=== PATIENT | male | born 1950 | race Caucasian/White ===

== ENCOUNTER 2016-04-17 11:41 | Inpatient (IN) | payer MEDICARE, OTHER ==
[~2016-04-17] VITALS: Ht 172.7 cm; Wt 80.4 kg
[~2016-04-17 11:41] MED LIST: ADVA250A INH; ALBU.5I NEB; ATOR40TA16 PO; BETA0.054 TOPICAL; COLA100C3 PO; FURO20TA PO; GABA800T PO; KAOP240C PO; METF1000 PO; METO50TA PO; PRED20 PO; SPIR25TA PO; THERM PO; VENTAER INH; VITA100T54 PO; WARF-58 PO; [UNRECOGNIZED DRUG - SUPPLY]
[2016-04-17 11:43] VITALS: BP 166/72; PULSE 87; RESP 12; TEMP 98.7; O2SAT 99
--- NOTE | 2016-04-17 16:03 | PD ---
HPI Chief Complaint: Skin Problem Time Seen by Provider: 15:01 Travel History International Travel<30 days: No Contact w/Intl Traveler<30days: No Traveled to known affect area: No History of Present Illness HPI This patient complains of a black and painful left great toe. Duration is one week. Started to get dark and black a week ago but has progressively worsened throughout. No injury. Denies fever. He has history of severe vascular disease. He's had bypass grafting and aortic bypass by Dr. Trevino he reports in 2013. He is on Coumadin for history of atrial fibrillation. He's had no chest pain or presyncopal symptoms. Accu-Chek 109. Symptoms severity is moderate to severe. No alleviating factors PFSH Past Medical History Hx Anticoagulant Therapy: Yes (WARFARIN) Arthritis: Yes Asthma: No Autoimmune Disease: No Anxiety: Yes Depression: Yes Heart Rhythm Problems: Yes Cancer: Yes (skin cancer LEFT WRIST) Cardiac Catheterization: Yes (CAD) Cardiovascular Problems: Yes (BYPASS) High Cholesterol: Yes Chemotherapy: No Chest Pain: Yes Congestive Heart Failure: Yes COPD: Yes Cerebrovascular Accident: Yes (TIA) Diabetes: Yes Diminished Hearing: No Endocrine: Yes Gastrointestinal Disorders: Yes GERD: No Genitourinary: Yes Headaches: No Hiatal Hernia: No Hypertension: Yes Immune Disorder: No Implanted Vascular Access Dvce: No Kidney Stones: Yes (25+ years ago) Musculoskeletal: Yes Neurologic: Yes Psychiatric: Yes Reproductive: No Respiratory: Yes Immunizations Current: Yes Migraines: No Radiation Therapy: No Renal Failure: No Seizures: Yes (as a child) Sickle Cell Disease: No Sleep Apnea: Yes Thyroid Disease: No Ulcer: No PNEUMOCCOCAL Vaccine (Year): 1 Past Surgical History Abdominal Surgery: Yes (aortic aneurysm repair) AICD: No Arteriovenous Shunt: No Cardiac Surgery: Yes (CABG x4 Mar 2014) Coronary Artery Bypass Graft: Yes Ear Surgery: No Endocrine Surgery: No Eye Surgery: No Genitourinary Surgery: No Gynecologic Surgery: No Insulin Pump: No Joint Replacement: No Neurologic Surgery: No Oral Surgery: No Pacemaker: No Thoracic Surgery: Yes Other Surgery: Yes (SKIN CANCER REMOVED) Social History Alcohol Use: Yes (2-6 BEERS DAILY) Tobacco Use: Yes (ONE PPD) Substance Use: No Allergies-Medications (Allergen,Severity, Reaction): Coded Allergies: Ceclor (Verified Allergy, Intermediate, rash, 04/17/16) Reported Meds & Prescriptions Reported Meds & Active Scripts Active Gabapentin 800 Mg Tab 800 Mg PO TID Ventolin Hfa 18 GM Inh (Albuterol Sulfate) 90 Mcg/Act Aer 2 Puff INH Q4-6H PRN Betamethasone Dipropionate Topical 0.05% Oint 1 Applic TOPICAL BID Warfarin 3 Mg Tab 3 Mg PO DAILY Szymanski 3 MG, M 3 MG, Tu 0 MG, W 3 MG, Th 3 MG, F 3 MG, Sa 3 MG Advair Diskus Inh (Fluticasone-Salmeterol Inh) 250-50 Mcg/Blist Aer 1 Puff INH BID Rinse mouth after use. Metformin (Metformin HCl) 1,000 Mg Tab 1,000 Mg PO BIDPC With meals Reported Vitamin B-1 (Thiamine HCl) 100 Mg Tab 100 Mg PO DAILY Colace (Docusate Sodium) 100 Mg Cap 100 Mg PO BID PRN Surfak (Docusate Calcium) 240 Mg Cap 240 Mg PO DAILY Albuterol Neb (Albuterol Sulfate) 2.5 Mg/0.5 Ml Neb 2.5 Mg NEB TID NEB PRN Note: The Albuterol Sulfate Inhalation Solution is concentrated and must be diluted. Read complete instructions carefully before using. Metoprolol Tartrate 50 Mg Tab 50 Mg PO BID Thera M Plus (Multivitamins/Minerals Therapeutic) 1 Tab 1 Tab PO DAILY Atorvastatin (Atorvastatin Calcium) 40 Mg Tab 40 Mg PO HS Spironolactone 25 Mg Tab 25 Mg PO DAILY Furosemide 20 Mg Tab 20 Mg PO DAILY Review of Systems General / Constitutional: No: Fever Eyes: No: Visual changes HENT: No: Headaches Cardiovascular: Positive: Edema, No: Chest Pain or Discomfort Respiratory: No: Shortness of Breath Gastrointestinal: No: Abdominal Pain Genitourinary: No: Dysuria Musculoskeletal: Positive: Edema, Pain Skin: No Rash Neurologic: Positive: Sensory Disturbance, No: Weakness Psychiatric: No: Depression Endocrine: No: Polydipsia Hematologic/Lymphatic: No: Easy Bruising Physical Exam Narrative GENERAL: Well-nourished, well-developed patient in no apparent distress. SKIN: Warm and dry. HEAD: Atraumatic. Normocephalic. EYES: Pupils equal and round. No scleral icterus. No injection or drainage. ENT: No nasal bleeding or discharge. Mucous membranes pink and moist. NECK: Trachea midline. No JVD. CARDIOVASCULAR: Regular rate and rhythm. No murmur appreciated. RESPIRATORY: No accessory muscle use. Clear to auscultation. Breath sounds equal bilaterally. GASTROINTESTINAL: Abdomen soft, non-tender, nondistended. Hepatic and splenic margins not palpable. Well-healed surgical scars. He is readily palpable femoral pulses bilaterally. MUSCULOSKELETAL: No obvious deformities. No clubbing. No cyanosis. No edema. Cannot palpate pulses in either foot probably due to significant edema. He does have readily dopplerable pulses in both feet, in both dorsalis pedis and posterior tibial locations. Patient's left great toe is entirely blackened. Medial aspect of the second toe is also black as is the webspace between toes # 1 and 2. There is a scant honey crusting in the region but no fluctuance or active drainage. Has symmetric hyperpigmentation stasis to the level of midshin NEUROLOGICAL: Awake and alert. No obvious cranial nerve deficits. Motor grossly within normal limits. Normal speech. PSYCHIATRIC: Appropriate mood and affect; insight and judgment normal. Data Data Last Documented VS Vital Signs Date Time Temp Pulse Resp B/P Pulse Ox O2 Delivery O2 Flow Rate FiO2 04/17/16 16:05 83 18 147/71 100 Room Air 04/17/16 11:43 98.7 Orders Complete Blood Count With Diff (04/17/16 15:08) Basic Metabolic Panel (Bmp) (04/17/16 15:08) Prothrombin Time / Inr (Pt) (04/17/16 15:08) Act Partial Throm Time (Ptt) (04/17/16 15:08) Blood Glucose (04/17/16 15:08) Iv Access Insert/Monitor (04/17/16 15:08) Enoxaparin Inj (Lovenox Inj) (04/17/16 17:15) Ondansetron Inj (Zofran Inj) (04/17/16 17:15) Morphine Inj (Morphine Inj) (04/17/16 17:15) Cta Runoff W Iv Contrast W 3d (04/17/16 ) Admit Order (Ed Use Only) (04/17/16 17:04) Labs Laboratory Tests Test 04/17/16 15:45 White Blood Count 10.5 TH/MM3 Red Blood Count 3.65 MIL/MM3 Hemoglobin 12.5 GM/DL Hematocrit 35.6 % Mean Corpuscular Volume 97.4 FL Mean Corpuscular Hemoglobin 34.3 PG Mean Corpuscular Hemoglobin 35.2 % Concent Red Cell Distribution Width 14.1 % Platelet Count 216 TH/MM3 Mean Platelet Volume 8.1 FL Neutrophils (%) (Auto) 79.6 % Lymphocytes (%) (Auto) 10.1 % Monocytes (%) (Auto) 7.7 % Eosinophils (%) (Auto) 2.1 % Basophils (%) (Auto) 0.5 % Neutrophils # (Auto) 8.3 TH/MM3 Lymphocytes # (Auto) 1.1 TH/MM3 Monocytes # (Auto) 0.8 TH/MM3 Eosinophils # (Auto) 0.2 TH/MM3 Basophils # (Auto) 0.1 TH/MM3 CBC Comment DIFF FINAL Differential Comment Prothrombin Time 20.4 SEC Prothromb Time International 1.8 RATIO Ratio Activated Partial 37.4 SEC Thromboplast Time Sodium Level 120 MEQ/L Potassium Level 5.8 MEQ/L Chloride Level 87 MEQ/L Carbon Dioxide Level 27.5 MEQ/L Anion Gap 6 MEQ/L Blood Urea Nitrogen 8 MG/DL Creatinine 0.70 MG/DL Estimat Glomerular Filtration 114 ML/MIN Rate Random Glucose 72 MG/DL Calcium Level 9.1 MG/DL [facility] Medical Decision Making Medical Screen Exam Complete: Yes Emergency Medical Condition: Yes Medical Record Reviewed: Yes Differential Diagnosis Ischemic foot, stent thrombosis, embolus Narrative Course I have reviewed the patient's electronic medical record. Comp located medical history. He has A. fib and CAD with stents and also bypass grafting history IV placed CBC looks normal Metabolic profile shows significant hyponatremia of 120 with normal creatinine. He has history of hyponatremia which is chronic and his last was 124 INR on Coumadin is 1.8 I reviewed the case in detail with Dr. Trevino his vascular surgeon. He recommends hospital admission to the medical service and he will be consulted. He recommends CTA of the extremities with runoff which I have ordered. He recommends Lovenox therapy which I have also ordered. I've given him something for pain. I placed a call to the medical residents to discuss for admission Diagnosis Primary Impression: Lower limb ischemia Additional Impression: Atrial fibrillation Qualified Code: I48.0 - Paroxysmal atrial fibrillation Admitting Information Admitting Physician Requests: Admit Umair Patten MD Apr 17, 2016 16:03
[2016-04-17 16:05] VITALS: BP 147/71; PULSE 83; RESP 18; O2SAT 100
[2016-04-17 16:20] LABS: AUTOMATED NEUTROPHIL # 8.3 TH/MM3 (1.8-7.7); BASOPHIL # 0.1 TH/MM3 (0-0.2); BASOPHIL % 0.5 % (0.0-2.0); EOSINOPHIL # 0.2 TH/MM3 (0-0.4); EOSINOPHIL % 2.1 % (0.0-4.0); HEMATOCRIT 35.6 % (39.0-51.0); HEMO FLAGS DIFF FINAL; LYMPH % 10.1 % (9.0-44.0); LYMPHOCYTE # 1.1 TH/MM3 (1.0-4.8); MEAN CELL VOLUME 97.4 FL (80.0-100.0); MEAN CORPUSCULAR HEMOGLOBIN 34.3 PG (27.0-34.0); MEAN CORPUSCULAR HGB CONC 35.2 % (32.0-36.0); MONO % 7.7 % (0.0-8.0); NEUT % 79.6 % (16.0-70.0); PLATELET COUNT 216 TH/MM3 (150-450); RED BLOOD COUNT 3.65 MIL/MM3 (4.50-5.90); RED CELL DISTRIBUTION WIDTH 14.1 % (11.6-17.2); WHITE BLOOD COUNT 10.5 TH/MM3 (4.0-11.0)
[2016-04-17 16:30] LABS: APTT (PATIENT) 37.4 SEC (24.3-30.1); INTERNATIONAL NORMALIZED RATIO 1.8 RATIO; PROTHROMBIN TIME - PATIENT 20.4 SEC (9.8-11.6)
[2016-04-17 16:48] LABS: BICARBONATE 27.5 MEQ/L (21.0-32.0); POTASSIUM 5.8 MEQ/L (3.5-5.1)
[2016-04-17] MEDS ORDERED: ONDANSETRON HCL 4 MG/2 ML VIAL IV ONE (17:15)
[2016-04-17] MEDS ORDERED: MORPHINE SULFATE 4 MG/ML INJ IV PUSH ONE (17:15)
[2016-04-17] MEDS ORDERED: ENOXAPARIN SODIUM 100 MG/ML SYRINGE SQ ONE (17:15)
--- NOTE | 2016-04-17 17:37 | HHI.HP ---
[facility] Service Family Medicine Primary Care Physician Bere Wood MD Admission Diagnosis necrotic L great toe, PAD Diagnoses: Chief Complaint: Black toe International Travel<30 Days: No Contact w/Intl Traveler<30days: No Known Affected Area: No History of Present Illness Patient is a 65-year-old male with a past medical history significant for PAD s/ p femoropopliteal bilateral, atrial fibrillation, CAD s/p CABG, and DM type II who presents today with a black toe. Patient states that his left great toe started looking darker about 2 weeks ago. For the past week it turned black. The toe is very painful, and he rates pain 10/10. The pain consists of a sharpness that comes and goes and a pain "that is always there" as well. He notes that the toe has started to leak a bloody fluid. He received morphine in the ED which is starting to help his pain. He follows with Dr. Trevino for extensive history of PAD. He denies any fever, chills, nausea, vomiting. He has had diarrhea for the past month that he describes as watery and nonbloody. Review of Systems Constitutional: DENIES: Fever, Chills Eyes: DENIES: Blurred vision Respiratory: COMPLAINS OF: Wheezing, DENIES: Cough, Shortness of breath Cardiovascular: DENIES: Chest pain Gastrointestinal: COMPLAINS OF: Diarrhea, DENIES: Abdominal pain, Black stools , Bloody stools, Constipation, Nausea, Vomiting Musculoskeletal: COMPLAINS OF: Muscle aches Integumentary: COMPLAINS OF: Abnormal pigmentation Hematologic/lymphatic: DENIES: Bruising Neurologic: DENIES: Headache Past Family Social History Past Medical History Cardiomyopathy- catheter July 2014 EF 25% patent bypass grafts. 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 GI bleed Atrial fibrillation, paroxysmal, on coumadin. History of intubation X 3 Childhood epilepsy Diabetes mellitus Tobacco abuse Questionable alcohol abuse Cardiology: Dr. Gary GI: Dr. Burgos Physiatry: Dr. Taveras Past Surgical History CABG x 3 Complex vascular surgery with Dr. 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 dieulafoy lesions fulguration - october 2014 Tonsillectomy Cholecystectomy Reported Medications Reported Meds & Active Scripts Active Gabapentin 800 Mg Tab 800 Mg PO TID Ventolin Hfa 18 GM Inh (Albuterol Sulfate) 90 Mcg/Act Aer 2 Puff INH Q4-6H PRN Betamethasone Dipropionate Topical 0.05% Oint 1 Applic TOPICAL BID Warfarin 3 Mg Tab 3 Mg PO DAILY Szymanski 3 MG, M 3 MG, Tu 0 MG, W 3 MG, Th 3 MG, F 3 MG, Sa 3 MG Advair Diskus Inh (Fluticasone-Salmeterol Inh) 250-50 Mcg/Blist Aer 1 Puff INH BID Rinse mouth after use. Metformin (Metformin HCl) 1,000 Mg Tab 1,000 Mg PO BIDPC With meals Reported Vitamin B-1 (Thiamine HCl) 100 Mg Tab 100 Mg PO DAILY Colace (Docusate Sodium) 100 Mg Cap 100 Mg PO BID PRN Surfak (Docusate Calcium) 240 Mg Cap 240 Mg PO DAILY Albuterol Neb (Albuterol Sulfate) 2.5 Mg/0.5 Ml Neb 2.5 Mg NEB TID NEB PRN Note: The Albuterol Sulfate Inhalation Solution is concentrated and must be diluted. Read complete instructions carefully before using. Metoprolol Tartrate 50 Mg Tab 50 Mg PO BID Thera M Plus (Multivitamins/Minerals Therapeutic) 1 Tab 1 Tab PO DAILY Atorvastatin (Atorvastatin Calcium) 40 Mg Tab 40 Mg PO HS Spironolactone 25 Mg Tab 25 Mg PO DAILY Furosemide 20 Mg Tab 20 Mg PO DAILY Allergies: Coded Allergies: Ceclor (Verified Allergy, Intermediate, rash, 04/17/16) Active Ordered Medications Current Medications Medications (Trade) Dose Ordered Sig/Lindsey Route Start Time Stop Time Status Last Admin (Lipitor) 40 mg HS PO 04/17/16 21:00 (Surfak) 240 mg DAILY PO 04/18/16 09:00 (Colace) 100 mg BID PRN PO 04/17/16 18:00 (Lasix) 20 mg DAILY PO 04/18/16 09:00 (Neurontin) 800 mg TID PO 04/17/16 18:00 (Lopressor) 50 mg BID PO 04/17/16 21:00 (Theragran M Tab) 1 tab DAILY PO 04/18/16 09:00 (Aldactone) 25 mg DAILY PO 04/18/16 09:00 (Vitamin B1) 100 mg DAILY PO 04/18/16 09:00 (Symbicort 160-4.5 Inh) 2 puff BID INH 04/17/16 21:00 (Narcan Inj) 0.4 mg UNSCH PRN IV 04/17/16 18:00 Family History Mother: of unknown cancer Father: of unknown cancer Social History Tobacco: 1ppd x 50 years Alcohol: 2-6 beers/day Drug Use: None Lives alone. Physical Exam Vital Signs Vital Signs Date Time Temp Pulse Resp B/P Pulse Ox O2 Delivery O2 Flow Rate FiO2 04/17/16 16:05 83 18 147/71 100 Room Air 04/17/16 11:43 98.7 87 12 166/72 99 Room Air Physical Exam GENERAL: This is an overweight male patient who appears to be in pain. SKIN: Cool and dry. Sloughing skin and hair loss on lower extremities bilaterally. Necrotic left great toe and half of left second toe. Some serous drainage present on second toe. HEAD: Atraumatic. Normocephalic. No temporal or scalp tenderness. EYES: Pupils equal round and reactive. Extraocular motions intact. No scleral icterus. No injection or drainage. ENT: Nose without bleeding, purulent drainage or septal hematoma. Throat without erythema, tonsillar hypertrophy or exudate. Uvula midline. Airway patent. NECK: Trachea midline. No JVD or lymphadenopathy. Supple, nontender, no meningeal signs. CARDIOVASCULAR: Regular rate and rhythm without murmurs, gallops, or rubs. RESPIRATORY: Coarse breath sounds bilaterally. Inspiratory and expiratory wheezes. Breath sounds equal bilaterally. GASTROINTESTINAL: Abdomen soft, non-tender, nondistended. No hepato-splenomegaly , or palpable masses. No guarding. MUSCULOSKELETAL: 2+ pitting edema in lower extremities bilaterally. No joint tenderness, effusion, or edema noted. No calf tenderness. NEUROLOGICAL: Awake and alert. Cranial nerves II through XII intact. Normal speech. Laboratory Laboratory Tests Test 04/17/16 15:45 White Blood Count 10.5 Red Blood Count 3.65 Hemoglobin 12.5 Hematocrit 35.6 Mean Corpuscular Volume 97.4 Mean Corpuscular Hemoglobin 34.3 Mean Corpuscular Hemoglobin 35.2 Concent Red Cell Distribution Width 14.1 Platelet Count 216 Mean Platelet Volume 8.1 Neutrophils (%) (Auto) 79.6 Lymphocytes (%) (Auto) 10.1 Monocytes (%) (Auto) 7.7 Eosinophils (%) (Auto) 2.1 Basophils (%) (Auto) 0.5 Neutrophils # (Auto) 8.3 Lymphocytes # (Auto) 1.1 Monocytes # (Auto) 0.8 Eosinophils # (Auto) 0.2 Basophils # (Auto) 0.1 CBC Comment DIFF FINAL Differential Comment Prothrombin Time 20.4 Prothromb Time International 1.8 Ratio Activated Partial 37.4 Thromboplast Time Sodium Level 120 Potassium Level 5.8 Chloride Level 87 Carbon Dioxide Level 27.5 Anion Gap 6 Blood Urea Nitrogen 8 Creatinine 0.70 Estimat Glomerular Filtration 114 Rate Random Glucose 72 Calcium Level 9.1 Result Diagram: 04/17/16 1545 04/17/16 154 Assessment and Plan Assessment and Plan Patient is a 65-year-old male with a past medical history significant for PAD s/ p femoropopliteal bilateral, atrial fibrillation, CAD s/p CABG, and DM type II who presents today with a black toe and is admitted for a gangrenous great left toe. Code Status Full Code Discussed Condition With dw Dr. Kendall and Dr. Egan Problem List: (1) Gangrenous toe Status: Acute Plan: Physical exam significant for necrotic great left toe and portion of second toe. Plan: - Consult Vascular surgery, Dr. Trevino * Admit to Inpatient * Recommends CTA runoff with IV contrast. * Hold Coumadin, therapeutic Lovenox (2) PAD (peripheral artery disease) Status: Chronic Plan: Severe history of multiple extensive and complex surgeries (3) COPD (chronic obstructive pulmonary disease) Status: Chronic Plan: Wheezing on exam. O2 sat 100% on RA. Obtain CXR. Continue home Advair Albuterol neb Q2H PRN (4) CHF (congestive heart failure) Status: Acute Plan: EF 2014 25% Continue home dose of lasix 20mg PO daily and spironolactone 25mg PO daily (5) CAD (coronary artery disease) Status: Acute Plan: Cardiac catheterization July 2014 showing EF of 25%. Severe three- vessel coronary disease Patent 3 out of 3 bypass grafts Aspirin 81 mg dc'ed 05/24 after colonoscopy due to continued melena Continue home Atorvastatin (6) DM type 2 (diabetes mellitus, type 2) Status: Chronic Plan: Hold home metformin. - Accu-Cheks with sliding scale insulin - Consult perioperative educator and dietitian - Diabetic diet (7) Atrial fibrillation Status: Chronic Plan: Hold home Coumadin INR subtherapeutic at 1.8 on admission Per Vascular Surgery recommendations, hold Coumadin and start Lovenox 90mg (1mg/ kg) SQ Q12H (8) Nutrition, metabolism, and development symptoms Status: Acute Plan: Fluids: Maintenance with NS @ 128ml/hr Electrolytes: Hyponatremia of 120, hyperkalemia 5.8 on admission. Obtain EKG. Fluids as above. Nutrition: Heart Healthy 1800 ADA cons carb DVT PPx: On therapeutic Lovenox Physician Certification 2 Midnight Certification Type: Admission for Inpatient Services Order for Inpatient Services The services are ordered in accordance with Medicare regulations or non- Medicare payer requirements, as applicable. In the case of services not specified as inpatient-only, they are appropriately provided as inpatient services in accordance with the 2-midnight benchmark. Estimated LOS (days): 2 days is the estimated time the patient will need to remain in the hospital, assuming treatment plan goals are met and no additional complications. Post-Hospital Plan: Home Problem Qualifiers (1) COPD (chronic obstructive pulmonary disease): Qualified Code: J43.1 - Panlobular emphysema (2) CHF (congestive heart failure): Qualified Code: I50.9 - Congestive heart failure, unspecified congestive heart failure chronicity, unspecified congestive heart failure type (3) CAD (coronary artery disease): Qualified Code: I25.810 - Coronary artery disease involving coronary bypass graft of absent[place] heart without angina pectoris (4) DM type 2 (diabetes mellitus, type 2): Qualified Code: E11.9 - Type 2 diabetes mellitus without complication, without long-term current use of insulin (5) Atrial fibrillation: Qualified Code: I48.2 - Chronic atrial fibrillation Freda Rodriguez MD R2 Apr 17, 2016 17:37
[2016-04-17] MEDS ORDERED: IOHEXOL 350 MG/ML 10 ML VIAL (for RAD DIAG) IV ONE (17:57)
[2016-04-17] MEDS ORDERED: RESP: ALBUTEROL CONC 2.5 MG/0.5 ML NEB NEB PRN (18:00)
[2016-04-17] MEDS ORDERED: NALOXONE HCL 0.4 MG/ML AMP IV PRN ×2 (18:00→18:15)
[2016-04-17] MEDS ORDERED: DOCUSATE SODIUM 100 MG CAP PO PRN (18:00)
[2016-04-17] MEDS: GABAPENTIN 400 MG CAP PO SCH (18:10)
[2016-04-17] MEDS ORDERED: ACETAMINOPHEN 325 MG TAB PO PRN (18:15)
[2016-04-17] MEDS ORDERED: GLUCAGON 1 MG/ML VIAL OTHER PRN (18:15)
[2016-04-17] MEDS ORDERED: DEXTROSE 50% IN WATER 50 ML VIAL(D50) IV PUSH PRN (18:15)
[2016-04-17] MEDS ORDERED: ONDANSETRON HCL 4 MG/2 ML VIAL IVP PRN (18:15)
--- NOTE | 2016-04-17 18:30 | RADRPT ---
EXAM DATE/TIME: 04/17/2016 18:20 [facility] COMPARISON: CHEST PA & LAT, March 23, 2014, 17:01. INDICATIONS : COPD MEDICAL HISTORY : Chronic obstructive pulmonary disease. Emphysema. SURGICAL HISTORY : Triple bypass 2013, Aorta bypass 2014 ENCOUNTER: Initial ACUITY: 1 day PAIN SCORE: 5/10 LOCATION: Bilateral chest FINDINGS: Lungs are clear, median sternotomy wires are noted. Borderline cardiomegaly. Osseous structures are intact. CONCLUSION: No acute disease. Joao Stoddard MD on April 17, 2016 at 18:28 Board Certified Radiologist. This report was verified electronically.
[2016-04-17 19:06] LABS: INDIRECT BILIRUBIN 0.2 MG/DL (0.0-0.8); TOTAL BILIRUBIN ADULT 0.4 MG/DL (0.2-1.0)
[2016-04-17] MEDS: INSULIN ASPART SUPPLEMENTAL SCALE SQ SCH (21:00)
[2016-04-17] MEDS: SODIUM CHLOR 0.9% 1000 ML INJ 1,000 ML IV SCH (21:17)
[2016-04-17 21:25] VITALS: BP 123/85; PULSE 86; RESP 18; TEMP 98.9; O2SAT 97
[2016-04-17] MEDS: RESP: ALBUTEROL 2.5 MG/3 ML NEB (PRN) INH (21:42)
[2016-04-17 21:45] VITALS: O2SAT 97
[2016-04-17] MEDS: BUDESONIDE-FORMOTEROL 160/4.5 MCG INHALER INH SCH (22:33)
[2016-04-17] MEDS: ATORVASTATIN 40 MG TAB PO SCH (22:33)
[2016-04-17] MEDS: ACETAMINOPHEN/HYDROcodone 325 MG/10 MG TAB PO PRN (22:34)
[2016-04-17] MEDS: METOPROLOL TARTRATE 50 MG TAB PO SCH (22:34)
[2016-04-17 23:20] LABS: POTASSIUM 5.2 MEQ/L (3.5-5.1)
[2016-04-18] VITALS (10 sets, daily range): BP systolic 94–140; BP diastolic 51–77; PULSE 69–91; RESP 16–20; TEMP 98.1; O2SAT 93–98
[2016-04-18] MEDS: MORPHINE SULFATE 4 MG/ML INJ IV PRN ×2 (01:28→04:52)
[2016-04-18] MEDS: SODIUM CHLOR 0.9% 1000 ML INJ 1,000 ML IV SCH (03:15)
[2016-04-18] MEDS: RESP: ALBUTEROL 2.5 MG/3 ML NEB (PRN) INH (03:46)
[2016-04-18 05:22] LABS: AUTOMATED NEUTROPHIL # 4.5 TH/MM3 (1.8-7.7); BASOPHIL % 0.6 % (0.0-2.0); EOSINOPHIL # 0.1 TH/MM3 (0-0.4); EOSINOPHIL % 2.1 % (0.0-4.0); HEMATOCRIT 30.7 % (39.0-51.0); HEMO FLAGS DIFF FINAL; LYMPH % 17.9 % (9.0-44.0); LYMPHOCYTE # 1.2 TH/MM3 (1.0-4.8); MEAN CELL VOLUME 98.1 FL (80.0-100.0); MEAN CORPUSCULAR HEMOGLOBIN 33.6 PG (27.0-34.0); MEAN CORPUSCULAR HGB CONC 34.2 % (32.0-36.0); MONO % 10.5 % (0.0-8.0); NEUT % 68.9 % (16.0-70.0); PLATELET COUNT 173 TH/MM3 (150-450); RED BLOOD COUNT 3.13 MIL/MM3 (4.50-5.90); WHITE BLOOD COUNT 6.6 TH/MM3 (4.0-11.0)
[2016-04-18 05:47] LABS: BICARBONATE 24.8 MEQ/L (21.0-32.0)
[2016-04-18] MEDS: ENOXAPARIN SODIUM 100 MG/ML SYRINGE SQ SCH ×2 (06:17→18:28)
[2016-04-18] MEDS: INSULIN ASPART SUPPLEMENTAL SCALE SQ SCH ×4 (07:00→21:00)
[2016-04-18] MEDS ORDERED: NITROGLYCERIN 2% OINT 1 GM PACKET TOPICAL ONE (09:15)
--- NOTE | 2016-04-18 09:36 | RADRPT ---
EXAM DATE/TIME: 04/17/2016 17:47 [facility] COMPARISON: No previous studies available for comparison. INDICATIONS : Necrotic left great toe; evaluate for occlusion. IV CONTRAST: 100 cc Omnipaque 350 (iohexol) IV RADIATION DOSE: 28.8 CTDIvol (mGy) MEDICAL HISTORY : Cardiovascular disease. Hypertension. Diabetes mellitus type 2. SURGICAL HISTORY : None. ENCOUNTER: Initial ACUITY: 2 weeks PAIN SCALE: 7/10 LOCATION: Left Foot TECHNIQUE: Volumetric scanning was performed using a multi-row detector CT scanner. The data was post processed with a variety of visualization algorithms including full volume maximum intensity projection, multi -planar sliding thin slab reformation, curved planar reformation, and surface rendering techniques. Using automated exposure control and adjustment of the mA and/or kV according to patient size, radiat ion dose was kept as low as reasonably achievable to obtain optimal diagnostic quality images. FINDINGS: The patient is status post aortobifemoral bypass for aortoiliac occlusion. The bypass is widely paten t throughout. Looking at the aortic visceral vessels, the celiac is mildly stenotic. The SMA is paten t. Renal arteries are patent with accessory renal vessel on the left. In the left leg, the profunda is significantly diseased, however patent. The superficial femoral shereen ry is totally occluded. A severely diseased popliteal artery reconstitutes. Tibial vessels are intact with anterior tibial dominant. Multifocal moderate disease present in all 3 vessels. In the contralateral right leg, the profunda is patent and satisfactory in appearance. The superficia l femoral artery is severely diseased throughout. A small caliber popliteal artery is relatively more healthy in appearance and 3 patent calf vessels are present, all with patchy mild-moderate disease.. CONCLUSION: In the left leg of concern, inflow is satisfactory. Superficial femoral artery is totally occluded. T he popliteal reconstitutes however it is severely diseased throughout. Tibial vessels are patent, ant erior tibial dominant. David Lazcano MD on April 18, 2016 at 9:16 Board Certified Radiologist. This report was verified electronically.
[2016-04-18] MEDS: METOPROLOL TARTRATE 50 MG TAB PO SCH ×2 (10:04→20:56)
[2016-04-18] MEDS: FUROSEMIDE 20 MG TAB PO SCH (10:04)
[2016-04-18] MEDS: SPIRONOLACTONE 25 MG TAB PO SCH (10:04)
[2016-04-18] MEDS: BUDESONIDE-FORMOTEROL 160/4.5 MCG INHALER INH SCH ×2 (10:04→20:57)
[2016-04-18] MEDS: MULTIVITAMINS/MINERALS THERAPEUTIC TAB PO SCH (10:05)
[2016-04-18] MEDS: DOCUSATE CALCIUM 240 MG CAP PO SCH (10:05)
[2016-04-18] MEDS: GABAPENTIN 400 MG CAP PO SCH ×3 (10:05→18:29)
[2016-04-18] MEDS: THIAMINE HCL 100 MG TAB PO SCH (10:06)
--- NOTE | 2016-04-18 10:49 | HHI.FPPN ---
Subjective Remarks No acute events overnight. AFVSS. Voiding w/o difficulty. No BM- continue to monitor. C/o severe pain L foot. Continued wet cough, SOB, not changed from baseline. Denies f/c, CP/palpitations, abd pain. Discussed smoking cessation and decreasing alcohol consumption. Pt denies hx seizures, withdrawals: (Ninoska Egan MD R1) Objective Vitals Vital Signs Date Time Temp Pulse Resp B/P Pulse Ox O2 Delivery O2 Flow Rate FiO2 04/18/16 07:00 78 16 139/68 98 Room Air 04/18/16 05:36 95 21 04/18/16 04:45 84 18 140/66 96 Room Air 04/18/16 03:45 87 18 95/67 95 04/18/16 01:12 87 18 116/71 95 Room Air 04/18/16 00:10 87 18 94/57 95 Room Air 04/17/16 23:34 18 04/17/16 21:45 97 21 04/17/16 21:25 98.9 86 18 123/85 97 Room Air 04/17/16 16:05 83 18 147/71 100 Room Air 04/17/16 11:43 98.7 87 12 166/72 99 Room Air I/O 04/17/16 04/17/16 04/17/16 04/18/16 04/18/16 04/18/16 07:00 15:00 23:00 07:00 15:00 23:00 Intake Total 360 ml Output Total 650 ml 850 ml Balance -650 ml -850 ml 360 ml Intake Oral 360 ml Output Urine Total 650 ml 850 ml (Ninoska Egan MD R1) Result Diagram: 04/18/16 0437 04/18/16 0437 Imaging Last Impressions Chest X-Ray 04/17/16 1804 Signed Impressions: Service Date/Time: Sunday, April 17, 2016 18:20 - CONCLUSION: No acute disease. Joao Stoddard MD Aorta w/Runoff CTA 04/17/16 0000 Signed Impressions: Service Date/Time: Sunday, April 17, 2016 17:47 - CONCLUSION: In the left leg of concern, inflow is satisfactory. Superficial femoral artery is totally occluded. The popliteal reconstitutes however it is severely diseased throughout. Tibial vessels are patent, anterior tibial dominant. David Lazcano MD Objective Remarks CONST male, lying R side, in moderate pain DERM: Sloughing skin, diffuse erythema to [place], and hair loss on lower extremities bilaterally. Necrotic left great toe and half of left second toe. HEENT: PERRL. MMM. CV: RRR. No murmrus. RESP: Inspiratory and expiratory wheezing bilateral. Occasional wet cough. GI: Abdomen NDNT. MSK: 2+ pitting edema LE NEUROL: Grossly motor and sensory intact. PSYCH: Gruff, dismissive demeanor. Appears frustrated. Moderate insight. ( Ninoska Egan MD R1) A/P Assessment and Plan 65y male w PAD, Afib, CAD s/p CABG, DM2, tobacco abuse, alcoholism, presents with gangrenous L great toe Discharge Planning Days, pending possible surgery and recovery. Likely d/c HW vs other (will need PT to eval) (Ninoska Egan MD R1) Attending Attestation A detailed discussion with Dr Salcedo, Dr Rodriguez, Dr Egan and Dr Presley about patients admission was held this morning, patient was then seen and examined by the team, agree with the contents of this note,Assessment and Plan appropiate, See Orders. (Morales Kendall MD) Problem List: (1) Gangrenous toe Status: Acute Plan: PE significant necrotic great left toe and portion of second toe. Plan: - 04/18/15 Discussed care w Vascular surgery, Dr. Trevino * CTA runoff shows severe occlusions (Inflow satisfactory, but supf femoral artery totally concluded, severely diseased popliteal, tibial vessels patent) * Will need LLE bypass to salvage extremity Cardiology consulted regarding surgical clearance/risk assessment LLE bypass US venous mapping bilateral pending to assess salvageable veins for autologous bypass graft * Pain control: continue Gabapentin 800mg TID, change morphine 4mg IV q3h from PRN to ALYSSA * Hold Coumadin, continue therapeutic Lovenox * PT recommendation: HW * Apply Nitropaste daily (2) PAD (peripheral artery disease) Status: Chronic Plan: Severe. history of multiple extensive and complex surgeries -see plan for left gangrenous toe (3) COPD (chronic obstructive pulmonary disease) Status: Chronic Plan: Wheezing on exam. O2 sat 100% on RA. CXR: No acute process. Continue home Advair Albuterol neb Q2H PRN Breathing well on RA, oxygen supplementation when necessary for saturations 88%+ (4) CHF (congestive heart failure) Status: Acute Plan: EF 2014 25%. Continue home lasix 20mg PO daily Continue home spironolactone 25mg PO daily (5) CAD (coronary artery disease) Status: Acute Plan: Cardiac cath July 2014 showing EF of 25%. Severe three-vessel coronary disease. Patent 3/3 bypass grafts. Aspirin 81 mg dc'ed 05/24 after colonoscopy due to continued melena -Continue home Atorvastatin (6) DM type 2 (diabetes mellitus, type 2) Status: Chronic Plan: Hold home metformin. - Accu-Cheks with sliding scale insulin - Consult personal development educator and dietitian - Diabetic diet (7) Atrial fibrillation Status: Chronic Plan: Hold home Coumadin. INR subtherapeutic at 1.8 on admission. Per Vascular Surgery recommendations, hold Coumadin and start Lovenox 90mg (1mg/ kg) SQ Q12H (8) Tobacco abuse Status: Acute Plan: -Smoking cessation counseling provided Nicotine patch contraindicated due to PAD (9) Alcohol intake above recommended sensible limits Status: Chronic Plan: Denies history of seizures or withdrawals. -CIWA protocol -Decreased alcohol consumption recommended - daily multivitamin, vitamin B1 (10) Nutrition, metabolism, and development symptoms Status: Acute Plan: Fluids: PO Electrolytes: Hyponatremia of 120, hyperkalemia 5.8 on admission. Obtain EKG. Fluids as above. Nutrition: Heart Healthy 1800 ADA cons carb DVT PPx: On therapeutic Lovenox SDW: Dr Kendall, Dr. Salcedo (Ninoska Egan MD R1) Problem Qualifiers (1) COPD (chronic obstructive pulmonary disease): Qualified Code: J43.1 - Panlobular emphysema (2) CHF (congestive heart failure): Qualified Code: I50.9 - Congestive heart failure, unspecified congestive heart failure chronicity, unspecified congestive heart failure type (3) CAD (coronary artery disease): Qualified Code: I25.810 - Coronary artery disease involving coronary bypass graft of [place] heart without angina pectoris (4) DM type 2 (diabetes mellitus, type 2): Qualified Code: E11.9 - Type 2 diabetes mellitus without complication, without long-term current use of insulin (5) Atrial fibrillation: Qualified Code: I48.2 - Chronic atrial fibrillation Ninoska Egan MD R1 Apr 18, 2016 10:49 Morales Kendall MD Apr 18, 2016 16:34
[2016-04-18] MEDS: ACETAMINOPHEN/HYDROcodone 325 MG/5 MG TAB PO PRN (11:14)
[2016-04-18] MEDS: MORPHINE SULFATE 4 MG/ML INJ IV SCH ×4 (11:57→20:57)
--- NOTE | 2016-04-18 12:07 | RADRPT ---
EXAM DATE/TIME: 04/18/2016 11:11 [facility] COMPARISON: US LEG BILATERAL VENOUS DOPPLER, May 27, 2014, 8:57. INDICATIONS : Graft placement. MEDICAL HISTORY : Chronic obstructive pulmonary disease. Myocardial infarction. TIA. Coronary artery disease. Anticoag ulant therapy, Warfarin. Congestive heart failure. Atrial fibrillation. Diabetes. Skin cancer, SURGICAL HISTORY : Cholecystectomy.CABG Aortic aneurysm repair. Cardiac catheterization. Skin cancer removed. ENCOUNTER: Subsequent ACUITY: 1 day PAIN SCORE: 4/10 LOCATION: Bilateral legs. TECHNIQUE: Venous ultrasound of the left and right leg was performed from the inguinal ligament to the proximal calf. Real-time, color Doppler and spectral tracing, compression and augmentation techniques were us ed. FINDINGS: RIGHT LEG: There is normal compressibility of the deep venous system from the inguinal region to the proximal ca lf. No echogenic clot is seen in the lumen of the common femoral, femoral, popliteal, and posterior tibial veins. There is a normal response of the venous system to proximal and distal augmentation an d respiration. LEFT LEG: There is normal compressibility of the deep venous system from the inguinal region to the proximal ca lf. No echogenic clot is seen in the lumen of the common femoral, femoral, popliteal, and posterior tibial veins. There is a normal response of the venous system to proximal and distal augmentation an d respiration. CONCLUSION: No evidence of deep venous thrombosis. Saúl Hackett MD on April 18, 2016 at 12:04 Board Certified Radiologist. This report was verified electronically.
--- NOTE | 2016-04-18 12:11 | RADRPT ---
EXAM DATE/TIME: 04/18/2016 11:20 [facility] COMPARISON: No previous studies available for comparison. INDICATIONS : Graft placement. MEDICAL HISTORY : Myocardial infarction. Chronic obstructive pulmonary disease. TIA. Coronary artery disease. Anticoag ulant therapy, Warfarin. Congestive heart failure. Atrial fibrillation. Diabetes. Skin cancer, SURGICAL HISTORY : CABG Cholecystectomy. Aortic aneurysm repair. Cardiac catheterization. Skin cancer removed. ENCOUNTER: Initial ACUITY: 1 day PAIN SCORE: 0/10 LOCATION: Bilateral legs. GREATER SAPHENOUS VEIN THIGH: PROXIMAL: Right 4 mm Left 4 mm MID: Right 4 mm Left 3 mm DISTAL: Right 4 mm Left Non-visualized CALF: PROXIMAL: Right 3 mm Left Non-visualized MID: Right 2 mm Left Non-visualized DISTAL: Right 2 mm Left Non-visualized FINDINGS: The venous system of the lower extremities are patent by color Doppler imaging. Measurements of the leg veins (in mm) are listed above. CONCLUSION: The saphenous vein measurements are described above. Portions of the left saphenous v ein were not visualized as this was used for prior CABG procedure. Saúl Hackett MD on April 18, 2016 at 12:09 Board Certified Radiologist. This report was verified electronically.
--- NOTE | 2016-04-18 16:53 | MB ---
cc: NICOLE SCHAEFFER DATE OF CONSULTATION: 04/18/2016 DATE OF 1950 REASON FOR THE CONSULTATION Cardiac clearance. HISTORY OF PRESENT ILLNESS The patient is a 65-year-old white male with a history of coronary artery disease, COPD, diabetes, peripheral vascular disease, paroxysmal atrial fibrillation, resolved cardiomyopathy who presented to the hospital with an approximately two-week history of increasing gangrenous changes of his left big toe and to a lesser degree his left second toe. The patient states he is now being considered for amputation. He denies any recent chest pains, change in chronic shortness of breath, palpitations, dizziness, syncope, near-syncope, paroxysmal nocturnal dyspnea, orthopnea. For the most part he has been sedentary. PAST MEDICAL HISTORY 1. Dilated cardiomyopathy, possibly mostly nonischemic in origin. He had a heart catheterization 08/04/14 showing ejection fraction of 25% but with widely patent bypass grafts. A subsequent echo 01/20/15 showed ejection fraction of 60%. 2. History of acalculous cholecystitis necessitating biliary drain placement and subsequent cholecystectomy. 3. Coronary artery disease status post bypass surgery 03/30/2014 with a left internal mammary artery to the LAD, vein graft to the obtuse marginal, vein graft to the posterior descending artery. He had a suspected ST elevation myocardial infarction 08/04/14 at which time all of his bypass grafts were patent and coronary angiography showed normal left main, 60-70% proximal LAD, 80% mid LAD, 90% diffuse mid left circumflex disease, 90% ostial second obtuse marginal, totally occluded mid right coronary. He was treated medically. 4. Diabetes. 5. Hyperlipidemia. 6. Hypertension. 7. Paroxysmal atrial fibrillation. 8. History of respiratory failure July, mostly due to COPD and pneumonia. 9. Peripheral vascular disease status post left external iliac stent, bilateral femoral endarterectomies, bilateral profundoplasties, femoral-femoral and aortobifemoral bypasses 05/07/14. MEDICATIONS His cardiac medications at home - 1. Warfarin 3 mg six days of the week. 2. Metoprolol 50 mg b.i.d. 3. Atorvastatin 40 mg q.h.s. 4. Spironolactone 25 mg q.d. 5. Furosemide 20 mg q.d. ALLERGIES CECLOR. FAMILY HISTORY Noncontributory. SOCIAL HISTORY The patient smokes about a pack of cigarettes per day. He also drinks anywhere from two to six beers a day. REVIEW OF SYSTEMS As in the history of present illness otherwise negative or noncontributory. He also denies headache, visual changes, unilateral weakness or numbness, abdominal pain, melena, dyspepsia. PHYSICAL EXAMINATION VITAL SIGNS: Blood pressure 112/52 with a pulse of 68, respirations 18. GENERAL: He is a well-developed, well-nourished white male in no acute distress HEENT: Jugular venous pressure is very hard to assess. Carotid pulses are 2+ bilaterally and without bruits. CHEST: Reveals diffuse mild to moderate expiratory wheezes. CARDIAC: He has a regular rhythm and rate without definite S3, S4 or murmur. ABDOMEN: He has a soft, nontender abdomen. Bowel sounds are present. There is no definite hepatosplenomegaly. EXTREMITIES: Reveals 1+ pretibial edema. His left great toe and medial aspect of the left second toe are blackened with no definite drainage. LABORATORY DATA WBC 6.6, hemoglobin 10.5, platelets 173, potassium 5.0, sodium 127, BUN 9, creatinine 0.66, INR 1.8, WBC 6.6. IMAGING Chest x-ray shows no acute disease. EKG shows sinus rhythm, right bundle-branch block. IMPRESSION Overall stable cardiac status in this 65-year-old white male with a history of multiple medical problems including coronary artery disease, COPD, diabetes, paroxysmal atrial fibrillation, peripheral vascular disease, resolved cardiomyopathy now admitted with worsening peripheral vascular disease, currently being considered for amputation of his left great toe. I have been asked to provide cardiac clearance. Most recent cardiac catheterization findings from 08/04/14 are as described above. He has had no definite angina symptoms or congestive heart failure recently. He remains in sinus rhythm. Overall he is at acceptably low risk from a cardiac standpoint for surgery. RECOMMENDATIONS 1. Proceed with vascular surgery. 2. Minimize the patient's time off anticoagulation therapy as his thromboembolic risk with his paroxysmal atrial fibrillation is quite high. MD CLEVELAND Walters/PILAR /2:45 PM /4:35 PM VENKAT
[2016-04-18] MEDS: ACETAMINOPHEN/HYDROcodone 325 MG/10 MG TAB PO PRN ×2 (18:54→23:11)
[2016-04-18] MEDS: ATORVASTATIN 40 MG TAB PO SCH (20:56)
--- NOTE | 2016-04-18 22:35 | EKG ---
Date Performed: 04/17/2016 Time Performed: 21:07:08 PTAGE: 65 years EKG: Sinus rhythm INDETERMINATE AXIS RIGHT BUNDLE BRANCH BLOCK ABNORMAL ECG PREVIOUS TRACING : 01/24/2016 13.18 Compared to prior tracing no significant change DOCTOR: Antonio Du Interpretating Date/Time 04/18/2016 22:32:05
--- NOTE | 2016-04-18 23:59 | PD.VS.CON ---
History of Present Illness Chief Complaint: L toe necrosis Consult Requested by: ED History of Present Illness 65yo male with h/o PAD and ABF several years ago with >1m history of worsening L foot pain and toe necrosis. Painful at all times, especially at night. Toe necrotic but no drainage. No F/C. Past/Family/Social History Past Medical History HTN XOL CAD CHF (25%) DM A fib childhood sz Past Surgical History ABF CABG T&A [place] Social History + tob + EtOH Home Medications Active Scripts Gabapentin 800 Mg [id number] Mg PO TID #90 TAB Ref 6 Prov:Bere Wood MD 04/16/16 Albuterol 18 GM Inh (Ventolin Hfa 18 GM Inh)90 Mcg/Act Aer2 Puff INH Q4-6H PRN ( SHORTNESS OF BREATH) #1 INHALER Ref 0 Prov:Bere Wood MD 03/14/16 Betamethasone Dipropionate Topical 0.05% Oint1 Applic TOPICAL BID #15 GM Ref 3 Prov:Bere Wood MD 03/07/16 Warfarin 3 Mg Tab3 Mg PO DAILY #30 TAB Ref 3 Szymanski 3 MG, M 3 MG, Tu 0 MG, W 3 MG, Th 3 MG, F 3 MG, Sa 3 MG Prov:Bere Wood MD 02/28/16 Fluticasone-Salmeterol Inh (Advair Diskus Inh)250-50 Mcg/Blist Aer1 Puff INH BID #1 INHALER Ref 3 Rinse mouth after use. Prov:Bere Wood MD 02/22/16 Metformin 1,000 Mg Tab1,000 Mg PO BIDPC #60 TAB Ref 6 With meals Prov:Bere Wood MD 02/08/16 Reported Medications Thiamine (Vitamin B-1)100 Mg [id number] Mg PO DAILY Ref 0 03/07/16 Docusate Sodium (Colace)100 Mg Iii053 Mg PO BID PRN (Constipation) #60 CAP Ref 0 02/27/16 Docusate Calcium (Surfak)240 Mg Oah525 Mg PO DAILY #30 CAP Ref 0 02/08/16 Albuterol Neb 2.5 Mg/0.5 Ml Neb2.5 Mg NEB TID NEB PRN (SHORTNESS OF BREATH) #90 NEBULE Ref 0 Note: The Albuterol Sulfate Inhalation Solution is concentrated and must be diluted. Read complete instructions carefully before using. 02/08/16 Metoprolol Tartrate 50 Mg Tab50 Mg PO BID #60 TAB Ref 0 02/08/16 Multiple Vitamins W/ Minerals (Thera M Plus)1 Tab1 Tab PO DAILY Ref 0 02/08/16 Atorvastatin 40 Mg Tab40 Mg PO HS #30 TAB Ref 0 02/08/16 Spironolactone 25 Mg Tab25 Mg PO DAILY #30 TAB Ref 0 02/08/16 Furosemide 20 Mg Tab20 Mg PO DAILY #30 TAB Ref 0 02/08/16 Discontinued Reported Medications Prednisone 20 Mg Tab40 Mg PO DAILY Ref 0 02/08/16 Discontinued Scripts Gabapentin 800 Mg Hvw647 Mg PO TID #90 TAB Ref 0 Prov:Bere Wood MD 03/12/16 Coded Allergies: Ceclor (Verified Allergy, Intermediate, rash, 04/18/16) Review of Systems Constitutional: COMPLAINS OF: Fatigue, Change in appetite, DENIES: Fever, Chills Cardiovascular: DENIES: Chest pain Physical Exam Vitals/I&O Date Time Temp Pulse Resp B/P Pulse Ox O2 Delivery O2 Flow Rate FiO2 04/18/16 21:48 21 04/18/16 20:00 Room Air 04/18/16 20:00 98.1 82 20 138/64 94 04/18/16 15:03 16 04/18/16 14:59 91 16 116/77 94 Room Air 04/18/16 12:50 18 04/18/16 12:37 69 18 112/52 93 Room Air 04/18/16 11:08 72 16 107/51 95 Room Air 04/18/16 07:00 78 16 139/68 98 Room Air 04/18/16 05:36 95 21 04/18/16 04:45 84 18 140/66 96 Room Air 04/18/16 03:45 87 18 95/67 95 04/18/16 01:12 87 18 116/71 95 Room Air 04/18/16 00:10 87 18 94/57 95 Room Air 04/18/16 04/18/16 04/18/16 07:00 15:00 23:00 Intake Total 710 ml Output Total 850 ml 1000 ml Balance -850 ml -290 ml Neuro: alert oriented HEENT: NC/AT Neck: trachea midline Heart: reg rate, Lungs: nonlabored breathing Abdomen: healed midline incision, NT to palpation Vascular: palpable femoral pulses B nonpalpable pedal pulses Extremities: L LE with healed saphenectomy incision dependent rubor L foot and extreme ischemia of L foot with necrosis L great toe Laboratory Tests Test 04/18/16 04:37 White Blood Count 6.6 Red Blood Count 3.13 Hemoglobin 10.5 Hematocrit 30.7 Mean Corpuscular Volume 98.1 Mean Corpuscular Hemoglobin 33.6 Mean Corpuscular Hemoglobin 34.2 Concent Red Cell Distribution Width 14.0 Platelet Count 173 Mean Platelet Volume 8.1 Neutrophils (%) (Auto) 68.9 Lymphocytes (%) (Auto) 17.9 Monocytes (%) (Auto) 10.5 Eosinophils (%) (Auto) 2.1 Basophils (%) (Auto) 0.6 Neutrophils # (Auto) 4.5 Lymphocytes # (Auto) 1.2 Monocytes # (Auto) 0.7 Eosinophils # (Auto) 0.1 Basophils # (Auto) 0.0 CBC Comment DIFF FINAL Differential Comment Sodium Level 127 Potassium Level 5.0 Chloride Level 95 Carbon Dioxide Level 24.8 Anion Gap 7 Blood Urea Nitrogen 9 Creatinine 0.66 Estimat Glomerular Filtration 122 Rate Random Glucose 99 Calcium Level 8.5 Last 48 hours Impressions Lower Extremity Ultrasound 04/18/16 0000 Signed Impressions: Service Date/Time: Monday, April 18, 2016 11:11 - CONCLUSION: No evidence of deep venous thrombosis. Saúl Hackett MD Lower Extremity Ultrasound 04/18/16 0000 Signed Impressions: Service Date/Time: Monday, April 18, 2016 11:20 - CONCLUSION: The saphenous vein measurements are described above. Portions of the left saphenous vein were not visualized as this was used for prior CABG procedure. Saúl Hackett MD Chest X-Ray 04/17/16 1804 Signed Impressions: Service Date/Time: Sunday, April 17, 2016 18:20 - CONCLUSION: No acute disease. Joao Stoddard MD Aorta w/Runoff CTA 04/17/16 0000 Signed Impressions: Service Date/Time: Sunday, April 17, 2016 17:47 - CONCLUSION: In the left leg of concern, inflow is satisfactory. Superficial femoral artery is totally occluded. The popliteal reconstitutes however it is severely diseased throughout. Tibial vessels are patent, anterior tibial dominant. David Lazcano MD Assessment and Plan Assessment: (1) Cellulitis of both lower extremities Status: Acute (2) PAD (peripheral artery disease) Status: Chronic Plan 1. Needs revascularization of L LE for attempt at limb salvage. Based on CT, ABF is patent but outflow (PFA) stenosis. Needs L groin reconstruction and distal bypass 2. Angiogram L LE scheduled for 04/19 in afternoon for planning. 3. Tentative bypass on Saturday: groin reconstruction, distal bypass, toe amputation 4. ASA/statin/beta allyn Saúl Latif MD Apr 18, 2016 23:59
[2016-04-19] VITALS (12 sets, daily range): BP systolic 103–144; BP diastolic 53–74; PULSE 70–97; RESP 16–24; TEMP 97.2–99; O2SAT 90–97
[2016-04-19] MEDS: MORPHINE SULFATE 4 MG/ML INJ IV SCH ×8 (00:06→20:42)
[2016-04-19] MEDS: RESP: ALBUTEROL 2.5 MG/3 ML NEB (PRN) INH ×2 (05:46→19:55)
[2016-04-19 05:57] LABS: HEMATOCRIT 28.5 % (39.0-51.0); MEAN CELL VOLUME 98.5 FL (80.0-100.0); MEAN CORPUSCULAR HGB CONC 34.6 % (32.0-36.0); PLATELET COUNT 160 TH/MM3 (150-450); RED CELL DISTRIBUTION WIDTH 14.2 % (11.6-17.2); REVIEW FLAG FINAL; WHITE BLOOD COUNT 7.7 TH/MM3 (4.0-11.0)
[2016-04-19] MEDS: ENOXAPARIN SODIUM 100 MG/ML SYRINGE SQ SCH ×2 (06:11→17:29)
[2016-04-19] MEDS: INSULIN ASPART SUPPLEMENTAL SCALE SQ SCH ×4 (06:12→20:42)
[2016-04-19 06:17] LABS: BICARBONATE 26.4 MEQ/L (21.0-32.0); POTASSIUM 5.3 MEQ/L (3.5-5.1)
--- NOTE | 2016-04-19 08:27 | PD.CARD.PN ---
Subjective Subjective Remarks Denies dyspnea, angina, PND. Mildly lightheaded. No palpitations. Objective Medications Item Value Date Time Furosemide 20 mg 04/18/16 0900 (Lasix) DAILY/PO 04/18/16 1004 Spironolactone 25 mg 04/18/16 0900 (Aldactone) DAILY/PO 04/18/16 1004 Enoxaparin Sodium 90 mg 04/18/16 0600 (Lovenox Inj) Q12H/SQ 04/19/16 0611 Atorvastatin 40 mg 04/17/16 2100 Calcium HS/PO 04/18/162055 (Lipitor) Metoprolol 50 mg 04/17/16 2100 Tartrate BID/PO 04/18/162055 (Lopressor) Vital Signs / I&O Vital Signs Date Time Temp Pulse Resp B/P Pulse Ox O2 Delivery O2 Flow Rate FiO2 04/19/16 05:50 90 21 04/19/16 04:13 97.2 85 20 110/59 92 04/19/16 00:00 Room Air 04/19/16 00:00 99.0 78 20 133/69 94 04/18/16 21:48 21 04/18/16 20:00 81 04/18/16 20:00 Room Air 04/18/16 20:00 98.1 82 20 138/64 94 04/18/16 15:03 16 04/18/16 14:59 91 16 116/77 94 Room Air 04/18/16 12:50 18 04/18/16 12:37 69 18 112/52 93 Room Air 04/18/16 11:08 72 16 107/51 95 Room Air I/O 04/18/16 04/18/16 04/18/16 04/19/16 04/19/16 04/19/16 07:00 15:00 23:00 07:00 15:00 23:00 Intake Total 710 ml 360 ml 360 ml Output Total 850 ml 1000 ml 300 ml 375 ml Balance -850 ml -290 ml 60 ml -15 ml Intake Oral 710 ml 360 ml 360 ml Output Urine Total 850 ml 1000 ml 300 ml 375 ml # Voids 2 # Bowel Movements 0 Physical Exam GENERAL: Well developed, well nourished. No acute distress. HEENT: Jugular venous pressure is normal. CHEST: Diminished breath sounds diffusely. Few scattered rhonchi. CARDIAC: Regular rate and rhythm without S3, S4. I/ systolic murmur lower left sternal border. ABDOMEN: Soft, nontender, no hepatosplenomegaly. Bowel sounds present. EXTREMITIES: Trace pretibial edema. Unchanged blackened left great toe and medial aspect of left 2nd toe. Laboratory Laboratory Tests Test 04/19/16 05:09 White Blood Count 7.7 TH/MM3 Red Blood Count 2.90 MIL/MM3 Hemoglobin 9.9 GM/DL Hematocrit 28.5 % Mean Corpuscular Volume 98.5 FL Mean Corpuscular Hemoglobin 34.0 PG Mean Corpuscular Hemoglobin 34.6 % Concent Red Cell Distribution Width 14.2 % Platelet Count 160 TH/MM3 Mean Platelet Volume 8.1 FL Sodium Level 127 MEQ/L Potassium Level 5.3 MEQ/L Chloride Level 96 MEQ/L Carbon Dioxide Level 26.4 MEQ/L Anion Gap 5 MEQ/L Blood Urea Nitrogen 9 MG/DL Creatinine 0.67 MG/DL Estimat Glomerular Filtration 119 ML/MIN Rate Random Glucose 80 MG/DL Calcium Level 8.7 MG/DL Assessment and Plan Problem List: (1) CAD (coronary artery disease) Assessment and Plan: Stable CAD status. No recent angina. Patient cleared for vascular surgery from a cardiac standpoint. Will f/u as needed rest of hospital stay. (2) Cardiomyopathy Assessment and Plan: Patient with history of EF 25% 07/2014 with resolution of cardiomyopathy by 01/2015 when EF 60% by echo. Patient stable, compensated. No evidence for CHF. Cont beta allyn, diuretic. As I recall patient did not tolerate JOSEFINA-I therapy in the past. (3) Paroxysmal atrial fibrillation Assessment and Plan: Stable. No definite significant recurrent atrial fibrillation. Rec minimizing time off anticoagulation therapy. (4) Hypertension Assessment and Plan: Stable. Mostly normotensive. (5) PAD (peripheral artery disease) Assessment and Plan: Stable overnight. Treatment plans as per Dr. Latif. Code Status full code Discussed Condition With patient Problem Qualifiers (1) CAD (coronary artery disease): Qualified Code: I25.10 - Coronary artery disease involving [place] coronary artery of [place] heart without angina pectoris (2) Cardiomyopathy: Qualified Code: I42.8 - Other cardiomyopathy (3) Hypertension: Qualified Code: I10 - Essential hypertension Rich Gary MD Apr 19, 2016 08:27
--- NOTE | 2016-04-19 08:45 | HHI.FPPN ---
Subjective Remarks No acute events overnight. AFVSS. Pt reports better pain control and SOB that improved with breathing treatment. Denies chest pain, palpitations. Voiding without difficulty. Had diarrhea for several days prior, reports resolved, no diarrhea/BM yesterday or today. Eating, ambulating without difficulty Objective Vitals Vital Signs Date Time Temp Pulse Resp B/P Pulse Ox O2 Delivery O2 Flow Rate FiO2 04/19/16 05:50 90 21 04/19/16 04:13 97.2 85 20 110/59 92 04/19/16 00:00 Room Air 04/19/16 00:00 99.0 78 20 133/69 94 04/18/16 21:48 21 04/18/16 20:00 81 04/18/16 20:00 Room Air 04/18/16 20:00 98.1 82 20 138/64 94 04/18/16 15:03 16 04/18/16 14:59 91 16 116/77 94 Room Air 04/18/16 12:50 18 04/18/16 12:37 69 18 112/52 93 Room Air 04/18/16 11:08 72 16 107/51 95 Room Air I/O 04/18/16 04/18/16 04/18/16 04/19/16 04/19/16 04/19/16 07:00 15:00 23:00 07:00 15:00 23:00 Intake Total 710 ml 360 ml 360 ml Output Total 850 ml 1000 ml 300 ml 375 ml Balance -850 ml -290 ml 60 ml -15 ml Intake Oral 710 ml 360 ml 360 ml Output Urine Total 850 ml 1000 ml 300 ml 375 ml # Voids 2 # Bowel Movements 0 Result Diagram: 04/19/16 0509 04/19/16 0509 Imaging Last Impressions Lower Extremity Ultrasound 04/18/16 0000 Signed Impressions: Service Date/Time: Monday, April 18, 2016 11:11 - CONCLUSION: No evidence of deep venous thrombosis. Saúl Hackett MD Chest X-Ray 04/17/16 1804 Signed Impressions: Service Date/Time: Sunday, April 17, 2016 18:20 - CONCLUSION: No acute disease. Joao Stoddard MD Aorta w/Runoff CTA 04/17/16 0000 Signed Impressions: Service Date/Time: Sunday, April 17, 2016 17:47 - CONCLUSION: In the left leg of concern, inflow is satisfactory. Superficial femoral artery is totally occluded. The popliteal reconstitutes however it is severely diseased throughout. Tibial vessels are patent, anterior tibial dominant. David Lazcano MD Objective Remarks CONST male in NAD, sitting at side of bed DERM: Sloughing/extremely dry skin to knees. Diffuse bright erythema to [place] b/ l. Hair loss LE b/l. Necrotic left great toe and half of left second toe. Small black area on R great toe, as well. HEENT: PERRL. MMM. CV: RRR. No murmrus. RESP: End expiratory wheezing bilateral. Occasional wet cough. GI: Abdomen NDNT. MSK: 2+ pitting edema LE NEUROL: Grossly motor and sensory intact. PSYCH: Appropriate affect. Mood pleasant. Moderate insight. A/P Assessment and Plan 65y male w PAD, Afib, CAD s/p CABG, DM2, tobacco abuse, and alcoholism , presents with gangrenous L great toe Discharge Planning 5-7 days, pending planned LLE bypass 04/24/16 and recovery. Likely d/c [facility] vs other (will need PT to re-eval post sx) Problem List: (1) Gangrenous toe Status: Acute Plan: PE significant necrotic great left toe and portion of second toe secondary to severe PAD and tobacco abuse. Will need LLE bypass to salvage extremity. CTA runoff with severe occlusions (Inflow satisfactory, but supf femoral artery totally concluded, severely diseased popliteal, tibial vessels patent) Plan: - Cardiovascular surgery (Dr. Trevino), Cardiology (Dr Herr) consulted * Angiogram LLE pending * LLE bypass planned 04/24/16. Cardiology consulted, gave clearance for surgery. US venous mapping showed saphenous veins appropriate for surgery * Pain control: continue Gabapentin 800mg TID, change morphine 4mg IV q3h from PRN to ALYSSA * Continue therapeutic Lovenox (Hold Coumadin) * PT recommendation: [facility], likely need to re-eval s/p surgery * Nitropaste daily to extremity * Smoking cessation counseling provided, Nicotine patch contraindicated due to PAD (2) COPD (chronic obstructive pulmonary disease) Status: Chronic Plan: Wheezing on exam. O2 sat 100% on RA. CXR: No acute process. Plan Continue home Advair, Albuterol neb Q2H PRN Breathing well on RA, oxygen supplementation when necessary for saturations 88%+ (3) CHF (congestive heart failure) Status: Chronic Plan: EF 2014 25%. Continue home lasix 20mg PO daily Continue home spironolactone 25mg PO daily (4) CAD (coronary artery disease) Status: Acute Plan: Cardiac cath July 2014 showing EF of 25%. Severe three-vessel coronary disease. Patent 3/3 bypass grafts. Aspirin 81 mg dc'ed 05/24 after colonoscopy due to continued melena -Continue home Atorvastatin (5) DM type 2 (diabetes mellitus, type 2) Status: Chronic Plan: Hold home metformin. Plan - Accu-Cheks w LSSI - Consult clinical unit educator and dietitian - Diabetic diet (6) Atrial fibrillation Status: Chronic Plan: Hold home Coumadin. INR subtherapeutic at 1.8 on admission. Per Vascular Surgery recommendations, hold Coumadin and start Lovenox 90mg (1mg/ kg) SQ Q12H (7) Alcohol intake above recommended sensible limits Status: Chronic Plan: Denies history of seizures or withdrawals. -CINJ protocol -Decreased alcohol consumption recommended - daily multivitamin, vitamin B1 (8) Nutrition, metabolism, and development symptoms Status: Acute Plan: Fluids: PO Electrolytes: Chronic Hyponatremia (120 on admission, improving). Resolved hyperkalemia (5.8 on admission) Nutrition: Heart Healthy 1800 ADA cons carb DVT PPx: Therapeutic Lovenox SDW: Dr Angulo Problem Qualifiers (1) COPD (chronic obstructive pulmonary disease): Qualified Code: J43.1 - Panlobular emphysema (2) CHF (congestive heart failure): Qualified Code: I50.9 - Congestive heart failure, unspecified congestive heart failure chronicity, unspecified congestive heart failure type (3) CAD (coronary artery disease): Qualified Code: I25.810 - Coronary artery disease involving coronary bypass graft of [place] heart without angina pectoris (4) DM type 2 (diabetes mellitus, type 2): Qualified Code: E11.9 - Type 2 diabetes mellitus without complication, without long-term current use of insulin (5) Atrial fibrillation: Qualified Code: I48.2 - Chronic atrial fibrillation Ninoska Egan MD R1 Apr 19, 2016 08:45
[2016-04-19] MEDS: SPIRONOLACTONE 25 MG TAB PO SCH (09:10)
[2016-04-19] MEDS: METOPROLOL TARTRATE 50 MG TAB PO SCH ×2 (09:10→20:41)
[2016-04-19] MEDS: FUROSEMIDE 20 MG TAB PO SCH (09:10)
[2016-04-19] MEDS: MULTIVITAMINS/MINERALS THERAPEUTIC TAB PO SCH (09:11)
[2016-04-19] MEDS: DOCUSATE CALCIUM 240 MG CAP PO SCH (09:11)
[2016-04-19] MEDS: THIAMINE HCL 100 MG TAB PO SCH (09:11)
[2016-04-19] MEDS: GABAPENTIN 400 MG CAP PO SCH ×3 (09:11→17:28)
[2016-04-19] MEDS: BUDESONIDE-FORMOTEROL 160/4.5 MCG INHALER INH SCH ×2 (09:17→20:41)
[2016-04-19] MEDS: ACETAMINOPHEN/HYDROcodone 325 MG/10 MG TAB PO PRN ×4 (10:12→22:53)
--- NOTE | 2016-04-19 13:50 | HHI.PR ---
Immediate Post Op Note Procedure Date: Apr 19, 2016 Pre Op Diagnosis: PAD Post Op Diagnosis: PAD Surgeon: Saúl Latif Telephone Answerer(s): none Procedure: L LE angiogram Findings: patent ABF limb and profunda runoff occluded L SFA, popliteal artery occluded L peroneal and PT Patent but diseased AT Will need groin reconstruction and fem-AT Complications: none apparent Specimen(s) removed: none Estimated blood loss: 5 mL Drains: None Patient to: Other (DOCU) Patient Condition: Good Implant/Devices: SEE IMPLANT LOG (if applicable) Date/Time of Procedure: SEE SURGICAL CARE RECORD Saúl Latif MD Apr 19, 2016 13:50
[2016-04-19] MEDS ORDERED: IOHEXOL 350 MG/ML 50 ML BTL (for Cath Lab) OTHER ONE (14:12)
[2016-04-19] MEDS: ATORVASTATIN 40 MG TAB PO SCH (20:41)
[2016-04-19] MEDS ORDERED: IOHEXOL 350 MG/ML 10 ML VIAL (for RAD DIAG) IV ONE (22:12)
--- NOTE | 2016-04-19 22:59 | RADRPT ---
EXAM DATE/TIME: 04/19/2016 22:04 [place] COMPARISON: No previous studies available for comparison. INDICATIONS : Evaluate for occlusion, neck pain. IV CONTRAST: 98 cc Omnipaque 350 (iohexol) IV RADIATION DOSE: 28.64 CTDIvol (mGy) MEDICAL HISTORY : Seizures. Hypertension. Cardiovascular diseaseCVA, PAD, diabetes SURGICAL HISTORY : CABG Abdominal aortic aneurysm repair. ENCOUNTER: Initial ACUITY: 1 day PAIN SCALE: 5/10 LOCATION: Bilateral neck TECHNIQUE: Volumetric scanning was performed using a multirow detector CT scanner. The data was post processed with a variety of visualization algorithms including full-volume maximum intensity pro jection, multiplanar sliding thin-slab reformation, curved-planar reformation, and surface-rendering techniques. Using automated exposure control and adjustment of the mA and/or kV according to patient size, radiation dose was kept as low as reasonably achievable to obtain optimal diagnostic quality i mages. FINDINGS: Branching pattern of the great vessels is normal. The brachiocephalic vein does obscur e the origin of the right subclavian artery. RIGHT CAROTID: There is a large amount of calcific plaque at the origin of the right internal caroti d compromising lumen by approximately 80%. This plaque appears to be hard plaque. LEFT CAROTID: A moderate amount of calcific plaque is seen at the origin of the left carotid which is compromising lumen over a long segment by approximately 70% as well. The left internal carotid i s smaller than the right and is partially collapsed. There is calcification at the skull base in both the right and left internal carotids worse on the le ft. Both vertebral arteries are patent to the basilar artery. Basilar artery is patent into the skull ba se. CONCLUSION: Carotid stenosis bilaterally both felt to be hemodynamically significant, right appea rs worse than the left however the left carotid appears partially collapsed. Semaj Holden MD FACR on April 19, 2016 at 22:49 Board Certified Radiologist. This report was verified electronically.
[2016-04-20] VITALS (7 sets, daily range): BP systolic 111–168; BP diastolic 59–75; PULSE 81–91; RESP 20–24; TEMP 98.4–98.9; O2SAT 92–99
[2016-04-20] MEDS: MORPHINE SULFATE 4 MG/ML INJ IV SCH ×3 (00:03→06:08)
[2016-04-20] MEDS: RESP: ALBUTEROL 2.5 MG/3 ML NEB (PRN) INH (03:48)
[2016-04-20] MEDS: INSULIN ASPART SUPPLEMENTAL SCALE SQ SCH ×4 (06:08→21:00)
[2016-04-20] MEDS: ENOXAPARIN SODIUM 100 MG/ML SYRINGE SQ SCH ×2 (06:08→18:20)
[2016-04-20 07:32] LABS: HEMATOCRIT 29.7 % (39.0-51.0); MEAN CELL VOLUME 98.5 FL (80.0-100.0); MEAN CORPUSCULAR HEMOGLOBIN 33.1 PG (27.0-34.0); MEAN CORPUSCULAR HGB CONC 33.6 % (32.0-36.0); PLATELET COUNT 177 TH/MM3 (150-450); RED BLOOD COUNT 3.02 MIL/MM3 (4.50-5.90); RED CELL DISTRIBUTION WIDTH 14.2 % (11.6-17.2); REVIEW FLAG FINAL; WHITE BLOOD COUNT 8.2 TH/MM3 (4.0-11.0)
[2016-04-20] MEDS: ACETAMINOPHEN/HYDROcodone 325 MG/10 MG TAB PO PRN (07:36)
[2016-04-20 07:48] LABS: BICARBONATE 25.1 MEQ/L (21.0-32.0); POTASSIUM 4.8 MEQ/L (3.5-5.1)
[2016-04-20] MEDS: METOPROLOL TARTRATE 50 MG TAB PO SCH ×2 (09:00→20:29)
--- NOTE | 2016-04-20 09:10 | HHI.FPPN ---
Subjective Remarks No acute events overnight. AF. Hypertensive to 150/70. Voiding without difficulty, no BM x3 days, but diarrhea for two weeks prior to admission. Complains of worsening L foot foot pain above baseline. Discussed with patient that angiogram confirmed vessels LLE blocked, needs surgery to save leg, planned for Saturday. Discussed that US carotid artery showed blockage 80% L ICA, 70% R ICA. Objective Vitals Vital Signs Date Time Temp Pulse Resp B/P Pulse Ox O2 Delivery O2 Flow Rate FiO2 04/20/16 08:31 95 Nasal Cannula 2.00 04/20/16 07:00 Nasal Cannula 2.00 04/20/16 03:15 98.7 88 20 150/70 96 04/19/16 23:44 98.9 70 24 105/59 95 04/19/16 21:00 96 Nasal Cannula 2.00 04/19/16 19:55 90 21 04/19/16 19:40 98.9 97 24 118/71 91 04/19/16 18:10 18 04/19/16 18:00 97.3 97 16 107/53 91 04/19/16 17:00 98.6 88 16 115/62 92 04/19/16 16:18 20 04/19/16 16:16 90 04/19/16 16:00 97.9 84 16 103/57 94 04/19/16 16:00 97.9 84 16 103/57 94 04/19/16 12:00 98.7 72 16 136/62 97 04/19/16 11:00 97 Room Air I/O 04/19/16 04/19/16 04/19/16 04/20/16 04/20/16 04/20/16 07:00 15:00 23:00 07:00 15:00 23:00 Intake Total 360 ml 0 ml 600 ml 360 ml Output Total 375 ml 600 ml 200 ml 400 ml Balance -15 ml -600 ml 400 ml -40 ml Intake Oral 360 ml 0 ml 600 ml 360 ml IV Total 0 ml Output Urine Total 375 ml 600 ml 200 ml 400 ml # Bowel Movements 0 0 0 Result Diagram: 04/20/16 0710 04/20/16 0710 Imaging Last Impressions Lower Extremity Ultrasound 04/18/16 0000 Signed Impressions: Service Date/Time: Monday, April 18, 2016 11:11 - CONCLUSION: No evidence of deep venous thrombosis. Saúl Hackett MD Chest X-Ray 04/17/16 1804 Signed Impressions: Service Date/Time: Sunday, April 17, 2016 18:20 - CONCLUSION: No acute disease. Joao Stoddard MD Aorta w/Runoff CTA 04/17/16 0000 Signed Impressions: Service Date/Time: Sunday, April 17, 2016 17:47 - CONCLUSION: In the left leg of concern, inflow is satisfactory. Superficial femoral artery is totally occluded. The popliteal reconstitutes however it is severely diseased throughout. Tibial vessels are patent, anterior tibial dominant. David Lazcano MD Objective Remarks CONST male in significant distress, lying on back, spasming occasionally from pain. DERM: Dark black dry necrosis L great toe. 2nd toe uniformly dark blue/dusky- looks worse from previous. Pinpoint black necrosis R great toe, as well. Sloughing/extremely dry skin to knees. Diffuse bright erythema to johnston b/l. Hair loss LE b/l. HEENT: PERRL. MMM. CV: RRR. No murmurs. RESP: End expiratory wheezing bilateral GI: Abdomen NDNT. MSK: 2+ pitting edema LE NEUROL: Grossly motor and sensory intact. PSYCH: Appropriate affect. Mood pleasant. Moderate insight. Urinary Catheter: No Vascular Central Line Catheter: No A/P Assessment and Plan 65y male w PAD, Afib, CAD s/p CABG, DM2, tobacco abuse, and alcoholism , hospitalized 04/17/15 for gangrenous L great toe Discharge Planning 5-7 days, pending planned LLE bypass 04/24/16 and recovery. Likely d/c [facility] vs other (will need PT to re-eval post sx) SDW: Dr Angulo, MS4 Shreya DW: Dr Kendall Problem List: (1) Gangrenous toe Status: Acute Plan: PE significant necrotic great left toe and portion of second toe secondary to severe PAD and tobacco abuse. Will need LLE bypass to salvage extremity. CTA runoff with severe occlusions (Inflow satisfactory, but supf femoral artery totally concluded, severely diseased popliteal, tibial vessels patent). Angiogram LLE (04/19): patent ABF limb and profunda, occluded L SFA & popliteal artery, occluded L peroneal and PT, patent but diseased AT, need groin reconstruction and fem-AT US venous mapping showed saphenous veins appropriate for surgery Cardiology consulted, gave clearance for surgery Plan: - Cardiovascular surgery (Dr. Trevino), Cardiology (Dr Herr) consulted * LLE bypass planned 04/24/16 * Pain control: continue Gabapentin 800mg TID, change morphine 4mg IV q3h from PRN to ALYSSA * Continue therapeutic Lovenox (Hold Coumadin) * Nitropaste daily to extremity * Nicotine patch contraindicated due to PAD, Smoking cessation counseling provided * PT recommendations: [facility], likely need to re-eval s/p surgery * [place] 10/325 q4h ALYSSA * [place] 5/325 q4h PRN pain (3-5) * Morphine q3h PRN breakthrough pain (use [place] 5 prior to giving morphine) (2) COPD (chronic obstructive pulmonary disease) Status: Chronic Plan: Wheezing on exam. O2 sat 100% on RA. CXR: No acute process. Plan Continue home Advair, Albuterol neb Q2H PRN Breathing well on RA, oxygen supplementation when necessary for saturations 88%+ (3) CHF (congestive heart failure) Status: Acute Plan: EF 2014 25%. Continue home lasix 20mg PO daily Continue home spironolactone 25mg PO daily (4) CAD (coronary artery disease) Status: Acute Plan: Cardiac cath July 2014 showing EF of 25%. Severe three-vessel coronary disease. Patent 3/3 bypass grafts. Aspirin 81 mg dc'ed 05/24 after colonoscopy due to continued melena -Continue home Atorvastatin (5) DM type 2 (diabetes mellitus, type 2) Status: Chronic Plan: Hold home metformin. Plan - Accu-Cheks w LSSI - Consult early childhood educator aide and dietitian - Diabetic diet (6) Atrial fibrillation Status: Chronic Plan: Hold home Coumadin. INR subtherapeutic at 1.8 on admission. Plan Per Vascular Surgery recommendations, hold Coumadin and start Lovenox 90mg (1mg/ kg) SQ Q12H (7) Alcohol intake above recommended sensible limits Status: Chronic Plan: Denies history of seizures or withdrawals. Plan -Decreased alcohol consumption recommended - daily multivitamin, vitamin B1 (8) Nutrition, metabolism, and development symptoms Status: Acute Plan: Fluids: PO Electrolytes: Chronic Hyponatremia (120 on admission, improving). Resolved hyperkalemia (5.8 on admission) Nutrition: Heart Healthy 1800 ADA cons carb DVT PPx: Therapeutic Lovenox GI ppx: not indicated Problem Qualifiers (1) COPD (chronic obstructive pulmonary disease): Qualified Code: J43.1 - Panlobular emphysema (2) CHF (congestive heart failure): Qualified Code: I50.9 - Congestive heart failure, unspecified congestive heart failure chronicity, unspecified congestive heart failure type (3) CAD (coronary artery disease): Qualified Code: I25.810 - Coronary artery disease involving coronary bypass graft of [place] heart without angina pectoris (4) DM type 2 (diabetes mellitus, type 2): Qualified Code: E11.9 - Type 2 diabetes mellitus without complication, without long-term current use of insulin (5) Atrial fibrillation: Qualified Code: I48.2 - Chronic atrial fibrillation Ninoska Egan MD R1 Apr 20, 2016 09:10
[2016-04-20] MEDS: SPIRONOLACTONE 25 MG TAB PO SCH (09:20)
[2016-04-20] MEDS: FUROSEMIDE 20 MG TAB PO SCH (09:20)
[2016-04-20] MEDS: MULTIVITAMINS/MINERALS THERAPEUTIC TAB PO SCH (09:20)
[2016-04-20] MEDS: THIAMINE HCL 100 MG TAB PO SCH (09:20)
[2016-04-20] MEDS: GABAPENTIN 400 MG CAP PO SCH ×3 (09:20→18:19)
[2016-04-20] MEDS: MORPHINE SULFATE 4 MG/ML INJ IV PRN ×4 (09:21→20:26)
--- NOTE | 2016-04-20 09:38 | PD.VS.PN ---
Subjective Subjective/Hospital Course Pt with severe PAD and L LE tissue loss Angio yesterday showed potential revascularization option Objective Vitals/I&O Date Time Temp Pulse Resp B/P Pulse Ox O2 Delivery O2 Flow Rate FiO2 04/20/16 08:31 95 Nasal Cannula 2.00 04/20/16 08:00 98.5 85 22 111/59 95 04/20/16 07:00 Nasal Cannula 2.00 04/20/16 03:15 98.7 88 20 150/70 96 04/19/16 23:44 98.9 70 24 105/59 95 04/19/16 21:00 96 Nasal Cannula 2.00 04/19/16 19:55 90 21 04/19/16 19:40 98.9 97 24 118/71 91 04/19/16 18:10 18 04/19/16 18:00 97.3 97 16 107/53 91 04/19/16 17:00 98.6 88 16 115/62 92 04/19/16 16:18 20 04/19/16 16:16 90 04/19/16 16:00 97.9 84 16 103/57 94 04/19/16 16:00 97.9 84 16 103/57 94 04/19/16 12:00 98.7 72 16 136/62 97 04/19/16 11:00 97 Room Air 04/20/16 04/20/16 04/20/16 07:00 15:00 23:00 Intake Total 360 ml Output Total 400 ml Balance -40 ml Physical Exam L foot stable gangrene, motor intact Laboratory Laboratory Tests Test 04/20/16 07:10 White Blood Count 8.2 Red Blood Count 3.02 Hemoglobin 10.0 Hematocrit 29.7 Mean Corpuscular Volume 98.5 Mean Corpuscular Hemoglobin 33.1 Mean Corpuscular Hemoglobin 33.6 Concent Red Cell Distribution Width 14.2 Platelet Count 177 Mean Platelet Volume 8.1 Sodium Level 127 Potassium Level 4.8 Chloride Level 95 Carbon Dioxide Level 25.1 Anion Gap 7 Blood Urea Nitrogen 8 Creatinine 0.67 Estimat Glomerular Filtration 119 Rate Random Glucose 88 Calcium Level 8.8 Assessment and Plan Assessment: (1) Cellulitis of both lower extremities Status: Acute (2) PAD (peripheral artery disease) Status: Chronic Plan 1. L LEdistal bypass and toe amputations scheduled for Sylvia morning 2. ASA/statin/beta allyn Saúl Latif MD Apr 20, 2016 09:38
[2016-04-20] MEDS: BUDESONIDE-FORMOTEROL 160/4.5 MCG INHALER INH SCH ×2 (11:32→21:12)
[2016-04-20] MEDS: DOCUSATE CALCIUM 240 MG CAP PO SCH (11:32)
[2016-04-20] MEDS: ACETAMINOPHEN/HYDROcodone 325 MG/10 MG TAB PO SCH ×4 (11:35→21:10)
--- NOTE | 2016-04-20 12:12 | MP ---
cc: SAÚL LATIF MD DATE OF SURGERY: 04/19/2016 PREOPERATIVE DIAGNOSIS Left lower extremity critical limb ischemia, peripheral arterial occlusive disease. POSTOPERATIVE DIAGNOSIS Left lower extremity critical limb ischemia, peripheral arterial occlusive disease. PROCEDURE Left lower extremity angiogram. ATTENDING SURGEON Saúl Latif ANESTHESIA Local with sedation. INDICATION Mr. Salcedo is a 65-year-old gentleman with a history of an aortobifemoral bypass graft and severe left lower extremity occlusive disease manifesting as severe tissue loss. He is taken to the operating room for angiographic evaluation and treatment. There is no prior catheter-based imaging available for my review. DESCRIPTION OF PROCEDURE Informed consent was obtained from the patient. He was taken to the operating room and placed supine on the operating table. An appropriate timeout was taken to ensure the patient's identity, the operative site and planned procedure. The administration of antibiotics was not necessary as this was a clean procedure without the planned implantation of any foreign object. Everyone in the room agreed with the timeout and we proceeded. His left groin was prepped and draped and locally anesthetized with 1% lidocaine. A 21-gauge micropuncture needle was used to access the left limb of the ABF. This was exchanged using Seldinger technique for a micropuncture sheath through which a left lower extremity arteriogram was obtained. The micropuncture sheath was then removed and pressure was held for hemostasis. There were no complications. I was present and scrubbed for the entire procedure. INTERPRETATION OF IMAGES The patient has a patent ABF limb that extends into his profunda. There is a small profunda stenosis. The SFA and popliteal area occluded. The anterior tibial artery reconstitutes via profunda based collaterals, although it is severely diseased. The peroneal artery is diseased but reconstitutes distally. The posterior tibial artery is occluded. Saúl Latif MD RJF/BT /1:54 PM /11:49 AM MTDD
[2016-04-20] MEDS: ATORVASTATIN 40 MG TAB PO SCH (20:30)
[2016-04-21] MEDS: MORPHINE SULFATE 4 MG/ML INJ IV PRN ×6 (02:12→21:15)
[2016-04-21 04:00] VITALS: BP 158/92; PULSE 83; RESP 16; TEMP 98; O2SAT 96
[2016-04-21] MEDS: ACETAMINOPHEN/HYDROcodone 325 MG/10 MG TAB PO SCH ×6 (05:27→22:31)
[2016-04-21] MEDS: ENOXAPARIN SODIUM 100 MG/ML SYRINGE SQ SCH ×2 (05:31→17:37)
[2016-04-21] MEDS: INSULIN ASPART SUPPLEMENTAL SCALE SQ SCH ×4 (06:18→21:00)
[2016-04-21 08:10] VITALS: BP 136/62; PULSE 100; RESP 18; TEMP 98; O2SAT 97
[2016-04-21] MEDS: THIAMINE HCL 100 MG TAB PO SCH (08:26)
[2016-04-21] MEDS: SPIRONOLACTONE 25 MG TAB PO SCH (08:26)
[2016-04-21] MEDS: DOCUSATE CALCIUM 240 MG CAP PO SCH (08:26)
[2016-04-21] MEDS: MULTIVITAMINS/MINERALS THERAPEUTIC TAB PO SCH (08:26)
[2016-04-21] MEDS: FUROSEMIDE 20 MG TAB PO SCH (08:26)
[2016-04-21] MEDS: GABAPENTIN 400 MG CAP PO SCH ×3 (08:26→17:37)
[2016-04-21] MEDS: METOPROLOL TARTRATE 50 MG TAB PO SCH ×2 (08:26→21:14)
[2016-04-21] MEDS: BUDESONIDE-FORMOTEROL 160/4.5 MCG INHALER INH SCH ×2 (08:27→21:14)
--- NOTE | 2016-04-21 09:04 | HHI.FPPN ---
Subjective Remarks No acute issues overnight. Vitals are stable, patient remains afebrile. He did have pain overnight but overall notes that his pain is well-controlled. He denies any chest pain, new shortness of breath, fever, chills, nausea or vomiting. Objective Vitals Vital Signs Date Time Temp Pulse Resp B/P Pulse Ox O2 Delivery O2 Flow Rate FiO2 04/21/16 08:10 98.0 100 18 136/62 97 04/21/16 04:00 98.0 83 16 158/92 96 04/20/16 22:58 92 Nasal Cannula 3.00 04/20/16 20:00 96 Nasal Cannula 2.00 04/20/16 20:00 98.9 90 24 133/62 96 04/20/16 20:00 87 04/20/16 16:28 20 04/20/16 16:00 98.4 91 22 168/75 99 04/20/16 12:35 20 04/20/16 12:00 98.5 81 22 128/74 94 I/O 04/20/16 04/20/16 04/20/16 04/21/16 04/21/16 04/21/16 07:00 15:00 23:00 07:00 15:00 23:00 Intake Total 360 ml 620 ml 320 ml 240 ml Output Total 400 ml 1900 ml 350 ml 1050 ml Balance -40 ml -1280 ml -30 ml -810 ml Intake Oral 360 ml 600 ml 320 ml 240 ml IV Total 20 ml Output Urine Total 400 ml 1900 ml 350 ml 1050 ml # Bowel Movements 0 Result Diagram: 04/20/16 0710 04/20/16 0710 Imaging Last Impressions Neck CTA 04/19/16 0000 Signed Impressions: Service Date/Time: April 22:04 - CONCLUSION: Carotid stenosis bilaterally both felt to be hemodynamically significant, right appears worse than the left however the left carotid appears partially collapsed. Semaj Holden MD FACR Lower Extremity Ultrasound 04/18/16 0000 Signed Impressions: Service Date/Time: Monday, April 18, 2016 11:11 - CONCLUSION: No evidence of deep venous thrombosis. Saúl Hackett MD Chest X-Ray 04/17/16 1804 Signed Impressions: Service Date/Time: Sunday, April 17, 2016 18:20 - CONCLUSION: No acute disease. Joao Stoddard MD Aorta w/Runoff CTA 04/17/16 0000 Signed Impressions: Service Date/Time: Sunday, April 17, 2016 17:47 - CONCLUSION: In the left leg of concern, inflow is satisfactory. Superficial femoral artery is totally occluded. The popliteal reconstitutes however it is severely diseased throughout. Tibial vessels are patent, anterior tibial dominant. David Lazcano MD Objective Remarks CONST male laying in bed comfortably, in NAD. DERM: Dark black dry necrosis L great toe. 2nd toe uniformly dark blue/dusky. Pinpoint black necrosis R great toe, as well. Sloughing dry skin up to knees bilaterally. Diffuse bright erythema to [place] b /l. Hair loss LE b/l. HEENT: PERRL. MMM. CV: RRR. No murmurs. RESP: End expiratory wheezing bilateral GI: Abdomen NDNT. MSK: 2+ pitting edema LE NEUROL: Grossly motor and sensory intact. PSYCH: Appropriate affect. Mood pleasant. Moderate insight. A/P Assessment and Plan 65y male w PAD, Afib, CAD s/p CABG, DM2, tobacco abuse, and alcoholism , hospitalized 04/17/15 for gangrenous L great toe Discharge Planning 5-7 days, pending planned LLE bypass 04/24/16 and recovery. Likely d/c [facility] vs other (will need PT to re-eval post sx) dw Dr. Kendall Problem List: (1) Gangrenous toe Status: Acute Plan: PE significant necrotic great left toe and portion of second toe secondary to severe PAD and tobacco abuse. Will need LLE bypass to salvage extremity. CTA runoff with severe occlusions (Inflow satisfactory, but supf femoral artery totally concluded, severely diseased popliteal, tibial vessels patent). Angiogram LLE (04/19): patent ABF limb and profunda, occluded L SFA & popliteal artery, occluded L peroneal and PT, patent but diseased AT, need groin reconstruction and fem-AT US venous mapping showed saphenous veins appropriate for surgery Cardiology consulted, gave clearance for surgery 04/19 CTA significant for hemodynamically significant carotid stenosis bilaterally, right appears worse than left, however the left carotid appears partially collapsed. Plan: - Vascular surgery (Dr. Trevino), Cardiology (Dr Gary) consulted * LLE bypass planned Tu04/24/16 * Pain control: continue Gabapentin 800mg TID, [place] 5-325mg PO Q4H PRN pain 5-3 , [place] 10-325mg PO Q4H PO sched, morphine 4mg IV q3h PRN breakthrough pain * Continue therapeutic Lovenox (Hold Coumadin) * Nitropaste daily to extremity * Nicotine patch contraindicated due to PAD, Smoking cessation counseling provided * PT recommendations: [facility], likely need to re-eval s/p surgery (2) COPD (chronic obstructive pulmonary disease) Status: Chronic Plan: Stable. Plan Continue home Advair, Symbicort, Albuterol neb Q2H PRN Breathing well on RA, oxygen supplementation when necessary for saturations 88%+ (3) CHF (congestive heart failure) Status: Chronic Plan: EF 2014 25%. Continue home lasix 20mg PO daily Continue home spironolactone 25mg PO daily (4) CAD (coronary artery disease) Status: Acute Plan: Cardiac cath July 2014 showing EF of 25%. Severe three-vessel coronary disease. Patent 3/3 bypass grafts. Aspirin 81 mg dc'ed 05/24 after colonoscopy due to continued melena -Continue home Atorvastatin (5) DM type 2 (diabetes mellitus, type 2) Status: Chronic Plan: Hold home metformin. Bedside glucose ranging 14-124 Plan - DC Accu-Cheks w LSSI (6) Atrial fibrillation Status: Chronic Plan: Hold home Coumadin. INR subtherapeutic at 1.8 on admission. Plan Per Vascular Surgery recommendations, hold Coumadin and continue Lovenox 90mg ( 1mg/kg) SQ Q12H (7) Alcohol intake above recommended sensible limits Status: Chronic Plan: Denies history of seizures or withdrawals. Plan -Decreased alcohol consumption recommended - daily multivitamin, Thiamine (8) Nutrition, metabolism, and development symptoms Status: Acute Plan: Fluids: PO Electrolytes: Chronic Hyponatremia, stable. Continue to monitor and replete as needed. Nutrition: Heart Healthy 1800 ADA cons carb DVT PPx: Therapeutic Lovenox GI ppx: not indicated Problem Qualifiers (1) COPD (chronic obstructive pulmonary disease): Qualified Code: J43.1 - Panlobular emphysema (2) CHF (congestive heart failure): Qualified Code: I50.9 - Congestive heart failure, unspecified congestive heart failure chronicity, unspecified congestive heart failure type (3) CAD (coronary artery disease): Qualified Code: I25.810 - Coronary artery disease involving coronary bypass graft of [place] heart without angina pectoris (4) DM type 2 (diabetes mellitus, type 2): Qualified Code: E11.9 - Type 2 diabetes mellitus without complication, without long-term current use of insulin (5) Atrial fibrillation: Qualified Code: I48.2 - Chronic atrial fibrillation Freda Rodriguez MD R2 Apr 21, 2016 09:04
[2016-04-21 09:40] VITALS: O2SAT 96
[2016-04-21] MEDS: LACTIC ACID (AMMONIUM LACTATE) 12% LOTION 225 GM BTL TOPICAL SCH ×2 (11:43→21:00)
[2016-04-21 12:17] VITALS: BP 151/68; PULSE 76; RESP 18; TEMP 97.4; O2SAT 97
[2016-04-21 16:12] VITALS: BP 118/64; PULSE 72; RESP 18; TEMP 98; O2SAT 97
[2016-04-21 20:00] VITALS: BP 103/70; PULSE 86; RESP 18; TEMP 98.3; O2SAT 95
[2016-04-21] MEDS: ATORVASTATIN 40 MG TAB PO SCH (21:14)
[2016-04-22] VITALS (7 sets, daily range): BP systolic 119–157; BP diastolic 61–81; PULSE 73–84; RESP 18–20; TEMP 97.8–98.7; O2SAT 95–99
[2016-04-22] MEDS: MORPHINE SULFATE 4 MG/ML INJ IV PRN ×7 (00:10→21:27)
[2016-04-22] MEDS: ACETAMINOPHEN/HYDROcodone 325 MG/10 MG TAB PO SCH ×6 (02:38→23:13)
[2016-04-22] MEDS: ENOXAPARIN SODIUM 100 MG/ML SYRINGE SQ SCH ×2 (04:58→17:49)
[2016-04-22] MEDS: INSULIN ASPART SUPPLEMENTAL SCALE SQ SCH ×4 (06:08→19:53)
[2016-04-22] MEDS: FUROSEMIDE 20 MG TAB PO SCH (08:33)
[2016-04-22] MEDS: GABAPENTIN 400 MG CAP PO SCH ×3 (08:33→17:48)
[2016-04-22] MEDS: SPIRONOLACTONE 25 MG TAB PO SCH (08:33)
[2016-04-22] MEDS: THIAMINE HCL 100 MG TAB PO SCH (08:33)
[2016-04-22] MEDS: DOCUSATE CALCIUM 240 MG CAP PO SCH (08:34)
[2016-04-22] MEDS: METOPROLOL TARTRATE 50 MG TAB PO SCH ×2 (08:34→19:52)
[2016-04-22] MEDS: MULTIVITAMINS/MINERALS THERAPEUTIC TAB PO SCH (08:34)
[2016-04-22] MEDS: BUDESONIDE-FORMOTEROL 160/4.5 MCG INHALER INH SCH ×2 (08:34→19:53)
[2016-04-22] MEDS: LACTIC ACID (AMMONIUM LACTATE) 12% LOTION 225 GM BTL TOPICAL SCH ×2 (08:35→19:53)
--- NOTE | 2016-04-22 10:37 | HHI.FPPN ---
Subjective Remarks No acute issues overnight. Vitals are stable, patient remains afebrile. He is doing well today. Having regular bowel movements. Tolerating oral intake. Has no new concerns today. Objective Vitals Vital Signs Date Time Temp Pulse Resp B/P Pulse Ox O2 Delivery O2 Flow Rate FiO2 04/22/16 08:39 Nasal Cannula 2.00 04/22/16 08:05 98.4 80 19 135/69 95 04/22/16 04:00 97.8 84 18 119/71 95 04/22/16 00:00 98.1 74 20 157/81 99 04/21/16 20:10 Nasal Cannula 2.00 04/21/16 20:00 98.3 86 18 103/70 95 04/21/16 16:12 98.0 72 18 118/64 97 04/21/16 12:17 97.4 76 18 151/68 97 I/O 04/21/16 04/21/16 04/21/16 04/22/16 04/22/16 04/22/16 07:00 15:00 23:00 07:00 15:00 23:00 Intake Total 240 ml 720 ml 362 ml 484 ml Output Total 1050 ml 1650 ml 600 ml 600 ml Balance -810 ml -930 ml -238 ml -116 ml Intake Oral 240 ml 720 ml 360 ml 480 ml IV Total 2 ml 4 ml Output Urine Total 1050 ml 1650 ml 600 ml 600 ml # Bowel Movements 0 0 0 Result Diagram: 04/20/16 0710 04/20/16 0710 Imaging Last Impressions Neck CTA 04/19/16 0000 Signed Impressions: Service Date/Time: April 22:04 - CONCLUSION: Carotid stenosis bilaterally both felt to be hemodynamically significant, right appears worse than the left however the left carotid appears partially collapsed. Semaj Holden MD FACR Lower Extremity Ultrasound 04/18/16 0000 Signed Impressions: Service Date/Time: Monday, April 18, 2016 11:11 - CONCLUSION: No evidence of deep venous thrombosis. Saúl Hackett MD Chest X-Ray 04/17/16 1804 Signed Impressions: Service Date/Time: Sunday, April 17, 2016 18:20 - CONCLUSION: No acute disease. Joao Stoddard MD Aorta w/Runoff CTA 04/17/16 0000 Signed Impressions: Service Date/Time: Sunday, April 17, 2016 17:47 - CONCLUSION: In the left leg of concern, inflow is satisfactory. Superficial femoral artery is totally occluded. The popliteal reconstitutes however it is severely diseased throughout. Tibial vessels are patent, anterior tibial dominant. David Lazcano MD Objective Remarks CONST: male sitting on commode, in NAD. DERM: Dark black dry necrosis L great toe. 2nd toe uniformly dark blue/dusky. Pinpoint black necrosis R great toe, as well. Sloughing dry skin up to knees bilaterally. Diffuse bright erythema to [place] b /l. Hair loss LE b/l. HEENT: PERRL. MMM. CV: RRR. No murmurs. RESP: End expiratory wheezing bilateral GI: Abdomen NDNT. MSK: 2+ pitting edema LE NEUROL: Grossly motor and sensory intact. PSYCH: Appropriate affect. Mood pleasant. Moderate insight. A/P Assessment and Plan 65y male w PAD, Afib, CAD s/p CABG, DM2, tobacco abuse, and alcoholism , hospitalized 04/17/15 for gangrenous L great toe. Discharge Planning Unclear timetable, pending planned LLE bypass 04/24/16 and recovery. Likely d/c [facility] vs other (will need PT to re-eval post sx) dw Dr. Kendall and Dr. Egan Problem List: (1) Gangrenous toe Status: Acute Plan: PE significant necrotic great left toe and portion of second toe secondary to severe PAD and tobacco abuse. Will need LLE bypass to salvage extremity. CTA runoff with severe occlusions (Inflow satisfactory, but supf femoral artery totally concluded, severely diseased popliteal, tibial vessels patent). Angiogram LLE (04/19): patent ABF limb and profunda, occluded L SFA & popliteal artery, occluded L peroneal and PT, patent but diseased AT, need groin reconstruction and fem-AT US venous mapping showed saphenous veins appropriate for surgery Cardiology consulted, gave clearance for surgery 04/19 CTA significant for hemodynamically significant carotid stenosis bilaterally, right appears worse than left, however the left carotid appears partially collapsed. Plan: - Vascular surgery (Dr. Trevino), Cardiology (Dr Gary) consulted * LLE bypass planned 04/24/16 * Pain control: continue Gabapentin 800mg TID, [place] 5-325mg PO Q4H PRN pain 5-3 , [place] 10-325mg PO Q4H PO sched, morphine 4mg IV q3h PRN breakthrough pain * Continue therapeutic Lovenox (Hold Coumadin) * Nicotine patch contraindicated due to PAD, Smoking cessation counseling provided * PT recommendations: [facility], likely need to re-eval s/p surgery (2) COPD (chronic obstructive pulmonary disease) Status: Chronic Plan: Stable Continue home Advair, Albuterol neb Q2H PRN Breathing well on RA, oxygen supplementation when necessary for saturations 88%+ (3) CHF (congestive heart failure) Status: Chronic Plan: EF 2014 25%. Continue home Lasix 20mg PO daily Continue home spironolactone 25mg PO daily (4) CAD (coronary artery disease) Status: Acute Plan: Cardiac cath July 2014 showing EF of 25%. Severe three-vessel coronary disease. Patent 3/3 bypass grafts. Aspirin 81 mg dc'ed 05/24 after colonoscopy due to continued melena -Continue home Atorvastatin (5) DM type 2 (diabetes mellitus, type 2) Status: Chronic Plan: Hold home metformin. SSI dc'd as blood glucose was running consistently normal/low Continue diabetic diet (6) Atrial fibrillation Status: Chronic Plan: Hold home Coumadin. INR subtherapeutic at 1.8 on admission. Per Vascular Surgery recommendations, hold Coumadin and continue Lovenox 90mg ( 1mg/kg) SQ Q12H (7) Alcohol intake above recommended sensible limits Status: Chronic Plan: Denies history of seizures or withdrawals. -[facility] protocol -Decreased alcohol consumption recommended - daily multivitamin, vitamin B1 (8) Nutrition, metabolism, and development symptoms Status: Acute Plan: Fluids: PO Electrolytes: Chronic Hyponatremia, stable. Continue to monitor and replete as needed. Nutrition: Heart Healthy, 1800 ADA cons carb DVT PPx: Therapeutic Lovenox Problem Qualifiers (1) COPD (chronic obstructive pulmonary disease): Qualified Code: J43.1 - Panlobular emphysema (2) CHF (congestive heart failure): Qualified Code: I50.9 - Congestive heart failure, unspecified congestive heart failure chronicity, unspecified congestive heart failure type (3) CAD (coronary artery disease): Qualified Code: I25.810 - Coronary artery disease involving coronary bypass graft of [place] heart without angina pectoris (4) DM type 2 (diabetes mellitus, type 2): Qualified Code: E11.9 - Type 2 diabetes mellitus without complication, without long-term current use of insulin (5) Atrial fibrillation: Qualified Code: I48.2 - Chronic atrial fibrillation Freda Rodriguez MD R2 Apr 22, 2016 10:37
[2016-04-22] MEDS: ATORVASTATIN 40 MG TAB PO SCH (19:52)
[2016-04-23] VITALS: BP 147/69; PULSE 76; RESP 20; TEMP 98.9; O2SAT 98
[2016-04-23] MEDS: MORPHINE SULFATE 4 MG/ML INJ IV PRN ×7 (00:38→21:46)
[2016-04-23] MEDS: ACETAMINOPHEN/HYDROcodone 325 MG/10 MG TAB PO SCH ×6 (02:52→23:47)
[2016-04-23 04:00] VITALS: BP 145/67; PULSE 79; RESP 18; TEMP 98.1; O2SAT 97
[2016-04-23] MEDS: ENOXAPARIN SODIUM 100 MG/ML SYRINGE SQ SCH ×2 (05:17→17:29)
[2016-04-23] MEDS: INSULIN ASPART SUPPLEMENTAL SCALE SQ SCH ×4 (06:05→20:39)
[2016-04-23 07:04] LABS: HEMATOCRIT 30.8 % (39.0-51.0); MEAN CELL VOLUME 98.2 FL (80.0-100.0); MEAN CORPUSCULAR HEMOGLOBIN 33.4 PG (27.0-34.0); PLATELET COUNT 197 TH/MM3 (150-450); RED BLOOD COUNT 3.14 MIL/MM3 (4.50-5.90); RED CELL DISTRIBUTION WIDTH 13.5 % (11.6-17.2); REVIEW FLAG FINAL; WHITE BLOOD COUNT 9.6 TH/MM3 (4.0-11.0)
[2016-04-23 07:30] LABS: BICARBONATE 28.4 MEQ/L (21.0-32.0); POTASSIUM 4.4 MEQ/L (3.5-5.1)
[2016-04-23 08:00] VITALS: BP 155/67; PULSE 88; PULSE 92; RESP 22; TEMP 99; O2SAT 95
--- NOTE | 2016-04-23 08:52 | HHI.FPPN ---
Subjective Remarks No acute issues overnight. Vitals are stable, patient remained afebrile. He is having widespread itching today and states that this has been present for the past several days. He denies any chest pain, shortness of breath, fever, chills, nausea or vomiting. He is pleased that the lotion is helped improve his dry skin on his bilateral lower extremities. Pain is well controlled at this time. Objective Vitals Vital Signs Date Time Temp Pulse Resp B/P Pulse Ox O2 Delivery O2 Flow Rate FiO2 04/23/16 08:00 99.0 88 22 155/67 95 04/23/16 04:00 98.1 79 18 145/67 97 04/23/16 00:00 98.9 76 20 147/69 98 04/22/16 20:00 Nasal Cannula 2.00 04/22/16 20:00 98.0 79 18 124/61 96 04/22/16 16:34 97.9 83 18 139/77 95 04/22/16 15:41 73 04/22/16 12:18 98.7 74 19 130/63 97 04/22/16 09:48 Nasal Cannula 3.00 I/O 04/22/16 04/22/16 04/22/16 04/23/16 04/23/16 04/23/16 07:00 15:00 23:00 07:00 15:00 23:00 Intake Total 484 ml 720 ml 482 ml 726 ml Output Total 600 ml 500 ml 900 ml 1450 ml Balance -116 ml 220 ml -418 ml -724 ml Intake Oral 480 ml 720 ml 480 ml 720 ml IV Total 4 ml 2 ml 6 ml Output Urine Total 600 ml 500 ml 900 ml 1450 ml # Bowel Movements 0 1 1 1 Result Diagram: 04/23/16 0625 04/23/16 0625 Imaging Last Impressions Neck CTA 04/19/16 0000 Signed Impressions: Service Date/Time: April 22:04 - CONCLUSION: Carotid stenosis bilaterally both felt to be hemodynamically significant, right appears worse than the left however the left carotid appears partially collapsed. Semaj Holden MD FACR Lower Extremity Ultrasound 04/18/16 0000 Signed Impressions: Service Date/Time: Monday, April 18, 2016 11:11 - CONCLUSION: No evidence of deep venous thrombosis. Saúl Hackett MD Chest X-Ray 04/17/16 1804 Signed Impressions: Service Date/Time: Sunday, April 17, 2016 18:20 - CONCLUSION: No acute disease. Joao Stoddard MD Aorta w/Runoff CTA 04/17/16 0000 Signed Impressions: Service Date/Time: Sunday, April 17, 2016 17:47 - CONCLUSION: In the left leg of concern, inflow is satisfactory. Superficial femoral artery is totally occluded. The popliteal reconstitutes however it is severely diseased throughout. Tibial vessels are patent, anterior tibial dominant. David Lazcano MD Objective Remarks CONST: male sitting up in bed, in NAD. DERM: Dark black dry necrosis L great toe. 2nd toe uniformly dark blue/dusky. Pinpoint black necrosis R great toe, as well. Diffuse bright erythema to [place] b/l. Hair loss LE b/l. HEENT: PERRL. MMM. CV: RRR. No murmurs. RESP: End expiratory wheezing bilateral GI: Abdomen NDNT. MSK: 2+ pitting edema LE NEUROL: Grossly motor and sensory intact. PSYCH: Appropriate affect. Mood pleasant. Moderate insight. A/P Assessment and Plan 65y male w PAD, Afib, CAD s/p CABG, DM2, tobacco abuse, and alcoholism , hospitalized 04/17/15 for gangrenous L great toe. Discharge Planning Unclear timetable, pending planned LLE bypass 04/24/16 and recovery. Likely d/c [facility] vs other (will need PT to re-eval post sx) joyce Kendall Problem List: (1) Gangrenous toe Status: Acute Plan: PE significant necrotic great left toe and portion of second toe secondary to severe PAD and tobacco abuse. Will need LLE bypass to salvage extremity. CTA runoff with severe occlusions (Inflow satisfactory, but supf femoral artery totally concluded, severely diseased popliteal, tibial vessels patent). Angiogram LLE (04/19): patent ABF limb and profunda, occluded L SFA & popliteal artery, occluded L peroneal and PT, patent but diseased AT, need groin reconstruction and fem-AT US venous mapping showed saphenous veins appropriate for surgery Cardiology consulted, gave clearance for surgery 04/19 CTA significant for hemodynamically significant carotid stenosis bilaterally, right appears worse than left, however the left carotid appears partially collapsed. Plan: - Vascular surgery (Dr. Trevino), Cardiology (Dr Gary) consulted * LLE bypass planned 04/24/16 * Pain control: continue Gabapentin 800mg TID, [place] 5-325mg PO Q4H PRN pain 5-3 , [place] 10-325mg PO Q4H PO sched, morphine 4mg IV q3h PRN breakthrough pain * Continue therapeutic Lovenox (Hold Coumadin) * Nicotine patch contraindicated due to PAD, Smoking cessation counseling provided * PT recommendations: [facility], likely need to re-eval s/p surgery (2) COPD (chronic obstructive pulmonary disease) Status: Chronic Plan: Stable Continue home Advair, Albuterol neb Q2H PRN Breathing well on RA, oxygen supplementation when necessary for saturations 88%+ (3) CHF (congestive heart failure) Status: Chronic Plan: EF 2014 25%. Continue home Lasix 20mg PO daily Continue home spironolactone 25mg PO daily (4) CAD (coronary artery disease) Status: Acute Plan: Cardiac cath July 2014 showing EF of 25%. Severe three-vessel coronary disease. Patent 3/3 bypass grafts. Aspirin 81 mg dc'ed 05/24 after colonoscopy due to continued melena -Continue home Atorvastatin (5) DM type 2 (diabetes mellitus, type 2) Status: Chronic Plan: Hold home metformin. SSI dc'd as blood glucose was running consistently normal/low Continue diabetic diet (6) Atrial fibrillation Status: Chronic Plan: Hold home Coumadin. INR subtherapeutic at 1.8 on admission. Per Vascular Surgery recommendations, hold Coumadin and continue Lovenox 90mg ( 1mg/kg) SQ Q12H (7) Alcohol intake above recommended sensible limits Status: Chronic Plan: Denies history of seizures or withdrawals. -[facility] protocol -Decreased alcohol consumption recommended - daily multivitamin, vitamin B1 (8) Nutrition, metabolism, and development symptoms Status: Acute Plan: Fluids: PO Electrolytes: Chronic Hyponatremia, stable. Continue to monitor and replete as needed. Nutrition: Heart Healthy, 1800 ADA cons carb, nothing by mouth after midnight in anticipation of surgery in the a.m. DVT PPx: Therapeutic Lovenox Other: Benadryl PRN itching Problem Qualifiers (1) COPD (chronic obstructive pulmonary disease): Qualified Code: J43.1 - Panlobular emphysema (2) CHF (congestive heart failure): Qualified Code: I50.9 - Congestive heart failure, unspecified congestive heart failure chronicity, unspecified congestive heart failure type (3) CAD (coronary artery disease): Qualified Code: I25.810 - Coronary artery disease involving coronary bypass graft of [place] heart without angina pectoris (4) DM type 2 (diabetes mellitus, type 2): Qualified Code: E11.9 - Type 2 diabetes mellitus without complication, without long-term current use of insulin (5) Atrial fibrillation: Qualified Code: I48.2 - Chronic atrial fibrillation Freda Rodriguez MD R2 Apr 23, 2016 08:52
[2016-04-23] MEDS: METOPROLOL TARTRATE 50 MG TAB PO SCH ×2 (09:31→20:38)
[2016-04-23] MEDS: diphenhydrAMINE HCL 25 MG CAP PO PRN ×3 (09:31→20:37)
[2016-04-23] MEDS: DOCUSATE CALCIUM 240 MG CAP PO SCH (09:31)
[2016-04-23] MEDS: FUROSEMIDE 20 MG TAB PO SCH (09:31)
[2016-04-23] MEDS: THIAMINE HCL 100 MG TAB PO SCH (09:31)
[2016-04-23] MEDS: MULTIVITAMINS/MINERALS THERAPEUTIC TAB PO SCH (09:31)
[2016-04-23] MEDS: SPIRONOLACTONE 25 MG TAB PO SCH (09:31)
[2016-04-23] MEDS: GABAPENTIN 400 MG CAP PO SCH ×3 (09:31→17:25)
[2016-04-23] MEDS: LACTIC ACID (AMMONIUM LACTATE) 12% LOTION 225 GM BTL TOPICAL SCH ×2 (09:32→21:50)
[2016-04-23] MEDS: BUDESONIDE-FORMOTEROL 160/4.5 MCG INHALER INH SCH ×2 (09:32→21:49)
--- NOTE | 2016-04-23 11:52 | PD.VS.PN ---
Pre-operative Note Pre-operative diagnosis: PAD, L LE ischemic tissue loss Planned procedure: L groin reconstruction, L LE bypass (cryo fem-AT), amputation of toes on LEFT foot (likely 1, 2) Labs: Laboratory Tests Test 04/23/16 06:25 White Blood Count 9.6 Red Blood Count 3.14 Hemoglobin 10.5 Hematocrit 30.8 Mean Corpuscular Volume 98.2 Mean Corpuscular Hemoglobin 33.4 Mean Corpuscular Hemoglobin 34.0 Concent Red Cell Distribution Width 13.5 Platelet Count 197 Mean Platelet Volume 8.4 Sodium Level 127 Potassium Level 4.4 Chloride Level 91 Carbon Dioxide Level 28.4 Anion Gap 8 Blood Urea Nitrogen 7 Creatinine 0.57 Estimat Glomerular Filtration 144 Rate Random Glucose 95 Calcium Level 8.8 Blood Type B POSITIVE Antibody Screen NEGATIVE Blood: T&C 2U OCTOR Imaging: Angiogram reviewed - AT likely best target, though severely diseased Orders: 1. NPO after MN 2. MIVF with NS (Na 127) but only 63/h because of CHF 3. Re-check INR now (last 1.8 on 04/17) Post-operative destination: CICU Operative site marked: Yes Consent: Informed consent has been obtained from Guanaco Salcedo. I have explained the procedure in detail and discussed the risks, benefits, and potential complications. All questions have been answered. Saúl Latif MD Apr 23, 2016 11:51
[2016-04-23 12:00] VITALS: BP 151/73; PULSE 77; RESP 20; TEMP 98.6; O2SAT 96
[2016-04-23 14:08] LABS: PROTHROMBIN TIME - PATIENT 10.8 SEC (9.8-11.6)
[2016-04-23 16:00] VITALS: BP 129/76; PULSE 75; RESP 20; TEMP 98.3; O2SAT 95
[2016-04-23 20:00] VITALS: BP 119/56; PULSE 89; RESP 18; TEMP 98.4; O2SAT 95
[2016-04-23] MEDS: ACETAMINOPHEN/HYDROcodone 325 MG/5 MG TAB PO PRN (20:37)
[2016-04-23] MEDS: ATORVASTATIN 40 MG TAB PO SCH (20:37)
[2016-04-23] MEDS: NS + KCL 20 MEQ INJ 1,000 ML IV SCH (23:46)
[2016-04-24] VITALS (16 sets, daily range): BP systolic 112–153; BP diastolic 55–73; PULSE 73–110; RESP 16–24; TEMP 98.1–98.7; O2SAT 93–97
[2016-04-24] MEDS: MORPHINE SULFATE 4 MG/ML INJ IV PRN ×2 (01:24→05:54)
[2016-04-24] MEDS: ACETAMINOPHEN/HYDROcodone 325 MG/10 MG TAB PO SCH ×3 (03:57→15:00)
[2016-04-24] MEDS: ENOXAPARIN SODIUM 100 MG/ML SYRINGE SQ SCH (05:58)
[2016-04-24] MEDS: INSULIN ASPART SUPPLEMENTAL SCALE SQ SCH ×4 (06:12→21:00)
[2016-04-24] MEDS ORDERED: HEPARIN SODIUM - IV 10,000 UNITS/10 ML VIAL ONE (06:30)
[2016-04-24] MEDS ORDERED: GELFOAM SIZE 100 ONE (06:30)
[2016-04-24] MEDS ORDERED: THROMBIN (TOPICAL) 5,000 UNIT VIAL ONE (06:30)
[2016-04-24] MEDS ORDERED: HEPARIN SODIUM - SQ 10,000 UNITS/ML VIAL ONE ×2 (06:30→06:46)
[2016-04-24] MEDS ORDERED: PROTAMINE SULFATE 50 MG/5 ML VIAL ONE (06:30)
[2016-04-24 06:50] LABS: HEMATOCRIT 31.1 % (39.0-51.0); MEAN CELL VOLUME 98.4 FL (80.0-100.0); MEAN CORPUSCULAR HGB CONC 33.5 % (32.0-36.0); PLATELET COUNT 217 TH/MM3 (150-450); RED BLOOD COUNT 3.16 MIL/MM3 (4.50-5.90); RED CELL DISTRIBUTION WIDTH 14.2 % (11.6-17.2); REVIEW FLAG FINAL; WHITE BLOOD COUNT 9.1 TH/MM3 (4.0-11.0)
[2016-04-24 07:18] LABS: BICARBONATE 28.1 MEQ/L (21.0-32.0); POTASSIUM 4.3 MEQ/L (3.5-5.1)
[2016-04-24] MEDS ORDERED: VANCOMYCIN HCL 1000 MG VIAL ONE (07:20)
[2016-04-24] MEDS ORDERED: SODIUM CHLOR 0.9% 250 ML INJ 250 ML ONE (07:21)
[2016-04-24] MEDS ORDERED: ACETAMINOPHEN 1000 MG/100 ML VIAL IV ONE (07:32)
[2016-04-24] MEDS ORDERED: HYDROmorphone HCL PF 2 MG/ML VIAL ONE (07:32)
[2016-04-24] MEDS: GABAPENTIN 400 MG CAP PO SCH ×3 (09:00→18:24)
[2016-04-24] MEDS: LACTIC ACID (AMMONIUM LACTATE) 12% LOTION 225 GM BTL TOPICAL SCH ×2 (09:00→21:00)
[2016-04-24] MEDS ORDERED: SODIUM CHLOR 0.9% 1000 ML INJ 1,000 ML IV SCH (10:36)
--- NOTE | 2016-04-24 10:36 | HHI.PR ---
cc: Nikos Trevino MD Immediate Post Op Note Procedure Date: Apr 24, 2016 Pre Op Diagnosis: PAD, tissue loss L LE Post Op Diagnosis: PAD, tissue loss L LE Surgeon: Saúl Latif Dinking Machine Operator(s): Ayden De Dios Procedure: L fem-AT with cryo Amputation of toes 1 and 2 LEFT foot Findings: severely calcified AT Bypass origin was patent ABF limb Additional Information: Palpable graft pulse at end of case Minimal toe bleeding during amputation 300 mL UOP Complications: none apparent Specimen(s) removed: Toes 1 and 2 LEFT foot Estimated blood loss: 200 mL Anesthesia: General Drains: None Fluids: 1200 mL x'oid IVF Patient to: PACU Patient Condition: Good Implant/Devices: SEE IMPLANT LOG (if applicable) Date/Time of Procedure: SEE SURGICAL CARE RECORD Saúl Latif MD Apr 24, 2016 10:36
[2016-04-24] MEDS ORDERED: fentaNYL CITRATE 250 MCG/5 ML AMP ONE (10:39)
[2016-04-24] MEDS ORDERED: ACETAMINOPHEN 325 MG TAB PO PRN (10:45)
[2016-04-24] MEDS ORDERED: GLUCAGON 1 MG/ML VIAL OTHER PRN (10:45)
[2016-04-24] MEDS ORDERED: NALOXONE HCL 0.4 MG/ML AMP IV PRN (10:45)
[2016-04-24] MEDS ORDERED: Post-op Orders (for Pharmacy) MISC OTHER ONE (10:45)
[2016-04-24] MEDS ORDERED: DEXTROSE 50% IN WATER 50 ML VIAL(D50) IV PUSH PRN (10:45)
[2016-04-24] MEDS ORDERED: *MEPERIDINE 25 MG INJ VIAL PERIprocedural Use ONLY ONE (10:48)
[2016-04-24] MEDS ORDERED: ALBUTEROL SULFATE 90 MCG/ACT HFA 8 GM INHALER INH PRN (11:00)
[2016-04-24] MEDS ORDERED: MORPHINE SULFATE 30 MG/30 ML PCA ONE (11:17)
[2016-04-24] MEDS ORDERED: *morphine SULFATE 8 MG/ML PERIprocedure ONLY ONE ×3 (11:18→13:13)
[2016-04-24] MEDS ORDERED: PHENYLEPH/NS 1000 MCG/10 ML SYR IV ONE (12:00)
[2016-04-24] MEDS ORDERED: NEOSTIGMINE 3 MG/3 ML SYR IV ONE (12:00)
[2016-04-24] MEDS ORDERED: ePHEDrine/NS 50 MG/5 ML SYR IV ONE (12:00)
[2016-04-24] MEDS ORDERED: ONDANSETRON HCL 4 MG/2 ML VIAL IV PUSH ONE (12:00)
[2016-04-24] MEDS ORDERED: INSULIN NovoLIN REGULAR SUPPLEMENTAL SCALE SQ SCH (12:00)
[2016-04-24] MEDS ORDERED: PROPOFOL 200 MG/20 ML AMP IV ONE (12:00)
[2016-04-24] MEDS ORDERED: LACTATED RINGER'S 1000 ML INJ 1,000 ML IV ONE (12:00)
--- NOTE | 2016-04-24 12:07 | HHI.FPPN ---
Subjective Remarks Overnight, DEBI. AF. HTN to 150/70. Good I/O, but negative balance last 5 days. Continue to monitor. Bypass surgery planned for today- patient was in OR during rounding. Will attempt to see patient later today. 4pm- pt still groggy and sedated from surgery. Resting comfortably. Pulse 88. Breathing well on RA. Aside from pain at incision site, no complaints, per nursing. Objective Vitals Vital Signs Date Time Temp Pulse Resp B/P Pulse Ox O2 Delivery O2 Flow Rate FiO2 04/24/16 04:00 98.1 76 18 153/67 97 04/24/16 00:45 97 Nasal Cannula 3.00 04/24/16 00:00 98.2 73 18 140/67 96 04/23/16 20:00 Nasal Cannula 2.00 04/23/16 20:00 98.4 89 18 119/56 95 04/23/16 16:00 98.3 75 20 129/76 95 I/O 04/23/16 04/23/16 04/23/16 04/24/16 04/24/16 04/24/16 07:00 15:00 23:00 07:00 15:00 23:00 Intake Total 726 ml 720 ml 240 ml 293 ml Output Total 1450 ml 650 ml 1075 ml 450 ml Balance -724 ml 70 ml -835 ml -157 ml Intake Oral 720 ml 720 ml 240 ml 0 ml IV Total 6 ml 293 ml Output Urine Total 1450 ml 650 ml 1075 ml 450 ml # Bowel Movements 1 1 0 0 Result Diagram: 04/24/16 0557 04/24/16 0557 Imaging Last Impressions Neck CTA 04/19/16 0000 Signed Impressions: Service Date/Time: April 22:04 - CONCLUSION: Carotid stenosis bilaterally both felt to be hemodynamically significant, right appears worse than the left however the left carotid appears partially collapsed. eSmaj Holden MD FACR Lower Extremity Ultrasound 04/18/16 0000 Signed Impressions: Service Date/Time: Monday, April 18, 2016 11:11 - CONCLUSION: No evidence of deep venous thrombosis. Saúl Hackett MD Chest X-Ray 04/17/16 1804 Signed Impressions: Service Date/Time: Sunday, April 17, 2016 18:20 - CONCLUSION: No acute disease. Joao Stoddard MD Aorta w/Runoff CTA 04/17/16 0000 Signed Impressions: Service Date/Time: Sunday, April 17, 2016 17:47 - CONCLUSION: In the left leg of concern, inflow is satisfactory. Superficial femoral artery is totally occluded. The popliteal reconstitutes however it is severely diseased throughout. Tibial vessels are patent, anterior tibial dominant. David Lazcano MD Objective Remarks CONST: male lying supine, sleeping comfortably. DERM: LLE bandaged, covered by sheet. HEENT: PERRL. MMM. CV: RRR. No murmurs. RESP: End expiratory wheezing bilateral GI: Abdomen NDNT. MSK: 2+ pitting edema LE NEUROL: Grossly motor and sensory intact. PSYCH: Appropriate affect. Moderate insight. Procedures 04/24/16- LLE bypass, groin reconstruction, likely amputation toes 1 and 2 of L foot A/P Assessment and Plan 65y male w PAD, Afib, CAD s/p CABG, DM2, tobacco abuse, and alcoholism , hospitalized 04/17/15 for gangrenous L great toe. Discharge Planning Unclear timetable, pending planned LLE bypass 04/24/16 and recovery. Likely d/c [facility] vs other (will need PT to re-eval post sx) SDW: Dr. Kendall Problem List: (1) Gangrenous toe Status: Chronic Plan: PE significant necrotic great left toe and portion of second toe secondary to severe PAD and tobacco abuse. Will need LLE bypass to salvage extremity. CTA runoff with severe occlusions (Inflow satisfactory, but supf femoral artery totally concluded, severely diseased popliteal, tibial vessels patent). Angiogram LLE (04/19): patent ABF limb and profunda, occluded L SFA & popliteal artery, occluded L peroneal and PT, patent but diseased AT, need groin reconstruction and fem-AT US venous mapping showed saphenous veins appropriate for surgery Cardiology consulted, gave clearance for surgery 04/19 CTA significant for hemodynamically significant carotid stenosis bilaterally, right appears worse than left, however the left carotid appears partially collapsed. Plan: - Vascular surgery (Dr. Trevino), Cardiology (Dr Gary) consulted * LLE bypass planned 04/24/16 * Pain control: continue Gabapentin 800mg TID, [place] 5-325mg PO Q4H PRN pain 5-3 , [place] 10-325mg PO Q4H PO sched, morphine 4mg IV q3h PRN breakthrough pain * Continue gabapentin 800mg TID * Continue therapeutic Lovenox (Hold Coumadin) * PT recommendations: [facility], likely need to re-eval s/p surgery (2) Tobacco abuse Status: Chronic Plan: Nicotine patch contraindicated due to PAD --Smoking cessation counseling provided (3) PAD (peripheral artery disease) Status: Chronic Plan: Severe. history of multiple extensive and complex surgeries -see plan for gangrenous toe (4) Lower limb ischemia Status: Chronic Plan: See gangrenous toe (5) Neuropathy Status: Chronic Plan: see gangrenous toe (6) CAD (coronary artery disease) Status: Acute Plan: Cardiac cath July 2014 showing EF of 25%. Severe three-vessel coronary disease. Patent 3/3 bypass grafts. -Aspirin contraindicated due to hx melena (05/2015) -Continue metoprolol 50mg BID -Continue home Atorvastatin (7) CHF (congestive heart failure) Status: Chronic Plan: EF 2014 25%. Continue home Lasix 20mg PO daily Continue home spironolactone 25mg PO daily (8) Bilateral carotid artery stenosis Status: Chronic Plan: Cardiology consulted, gave clearance for surgery 04/19 CTA significant for hemodynamically significant carotid stenosis bilaterally, right appears worse than left, however the left carotid appears partially collapsed. (9) Atrial fibrillation Status: Chronic Plan: Hold home Coumadin. INR subtherapeutic at 1.8 on admission. -Continue BB (under CAD) Per Vascular Surgery recommendations, hold Coumadin and continue Lovenox 90mg ( 1mg/kg) SQ Q12H (10) COPD (chronic obstructive pulmonary disease) Status: Chronic Plan: Stable. Breathing well on RA. Continue home Advair, Albuterol neb Q2H PRN, oxygen supplementation PRN for to maintain saturations 88%+ (11) DM type 2 (diabetes mellitus, type 2) Status: Chronic Plan: Hold home metformin.. SSI d/c as blood glucose wnl consistently. -Continue diabetic diet (12) Alcohol intake above recommended sensible limits Status: Chronic Plan: Daily beer drinker. Denies history of seizures or withdrawals, quit offended to be asked this. -Decreased alcohol consumption recommended -Daily multivitamin, vitamin B1 (13) Chronic hyponatremia Status: Chronic Plan: likely secondary to alcohol use above recommended limits -Daily BMPs, do not correct overly quickly, slowly improving (14) Nutrition, metabolism, and development symptoms Status: Chronic Plan: FEN/PPX Fluids: PO Electrolytes: Chronic Hyponatremia, stable. Continue to monitor and replete as needed. Nutrition: Heart Healthy, 1800 ADA cons carb, nothing by mouth after midnight in anticipation of surgery in the a.m. DVT PPx: Therapeutic Lovenox GI ppx: Protonix (started 04/24- ) Problem Qualifiers (1) CHF (congestive heart failure): Qualified Code: I50.9 - Congestive heart failure, unspecified congestive heart failure chronicity, unspecified congestive heart failure type (2) COPD (chronic obstructive pulmonary disease): Qualified Code: J43.1 - Panlobular emphysema (3) DM type 2 (diabetes mellitus, type 2): Qualified Code: E11.9 - Type 2 diabetes mellitus without complication, without long-term current use of insulin Ninoska Egan MD R1 Apr 24, 2016 12:07
[2016-04-24] MEDS: MORPHINE SULFATE 30 MG/30 ML PCA IV SCH (12:28)
[2016-04-24 12:53] LABS: HEMATOCRIT 27.9 % (39.0-51.0); MEAN CELL VOLUME 98.9 FL (80.0-100.0); MEAN CORPUSCULAR HEMOGLOBIN 33.5 PG (27.0-34.0); MEAN CORPUSCULAR HGB CONC 33.9 % (32.0-36.0); PLATELET COUNT 214 TH/MM3 (150-450); RED BLOOD COUNT 2.82 MIL/MM3 (4.50-5.90); RED CELL DISTRIBUTION WIDTH 13.9 % (11.6-17.2); REVIEW FLAG FINAL; WHITE BLOOD COUNT 9.8 TH/MM3 (4.0-11.0)
[2016-04-24 13:06] LABS: APTT (PATIENT) 39.5 SEC (24.3-30.1)
[2016-04-24] MEDS ORDERED: *diphenhydrAMINE HCL 50 MG/ML VIAL PERIprocedural Use ONLY ONE (13:18)
[2016-04-24] MEDS: PCA - TOTAL MG MORPHINE DELIVERED PER SHIFT SCH ×2 (14:00→21:10)
[2016-04-24] MEDS: HEPARIN-D5W INJ 250 ML IV SCH (15:33)
[2016-04-24] MEDS: MULTIVITAMINS/MINERALS THERAPEUTIC TAB PO SCH (15:39)
[2016-04-24] MEDS: SPIRONOLACTONE 25 MG TAB PO SCH (15:39)
[2016-04-24] MEDS: THIAMINE HCL 100 MG TAB PO SCH (15:39)
[2016-04-24] MEDS: FUROSEMIDE 20 MG TAB PO SCH (15:40)
[2016-04-24] MEDS: METOPROLOL TARTRATE 50 MG TAB PO SCH ×2 (15:41→21:10)
[2016-04-24] MEDS: NS + KCL 20 MEQ INJ 1,000 ML IV SCH (15:53)
[2016-04-24 17:35] LABS: APTT (PATIENT) 39.1 SEC (24.3-30.1)
[2016-04-24] MEDS: diphenhydrAMINE HCL 25 MG CAP PO PRN (18:19)
[2016-04-24] MEDS: BUDESONIDE-FORMOTEROL 160/4.5 MCG INHALER INH SCH (21:00)
[2016-04-24] MEDS: DOCUSATE CALCIUM 240 MG CAP PO SCH (21:09)
[2016-04-24] MEDS: ATORVASTATIN 40 MG TAB PO SCH (21:10)
[2016-04-24] MEDS: PANTOPRAZOLE SOD 40 MG DELAYED RELEASE TAB PO SCH (21:10)
[2016-04-25] VITALS (23 sets, daily range): BP systolic 101–129; BP diastolic 56–72; PULSE 82–119; RESP 13–25; TEMP 98.5–100.2; O2SAT 94–98
[2016-04-25] MEDS: MORPHINE SULFATE 30 MG/30 ML PCA IV SCH (00:27)
[2016-04-25] MEDS: LACTATED RINGER'S 1000 ML IV SCH (04:15)
[2016-04-25] MEDS: PCA - TOTAL MG MORPHINE DELIVERED PER SHIFT SCH ×2 (06:00→22:00)
[2016-04-25 06:10] LABS: AUTOMATED NEUTROPHIL # 9.2 TH/MM3 (1.8-7.7); BASOPHIL % 0.3 % (0.0-2.0); EOSINOPHIL # 0.1 TH/MM3 (0-0.4); EOSINOPHIL % 0.8 % (0.0-4.0); HEMATOCRIT 25.2 % (39.0-51.0); HEMO FLAGS DIFF FINAL; LYMPH % 6.3 % (9.0-44.0); LYMPHOCYTE # 0.7 TH/MM3 (1.0-4.8); MEAN CELL VOLUME 99.3 FL (80.0-100.0); MEAN CORPUSCULAR HGB CONC 34.3 % (32.0-36.0); MONO % 9.8 % (0.0-8.0); NEUT % 82.8 % (16.0-70.0); PLATELET COUNT 217 TH/MM3 (150-450); RED BLOOD COUNT 2.54 MIL/MM3 (4.50-5.90); RED CELL DISTRIBUTION WIDTH 13.8 % (11.6-17.2); WHITE BLOOD COUNT 11.1 TH/MM3 (4.0-11.0)
[2016-04-25 06:26] LABS: ALKALINE PHOSPHATASE 76 U/L (45-117); ALT (GPT) 17 U/L (12-78); ANION GAP 8 MEQ/L (5-15); AST (GOT) 25 U/L (15-37); BICARBONATE 25.8 MEQ/L (21.0-32.0); BLOOD UREA NITROGEN 7 MG/DL (7-18); CHLORIDE 95 MEQ/L (98-107); GLOMERULAR FILTRATION RATE 147 ML/MIN (>89); POTASSIUM 4.2 MEQ/L (3.5-5.1); SODIUM (NA) 129 MEQ/L (136-145); TOTAL BILIRUBIN ADULT 0.4 MG/DL (0.2-1.0)
[2016-04-25] MEDS: INSULIN ASPART SUPPLEMENTAL SCALE SQ SCH ×2 (06:49→21:00)
--- NOTE | 2016-04-25 07:22 | PD.VS.PN ---
Subjective POD #: 1 Procedure(s): L fem-AT bypass with cryo; amputation of toes 1-2 Subjective/Hospital Course C/o incisional pain overnight. No nausea. [place]ys[place] diet. Started on low intensity heparin gtt for graft protection Objective Vitals/I&O Date Time Temp Pulse Resp B/P Pulse Ox O2 Delivery O2 Flow Rate FiO2 04/25/16 07:16 98 Nasal Cannula 2.00 04/25/16 06:00 21 04/25/16 02:00 84 21 116/63 95 04/25/16 02:00 84 04/25/16 01:00 82 04/25/16 00:27 21 04/25/16 00:00 86 04/25/16 00:00 100.2 86 25 119/72 95 04/24/16 23:00 97 Nasal Cannula 2.00 04/24/16 23:00 90 04/24/16 22:00 97 04/24/16 22:00 97 16 126/73 97 04/24/16 21:14 95 Nasal Cannula 2.00 04/24/16 21:00 106 04/24/16 20:00 101 04/24/16 20:00 101 20 121/63 97 04/24/16 19:00 96 Nasal Cannula 2.00 04/24/16 19:00 98 04/24/16 18:18 90 18 124/55 97 04/24/16 18:17 89 04/24/16 17:08 110 04/24/16 16:37 98.7 100 22 114/56 97 04/24/16 16:37 97 Nasal Cannula 2.00 04/24/16 16:09 90 04/24/16 15:07 95 04/24/16 14:00 105 24 112/72 93 04/24/16 13:00 108 16 124/77 96 Nasal Cannula 2 04/24/16 12:30 106 16 127/81 96 Nasal Cannula 2 04/24/16 12:28 16 04/24/16 12:15 90 16 148/84 97 Nasal Cannula 2 04/24/16 12:00 96 16 146/88 96 Nasal Cannula 2 04/24/16 11:45 92 16 149/90 95 Nasal Cannula 2 04/24/16 11:30 102 16 158/95 96 Nasal Cannula 2 04/24/16 11:15 94 16 174/92 95 Nasal Cannula 2 04/24/16 11:00 98 16 171/95 96 Nasal Cannula 2 04/24/16 10:45 104 16 170/98 95 Nasal Cannula 2 04/24/16 10:33 97.7 108 16 163/95 96 Nasal Cannula 2 Exam: Groin vac in place Lateral thigh incision with minimal swelling - dressing intact lateral calf incision with minimal swelling palpable graft pulse lateral to knee toe amputation site with some bleeding, no odor, wound margins viable Laboratory Laboratory Tests Test 04/24/16 04/24/16 04/24/16 04/25/16 12:15 17:14 21:26 05:00 White Blood Count 9.8 11.1 Red Blood Count 2.82 2.54 Hemoglobin 9.4 8.6 Hematocrit 27.9 25.2 Mean Corpuscular Volume 98.9 99.3 Mean Corpuscular Hemoglobin 33.5 34.0 Mean Corpuscular Hemoglobin 33.9 34.3 Concent Red Cell Distribution Width 13.9 13.8 Platelet Count 214 217 Mean Platelet Volume 8.7 8.5 Prothrombin Time 11.0 Prothromb Time International 1.0 Ratio Activated Partial 39.5 39.1 44.0 Thromboplast Time Neutrophils (%) (Auto) 82.8 Lymphocytes (%) (Auto) 6.3 Monocytes (%) (Auto) 9.8 Eosinophils (%) (Auto) 0.8 Basophils (%) (Auto) 0.3 Neutrophils # (Auto) 9.2 Lymphocytes # (Auto) 0.7 Monocytes # (Auto) 1.1 Eosinophils # (Auto) 0.1 Basophils # (Auto) 0.0 CBC Comment DIFF FINAL Differential Comment Sodium Level 129 Potassium Level 4.2 Chloride Level 95 Carbon Dioxide Level 25.8 Anion Gap 8 Blood Urea Nitrogen 7 Creatinine 0.56 Estimat Glomerular Filtration 147 Rate Random Glucose 128 Calcium Level 8.3 Total Bilirubin 0.4 Aspartate Amino Transf 25 (AST/SGOT) Alanine Aminotransferase 17 (ALT/SGPT) Alkaline Phosphatase 76 Total Protein 6.7 Albumin 2.6 Assessment and Plan Assessment: (1) Cellulitis of both lower extremities Status: Chronic (2) PAD (peripheral artery disease) Status: Chronic Plan 1. Continue hep gtt (low intensity) for graft protection 2. PT/OOB/ambulate - PT consult ordered 3. Continue URGENT CARE NURSE PRACTITIONER for pain control; KVO IVF 4. recheck CBC tomorrow (Hct) and BMP tomorrow (Na) 5. Cardiac diet 6. ASA/statin/betablocker for cardio-protection 7. W to D L toe amputation sites BID Discharge Planning likely inpatient rehab, probably in 5-7 days Saúl Latif MD Apr 25, 2016 07:22
[2016-04-25] MEDS: MORPHINE SULFATE 4 MG/ML INJ IV PRN ×4 (07:43→21:05)
[2016-04-25] MEDS: NS + KCL 20 MEQ INJ 1,000 ML IV SCH ×2 (07:46→23:39)
[2016-04-25] MEDS: BUDESONIDE-FORMOTEROL 160/4.5 MCG INHALER INH SCH ×2 (09:00→21:05)
[2016-04-25] MEDS: LACTIC ACID (AMMONIUM LACTATE) 12% LOTION 225 GM BTL TOPICAL SCH (09:00)
[2016-04-25] MEDS: METOPROLOL TARTRATE 50 MG TAB PO SCH ×2 (09:00→21:03)
[2016-04-25] MEDS: ASPIRIN EC 325 MG TABEC PO SCH (09:15)
[2016-04-25] MEDS: SPIRONOLACTONE 25 MG TAB PO SCH (09:15)
[2016-04-25] MEDS: THIAMINE HCL 100 MG TAB PO SCH (09:15)
[2016-04-25] MEDS: MULTIVITAMINS/MINERALS THERAPEUTIC TAB PO SCH (09:16)
[2016-04-25] MEDS: ACETAMINOPHEN/HYDROcodone 325 MG/10 MG TAB PO PRN ×2 (09:16→12:56)
[2016-04-25] MEDS: FUROSEMIDE 20 MG TAB PO SCH (09:17)
[2016-04-25] MEDS: GABAPENTIN 400 MG CAP PO SCH ×3 (09:17→21:10)
--- NOTE | 2016-04-25 09:39 | HHI.FPPN ---
Subjective Remarks Overnight, nurse reports many calls for pain management, despite GASOLINE PUMP MECHANIC pump and PRN Percocet and PRN morphine on board. Yesterday PM, 25mg morphine. Overnight, 10mg morphine. This AM, 15mg Febrile yesterday to 100.2F, to be expected after surgery, resolved this AM Breathing well on 2L NC. Denies f/c, n/v. [place] like "run over with two trucks". Objective Vitals Vital Signs Date Time Temp Pulse Resp B/P Pulse Ox O2 Delivery O2 Flow Rate FiO2 04/25/16 07:16 98 Nasal Cannula 2.00 04/25/16 06:00 92 13 129/63 97 04/25/16 06:00 92 04/25/16 06:00 21 04/25/16 05:00 86 04/25/16 04:00 99.0 86 25 122/60 98 04/25/16 04:00 86 04/25/16 03:00 97 Nasal Cannula 2.00 04/25/16 03:00 89 04/25/16 02:00 84 21 116/63 95 04/25/16 02:00 84 04/25/16 01:00 82 04/25/16 00:27 21 04/25/16 00:00 86 04/25/16 00:00 100.2 86 25 119/72 95 04/24/16 23:00 97 Nasal Cannula 2.00 04/24/16 23:00 90 04/24/16 22:00 97 04/24/16 22:00 97 16 126/73 97 04/24/16 21:14 95 Nasal Cannula 2.00 04/24/16 21:00 106 04/24/16 20:00 101 04/24/16 20:00 101 20 121/63 97 04/24/16 19:00 96 Nasal Cannula 2.00 04/24/16 19:00 98 04/24/16 18:18 90 18 124/55 97 04/24/16 18:17 89 04/24/16 17:08 110 04/24/16 16:37 98.7 100 22 114/56 97 04/24/16 16:37 97 Nasal Cannula 2.00 04/24/16 16:09 90 04/24/16 15:07 95 04/24/16 14:00 105 24 112/72 93 04/24/16 13:00 108 16 124/77 96 Nasal Cannula 2 04/24/16 12:30 106 16 127/81 96 Nasal Cannula 2 04/24/16 12:28 16 04/24/16 12:15 90 16 148/84 97 Nasal Cannula 2 04/24/16 12:00 96 16 146/88 96 Nasal Cannula 2 04/24/16 11:45 92 16 149/90 95 Nasal Cannula 2 04/24/16 11:30 102 16 158/95 96 Nasal Cannula 2 04/24/16 11:15 94 16 174/92 95 Nasal Cannula 2 04/24/16 11:00 98 16 171/95 96 Nasal Cannula 2 04/24/16 10:45 104 16 170/98 95 Nasal Cannula 2 04/24/16 10:33 97.7 108 16 163/95 96 Nasal Cannula 2 I/O 04/24/16 04/24/16 04/24/16 04/25/16 04/25/16 04/25/16 07:00 15:00 23:00 07:00 15:00 23:00 Intake Total 293 ml 50 ml 806 ml 1477 ml Output Total 450 ml 150 ml 200 ml 600 ml Balance -157 ml -100 ml 606 ml 877 ml Intake Oral 0 ml 480 ml 820 ml IV Total 293 ml 50 ml 326 ml 657 ml Output Urine Total 450 ml 150 ml 200 ml 600 ml # Bowel Movements 0 Result Diagram: 04/25/16 0500 04/25/16 0500 Imaging Last Impressions Neck CTA 04/19/16 0000 Signed Impressions: Service Date/Time: April 22:04 - CONCLUSION: Carotid stenosis bilaterally both felt to be hemodynamically significant, right appears worse than the left however the left carotid appears partially collapsed. Semaj Holden MD FACR Lower Extremity Ultrasound 04/18/16 0000 Signed Impressions: Service Date/Time: Monday, April 18, 2016 11:11 - CONCLUSION: No evidence of deep venous thrombosis. Saúl Hackett MD Chest X-Ray 04/17/16 1804 Signed Impressions: Service Date/Time: Sunday, April 17, 2016 18:20 - CONCLUSION: No acute disease. Joao Stoddard MD Aorta w/Runoff CTA 04/17/16 0000 Signed Impressions: Service Date/Time: Sunday, April 17, 2016 17:47 - CONCLUSION: In the left leg of concern, inflow is satisfactory. Superficial femoral artery is totally occluded. The popliteal reconstitutes however it is severely diseased throughout. Tibial vessels are patent, anterior tibial dominant. David Lazcano MD Objective Remarks CONST: male lying supine, sleeping comfortably. DERM: LLE wrapped in JOSEFINA bandage. No erythema. HEENT: PERRL. MMM. CV: RRR. No murmurs. RESP: End expiratory wheezing bilateral. Moderate air movement. Intermittent wet cough with clear sputum production. GI: Abdomen NDNT. MSK: Muscle tone symmetrical NEUROL: Grossly motor and sensory intact. PSYCH: Appropriate affect. Moderate insight. Procedures 04/24/16- LLE bypass, groin reconstruction, likely amputation toes 1 and 2 of L foot A/P Assessment and Plan 65y male w PAD, DM2, and tobacco abuse, hospitalized 04/17/15 for gangrenous L great toe. S/p L groin reconstruction and amputation 1st and 2nd toes 04/24/16. Discharge Planning Days, pending recovery and recommendations from [facility]. Likely d/c [facility] vs other ( will need PT to re-eval post sx) DW: Dr Kendall, Dr Angulo Problem List: (1) Gangrenous toe Status: Chronic Plan: Admitted with dry gangrene of 1st and 2nd L toes secondary to severe PAD and ongoing tobacco abuse. 04/24/16: s/p amputation 1st and 2nd toes, L groin reconstruction, LLE bypass Plan: - Vascular surgery (Dr. Trevino), Cardiology (Dr Gary) consulted * Pain management: GASOLINE PUMP MECHANIC pump, [place] q4h PRN pain 6-10, morphine PRN breakthrough * Continue gabapentin 800mg TID * Therapeutic Lovenox (Hold Coumadin) * Continue daily PT, recommendations: [facility], likely need to re-eval s/p surgery * Wound Care Imaging Carotid artery U/S (04/19): hemodynamically significant carotid stenosis bilaterally, right appears worse than left, however the left carotid appears partially collapsed. CTA runoff :with severe occlusions (Inflow satisfactory, but supf femoral artery totally concluded, severely diseased popliteal, tibial vessels patent). Angiogram LLE (04/19): patent ABF limb and profunda, occluded L SFA & popliteal artery, occluded L peroneal and PT, patent but diseased AT, need groin reconstruction and fem-AT US venous mapping :saphenous veins appropriate for surgery (2) Tobacco abuse Status: Chronic Plan: Nicotine patch contraindicated due to PAD --Smoking cessation counseling provided (3) PAD (peripheral artery disease) Status: Chronic Plan: Severe. history of multiple extensive and complex surgeries -see plan for gangrenous toe (4) CAD (coronary artery disease) Status: Acute Plan: Cardiac cath July 2014 showing EF of 25%. Severe three-vessel coronary disease. Patent 3/3 bypass grafts. -Aspirin contraindicated due to hx melena (05/2015) -Continue metoprolol 50mg BID -Continue home Atorvastatin (5) CHF (congestive heart failure) Status: Chronic Plan: EF 2014 25%. Continue home Lasix 20mg PO daily Continue home spironolactone 25mg PO daily (6) Bilateral carotid artery stenosis Status: Chronic Plan: Cardiology consulted, gave clearance for surgery. Carotid artery u/s significant for b/l stenosis, R > L. -discuss with cardiology plan for outpt vs inpt treatment (7) Atrial fibrillation Status: Chronic Plan: Hold home Coumadin. INR subtherapeutic at 1.8 on admission. -Continue BB (under CAD) Per Vascular Surgery recommendations, hold Coumadin and continue Lovenox 90mg ( 1mg/kg) SQ Q12H (8) COPD (chronic obstructive pulmonary disease) Status: Chronic Plan: Stable. Breathing well on RA. Continue home Advair, Albuterol neb PRN, O2 supplementation PRN for to maintain saturations 88%+ (9) DM type 2 (diabetes mellitus, type 2) Status: Chronic Plan: Hold home metformin.. SSI d/c as blood glucose wnl consistently. -Continue diabetic diet (10) Chronic hyponatremia Status: Chronic Plan: likely secondary to alcohol use above recommended limits -Daily BMPs, do not correct overly quickly, slowly improving (11) Status post amputation of toe of left foot Status: Acute Plan: 04/24/16, see gangrenous toe (12) Neuropathy Status: Chronic Plan: see gangrenous toe (13) Lower limb ischemia Status: Chronic Plan: See gangrenous toe (14) Alcohol intake above recommended sensible limits Status: Chronic Plan: Daily beer drinker. Denies history of seizures or withdrawals, offended to be asked this. -Decreased alcohol consumption recommended, daily multivitamin, vitamin B1 (15) Nutrition, metabolism, and development symptoms Status: Chronic Plan: FEN/PPX Fluids: PO Electrolytes: Chronic Hyponatremia, stable. Continue to monitor and replete as needed. Nutrition: Heart Healthy, 1800 ADA cons carb, nothing by mouth after midnight in anticipation of surgery in the a.m. DVT PPx: Therapeutic Lovenox GI ppx: Protonix (started 04/24- ) Problem Qualifiers (1) CHF (congestive heart failure): Qualified Code: I50.9 - Congestive heart failure, unspecified congestive heart failure chronicity, unspecified congestive heart failure type (2) COPD (chronic obstructive pulmonary disease): Qualified Code: J43.1 - Panlobular emphysema (3) DM type 2 (diabetes mellitus, type 2): Qualified Code: E11.9 - Type 2 diabetes mellitus without complication, without long-term current use of insulin Ninoska Egan MD R1 Apr 25, 2016 09:39
[2016-04-25] MEDS ORDERED: walking boot (14:37)
[2016-04-25] MEDS: ATORVASTATIN 40 MG TAB PO SCH (21:02)
[2016-04-25] MEDS: PANTOPRAZOLE SOD 40 MG DELAYED RELEASE TAB PO SCH (21:03)
[2016-04-26] VITALS (27 sets, daily range): BP systolic 93–124; BP diastolic 47–88; PULSE 66–101; RESP 16–20; TEMP 97.9–99.4; O2SAT 92–100
[2016-04-26] MEDS: LACTIC ACID (AMMONIUM LACTATE) 12% LOTION 225 GM BTL TOPICAL SCH ×3 (00:07→20:56)
[2016-04-26] MEDS: DOCUSATE CALCIUM 240 MG CAP PO SCH ×2 (00:07→20:54)
[2016-04-26] MEDS: MORPHINE SULFATE 30 MG/30 ML PCA IV SCH ×3 (00:23→20:55)
[2016-04-26] MEDS: HEPARIN-D5W INJ 250 ML IV SCH (00:23)
[2016-04-26] MEDS: LACTATED RINGER'S 1000 ML IV SCH (04:15)
[2016-04-26] MEDS: ACETAMINOPHEN/HYDROcodone 325 MG/10 MG TAB PO PRN ×3 (05:32→11:01)
[2016-04-26] MEDS: PCA - TOTAL MG MORPHINE DELIVERED PER SHIFT SCH ×3 (06:00→21:19)
[2016-04-26] MEDS: INSULIN ASPART SUPPLEMENTAL SCALE SQ SCH (06:25)
[2016-04-26 06:26] LABS: HEMATOCRIT 21.4 % (39.0-51.0); MEAN CELL VOLUME 99.8 FL (80.0-100.0); MEAN CORPUSCULAR HEMOGLOBIN 34.4 PG (27.0-34.0); MEAN CORPUSCULAR HGB CONC 34.5 % (32.0-36.0); PLATELET COUNT 222 TH/MM3 (150-450); RED BLOOD COUNT 2.14 MIL/MM3 (4.50-5.90); RED CELL DISTRIBUTION WIDTH 13.8 % (11.6-17.2); REVIEW FLAG FINAL
[2016-04-26 06:39] LABS: APTT (PATIENT) 65.1 SEC (24.3-30.1)
[2016-04-26 06:43] LABS: BICARBONATE 25.5 MEQ/L (21.0-32.0); MAGNESIUM 1.8 MG/DL (1.5-2.5); POTASSIUM 4.1 MEQ/L (3.5-5.1)
[2016-04-26] MEDS: SPIRONOLACTONE 25 MG TAB PO SCH (08:41)
[2016-04-26] MEDS: METOPROLOL TARTRATE 50 MG TAB PO SCH ×2 (08:41→20:56)
[2016-04-26] MEDS: ASPIRIN EC 325 MG TABEC PO SCH (08:41)
[2016-04-26] MEDS: GABAPENTIN 400 MG CAP PO SCH ×3 (08:41→17:12)
[2016-04-26] MEDS: FUROSEMIDE 20 MG TAB PO SCH (08:41)
[2016-04-26] MEDS: BUDESONIDE-FORMOTEROL 160/4.5 MCG INHALER INH SCH ×2 (08:43→20:56)
--- NOTE | 2016-04-26 10:33 | PD.VS.PN ---
Subjective POD #: 2 Procedure(s): L fem-AT bypass with cryo; amputation of toes 1-2 Subjective/Hospital Course Pt is a 65/M who is alert and oriented times 3 in NAD, GCS 15 Pt is resting in bed comfortably c/o slight discomfort to incision sites ( Diana Olivera) Objective Vitals/I&O Date Time Temp Pulse Resp B/P Pulse Ox O2 Delivery O2 Flow Rate FiO2 04/26/16 08:39 18 04/26/16 07:38 99 Nasal Cannula 3.00 04/26/16 06:00 88 20 120/88 93 04/26/16 06:00 88 04/26/16 06:00 22 04/26/16 04:00 101 04/26/16 03:00 86 04/26/16 03:00 97.9 101 18 102/66 94 04/26/16 03:00 96 Nasal Cannula 2.00 04/26/16 01:00 88 04/26/16 00:30 18 04/26/16 00:23 18 04/26/16 00:00 90 18 93/47 95 04/25/16 23:00 95 Nasal Cannula 2.00 04/25/16 23:00 90 04/25/16 22:00 22 04/25/16 21:10 18 04/25/16 20:39 Nasal Cannula 3.00 04/25/16 20:00 98.6 119 22 107/67 94 04/25/16 20:00 110 04/25/16 19:00 95 Nasal Cannula 2.00 04/25/16 19:00 119 04/25/16 18:00 84 04/25/16 18:00 98.9 86 25 118/62 98 04/25/16 17:00 84 04/25/16 16:00 98.5 86 25 101/60 98 04/25/16 16:00 96 Nasal Cannula 2.00 04/25/16 16:00 82 04/25/16 15:00 82 04/25/16 14:00 88 04/25/16 14:00 104/62 04/25/16 13:00 82 04/25/16 12:00 88 04/25/16 12:00 98.6 86 25 101/58 98 04/25/16 11:48 96 Nasal Cannula 2.00 04/25/16 11:00 84 04/26/16 04/26/16 04/26/16 07:00 15:00 23:00 Intake Total 1115 ml Output Total 400 ml Balance 715 ml Exam: Groin vac in place Lateral thigh incision with minimal swelling - dressing dry and intact lateral calf incision with zan intact no swelling drainage or redness noted palpable graft pulse lateral to knee toe amputation site with no bleeding, no odor, wound margins viable Pulses: pedal pulses via doppler bilat Laboratory Laboratory Tests Test 04/26/16 05:35 White Blood Count 11.0 Red Blood Count 2.14 Hemoglobin 7.4 Hematocrit 21.4 Mean Corpuscular Volume 99.8 Mean Corpuscular Hemoglobin 34.4 Mean Corpuscular Hemoglobin 34.5 Concent Red Cell Distribution Width 13.8 Platelet Count 222 Mean Platelet Volume 8.5 Activated Partial 65.1 Thromboplast Time Sodium Level 129 Potassium Level 4.1 Chloride Level 93 Carbon Dioxide Level 25.5 Anion Gap 11 Blood Urea Nitrogen 11 Creatinine 0.68 Estimat Glomerular Filtration 117 Rate Random Glucose 107 Calcium Level 8.4 Magnesium Level 1.8 (Diana Olivera) Assessment and Plan Assessment: (1) Cellulitis of both lower extremities Status: Chronic (2) PAD (peripheral artery disease) Status: Chronic Plan 1. Continue hep gtt (low intensity) for graft protection 2. Continue PT/OOB/ambulate 3. Continue PROBATION MANAGER for pain control; KVO IVF 4. Transfuse 2 Units RBC's today, check H & H one hour post last unit 5. Cardiac diet 6. ASA/statin/betablocker for cardio-protection 7. [place] W to D L toe amputation sites BID Discharge Planning likely inpatient rehab, probably in 5-7 days (Diana Olivera) Plan Agree with above note. Seen this morning on rounds with EG. Saúl Latif MD FACS (Saúl Latif MD) Diana Olivera Apr 26, 2016 10:33 Saúl Latif MD Apr 26, 2016 12:31
[2016-04-26 11:23] LABS: HEMATOCRIT 22.4 % (39.0-51.0); REVIEW FLAG FINAL
[2016-04-26] MEDS ORDERED: FUROSEMIDE 20 MG/2 ML VIAL IV ONE (12:45)
--- NOTE | 2016-04-26 13:45 | HHI.FPPN ---
Subjective Remarks Overnight DEBI. Tachycardia to 100. Normotensive. Breathing well on 2L NC. Adequate UOP. Positive fluid balance x2 days. C/o pain in L groin/leg/foot, adequate controlled by X [employer]. Unit had dispensed 20mg morphine at time of visit. Unable to find documentation of hx morphine use in EMR for comparison. Otherwise, no complaints. Denies f/c, n/v, SOB/CP, abd pain. Smoking cessation again encouraged. Objective Vitals Vital Signs Date Time Temp Pulse Resp B/P Pulse Ox O2 Delivery O2 Flow Rate FiO2 04/26/16 12:17 98.0 71 18 108/53 100 04/26/16 12:10 72 04/26/16 12:10 98.0 71 18 108/53 100 04/26/16 11:51 66 04/26/16 10:00 74 04/26/16 10:00 97.9 74 17 115/74 94 04/26/16 09:00 76 04/26/16 08:39 18 04/26/16 08:00 84 04/26/16 08:00 74 04/26/16 08:00 98.7 84 16 110/56 96 04/26/16 07:38 99 Nasal Cannula 3.00 04/26/16 06:00 88 20 120/88 93 04/26/16 06:00 88 04/26/16 06:00 22 04/26/16 04:00 101 04/26/16 03:00 86 04/26/16 03:00 97.9 101 18 102/66 94 04/26/16 03:00 96 Nasal Cannula 2.00 04/26/16 01:00 88 04/26/16 00:30 18 04/26/16 00:23 18 04/26/16 00:00 90 18 93/47 95 04/25/16 23:00 95 Nasal Cannula 2.00 04/25/16 23:00 90 04/25/16 22:00 22 04/25/16 21:10 18 04/25/16 20:39 Nasal Cannula 3.00 04/25/16 20:00 98.6 119 22 107/67 94 04/25/16 20:00 110 04/25/16 19:00 95 Nasal Cannula 2.00 04/25/16 19:00 119 04/25/16 18:00 84 04/25/16 18:00 98.9 86 25 118/62 98 04/25/16 17:00 84 04/25/16 16:00 98.5 86 25 101/60 98 04/25/16 16:00 96 Nasal Cannula 2.00 04/25/16 16:00 82 04/25/16 15:00 82 04/25/16 14:00 88 04/25/16 14:00 104/62 I/O 04/25/16 04/25/16 04/25/16 04/26/16 04/26/16 04/26/16 07:00 15:00 23:00 07:00 15:00 23:00 Intake Total 1477 ml 1449 ml 1115 ml Output Total 600 ml 575 ml 400 ml Balance 877 ml 874 ml 715 ml Intake Oral 820 ml 975 ml 440 ml IV Total 657 ml 474 ml 675 ml Output Urine Total 600 ml 575 ml 400 ml # Bowel Movements 0 0 Result Diagram: 04/26/16 1035 04/26/16 0535 Imaging Last Impressions Neck CTA 04/19/16 0000 Signed Impressions: Service Date/Time: April 22:04 - CONCLUSION: Carotid stenosis bilaterally both felt to be hemodynamically significant, right appears worse than the left however the left carotid appears partially collapsed. Semaj Holden MD FACR Lower Extremity Ultrasound 04/18/16 0000 Signed Impressions: Service Date/Time: Monday, April 18, 2016 11:11 - CONCLUSION: No evidence of deep venous thrombosis. Saúl Hackett MD Chest X-Ray 04/17/16 1804 Signed Impressions: Service Date/Time: Sunday, April 17, 2016 18:20 - CONCLUSION: No acute disease. Joao Stoddard MD Aorta w/Runoff CTA 04/17/16 0000 Signed Impressions: Service Date/Time: Sunday, April 17, 2016 17:47 - CONCLUSION: In the left leg of concern, inflow is satisfactory. Superficial femoral artery is totally occluded. The popliteal reconstitutes however it is severely diseased throughout. Tibial vessels are patent, anterior tibial dominant. David Lazcano MD Objective Remarks CONST: male sitting upright. DERM: Warm and dry. HEENT: PERRL. MMM. CV: RRR. No murmurs. RESP: End expiratory wheezing bilateral. Moderate air movement. Intermittent wet cough. GI: Abdomen NDNT. MSK: LLE wrapped in JOSEFINA bandage. No erythema. Amputated 1st and 2nd digits L foot. NEUROL: Grossly motor and sensory intact. PSYCH: Appropriate affect. Moderate insight. Procedures 04/24/16- LLE bypass, groin reconstruction, amputation 1st/2nd digits L foot. ( Dr Latif, [facility]) A/P Assessment and Plan 65y male w PAD, DM2, and tobacco abuse, hospitalized 04/17/15 for gangrenous L great toe. S/p L groin reconstruction and amputation 1st and 2nd toes L foot 04/24/16. Discharge Planning 4-6 days, pending recovery and recommendations from [facility]. Likely d/c [facility] vs other (will need PT to re-eval post sx) PT/OT: at rehab Case management: called 04/26/16- put on radar would be d/c-d to SNF in next few days, pt requesting Todd SDW: Dr Salcedo DW: Dr Kendall Problem List: (1) Normocytic anemia due to blood loss Status: Acute Plan: -Transfused 2 units pRBC 04/[address] [facility], post H/H unchanged -Recheck H/H at 4pm, give additional RBC if <7.5 and consider re-check hemoccult (2) Gangrenous toe Status: Chronic Plan: Admitted with dry gangrene of 1st and 2nd L toes secondary to severe PAD and ongoing tobacco abuse. S/p L fem-AT bypass with cryo; amputation of toes 1-2 04/24/16 Vascular surgery (Dr. Trevino), Cardiology (Dr Gary) consulted Plan: -Pain management: X [employer] pump, [place] q4h PRN pain 6-10, morphine PRN breakthrough -Will wean from pain pump as tolerated -Continue Gabapentin 800mg TID -Continue Heparin ggt -Continue daily PT, PT recs: prev H2HH, need to re-eval post sx * Wound Care Imaging Carotid artery U/S (04/19): hemodynamically significant carotid stenosis bilaterally, right appears worse than left, however the left carotid appears partially collapsed. CTA runoff :with severe occlusions (Inflow satisfactory, but supf femoral artery totally concluded, severely diseased popliteal, tibial vessels patent). Angiogram LLE (04/19): patent ABF limb and profunda, occluded L SFA & popliteal artery, occluded L peroneal and PT, patent but diseased AT, need groin reconstruction and fem-AT US venous mapping :saphenous veins appropriate for surgery (3) Tobacco abuse Status: Chronic Plan: Nicotine patch contraindicated due to PAD --Smoking cessation counseling provided (4) CAD (coronary artery disease) Status: Acute Plan: Cardiac cath July 2014 showing EF of 25%. Severe three-vessel coronary disease. Patent 3/3 bypass grafts. Aspirin contraindicated due to hx melena (2015) -Continue metoprolol 50mg BID -Continue home Atorvastatin (5) COPD (chronic obstructive pulmonary disease) Status: Chronic Plan: Stable. RA on admission, requiring O2 supplementation after surgery. Wean from O2 as tolerated, O2 supplementation PRN for to maintain saturations 88 %+ Continue home Advair Continue Albuterol neb PRN Incentive spirometry (6) CHF (congestive heart failure) Status: Chronic Plan: EF 2014 25%. Continue home Lasix 20mg PO daily Continue home spironolactone 25mg PO daily Daily BMPs (7) Bilateral carotid artery stenosis Status: Chronic Plan: Cardiology consulted, gave clearance for leg bypass surgery. Carotid artery u/s significant for b/l stenosis, R > L. -Will touch base with cardiology re: plan for outpt vs inpt treatment (8) Atrial fibrillation Status: Chronic Plan: Hold home Coumadin. INR subtherapeutic at 1.8 on admission. -Continue BB (under CAD) Per Vascular Surgery recommendations, hold Coumadin and continue Lovenox 90mg ( 1mg/kg) SQ Q12H (9) DM type 2 (diabetes mellitus, type 2) Status: Chronic Plan: Hold home metformin.. SSI d/c as blood glucose wnl consistently. -Continue heart healthy diet (10) Chronic hyponatremia Status: Chronic Plan: likely secondary to alcohol use above recommended limits, slowly improving. -Daily BMPs, do not correct overly quickly, monitor (11) Status post amputation of toe of left foot Status: Acute Plan: 04/24/16, see gangrenous toe (12) Alcohol intake above recommended sensible limits Status: Chronic Plan: Daily beer drinker. Denies history of seizures or withdrawals, offended to be asked this. -Decreased alcohol consumption recommended, daily multivitamin, vitamin B1 (13) PAD (peripheral artery disease) Status: Chronic Plan: Severe. history of multiple extensive and complex surgeries -see plan for gangrenous toe (14) Nutrition, metabolism, and development symptoms Status: Chronic Plan: FEN/PPX Fluids: PO Electrolytes: Chronic Hyponatremia, stable. Continue to monitor and replete as needed. Nutrition: Heart Healthy, 1800 ADA cons carb DVT PPx: Therapeutic Lovenox GI ppx: Protonix (started 04/24- ) Problem Qualifiers (1) CAD (coronary artery disease): Qualified Code: I25.810 - Coronary artery disease involving coronary bypass graft of [place] heart without angina pectoris (2) COPD (chronic obstructive pulmonary disease): Qualified Code: J43.1 - Panlobular emphysema (3) CHF (congestive heart failure): Qualified Code: I50.9 - Congestive heart failure, unspecified congestive heart failure chronicity, unspecified congestive heart failure type (4) Atrial fibrillation: Qualified Code: I48.0 - Paroxysmal atrial fibrillation (5) DM type 2 (diabetes mellitus, type 2): Qualified Code: E11.9 - Type 2 diabetes mellitus without complication, without long-term current use of insulin Ninoska Egan MD R1 Apr 26, 2016 13:45
[2016-04-26] MEDS: NS + KCL 20 MEQ INJ 1,000 ML IV SCH (15:32)
[2016-04-26 16:41] LABS: REVIEW FLAG FINAL
[2016-04-26] MEDS: diphenhydrAMINE HCL 25 MG CAP PO PRN (17:12)
[2016-04-26] MEDS: PANTOPRAZOLE SOD 40 MG DELAYED RELEASE TAB PO SCH (20:53)
[2016-04-26] MEDS: ATORVASTATIN 40 MG TAB PO SCH (20:54)
[2016-04-27] VITALS (23 sets, daily range): BP systolic 116–159; BP diastolic 60–76; PULSE 73–91; RESP 18–22; TEMP 97.9–98.6; O2SAT 94–99
[2016-04-27 04:10] LABS: HEMATOCRIT 28.2 % (39.0-51.0); MEAN CELL VOLUME 91.4 FL (80.0-100.0); MEAN CORPUSCULAR HEMOGLOBIN 31.6 PG (27.0-34.0); MEAN CORPUSCULAR HGB CONC 34.6 % (32.0-36.0); PLATELET COUNT 228 TH/MM3 (150-450); RED BLOOD COUNT 3.09 MIL/MM3 (4.50-5.90); RED CELL DISTRIBUTION WIDTH 20.8 % (11.6-17.2); WHITE BLOOD COUNT 10.1 TH/MM3 (4.0-11.0)
[2016-04-27 04:13] LABS: REVIEW FLAG FINAL
[2016-04-27] MEDS: LACTATED RINGER'S 1000 ML IV SCH (04:15)
[2016-04-27 04:21] LABS: APTT (PATIENT) 52.5 SEC (24.3-30.1)
[2016-04-27 04:40] LABS: BICARBONATE 26.9 MEQ/L (21.0-32.0); POTASSIUM 4.2 MEQ/L (3.5-5.1)
[2016-04-27] MEDS: NS + KCL 20 MEQ INJ 1,000 ML IV SCH ×2 (05:23→23:18)
[2016-04-27] MEDS: PCA - TOTAL MG MORPHINE DELIVERED PER SHIFT SCH ×3 (06:00→22:00)
--- NOTE | 2016-04-27 07:30 | MP ---
cc: SACHI LATIF MD DATE OF SURGERY 04/24/2016 PREOPERATIVE DIAGNOSIS Left lower extremity ischemic tissue loss. POSTOPERATIVE DIAGNOSIS Left lower extremity ischemic tissue loss. PROCEDURE 1. Left femoral to anterior tibial bypass with cryopreserved vein. 2. Amputation of left first and second toes. ATTENDING SURGEON Sachi Latif MD SENIOR APPLICATIONS ENGINEER SURGEON Ayden De Dios DO ANESTHESIA General INDICATION Mr. Salcedo is a 65-year-old gentleman with ischemic tissue loss with loss of first and second toes and severe PAD. He has had a history of an aortobifemoral bypass graft and was taken to the operating room for a distal bypass. There was no suitable autogenous conduit and so a cryopreservative tissue was used. DESCRIPTION OF PROCEDURE Informed consent was obtained from the patient. He was taken to the operating room, placed supine on the operating room table and appropriate time out was taken to ensure the patient's identity, the operative site and the planned procedure. A gram of Vancomycin was initiated prior to the skin incision and will be discontinued after a single preoperative dose. Vancomycin was chosen because of the patient's preoperative length stating greater than 48 hours. Everyone in the room agreed with the time out and we proceeded. He was prepped from his nipples to his toes. A vertical incision made in the patient's left groin, carried down through the subcutaneous tissue with electrocautery. The ABF limb was identified and dissected free sufficient to clamp proximally and distally. Then an incision was made on the lateral calf, carried down through the subcutaneous tissue with electrocautery. The anterior and lateral muscle bellies were bluntly and the anterior tibial artery was identified. It was noted to be extremely calcified and diseased. It was dissected free. A separate incision made in the distal left thigh and a tunnel was then created in the subcutaneous plane from the lower leg to the thigh and then subsartorially from the thigh to the groin. The patient was systemically heparinized. The cryopreservative vein was brought up on the field and prepared in the standard fashion. It was flushed. After the patient was systemically heparinized, proximal and distal control of the ABF limb were obtained with Profunda clamps and a long graftotomy was made with an 11 blade and extended with [place] scissors. The graft was spatulated and sewn end-to-side with running 5-0 Prolene sutures. At the completion, it was flushed and noted to be hemostatic. The graft was marked for orientation, passed under the sartorius and then subcutaneously down to the anterior tibial artery. The anterior tibial artery was incised with an 11 blade and Vani embolectomy balloons were used to obtain distal control due to the extreme calcific nature of the artery. The artery was cut to an appropriate length, spatulate and sewn end-to-side with running 6-0 Prolene sutures. At completion, it was flushed and noted to be hemostatic. There was a nice palpable graft pulse and a distal anterior tibial artery signal. The wounds were irrigated, made hemostatic and closed with 2-0 Polysorb, 3-0 Polysorb and 4-0 Monocryl on the groin and counter incision in the lower thigh and the calf was closed with 2-0 Polysorb, 3-0 Polysorb and zan. A skin Vac was placed on the groin. We then turned our attention towards toe amputation. An incision was made at the base of the first and second toes and the toes were amputated with a knife in the metatarsal glandular joint space. A Rongeur was then used to debride back the metatarsal head of the first and second toes. The wound was irrigated and packed with Kerlix. The patient was then awoken from anesthesia and transferred to the Recovery Room in stable condition. There were no complications and I was present and scrubbed for the entire procedure. MD SHELLY Paul/BROWN /1:40 PM /6:48 AM VENKAT
--- NOTE | 2016-04-27 08:35 | PD.VS.PN ---
Subjective POD #: 3 Procedure(s): L fem-AT bypass with cryo; amputation of toes 1-2 Subjective/Hospital Course Pt is a 65/M who is alert and oriented times 3 in NAD, GCS 15 Pt is resting in bed comfortably + void after Lopez out Deysi diet Stood on foot yesterday. Hct 28 after PRBC (from 21) Objective Vitals/I&O Date Time Temp Pulse Resp B/P Pulse Ox O2 Delivery O2 Flow Rate FiO2 04/27/16 07:26 99 Nasal Cannula 3.00 04/27/16 07:00 98.6 80 159/72 94 04/27/16 06:00 74 04/27/16 06:00 16 04/27/16 05:00 79 04/27/16 04:23 98.5 78 128/72 97 04/27/16 04:00 78 04/27/16 03:00 76 04/27/16 03:00 Nasal Cannula 2.00 21 04/27/16 02:00 79 04/27/16 01:00 74 04/27/16 00:56 98.4 76 116/71 98 04/27/16 00:00 74 04/26/16 23:00 77 04/26/16 23:00 Nasal Cannula 2.00 21 04/26/16 22:00 86 04/26/16 21:30 99.4 93 124/64 94 04/26/16 21:18 18 04/26/16 21:00 93 04/26/16 20:55 18 04/26/16 20:00 99 04/26/16 20:00 99.4 93 124/64 94 04/26/16 19:00 Nasal Cannula 2.00 04/26/16 19:00 93 04/26/16 18:30 92 04/26/16 17:13 90 04/26/16 17:07 98.4 90 20 108/57 92 04/26/16 16:43 98.9 84 18 112/62 93 04/26/16 16:41 93 Room Air 04/26/16 16:41 98.9 84 20 112/65 93 04/26/16 16:35 86 04/26/16 15:18 91 04/26/16 14:04 79 04/26/16 14:00 18 04/26/16 13:32 79 04/26/16 12:17 98.0 71 18 108/53 100 04/26/16 12:10 72 04/26/16 12:10 98.0 71 18 108/53 100 04/26/16 11:51 66 04/26/16 10:00 74 04/26/16 10:00 97.9 74 17 115/74 94 04/26/16 09:00 76 04/26/16 08:39 18 04/27/16 04/27/16 04/27/16 07:00 15:00 23:00 Intake Total 300 ml Output Total 1200 ml Balance -900 ml Exam: L groin incision vac removed - c/d/i L toe amputation site ok forefoot with progressive ischemia L lateral knee graft pulse palpable Pulses: palpable graft pulse lateral knee Laboratory Laboratory Tests Test 04/26/16 04/26/16 04/27/16 10:35 16:11 03:47 Hemoglobin 7.5 8.0 9.8 Hematocrit 22.4 24.0 28.2 Blood Type B POSITIVE Antibody Screen NEGATIVE Crossmatch Leukocyte-Reduced Red Blood Cells Blood Bank Comment White Blood Count 10.1 Red Blood Count 3.09 Mean Corpuscular Volume 91.4 Mean Corpuscular Hemoglobin 31.6 Mean Corpuscular Hemoglobin 34.6 Concent Red Cell Distribution Width 20.8 Platelet Count 228 Mean Platelet Volume 8.1 Activated Partial 52.5 Thromboplast Time Sodium Level 128 Potassium Level 4.2 Chloride Level 93 Carbon Dioxide Level 26.9 Anion Gap 8 Blood Urea Nitrogen 11 Creatinine 0.58 Estimat Glomerular Filtration 141 Rate Random Glucose 110 Calcium Level 8.3 Assessment and Plan Assessment: (1) Cellulitis of both lower extremities Status: Chronic (2) PAD (peripheral artery disease) Status: Chronic Plan Despite having a palpable and therefore patent graft he has progressive ischemia of his foot. I think ultimately he will need a BKA and we discussed that this morning. Continue hep gtt for graft protection and wound care. Needs aggressive PT/IS/OOB. Discharge Planning d/c planning on hold until disposition of leg is made. Saúl Latif MD Apr 27, 2016 08:35
[2016-04-27] MEDS: FUROSEMIDE 20 MG TAB PO SCH (09:09)
[2016-04-27] MEDS: SPIRONOLACTONE 25 MG TAB PO SCH (09:09)
[2016-04-27] MEDS: GABAPENTIN 400 MG CAP PO SCH ×3 (09:09→17:16)
[2016-04-27] MEDS: METOPROLOL TARTRATE 50 MG TAB PO SCH ×2 (09:09→21:20)
[2016-04-27] MEDS: BUDESONIDE-FORMOTEROL 160/4.5 MCG INHALER INH SCH ×2 (09:10→21:21)
[2016-04-27] MEDS: LACTIC ACID (AMMONIUM LACTATE) 12% LOTION 225 GM BTL TOPICAL SCH ×2 (09:10→21:21)
[2016-04-27] MEDS: ASPIRIN EC 325 MG TABEC PO SCH (09:22)
[2016-04-27] MEDS: HEPARIN-D5W INJ 250 ML IV SCH (09:26)
--- NOTE | 2016-04-27 10:35 | HHI.FPPN ---
Subjective Remarks Neck issues overnight. Vitals are stable, patient remains afebrile. He is concerned that he is going to lose his entire foot, as it does not appear to be healing well and has become progressively more black. He denies any chest pain , shortness of breath, fever, chills, nausea or vomiting. He is tolerating by mouth. Objective Vitals Vital Signs Date Time Temp Pulse Resp B/P Pulse Ox O2 Delivery O2 Flow Rate FiO2 04/27/16 07:26 99 Nasal Cannula 3.00 04/27/16 07:00 98.6 80 159/72 94 04/27/16 06:00 74 04/27/16 06:00 16 04/27/16 05:00 79 04/27/16 04:23 98.5 78 128/72 97 04/27/16 04:00 78 04/27/16 03:00 76 04/27/16 03:00 Nasal Cannula 2.00 21 04/27/16 02:00 79 04/27/16 01:00 74 04/27/16 00:56 98.4 76 116/71 98 04/27/16 00:00 74 04/26/16 23:00 77 04/26/16 23:00 Nasal Cannula 2.00 21 04/26/16 22:00 86 04/26/16 21:30 99.4 93 124/64 94 04/26/16 21:18 18 04/26/16 21:00 93 04/26/16 20:55 18 04/26/16 20:00 99 04/26/16 20:00 99.4 93 124/64 94 04/26/16 19:00 Nasal Cannula 2.00 04/26/16 19:00 93 04/26/16 18:30 92 04/26/16 17:13 90 04/26/16 17:07 98.4 90 20 108/57 92 04/26/16 16:43 98.9 84 18 112/62 93 04/26/16 16:41 93 Room Air 04/26/16 16:41 98.9 84 20 112/65 93 04/26/16 16:35 86 04/26/16 15:18 91 04/26/16 14:04 79 04/26/16 14:00 18 04/26/16 13:32 79 04/26/16 12:17 98.0 71 18 108/53 100 04/26/16 12:10 72 04/26/16 12:10 98.0 71 18 108/53 100 04/26/16 11:51 66 I/O 04/26/16 04/26/16 04/26/16 04/27/16 04/27/16 04/27/16 07:00 15:00 23:00 07:00 15:00 23:00 Intake Total 1115 ml 1240 ml 300 ml Output Total 400 ml 350 ml 1200 ml Balance 715 ml 890 ml -900 ml Intake Oral 440 ml 840 ml 300 ml IV Total 675 ml 400 ml Output Urine Total 400 ml 350 ml 1200 ml # Bowel Movements 0 Result Diagram: 04/27/16 0347 04/27/16 0347 Imaging Last Impressions Neck CTA 04/19/16 0000 Signed Impressions: Service Date/Time: April 22:04 - CONCLUSION: Carotid stenosis bilaterally both felt to be hemodynamically significant, right appears worse than the left however the left carotid appears partially collapsed. Semaj Holden MD FACR Lower Extremity Ultrasound 04/18/16 0000 Signed Impressions: Service Date/Time: Monday, April 18, 2016 11:11 - CONCLUSION: No evidence of deep venous thrombosis. Saúl Hackett MD Chest X-Ray 04/17/16 1804 Signed Impressions: Service Date/Time: Sunday, April 17, 2016 18:20 - CONCLUSION: No acute disease. Joao Stoddard MD Aorta w/Runoff CTA 04/17/16 0000 Signed Impressions: Service Date/Time: Sunday, April 17, 2016 17:47 - CONCLUSION: In the left leg of concern, inflow is satisfactory. Superficial femoral artery is totally occluded. The popliteal reconstitutes however it is severely diseased throughout. Tibial vessels are patent, anterior tibial dominant. David Lazcano MD Objective Remarks CONST: male, sitting up in bed, in NAD. DERM: Warm and dry. HEENT: PERRL. MMM. CV: RRR. No murmurs. RESP: End expiratory wheezing bilateral. Moderate air movement. Breath sounds equal bilaterally. GI: Abdomen non-tender, non-distended. MSK: Amputated 1st and 2nd digits L foot. Left foot with blackening on the dorsal aspect almost to ankle. Foul odor. LLE tender to palpation below knee. NEUROL: Grossly motor and sensory intact. PSYCH: Appropriate affect. Moderate insight. Procedures 04/24/16- LLE bypass, groin reconstruction, amputation 1st/2nd digits L foot. ( Dr Latif, [facility]) A/P Assessment and Plan 65y male with PMH of PAD, DM2, and tobacco abuse, hospitalized for gangrenous L great toe. S/p L groin reconstruction and amputation 1st and 2nd toes L foot on 04/24/16. Discharge Planning Timetable unclear at this time. Patient may require a BKA. Discharge pending disposition of leg by Vascular Surgery. PT/OT: at rehab Anticipate discharge to rehab when clinically ready. Case management assisting. dw Dr. Kendall and Dr. Egan Problem List: (1) Gangrenous toe Status: Chronic Plan: Admitted with dry gangrene of 1st and 2nd L toes secondary to severe PAD and ongoing tobacco abuse. S/p L fem-AT bypass with cryo; amputation of toes 1-2 04/24/16 Plan: - Vascular Surgery consulted- Dr. Latif notes progressive ischemia of foot, patient will ultimately need BKA -Pain management: LEATHER DRESSER pump, [place] q4h PRN pain 6-10, morphine PRN breakthrough -Continue Gabapentin 800mg TID -Continue Heparin ggt -Continue daily PT Imaging Carotid artery U/S (04/19): hemodynamically significant carotid stenosis bilaterally, right appears worse than left, however the left carotid appears partially collapsed. CTA runoff :with severe occlusions (Inflow satisfactory, but supf femoral artery totally concluded, severely diseased popliteal, tibial vessels patent). Angiogram LLE (04/19): patent ABF limb and profunda, occluded L SFA & popliteal artery, occluded L peroneal and PT, patent but diseased AT, need groin reconstruction and fem-AT (2) Normocytic anemia due to blood loss Status: Resolved Plan: -Transfused 2 units PRBC 04/26 per [facility] - Hgb stable this morning at 9.8 - Transfuse if Hgb <7.5 (3) CAD (coronary artery disease) Status: Acute Plan: Cardiac cath July 2014 showing EF of 25%. Severe three-vessel coronary disease. Patent 3/3 bypass grafts. Aspirin contraindicated due to hx melena (2015) -Continue metoprolol 50mg BID -Continue home Atorvastatin (4) COPD (chronic obstructive pulmonary disease) Status: Chronic Plan: Stable. RA on admission, requiring O2 supplementation after surgery. Wean from O2 as tolerated, O2 supplementation PRN for to maintain saturations 88 %-92% Continue home Advair Continue Albuterol neb PRN Incentive spirometry (5) CHF (congestive heart failure) Status: Chronic Plan: EF 2015 25%. Continue home Lasix 20mg PO daily Continue home spironolactone 25mg PO daily (6) Bilateral carotid artery stenosis Status: Chronic Plan: 04/19 CTA Neck significant for carotid stenosis bilaterally, both felt to be hemodynamically significant. Right appears worse than left, left appears partially collapsed. Asymptomatic at this time. Defer to Vascular Surgery. (7) Atrial fibrillation Status: Chronic Plan: Hold home Coumadin. Currently on heparin ggt (8) DM type 2 (diabetes mellitus, type 2) Status: Chronic Plan: Hold home metformin. SSI d/c as blood glucose wnl consistently. -Continue heart healthy diet (9) PAD (peripheral artery disease) Status: Chronic Plan: Severe. History of multiple extensive and complex surgeries -see plan for gangrenous toe (10) Nutrition, metabolism, and development symptoms Status: Chronic Plan: Fluids: None Electrolytes: Chronic Hyponatremia, stable. Continue to monitor and replete as needed. Nutrition: Heart Healthy, 1800 ADA cons carb DVT PPx: Heparin ggt GI ppx: Protonix 40mg PO HS Problem Qualifiers (1) CAD (coronary artery disease): Qualified Code: I25.810 - Coronary artery disease involving coronary bypass graft of [place] heart without angina pectoris (2) COPD (chronic obstructive pulmonary disease): Qualified Code: J43.1 - Panlobular emphysema (3) CHF (congestive heart failure): Qualified Code: I50.9 - Congestive heart failure, unspecified congestive heart failure chronicity, unspecified congestive heart failure type (4) Atrial fibrillation: Qualified Code: I48.0 - Paroxysmal atrial fibrillation (5) DM type 2 (diabetes mellitus, type 2): Qualified Code: E11.9 - Type 2 diabetes mellitus without complication, without long-term current use of insulin Freda Rodriguez MD R2 Apr 27, 2016 10:35
[2016-04-27] MEDS: diphenhydrAMINE HCL 25 MG CAP PO PRN (12:08)
[2016-04-27] MEDS: ACETAMINOPHEN/HYDROcodone 325 MG/10 MG TAB PO PRN ×2 (17:16→21:20)
[2016-04-27] MEDS: DOCUSATE CALCIUM 240 MG CAP PO SCH (21:00)
[2016-04-27] MEDS: PANTOPRAZOLE SOD 40 MG DELAYED RELEASE TAB PO SCH (21:20)
[2016-04-27] MEDS: ATORVASTATIN 40 MG TAB PO SCH (21:20)
[2016-04-28] VITALS (19 sets, daily range): BP systolic 118–157; BP diastolic 64–82; PULSE 70–93; RESP 18–23; TEMP 98.2–99.4; O2SAT 93–97
[2016-04-28] MEDS: MORPHINE SULFATE 30 MG/30 ML PCA IV SCH ×2 (03:15→13:01)
[2016-04-28] MEDS: HEPARIN-D5W INJ 250 ML IV SCH ×2 (03:18→17:14)
[2016-04-28] MEDS: LACTATED RINGER'S 1000 ML IV SCH (04:15)
[2016-04-28 05:58] LABS: HEMATOCRIT 26.2 % (39.0-51.0); MEAN CELL VOLUME 91.5 FL (80.0-100.0); MEAN CORPUSCULAR HEMOGLOBIN 32.4 PG (27.0-34.0); MEAN CORPUSCULAR HGB CONC 35.4 % (32.0-36.0); PLATELET COUNT 258 TH/MM3 (150-450); RED BLOOD COUNT 2.86 MIL/MM3 (4.50-5.90); RED CELL DISTRIBUTION WIDTH 19.9 % (11.6-17.2); WHITE BLOOD COUNT 10.4 TH/MM3 (4.0-11.0)
[2016-04-28] MEDS: PCA - TOTAL MG MORPHINE DELIVERED PER SHIFT SCH ×3 (06:00→21:07)
[2016-04-28 06:07] LABS: REVIEW FLAG FINAL
[2016-04-28 06:27] LABS: BICARBONATE 27.5 MEQ/L (21.0-32.0); POTASSIUM 4.2 MEQ/L (3.5-5.1)
[2016-04-28] MEDS: ACETAMINOPHEN/HYDROcodone 325 MG/10 MG TAB PO PRN ×2 (06:59→21:07)
--- NOTE | 2016-04-28 08:29 | HHI.FPPN ---
Subjective Remarks No acute issues overnight. Vitals are stable, the patient remains afebrile. He understands that the ischemia is progressing on his left foot, but is hoping that he will not need a BKA. He is currently trying to process the possibility that he will need a BKA. He denies any chest pain, fever, chills, nausea or vomiting. He is having occasional shortness of breath that is improved with supplemental O2. He is tolerating by mouth. Objective Vitals Vital Signs Date Time Temp Pulse Resp B/P Pulse Ox O2 Delivery O2 Flow Rate FiO2 04/28/16 06:00 18 04/28/16 03:30 18 04/28/16 03:15 20 04/28/16 03:00 98.2 77 23 155/68 97 04/28/16 03:00 97 Nasal Cannula 2.00 04/27/16 23:00 97.9 73 22 151/70 99 04/27/16 23:00 Nasal Cannula 2.00 04/27/16 22:20 18 04/27/16 22:00 18 04/27/16 20:00 98.6 91 18 149/65 96 04/27/16 19:00 Nasal Cannula 2.00 04/27/16 18:16 79 04/27/16 17:00 79 04/27/16 16:13 82 04/27/16 16:13 98.3 82 125/60 96 04/27/16 15:10 80 04/27/16 15:10 Nasal Cannula 2.00 04/27/16 14:00 82 04/27/16 14:00 20 04/27/16 13:00 80 04/27/16 12:00 98.3 82 148/76 96 04/27/16 12:00 80 04/27/16 11:00 98.3 82 148/76 96 04/27/16 11:00 80 04/27/16 11:00 Nasal Cannula 2.00 04/27/16 10:00 83 04/27/16 09:00 82 I/O 04/27/16 04/27/16 04/27/16 04/28/16 04/28/16 04/28/16 07:00 15:00 23:00 07:00 15:00 23:00 Intake Total 300 ml 1000 ml 1174 ml Output Total 1200 ml 800 ml 1200 ml Balance -900 ml 200 ml -26 ml Intake Oral 300 ml 850 ml 630 ml IV Total 150 ml 544 ml Output Urine Total 1200 ml 800 ml 1200 ml # Bowel Movements 1 0 Result Diagram: 04/28/16 0523 04/28/16 0523 Imaging Last Impressions Neck CTA 04/19/16 0000 Signed Impressions: Service Date/Time: April 22:04 - CONCLUSION: Carotid stenosis bilaterally both felt to be hemodynamically significant, right appears worse than the left however the left carotid appears partially collapsed. Semaj Holden MD FACR Lower Extremity Ultrasound 04/18/16 0000 Signed Impressions: Service Date/Time: Monday, April 18, 2016 11:11 - CONCLUSION: No evidence of deep venous thrombosis. Saúl Hackett MD Chest X-Ray 04/17/16 180 Signed Impressions: Service Date/Time: Sunday, April 17, 2016 18:20 - CONCLUSION: No acute disease. Joao Stoddard MD Aorta w/Runoff CTA 04/17/16 0000 Signed Impressions: Service Date/Time: Sunday, April 17, 2016 17:47 - CONCLUSION: In the left leg of concern, inflow is satisfactory. Superficial femoral artery is totally occluded. The popliteal reconstitutes however it is severely diseased throughout. Tibial vessels are patent, anterior tibial dominant. David Lazcano MD Objective Remarks CONST: male, sitting up in bed, in NAD, eating breakfast. DERM: Warm and dry. HEENT: PERRL. MMM. CV: RRR. No murmurs. RESP: End expiratory wheezing bilateral. Moderate air movement. Breath sounds equal bilaterally. GI: Abdomen non-tender, non-distended. MSK: Amputated 1st and 2nd digits L foot. Left foot with ischemia on the dorsal aspect almost to ankle. Foul odor. LLE tender to palpation below knee. Wrapped in layo bandage today. NEUROL: Grossly motor and sensory intact. PSYCH: Appropriate affect. Moderate insight. Procedures 04/24/16- LLE bypass, groin reconstruction, amputation 1st/2nd digits L foot. ( Dr Latif, [facility]) A/P Assessment and Plan 65yo male with PMH of PAD, DM2, and tobacco abuse, hospitalized for gangrenous L great toe. S/p L groin reconstruction and amputation 1st and 2nd toes L foot on 04/24/16. Discharge Planning Timetable unclear at this time. Patient may require a BKA. Discharge pending disposition of leg by Vascular Surgery. PT/OT: at rehab Anticipate discharge to rehab when clinically ready. Case management assisting. joyce Kendall Problem List: (1) Ischemic foot Status: Acute Plan: Admitted with dry gangrene of 1st and 2nd L toes secondary to severe PAD and ongoing tobacco abuse. S/p L fem-AT bypass with cryo; amputation of toes 1-2 04/24/16 Plan: - Vascular Surgery consulted- Dr. Latif notes progressive ischemia of foot, patient will ultimately need BKA -Pain management: PATTERN MOLDER pump, [place] q4h PRN pain 6-10, morphine PRN breakthrough -Continue Gabapentin 800mg TID -Continue Heparin ggt -Continue daily PT Imaging Carotid artery U/S (04/19): hemodynamically significant carotid stenosis bilaterally, right appears worse than left, however the left carotid appears partially collapsed. CTA runoff: with severe occlusions (Inflow satisfactory, but supf femoral artery totally concluded, severely diseased popliteal, tibial vessels patent). Angiogram LLE (04/19): patent ABF limb and profunda, occluded L SFA & popliteal artery, occluded L peroneal and PT, patent but diseased AT, need groin reconstruction and fem-AT (2) Normocytic anemia due to blood loss Status: Resolved Plan: -Transfused 2 units PRBC 04/26 per [facility] - Hgb trending down from 9.8 to 9.3 - Transfuse if Hgb <7.5 (3) CAD (coronary artery disease) Status: Acute Plan: Cardiac cath July 2014 showing EF of 25%. Severe three-vessel coronary disease. Patent 3/3 bypass grafts. Aspirin contraindicated due to hx melena (2015) -Continue metoprolol 50mg BID -Continue home Atorvastatin (4) COPD (chronic obstructive pulmonary disease) Status: Chronic Plan: Stable. RA on admission, requiring O2 supplementation after surgery. O2 supplementation PRN for to maintain saturations 88%-92% Continue home Advair Duoneb Q4H PRN Incentive spirometry (5) CHF (congestive heart failure) Status: Chronic Plan: EF 2014 25%. Continue home Lasix 20mg PO daily Continue home spironolactone 25mg PO daily (6) Bilateral carotid artery stenosis Status: Chronic Plan: 04/19 CTA Neck significant for carotid stenosis bilaterally, both felt to be hemodynamically significant. Right appears worse than left, left appears partially collapsed. Asymptomatic at this time. Defer to Vascular Surgery. (7) Atrial fibrillation Status: Chronic Plan: Hold home Coumadin. Currently on heparin ggt (8) DM type 2 (diabetes mellitus, type 2) Status: Chronic Plan: Hold home metformin. SSI d/c as blood glucose wnl consistently. -Continue heart healthy diet (9) PAD (peripheral artery disease) Status: Chronic Plan: Severe. History of multiple extensive and complex surgeries (10) Nutrition, metabolism, and development symptoms Status: Chronic Plan: Fluids: None Electrolytes: Chronic Hyponatremia, stable. Continue to monitor and replete as needed. Nutrition: Heart Healthy, 1800 ADA cons carb DVT PPx: Heparin ggt GI ppx: Protonix 40mg PO HS Problem Qualifiers (1) CAD (coronary artery disease): Qualified Code: I25.810 - Coronary artery disease involving coronary bypass graft of [place] heart without angina pectoris (2) COPD (chronic obstructive pulmonary disease): Qualified Code: J43.1 - Panlobular emphysema (3) CHF (congestive heart failure): Qualified Code: I50.9 - Congestive heart failure, unspecified congestive heart failure chronicity, unspecified congestive heart failure type (4) Atrial fibrillation: Qualified Code: I48.0 - Paroxysmal atrial fibrillation (5) DM type 2 (diabetes mellitus, type 2): Qualified Code: E11.9 - Type 2 diabetes mellitus without complication, without long-term current use of insulin Freda Rodriguez MD R2 Apr 28, 2016 08:28
--- NOTE | 2016-04-28 08:59 | PD.VS.PN ---
Subjective POD #: 4 Procedure(s): L fem-AT bypass with cryo; amputation of toes 1-2 Subjective/Hospital Course Pt is a 65/M who is alert and oriented times 3 in NAD Was able to put weight on foot yesterday. No f/c Deysi diet Objective Vitals/I&O Date Time Temp Pulse Resp B/P Pulse Ox O2 Delivery O2 Flow Rate FiO2 04/28/16 08:38 97 2.00 04/28/16 06:00 18 04/28/16 03:30 18 04/28/16 03:15 20 04/28/16 03:00 98.2 77 23 155/68 97 04/28/16 03:00 97 Nasal Cannula 2.00 04/27/16 23:00 97.9 73 22 151/70 99 04/27/16 23:00 Nasal Cannula 2.00 04/27/16 22:20 18 04/27/16 22:00 18 04/27/16 20:00 98.6 91 18 149/65 96 04/27/16 19:00 Nasal Cannula 2.00 04/27/16 18:16 79 04/27/16 17:00 79 04/27/16 16:13 82 04/27/16 16:13 98.3 82 125/60 96 04/27/16 15:10 80 04/27/16 15:10 Nasal Cannula 2.00 04/27/16 14:00 82 04/27/16 14:00 20 04/27/16 13:00 80 04/27/16 12:00 98.3 82 148/76 96 04/27/16 12:00 80 04/27/16 11:00 98.3 82 148/76 96 04/27/16 11:00 80 04/27/16 11:00 Nasal Cannula 2.00 04/27/16 10:00 83 04/27/16 09:00 82 04/28/16 04/28/16 04/28/16 07:00 15:00 23:00 Intake Total 1174 ml Output Total 1200 ml Balance -26 ml Exam: L groin c/d/i L lateral thigh intact, slight fullness palpable graft pulse lateral leg toe amputation site and forefoot with worsening ischemia Laboratory Laboratory Tests Test 04/28/16 05:23 White Blood Count 10.4 Red Blood Count 2.86 Hemoglobin 9.3 Hematocrit 26.2 Mean Corpuscular Volume 91.5 Mean Corpuscular Hemoglobin 32.4 Mean Corpuscular Hemoglobin 35.4 Concent Red Cell Distribution Width 19.9 Platelet Count 258 Mean Platelet Volume 8.4 Sodium Level 130 Potassium Level 4.2 Chloride Level 94 Carbon Dioxide Level 27.5 Anion Gap 9 Blood Urea Nitrogen 7 Creatinine 0.50 Estimat Glomerular Filtration 167 Rate Random Glucose 118 Calcium Level 8.4 Assessment and Plan Assessment: (1) Cellulitis of both lower extremities Status: Chronic (2) PAD (peripheral artery disease) Status: Chronic Plan Despite having a palpable and therefore patent graft he has progressive ischemia of his foot. I He needs a BKA and we again talked about that this morning. The BKA may in fact not heal but I think it is certainly worth an attempt as he has in-line profunda flow from ABF I will tentatively schedule for OR Saturday Pt aware of impending limb loss Continue PT and IS Discharge Planning rehab 4-5d after BKA if wound ok. Saúl Latif MD Apr 28, 2016 08:59
[2016-04-28] MEDS: METOPROLOL TARTRATE 50 MG TAB PO SCH ×2 (09:21→21:06)
[2016-04-28] MEDS: SPIRONOLACTONE 25 MG TAB PO SCH (09:21)
[2016-04-28] MEDS: GABAPENTIN 400 MG CAP PO SCH ×3 (09:21→17:11)
[2016-04-28] MEDS: LACTIC ACID (AMMONIUM LACTATE) 12% LOTION 225 GM BTL TOPICAL SCH ×2 (09:21→21:08)
[2016-04-28] MEDS: FUROSEMIDE 20 MG TAB PO SCH (09:21)
[2016-04-28] MEDS: ASPIRIN EC 325 MG TABEC PO SCH (09:21)
[2016-04-28] MEDS: BUDESONIDE-FORMOTEROL 160/4.5 MCG INHALER INH SCH ×2 (09:23→21:07)
[2016-04-28] MEDS: RESP: ALBUTEROL 2.5 MG/IPRATROPIUM 0.5 MG NEB (SCH) INH ×3 (10:36→20:18)
[2016-04-28] MEDS: NS + KCL 20 MEQ INJ 1,000 ML IV SCH (15:11)
[2016-04-28] MEDS: DOCUSATE CALCIUM 240 MG CAP PO SCH (21:06)
[2016-04-28] MEDS: PANTOPRAZOLE SOD 40 MG DELAYED RELEASE TAB PO SCH (21:06)
[2016-04-28] MEDS: ATORVASTATIN 40 MG TAB PO SCH (21:06)
[2016-04-29] VITALS (27 sets, daily range): BP systolic 129–148; BP diastolic 60–88; PULSE 67–98; RESP 16–18; TEMP 98–99.2; O2SAT 95–98
[2016-04-29] MEDS: RESP: ALBUTEROL 2.5 MG/IPRATROPIUM 0.5 MG NEB (SCH) INH ×6 (01:00→19:58)
[2016-04-29] MEDS: MORPHINE SULFATE 30 MG/30 ML PCA IV SCH ×3 (02:05→17:41)
[2016-04-29] MEDS: LACTATED RINGER'S 1000 ML IV SCH (03:44)
[2016-04-29] MEDS: PCA - TOTAL MG MORPHINE DELIVERED PER SHIFT SCH ×3 (05:30→22:00)
--- NOTE | 2016-04-29 08:15 | HHI.FPPN ---
Subjective Remarks Overnight, DEBI. AFVSS. Breathing well on NC 5L. Good UOP. Last BM 04/28. C/o SOB- he was just about to receive his breathing treatment. Continued pain in foot, moderately well-controlled by morphine SQUIRT MACHINE OPERATOR. Per pt, surgery planned tentatively Saturday or definitely Saturday for BKA, but is happening. Eating, voiding, stooling w/o difficulty. OOB w assistance. Objective Vitals Vital Signs Date Time Temp Pulse Resp B/P Pulse Ox O2 Delivery O2 Flow Rate FiO2 04/29/16 07:40 95 Nasal Cannula 2.00 04/29/16 05:30 18 04/29/16 05:00 76 04/29/16 04:00 98.0 68 16 141/66 95 04/29/16 04:00 67 04/29/16 04:00 Nasal Cannula 2.00 04/29/16 03:00 72 04/29/16 02:05 18 04/29/16 02:00 73 04/29/16 01:00 76 04/29/16 00:00 Nasal Cannula 2.00 04/29/16 00:00 75 04/29/16 00:00 98.1 78 16 145/70 97 04/28/16 23:00 76 04/28/16 22:00 85 04/28/16 21:07 18 04/28/16 21:00 86 04/28/16 20:18 93 Nasal Cannula 2.00 04/28/16 20:00 99.4 79 18 156/72 95 04/28/16 20:00 82 04/28/16 20:00 Nasal Cannula 2.00 04/28/16 20:00 18 04/28/16 19:00 93 04/28/16 18:35 79 04/28/16 17:27 70 04/28/16 16:00 72 04/28/16 15:00 98.6 75 20 138/64 97 04/28/16 15:00 74 04/28/16 15:00 Nasal Cannula 2.00 04/28/16 14:00 74 04/28/16 14:00 20 04/28/16 13:01 20 04/28/16 13:00 70 04/28/16 12:30 73 04/28/16 11:57 99.0 75 20 118/82 97 04/28/16 11:27 Nasal Cannula 2.00 04/28/16 11:00 75 04/28/16 08:38 97 2.00 04/28/16 08:00 75 I/O 04/28/16 04/28/16 04/28/16 04/29/16 04/29/16 04/29/16 07:00 15:00 23:00 07:00 15:00 23:00 Intake Total 1174 ml 900 ml 1231 ml Output Total 1200 ml 850 ml 1300 ml Balance -26 ml 50 ml -69 ml Intake Oral 630 ml 850 ml 920 ml IV Total 544 ml 50 ml 311 ml Output Urine Total 1200 ml 850 ml 1300 ml # Bowel Movements 0 0 Result Diagram: 04/28/16 0523 04/28/16 0523 Imaging Last Impressions Neck CTA 04/19/16 0000 Signed Impressions: Service Date/Time: April 22:04 - CONCLUSION: Carotid stenosis bilaterally both felt to be hemodynamically significant, right appears worse than the left however the left carotid appears partially collapsed. Semaj Holden MD FACR Lower Extremity Ultrasound 04/18/16 0000 Signed Impressions: Service Date/Time: Monday, April 18, 2016 11:11 - CONCLUSION: No evidence of deep venous thrombosis. Saúl Hackett MD Chest X-Ray 04/17/16 1804 Signed Impressions: Service Date/Time: Sunday, April 17, 2016 18:20 - CONCLUSION: No acute disease. Joao Stoddard MD Aorta w/Runoff CTA 04/17/16 0000 Signed Impressions: Service Date/Time: Sunday, April 17, 2016 17:47 - CONCLUSION: In the left leg of concern, inflow is satisfactory. Superficial femoral artery is totally occluded. The popliteal reconstitutes however it is severely diseased throughout. Tibial vessels are patent, anterior tibial dominant. David Lazcano MD Objective Remarks CONST: male, sitting up in bed, in NAD DERM: Warm and dry, except injured LLE HEENT: PERRL. MMM. CV: RRR. No murmurs. RESP: Poor air movement. Anterior lung exam with diminished breath sounds bilaterally. Intermittent wet cough. GI: Abd NTND MSK: Amputated 1st and 2nd digits L foot. Left foot with erythema and black decay at carpal bones. LLE tender to palpation below knee. Open to air at present. NEUROL: Grossly motor and sensory intact. PSYCH: Appropriate affect. Good insight. Procedures 04/24/16- LLE bypass, groin reconstruction, amputation 1st/2nd digits L foot. ( Dr Latif, [facility]) Urinary Catheter: No Vascular Central Line Catheter: No A/P Assessment and Plan 65y male with PAD, DM2, and tobacco abuse, hospitalized 04/17/15 for gangrene of L great toe. S/p L groin reconstruction and amputation L foot 1st and 2nd toes 04/24/16. Discharge Planning 5-7 days, pending BKA on 04/30 or 05/01 and recovery. Pending recommendations by Vascular Surgery, discharge per PT PT/OT: at rehab Anticipate discharge to rehab when clinically ready. Case management assisting. DW: Dr. Kendall, Dr. Angulo Problem List: (1) Ischemic foot Status: Acute Plan: Admitted with dry gangrene of 1st and 2nd L toes secondary to severe PAD and ongoing tobacco abuse. S/p L fem-AT bypass with cryo; amputation of toes 1-2 04/24/16 Plan: -Vascular Surgery consulted Dr. Latif notes progressive ischemia of foot Left BKA planned tentatively 04/30, more likely 05/01. -Pain management: SQUIRT MACHINE OPERATOR pump [place] q4h PRN pain 6-10 Morphine PRN breakthrough Continue Gabapentin 800mg TID -Continue Heparin ggt per Vacular surgeon -Continue daily PT Imaging Carotid artery U/S (04/19): hemodynamically significant carotid stenosis bilaterally, right appears worse than left, however the left carotid appears partially collapsed. CTA runoff: with severe occlusions (Inflow satisfactory, but supf femoral artery totally concluded, severely diseased popliteal, tibial vessels patent). Angiogram LLE (04/19): patent ABF limb and profunda, occluded L SFA & popliteal artery, occluded L peroneal and PT, patent but diseased AT, need groin reconstruction and fem-AT (2) Normocytic anemia due to blood loss Status: Resolved Plan: Transfused 2 units PRBC 04/26 per [facility]. Hgb stable ~9 -Transfuse for Hgb <7 (3) CAD (coronary artery disease) Status: Acute Plan: Cardiac cath July 2014 showing EF of 25%. Severe three-vessel coronary disease. Patent 3/3 bypass grafts. Aspirin contraindicated due to hx melena (2015). -Continue metoprolol 50mg BID -Continue home Atorvastatin (4) COPD (chronic obstructive pulmonary disease) Status: Chronic Plan: Stable. RA on admission, requiring O2 supplementation after surgery. -O2 supplementation PRN for to maintain saturations 88%-92% -Duoneb Q4H ALYSSA while awake -Albuterol 2puff q6h PRN SOB -Symbicort 2pugg BID ALYSSA -Incentive spirometry (5) CHF (congestive heart failure) Status: Chronic Plan: EF 2015 25%. Continue home Lasix 20mg PO daily Continue home spironolactone 25mg PO daily (6) Bilateral carotid artery stenosis Status: Chronic Plan: 04/19 CTA Neck significant for carotid stenosis bilaterally, both felt to be hemodynamically significant. Right appears worse than left, left appears partially collapsed. Asymptomatic at this time. Defer to Vascular Surgery. (7) Atrial fibrillation Status: Chronic Plan: Hold home Coumadin. Currently on heparin ggt (8) DM type 2 (diabetes mellitus, type 2) Status: Chronic Plan: Hold home metformin. Discontinued SSI as blood glucose wnl consistently. POC glucose 100-120 in AM. Recommend d/c metformin at discharge. -Continue heart healthy diet (9) PAD (peripheral artery disease) Status: Chronic Plan: Severe. History of multiple extensive and complex surgeries -see plan for gangrene (10) Nutrition, metabolism, and development symptoms Status: Chronic Plan: Fluids: Per PO Electrolytes: Chronic Hyponatremia, stable. Slowly improving. Continue to monitor and replete as needed. Nutrition: Heart Healthy diet DVT PPx: Heparin ggt GI ppx: Protonix 40mg PO HS Problem Qualifiers (1) CAD (coronary artery disease): Qualified Code: I25.810 - Coronary artery disease involving coronary bypass graft of [place] heart without angina pectoris (2) COPD (chronic obstructive pulmonary disease): Qualified Code: J43.1 - Panlobular emphysema (3) CHF (congestive heart failure): Qualified Code: I50.9 - Congestive heart failure, unspecified congestive heart failure chronicity, unspecified congestive heart failure type (4) Atrial fibrillation: Qualified Code: I48.0 - Paroxysmal atrial fibrillation (5) DM type 2 (diabetes mellitus, type 2): Qualified Code: E11.9 - Type 2 diabetes mellitus without complication, without long-term current use of insulin Ninoska Egan MD R1 Apr 29, 2016 08:15
--- NOTE | 2016-04-29 08:19 | PD.VS.PN ---
Subjective POD #: 5 Procedure(s): L fem-AT bypass with cryo; amputation of toes 1-2 Subjective/Hospital Course Doing well, L foot hurts more Deysi diet Objective Vitals/I&O Date Time Temp Pulse Resp B/P Pulse Ox O2 Delivery O2 Flow Rate FiO2 04/29/16 07:40 95 Nasal Cannula 2.00 04/29/16 05:30 18 04/29/16 05:00 76 04/29/16 04:00 98.0 68 16 141/66 95 04/29/16 04:00 67 04/29/16 04:00 Nasal Cannula 2.00 04/29/16 03:00 72 04/29/16 02:05 18 04/29/16 02:00 73 04/29/16 01:00 76 04/29/16 00:00 Nasal Cannula 2.00 04/29/16 00:00 75 04/29/16 00:00 98.1 78 16 145/70 97 04/28/16 23:00 76 04/28/16 22:00 85 04/28/16 21:07 18 04/28/16 21:00 86 04/28/16 20:18 93 Nasal Cannula 2.00 04/28/16 20:00 99.4 79 18 156/72 95 04/28/16 20:00 82 04/28/16 20:00 Nasal Cannula 2.00 04/28/16 20:00 18 04/28/16 19:00 93 04/28/16 18:35 79 04/28/16 17:27 70 04/28/16 16:00 72 04/28/16 15:00 98.6 75 20 138/64 97 04/28/16 15:00 74 04/28/16 15:00 Nasal Cannula 2.00 04/28/16 14:00 74 04/28/16 14:00 20 04/28/16 13:01 20 04/28/16 13:00 70 04/28/16 12:30 73 04/28/16 11:57 99.0 75 20 118/82 97 04/28/16 11:27 Nasal Cannula 2.00 04/28/16 11:00 75 04/28/16 08:38 97 2.00 04/29/16 04/29/16 04/29/16 07:00 15:00 23:00 Intake Total 1231 ml Output Total 1300 ml Balance -69 ml Exam: L groin incision c/d/i L lateral thigh incision c/d/i palpable graft lateral thigh lateral calf incision c/d/i L foot ischemic, liquefactive necrosis at toe amputation sites Assessment and Plan Assessment: (1) Cellulitis of both lower extremities Status: Chronic (2) PAD (peripheral artery disease) Status: Chronic Plan Despite having a palpable and therefore patent graft he has progressive ischemia of his foot. Will schedule for LEFT BKA Saturday. Needs aggressive pulmonary toilet, physical therapy. Discharge Planning rehab 4-5d after BKA if wound ok. Saúl Latif MD Apr 29, 2016 08:19
[2016-04-29] MEDS ORDERED: ONDANSETRON ODT 4 MG TAB PO PRN (08:30)
[2016-04-29] MEDS: METOPROLOL TARTRATE 50 MG TAB PO SCH ×2 (09:12→21:33)
[2016-04-29] MEDS: ASPIRIN EC 325 MG TABEC PO SCH (09:12)
[2016-04-29] MEDS: GABAPENTIN 400 MG CAP PO SCH ×3 (09:12→17:39)
[2016-04-29] MEDS: FUROSEMIDE 20 MG TAB PO SCH (09:12)
[2016-04-29] MEDS: SPIRONOLACTONE 25 MG TAB PO SCH (09:12)
[2016-04-29] MEDS: LACTIC ACID (AMMONIUM LACTATE) 12% LOTION 225 GM BTL TOPICAL SCH ×2 (09:13→21:00)
[2016-04-29] MEDS: BUDESONIDE-FORMOTEROL 160/4.5 MCG INHALER INH SCH ×2 (09:13→21:33)
[2016-04-29] MEDS: NS + KCL 20 MEQ INJ 1,000 ML IV SCH ×2 (09:22→22:57)
[2016-04-29 10:32] LABS: HEMATOCRIT 28.1 % (39.0-51.0); MEAN CELL VOLUME 92.5 FL (80.0-100.0); MEAN CORPUSCULAR HEMOGLOBIN 31.2 PG (27.0-34.0); MEAN CORPUSCULAR HGB CONC 33.7 % (32.0-36.0); PLATELET COUNT 291 TH/MM3 (150-450); RED BLOOD COUNT 3.04 MIL/MM3 (4.50-5.90); RED CELL DISTRIBUTION WIDTH 19.4 % (11.6-17.2); WHITE BLOOD COUNT 11.8 TH/MM3 (4.0-11.0)
[2016-04-29 10:33] LABS: REVIEW FLAG FINAL
[2016-04-29] MEDS: HEPARIN-D5W INJ 250 ML IV SCH (17:46)
[2016-04-29] MEDS: DOCUSATE CALCIUM 240 MG CAP PO SCH (21:00)
[2016-04-29] MEDS: ATORVASTATIN 40 MG TAB PO SCH (21:33)
[2016-04-29] MEDS: PANTOPRAZOLE SOD 40 MG DELAYED RELEASE TAB PO SCH (21:33)
[2016-04-30] VITALS (27 sets, daily range): BP systolic 116–169; BP diastolic 65–82; PULSE 72–97; RESP 16–20; TEMP 98.8–99.7; O2SAT 95–98
[2016-04-30] MEDS: LACTATED RINGER'S 1000 ML IV SCH (01:50)
[2016-04-30] MEDS: MORPHINE SULFATE 30 MG/30 ML PCA IV SCH ×3 (03:25→22:34)
[2016-04-30] MEDS: HEPARIN-D5W INJ 250 ML IV SCH (03:49)
[2016-04-30] MEDS: PCA - TOTAL MG MORPHINE DELIVERED PER SHIFT SCH ×3 (06:00→22:00)
[2016-04-30 07:17] LABS: HEMATOCRIT 25.5 % (39.0-51.0); MEAN CELL VOLUME 91.5 FL (80.0-100.0); MEAN CORPUSCULAR HEMOGLOBIN 31.7 PG (27.0-34.0); MEAN CORPUSCULAR HGB CONC 34.7 % (32.0-36.0); PLATELET COUNT 274 TH/MM3 (150-450); RED BLOOD COUNT 2.79 MIL/MM3 (4.50-5.90); RED CELL DISTRIBUTION WIDTH 19.8 % (11.6-17.2); WHITE BLOOD COUNT 10.9 TH/MM3 (4.0-11.0)
[2016-04-30 07:19] LABS: APTT (PATIENT) 44.8 SEC (24.3-30.1)
[2016-04-30 07:24] LABS: REVIEW FLAG FINAL
[2016-04-30] MEDS: RESP: ALBUTEROL 2.5 MG/IPRATROPIUM 0.5 MG NEB (SCH) INH ×4 (07:53→20:43)
[2016-04-30 07:56] LABS: ALKALINE PHOSPHATASE 68 U/L (45-117); ALT (GPT) 29 U/L (12-78); ANION GAP 10 MEQ/L (5-15); AST (GOT) 29 U/L (15-37); BICARBONATE 27.5 MEQ/L (21.0-32.0); BLOOD UREA NITROGEN 6 MG/DL (7-18); CHLORIDE 94 MEQ/L (98-107); GLOMERULAR FILTRATION RATE 157 ML/MIN (>89); SODIUM (NA) 131 MEQ/L (136-145); TOTAL BILIRUBIN ADULT 0.6 MG/DL (0.2-1.0)
[2016-04-30] MEDS: METOPROLOL TARTRATE 50 MG TAB PO SCH ×2 (08:19→21:06)
[2016-04-30] MEDS: ASPIRIN EC 325 MG TABEC PO SCH (08:19)
[2016-04-30] MEDS: FUROSEMIDE 20 MG TAB PO SCH (08:20)
[2016-04-30] MEDS: GABAPENTIN 400 MG CAP PO SCH ×3 (08:20→17:19)
[2016-04-30] MEDS: LACTIC ACID (AMMONIUM LACTATE) 12% LOTION 225 GM BTL TOPICAL SCH ×2 (08:20→21:00)
[2016-04-30] MEDS: BUDESONIDE-FORMOTEROL 160/4.5 MCG INHALER INH SCH ×2 (08:20→21:00)
[2016-04-30] MEDS: SPIRONOLACTONE 25 MG TAB PO SCH (08:20)
--- NOTE | 2016-04-30 10:27 | HHI.FPPN ---
Subjective Remarks Overnight, DEBI. Afebrile. Hypertensive to 160/80. Eating, voiding without difficulty Last BM three days ago, but +flatus. OOB with assistance. Bandage on L foot c/d/i C/o of pain L foot, adequately controlled with morphine [employer] REPAIR[employer] HELPER. Used 13mg this AM. Denies SIMONS/SOB, CP/palpitations, abdominal pain. Objective Vitals Vital Signs Date Time Temp Pulse Resp B/P Pulse Ox O2 Delivery O2 Flow Rate FiO2 04/30/16 09:00 97 04/30/16 08:50 99.1 78 16 160/76 96 04/30/16 08:50 18 04/30/16 08:50 Nasal Cannula 2.00 04/30/16 08:00 84 04/30/16 07:54 98 Nasal Cannula 2.00 04/30/16 07:00 80 04/30/16 06:00 75 04/30/16 06:00 18 04/30/16 05:00 78 04/30/16 04:00 83 04/30/16 04:00 98.9 90 16 168/72 98 04/30/16 03:30 18 04/30/16 03:25 18 04/30/16 03:00 78 04/30/16 02:00 78 04/30/16 01:00 75 04/30/16 00:00 98.8 92 16 169/82 95 04/30/16 00:00 73 04/29/16 23:00 87 04/29/16 22:00 18 04/29/16 22:00 87 04/29/16 22:00 18 04/29/16 21:00 86 04/29/16 20:35 Nasal Cannula 2.00 04/29/16 20:00 84 04/29/16 20:00 98.9 87 16 140/75 98 04/29/16 19:58 Nasal Cannula 2.00 04/29/16 19:00 86 04/29/16 18:00 86 04/29/16 17:41 18 04/29/16 17:00 90 04/29/16 16:33 99.0 89 16 129/88 95 04/29/16 16:00 96 04/29/16 15:00 81 04/29/16 15:00 Nasal Cannula 2.00 04/29/16 14:00 18 04/29/16 14:00 18 04/29/16 14:00 89 04/29/16 13:00 82 04/29/16 12:00 74 04/29/16 12:00 98.8 77 16 140/60 97 04/29/16 11:00 81 04/29/16 11:00 Nasal Cannula 2.00 I/O 04/29/16 04/29/16 04/29/16 04/30/16 04/30/16 04/30/16 07:00 15:00 23:00 07:00 15:00 23:00 Intake Total 1231 ml 1254 ml 360 ml Output Total 1300 ml 700 ml 1800 ml Balance -69 ml 554 ml -1440 ml Intake Oral 920 ml 400 ml 360 ml IV Total 311 ml 667 ml Other 187 ml Output Urine Total 1300 ml 700 ml 1800 ml # Bowel Movements 0 0 0 Result Diagram: 04/30/16 0625 04/30/16 0625 Imaging Last Impressions Neck CTA 04/19/16 0000 Signed Impressions: Service Date/Time: April 22:04 - CONCLUSION: Carotid stenosis bilaterally both felt to be hemodynamically significant, right appears worse than the left however the left carotid appears partially collapsed. Semaj Holden MD FACR Lower Extremity Ultrasound 04/18/16 0000 Signed Impressions: Service Date/Time: Monday, April 18, 2016 11:11 - CONCLUSION: No evidence of deep venous thrombosis. Saúl Hackett MD Chest X-Ray 04/17/16 1804 Signed Impressions: Service Date/Time: Sunday, April 17, 2016 18:20 - CONCLUSION: No acute disease. Joao Stoddard MD Aorta w/Runoff CTA 04/17/16 0000 Signed Impressions: Service Date/Time: Sunday, April 17, 2016 17:47 - CONCLUSION: In the left leg of concern, inflow is satisfactory. Superficial femoral artery is totally occluded. The popliteal reconstitutes however it is severely diseased throughout. Tibial vessels are patent, anterior tibial dominant. David Lazcano MD Objective Remarks CONST: male in NAD DERM: Warm and dry, except injured LLE as below HEENT: PERRL. MMM. CV: RRR. No murmurs. RESP: Anterior lung exam: equal breath sounds bilaterally. Heavy breathing, no wheezing. No wet cough appreciated today. GI: Abd NTND MSK: Amputated 1st and 2nd digits L foot. Left foot with erythema and black decay at carpal bones. LLE tender to palpation below knee. Bandaged c/d/i NEUROL: Grossly motor and sensory intact, excepting LLE as above PSYCH: Appropriate affect. Good insight. Procedures 04/24/16- LLE bypass, groin reconstruction, amputation 1st/2nd digits L foot. ( Dr Latif, [facility]) Urinary Catheter: No Vascular Central Line Catheter: No A/P Assessment and Plan 65y male with PAD, DM2, and tobacco abuse, hospitalized 04/17/15 for gangrene of L great toe. S/p L groin reconstruction and amputation L foot 1st and 2nd toes 04/24/16. L BKA planned 05/01/16. Discharge Planning 3-5 days, pending BKA on 05/01 and recovery. Pending recommendations by Vascular Surgery, discharge per PT PT/OT: at rehab Anticipate discharge to rehab when clinically ready. Case management assisting. SDW: Dr Salcedo, [address] ([facility]) DW: Dr Kendall Problem List: (1) Constipation Status: Acute Plan: -Continue Surfak HS (Pt refused 04/27, 04/29) -Milk of Magnesium x1 -Added Milk of Magnesium daily PRN starting 05/01/16 -Colase BID PRN constipation (2) Ischemic foot Status: Acute Plan: Admitted with dry gangrene of 1st and 2nd L toes secondary to severe PAD and ongoing tobacco abuse. S/p L fem-AT bypass with cryo; amputation of toes 1- 2 04/24/16. However, pathology of toe showed gangrenous necrosis beyond the margins of the sample. Due to subsequent progressive ischemia of foot, L BKA planned 05/01/16, with possible further amputation needed if surgery does not heal. Plan: -Vascular Surgery consulted Left BKA for 05/01 (Dr. Latif) -Pain management: LA[employer]PA[employer] HELPER pump- Morphine 30mg q4h [place] q4h PRN pain 6-10 Morphine PRN breakthrough Continue Gabapentin 800mg TID -Continue Heparin ggt per Vacular surgeon for graft protection -Continue daily PT Imaging Neck CTA (04/19): hemodynamically significant carotid stenosis bilaterally, right appears worse than left, however the left carotid appears partially collapsed. CTA runoff: with severe occlusions (Inflow satisfactory, but supf femoral artery totally concluded, severely diseased popliteal, tibial vessels patent). Angiogram LLE (04/19): patent ABF limb and profunda, occluded L SFA & popliteal artery, occluded L peroneal and PT, patent but diseased AT, need groin reconstruction and fem-AT (3) Normocytic anemia due to blood loss Status: Resolved Plan: Transfused 2 units PRBC 04/26 per [facility]. Hgb stable ~9 -Transfuse for Hgb <7 (4) CAD (coronary artery disease) Status: Acute Plan: Cardiac cath July 2014 showing EF of 25%. Severe ocronary disease s/p 3 bypass grafts. Aspirin contraindicated due to hx melena (05/2015) -Continue home metoprolol 50mg BID -Continue home Atorvastatin (5) COPD (chronic obstructive pulmonary disease) Status: Chronic Plan: Stable. RA on admission, requiring O2 supplementation after surgery. Breathing well on room air. -O2 supplementation PRN for to maintain saturations 88%-92% -Duoneb Q4H ALYSSA while awake -Albuterol 2puff q6h PRN SOB -Symbicort 2pugg BID ALYSSA -Incentive spirometry (6) CHF (congestive heart failure) Status: Chronic Plan: EF 2014 25%. Continue home Lasix 20mg PO daily Continue home spironolactone 25mg PO daily (7) Bilateral carotid artery stenosis Status: Chronic Plan: 04/19 CTA Neck significant for carotid stenosis bilaterally, both felt to be hemodynamically significant. Right worse than L, left partially collapsed. Asymptomatic at this time. -Defer to Vascular Surgery. (8) Atrial fibrillation Status: Chronic Plan: Hold home Coumadin. -Currently on heparin ggt, per vasc surgery (9) DM type 2 (diabetes mellitus, type 2) Status: Chronic Plan: Hold home metformin. Discontinued SSI as blood glucose wnl consistently. POC glucose 100-120 in AM. Recommend d/c metformin at discharge. -Continue heart healthy diet (10) PAD (peripheral artery disease) Status: Chronic Plan: Severe. History of multiple extensive and complex surgeries -see plan for gangrene (11) Nutrition, metabolism, and development symptoms Status: Chronic Plan: Fluids: Per PO Electrolytes: Chronic Hyponatremia, stable. Slowly improving. Continue to monitor and replete as needed. Nutrition: Heart Healthy diet DVT PPx: Heparin ggt GI ppx: Protonix 40mg PO HS Problem Qualifiers (1) Constipation: Qualified Code: K59.03 - Drug-induced constipation (2) CAD (coronary artery disease): Qualified Code: I25.810 - Coronary artery disease involving coronary bypass graft of [place] heart without angina pectoris (3) COPD (chronic obstructive pulmonary disease): Qualified Code: J43.1 - Panlobular emphysema (4) CHF (congestive heart failure): Qualified Code: I50.9 - Congestive heart failure, unspecified congestive heart failure chronicity, unspecified congestive heart failure type (5) Atrial fibrillation: Qualified Code: I48.0 - Paroxysmal atrial fibrillation (6) DM type 2 (diabetes mellitus, type 2): Qualified Code: E11.9 - Type 2 diabetes mellitus without complication, without long-term current use of insulin Ninoska Egan MD R1 Apr 30, 2016 10:26
[2016-04-30] MEDS ORDERED: DOCUSATE SODIUM 100 MG CAP PO SCH (10:51)
[2016-04-30] MEDS ORDERED: DOCUSATE SODIUM 100 MG CAP PO PRN (11:00)
[2016-04-30] MEDS ORDERED: MAGNESIUM HYDROXIDE SUSP 30 ML CUP PO ONE (11:00)
--- NOTE | 2016-04-30 11:37 | PD.VS.PN ---
Subjective Subjective/Hospital Course Pt resting on st comfortably in good spirits, states he feels like he has more strength today. Pt did c/o left upper thigh with slight discomfort and swelling but noted that the pain medications has controlled his pain. Objective Vitals/I&O Date Time Temp Pulse Resp B/P Pulse Ox O2 Delivery O2 Flow Rate FiO2 04/30/16 09:00 97 04/30/16 08:50 99.1 78 16 160/76 96 04/30/16 08:50 18 04/30/16 08:50 Nasal Cannula 2.00 04/30/16 08:00 84 04/30/16 07:54 98 Nasal Cannula 2.00 04/30/16 07:00 80 04/30/16 06:00 75 04/30/16 06:00 18 04/30/16 05:00 78 04/30/16 04:00 83 04/30/16 04:00 98.9 90 16 168/72 98 04/30/16 03:30 18 04/30/16 03:25 18 04/30/16 03:00 78 04/30/16 02:00 78 04/30/16 01:00 75 04/30/16 00:00 98.8 92 16 169/82 95 04/30/16 00:00 73 04/29/16 23:00 87 04/29/16 22:00 18 04/29/16 22:00 87 04/29/16 22:00 18 04/29/16 21:00 86 04/29/16 20:35 Nasal Cannula 2.00 04/29/16 20:00 84 04/29/16 20:00 98.9 87 16 140/75 98 04/29/16 19:58 Nasal Cannula 2.00 04/29/16 19:00 86 04/29/16 18:00 86 04/29/16 17:41 18 04/29/16 17:00 90 04/29/16 16:33 99.0 89 16 129/88 95 04/29/16 16:00 96 04/29/16 15:00 81 04/29/16 15:00 Nasal Cannula 2.00 04/29/16 14:00 18 04/29/16 14:00 18 04/29/16 14:00 89 04/29/16 13:00 82 1/22/17 12:00 74 04/29/16 12:00 98.8 77 16 140/60 97 Physical Exam GENERAL: Pt resting comfortably in NAD, GCS 15 SKIN: Warm and dry. Slight swelling noted to left thigh region, Dressing to left foot C/D/I, zan to left lower leg intact with no redness, drainage or swelling. Left groin incision intact no redness, drainage or swelling. NECK: Supple, trachea midline. No JVD or lymphadenopathy. CARDIOVASCULAR: Regular rate and rhythm without murmurs, gallops, or rubs. RESPIRATORY: Breath sounds equal bilaterally. No accessory muscle use. GASTROINTESTINAL: Abdomen soft, non-tender, nondistended. Laboratory Laboratory Tests Test 04/30/16 06:25 White Blood Count 10.9 Red Blood Count 2.79 Hemoglobin 8.8 Hematocrit 25.5 Mean Corpuscular Volume 91.5 Mean Corpuscular Hemoglobin 31.7 Mean Corpuscular Hemoglobin 34.7 Concent Red Cell Distribution Width 19.8 Platelet Count 274 Mean Platelet Volume 8.3 Activated Partial 44.8 Thromboplast Time Sodium Level 131 Potassium Level 4.0 Chloride Level 94 Carbon Dioxide Level 27.5 Anion Gap 10 Blood Urea Nitrogen 6 Creatinine 0.53 Estimat Glomerular Filtration 157 Rate Random Glucose 130 Calcium Level 8.3 Total Bilirubin 0.6 Aspartate Amino Transf 29 (AST/SGOT) Alanine Aminotransferase 29 (ALT/SGPT) Alkaline Phosphatase 68 Total Protein 6.5 Albumin 2.3 Assessment and Plan Assessment: (1) Cellulitis of both lower extremities Status: Chronic (2) PAD (peripheral artery disease) Status: Chronic Plan Progressive ischemia of his left foot. Pt schedule for LEFT BKA 05/01/16 Discharge Planning Rehab 4-5d after BKA if wound ok. Diana Olivera Apr 30, 2016 11:37
--- NOTE | 2016-04-30 17:58 | PD.VS.PN ---
Pre-operative Note Pre-operative diagnosis: unreconstructable PAD Planned procedure: L BKA Labs: Laboratory Tests Test 04/30/16 06:25 White Blood Count 10.9 Red Blood Count 2.79 Hemoglobin 8.8 Hematocrit 25.5 Mean Corpuscular Volume 91.5 Mean Corpuscular Hemoglobin 31.7 Mean Corpuscular Hemoglobin 34.7 Concent Red Cell Distribution Width 19.8 Platelet Count 274 Mean Platelet Volume 8.3 Activated Partial 44.8 Thromboplast Time Sodium Level 131 Potassium Level 4.0 Chloride Level 94 Carbon Dioxide Level 27.5 Anion Gap 10 Blood Urea Nitrogen 6 Creatinine 0.53 Estimat Glomerular Filtration 157 Rate Random Glucose 130 Calcium Level 8.3 Total Bilirubin 0.6 Aspartate Amino Transf 29 (AST/SGOT) Alanine Aminotransferase 29 (ALT/SGPT) Alkaline Phosphatase 68 Total Protein 6.5 Albumin 2.3 Blood: T&C 2U Imaging: none needed Orders: NPO after MN MIVF Vanc OCTOR Post-operative destination: PACU Operative site marked: Yes Consent: Informed consent has been obtained from Guanaco Salcedo. I have explained the procedure in detail and discussed the risks, benefits, and potential complications. All questions have been answered. Saúl Latif MD Apr 30, 2016 17:58
[2016-04-30] MEDS: DOCUSATE CALCIUM 240 MG CAP PO SCH (21:00)
[2016-04-30] MEDS: ATORVASTATIN 40 MG TAB PO SCH (21:06)
[2016-04-30] MEDS: PANTOPRAZOLE SOD 40 MG DELAYED RELEASE TAB PO SCH (21:06)
[2016-05-01] VITALS (23 sets, daily range): BP systolic 131–152; BP diastolic 68–75; PULSE 73–97; RESP 12–20; TEMP 97.4–99.3; O2SAT 95–98
[2016-05-01] MEDS ORDERED: INSULIN HUMAN REGULAR 1,000 UNITS/10 ML VIAL SQ PRN (01:15)
[2016-05-01] MEDS ORDERED: SODIUM CHLORID 0.9% 500 ML IV SCH (01:15)
[2016-05-01] MEDS ORDERED: LACTATED RINGER'S 1000 ML IV SCH (01:15)
[2016-05-01] MEDS: LACTATED RINGER'S 1000 ML IV SCH (04:15)
[2016-05-01] MEDS: PCA - TOTAL MG MORPHINE DELIVERED PER SHIFT SCH ×3 (05:39→22:00)
[2016-05-01 06:59] LABS: BASOPHIL % 0.4 % (0.0-2.0); EOSINOPHIL # 0.1 TH/MM3 (0-0.4); EOSINOPHIL % 0.8 % (0.0-4.0); LYMPH % 6.6 % (9.0-44.0); LYMPHOCYTE # 0.8 TH/MM3 (1.0-4.8); MEAN CELL VOLUME 92.8 FL (80.0-100.0); MEAN CORPUSCULAR HEMOGLOBIN 31.1 PG (27.0-34.0); MEAN CORPUSCULAR HGB CONC 33.6 % (32.0-36.0); MONO % 9.5 % (0.0-8.0); NEUT % 82.7 % (16.0-70.0); PLATELET COUNT 307 TH/MM3 (150-450); RED BLOOD COUNT 3.02 MIL/MM3 (4.50-5.90); RED CELL DISTRIBUTION WIDTH 19.4 % (11.6-17.2); WHITE BLOOD COUNT 12.1 TH/MM3 (4.0-11.0)
[2016-05-01 07:06] LABS: HEMO FLAGS AUTO DIFF
[2016-05-01 07:08] LABS: APTT (PATIENT) 29.1 SEC (24.3-30.1)
[2016-05-01 07:19] LABS: ANION GAP 8 MEQ/L (5-15); AST (GOT) 24 U/L (15-37); BICARBONATE 30.4 MEQ/L (21.0-32.0); BLOOD UREA NITROGEN 6 MG/DL (7-18); CHLORIDE 95 MEQ/L (98-107); GLOMERULAR FILTRATION RATE 189 ML/MIN (>89); POTASSIUM 4.4 MEQ/L (3.5-5.1); SODIUM (NA) 133 MEQ/L (136-145)
[2016-05-01 07:22] LABS: ALKALINE PHOSPHATASE 68 U/L (45-117); ALT (GPT) 26 U/L (12-78); TOTAL BILIRUBIN ADULT 0.7 MG/DL (0.2-1.0)
[2016-05-01] MEDS: RESP: ALBUTEROL 2.5 MG/IPRATROPIUM 0.5 MG NEB (SCH) INH ×4 (07:31→22:05)
[2016-05-01 07:59] LABS: SCAN/DIFF AUTO DIFF CONFIRMED
[2016-05-01] MEDS: BUDESONIDE-FORMOTEROL 160/4.5 MCG INHALER INH SCH ×2 (08:17→20:32)
[2016-05-01] MEDS: METOPROLOL TARTRATE 50 MG TAB PO SCH ×2 (08:18→20:30)
[2016-05-01] MEDS: FUROSEMIDE 20 MG TAB PO SCH (08:18)
[2016-05-01] MEDS: GABAPENTIN 400 MG CAP PO SCH ×3 (08:18→17:12)
[2016-05-01] MEDS: SPIRONOLACTONE 25 MG TAB PO SCH (08:18)
[2016-05-01] MEDS: ASPIRIN EC 325 MG TABEC PO SCH (08:18)
[2016-05-01] MEDS: LACTIC ACID (AMMONIUM LACTATE) 12% LOTION 225 GM BTL TOPICAL SCH ×2 (08:19→20:32)
--- NOTE | 2016-05-01 08:30 | HHI.FPPN ---
Subjective Remarks No acute issues overnight. Vitals are stable, patient remains afebrile. He feels ready for his BKA procedure today. He denies any chest pain, shortness of breath, fever, chills, nausea or vomiting. Last bowel movement was yesterday. Objective Vitals Vital Signs Date Time Temp Pulse Resp B/P Pulse Ox O2 Delivery O2 Flow Rate FiO2 05/01/16 07:31 97 Nasal Cannula 2.00 05/01/16 07:00 99.3 84 18 152/75 96 05/01/16 07:00 96 Nasal Cannula 2.00 05/01/16 06:20 96 Nasal Cannula 2.00 05/01/16 06:00 80 05/01/16 06:00 18 05/01/16 05:39 16 05/01/16 05:00 82 05/01/16 04:00 77 05/01/16 04:00 98.9 80 16 147/75 95 05/01/16 03:00 82 05/01/16 02:00 80 05/01/16 01:00 79 05/01/16 00:05 96 Nasal Cannula 2.00 05/01/16 00:00 85 05/01/16 00:00 98.7 97 16 131/68 97 04/30/16 23:00 79 04/30/16 22:34 18 04/30/16 22:00 82 04/30/16 22:00 18 04/30/16 22:00 18 04/30/16 21:00 88 04/30/16 20:00 87 04/30/16 20:00 98.9 88 16 127/70 95 04/30/16 19:55 96 Nasal Cannula 2.00 04/30/16 19:00 90 04/30/16 18:01 86 04/30/16 17:00 84 04/30/16 16:00 84 04/30/16 15:30 98.9 97 20 116/74 97 04/30/16 15:30 97 Nasal Cannula 2.00 04/30/16 15:00 90 04/30/16 14:29 20 04/30/16 14:00 87 04/30/16 13:00 76 04/30/16 12:00 72 04/30/16 12:00 99.7 81 16 134/65 95 04/30/16 11:00 75 04/30/16 11:00 Nasal Cannula 2.00 04/30/16 10:00 79 04/30/16 09:00 97 04/30/16 08:50 99.1 78 16 160/76 96 04/30/16 08:50 18 04/30/16 08:50 Nasal Cannula 2.00 I/O 04/30/16 04/30/16 04/30/16 05/01/16 05/01/16 05/01/16 07:00 15:00 23:00 07:00 15:00 23:00 Intake Total 360 ml 1380 ml 360 ml Output Total 1800 ml 650 ml 1500 ml Balance -1440 ml 730 ml -1140 ml Intake Oral 360 ml 600 ml 360 ml IV Total 780 ml Output Urine Total 1800 ml 650 ml 1500 ml # Bowel Movements 0 1 Result Diagram: 05/01/16 0610 05/01/16 0610 Imaging Last Impressions Neck CTA 04/19/16 0000 Signed Impressions: Service Date/Time: April 22:04 - CONCLUSION: Carotid stenosis bilaterally both felt to be hemodynamically significant, right appears worse than the left however the left carotid appears partially collapsed. Semaj Holden MD FACR Lower Extremity Ultrasound 04/18/16 0000 Signed Impressions: Service Date/Time: Monday, April 18, 2016 11:11 - CONCLUSION: No evidence of deep venous thrombosis. Saúl Hackett MD Chest X-Ray 04/17/16 1804 Signed Impressions: Service Date/Time: Sunday, April 17, 2016 18:20 - CONCLUSION: No acute disease. Joao Stoddard MD Aorta w/Runoff CTA 04/17/16 0000 Signed Impressions: Service Date/Time: Sunday, April 17, 2016 17:47 - CONCLUSION: In the left leg of concern, inflow is satisfactory. Superficial femoral artery is totally occluded. The popliteal reconstitutes however it is severely diseased throughout. Tibial vessels are patent, anterior tibial dominant. David Lazcano MD Objective Remarks CONST: male lying in bed, in NAD DERM: Warm and dry HEENT: PERRL. MMM. CV: RRR. No murmurs. RESP: Clear to auscultation bilaterally. GI: Abd NTND MSK: Amputated 1st and 2nd digits L foot. Left foot with erythema and black decay at carpal bones. LLE tender to palpation below knee. Bandaged c/d/i NEUROL: Grossly motor and sensory intact, excepting LLE as above PSYCH: Appropriate affect. Good insight. Procedures 04/24/16- LLE bypass, groin reconstruction, amputation 1st/2nd digits L foot. ( Dr Latif, [facility]) A/P Assessment and Plan 65yo male with PAD, DM2, and tobacco abuse, hospitalized 04/17/15 for gangrene of L great toe. S/p L groin reconstruction and amputation L foot 1st and 2nd toes 04/24/16. L BKA planned 05/01/16. Discharge Planning 4-5 days, pending BKA on 05/01 and recovery. PT/OT: at rehab Anticipate discharge to rehab when clinically ready. Case management assisting. dw Dr. Kendall and Dr. Egan Problem List: (1) Ischemic foot Status: Acute Plan: Admitted with dry gangrene of 1st and 2nd L toes secondary to severe PAD and ongoing tobacco abuse. S/p L fem-AT bypass with cryo; amputation of toes 1-2 04/24/16. Pathology of toe showed gangrenous necrosis beyond the margins of the sample. Due to subsequent progressive ischemia of foot, L BKA planned 05/01/16. Plan: -Vascular Surgery consulted Left BKA planned for today (Dr. Latif) -Pain management: [employer] pump- Morphine 30mg q4h [place] q4h PRN pain 6-10 Morphine PRN breakthrough Continue Gabapentin 800mg TID -Heparin ggt DC'd preoperatively -Continue daily PT Imaging Neck CTA (04/19): hemodynamically significant carotid stenosis bilaterally, right appears worse than left, however the left carotid appears partially collapsed. CTA runoff: with severe occlusions (Inflow satisfactory, but supf femoral artery totally concluded, severely diseased popliteal, tibial vessels patent). Angiogram LLE (04/19): patent ABF limb and profunda, occluded L SFA & popliteal artery, occluded L peroneal and PT, patent but diseased AT, need groin reconstruction and fem-AT (2) Constipation Status: Resolved Plan: -Continue Surfak HS -Milk of Magnesium daily PRN -Colace BID PRN constipation (3) Normocytic anemia due to blood loss Status: Chronic Plan: Transfused 2 units PRBC 04/26 per [facility]. Hgb stable ~9 -Transfuse for Hgb <7 (4) CAD (coronary artery disease) Status: Chronic Plan: Cardiac cath July 2014 showing EF of 25%. Severe coronary disease s/p 3 bypass grafts. Aspirin contraindicated due to hx melena (05/2015) -Continue home metoprolol 50mg BID -Continue home Atorvastatin (5) COPD (chronic obstructive pulmonary disease) Status: Chronic Plan: Stable. RA on admission, requiring O2 supplementation after surgery. Breathing well on room air. -O2 supplementation PRN for to maintain saturations 88%-92% -Duoneb Q4H ALYSSA while awake -Albuterol 2puff q6h PRN SOB -Symbicort 2pugg BID ALYSSA -Incentive spirometry (6) CHF (congestive heart failure) Status: Chronic Plan: EF 2014 25%. Continue home Lasix 20mg PO daily Continue home spironolactone 25mg PO daily (7) Bilateral carotid artery stenosis Status: Chronic Plan: 04/19 CTA Neck significant for carotid stenosis bilaterally, both felt to be hemodynamically significant. Right worse than L, left partially collapsed. Asymptomatic at this time. -Defer to Vascular Surgery. (8) Atrial fibrillation Status: Chronic Plan: Hold home Coumadin. -anticoagulation currently being held for surgery (9) DM type 2 (diabetes mellitus, type 2) Status: Chronic Plan: Hold home metformin. Discontinued SSI as blood glucose wnl consistently. -Continue heart healthy diet (10) PAD (peripheral artery disease) Status: Chronic Plan: Severe. History of multiple extensive and complex surgeries -see plan for gangrene (11) Nutrition, metabolism, and development symptoms Status: Chronic Plan: Fluids: kvo Electrolytes: Chronic Hyponatremia, stable. Continue to monitor and replete as needed. Nutrition: NPO pending surgery DVT PPx: chemical anticoagulation held for surgery GI ppx: Protonix 40mg PO HS Problem Qualifiers (1) Constipation: Qualified Code: K59.03 - Drug-induced constipation (2) CAD (coronary artery disease): Qualified Code: I25.810 - Coronary artery disease involving coronary bypass graft of [place] heart without angina pectoris (3) COPD (chronic obstructive pulmonary disease): Qualified Code: J43.1 - Panlobular emphysema (4) CHF (congestive heart failure): Qualified Code: I50.9 - Congestive heart failure, unspecified congestive heart failure chronicity, unspecified congestive heart failure type (5) Atrial fibrillation: Qualified Code: I48.0 - Paroxysmal atrial fibrillation (6) DM type 2 (diabetes mellitus, type 2): Qualified Code: E11.9 - Type 2 diabetes mellitus without complication, without long-term current use of insulin Freda Rodriguez MD R2 May 01, 2016 08:30
[2016-05-01] MEDS ORDERED: BUPIVACAINE HCL PF 0.5% 30 ML VIAL NB ONE (08:35)
[2016-05-01] MEDS: MORPHINE SULFATE 30 MG/30 ML PCA IV SCH (08:38)
[2016-05-01] MEDS ORDERED: MAGNESIUM HYDROXIDE SUSP 30 ML CUP PO PRN (09:00)
[2016-05-01] MEDS ORDERED: MIDAZOLAM HCL 2 MG/2 ML VIAL ONE (09:38)
[2016-05-01] MEDS ORDERED: VANCOMYCIN HCL 1000 MG VIAL ONE (10:30)
[2016-05-01] MEDS ORDERED: SODIUM CHLOR 0.9% 250 ML INJ 250 ML ONE (10:31)
[2016-05-01] MEDS ORDERED: Post-op Orders (for Pharmacy) MISC OTHER ONE (12:00)
[2016-05-01] MEDS ORDERED: fentaNYL CITRATE 250 MCG/5 ML AMP ONE (12:10)
[2016-05-01] MEDS ORDERED: DO NOT ADM ANY ANTICOAGULANT DRUGS XX PRN (12:30)
[2016-05-01] MEDS ORDERED: FUROSEMIDE 20 MG/2 ML VIAL IV ONE (12:30)
[2016-05-01] MEDS ORDERED: POTASSIUM PHOSPHATE INJ 21 MMOL in SODIUM CHLOR 0.9% 250 ML INJ 250 ML IV PRN (12:45)
[2016-05-01] MEDS ORDERED: LACTATED RINGER'S 1000 ML INJ 500 ML IV SCH (12:45)
[2016-05-01] MEDS ORDERED: SODIUM CHLORIDE 0.9% FLUSH 5 ML FLUSH IV FLUSH PRN (12:45)
[2016-05-01] MEDS ORDERED: POTASSIUM CHLOR 20 MEQ PREMIX 100 ML IV PRN (12:45)
[2016-05-01] MEDS ORDERED: MAGNESIUM SULFATE 1 GM PREMIX 200 ML IV PRN (12:45)
--- NOTE | 2016-05-01 12:45 | HHI.PR ---
Immediate Post Op Note Procedure Date: May 01, 2016 Pre Op Diagnosis: non-reconstructible PAD Post Op Diagnosis: non-reconstructible PAD Surgeon: Saúl Latif Oil Producer(s): none Procedure: L BKA Findings: palpable graft, decent perfusion at level of amputation no undrained infection Complications: none apparent Specimen(s) removed: L lower leg Estimated blood loss: 200mL Anesthesia: General Drains: None Fluids: 600mL IVF (60) Patient to: PACU Patient Condition: Good Date/Time of Procedure: SEE SURGICAL CARE RECORD Saúl Latif MD May 01, 2016 12:45
[2016-05-01] MEDS ORDERED: *morphine SULFATE 8 MG/ML PERIprocedure ONLY ONE ×2 (12:48→12:58)
--- NOTE | 2016-05-01 12:59 | EKG ---
Date Performed: 05/01/2016 Time Performed: 07:16:16 PTAGE: 65 years EKG: BASELINE ARTIFACT PRESENT. Sinus rhythm Incomplete RIGHT bundle branch block Low QRS voltages in limb leads Abnormal ECG COMPARED TO PRIOR E LECTROCARDIOGRAM, Both EKGs have artifact but I see no definite change. NO PREVIOUS TRACING DOCTOR: Nasim Nelson Interpretating Date/Time 05/01/2016 12:59:27
[2016-05-01] MEDS ORDERED: NEOSTIGMINE 3 MG/3 ML SYR IV ONE (14:08)
[2016-05-01] MEDS ORDERED: PROPOFOL 200 MG/20 ML AMP IV ONE (14:08)
[2016-05-01] MEDS ORDERED: NORMOSOL R INJ 1,000 ML IV ONE (14:08)
[2016-05-01] MEDS ORDERED: PHENYLEPH/NS 1000 MCG/10 ML SYR IV ONE (14:08)
[2016-05-01] MEDS ORDERED: ONDANSETRON HCL 4 MG/2 ML VIAL IV PUSH ONE (14:08)
[2016-05-01] MEDS: PANTOPRAZOLE SOD 40 MG DELAYED RELEASE TAB PO SCH (20:30)
[2016-05-01] MEDS: ATORVASTATIN 40 MG TAB PO SCH (20:30)
[2016-05-01] MEDS: SODIUM CHLORIDE 0.9% FLUSH 5 ML FLUSH IV FLUSH SCH (20:32)
[2016-05-01] MEDS: DOCUSATE CALCIUM 240 MG CAP PO SCH (21:00)
[2016-05-02] VITALS (28 sets, daily range): BP systolic 124–184; BP diastolic 69–84; PULSE 68–99; RESP 18–20; TEMP 98–99.1; O2SAT 95–99
[2016-05-02] MEDS: MORPHINE SULFATE 30 MG/30 ML PCA IV SCH ×3 (01:11→16:45)
[2016-05-02] MEDS: MORPHINE SULFATE 4 MG/ML INJ IV PRN (05:24)
[2016-05-02] MEDS: PCA - TOTAL MG MORPHINE DELIVERED PER SHIFT SCH ×3 (06:00→22:00)
[2016-05-02 06:32] LABS: HEMATOCRIT 32.3 % (39.0-51.0); MEAN CELL VOLUME 90.3 FL (80.0-100.0); MEAN CORPUSCULAR HEMOGLOBIN 30.8 PG (27.0-34.0); MEAN CORPUSCULAR HGB CONC 34.1 % (32.0-36.0); PLATELET COUNT 296 TH/MM3 (150-450); RED BLOOD COUNT 3.58 MIL/MM3 (4.50-5.90); REVIEW FLAG FINAL; WHITE BLOOD COUNT 14.8 TH/MM3 (4.0-11.0)
[2016-05-02 06:43] LABS: APTT (PATIENT) 27.3 SEC (24.3-30.1)
[2016-05-02 06:52] LABS: BICARBONATE 29.8 MEQ/L (21.0-32.0); POTASSIUM 4.3 MEQ/L (3.5-5.1)
--- NOTE | 2016-05-02 07:34 | PD.VS.PN ---
Subjective POD #: 1 Procedure(s): L BKA Subjective/Hospital Course No intra-operative problems. Tx 2U PRBC last night and Hct 32 this morning. Pain controlled - occasional phantom pain but feels well Objective Vitals/I&O Date Time Temp Pulse Resp B/P Pulse Ox O2 Delivery O2 Flow Rate FiO2 05/02/16 06:00 89 05/02/16 06:00 20 05/02/16 05:00 76 05/02/16 04:30 98.2 72 20 154/72 99 05/02/16 04:30 Nasal Cannula 2.00 05/02/16 04:30 68 05/02/16 04:00 68 05/02/16 03:00 70 05/02/16 02:00 71 05/02/16 01:11 20 05/02/16 01:00 80 05/02/16 00:00 75 05/02/16 00:00 Nasal Cannula 2.00 05/02/16 00:00 98.0 84 20 184/84 95 05/01/16 23:00 76 05/01/16 22:05 Nasal Cannula 3.00 05/01/16 22:00 20 05/01/16 22:00 73 05/01/16 22:00 20 05/01/16 21:00 74 05/01/16 20:00 97.6 79 20 141/75 95 05/01/16 20:00 81 05/01/16 20:00 Nasal Cannula 2.00 05/01/16 19:00 83 05/01/16 18:00 84 05/01/16 17:00 75 05/01/16 16:00 98.6 87 19 135/69 98 05/01/16 16:00 85 05/01/16 15:00 94 Nasal Cannula 3.00 05/01/16 15:00 90 05/01/16 14:00 80 05/01/16 14:00 17 05/01/16 13:30 98.4 76 19 140/69 98 05/01/16 13:30 96 Nasal Cannula 4.00 05/01/16 13:15 75 16 137/82 95 Nasal Cannula 3 05/01/16 13:00 76 14 140/77 97 Nasal Cannula 3 05/01/16 12:45 97.4 75 13 148/75 95 Nasal Cannula 3 05/01/16 12:40 97.4 75 12 148/75 95 05/01/16 12:30 76 12 135/85 95 Nasal Cannula 3 05/01/16 12:15 76 12 141/71 97 Nasal Cannula 3 05/01/16 12:00 99.2 80 14 150/89 98 Nasal Cannula 3 05/01/16 09:00 87 05/01/16 08:38 19 05/01/16 08:00 85 Exam: L leg incisions except BKA c/d/i Dressing in place for BKA Laboratory Laboratory Tests Test 05/01/16 05/02/16 11:02 06:06 Blood Type B POSITIVE Crossmatch Leukocyte-Reduced Red Blood Cells Blood Bank Comment White Blood Count 14.8 Red Blood Count 3.58 Hemoglobin 11.0 Hematocrit 32.3 Mean Corpuscular Volume 90.3 Mean Corpuscular Hemoglobin 30.8 Mean Corpuscular Hemoglobin 34.1 Concent Red Cell Distribution Width 18.0 Platelet Count 296 Mean Platelet Volume 8.1 Activated Partial 27.3 Thromboplast Time Sodium Level 130 Potassium Level 4.3 Chloride Level 92 Carbon Dioxide Level 29.8 Anion Gap 8 Blood Urea Nitrogen 8 Creatinine 0.60 Estimat Glomerular Filtration 136 Rate Random Glucose 158 Calcium Level 9.2 Assessment and Plan Assessment: (1) Cellulitis of both lower extremities Status: Chronic (2) PAD (peripheral artery disease) Status: Chronic Plan Doing well, pain controlled after BKA Plan on taking dressing down on Saturday (POD#3). Needs PT - can be OOB and WBAT on R LE Discharge Planning Likely ready for d/c to rehab by Sat. Pt expressed interest in local rehab (e.g., [facility]). Súal Latif MD May 02, 2016 07:34
[2016-05-02] MEDS: RESP: ALBUTEROL 2.5 MG/IPRATROPIUM 0.5 MG NEB (SCH) INH ×4 (07:48→20:27)
--- NOTE | 2016-05-02 08:11 | HHI.FPPN ---
Subjective Remarks POD1 L TRINIDAD Overnight, DEBI. AFVSS. B/P 150/70. Eating, voiding, stooling without difficulty. Activity changed from bed rest to OOB w assistance. Pt is good mood, smiling. Pain well-controlled with [employer] pump. L TRINIDAD in JOSEFINA bandage- c/d/i Denies pitt/bv, sob/cp, n/v Requests discharge to [facility]- been there before really likes the people there (Ninoska Egan MD R1) Objective Vitals Vital Signs Date Time Temp Pulse Resp B/P Pulse Ox O2 Delivery O2 Flow Rate FiO2 05/02/16 07:51 95 Nasal Cannula 3.00 05/02/16 07:37 20 05/02/16 06:00 89 05/02/16 06:00 20 05/02/16 05:00 76 05/02/16 04:30 98.2 72 20 154/72 99 05/02/16 04:30 Nasal Cannula 2.00 05/02/16 04:30 68 05/02/16 04:00 68 05/02/16 03:00 70 05/02/16 02:00 71 05/02/16 01:11 20 05/02/16 01:00 80 05/02/16 00:00 75 05/02/16 00:00 Nasal Cannula 2.00 05/02/16 00:00 98.0 84 20 184/84 95 05/01/16 23:00 76 05/01/16 22:05 Nasal Cannula 3.00 05/01/16 22:00 20 05/01/16 22:00 73 05/01/16 22:00 20 05/01/16 21:00 74 05/01/16 20:00 97.6 79 20 141/75 95 05/01/16 20:00 81 05/01/16 20:00 Nasal Cannula 2.00 05/01/16 19:00 83 05/01/16 18:00 84 05/01/16 17:00 75 05/01/16 16:00 98.6 87 19 135/69 98 05/01/16 16:00 85 05/01/16 15:00 94 Nasal Cannula 3.00 05/01/16 15:00 90 05/01/16 14:00 80 05/01/16 14:00 17 05/01/16 13:30 98.4 76 19 140/69 98 05/01/16 13:30 96 Nasal Cannula 4.00 05/01/16 13:15 75 16 137/82 95 Nasal Cannula 3 05/01/16 13:00 76 14 140/77 97 Nasal Cannula 3 05/01/16 12:45 97.4 75 13 148/75 95 Nasal Cannula 3 05/01/16 12:40 97.4 75 12 148/75 95 05/01/16 12:30 76 12 135/85 95 Nasal Cannula 3 05/01/16 12:15 76 12 141/71 97 Nasal Cannula 3 05/01/16 12:00 99.2 80 14 150/89 98 Nasal Cannula 3 05/01/16 09:00 87 05/01/16 08:38 19 I/O 05/01/16 05/01/16 05/01/16 05/02/16 05/02/16 05/02/16 07:00 15:00 23:00 07:00 15:00 23:00 Intake Total 360 ml 600 ml 780 ml 800 ml Output Total 1500 ml 450 ml 1425 ml 1900 ml Balance -1140 ml 150 ml -645 ml -1100 ml Intake Oral 360 ml 480 ml 800 ml IV Total 300 ml Other 600 ml Output Urine Total 1500 ml 250 ml 1425 ml 1900 ml Estimated Blood Loss 200 ml (Ninoska Egan MD R1) Result Diagram: 05/02/16 0606 05/02/16 0606 Imaging Last Impressions Neck CTA 04/19/16 0000 Signed Impressions: Service Date/Time: April 22:04 - CONCLUSION: Carotid stenosis bilaterally both felt to be hemodynamically significant, right appears worse than the left however the left carotid appears partially collapsed. Semaj Holden MD FACR Lower Extremity Ultrasound 04/18/16 0000 Signed Impressions: Service Date/Time: Monday, April 18, 2016 11:11 - CONCLUSION: No evidence of deep venous thrombosis. Saúl Hackett MD Chest X-Ray 04/17/16 1804 Signed Impressions: Service Date/Time: Sunday, April 17, 2016 18:20 - CONCLUSION: No acute disease. Joao Stoddard MD Aorta w/Runoff CTA 04/17/16 0000 Signed Impressions: Service Date/Time: Sunday, April 17, 2016 17:47 - CONCLUSION: In the left leg of concern, inflow is satisfactory. Superficial femoral artery is totally occluded. The popliteal reconstitutes however it is severely diseased throughout. Tibial vessels are patent, anterior tibial dominant. David Lazcano MD Objective Remarks CONST: Adult male in NAD DERM: Warm and dry HEENT: PERRL. MMM. CV: RRR. No murmurs. RESP: End expiratory transmitted upper airway sounds. Faint end expiratory wheezing. Occasional wet cough. GI: Abd NTND. +BS MSK: Amputation of LLE below the knee. Bandage c/d/i NEUROL: Grossly motor and sensory intact, excep LLE as above PSYCH: Appropriate affect. Good insight. Procedures 04/24/16- LLE bypass, groin reconstruction, amputation 1st/2nd digits L foot. ( Dr Latif, [facility]) 05/01/16- L BKA (Dr. Latif, [facility]) (Ninoska Egan MD R1) Urinary Catheter: No (Ninoska Egan MD R1) Vascular Central Line Catheter: No (Ninoska Egan MD R1) A/P Assessment and Plan 65y male with PAD, DM2, and tobacco abuse hospitalized 04/17/15 for gangrene of L great toe. S/p L groin reconstruction and amputation 1st and 2nd toes (04/24/16) and L BKA ( 05/01/16). Discharge Planning 2-4 days, pending recovery from BKA (05/01) and vascular surgery's recommendations Anticipate discharge to rehab with PT/OT when clinically ready. Case management assisting. SDW: Dr. Kendall [facility] Course: Consulted Strategic Communications Manager, Dietitian, Cardiology, Vascular Surgery (Ninoska Egan MD R1) Attending Attestation Patient seen and examined. Case reviewed and discussed with the resident team. Agree with plan of care as discussed with me and documented in the resident note. (Morales Kendall MD) Problem List: (1) Ischemic foot Status: Resolved Plan: -see plan for BKA (2) PAD (peripheral artery disease) Status: Chronic Plan: Severe -see plan for gangrene (3) Tobacco abuse Status: Chronic Plan: Nicotine patch contraindicated due to PAD --Smoking cessation counseling provided (4) CAD (coronary artery disease) Status: Chronic Plan: Cardiac cath July 2014 showing EF of 25%. Severe coronary disease s/p three bypass grafts. Pt not on home aspirin due to hx melena (05/2015), tolerating well, will d/c w aspirin. -Aspirin 81mg daily, tolerating well, continue at discharge -Continue home metoprolol 50mg BID -Continue home Atorvastatin (5) CHF (congestive heart failure) Status: Chronic Plan: EF 2014 25%. Continue home Lasix 20mg PO daily Continue home spironolactone 25mg PO daily Heart healthy diet (6) Bilateral carotid artery stenosis Status: Chronic Plan: 04/19 CTA Neck significant for carotid stenosis bilaterally, both felt to be hemodynamically significant. Right worse than L, left partially collapsed. Asymptomatic at this time. -Follow up outpatient, as recommended, per vascular surgery. Likely NTD unless becomes symptomatic. (7) COPD (chronic obstructive pulmonary disease) Status: Chronic Plan: Stable. RA on admission, requiring O2 supplementation after surgery -O2 supplementation PRN for to maintain saturations 88%-92%, wean as tolerated -Duoneb Q4H ALYSSA while awake -Albuterol 2puff q6h PRN SOB -Symbicort 2pugg BID ALYSSA -Incentive spirometry (8) Atrial fibrillation Status: Chronic Plan: Hold home Coumadin. -Continue Lovenox 30mg daily SQ (9) DM type 2 (diabetes mellitus, type 2) Status: Chronic Plan: Discontinued LSSI, as blood glucose wnl consistently. -Hold home metformin, discontinue at discharge (10) Alcohol intake above recommended sensible limits Status: Chronic Plan: 3-4 beers/daily, did not go through withdrawal -Counseled drink <2 units alcohol daily (11) Status post amputation of toe of left foot Status: Acute Plan: 04/24/16 (12) Normocytic anemia due to blood loss Status: Acute Plan: Transfused 2 units PRBC 04/26 with Hgb ~7. Responded well, H/H stable after surgery. -Transfuse for Hgb <7 (13) Constipation Status: Resolved Plan: -Continue Surfak HS -Milk of Magnesium daily PRN -Colace BID PRN constipation (14) Nutrition, metabolism, and development symptoms Status: Chronic Plan: Fluids: KVO Electrolytes: Chronic Hyponatremia, stable, slowly improving. Continue to monitor and replete as needed. Nutrition: Heart Healthy Diet DVT PPx: Lovenox 30mg SQ daily GI ppx: Protonix 40mg PO HS (Ninoska Egan MD R1) Problem Qualifiers (1) CAD (coronary artery disease): Qualified Code: I25.810 - Coronary artery disease involving coronary bypass graft of [place] heart without angina pectoris (2) CHF (congestive heart failure): Qualified Code: I50.9 - Congestive heart failure, unspecified congestive heart failure chronicity, unspecified congestive heart failure type (3) COPD (chronic obstructive pulmonary disease): Qualified Code: J43.1 - Panlobular emphysema (4) Atrial fibrillation: Qualified Code: I48.0 - Paroxysmal atrial fibrillation (5) DM type 2 (diabetes mellitus, type 2): Qualified Code: E11.9 - Type 2 diabetes mellitus without complication, without long-term current use of insulin (6) Constipation: Qualified Code: K59.03 - Drug-induced constipation Ninoska Egan MD R1 May 02, 2016 08:11 Morales Kendall MD May 03, 2016 09:07 (5) DM type 2 (diabetes mellitus, type 2): Qualified Code: E11.9 - Type 2 diabetes mellitus without complication, without long-term current use of insulin (6) Constipation: Qualified Code: K59.03 - Drug-induced constipation Ninoska Egan MD R1 May 02, 2016 08:11
[2016-05-02] MEDS: SODIUM CHLORIDE 0.9% FLUSH 5 ML FLUSH IV FLUSH SCH ×2 (09:00→21:00)
[2016-05-02] MEDS ORDERED: ALBUTEROL SULFATE 90 MCG/ACT HFA 8 GM INHALER INH PRN (09:00)
[2016-05-02] MEDS: GABAPENTIN 400 MG CAP PO SCH ×3 (09:13→18:17)
[2016-05-02] MEDS: ASPIRIN EC 81 MG TABEC PO SCH (09:13)
[2016-05-02] MEDS: METOPROLOL TARTRATE 50 MG TAB PO SCH ×2 (09:13→21:08)
[2016-05-02] MEDS: ENOXAPARIN SODIUM 30 MG/0.3 ML SYRINGE SQ SCH (09:13)
[2016-05-02] MEDS: SPIRONOLACTONE 25 MG TAB PO SCH (09:13)
[2016-05-02] MEDS: FUROSEMIDE 20 MG TAB PO SCH (09:13)
[2016-05-02] MEDS: BUDESONIDE-FORMOTEROL 160/4.5 MCG INHALER INH SCH ×2 (09:13→21:08)
[2016-05-02] MEDS: LACTIC ACID (AMMONIUM LACTATE) 12% LOTION 225 GM BTL TOPICAL SCH ×2 (09:14→21:09)
[2016-05-02] MEDS: ATORVASTATIN 40 MG TAB PO SCH (21:08)
[2016-05-02] MEDS: PANTOPRAZOLE SOD 40 MG DELAYED RELEASE TAB PO SCH (21:08)
[2016-05-02] MEDS: DOCUSATE CALCIUM 240 MG CAP PO SCH (22:58)
[2016-05-03] VITALS (28 sets, daily range): BP systolic 115–158; BP diastolic 69–79; PULSE 72–103; RESP 18–20; TEMP 98–99.4; O2SAT 93–98
[2016-05-03] MEDS: MORPHINE SULFATE 30 MG/30 ML PCA IV SCH (03:03)
[2016-05-03] MEDS: PCA - TOTAL MG MORPHINE DELIVERED PER SHIFT SCH (06:00)
[2016-05-03 07:21] LABS: HEMATOCRIT 33.2 % (39.0-51.0); MEAN CELL VOLUME 91.3 FL (80.0-100.0); MEAN CORPUSCULAR HEMOGLOBIN 30.5 PG (27.0-34.0); MEAN CORPUSCULAR HGB CONC 33.4 % (32.0-36.0); PLATELET COUNT 336 TH/MM3 (150-450); RED BLOOD COUNT 3.63 MIL/MM3 (4.50-5.90); RED CELL DISTRIBUTION WIDTH 17.7 % (11.6-17.2); REVIEW FLAG FINAL; WHITE BLOOD COUNT 12.5 TH/MM3 (4.0-11.0)
[2016-05-03 07:24] LABS: APTT (PATIENT) 26.4 SEC (24.3-30.1)
[2016-05-03 07:37] LABS: BICARBONATE 30.4 MEQ/L (21.0-32.0); POTASSIUM 4.2 MEQ/L (3.5-5.1)
[2016-05-03] MEDS: RESP: ALBUTEROL 2.5 MG/IPRATROPIUM 0.5 MG NEB (SCH) INH (07:56)
[2016-05-03] MEDS: FUROSEMIDE 20 MG TAB PO SCH (08:35)
[2016-05-03] MEDS: ENOXAPARIN SODIUM 30 MG/0.3 ML SYRINGE SQ SCH (08:35)
[2016-05-03] MEDS: GABAPENTIN 400 MG CAP PO SCH ×3 (08:35→17:15)
[2016-05-03] MEDS: SPIRONOLACTONE 25 MG TAB PO SCH (08:35)
[2016-05-03] MEDS: METOPROLOL TARTRATE 50 MG TAB PO SCH ×2 (08:35→21:30)
[2016-05-03] MEDS: LACTIC ACID (AMMONIUM LACTATE) 12% LOTION 225 GM BTL TOPICAL SCH ×2 (08:36→21:30)
[2016-05-03] MEDS: BUDESONIDE-FORMOTEROL 160/4.5 MCG INHALER INH SCH ×2 (08:36→21:30)
[2016-05-03] MEDS: SODIUM CHLORIDE 0.9% FLUSH 5 ML FLUSH IV FLUSH SCH ×2 (08:36→21:31)
--- NOTE | 2016-05-03 08:53 | HHI.FPPN ---
Subjective Remarks Overnight, DEBI. AFVSS. Breathing well on room air. Eating, voiding, stooling, w/o difficulty. 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 Bandage L BKA c/d/i. Denies SIMONS/blurry vision, CP/palpitations, SOB, abdominal pain. (Ninoska Egan MD R1) Objective Vitals Vital Signs Date Time Temp Pulse Resp B/P Pulse Ox O2 Delivery O2 Flow Rate FiO2 05/03/16 06:00 72 05/03/16 06:00 20 05/03/16 06:00 18 05/03/16 05:00 78 05/03/16 04:00 84 05/03/16 03:08 18 05/03/16 03:03 18 05/03/16 03:00 98.0 83 18 139/78 93 05/03/16 03:00 93 Room Air 05/03/16 03:00 84 05/03/16 02:00 73 05/03/16 01:00 78 05/03/16 00:00 80 05/02/16 23:00 96 Room Air 05/02/16 23:00 98.3 79 18 124/69 96 05/02/16 23:00 81 05/02/16 22:00 87 05/02/16 22:00 20 05/02/16 22:00 18 05/02/16 21:00 92 05/02/16 20:28 21 05/02/16 20:00 87 05/02/16 19:00 88 05/02/16 19:00 95 Nasal Cannula 2.00 05/02/16 19:00 99.1 99 18 125/70 95 05/02/16 18:00 92 05/02/16 17:00 88 05/02/16 16:45 20 05/02/16 16:00 87 05/02/16 15:00 95 Room Air 05/02/16 15:00 98.0 78 19 149/69 96 05/02/16 15:00 79 05/02/16 14:00 82 05/02/16 14:00 20 05/02/16 13:07 147/76 05/02/16 13:00 91 05/02/16 12:00 75 05/02/16 11:00 74 05/02/16 11:00 96 Nasal Cannula 2.00 05/02/16 11:00 98.8 80 160/77 97 05/02/16 10:00 81 05/02/16 09:00 87 I/O 05/02/16 05/02/16 05/02/16 05/03/16 05/03/16 05/03/16 07:00 15:00 23:00 07:00 15:00 23:00 Intake Total 800 ml 1648 ml 859 ml Output Total 1900 ml 2200 ml 2900 ml Balance -1100 ml -552 ml -2041 ml Intake Oral 800 ml 800 ml 480 ml IV Total 848 ml 379 ml Output Urine Total 1900 ml 2200 ml 2900 ml (Ninoska Egan MD R1) Result Diagram: 05/03/16 0648 05/03/16 0648 Imaging Last Impressions Neck CTA 04/19/16 0000 Signed Impressions: Service Date/Time: April 22:04 - CONCLUSION: Carotid stenosis bilaterally both felt to be hemodynamically significant, right appears worse than the left however the left carotid appears partially collapsed. Semaj Holden MD FACR Lower Extremity Ultrasound 04/18/16 0000 Signed Impressions: Service Date/Time: Monday, April 18, 2016 11:11 - CONCLUSION: No evidence of deep venous thrombosis. Saúl Hackett MD Chest X-Ray 04/17/16 1804 Signed Impressions: Service Date/Time: Sunday, April 17, 2016 18:20 - CONCLUSION: No acute disease. Joao Stoddard MD Aorta w/Runoff CTA 04/17/16 0000 Signed Impressions: Service Date/Time: Sunday, April 17, 2016 17:47 - CONCLUSION: In the left leg of concern, inflow is satisfactory. Superficial femoral artery is totally occluded. The popliteal reconstitutes however it is severely diseased throughout. Tibial vessels are patent, anterior tibial dominant. David Lazcano MD Objective Remarks CONST: Adult male in NAD. Smiles, pleasant demeanor. DERM: Warm and dry HEENT: PERRL. MMM. CV: RRR. No murmurs. RESP: Course expiratory sounds/transmissited upper respiratory sounds. No wheezing. Harsh wet cough prompted by deep inspiration GI: Abd NTND. +BS MSK: Left BKA. Bandage c/d/i. Flexes at L hip with some pain/uses arms to lever thigh up towards chest.Knee w dereased ROM, but can extend/flex. NEUROL: Grossly motor and sensory intact, excep LLE as above PSYCH: Appropriate affect. Good insight. Procedures 04/24/16- LLE bypass, groin reconstruction, amputation 1st/2nd digits L foot. ( Dr Latif, vascular surgery) 05/01/16- L BKA (Dr. Latif, vascular surgery) (Ninoska Egan MD R1) A/P Assessment and Plan 65y male with PAD, DM2, and tobacco abuse hospitalized 04/17/15 for gangrene of L great toe. S/p L groin reconstruction and amputation 1st and 2nd toes (04/24/16) and L BKA ( 05/01/16). Discharge Planning Tomorrow 05/05/16, pending recovery from BKA (05/01) and vascular surgery's recommendations Anticipate discharge to rehab with PT/OT when clinically ready. Case management assisting. SDW: Dr. Blackburn, Dr. Angulo (Ninoska Egan MD R1) Attending Attestation Patient seen and examined. Case reviewed and discussed with the resident team. Agree with plan of care as discussed with me and documented in the resident note. (Arvind Blackburn MD) Problem List: (1) Ischemic foot Status: Resolved Plan: Admitted with dry gangrene of 1st and 2nd L toes secondary to severe PAD and ongoing tobacco abuse. 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 CTA runoff: with severe occlusions (Inflow satisfactory, but supf femoral artery totally concluded, severely diseased popliteal, tibial vessels patent). Angiogram LLE (04/19): patent ABF limb and profunda, occluded L SFA & popliteal artery, occluded L peroneal and PT, patent but diseased AT, need groin reconstruction and fem-AT (2) Status post below knee amputation of left lower extremity Status: Chronic Plan: 05/01/[address] Latif -see plan for ischemic foot (3) PAD (peripheral artery disease) Status: Chronic Plan: Severe -encouraged smoking cessation, regular exercise as tolerated, and healthy diet and weight (4) Tobacco abuse Status: Chronic Plan: Nicotine patch contraindicated due to PAD --Smoking cessation counseling provided, pt has not had cigarette for 2 weeks while inpatient (5) CAD (coronary artery disease) Status: Chronic Plan: Cardiac cath July 2014 showing EF of 25%. Severe coronary disease s/p three bypass grafts. Pt not on home aspirin due to hx melena (05/2015), however tolerating well while inpatient -Aspirin 81mg daily, tolerating well, continue at discharge -Continue home metoprolol 50mg BID -Continue home Atorvastatin (6) CHF (congestive heart failure) Status: Chronic Plan: EF 2014 25%. -Continue home Lasix 20mg PO daily -Continue home spironolactone 25mg PO daily -Heart healthy diet (7) Bilateral carotid artery stenosis Status: Chronic Plan: 04/19 Carotid neck u/s: hemodynamically significant carotid stenosis b/l, right more than L, with left partially collapsed. Asymptomatic at this time. -Follow up per vascular surgery recommendations as outpatient (8) COPD (chronic obstructive pulmonary disease) Status: Chronic Plan: Stable. RA on admission, requiring O2 supplementation after surgery, now back to room air. -Symbicort 2 puff BID ALYSSA -Duoneb q4h PRN -Incentive spirometry (9) Atrial fibrillation Status: Chronic Plan: Hold home Coumadin. -Continue Lovenox 30mg daily SQ (10) DM type 2 (diabetes mellitus, type 2) Status: Chronic Plan: Discontinued LSSI, as blood glucose wnl consistently. -Hold home metformin, discontinue at discharge (11) Alcohol intake above recommended sensible limits Status: Chronic Plan: 3-4 beers/daily, did not go through withdrawal -Counseled drink <2 units alcohol daily (12) Constipation Status: Resolved Plan: -Continue Surfak HS -Milk of Magnesium daily PRN -Colace BID PRN constipation (13) Normocytic anemia due to blood loss Status: Resolved Plan: Transfused 2 units PRBC 04/26 with Hgb ~7. Responded well, H/H stable after surgery. -Transfuse for Hgb <7 (14) Nutrition, metabolism, and development symptoms Status: Chronic Plan: Fluids: KVO Electrolytes: Chronic Hyponatremia, stable, slowly improving. Continue to monitor and replete as needed. Nutrition: Heart Healthy Diet DVT PPx: Lovenox 30mg SQ daily GI ppx: Protonix 40mg PO HS, started after surgery, discontinue at discharge (Ninoska Egan MD R1) Problem Qualifiers (1) CAD (coronary artery disease): Qualified Code: I25.810 - Coronary artery disease involving coronary bypass graft of [place] heart without angina pectoris (2) CHF (congestive heart failure): Qualified Code: I50.9 - Congestive heart failure, unspecified congestive heart failure chronicity, unspecified congestive heart failure type (3) COPD (chronic obstructive pulmonary disease): Qualified Code: J43.1 - Panlobular emphysema (4) Atrial fibrillation: Qualified Code: I48.0 - Paroxysmal atrial fibrillation (5) DM type 2 (diabetes mellitus, type 2): Qualified Code: E11.9 - Type 2 diabetes mellitus without complication, without long-term current use of insulin (6) Constipation: Qualified Code: K59.03 - Drug-induced constipation Ninoska Egan MD R1 May 03, 2016 08:53 Arvind Blackburn MD May 04, 2016 11:20
[2016-05-03] MEDS: ASPIRIN EC 81 MG TABEC PO SCH (09:33)
--- NOTE | 2016-05-03 09:33 | PD.VS.PN ---
Subjective POD #: 2 Procedure(s): L BKA Subjective/Hospital Course Looks good, panda diet, pain controlled Objective Vitals/I&O Date Time Temp Pulse Resp B/P Pulse Ox O2 Delivery O2 Flow Rate FiO2 05/03/16 06:00 72 05/03/16 06:00 20 05/03/16 06:00 18 05/03/16 05:00 78 05/03/16 04:00 84 05/03/16 03:08 18 05/03/16 03:03 18 05/03/16 03:00 98.0 83 18 139/78 93 05/03/16 03:00 93 Room Air 05/03/16 03:00 84 05/03/16 02:00 73 05/03/16 01:00 78 05/03/16 00:00 80 05/02/16 23:00 96 Room Air 05/02/16 23:00 98.3 79 18 124/69 96 05/02/16 23:00 81 05/02/16 22:00 87 05/02/16 22:00 20 05/02/16 22:00 18 05/02/16 21:00 92 05/02/16 20:28 21 05/02/16 20:00 87 05/02/16 19:00 88 05/02/16 19:00 95 Nasal Cannula 2.00 05/02/16 19:00 99.1 99 18 125/70 95 05/02/16 18:00 92 05/02/16 17:00 88 05/02/16 16:45 20 05/02/16 16:00 87 05/02/16 15:00 95 Room Air 05/02/16 15:00 98.0 78 19 149/69 96 05/02/16 15:00 79 05/02/16 14:00 82 05/02/16 14:00 20 05/02/16 13:07 147/76 05/02/16 13:00 91 05/02/16 12:00 75 05/02/16 11:00 74 05/02/16 11:00 96 Nasal Cannula 2.00 05/02/16 11:00 98.8 80 160/77 97 05/02/16 10:00 81 05/03/16 05/03/16 05/03/16 07:00 15:00 23:00 Intake Total 859 ml Output Total 2900 ml Balance -2041 ml Exam: good ability to extend L knee fully JOSEFINA wrap in place Incisions: c/d/i L groin and lateral thigh Laboratory Laboratory Tests Test 05/03/16 06:48 White Blood Count 12.5 Red Blood Count 3.63 Hemoglobin 11.1 Hematocrit 33.2 Mean Corpuscular Volume 91.3 Mean Corpuscular Hemoglobin 30.5 Mean Corpuscular Hemoglobin 33.4 Concent Red Cell Distribution Width 17.7 Platelet Count 336 Mean Platelet Volume 8.4 Activated Partial 26.4 Thromboplast Time Sodium Level 129 Potassium Level 4.2 Chloride Level 92 Carbon Dioxide Level 30.4 Anion Gap 7 Blood Urea Nitrogen 10 Creatinine 0.56 Estimat Glomerular Filtration 147 Rate Random Glucose 159 Calcium Level 8.9 Assessment and Plan Assessment: (1) Cellulitis of both lower extremities Status: Chronic (2) PAD (peripheral artery disease) Status: Chronic Plan Doing well, pain controlled after BKA Plan on taking dressing down on Saturday (POD#3). Needs PT - can be OOB and WBAT on R LE Discharge Planning Likely ready for d/c to rehab by Sat. Pt expressed interest in local rehab (e.g., [facility]). Saúl Latif MD May 03, 2016 09:33
[2016-05-03] MEDS ORDERED: RESP: ALBUTEROL 2.5 MG/IPRATROPIUM 0.5 MG NEB (PRN) NEB (10:45)
[2016-05-03] MEDS: ACETAMINOPHEN/HYDROcodone 325 MG/10 MG TAB PO SCH ×2 (13:53→21:31)
[2016-05-03] MEDS ORDERED: MORPHINE SULFATE 4 MG/ML INJ IV PUSH PRN (14:30)
[2016-05-03] MEDS ORDERED: MORPHINE SULFATE ORAL SOLN 10 MG/0.5 ML SYRINGE PO PRN (15:15)
[2016-05-03] MEDS ORDERED: fentaNYL 25 MCG/HR PATCH TD SCH (16:00)
[2016-05-03] MEDS: ATORVASTATIN 40 MG TAB PO SCH (21:30)
[2016-05-03] MEDS: DOCUSATE CALCIUM 240 MG CAP PO SCH (21:31)
[2016-05-03] MEDS: PANTOPRAZOLE SOD 40 MG DELAYED RELEASE TAB PO SCH (21:31)
[2016-05-04] VITALS (27 sets, daily range): BP systolic 130–175; BP diastolic 70–91; PULSE 71–109; RESP 18–20; TEMP 98.3–99.2; O2SAT 94–98
[2016-05-04] MEDS: ACETAMINOPHEN/HYDROcodone 325 MG/10 MG TAB PO SCH ×4 (05:30→23:57)
[2016-05-04 05:53] LABS: HEMATOCRIT 33.5 % (39.0-51.0); MEAN CELL VOLUME 89.8 FL (80.0-100.0); MEAN CORPUSCULAR HEMOGLOBIN 30.6 PG (27.0-34.0); MEAN CORPUSCULAR HGB CONC 34.1 % (32.0-36.0); PLATELET COUNT 328 TH/MM3 (150-450); RED BLOOD COUNT 3.74 MIL/MM3 (4.50-5.90); RED CELL DISTRIBUTION WIDTH 17.7 % (11.6-17.2); REVIEW FLAG FINAL; WHITE BLOOD COUNT 13.6 TH/MM3 (4.0-11.0)
[2016-05-04 06:05] LABS: APTT (PATIENT) 26.9 SEC (24.3-30.1)
[2016-05-04] MEDS: SPIRONOLACTONE 25 MG TAB PO SCH (09:11)
[2016-05-04] MEDS: METOPROLOL TARTRATE 50 MG TAB PO SCH ×2 (09:11→20:16)
[2016-05-04] MEDS: GABAPENTIN 400 MG CAP PO SCH ×3 (09:11→16:52)
[2016-05-04] MEDS: FUROSEMIDE 20 MG TAB PO SCH (09:11)
[2016-05-04] MEDS: ACETAMINOPHEN/HYDROcodone 325 MG/5 MG TAB PO PRN ×2 (09:13→20:17)
[2016-05-04] MEDS: ENOXAPARIN SODIUM 30 MG/0.3 ML SYRINGE SQ SCH (09:13)
[2016-05-04] MEDS: BUDESONIDE-FORMOTEROL 160/4.5 MCG INHALER INH SCH ×2 (09:13→20:16)
[2016-05-04] MEDS: LACTIC ACID (AMMONIUM LACTATE) 12% LOTION 225 GM BTL TOPICAL SCH ×2 (09:13→20:16)
[2016-05-04] MEDS: SODIUM CHLORIDE 0.9% FLUSH 5 ML FLUSH IV FLUSH SCH ×2 (09:14→20:17)
[2016-05-04] MEDS: ASPIRIN EC 81 MG TABEC PO SCH (09:14)
[2016-05-04] MEDS ORDERED: POLYETHYLENE GLYCOL 17 GM PKG PO SCH (12:00)
--- NOTE | 2016-05-04 12:15 | HHI.FPPN ---
Subjective Remarks Overnight, no acute events. AFVSS. Hypertensive 160/80. Breathing well on room air. Pain is worse today after transition from IV to PO meds. Has sentinel patch on LLE above bandage on BKA, c/d/i. Denies fevers/chills, SOB/CP, or RLE pain. Eating, voiding, stooling without difficulty. Per patient, was told vascular surgery will be by later to look at BKA and recommend d/c to [place] today vs tomorrow (Ninoska Egan MD R1) Objective Vitals Vital Signs Date Time Temp Pulse Resp B/P Pulse Ox O2 Delivery O2 Flow Rate FiO2 05/04/16 10:13 18 05/04/16 06:00 75 05/04/16 05:00 80 05/04/16 04:00 71 05/04/16 03:30 99.2 72 18 157/79 96 05/04/16 03:30 96 Room Air 05/04/16 03:00 73 05/04/16 02:00 75 05/04/16 01:00 80 05/04/16 00:00 83 05/03/16 23:30 98 Room Air 05/03/16 23:30 99.4 90 18 158/69 98 05/03/16 23:00 80 05/03/16 22:00 85 05/03/16 21:00 103 05/03/16 20:49 98 21 05/03/16 20:00 98.4 90 20 135/78 97 05/03/16 20:00 97 Room Air 05/03/16 20:00 88 05/03/16 19:00 79 05/03/16 17:00 79 05/03/16 16:10 76 05/03/16 16:00 98.0 87 18 156/76 94 05/03/16 15:00 93 Room Air 05/03/16 15:00 83 05/03/16 14:00 82 05/03/16 13:00 75 I/O 05/03/16 05/03/16 05/03/16 05/04/16 05/04/16 05/04/16 07:00 15:00 23:00 07:00 15:00 23:00 Intake Total 859 ml 750 ml 480 ml Output Total 2900 ml 700 ml 1300 ml Balance -2041 ml 50 ml -820 ml Intake Oral 480 ml 600 ml 480 ml IV Total 379 ml 150 ml Output Urine Total 2900 ml 700 ml 1300 ml # Bowel Movements 1 1 (Ninoska Egan MD R1) Result Diagram: 05/04/16 0503 05/03/16 0648 Imaging Last Impressions Neck CTA 04/19/16 0000 Signed Impressions: Service Date/Time: April 22:04 - CONCLUSION: Carotid stenosis bilaterally both felt to be hemodynamically significant, right appears worse than the left however the left carotid appears partially collapsed. Semaj Holden MD FACR Lower Extremity Ultrasound 04/18/16 0000 Signed Impressions: Service Date/Time: Monday, April 18, 2016 11:11 - CONCLUSION: No evidence of deep venous thrombosis. Saúl Hackett MD Chest X-Ray 04/17/16 1804 Signed Impressions: Service Date/Time: Sunday, April 17, 2016 18:20 - CONCLUSION: No acute disease. Joao Stoddard MD Aorta w/Runoff CTA 04/17/16 0000 Signed Impressions: Service Date/Time: Sunday, April 17, 2016 17:47 - CONCLUSION: In the left leg of concern, inflow is satisfactory. Superficial femoral artery is totally occluded. The popliteal reconstitutes however it is severely diseased throughout. Tibial vessels are patent, anterior tibial dominant. David Lazcano MD Objective Remarks CONST: Adult male in [facility]. DERM: Warm and dry HEENT: PERRL. MMM. CV: RRR. No murmurs. RESP: Course expiratory sounds/transmitted upper respiratory sounds. No wheezing. Harsh wet cough, improved, prompted by deep inspiration GI: Abd NTND. +BS MSK: Left BKA. Bandage c/d/i. Flexes at L hip with moderate discomfort. Knee w decreased ROM, but can extend/flex. NEUROL: Grossly motor and sensory intact, excep LLE as above PSYCH: Appropriate affect. Good insight. Procedures 04/24/16- LLE bypass, groin reconstruction, amputation 1st/2nd digits L foot. ( Dr Latif, vascular surgery) 05/01/16- L BKA (Dr. Latif, vascular surgery) (Ninoska Egan MD R1) Urinary Catheter: No (Ninoska Egan MD R1) Vascular Central Line Catheter: No (Ninoska Egan MD R1) A/P Assessment and Plan 65y male with PAD, DM2, and tobacco abuse hospitalized 04/17/15 for gangrene of L great toe. S/p L groin reconstruction and amputation 1st and 2nd toes (04/24/16) and L BKA ( 05/01/16). Discharge Planning Today 05/04/16, pending recovery from BKA (05/01) and vascular surgery's recommendations Anticipate discharge to [facility] inpatient rehab with PT/OT when clinically ready. Case management assisting. SDW: Dr Salcedo DW: Dr. Blackburn (Ninoska Egan MD R1) Attending Attestation Patient seen and examined. Case reviewed and discussed with the resident team. Agree with plan of care as discussed with me and documented in the resident note. (Arvind Blackburn MD) Problem List: (1) Ischemic foot Status: Resolved Plan: Admitted with dry gangrene of 1st and 2nd L toes secondary to severe PAD and ongoing tobacco abuse. Required LLE bypass/amputation toes 1-2 04/24/16 and L BKA 05/01/16 Will attempt to transition to PO meds in anticipation of d/c Plan: -AFVSS, but WBC elevated, continue to monitor -Vascular Surgery consulted -Likely discharge to rehab (patient requests [facility]) Thursday 05/04 or Sat 05/05 -Pain management -Fentanyl patch 25 mcg, change every third day -[place] 10/325 1 tab q6h ALYSSA -[place] 5/325 q4h PRN pain 6-10 -Roxicodone q4h PRN breakthrough- has not required- discontinue at discharge -Continue Gabapentin 800mg TID -Continue daily PT, discharge with boot Imaging Neck CTA (04/19): hemodynamically significant carotid stenosis bilaterally, right appears worse than left, however the left carotid appears partially collapsed. CTA runoff: with severe occlusions (Inflow satisfactory, but supf femoral artery totally concluded, severely diseased popliteal, tibial vessels patent). Angiogram LLE (04/19): patent ABF limb and profunda, occluded L SFA & popliteal artery, occluded L peroneal and PT, patent but diseased AT, need groin reconstruction and fem-AT (2) Status post below knee amputation of left lower extremity Status: Chronic Plan: 05/01/[address] Latif -see plan for ischemic foot (3) PAD (peripheral artery disease) Status: Chronic Plan: Severe -encouraged smoking cessation, regular exercise as tolerated, and healthy diet and weight (4) Tobacco abuse Status: Chronic Plan: Nicotine patch contraindicated due to PAD --Smoking cessation counseling provided, pt has not had cigarette for 2 weeks while inpatient (5) CAD (coronary artery disease) Status: Chronic Plan: Cardiac cath July 2014 showing EF of 25%. Severe coronary disease s/p three bypass grafts. Pt not on home aspirin due to hx melena (05/2015), however tolerating well while inpatient -Aspirin 81mg daily, tolerating well, continue at discharge -Continue home metoprolol 50mg BID -Continue home Atorvastatin (6) CHF (congestive heart failure) Status: Chronic Plan: EF 2014 25%. -Continue home Lasix 20mg PO daily -Continue home spironolactone 25mg PO daily -Heart healthy diet (7) Bilateral carotid artery stenosis Status: Chronic Plan: 04/19 Carotid neck u/s: hemodynamically significant carotid stenosis b/l, right more than L, with left partially collapsed. Asymptomatic at this time. -Follow up per vascular surgery recommendations as outpatient (8) COPD (chronic obstructive pulmonary disease) Status: Chronic Plan: Stable. RA on admission, requiring O2 supplementation after surgery, now back to room air. -Symbicort 2 puff BID ALYSSA -Duoneb q4h PRN -Incentive spirometry (9) Atrial fibrillation Status: Chronic Plan: Hold home Coumadin. -Continue Lovenox 30mg daily SQ (10) DM type 2 (diabetes mellitus, type 2) Status: Chronic Plan: Discontinued LSSI, as blood glucose wnl consistently. -Hold home metformin, discontinue at discharge (11) Alcohol intake above recommended sensible limits Status: Chronic Plan: 3-4 beers/daily, did not go through withdrawal -Counseled drink <2 units alcohol daily (12) Constipation Status: Resolved Plan: -Continue Surfak HS -Milk of Magnesium daily PRN -Colace BID PRN constipation (13) Normocytic anemia due to blood loss Status: Resolved Plan: Transfused 2 units PRBC 04/26 with Hgb ~7. Responded well, H/H stable after surgery. -Transfuse for Hgb <7 (14) Nutrition, metabolism, and development symptoms Status: Chronic Plan: Fluids: KVO Electrolytes: Chronic Hyponatremia, stable, slowly improving. Continue to monitor and replete as needed. Nutrition: Heart Healthy Diet DVT PPx: Lovenox 30mg SQ daily GI ppx: Protonix 40mg PO HS, started after surgery, discontinue at discharge (Ninoska Egan MD R1) Problem Qualifiers (1) CAD (coronary artery disease): Qualified Code: I25.810 - Coronary artery disease involving coronary bypass graft of [place] heart without angina pectoris (2) CHF (congestive heart failure): Qualified Code: I50.9 - Congestive heart failure, unspecified congestive heart failure chronicity, unspecified congestive heart failure type (3) COPD (chronic obstructive pulmonary disease): Qualified Code: J43.1 - Panlobular emphysema (4) Atrial fibrillation: Qualified Code: I48.0 - Paroxysmal atrial fibrillation (5) DM type 2 (diabetes mellitus, type 2): Qualified Code: E11.9 - Type 2 diabetes mellitus without complication, without long-term current use of insulin (6) Constipation: Qualified Code: K59.03 - Drug-induced constipation Ninoska Egan MD R1 May 04, 2016 12:15 Arvind Blackburn MD May 04, 2016 16:28
--- NOTE | 2016-05-04 14:20 | PD.VS.PN ---
Subjective Subjective/Hospital Course Pt appears in good spirits stated he is ready to go to rehab Pt did c/o pain to stump area Removed dressing and assessed Left BKA surgical site pt tolerated without difficulty (Diana Olivera) Objective Vitals/I&O Date Time Temp Pulse Resp B/P Pulse Ox O2 Delivery O2 Flow Rate FiO2 05/04/16 12:50 98.4 78 20 134/74 95 05/04/16 10:13 18 05/04/16 08:30 98 Room Air 05/04/16 08:00 98.6 109 18 157/74 98 05/04/16 06:00 75 05/04/16 05:00 80 05/04/16 04:00 71 05/04/16 03:30 99.2 72 18 157/79 96 05/04/16 03:30 96 Room Air 05/04/16 03:00 73 05/04/16 02:00 75 05/04/16 01:00 80 05/04/16 00:00 83 05/03/16 23:30 98 Room Air 05/03/16 23:30 99.4 90 18 158/69 98 05/03/16 23:00 80 05/03/16 22:00 85 05/03/16 21:00 103 05/03/16 20:49 98 21 05/03/16 20:00 98.4 90 20 135/78 97 05/03/16 20:00 97 Room Air 05/03/16 20:00 88 05/03/16 19:00 79 05/03/16 17:00 79 05/03/16 16:10 76 05/03/16 16:00 98.0 87 18 156/76 94 05/03/16 15:00 93 Room Air 05/03/16 15:00 83 05/04/16 05/04/16 05/04/16 07:00 15:00 23:00 Intake Total 480 ml Output Total 1300 ml Balance -820 ml Physical Exam GENERAL: A&OX3, GCS15, pt appears well with no discomfort sitting up in the chair with BLE elevated. Dressing Dry and Intact SKIN: Warm and dry. Left BKA surgical incision assessed, NO erythema, swelling, or drainage noted sutures remain intact. Left groin incision intact no swelling drainage or pain noted NECK: Supple, trachea midline. No JVD or lymphadenopathy. CARDIOVASCULAR: Regular rate and rhythm RESPIRATORY: Breath sounds equal bilaterally. GASTROINTESTINAL: Abdomen soft, non-tender, nondistended. MUSCULOSKELETAL: No cyanosis, or edema. Right LE DP/PT heard via doppler with triphasic signals Left LE warm motor intact (Diana Olivera) Laboratory Laboratory Tests Test 05/04/16 05:03 White Blood Count 13.6 Red Blood Count 3.74 Hemoglobin 11.4 Hematocrit 33.5 Mean Corpuscular Volume 89.8 Mean Corpuscular Hemoglobin 30.6 Mean Corpuscular Hemoglobin 34.1 Concent Red Cell Distribution Width 17.7 Platelet Count 328 Mean Platelet Volume 8.5 Activated Partial 26.9 Thromboplast Time (Diana Olivera) Assessment and Plan Assessment: (1) Cellulitis of both lower extremities Status: Chronic (2) PAD (peripheral artery disease) Status: Chronic Plan Doing well, pain controlled after BKA Dressing removed today post- op Left BKA Ordered BKA stocking with protector Ok to continue patient care at [facility] Discharge Planning Pt is ready for d/c to rehab (Diana Olivera) Plan I agree with above assessment and plan By Diana SWEENEY Left BKA stump looks clean and intact. Wound protector/stocking ordered. Right foot with multiphasic signals. Ok for DC to rehab. Please call if concerns/questions while at [facility]. Ayden De Dios DO, ADALB[facility] (Ayden De Dios DO) Diana Olivera May 04, 2016 14:20 Ayden De Dios DO May 04, 2016 16:35
[2016-05-04] MEDS ORDERED: ASPI81TA11 PO (15:03)
[2016-05-04] MEDS ORDERED: NEUR400C PO (15:03)
[2016-05-04] MEDS ORDERED: HYDR-3516 PO (15:03)
[2016-05-04] MEDS ORDERED: FENT25T TD (15:03)
[2016-05-04] MEDS ORDERED: SYMB160A INH (15:03)
[2016-05-04] MEDS ORDERED: HYDR-3583 PO (15:03)
--- NOTE | 2016-05-04 15:06 | HHI.DCPOC ---
Discharge Care Plan Diagnosis: (1) Lower limb ischemia (2) PAD (peripheral artery disease) (3) Status post amputation of toe of left foot (4) Status post below knee amputation of left lower extremity (5) Tobacco abuse (6) COPD (chronic obstructive pulmonary disease) (7) CAD (coronary artery disease) (8) DM type 2 (diabetes mellitus, type 2) (9) Chronic hyponatremia (10) Bilateral carotid artery stenosis (11) CHF (congestive heart failure) (12) Alcohol intake above recommended sensible limits Goals to Promote Your Health * To prevent worsening of your condition and complications * To maintain your health at the optimal level Directions to Meet Your Goals Take your medications as prescribed Follow your dietary instruction Follow activity as directed Keep your appointments as scheduled Take your immunizations and boosters as scheduled If your symptoms worsen call your PCP, if no PCP go to Urgent Care Center or Emergency Room Smoking is Dangerous to Your Health. Avoid second hand smoke Call the 24-hour hour crisis hotline for domestic abuse at Ninoska Egan MD R1 May 04, 2016 15:06
[2016-05-04 18:58] LABS: HEMATOCRIT 35.3 % (39.0-51.0); MEAN CELL VOLUME 90.4 FL (80.0-100.0); MEAN CORPUSCULAR HGB CONC 33.2 % (32.0-36.0); PLATELET COUNT 338 TH/MM3 (150-450); RED CELL DISTRIBUTION WIDTH 17.7 % (11.6-17.2); REVIEW FLAG FINAL; WHITE BLOOD COUNT 13.4 TH/MM3 (4.0-11.0)
[2016-05-04] MEDS: ATORVASTATIN 40 MG TAB PO SCH (20:15)
[2016-05-04] MEDS: PANTOPRAZOLE SOD 40 MG DELAYED RELEASE TAB PO SCH (20:16)
[2016-05-04] MEDS: DOCUSATE CALCIUM 240 MG CAP PO SCH (20:17)
[2016-05-05] VITALS (20 sets, daily range): BP systolic 121–155; BP diastolic 63–83; PULSE 71–90; RESP 18–22; TEMP 97.7–98.7; O2SAT 95–97
[2016-05-05] MEDS: ACETAMINOPHEN/HYDROcodone 325 MG/5 MG TAB PO PRN ×2 (04:37→21:35)
[2016-05-05] MEDS: ACETAMINOPHEN/HYDROcodone 325 MG/10 MG TAB PO SCH ×3 (06:18→18:09)
[2016-05-05 08:02] LABS: HEMATOCRIT 35.5 % (39.0-51.0); MEAN CELL VOLUME 90.5 FL (80.0-100.0); MEAN CORPUSCULAR HEMOGLOBIN 30.7 PG (27.0-34.0); PLATELET COUNT 346 TH/MM3 (150-450); RED BLOOD COUNT 3.92 MIL/MM3 (4.50-5.90); RED CELL DISTRIBUTION WIDTH 17.5 % (11.6-17.2); REVIEW FLAG FINAL; WHITE BLOOD COUNT 12.9 TH/MM3 (4.0-11.0)
[2016-05-05] MEDS ORDERED: LACT12LO4 TOPICAL (08:02)
[2016-05-05] MEDS ORDERED: PERI8.6T PO (08:02)
[2016-05-05] MEDS ORDERED: ENOX80P SQ (08:02)
[2016-05-05 08:13] LABS: APTT (PATIENT) 27.4 SEC (24.3-30.1)
[2016-05-05 08:29] LABS: PROTHROMBIN TIME - PATIENT 11.4 SEC (9.8-11.6)
[2016-05-05] MEDS: SODIUM CHLORIDE 0.9% FLUSH 5 ML FLUSH IV FLUSH SCH ×2 (09:00→21:35)
[2016-05-05] MEDS: ASPIRIN EC 81 MG TABEC PO SCH (10:34)
[2016-05-05] MEDS: ENOXAPARIN SODIUM 80 MG/0.8 ML SYRINGE SQ SCH ×2 (10:34→21:34)
[2016-05-05] MEDS: SPIRONOLACTONE 25 MG TAB PO SCH (10:35)
[2016-05-05] MEDS: GABAPENTIN 400 MG CAP PO SCH ×3 (10:35→18:08)
[2016-05-05] MEDS: METOPROLOL TARTRATE 50 MG TAB PO SCH ×2 (10:35→21:35)
[2016-05-05] MEDS: FUROSEMIDE 20 MG TAB PO SCH (10:35)
[2016-05-05] MEDS: LACTIC ACID (AMMONIUM LACTATE) 12% LOTION 225 GM BTL TOPICAL SCH ×2 (10:39→21:36)
[2016-05-05] MEDS: BUDESONIDE-FORMOTEROL 160/4.5 MCG INHALER INH SCH ×2 (10:40→21:36)
--- NOTE | 2016-05-05 12:26 | HHI.FPPN ---
Subjective Remarks No acute issues overnight. Vitals are stable, patient remains afebrile. He denies any chest pain, shortness of breath, fever, chills, nausea or vomiting. He is ready to go to rehabilitation today. (Freda Rodriguez MD R2) Objective Vitals Vital Signs Date Time Temp Pulse Resp B/P Pulse Ox O2 Delivery O2 Flow Rate FiO2 05/05/16 08:00 86 20 128/77 97 05/05/16 07:56 96 21 05/05/16 06:00 77 05/05/16 05:00 79 05/05/16 04:00 98.4 81 18 126/83 95 05/05/16 04:00 95 Room Air 05/05/16 04:00 81 05/05/16 03:00 79 05/05/16 02:00 77 05/05/16 01:00 79 05/05/16 00:00 95 Room Air 05/05/16 00:00 97.9 81 18 135/74 95 05/05/16 00:00 81 05/04/16 23:00 73 05/04/16 22:00 72 05/04/16 21:00 72 05/04/16 20:39 94 21 05/04/16 20:00 97 Room Air 05/04/16 20:00 98.5 88 18 157/80 97 05/04/16 20:00 85 05/04/16 19:00 76 05/04/16 17:00 83 05/04/16 16:38 86 05/04/16 16:00 98.3 81 18 130/70 96 05/04/16 15:00 80 05/04/16 15:00 9 05/04/16 14:00 78 05/04/16 13:00 81 05/04/16 12:50 98.4 78 20 134/74 95 I/O 05/04/16 05/04/16 05/04/16 05/05/16 05/05/16 05/05/16 07:00 15:00 23:00 07:00 15:00 23:00 Intake Total 480 ml 600 ml 480 ml Output Total 1300 ml 800 ml 1900 ml Balance -820 ml -200 ml -1420 ml Intake Oral 480 ml 600 ml 480 ml Output Urine Total 1300 ml 800 ml 1900 ml # Bowel Movements 1 2 0 (Freda Rodriguez MD R2) Result Diagram: 05/05/16 0740 05/03/16 0648 Imaging Last Impressions Neck CTA 04/19/16 0000 Signed Impressions: Service Date/Time: April 22:04 - CONCLUSION: Carotid stenosis bilaterally both felt to be hemodynamically significant, right appears worse than the left however the left carotid appears partially collapsed. Semaj Holden MD FACR Lower Extremity Ultrasound 04/18/16 0000 Signed Impressions: Service Date/Time: Monday, April 18, 2016 11:11 - CONCLUSION: No evidence of deep venous thrombosis. Saúl Hackett MD Chest X-Ray 04/17/16 1804 Signed Impressions: Service Date/Time: Sunday, April 17, 2016 18:20 - CONCLUSION: No acute disease. Joao Stoddard MD Aorta w/Runoff CTA 04/17/16 0000 Signed Impressions: Service Date/Time: Sunday, April 17, 2016 17:47 - CONCLUSION: In the left leg of concern, inflow is satisfactory. Superficial femoral artery is totally occluded. The popliteal reconstitutes however it is severely diseased throughout. Tibial vessels are patent, anterior tibial dominant. David Lazcano MD Objective Remarks GENERAL: Well-nourished, well-developed patient in no acute distress. SKIN: Warm and dry. No rashes or lesions present. EYES: No scleral icterus. No conjunctival injection or drainage. Pupils equal, round, reactive to light and accommodation. Extraocular movements intact. THROAT: Moist mucous membranes. No erythema or exudate in oropharynx. NECK: Supple, trachea midline. No lymphadenopathy. CARDIOVASCULAR: Regular rate and rhythm without murmurs, gallops, or rubs. Strong radial and pedal pulses. CHEST: Symmetric chest expansion with respiration. RESPIRATORY: Breath sounds clear to auscultation bilaterally. No accessory muscle use. No wheezes, rhonchi or rales. GASTROINTESTINAL: Abdomen soft, non-tender, nondistended. No masses or hernias. No hepatosplenomegaly. Bowel sounds present. MUSCULOSKELETAL: No cyanosis or edema. No nail changes. Left BKA wrapped in bandage, clean, dry and intact. NEURO: Cranial nerves II through XII grossly intact. Good muscle tone. PSYCH: Normal mood and affect. Good eye contact. Good insight and judgment. Normal speech. Procedures 04/24/16- LLE bypass, groin reconstruction, amputation 1st/2nd digits L foot. ( Dr Latif, vascular surgery) 05/01/16- L BKA (Dr. Latif, vascular surgery) (Freda Rodriguez MD R2) A/P Assessment and Plan 65yo male with a PMH significant for PAD, DM2, and tobacco abuse admitted for gangrene of L great toe. S/p L groin reconstruction and amputation 1st and 2nd toes (04/24/16) and L BKA ( 05/01/16). Discharge Planning Anticipate discharge to [facility] inpatient rehab today. Case management assisting. joyce Blackburn (Freda Rodriguez MD R2) Attending Attestation Case reviewed and discussed with the resident team. Agree with plan of care as discussed with me and documented in the resident note. (Arvind Blackburn MD) Problem List: (1) Ischemic foot Status: Resolved Plan: Admitted with dry gangrene of 1st and 2nd L toes secondary to severe PAD and ongoing tobacco abuse. s/p LLE bypass/amputation toes 1-2 on 04/24/16 and L BKA 05/01/16 Plan: -Vascular Surgery consulted- patient clear for discharge -Pain management -Fentanyl patch 25 mcg, change every third day -[place] 10/325 1 tab q6h ALYSSA -[place] 5/325 q4h PRN pain 6-10 -Roxicodone q4h PRN breakthrough -Continue Gabapentin 800mg TID -Continue daily PT, discharge with boot Imaging Neck CTA (04/19): hemodynamically significant carotid stenosis bilaterally, right appears worse than left, however the left carotid appears partially collapsed. CTA runoff: with severe occlusions (Inflow satisfactory, but supf femoral artery totally concluded, severely diseased popliteal, tibial vessels patent). Angiogram LLE (04/19): patent ABF limb and profunda, occluded L SFA & popliteal artery, occluded L peroneal and PT, patent but diseased AT, need groin reconstruction and fem-AT (2) Status post below knee amputation of left lower extremity Status: Chronic Plan: 05/01/[address] Latif (3) PAD (peripheral artery disease) Status: Chronic Plan: Severe -encouraged smoking cessation, regular exercise as tolerated, and healthy diet and weight (4) Tobacco abuse Status: Chronic Plan: Nicotine patch contraindicated due to PAD --Smoking cessation counseling provided, pt has not had cigarette for 2 weeks while inpatient (5) CAD (coronary artery disease) Status: Chronic Plan: Cardiac cath July 2014 showing EF of 25%. Severe coronary disease s/p three bypass grafts. Pt not on home aspirin due to hx melena (05/2015), however tolerating well while inpatient -Aspirin 81mg daily, tolerating well, continue at discharge -Continue home metoprolol 50mg BID -Continue home Atorvastatin (6) CHF (congestive heart failure) Status: Chronic Plan: EF 2014 25%. -Continue home Lasix 20mg PO daily -Continue home spironolactone 25mg PO daily -Heart healthy diet (7) Bilateral carotid artery stenosis Status: Chronic Plan: 04/19 Carotid neck u/s: hemodynamically significant carotid stenosis b/l, right more than L, with left partially collapsed. Asymptomatic at this time. -Follow up per vascular surgery recommendations as outpatient (8) COPD (chronic obstructive pulmonary disease) Status: Chronic Plan: Stable. -Symbicort 2 puff BID ALYSSA -Duoneb q4h PRN -Incentive spirometry (9) Atrial fibrillation Status: Chronic Plan: Restart Home dose of Coumadin 3mg PO daily Therapeutic Lovenox at 80mg SQ Q12H to bridge until Coumadin is therapeutic INR currently 1.0 Repeat INR in 2-3 days (10) Nutrition, metabolism, and development symptoms Status: Chronic Plan: Fluids: None Electrolytes: Chronic Hyponatremia, stable. Continue to monitor and replete as needed. Nutrition: Heart Healthy Diet DVT PPx: Lovenox 80mg SQ Q12H, SCD's (Freda Rodriguez MD R2) Problem Qualifiers (1) CAD (coronary artery disease): Qualified Code: I25.810 - Coronary artery disease involving coronary bypass graft of [place] heart without angina pectoris (2) CHF (congestive heart failure): Qualified Code: I50.9 - Congestive heart failure, unspecified congestive heart failure chronicity, unspecified congestive heart failure type (3) COPD (chronic obstructive pulmonary disease): Qualified Code: J43.1 - Panlobular emphysema (4) Atrial fibrillation: Qualified Code: I48.0 - Paroxysmal atrial fibrillation Freda Rodriguez MD R2 May 05, 2016 12:26 Arvind Blackburn MD May 06, 2016 13:13
[2016-05-05] MEDS ORDERED: WARFARIN SOD 3 MG TAB PO SCH (16:00)
[2016-05-05] MEDS: ATORVASTATIN 40 MG TAB PO SCH (21:35)
[2016-05-05] MEDS: PANTOPRAZOLE SOD 40 MG DELAYED RELEASE TAB PO SCH (21:35)
[2016-05-05] MEDS: DOCUSATE CALCIUM 240 MG CAP PO SCH (21:35)
--- NOTE | 2016-05-05 23:20 | MP ---
cc: SACHI LATIF MD DATE OF SURGERY 05/01/16 PREOPERATIVE DIAGNOSIS Non-reconstructable left peripheral arterial occlusive disease tissue loss. POSTOPERATIVE DIAGNOSIS Non-reconstructable left peripheral arterial occlusive disease tissue loss. OPERATION Left below-knee amputation SURGEON Phil Latif MD ANESTHESIA General INDICATIONS Mr. Salcedo is a 65 year old gentleman who has a left lower extremity bypass. The bypass is patent, but he has progressive forefoot ischemia and the foot is now non-salvageable. He was taken to the operating room for below-knee amputation. PROCEDURE IN DETAIL Informed consent was obtained. The patient was taken to the operating room and placed supine on the operating room table. An appropriate time out was taken to ensure the patient's identity and operative site. Everyone in the room agreed to time and procedure. One gram of vancomycin was initiated prior to the skin incision. Vancomycin was chosen because of the patient's ____ length of stay exceeding 48 hours. The left leg was prepped and draped. An incision was made a hands breath below the tibial tuberosity on the anterior portion of the tibia, carried down to the subcutaneous tissue with electrocautery. A long posterior flap was made with a 10 blade and the muscles were divided with electrocautery. The tibia was divided with an oscillating saw and a __ was divided at this level and the posterior muscles were divided and the specimen was passed off the table. Hemostasis was achieved. The fibula was then transected 1 cm to the tibia and the anterior border of the tibia was beveled with the oscillating saw. The wound was made hemostatic and the fascia was reapproximated with interrupted 2-0 Polysorb and the skin was closed with zan. Sponge and needle counts were correct at the end of the case. I was present and scrubbed for the entire procedure. MD SHELLY Paul/ /12:54 PM /11:01 PM
[2016-05-06] VITALS (9 sets, daily range): BP systolic 124–158; BP diastolic 69–80; PULSE 73–84; RESP 18–20; TEMP 97.6–98.1; O2SAT 96–97
[2016-05-06] MEDS: ACETAMINOPHEN/HYDROcodone 325 MG/10 MG TAB PO SCH ×2 (00:26→05:44)
[2016-05-06] MEDS: ACETAMINOPHEN/HYDROcodone 325 MG/5 MG TAB PO PRN (02:55)
[2016-05-06 04:59] LABS: APTT (PATIENT) 31.5 SEC (24.3-30.1)
--- NOTE | 2016-05-06 07:53 | HHI.FPPN ---
Subjective Remarks Overnight, no acute events. AFVSS. Breathing well on room air. Decreased input at 240mL. Otherwise, eating, voiding, stooling without difficulty. Ambulating OOB with assistance. Coumadin with Lovenox bridge started yesterday Pt having continued pain at [facility] site, but well-controlled with pain medicine. Was working with PT all morning, feels tired, but doing well. Home dose metformin was 1000mg BID- glucose has been very well controlled while inpatient- will discharge with metformin 500mg HS. Denies SIMONS/blurred vision, nausea/vomiting, sob, chest pain/palpitations, abdominal pain. (Ninoska Egan MD R1) Objective Vitals Vital Signs Date Time Temp Pulse Resp B/P Pulse Ox O2 Delivery O2 Flow Rate FiO2 05/06/16 06:44 20 05/06/16 06:00 75 05/06/16 05:00 84 05/06/16 04:00 79 05/06/16 03:55 20 05/06/16 03:00 97 Room Air 05/06/16 03:00 79 05/06/16 03:00 98.1 81 20 124/69 96 05/06/16 02:00 83 05/06/16 01:00 73 05/06/16 00:00 83 05/05/16 23:00 86 05/05/16 23:00 97 Room Air 05/05/16 23:00 98.7 87 22 130/63 96 05/05/16 22:00 85 05/05/16 21:00 84 05/05/16 20:00 81 05/05/16 19:00 85 05/05/16 19:00 97.7 85 22 121/73 96 05/05/16 19:00 95 Room Air 05/05/16 16:00 98.4 71 20 155/69 97 05/05/16 14:00 81 05/05/16 13:00 71 05/05/16 12:38 98.7 78 155/79 96 05/05/16 11:00 90 05/05/16 09:00 88 05/05/16 08:00 95 Room Air 05/05/16 08:00 86 20 128/77 97 05/05/16 07:56 96 21 I/O 05/05/16 05/05/16 05/05/16 05/06/16 05/06/16 1/29/17 07:00 15:00 23:00 07:00 15:00 23:00 Intake Total 480 ml 240 ml Output Total 1900 ml 1200 ml 575 ml Balance -1420 ml -1200 ml -335 ml Intake Oral 480 ml 240 ml Output Urine Total 1900 ml 1200 ml 575 ml # Bowel Movements 0 (Ninoska Egan R1) Result Diagram: 05/05/16 0740 05/03/16 0648 Imaging Last Impressions Neck CTA 04/19/16 0000 Signed Impressions: Service Date/Time: April 22:04 - CONCLUSION: Carotid stenosis bilaterally both felt to be hemodynamically significant, right appears worse than the left however the left carotid appears partially collapsed. Semaj Holden MD FACR Lower Extremity Ultrasound 04/18/16 0000 Signed Impressions: Service Date/Time: Monday, April 18, 2016 11:11 - CONCLUSION: No evidence of deep venous thrombosis. Saúl Hackett MD Chest X-Ray 04/17/16 1804 Signed Impressions: Service Date/Time: Sunday, April 17, 2016 18:20 - CONCLUSION: No acute disease. Joao Stoddard MD Aorta w/Runoff CTA 04/17/16 0000 Signed Impressions: Service Date/Time: Sunday, April 17, 2016 17:47 - CONCLUSION: In the left leg of concern, inflow is satisfactory. Superficial femoral artery is totally occluded. The popliteal reconstitutes however it is severely diseased throughout. Tibial vessels are patent, anterior tibial dominant. David Lazcano MD Objective Remarks CONST: Adult male in [facility]. DERM: Warm and dry HEENT: PERRL. MMM. CV: RRR. No murmurs. RESP: Course inspiratory and expiratory transmitted upper respiratory sounds. No wheezing. No cough today GI: Abd non-tender, non-distended. +BS MSK: Left BKA. Bandage c/d/i. Flexes at L hip with moderate discomfort. ROM at knee intact. Bulging 1cm circular protrusion of L lateral thigh, presumed hematoma. NEUROL: Grossly motor and sensory intact, except LLE as above PSYCH: Appropriate affect. Good insight. Procedures 04/24/16- LLE bypass, groin reconstruction, amputation 1st/2nd digits L foot. ( Dr Latif, vascular surgery) 05/01/16- L BKA (Dr. Latif, vascular surgery) (Ninoska Egan MD R1) Urinary Catheter: No (Ninoska Egan MD R1) Vascular Central Line Catheter: No (Ninoska Egan MD R1) A/P Assessment and Plan 65yo male with a PMH significant for PAD, DM2, and tobacco abuse admitted for gangrene of L great toe. S/p L groin reconstruction and amputation 1st and 2nd toes (04/24/16) and L BKA ( 05/01/16). Discharge Planning Anticipate discharge to [facility] inpatient rehab today. Case management assisting. SDW: Dr. Blackburn (Ninoska Egan MD R1) Attending Attestation Patient seen and examined. Case reviewed and discussed with the resident team. Agree with plan of care as discussed with me and documented in the resident note. (Arvind Blackburn MD) Problem List: (1) Ischemic foot Status: Resolved Plan: Admitted with dry gangrene of 1st and 2nd L toes secondary to severe PAD and ongoing tobacco abuse. s/p LLE bypass/amputation toes 1-2 on 04/24/16 and L BKA 05/01/16 Plan: -Vascular Surgery consulted- patient clear for discharge -Pain management -Fentanyl patch 25 mcg, change every third day (05/03, 05/06)- will change today prior to discharge to [place] -Change Corona 10/325 1 tab q6h from ALYSSA to PRN -Discontinue Corona 5/325 PRN -Continue Roxicodone q4h PRN breakthrough -Continue Gabapentin 800mg TID -Apply Lac-Hydrin lotion to wound LLE -Continue bowel regiment- Surfak 240mg HS ALYSSA + Colase PRN constipation -Continue daily PT, discharge with boot, wound protector/sleeve Imaging Neck CTA (04/19): hemodynamically significant carotid stenosis bilaterally, right appears worse than left, however the left carotid appears partially collapsed. CTA runoff: with severe occlusions (Inflow satisfactory, but supf femoral artery totally concluded, severely diseased popliteal, tibial vessels patent). Angiogram LLE (04/19): patent ABF limb and profunda, occluded L SFA & popliteal artery, occluded L peroneal and PT, patent but diseased AT, need groin reconstruction and fem-AT (2) Status post below knee amputation of left lower extremity Status: Chronic Plan: 05/01/[address] Latif -see plan for ischemic foot (3) PAD (peripheral artery disease) Status: Chronic Plan: Severe -encouraged smoking cessation, regular exercise as tolerated, and healthy diet and weight (4) Tobacco abuse Status: Chronic Plan: Nicotine patch contraindicated due to PAD --Smoking cessation counseling provided, pt has not had cigarette for 3 weeks while inpatient (5) CAD (coronary artery disease) Status: Chronic Plan: Severe coronary disease s/p three bypass grafts. Pt was not on home aspirin due to hx melena (05/2015), however tolerating well while inpatient -Aspirin 81mg daily, tolerating well, continue at discharge -Continue home metoprolol 50mg BID -Continue home Atorvastatin (6) CHF (congestive heart failure) Status: Chronic Plan: July 2014: EF 2015 25%. -Continue home Lasix 20mg PO daily -Continue home spironolactone 25mg PO daily -Heart healthy diet (7) Bilateral carotid artery stenosis Status: Chronic Plan: 04/19 Carotid neck u/s: hemodynamically significant carotid stenosis b/l, right more than L, with left partially collapsed. Asymptomatic at this time. -Follow up per vascular surgery recommendations as outpatient (8) COPD (chronic obstructive pulmonary disease) Status: Chronic Plan: -Continue Symbicort 2 puff BID ALYSSA -Continue Duoneb q4h PRN -Incentive spirometry (9) Atrial fibrillation Status: Chronic Plan: -Continue home Coumadin 3mg PO daily, re-started 05/05 -INR 1.0 on 05/05. Repeat INR and BMP tomorrow (05/07) -Therapeutic Lovenox at 80mg SQ Q12H to bridge until Coumadin is therapeutic: INR 2-3 (10) DM type 2 (diabetes mellitus, type 2) Status: Chronic Plan: Held home metformin (1000mg BID) on admission. Started, then discontinued, LSSI, as blood glucose wnl consistently. However, blood glucose slowly increasing -Will restart lower dose of metformin at discharge- metformin 500mg HS (11) Nutrition, metabolism, and development symptoms Status: Chronic Plan: Fluids: Per PO Electrolytes: Chronic Hyponatremia, stable. Continue to monitor and replete as needed. Nutrition: Heart Healthy Diet DVT PPx: Lovenox 80mg SQ Q12H, SCD's GI ppx: not indicated OOB with assistance (Ninoska Egan MD R1) Problem Qualifiers (1) CAD (coronary artery disease): Qualified Code: I25.810 - Coronary artery disease involving coronary bypass graft of [place] heart without angina pectoris (2) CHF (congestive heart failure): Qualified Code: I50.9 - Congestive heart failure, unspecified congestive heart failure chronicity, unspecified congestive heart failure type (3) COPD (chronic obstructive pulmonary disease): Qualified Code: J43.1 - Panlobular emphysema (4) Atrial fibrillation: Qualified Code: I48.0 - Paroxysmal atrial fibrillation (5) DM type 2 (diabetes mellitus, type 2): Qualified Code: E11.9 - Type 2 diabetes mellitus without complication, without long-term current use of insulin Ninoska Egan MD R1 May 06, 2016 07:53 Arvind Blackburn MD May 06, 2016 13:15
[2016-05-06] MEDS ORDERED: ACETAMINOPHEN/HYDROcodone 325 MG/10 MG TAB PO PRN (08:15)
[2016-05-06] MEDS: GABAPENTIN 400 MG CAP PO SCH ×2 (08:42→12:45)
[2016-05-06] MEDS: SPIRONOLACTONE 25 MG TAB PO SCH (08:43)
[2016-05-06] MEDS: ASPIRIN EC 81 MG TABEC PO SCH (08:43)
[2016-05-06] MEDS: SODIUM CHLORIDE 0.9% FLUSH 5 ML FLUSH IV FLUSH SCH (08:43)
[2016-05-06] MEDS: FUROSEMIDE 20 MG TAB PO SCH (08:43)
[2016-05-06] MEDS: METOPROLOL TARTRATE 50 MG TAB PO SCH (08:43)
[2016-05-06] MEDS: ENOXAPARIN SODIUM 80 MG/0.8 ML SYRINGE SQ SCH (08:44)
[2016-05-06] MEDS: BUDESONIDE-FORMOTEROL 160/4.5 MCG INHALER INH SCH (08:44)
[2016-05-06] MEDS: LACTIC ACID (AMMONIUM LACTATE) 12% LOTION 225 GM BTL TOPICAL SCH (08:45)
[2016-05-06] MEDS ORDERED: METF500T PO (09:38)
--- NOTE | 2016-05-06 14:48 | HHI.DS ---
Ninoska Egan MD R1 05/06/16 1448: Discharge Summary Admission Date Apr 17, 2016 at 17:06 Discharge Date: May 06, 2016 Admitting Diagnosis necrotic L great toe, PAD (1) Ischemic foot Diagnosis: Principal Plan: Admitted with dry gangrene of 1st and 2nd L toes secondary to severe PAD and ongoing tobacco abuse. s/p LLE bypass/amputation toes 1-2 on 04/24/16 and L BKA 05/01/16 Plan: -Vascular Surgery consulted- patient clear for discharge -Fentanyl patch 25 mcg, change every third day (05/03, 05/06)- will change today prior to discharge to -[place] [address] 1 tab q6h PRN -Continue Gabapentin 800mg TID -Apply Lac-Hydrin lotion to wound LLE -Continue bowel regiment- Surfak 240mg HS ALYSSA + Colase PRN constipation -Continue daily PT, discharge with boot, wound protector/sleeve Imaging Neck CTA (04/19): hemodynamically significant carotid stenosis bilaterally, right appears worse than left, however the left carotid appears partially collapsed. CTA runoff: with severe occlusions (Inflow satisfactory, but supf femoral artery totally concluded, severely diseased popliteal, tibial vessels patent). Angiogram LLE (04/19): patent ABF limb and profunda, occluded L SFA & popliteal artery, occluded L peroneal and PT, patent but diseased AT, need groin reconstruction and fem-AT (2) Status post below knee amputation of left lower extremity Diagnosis: Principal Plan: 05/01/[address] Latif -see plan for ischemic foot (3) PAD (peripheral artery disease) Diagnosis: Principal Plan: Severe -encouraged smoking cessation, regular exercise as tolerated, and healthy diet and weight (4) Tobacco abuse Diagnosis: Principal Plan: Nicotine patch contraindicated due to PAD --Smoking cessation counseling provided, pt has not had cigarette for 3 weeks while inpatient (5) CAD (coronary artery disease) Diagnosis: Secondary Plan: Severe coronary disease s/p three bypass grafts. Pt was not on home aspirin due to hx melena (05/2015), however tolerating well while inpatient -Aspirin 81mg daily, tolerating well, continue at discharge -Continue home metoprolol 50mg BID -Continue home Atorvastatin (6) CHF (congestive heart failure) Diagnosis: Secondary Plan: July 2014: EF 2015 25%. -Continue home Lasix 20mg PO daily -Continue home spironolactone 25mg PO daily -Heart healthy diet (7) Bilateral carotid artery stenosis Diagnosis: Secondary Plan: 04/19 Carotid neck u/s: hemodynamically significant carotid stenosis b/l, right more than L, with left partially collapsed. Asymptomatic at this time. -Follow up per vascular surgery recommendations as outpatient (8) COPD (chronic obstructive pulmonary disease) Diagnosis: Secondary Plan: -Continue Symbicort 2 puff BID ALYSSA -Continue Duoneb q4h PRN -Incentive spirometry (9) Atrial fibrillation Diagnosis: Secondary Plan: -Continue home Coumadin 3mg PO daily, re-started 05/05 -INR 1.0 on 05/05. Repeat INR and BMP tomorrow (05/07) -Therapeutic Lovenox at 80mg SQ Q12H to bridge until Coumadin is therapeutic: INR 2-3 (10) DM type 2 (diabetes mellitus, type 2) Diagnosis: Secondary Plan: Held home metformin (1000mg BID) on admission. Started, then discontinued, LSSI, as blood glucose wnl consistently. However, blood glucose slowly increasing -Will restart lower dose of metformin at discharge- metformin 500mg HS Consultants Vascular Surgery, Cardiology, Diabetic Counselor, Insurance Claims Specialist, Case Management, PT Procedures 04/24/16- LLE bypass, groin reconstruction, amputation 1st/2nd digits L foot. ( Dr Latif, vascular surgery) 05/01/16- L BKA (Dr. Latif, vascular surgery) Brief History 65-year-old male with PAD s/p femoropopliteal bilateral, atrial fibrillation, CAD s/p CABG, and DM type II who presents today with a black toe. Patient states that his left great toe started looking darker about 2 weeks ago. For the past week it turned black. The toe is very painful, and he rates pain 10/ 10. The pain consists of a sharpness that comes and goes and a pain "that is always there" as well. He notes that the toe has started to leak a bloody fluid. He received morphine in the ED which is starting to help his pain. He follows with Dr. Trevino for extensive history of PAD. He denies any fever, chills, nausea, vomiting. He has had diarrhea for the past month that he describes as watery and nonbloody. CBC/BMP: 05/05/16 0740 05/03/16 0648 Significant Findings Laboratory Tests Test 05/04/16 05/04/16 05/05/16 05/06/16 05:03 18:29 07:40 03:40 White Blood Count 13.6 TH/MM3 13.4 TH/MM3 12.9 TH/MM3 (4.0-11.0) (4.0-11.0) (4.0-11.0) Red Blood Count 3.74 MIL/MM3 3.90 MIL/MM3 3.92 MIL/MM3 (4.50-5.90) (4.50-5.90) (4.50-5.90) Hemoglobin 11.4 GM/DL 11.7 GM/DL 12.0 GM/DL (13.0-17.0) (13.0-17.0) (13.0-17.0) Hematocrit 33.5 % 35.3 % 35.5 % (39.0-51.0) (39.0-51.0) (39.0-51.0) Red Cell Distribution Width 17.7 % 17.7 % 17.5 % (11.6-17.2) (11.6-17.2) (11.6-17.2) Activated Partial 31.5 SEC Thromboplast Time (24.3-30.1) Imaging Last Impressions Neck CTA 04/19/16 0000 Signed Impressions: Service Date/Time: April 22:04 - CONCLUSION: Carotid stenosis bilaterally both felt to be hemodynamically significant, right appears worse than the left however the left carotid appears partially collapsed. Semaj Holden MD FACR Lower Extremity Ultrasound 04/18/16 0000 Signed Impressions: Service Date/Time: Monday, April 18, 2016 11:11 - CONCLUSION: No evidence of deep venous thrombosis. Saúl Hackett MD Chest X-Ray 04/17/16 1804 Signed Impressions: Service Date/Time: Sunday, April 17, 2016 18:20 - CONCLUSION: No acute disease. Joao Stoddard MD Aorta w/Runoff CTA 04/17/16 0000 Signed Impressions: Service Date/Time: Sunday, April 17, 2016 17:47 - CONCLUSION: In the left leg of concern, inflow is satisfactory. Superficial femoral artery is totally occluded. The popliteal reconstitutes however it is severely diseased throughout. Tibial vessels are patent, anterior tibial dominant. David Lazcano MD PE at Discharge CONST: Adult male in [facility]. [facility]. DERM: Warm and dry HEENT: PERRL. MMM. CV: RRR. No murmurs. RESP: Course inspiratory and expiratory transmitted upper respiratory sounds. No wheezing. No cough today GI: Abd non-tender, non-distended. +BS MSK: Left BKA. Bandage c/d/i. Flexes at L hip with moderate discomfort. ROM at knee intact. Bulging 1cm circular protrusion of L lateral thigh, presumed hematoma. NEUROL: Grossly motor and sensory intact, except LLE as above PSYCH: Appropriate affect. Good insight. Hospital Course 65 year-old male with a PMHx significant for PAD, DM2, and tobacco abuse admitted 04/17/15-05/06/16 for gangrene of L great toe. CTA runoff and Angiogram LLE showed severe occlusions of arteries, including totally occluded superficial femoral artery totally and severely diseased popliteal artery. To salvage the LLE, patient required L groin reconstruction and Fem-AT bypass with amputation 1st and 2nd toes (04/24/16). Unfortunately, the pathology specimen showed necrosis of tissue beyond borders of the sample, so further amputation was necessary. Pt underwent left BKA (05/01/16) without complication. After pain was controlled and wound site appeared to be healing well, patient was d/c to inpatient rehab at [place]. Smoking cessation counseling was provided. Medication changes and follow up as listed below. Fentanyl patch and [place] was added for pain, Docusate-senna for bowel regiment, Lactic acid creme and boot protection for wound site, and metformin decreased to 500mg 1 tab HS for diabetic control. Pt was discharged on Coumadin, but was not yet therapeutic. He will require Lovenox bridge and BMP, INR testing tomorrow. Recommended follow -up with Vascular Surgery in 2 weeks and PCP in 1 week. Pt Condition on Discharge: Stable Discharge Disposition: Rehab Inpatient Discharge Instructions DIET: Follow Instructions for: Heart Healthy Diet, Diabetic Diet Activities you can perform: See Additionl Instruction Other Activity Instructions: Per PT/Vascular surgery Follow up Referrals: PCP Follow-up - 1 Week Vascular Surgery - 2 Weeks with Saúl Latif MD New Orders: BASIC METABOLIC PROF - Next Day PT/INR - Next Day New Medications: Metformin (Metformin) 500 Mg Tab 500 MG PO HS With a meal Blood Sugar Management #30 Ref 0 TAB Sennosides-Docusate Sodium ([place]-Colace) 8.6-50 Mg Tab 2 TAB PO BID PRN Constipation #60 Ref 0 TAB ([walking boot]) UNITS #[address] (Aspirin EC) 81 Mg Tabdr 81 MG PO DAILY #30 TAB Budesonide-Formoterol Inh (Symbicort Inh) 160-4.5 Mcg/Act Aero 2 PUFF INH BID #1 INHALER Enoxaparin Inj (Lovenox Inj) 80 mg/0.8 ML Syr 80 MG SQ Q12H #60 INJECTION Fentanyl Patch 72 HR (Duragesic Patch 72 HR) 25 Mcg/Hr Patch 1 PATCH TD Q3D #5 Gabapentin (Neurontin) 400 Mg Cap 800 MG PO TID #90 CAP Hydrocodone-Acetaminophen (Hydrocodone-Acetaminophen) 5-325 mg Tab 1 TAB PO Q4H PRN PAIN SCALE 6 TO 10 #30 TAB Hydrocodone-Acetaminophen (Hydrocodone-Acetaminophen) 10-325 mg Tab 1 TAB PO Q6HR #120 TAB Lactic Acid (Ammonium Lactate) (Amlactin) 12 % Lot 1 APPLIC TOPICAL BID #1 BOTTLE Continued Medications: Albuterol 18 GM Inh (Ventolin Hfa 18 GM Inh) 90 Mcg/Act Aer 2 PUFF INH Q4-6H PRN SHORTNESS OF BREATH #1 Ref 0 INHALER Albuterol Neb (Albuterol Neb) 2.5 Mg/0.5 Ml Neb 2.5 MG NEB TID NEB Note: The Albuterol Sulfate Inhalation Solution is concentrated and must be diluted. Read complete instructions carefully before using. PRN SHORTNESS OF BREATH #90 Ref 0 NEBULE Atorvastatin (Atorvastatin) 40 Mg Tab 40 MG PO HS Cholesterol Management #30 Ref 0 TAB Docusate Calcium (Surfak) 240 Mg Cap 240 MG PO DAILY Prevent Constipation #30 Ref 0 CAP Docusate Sodium (Colace) 100 Mg Cap 100 MG PO BID PRN Constipation #60 Ref 0 CAP Furosemide (Furosemide) 20 Mg Tab 20 MG PO DAILY #30 Ref 0 TAB Metoprolol Tartrate (Metoprolol Tartrate) 50 Mg Tab 50 MG PO BID #60 Ref 0 TAB Multiple Vitamins W/ Minerals (Thera M Plus) 1 Tab 1 TAB PO DAILY Nutritional Supplement Ref 0 TAB Spironolactone (Spironolactone) 25 Mg Tab 25 MG PO DAILY #30 Ref 0 TAB Thiamine (Vitamin B-1) 100 Mg Tab 100 MG PO DAILY Nutritional Supplement Ref 0 TAB Warfarin (Warfarin) 3 Mg Tab 3 MG PO DAILY Szymanski 3 MG, M 3 MG, Tu 0 MG, W 3 MG, Th 3 MG, F 3 MG, Sa 3 MG Blood Clot Prevention #30 Ref 3 TAB Discontinued Medications: Betamethasone Dipropionate Topical (Betamethasone Dipropionate Topical) 0.05% Oint 1 APPLIC TOPICAL BID Dermatoses #15 Ref 3 GM Metformin (Metformin) 1,000 Mg Tab 1000 MG PO BIDPC With meals Blood Sugar Management #60 Ref 6 TAB Arvind Blackburn MD 05/07/16 0829: Discharge Summary CBC/BMP: 05/05/16 0740 05/03/16 0648 Discharge Instructions Follow up Referrals: PCP Follow-up - 1 Week Vascular Surgery - 2 Weeks with Saúl Latif MD New Orders: BASIC METABOLIC PROF - Next Day PT/INR - Next Day New Medications: Metformin (Metformin) 500 Mg Tab 500 MG PO HS With a meal Blood Sugar Management #30 Ref 0 TAB Sennosides-Docusate Sodium ([place]-Colace) 8.6-50 Mg Tab 2 TAB PO BID PRN Constipation #60 Ref 0 TAB ([walking boot]) UNITS #[address] (Aspirin EC) 81 Mg Tabdr 81 MG PO DAILY #30 TAB Budesonide-Formoterol Inh (Symbicort Inh) 160-4.5 Mcg/Act Aero 2 PUFF INH BID #1 INHALER Enoxaparin Inj (Lovenox Inj) 80 mg/0.8 ML Syr 80 MG SQ Q12H #60 INJECTION Fentanyl Patch 72 HR (Duragesic Patch 72 HR) 25 Mcg/Hr Patch 1 PATCH TD Q3D #5 Gabapentin (Neurontin) 400 Mg Cap 800 MG PO TID #90 CAP Hydrocodone-Acetaminophen (Hydrocodone-Acetaminophen) 5-325 mg Tab 1 TAB PO Q4H PRN PAIN SCALE 6 TO 10 #30 TAB Hydrocodone-Acetaminophen (Hydrocodone-Acetaminophen) 10-325 mg Tab 1 TAB PO Q6HR #120 TAB Lactic Acid (Ammonium Lactate) (Amlactin) 12 % Lot 1 APPLIC TOPICAL BID #1 BOTTLE Continued Medications: Albuterol 18 GM Inh (Ventolin Hfa 18 GM Inh) 90 Mcg/Act Aer 2 PUFF INH Q4-6H PRN SHORTNESS OF BREATH #1 Ref 0 INHALER Albuterol Neb (Albuterol Neb) 2.5 Mg/0.5 Ml Neb 2.5 MG NEB TID NEB Note: The Albuterol Sulfate Inhalation Solution is concentrated and must be diluted. Read complete instructions carefully before using. PRN SHORTNESS OF BREATH #90 Ref 0 NEBULE Atorvastatin (Atorvastatin) 40 Mg Tab 40 MG PO HS Cholesterol Management #30 Ref 0 TAB Docusate Calcium (Surfak) 240 Mg Cap 240 MG PO DAILY Prevent Constipation #30 Ref 0 CAP Docusate Sodium (Colace) 100 Mg Cap 100 MG PO BID PRN Constipation #60 Ref 0 CAP Furosemide (Furosemide) 20 Mg Tab 20 MG PO DAILY #30 Ref 0 TAB Metoprolol Tartrate (Metoprolol Tartrate) 50 Mg Tab 50 MG PO BID #60 Ref 0 TAB Multiple Vitamins W/ Minerals (Thera M Plus) 1 Tab 1 TAB PO DAILY Nutritional Supplement Ref 0 TAB Spironolactone (Spironolactone) 25 Mg Tab 25 MG PO DAILY #30 Ref 0 TAB Thiamine (Vitamin B-1) 100 Mg Tab 100 MG PO DAILY Nutritional Supplement Ref 0 TAB Warfarin (Warfarin) 3 Mg Tab 3 MG PO DAILY Szymanski 3 MG, M 3 MG, Tu 0 MG, W 3 MG, Th 3 MG, F 3 MG, Sa 3 MG Blood Clot Prevention #30 Ref 3 TAB Discontinued Medications: Betamethasone Dipropionate Topical (Betamethasone Dipropionate Topical) 0.05% Oint 1 APPLIC TOPICAL BID Dermatoses #15 Ref 3 GM Metformin (Metformin) 1,000 Mg Tab 1000 MG PO BIDPC With meals Blood Sugar Management #60 Ref 6 TAB Ninoska Egan MD R1 May 06, 2016 14:48 Arvind Blackburn MD May 07, 2016 08:29
[2016-05-06] MEDS ORDERED: REMOVE OLD PATCH T-DERMAL SCH (16:00)
[2016-05-21] MEDS ORDERED: BEDSIDE COMMODE1 MI1 (12:12)
[2016-05-21] MEDS ORDERED: GETGO ROLLING W1 MI1 (12:12)
[2016-05-23] MEDS ORDERED: COUM5TAB PO ×2 (08:37→10:00)
[2016-05-23] MEDS ORDERED: SYMB160A INH (08:37)
[2016-05-23] MEDS ORDERED: CLOT1CRE6 TOPICAL (08:37)
[2016-05-23] MEDS ORDERED: SPIR25TA PO (08:37)
[2016-05-23] MEDS ORDERED: FURO20TA PO (08:37)
[2016-05-23] MEDS ORDERED: CIPR250T52 PO (08:37)
[2016-05-23] MEDS ORDERED: METO50TA PO (08:37)
[2016-05-23] MEDS ORDERED: ASPI81TA11 PO (08:37)
[2016-05-23] MEDS ORDERED: ATOR40TA16 PO (08:37)
[2016-05-23] MEDS ORDERED: HYDR-3583 PO (08:37)
[2016-05-23] MEDS ORDERED: THERM PO (08:37)
[2016-05-23] MEDS ORDERED: DOCU1CAP39 PO (08:37)
[2016-05-23] MEDS ORDERED: PANT40TA3 PO (08:37)
[2016-05-23] MEDS ORDERED: NEUR400C PO ×2 (08:37→09:54)
[2016-05-23] MEDS ORDERED: IPRASOL INH (08:37)
[2016-05-23] MEDS ORDERED: METF500 PO ×2 (08:37→10:05)
[2016-05-23] MEDS ORDERED: IPRASOL NEB (09:54)
[2016-05-23] MEDS ORDERED: FURO1TAB62 PO (10:05)
[2016-05-23] MEDS ORDERED: COLA100C3 PO (10:05)
[2016-05-23] MEDS ORDERED: PROT40TA PO (10:05)
[2016-05-23] MEDS ORDERED: GABA800T PO (10:05)
[2016-05-23] MEDS ORDERED: HYDR-3366 PO (10:05)
[2016-05-23] MEDS ORDERED: CIPR-9 PO (10:05)
[2016-06-07] MEDS ORDERED: WARF-20 PO (14:35)
[2016-06-07] MEDS ORDERED: VENTAER INH (17:07)
[2016-06-29] MEDS ORDERED: SPIR25TA PO (14:30)
[2016-07-18] MEDS ORDERED: ATOR40TA16 PO (13:11)
[2016-07-18] MEDS ORDERED: WARF-23 PO (13:25)
[2016-07-18] MEDS ORDERED: PROT40TA PO (13:25)
[2016-08-29] MEDS ORDERED: VENTAER INH (16:42)
[2016-08-29] MEDS ORDERED: IPRASOL NEB (16:42)
== END 2016-05-06 13:06 | DRG 240 ==
LOC: NEPB 11:41 → NEDA 17:06 → NEDH 04-18 00:49 → N04B 04-18 18:15 → HCIS 04-24 08:59 → HCPC 04-24 13:49
PROVIDERS: ADMIT Family Medicine; ATTEND Family Medicine
PROC: B41G1ZZ Fluoroscopy of Left Lower Extremity Arteries using Low Osmolar Contrast (ICD-10-PCS; 2016-04-19)
PROC: 041L0KQ Bypass Left Femoral Artery to Lower Extremity Artery with Nonautologous Tissue Substitute, Open Approach (ICD-10-PCS; 2016-04-24)
PROC: 0Y6Q0Z0 Detachment at Left 1st Toe, Complete, Open Approach (ICD-10-PCS; 2016-04-24)
PROC: 0Y6S0Z0 Detachment at Left 2nd Toe, Complete, Open Approach (ICD-10-PCS; 2016-04-24)
PROC: 30233N1 Transfusion of Nonautologous Red Blood Cells into Peripheral Vein, Percutaneous Approach (ICD-10-PCS; 2016-04-26)
PROC: 3E0T3CZ (ICD-10-PCS; 2016-05-01)
PROC: 0Y6J0Z1 Detachment at Left Lower Leg, High, Open Approach (ICD-10-PCS; principal; 2016-05-01 10:18)
DX: I70.262 Atherosclerosis of native arteries of extremities with gangrene, left leg (principal); I70.92 Chronic total occlusion of artery of the extremities; I50.9 Heart failure, unspecified; L03.115 Cellulitis of right lower limb; E87.1 Hypo-osmolality and hyponatremia; L03.116 Cellulitis of left lower limb; I25.10 Atherosclerotic heart disease of native coronary artery without angina pectoris; I10 Essential (primary) hypertension; J44.9 Chronic obstructive pulmonary disease, unspecified; I48.0 Paroxysmal atrial fibrillation; R19.7 Diarrhea, unspecified; F17.210 Nicotine dependence, cigarettes, uncomplicated; E87.5 Hyperkalemia; G47.30 Sleep apnea, unspecified; I65.23 Occlusion and stenosis of bilateral carotid arteries; E78.5 Hyperlipidemia, unspecified; E11.9 Type 2 diabetes mellitus without complications; M19.90 Unspecified osteoarthritis, unspecified site; F10.20 Alcohol dependence, uncomplicated; G62.9 Polyneuropathy, unspecified; D50.0 Iron deficiency anemia secondary to blood loss (chronic); K59.03 Drug induced constipation; Z79.01 Long term (current) use of anticoagulants; Z79.84 Long term (current) use of oral hypoglycemic drugs; Z86.73 Personal history of transient ischemic attack (TIA), and cerebral infarction without residual deficits; Z95.1 Presence of aortocoronary bypass graft; Z95.5 Presence of coronary angioplasty implant and graft; Z85.828 Personal history of other malignant neoplasm of skin; Z87.442 Personal history of urinary calculi
CPT/HCPCS: 36430; 70498; 71020; 75635; 75710; 76937; 80048; 80053; 80076; 82948; 83735; 84132; 84295; 85014; 85018; 85025; 85027; 85610; 85730; 86850; 86900; 86901; 86920; 88305; 88307; 88311; 93005; 93970; 93998; 94150; 94640; 94664; C1757; J0131; J1170; J1200; J1644; J1650; J1815; J1940; J2175; J2250; J2270; J2370; J2405; J2710; J2720; J3010; J3370; J3480; J7030; J7040; J7050; J7120; J7613; P9016; Q9967

== ENCOUNTER 2016-12-21 19:21 | Inpatient (IN) | payer MEDICARE, MEDICAID ==
[~2016-12-21] VITALS: Ht 172.7 cm; Wt 77.4 kg
[2016-12-21] MEDS: SODIUM CHLOR 0.9% 1000 ML INJ 1,000 ML IV SCH (01:40)
[~2016-12-21 19:21] MED LIST changes: -ADVA250A INH; -ALBU.5I NEB; +ASPI81TA11 PO; +BEDSIDE COMMODE1 MI1; -BETA0.054 TOPICAL; +CLOT1CRE6 TOPICAL; +FURO1TAB62 PO; -FURO20TA PO; +GETGO ROLLING W1 MI1; +HYDR-3366 PO; +IPRASOL NEB; -KAOP240C PO; -METF1000 PO; +METF500 PO; -PRED20 PO; +PROT40TA PO; +SYMB160A INH; +WARF-23 PO; -WARF-58 PO; -[UNRECOGNIZED DRUG - SUPPLY]
[2016-12-21 19:43] VITALS: BP 110/57; PULSE 75; RESP 18; TEMP 98.3; O2SAT 98
[2016-12-21] MEDS: RESP: ALBUTEROL 2.5 MG/IPRATROPIUM 0.5 MG NEB (SCH) INH ×2 (20:53→20:54)
[2016-12-21] MEDS ORDERED: SODIUM CHLORIDE 0.9% FLUSH 10 ML FLUSH IVF PRN (21:00)
[2016-12-21 21:16] VITALS: BP 124/61; PULSE 82; RESP 28; O2SAT 97
[2016-12-21 21:22] LABS: BLOOD GAS BASE EXCESS -2.1 mmol/L (-2-2); BLOOD GAS CARBOXYHEMOGLOBIN 4.9 % (0-4); BLOOD GAS HCO3 22 mmol/L (22-26); BLOOD GAS METHEMOGLOBIN 1.3 % (0-2); BLOOD GAS O2 HGB SATURATION 91 % (90-100); BLOOD GAS OXYGEN CONTENT 13.9 Vol % (12.0-20.0); BLOOD GAS PCO2 39 mmHG (38-42); BLOOD GAS PO2 87 mmHG (61-120); BLOOD GAS TOTAL HGB 10.8 G/DL (12.0-16.0); CRITICAL VALUE NO; DRAW SITE RT RADIAL; FIO2 21 %; NUMBER OF ARTERIAL PUNCTURES 1; OXYGEN DEVICE ROOM AIR; STAT YES; TEMP CORR TO 98.6; ULNAR PULSE PRESENT
[2016-12-21 21:35] LABS: INTERNATIONAL NORMALIZED RATIO 3.4 RATIO
[2016-12-21 21:39] LABS: ALT (GPT) 18 U/L (12-78); ANION GAP 8 MEQ/L (5-15); AST (GOT) 24 U/L (15-37); BLOOD UREA NITROGEN 6 MG/DL (7-18); CHLORIDE 91 MEQ/L (98-107); GLOMERULAR FILTRATION RATE 135 ML/MIN (>89); MAGNESIUM 1.5 MG/DL (1.5-2.5); POTASSIUM 4.9 MEQ/L (3.5-5.1); TOTAL BILIRUBIN ADULT 0.2 MG/DL (0.2-1.0)
[2016-12-21 21:40] LABS: ALKALINE PHOSPHATASE 73 U/L (45-117)
[2016-12-21 21:42] LABS: SODIUM (NA) 124 MEQ/L (136-145)
--- NOTE | 2016-12-21 21:43 | RADRPT ---
EXAM DATE/TIME: 12/21/2016 21:04 [place] COMPARISON: No previous studies available for comparison. INDICATIONS : Shortness of breath. MEDICAL HISTORY : Chronic obstructive pulmonary disease. Congestive heart failure. Hypercholesterolemia. Cerebrovas cular accident. Seizures. Coronary artery disease, Anticoagulant therapy. A.FIB. Hypertension. Myocar dial infarction. Diabetes. Skin cancer SURGICAL HISTORY : Cholecystectomy. CABG. Abdominal aortic aneurysm repair. Left below knee amputation, Heart cath ENCOUNTER: Initial ACUITY: 1 day PAIN SCORE: 7/10 LOCATION: Bilateral chest FINDINGS: No infiltrate, effusion or pneumothorax. Hyperexpanded lungs again noted. Normal heart size. Previous median sternotomy and CABG. CONCLUSION: No evidence of acute cardiopulmonary disease. Hyperexpanded but clear lungs. Previous CABG. David Cabezas MD on December 21, 2016 at 21:41 Board Certified Radiologist. This report was verified electronically.
[2016-12-21 21:54] LABS: AUTOMATED NEUTROPHIL # 3.4 TH/MM3 (1.8-7.7); BASOPHIL % 0.6 % (0.0-2.0); EOSINOPHIL # 0.7 TH/MM3 (0-0.4); EOSINOPHIL % 13.5 % (0.0-4.0); HEMATOCRIT 32.3 % (39.0-51.0); HEMO FLAGS DIFF FINAL; LYMPH % 14.5 % (9.0-44.0); LYMPHOCYTE # 0.8 TH/MM3 (1.0-4.8); MEAN CELL VOLUME 97.2 FL (80.0-100.0); MEAN CORPUSCULAR HEMOGLOBIN 33.2 PG (27.0-34.0); MEAN CORPUSCULAR HGB CONC 34.1 % (32.0-36.0); MONO % 10.4 % (0.0-8.0); PLATELET COUNT 208 TH/MM3 (150-450); RED BLOOD COUNT 3.32 MIL/MM3 (4.50-5.90); RED CELL DISTRIBUTION WIDTH 13.8 % (11.6-17.2); WHITE BLOOD COUNT 5.5 TH/MM3 (4.0-11.0)
[2016-12-21] MEDS ORDERED: VANCOMYCIN INJ 1,500 MG in SODIUM CHLORID 0.9% 500 ML INJ 500 ML IV ONE (22:00)
--- NOTE | 2016-12-21 22:31 | PD ---
HPI Chief Complaint: Skin Problem Time Seen by Provider: 20:47 Travel History International Travel<30 days: No Contact w/Intl Traveler<30days: No Traveled to known affect area: No History of Present Illness HPI The patient is a 66-year-old male who complains of a possible infection of his left amputated limb for 3 days. The infection is located on the lateral pole of his incision for the amputation. The patient has a history of COPD and smokes "as much as I can". He denies any fever. He states he has never had osteomyelitis in the past. He states he takes Coumadin because of atrial fibrillation. PFSH Past Medical History Hx Anticoagulant Therapy: Yes Arthritis: Yes Asthma: No Autoimmune Disease: No Anxiety: Yes Depression: Yes Heart Rhythm Problems: Yes Cancer: Yes (skin cancer LEFT WRIST) Cardiac Catheterization: Yes (CAD) Cardiovascular Problems: Yes High Cholesterol: Yes Chemotherapy: No Chest Pain: Yes Congestive Heart Failure: Yes COPD: Yes Cerebrovascular Accident: Yes Diabetes: Yes Diminished Hearing: No Endocrine: Yes Gastrointestinal Disorders: Yes GERD: No Genitourinary: Yes Headaches: No Hiatal Hernia: No Hypertension: Yes Immune Disorder: No Implanted Vascular Access Dvce: No Kidney Stones: Yes (25+ years ago) Musculoskeletal: Yes Neurologic: Yes Psychiatric: Yes Reproductive: No Respiratory: Yes Immunizations Current: Yes Migraines: No Radiation Therapy: No Renal Failure: No Seizures: Yes (as a child) Sickle Cell Disease: No Sleep Apnea: Yes Thyroid Disease: No Ulcer: No PNEUMOCCOCAL Vaccine (Year): 1 Past Surgical History Abdominal Surgery: Yes (aortic aneurysm repair) AICD: No Arteriovenous Shunt: No Cardiac Surgery: Yes (CABG x4 Mar 2014) Coronary Artery Bypass Graft: Yes Ear Surgery: No Endocrine Surgery: No Eye Surgery: No Genitourinary Surgery: No Gynecologic Surgery: No Insulin Pump: No Joint Replacement: No Neurologic Surgery: No Oral Surgery: No Pacemaker: No Thoracic Surgery: Yes Other Surgery: Yes (SKIN CANCER REMOVED) Social History Alcohol Use: Yes (2-6 BEERS DAILY) Tobacco Use: Yes (A LITTLE MORE THAN ONE PPD) Substance Use: No Allergies-Medications (Allergen,Severity, Reaction): Coded Allergies: cefaclor (Unverified Allergy, Intermediate, rash, 12/21/16) Reported Meds & Prescriptions Reported Meds & Active Scripts Active Warfarin 5 Mg Tab 5 Mg PO DAILY Ventolin Hfa 18 GM Inh (Albuterol Sulfate) 90 Mcg/Act Aer 2 Puff INH Q4-6H PRN Duoneb (Ipratropium-Albuterol Neb) 0.5-2.5 Mg/3 Ml Neb 1 Ampule NEB Q8HR NEB PRN Protonix (Pantoprazole Sodium) 40 Mg Tab 40 Mg PO DAILY Atorvastatin (Atorvastatin Calcium) 40 Mg Tab 40 Mg PO HS Spironolactone 25 Mg Tab 25 Mg PO DAILY Buhl (Hydrocodone-Acetaminophen) 10-325 Mg Tab 1-2 Tab PO Q4H PRN Gabapentin 800 Mg Tab 800 Mg PO TID Lasix (Furosemide) 20 Mg Tab 20 Mg PO DAILY Glucophage (Metformin HCl) 500 Mg Tab 500 Mg PO BIDPC With meals Clotrimazole Anti-Fungal Topical (Clotrimazole) 1% Cream 1 Applic TOPICAL Q12HR 10 Days Symbicort Inh (Budesonide/Formoterol Fumarate) 160-4.5 Mcg/Act Aero 2 Puff INH Q12HR Aspirin EC (Aspirin) 81 Mg Tabdr 81 Mg PO DAILY Metoprolol Tartrate 50 Mg Tab 50 Mg PO BID Thera M Plus (Multivitamins/Minerals Therapeutic) 1 Tab 1 Tab PO DAILY Bedside Commode (Device) 1 Mis Mis 1 Ea .ROUTE DIRECTED Walker Rolling/GetGo (Device) 1 Mis Mis 1 Ea .ROUTE DIRECTED Reported Vitamin B-1 (Thiamine HCl) 100 Mg Tab 100 Mg PO DAILY Review of Systems Except as stated in HPI: all other systems reviewed are Neg Physical Exam Narrative GENERAL: The patient is alert, oriented 3 and minimal apparent distress with his amputated limb discomfort. His vital signs are normal. SKIN: Focused skin assessment warm/dry. On the left leg at the lateral pole of the incision is a draining ulcer in this was cultured. There is an area of cellulitis surrounding this ulcer of 3 cm. HEAD: Atraumatic. Normocephalic. EYES: Pupils equal and round. No scleral icterus. No injection or drainage. ENT: No nasal bleeding or discharge. Mucous membranes pink and moist. NECK: Trachea midline. No JVD. CARDIOVASCULAR: Regular rate and rhythm. No murmur appreciated. RESPIRATORY: No accessory muscle use. Clear to auscultation. Breath sounds equal bilaterally. GASTROINTESTINAL: Abdomen soft, non-tender, nondistended. Hepatic and splenic margins not palpable. MUSCULOSKELETAL: No obvious deformities. No clubbing. No cyanosis. No edema. NEUROLOGICAL: Awake and alert. No obvious cranial nerve deficits. Motor grossly within normal limits. Normal speech. PSYCHIATRIC: Appropriate mood and affect; insight and judgment normal. Data Data Last Documented VS Vital Signs Date Time Temp Pulse Resp B/P (MAP) Pulse Ox O2 Delivery O2 Flow Rate FiO2 12/21/16 22:40 80 18 99 Room Air 12/21/16 19:43 98.3 Orders Orders Complete Blood Count With Diff (12/21/16 20:47) Comprehensive Metabolic Panel (12/21/16 20:47) B-Type Natriuretic Peptide (12/21/16 20:47) Magnesium (Mg) (12/21/16 20:47) Troponin I (12/21/16 20:47) Urinalysis - C+S If Indicated (12/21/16 20:47) Iv Access Insert/Monitor (12/21/16 20:47) Electrocardiogram (12/21/16 20:47) Ecg Monitoring (12/21/16 20:47) Oximetry (12/21/16 20:47) Oxygen Administration (12/21/16 20:47) Chest, Pa & Lat (12/21/16 20:47) Sodium Chloride 0.9% Flush (Ns Flush) (12/21/16 21:00) Albuterol-Ipratropium Neb (Duoneb Neb) (12/21/16 21:00) Prothrombin Time / Inr (Pt) (12/21/16 20:51) Arterial Blood Gas (Abg) (12/21/16 21:11) Vancomycin Inj (Vancomycin Inj) (12/21/16 22:00) Wound Culture And Gram Stain (12/21/16 22:23) Femur (Ap & Lat/2vws) (12/21/16 22:36) Knee, Ltd (1 Or 2vws) (12/21/16 23:17) Albuterol-Ipratropium Neb (Duoneb Neb) (12/22/16 00:00) Vancomycin Consult Pharmacy (Vancomycin (12/22/16 00:00) Aztreonam Inj (Azactam Inj) (12/22/16 00:00) Place In Observation (12/21/16 ) Vital Signs (Adult) Q4H (12/21/16 23:48) Activity Oob Ad Wendi (12/21/16 23:48) Diet 1800 Ada Cons Carb (12/22/16 Breakfast) Sodium Chlor 0.9% 1000 Ml Inj (Ns 1000 M (12/21/16 23:48) Sodium Chloride 0.9% Flush (Ns Flush) (12/22/16 00:00) Sodium Chloride 0.9% Flush (Ns Flush) (12/22/16 09:00) Ondansetron Inj (Zofran Inj) (12/22/16 00:00) Comprehensive Metabolic Panel (12/22/16 06:00) Complete Blood Count With Diff (12/22/16 06:00) Prothrombin Time / Inr (Pt) (12/22/16 06:00) Pharmacologic Contraindication (12/21/16 23:48) Acetaminophen (Tylenol) (12/22/16 00:00) Acetamin-Hydrocod 325-5 Mg (Buhl 5-325 (12/22/16 00:00) Morphine Inj (Morphine Inj) (12/22/16 00:00) Docusate Sodium-Senna (Shasta-Colace) (12/22/16 09:00) Magnesium Hydroxide Liq (Milk Of Magnesi (12/22/16 00:00) Sennosides (Senokot) (12/22/16 00:00) Bisacodyl Supp (Dulcolax Supp) (12/22/16 00:00) Lactulose Liq (Lactulose Liq) (12/22/16 00:00) Aspirin Ec (Ecotrin Ec) (12/22/16 09:00) Atorvastatin (Lipitor) (12/22/16 21:00) Budeson-Formot 160-4.5 Mg Inh (Symbicort (12/22/16 09:00) Clotrimazole 1% Cream (Lotrimin 1% Cream (12/22/16 09:00) Furosemide (Lasix) (12/22/16 09:00) Gabapentin (Neurontin) (12/22/16 09:00) Metformin (Glucophage) (12/22/16 09:00) Metoprolol Tartrate (Lopressor) (12/22/16 09:00) Multivitamins-Minerals Therap (Theragran (12/22/16 09:00) Pantoprazole (Protonix) (12/22/16 09:00) Spironolactone (Aldactone) (12/22/16 09:00) Thiamine (Vit B1) (Vitamin B1) (12/22/16 09:00) Warfarin (Coumadin) (12/22/16 09:00) Labs Laboratory Tests Test 12/21/16 21:11 12/21/16 21:12 12/21/16 23:56 Blood Gas Puncture Site RT RADIAL Blood Gas Patient Temperature 98.6 Blood Gas HCO3 22 mmol/L Blood Gas Base Excess -2.1 mmol/L Blood Gas Oxygen Saturation 91 % Arterial Blood pH 7.38 Arterial Blood Partial Pressure CO2 39 mmHG Arterial Blood Partial Pressure O2 87 mmHG Arterial Blood Oxygen Content 13.9 Vol % Arterial Blood Carboxyhemoglobin 4.9 % Arterial Blood Methemoglobin 1.3 % Blood Gas Hemoglobin 10.8 G/DL Oxygen Delivery Device ROOM AIR Blood Gas Inspired Oxygen 21 % White Blood Count 5.5 TH/MM3 Red Blood Count 3.32 MIL/MM3 Hemoglobin 11.0 GM/DL Hematocrit 32.3 % Mean Corpuscular Volume 97.2 FL Mean Corpuscular Hemoglobin 33.2 PG Mean Corpuscular Hemoglobin Concent 34.1 % Red Cell Distribution Width 13.8 % Platelet Count 208 TH/MM3 Mean Platelet Volume 7.6 FL Neutrophils (%) (Auto) 61.0 % Lymphocytes (%) (Auto) 14.5 % Monocytes (%) (Auto) 10.4 % Eosinophils (%) (Auto) 13.5 % Basophils (%) (Auto) 0.6 % Neutrophils # (Auto) 3.4 TH/MM3 Lymphocytes # (Auto) 0.8 TH/MM3 Monocytes # (Auto) 0.6 TH/MM3 Eosinophils # (Auto) 0.7 TH/MM3 Basophils # (Auto) 0.0 TH/MM3 CBC Comment DIFF FINAL Differential Comment Prothrombin Time 40.0 SEC Prothromb Time International Ratio 3.4 RATIO Blood Urea Nitrogen 6 MG/DL Creatinine 0.60 MG/DL Random Glucose 90 MG/DL Total Protein 7.0 GM/DL Albumin 3.4 GM/DL Calcium Level 8.4 MG/DL Magnesium Level 1.5 MG/DL Alkaline Phosphatase 73 U/L Aspartate Amino Transf (AST/SGOT) 24 U/L Alanine Aminotransferase (ALT/SGPT) 18 U/L Total Bilirubin 0.2 MG/DL Sodium Level 124 MEQ/L Potassium Level 4.9 MEQ/L Chloride Level 91 MEQ/L Carbon Dioxide Level 25.0 MEQ/L Anion Gap 8 MEQ/L Estimat Glomerular Filtration Rate 135 ML/MIN Troponin I LESS THAN 0.02 NG/ML B-Type Natriuretic Peptide 90 PG/ML MDM Medical Decision Making Medical Screen Exam Complete: Yes Emergency Medical Condition: Yes Medical Record Reviewed: Yes Interpretation(s) The EKG shows sinus rhythm with a rate of 80. There is no acute ST elevation or depression. There is a right bundle branch block present. The arterial blood gases on room air show pH 7.38, CO2 39, PO2 87 with O2 sat 91. The ProTime is 40 and INR is 3.4. The CBC is normal except for hemoglobin of 11.0 and hematocrit of 32.3. The complete metabolic profile shows a sodium of 124 but is otherwise unremarkable. The troponin I is normal. The BNP is 90. Differential Diagnosis Cellulitis, abscess, osteomyelitis, electrolyte disorder, anemia Narrative Course The patient has cellulitis of the left lower leg. X-rays do not show any osteomyelitis at this time. He also has a hyponatremia. Physician Communication Physician Communication I discussed the patient with Dr. Arreguin, the patient will be 23 hour observation to her. Diagnosis Primary Impression: Cellulitis of left lower leg Additional Impression: Hyponatremia Admitting Information Admitting Physician Requests: Observation Vaughn Osborn MD Dec 21, 2016 22:31
[2016-12-21 22:40] VITALS: PULSE 80; RESP 18; O2SAT 99
--- NOTE | 2016-12-21 23:53 | RADRPT ---
EXAM DATE/TIME: 12/21/2016 22:51 [facility] COMPARISON: No previous studies available for comparison. INDICATIONS : Left femur inflammation. MEDICAL HISTORY : Chronic obstructive pulmonary disease. Congestive heart failure. Hypercholesterolemia. Cerebrovas cular accident. Seizures. Coronary artery disease, Anticoagulant therapy. A.FIB. Hypertension. Myocar dial infarction, Diabetes, Skin cancer SURGICAL HISTORY : Abdominal aortic aneurysm repair. Cholecystectomy. CABG. Left below knee amputation, Heart cath ENCOUNTER: Initial ACUITY: 1 day PAIN SCORE: 7/10 LOCATION: Left femur FINDINGS: Two view examination of the left femur demonstrates no evidence of fracture or dislocation. Bony min eralization is normal. There is calcification of the regional vasculature. Surgical clips in the medi al distal thigh may represent prior vein harvesting. CONCLUSION: 1. No acute fracture. 2. Dense atherosclerotic calcification of the regional vasculature. Joel Dhillon MD on December 21, 2016 at 23:48 Board Certified Radiologist. This report was verified electronically.
[2016-12-22] MEDS ORDERED: MAGNESIUM HYDROXIDE SUSP 30 ML CUP PO PRN
[2016-12-22] MEDS ORDERED: BISACODYL 10 MG SUPP RECTAL PRN
[2016-12-22] MEDS ORDERED: LACTULOSE SYRUP 20 GM/30 ML CUP PO PRN
[2016-12-22] MEDS ORDERED: Vancomycin Consult Pharmacy 1 EA OTHER SCH
[2016-12-22] MEDS ORDERED: ACETAMINOPHEN 325 MG TAB PO PRN
[2016-12-22] MEDS ORDERED: ONDANSETRON HCL 4 MG/2 ML VIAL IVP PRN
[2016-12-22] MEDS ORDERED: SENNOSIDES 8.6 MG TAB PO PRN
[2016-12-22] MEDS ORDERED: SODIUM CHLORIDE 0.9% FLUSH 10 ML FLUSH IV FLUSH PRN
[2016-12-22] MEDS ORDERED: MORPHINE SULFATE 4 MG/ML INJ IV PUSH PRN
[2016-12-22 00:03] LABS: BLOOD, URINE MOD (NEG); GLUCOSE,URINE NEG (NEG); KETONE, URINE NEG (NEG); NITRITE,URINE NEG (NEG)
[2016-12-22] MEDS ORDERED: GADODIAMIDE PF 287 MG/ML 20 ML VIAL (for RAD MRI) IVCONTRAST ONE (00:05)
--- NOTE | 2016-12-22 00:06 | RADRPT ---
EXAM DATE/TIME: 12/21/2016 23:32 [facility] COMPARISON: No previous studies available for comparison. INDICATIONS : Left knee inflammation. MEDICAL HISTORY : Chronic obstructive pulmonary disease. Congestive heart failure. Hypercholesterolemia. Cerebrovas cular accident. Seizures, CAD, Anticoagulant therapy. A.FIB. Hypertension. Myocardial infarction, Kayleigh betes, Skin cancer SURGICAL HISTORY : Cholecystectomy. CABG. Abdominal aortic aneurysm repair. Left below knee amputation, Heart cath ENCOUNTER: Initial ACUITY: 1 day PAIN SCORE: 8/10 LOCATION: Left knee FINDINGS: Two view examination of the left knee demonstrates a below knee amputation. Osseous structures are ot herwise intact. Minimal loss of space in the medial tibiofemoral joint compartment. Surgical clips in the medial aspect of the thigh, knee and lower leg suggests prior vein harvesting. Atherosclerotic c alcification of the regional vasculature.. CONCLUSION: 1. Below-knee amputation with no acute fracture. 2. Dense atherosclerotic calcification of the regional vasculature. Joel Dhillon MD on December 22, 2016 at 0:03 Board Certified Radiologist. This report was verified electronically.
[2016-12-22 00:09] LABS: COMMENT (UR) CULT NOT INDICATED; CULTURE IF INDICATED CULT NOT INDICATED; SQUAMOUS EPITHELIAL CELL URINE 0-5 /hpf (0-5); URINE COLOR YELLOW (YELLW/STRAW); WBC, URINE 0-2 /hpf (0-5)
[2016-12-22 00:33] VITALS: BP 111/65; PULSE 81; RESP 20; O2SAT 99
[2016-12-22] MEDS: RESP: ALBUTEROL 2.5 MG/IPRATROPIUM 0.5 MG NEB (PRN) NEB ×2 (00:39→09:31)
[2016-12-22] MEDS: AZTREONAM INJ 1,000 MG in SODIUM CHLORIDE 0.9% INJ 100 ML IV SCH ×2 (01:39→12:31)
[2016-12-22] MEDS: ACETAMINOPHEN/HYDROcodone 325 MG/5 MG TAB PO PRN ×4 (01:40→20:50)
[2016-12-22 02:14] VITALS: BP 152/90; PULSE 88; RESP 20; TEMP 98.9; O2SAT 96
--- NOTE | 2016-12-22 06:01 | EKG ---
Date Performed: 12/21/2016 Time Performed: 20:56:21 PTAGE: 66 years EKG: Baseline artifact present Sinus rhythm RIGHT BUNDLE BRANCH BLOCK ABNORMAL ECG No significant change from prior electrocardiogram. PREVIOUS TRACING : 05/01/2016 07.16 DOCTOR: Nasim Nelson Interpretating Date/Time 12/22/2016 06:00:20
[2016-12-22 07:07] LABS: AUTOMATED NEUTROPHIL # 3.2 TH/MM3 (1.8-7.7); BASOPHIL % 0.6 % (0.0-2.0); EOSINOPHIL # 0.6 TH/MM3 (0-0.4); EOSINOPHIL % 11.5 % (0.0-4.0); HEMATOCRIT 29.6 % (39.0-51.0); HEMO FLAGS DIFF FINAL; LYMPH % 14.1 % (9.0-44.0); LYMPHOCYTE # 0.7 TH/MM3 (1.0-4.8); MEAN CELL VOLUME 95.3 FL (80.0-100.0); MEAN CORPUSCULAR HEMOGLOBIN 32.3 PG (27.0-34.0); MEAN CORPUSCULAR HGB CONC 33.9 % (32.0-36.0); MONO % 8.5 % (0.0-8.0); NEUT % 65.3 % (16.0-70.0); PLATELET COUNT 194 TH/MM3 (150-450); RED BLOOD COUNT 3.11 MIL/MM3 (4.50-5.90); RED CELL DISTRIBUTION WIDTH 13.6 % (11.6-17.2); WHITE BLOOD COUNT 4.9 TH/MM3 (4.0-11.0)
[2016-12-22 07:18] LABS: CHLORIDE 95 MEQ/L (98-107); POTASSIUM 4.9 MEQ/L (3.5-5.1); SODIUM (NA) 127 MEQ/L (136-145)
[2016-12-22 07:19] LABS: INTERNATIONAL NORMALIZED RATIO 3.9 RATIO; PROTHROMBIN TIME - PATIENT 45.5 SEC (9.8-11.6)
[2016-12-22 07:21] LABS: ANION GAP 8 MEQ/L (5-15); BICARBONATE 24.2 MEQ/L (21.0-32.0); BLOOD UREA NITROGEN 7 MG/DL (7-18)
[2016-12-22 07:24] LABS: ALT (GPT) 17 U/L (12-78); AST (GOT) 22 U/L (15-37); GLOMERULAR FILTRATION RATE 156 ML/MIN (>89)
[2016-12-22 07:25] LABS: TOTAL BILIRUBIN ADULT 0.3 MG/DL (0.2-1.0)
[2016-12-22 07:26] LABS: ALKALINE PHOSPHATASE 70 U/L (45-117)
[2016-12-22 08:00] VITALS: BP 125/77; PULSE 91; RESP 20; TEMP 98.5; O2SAT 96
[2016-12-22] MEDS: ASPIRIN EC 81 MG TABEC PO SCH (08:42)
[2016-12-22] MEDS: SPIRONOLACTONE 25 MG TAB PO SCH (08:42)
[2016-12-22] MEDS: metFORMIN HCL 500 MG TAB PO SCH ×2 (08:43→18:00)
[2016-12-22] MEDS: FUROSEMIDE 20 MG TAB PO SCH (08:43)
[2016-12-22] MEDS: GABAPENTIN 400 MG CAP PO SCH ×3 (08:44→18:26)
[2016-12-22] MEDS: DOCUSATE SODIUM 50 MG/SENNA 8.6 MG TAB PO SCH ×2 (08:44→20:50)
[2016-12-22] MEDS: METOPROLOL TARTRATE 50 MG TAB PO SCH ×2 (08:44→20:50)
[2016-12-22] MEDS: MULTIVITAMINS/MINERALS THERAPEUTIC TAB PO SCH (08:45)
[2016-12-22] MEDS: THIAMINE HCL 100 MG TAB PO SCH (08:45)
[2016-12-22] MEDS: PANTOPRAZOLE SOD 40 MG DELAYED RELEASE TAB PO SCH (08:45)
[2016-12-22] MEDS: SODIUM CHLORIDE 0.9% FLUSH 10 ML FLUSH IV FLUSH SCH ×2 (08:46→20:51)
[2016-12-22] MEDS ORDERED: WARFARIN SOD 5 MG TAB PO SCH (09:00)
[2016-12-22] MEDS: VANCOMYCIN INJ 1,800 MG in SODIUM CHLORID 0.9% 500 ML INJ 500 ML IV SCH ×2 (09:08→20:51)
[2016-12-22] MEDS: CLOTRIMAZOLE 1% CREAM 15 GM TOPICAL SCH ×2 (09:09→20:52)
[2016-12-22] MEDS: BUDESONIDE-FORMOTEROL 160/4.5 MCG INHALER INH SCH ×2 (09:09→20:52)
[2016-12-22 12:00] VITALS: BP 118/76; PULSE 78; RESP 20; TEMP 96.9; O2SAT 95
[2016-12-22] MEDS: LEVOFLOXACIN 750 MG PREMIX INJ 150 ML IV SCH (15:02)
[2016-12-22] MEDS: SODIUM CHLOR 0.9% 1000 ML INJ 1,000 ML IV SCH ×2 (15:06→20:42)
[2016-12-22 15:55] VITALS: BP 123/70; PULSE 79; RESP 20; TEMP 98.1; O2SAT 96
[2016-12-22] MEDS: WARFARIN SOD 5 MG TAB PO SCH (16:00)
[2016-12-22] MEDS ORDERED: RESP: ALBUTEROL 2.5 MG/IPRATROPIUM 0.5 MG NEB (PRN) NEB (16:15)
--- NOTE | 2016-12-22 16:18 | HHI.HP ---
[facility] Service [facility] Primary Care Physician Bere Wood MD Admission Diagnosis cellulitis left lower leg, hyponatremia Diagnoses: (1) Stasis ulcer of left lower extremity Diagnosis: Principal (2) Hyponatremia Diagnosis: Principal (3) Chronic obstructive pulmonary disease Diagnosis: Principal Chief Complaint: Leg ulcer with smell Travel History International Travel<30 Days: No Contact w/Intl Traveler <30 Da: No Traveled to Known Affected Are: No History of Present Illness Written by Umair Osborn, acting as scribe for Dr. Willis on 12/22/16 at 16:10. 66 year-old male with rather complex medical history of chronic wound of his left lower extremity, peripheral vascular disease, hypertension, hyperlipidemia, coronary artery disease, chronic affective pulmonary disease, chronic smoker, chronic respiratory failure, atrial fibrillation, diabetes who presented to hospital because of foul smell coming from his left lower extremity stump wound. Patient had a rather extensive hospitalization in April 2016 in which she did undergo left [id number] amputation by Dr. Garcia, the patient was not very giving with information and would not let me know if he ever had follow-up with Dr. Garcia after his surgery and discharge from the hospital. He denies any extensive wound care. Patient states that he has had this chronic wound ever since he had the surgery. In over the last 34 days it is had increased smell and he thinks there has been some exudative material. Patient denies any fever, chills, significant erythema, significant pain. Patient came to emergency department for evaluation. Patient had workup done and did not indicate any signs of sepsis, leukocytosis, significant signs of infection. Imaging study was performed which did not indicate any acute abnormality. Upon evaluating patient patient appears to look very ill, he could not stop coughing, seems to have significant trouble breathing with respiratory insufficiency. He could actually hear his wheezing from standing next to him. Patient does have significant chronic obstructive pulmonary disease, he still continues to smoke. He states he does have a nebulizer at home, however he only uses inhalers. He states that he uses oxygen whenever he needs it, however he has not forthcoming if he has oxygen at home or not. At the present time patient is a significant respiratory issues which requires hospitalization for management. Review of Systems Respiratory: COMPLAINS OF: Cough, Sputum production, Shortness of breath Except as stated in HPI: all other systems reviewed are Neg Past Family Social History Past Medical History Hypertension Hyperlipidemia Cardiomyopathy Paroxysmal atrial fibrillation Peripheral vascular disease History of GI bleed Diabetes Tobacco abuse Past Surgical History Coronary bypass surgery 3 Left [id number] amputation Arterial bifemoral bypass with multiple angioplasties Femorofemoral bypass dieulafoy lesions fulguration Tonsillectomy Cholecystectomy Reported Medications Reported Meds & Active Scripts Active Warfarin 5 Mg Tab 5 Mg PO DAILY Ventolin Hfa 18 GM Inh (Albuterol Sulfate) 90 Mcg/Act Aer 2 Puff INH Q4-6H PRN Duoneb (Ipratropium-Albuterol Neb) 0.5-2.5 Mg/3 Ml Neb 1 Ampule NEB Q8HR NEB PRN Protonix (Pantoprazole Sodium) 40 Mg Tab 40 Mg PO DAILY Atorvastatin (Atorvastatin Calcium) 40 Mg Tab 40 Mg PO HS Spironolactone 25 Mg Tab 25 Mg PO DAILY [place] (Hydrocodone-Acetaminophen) 10-325 Mg Tab 1-2 Tab PO Q4H PRN Gabapentin 800 Mg Tab 800 Mg PO TID Lasix (Furosemide) 20 Mg Tab 20 Mg PO DAILY Glucophage (Metformin HCl) 500 Mg Tab 500 Mg PO BIDPC With meals Clotrimazole Anti-Fungal Topical (Clotrimazole) 1% Cream 1 Applic TOPICAL Q12HR 10 Days Symbicort Inh (Budesonide/Formoterol Fumarate) 160-4.5 Mcg/Act Aero 2 Puff INH Q12HR Aspirin EC (Aspirin) 81 Mg Tabdr 81 Mg PO DAILY Metoprolol Tartrate 50 Mg Tab 50 Mg PO BID Thera M Plus (Multivitamins/Minerals Therapeutic) 1 Tab 1 Tab PO DAILY Bedside Commode (Device) 1 Mis Mis 1 Ea .ROUTE DIRECTED Walker Rolling/GetGo (Device) 1 Mis Mis 1 Ea .ROUTE DIRECTED Reported Vitamin B-1 (Thiamine HCl) 100 Mg Tab 100 Mg PO DAILY Allergies: Coded Allergies: cefaclor (Unverified Allergy, Intermediate, rash, 12/21/16) Family History Reviewed is significant for both mother and father from cancer, patient wasn't very forthcoming which kind of cancer. Social History Patient still smokes over a pack a cigarettes a day for over 50 years, he does drink 3 beers daily. Denies any illicit drugs Physical Exam Vital Signs Vital Signs Date Time Temp Pulse Resp B/P (MAP) Pulse Ox O2 Delivery O2 Flow Rate FiO2 12/22/16 12:00 96.9 78 20 118/76 (90) 95 12/22/16 10:32 16 12/22/16 08:00 98.5 91 20 125/77 (93) 96 12/22/16 05:08 12/22/16 02:14 98.9 88 20 152/90 (110) 96 12/22/16 01:18 12/22/16 00:33 81 20 111/65 (80) 99 Room Air 12/21/16 22:40 80 18 99 Room Air 12/21/16 21:20 28 12/21/16 21:16 82 28 124/61 (82) 97 12/21/16 21:14 90 Room Air 12/21/16 21:14 Room Air 12/21/16 19:43 98.3 75 18 110/57 (74) 98 Physical Exam GENERAL: Well-developed, well-nourished, patient appears to be with significant coughing and respiratory distress. alert and orientated HEENT: Head is normocephalic without any lesions or masses noted. Facial features are symmetric. Eyes: Pupils equal round reactive to light. Extraocular muscles are intact. Conjunctivae were clear. Oropharyngeal: Pharynx without any erythema edema. Tongue is midline without deviation. Buccal mucosa is moist without any masses or lesions NECK: Supple without any masses. Trachea midline no deviation. No JVD, no bruits are appreciated CARDIAC: Regular rhythm, regular rate. S1/S2 are heard. No murmurs gallops or rubs. LUNGS: Patient with significant wheezing and rhonchi noted bilaterally. Or rales. No use of accessory muscles on inspiration or expiration. ABDOMEN: Soft, nontender. Nondistended. Bowel sounds heard in all 4 quadrants. No organomegaly or masses. Negative rebound, negative guarding EXTREMITIES: No edema, pulses are equal bilaterally. No cyanosis or clubbing NEUROLOGY: Mood and affect appear appropriate. Cranial nerves II through XII grossly intact. Muscle strength 5/5 in upper and lower extremities bilaterally. Deep tendon reflexes are 2+ in upper and lower extremities bilaterally. LEFT LOWER EXTREMITY: Patient does have a 1 cm area noted on the medial aspect of his stump. He has clear edges which appeared nice and pink. Mild tenderness noted inferior to the lesion. With hard palpation could express some exudate. Laboratory Laboratory Tests Test 12/21/16 21:11 12/21/16 21:12 12/21/16 23:56 12/22/16 06:42 Blood Gas Puncture Site RT RADIAL Blood Gas Patient Temperature 98.6 Blood Gas HCO3 22 Blood Gas Base Excess -2.1 Blood Gas Oxygen Saturation 91 Arterial Blood pH 7.38 Arterial Blood Partial Pressure CO2 39 Arterial Blood Partial Pressure O2 87 Arterial Blood Oxygen Content 13.9 Arterial Blood Carboxyhemoglobin 4.9 Arterial Blood Methemoglobin 1.3 Blood Gas Hemoglobin 10.8 Oxygen Delivery Device ROOM AIR Blood Gas Inspired Oxygen 21 White Blood Count 5.5 4.9 Red Blood Count 3.32 3.11 Hemoglobin 11.0 10.1 Hematocrit 32.3 29.6 Mean Corpuscular Volume 97.2 95.3 Mean Corpuscular Hemoglobin 33.2 32.3 Mean Corpuscular Hemoglobin Concent 34.1 33.9 Red Cell Distribution Width 13.8 13.6 Platelet Count 208 194 Mean Platelet Volume 7.6 7.5 Neutrophils (%) (Auto) 61.0 65.3 Lymphocytes (%) (Auto) 14.5 14.1 Monocytes (%) (Auto) 10.4 8.5 Eosinophils (%) (Auto) 13.5 11.5 Basophils (%) (Auto) 0.6 0.6 Neutrophils # (Auto) 3.4 3.2 Lymphocytes # (Auto) 0.8 0.7 Monocytes # (Auto) 0.6 0.4 Eosinophils # (Auto) 0.7 0.6 Basophils # (Auto) 0.0 0.0 CBC Comment DIFF FINAL DIFF FINAL Differential Comment Prothrombin Time 40.0 45.5 Prothromb Time International Ratio 3.4 3.9 Blood Urea Nitrogen 6 7 Creatinine 0.60 0.53 Random Glucose 90 132 Total Protein 7.0 6.5 Albumin 3.4 3.2 Calcium Level 8.4 8.5 Magnesium Level 1.5 Alkaline Phosphatase 73 70 Aspartate Amino Transf (AST/SGOT) 24 22 Alanine Aminotransferase (ALT/SGPT) 18 17 Total Bilirubin 0.2 0.3 Sodium Level 124 127 Potassium Level 4.9 4.9 Chloride Level 91 95 Carbon Dioxide Level 25.0 24.2 Anion Gap 8 8 Estimat Glomerular Filtration Rate 135 156 Troponin I LESS THAN 0.02 B-Type Natriuretic Peptide 90 Urine Color YELLOW Urine Turbidity CLEAR Urine pH 6.0 Urine Specific [place] 1.010 Urine Protein NEG Urine Glucose (UA) NEG Urine Ketones NEG Urine Occult Blood MOD Urine Nitrite NEG Urine Bilirubin NEG Urine Leukocyte Esterase NEG Urine RBC 20-24 Urine WBC 0-2 Urine Squamous Epithelial Cells 0-5 Urine Bacteria NONE Microscopic Urinalysis Comment CULT NOT INDICATED Date/Time Source Procedure Growth Status 12/21/16 22:30 Wound Leg Gram Stain Pending Received 12/21/16 22:30 Wound Leg Wound Culture Pending Received Result Diagram: 12/22/16 0642 12/22/16 0642 Imaging Last Impressions Knee X-Ray 12/21/167 Signed Impressions: Service Date/Time: Wednesday, December 21, 2016 23:32 - CONCLUSION: 1. Below-knee amputation with no acute fracture. 2. Dense atherosclerotic calcification of the regional vasculature. Joel Dhillon MD Femur X-Ray [id number] Signed Impressions: Service Date/Time: Wednesday, December 21, 2016 22:51 - CONCLUSION: 1. No acute fracture. 2. Dense atherosclerotic calcification of the regional vasculature. Joel Dhillon MD Chest X-Ray [id number] Signed Impressions: Service Date/Time: Wednesday, December 21, 2016 21:04 - CONCLUSION: No evidence of acute cardiopulmonary disease. Hyperexpanded but clear lungs. Previous CABG. David Cabezas MD Caprini VTE Risk Assessment Caprini VTE Risk Assessment: Mod/High Risk (score >= 2) Caprini Risk Assessment Model Point Value = 1 Point Value = 2 Point Value = 3 Point Value = 5 Age 41-60 Minor surgery BMI > 25 kg/m2 Swollen legs Varicose veins or History of unexplained or recurrent spontaneous Oral contraceptives or hormone replacement Sepsis (< 1 month) Serious lung disease, including pneumonia (< 1 month) Abnormal pulmonary function Acute myocardial infarction Congestive heart failure (< 1 month) History of inflammatory bowel disease Medical patient at bed rest Age 61-74 Arthroscopic surgery Major open surgery (> 45 min) Laparoscopic surgery (> 45 min) Malignancy Confined to bed (> 72 hours) Immobilizing plaster cast Central venous access Age >= 75 History of VTE Family history of VTE Factor V Leiden Prothrombin [id number] Lupus anticoagulant Anticardiolipin antibodies Elevated serum homocysteine Heparin-induced thrombocytopenia Other congenital or acquired thrombophilia Stroke (< 1 month) Elective arthroplasty Hip, pelvis, or leg fracture Acute spinal cord injury (< 1 month) Prophylaxis Regimen Total Risk Factor Score Risk Level Prophylaxis Regimen 0-1 Low Early ambulation 2 Moderate Order ONE of the following: *Sequential Compression Device (SCD) *Heparin 5000 units SQ BID 3-4 Higher Order ONE of the following medications: *Heparin 5000 units SQ TID *Enoxaparin/Lovenox 40 mg SQ daily (WT < 150 kg, CrCl > 30 mL/min) *Enoxaparin/Lovenox 30 mg SQ daily (WT < 150 kg, CrCl > 10-29 mL/min) *Enoxaparin/Lovenox 30 mg SQ BID (WT < 150 kg, CrCl > 30 mL/min) AND/OR *Sequential Compression Device (SCD) 5 or more Highest Order ONE of the following medications: *Heparin 5000 units SQ TID (Preferred with Epidurals) *Enoxaparin/Lovenox 40 mg SQ daily (WT < 150 kg, CrCl > 30 mL/min) *Enoxaparin/Lovenox 30 mg SQ daily (WT < 150 kg, CrCl > 10-29 mL/min) *Enoxaparin/Lovenox 30 mg SQ BID (WT < 150 kg, CrCl > 30 mL/min) AND *Sequential Compression Device (SCD) Assessment and Plan Assessment and Plan Chronic obstructive pulmonary disease with acute exacerbation Continue O2 supplementation maintain O2 sats greater 92% Start Solu-Medrol 40 mg IV every 6 hours Start nebulizer treatments every 4 hours and every 2 hours as needed Start incentive spirometry Continue antibiotics Obtain sputum culture Start Robitussin-AC for cough suppression Chronic left lower extremity stasis ulceration, possible localized infection, osteomyelitis Continue Levaquin at this time Follow wound culture X-rays do not indicate any acute abnormality Obtain MRI to evaluate for any deep infection or osteomyelitis Consult wound care physician for recommendations Hyponatremia, improving Review medical records appears to be chronic, could be secondary to alcohol use, Continue to monitor Diabetes Patient continued on metformin Start Accu-Cheks with sliding scale insulin, will anticipate worsening glucose with initiation of steroids Hypertension, hyperlipidemia, coronary disease, paroxysmal atrial fibrillation, Peripheral vascular disease Continue home medications Supratherapeutic INR Hold Coumadin Monitor PT/INR DVT prevention patient is on Coumadin INR 3.9 This note was transcribed by nghia Osborn. I, Dr. John Hammond personally performed the history, physical exam, and medical decision making; and confirmed the accuracy of the information in the transcribed note. Authenticated by Dr. John Hammond on 12/22/16 at 16:33. Umair Osborn Dec 22, 2016 16:18 John Weiss MD Dec 22, 2016 16:35
[2016-12-22] MEDS ORDERED: GLUCAGON 1 MG/ML VIAL OTHER PRN (16:30)
[2016-12-22] MEDS ORDERED: DEXTROSE 50% IN WATER 50 ML VIAL(D50) IV PRN (16:30)
[2016-12-22] MEDS: INSULIN ASPART SUPPLEMENTAL SCALE SQ SCH ×2 (17:00→20:59)
[2016-12-22] MEDS ORDERED: diphenhydrAMINE HCL 25 MG CAP PO ONE (17:00)
--- NOTE | 2016-12-22 18:17 | RADRPT ---
EXAM DATE/TIME: 12/22/2016 17:18 [place] COMPARISON: KNEE LEFT LTD (1 OR 2VWS), December 21, 2016, 23:32. INDICATIONS : Osteomyelitis. CONTRAST: 16 cc Omniscan (gadodiamide) IV MEDICAL HISTORY : Hypertension. Diabetes mellitus type 2. Cardiovascular disease. SURGICAL HISTORY : Abdominal aortic aneurysm repair. CABG Left BKA ENCOUNTER: Initial ACUITY: 1 day PAIN SCORE: 0/10 LOCATION: Left leg TECHNIQUE: Multiplanar multisequence MRI examination of the lower leg was performed with and without contrast. FINDINGS: Changes of previous left below knee amputation again noted. The tibial remnant is approximately 10 cm in length. Soft tissues distally of the stump are diffusely edematous, including those surrounding t he distal portion of the tibial remnant. There is no rim enhancing fluid collection to suggest absces s. Cortex distally of the tibial remnant is mildly irregular and there is very focal marrow edema and T1 signal abnormality. Less than 1 cm of the distal tibial remnant is involved. Fibular remnant is within normal limits. CONCLUSION: Previous left below knee amputation. Short segment osteomyelitis distally of the tibial remnant as ab ove. Less than 1 cm of the distal bone is involved. No abscess. David Cabezas MD on December 22, 2016 at 18:10 Board Certified Radiologist. This report was verified electronically.
[2016-12-22] MEDS: methylPREDNISolone SOD SUCC 40 MG/1 ML VIAL IV PUSH SCH ×2 (18:27→22:41)
[2016-12-22] MEDS: RESP: ALBUTEROL 2.5 MG/IPRATROPIUM 0.5 MG NEB (SCH) NEB ×2 (19:51→23:23)
[2016-12-22] MEDS: ATORVASTATIN 40 MG TAB PO SCH (20:50)
[2016-12-22] MEDS: guaiFENesin/CODEINE SYRUP 200 MG/20 MG/10 ML CUP PO PRN (20:50)
[2016-12-22 21:28] VITALS: BP 125/86; PULSE 66; RESP 22; TEMP 98.8; O2SAT 98
[2016-12-23 01:15] VITALS: BP 122/75; PULSE 69; RESP 20; TEMP 98.9; O2SAT 97
[2016-12-23] MEDS: guaiFENesin/CODEINE SYRUP 200 MG/20 MG/10 ML CUP PO PRN ×3 (02:40→22:51)
[2016-12-23] MEDS: RESP: ALBUTEROL 2.5 MG/IPRATROPIUM 0.5 MG NEB (SCH) NEB ×4 (03:51→15:44)
[2016-12-23] MEDS: SODIUM CHLOR 0.9% 1000 ML INJ 1,000 ML IV SCH ×2 (05:48→21:41)
[2016-12-23] MEDS: methylPREDNISolone SOD SUCC 40 MG/1 ML VIAL IV PUSH SCH ×3 (06:01→21:25)
[2016-12-23] MEDS: ACETAMINOPHEN/HYDROcodone 325 MG/5 MG TAB PO PRN ×3 (06:16→22:01)
[2016-12-23 07:32] LABS: INTERNATIONAL NORMALIZED RATIO 2.2 RATIO; PROTHROMBIN TIME - PATIENT 24.9 SEC (9.8-11.6)
[2016-12-23 08:00] VITALS: BP 168/83; PULSE 89; RESP 19; TEMP 98.1; O2SAT 92
[2016-12-23] MEDS: INSULIN ASPART SUPPLEMENTAL SCALE SQ SCH ×4 (08:00→21:00)
[2016-12-23 08:01] LABS: AUTOMATED NEUTROPHIL # 3.4 TH/MM3 (1.8-7.7); BASOPHIL % 0.3 % (0.0-2.0); CHLORIDE 94 MEQ/L (98-107); EOSINOPHIL % 0.1 % (0.0-4.0); HEMATOCRIT 30.4 % (39.0-51.0); HEMO FLAGS DIFF FINAL; LYMPHOCYTE # 0.3 TH/MM3 (1.0-4.8); MEAN CELL VOLUME 97.1 FL (80.0-100.0); MEAN CORPUSCULAR HEMOGLOBIN 32.9 PG (27.0-34.0); MEAN CORPUSCULAR HGB CONC 33.9 % (32.0-36.0); MONO % 1.8 % (0.0-8.0); NEUT % 89.8 % (16.0-70.0); PLATELET COUNT 192 TH/MM3 (150-450); POTASSIUM 4.6 MEQ/L (3.5-5.1); RED BLOOD COUNT 3.13 MIL/MM3 (4.50-5.90); RED CELL DISTRIBUTION WIDTH 13.8 % (11.6-17.2); SODIUM (NA) 129 MEQ/L (136-145); WHITE BLOOD COUNT 3.8 TH/MM3 (4.0-11.0)
[2016-12-23 08:05] LABS: ANION GAP 10 MEQ/L (5-15); BICARBONATE 25.2 MEQ/L (21.0-32.0); BLOOD UREA NITROGEN 9 MG/DL (7-18)
[2016-12-23 08:08] LABS: ALT (GPT) 14 U/L (12-78); AST (GOT) 21 U/L (15-37); GLOMERULAR FILTRATION RATE 115 ML/MIN (>89)
[2016-12-23 08:10] LABS: TOTAL BILIRUBIN ADULT 0.4 MG/DL (0.2-1.0)
[2016-12-23 08:11] LABS: ALKALINE PHOSPHATASE 65 U/L (45-117)
[2016-12-23] MEDS: BUDESONIDE-FORMOTEROL 160/4.5 MCG INHALER INH SCH ×2 (09:00→22:51)
[2016-12-23] MEDS: SODIUM CHLORIDE 0.9% FLUSH 10 ML FLUSH IV FLUSH SCH ×2 (09:00→21:00)
[2016-12-23] MEDS: DOCUSATE SODIUM 50 MG/SENNA 8.6 MG TAB PO SCH ×2 (09:00→21:00)
[2016-12-23] MEDS: CLOTRIMAZOLE 1% CREAM 15 GM TOPICAL SCH ×2 (09:00→22:51)
[2016-12-23] MEDS: GABAPENTIN 400 MG CAP PO SCH ×3 (09:06→17:01)
[2016-12-23] MEDS: PANTOPRAZOLE SOD 40 MG DELAYED RELEASE TAB PO SCH (09:07)
[2016-12-23] MEDS: MULTIVITAMINS/MINERALS THERAPEUTIC TAB PO SCH (09:07)
[2016-12-23] MEDS: THIAMINE HCL 100 MG TAB PO SCH (09:07)
[2016-12-23] MEDS: ASPIRIN EC 81 MG TABEC PO SCH (09:07)
[2016-12-23] MEDS: SPIRONOLACTONE 25 MG TAB PO SCH (09:07)
[2016-12-23] MEDS: METOPROLOL TARTRATE 50 MG TAB PO SCH ×2 (09:08→21:24)
[2016-12-23] MEDS: FUROSEMIDE 20 MG TAB PO SCH (09:08)
--- NOTE | 2016-12-23 10:08 | PD.POD.CON ---
Patient Intake Chief Complaint Nonhealing wound of the left below-knee amputation. Consult Requested by Dr. Willis Reason for Consult Evaluation and treatment of nonhealing wound of the left below-knee amputation stump Primary Care Physician Bere Wood MD History of Present Illness Patient is a 66-year-old male with severe peripheral vascular disease who underwent an amputation below the knee in April. The patient has failed to follow up and he has a wound on the left amputation stump site that has not healed. He continues to smoke multiple packs of cigarettes a day. Coded Allergies: cefaclor (Unverified Allergy, Intermediate, rash, 12/21/16) Preferred Language to Discuss: Lithuanian Barriers to Learning: None Teaching Method: Discussion Vital Signs Date Time Temp Pulse Resp B/P (MAP) Pulse Ox O2 Delivery O2 Flow Rate FiO2 12/23/16 08:00 98.1 89 19 168/83 (111) 92 12/23/16 05:06 12/23/16 01:15 98.9 69 20 122/75 (91) 97 12/22/16 21:28 98.8 66 22 125/86 (99) 98 12/22/16 16:16 18 12/22/16 15:55 98.1 79 20 123/70 (87) 96 12/22/16 12:00 96.9 78 20 118/76 (90) 95 Pain scale used: 0-10 numeric scale Pain score: 2 Medications Current Medications Sodium Chloride (NS Flush) 2 ml UNSCH PRN IVF FLUSH AFTER USING IV ACCESS; Start 12/21/16 at 21:00; Stop 12/22/16 at 16:17; Status DC Albuterol/ Ipratropium (Duoneb Neb) 1 ampule Q15M INH Last administered on 12/21 20:54; Start 12/21/16 at 21:00; Stop 12/21/16 at 21:31; Status DC Vancomycin HCl 1500 mg/Sodium Chloride 515 ml @ 257.5 mls/ hr ONCE ONCE IV Last administered on 12/21/16 22:36; Start 12/21/16 at 22:00; Stop 12/21/16 at 23:59; Status DC Albuterol/ Ipratropium (Duoneb Neb) 1 ampule Q4HR NEB PRN NEB SOB/WHEEZING Last administered on 12/22/16 09:31; Start 12/22/16 at 00:00; Stop 12/22/16 at 16:13; Status DC Pharmacy Profile Note 0 ml @ 0 mls/hr UNSCH OTHER ; Start 12/22/16 at 00:00 Aztreonam 1000 mg/ Sodium Chloride 100 ml @ 200 mls/hr Q12H IV Last administered on 12/22/16 12:31; Start 12/22/16 at 00:00; Stop 12/22/16 at 13:41 ; Status DC Sodium Chloride 1,000 ml @ 100 mls/hr Q10H IV Last administered on 12/23/16 05:48; Start 12/21/16 at 23:48 Sodium Chloride (NS Flush) 2 ml UNSCH PRN IV FLUSH FLUSH AFTER USING IV ACCESS ; Start 12/22/16 at 00:00 Sodium Chloride (NS Flush) 2 ml BID IV FLUSH Last administered on 12/22/16 20: 51; Start 12/22/16 at 09:00 Ondansetron HCl (Zofran Inj) 4 mg Q6H PRN IVP NAUSEA OR VOMITING; Start at 00:00 Acetaminophen (Tylenol) 650 mg Q6H PRN PO FEVER/PAIN SCALE 1 TO 2; Start at 00:00 Acetaminophen/ Hydrocodone Bitart ([place] 5-325 Mg) 1 tab Q4H PRN PO PAIN SCALE 3 TO 5 Last administered on 12/23/16 09:08; Start 12/22/16 at 00:00 Morphine Sulfate (Morphine Inj) 2 mg Q3H PRN IV PUSH Pain 6-10; Start 12/22/16 at 00:00 Senna/Docusate Sodium ([place]-Colace) 1 tab BID PO Last administered on 09:00; Start 12/22/16 at 09:00 Magnesium Hydroxide (Milk Of Magnesia Liq) 30 ml Q12H PRN PO MILD - MODERATE CONSTIPATION; Start 12/22/16 at 00:00 Sennosides (Senokot) 17.2 mg Q12H PRN PO MODERATE - SEVERE CONSTIPATION; Start 12/22/16 at 00:00 Bisacodyl (Dulcolax Supp) 10 mg DAILY PRN RECTAL SEVERE CONSITIPATION; Start at 00:00 Lactulose (Lactulose Liq) 30 ml DAILY PRN PO SEVERE CONSITIPATION; Start at 00:00 Aspirin (Ecotrin Ec) 81 mg DAILY PO Last administered on 12/23/16 09:07; Start 12/22/16 at 09:00 Atorvastatin Calcium (Lipitor) 40 mg HS PO Last administered on 12/22/16 20:50 ; Start 12/22/16 at 21:00 Budesonide/ Formoterol Fumarate (Symbicort 160-4.5 Inh) 2 puff Q12HR INH Last administered on 12/23/16 09:00; Start 12/22/16 at 09:00 Clotrimazole (Lotrimin 1% Cream) 1 applic Q12HR TOPICAL Last administered on 09:00; Start 12/22/16 at 09:00 Furosemide (Lasix) 20 mg DAILY PO Last administered on 12/23/16 09:08; Start 12/22/16 at 09:00 Gabapentin (Neurontin) 800 mg TID PO Last administered on 12/23/16 09:06; Start 12/22/16 at 09:00 Metformin HCl (Glucophage) 500 mg BIDPC PO Last administered on 12/22/16 08:43 ; Start 12/22/16 at 09:00; Status Future hold Metoprolol Tartrate (Lopressor) 50 mg BID PO Last administered on 12/23/16 09: 08; Start 12/22/16 at 09:00 Multivitamins/ Minerals Therapeutic (Theragran M Tab) 1 tab DAILY PO Last administered on 12/23/16 09:07; Start 12/22/16 at 09:00 Pantoprazole Sodium (Protonix) 40 mg DAILY PO Last administered on 12/23/16 09 :07; Start 12/22/16 at 09:00 Spironolactone (Aldactone) 25 mg DAILY PO Last administered on 12/23/16 09:07 ; Start 12/22/16 at 09:00 Thiamine HCl (Vitamin B1) 100 mg DAILY PO Last administered on 12/23/16 09:07 ; Start 12/22/16 at 09:00 Warfarin Sodium (Coumadin) 5 mg DAILY PO ; Start 12/22/16 at 09:00; Stop at 09:00; Status DC Vancomycin HCl 1800 mg/Sodium Chloride 518 ml @ 250 mls/hr Q12H IV Last administered on 12/22/16 20:51; Start 12/22/16 at 09:00 Miscellaneous Information SPECIFIC LAB TO BE ... ONCE ONCE .XX ; Start 12/23 at 20:45; Stop 12/23/16 at 20:46 Warfarin Sodium (Coumadin) 5 mg DAILY@1600 PO ; Start 12/22/16 at 16:00 Levofloxacin/ Dextrose 150 ml @ 100 mls/hr Q24H IV Last administered on 15:02; Start 12/22/16 at 14:00 Albuterol/ Ipratropium (Duoneb Neb) 1 ampule Q4HR NEB NEB Last administered on 12/23/16 07:33; Start 12/22/16 at 16:30 Methylprednisolone Sodium Succinate (SoluMEDROL INJ) 40 mg Q6HR IV PUSH Last administered on 12/23/16 06:01; Start 12/22/16 at 18:00 Albuterol/ Ipratropium (Duoneb Neb) 1 ampule Q2HR NEB PRN NEB SOB/WHEEZING; Start 12/22/16 at 16:15 Guaifenesin/ Codeine Phosphate (Robitussin Ac 200-20 Mg/10 ml Liq) 10 ml Q6H PRN PO COUGH Last administered on 12/23/16 09:08; Start 12/22/16 at 16:15 Dextrose (D50w (Vial) Inj) 50 ml UNSCH PRN IV HYPOGLYCEMIA-SEE COMMENTS; Start 12/22/16 at 16:30 Glucagon (Glucagon Inj) 1 mg UNSCH PRN OTHER HYPOGLYCEMIA-SEE COMMENTS; Start 12/22/16 at 16:30 Insulin Aspart (NovoLOG SUPPLEMENTAL SCALE) 1 ACHS SLIDING SCALE SQ ; Start at 17:00 Diphenhydramine HCl (Benadryl) 25 mg ONCE ONCE PO Last administered on 18:23; Start 12/22/16 at 17:00; Stop 12/22/16 at 17:01; Status DC Gadodiamide (Omniscan Pf Inj) 16 ml STK-MED ONCE IVCONTRAST Last administered on 12/22/16 00:05; Start 12/22/16 at 00:05; Stop 12/22/16 at 17:36; Status DC Past, Family & Social History Past Medical History Endocrine: REPORTS HX OF: Diabetes mellitus Respiratory: REPORTS HX OF: COPD Cardiovascular: REPORTS HX OF: Atrial fibrillation, Coronary artery disease, Hyperlipidemia, Hypertension, Peripheral vascular dz, Other CV history ( cardiomyopathy) Gastrointestinal: REPORTS HX OF: Other GI history (GI bleed) Psychiatric: REPORTS HX OF: Anxiety, Depression Past Surgical History Cardiovascular: REPORTS HX OF: CABG surgery, Other cardiac surgery (Left iliac artery stent) Gastrointestinal: REPORTS HX OF: Other GI surgery (Cholecystectomy) Musculoskeletal: REPORTS HX OF: Other musculoskeletal srg (below-knee amputation of the left leg) Family Medical History Carcinomas G8 FATHER (Stomache - ) G8 MOTHER (stomach ) 19 DAUGHTER (Uterine) Cerebrovascular accident G8 BROTHER Kidney disease G8 BROTHER Thyroid disease 19 DAUGHTER (Thyroidectomy) Substance Use Substance Use: Denies use Larisa/Islam Larisa Tradition/Islam: Yazidi Review of Systems Constitutional: COMPLAINS OF: Pain Cardiovascular: COMPLAINS OF: Swelling legs / ankles Exam-Podiatry Constitutional General appearance: comfortable Orientation: alert and oriented x3 Dermatological Exam Skin Temp - Right: Within Normal Limits Skin Texture - Right: Within Normal Limits Skin Elasticity - Right: Within Normal Limits Skin Tugor - Right: Within Normal Limits Hair Growth - Right: Within Normal Limits Pigmentation - Right: Within Normal Limits Skin Temp - Left: Within Normal Limits Skin Texture - Left: Within Normal Limits Skin Elasticity - Left: Within Normal Limits Skin Tugor - Left: Within Normal Limits Hair Growth - Left: Within Normal Limits Pigmentation - Left: Within Normal Limits Ulcers: Location/Measurements Ulceration of the left lateral below-knee amputation stump site. No cellulitis noted. Vascular/Lymphatic Exam R Dorsails Pedis: Doppler L Dorsails Pedis: Absent R Posterior Tibial: Doppler L Posterior Tibial: Absent Lab and Radiology Results Laboratory Laboratory Tests Test 12/21/16 21:12 12/22/16 06:42 12/23/16 06:41 White Blood Count 5.5 TH/MM3 4.9 TH/MM3 3.8 TH/MM3 Red Blood Count 3.32 MIL/MM3 3.11 MIL/MM3 3.13 MIL/MM3 Hemoglobin 11.0 GM/DL 10.1 GM/DL 10.3 GM/DL Hematocrit 32.3 % 29.6 % 30.4 % Mean Corpuscular Volume 97.2 FL 95.3 FL 97.1 FL Mean Corpuscular Hemoglobin 33.2 PG 32.3 PG 32.9 PG Mean Corpuscular Hemoglobin Concent 34.1 % 33.9 % 33.9 % Red Cell Distribution Width 13.8 % 13.6 % 13.8 % Platelet Count 208 TH/MM3 194 TH/MM3 192 TH/MM3 Mean Platelet Volume 7.6 FL 7.5 FL 8.0 FL Neutrophils (%) (Auto) 61.0 % 65.3 % 89.8 % Lymphocytes (%) (Auto) 14.5 % 14.1 % 8.0 % Monocytes (%) (Auto) 10.4 % 8.5 % 1.8 % Eosinophils (%) (Auto) 13.5 % 11.5 % 0.1 % Basophils (%) (Auto) 0.6 % 0.6 % 0.3 % Neutrophils # (Auto) 3.4 TH/MM3 3.2 TH/MM3 3.4 TH/MM3 Lymphocytes # (Auto) 0.8 TH/MM3 0.7 TH/MM3 0.3 TH/MM3 Monocytes # (Auto) 0.6 TH/MM3 0.4 TH/MM3 0.1 TH/MM3 Eosinophils # (Auto) 0.7 TH/MM3 0.6 TH/MM3 0.0 TH/MM3 Basophils # (Auto) 0.0 TH/MM3 0.0 TH/MM3 0.0 TH/MM3 CBC Comment DIFF FINAL DIFF FINAL DIFF FINAL Differential Comment Laboratory Tests Test 12/21/16 21:12 12/22/16 06:42 12/23/16 06:41 Blood Urea Nitrogen 6 MG/DL 7 MG/DL 9 MG/DL Creatinine 0.60 MG/DL 0.53 MG/DL 0.69 MG/DL Random Glucose 90 MG/DL 132 MG/DL 194 MG/DL Total Protein 7.0 GM/DL 6.5 GM/DL 6.6 GM/DL Albumin 3.4 GM/DL 3.2 GM/DL 3.0 GM/DL Calcium Level 8.4 MG/DL 8.5 MG/DL 8.3 MG/DL Magnesium Level 1.5 MG/DL Alkaline Phosphatase 73 U/L 70 U/L 65 U/L Aspartate Amino Transf (AST/SGOT) 24 U/L 22 U/L 21 U/L Alanine Aminotransferase (ALT/SGPT) 18 U/L 17 U/L 14 U/L Total Bilirubin 0.2 MG/DL 0.3 MG/DL 0.4 MG/DL Sodium Level 124 MEQ/L 127 MEQ/L 129 MEQ/L Potassium Level 4.9 MEQ/L 4.9 MEQ/L 4.6 MEQ/L Chloride Level 91 MEQ/L 95 MEQ/L 94 MEQ/L Carbon Dioxide Level 25.0 MEQ/L 24.2 MEQ/L 25.2 MEQ/L Anion Gap 8 MEQ/L 8 MEQ/L 10 MEQ/L Estimat Glomerular Filtration Rate 135 ML/MIN 156 ML/MIN 115 ML/MIN Troponin I LESS THAN 0.02 NG/ML B-Type Natriuretic Peptide 90 PG/ML Microbiology Date/Time Source Procedure Growth Status 12/21/16 22:30 Wound Leg Gram Stain - Final Resulted 12/21/16 22:30 Wound Leg Wound Culture Pending Resulted Radiology Last Impressions Lower Extremity MRI 12/22/16 0000 Signed Impressions: Service Date/Time: Thursday, December 22, 2016 17:18 - CONCLUSION: Previous left below knee amputation. Short segment osteomyelitis distally of the tibial remnant as above. Less than 1 cm of the distal bone is involved. No abscess. David Cabezas MD Knee X-Ray 12/21/167 Signed Impressions: Service Date/Time: Wednesday, December 21, 2016 23:32 - CONCLUSION: 1. Below-knee amputation with no acute fracture. 2. Dense atherosclerotic calcification of the regional vasculature. Joel Dhillon MD Femur X-Ray [id number]/21/[id number] Signed Impressions: Service Date/Time: Wednesday, December 21, 2016 22:51 - CONCLUSION: 1. No acute fracture. 2. Dense atherosclerotic calcification of the regional vasculature. Joel Dhillon MD Chest X-Ray 12/21/[id number] Signed Impressions: Service Date/Time: Wednesday, December 21, 2016 21:04 - CONCLUSION: No evidence of acute cardiopulmonary disease. Hyperexpanded but clear lungs. Previous CABG. David Cabezas MD Assessment/Plan Problem List: (1) Ulcer of amputation stump of lower extremity Status: Acute (2) Lower limb ischemia Status: Chronic (3) PAD (peripheral artery disease) Status: Chronic Additional Plans & Procedures Plan: Discussed with patient the importance of stopping smoking. Vascular surgery consult for revision to above-knee amputation. We'll continue to follow as needed. Azael Davidson DPM Dec 23, 2016 10:07
[2016-12-23] MEDS: VANCOMYCIN INJ 1,800 MG in SODIUM CHLORID 0.9% 500 ML INJ 500 ML IV SCH ×2 (10:15→21:25)
[2016-12-23 12:00] VITALS: BP 150/78; PULSE 82; RESP 18; TEMP 97.9; O2SAT 93
[2016-12-23] MEDS: LEVOFLOXACIN 750 MG PREMIX INJ 150 ML IV SCH (12:14)
--- NOTE | 2016-12-23 12:56 | HHI.PR ---
Subjective Remarks c/o itching denies cp/sob much improved denies fevers/chills Objective Vitals Vital Signs Date Time Temp Pulse Resp B/P (MAP) Pulse Ox O2 Delivery O2 Flow Rate FiO2 12/23/16 12:00 97.9 82 18 150/78 (102) 93 12/23/16 08:00 98.1 89 19 168/83 (111) 92 12/23/16 05:06 12/23/16 01:15 98.9 69 20 122/75 (91) 97 12/22/16 21:28 98.8 66 22 125/86 (99) 98 12/22/16 16:16 18 12/22/16 15:55 98.1 79 20 123/70 (87) 96 I/O 12/22/16 12/22/16 12/22/16 12/23/16 12/23/16 12/23/16 07:00 15:00 23:00 07:00 15:00 23:00 Intake Total 515 ml 2464 ml 150 ml 500 ml Output Total 250 ml 2000 ml 2250 ml Balance 265 ml 464 ml 150 ml -2250 ml 500 ml Intake Oral 1200 ml IV Total 515 ml 1264 ml 150 ml 500 ml Output Urine Total 250 ml 2000 ml 2250 ml # Voids 0 # Bowel Movements 0 Result Diagram: 12/23/16 0641 12/23/16 0641 Imaging Last Impressions Lower Extremity MRI 12/22/16 0000 Signed Impressions: Service Date/Time: Thursday, December 22, 2016 17:18 - CONCLUSION: Previous left below knee amputation. Short segment osteomyelitis distally of the tibial remnant as above. Less than 1 cm of the distal bone is involved. No abscess. David Cabezas MD Knee X-Ray 12/21/[id number] Signed Impressions: Service Date/Time: Wednesday, December 21, 2016 23:32 - CONCLUSION: 1. Below-knee amputation with no acute fracture. 2. Dense atherosclerotic calcification of the regional vasculature. Joel Dhillon MD Femur X-Ray 12/21/[id number] Signed Impressions: Service Date/Time: Wednesday, December 21, 2016 22:51 - CONCLUSION: 1. No acute fracture. 2. Dense atherosclerotic calcification of the regional vasculature. Joel Dhillon MD Chest X-Ray 12/21/162046 Signed Impressions: Service Date/Time: Wednesday, December 21, 2016 21:04 - CONCLUSION: No evidence of acute cardiopulmonary disease. Hyperexpanded but clear lungs. Previous CABG. David Cabezas MD Objective Remarks GENERAL: Well-developed, well-nourished, patient appears to be with significant coughing and respiratory distress. alert and orientated HEENT: Head is normocephalic without any lesions or masses noted. Facial features are symmetric. Eyes: Pupils equal round reactive to light. Extraocular muscles are intact. Conjunctivae were clear. Oropharyngeal: Pharynx without any erythema edema. Tongue is midline without deviation. Buccal mucosa is moist without any masses or lesions NECK: Supple without any masses. Trachea midline no deviation. No JVD, no bruits are appreciated CARDIAC: Regular rhythm, regular rate. S1/S2 are heard. No murmurs gallops or rubs. LUNGS: Decreased breath sounds with some rhoncho BL, however wheezing previously noted has resolved. ABDOMEN: Soft, nontender. Nondistended. Bowel sounds heard in all 4 quadrants. No organomegaly or masses. Negative rebound, negative guarding EXTREMITIES: No edema, pulses are equal bilaterally. No cyanosis or clubbing. Left BKA NEUROLOGY: Mood and affect appear appropriate. Cranial nerves II through XII grossly intact. Muscle strength 5/5 in upper and lower extremities bilaterally. Deep tendon reflexes are 2+ in upper and lower extremities bilaterally. LEFT LOWER EXTREMITY: Patient does have a 1 cm area noted on the medial aspect of his stump. He has clear edges which appeared nice and pink. Mild tenderness noted inferior to the lesion. With hard palpation could express some exudate. Medications and IVs Current Medications Medications (Trade) Dose Ordered Sig/Lindsey Route Start Time Stop Time Status Last Admin Pharmacy Profile Note 0 ml @ 0 mls/hr UNSCH OTHER 12/22/16 00:00 Sodium Chloride 1,000 ml @ 100 mls/hr Q10H IV 12/21/16 23:48 12/23/16 05:48 (NS Flush) 2 ml UNSCH PRN IV FLUSH 12/22/16 00:00 (NS Flush) 2 ml BID IV FLUSH 12/22/16 09:00 12/22/16 20:51 (Zofran Inj) 4 mg Q6H PRN IVP 12/22/16 00:00 (Tylenol) 650 mg Q6H PRN PO 12/22/16 00:00 ([place] 5-325 Mg) 1 tab Q4H PRN PO 12/22/16 00:00 12/23/16 09:08 (Morphine Inj) 2 mg Q3H PRN IV PUSH 12/22/16 00:00 ([place]asta-Colace) 1 tab BID PO 12/22/16 09:00 12/23/16 09:00 (Milk Of Magnesia Liq) 30 ml Q12H PRN PO 12/22/16 00:00 (Senokot) 17.2 mg Q12H PRN PO 12/22/16 00:00 (Dulcolax Supp) 10 mg DAILY PRN RECTAL 12/22/16 00:00 (Lactulose Liq) 30 ml DAILY PRN PO 12/22/16 00:00 (Ecotrin Ec) 81 mg DAILY PO 12/22/16 09:00 12/23/16 09:07 (Lipitor) 40 mg HS PO 12/22/16 21:00 12/22/16 20:50 (Symbicort 160-4.5 Inh) 2 puff Q12HR INH 12/22/16 09:00 12/23/16 09:00 (Lotrimin 1% Cream) 1 applic Q12HR TOPICAL 12/22/16 09:00 12/23/16 09:00 (Lasix) 20 mg DAILY PO 12/22/16 09:00 12/23/16 09:08 (Neurontin) 800 mg TID PO 12/22/16 09:00 12/23/16 12:09 (Glucophage) 500 mg BIDPC PO 12/22/16 09:00 Future hold 12/22/16 08:43 (Lopressor) 50 mg BID PO 12/22/16 09:00 12/23/16 09:08 (Theragran M Tab) 1 tab DAILY PO 12/22/16 09:00 12/23/16 09:07 (Protonix) 40 mg DAILY PO 12/22/16 09:00 12/23/16 09:07 (Aldactone) 25 mg DAILY PO 12/22/16 09:00 12/23/16 09:07 (Vitamin B1) 100 mg DAILY PO 12/22/16 09:00 12/23/16 09:07 Vancomycin HCl 1800 mg/Sodium Chloride 518 ml @ 250 mls/hr Q12H IV 12/22/16 09:00 12/23/16 10:15 Miscellaneous Information SPECIFIC LAB TO BE [facility]ESHIA... ONCE ONCE .XX 12/23/16 20:45 12/23/16 20:46 (Coumadin) 5 mg DAILY@1600 PO 12/22/16 16:00 Levofloxacin/ Dextrose 150 ml @ 100 mls/hr Q24H IV 12/22/16 14:00 12/23/16 12:14 (Duoneb Neb) 1 ampule Q4HR NEB NEB 12/22/16 16:30 12/23/16 11:19 (SoluMEDROL INJ) 40 mg Q6HR IV PUSH 12/22/16 18:00 12/23/16 12:11 (Duoneb Neb) 1 ampule Q2HR NEB PRN NEB 12/22/16 16:15 (Robitussin Ac 200-20 Mg/10 ml Liq) 10 ml Q6H PRN PO 12/22/16 16:15 12/23/16 09:08 (D50w (Vial) Inj) 50 ml UNSCH PRN IV 12/22/16 16:30 (Glucagon Inj) 1 mg UNSCH PRN OTHER 12/22/16 16:30 (NovoLOG SUPPLEMENTAL SCALE) 1 ACHS SLIDING SCALE SQ 12/22/16 17:00 12/23/16 12:09 A/P Problem List: (1) Stasis ulcer of left lower extremity ICD Code: I83.029 - Varicose veins of left lower extremity with ulcer of unspecified site (2) Hyponatremia ICD Code: E87.1 - Hypo-osmolality and hyponatremia Status: Acute (3) Chronic obstructive pulmonary disease ICD Code: J44.9 - Chronic obstructive pulmonary disease, unspecified (4) Osteomyelitis ICD Code: M86.9 - Osteomyelitis, unspecified Assessment and Plan Chronic obstructive pulmonary disease with acute exacerbation The patient was admitted to the medical floor Continue O2 supplementation maintain O2 sats greater 92% Continue Solu-Medrol - I will taper down dose to 40 mg IV every 8 hours Continue nebulizer treatments every 4 hours and every 2 hours as needed Continue incentive spirometry Continue IV Levaquin Continue Robitussin-AC for cough suppression Chronic left lower extremity stasis ulceration with osteomyelitis Osteomyelitis confirmed by MRI Continue Levaquin at this time Follow wound culture X-rays do not indicate any acute abnormality The case was discussed with Dr. Davidson. Will sent to the [facility] for vascular surgery consultation for revision to [id number] amputation. Acute on chronic Hyponatremia, improving After review medical records it appears to be chronic however this is an acute on chronic hyponatremia Sodium levels are trending up with IV normal saline. Continue Diabetes Hold metformin Continue Accu-Cheks with sliding scale insulin, will anticipate worsening glucose with initiation of steroids. Hypertension, hyperlipidemia, coronary disease, paroxysmal atrial fibrillation, Peripheral vascular disease Continue home medications Supratherapeutic INR Coumadin level III.9 on admission. I will resume Coumadin and have pharmacy dose it. DVT prevention Patient on Coumadin. Discharge Planning Past the patient to the [facility] in [place] for possible surgery consultation. John Weiss MD Dec 23, 2016 12:56
[2016-12-23 16:00] VITALS: BP 148/75; PULSE 80; RESP 17; TEMP 97.5; O2SAT 93
[2016-12-23] MEDS: WARFARIN SOD 5 MG TAB PO SCH (17:00)
[2016-12-23 20:00] VITALS: BP 135/70; PULSE 106; RESP 18; TEMP 98.1; O2SAT 92
[2016-12-23] MEDS ORDERED: PHARMACY ORDERED LAB ONE (20:45)
[2016-12-23] MEDS: NICOTINE 14 MG/24 HR PATCH T-DERMAL SCH (21:12)
[2016-12-23] MEDS: ATORVASTATIN 40 MG TAB PO SCH (21:24)
[2016-12-24] VITALS (7 sets, daily range): BP systolic 137–171; BP diastolic 65–85; PULSE 89–123; RESP 18–20; TEMP 96.6–98.2; O2SAT 92–96
[2016-12-24] MEDS: RESP: ALBUTEROL 2.5 MG/IPRATROPIUM 0.5 MG NEB (SCH) NEB ×6 (00:14→20:31)
[2016-12-24] MEDS: diphenhydrAMINE HCL 25 MG CAP PO PRN ×2 (00:55→09:35)
[2016-12-24] MEDS ORDERED: LORazepam 2 MG/ML VIAL IV PUSH ONE (02:45)
[2016-12-24 06:13] LABS: INTERNATIONAL NORMALIZED RATIO 1.8 RATIO; PROTHROMBIN TIME - PATIENT 20.9 SEC (9.8-11.6)
[2016-12-24] MEDS: INSULIN ASPART SUPPLEMENTAL SCALE SQ SCH ×4 (07:24→21:00)
[2016-12-24] MEDS: BUDESONIDE-FORMOTEROL 160/4.5 MCG INHALER INH SCH ×2 (09:00→21:20)
[2016-12-24] MEDS: CLOTRIMAZOLE 1% CREAM 15 GM TOPICAL SCH ×2 (09:00→21:00)
[2016-12-24] MEDS: DOCUSATE SODIUM 50 MG/SENNA 8.6 MG TAB PO SCH ×2 (09:00→21:00)
[2016-12-24] MEDS: REMOVE OLD PATCH T-DERMAL SCH (09:00)
[2016-12-24] MEDS: SODIUM CHLORIDE 0.9% FLUSH 10 ML FLUSH IV FLUSH SCH ×2 (09:00→21:20)
[2016-12-24] MEDS: methylPREDNISolone SOD SUCC 40 MG/1 ML VIAL IV PUSH SCH ×2 (09:00→21:18)
[2016-12-24] MEDS: FUROSEMIDE 20 MG TAB PO SCH (09:34)
[2016-12-24] MEDS: ASPIRIN EC 81 MG TABEC PO SCH (09:34)
[2016-12-24] MEDS: MULTIVITAMINS/MINERALS THERAPEUTIC TAB PO SCH (09:34)
[2016-12-24] MEDS: THIAMINE HCL 100 MG TAB PO SCH (09:34)
[2016-12-24] MEDS: GABAPENTIN 400 MG CAP PO SCH ×3 (09:34→16:55)
[2016-12-24] MEDS: PANTOPRAZOLE SOD 40 MG DELAYED RELEASE TAB PO SCH (09:34)
[2016-12-24] MEDS: METOPROLOL TARTRATE 50 MG TAB PO SCH ×2 (09:34→21:18)
[2016-12-24] MEDS: NICOTINE 14 MG/24 HR PATCH T-DERMAL SCH (09:34)
[2016-12-24] MEDS: ACETAMINOPHEN/HYDROcodone 325 MG/5 MG TAB PO PRN ×2 (09:35→16:55)
[2016-12-24] MEDS: SPIRONOLACTONE 25 MG TAB PO SCH (09:35)
--- NOTE | 2016-12-24 10:46 | HHI.PR ---
Subjective Remarks Patient doing well. No complaints. No further drainage at left stump ulcer. Objective Vital Signs Date Time Temp Pulse Resp B/P (MAP) Pulse Ox O2 Delivery O2 Flow Rate FiO2 12/24/16 08:00 98.2 123 20 148/85 (106) 93 12/24/16 00:19 94 12/24/16 00:00 96.6 90 18 140/68 (92) 92 12/23/16 20:00 98.1 106 18 135/70 (91) 92 12/23/16 16:00 97.5 80 17 148/75 (99) 93 12/23/16 12:00 97.9 82 18 150/78 (102) 93 I/O 12/23/16 12/23/16 12/23/16 12/24/16 12/24/16 12/24/16 07:00 15:00 23:00 07:00 15:00 23:00 Intake Total 500 ml 518 ml Output Total 2250 ml 600 ml 1200 ml 1000 ml Balance -2250 ml -100 ml -682 ml -1000 ml IV Total 500 ml 518 ml Output Urine Total 2250 ml 600 ml 1200 ml 1000 ml # Bowel Movements 0 Result Diagram: 12/23/16 0641 12/23/16 0641 Objective Remarks GENERAL: NAD, A&Ox3 HEAD: Normocephalic. NECK: Supple, trachea midline. No lymphadenopathy. EYES: No scleral icterus. No injection or drainage. CARDIOVASCULAR: Regular rate and rhythm without murmurs, gallops, or rubs. RESPIRATORY: Breath sounds equal bilaterally. No accessory muscle use. GASTROINTESTINAL: Abdomen soft, non-tender, nondistended. MUSCULOSKELETAL: No cyanosis, or edema. [id number] amputation of left SKIN: Warm and dry. Sternal surgical scar, abdominal surgical scar NEURO: No focal neurological deficitis. A/P Problem List: (1) Osteomyelitis ICD Code: M86.9 - Osteomyelitis, unspecified (2) Ulcer of amputation stump of lower extremity ICD Code: T87.89 - Other complications of amputation stump; L97.909 - Non- pressure chronic ulcer of unspecified part of unspecified lower leg with unspecified severity Status: Acute (3) Chronic obstructive pulmonary disease ICD Code: J44.9 - Chronic obstructive pulmonary disease, unspecified (4) COPD (chronic obstructive pulmonary disease) ICD Code: J44.9 - Chronic obstructive pulmonary disease Status: Chronic (5) Hx of BKA ICD Code: Z89.519 - Acquired absence of unspecified leg below knee Status: Acute Assessment and Plan Assessment and Plan 66-year-old male admitted secondary to COPD exacerbation and infection of left lower extremity stump COPD exacerbation Continue oxygen support Continue systemic steroids Wean systemic steroids Incentive spirometry Continue Robitussin as needed Continue Levaquin Continue nebulized treatments Follow for improvement History of left BKA (April 2016) Osteomyelitis Left lower extremity stump ulcer Peripheral vascular disease Continue Levaquin Vascular surgery following Follow wound culture Hyponatremia Follow and replace as needed Diabetes mellitus type 2 Follow blood sugars Insulin sliding scale Diabetic diet Hypertension Hyperlipidemia Coronary artery disease Paroxysmal A. fib No exacerbations Continue home treatments Follow clinically Supratherapeutic INR Follow INR DVT prevention Patient on Coumadin. Ronald Gallego MD Dec 24, 2016 10:46
[2016-12-24] MEDS: SODIUM CHLOR 0.9% 1000 ML INJ 1,000 ML IV SCH ×2 (11:36→21:19)
[2016-12-24] MEDS: VANCOMYCIN INJ 1,800 MG in SODIUM CHLORID 0.9% 500 ML INJ 500 ML IV SCH ×2 (11:36→21:20)
[2016-12-24] MEDS: guaiFENesin/CODEINE SYRUP 200 MG/20 MG/10 ML CUP PO PRN ×2 (11:46→21:18)
--- NOTE | 2016-12-24 12:08 | PD.VS.CON ---
History of Present Illness Chief Complaint: Chronic 1.5cm X 0.5 cm Ulceration near lateral aspect of Left BKA stump Non healing per patient w/o worsening Consult Requested by: Dr. Davidson History of Present Illness Mr. Salcedo is a 66/M patient with a PMH of peripheral arterial disease who several years ago underwent an aortobifemoral bypass graft that remained patent however significant tissue loss of his left foot progressed back in April of this year requiring a Left below the knee amputation (05/01/16). Pt has f/u since in our out patient clinic with his last visit noted in June where his incision was fully healed w/o wounds or ulcerations. 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 GI bleed History of intubation X 3 Past Surgical History ABF CABG T&A [place] Social History + tob + EtOH (Diana Olivera) Home Medications Active Scripts Warfarin (Warfarin) 5 Mg Tab, 5 MG PO DAILY for Blood Clot Prevention, #30 TAB 1 Refill Prov:Bety Ness 11/27/16 Albuterol 18 GM Inh (Ventolin Hfa 18 GM Inh) 90 Mcg/Act Aer, 2 PUFF INH Q4-6H Y for SHORTNESS OF BREATH, #1 INHALER 4 Refills Prov:Bety Ness 10/15/16 Ipratropium-Albuterol Neb (Duoneb) 0.5-2.5 Mg/3 Ml Neb, 1 AMPULE NEB Q8HR NEB Y for SHORTNESS OF BREATH, #90 ML 1 Refill Prov:Bere Wood MD 08/29/16 Pantoprazole (Protonix) 40 Mg Tab, 40 MG PO DAILY for Reflux, #30 TAB 6 Refills Prov:Bere Wood MD 07/18/16 Atorvastatin (Atorvastatin) 40 Mg Tab, 40 MG PO HS for Cholesterol Management, # 30 TAB 6 Refills Prov:Bere Wood MD 07/18/16 Spironolactone (Spironolactone) 25 Mg Tab, 25 MG PO DAILY, #30 TAB 6 Refills Prov:Bere Wood MD 06/29/16 Hydrocodone-Acetaminophen (Pass Christian) 10-325 Mg Tab, 1-2 TAB PO Q4H Y for PAIN SCALE 4 TO 10, #120 TAB 0 Refills Prov:Gabriella Taveras MD 05/23/16 Gabapentin (Gabapentin) 800 Mg Tab, 800 MG PO TID, #90 TAB 1 Refill Prov:Gabriella Taveras MD 05/23/16 Furosemide (Lasix) 20 Mg Tab, 20 MG PO DAILY, #30 TAB 1 Refill Prov:Gabriella Taveras MD 05/23/16 Metformin (Glucophage) 500 Mg Tab, 500 MG PO BIDPC for Blood Sugar Management, # 60 TAB 1 Refill With meals Prov:Gabriella Taveras MD 05/23/16 Clotrimazole Topical (Clotrimazole Anti-Fungal Topical) 1% Cream, 1 APPLIC TOPICAL Q12HR for 10 Days, TUBE 0 Refills Prov:Gabriella Taveras MD 05/23/16 Budesonide-Formoterol Inh (Symbicort Inh) 160-4.5 Mcg/Act Aero, 2 PUFF INH Q12HR , #1 INHALER 1 Refill Prov:Gabriella Taveras MD 05/23/[address] (Aspirin EC) 81 Mg Tabdr, 81 MG PO DAILY, #30 TAB 1 Refill Prov:Gabriella Taveras MD 05/23/16 Metoprolol Tartrate (Metoprolol Tartrate) 50 Mg Tab, 50 MG PO BID, #60 TAB 1 Refill Prov:Gabriella Taveras MD 05/23/16 Multiple Vitamins W/ Minerals (Thera M Plus) 1 Tab, 1 TAB PO DAILY for Nutritional Supplement, #30 TAB 1 Refill Prov:Gabriella Taveras MD 05/23/16 Bedside Commode (Bedside Commode) 1 Mis Mis, 1 EA .ROUTE DIRECTED, #1 EA Prov:Nan Holt 05/21/16 Walker Rolling/GetGo (Walker Rolling/GetGo) 1 Mis Mis, 1 EA .ROUTE DIRECTED, #1 EA Prov:Nan Holt 05/21/16 Reported Medications Thiamine (Vitamin B-1) 100 Mg Tab, 100 MG PO DAILY for Nutritional Supplement, TAB 0 Refills 03/07/16 Coded Allergies: cefaclor (Unverified Allergy, Intermediate, rash, 12/21/16) Physical Exam Vitals/I&O Date Time Temp Pulse Resp B/P (MAP) Pulse Ox O2 Delivery O2 Flow Rate FiO2 12/24/16 08:00 98.2 123 20 148/85 (106) 93 12/24/16 00:19 94 12/24/16 00:00 96.6 90 18 140/68 (92) 92 12/23/16 20:00 98.1 106 18 135/70 (91) 92 12/23/16 16:00 97.5 80 17 148/75 (99) 93 12/23/16 12:00 97.9 82 18 150/78 (102) 93 12/24/16 12/24/16 12/24/16 07:00 15:00 23:00 Output Total 1000 ml Balance -1000 ml Neuro: A&OX3 GCS 15 Heart: RRR +S1,S2 Lungs: CTA Slightly Diminished BS B Lower bases W/O wheezing Vascular: 1.5 cm X 0.5 cm Ulceration of the left lateral below-knee amputation stump Site w/o erythema, swelling, odor or pain No cellulitis noted L BKA incision healed LE warm with motor intact (Diana Olivera) Laboratory Tests Test 12/23/16 21:30 12/24/16 05:50 Vancomycin Level Trough 11.5 Prothrombin Time 20.9 Prothromb Time International Ratio 1.8 Date/Time Source Procedure Growth Status 12/21/16 22:30 Wound Leg Gram Stain - Final Resulted 12/21/16 22:30 Wound Culture - Preliminary Gram Negative Kenji Resulted Last 72 hours Impressions Lower Extremity MRI 12/22/16 0000 Signed Impressions: Service Date/Time: Saturday, December 22, 2016 17:18 - CONCLUSION: Previous left below knee amputation. Short segment osteomyelitis distally of the tibial remnant as above. Less than 1 cm of the distal bone is involved. No abscess. David Cabezas MD Knee X-Ray 12/21/167 Signed Impressions: Service Date/Time: Wednesday, December 21, 2016 23:32 - CONCLUSION: 1. Below-knee amputation with no acute fracture. 2. Dense atherosclerotic calcification of the regional vasculature. Joel Dhillon MD Femur X-Ray 12/21/162235 Signed Impressions: Service Date/Time: Wednesday, December 21, 2016 22:51 - CONCLUSION: 1. No acute fracture. 2. Dense atherosclerotic calcification of the regional vasculature. Joel Dhillon MD Chest X-Ray 12/21/162046 Signed Impressions: Service Date/Time: Wednesday, December 21, 2016 21:04 - CONCLUSION: No evidence of acute cardiopulmonary disease. Hyperexpanded but clear lungs. Previous CABG. David Cabezas MD (Diana Olivera) Assessment and Plan Assessment: (1) Ulcer of amputation stump of lower extremity Status: Acute (2) Osteomyelitis Status: Acute (3) Chronic obstructive pulmonary disease Status: Chronic (4) PAD (peripheral artery disease) Status: Chronic (5) Tobacco abuse Status: Chronic (6) Hypertension Status: Chronic (7) CAD (coronary artery disease) Status: Chronic (8) DM type 2 (diabetes mellitus, type 2) Status: Chronic (9) Status post below knee amputation of left lower extremity Status: Chronic Plan Mr. Salcedo is a 66/M s/p L BKA (05/01/16) who presents for an evaluation of a non healing ulceration of the left lateral below-knee amputation stump site. No cellulitis noted Pt w/o fever or chills Plan Continue antibiotic therapy for Osteomyelitis Wound appears stable Recommend wound care therapy Pt not a surgical candidate at this time Diana [place] [facility]/[place] [phone] (Diana Olivera) Plan Minor wound on BKA but does not appear infected. I reviewed the MRI and plain Xray. I think this is a minor wound and based on only the MRI, I would not treat surgically and would maybe give oral antibiotics and local wound care. Will arrange f/u in my clinic in 2 weeks. Will discuss with burial vault maker as well. Saúl Latif MD FACS [facility] day haul or farm charter bus driver Formerly [facility] - Heart and Vascular Surgery at [facility] [phone] (Saúl Latif MD) Diana Olivera Dec 24, 2016 11:25 Saúl Latif MD Dec 24, 2016 14:30
[2016-12-24] MEDS: LEVOFLOXACIN 750 MG PREMIX INJ 150 ML IV SCH (14:00)
[2016-12-24] MEDS: WARFARIN SOD 5 MG TAB PO SCH (16:55)
[2016-12-24] MEDS: ATORVASTATIN 40 MG TAB PO SCH (21:18)
[2016-12-25] VITALS (7 sets, daily range): BP systolic 160–173; BP diastolic 80–85; PULSE 81–89; RESP 18–20; TEMP 97.2–98.2; O2SAT 94–95
[2016-12-25 08:06] LABS: INTERNATIONAL NORMALIZED RATIO 1.8 RATIO; PROTHROMBIN TIME - PATIENT 20.7 SEC (9.8-11.6)
[2016-12-25] MEDS: VANCOMYCIN INJ 1,800 MG in SODIUM CHLORID 0.9% 500 ML INJ 500 ML IV SCH (08:23)
[2016-12-25] MEDS: MULTIVITAMINS/MINERALS THERAPEUTIC TAB PO SCH (08:26)
[2016-12-25] MEDS: methylPREDNISolone SOD SUCC 40 MG/1 ML VIAL IV PUSH SCH (08:26)
[2016-12-25] MEDS: ASPIRIN EC 81 MG TABEC PO SCH (08:26)
[2016-12-25] MEDS: THIAMINE HCL 100 MG TAB PO SCH (08:26)
[2016-12-25] MEDS: SPIRONOLACTONE 25 MG TAB PO SCH (08:26)
[2016-12-25] MEDS: GABAPENTIN 400 MG CAP PO SCH ×3 (08:27→17:42)
[2016-12-25] MEDS: FUROSEMIDE 20 MG TAB PO SCH (08:27)
[2016-12-25] MEDS: metFORMIN HCL 500 MG TAB PO SCH ×2 (08:27→17:41)
[2016-12-25] MEDS: PANTOPRAZOLE SOD 40 MG DELAYED RELEASE TAB PO SCH (08:27)
[2016-12-25] MEDS: METOPROLOL TARTRATE 50 MG TAB PO SCH ×2 (08:27→21:25)
[2016-12-25] MEDS: BUDESONIDE-FORMOTEROL 160/4.5 MCG INHALER INH SCH ×2 (08:28→21:25)
[2016-12-25] MEDS: SODIUM CHLORIDE 0.9% FLUSH 10 ML FLUSH IV FLUSH SCH ×2 (08:28→21:00)
[2016-12-25] MEDS: NICOTINE 14 MG/24 HR PATCH T-DERMAL SCH (08:28)
[2016-12-25] MEDS: DOCUSATE SODIUM 50 MG/SENNA 8.6 MG TAB PO SCH ×2 (08:28→21:00)
[2016-12-25] MEDS: RESP: ALBUTEROL 2.5 MG/IPRATROPIUM 0.5 MG NEB (SCH) NEB ×5 (08:49→20:03)
[2016-12-25] MEDS: REMOVE OLD PATCH T-DERMAL SCH (09:00)
--- NOTE | 2016-12-25 09:50 | HHI.PR ---
Subjective Remarks No plan for surgery. IV antibiotics for treatment. Essential Tremor is present in this patient. Objective Vital Signs Date Time Temp Pulse Resp B/P (MAP) Pulse Ox O2 Delivery O2 Flow Rate FiO2 12/25/16 08:50 95 21 12/25/16 08:00 97.5 89 18 160/80 (106) 95 12/25/16 00:00 97.9 86 20 167/81 (109) 95 12/24/16 20:33 95 12/24/16 20:00 97.7 94 20 171/82 (111) 96 12/24/16 16:00 97.1 89 18 142/71 (94) 93 12/24/16 12:00 98.2 92 18 137/65 (89) 96 I/O 12/24/16 12/24/16 12/24/16 12/25/16 12/25/16 12/25/16 07:00 15:00 23:00 07:00 15:00 23:00 Intake Total 640 ml Output Total 1000 ml 900 ml 2800 ml Balance -1000 ml -260 ml -2800 ml Intake Oral 640 ml Output Urine Total 1000 ml 900 ml 2800 ml # Bowel Movements 0 Result Diagram: 12/23/16 0641 12/25/16 0635 Objective Remarks GENERAL: NAD, A&Ox3, diffuse tremor HEAD: Normocephalic. NECK: Supple, trachea midline. No lymphadenopathy. EYES: No scleral icterus. No injection or drainage. CARDIOVASCULAR: Regular rate and rhythm without murmurs, gallops, or rubs. RESPIRATORY: Breath sounds equal bilaterally. No accessory muscle use. GASTROINTESTINAL: Abdomen soft, non-tender, nondistended. MUSCULOSKELETAL: No cyanosis, or edema. [id number] amputation of left SKIN: Warm and dry. Sternal surgical scar, abdominal surgical scar NEURO: No focal neurological deficitis. A/P Problem List: (1) Osteomyelitis ICD Code: M86.9 - Osteomyelitis, unspecified Status: Acute (2) Ulcer of amputation stump of lower extremity ICD Code: T87.89 - Other complications of amputation stump; L97.909 - Non- pressure chronic ulcer of unspecified part of unspecified lower leg with unspecified severity Status: Acute (3) Chronic obstructive pulmonary disease ICD Code: J44.9 - Chronic obstructive pulmonary disease, unspecified Status: Chronic (4) COPD (chronic obstructive pulmonary disease) ICD Code: J44.9 - Chronic obstructive pulmonary disease Status: Chronic (5) Hx of BKA ICD Code: Z89.519 - Acquired absence of unspecified leg below knee Status: Acute Assessment and Plan Assessment and Plan 66-year-old male admitted secondary to COPD exacerbation and infection of left lower extremity stump. Propranolol started for essential tremor. Continue IV antibiotics, may need home IV antibiotics at discharge. COPD exacerbation Continue oxygen support Wean systemic steroids Wean systemic steroids Incentive spirometry Continue Robitussin as needed Continue Levaquin Continue nebulized treatments Follow for improvement History of left BKA (April 2016) Osteomyelitis Left lower extremity stump ulcer Peripheral vascular disease Continue Levaquin Vascular surgery following Follow wound culture Essential Tremor Trial of propranolol Hyponatremia Follow and replace as needed Diabetes mellitus type 2 Follow blood sugars Insulin sliding scale Diabetic diet Hypertension Hyperlipidemia Coronary artery disease Paroxysmal A. fib No exacerbations Continue home treatments Follow clinically Supratherapeutic INR Follow INR DVT prevention Patient on Coumadin. Ronald Gallego MD Dec 25, 2016 09:50
[2016-12-25] MEDS: INSULIN ASPART SUPPLEMENTAL SCALE SQ SCH ×4 (09:58→21:00)
[2016-12-25] MEDS: ACETAMINOPHEN/HYDROcodone 325 MG/5 MG TAB PO PRN ×3 (09:59→21:32)
[2016-12-25] MEDS: guaiFENesin/CODEINE SYRUP 200 MG/20 MG/10 ML CUP PO PRN ×3 (09:59→22:46)
[2016-12-25] MEDS ORDERED: PROPRANOLOL HCL 10 MG TAB PO ONE (10:00)
[2016-12-25] MEDS: diphenhydrAMINE HCL 25 MG CAP PO PRN ×3 (10:01→22:47)
--- NOTE | 2016-12-25 11:07 | PD.VS.PN ---
Subjective Subjective/Hospital Course Pt w/o complaints alert in nad Wound stable w/o change No R/D/S present Objective Vitals/I&O Date Time Temp Pulse Resp B/P (MAP) Pulse Ox O2 Delivery O2 Flow Rate FiO2 12/25/16 08:50 95 21 12/25/16 08:00 97.5 89 18 160/80 (106) 95 12/25/16 00:00 97.9 86 20 167/81 (109) 95 12/24/16 20:33 95 12/24/16 20:00 97.7 94 20 171/82 (111) 96 12/24/16 16:00 97.1 89 18 142/71 (94) 93 12/24/16 12:00 98.2 92 18 137/65 (89) 96 12/25/16 12/25/16 12/25/16 07:00 15:00 23:00 Output Total 2800 ml Balance -2800 ml Physical Exam GENERAL: A&OX3, GCS 15 1.5 cm X 0.5 cm Ulceration of the left lateral below-knee amputation stump Site w/o erythema, swelling, odor or pain No cellulitis noted L BKA incision healed LE warm with motor intact Laboratory Laboratory Tests Test 12/25/16 06:35 Prothrombin Time 20.7 Prothromb Time International Ratio 1.8 Creatinine 0.74 Estimat Glomerular Filtration Rate 106 Date/Time Source Procedure Growth Status 12/21/16 22:30 Wound Leg Gram Stain - Final Resulted 12/21/16 22:30 Wound Culture - Preliminary Providencia Rettgeri Group D Enterococcus Resulted Assessment and Plan Assessment: (1) Ulcer of amputation stump of lower extremity Status: Acute (2) Osteomyelitis Status: Acute (3) Chronic obstructive pulmonary disease Status: Chronic (4) PAD (peripheral artery disease) Status: Chronic (5) Tobacco abuse Status: Chronic (6) Hypertension Status: Chronic (7) CAD (coronary artery disease) Status: Chronic (8) DM type 2 (diabetes mellitus, type 2) Status: Chronic (9) Status post below knee amputation of left lower extremity Status: Chronic Plan Minor wound on BKA but does not appear infected. I reviewed the MRI and plain Xray. I think this is a minor wound and based on only the MRI, I would not treat surgically and would maybe give oral antibiotics and local wound care. Will arrange f/u in my clinic in 2 weeks. Will discuss with blender conveyor operator as well. Plan Arranged out patient f/u in 2W Continue wound care heating technician notified and will f/u w/patient once d/c Diana [place] [facility]/[place] [phone] Diana Olivera Dec 25, 2016 11:07
[2016-12-25] MEDS: CLOTRIMAZOLE 1% CREAM 15 GM TOPICAL SCH ×2 (12:35→21:26)
--- NOTE | 2016-12-25 12:48 | HHI.FF ---
Face to Face Verification Diagnosis: (1) CHF (congestive heart failure) (2) DM type 2 (diabetes mellitus, type 2) (3) COPD (chronic obstructive pulmonary disease) (4) CAD (coronary artery disease) (5) Osteomyelitis Physical Therapy Order: Evaluate and Treat Occupational Therapy Order: Evaluate and Treat Home Health Nursing Order: Wound care and dressing changes I have seen patient Guanaco Salcedo on 12/25/16. My clinical findings support the need for the requested home health care services because: Ltd mobility - disease progression Deconditioned w/ increased weakness Limited ability to care for self High risk of falls Infection w/ risk of complications I certify that my clinical findings support that this patient is homebound because: Unsteady gait/balance Unsafe to leave home unassisted Unable to use public transportation Ronald Gallego MD Dec 25, 2016 12:48
--- NOTE | 2016-12-25 14:19 | PD.WCN.NOT ---
Wound Consult Description: Patient seen per request of Vascular Surgery for wound care recommendations for L stump Communicated with: RN [address] [place] [address] Diana Reddy Recommendation: Please paint eschar to L stump with povidone-iodine swabs BID and cover with dry cover dressing Additional Information: Patient seen on for evaluation of L stump wound care recommendations. Patient was seen by Doctor Stuart with podiatry no wound care orders written. Patient seen with Doctor Simi at the bedside for assessment. Patient is noted with stable eschar measuring 1.5cm x 0.5cm to L stump. Wound dry and non draining. Periwound is noted with scar tissue, but otherwise unremarkable. Painted dry intact eschar to L stump with Povidone-Iodine swab and covered with dry cover dressing. Kendy Ashby [facility] Dec 25, 2016 14:19
[2016-12-25] MEDS: LEVOFLOXACIN 750 MG PREMIX INJ 150 ML IV SCH (14:22)
[2016-12-25] MEDS: PROPRANOLOL HCL 10 MG TAB PO SCH ×2 (14:22→21:24)
[2016-12-25] MEDS: WARFARIN SOD 5 MG TAB PO SCH (14:22)
[2016-12-25] MEDS: SODIUM CHLOR 0.9% 1000 ML INJ 1,000 ML IV SCH ×2 (14:24→17:48)
--- NOTE | 2016-12-25 17:02 | PD.CONS ---
History of Present Illness Service Infectious disease Consult Requested By Dr Tere Gallego Reason for Consult Evaluate patient with? Osteomyelitis L BKA stump Primary Care Physician Bere Wood MD Diagnoses: History of Present Illness Patient seen and examined. Records reviewed. Patient is a 66-year-old male, with complex medical history, with significant peripheral vascular disease, had problems with his left foot back in April 2016, ended up initially getting amputation of 2 of his toes, as well as surgical revascularization procedure. He continued to have evidence of ischemia , and subsequently underwent left BKA around the end of April. Patient stated that there was always 1 area on the lateral aspect of his incision that had a scab on it and it was about 1 cm in size. Otherwise the whole surgical incision healed without any problem. Intermittently the scab will come off and then it will form again. Recently probably in the last several months he started using his prostheses and this is usually when he gets his physical therapy. The scab started to coming softer, and he noted some drainage. He smelled the bandage and it was somewhat smelly, and it alarmed him so he presented to the hospital for further evaluation and treatment. He has not really notice any redness on the stump. He has not had any significant worsening of the swelling, no fever or chills or sweats, no worsening of his pain. He presented to the hospital and he was admitted. MRI of the stump is showing some irregularity in his amputation site. There was no evidence of fluid collection. He has been afebrile, and his WBC has been normal. Infectious disease consultation has been requested to evaluate the patient for possible osteomyelitis. Review of Systems Constitutional: DENIES: Fever, Chills, Night Sweats Eyes: DENIES: Eye pain Ears, nose, mouth, throat: DENIES: Oral lesions, Throat pain, Ear Pain, Sinus Pain Respiratory: DENIES: Cough, Shortness of breath Cardiovascular: DENIES: Chest pain, Palpitations, Dyspnea on Exertion Gastrointestinal: DENIES: Abdominal pain, Diarrhea, Nausea, Vomiting, Difficulty Swallowing Genitourinary: DENIES: Urgency, Dysuria Musculoskeletal: DENIES: Joint pain, Joint Swelling Integumentary: DENIES: Rash Neurologic: DENIES: Headache Psychiatric: DENIES: Hallucinations Past Family Social History Allergies: Coded Allergies: cefaclor (Unverified Allergy, Intermediate, rash, 12/21/16) Past Medical History Hypertension Hyperlipidemia Cardiomyopathy Paroxysmal atrial fibrillation Peripheral vascular disease History of GI bleed Diabetes Tobacco abuse Past Surgical History Coronary bypass surgery 3 Left [id number] amputation Arterial bifemoral bypass with multiple angioplasties Femorofemoral bypass Tonsillectomy Cholecystectomy Active Ordered Medications Tylenol Corona Albuterol Aspirin Lipitor Dulcolax Symbicort Benadryl Lasix Neurontin Robitussin-AC Insulin Lactulose Levaquin Glucophage Lopressor Morphine Multivitamin with minerals Nicotine patch Zofran Protonix Prednisone Inderal Shasta-Colace Senokot Aldactone Thiamine Vancomycin Coumadin Family History Family history of cancer Social History Patient still smokes over a pack a cigarettes a day for over 50 years He does drink 3 beers daily. Denies any illicit drugs Physical Exam Vital Signs Vital Signs Date Time Temp Pulse Resp B/P (MAP) Pulse Ox O2 Delivery O2 Flow Rate FiO2 12/25/16 16:00 98.2 81 18 165/83 (110) 94 12/25/16 12:00 97.6 82 18 173/85 (114) 95 12/25/16 08:50 95 21 12/25/16 08:00 97.5 89 18 160/80 (106) 95 12/25/16 00:00 97.9 86 20 167/81 (109) 95 12/24/16 20:33 95 12/24/16 20:00 97.7 94 20 171/82 (111) 96 Physical Exam GENERAL: Patient is a well-nourished, well-developed CM, awake and alert, not in respiratory distress. SKIN: Warm and dry. Has a papular rash on his anterior trunk, ecchymoses in both UE. No rash in between fingers or toes HEAD: Atraumatic. Normocephalic. No temporal wasting, or tenderness. EYES: Cassandra conjunctiva. No petechia or hemorrhage. Pupils equal, round and reactive to light. Extraocular movements full and intact. No scleral icterus. No injection or drainage. EARS, NOSE AND THROAT: Nose without bleeding or purulent nasal discharge. No sinus tenderness. Mucous membranes pink and moist. No oral lesions noted. No exudate. No oral thrush. NECK: Trachea midline. Supple and not tender, no meningeal signs CARDIOVASCULAR: Regular rate and rhythm. No murmurs, rubs or gallops heard RESPIRATORY: Clear to auscultation. Breath sounds equal bilaterally. No rales , wheezing or rhonchi. Healed incisions on chest ABDOMEN: Soft, non-tender, nondistended. Bowel sounds present and normoactive. No guarding. No rebound. No organomegaly. Scars C/W surgical history EXTREMITIES: RLE: has dry skin, has chronic pinck color in foot and leg, no cyanosis, no mottling, warm. LBKA - has well healed incision except one area laterally, there is a dried blood eschar about 1.5 cm, with small amount of very light yellow drainage. There is no swelling of stump, no erythema, no induration no tendernss on palpation of distal stump. No joint effusion, has good ROM. No R calf tenderness. Well perfused and warm. NEUROLOGICAL: Awake and alert. Cranial nerves grossly intact. Motor grossly within normal limits. PSYCHIATRIC: Normal affect, calm and cooperative. LINE: No evidence of infection Laboratory Laboratory Tests Test 12/25/16 06:35 Prothrombin Time 20.7 Prothromb Time International Ratio 1.8 Creatinine 0.74 Estimat Glomerular Filtration Rate 106 Date/Time Source Procedure Growth Status 12/21/16 22:30 Wound Leg Gram Stain - Final Resulted 12/21/16 22:30 Wound Culture - Preliminary Providencia Rettgeri Group D Enterococcus Resulted Result Diagram: 12/23/16 0641 12/25/16 0635 Imaging RADIOLOGY STUDIES/FILMS REVIEWED Lower Extremity MRI 12/22/16 0000 Signed Impressions: Service Date/Time: Thursday, December 22, 2016 17:18 - CONCLUSION: Previous left below knee amputation. Short segment osteomyelitis distally of the tibial remnant as above. Less than 1 cm of the distal bone is involved. No abscess. David Cabezas MD Knee X-Ray 12/21/167 Signed Impressions: Service Date/Time: Wednesday, December 21, 2016 23:32 - CONCLUSION: 1. Below-knee amputation with no acute fracture. 2. Dense atherosclerotic calcification of the regional vasculature. Joel Dhillon MD Femur X-Ray 12/21/162235 Signed Impressions: Service Date/Time: Wednesday, December 21, 2016 22:51 - CONCLUSION: 1. No acute fracture. 2. Dense atherosclerotic calcification of the regional vasculature. Joel Dhillon MD Chest X-Ray 12/21/162046 Signed Impressions: Service Date/Time: Wednesday, December 21, 2016 21:04 - CONCLUSION: No evidence of acute cardiopulmonary disease. Hyperexpanded but clear lungs. Previous CABG. David Cabezas MD Assessment and Plan Assessment and Plan IMPRESSION Clinically no evidence of osteomyelitis LBKA - could have a very localized soft tissue infection where scab is whci is why its taking longer to heal - C/S with Providencia and Enterococcus PVD, S/P bypass, S/P LBKA Apr 2016 RECOMMENDATION Will give short course of oral Abx for local infection under the eschar, may facilitate quicker healing Wound care follow-up to ensure complete healing of his wound D/C IV Abx He is clinically stable to be D/C from ID standpoint Thank you for this consultation Discussed Condition With Discussed the case with Dr Latif Explained plan to the patient Jelly Moralez MD Dec 25, 2016 17:02
[2016-12-25] MEDS: AMOXICILLIN/CLAVULANATE K 500 MG TAB PO SCH ×2 (18:02→21:24)
[2016-12-25] MEDS: ATORVASTATIN 40 MG TAB PO SCH (21:25)
[2016-12-26] VITALS: BP 156/78; PULSE 74; RESP 20; TEMP 97; O2SAT 94
[2016-12-26] MEDS: RESP: ALBUTEROL 2.5 MG/IPRATROPIUM 0.5 MG NEB (SCH) NEB ×5 (00:47→15:45)
[2016-12-26] MEDS: ACETAMINOPHEN/HYDROcodone 325 MG/5 MG TAB PO PRN ×3 (01:30→16:07)
[2016-12-26] MEDS: SODIUM CHLOR 0.9% 1000 ML INJ 1,000 ML IV SCH ×2 (03:48→13:48)
[2016-12-26] MEDS: PROPRANOLOL HCL 10 MG TAB PO SCH ×2 (05:24→12:27)
[2016-12-26] MEDS: AMOXICILLIN/CLAVULANATE K 500 MG TAB PO SCH ×2 (05:24→12:27)
[2016-12-26] MEDS: guaiFENesin/CODEINE SYRUP 200 MG/20 MG/10 ML CUP PO PRN ×2 (05:25→12:29)
[2016-12-26] MEDS: diphenhydrAMINE HCL 25 MG CAP PO PRN ×2 (05:25→12:29)
[2016-12-26 07:39] LABS: BICARBONATE 27.2 MEQ/L (21.0-32.0); POTASSIUM 4.7 MEQ/L (3.5-5.1)
[2016-12-26 08:00] VITALS: BP 184/94; PULSE 73; RESP 17; TEMP 97.1; O2SAT 95
[2016-12-26 08:00] LABS: HEMATOCRIT 30.6 % (39.0-51.0); MEAN CELL VOLUME 98.8 FL (80.0-100.0); MEAN CORPUSCULAR HEMOGLOBIN 34.1 PG (27.0-34.0); MEAN CORPUSCULAR HGB CONC 34.5 % (32.0-36.0); PLATELET COUNT 168 TH/MM3 (150-450); RED BLOOD COUNT 3.09 MIL/MM3 (4.50-5.90); RED CELL DISTRIBUTION WIDTH 14.7 % (11.6-17.2); REVIEW FLAG FINAL; WHITE BLOOD COUNT 7.4 TH/MM3 (4.0-11.0)
[2016-12-26] MEDS: INSULIN ASPART SUPPLEMENTAL SCALE SQ SCH ×3 (08:00→16:09)
[2016-12-26 08:08] VITALS: O2SAT 93
[2016-12-26] MEDS: GABAPENTIN 400 MG CAP PO SCH ×3 (08:22→17:01)
[2016-12-26] MEDS: FUROSEMIDE 20 MG TAB PO SCH (08:22)
[2016-12-26] MEDS: METOPROLOL TARTRATE 50 MG TAB PO SCH (08:22)
[2016-12-26] MEDS: SPIRONOLACTONE 25 MG TAB PO SCH (08:22)
[2016-12-26] MEDS: ASPIRIN EC 81 MG TABEC PO SCH (08:22)
[2016-12-26] MEDS: THIAMINE HCL 100 MG TAB PO SCH (08:23)
[2016-12-26] MEDS: metFORMIN HCL 500 MG TAB PO SCH ×2 (08:23→17:01)
[2016-12-26] MEDS: PANTOPRAZOLE SOD 40 MG DELAYED RELEASE TAB PO SCH (08:23)
[2016-12-26] MEDS: MULTIVITAMINS/MINERALS THERAPEUTIC TAB PO SCH (08:23)
[2016-12-26] MEDS: SODIUM CHLORIDE 0.9% FLUSH 10 ML FLUSH IV FLUSH SCH (08:23)
[2016-12-26] MEDS: NICOTINE 14 MG/24 HR PATCH T-DERMAL SCH (08:24)
[2016-12-26] MEDS: REMOVE OLD PATCH T-DERMAL SCH (08:24)
[2016-12-26] MEDS: BUDESONIDE-FORMOTEROL 160/4.5 MCG INHALER INH SCH (08:27)
[2016-12-26] MEDS: DOCUSATE SODIUM 50 MG/SENNA 8.6 MG TAB PO SCH (08:27)
[2016-12-26] MEDS: CLOTRIMAZOLE 1% CREAM 15 GM TOPICAL SCH (08:27)
[2016-12-26] MEDS ORDERED: PHARMACY ORDERED LAB ONE (08:45)
[2016-12-26] MEDS ORDERED: predniSONE 5 MG TAB PO SCH (09:00)
[2016-12-26] MEDS ORDERED: BENA25CA4 PO (11:06)
[2016-12-26] MEDS ORDERED: HYDR-3366 PO (11:06)
[2016-12-26] MEDS ORDERED: LACTTAB8 PO (11:06)
[2016-12-26] MEDS ORDERED: PROP10TA6 PO (11:06)
[2016-12-26] MEDS ORDERED: guaiFEN-COD 200-20 MG/10ML LIQ PO (11:06)
[2016-12-26] MEDS ORDERED: LEVA750T9 PO (11:06)
[2016-12-26] MEDS ORDERED: PRED5TAB PO (11:06)
--- NOTE | 2016-12-26 11:11 | HHI.DS ---
Discharge Summary Admission Date Dec 24, 2016 at 09:00 Discharge Date: Dec 26, 2016 Admitting Diagnosis cellulitis left lower leg, hyponatremia (1) Stasis ulcer of left lower extremity ICD Code: I83.029 - Varicose veins of left lower extremity with ulcer of unspecified site Diagnosis: Principal (2) Hyponatremia ICD Code: E87.1 - Hypo-osmolality and hyponatremia Diagnosis: Secondary Status: Acute (3) Chronic obstructive pulmonary disease ICD Code: J44.9 - Chronic obstructive pulmonary disease, unspecified Diagnosis: Principal Status: Chronic (4) Osteomyelitis ICD Code: M86.9 - Osteomyelitis, unspecified Diagnosis: Secondary Status: Acute Procedures None Brief History - From Admission Written by Umair Osborn, acting as scribe for Dr. Willis on 12/22/16 at 15:56. 66 year-old male with rather complex medical history of chronic wound of his left lower extremity, peripheral vascular disease, hypertension, hyperlipidemia, coronary artery disease, chronic affective pulmonary disease, chronic smoker, chronic respiratory failure, atrial fibrillation, diabetes who presented to hospital because of foul smell coming from his left lower extremity stump wound. Patient had a rather extensive hospitalization in April 2016 in which she did undergo left [id number] amputation by Dr. Garcia, the patient was not very giving with information and would not let me know if he ever had follow-up with Dr. Garcia after his surgery and discharge from the hospital. He denies any extensive wound care. Patient states that he has had this chronic wound ever since he had the surgery. In over the last 34 days it is had increased smell and he thinks there has been some exudative material. Patient denies any fever, chills, significant erythema, significant pain. Patient came to emergency department for evaluation. Patient had workup done and did not indicate any signs of sepsis, leukocytosis, significant signs of infection. Imaging study was performed which did not indicate any acute abnormality. Upon evaluating patient patient appears to look very ill, he could not stop coughing, seems to have significant trouble breathing with respiratory insufficiency. He could actually hear his wheezing from standing next to him. Patient does have significant chronic obstructive pulmonary disease, he still continues to smoke. He states he does have a nebulizer at home, however he only uses inhalers. He states that he uses oxygen whenever he needs it, however he has not forthcoming if he has oxygen at home or not. At the present time patient is a significant respiratory issues which requires hospitalization for management. CBC/BMP: 12/26/16 0505 12/26/16 0505 Significant Findings Laboratory Tests Test 12/23/16 21:30 12/24/16 05:50 12/25/16 06:35 12/26/16 05:05 Vancomycin Level Trough 11.5 MCG/ML (5.0-10.0) Prothrombin Time 20.9 SEC (9.8-11.6) 20.7 SEC (9.8-11.6) Red Blood Count 3.09 MIL/MM3 (4.50-5.90) Hemoglobin 10.5 GM/DL (13.0-17.0) Hematocrit 30.6 % (39.0-51.0) Mean Corpuscular Hemoglobin 34.1 PG (27.0-34.0) Random Glucose 108 MG/DL (74-106) Calcium Level 8.2 MG/DL (8.5-10.1) Sodium Level 131 MEQ/L (136-145) Chloride Level 97 MEQ/L (98-107) PE at Discharge GENERAL: Well-developed, well-nourished, patient appears to be with significant coughing and respiratory distress. alert and orientated HEENT: Head is normocephalic without any lesions or masses noted. Facial features are symmetric. Eyes: Pupils equal round reactive to light. Extraocular muscles are intact. Conjunctivae were clear. Oropharyngeal: Pharynx without any erythema edema. Tongue is midline without deviation. Buccal mucosa is moist without any masses or lesions NECK: Supple without any masses. Trachea midline no deviation. No JVD, no bruits are appreciated CARDIAC: Regular rhythm, regular rate. S1/S2 are heard. No murmurs gallops or rubs. LUNGS: Decreased breath sounds with some rhoncho BL, however wheezing previously noted has resolved. ABDOMEN: Soft, nontender. Nondistended. Bowel sounds heard in all 4 quadrants. No organomegaly or masses. Negative rebound, negative guarding EXTREMITIES: No edema, pulses are equal bilaterally. No cyanosis or clubbing. Left BKA NEUROLOGY: Mood and affect appear appropriate. Cranial nerves II through XII grossly intact. Muscle strength 5/5 in upper and lower extremities bilaterally. Deep tendon reflexes are 2+ in upper and lower extremities bilaterally. LEFT LOWER EXTREMITY: Patient does have a 1 cm area noted on the medial aspect of his stump. He has clear edges which appeared nice and pink. Mild tenderness noted inferior to the lesion. With hard palpation could express some exudate. Hospital Course Mr. Salcedo is a 66-year-old male. He was admitted secondary to COPD exacerbation. He also complained of foul odor at a left stump ulcer. MRI showed evidence of also mellitus. He had no elevated white blood cell count at any point. Findings have been reviewed by vascular surgery infectious disease at this point in no infection is suspected. Continuation of Levaquin to cover his COPD exacerbation. Presently a COPD exacerbation is resolved and his eating is back to baseline. He will discharge home with home health to monitor stump ulcer and home PT to continue physical therapy. Medically stable for discharge home today. Other treatments he has been started on Benadryl for rash that she got at home by using a different laundry detergent. Robitussin and Levaquin probiotics in regards to his COPD. Propanolol was started for essential tremor, at a low-dose. One week's worth of pain treatments are provided. Pt Condition on Discharge: Stable Discharge Disposition: Disch w/ Home Health Serv Discharge Time: > 30 minutes Discharge Instructions DIET: Follow Instructions for: As Tolerated, No Restrictions Activities you can perform: Regular-No Restrictions Follow up Referrals: PCP Follow-up - 1 Week Vascular Surgery @ Vascular Surgery with Saúl Latif MD New Medications: Lactobacillus Acidophilus (Lactobacillus Acidophilus) 1 Billion Cell Tab 1 TAB PO TIDAC for Nutritional Supplement, #30 TAB 0 Refills Levofloxacin (Levaquin) 750 Mg Tablet 750 MG PO DAILY for Infection, #5 TAB 0 Refills Diphenhydramine HCl (Benadryl Allergy) 25 Mg Cap 25 MG PO Q6H PRN for itching, #30 CAP Prednisone (Prednisone) 5 Mg Tab 5 MG PO DAILY for Inflammation, #4 TAB Propranolol (Propranolol) 10 Mg Tab 10 MG PO Q8HR PRN for TREMULOUSNESS, #90 TAB [guaiFEN-COD 200-20 MG/10ML LIQ] () 10 ML SYRP 10 ML PO Q6H PRN for COUGH, #200 ML Changed Medications: Hydrocodone-Acetaminophen (Peck) 10-325 Mg Tab 1-2 TAB PO Q6HR PRN for Pain, #20 TAB 0 Refills (Changed from: Q4H; 120) Continued Medications: Albuterol 18 GM Inh (Ventolin Hfa 18 GM Inh) 90 Mcg/Act Aer 2 PUFF INH Q4-6H PRN for SHORTNESS OF BREATH, #1 INHALER [address] (Aspirin EC) 81 Mg Tabdr 81 MG PO DAILY, #30 TAB 1 Refill Atorvastatin (Atorvastatin) 40 Mg Tab 40 MG PO HS for Cholesterol Management, #30 TAB 6 Refills Budesonide-Formoterol Inh (Symbicort Inh) 160-4.5 Mcg/Act Aero 2 PUFF INH Q12HR, #1 INHALER 1 Refill Clotrimazole Topical (Clotrimazole Anti-Fungal Topical) 1% Cream 1 APPLIC TOPICAL Q12HR for 10 Days, TUBE 0 Refills Furosemide (Lasix) 20 Mg Tab 20 MG PO DAILY, #30 TAB 1 Refill Gabapentin (Gabapentin) 800 Mg Tab 800 MG PO TID, #90 TAB 1 Refill Ipratropium-Albuterol Neb (Duoneb) 0.5-2.5 Mg/3 Ml Neb 1 AMPULE NEB Q8HR NEB PRN for SHORTNESS OF BREATH, #90 ML 1 Refill Metformin (Glucophage) 500 Mg Tab 500 MG PO BIDPC for Blood Sugar Management, #60 TAB 1 Refill With meals Metoprolol Tartrate (Metoprolol Tartrate) 50 Mg Tab 50 MG PO BID, #60 TAB 1 Refill Multiple Vitamins W/ Minerals (Thera M Plus) 1 Tab 1 TAB PO DAILY for Nutritional Supplement, #30 TAB 1 Refill Pantoprazole (Protonix) 40 Mg Tab 40 MG PO DAILY for Reflux, #30 TAB 6 Refills Spironolactone (Spironolactone) 25 Mg Tab 25 MG PO DAILY, #30 TAB 6 Refills Thiamine (Vitamin B-1) 100 Mg Tab 100 MG PO DAILY for Nutritional Supplement, TAB 0 Refills Warfarin (Warfarin) 5 Mg Tab 5 MG PO DAILY for Blood Clot Prevention, #30 TAB 1 Refill Ronald Gallego MD Dec 26, 2016 11:11
[2016-12-26 12:00] VITALS: BP 181/84; PULSE 76; RESP 17; TEMP 98.3; O2SAT 95
[2016-12-26 16:00] VITALS: BP 154/82; PULSE 86; RESP 17; TEMP 97.6; O2SAT 94
[2016-12-26] MEDS: WARFARIN SOD 5 MG TAB PO SCH (16:07)
[2017-01-14] MEDS ORDERED: METO50TA PO (13:07)
[2017-01-14] MEDS ORDERED: WARF-23 PO (13:07)
[2017-01-14] MEDS ORDERED: VENTAER INH (13:07)
[2017-01-24] MEDS ORDERED: METF500 PO (17:10)
== END 2016-12-26 17:12 | disposition home health service (06) | DRG 191 ==
LOC: PHED 19:21 → PHEDA 12-22 00:04 → PH3A 12-22 01:11 → N07B 12-23 18:59 → OBSVTOIN 12-24 09:00
PROVIDERS: ADMIT Hospitalist; ATTEND Hospitalist
DX: J44.1 Chronic obstructive pulmonary disease with (acute) exacerbation (principal); I42.9 Cardiomyopathy, unspecified; J96.10 Chronic respiratory failure, unspecified whether with hypoxia or hypercapnia; E11.51 Type 2 diabetes mellitus with diabetic peripheral angiopathy without gangrene; E11.622 Type 2 diabetes mellitus with other skin ulcer; M86.9 Osteomyelitis, unspecified; I50.9 Heart failure, unspecified; I11.0 Hypertensive heart disease with heart failure; I48.0 Paroxysmal atrial fibrillation; E87.1 Hypo-osmolality and hyponatremia; G25.0 Essential tremor; L97.829 Non-pressure chronic ulcer of other part of left lower leg with unspecified severity; F17.210 Nicotine dependence, cigarettes, uncomplicated; I25.10 Atherosclerotic heart disease of native coronary artery without angina pectoris; M19.90 Unspecified osteoarthritis, unspecified site; E78.5 Hyperlipidemia, unspecified; F41.9 Anxiety disorder, unspecified; I87.2 Venous insufficiency (chronic) (peripheral); F32.9 Major depressive disorder, single episode, unspecified; E11.69 Type 2 diabetes mellitus with other specified complication; T87.89 Other complications of amputation stump; G47.30 Sleep apnea, unspecified; Z79.4 Long term (current) use of insulin; Z79.84 Long term (current) use of oral hypoglycemic drugs; Z79.82 Long term (current) use of aspirin; Z79.01 Long term (current) use of anticoagulants; Z79.52 Long term (current) use of systemic steroids; Z95.1 Presence of aortocoronary bypass graft; Z85.828 Personal history of other malignant neoplasm of skin; Z86.73 Personal history of transient ischemic attack (TIA), and cerebral infarction without residual deficits; Z95.820 Peripheral vascular angioplasty status with implants and grafts; Z89.512 Acquired absence of left leg below knee; R21 Rash and other nonspecific skin eruption
CPT/HCPCS: 36600; 71020; 73552; 73560; 73720; 80048; 80053; 80202; 81001; 82565; 82805; 82948; 83735; 83880; 84484; 85025; 85027; 85610; 86403; 87070; 87077; 87186; 87205; 93005; 94150; 94640; 94664; 96361; 96365; 96366; 96367; 96372; 96375; 96376; A9579; G0378; J1815; J1956; J2060; J2920; J3370; J7030; J7040; J7512

== ENCOUNTER → 2017-02-06 | Outpatient (CLI) | payer MEDICARE, OTHER ==
[~2017-02-06] MED LIST changes: +BENA25CA4 PO; -COLA100C3 PO; +LACTTAB8 PO; +LEVA750T9 PO; +PRED20 PO; +PRED5TAB PO; +PROP10TA6 PO; +WARF-20 PO; +WARF4TAB52 PO; +guaiFEN-COD 200-20 MG/10ML LIQ PO
[2017-02-06 15:55] LABS: AUTOMATED NEUTROPHIL # 3.1 TH/MM3 (1.8-7.7); BASOPHIL % 0.9 % (0.0-2.0); EOSINOPHIL # 0.2 TH/MM3 (0-0.4); HEMATOCRIT 35.5 % (39.0-51.0); LYMPH % 19.4 % (9.0-44.0); LYMPHOCYTE # 0.9 TH/MM3 (1.0-4.8); MEAN CELL VOLUME 99.9 FL (80.0-100.0); MEAN CORPUSCULAR HEMOGLOBIN 33.8 PG (27.0-34.0); MEAN CORPUSCULAR HGB CONC 33.8 % (32.0-36.0); MEAN PLATELET VOLUME 8.3 FL (7.0-11.0); MONO % 11.5 % (0.0-8.0); MONOCYTE # 0.6 TH/MM3 (0-0.9); NEUT % 64.2 % (16.0-70.0); PLATELET COUNT 159 TH/MM3 (150-450); RED BLOOD COUNT 3.56 MIL/MM3 (4.50-5.90); RED CELL DISTRIBUTION WIDTH 16.2 % (11.6-17.2); WHITE BLOOD COUNT 4.8 TH/MM3 (4.0-11.0)
[2017-02-06 16:05] LABS: ALBUMIN 3.5 GM/DL (3.4-5.0); AST (GOT) 16 U/L (15-37); BICARBONATE 26.8 MEQ/L (21.0-32.0); BLOOD UREA NITROGEN 6 MG/DL (7-18); CALCIUM 9.1 MG/DL (8.5-10.1); CHLORIDE 91 MEQ/L (98-107); CHOLESTEROL 114 MG/DL (120-200); CREATININE 0.59 MG/DL (0.60-1.30); GLOMERULAR FILTRATION RATE 138 ML/MIN (>89); GLUCOSE,FASTING 103 MG/DL (74-99); MAGNESIUM 1.6 MG/DL (1.5-2.5); SODIUM (NA) 126 MEQ/L (136-145); TRIGLYCERIDES 42 MG/DL (42-150)
[2017-02-06 16:30] LABS: ALKALINE PHOSPHATASE 68 U/L (45-117); ALT (GPT) 19 U/L (12-78); CHOLESTEROL/ HDL RATIO 1.38 RATIO; HDL CHOLESTEROL 82.1 MG/DL (40.0-60.0); LDL CHOLESTEROL 24 MG/DL (0-99); TOTAL BILIRUBIN ADULT 0.4 MG/DL (0.2-1.0)
[2017-02-06 19:25] LABS: HEMOGLOBIN A1C 5.4 % (4.3-6.0)
== END ==
LOC: PLAB 12:06
PROVIDERS: ATTEND Physician Assistant Medical
DX: I48.0 Paroxysmal atrial fibrillation (principal); I10 Essential (primary) hypertension; E11.8 Type 2 diabetes mellitus with unspecified complications; E78.5 Hyperlipidemia, unspecified; G62.9 Polyneuropathy, unspecified
CPT/HCPCS: 36415; 80053; 80061; 82607; 83036; 83735; 85025

== ENCOUNTER 2017-03-29 10:27 | Inpatient (IN) | payer MEDICARE, OTHER ==
[2017-03-29] VITALS (13 sets, daily range): BP systolic 130–175; BP diastolic 64–94; PULSE 76–96; RESP 18–28; TEMP 98.2–99; O2SAT 87–100
[~2017-03-29] VITALS: Ht 170.2 cm; Wt 86.0 kg
[~2017-03-29 10:27] MED LIST changes: -ASPI81TA11 PO; +ASPI81TA23 PO; +LEVO750T3 PO; +LINE1TAB PO; -PRED5TAB PO; -PROP10TA6 PO
[2017-03-29] MEDS ORDERED: WARF-20 PO (10:50)
[2017-03-29] MEDS ORDERED: methylPREDNISolone SOD SUCC 125 MG/2 ML VIAL IV PUSH ONE (11:00)
[2017-03-29] MEDS ORDERED: SODIUM CHLORIDE 0.9% FLUSH 10 ML FLUSH IVF PRN (11:00)
[2017-03-29 11:10] LABS: AUTOMATED NEUTROPHIL # 6.1 TH/MM3 (1.8-7.7); BASOPHIL # 0.1 TH/MM3 (0-0.2); BASOPHIL % 0.8 % (0.0-2.0); EOSINOPHIL # 0.2 TH/MM3 (0-0.4); HEMATOCRIT 39.5 % (39.0-51.0); HEMOGLOBIN 13.8 GM/DL (13.0-17.0); LYMPH % 8.4 % (9.0-44.0); LYMPHOCYTE # 0.6 TH/MM3 (1.0-4.8); MEAN CELL VOLUME 97.4 FL (80.0-100.0); MEAN CORPUSCULAR HGB CONC 34.9 % (32.0-36.0); MEAN PLATELET VOLUME 8.6 FL (7.0-11.0); MONO % 8.5 % (0.0-8.0); MONOCYTE # 0.6 TH/MM3 (0-0.9); NEUT % 79.3 % (16.0-70.0); PLATELET COUNT 203 TH/MM3 (150-450); RED BLOOD COUNT 4.05 MIL/MM3 (4.50-5.90); RED CELL DISTRIBUTION WIDTH 14.2 % (11.6-17.2); WHITE BLOOD COUNT 7.7 TH/MM3 (4.0-11.0)
[2017-03-29 11:16] LABS: INTERNATIONAL NORMALIZED RATIO 5.1 RATIO; PROTHROMBIN TIME - PATIENT 51.5 SEC (9.8-11.6)
[2017-03-29 11:32] LABS: ALBUMIN 3.8 GM/DL (3.4-5.0); ALKALINE PHOSPHATASE 76 U/L (45-117); ALT (GPT) 13 U/L (12-78); AST (GOT) 21 U/L (15-37); BICARBONATE 28.4 MEQ/L (21.0-32.0); BLOOD UREA NITROGEN 7 MG/DL (7-18); CALCIUM 8.7 MG/DL (8.5-10.1); CHLORIDE 85 MEQ/L (98-107); CREATININE 0.76 MG/DL (0.60-1.30); GLOMERULAR FILTRATION RATE 103 ML/MIN (>89); GLUCOSE,RANDOM 222 MG/DL (74-106); TOTAL BILIRUBIN ADULT 0.4 MG/DL (0.2-1.0); TOTAL PROTEIN 7.5 GM/DL (6.4-8.2); TROPONIN I LESS THAN 0.02 NG/ML (0.02-0.05)
[2017-03-29 11:35] LABS: SODIUM (NA) 120 MEQ/L (136-145)
[2017-03-29] MEDS: RESP: ALBUTEROL 2.5 MG/IPRATROPIUM 0.5 MG NEB (SCH) INH ×5 (11:48→20:33)
--- NOTE | 2017-03-29 12:21 | RADRPT ---
EXAM DATE/TIME: 03/29/2017 11:10 [facility] COMPARISON: No previous studies available for comparison. INDICATIONS : Right rib pain after a fall. Shortness of breath MEDICAL HISTORY : Chronic obstructive pulmonary disease. Congestive heart failure. SURGICAL HISTORY : Cholecystectomy. CABG. Abdominal aortic aneurysm repair. Left below knee ENCOUNTER: Initial ACUITY: 1 day PAIN SCORE: 10/10 LOCATION: Right Ribs FINDINGS: Multiple views of the right ribs were performed. There is no evidence of displaced fracture. No florina tructive lesions or areas of periosteal thickening are seen. Expiratory view of the chest is negativ e for pneumothorax. The mediastinal structures are midline. Median sternotomy wires and coronary mar kers. Heart is normal in size. CONCLUSION: No acute abnormality. Ricki Metzger Jr., MD on March 29, 2017 at 12:18 Board Certified Radiologist. This report was verified electronically.
[2017-03-29] MEDS ORDERED: IOHEXOL 350 MG/ML 10 ML VIAL (for RAD DIAG) IVCONTRAST ONE (12:32)
--- NOTE | 2017-03-29 12:40 | RADRPT ---
EXAM DATE/TIME: 03/29/2017 12:12 [facility] COMPARISON: CT BRAIN W/O CONTRAST, January 24, 2016, 13:55. INDICATIONS : Fall yesterday. RADIATION DOSE: 56.35 CTDIvol (mGy) MEDICAL HISTORY : Cerebrovascular disease. Seizures. Diabetes mellitus type 2.Cardiac disease. SURGICAL HISTORY : None. ENCOUNTER: Initial ACUITY: 1 day PAIN SCALE: 6/10 LOCATION: cranial TECHNIQUE: Multiple contiguous axial images were obtained of the head. Using automated exposure control and adj ustment of the mA and/or kV according to patient size, radiation dose was kept as low as reasonably a chievable to obtain optimal diagnostic quality images. DICOM format image data is available electro nically for review and comparison. FINDINGS: CEREBRUM: Prominent cerebral atrophy out of portion to age. The ventricles are normal for degree of atrophy. N o evidence of midline shift, mass lesion, hemorrhage or acute infarction. No extra-axial fluid colle ctions are seen. POSTERIOR FOSSA: The cerebellum and brainstem are intact. The 4th ventricle is midline. The cerebellopontine angle i s unremarkable. EXTRACRANIAL: The visualized portion of the orbits is intact. SKULL: The calvaria is intact. No evidence of skull fracture. CONCLUSION: 1. Stable prominence or atrophy out of proportion to age. 2. No acute intracranial abnormality. Steve Barajas MD on March 29, 2017 at 12:35 Board Certified Radiologist. This report was verified electronically.
--- NOTE | 2017-03-29 12:51 | RADRPT ---
EXAM DATE/TIME: 03/29/2017 12:16 [facility] COMPARISON: CT ABDOMEN & PELVIS W CONTRAST, March 23, 2014, 19:21. INDICATIONS : Fall yesterday, upper abdominal pain. IV CONTRAST: 97 cc Omnipaque 350 (iohexol) IV ORAL CONTRAST: No oral contrast ingested. RADIATION DOSE: 9.39 CTDIvol (mGy) MEDICAL HISTORY : Cardiovascular disease. Cerebrovascular disease. Hypertension.Cardiac. Diabetes. SURGICAL HISTORY : None. ENCOUNTER: Initial ACUITY: 1 day PAIN SCALE: 6/10 LOCATION: Left upper quadrant TECHNIQUE: Volumetric scanning of the abdomen and pelvis was performed. Using automated exposure control and ad justment of the mA and/or kV according to patient size, radiation dose was kept as low as reasonably achievable to obtain optimal diagnostic quality images. DICOM format image data is available electro nically for review and comparison. FINDINGS: LOWER LUNGS: Small granuloma at the right lung base. LIVER: Homogeneous density without lesion. There is no dilation of the biliary tree. No calcified gallston es. SPLEEN: Small calcified granulomas in the spleen. Spleen is otherwise unremarkable without evidence for acute traumatic injury. PANCREAS: Within normal limits. KIDNEYS: Kidneys are symmetrical in size and demonstrate symmetrical enhancement. There is redemonstration of multiple bilateral subcentimeter hypodense cystic lesions which are too small to fully characterize b ut are essentially unchanged from prior exam. No hydronephrosis. Small punctate calculus in the poste rior superior right upper pole calyx. ADRENAL GLANDS: Within normal limits. VASCULAR: There is a patent aortobifemoral bypass. Knik intra-abdominal aorta and iliac arteries are occluded . BOWEL/MESENTERY: The stomach, small bowel, and colon demonstrate no acute abnormality. Appendix is unremarkable. There is no free intraperitoneal air or fluid. ABDOMINAL WALL: Within normal limits. RETROPERITONEUM: There is no lymphadenopathy. BLADDER: Mildly distended but otherwise unremarkable. REPRODUCTIVE: Nonspecific prominence of the prostate gland which contains coarse calcifications. INGUINAL: Small left inguinal subcutaneous collection likely chronic postoperative hematoma. MUSCULOSKELETAL: Within normal limits for patient age. CONCLUSION: 1. No acute traumatic abnormality in the abdomen or pelvis. 2. Stable ancillary findings, as above. Steve Barajas MD on March 29, 2017 at 12:41 Board Certified Radiologist. This report was verified electronically.
--- NOTE | 2017-03-29 13:28 | PD ---
HPI Chief Complaint: Respiratory Symptoms Time Seen by Provider: 10:41 Travel History International Travel<30 days: No Contact w/Intl Traveler<30days: No Traveled to known affect area: No History of Present Illness HPI Patient is a 66 year old male who comes in complaining of shortness of breath and pain to the right ribs. He says he fell out of his wheelchair two day ago and since then has been having pain and increasing shortness of breath. He has history of COPD and is still smoking. He has been using his albuterol with some relief. He went to his wound care appointment today and was told to come to the ED for these symptoms. He denies fever or chills. He denies any increased cough. He has not taken anything for pain. PFSH Past Medical History Hx Anticoagulant Therapy: Yes Arthritis: Yes Asthma: No Autoimmune Disease: No Anxiety: Yes Depression: Yes Heart Rhythm Problems: Yes Cancer: Yes (skin cancer LEFT WRIST) Cardiac Catheterization: Yes (CAD) Cardiovascular Problems: Yes High Cholesterol: Yes Chemotherapy: No Chest Pain: Yes Congestive Heart Failure: Yes COPD: Yes Cerebrovascular Accident: Yes Diabetes: Yes Patient Takes Glucophage: Yes Diminished Hearing: No Endocrine: Yes Gastrointestinal Disorders: Yes GERD: No Genitourinary: Yes Headaches: No Hiatal Hernia: No Hypertension: Yes Immune Disorder: No Implanted Vascular Access Dvce: No Kidney Stones: Yes (25+ years ago) Musculoskeletal: Yes Neurologic: Yes Psychiatric: Yes Reproductive: No Respiratory: Yes Immunizations Current: Yes Migraines: No Myocardial Infarction: No (bypass) Radiation Therapy: No Renal Failure: No Seizures: Yes (as a child) Sickle Cell Disease: No Sleep Apnea: Yes (noncompliant) Thyroid Disease: No Ulcer: No Influenza Vaccination: No PNEUMOCCOCAL Vaccine (Year): 1 Past Surgical History Abdominal Surgery: Yes (aortic aneurysm repair) AICD: No Arteriovenous Shunt: No Cardiac Surgery: Yes (CABG x4 Mar 2014) Coronary Artery Bypass Graft: Yes Ear Surgery: No Endocrine Surgery: No Eye Surgery: No Genitourinary Surgery: No Gynecologic Surgery: No Insulin Pump: No Joint Replacement: No Neurologic Surgery: No Oral Surgery: No Pacemaker: No Thoracic Surgery: Yes Other Surgery: Yes (SKIN CANCER REMOVED) Social History Alcohol Use: Yes (2-6 BEERS DAILY) Tobacco Use: Yes (A LITTLE MORE THAN ONE PPD) Substance Use: No Allergies-Medications (Allergen,Severity, Reaction): Coded Allergies: cefaclor (Unverified Allergy, Intermediate, rash, 03/29/17) Reported Meds & Prescriptions Reported Meds & Active Scripts Active Linezolid 600 Mg Tab 600 Mg PO Q12H Levofloxacin 750 Mg Tablet 750 Mg PO DAILY Spironolactone 25 Mg Tab 25 Mg PO DAILY Atorvastatin (Atorvastatin Calcium) 40 Mg Tab 40 Mg PO HS Protonix (Pantoprazole Sodium) 40 Mg Tab 40 Mg PO DAILY Duoneb (Ipratropium-Albuterol Neb) 0.5-2.5 Mg/3 Ml Neb 1 Ampule NEB Q6HR PRN Glucophage (Metformin HCl) 500 Mg Tab 500 Mg PO BIDPC With meals Ventolin Hfa 18 GM Inh (Albuterol Sulfate) 90 Mcg/Act Aer 2 Puff INH Q4-6H PRN Metoprolol Tartrate 50 Mg Tab 50 Mg PO BID Levaquin (Levofloxacin) 750 Mg Tablet 750 Mg PO DAILY Benadryl Allergy (Diphenhydramine HCl) 25 Mg Cap 25 Mg PO Q6H PRN Gabapentin 800 Mg Tab 800 Mg PO TID Lasix (Furosemide) 20 Mg Tab 20 Mg PO DAILY Clotrimazole Anti-Fungal Topical (Clotrimazole) 1% Cream 1 Applic TOPICAL Q12HR 10 Days Symbicort Inh (Budesonide/Formoterol Fumarate) 160-4.5 Mcg/Act Aero 2 Puff INH Q12HR Aspirin EC (Aspirin) 81 Mg Tabdr 81 Mg PO DAILY Thera M Plus (Multivitamins/Minerals Therapeutic) 1 Tab 1 Tab PO DAILY Bedside Commode (Device) 1 Mis Mis 1 Ea .ROUTE DIRECTED Walker Rolling/GetGo (Device) 1 Mis Mis 1 Ea .ROUTE DIRECTED Reported Warfarin 4 Mg Tab 4.5 Mg PO DAILY Vitamin B-1 (Thiamine HCl) 100 Mg Tab 100 Mg PO DAILY Review of Systems Except as stated in HPI: all other systems reviewed are Neg General / Constitutional: No: Fever, Chills HENT: No: Headaches, Lightheadedness Respiratory: Positive: Shortness of Breath, Wheezing Gastrointestinal: No: Nausea, Vomiting Musculoskeletal: Positive: Pain Skin: No Rash Neurologic: No: Weakness, Dizziness Physical Exam Narrative GENERAL: awake and alert, in no acute distress. SKIN: Focused skin assessment warm/dry. HEAD: Atraumatic. Normocephalic. EYES: Pupils equal and round. No scleral icterus. ENT: Mucous membranes pink and moist. NECK: Trachea midline. No JVD. CARDIOVASCULAR: Regular rate and rhythm. No murmur appreciated. Bruising to the right lower ribs, tender to palpation. RESPIRATORY: No accessory muscle use. wheezing throughout both lungs. Breath sounds equal bilaterally. GASTROINTESTINAL: Abdomen soft, non-tender, nondistended. Bruising to the right side of the abdomen. MUSCULOSKELETAL: No obvious deformities. No clubbing. No cyanosis. No edema. NEUROLOGICAL: Awake and alert. No obvious cranial nerve deficits. Motor grossly within normal limits. Normal speech. PSYCHIATRIC: Appropriate mood and affect; insight and judgment normal. Data Data Last Documented VS Vital Signs Date Time Temp Pulse Resp B/P (MAP) Pulse Ox O2 Delivery O2 Flow Rate FiO2 03/29/17 13:28 78 22 130/64 (86) 100 Nasal Cannula 3.00 03/29/17 10:31 98.2 Orders Orders Complete Blood Count With Diff (03/29/17 10:50) Comprehensive Metabolic Panel (03/29/17 10:50) Act Partial Throm Time (Ptt) (03/29/17 10:50) Prothrombin Time / Inr (Pt) (03/29/17 10:50) Troponin I (03/29/17 10:50) Iv Access Insert/Monitor (03/29/17 10:50) Electrocardiogram (03/29/17 10:50) Ecg Monitoring (03/29/17 10:50) Oximetry (03/29/17 10:50) Oxygen Administration (03/29/17 10:50) Sodium Chloride 0.9% Flush (Ns Flush) (03/29/17 11:00) Methylprednisolone So Succ Inj (Solumedr (03/29/17 11:00) Albuterol-Ipratropium Neb (Duoneb Neb) (03/29/17 11:00) Ribs, Uni (W/Exp Cxr-Min 3vw) (03/29/17 ) Ct Abd/Pel W Iv Contrast(Rout) (03/29/17 ) Ct Brain W/O Iv Contrast(Rout) (03/29/17 ) Iohexol 350 Inj (Omnipaque 350 Inj) (03/29/17 12:32) Admit Order (Ed Use Only) (03/29/17 ) Labs Laboratory Tests Test 03/29/17 10:55 White Blood Count 7.7 TH/MM3 Red Blood Count 4.05 MIL/MM3 Hemoglobin 13.8 GM/DL Hematocrit 39.5 % Mean Corpuscular Volume 97.4 FL Mean Corpuscular Hemoglobin 34.0 PG Mean Corpuscular Hemoglobin Concent 34.9 % Red Cell Distribution Width 14.2 % Platelet Count 203 TH/MM3 Mean Platelet Volume 8.6 FL Neutrophils (%) (Auto) 79.3 % Lymphocytes (%) (Auto) 8.4 % Monocytes (%) (Auto) 8.5 % Eosinophils (%) (Auto) 3.0 % Basophils (%) (Auto) 0.8 % Neutrophils # (Auto) 6.1 TH/MM3 Lymphocytes # (Auto) 0.6 TH/MM3 Monocytes # (Auto) 0.6 TH/MM3 Eosinophils # (Auto) 0.2 TH/MM3 Basophils # (Auto) 0.1 TH/MM3 CBC Comment DIFF FINAL Differential Comment Prothrombin Time 51.5 SEC Prothromb Time International Ratio 5.1 RATIO Activated Partial Thromboplast Time 45.1 SEC Blood Urea Nitrogen 7 MG/DL Creatinine 0.76 MG/DL Random Glucose 222 MG/DL Total Protein 7.5 GM/DL Albumin 3.8 GM/DL Calcium Level 8.7 MG/DL Alkaline Phosphatase 76 U/L Aspartate Amino Transf (AST/SGOT) 21 U/L Alanine Aminotransferase (ALT/SGPT) 13 U/L Total Bilirubin 0.4 MG/DL Sodium Level 120 MEQ/L Potassium Level 4.5 MEQ/L Chloride Level 85 MEQ/L Carbon Dioxide Level 28.4 MEQ/L Anion Gap 7 MEQ/L Estimat Glomerular Filtration Rate 103 ML/MIN Troponin I LESS THAN 0.02 NG/ML MDM Medical Decision Making Medical Screen Exam Complete: Yes Emergency Medical Condition: Yes Medical Record Reviewed: Yes Interpretation(s) ECG shows RBBB Differential Diagnosis COPD exacerbation vs rib fracture vs intrabdominal injury Narrative Course Patient is a 66 year old male who comes in complaining of right rib pain and SOB. Exam shows bruising and wheezing. IV established, labs sent. Given 3 duonebs and solumedrol. XR shows no evidence of rib fracture of pneumonia. Labs show a sodium of 120. Patient to be admitted for management of hyponatremia and COPD. Diagnosis Primary Impression: Chronic obstructive pulmonary disease Qualified Codes: J44.1 - Chronic obstructive pulmonary disease with (acute) exacerbation Additional Impression: Hyponatremia Admitting Information Admitting Physician Requests: it Darline Perkins MD Mar 29, 2017 13:28
--- NOTE | 2017-03-29 14:29 | HHI.HP ---
[facility] Service Family Medicine Primary Care Physician Bere Wood MD Admission Diagnosis hyponatremia, COPD exacerbation Diagnoses: Chief Complaint: SOB International Travel<30 Days: No Contact w/Intl Traveler<30days: No Known Affected Area: No History of Present Illness Mr. Salcedo is a 66-year-old male with history of hypertension, hyperlipidemia, cardiac myopathy, atrophic fibrillation, diabetes, COPD who presents today with shortness of breath and abdominal pain. He had an appointment with wound care nurse today, and was sent over here to difficulty breathing. He states when he is not moving, he has no difficulty breathing, but when he moves he has significant pain in his stomach which causes a difficulty breathing. 2 days ago, he said he coughed so hard that he had a vasovagal episode and fell out of his chair. He had the controls on his motorized wheelchair and developed a large bruise on his right lower stomach. Denies any chest pain. His PCP was Dr. Wood, but is now seen a PA in that office. States his cough has worsened lately. No change in phlegm color. No fever/chills, no nausea/vomiting. Has any sick contacts. He's been in a wheelchair for the last 6 years. He does not use oxygen at home. Denies any palpitations. Has sleep apnea, but doesn't use CPAP at night. Usually sleeps in a recliner. 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 He is Dr. Watson, and has had a chronic wound since then. Endorses a history of hyponatremia. Unsure of the cause he says. Does not drink a lot of water. Review of Systems Constitutional: DENIES: Fever, Weight gain, Weight loss, Chills, Night Sweats Eyes: DENIES: Eye pain, Vision loss Ears, nose, mouth, throat: DENIES: Hearing loss, Sinus Pain Respiratory: COMPLAINS OF: Cough, Snoring, Wheezing, Sputum production, Shortness of breath Cardiovascular: DENIES: Chest pain, Palpitations, Lower Extremity Edema Gastrointestinal: COMPLAINS OF: Abdominal pain, DENIES: Constipation, Diarrhea , Nausea, Vomiting Genitourinary: DENIES: Dysuria Musculoskeletal: COMPLAINS OF: Joint pain, Muscle aches Integumentary: DENIES: Abnormal pigmentation, Rash Neurologic: DENIES: Headache, Paresthesias Psychiatric: DENIES: Anxiety, Confusion, Mood changes Past Family Social History Past Medical History COPD Afib DM HTN HLD PVD CAD/cardiomyopathy Skin cancer on arm Past Surgical History Left BKA CABG x3 Arterial bifemoral bypass Femorofemoral bypass Tonsillectomy Cholecystectomy Back cyst removed Reported Medications Reported Meds & Active Scripts Active Linezolid 600 Mg Tab 600 Mg PO Q12H Levofloxacin 750 Mg Tablet 750 Mg PO DAILY Spironolactone 25 Mg Tab 25 Mg PO DAILY Atorvastatin (Atorvastatin Calcium) 40 Mg Tab 40 Mg PO HS Protonix (Pantoprazole Sodium) 40 Mg Tab 40 Mg PO DAILY Duoneb (Ipratropium-Albuterol Neb) 0.5-2.5 Mg/3 Ml Neb 1 Ampule NEB Q6HR PRN Glucophage (Metformin HCl) 500 Mg Tab 500 Mg PO BIDPC With meals Ventolin Hfa 18 GM Inh (Albuterol Sulfate) 90 Mcg/Act Aer 2 Puff INH Q4-6H PRN Metoprolol Tartrate 50 Mg Tab 50 Mg PO BID Levaquin (Levofloxacin) 750 Mg Tablet 750 Mg PO DAILY Benadryl Allergy (Diphenhydramine HCl) 25 Mg Cap 25 Mg PO Q6H PRN Gabapentin 800 Mg Tab 800 Mg PO TID Lasix (Furosemide) 20 Mg Tab 20 Mg PO DAILY Clotrimazole Anti-Fungal Topical (Clotrimazole) 1% Cream 1 Applic TOPICAL Q12HR 10 Days Symbicort Inh (Budesonide/Formoterol Fumarate) 160-4.5 Mcg/Act Aero 2 Puff INH Q12HR Aspirin EC (Aspirin) 81 Mg Tabdr 81 Mg PO DAILY Thera M Plus (Multivitamins/Minerals Therapeutic) 1 Tab 1 Tab PO DAILY Bedside Commode (Device) 1 Mis Mis 1 Ea .ROUTE DIRECTED Walker Rolling/GetGo (Device) 1 Mis Mis 1 Ea .ROUTE DIRECTED Reported Warfarin 4 Mg Tab 4.5 Mg PO DAILY Vitamin B-1 (Thiamine HCl) 100 Mg Tab 100 Mg PO DAILY Allergies: Coded Allergies: cefaclor (Unverified Allergy, Intermediate, rash, 03/29/17) Active Ordered Medications Active Medications Albuterol/ Ipratropium (Duoneb Neb) 1 ampule Q15M INH Last administered on 03/29t 12:08; Admin Dose 1 AMPULE; Start 03/29/17 at 11:00; Stop 03/29/17 at 11 :31; Status DC Iohexol (Omnipaque 350 Inj) 97 ml STK-MED ONCE IVCONTRAST Last administered on 03/29/17t 12:32; Admin Dose 97 ML; Start 03/29/17 at 12:32; Stop 03/29/17 at 12:33; Status DC Methylprednisolone Sodium Succinate (SoluMEDROL INJ) 125 mg ONCE ONCE IV PUSH Last administered on 03/29/17 11:04; Admin Dose 125 MG; Start 03/29/17 at 11: 00; Stop 03/29/17 at 11:02; Status DC Sodium Chloride (NS Flush) 2 ml UNSCH PRN IVF; Start 03/29/17 at 11:00 Family History Father-stomach cancer Mother-stomach cancer Brother-unknown cancer Social History Daylin wilkerson for 25 years Live by self Been in wheelchair since 2010 Smokes 1 PPD (50years) Alcohol: Few beers/day Illicit drug use: denies Physical Exam Vital Signs Vital Signs Date Time Temp Pulse Resp B/P (MAP) Pulse Ox O2 Delivery O2 Flow Rate FiO2 03/29/17 13:28 78 22 130/64 (86) 100 Nasal Cannula 3.00 03/29/17 12:50 76 22 175/79 (111) 98 Nasal Cannula 3.00 03/29/17 11:27 81 24 100 Nasal Cannula 3.00 03/29/17 10:50 100 Nasal Cannula 2.00 03/29/17 10:47 94 26 134/94 (107) 98 Room Air 03/29/17 10:31 98.2 91 28 162/88 (112) 87 Physical Exam GENERAL: well developed, obese male who answers questions appropriately. No acute distress on 3Ls of O2. EYES: PERRLA. EOMI. Lids and conjunctivae reveal no gross abnormality. No scleral icterus. ENT: Tonsils and adenoids slightly injected but without exudates or pus. MMM. No runny nose. NECK: No JVD. No carotid bruits. Trachea midline. No thyromegaly. RESPIRATORY: Diffuse, bilateral coarse breath sounds. End-expiratory wheezes bilaterally. Prolonged expiratory phase. Increased A/P diameter of the chest. Hyperresonance to percussion over both posterior lung mays. CARDIOVASCULAR: Regular rate and rhythm, no murmurs or rubs. Distant heart sounds. Brisk capillary refill. Hands and feet are not cold. ABDOMEN: Obese and slightly distended. Non tender. Bowel sounds x 4. No masses or pulsations present. EXTREMITIES: Trace pitting edema bilaterally. No varicosities. No clubbing, cyanosis, or erythema. MUSCULOSKELETAL:Left BKA; Strength 5/5 in upper and lower extremities. No calf tenderness. SKIN: Warm and dry. left wound on left leg covered in bandage NEUROLOGICAL: NFND. Reflexes 2, symmetric bilaterally in upper and lower extremities. PSYCHIATRIC: Mental status normal for age. Laboratory Laboratory Tests Test 03/29/17 10:55 White Blood Count 7.7 Red Blood Count 4.05 Hemoglobin 13.8 Hematocrit 39.5 Mean Corpuscular Volume 97.4 Mean Corpuscular Hemoglobin 34.0 Mean Corpuscular Hemoglobin Concent 34.9 Red Cell Distribution Width 14.2 Platelet Count 203 Mean Platelet Volume 8.6 Neutrophils (%) (Auto) 79.3 Lymphocytes (%) (Auto) 8.4 Monocytes (%) (Auto) 8.5 Eosinophils (%) (Auto) 3.0 Basophils (%) (Auto) 0.8 Neutrophils # (Auto) 6.1 Lymphocytes # (Auto) 0.6 Monocytes # (Auto) 0.6 Eosinophils # (Auto) 0.2 Basophils # (Auto) 0.1 CBC Comment DIFF FINAL Differential Comment Prothrombin Time 51.5 Prothromb Time International Ratio 5.1 Activated Partial Thromboplast Time 45.1 Blood Urea Nitrogen 7 Creatinine 0.76 Random Glucose 222 Total Protein 7.5 Albumin 3.8 Calcium Level 8.7 Alkaline Phosphatase 76 Aspartate Amino Transf (AST/SGOT) 21 Alanine Aminotransferase (ALT/SGPT) 13 Total Bilirubin 0.4 Sodium Level 120 Potassium Level 4.5 Chloride Level 85 Carbon Dioxide Level 28.4 Anion Gap 7 Estimat Glomerular Filtration Rate 103 Troponin I LESS THAN 0.02 Result Diagram: 03/29/17 1055 03/29/17 1055 Imaging Last Impressions Ribs X-Ray 03/29/17 0000 Signed Impressions: Service Date/Time: Wednesday, March 29, 2017 11:10 - CONCLUSION: No acute abnormality. Ricki Metzger Jr., MD Head CT 03/29/17 0000 Signed Impressions: Service Date/Time: Wednesday, March 29, 2017 12:12 - CONCLUSION: 1. Stable prominence or atrophy out of proportion to age. 2. No acute intracranial abnormality. Steve Barajas MD Abdomen/Pelvis CT 03/29/17 0000 Signed Impressions: Service Date/Time: Wednesday, March 29, 2017 12:16 - CONCLUSION: 1. No acute traumatic abnormality in the abdomen or pelvis. 2. Stable ancillary findings, as above. MD Edwardo Last VTE Risk Assessment Caprini VTE Risk Assessment: Mod/High Risk (score >= 2) VTE Pharm Contraindication: Coagulopathy,INR elevated Caprini Risk Assessment Model Point Value = 1 Point Value = 2 Point Value = 3 Point Value = 5 Age 41-60 Minor surgery BMI > 25 kg/m2 Swollen legs Varicose veins or History of unexplained or recurrent spontaneous Oral contraceptives or hormone replacement Sepsis (< 1 month) Serious lung disease, including pneumonia (< 1 month) Abnormal pulmonary function Acute myocardial infarction Congestive heart failure (< 1 month) History of inflammatory bowel disease Medical patient at bed rest Age 61-74 Arthroscopic surgery Major open surgery (> 45 min) Laparoscopic surgery (> 45 min) Malignancy Confined to bed (> 72 hours) Immobilizing plaster cast Central venous access Age >= 75 History of VTE Family history of VTE Factor V Leiden Prothrombin [id number] Lupus anticoagulant Anticardiolipin antibodies Elevated serum homocysteine Heparin-induced thrombocytopenia Other congenital or acquired thrombophilia Stroke (< 1 month) Elective arthroplasty Hip, pelvis, or leg fracture Acute spinal cord injury (< 1 month) Prophylaxis Regimen Total Risk Factor Score Risk Level Prophylaxis Regimen 0-1 Low Early ambulation 2 Moderate Order ONE of the following: *Sequential Compression Device (SCD) *Heparin 5000 units SQ BID 3-4 Higher Order ONE of the following medications: *Heparin 5000 units SQ TID *Enoxaparin/Lovenox 40 mg SQ daily (WT < 150 kg, CrCl > 30 mL/min) *Enoxaparin/Lovenox 30 mg SQ daily (WT < 150 kg, CrCl > 10-29 mL/min) *Enoxaparin/Lovenox 30 mg SQ BID (WT < 150 kg, CrCl > 30 mL/min) AND/OR *Sequential Compression Device (SCD) 5 or more Highest Order ONE of the following medications: *Heparin 5000 units SQ TID (Preferred with Epidurals) *Enoxaparin/Lovenox 40 mg SQ daily (WT < 150 kg, CrCl > 30 mL/min) *Enoxaparin/Lovenox 30 mg SQ daily (WT < 150 kg, CrCl > 10-29 mL/min) *Enoxaparin/Lovenox 30 mg SQ BID (WT < 150 kg, CrCl > 30 mL/min) AND *Sequential Compression Device (SCD) Assessment and Plan Assessment and Plan 66-year-old male with history of hypertension, hyperlipidemia, atrial fibrillation, diabetes, COPD presents with Code Status Full Discussed Condition With Dr. Perkins Problem List: (1) COPD exacerbation ICD Codes: J44.1 - Chronic obstructive pulmonary disease with (acute) exacerbation Status: Acute Plan: DDx includes COPD exacerbation, CHF exacerbation, pneumonia, asthma attack, [place], PE (less likely). Pt. has a pulmonary hx sig. for smoking, COPD. Pt. not on home O2. WBC 7.7; vital signs stable EKG shows RBBB. CXR showed hyperinflation, no signs of infectious process -Treat with Supplemental O2 to maintain sats above 90%. Encourage pt. to get OOB and ambulate. -Duonebs q4 hrs. kasey, Albuterol Q2 hrs PRN. Pt. rec'd Solu-Medrol 125 mg IV 1 in the ED. -Solu-Medrol 40 mg IV twice a day and plan to transition to prednisone 50 mg by mouth daily in the near future. -Protonix 40 mg PO daily for GI protection and decr. chances of aspiration pneumonia. -Levaquin 750mg daily. Tylenol PRN. -Toradol PRN pain, morphine breakthrough pain -Administer flu vaccine and pneumovax. -Incentive spirometer (2) Hyponatremia ICD Codes: E87.1 - Hypo-osmolality and hyponatremia Status: Acute Plan: Sodium of 120 on admission. Serum osmolarity 255, this with hypotonic hyponatremia. Patient with slightly elevated fluid status, history of cardiomyopathy and edema in lower extremities. -repeat BMP -Trend Sodium overnight -Urine sodium/osm pending -Continue diuresis medications -Fluid and sodium restriction (3) Elevated INR ICD Codes: R79.1 - Abnormal coagulation profile Plan: INR of 5.1. Atrial fibrillation, and was taking 4 mg of warfarin at home. -Daily INRs -Hold warfarin -Monitor for signs of bleeding. (4) Stasis ulcer of left lower extremity ICD Codes: I83.029 - Varicose veins of left lower extremity with ulcer of unspecified site Status: Chronic Plan: Patient with chronic wound on left lower limb after left BKA. He currently sees wound care outpatient -Continue dressing changes -Consult wound care-appreciate recs (5) Paroxysmal atrial fibrillation ICD Codes: I48.0 - Paroxysmal atrial fibrillation Status: Chronic Plan: History of paroxysmal atrial fibrillation. Regular rate and rhythm today. -Continue home metoprolol -Hold warfarin for now due to therapeutic INR -Telemetry (6) Hypertension ICD Codes: I10 - Hypertension Status: Chronic Plan: BP 160/88 on admission. Trending down. -Continue home metoprolol -Vitals q4H (7) DM type 2 (diabetes mellitus, type 2) ICD Codes: E11.9 - Type 2 diabetes mellitus without complications Status: Chronic Plan: Patient on metformin at home. Unsure of his last A1c or blood sugars at home. -Hold metformin -Start low-dose sliding scale insulin -Regular accuchecks (8) Alcohol intake above recommended sensible limits ICD Codes: Z72.89 - Other problems related to lifestyle Status: Chronic Plan: He admits to drinking several beers every night. Denies any history of withdrawal -CIWA protocol -Discussed risks and benefits of quitting (9) Hyperlipidemia ICD Codes: E78.5 - Hyperlipidemia Status: Chronic Plan: -Continue home lipitor (10) FEN/PPX Status: Acute Plan: Fluids: PO, restrict Electrolytes: hyponatremia as above Nutrition: heart healthy diet DVT ppx: holding chemoppx due to therapeutic INR Physician Certification 2 Midnight Certification Type: Admission for Inpatient Services Order for Inpatient Services The services are ordered in accordance with Medicare regulations or non- Medicare payer requirements, as applicable. In the case of services not specified as inpatient-only, they are appropriately provided as inpatient services in accordance with the 2-midnight benchmark. Estimated LOS (days): 2 days is the estimated time the patient will need to remain in the hospital, assuming treatment plan goals are met and no additional complications. Post-Hospital Plan: Home Problem Qualifiers (1) Hypertension: Qualified Codes: I10 - Essential (primary) hypertension (2) DM type 2 (diabetes mellitus, type 2): Qualified Codes: E11.59 - Type 2 diabetes mellitus with other circulatory complications (3) Hyperlipidemia: Qualified Codes: E78.00 - Pure hypercholesterolemia, unspecified Daniel Holguin MD, R2 Mar 29, 2017 14:29
[2017-03-29] MEDS ORDERED: NALOXONE HCL 0.4 MG/ML AMP IV PUSH PRN (15:30)
[2017-03-29] MEDS ORDERED: SODIUM CHLORIDE 0.9% FLUSH 10 ML FLUSH IV FLUSH PRN (15:30)
[2017-03-29] MEDS ORDERED: HEPARIN SODIUM - SQ 10,000 UNITS/ML VIAL SQ SCH (15:30)
[2017-03-29] MEDS ORDERED: GLUCAGON 1 MG/ML VIAL OTHER PRN (15:30)
[2017-03-29] MEDS ORDERED: DEXTROSE 50% IN WATER 50 ML VIAL(D50) IV PUSH PRN (15:30)
[2017-03-29] MEDS ORDERED: FLUMAZENIL 0.5 MG/5 ML VIAL IV PUSH PRN (16:00)
[2017-03-29] MEDS ORDERED: LORazepam 2 MG TAB PO PRN (16:00)
[2017-03-29] MEDS ORDERED: LORazepam 2 MG/ML VIAL IV PUSH PRN ×4 (16:00)
[2017-03-29] MEDS ORDERED: ACETAMINOPHEN 325 MG TAB PO PRN (16:00)
[2017-03-29] MEDS ORDERED: KETOROLAC TROMETHAMINE 30 MG/ML (IVP) VIAL IV PUSH PRN (16:00)
[2017-03-29] MEDS ORDERED: LORazepam 1 MG TAB PO PRN (16:00)
[2017-03-29] MEDS: MORPHINE SULFATE 2 MG/ML INJ IV PUSH PRN ×2 (16:16→20:35)
--- NOTE | 2017-03-29 17:36 | EKG ---
Date Performed: 03/29/2017 Time Performed: 11:30:24 PTAGE: 66 years EKG: Sinus rhythm INDETERMINATE AXIS RIGHT BUNDLE BRANCH BLOCK ABNORMAL ECG Compared to the PREVIOUS TRACING from 12/21/16, no significant change DOCTOR: Dhruv Colin Interpretating Date/Time 03/29/2017 17:35:35
[2017-03-29] MEDS: LEVOFLOXACIN 750 MG TAB PO SCH (17:58)
[2017-03-29] MEDS: GABAPENTIN 400 MG CAP PO SCH (17:58)
[2017-03-29] MEDS: KETOROLAC TROMETHAMINE 30 MG/ML (IVP) VIAL IV PUSH PRN (18:07)
[2017-03-29] MEDS: INSULIN ASPART SUPPLEMENTAL SCALE SQ SCH ×2 (18:08→21:00)
[2017-03-29 18:44] LABS: BICARBONATE 26.7 MEQ/L (21.0-32.0); CALCIUM 8.9 MG/DL (8.5-10.1); CREATININE 0.55 MG/DL (0.60-1.30)
[2017-03-29] MEDS: SODIUM CHLORIDE 0.9% FLUSH 10 ML FLUSH IV FLUSH SCH (20:35)
[2017-03-29] MEDS: METOPROLOL TARTRATE 50 MG TAB PO SCH (20:35)
[2017-03-29] MEDS: ATORVASTATIN 40 MG TAB PO SCH (20:35)
[2017-03-29] MEDS: BUDESONIDE-FORMOTEROL 160/4.5 MCG INHALER INH SCH ×2 (21:00→23:21)
[2017-03-30] VITALS (13 sets, daily range): BP systolic 106–156; BP diastolic 65–74; PULSE 65–96; RESP 16–20; TEMP 97.2–98.4; O2SAT 91–98
[2017-03-30] MEDS: KETOROLAC TROMETHAMINE 30 MG/ML (IVP) VIAL IV PUSH PRN ×4 (00:33→21:42)
[2017-03-30] MEDS: RESP: ALBUTEROL 2.5 MG/IPRATROPIUM 0.5 MG NEB (SCH) INH ×3 (00:44→09:14)
[2017-03-30] MEDS: MORPHINE SULFATE 2 MG/ML INJ IV PUSH PRN ×6 (02:30→23:41)
[2017-03-30 03:49] LABS: SODIUM,RANDOM URINE 15 MEQ/L
[2017-03-30 03:54] LABS: BILIRUBIN, URINE NEG (NEG); BLOOD, URINE TRACE (NEG); GLUCOSE,URINE 1000 mg/dL (NEG); HYALINE CAST, URINE 1 /lpf (RARE); KETONE, URINE NEG (NEG); MUCUS URINE FEW /lpf (OCC); NITRITE,URINE NEG (NEG); URINE COLOR YELLOW (YELLW/STRAW); URINE LEUKOCYTE ESTERASE NEG (NEG)
[2017-03-30 04:10] LABS: BICARBONATE 25.8 MEQ/L (21.0-32.0); CALCIUM 8.5 MG/DL (8.5-10.1); CREATININE 0.86 MG/DL (0.60-1.30)
[2017-03-30 04:19] LABS: OSMOLALITY,URINE 378 MOSM/KG (300-1300)
[2017-03-30 05:13] LABS: AUTOMATED NEUTROPHIL # 7.1 TH/MM3 (1.8-7.7); BASOPHIL % 0.3 % (0.0-2.0); HEMOGLOBIN 11.9 GM/DL (13.0-17.0); LYMPH % 4.6 % (9.0-44.0); LYMPHOCYTE # 0.4 TH/MM3 (1.0-4.8); MEAN CORPUSCULAR HEMOGLOBIN 33.9 PG (27.0-34.0); MEAN PLATELET VOLUME 8.6 FL (7.0-11.0); MONO % 8.9 % (0.0-8.0); MONOCYTE # 0.7 TH/MM3 (0-0.9); NEUT % 86.2 % (16.0-70.0); PLATELET COUNT 174 TH/MM3 (150-450); RED CELL DISTRIBUTION WIDTH 14.2 % (11.6-17.2); WHITE BLOOD COUNT 8.2 TH/MM3 (4.0-11.0)
[2017-03-30 05:24] LABS: INTERNATIONAL NORMALIZED RATIO 3.5 RATIO; PROTHROMBIN TIME - PATIENT 35.5 SEC (9.8-11.6)
[2017-03-30] MEDS: INSULIN ASPART SUPPLEMENTAL SCALE SQ SCH ×4 (07:48→21:00)
[2017-03-30] MEDS: METOPROLOL TARTRATE 50 MG TAB PO SCH (08:39)
[2017-03-30] MEDS: BUDESONIDE-FORMOTEROL 160/4.5 MCG INHALER INH SCH ×2 (08:41→21:42)
[2017-03-30] MEDS: GABAPENTIN 400 MG CAP PO SCH ×3 (08:43→16:11)
[2017-03-30] MEDS: PANTOPRAZOLE SOD 40 MG DELAYED RELEASE TAB PO SCH (08:43)
[2017-03-30] MEDS: MULTIVITAMINS/MINERALS THERAPEUTIC TAB PO SCH (08:44)
[2017-03-30] MEDS: THIAMINE HCL 100 MG TAB PO SCH (08:44)
[2017-03-30] MEDS: FUROSEMIDE 20 MG TAB PO SCH (08:45)
[2017-03-30] MEDS: SPIRONOLACTONE 25 MG TAB PO SCH (08:46)
[2017-03-30] MEDS: SODIUM CHLORIDE 0.9% FLUSH 10 ML FLUSH IV FLUSH SCH ×2 (08:47→21:42)
[2017-03-30] MEDS: methylPREDNISolone SOD SUCC 40 MG/1 ML VIAL IV PUSH SCH ×2 (08:47→21:42)
[2017-03-30] MEDS: RESP: ALBUTEROL 2.5 MG/IPRATROPIUM 0.5 MG NEB (SCH) NEB ×2 (11:54→19:39)
[2017-03-30] MEDS ORDERED: cloNIDine HCL 0.1 MG TAB PO PRN (12:00)
--- NOTE | 2017-03-30 12:22 | HHI.FPPN ---
Subjective Remarks Mr. Salcedo was afebrile with mild, intermittent HTN overnight. Patient reports that he is doing well overall today but that he has had poor sleep. Patient describes his breathing as "fairly labored." Patient also has continued cough. Patient does not report abnormal urination or abnormal bowel movements. Patient reports persistent pain around R abdomen near area of bruising. Patient discussed his cocaine intake, stating that he infrequently uses periodically. (Arnol Gunter MD, R3) Objective Vitals Vital Signs Date Time Temp Pulse Resp B/P (MAP) Pulse Ox O2 Delivery O2 Flow Rate FiO2 03/30/17 11:52 97.2 84 16 156/71 (99) 94 03/30/17 10:47 70 03/30/17 09:16 93 Nasal Cannula 2.00 03/30/17 08:01 97.9 78 16 106/71 (83) 91 03/30/17 05:16 18 03/30/17 04:00 98.2 73 18 121/65 (83) 95 03/30/17 01:36 18 03/30/17 00:40 65 03/30/17 00:00 98.4 71 18 126/68 (87) 97 03/29/17 21:05 89 03/29/17 20:33 96 Nasal Cannula 3.00 03/29/17 20:00 98.9 94 18 143/85 (104) 98 03/29/17 16:57 99.0 89 20 151/73 (99) 95 03/29/17 15:56 03/29/17 15:34 81 20 139/71 (93) 97 Nasal Cannula 3.00 03/29/17 13:28 78 22 130/64 (86) 100 Nasal Cannula 3.00 03/29/17 12:50 76 22 175/79 (111) 98 Nasal Cannula 3.00 I/O 03/29/17 03/29/17 03/29/17 03/30/17 03/30/17 03/30/17 07:00 15:00 23:00 07:00 15:00 23:00 Output Total 220 ml 300 ml Balance -220 ml -300 ml Output Urine Total 220 ml 300 ml # Bowel Movements 1 (Arnol Gunter MD, R3) Result Diagram: 03/30/17 0455 03/30/17 0314 Imaging Last Impressions Ribs X-Ray 03/29/17 0000 Signed Impressions: Service Date/Time: Wednesday, March 29, 2017 11:10 - CONCLUSION: No acute abnormality. Ricki Metzger Jr., MD Head CT 03/29/17 0000 Signed Impressions: Service Date/Time: Wednesday, March 29, 2017 12:12 - CONCLUSION: 1. Stable prominence or atrophy out of proportion to age. 2. No acute intracranial abnormality. Steve Barajas MD Abdomen/Pelvis CT 03/29/17 0000 Signed Impressions: Service Date/Time: Wednesday, March 29, 2017 12:16 - CONCLUSION: 1. No acute traumatic abnormality in the abdomen or pelvis. 2. Stable ancillary findings, as above. Steve Barajas MD Objective Remarks GENERAL: well developed, No acute distress EYES: EOM grossly intact. RESPIRATORY: O2 via NC. Diffuse, bilateral coarse breath sounds. Prolonged expiratory phase. CARDIOVASCULAR: Regular rate and rhythm, no murmurs. Distant heart sounds. Brisk capillary refill. ABDOMEN: Obese and slightly distended. Nontender. Bowel sounds present. MUSCULOSKELETAL: Left BKA; not inspected. No R calf tenderness SKIN: Warm and dry. left wound on left leg covered in bandage. R abdominal bruising NEUROLOGICAL: Grossly normal cranial nerves. Grossly normal peripheral motor and sensory function PSYCHIATRIC: Mental status normal for age. (Arnol Gunter MD, R3) A/P Assessment and Plan 66-year-old male with history of hypertension, hyperlipidemia, atrial fibrillation, diabetes, COPD presents with: (Arnol Gunter MD, R3) Attending Attestation Medical rounds were performed with Dr Gunter, Dr Holguin and Dr Collier, Patient seen and examined, agree with above documentation and assessment, see Orders (Morales Kendall MD) Problem List: (1) Shortness of breath ICD Codes: R06.02 - Shortness of breath Status: Acute Plan: -Treat with Supplemental O2 to maintain sats above 90%. Encourage pt. to get OOB and ambulate. -Duonebs q4 hrs. kasey, Albuterol Q2 hrs PRN. -Will check inspiratory CXR to better see lung mays -Continue empiric COPD treatment -Steroid therapy Pt. rec'd Solu-Medrol 125 mg IV 1 in the ED. -Solu-Medrol 40 mg IV twice a day and plan to transition to prednisone 50 mg by mouth daily in the near future. -Protonix 40 mg PO daily for GI protection and decr. chances of aspiration pneumonia. -Antibiotic therapy -Levaquin 750mg daily. Tylenol PRN. -Rib pain -Toradol PRN pain, morphine breakthrough pain -Incentive spirometer -Administer flu vaccine and pneumovax. Impression: DDx includes COPD exacerbation, CHF exacerbation, pneumonia, asthma attack, [place], PE (less likely). Pt. has a pulmonary hx sig. for smoking, COPD. Pt. not on home O2. WBC 7.7; vital signs stable EKG shows RBBB. Rib XR benign BNP 60 Troponin x1 wnl (2) Hyponatremia ICD Codes: E87.1 - Hypo-osmolality and hyponatremia Status: Acute Plan: -repeat BMP; trend NA -Continue diuresis medications; will consider reducing -Fluid and sodium restriction -Consider oral salt tablets -Consider loop diuretic Impression: Sodium of 120 on admission-> 122 this morning. Serum osmolarity 255 , this with hypotonic hyponatremia. Urine sodium 15, urine osmolality 378 (low urine sodium) Assume euvolemic; do not suspect primary polydipsia. Malnutrition possible, likely diuretic component Patient with slightly elevated fluid status, history of cardiomyopathy and edema in lower extremities. (3) Elevated INR ICD Codes: R79.1 - Abnormal coagulation profile Plan: -Daily INRs -INR 3.5 (03/30) <- 5.1 (03/29) -Will give Warfarin 3mg today; plan to restart Warfarin 4mg tomorrow -Monitor for signs of bleeding. Impression: INR of 5.1. Atrial fibrillation, and was taking 4.5 mg of warfarin at home daily (recently decreased ~1 week ago for INR >6) (4) Stasis ulcer of left lower extremity ICD Codes: I83.029 - Varicose veins of left lower extremity with ulcer of unspecified site Status: Chronic Plan: Patient with chronic wound on left lower limb after left BKA. He currently sees wound care outpatient -Continue dressing changes -Consult wound care-appreciate recs (5) Paroxysmal atrial fibrillation ICD Codes: I48.0 - Paroxysmal atrial fibrillation Status: Chronic Plan: History of paroxysmal atrial fibrillation. Regular rate and rhythm today. -Continue home metoprolol -Hold warfarin for now due to therapeutic INR -Telemetry (6) Hypertension ICD Codes: I10 - Hypertension Status: Chronic Plan: Impression: BP 160/88 on admission; recently normotensive -Will hold home metoprolol due to cocaine use -Continue Lasix 20mg daily -Continue Spironolactone 25mg daily -Vitals q4H (7) DM type 2 (diabetes mellitus, type 2) ICD Codes: E11.9 - Type 2 diabetes mellitus without complications Status: Chronic Plan: Patient on metformin at home. Unsure of his last A1c or blood sugars at home. -Hold metformin -Start low-dose sliding scale insulin -Regular accuchecks (8) Alcohol intake above recommended sensible limits ICD Codes: Z72.89 - Other problems related to lifestyle Status: Chronic Plan: Impression: He admits to drinking several beers every night. Denies any history of withdrawal -CIWA protocol -Discussed risks and benefits of quitting -Continue thiamine, multivitamin supplementation (9) Hyperlipidemia ICD Codes: E78.5 - Hyperlipidemia Status: Chronic Plan: -Continue home lipitor (10) FEN/PPX Status: Acute Plan: Fluids: PO, restrict Electrolytes: hyponatremia as above Nutrition: heart healthy diet DVT ppx: holding chemo ppx due to therapeutic INR (Arnol Gunter MD, R3) Problem Qualifiers (1) Hypertension: Qualified Codes: I10 - Essential (primary) hypertension (2) DM type 2 (diabetes mellitus, type 2): Qualified Codes: E11.59 - Type 2 diabetes mellitus with other circulatory complications (3) Hyperlipidemia: Qualified Codes: E78.00 - Pure hypercholesterolemia, unspecified Arnol Gunter MD, R3 Mar 30, 2017 12:22 Morales Kendall MD Apr 01, 2017 10:36
[2017-03-30] MEDS: METFORMIN HOLD POST IV CONTRAST SCH (12:30)
[2017-03-30 15:04] LABS: BICARBONATE 25.8 MEQ/L (21.0-32.0); CREATININE 1.09 MG/DL (0.60-1.30)
[2017-03-30] MEDS ORDERED: WARFARIN SOD 3 MG TAB PO ONE (16:00)
[2017-03-30] MEDS: LEVOFLOXACIN 750 MG TAB PO SCH (16:12)
[2017-03-30] MEDS ORDERED: diphenhydrAMINE HCL 25 MG CAP PO PRN (16:30)
--- NOTE | 2017-03-30 16:52 | RADRPT ---
EXAM DATE/TIME: 03/30/2017 16:10 [facility] COMPARISON: CHEST SINGLE AP, January 24, 2016, 12:51. INDICATIONS : Shortness of breath. MEDICAL HISTORY : Chronic obstructive pulmonary disease. Cardiovascular disease. Cerebrovascular disease. Hyperten tion. Diabetes. SURGICAL HISTORY : Open heart. ENCOUNTER: Initial ACUITY: 1 day PAIN SCORE: 0/10 LOCATION: Bilateral chest FINDINGS: Single AP view of the chest. Median sternotomy wires are present. The lungs are clear. Cardiomediasti nal silhouette within normal limits. No evidence of pleural effusion or pneumothorax. CONCLUSION: No acute cardiopulmonary disease identified. Tahir Nobles MD on March 30, 2017 at 16:50 Board Certified Radiologist. This report was verified electronically.
[2017-03-30] MEDS: RESP: ALBUTEROL 2.5 MG/3 ML NEB (PRN) INH (17:25)
[2017-03-30] MEDS: ATORVASTATIN 40 MG TAB PO SCH (21:42)
[2017-03-30 22:26] LABS: BICARBONATE 26.3 MEQ/L (21.0-32.0); CALCIUM 8.8 MG/DL (8.5-10.1); CREATININE 0.93 MG/DL (0.60-1.30)
[2017-03-31] VITALS (11 sets, daily range): BP systolic 119–180; BP diastolic 56–86; PULSE 73–119; RESP 18–20; TEMP 98.1–98.8; O2SAT 91–99
[2017-03-31 05:28] LABS: AUTOMATED NEUTROPHIL # 8.5 TH/MM3 (1.8-7.7); BASOPHIL % 0.1 % (0.0-2.0); HEMATOCRIT 34.2 % (39.0-51.0); HEMOGLOBIN 11.7 GM/DL (13.0-17.0); LYMPH % 3.2 % (9.0-44.0); LYMPHOCYTE # 0.3 TH/MM3 (1.0-4.8); MEAN CELL VOLUME 98.5 FL (80.0-100.0); MEAN CORPUSCULAR HEMOGLOBIN 33.9 PG (27.0-34.0); MEAN CORPUSCULAR HGB CONC 34.4 % (32.0-36.0); MEAN PLATELET VOLUME 8.5 FL (7.0-11.0); MONO % 4.3 % (0.0-8.0); MONOCYTE # 0.4 TH/MM3 (0-0.9); NEUT % 92.4 % (16.0-70.0); PLATELET COUNT 162 TH/MM3 (150-450); RED BLOOD COUNT 3.47 MIL/MM3 (4.50-5.90); RED CELL DISTRIBUTION WIDTH 14.2 % (11.6-17.2); WHITE BLOOD COUNT 9.2 TH/MM3 (4.0-11.0)
[2017-03-31 05:37] LABS: BICARBONATE 25.8 MEQ/L (21.0-32.0); CALCIUM 8.8 MG/DL (8.5-10.1); CREATININE 0.98 MG/DL (0.60-1.30)
[2017-03-31] MEDS: KETOROLAC TROMETHAMINE 30 MG/ML (IVP) VIAL IV PUSH PRN ×3 (06:12→18:40)
[2017-03-31 06:25] LABS: PROTHROMBIN TIME - PATIENT 20.1 SEC (9.8-11.6)
[2017-03-31] MEDS: MORPHINE SULFATE 2 MG/ML INJ IV PUSH PRN ×3 (08:22→21:12)
[2017-03-31] MEDS: MULTIVITAMINS/MINERALS THERAPEUTIC TAB PO SCH (08:22)
[2017-03-31] MEDS: GABAPENTIN 400 MG CAP PO SCH ×3 (08:23→17:24)
[2017-03-31] MEDS: PANTOPRAZOLE SOD 40 MG DELAYED RELEASE TAB PO SCH (08:23)
[2017-03-31] MEDS: THIAMINE HCL 100 MG TAB PO SCH (08:23)
[2017-03-31] MEDS: FUROSEMIDE 20 MG TAB PO SCH (08:24)
[2017-03-31] MEDS: SPIRONOLACTONE 25 MG TAB PO SCH (08:24)
[2017-03-31] MEDS: INSULIN ASPART SUPPLEMENTAL SCALE SQ SCH ×4 (08:25→21:50)
[2017-03-31] MEDS: methylPREDNISolone SOD SUCC 40 MG/1 ML VIAL IV PUSH SCH ×2 (08:26→21:11)
[2017-03-31] MEDS: BUDESONIDE-FORMOTEROL 160/4.5 MCG INHALER INH SCH ×2 (08:28→21:00)
[2017-03-31] MEDS: SODIUM CHLORIDE 0.9% FLUSH 10 ML FLUSH IV FLUSH SCH ×2 (08:28→21:11)
[2017-03-31] MEDS ORDERED: SENNOSIDES 8.6 MG TAB PO PRN (09:00)
[2017-03-31] MEDS ORDERED: LACTULOSE SYRUP 20 GM/30 ML CUP PO PRN (09:00)
[2017-03-31] MEDS ORDERED: BISACODYL 10 MG SUPP RECTAL PRN (09:00)
[2017-03-31] MEDS ORDERED: MAGNESIUM HYDROXIDE SUSP 30 ML CUP PO PRN (09:00)
[2017-03-31] MEDS: RESP: ALBUTEROL 2.5 MG/IPRATROPIUM 0.5 MG NEB (SCH) NEB ×3 (09:56→15:48)
[2017-03-31] MEDS: METOPROLOL TARTRATE 50 MG TAB PO SCH ×2 (10:07→21:11)
[2017-03-31] MEDS: DOCUSATE SODIUM 50 MG/SENNA 8.6 MG TAB PO SCH ×2 (10:07→21:11)
--- NOTE | 2017-03-31 10:07 | HHI.FPPN ---
Subjective Remarks Patient seen and examined this morning. No acute events overnight. Patient with elevated heart rate and blood pressure this morning, after holding metoprolol yesterday. Denies any chest pain. Reports his breathing has improved, almost back to baseline. Continued cough, but improving. Denies any fever/chills, nausea/vomiting, leg pain. Reports his abdominal pain/bruise is improving. Urinating without difficulty, no bowel movement yesterday. Objective Vitals Vital Signs Date Time Temp Pulse Resp B/P (MAP) Pulse Ox O2 Delivery O2 Flow Rate FiO2 03/31/17 08:06 98.1 109 18 180/86 (117) 96 03/31/17 04:00 98.3 119 20 146/75 (98) 91 03/31/17 00:00 98.2 112 20 151/68 (95) 96 03/30/17 20:00 98.1 96 20 112/66 (81) 94 03/30/17 18:08 85 03/30/17 17:25 98 Nasal Cannula 2.50 03/30/17 15:48 97.3 87 16 138/74 (95) 91 03/30/17 14:59 82 03/30/17 11:52 97.2 84 16 156/71 (99) 94 03/30/17 10:47 70 I/O 03/30/17 03/30/17 03/30/17 03/31/17 03/31/17 03/31/17 07:00 15:00 23:00 07:00 15:00 23:00 Intake Total 240 ml Output Total 300 ml 550 ml Balance -60 ml -550 ml Intake Oral 240 ml Output Urine Total 300 ml 550 ml # Voids 1 # Bowel Movements 1 Result Diagram: 03/31/17 0456 03/31/17 0456 Objective Remarks GENERAL: well developed, No acute distress RESPIRATORY: O2 via NC. Diffuse, bilateral coarse breath sounds. Prolonged expiratory phase with wheezing CARDIOVASCULAR: Regular rate and rhythm, no murmurs. Distant heart sounds. ABDOMEN: Obese and slightly distended. Tender over right abdominal bruise. Bowel sounds present. MUSCULOSKELETAL: Left BKA; not inspected. No R calf tenderness SKIN: Warm and dry. left wound on left leg covered in bandage. R abdominal bruising NEUROLOGICAL: Grossly normal cranial nerves. Grossly normal peripheral motor and sensory function PSYCHIATRIC: Mental status normal for age. A/P Assessment and Plan 66-year-old male with history of hypertension, hyperlipidemia, atrial fibrillation, diabetes, COPD presents with: Discharge Planning Pending electrolyte improvement and COPD improvement Problem List: (1) Shortness of breath ICD Codes: R06.02 - Shortness of breath Status: Acute Plan: -Treat with Supplemental O2 to maintain sats above 90%. Encourage pt. to get OOB and ambulate. -Duonebs q4 hrs. kasey, Albuterol Q2 hrs PRN. -Continue empiric COPD treatment -Steroid therapy (Pt. rec'd Solu-Medrol 125 mg IV 1 in the ED) -IV solumedrol 40mg BID-->Transition to prednisone 50 mg by mouth daily tomorrow -Protonix 40 mg PO daily for GI protection and decr. chances of aspiration pneumonia. -Antibiotic therapy -Levaquin 750mg daily. Tylenol PRN. -Rib pain -Toradol PRN pain, morphine breakthrough pain -Incentive spirometer -Administer flu vaccine and pneumovax. Pt. has a pulmonary hx sig. for smoking, COPD. Pt. not on home O2. EKG shows RBBB. Rib XR benign BNP 60 Troponin x1 wnl (2) Hyponatremia ICD Codes: E87.1 - Hypo-osmolality and hyponatremia Status: Acute Plan: Stable around 122 this morning, Asymptomatic -Continue diuresis medications; will consider reducing -Fluid and sodium restriction, <1000ml/day -Consider oral salt tablets -Consider loop diuretic Impression: Sodium of 120 on admission. Serum osmolarity 255, this with hypotonic hyponatremia. Urine sodium 15, urine osmolality 378 (low urine sodium) do not suspect primary polydipsia. Malnutrition possible, likely diuretic component Patient with slightly elevated fluid status, history of cardiomyopathy and edema in lower extremities. (3) Elevated INR ICD Codes: R79.1 - Abnormal coagulation profile Plan: -Daily INRs (5.1-->3.5-->2.0) -Continue warfarin 4mg daily -Monitor for signs of bleeding. Atrial fibrillation, and was taking 4.5 mg of warfarin at home daily (recently decreased ~1 week ago for INR >6) (4) Cocaine abuse ICD Codes: F14.10 - Cocaine abuse, uncomplicated Status: Acute Plan: UDS positive for cocaine on admission. Pt admits to snorting cocaine couple days ago from friend -Discussed risks to health and life -Held metformin yesterday, restart today due to tachycardia and HTN; discussed with pt that taking metoprolol and cocaine is very dangerous (5) Stasis ulcer of left lower extremity ICD Codes: I83.029 - Varicose veins of left lower extremity with ulcer of unspecified site Status: Chronic Plan: Patient with chronic wound on left lower limb after left BKA. He currently sees wound care outpatient -Continue dressing changes -Consult wound care-appreciate recs (6) Paroxysmal atrial fibrillation ICD Codes: I48.0 - Paroxysmal atrial fibrillation Status: Chronic Plan: History of paroxysmal atrial fibrillation. Regular rate and rhythm today. -Continue home metoprolol -Hold warfarin for now due to therapeutic INR -Telemetry (7) Hypertension ICD Codes: I10 - Hypertension Status: Chronic Plan: Impression: BP 160/88 on admission; recently normotensive -Continue metoprolol today -Clonidine PRN -Continue Lasix 20mg daily -Continue Spironolactone 25mg daily -Vitals q4H (8) DM type 2 (diabetes mellitus, type 2) ICD Codes: E11.9 - Type 2 diabetes mellitus without complications Status: Chronic Plan: Patient on metformin at home. Unsure of his last A1c or blood sugars at home. -Hold metformin -Start low-dose sliding scale insulin -Regular accuchecks (9) Alcohol intake above recommended sensible limits ICD Codes: Z72.89 - Other problems related to lifestyle Status: Chronic Plan: Impression: He admits to drinking several beers every night. Denies any history of withdrawal -[facility] protocol -Discussed risks and benefits of quitting -Continue thiamine, multivitamin supplementation (10) Hyperlipidemia ICD Codes: E78.5 - Hyperlipidemia Status: Chronic Plan: -Continue home lipitor (11) FEN/PPX Status: Acute Plan: Fluids: PO, restrict Electrolytes: hyponatremia as above Nutrition: heart healthy diet DVT ppx: warfarin, may need to restart if INR drops<2 Problem Qualifiers (1) Hypertension: Qualified Codes: I10 - Essential (primary) hypertension (2) DM type 2 (diabetes mellitus, type 2): Qualified Codes: E11.59 - Type 2 diabetes mellitus with other circulatory complications (3) Hyperlipidemia: Qualified Codes: E78.00 - Pure hypercholesterolemia, unspecified Daniel Holguin MD, R2 Mar 31, 2017 10:07
[2017-03-31] MEDS: METFORMIN HOLD POST IV CONTRAST SCH (12:30)
[2017-03-31 13:28] LABS: CREATININE 0.86 MG/DL (0.60-1.30)
[2017-03-31] MEDS: WARFARIN SOD 4 MG TAB PO SCH (17:24)
[2017-03-31] MEDS: LEVOFLOXACIN 750 MG TAB PO SCH (17:24)
[2017-03-31 18:11] LABS: BICARBONATE 27.4 MEQ/L (21.0-32.0); CREATININE 1.24 MG/DL (0.60-1.30)
[2017-03-31] MEDS: ATORVASTATIN 40 MG TAB PO SCH (21:11)
[2017-04-01] VITALS (11 sets, daily range): BP systolic 133–171; BP diastolic 71–91; PULSE 69–90; RESP 18–20; TEMP 97.4–98.8; O2SAT 95–99
[2017-04-01] MEDS: MORPHINE SULFATE 2 MG/ML INJ IV PUSH PRN ×7 (00:21→23:45)
[2017-04-01] MEDS: KETOROLAC TROMETHAMINE 30 MG/ML (IVP) VIAL IV PUSH PRN (03:42)
[2017-04-01 07:22] LABS: BASOPHIL % 0.1 % (0.0-2.0); EOSINOPHIL % 0.1 % (0.0-4.0); HEMATOCRIT 35.4 % (39.0-51.0); LYMPH % 4.3 % (9.0-44.0); LYMPHOCYTE # 0.4 TH/MM3 (1.0-4.8); MEAN CELL VOLUME 97.9 FL (80.0-100.0); MEAN CORPUSCULAR HEMOGLOBIN 33.1 PG (27.0-34.0); MEAN CORPUSCULAR HGB CONC 33.8 % (32.0-36.0); MEAN PLATELET VOLUME 8.4 FL (7.0-11.0); MONO % 7.6 % (0.0-8.0); MONOCYTE # 0.7 TH/MM3 (0-0.9); NEUT % 87.9 % (16.0-70.0); PLATELET COUNT 159 TH/MM3 (150-450); RED BLOOD COUNT 3.62 MIL/MM3 (4.50-5.90); RED CELL DISTRIBUTION WIDTH 14.2 % (11.6-17.2); WHITE BLOOD COUNT 9.1 TH/MM3 (4.0-11.0)
[2017-04-01 07:25] LABS: INTERNATIONAL NORMALIZED RATIO 1.4 RATIO; PROTHROMBIN TIME - PATIENT 14.3 SEC (9.8-11.6)
[2017-04-01] MEDS: RESP: ALBUTEROL 2.5 MG/IPRATROPIUM 0.5 MG NEB (SCH) NEB ×3 (07:39→20:37)
[2017-04-01 08:00] LABS: BICARBONATE 28.8 MEQ/L (21.0-32.0); CALCIUM 8.7 MG/DL (8.5-10.1); CREATININE 0.84 MG/DL (0.60-1.30); PHOSPHORUS 3.6 MG/DL (2.5-4.9)
[2017-04-01] MEDS: BUDESONIDE-FORMOTEROL 160/4.5 MCG INHALER INH SCH ×2 (08:36→20:42)
[2017-04-01] MEDS: THIAMINE HCL 100 MG TAB PO SCH (08:38)
[2017-04-01] MEDS: GABAPENTIN 400 MG CAP PO SCH ×3 (08:38→16:37)
[2017-04-01] MEDS: PANTOPRAZOLE SOD 40 MG DELAYED RELEASE TAB PO SCH (08:38)
[2017-04-01] MEDS: FUROSEMIDE 20 MG TAB PO SCH (08:38)
[2017-04-01] MEDS: SPIRONOLACTONE 25 MG TAB PO SCH (08:38)
[2017-04-01] MEDS: METOPROLOL TARTRATE 50 MG TAB PO SCH ×2 (08:39→20:40)
[2017-04-01] MEDS: predniSONE 50 MG TAB PO SCH (08:39)
[2017-04-01] MEDS: DOCUSATE SODIUM 50 MG/SENNA 8.6 MG TAB PO SCH ×2 (08:39→20:40)
[2017-04-01] MEDS: MULTIVITAMINS/MINERALS THERAPEUTIC TAB PO SCH (08:39)
[2017-04-01] MEDS: INSULIN ASPART SUPPLEMENTAL SCALE SQ SCH ×4 (08:46→21:02)
[2017-04-01] MEDS: SODIUM CHLORIDE 0.9% FLUSH 10 ML FLUSH IV FLUSH SCH ×2 (09:00→20:42)
--- NOTE | 2017-04-01 11:54 | HHI.FPPN ---
Subjective Remarks Patient seen and examined today. He reports that his breathing has improved since admission. He continues to have a cough, which is productive however he believes this is closer to his baseline. He continues to complain of minimal pain on his abdomen where he has a bruise. Denies nausea, vomiting, fever, chills, chest pain, headache, change in appetite, change in bowel or bladder habits. Objective Vitals Vital Signs Date Time Temp Pulse Resp B/P (MAP) Pulse Ox O2 Delivery O2 Flow Rate FiO2 04/01/17 08:00 97.7 83 19 171/91 (117) 98 04/01/17 07:40 97 Nasal Cannula 3.00 04/01/17 04:00 71 04/01/17 04:00 98.8 69 20 160/76 (104) 98 04/01/17 00:07 78 04/01/17 00:00 97.9 90 18 147/86 (106) 97 03/31/17 20:00 98.1 94 20 174/77 (109) 99 03/31/17 18:12 73 03/31/17 15:51 98.8 78 18 146/69 (94) 99 03/31/17 15:50 98 Nasal Cannula 3.00 03/31/17 15:37 77 03/31/17 11:52 98.4 98 18 119/56 (77) 96 I/O 03/31/17 03/31/17 03/31/17 04/01/17 04/01/17 04/01/17 06:59 14:59 22:59 06:59 14:59 22:59 Intake Total 480 ml Output Total 550 ml 550 ml 300 ml 1450 ml Balance -550 ml -70 ml -300 ml -1450 ml Intake Oral 480 ml Output Urine Total 550 ml 550 ml 300 ml 1450 ml Result Diagram: 04/01/17 0554 04/01/17 0554 Objective Remarks GENERAL: well developed, No acute distress RESPIRATORY: O2 via NC. Diffuse, bilateral coarse breath sounds. Prolonged expiratory phase with wheezing CARDIOVASCULAR: Regular rate and rhythm, no murmurs. Distant heart sounds. ABDOMEN: Obese and slightly distended. Tender over right abdominal bruise. Bowel sounds present. MUSCULOSKELETAL: Left BKA; not inspected. No R calf tenderness SKIN: Warm and dry. left wound on left leg covered in bandage. R abdominal bruising NEUROLOGICAL: Grossly normal cranial nerves. Grossly normal peripheral motor and sensory function PSYCHIATRIC: Mental status normal for age. A/P Assessment and Plan 66-year-old male with history of hypertension, hyperlipidemia, atrial fibrillation, diabetes, COPD presents with: Discharge Planning Pending electrolyte improvement and COPD improvement Problem List: (1) Shortness of breath ICD Codes: R06.02 - Shortness of breath Status: Acute Plan: -Treat with Supplemental O2 to maintain sats above 90%. Encourage pt. to get OOB and ambulate. -Duonebs q4 hrs. kasey, Albuterol Q2 hrs PRN. -Continue empiric COPD treatment -Steroid therapy (Pt. rec'd Solu-Medrol 125 mg IV 1 in the ED) -IV solumedrol 40mg BID-->Transition to prednisone 50 mg by mouth daily tomorrow -Protonix 40 mg PO daily for GI protection and decr. chances of aspiration pneumonia. -Antibiotic therapy -Levaquin 750mg daily. Tylenol PRN. -Rib pain -Toradol PRN pain, morphine breakthrough pain -Incentive spirometer -Administer flu vaccine and pneumovax. Pt. has a pulmonary hx sig. for smoking, COPD. Pt. not on home O2. EKG shows RBBB. Rib XR benign BNP 60 Troponin x1 wnl (2) Hyponatremia ICD Codes: E87.1 - Hypo-osmolality and hyponatremia Status: Acute Plan: Around 124 this morning, Asymptomatic -Continue diuresis medications; will consider reducing -Fluid and sodium restriction, <1000ml/day -Consider oral salt tablets -Consider loop diuretic Impression: Sodium of 120 on admission. Serum osmolarity 255, this with hypotonic hyponatremia. Urine sodium 15, urine osmolality 378 (low urine sodium) do not suspect primary polydipsia. Malnutrition possible, likely diuretic component Patient with slightly elevated fluid status, history of cardiomyopathy and edema in lower extremities. (3) Elevated INR ICD Codes: R79.1 - Abnormal coagulation profile Plan: -Daily INRs (5.1-->3.5-->2.0-->1.4) -Continue warfarin 4mg daily -Monitor for signs of bleeding. Atrial fibrillation, and was taking 4.5 mg of warfarin at home daily (recently decreased ~1 week ago for INR >6) (4) Cocaine abuse ICD Codes: F14.10 - Cocaine abuse, uncomplicated Status: Acute Plan: UDS positive for cocaine on admission. Pt admits to snorting cocaine couple days ago from friend -Discussed risks to health and life -Held metformin yesterday, restart today due to tachycardia and HTN; discussed with pt that taking metoprolol and cocaine is very dangerous (5) Stasis ulcer of left lower extremity ICD Codes: I83.029 - Varicose veins of left lower extremity with ulcer of unspecified site Status: Chronic Plan: Patient with chronic wound on left lower limb after left BKA. He currently sees wound care outpatient -Continue dressing changes -Consult wound care-appreciate recs (6) Paroxysmal atrial fibrillation ICD Codes: I48.0 - Paroxysmal atrial fibrillation Status: Chronic Plan: History of paroxysmal atrial fibrillation. Regular rate and rhythm today. -Continue home metoprolol -Hold warfarin for now due to therapeutic INR -Telemetry (7) Hypertension ICD Codes: I10 - Hypertension Status: Chronic Plan: Impression: BP 160/88 on admission; recently normotensive -Continue metoprolol today -Clonidine PRN -Continue Lasix 20mg daily -Continue Spironolactone 25mg daily -Vitals q4H (8) DM type 2 (diabetes mellitus, type 2) ICD Codes: E11.9 - Type 2 diabetes mellitus without complications Status: Chronic Plan: Patient on metformin at home. Unsure of his last A1c or blood sugars at home. -Hold metformin -Start low-dose sliding scale insulin -Regular accuchecks (9) Alcohol intake above recommended sensible limits ICD Codes: Z72.89 - Other problems related to lifestyle Status: Chronic Plan: Impression: He admits to drinking several beers every night. Denies any history of withdrawal -[facility] protocol -Discussed risks and benefits of quitting -Continue thiamine, multivitamin supplementation (10) Hyperlipidemia ICD Codes: E78.5 - Hyperlipidemia Status: Chronic Plan: -Continue home lipitor (11) FEN/PPX Status: Acute Plan: Fluids: PO, restrict Electrolytes: hyponatremia as above Nutrition: heart healthy diet DVT ppx: warfarin, may need to restart if INR drops<2 Problem Qualifiers (1) Hypertension: Qualified Codes: I10 - Essential (primary) hypertension (2) DM type 2 (diabetes mellitus, type 2): Qualified Codes: E11.59 - Type 2 diabetes mellitus with other circulatory complications (3) Hyperlipidemia: Qualified Codes: E78.00 - Pure hypercholesterolemia, unspecified Faille,Rigo MD R1 Apr 01, 2017 11:54
[2017-04-01] MEDS: WARFARIN SOD 4 MG TAB PO SCH (16:37)
[2017-04-01] MEDS: LEVOFLOXACIN 750 MG TAB PO SCH (16:37)
[2017-04-01] MEDS: ATORVASTATIN 40 MG TAB PO SCH (20:41)
[2017-04-02] VITALS (12 sets, daily range): BP systolic 113–168; BP diastolic 70–85; PULSE 75–118; RESP 18; TEMP 97.3–98.8; O2SAT 92–98
[2017-04-02] MEDS: MORPHINE SULFATE 2 MG/ML INJ IV PUSH PRN ×3 (03:50→12:38)
[2017-04-02] MEDS: RESP: ALBUTEROL 2.5 MG/3 ML NEB (PRN) INH (03:55)
[2017-04-02 04:55] LABS: HEMATOCRIT 34.6 % (39.0-51.0); HEMOGLOBIN 11.9 GM/DL (13.0-17.0); MEAN CELL VOLUME 98.3 FL (80.0-100.0); MEAN CORPUSCULAR HEMOGLOBIN 33.8 PG (27.0-34.0); MEAN CORPUSCULAR HGB CONC 34.3 % (32.0-36.0); MEAN PLATELET VOLUME 8.5 FL (7.0-11.0); PLATELET COUNT 165 TH/MM3 (150-450); RED BLOOD COUNT 3.52 MIL/MM3 (4.50-5.90); RED CELL DISTRIBUTION WIDTH 14.1 % (11.6-17.2); WHITE BLOOD COUNT 9.4 TH/MM3 (4.0-11.0)
[2017-04-02 05:04] LABS: INTERNATIONAL NORMALIZED RATIO 1.4 RATIO
[2017-04-02 05:08] LABS: BICARBONATE 29.8 MEQ/L (21.0-32.0); CALCIUM 8.8 MG/DL (8.5-10.1); CREATININE 0.77 MG/DL (0.60-1.30)
[2017-04-02] MEDS: METOPROLOL TARTRATE 50 MG TAB PO SCH ×2 (07:52→19:49)
[2017-04-02] MEDS: SPIRONOLACTONE 25 MG TAB PO SCH (07:52)
[2017-04-02] MEDS: DOCUSATE SODIUM 50 MG/SENNA 8.6 MG TAB PO SCH ×2 (07:52→19:47)
[2017-04-02] MEDS: GABAPENTIN 400 MG CAP PO SCH ×3 (07:53→17:34)
[2017-04-02] MEDS: PANTOPRAZOLE SOD 40 MG DELAYED RELEASE TAB PO SCH (07:53)
[2017-04-02] MEDS: THIAMINE HCL 100 MG TAB PO SCH (07:53)
[2017-04-02] MEDS: FUROSEMIDE 20 MG TAB PO SCH (07:53)
[2017-04-02] MEDS: predniSONE 50 MG TAB PO SCH (07:54)
[2017-04-02] MEDS: MULTIVITAMINS/MINERALS THERAPEUTIC TAB PO SCH (07:54)
[2017-04-02] MEDS: ENOXAPARIN SODIUM 80 MG/0.8 ML SYRINGE SQ SCH ×2 (08:00→19:48)
[2017-04-02] MEDS: INSULIN ASPART SUPPLEMENTAL SCALE SQ SCH ×4 (08:00→20:41)
[2017-04-02] MEDS: RESP: ALBUTEROL 2.5 MG/IPRATROPIUM 0.5 MG NEB (SCH) NEB ×3 (08:40→20:29)
[2017-04-02] MEDS: SODIUM CHLORIDE 0.9% FLUSH 10 ML FLUSH IV FLUSH SCH ×2 (09:00→20:21)
[2017-04-02] MEDS: BUDESONIDE-FORMOTEROL 160/4.5 MCG INHALER INH SCH ×2 (09:00→19:49)
--- NOTE | 2017-04-02 10:17 | HHI.FPPN ---
Subjective Remarks Patient seen and examined today. No acute events overnight. Pain in the bruises on his abdomen is improving. States he is currently breathing well. No nausea, vomiting, fever, chills, chest pain, lightheadedness, dizziness change in bowel or bladder habits. Objective Vitals Vital Signs Date Time Temp Pulse Resp B/P (MAP) Pulse Ox O2 Delivery O2 Flow Rate FiO2 04/02/17 08:43 98 Nasal Cannula 3.00 04/02/17 08:35 98.8 75 18 168/78 (108) 98 04/02/17 05:20 97.8 79 18 113/85 (94) 97 04/02/17 01:51 83 149/73 (98) 04/02/17 00:37 98.5 86 18 167/83 (111) 97 04/01/17 23:46 84 04/01/17 20:44 98.0 87 18 152/74 (100) 96 04/01/17 20:38 95 Nasal Cannula 3.00 04/01/17 19:47 89 04/01/17 16:00 97.7 72 19 133/71 (91) 98 04/01/17 12:00 97.4 74 19 155/81 (105) 99 I/O 04/01/17 04/01/17 04/01/17 04/02/17 04/02/17 04/02/17 07:00 15:00 23:00 07:00 15:00 23:00 Intake Total 480 ml Output Total 1450 ml 200 ml 850 ml 500 ml Balance -1450 ml 280 ml -850 ml -500 ml Intake Oral 480 ml Output Urine Total 1450 ml 200 ml 850 ml 500 ml # Bowel Movements 0 Result Diagram: 04/02/17 0340 04/02/17 0340 Objective Remarks GENERAL: well developed, No acute distress RESPIRATORY: O2 via NC. Diffuse, bilateral coarse breath sounds. Prolonged expiratory phase with wheezing CARDIOVASCULAR: Regular rate and rhythm, no murmurs. Distant heart sounds. ABDOMEN: Obese and slightly distended. Tender over right abdominal bruise. Bowel sounds present. MUSCULOSKELETAL: Left BKA; not inspected. No R calf tenderness SKIN: Warm and dry. left wound on left leg covered in bandage. R abdominal bruising NEUROLOGICAL: Grossly normal cranial nerves. Grossly normal peripheral motor and sensory function PSYCHIATRIC: Mental status normal for age. A/P Assessment and Plan 66-year-old male with history of hypertension, hyperlipidemia, atrial fibrillation, diabetes, COPD presents with: COPD exacerbation, hyponatremia Discharge Planning Pending electrolyte improvement and COPD improvement Problem List: (1) Shortness of breath ICD Codes: R06.02 - Shortness of breath Status: Acute Plan: -Treat with Supplemental O2 to maintain sats above 90%. Encourage pt. to get OOB and ambulate. -Duonebs q4 hrs. kasey, Albuterol Q2 hrs PRN. -Continue empiric COPD treatment -Steroid therapy (Pt. rec'd Solu-Medrol 125 mg IV 1 in the ED) -IV solumedrol 40mg BID-->Transition to prednisone 50 mg by mouth daily tomorrow -Protonix 40 mg PO daily for GI protection and decr. chances of aspiration pneumonia. -Antibiotic therapy -Levaquin 750mg daily. Tylenol PRN. -Rib pain -Toradol PRN pain, morphine breakthrough pain -Incentive spirometer -Administer flu vaccine and pneumovax. Pt. has a pulmonary hx sig. for smoking, COPD. Pt. not on home O2. EKG shows RBBB. Rib XR benign BNP 60 Troponin x1 wnl (2) Hyponatremia ICD Codes: E87.1 - Hypo-osmolality and hyponatremia Status: Acute Plan: Around 127 this morning, Asymptomatic -Continue diuresis medications; will consider reducing -Fluid and sodium restriction, <1000ml/day -Consider oral salt tablets -Consider loop diuretic Impression: Sodium of 120 on admission. Serum osmolarity 255, this with hypotonic hyponatremia. Urine sodium 15, urine osmolality 378 (low urine sodium) do not suspect primary polydipsia. Malnutrition possible, likely diuretic component Patient with slightly elevated fluid status, history of cardiomyopathy and edema in lower extremities. (3) Elevated INR ICD Codes: R79.1 - Abnormal coagulation profile Plan: -Daily INRs (5.1-->3.5-->2.0-->1.4-->1.4) -Continue warfarin 4mg daily -Monitor for signs of bleeding. Atrial fibrillation, and was taking 4.5 mg of warfarin at home daily (recently decreased ~1 week ago for INR >6) (4) Cocaine abuse ICD Codes: F14.10 - Cocaine abuse, uncomplicated Status: Acute Plan: UDS positive for cocaine on admission. Pt admits to snorting cocaine couple days ago from friend -Discussed risks to health and life -Held metformin yesterday, restart today due to tachycardia and HTN; discussed with pt that taking metoprolol and cocaine is very dangerous (5) Stasis ulcer of left lower extremity ICD Codes: I83.029 - Varicose veins of left lower extremity with ulcer of unspecified site Status: Chronic Plan: Patient with chronic wound on left lower limb after left BKA. He currently sees wound care outpatient -Continue dressing changes -Consult wound care-appreciate recs (6) Paroxysmal atrial fibrillation ICD Codes: I48.0 - Paroxysmal atrial fibrillation Status: Chronic Plan: History of paroxysmal atrial fibrillation. Regular rate and rhythm today. -Continue home metoprolol -Hold warfarin for now due to therapeutic INR -Telemetry (7) Hypertension ICD Codes: I10 - Hypertension Status: Chronic Plan: Impression: BP 160/88 on admission; recently normotensive -Continue metoprolol today -Clonidine PRN -Continue Lasix 20mg daily -Continue Spironolactone 25mg daily -Vitals q4H (8) DM type 2 (diabetes mellitus, type 2) ICD Codes: E11.9 - Type 2 diabetes mellitus without complications Status: Chronic Plan: Patient on metformin at home. Unsure of his last A1c or blood sugars at home. -Hold metformin -Start low-dose sliding scale insulin -Regular accuchecks (9) Alcohol intake above recommended sensible limits ICD Codes: Z72.89 - Other problems related to lifestyle Status: Chronic Plan: Impression: He admits to drinking several beers every night. Denies any history of withdrawal -[facility] protocol -Discussed risks and benefits of quitting -Continue thiamine, multivitamin supplementation (10) Hyperlipidemia ICD Codes: E78.5 - Hyperlipidemia Status: Chronic Plan: -Continue home lipitor (11) FEN/PPX Status: Acute Plan: Fluids: PO, restrict Electrolytes: hyponatremia as above Nutrition: heart healthy diet DVT ppx: warfarin, may need to restart if INR drops<2 Problem Qualifiers (1) Hypertension: Qualified Codes: I10 - Essential (primary) hypertension (2) DM type 2 (diabetes mellitus, type 2): Qualified Codes: E11.59 - Type 2 diabetes mellitus with other circulatory complications (3) Hyperlipidemia: Qualified Codes: E78.00 - Pure hypercholesterolemia, unspecified Jacinto Collier MD R1 Apr 02, 2017 10:17
--- NOTE | 2017-04-02 13:35 | HHI.DCPOC ---
Discharge Care Plan Diagnosis: (1) DM type 2 (diabetes mellitus, type 2) (2) Chronic hyponatremia (3) COPD exacerbation (4) Elevated INR (5) Cocaine abuse Goals to Promote Your Health * To prevent worsening of your condition and complications * To maintain your health at the optimal level Directions to Meet Your Goals Take your medications as prescribed Follow your dietary instruction Follow activity as directed Keep your appointments as scheduled Take your immunizations and boosters as scheduled If your symptoms worsen call your PCP, if no PCP go to Urgent Care Center or Emergency Room Smoking is Dangerous to Your Health. Avoid second hand smoke Call the 24-hour hour crisis hotline for domestic abuse at Daniel Holguin MD, R2 Apr 02, 2017 13:35
[2017-04-02] MEDS ORDERED: ENOX80P SQ (13:39)
[2017-04-02] MEDS ORDERED: OXYGENTANK NAS.CANULA (13:39)
[2017-04-02] MEDS ORDERED: LEVA750T9 PO (13:39)
[2017-04-02] MEDS ORDERED: COUM4TAB PO (13:39)
--- NOTE | 2017-04-02 13:43 | HHI.FF ---
Face to Face Verification Diagnosis: (1) Warfarin anticoagulation (2) Chronic obstructive pulmonary disease (3) Shortness of breath (4) Hyponatremia (5) Cocaine abuse (6) Elevated INR (7) COPD exacerbation (8) Hyperlipidemia (9) DM type 2 (diabetes mellitus, type 2) (10) Hx of BKA Physical Therapy Order: Evaluate and Treat, Improve ambulation, Strength and gait training Occupational Therapy Order: Evaluate and Treat, Improve ADL, Gross motor coordination, Fine motor coordination I have seen patient Guanaco Salcedo on 04/02/17. My clinical findings support the need for the requested home health care services because: Ltd mobility - disease progression Patient has SOB Deconditioned w/ increased weakness High risk of falls Injectable med education/admin I certify that my clinical findings support that this patient is homebound because: Hx COPD- exertion dyspnea/weakness Unsteady gait/balance Daniel Holguin MD, R2 Apr 02, 2017 13:43
--- NOTE | 2017-04-02 14:33 | PD.WCN.NOT ---
Wound Consult Description: Wound consult ordered by Dr.Heyen Patel for Left below knee amputation. Communicated with: Art RN Dr.Faille Dahlia Recommendation: Monitor Dressing for exudate (drainage) reinforce if needed. Additional Information: Patient was seen today by marketing writer on for below knee amputation wound.Patient is alert in bed.Dressing (Puracol AG) removed from Left stump.Wound cleansed with normal saline pat dry measurements 0.2cm x 0.2cm x 0.1cm pink tissue wound bed.Puracol AG applied to wound base covered/secured with gentle foam dressing signed and dated.Patient has appointment for SaturdayApril 09 with out patient wound center. Healing bruising noted to Right Flank/ abdominal area from fall out of wheelchair.Patient tolerated wound care well.Report given to Art RN Danielle lane. Bong Wagner [facility] Apr 02, 2017 14:33
[2017-04-02] MEDS: WARFARIN SOD 4 MG TAB PO SCH (16:00)
[2017-04-02] MEDS: LEVOFLOXACIN 750 MG TAB PO SCH (16:11)
[2017-04-02] MEDS ORDERED: TYLE325T PO (16:43)
[2017-04-02] MEDS ORDERED: ACETAMINOPHEN/HYDROcodone 325 MG/5 MG TAB PO PRN (19:00)
[2017-04-02] MEDS: ATORVASTATIN 40 MG TAB PO SCH (19:47)
[2017-04-02] MEDS: ACETAMINOPHEN/HYDROcodone 325 MG/10 MG TAB PO PRN ×2 (19:52→23:56)
[2017-04-03 00:36] VITALS: BP 122/84; PULSE 83; RESP 18; TEMP 98.3; O2SAT 98
[2017-04-03] MEDS: ACETAMINOPHEN/HYDROcodone 325 MG/10 MG TAB PO PRN ×2 (04:31→08:32)
[2017-04-03 05:00] VITALS: BP 138/76; PULSE 103; RESP 18; TEMP 97.6; O2SAT 98
[2017-04-03] MEDS: ENOXAPARIN SODIUM 80 MG/0.8 ML SYRINGE SQ SCH (08:00)
[2017-04-03] MEDS: INSULIN ASPART SUPPLEMENTAL SCALE SQ SCH (08:00)
[2017-04-03 08:22] VITALS: BP 146/74; PULSE 79; RESP 18; TEMP 97.7; O2SAT 95
[2017-04-03] MEDS: METOPROLOL TARTRATE 50 MG TAB PO SCH (08:30)
[2017-04-03] MEDS: SPIRONOLACTONE 25 MG TAB PO SCH (08:30)
[2017-04-03] MEDS: GABAPENTIN 400 MG CAP PO SCH (08:31)
[2017-04-03] MEDS: FUROSEMIDE 20 MG TAB PO SCH (08:31)
[2017-04-03] MEDS: THIAMINE HCL 100 MG TAB PO SCH (08:31)
[2017-04-03] MEDS: PANTOPRAZOLE SOD 40 MG DELAYED RELEASE TAB PO SCH (08:31)
[2017-04-03] MEDS: MULTIVITAMINS/MINERALS THERAPEUTIC TAB PO SCH (08:31)
[2017-04-03] MEDS: predniSONE 50 MG TAB PO SCH (08:31)
[2017-04-03] MEDS: BUDESONIDE-FORMOTEROL 160/4.5 MCG INHALER INH SCH (08:34)
[2017-04-03] MEDS: SODIUM CHLORIDE 0.9% FLUSH 10 ML FLUSH IV FLUSH SCH (08:34)
[2017-04-03] MEDS: DOCUSATE SODIUM 50 MG/SENNA 8.6 MG TAB PO SCH (08:35)
--- NOTE | 2017-04-04 07:49 | HHI.DS ---
Discharge Summary Admission Date Mar 29, 2017 at 13:38 Discharge Date: Apr 04, 2017 Admitting Diagnosis hyponatremia, COPD exacerbation (1) Shortness of breath Diagnosis: Principal Plan: -Treat with Supplemental O2 to maintain sats above 90%. Encourage pt. to get OOB and ambulate. -Duonebs q4 hrs. kasey, Albuterol Q2 hrs PRN. -Continue empiric COPD treatment -Steroid therapy (Pt. rec'd Solu-Medrol 125 mg IV 1 in the ED) -IV solumedrol 40mg BID-->Transition to prednisone 50 mg by mouth daily tomorrow -Protonix 40 mg PO daily for GI protection and decr. chances of aspiration pneumonia. -Antibiotic therapy -Levaquin 750mg daily. Tylenol PRN. -Rib pain -Toradol PRN pain, morphine breakthrough pain -Incentive spirometer -Administer flu vaccine and pneumovax. Pt. has a pulmonary hx sig. for smoking, COPD. Pt. not on home O2. EKG shows RBBB. Rib XR benign BNP 60 Troponin x1 wnl ICD Codes: R06.02 - Shortness of breath Status: Acute (2) Hyponatremia Diagnosis: Principal Plan: Around 127 this morning, Asymptomatic -Continue diuresis medications; will consider reducing -Fluid and sodium restriction, <1000ml/day -Consider oral salt tablets -Consider loop diuretic Impression: Sodium of 120 on admission. Serum osmolarity 255, this with hypotonic hyponatremia. Urine sodium 15, urine osmolality 378 (low urine sodium) do not suspect primary polydipsia. Malnutrition possible, likely diuretic component Patient with slightly elevated fluid status, history of cardiomyopathy and edema in lower extremities. ICD Codes: E87.1 - Hypo-osmolality and hyponatremia Status: Acute (3) Elevated INR Diagnosis: Principal Plan: -Daily INRs (5.1-->3.5-->2.0-->1.4-->1.4) -Continue warfarin 4mg daily -Monitor for signs of bleeding. Atrial fibrillation, and was taking 4.5 mg of warfarin at home daily (recently decreased ~1 week ago for INR >6) ICD Codes: R79.1 - Abnormal coagulation profile (4) Cocaine abuse Diagnosis: Secondary Plan: UDS positive for cocaine on admission. 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 He currently sees wound care outpatient -Continue dressing changes -Consult wound care-appreciate recs ICD Codes: I83.029 - Varicose veins of left lower extremity with ulcer of unspecified site Status: Chronic (6) Paroxysmal atrial fibrillation Diagnosis: Secondary Plan: History of paroxysmal atrial fibrillation. Regular rate and rhythm today. -Continue home metoprolol -Hold warfarin for now due to therapeutic INR -Telemetry ICD Codes: I48.0 - Paroxysmal atrial fibrillation Status: Chronic (7) Hypertension Diagnosis: Secondary Plan: Impression: BP 160/88 on admission; recently normotensive -Continue metoprolol today -Clonidine PRN -Continue Lasix 20mg daily -Continue Spironolactone 25mg daily -Vitals q4H ICD Codes: I10 - Hypertension Status: Chronic (8) DM type 2 (diabetes mellitus, type 2) Diagnosis: Secondary Plan: Patient on metformin at home. Unsure of his last A1c or blood sugars at home. -Hold metformin -Start low-dose sliding scale insulin -Regular accuchecks ICD Codes: E11.9 - Type 2 diabetes mellitus without complications Status: Chronic (9) Alcohol intake above recommended sensible limits Diagnosis: Secondary Plan: Impression: He admits to drinking several beers every night. Denies any history of withdrawal -WA protocol -Discussed risks and benefits of quitting -Continue thiamine, multivitamin supplementation ICD Codes: Z72.89 - Other problems related to lifestyle Status: Chronic (10) Hyperlipidemia Diagnosis: Secondary Plan: -Continue home lipitor ICD Codes: E78.5 - Hyperlipidemia Status: Chronic (11) FEN/PPX Diagnosis: Secondary Plan: Fluids: PO, restrict Electrolytes: hyponatremia as above Nutrition: heart healthy diet DVT ppx: warfarin, may need to restart if INR drops<2 Status: Acute Brief History Mr. Salcedo is a 66-year-old male with history of hypertension, hyperlipidemia, cardiac myopathy, atrophic fibrillation, diabetes, COPD who presents today with shortness of breath and abdominal pain. He had an appointment with wound care nurse today, and was sent over here to difficulty breathing. He states when he is not moving, he has no difficulty breathing, but when he moves he has significant pain in his stomach which causes a difficulty breathing. 2 days ago, he said he coughed so hard that he had a vasovagal episode and fell out of his chair. He had the controls on his motorized wheelchair and developed a large bruise on his right lower stomach. Denies any chest pain. His PCP was Dr. Wood, but is now seen a PA in that office. States his cough has worsened lately. No change in phlegm color. No fever/chills, no nausea/vomiting. Has any sick contacts. He's been in a wheelchair for the last 6 years. He does not use oxygen at home. Denies any palpitations. Has sleep apnea, but doesn't use CPAP at night. Usually sleeps in a recliner. 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 He is Dr. Watson, and has had a chronic wound since then. Endorses a history of hyponatremia. Unsure of the cause he says. Does not drink a lot of water. CBC/BMP: 04/02/17 0340 04/02/17 0340 Significant Findings Laboratory Tests Test 04/02/17 03:40 Red Blood Count 3.52 MIL/MM3 (4.50-5.90) Hemoglobin 11.9 GM/DL (13.0-17.0) Hematocrit 34.6 % (39.0-51.0) Prothrombin Time 14.0 SEC (9.8-11.6) Blood Urea Nitrogen 26 MG/DL (7-18) Sodium Level 127 MEQ/L (136-145) Chloride Level 93 MEQ/L (98-107) Anion Gap 4 MEQ/L (5-15) Imaging Last Impressions Chest X-Ray 03/30/17 0000 Signed Impressions: Service Date/Time: Thursday, March 30, 2017 16:10 - CONCLUSION: No acute cardiopulmonary disease identified. Tahir Nobles MD Ribs X-Ray 03/29/17 0000 Signed Impressions: Service Date/Time: Wednesday, March 29, 2017 11:10 - CONCLUSION: No acute abnormality. Ricki Metzger Jr., MD Head CT 03/29/17 0000 Signed Impressions: Service Date/Time: Wednesday, March 29, 2017 12:12 - CONCLUSION: 1. Stable prominence or atrophy out of proportion to age. 2. No acute intracranial abnormality. Steve Barajas MD Abdomen/Pelvis CT 03/29/17 0000 Signed Impressions: Service Date/Time: Wednesday, March 29, 2017 12:16 - CONCLUSION: 1. No acute traumatic abnormality in the abdomen or pelvis. 2. Stable ancillary findings, as above. Steve Barajas MD PE at Discharge GENERAL: well developed, No acute distress RESPIRATORY: O2 via NC. Diffuse, bilateral coarse breath sounds. Prolonged expiratory phase with wheezing CARDIOVASCULAR: Regular rate and rhythm, no murmurs. Distant heart sounds. ABDOMEN: Obese and slightly distended. Tender over right abdominal bruise. Bowel sounds present. MUSCULOSKELETAL: Left BKA; not inspected. No R calf tenderness SKIN: Warm and dry. left wound on left leg covered in bandage. R abdominal bruising NEUROLOGICAL: Grossly normal cranial nerves. Grossly normal peripheral motor and sensory function PSYCHIATRIC: Mental status normal for age. Hospital Course Mr. Salcedo is a 66-year-old male with history of atrial fibrillation, COPD presented to the ED with worsening cough and shortness of breath. Upon arrival, he was found to have hyponatremia and elevated INR. He was on warfarin at home for his atrial fibrillation. His warfarin was held, until therapeutic, then restarted. Patient was kept on fluid restriction for his hyponatremia, which improved. He is also started on medications for COPD exacerbation, including steroids, antibiotics, and breathing treatments. Patient continued to improve the hospitalization, his breathing improved greatly. He did however required oxygen in the hospital, he was not in any at home. Patient failed his walk test, sitting up oxygen at home. Patient was discharged with therapeutic Lovenox and warfarin, to recheck his INR in a few days. He is also discharged home with Levaquin to complete treatment. Patient discharged in stable condition with repeat BMP and INR in a few days, and follow-up with his PCP. Pt Condition on Discharge: Stable Discharge Disposition: Disch w/ Home Health Serv Discharge Instructions DIET: Follow Instructions for: Heart Healthy Diet Activities you can perform: Regular-No Restrictions Follow up Referrals: PCP Follow-up - 2-3 Days PCP Follow-up New Orders: BASIC METABOLIC PROF - 2-3 Days PT/INR - 2-3 Days New Medications: Hydrocodone-Acetaminophen ([place]) 10-325 Mg Tab 1 TAB PO Q6H PRN for PAIN, #20 TAB 0 Refills Oxygen tank (Oxygen tank) 1 Ea Tank LITER HANNAH.CANULA CONTINUOUS for HYPOXEMIA PREVENTION, #1 99 Refills Oxygen Concentrator Portable Gaseous 2 L/min via Nasal Cannula Continuous For 99 months Enoxaparin Inj (Lovenox Inj) 80 mg/0.8 ML Syr 86 MG SQ Q12H, #30 INJECTION Levofloxacin (Levaquin) 750 Mg Tablet 750 MG PO Q24H, #3 TAB Warfarin (Coumadin) 4 Mg Tab 4 MG PO DAILY@16, #30 TAB Continued Medications: Albuterol 18 GM Inh (Ventolin Hfa 18 GM Inh) 90 Mcg/Act Aer 2 PUFF INH Q4-6H PRN for SHORTNESS OF BREATH, #1 INHALER [address] (Aspirin EC) 81 Mg Tabdr 81 MG PO DAILY, #30 TAB 1 Refill Atorvastatin (Atorvastatin) 40 Mg Tab 40 MG PO HS for Cholesterol Management, #30 TAB 2 Refills Bedside Commode (Bedside Commode) 1 Mis Mis 1 EA .ROUTE DIRECTED, #1 EA Budesonide-Formoterol Inh (Symbicort Inh) 160-4.5 Mcg/Act Aero 2 PUFF INH Q12HR, #1 INHALER 1 Refill Clotrimazole Topical (Clotrimazole Anti-Fungal Topical) 1% Cream 1 APPLIC TOPICAL Q12HR for 10 Days, TUBE 0 Refills Diphenhydramine HCl (Benadryl Allergy) 25 Mg Cap 25 MG PO Q6H PRN for itching, #30 CAP Furosemide (Lasix) 20 Mg Tab 20 MG PO DAILY, #30 TAB 1 Refill Gabapentin (Gabapentin) 800 Mg Tab 800 MG PO TID, #90 TAB 1 Refill Ipratropium-Albuterol Neb (Duoneb) 0.5-2.5 Mg/3 Ml Neb 1 AMPULE NEB Q6HR PRN for SHORTNESS OF BREATH, #180 ML 1 Refill Metformin (Glucophage) 500 Mg Tab 500 MG PO BIDPC for Blood Sugar Management, #60 TAB 3 Refills With meals Metoprolol Tartrate (Metoprolol Tartrate) 50 Mg Tab 50 MG PO BID, #60 TAB 1 Refill Multiple Vitamins W/ Minerals (Thera M Plus) 1 Tab 1 TAB PO DAILY for Nutritional Supplement, #30 TAB 1 Refill Pantoprazole (Protonix) 40 Mg Tab 40 MG PO DAILY for Reflux, #90 TAB 3 Refills Spironolactone (Spironolactone) 25 Mg Tab 25 MG PO DAILY, #30 TAB 2 Refills Thiamine (Vitamin B-1) 100 Mg Tab 100 MG PO DAILY for Nutritional Supplement, TAB 0 Refills Walker Rolling/GetGo (Walker Rolling/GetGo) 1 Mis Mis 1 EA .ROUTE DIRECTED, #1 EA Discontinued Medications: Levofloxacin (Levaquin) 750 Mg Tablet 750 MG PO DAILY for Infection, #5 TAB 0 Refills Levofloxacin (Levofloxacin) 750 Mg Tablet 750 MG PO DAILY for Infection, #7 TAB 0 Refills Linezolid (Linezolid) 600 Mg Tab 600 MG PO Q12H for Infection, #14 TAB 0 Refills Warfarin (Warfarin) 4 Mg Tab 4.5 MG PO DAILY for Blood Clot Prevention, #30 TAB 0 Refills Daniel Holguin MD, R2 Apr 04, 2017 07:49
[2017-04-04] MEDS ORDERED: HYDR-3366 PO (08:55)
[2017-04-04] MEDS ORDERED: METO50TA PO ×2 (12:20→16:27)
== END 2017-04-03 08:58 | disposition home health service (06) | DRG 191 ==
LOC: NEPC 10:27 → NEDA 13:38 → N05A 16:11
PROVIDERS: ADMIT Family Medicine; ATTEND Family Medicine
PROC: 3E0F7GC Introduction of Other Therapeutic Substance into Respiratory Tract, Via Natural or Artificial Opening (ICD-10-PCS; principal; 2017-03-29)
DX: J44.1 Chronic obstructive pulmonary disease with (acute) exacerbation (principal); E87.1 Hypo-osmolality and hyponatremia; E46 Unspecified protein-calorie malnutrition; I42.9 Cardiomyopathy, unspecified; I11.0 Hypertensive heart disease with heart failure; I50.9 Heart failure, unspecified; E11.622 Type 2 diabetes mellitus with other skin ulcer; I48.0 Paroxysmal atrial fibrillation; L97.929 Non-pressure chronic ulcer of unspecified part of left lower leg with unspecified severity; E78.5 Hyperlipidemia, unspecified; M19.90 Unspecified osteoarthritis, unspecified site; F41.9 Anxiety disorder, unspecified; I25.10 Atherosclerotic heart disease of native coronary artery without angina pectoris; R07.81 Pleurodynia; S30.1XXA Contusion of abdominal wall, initial encounter; F17.210 Nicotine dependence, cigarettes, uncomplicated; G47.30 Sleep apnea, unspecified; F14.10 Cocaine abuse, uncomplicated; T87.89 Other complications of amputation stump; F32.9 Major depressive disorder, single episode, unspecified; Z86.73 Personal history of transient ischemic attack (TIA), and cerebral infarction without residual deficits; Z87.442 Personal history of urinary calculi; W05.0XXA Fall from non-moving wheelchair, initial encounter; Y93.9 Activity, unspecified; Y92.9 Unspecified place or not applicable; Z80.0 Family history of malignant neoplasm of digestive organs; I45.10 Unspecified right bundle-branch block; I83.029 Varicose veins of left lower extremity with ulcer of unspecified site; Z72.89 Other problems related to lifestyle; Z79.01 Long term (current) use of anticoagulants; Z85.828 Personal history of other malignant neoplasm of skin; Z95.1 Presence of aortocoronary bypass graft; Z89.512 Acquired absence of left leg below knee; Z91.19 Patient's noncompliance with other medical treatment and regimen
CPT/HCPCS: 70450; 71010; 71101; 74177; 80048; 80053; 80307; 81001; 82565; 82948; 83735; 83880; 83935; 84100; 84300; 84484; 85025; 85027; 85610; 85730; 87070; 87205; 93005; 94150; 94620; 94640; 94664; 96374; J1650; J1815; J1885; J2270; J2920; J2930; J7512; J7613; Q9967

== ENCOUNTER 2017-06-28 14:48 | Inpatient (IN) | payer MEDICARE, OTHER ==
[2017-06-28] VITALS (11 sets, daily range): BP systolic 116–155; BP diastolic 56–91; PULSE 63–143; RESP 16–22; TEMP 97.8–98; O2SAT 90–99
[~2017-06-28] VITALS: Ht 175.3 cm; Wt 76.3 kg
[~2017-06-28 14:48] MED LIST changes: +ACET1TAB63; +COUM4TAB PO; +ENOX80P SQ; -LACTTAB8 PO; -LEVO750T3 PO; -LINE1TAB PO; +OXYGENTANK NAS.CANULA; -PRED20 PO; -WARF-20 PO; -WARF-23 PO; -WARF4TAB52 PO; -guaiFEN-COD 200-20 MG/10ML LIQ PO
[2017-06-28] MEDS ORDERED: methylPREDNISolone SOD SUCC 125 MG/2 ML VIAL IV PUSH ONE (16:15)
[2017-06-28] MEDS ORDERED: SODIUM CHLORIDE 0.9% FLUSH 10 ML FLUSH IVF PRN (16:15)
--- NOTE | 2017-06-28 16:22 | PD ---
HPI Chief Complaint: Skin Problem Time Seen by Provider: 16:15 Travel History International Travel<30 days: No Contact w/Intl Traveler<30days: No Traveled to known affect area: No History of Present Illness HPI 66-year-old male patient with history of CAD status post CABG, hypertension, diabetes, peripheral vascular disease status post left BKA, COPD currently on home O2, presents to the ER today because he has been having several days of worsening shortness of breath, and states that his right elbow has started hurting since yesterday. He states he thinks there is a skin infection there. He denies any chest pains, fevers, vomiting, abdominal pain, or other symptoms. Modifying Factors: None Associated Signs & Symptoms: right elbow pain, swelling, increased shortness of breath Risk Factors: COPD history, diabetic PFSH Past Medical History Hx Anticoagulant Therapy: Yes Arthritis: Yes Asthma: No Autoimmune Disease: No Anxiety: Yes Depression: Yes Heart Rhythm Problems: Yes Cancer: Yes (skin cancer LEFT WRIST) Cardiac Catheterization: Yes (CAD) Cardiovascular Problems: Yes High Cholesterol: Yes Chemotherapy: No Chest Pain: Yes Congestive Heart Failure: Yes COPD: Yes Cerebrovascular Accident: Yes Diabetes: Yes Patient Takes Glucophage: Yes (out of med last taken a few days ago) Diminished Hearing: No Endocrine: Yes Gastrointestinal Disorders: Yes GERD: No Genitourinary: Yes Headaches: No Hiatal Hernia: No Hypertension: Yes Immune Disorder: No Implanted Vascular Access Dvce: No Kidney Stones: Yes (25+ years ago) Musculoskeletal: Yes Neurologic: Yes Psychiatric: Yes Reproductive: No Respiratory: Yes Immunizations Current: Yes Migraines: No Myocardial Infarction: No (bypass) Radiation Therapy: No Renal Failure: No Seizures: Yes (as a child) Sickle Cell Disease: No Sleep Apnea: Yes Thyroid Disease: No Ulcer: No Tetanus Vaccination: < 5 Years Influenza Vaccination: Yes PNEUMOCCOCAL Vaccine (Year): 1 Past Surgical History Abdominal Surgery: Yes (aortic aneurysm repair) AICD: No Arteriovenous Shunt: No Cardiac Surgery: Yes (CABG x4 Mar 2014) Coronary Artery Bypass Graft: Yes Ear Surgery: No Endocrine Surgery: No Eye Surgery: No Genitourinary Surgery: No Gynecologic Surgery: No Insulin Pump: No Joint Replacement: No Neurologic Surgery: No Oral Surgery: No Pacemaker: No Thoracic Surgery: Yes Other Surgery: Yes (SKIN CANCER REMOVED) Social History Alcohol Use: Yes (2-6 BEERS DAILY) Tobacco Use: Yes (A LITTLE MORE THAN ONE PPD) Substance Use: No Allergies-Medications (Allergen,Severity, Reaction): Coded Allergies: cefaclor (Verified Allergy, Intermediate, rash, 06/28/17) Reported Meds & Prescriptions Reported Meds & Active Scripts Active Metoprolol Tartrate 50 Mg Tab 50 Mg PO BID Coumadin (Warfarin) 4 Mg Tab 4 Mg PO DAILY@16 Oxygen tank (Oxygen) 1 Ea Tank Liter HANNAH.CANULA CONTINUOUS Oxygen Concentrator Portable Gaseous 2 L/min via Nasal Cannula Continuous For 99 months Spironolactone 25 Mg Tab 25 Mg PO DAILY Atorvastatin (Atorvastatin Calcium) 40 Mg Tab 40 Mg PO HS Protonix (Pantoprazole Sodium) 40 Mg Tab 40 Mg PO DAILY Duoneb (Ipratropium-Albuterol Neb) 0.5-2.5 Mg/3 Ml Neb 1 Ampule NEB Q6HR PRN Glucophage (Metformin HCl) 500 Mg Tab 500 Mg PO BIDPC With meals Ventolin Hfa 18 GM Inh (Albuterol Sulfate) 90 Mcg/Act Aer 2 Puff INH Q4-6H PRN Gabapentin 800 Mg Tab 800 Mg PO TID Lasix (Furosemide) 20 Mg Tab 20 Mg PO DAILY Symbicort Inh (Budesonide/Formoterol Fumarate) 160-4.5 Mcg/Act Aero 2 Puff INH Q12HR Aspirin EC (Aspirin) 81 Mg Tabdr 81 Mg PO DAILY Thera M Plus (Multivitamins/Minerals Therapeutic) 1 Tab 1 Tab PO DAILY Bedside Commode (Device) 1 Mis Mis 1 Ea .ROUTE DIRECTED Walker Rolling/GetGo (Device) 1 Mis Mis 1 Ea .ROUTE DIRECTED Reported Vitamin B-1 (Thiamine HCl) 100 Mg Tab 100 Mg PO DAILY Review of Systems Except as stated in HPI: all other systems reviewed are Neg Physical Exam Narrative GENERAL: Well-developed elderly male patient currently and moderate respiratory distress. Awake and oriented 3. SKIN: Focused skin assessment warm/dry. HEAD: Atraumatic. Normocephalic. EYES: Pupils equal and round. No scleral icterus. No injection or drainage. ENT: No nasal bleeding or discharge. Mucous membranes pink and moist. NECK: Trachea midline. No JVD. CARDIOVASCULAR: Regular rate and rhythm. No murmur appreciated. RESPIRATORY: Moderate accessory muscle use. Wheezing throughout. Breath sounds equal bilaterally. GASTROINTESTINAL: Abdomen soft, non-tender, nondistended. Hepatic and splenic margins not palpable. MUSCULOSKELETAL: No clubbing. No cyanosis. No edema. there is notable erythema and edema over the right Medial elbow area. Mildly tender to palpation. Nontender range of motion of the elbow. Status post left BKA. NEUROLOGICAL: Awake and alert. No obvious cranial nerve deficits. Motor grossly within normal limits. Normal speech. PSYCHIATRIC: Appropriate mood and affect; insight and judgment normal. Data Data Last Documented VS Vital Signs Date Time Temp Pulse Resp B/P (MAP) Pulse Ox O2 Delivery O2 Flow Rate FiO2 06/28/17 17:10 88 18 153/88 (109) 95 Room Air 06/28/17 17:05 2.00 06/28/17 14:51 97.8 Orders Orders Complete Blood Count With Diff (06/28/17 16:15) Comprehensive Metabolic Panel (06/28/17 16:15) B-Type Natriuretic Peptide (06/28/17 16:15) Blood Culture (06/28/17 16:15) Iv Access Insert/Monitor (06/28/17 16:15) Ecg Monitoring (06/28/17 16:15) Oximetry (06/28/17 16:15) Oxygen Administration (06/28/17 16:15) Chest, Single Ap (06/28/17 16:15) Sodium Chloride 0.9% Flush (Ns Flush) (06/28/17 16:15) Methylprednisolone So Succ Inj (Solumedr (06/28/17 16:15) Albuterol-Ipratropium Neb (Duoneb Neb) (06/28/17 16:15) Elbow, Limited (Ap&Lat) (06/28/17 16:15) Sodium Chlor 0.9% 1000 Ml Inj (Ns 1000 M (06/28/17 17:45) Admit Order (Ed Use Only) (06/28/17 18:02) Labs Laboratory Tests Test 06/28/17 16:20 White Blood Count 7.0 TH/MM3 Red Blood Count 4.04 MIL/MM3 Hemoglobin 11.9 GM/DL Hematocrit 36.2 % Mean Corpuscular Volume 89.4 FL Mean Corpuscular Hemoglobin 29.4 PG Mean Corpuscular Hemoglobin Concent 32.8 % Red Cell Distribution Width 15.9 % Platelet Count 220 TH/MM3 Mean Platelet Volume 8.3 FL Neutrophils (%) (Auto) 76.7 % Lymphocytes (%) (Auto) 10.2 % Monocytes (%) (Auto) 8.8 % Eosinophils (%) (Auto) 3.7 % Basophils (%) (Auto) 0.6 % Neutrophils # (Auto) 5.4 TH/MM3 Lymphocytes # (Auto) 0.7 TH/MM3 Monocytes # (Auto) 0.6 TH/MM3 Eosinophils # (Auto) 0.3 TH/MM3 Basophils # (Auto) 0.0 TH/MM3 CBC Comment DIFF FINAL Differential Comment Blood Urea Nitrogen 7 MG/DL Creatinine 0.61 MG/DL Random Glucose 136 MG/DL Total Protein 7.8 GM/DL Albumin 3.6 GM/DL Calcium Level 8.7 MG/DL Alkaline Phosphatase 106 U/L Aspartate Amino Transf (AST/SGOT) 27 U/L Alanine Aminotransferase (ALT/SGPT) 16 U/L Total Bilirubin 0.3 MG/DL Sodium Level 118 MEQ/L Potassium Level 4.5 MEQ/L Chloride Level 84 MEQ/L Carbon Dioxide Level 24.4 MEQ/L Anion Gap 10 MEQ/L Estimat Glomerular Filtration Rate 133 ML/MIN B-Type Natriuretic Peptide 47 PG/ML MDM Medical Decision Making Medical Screen Exam Complete: Yes Emergency Medical Condition: Yes Medical Record Reviewed: Yes Interpretation(s) Laboratory Tests Test 06/28/17 16:20 Red Blood Count 4.04 MIL/MM3 (4.50-5.90) Hemoglobin 11.9 GM/DL (13.0-17.0) Hematocrit 36.2 % (39.0-51.0) Neutrophils (%) (Auto) 76.7 % (16.0-70.0) Monocytes (%) (Auto) 8.8 % (0.0-8.0) Lymphocytes # (Auto) 0.7 TH/MM3 (1.0-4.8) Random Glucose 136 MG/DL (74-106) Sodium Level 118 MEQ/L (136-145) Chloride Level 84 MEQ/L (98-107) Last 24 hours Impressions Elbow X-Ray 06/28/171614 Signed Impressions: Service Date/Time: Wednesday, June 28, 2017 16:22 - CONCLUSION: Mild osteoarthritis. No acute abnormality. Ricki Metzger Jr., MD Chest X-Ray 06/28/171614 Signed Impressions: Service Date/Time: Wednesday, June 28, 2017 16:22 - CONCLUSION: Hyperinflation suggesting COPD. No acute infiltrate or effusion. Ricki Metzger Jr., MD Differential Diagnosis Right elbow pain, shortness of breath: Contusions versus cellulitis versus arthritis, COPD exacerbation versus CHF versus pneumonia Narrative Course Patient was given Solu-Medrol and nebulizers in the ER for his COPD exacerbation. His primary care physician called me and states that he has been doing poorly with a COPD and they would like him to be medically admitted for further treatment for COPD. Lab work shows significant hyponatremia. IV fluids were initiated in the ER. Chest x-ray did not show any signs of acute pulmonary processes. He does have some cellulitis of the right elbow and IV antibiotics were initiated in the ER. At this point, case is discussed with Dr. Marrero for admission. She would like him to be admitted to stepdown unit or ICU due to the electrolyte abnormality. Aggregate critical care time was 25 minutes. Time to perform other separately billable procedures was not included in the critical care time. My time did not include minutes spent treating any other patients simultaneously or on activities that did not directly contribute to the patient's treatment. The services I provided to this patient were to treat and/or prevent clinically significant deterioration that could result in: Seizures, cardiac dysrhythmias, respiratory arrest, I provided critical care services requiring my management, as noted below: Chart data review, documentation time, medication orders and management, vital sign assessments/reviewing monitor data, ordering and reviewing lab tests, ordering and interpreting/reviewing x-rays and diagnostic studies, care of the patient and discussion of the patient with the admitting physicians. Diagnosis Primary Impression: COPD exacerbation Additional Impressions: Hyponatremia Right arm cellulitis Admitting Information Admitting Physician Requests: Admit Adilene Medrano MD Jun 28, 2017 16:22
[2017-06-28] MEDS: RESP: ALBUTEROL 2.5 MG/IPRATROPIUM 0.5 MG NEB (SCH) INH ×2 (16:34→16:35)
--- NOTE | 2017-06-28 16:48 | RADRPT ---
EXAM DATE/TIME: 06/28/2017 16:22 [facility] COMPARISON: CHEST SINGLE AP, March 30, 2017, 16:10. INDICATIONS : Shortness of breath. MEDICAL HISTORY : Cardiovascular disease. Cerebrovascular disease. Hypertension.Cardiac. Diabetes SURGICAL HISTORY : Abdominal aortic aneurysm repair. CABG Left BKA ENCOUNTER: Initial ACUITY: 1 day PAIN SCORE: 0/10 LOCATION: Bilateral chest FINDINGS: 2 portable frontal views of the chest show the lungs to be hyperaerated. No discrete infiltrate or ef fusion. Heart is normal in size. Median sternotomy wires. CONCLUSION: Hyperinflation suggesting COPD. No acute infiltrate or effusion. Ricki Metzger Jr., MD on June 28, 2017 at 16:37 Board Certified Radiologist. This report was verified electronically.
--- NOTE | 2017-06-28 16:54 | RADRPT ---
EXAM DATE/TIME: 06/28/2017 16:22 [facility] COMPARISON: No previous studies available for comparison. INDICATIONS : Right elbow redness and swelling. No known injury. MEDICAL HISTORY : Cardiovascular disease. Cerebrovascular disease. Hypertension.Cardiac. Diabetes SURGICAL HISTORY : Abdominal aortic aneurysm repair. CABG Left BKA ENCOUNTER: Initial ACUITY: 2 days PAIN SCORE: 7/10 LOCATION: Right upper extremity FINDINGS: Two view examination of the right elbow demonstrates no soft tissue swelling, joint effusion, fractur e or dislocation. A small osteophyte involving the coronoid process. Bony mineralization is normal. Atherosclerotic calcifications noted. CONCLUSION: Mild osteoarthritis. No acute abnormality. Ricki Metzger Jr., MD on June 28, 2017 at 16:49 Board Certified Radiologist. This report was verified electronically.
[2017-06-28 17:28] LABS: ALBUMIN 3.6 GM/DL (3.4-5.0); ALKALINE PHOSPHATASE 106 U/L (45-117); ALT (GPT) 16 U/L (12-78); AST (GOT) 27 U/L (15-37); BICARBONATE 24.4 MEQ/L (21.0-32.0); BLOOD UREA NITROGEN 7 MG/DL (7-18); CALCIUM 8.7 MG/DL (8.5-10.1); CHLORIDE 84 MEQ/L (98-107); CREATININE 0.61 MG/DL (0.60-1.30); GLOMERULAR FILTRATION RATE 133 ML/MIN (>89); GLUCOSE,RANDOM 136 MG/DL (74-106); TOTAL BILIRUBIN ADULT 0.3 MG/DL (0.2-1.0); TOTAL PROTEIN 7.8 GM/DL (6.4-8.2)
[2017-06-28 17:32] LABS: SODIUM (NA) 118 MEQ/L (136-145)
[2017-06-28 17:35] LABS: AUTOMATED NEUTROPHIL # 5.4 TH/MM3 (1.8-7.7); BASOPHIL % 0.6 % (0.0-2.0); EOSINOPHIL # 0.3 TH/MM3 (0-0.4); EOSINOPHIL % 3.7 % (0.0-4.0); HEMATOCRIT 36.2 % (39.0-51.0); HEMOGLOBIN 11.9 GM/DL (13.0-17.0); LYMPH % 10.2 % (9.0-44.0); LYMPHOCYTE # 0.7 TH/MM3 (1.0-4.8); MEAN CELL VOLUME 89.4 FL (80.0-100.0); MEAN CORPUSCULAR HEMOGLOBIN 29.4 PG (27.0-34.0); MEAN CORPUSCULAR HGB CONC 32.8 % (32.0-36.0); MEAN PLATELET VOLUME 8.3 FL (7.0-11.0); MONO % 8.8 % (0.0-8.0); MONOCYTE # 0.6 TH/MM3 (0-0.9); NEUT % 76.7 % (16.0-70.0); PLATELET COUNT 220 TH/MM3 (150-450); RED BLOOD COUNT 4.04 MIL/MM3 (4.50-5.90); RED CELL DISTRIBUTION WIDTH 15.9 % (11.6-17.2)
[2017-06-28] MEDS ORDERED: SODIUM CHLOR 0.9% 1000 ML INJ 1,000 ML IV ONE (17:45)
[2017-06-28] MEDS ORDERED: ONDANSETRON HCL 4 MG/2 ML VIAL IVP PRN (18:00)
[2017-06-28] MEDS ORDERED: NALOXONE HCL 0.4 MG/ML AMP IV PUSH PRN (18:00)
[2017-06-28] MEDS ORDERED: ACETAMINOPHEN 325 MG TAB PO PRN (18:00)
[2017-06-28] MEDS ORDERED: MAGNESIUM HYDROXIDE SUSP 30 ML CUP PO PRN (18:00)
[2017-06-28] MEDS ORDERED: RESP: ALBUTEROL 2.5 MG/IPRATROPIUM 0.5 MG NEB (PRN) NEB (18:00)
[2017-06-28] MEDS ORDERED: SODIUM CHLORIDE 0.9% FLUSH 10 ML FLUSH IV FLUSH PRN (18:00)
[2017-06-28] MEDS ORDERED: GLUCAGON 1 MG/ML VIAL OTHER PRN (18:00)
[2017-06-28] MEDS ORDERED: DEXTROSE 50% IN WATER 50 ML VIAL(D50) IV PUSH PRN (18:00)
[2017-06-28 18:47] LABS: INTERNATIONAL NORMALIZED RATIO 1.5 RATIO; PROTHROMBIN TIME - PATIENT 15.4 SEC (9.8-11.6)
[2017-06-28] MEDS: LEVOFLOXACIN 500 MG PREMIX INJ 100 ML IV SCH (18:52)
[2017-06-28] MEDS: GABAPENTIN 400 MG CAP PO SCH (19:26)
[2017-06-28] MEDS: SODIUM CHLOR 0.9% 1000 ML INJ 1,000 ML IV SCH (20:31)
[2017-06-28] MEDS: SODIUM CHLORIDE 0.9% FLUSH 10 ML FLUSH IV FLUSH SCH (21:00)
[2017-06-28] MEDS: ATORVASTATIN 40 MG TAB PO SCH (22:03)
[2017-06-28] MEDS: METOPROLOL TARTRATE 50 MG TAB PO SCH (22:03)
[2017-06-28] MEDS: INSULIN ASPART SUPPLEMENTAL SCALE SQ SCH (22:05)
[2017-06-28] MEDS: RESP: ALBUTEROL 2.5 MG/IPRATROPIUM 0.5 MG NEB (SCH) NEB (22:12)
[2017-06-28] MEDS: methylPREDNISolone SOD SUCC 40 MG/1 ML VIAL IV PUSH SCH (22:36)
[2017-06-28 23:26] LABS: BICARBONATE 24.6 MEQ/L (21.0-32.0); CALCIUM 8.2 MG/DL (8.5-10.1); CREATININE 0.51 MG/DL (0.60-1.30)
[2017-06-29] VITALS (9 sets, daily range): BP systolic 114–146; BP diastolic 60–78; PULSE 68–110; RESP 16–22; TEMP 97.8–98.2; O2SAT 94–100
[2017-06-29] MEDS: ACETAMINOPHEN/HYDROcodone 325 MG/5 MG TAB PO PRN ×2 (02:10→22:37)
[2017-06-29] MEDS: SODIUM CHLOR 0.9% 1000 ML INJ 1,000 ML IV SCH ×2 (03:00→17:55)
[2017-06-29] MEDS: RESP: ALBUTEROL 2.5 MG/IPRATROPIUM 0.5 MG NEB (SCH) NEB ×3 (07:50→20:00)
[2017-06-29] MEDS: GABAPENTIN 400 MG CAP PO SCH ×3 (09:24→17:54)
[2017-06-29] MEDS: METOPROLOL TARTRATE 50 MG TAB PO SCH ×2 (09:24→22:37)
[2017-06-29] MEDS: SPIRONOLACTONE 25 MG TAB PO SCH (09:24)
[2017-06-29] MEDS: ACETAMINOPHEN/HYDROcodone 325 MG/10 MG TAB PO PRN (09:24)
[2017-06-29] MEDS: SODIUM CHLORIDE 0.9% FLUSH 10 ML FLUSH IV FLUSH SCH ×2 (09:25→22:38)
--- NOTE | 2017-06-29 10:55 | HHI.HP ---
HPI Service [facility] Primary Care Physician Nahed Villaseñor MD Admission Diagnosis COPD exacerbation/severe hyponatremia/right elbow cellulitis Diagnoses: Chief Complaint: Shortness of breath, right elbow infection Travel History International Travel<30 Days: No Contact w/Intl Traveler <30 Da: No Traveled to Known Affected Are: No History of Present Illness 66-year-old male with a medical history significant for COPD, CAD, A. fib, hypertension, diabetes, PAD status post left BKA who presented to the hospital with complaint of worsening shortness of breath over the past couple of weeks. Patient also reports right elbow swelling and redness that has been ongoing for about 1-2 days. He was seen at his primary care's office and was sent to the hospital. Patient denies any fevers or chills. He does have a dry cough. He continues to smoke heavily up to 1 pack per day. He also drinks 2+ beers daily. On my evaluation, the patient reports that he is feeling better since arriving in the hospital. He denies any chest pain. Review of Systems Constitutional: COMPLAINS OF: Fatigue, DENIES: Fever, Chills Respiratory: COMPLAINS OF: Cough, Wheezing, Shortness of breath Cardiovascular: DENIES: Chest pain Gastrointestinal: DENIES: Nausea, Vomiting Except as stated in HPI: all other systems reviewed are Neg Past Family Social History Past Medical History COPD, CAD, A. fib, hypertension, diabetes, PAD status post left BKA Past Surgical History History of CABG History of left BKA Arterial bifemoral bypass Femorofemoral bypass Tonsillectomy Cholecystectomy Reported Medications Reported Meds & Active Scripts Active Metoprolol Tartrate 50 Mg Tab 50 Mg PO BID Coumadin (Warfarin) 4 Mg Tab 4 Mg PO DAILY@16 Oxygen tank (Oxygen) 1 Ea Tank Liter HANNAH.CANULA CONTINUOUS Oxygen Concentrator Portable Gaseous 2 L/min via Nasal Cannula Continuous For 99 months Spironolactone 25 Mg Tab 25 Mg PO DAILY Atorvastatin (Atorvastatin Calcium) 40 Mg Tab 40 Mg PO HS Protonix (Pantoprazole Sodium) 40 Mg Tab 40 Mg PO DAILY Duoneb (Ipratropium-Albuterol Neb) 0.5-2.5 Mg/3 Ml Neb 1 Ampule NEB Q6HR PRN Glucophage (Metformin HCl) 500 Mg Tab 500 Mg PO BIDPC With meals Ventolin Hfa 18 GM Inh (Albuterol Sulfate) 90 Mcg/Act Aer 2 Puff INH Q4-6H PRN Gabapentin 800 Mg Tab 800 Mg PO TID Lasix (Furosemide) 20 Mg Tab 20 Mg PO DAILY Symbicort Inh (Budesonide/Formoterol Fumarate) 160-4.5 Mcg/Act Aero 2 Puff INH Q12HR Aspirin EC (Aspirin) 81 Mg Tabdr 81 Mg PO DAILY Thera M Plus (Multivitamins/Minerals Therapeutic) 1 Tab 1 Tab PO DAILY Bedside Commode (Device) 1 Mis Mis 1 Ea .ROUTE DIRECTED Walker Rolling/GetGo (Device) 1 Mis Mis 1 Ea .ROUTE DIRECTED Reported Vitamin B-1 (Thiamine HCl) 100 Mg Tab 100 Mg PO DAILY Allergies: Coded Allergies: cefaclor (Verified Allergy, Intermediate, rash, 06/28/17) Family History Father from stomach cancer. Social History Patient is wheelchair-bound. He is a lifelong smoker, 50+ years, at least one pack per day. He drinks at least 2 beers daily. He denies illicit drug use. Physical Exam Vital Signs Vital Signs Date Time Temp Pulse Resp B/P (MAP) Pulse Ox O2 Delivery O2 Flow Rate FiO2 06/29/17 08:15 97.8 77 18 129/62 (84) 95 06/29/17 08:15 77 06/29/17 07:50 96 Nasal Cannula 2.00 06/29/17 04:00 98.0 71 18 114/69 (84) 94 06/29/17 03:10 06/29/17 02:40 69 18 144/73 (96) 96 Nasal Cannula 2.00 06/29/17 02:00 76 20 06/29/17 01:41 68 18 123/68 (86) 98 Nasal Cannula 2.00 06/28/17 23:10 98.0 63 18 129/71 (90) 99 Nasal Cannula 2.00 06/28/17 22:00 93 Nasal Cannula 2.00 06/28/17 21:45 75 18 133/86 (102) 97 Nasal Cannula 2.00 06/28/17 21:30 75 19 06/28/17 20:39 83 20 143/58 (86) 98 Room Air 06/28/17 20:34 76 20 140/72 (94) 97 Nasal Cannula 2.00 06/28/17 18:37 79 22 155/91 (112) 97 Nasal Cannula 2.00 06/28/17 17:10 88 18 153/88 (109) 95 Room Air 06/28/17 17:05 76 20 138/74 (95) 99 Nasal Cannula 2.00 06/28/17 16:39 99 Nasal Cannula 2.00 06/28/17 16:10 94 Nasal Cannula 2.00 06/28/17 16:10 Nasal Cannula 2.00 06/28/17 14:51 97.8 143 16 116/56 (76) 90 Physical Exam GENERAL: Chronically ill-appearing male. SKIN: Right elbow has resolving cellulitis. HEAD: Atraumatic. Normocephalic. No temporal or scalp tenderness. EYES: Pupils equal round and reactive. Extraocular motions intact. No scleral icterus. No injection or drainage. ENT: Nose without bleeding, purulent drainage or septal hematoma. Throat without erythema, tonsillar hypertrophy or exudate. Uvula midline. Airway patent. NECK: Trachea midline. No JVD or lymphadenopathy. Supple, nontender, no meningeal signs. CARDIOVASCULAR: Regular rate and rhythm without murmurs, gallops, or rubs. RESPIRATORY: Very poor air movement. Very tight. Diffuse wheezing throughout bilaterally. GASTROINTESTINAL: Abdomen soft, non-tender, nondistended. MUSCULOSKELETAL: Status post left BKA NEUROLOGICAL: Awake and alert. Cranial nerves II through XII intact. Motor and sensory grossly within normal limits. Five out of 5 muscle strength in all muscle groups. Normal speech. Laboratory Laboratory Tests Test 06/28/17 16:20 06/28/17 22:35 White Blood Count 7.0 Red Blood Count 4.04 Hemoglobin 11.9 Hematocrit 36.2 Mean Corpuscular Volume 89.4 Mean Corpuscular Hemoglobin 29.4 Mean Corpuscular Hemoglobin Concent 32.8 Red Cell Distribution Width 15.9 Platelet Count 220 Mean Platelet Volume 8.3 Neutrophils (%) (Auto) 76.7 Lymphocytes (%) (Auto) 10.2 Monocytes (%) (Auto) 8.8 Eosinophils (%) (Auto) 3.7 Basophils (%) (Auto) 0.6 Neutrophils # (Auto) 5.4 Lymphocytes # (Auto) 0.7 Monocytes # (Auto) 0.6 Eosinophils # (Auto) 0.3 Basophils # (Auto) 0.0 CBC Comment DIFF FINAL Differential Comment Prothrombin Time 15.4 Prothromb Time International Ratio 1.5 Blood Urea Nitrogen 7 8 Creatinine 0.61 0.51 Random Glucose 136 157 Total Protein 7.8 Albumin 3.6 Calcium Level 8.7 8.2 Alkaline Phosphatase 106 Aspartate Amino Transf (AST/SGOT) 27 Alanine Aminotransferase (ALT/SGPT) 16 Total Bilirubin 0.3 Sodium Level 118 119 Potassium Level 4.5 4.8 Chloride Level 84 86 Carbon Dioxide Level 24.4 24.6 Anion Gap 10 8 Estimat Glomerular Filtration Rate 133 163 B-Type Natriuretic Peptide 47 Date/Time Source Procedure Growth Status 06/28/17 17:05 Blood Peripheral Aerobic Blood Culture Pending Received 06/28/17 17:05 Blood Peripheral Anaerobic Blood Culture Pending Received 06/28/17 18:40 Nasal Washing Influenza Types A,B Antigen (JABIER) - Final NEGATIVE FOR FLU A AND B ANTIGEN.... Complete Result Diagram: 06/28/17 1620 06/28/175 Caprini VTE Risk Assessment Caprini VTE Risk Assessment: Mod/High Risk (score >= 2) Caprini Risk Assessment Model Point Value = 1 Point Value = 2 Point Value = 3 Point Value = 5 Age 41-60 Minor surgery BMI > 25 kg/m2 Swollen legs Varicose veins or History of unexplained or recurrent spontaneous Oral contraceptives or hormone replacement Sepsis (< 1 month) Serious lung disease, including pneumonia (< 1 month) Abnormal pulmonary function Acute myocardial infarction Congestive heart failure (< 1 month) History of inflammatory bowel disease Medical patient at bed rest Age 61-74 Arthroscopic surgery Major open surgery (> 45 min) Laparoscopic surgery (> 45 min) Malignancy Confined to bed (> 72 hours) Immobilizing plaster cast Central venous access Age >= 75 History of VTE Family history of VTE Factor V Leiden Prothrombin [id number] Lupus anticoagulant Anticardiolipin antibodies Elevated serum homocysteine Heparin-induced thrombocytopenia Other congenital or acquired thrombophilia Stroke (< 1 month) Elective arthroplasty Hip, pelvis, or leg fracture Acute spinal cord injury (< 1 month) Prophylaxis Regimen Total Risk Factor Score Risk Level Prophylaxis Regimen 0-1 Low Early ambulation 2 Moderate Order ONE of the following: *Sequential Compression Device (SCD) *Heparin 5000 units SQ BID 3-4 Higher Order ONE of the following medications: *Heparin 5000 units SQ TID *Enoxaparin/Lovenox 40 mg SQ daily (WT < 150 kg, CrCl > 30 mL/min) *Enoxaparin/Lovenox 30 mg SQ daily (WT < 150 kg, CrCl > 10-29 mL/min) *Enoxaparin/Lovenox 30 mg SQ BID (WT < 150 kg, CrCl > 30 mL/min) AND/OR *Sequential Compression Device (SCD) 5 or more Highest Order ONE of the following medications: *Heparin 5000 units SQ TID (Preferred with Epidurals) *Enoxaparin/Lovenox 40 mg SQ daily (WT < 150 kg, CrCl > 30 mL/min) *Enoxaparin/Lovenox 30 mg SQ daily (WT < 150 kg, CrCl > 10-29 mL/min) *Enoxaparin/Lovenox 30 mg SQ BID (WT < 150 kg, CrCl > 30 mL/min) AND *Sequential Compression Device (SCD) Assessment and Plan Problem List: (1) COPD exacerbation ICD Code: J44.1 - Chronic obstructive pulmonary disease with (acute) exacerbation Status: Acute Plan: Unfortunately this patient continues to smoke. Continue IV steroids. Breathing treatments. Symbicort. Supplemental oxygen. Antibiotics Consult pulmonology for assistance. Will obtain chest CT. Concern for malignancy given hyponatremia in a lifelong smoker (2) Right arm cellulitis ICD Code: L03.113 - Cellulitis of right upper limb Status: Acute Plan: Resolving quickly. Continue Levaquin (3) Hyponatremia ICD Code: E87.1 - Hypo-osmolality and hyponatremia Status: Acute Plan: Probably hypovolemic hyponatremia. Obtain serum and urine osmolality, sodium. Continue normal saline Follow-up BMP (4) Tobacco abuse ICD Code: Z72.0 - Tobacco abuse Status: Chronic Plan: Patient strongly counseled to quit. He does not appear to be motivated to quit at this time. (5) DM type 2 (diabetes mellitus, type 2) ICD Code: E11.9 - Type 2 diabetes mellitus without complications Status: Chronic Plan: Sliding scale insulin with Accu-Cheks. Physician Certification 2 Midnight Certification Type: Admission for Inpatient Services Order for Inpatient Services The services are ordered in accordance with Medicare regulations or non- Medicare payer requirements, as applicable. In the case of services not specified as inpatient-only, they are appropriately provided as inpatient services in accordance with the 2-midnight benchmark. Estimated LOS (days): 3 days is the estimated time the patient will need to remain in the hospital, assuming treatment plan goals are met and no additional complications. Post-Hospital Plan: Not yet determined Cristiane Ascencio MD Jun 29, 2017 10:55
[2017-06-29] MEDS ORDERED: ALBUTEROL SULFATE 90 MCG/ACT HFA 8 GM INHALER INH PRN (11:00)
[2017-06-29] MEDS: INSULIN ASPART SUPPLEMENTAL SCALE SQ SCH ×3 (14:00→22:37)
[2017-06-29] MEDS: methylPREDNISolone SOD SUCC 40 MG/1 ML VIAL IV PUSH SCH ×2 (14:01→22:36)
[2017-06-29 17:07] LABS: BICARBONATE 22.7 MEQ/L (21.0-32.0); CALCIUM 8.5 MG/DL (8.5-10.1); CREATININE 1.04 MG/DL (0.60-1.30)
[2017-06-29] MEDS: LEVOFLOXACIN 500 MG PREMIX INJ 100 ML IV SCH (17:53)
[2017-06-29] MEDS: WARFARIN SOD 4 MG TAB PO SCH (17:54)
--- NOTE | 2017-06-29 18:32 | MB ---
cc: Justin Weber MD, Arjun D MD DATE: 06/29/2017 REQUESTING PHYSICIAN: Dr. Ascencio REASON FOR CONSULTATION: COPD exacerbation. HISTORY OF PRESENT ILLNESS: Mr. Salcedo is a pleasant 66-year-old male with history of nicotine use, continues to smoke a pack of cigarettes a day. He also has history of coronary artery disease, status post CABG, PAD and left BKA. The patient came to the hospital with worsening of his shortness of breath going on for a few days. He has wheezing and congestion in his chest. Did not have any fever or chills. No night sweats, no chest pain. He does not ambulate. He has a power scooter and uses a walker. He does not have prosthesis. With these symptoms, he came to the hospital. He had a workup done. His WBC count is 7.0, hemoglobin 11.9, hematocrit 36.2, platelet count 220. Sodium 119, potassium 4.8, chloride 86, CO2 of 25, BUN 8, creatinine 0.51, calcium 8.2. Chest x-ray shows COPD changes. PAST MEDICAL HISTORY: Significant for history of coronary artery disease status post CABG, left BKA, hypertension, PAD, skin cancer, history of CVA. MEDICATIONS: He is currently taking Coumadin 4 mg a day, albuterol inhaler, Aldactone 25 mg a day, [place] for pain, Solu-Medrol 40 mg q. 8 hours, Lipitor 40 mg a day, albuterol and Atrovent nebulizer treatment, Levaquin IV. ALLERGIES: ALLERGIC TO SULFACHLOR. SOCIAL HISTORY: He is a , lives alone, has long history of smoking. He continues to smoke 1 pack of cigarettes , drinks socially. He used to work before in the [employer] and [employer]. FAMILY HISTORY: He has 1 daughter and has grandchildren. REVIEW OF SYSTEMS: He uses a power scooter, does not walk much. Continues to smoke. No DVT or pulmonary embolism. No malignancy. He does have chronic hyponatremia. PHYSICAL EXAMINATION: GENERAL: Elderly male, mild shortness of breath. VITAL SIGNS: Blood pressure 129/62, heart rate 77, respirations 18, temperature 97.8. HEENT: Pupils are equal, round, reactive to light. Oral mucosa and nasal mucosa normal. NECK: Supple. JVP not raised. CHEST: He has expiratory rhonchi. CARDIOVASCULAR: S1, S2 normal. ABDOMEN: Soft, nondistended. Bowel sounds are present. EXTREMITIES: Left BKA. IMPRESSION: 1. Chronic obstructive pulmonary disease with exacerbation. 2. Bronchitis. 3. Chronic hyponatremia. 4. Nicotine use. 5. Coronary artery disease, status post coronary artery bypass graft. 6. Peripheral arterial disease status post left below-knee amputation. PLAN: I advised him strongly to quit smoking. I will check CT scan of the chest to make sure he does not have a lung condition because of his long history of smoking and also chronic hyponatremia. We will continue antibiotic, IV Solu-Medrol, aerosol treatments, supplement his oxygen. He also has sleep apnea, but has not been using his CPAP machine. Further treatment will depend on the course in the hospital. Thank you, Dr. Ascencio, for this consultation. MD MURPHY Baez//dhruv , 01:29 PM , 05:41 PM VENKAT
[2017-06-29] MEDS ORDERED: IOHEXOL 350 MG/ML 10 ML VIAL (for RAD DIAG) IVCONTRAST ONE (22:30)
--- NOTE | 2017-06-29 22:33 | RADRPT ---
EXAM DATE/TIME: 06/29/2017 22:23 [place] COMPARISON: No previous studies available for comparison. INDICATIONS : Dyspnea; worsening COPD. IV CONTRAST: 70 cc Omnipaque 350 (iohexol) IV RADIATION DOSE: 9.59 CTDIvol (mGy) MEDICAL HISTORY : Cerebrovascular disease. Seizures. Congestive heart failure.Hypertension, Diabetes SURGICAL HISTORY : CABG Abdominal aortic aneurysm repair.Cholecystectomy. ENCOUNTER: Initial ACUITY: 1 day PAIN SCALE: 2/10 LOCATION: chest TECHNIQUE: Volumetric scanning of the chest was performed. Using automated exposure control and adjustment of t he mA and/or kV according to patient size, radiation dose was kept as low as reasonably achievable to obtain optimal diagnostic quality images. DICOM format image data is available electronically for review and comparison. Follow-up recommendations for detected pulmonary nodules are based at a minimum on nodule size and pa tient risk factors according to Fleischner Society Guidelines. FINDINGS: Moderate emphysematous changes in both lungs. No axillary mediastinal adenopathy No mediastinal adenopathy. Previous bypass is noted. Review of bone windows reveals only degenerative changes. Upper abdominal contents unremarkable CONCLUSION: Emphysematous changes in both lungs, no mass infiltrate or failure. Semaj Holden MD FACR on June 29, 2017 at 22:29 Board Certified Radiologist. This report was verified electronically.
[2017-06-29] MEDS: ATORVASTATIN 40 MG TAB PO SCH (22:37)
[2017-06-30] VITALS (21 sets, daily range): BP systolic 150–163; BP diastolic 69–94; PULSE 69–98; RESP 18–20; TEMP 97.5–98.5; O2SAT 92–99
[2017-06-30] MEDS: SODIUM CHLOR 0.9% 1000 ML INJ 1,000 ML IV SCH ×3 (01:00→23:13)
[2017-06-30] MEDS: ACETAMINOPHEN/HYDROcodone 325 MG/5 MG TAB PO PRN ×5 (03:51→23:11)
[2017-06-30] MEDS: methylPREDNISolone SOD SUCC 40 MG/1 ML VIAL IV PUSH SCH ×3 (05:27→23:10)
[2017-06-30] MEDS: RESP: ALBUTEROL 2.5 MG/IPRATROPIUM 0.5 MG NEB (SCH) NEB ×3 (08:06→20:38)
[2017-06-30] MEDS: SPIRONOLACTONE 25 MG TAB PO SCH (08:25)
[2017-06-30] MEDS: METOPROLOL TARTRATE 50 MG TAB PO SCH ×2 (08:25→23:10)
[2017-06-30] MEDS: GABAPENTIN 400 MG CAP PO SCH ×3 (08:25→17:28)
[2017-06-30] MEDS: SODIUM CHLORIDE 0.9% FLUSH 10 ML FLUSH IV FLUSH SCH ×2 (08:25→23:12)
[2017-06-30] MEDS: INSULIN ASPART SUPPLEMENTAL SCALE SQ SCH ×4 (08:26→22:42)
--- NOTE | 2017-06-30 14:53 | HHI.PR ---
Subjective Remarks Patient reports he is feeling better today. Shortness of breath has improved. Objective Vitals Vital Signs Date Time Temp Pulse Resp B/P (MAP) Pulse Ox O2 Delivery O2 Flow Rate FiO2 06/30/17 08:06 95 Nasal Cannula 3.00 06/30/17 07:28 79 06/30/17 07:28 98.5 79 20 150/92 (111) 95 06/30/17 03:00 97.9 89 20 160/94 (116) 92 06/29/17 23:00 98.2 110 18 146/78 (100) 100 06/29/17 20:00 97.8 108 16 119/60 (79) 97 06/29/17 16:00 97.9 97 22 122/78 (93) 94 I/O 06/29/17 06/29/17 06/29/17 06/30/17 06/30/17 06/30/17 07:00 15:00 23:00 07:00 15:00 23:00 Intake Total 1720 ml 1501 ml Output Total 840 ml 1625 ml Balance 880 ml -124 ml Intake Oral 720 ml 960 ml IV Total 1000 ml 541 ml Output Urine Total 840 ml 1625 ml # Bowel Movements 0 Result Diagram: 06/28/17 1620 06/29/17 1627 Imaging Last Impressions Elbow X-Ray 06/28/17 161 Signed Impressions: Service Date/Time: Wednesday, June 28, 2017 16:22 - CONCLUSION: Mild osteoarthritis. No acute abnormality. Ricki Metzger Jr., MD Chest X-Ray 06/28/171614 Signed Impressions: Service Date/Time: Wednesday, June 28, 2017 16:22 - CONCLUSION: Hyperinflation suggesting COPD. No acute infiltrate or effusion. Ricki Metzger Jr., MD Objective Remarks GENERAL: Patient appears older than stated age. CARDIOVASCULAR: Normal rate and irregular rhythm without murmurs, gallops, or rubs. RESPIRATORY: Air movement is fair. Diffuse wheezing throughout bilaterally. GASTROINTESTINAL: Abdomen soft, non-tender, non-distended. Normal active bowel sounds MUSCULOSKELETAL: Right elbow cellulitis resolving NEURO: Alert & Oriented x4 to person, place, time, situation. Moves all ext x4 PSYCH: Appropriate mood and affect. A/P Problem List: (1) COPD exacerbation ICD Code: J44.1 - Chronic obstructive pulmonary disease with (acute) exacerbation Status: Acute Plan: Unfortunately this patient continues to smoke. Continue IV steroids. Breathing treatments. Symbicort. Supplemental oxygen. Antibiotics Appreciate pulmonology's assistance. Chest CT reveals emphysema. (2) Hyponatremia ICD Code: E87.1 - Hypo-osmolality and hyponatremia Status: Acute Plan: Hypovolemic. Much improved. Continue normal saline. Follow BMP in a.m. (3) Right arm cellulitis ICD Code: L03.113 - Cellulitis of right upper limb Status: Acute Plan: Resolving quickly. Continue Levaquin Anticipate discharge home with a couple days of oral antibiotics. Plan to downgrade. (4) Paroxysmal atrial fibrillation ICD Code: I48.0 - Paroxysmal atrial fibrillation Status: Chronic Plan: Continue rate control medications. Continue Coumadin. Follow INR (5) Tobacco abuse ICD Code: Z72.0 - Tobacco abuse Status: Chronic Plan: Patient strongly counseled to quit. He does not appear to be motivated to quit at this time. (6) DM type 2 (diabetes mellitus, type 2) ICD Code: E11.9 - Type 2 diabetes mellitus without complications Status: Chronic Plan: Sliding scale insulin with Accu-Cheks. Cristiane Ascencio MD Jun 30, 2017 14:53
[2017-06-30] MEDS: WARFARIN SOD 4 MG TAB PO SCH (17:28)
[2017-06-30] MEDS: LEVOFLOXACIN 500 MG PREMIX INJ 100 ML IV SCH (17:29)
[2017-06-30] MEDS: ATORVASTATIN 40 MG TAB PO SCH (23:10)
[2017-07-01] VITALS (17 sets, daily range): BP systolic 142–156; BP diastolic 72–80; PULSE 70–88; RESP 16–19; TEMP 97.6–98.2; O2SAT 94–98
[2017-07-01] MEDS: ACETAMINOPHEN/HYDROcodone 325 MG/5 MG TAB PO PRN (04:04)
[2017-07-01] MEDS: methylPREDNISolone SOD SUCC 40 MG/1 ML VIAL IV PUSH SCH (05:44)
[2017-07-01] MEDS: SODIUM CHLOR 0.9% 1000 ML INJ 1,000 ML IV SCH (05:45)
[2017-07-01] MEDS: METOPROLOL TARTRATE 50 MG TAB PO SCH (08:44)
[2017-07-01] MEDS: SPIRONOLACTONE 25 MG TAB PO SCH (08:44)
[2017-07-01] MEDS: INSULIN ASPART SUPPLEMENTAL SCALE SQ SCH ×2 (08:44→12:28)
[2017-07-01] MEDS: SODIUM CHLORIDE 0.9% FLUSH 10 ML FLUSH IV FLUSH SCH (08:44)
[2017-07-01] MEDS: GABAPENTIN 400 MG CAP PO SCH ×2 (08:44→12:28)
[2017-07-01] MEDS: ACETAMINOPHEN/HYDROcodone 325 MG/10 MG TAB PO PRN ×2 (08:44→12:31)
[2017-07-01] MEDS: RESP: ALBUTEROL 2.5 MG/IPRATROPIUM 0.5 MG NEB (SCH) NEB (10:22)
[2017-07-01] MEDS ORDERED: LEVOFLOXACIN 750 MG TAB PO SCH (11:00)
[2017-07-01] MEDS ORDERED: PRED10PA2 PO (12:28)
[2017-07-01] MEDS ORDERED: LEVA750T9 PO (12:28)
--- NOTE | 2017-07-01 12:30 | HHI.FF ---
Face to Face Verification Diagnosis: (1) COPD exacerbation (2) Paroxysmal atrial fibrillation (3) DM type 2 (diabetes mellitus, type 2) (4) Right arm cellulitis Home Health Nursing Order: Medical education Signs/symptoms of disease process Oxygen administration education Medication education-adverse effect Nursing assessment with vital signs I have seen patient Guanaco Salcedo on 07/01/17. My clinical findings support the need for the requested home health care services because: Ltd mobility - disease progression Patient has SOB Deconditioned w/ increased weakness Need for psychosocial assistance I certify that my clinical findings support that this patient is homebound because: Hx COPD- exertion dyspnea/weakness Cristiane Ascencio MD Jul 01, 2017 12:30
[2017-07-01] MEDS ORDERED: HYDR-3516 PO (12:32)
--- NOTE | 2017-07-01 12:38 | HHI.DS ---
Discharge Summary Admission Date Jun 28, 2017 at 18:03 Discharge Date: Jul 01, 2017 Admitting Diagnosis COPD exacerbation/severe hyponatremia/right elbow cellulitis (1) COPD exacerbation ICD Code: J44.1 - Chronic obstructive pulmonary disease with (acute) exacerbation Status: Acute (2) Hyponatremia ICD Code: E87.1 - Hypo-osmolality and hyponatremia Status: Acute (3) Right arm cellulitis ICD Code: L03.113 - Cellulitis of right upper limb Status: Acute (4) Paroxysmal atrial fibrillation ICD Code: I48.0 - Paroxysmal atrial fibrillation Status: Chronic (5) Tobacco abuse ICD Code: Z72.0 - Tobacco abuse Status: Chronic (6) DM type 2 (diabetes mellitus, type 2) ICD Code: E11.9 - Type 2 diabetes mellitus without complications Status: Chronic Procedures None Brief History - From Admission HPI form the admitting physician: 66-year-old male with a medical history significant for COPD, CAD, A. fib, hypertension, diabetes, PAD status post left BKA who presented to the hospital with complaint of worsening shortness of breath over the past couple of weeks. Patient also reports right elbow swelling and redness that has been ongoing for about 1-2 days. He was seen at his primary care's office and was sent to the hospital. Patient denies any fevers or chills. He does have a dry cough. He continues to smoke heavily up to 1 pack per day. He also drinks 2+ beers daily. On my evaluation, the patient reports that he is feeling better since arriving in the hospital. He denies any chest pain. CBC/BMP: 06/28/17 1620 06/29/17 1627 Significant Findings Laboratory Tests Test 06/28/17 16:20 06/28/17 22:35 06/29/17 16:27 Red Blood Count 4.04 MIL/MM3 (4.50-5.90) Hemoglobin 11.9 GM/DL (13.0-17.0) Hematocrit 36.2 % (39.0-51.0) Neutrophils (%) (Auto) 76.7 % (16.0-70.0) Monocytes (%) (Auto) 8.8 % (0.0-8.0) Lymphocytes # (Auto) 0.7 TH/MM3 (1.0-4.8) Prothrombin Time 15.4 SEC (9.8-11.6) Random Glucose 136 MG/DL (74-106) 157 MG/DL (74-106) 151 MG/DL (74-106) Sodium Level 118 MEQ/L (136-145) 119 MEQ/L (136-145) 125 MEQ/L (136-145) Chloride Level 84 MEQ/L (98-107) 86 MEQ/L (98-107) 92 MEQ/L (98-107) Creatinine 0.51 MG/DL (0.60-1.30) Calcium Level 8.2 MG/DL (8.5-10.1) Estimat Glomerular Filtration Rate 72 ML/MIN (>89) Serum Osmolality 264 MOSM/KG (275-295) Imaging Last Impressions Chest CT 06/29/17 0000 Signed Impressions: Service Date/Time: Thursday, June 29, 2017 22:23 - CONCLUSION: Emphysematous changes in both lungs, no mass infiltrate or failure. Semaj Holden MD FACR Elbow X-Ray 06/28/17 161 Signed Impressions: Service Date/Time: Wednesday, June 28, 2017 16:22 - CONCLUSION: Mild osteoarthritis. No acute abnormality. Ricki Metzger Jr., MD Chest X-Ray 06/28/[id number] Signed Impressions: Service Date/Time: Wednesday, June 28, 2017 16:22 - CONCLUSION: Hyperinflation suggesting COPD. No acute infiltrate or effusion. Ricki Metzger Jr., MD PE at Discharge GENERAL: Patient appears older than stated age. CARDIOVASCULAR: Normal rate and irregular rhythm without murmurs, gallops, or rubs. RESPIRATORY: Air movement is fair. Diffuse wheezing throughout bilaterally. GASTROINTESTINAL: Abdomen soft, non-tender, non-distended. Normal active bowel sounds MUSCULOSKELETAL: Right elbow cellulitis resolving NEURO: Alert & Oriented x4 to person, place, time, situation. Moves all ext x4 PSYCH: Appropriate mood and affect. Pt update on day of discharge Patient reports he is feeling better. Breathing more comfortable. Eager to go home. Hospital Course 66 Y/O male admitted and treated for the following: (1) COPD exacerbation ICD Code: J44.1 - Chronic obstructive pulmonary disease with (acute) exacerbation Status: Acute Plan: Unfortunately this patient continues to smoke. Treated with IV steroids. Breathing treatments. Symbicort. Supplemental oxygen. Antibiotics Appreciate pulmonology's assistance. Chest CT reveals emphysema. Condition improved. (2) Hyponatremia ICD Code: E87.1 - Hypo-osmolality and hyponatremia Status: Acute Plan: Hypovolemic. Much improved with normal saline. (3) Right arm cellulitis ICD Code: L03.113 - Cellulitis of right upper limb Status: Acute Plan: Resolving quickly. Continue Levaquin at home with a couple days of oral antibiotics. (4) Paroxysmal atrial fibrillation ICD Code: I48.0 - Paroxysmal atrial fibrillation Status: Chronic Plan: Continue rate control medications. Continue Coumadin. (5) Tobacco abuse ICD Code: Z72.0 - Tobacco abuse Status: Chronic Plan: Patient strongly counseled to quit. He does not appear to be motivated to quit at this time. (6) DM type 2 (diabetes mellitus, type 2) ICD Code: E11.9 - Type 2 diabetes mellitus without complications Status: Chronic Plan: Sliding scale insulin with Accu-Cheks. Resume home meds on discharge. Pt Condition on Discharge: Good Discharge Disposition: Disch w/ Home Health Serv Discharge Time: > 30 minutes Discharge Instructions DIET: Follow Instructions for: Diabetic Diet Activities you can perform: Regular-No Restrictions Follow up Referrals: PCP Follow-up - 1 Week Pulmonology - 1 Week with Goran Zimmer MD New Medications: Prednisone (48) 10 mg tab Dose Pack (Prednisone (48) 10 mg tab Dose Pack) 10 Mg Dspk 10 MG PO DIRECTED for Inflammation, #1 DSPK 0 Refills Hydrocodone/Acetaminophen (Hydrocodone-Acetamin 5-325 mg) 5 Mg-325 Mg Tablet 1 TAB PO Q4H PRN for PAIN GREATER THAN 5, #10 TAB Levofloxacin (Levaquin) 750 Mg Tablet 750 MG PO DAILY, #5 TAB Continued Medications: Albuterol 18 GM Inh (Ventolin Hfa 18 GM Inh) 90 Mcg/Act Aer 2 PUFF INH Q4-6H PRN for SHORTNESS OF BREATH, #1 INHALER [address] (Aspirin EC) 81 Mg Tabdr 81 MG PO DAILY, #30 TAB 1 Refill Atorvastatin (Atorvastatin) 40 Mg Tab 40 MG PO HS for Cholesterol Management, #30 TAB 2 Refills Budesonide-Formoterol Inh (Symbicort Inh) 160-4.5 Mcg/Act Aero 2 PUFF INH Q12HR, #1 INHALER 1 Refill Furosemide (Lasix) 20 Mg Tab 20 MG PO DAILY, #30 TAB 1 Refill Gabapentin (Gabapentin) 800 Mg Tab 800 MG PO TID, #90 TAB 1 Refill Ipratropium-Albuterol Neb (Duoneb) 0.5-2.5 Mg/3 Ml Neb 1 AMPULE NEB Q6HR PRN for SHORTNESS OF BREATH, #180 ML 1 Refill Metformin (Glucophage) 500 Mg Tab 500 MG PO BIDPC for Blood Sugar Management, #60 TAB 3 Refills With meals Metoprolol Tartrate (Metoprolol Tartrate) 50 Mg Tab 50 MG PO BID, #60 TAB 2 Refills Multiple Vitamins W/ Minerals (Thera M Plus) 1 Tab 1 TAB PO DAILY for Nutritional Supplement, #30 TAB 1 Refill Pantoprazole (Protonix) 40 Mg Tab 40 MG PO DAILY for Reflux, #90 TAB 3 Refills Spironolactone (Spironolactone) 25 Mg Tab 25 MG PO DAILY, #30 TAB 2 Refills Thiamine (Vitamin B-1) 100 Mg Tab 100 MG PO DAILY for Nutritional Supplement, TAB 0 Refills Warfarin (Coumadin) 4 Mg Tab 4 MG PO DAILY@16, #30 TAB Cristiane Ascencio MD Jul 01, 2017 12:38
--- NOTE | 2017-07-01 12:39 | HHI.DCPOC ---
Discharge Care Plan Diagnosis: (1) COPD exacerbation (2) Right arm cellulitis (3) Hyponatremia Goals to Promote Your Health * To prevent worsening of your condition and complications * To maintain your health at the optimal level Directions to Meet Your Goals Take your medications as prescribed Follow your dietary instruction Follow activity as directed Keep your appointments as scheduled Take your immunizations and boosters as scheduled If your symptoms worsen call your PCP, if no PCP go to Urgent Care Center or Emergency Room Smoking is Dangerous to Your Health. Avoid second hand smoke Call the 24-hour hour crisis hotline for domestic abuse at Cristiane Ascencio MD Jul 01, 2017 12:39
[2017-07-01] MEDS ORDERED: predniSONE 20 MG TAB PO SCH (13:00)
== END 2017-07-01 13:24 | disposition home health service (06) | DRG 191 ==
LOC: PHED 14:48 → PHEDA 18:03 → PHEDH 23:13 → HCIS 06-29 03:31
PROVIDERS: ADMIT Family Medicine; ATTEND Family Medicine
DX: J44.1 Chronic obstructive pulmonary disease with (acute) exacerbation (principal); E87.1 Hypo-osmolality and hyponatremia; Z99.81 Dependence on supplemental oxygen; I11.0 Hypertensive heart disease with heart failure; I50.9 Heart failure, unspecified; L03.113 Cellulitis of right upper limb; E11.9 Type 2 diabetes mellitus without complications; I48.0 Paroxysmal atrial fibrillation; E86.1 Hypovolemia; Z79.84 Long term (current) use of oral hypoglycemic drugs; F17.210 Nicotine dependence, cigarettes, uncomplicated; Z99.3 Dependence on wheelchair; I25.10 Atherosclerotic heart disease of native coronary artery without angina pectoris; Z95.1 Presence of aortocoronary bypass graft; Z79.01 Long term (current) use of anticoagulants; Z79.82 Long term (current) use of aspirin; G47.30 Sleep apnea, unspecified; Z89.512 Acquired absence of left leg below knee; Z85.828 Personal history of other malignant neoplasm of skin
CPT/HCPCS: 71045; 71260; 73070; 80048; 80053; 82948; 83880; 83930; 85025; 85610; 87040; 87804; 94640; 94664; 96374; J1815; J1956; J2920; J2930; J7030; J7512; Q9967

== ENCOUNTER 2017-07-23 18:56 | Inpatient (IN) | payer MEDICARE, OTHER ==
[~2017-07-23] VITALS: Ht 172.7 cm; Wt 78.2 kg
[~2017-07-23 18:56] MED LIST changes: -HYDR-3583 PO; -PRED20 PO; -SODI1TAB PO
[2017-07-23 18:58] VITALS: BP 104/56; PULSE 105; RESP 22; TEMP 98.4; O2SAT 100
[2017-07-23 19:34] VITALS: BP 123/60; PULSE 98; RESP 16; O2SAT 100
--- NOTE | 2017-07-23 19:44 | RADRPT ---
EXAM DATE/TIME: 07/23/2017 19:22 [facility] COMPARISON: CT THORAX W CONTRAST, June 29, 2017, 22:23. CHEST PA & LAT, December 21, 2016, 21:04. INDICATIONS : Chest pain and cough. MEDICAL HISTORY : Cerebrovascular disease. Seizures. Congestive heart failure.Hypertension, Diabetes SURGICAL HISTORY : CABG Abdominal aortic aneurysm repair.Cholecystectomy. ENCOUNTER: Initial ACUITY: 1 day PAIN SCORE: 4/10 LOCATION: Bilateral chest FINDINGS: PA and lateral views of the chest demonstrates hyperinflation which can be seen with CO PD. No infiltrates are seen. Heart is normal in size. Status post CABG The mediastinal contours are unremarkable. Osseous structures are intact. CONCLUSION: Hyperinflation without evidence for an infiltrate. Azael Mckeon MD on July 23, 2017 at 19:37 Board Certified Radiologist. This report was verified electronically.
[2017-07-23] MEDS ORDERED: methylPREDNISolone SOD SUCC 125 MG/2 ML VIAL IV PUSH ONE (19:45)
[2017-07-23 19:54] LABS: AUTOMATED NEUTROPHIL # 8.5 TH/MM3 (1.8-7.7); BASOPHIL % 0.3 % (0.0-2.0); EOSINOPHIL % 0.5 % (0.0-4.0); HEMATOCRIT 35.1 % (39.0-51.0); LYMPH % 10.4 % (9.0-44.0); MEAN CELL VOLUME 88.3 FL (80.0-100.0); MEAN CORPUSCULAR HEMOGLOBIN 30.2 PG (27.0-34.0); MEAN CORPUSCULAR HGB CONC 34.3 % (32.0-36.0); MEAN PLATELET VOLUME 7.5 FL (7.0-11.0); MONOCYTE # 0.4 TH/MM3 (0-0.9); NEUT % 84.8 % (16.0-70.0); PLATELET COUNT 208 TH/MM3 (150-450); RED BLOOD COUNT 3.98 MIL/MM3 (4.50-5.90); RED CELL DISTRIBUTION WIDTH 17.4 % (11.6-17.2); WHITE BLOOD COUNT 10.1 TH/MM3 (4.0-11.0)
[2017-07-23 20:07] VITALS: O2SAT 100
[2017-07-23 20:07] LABS: INTERNATIONAL NORMALIZED RATIO 1.6 RATIO; PROTHROMBIN TIME - PATIENT 15.8 SEC (9.8-11.6)
[2017-07-23] MEDS: RESP: ALBUTEROL 2.5 MG/IPRATROPIUM 0.5 MG NEB (SCH) INH (20:07)
--- NOTE | 2017-07-23 20:16 | PD ---
HPI Chief Complaint: Respiratory Symptoms Time Seen by Provider: 19:19 Travel History International Travel<30 days: No Contact w/Intl Traveler<30days: No Traveled to known affect area: No History of Present Illness HPI 66-year-old male presents to the ED for evaluation of hyponatremia. Patient states that he had blood work done today and his primary care Joan Gallego PA-C plan to come here to get evaluated for his hyponatremia. Per patient he has chronic shortness of breath secondary to COPD. He continues to smoke. He for the most part is wheelchair bound secondary to a BKA to his left leg and a wound to his right leg. He states that he has been having a little swelling to his legs but this is chronic for him. He follows with the primary care for this. Patient was seen here about a month ago for hyponatremia and shortness of breath as well. He has a history of COPD and states that he does not use any inhalers for the past 2 days. He denies any chest pain but states having shortness of breath with exertion. She feels short of breath right now. He still feels some weakness but denies any history of seizures. Allergy to cefaclor. No pain at this time. PFSH Past Medical History Hx Anticoagulant Therapy: Yes Arthritis: Yes Asthma: No Autoimmune Disease: No Anxiety: Yes Depression: Yes Heart Rhythm Problems: Yes Cancer: Yes (skin cancer LEFT WRIST) Cardiac Catheterization: Yes (CAD) Cardiovascular Problems: Yes High Cholesterol: Yes Chemotherapy: No Chest Pain: Yes Congestive Heart Failure: Yes COPD: Yes Cerebrovascular Accident: Yes Diabetes: Yes Patient Takes Glucophage: Yes Diminished Hearing: No Endocrine: Yes Gastrointestinal Disorders: Yes GERD: No Genitourinary: Yes Headaches: No Hiatal Hernia: No Hypertension: Yes Immune Disorder: No Implanted Vascular Access Dvce: No Kidney Stones: Yes (25+ years ago) Musculoskeletal: Yes Neurologic: Yes Psychiatric: Yes Reproductive: No Respiratory: Yes Immunizations Current: Yes Migraines: No Radiation Therapy: No Renal Failure: No Seizures: Yes (as a child) Sickle Cell Disease: No Sleep Apnea: Yes Thyroid Disease: No Ulcer: No PNEUMOCCOCAL Vaccine (Year): 1 Past Surgical History Abdominal Surgery: Yes (aortic aneurysm repair) AICD: No Arteriovenous Shunt: No Cardiac Surgery: Yes (CABG x4 Mar 2014) Coronary Artery Bypass Graft: Yes Ear Surgery: No Endocrine Surgery: No Eye Surgery: No Genitourinary Surgery: No Gynecologic Surgery: No Insulin Pump: No Joint Replacement: No Neurologic Surgery: No Oral Surgery: No Pacemaker: No Thoracic Surgery: Yes Other Surgery: Yes (SKIN CANCER REMOVED) Social History Alcohol Use: Yes (daily) Tobacco Use: Yes (A LITTLE MORE THAN ONE PPD) Substance Use: No Allergies-Medications (Allergen,Severity, Reaction): Coded Allergies: cefaclor (Verified Allergy, Intermediate, rash, 06/28/17) Reported Meds & Prescriptions Reported Meds & Active Scripts Active Prednisone (48) 10 mg tab Dose Pack (Prednisone) 10 Mg Dspk 10 Mg PO DIRECTED Metoprolol Tartrate 50 Mg Tab 50 Mg PO BID Coumadin (Warfarin) 4 Mg Tab 4 Mg PO DAILY@16 Oxygen tank (Oxygen) 1 Ea Tank Liter HANNAH.CANULA CONTINUOUS Oxygen Concentrator Portable Gaseous 2 L/min via Nasal Cannula Continuous For 99 months Spironolactone 25 Mg Tab 25 Mg PO DAILY Atorvastatin (Atorvastatin Calcium) 40 Mg Tab 40 Mg PO HS Protonix (Pantoprazole Sodium) 40 Mg Tab 40 Mg PO DAILY Duoneb (Ipratropium-Albuterol Neb) 0.5-2.5 Mg/3 Ml Neb 1 Ampule NEB Q6HR PRN Glucophage (Metformin HCl) 500 Mg Tab 500 Mg PO BIDPC With meals Ventolin Hfa 18 GM Inh (Albuterol Sulfate) 90 Mcg/Act Aer 2 Puff INH Q4-6H PRN Gabapentin 800 Mg Tab 800 Mg PO TID Symbicort Inh (Budesonide/Formoterol Fumarate) 160-4.5 Mcg/Act Aero 2 Puff INH Q12HR Aspirin EC (Aspirin) 81 Mg Tabdr 81 Mg PO DAILY Thera M Plus (Multivitamins/Minerals Therapeutic) 1 Tab 1 Tab PO DAILY Bedside Commode (Device) 1 Mis Mis 1 Ea .ROUTE DIRECTED Walker Rolling/GetGo (Device) 1 Mis Mis 1 Ea .ROUTE DIRECTED Reported Vitamin B-1 (Thiamine HCl) 100 Mg Tab 100 Mg PO DAILY Review of Systems Except as stated in HPI: all other systems reviewed are Neg Physical Exam Narrative GENERAL: SKIN: Warm and dry. HEAD: Atraumatic. Normocephalic. EYES: Pupils equal and round. No scleral icterus. No injection or drainage. ENT: No nasal bleeding or discharge. Mucous membranes pink and moist. Tongue is midline. No uvula deviation. NECK: Trachea midline. No JVD. CARDIOVASCULAR: Regular rate and rhythm. No murmus, s3, s4. RESPIRATORY: No accessory muscle use. Clear to auscultation. Breath sounds equal bilaterally. GASTROINTESTINAL: Abdomen soft, non-tender, nondistended. Hepatic and splenic margins not palpable. MUSCULOSKELETAL: Extremities without clubbing, cyanosis, or edema. No obvious deformities. BKA on left leg. 2+ pititing edema on both lower legs. Chronic wound to the right leg. NEUROLOGICAL: Awake and alert. No obvious cranial nerve deficits. Motor grossly within normal limits. Five out of 5 muscle strength in the arms and legs. Normal speech. PSYCHIATRIC: Appropriate mood and affect; insight and judgment normal. Data Data Last Documented VS Vital Signs Date Time Temp Pulse Resp B/P (MAP) Pulse Ox O2 Delivery O2 Flow Rate FiO2 07/23/17 20:07 100 Nasal Cannula 2.00 07/23/17 19:34 98 16 123/60 (81) 07/23/17 18:58 98.4 Orders Orders Electrocardiogram (07/23/17 19:01) Basic Metabolic Panel (Bmp) (07/23/17 19:01) Ckmb (Isoenzyme) Profile (07/23/17 19:01) Complete Blood Count With Diff (07/23/17 19:) Magnesium (Mg) (07/23/17 19:) Prothrombin Time / Inr (Pt) (07/23/17 19:01) Act Partial Throm Time (Ptt) (07/23/17 19:01) Troponin I (07/23/17 19:01) Chest, Pa & Lat (07/23/17 19:01) B-Type Natriuretic Peptide (07/23/17 19:33) Methylprednisolone So Succ Inj (Solumedr (07/23/17 19:45) Albuterol-Ipratropium Neb (Duoneb Neb) (07/23/17 19:45) Osmolality,Serum (07/23/17 20:23) Admit Order (Ed Use Only) (07/23/17 21:34) Labs Laboratory Tests Test 07/23/17 19:18 07/23/17 20:25 White Blood Count 10.1 TH/MM3 Red Blood Count 3.98 MIL/MM3 Hemoglobin 12.0 GM/DL Hematocrit 35.1 % Mean Corpuscular Volume 88.3 FL Mean Corpuscular Hemoglobin 30.2 PG Mean Corpuscular Hemoglobin Concent 34.3 % Red Cell Distribution Width 17.4 % Platelet Count 208 TH/MM3 Mean Platelet Volume 7.5 FL Neutrophils (%) (Auto) 84.8 % Lymphocytes (%) (Auto) 10.4 % Monocytes (%) (Auto) 4.0 % Eosinophils (%) (Auto) 0.5 % Basophils (%) (Auto) 0.3 % Neutrophils # (Auto) 8.5 TH/MM3 Lymphocytes # (Auto) 1.0 TH/MM3 Monocytes # (Auto) 0.4 TH/MM3 Eosinophils # (Auto) 0.0 TH/MM3 Basophils # (Auto) 0.0 TH/MM3 CBC Comment DIFF FINAL Differential Comment Prothrombin Time 15.8 SEC Prothromb Time International Ratio 1.6 RATIO Activated Partial Thromboplast Time 27.8 SEC Blood Urea Nitrogen 8 MG/DL Creatinine 0.74 MG/DL Random Glucose 177 MG/DL Calcium Level 8.9 MG/DL Magnesium Level 1.5 MG/DL Sodium Level 118 MEQ/L Potassium Level 4.8 MEQ/L Chloride Level 86 MEQ/L Carbon Dioxide Level 22.9 MEQ/L Anion Gap 9 MEQ/L Estimat Glomerular Filtration Rate 106 ML/MIN Total Creatine Kinase 79 U/L Troponin I LESS THAN 0.02 NG/ML B-Type Natriuretic Peptide 60 PG/ML MDM Medical Decision Making Medical Screen Exam Complete: Yes Emergency Medical Condition: Yes Medical Record Reviewed: Yes Interpretation(s) CBC & BMP Diagram 07/23/17 19:18 Calcium Level 8.9, Magnesium Level 1.5 Last Impressions Chest X-Ray 07/23/17 1901 Signed Impressions: Service Date/Time: Sunday, July 23, 2017 19:22 - CONCLUSION: Hyperinflation without evidence for an infiltrate. Azael Mckeon MD troponin negative BNP WNL CKMB negative Differential Diagnosis COPD versus COPD exacerbation versus CHF exacerbation versus hyponatremia versus fluid overload Narrative Course 66-year-old male presents to the ED for evaluation of shortness of breath and hyponatremia. Patient was properly examined and was found to have signs and symptoms consistent appears to be COPD exacerbation with hyponatremia. Possible CHF as well as patient does appear to have edema to both lower legs. History of CHF. Labs and imaging ordered. I did review the patient's medical record he had blood work done today that show sodium of 118. Labs and imaging here shows sodium of 118. Otherwise unremarkable. Patient still having wheezing on exam. Case discussed with my attending Dr Lara who recommends admission for COPD exacerbation and severe hyponatremia. Discussed case with Dr Condon who agrees to admission. Diagnosis Primary Impression: COPD exacerbation Additional Impression: Hyponatremia Admitting Information Admitting Physician Requests: Admit Jorge Breen Jul 23, 2017 20:16
[2017-07-23 20:22] LABS: BICARBONATE 22.9 MEQ/L (21.0-32.0); BLOOD UREA NITROGEN 8 MG/DL (7-18); CALCIUM 8.9 MG/DL (8.5-10.1); CHLORIDE 86 MEQ/L (98-107); CREATININE 0.74 MG/DL (0.60-1.30); GLOMERULAR FILTRATION RATE 106 ML/MIN (>89); GLUCOSE,RANDOM 177 MG/DL (74-106); MAGNESIUM 1.5 MG/DL (1.5-2.5)
[2017-07-23 20:24] LABS: SODIUM (NA) 118 MEQ/L (136-145)
[2017-07-23 20:31] LABS: TROPONIN I LESS THAN 0.02 NG/ML (0.02-0.05)
[2017-07-23 23:03] VITALS: BP 143/76; PULSE 93; RESP 20; O2SAT 99
[2017-07-24] MEDS ORDERED: BISACODYL 10 MG SUPP RECTAL PRN (00:30)
[2017-07-24] MEDS ORDERED: MAGNESIUM HYDROXIDE SUSP 30 ML CUP PO PRN (00:30)
[2017-07-24] MEDS ORDERED: NALOXONE HCL 0.4 MG/ML AMP IV PUSH PRN (00:30)
[2017-07-24] MEDS ORDERED: LACTULOSE SYRUP 20 GM/30 ML CUP PO PRN (00:30)
[2017-07-24] MEDS ORDERED: ACETAMINOPHEN 325 MG TAB PO PRN (00:30)
[2017-07-24] MEDS ORDERED: SENNOSIDES 8.6 MG TAB PO PRN (00:30)
[2017-07-24] MEDS ORDERED: SODIUM CHLORIDE 0.9% FLUSH 10 ML FLUSH IV FLUSH PRN (00:30)
[2017-07-24] MEDS ORDERED: ONDANSETRON HCL 4 MG/2 ML VIAL IVP PRN (00:30)
[2017-07-24] MEDS ORDERED: DEXTROSE 50% IN WATER 50 ML VIAL(D50) IV PUSH PRN (00:45)
[2017-07-24] MEDS ORDERED: RESP: ALBUTEROL 2.5 MG/IPRATROPIUM 0.5 MG NEB (PRN) NEB (00:45)
[2017-07-24] MEDS ORDERED: GLUCAGON 1 MG/ML VIAL OTHER PRN (00:45)
[2017-07-24 01:00] VITALS: BP 158/81; PULSE 84; RESP 17; TEMP 98.2; O2SAT 98
[2017-07-24] MEDS ORDERED: FUROSEMIDE 20 MG/2 ML VIAL IV PUSH ONE (01:15)
[2017-07-24] MEDS ORDERED: LORazepam 1 MG TAB PO PRN (01:15)
[2017-07-24] MEDS ORDERED: FLUMAZENIL 0.5 MG/5 ML VIAL IV PUSH PRN (01:15)
[2017-07-24] MEDS ORDERED: LORazepam 2 MG/ML VIAL IV PUSH PRN ×4 (01:15)
[2017-07-24] MEDS ORDERED: LORazepam 2 MG TAB PO PRN (01:15)
--- NOTE | 2017-07-24 01:18 | HHI.HP ---
[facility] Service [place] [place] [facility] Primary Care Physician PAT Clement Admission Diagnosis COPD exacerbation, severe hyponatremia Diagnoses: Travel History International Travel<30 Days: No Contact w/Intl Traveler <30 Da: No Traveled to Known Affected Are: No History of Present Illness 66-year-old male with a past medical history significant for A. fib anticoagulated on Coumadin, diabetes mellitus, COPD, hypertension, hyperlipidemia, coronary artery disease and peripheral vascular disease presents to the emergency department complaining of insomnia and increased weakness. The patient reports he has had his symptoms for approximately 1 week. He states he is so weak that he is unable to transfer to and from his wheelchair. He reports a lack of sleep and general malaise. He also endorses lower extremity edema and accompanying shortness of breath. He denies chest pain. No abdominal pain. No nausea/vomiting/diarrhea. No lateralizing signs/ symptoms. Review of Systems Except as stated in HPI: all other systems reviewed are Neg Past Family Social History Past Medical History Diabetes mellitus COPD Hypertension Hyperlipidemia A. fib anticoagulated on Coumadin CAD Peripheral vascular disease Past Surgical History CABG 3 in 2014 Aorto-bifemoral bypass Reported Medications Reported Meds & Active Scripts Active Prednisone (48) 10 mg tab Dose Pack (Prednisone) 10 Mg Dspk 10 Mg PO DIRECTED Metoprolol Tartrate 50 Mg Tab 50 Mg PO BID Coumadin (Warfarin) 4 Mg Tab 4 Mg PO DAILY@16 Oxygen tank (Oxygen) 1 Ea Tank Liter HANNAH.CANULA CONTINUOUS Oxygen Concentrator Portable Gaseous 2 L/min via Nasal Cannula Continuous For 99 months Spironolactone 25 Mg Tab 25 Mg PO DAILY Atorvastatin (Atorvastatin Calcium) 40 Mg Tab 40 Mg PO HS Protonix (Pantoprazole Sodium) 40 Mg Tab 40 Mg PO DAILY Duoneb (Ipratropium-Albuterol Neb) 0.5-2.5 Mg/3 Ml Neb 1 Ampule NEB Q6HR PRN Glucophage (Metformin HCl) 500 Mg Tab 500 Mg PO BIDPC With meals Ventolin Hfa 18 GM Inh (Albuterol Sulfate) 90 Mcg/Act Aer 2 Puff INH Q4-6H PRN Gabapentin 800 Mg Tab 800 Mg PO TID Symbicort Inh (Budesonide/Formoterol Fumarate) 160-4.5 Mcg/Act Aero 2 Puff INH Q12HR Aspirin EC (Aspirin) 81 Mg Tabdr 81 Mg PO DAILY Thera M Plus (Multivitamins/Minerals Therapeutic) 1 Tab 1 Tab PO DAILY Bedside Commode (Device) 1 Mis Mis 1 Ea .ROUTE DIRECTED Walker Rolling/GetGo (Device) 1 Mis Mis 1 Ea .ROUTE DIRECTED Reported Vitamin B-1 (Thiamine HCl) 100 Mg Tab 100 Mg PO DAILY Allergies: Coded Allergies: cefaclor (Verified Allergy, Intermediate, rash, 06/28/17) Family History Negative for CAD/DM Social History Smokes approximately 1 pack per day. Drinks between 2-5 beers daily. Denies illicit drugs. Physical Exam Vital Signs Vital Signs Date Time Temp Pulse Resp B/P (MAP) Pulse Ox O2 Delivery O2 Flow Rate FiO2 07/23/17 23:03 93 20 143/76 (98) 99 Nasal Cannula 2.00 07/23/17 20:07 100 Nasal Cannula 2.00 07/23/17 19:34 98 16 123/60 (81) 100 Room Air 07/23/17 18:58 98.4 105 22 104/56 (72) 100 Physical Exam GENERAL: male lying in bed SKIN: No rashes, ecchymoses or lesions. Cool and dry. HEAD: Atraumatic. Normocephalic. No temporal or scalp tenderness. EYES: Pupils equal round and reactive. Extraocular motions intact. No scleral icterus. No injection or drainage. ENT: Nose without bleeding, purulent drainage or septal hematoma. Throat without erythema, tonsillar hypertrophy or exudate. Uvula midline. Airway patent. NECK: Trachea midline. No JVD or lymphadenopathy. Supple, nontender, no meningeal signs. CARDIOVASCULAR: Regular rate and rhythm without murmurs, gallops, or rubs. RESPIRATORY: Bilateral wheezes. GASTROINTESTINAL: Abdomen soft, non-tender, nondistended. No hepato-splenomegaly , or palpable masses. No guarding. MUSCULOSKELETAL: Left BKA. Bilateral 2+ pitting edema to the knees. NEUROLOGICAL: Awake and alert. Cranial nerves II through XII intact. Motor and sensory grossly within normal limits. Normal speech. Laboratory Laboratory Tests Test 07/23/17 19:18 07/23/17 20:25 White Blood Count 10.1 Red Blood Count 3.98 Hemoglobin 12.0 Hematocrit 35.1 Mean Corpuscular Volume 88.3 Mean Corpuscular Hemoglobin 30.2 Mean Corpuscular Hemoglobin Concent 34.3 Red Cell Distribution Width 17.4 Platelet Count 208 Mean Platelet Volume 7.5 Neutrophils (%) (Auto) 84.8 Lymphocytes (%) (Auto) 10.4 Monocytes (%) (Auto) 4.0 Eosinophils (%) (Auto) 0.5 Basophils (%) (Auto) 0.3 Neutrophils # (Auto) 8.5 Lymphocytes # (Auto) 1.0 Monocytes # (Auto) 0.4 Eosinophils # (Auto) 0.0 Basophils # (Auto) 0.0 CBC Comment DIFF FINAL Differential Comment Prothrombin Time 15.8 Prothromb Time International Ratio 1.6 Activated Partial Thromboplast Time 27.8 Blood Urea Nitrogen 8 Creatinine 0.74 Random Glucose 177 Calcium Level 8.9 Magnesium Level 1.5 Sodium Level 118 Potassium Level 4.8 Chloride Level 86 Carbon Dioxide Level 22.9 Anion Gap 9 Estimat Glomerular Filtration Rate 106 Total Creatine Kinase 79 Troponin I LESS THAN 0.02 B-Type Natriuretic Peptide 60 Serum Osmolality 265 Result Diagram: 07/23/17191707/23/171917 Caprini VTE Risk Assessment Caprini VTE Risk Assessment: Mod/High Risk (score >= 2) Caprini Risk Assessment Model Point Value = 1 Point Value = 2 Point Value = 3 Point Value = 5 Age 41-60 Minor surgery BMI > 25 kg/m2 Swollen legs Varicose veins or History of unexplained or recurrent spontaneous Oral contraceptives or hormone replacement Sepsis (< 1 month) Serious lung disease, including pneumonia (< 1 month) Abnormal pulmonary function Acute myocardial infarction Congestive heart failure (< 1 month) History of inflammatory bowel disease Medical patient at bed rest Age 61-74 Arthroscopic surgery Major open surgery (> 45 min) Laparoscopic surgery (> 45 min) Malignancy Confined to bed (> 72 hours) Immobilizing plaster cast Central venous access Age >= 75 History of VTE Family history of VTE Factor V Leiden Prothrombin [id number] Lupus anticoagulant Anticardiolipin antibodies Elevated serum homocysteine Heparin-induced thrombocytopenia Other congenital or acquired thrombophilia Stroke (< 1 month) Elective arthroplasty Hip, pelvis, or leg fracture Acute spinal cord injury (< 1 month) Prophylaxis Regimen Total Risk Factor Score Risk Level Prophylaxis Regimen 0-1 Low Early ambulation 2 Moderate Order ONE of the following: *Sequential Compression Device (SCD) *Heparin 5000 units SQ BID 3-4 Higher Order ONE of the following medications: *Heparin 5000 units SQ TID *Enoxaparin/Lovenox 40 mg SQ daily (WT < 150 kg, CrCl > 30 mL/min) *Enoxaparin/Lovenox 30 mg SQ daily (WT < 150 kg, CrCl > 10-29 mL/min) *Enoxaparin/Lovenox 30 mg SQ BID (WT < 150 kg, CrCl > 30 mL/min) AND/OR *Sequential Compression Device (SCD) 5 or more Highest Order ONE of the following medications: *Heparin 5000 units SQ TID (Preferred with Epidurals) *Enoxaparin/Lovenox 40 mg SQ daily (WT < 150 kg, CrCl > 30 mL/min) *Enoxaparin/Lovenox 30 mg SQ daily (WT < 150 kg, CrCl > 10-29 mL/min) *Enoxaparin/Lovenox 30 mg SQ BID (WT < 150 kg, CrCl > 30 mL/min) AND *Sequential Compression Device (SCD) Assessment and Plan Assessment and Plan Assessment/plan: 1. Hyponatremia Sodium 118 Fluid restriction Monitor BMP 2. COPD exacerbation Patient with bilateral wheezes Duo nebs as needed No increase in cough or sputum production, no indication for antibiotics at this time 3. Diabetes mellitus Sliding-scale insulin Monitor blood glucose 4. Atrial fibrillation Continue home medications including anticoagulation with Coumadin 5. Hypertension/hyperlipidemia/CAD/PVD Continue home medications 6. Alcohol abuse Thiamine/folate/multivitamins CIWA protocol 7. Edema IV Lasix FEN Heart healthy diet with fluid restriction Electrolytes: As above Coumadin Physician Certification 2 Midnight Certification Type: Admission for Inpatient Services Order for Inpatient Services The services are ordered in accordance with Medicare regulations or non- Medicare payer requirements, as applicable. In the case of services not specified as inpatient-only, they are appropriately provided as inpatient services in accordance with the 2-midnight benchmark. Estimated LOS (days): 2 2 days is the estimated time the patient will need to remain in the hospital, assuming treatment plan goals are met and no additional complications. Post-Hospital Plan: Not yet determined Sheryl Condon MD Jul 24, 2017 01:17
[2017-07-24 04:00] VITALS: BP 145/71; PULSE 88; RESP 18; TEMP 98.2; O2SAT 98
[2017-07-24 07:36] VITALS: BP 122/63; PULSE 93; RESP 19; TEMP 98.7; O2SAT 98
[2017-07-24] MEDS: SODIUM CHLORIDE 0.9% FLUSH 10 ML FLUSH IV FLUSH SCH ×2 (08:34→22:35)
[2017-07-24] MEDS: FUROSEMIDE 20 MG/2 ML VIAL IV PUSH SCH ×2 (08:34→19:14)
[2017-07-24] MEDS: INSULIN ASPART SUPPLEMENTAL SCALE SQ SCH ×4 (08:34→21:00)
[2017-07-24] MEDS: ASPIRIN EC 81 MG TABEC PO SCH (08:35)
[2017-07-24] MEDS: FOLIC ACID 1 MG TAB PO SCH (08:35)
[2017-07-24] MEDS: DOCUSATE SODIUM 50 MG/SENNA 8.6 MG TAB PO SCH ×2 (08:35→22:34)
[2017-07-24] MEDS: METOPROLOL TARTRATE 50 MG TAB PO SCH ×2 (08:35→22:34)
[2017-07-24] MEDS: GABAPENTIN 400 MG CAP PO SCH ×3 (08:35→19:13)
[2017-07-24] MEDS: MULTIVITAMINS/MINERALS THERAPEUTIC TAB PO SCH (08:36)
[2017-07-24] MEDS: THIAMINE HCL 100 MG TAB PO SCH (08:36)
[2017-07-24] MEDS: PANTOPRAZOLE SOD 40 MG DELAYED RELEASE TAB PO SCH (08:36)
[2017-07-24] MEDS: BUDESONIDE-FORMOTEROL 160/4.5 MCG INHALER INH SCH ×2 (08:43→22:36)
[2017-07-24] MEDS ORDERED: SPIRONOLACTONE 25 MG TAB PO SCH (09:00)
[2017-07-24] MEDS ORDERED: ACETAMINOPHEN/HYDROcodone 325 MG/5 MG TAB PO PRN (09:30)
[2017-07-24] MEDS: ACETAMINOPHEN/HYDROcodone 325 MG/10 MG TAB PO PRN ×4 (10:19→23:13)
[2017-07-24 13:16] LABS: BICARBONATE 29.1 MEQ/L (21.0-32.0); CALCIUM 8.6 MG/DL (8.5-10.1); CREATININE 0.59 MG/DL (0.60-1.30)
[2017-07-24] MEDS: WARFARIN SOD 4 MG TAB PO SCH (15:13)
[2017-07-24 16:00] VITALS: BP 130/59; PULSE 74; RESP 18; TEMP 98; O2SAT 95
[2017-07-24 17:30] VITALS: O2SAT 95
[2017-07-24 20:45] VITALS: BP 113/56; PULSE 85; RESP 17; TEMP 97.6; O2SAT 98
[2017-07-24] MEDS: ATORVASTATIN 40 MG TAB PO SCH (22:34)
--- NOTE | 2017-07-24 22:46 | EKG ---
Date Performed: 07/23/2017 Time Performed: 19:09:17 PTAGE: 66 years EKG: SINUS TACHYCARDIA INDETERMINATE AXIS RIGHT BUNDLE BRANCH BLOCK ABNORMAL ECG PREVIOUS TRACING : 03/29/2017 11.30 Since the previous tracing, no significant change noted DOCTOR: Alondra Gilbert Interpretating Date/Time 07/24/2017 22:44:33
[2017-07-25] VITALS (10 sets, daily range): BP systolic 93–121; BP diastolic 56–64; PULSE 63–86; RESP 17–19; TEMP 97–98.7; O2SAT 93–100
[2017-07-25] MEDS: ACETAMINOPHEN/HYDROcodone 325 MG/10 MG TAB PO PRN ×7 (03:12→23:53)
[2017-07-25] MEDS: INSULIN ASPART SUPPLEMENTAL SCALE SQ SCH ×4 (08:00→21:00)
[2017-07-25 09:43] LABS: AUTOMATED NEUTROPHIL # 6.6 TH/MM3 (1.8-7.7); BASOPHIL % 0.2 % (0.0-2.0); EOSINOPHIL # 0.1 TH/MM3 (0-0.4); EOSINOPHIL % 0.7 % (0.0-4.0); HEMATOCRIT 32.6 % (39.0-51.0); HEMOGLOBIN 11.1 GM/DL (13.0-17.0); LYMPH % 16.8 % (9.0-44.0); LYMPHOCYTE # 1.5 TH/MM3 (1.0-4.8); MEAN CELL VOLUME 89.5 FL (80.0-100.0); MEAN CORPUSCULAR HEMOGLOBIN 30.4 PG (27.0-34.0); MEAN PLATELET VOLUME 7.9 FL (7.0-11.0); MONO % 9.1 % (0.0-8.0); MONOCYTE # 0.8 TH/MM3 (0-0.9); NEUT % 73.2 % (16.0-70.0); PLATELET COUNT 181 TH/MM3 (150-450); RED BLOOD COUNT 3.65 MIL/MM3 (4.50-5.90); RED CELL DISTRIBUTION WIDTH 17.1 % (11.6-17.2)
[2017-07-25 10:08] LABS: BICARBONATE 29.5 MEQ/L (21.0-32.0); CALCIUM 9.1 MG/DL (8.5-10.1); CREATININE 0.71 MG/DL (0.60-1.30)
[2017-07-25] MEDS: BUDESONIDE-FORMOTEROL 160/4.5 MCG INHALER INH SCH ×2 (10:56→23:38)
[2017-07-25] MEDS: DOCUSATE SODIUM 50 MG/SENNA 8.6 MG TAB PO SCH ×2 (10:57→21:00)
[2017-07-25] MEDS: GABAPENTIN 400 MG CAP PO SCH ×3 (10:57→17:28)
[2017-07-25] MEDS: PANTOPRAZOLE SOD 40 MG DELAYED RELEASE TAB PO SCH (10:57)
[2017-07-25] MEDS: ASPIRIN EC 81 MG TABEC PO SCH (10:57)
[2017-07-25] MEDS: METOPROLOL TARTRATE 50 MG TAB PO SCH ×2 (10:58→21:00)
[2017-07-25] MEDS: FOLIC ACID 1 MG TAB PO SCH (10:58)
[2017-07-25] MEDS: THIAMINE HCL 100 MG TAB PO SCH (10:58)
[2017-07-25] MEDS: SODIUM CHLORIDE 0.9% FLUSH 10 ML FLUSH IV FLUSH SCH ×2 (10:59→21:00)
[2017-07-25] MEDS: MULTIVITAMINS/MINERALS THERAPEUTIC TAB PO SCH (11:02)
--- NOTE | 2017-07-25 12:51 | HHI.PR ---
Subjective Remarks Follow-up for COPD exacerbation, hyponatremia. Patient is currently doing well. Currently on 2 L of oxygen via nasal cannula. No chest pain, fever or chills. Objective Vitals Vital Signs Date Time Temp Pulse Resp B/P (MAP) Pulse Ox O2 Delivery O2 Flow Rate FiO2 07/25/17 12:00 98.3 78 18 117/60 (79) 98 07/25/17 08:00 97.6 76 18 121/64 (83) 100 07/25/17 05:45 97.0 86 18 104/56 (72) 98 07/25/17 00:00 98.0 75 18 115/60 (78) 97 07/24/17 22:40 95 Nasal Cannula 2.00 07/24/17 20:45 97.6 85 17 113/56 (75) 98 07/24/17 17:30 95 21 07/24/17 16:00 98.0 74 18 130/59 (82) 95 I/O 07/24/17 07/24/17 07/24/17 07/25/17 07/25/17 07/25/17 07:00 15:00 23:00 07:00 15:00 23:00 Intake Total 350 ml 900 ml 1000 ml Output Total 2000 ml 1550 ml 1400 ml 950 ml 400 ml Balance -1650 ml -1550 ml -500 ml 50 ml -400 ml Intake Oral 350 ml 900 ml 1000 ml Output Urine Total 2000 ml 1550 ml 1400 ml 950 ml 400 ml # Bowel Movements 1 0 0 Result Diagram: 07/25/17 0806 07/25/17 0806 Imaging Last Impressions Chest X-Ray 07/23/17 1901 Signed Impressions: Service Date/Time: Sunday, July 23, 2017 19:22 - CONCLUSION: Hyperinflation without evidence for an infiltrate. Azael Mckeon MD Objective Remarks GENERAL: Alert, oriented 3, NAD. SKIN: Warm and dry. HEAD: Normocephalic. EYES: No scleral icterus. No injection or drainage. NECK: Supple, trachea midline. No JVD or lymphadenopathy. CARDIOVASCULAR: Regular rate and rhythm without murmurs, gallops, or rubs. RESPIRATORY: Breath sounds equal bilaterally. No accessory muscle use. GASTROINTESTINAL: Abdomen soft, non-tender, nondistended. MUSCULOSKELETAL: No cyanosis, or edema. BACK: Nontender without obvious deformity. No CVA tenderness. Procedures None A/P Problem List: (1) Hyponatremia ICD Code: E87.1 - Hypo-osmolality and hyponatremia Status: Acute (2) COPD exacerbation ICD Code: J44.1 - Chronic obstructive pulmonary disease with (acute) exacerbation Status: Acute (3) Atrial fibrillation ICD Code: I48.91 - Unspecified atrial fibrillation Assessment and Plan 66-year-old male with a past medical history significant for A. fib anticoagulated on Coumadin, diabetes mellitus, COPD, hypertension, hyperlipidemia, coronary artery disease and peripheral vascular disease presents to the emergency department due to hyponatremia noted by his primary care doctor and increased generalized weakness. He also complained of shortness of breath due to COPD. He continues to smoke. Acute exacerbation of COPD Start DuoNeb scheduled and continue DuoNeb as needed. Continue Symbicort. Start prednisone 20 mg twice daily and Levaquin 750 daily Supplemental oxygen to keep O2 saturation around 90%. Severe hyponatremia Sodium 118 on admission. Improved to 124. Will discontinue Lasix IV as well as spironolactone. Patient had cardiomyopathy but that improved in 2014. Per cardiology note from April 2016, Patient with history of EF 25% 2014 with resolution of cardiomyopathy by 01/2015 when EF 60% by echo. BNP 60 -should symptoms are not likely due to CHF. Hyperlipidemia Peripheral neuropathy Continue atorvastatin 40 mg, gabapentin 800 mg 3 times daily. Diabetes mellitus Goal blood sugar 140 -180. Patient is currently on sliding scale insulin. Will start patient on Levemir 7 units nightly. Will titrate as necessary. Atrial fibrillation Continue metoprolol 50 mg twice daily. Patient is on warfarin. Will obtain pharmacy consult for warfarin. Discussed with patient at length regarding switching to apixaban. We discussed about pros and cons. Patient will discuss with his primary care provider regarding switching to apixaban. Full code. Warfarin. Omar Estes DO Jul 25, 2017 12:51 pm
[2017-07-25] MEDS: LEVOFLOXACIN 750 MG TAB PO SCH (15:18)
[2017-07-25] MEDS: RESP: ALBUTEROL 2.5 MG/IPRATROPIUM 0.5 MG NEB (SCH) NEB ×2 (15:51→20:45)
[2017-07-25] MEDS: WARFARIN SOD 4 MG TAB PO SCH (17:27)
[2017-07-25] MEDS: TORSEMIDE 5 MG TAB PO SCH (18:54)
[2017-07-25] MEDS ORDERED: INSULIN DETEMIR 100 UNITS/ML VIAL SQ SCH (21:00)
[2017-07-25] MEDS: ATORVASTATIN 40 MG TAB PO SCH ×2 (23:37→23:53)
[2017-07-25] MEDS: predniSONE 20 MG TAB PO SCH ×2 (23:37→23:53)
[2017-07-26] VITALS (8 sets, daily range): BP systolic 93–160; BP diastolic 50–72; PULSE 73–93; RESP 18; TEMP 97.7–98.6; O2SAT 96–100
[2017-07-26] MEDS: ACETAMINOPHEN/HYDROcodone 325 MG/10 MG TAB PO PRN ×5 (04:20→21:52)
[2017-07-26 07:36] LABS: INTERNATIONAL NORMALIZED RATIO 1.7 RATIO; PROTHROMBIN TIME - PATIENT 17.3 SEC (9.8-11.6)
[2017-07-26] MEDS: RESP: ALBUTEROL 2.5 MG/IPRATROPIUM 0.5 MG NEB (SCH) NEB ×3 (07:42→19:34)
[2017-07-26] MEDS: INSULIN ASPART SUPPLEMENTAL SCALE SQ SCH ×4 (08:37→22:23)
[2017-07-26] MEDS: BUDESONIDE-FORMOTEROL 160/4.5 MCG INHALER INH SCH ×2 (08:38→21:52)
[2017-07-26] MEDS: SODIUM CHLORIDE 0.9% FLUSH 10 ML FLUSH IV FLUSH SCH ×2 (08:39→21:53)
[2017-07-26] MEDS: GABAPENTIN 400 MG CAP PO SCH ×3 (08:44→17:19)
[2017-07-26] MEDS: TORSEMIDE 5 MG TAB PO SCH ×2 (08:44→17:18)
[2017-07-26] MEDS: MULTIVITAMINS/MINERALS THERAPEUTIC TAB PO SCH (08:45)
[2017-07-26] MEDS: LEVOFLOXACIN 750 MG TAB PO SCH (08:45)
[2017-07-26] MEDS: METOPROLOL TARTRATE 50 MG TAB PO SCH ×2 (08:47→21:51)
[2017-07-26] MEDS: PANTOPRAZOLE SOD 40 MG DELAYED RELEASE TAB PO SCH (08:48)
[2017-07-26] MEDS: FOLIC ACID 1 MG TAB PO SCH (08:48)
[2017-07-26] MEDS: predniSONE 20 MG TAB PO SCH ×2 (08:48→21:51)
[2017-07-26] MEDS: DOCUSATE SODIUM 50 MG/SENNA 8.6 MG TAB PO SCH ×2 (08:48→21:00)
[2017-07-26] MEDS: THIAMINE HCL 100 MG TAB PO SCH (08:48)
[2017-07-26] MEDS ORDERED: PNEUMOCOCCAL POLYVALENT INJ 25 MCG/0.5 ML SYR IM ONE (10:00)
[2017-07-26 11:54] LABS: BICARBONATE 31.3 MEQ/L (21.0-32.0); CALCIUM 8.6 MG/DL (8.5-10.1); CREATININE 0.77 MG/DL (0.60-1.30)
[2017-07-26] MEDS: WARFARIN SOD 4 MG TAB PO SCH (17:19)
--- NOTE | 2017-07-26 17:27 | HHI.PR ---
Subjective Remarks Follow-up for COPD exacerbation, hyponatremia. Patient is doing well. Afebrile, on 2L of O2 via NC. No fever, chills. Objective Vitals Vital Signs Date Time Temp Pulse Resp B/P (MAP) Pulse Ox O2 Delivery O2 Flow Rate FiO2 07/26/17 16:43 98.6 88 18 151/72 (98) 100 07/26/17 12:06 97.7 73 18 125/68 (87) 98 07/26/17 08:52 Nasal Cannula 2.00 07/26/17 08:38 97.8 80 18 160/70 (100) 100 07/26/17 07:42 98 Nasal Cannula 2.00 07/26/17 04:00 97.8 93 18 119/61 (80) 96 07/26/17 00:00 98.1 86 18 93/50 (64) 97 07/25/17 21:00 98.7 85 19 106/60 (75) 97 07/25/17 20:48 99 Nasal Cannula 2.00 07/25/17 20:00 Nasal Cannula 2.00 07/25/17 20:00 97.5 76 17 93/64 (74) 93 I/O 07/25/17 07/25/17 07/25/17 07/26/17 07/26/17 07/26/17 07:00 15:00 23:00 07:00 15:00 23:00 Intake Total 1000 ml 560 ml Output Total 950 ml 400 ml 700 ml 320 ml Balance 50 ml -400 ml -140 ml -320 ml Intake Oral 1000 ml 560 ml Output Urine Total 950 ml 400 ml 700 ml 320 ml # Bowel Movements 0 1 Result Diagram: 07/25/17 0806 07/26/17 1022 Imaging Last Impressions Chest X-Ray 07/23/17 1901 Signed Impressions: Service Date/Time: Sunday, July 23, 2017 19:22 - CONCLUSION: Hyperinflation without evidence for an infiltrate. Azael Mckeon MD Objective Remarks GENERAL: Alert, oriented 3, NAD. SKIN: Warm and dry. HEAD: Normocephalic. EYES: No scleral icterus. No injection or drainage. NECK: Supple, trachea midline. No JVD or lymphadenopathy. CARDIOVASCULAR: Regular rate and rhythm without murmurs, gallops, or rubs. RESPIRATORY: Breath sounds equal bilaterally. No accessory muscle use. GASTROINTESTINAL: Abdomen soft, non-tender, nondistended. MUSCULOSKELETAL: No cyanosis, or edema. BACK: Nontender without obvious deformity. No CVA tenderness. Procedures None A/P Problem List: (1) Hyponatremia ICD Code: E87.1 - Hypo-osmolality and hyponatremia Status: Acute (2) COPD exacerbation ICD Code: J44.1 - Chronic obstructive pulmonary disease with (acute) exacerbation Status: Acute (3) Atrial fibrillation ICD Code: I48.91 - Unspecified atrial fibrillation Assessment and Plan 66-year-old male with a past medical history significant for A. fib anticoagulated on Coumadin, diabetes mellitus, COPD, hypertension, hyperlipidemia, coronary artery disease and peripheral vascular disease presents to the emergency department due to hyponatremia noted by his primary care doctor and increased generalized weakness. He also complained of shortness of breath due to COPD. He continues to smoke. Acute exacerbation of COPD Start DuoNeb scheduled and continue DuoNeb as needed. Continue Symbicort. Start prednisone 20 mg twice daily and Levaquin 750 daily Supplemental oxygen to keep O2 saturation around 90%. Severe hyponatremia Sodium 118 on admission. Improved initially to 124, today 123. Patient had cardiomyopathy but that improved in 2014. Will continue Torsemide 10mg BID. Per cardiology note from April 2016, Patient with history of EF 25% 2014 with resolution of cardiomyopathy by 01/2015 when EF 60% by echo. BNP 60 - symptoms are not likely due to CHF. Will obtain serum osm, urinary sodium loss. Start NACL 1g Qday. If no improvement, we will consider nephrology consult. Hyperlipidemia Peripheral neuropathy Continue atorvastatin 40 mg, gabapentin 800 mg 3 times daily. Diabetes mellitus Goal blood sugar 140 -180. Patient is currently on sliding scale insulin. Continue Levemir 10 units nightly. Will titrate as necessary. Atrial fibrillation Continue metoprolol 50 mg twice daily. Patient is on warfarin. Will obtain pharmacy consult for warfarin. Discussed with patient at length regarding switching to apixaban. We discussed about pros and cons. Patient will discuss with his primary care provider regarding switching to apixaban. Full code. Warfarin. Omar Estes DO Jul 26, 2017 17:27
[2017-07-26] MEDS ORDERED: SODIUM CHLORIDE 1 GRAM TAB PO ONE (17:30)
[2017-07-26] MEDS ORDERED: INSULIN DETEMIR 100 UNITS/ML VIAL SQ SCH (21:00)
[2017-07-26] MEDS: ATORVASTATIN 40 MG TAB PO SCH (21:51)
[2017-07-27] VITALS (7 sets, daily range): BP systolic 124–162; BP diastolic 65–89; PULSE 67–94; RESP 18; TEMP 97.2–98.3; O2SAT 95–100
[2017-07-27] MEDS: ACETAMINOPHEN/HYDROcodone 325 MG/10 MG TAB PO PRN ×5 (02:45→22:18)
[2017-07-27] MEDS: RESP: ALBUTEROL 2.5 MG/IPRATROPIUM 0.5 MG NEB (SCH) NEB ×3 (07:38→19:27)
[2017-07-27] MEDS: PANTOPRAZOLE SOD 40 MG DELAYED RELEASE TAB PO SCH (09:00)
[2017-07-27 09:32] LABS: INTERNATIONAL NORMALIZED RATIO 1.6 RATIO; PROTHROMBIN TIME - PATIENT 16.5 SEC (9.8-11.6)
[2017-07-27] MEDS: INSULIN ASPART SUPPLEMENTAL SCALE SQ SCH ×4 (09:49→22:32)
[2017-07-27] MEDS: GABAPENTIN 400 MG CAP PO SCH ×3 (09:50→17:32)
[2017-07-27] MEDS: BUDESONIDE-FORMOTEROL 160/4.5 MCG INHALER INH SCH ×2 (09:50→22:32)
[2017-07-27] MEDS: METOPROLOL TARTRATE 50 MG TAB PO SCH ×2 (09:51→22:19)
[2017-07-27] MEDS: SODIUM CHLORIDE 1 GRAM TAB PO SCH (09:51)
[2017-07-27] MEDS: FOLIC ACID 1 MG TAB PO SCH (09:51)
[2017-07-27] MEDS: THIAMINE HCL 100 MG TAB PO SCH (09:52)
[2017-07-27] MEDS: predniSONE 20 MG TAB PO SCH ×2 (09:52→22:18)
[2017-07-27] MEDS: MULTIVITAMINS/MINERALS THERAPEUTIC TAB PO SCH (09:52)
[2017-07-27] MEDS: LEVOFLOXACIN 750 MG TAB PO SCH (09:52)
[2017-07-27] MEDS: DOCUSATE SODIUM 50 MG/SENNA 8.6 MG TAB PO SCH ×2 (09:53→21:00)
[2017-07-27] MEDS: TORSEMIDE 5 MG TAB PO SCH (10:01)
[2017-07-27] MEDS: SODIUM CHLORIDE 0.9% FLUSH 10 ML FLUSH IV FLUSH SCH ×2 (10:02→22:32)
[2017-07-27] MEDS ORDERED: TEMAZEPAM 15 MG CAP PO PRN (12:00)
[2017-07-27 13:12] LABS: CALCIUM 8.7 MG/DL (8.5-10.1); CREATININE 0.62 MG/DL (0.60-1.30)
[2017-07-27] MEDS: WARFARIN SOD 4 MG TAB PO SCH (15:25)
--- NOTE | 2017-07-27 15:40 | HHI.PR ---
Subjective Remarks Follow-up for COPD exacerbation, hyponatremia. Patient is currently doing well. Denies any chest pain, shortness of breath, fever or chills. Tolerating diet well. Objective Vitals Vital Signs Date Time Temp Pulse Resp B/P (MAP) Pulse Ox O2 Delivery O2 Flow Rate FiO2 07/27/17 12:24 97.7 67 18 147/89 (108) 100 07/27/17 08:11 97.5 68 18 143/66 (91) 99 07/27/17 05:10 97.2 78 18 138/83 (101) 98 07/27/17 00:41 97.5 86 18 124/68 (86) 96 07/26/17 21:04 97.7 90 18 137/66 (89) 100 07/26/17 19:35 97 Nasal Cannula 2.00 07/26/17 16:43 98.6 88 18 151/72 (98) 100 I/O 07/26/17 07/26/17 07/26/17 07/27/17 07/27/17 07/27/17 07:00 15:00 23:00 07:00 15:00 23:00 Intake Total 560 ml Output Total 700 ml 320 ml 440 ml 1900 ml Balance -140 ml -320 ml -440 ml -1900 ml Intake Oral 560 ml Output Urine Total 700 ml 320 ml 440 ml 1900 ml # Bowel Movements 1 Result Diagram: 07/25/17 0806 07/27/17 0805 Imaging Last Impressions Chest X-Ray 07/23/17 1901 Signed Impressions: Service Date/Time: Sunday, July 23, 2017 19:22 - CONCLUSION: Hyperinflation without evidence for an infiltrate. Azael Mckeon MD Objective Remarks GENERAL: Alert, oriented 3, NAD. SKIN: Warm and dry. HEAD: Normocephalic. EYES: No scleral icterus. No injection or drainage. NECK: Supple, trachea midline. No JVD or lymphadenopathy. CARDIOVASCULAR: Regular rate and rhythm without murmurs, gallops, or rubs. RESPIRATORY: Breath sounds equal bilaterally. No accessory muscle use. GASTROINTESTINAL: Abdomen soft, non-tender, nondistended. MUSCULOSKELETAL: No cyanosis, or edema. BACK: Nontender without obvious deformity. No CVA tenderness. Procedures None A/P Problem List: (1) Hyponatremia ICD Code: E87.1 - Hypo-osmolality and hyponatremia Status: Acute (2) COPD exacerbation ICD Code: J44.1 - Chronic obstructive pulmonary disease with (acute) exacerbation Status: Acute (3) Atrial fibrillation ICD Code: I48.91 - Unspecified atrial fibrillation Assessment and Plan 66-year-old male with a past medical history significant for A. fib anticoagulated on Coumadin, diabetes mellitus, COPD, hypertension, hyperlipidemia, coronary artery disease and peripheral vascular disease presents to the emergency department due to hyponatremia noted by his primary care doctor and increased generalized weakness. He also complained of shortness of breath due to COPD. He continues to smoke. Acute exacerbation of COPD Start DuoNeb scheduled and continue DuoNeb as needed. Continue Symbicort. prednisone 20 mg twice daily and Levaquin 750 daily Supplemental oxygen to keep O2 saturation around 90%. Severe hyponatremia Sodium 118 on admission. Improved initially to 124 --> 126 today. Patient had cardiomyopathy but that improved in 2014. Per cardiology note from April 2016, Patient with history of EF 25% 2014 with resolution of cardiomyopathy by 01/2015 when EF 60% by echo. D/C torsemide as well. BNP 60 - symptoms are not likely due to CHF. Serum Osm 274, Urinary sodium 55, Will obtain Urinary osm. Start NACL 1g Qday. Hyperlipidemia Peripheral neuropathy Continue atorvastatin 40 mg, gabapentin 800 mg 3 times daily. Diabetes mellitus Goal blood sugar 140 -180. Patient is currently on sliding scale insulin. Continue Levemir 15 units nightly. Will titrate as necessary. Atrial fibrillation Continue metoprolol 50 mg twice daily. Patient is on warfarin. Discussed with patient at length regarding switching to apixaban. We discussed about pros and cons. Patient will discuss with his primary care provider regarding switching to apixaban. Full code. Warfarin. Omar Estes DO Jul 27, 2017 3:40 pm
[2017-07-27] MEDS ORDERED: WARFARIN SOD 2 MG TAB PO ONE (16:00)
[2017-07-27] MEDS ORDERED: INSULIN DETEMIR 100 UNITS/ML VIAL SQ SCH (21:00)
[2017-07-27] MEDS: ATORVASTATIN 40 MG TAB PO SCH (22:18)
[2017-07-28] VITALS: BP 157/83; PULSE 106; RESP 20; TEMP 97.1; O2SAT 92
[2017-07-28 04:00] VITALS: BP 163/87; PULSE 87; RESP 18; TEMP 97.8; O2SAT 94
[2017-07-28 08:00] VITALS: BP 149/72; PULSE 82; RESP 18; TEMP 98.2; O2SAT 98
[2017-07-28] MEDS: ACETAMINOPHEN/HYDROcodone 325 MG/10 MG TAB PO PRN ×2 (08:08→12:13)
[2017-07-28] MEDS: GABAPENTIN 400 MG CAP PO SCH ×2 (08:08→12:13)
[2017-07-28] MEDS: THIAMINE HCL 100 MG TAB PO SCH (08:08)
[2017-07-28] MEDS: MULTIVITAMINS/MINERALS THERAPEUTIC TAB PO SCH (08:08)
[2017-07-28] MEDS: LEVOFLOXACIN 750 MG TAB PO SCH (08:08)
[2017-07-28] MEDS: SODIUM CHLORIDE 1 GRAM TAB PO SCH (08:08)
[2017-07-28] MEDS: PANTOPRAZOLE SOD 40 MG DELAYED RELEASE TAB PO SCH (08:08)
[2017-07-28] MEDS: DOCUSATE SODIUM 50 MG/SENNA 8.6 MG TAB PO SCH (08:08)
[2017-07-28] MEDS: METOPROLOL TARTRATE 50 MG TAB PO SCH (08:08)
[2017-07-28] MEDS: predniSONE 20 MG TAB PO SCH (08:08)
[2017-07-28] MEDS: INSULIN ASPART SUPPLEMENTAL SCALE SQ SCH ×2 (08:09→12:50)
[2017-07-28] MEDS: BUDESONIDE-FORMOTEROL 160/4.5 MCG INHALER INH SCH (08:09)
[2017-07-28] MEDS: SODIUM CHLORIDE 0.9% FLUSH 10 ML FLUSH IV FLUSH SCH (08:09)
[2017-07-28] MEDS: FOLIC ACID 1 MG TAB PO SCH (08:10)
[2017-07-28 08:18] LABS: INTERNATIONAL NORMALIZED RATIO 1.7 RATIO; PROTHROMBIN TIME - PATIENT 16.7 SEC (9.8-11.6)
[2017-07-28] MEDS: RESP: ALBUTEROL 2.5 MG/IPRATROPIUM 0.5 MG NEB (SCH) NEB ×2 (08:45→14:00)
[2017-07-28 11:48] LABS: BICARBONATE 29.1 MEQ/L (21.0-32.0); CALCIUM 8.6 MG/DL (8.5-10.1); CREATININE 0.7 MG/DL (0.60-1.30)
[2017-07-28 12:00] VITALS: BP 158/71; PULSE 78; RESP 18; TEMP 98.3; O2SAT 96
[2017-07-28] MEDS ORDERED: HYDR-3583 PO (12:15)
[2017-07-28] MEDS ORDERED: LEVA750T9 PO (12:15)
[2017-07-28] MEDS ORDERED: SODI1TAB PO (12:17)
[2017-07-28] MEDS ORDERED: PRED20 PO (12:17)
--- NOTE | 2017-07-28 12:30 | HHI.FF ---
Face to Face Verification Diagnosis: (1) COPD exacerbation (2) Hyponatremia (3) Atrial fibrillation Physical Therapy Order: Evaluate and Treat, Improve ambulation, Strength and gait training Home Health Nursing Order: Medical education Oxygen administration education Medication education-adverse effect Nursing assessment with vital signs I have seen patient Guanaco Salcedo on 07/28/17. My clinical findings support the need for the requested home health care services because: Ltd mobility - disease progression Patient has SOB Deconditioned w/ increased weakness Limited ability to care for self Need for psychosocial assistance High risk of falls Infection w/ risk of complications I certify that my clinical findings support that this patient is homebound because: Hx COPD- exertion dyspnea/weakness Unsteady gait/balance Unsafe to leave home unassisted Need for psychosocial assistance [id number] bed/chair Unable to use public transportation Omar Estes DO Jul 28, 2017 12:30 pm
[2017-07-28] MEDS: WARFARIN SOD 4 MG TAB PO SCH (15:37)
--- NOTE | 2017-07-28 23:05 | HHI.DS ---
Discharge Summary Admission Date Jul 23, 2017 at 21:35 Discharge Date: Jul 28, 2017 Admitting Diagnosis COPD exacerbation, severe hyponatremia (1) Hyponatremia ICD Code: E87.1 - Hypo-osmolality and hyponatremia Status: Acute (2) COPD exacerbation ICD Code: J44.1 - Chronic obstructive pulmonary disease with (acute) exacerbation Status: Acute (3) Atrial fibrillation ICD Code: I48.91 - Unspecified atrial fibrillation Procedures None Brief History - From Admission 66-year-old male with a past medical history significant for A. fib anticoagulated on Coumadin, diabetes mellitus, COPD, hypertension, hyperlipidemia, coronary artery disease and peripheral vascular disease presents to the emergency department complaining of insomnia and increased weakness. The patient reports he has had his symptoms for approximately 1 week. He states he is so weak that he is unable to transfer to and from his wheelchair. He reports a lack of sleep and general malaise. He also endorses lower extremity edema and accompanying shortness of breath. He denies chest pain. No abdominal pain. No nausea/vomiting/diarrhea. No lateralizing signs/ symptoms. CBC/BMP: 07/25/17 0806 07/28/17 1030 Significant Findings Laboratory Tests Test 07/26/17 06:26 07/26/17 10:22 07/27/17 02:30 07/27/17 08:05 Prothrombin Time 17.3 SEC (9.8-11.6) 16.5 SEC (9.8-11.6) Random Glucose 179 MG/DL (74-106) 161 MG/DL (74-106) Sodium Level 123 MEQ/L (136-145) 126 MEQ/L (136-145) Chloride Level 86 MEQ/L (98-107) 86 MEQ/L (98-107) Serum Osmolality 274 MOSM/KG (275-295) Test 07/27/17 16:32 07/28/17 07:43 07/28/17 10:30 Urine Osmolality 265 MOSM/KG (300-1300) Prothrombin Time 16.7 SEC (9.8-11.6) Random Glucose 220 MG/DL (74-106) Sodium Level 126 MEQ/L (136-145) Chloride Level 90 MEQ/L (98-107) Imaging Last Impressions Chest X-Ray 07/23/17 1901 Signed Impressions: Service Date/Time: Sunday, July 23, 2017 19:22 - CONCLUSION: Hyperinflation without evidence for an infiltrate. Azael Mckeon MD PE at Discharge GENERAL: Alert, oriented 3, NAD. SKIN: Warm and dry. HEAD: Normocephalic. EYES: No scleral icterus. No injection or drainage. NECK: Supple, trachea midline. No JVD or lymphadenopathy. CARDIOVASCULAR: Regular rate and rhythm without murmurs, gallops, or rubs. RESPIRATORY: Breath sounds equal bilaterally. No accessory muscle use. GASTROINTESTINAL: Abdomen soft, non-tender, nondistended. MUSCULOSKELETAL: No cyanosis, or edema. BACK: Nontender without obvious deformity. No CVA tenderness. Pt update on day of discharge Patient is currently doing well. No acute concerns. He stated that he only uses supplemental O2 at night. We took him off O2 and at rest his O2 saturation was 97%. He was advised to follow up with his PCP and obtain BMP in one week. He was also given form 3008 in case he decides to go to SNF. He was discharged home with home health. Hospital Course 66-year-old male with a past medical history significant for A. fib anticoagulated on Coumadin, diabetes mellitus, COPD, hypertension, hyperlipidemia, coronary artery disease and peripheral vascular disease presents to the emergency department due to hyponatremia noted by his primary care doctor and increased generalized weakness. He also complained of shortness of breath due to COPD. He continues to smoke. Acute exacerbation of COPD Start DuoNeb scheduled and continue DuoNeb as needed. Continue Symbicort. prednisone 20 mg twice daily and Levaquin 750 daily Supplemental oxygen to keep O2 saturation around 90%. Severe hyponatremia Sodium 118 on admission. Improved initially to 124 --> 126 today. Patient had cardiomyopathy but that improved in 2014. Per cardiology note from April 2016, Patient with history of EF 25% 2014 with resolution of cardiomyopathy by 01/2015 when EF 60% by echo. D/C torsemide as well. BNP 60 - symptoms are not likely due to CHF. Serum Osm 274, Urinary sodium 55, Urinary OSM 300. Patient's hyponatremia is likely due to diuretics. Will discontinue all diuretics. His Na is stable at 126. Advised patient to obtain BMP in one week. He can follow up with [facility]. Altamirano if needed. Hyperlipidemia Peripheral neuropathy Continue atorvastatin 40 mg, gabapentin 800 mg 3 times daily. Diabetes mellitus Goal blood sugar 140 -180. Patient is currently on sliding scale insulin. Continue Levemir 15 units nightly. Will titrate as necessary. Atrial fibrillation Continue metoprolol 50 mg twice daily. Patient is on warfarin. Patient did not want to switch during this hospitalization. Discussed with patient at length regarding switching to apixaban. We discussed about pros and cons. Patient will discuss with his primary care provider regarding switching to apixaban. Full code. Warfarin. Pt Condition on Discharge: Good Discharge Disposition: Disch w/ Home Health Serv Discharge Time: > 30 minutes Discharge Instructions DIET: Follow Instructions for: Heart Healthy Diet Activities you can perform: Regular-No Restrictions Follow up Referrals: Nephrology - 2 Weeks with Daya Altamirano MD PCP Follow-up - 1 Week SNF[facility]/ with [facility]: [phone] SNF/[facility]/ with [facility] New Medications: Sodium Chloride (Sodium Chloride) 1 Gram Tab 1 GM PO DAILY for Electrolyte Replacement, #10 TAB 0 Refills Hydrocodone/Acetaminophen (Hydrocodone-Acetamin 10-325 mg) 10 Mg-325 Mg Tablet 1 TAB PO Q6HR PRN for Pain 7 to 10, #12 TAB Levofloxacin (Levaquin) 750 Mg Tablet 750 MG PO DAILY for Infection, #3 TAB Prednisone (Prednisone) 20 Mg Tab 20 MG PO BID for COPD, #6 TAB Continued Medications: Albuterol 18 GM Inh (Ventolin Hfa 18 GM Inh) 90 Mcg/Act Aer 2 PUFF INH Q4-6H PRN for SHORTNESS OF BREATH, #1 INHALER 4 Refills Atorvastatin (Atorvastatin) 40 Mg Tab 40 MG PO HS for Cholesterol Management, #30 TAB 2 Refills Budesonide-Formoterol Inh (Symbicort Inh) 160-4.5 Mcg/Act Aero 2 PUFF INH Q12HR, #1 INHALER 1 Refill Gabapentin (Gabapentin) 800 Mg Tab 800 MG PO TID, #90 TAB 1 Refill Ipratropium-Albuterol Neb (Duoneb) 0.5-2.5 Mg/3 Ml Neb 1 AMPULE NEB Q6HR PRN for SHORTNESS OF BREATH, #180 ML 1 Refill Metformin (Glucophage) 500 Mg Tab 500 MG PO BIDPC for Blood Sugar Management, #60 TAB 3 Refills With meals Metoprolol Tartrate (Metoprolol Tartrate) 50 Mg Tab 50 MG PO BID, #60 TAB 2 Refills Multiple Vitamins W/ Minerals (Thera M Plus) 1 Tab 1 TAB PO DAILY for Nutritional Supplement, #30 TAB 1 Refill Pantoprazole (Protonix) 40 Mg Tab 40 MG PO DAILY for Reflux, #90 TAB 3 Refills Thiamine (Vitamin B-1) 100 Mg Tab 100 MG PO DAILY for Nutritional Supplement, TAB 0 Refills Warfarin (Coumadin) 4 Mg Tab 4 MG PO DAILY@16, #30 TAB Discontinued Medications: Aspirin DR (Aspirin EC) 81 Mg Tabdr 81 MG PO DAILY, #30 TAB 1 Refill Prednisone (48) 10 mg tab Dose Pack (Prednisone (48) 10 mg tab Dose Pack) 10 Mg Dspk 10 MG PO DIRECTED for Inflammation, #1 DSPK 0 Refills Spironolactone (Spironolactone) 25 Mg Tab 25 MG PO DAILY, #30 TAB 2 Refills Omar Estes DO Jul 28, 2017 23:05
== END 2017-07-28 16:55 | disposition home health service (06) | DRG 191 ==
LOC: NEPC 18:56 → NEDA 21:35 → NEDH 07-24 02:37 → N05B 07-24 12:26
PROVIDERS: ADMIT Hospitalist; ATTEND Hospitalist
DX: J44.1 Chronic obstructive pulmonary disease with (acute) exacerbation (principal); E87.1 Hypo-osmolality and hyponatremia; E11.51 Type 2 diabetes mellitus with diabetic peripheral angiopathy without gangrene; I50.9 Heart failure, unspecified; Z99.81 Dependence on supplemental oxygen; I48.91 Unspecified atrial fibrillation; I11.0 Hypertensive heart disease with heart failure; E78.5 Hyperlipidemia, unspecified; G62.9 Polyneuropathy, unspecified; F17.210 Nicotine dependence, cigarettes, uncomplicated; M79.89 Other specified soft tissue disorders; M19.90 Unspecified osteoarthritis, unspecified site; E78.00 Pure hypercholesterolemia, unspecified; G47.30 Sleep apnea, unspecified; I25.10 Atherosclerotic heart disease of native coronary artery without angina pectoris; G47.00 Insomnia, unspecified; Z79.899 Other long term (current) drug therapy; Z23 Encounter for immunization; Z79.01 Long term (current) use of anticoagulants; Z79.82 Long term (current) use of aspirin; Z79.84 Long term (current) use of oral hypoglycemic drugs; Z89.512 Acquired absence of left leg below knee; Z99.3 Dependence on wheelchair; Z85.828 Personal history of other malignant neoplasm of skin; Z86.73 Personal history of transient ischemic attack (TIA), and cerebral infarction without residual deficits; Z87.442 Personal history of urinary calculi; Z95.1 Presence of aortocoronary bypass graft; T50.2X5A Adverse effect of carbonic-anhydrase inhibitors, benzothiadiazides and other diuretics, initial encounter
CPT/HCPCS: 36415; 71046; 80048; 80053; 82550; 82948; 83735; 83880; 83930; 83935; 84300; 84484; 85025; 85610; 85730; 90732; 93005; 94640; 94664; 96374; J1815; J1940; J2930; J7512

== ENCOUNTER → 2017-07-23 | Outpatient (CLI) | payer MEDICARE, OTHER ==
[~2017-07-23] MED LIST changes: -ACET1TAB63; -BENA25CA4 PO; -CLOT1CRE6 TOPICAL; -ENOX80P SQ; -HYDR-3366 PO; +HYDR-3516 PO; +HYDR-3583 PO; +PRED10PA2 PO; +PRED20 PO; +SODI1TAB PO
[2017-07-23 15:10] LABS: ALBUMIN 3.5 GM/DL (3.4-5.0); ALKALINE PHOSPHATASE 64 U/L (45-117); ALT (GPT) 18 U/L (12-78); AST (GOT) 16 U/L (15-37); BICARBONATE 26.8 MEQ/L (21.0-32.0); BLOOD UREA NITROGEN 9 MG/DL (7-18); CALCIUM 9.1 MG/DL (8.5-10.1); CHLORIDE 85 MEQ/L (98-107); CREATININE 0.54 MG/DL (0.60-1.30); GLOMERULAR FILTRATION RATE 153 ML/MIN (>89); GLUCOSE,FASTING 134 MG/DL (74-99); TOTAL BILIRUBIN ADULT 0.3 MG/DL (0.2-1.0); TOTAL PROTEIN 7.3 GM/DL (6.4-8.2)
[2017-07-23 15:15] LABS: SODIUM (NA) 118 MEQ/L (136-145)
== END ==
LOC: PLAB 13:57
PROVIDERS: ATTEND Physician Assistant Medical
DX: E87.1 Hypo-osmolality and hyponatremia (principal)
CPT/HCPCS: 36415; 80053

== ENCOUNTER 2017-08-13 03:59 | Inpatient (IN) | payer MEDICARE ==
[2017-08-13] VITALS (20 sets, daily range): BP systolic 79–157; BP diastolic 51–81; PULSE 87–144; RESP 16–45; TEMP 97.8–99.4; O2SAT 93–100
[~2017-08-13] VITALS: Ht 170.2 cm; Wt 89.1 kg
[~2017-08-13 03:59] MED LIST changes: -ASPI81TA23 PO; -FURO1TAB62 PO; -HYDR-3516 PO; +HYDR-3583 PO; -PRED10PA2 PO; +PRED20 PO; +SODI1TAB PO; -SPIR25TA PO
[2017-08-13] MEDS ORDERED: DOPamine 400 MG/250 ML INJ 250 ML ONE (04:13)
[2017-08-13] MEDS ORDERED: NOREPINEPHRINE 4 MG/4 ML AMP ONE (04:13)
[2017-08-13] MEDS ORDERED: NOREPINEPHRINE-DEXTROSE DRIP 250 ML IV PRN (04:15)
[2017-08-13] MEDS ORDERED: PROPOFOL 1000 MG/100 ML INJ 100 ML ONE (04:29)
[2017-08-13 04:41] LABS: AUTOMATED NEUTROPHIL # 5.7 TH/MM3 (1.8-7.7); BASOPHIL % 0.4 % (0.0-2.0); EOSINOPHIL % 0.1 % (0.0-4.0); HEMATOCRIT 31.7 % (39.0-51.0); HEMOGLOBIN 10.3 GM/DL (13.0-17.0); LYMPH % 6.9 % (9.0-44.0); LYMPHOCYTE # 0.5 TH/MM3 (1.0-4.8); MEAN CELL VOLUME 90.8 FL (80.0-100.0); MEAN CORPUSCULAR HEMOGLOBIN 29.6 PG (27.0-34.0); MEAN CORPUSCULAR HGB CONC 32.5 % (32.0-36.0); MEAN PLATELET VOLUME 8.7 FL (7.0-11.0); MONO % 9.1 % (0.0-8.0); MONOCYTE # 0.6 TH/MM3 (0-0.9); NEUT % 83.5 % (16.0-70.0); PLATELET COUNT 183 TH/MM3 (150-450); RED CELL DISTRIBUTION WIDTH 17.4 % (11.6-17.2); WHITE BLOOD COUNT 6.8 TH/MM3 (4.0-11.0)
--- NOTE | 2017-08-13 04:44 | PD ---
HPI Chief Complaint: Respiratory Distress Time Seen by Provider: 04:14 Travel History International Travel<30 days: No Contact w/Intl Traveler<30days: No History of Present Illness HPI 324 aspirin 2 thank you patient 66-year-old male presents emergency department for evaluation of hypoxia. Apparently about 20 minutes prior to EMS being called the patient was acting his normal self, talking on a cell phone at his [place]. When he began not acting right nursing assessed and placed him on 2 L nasal cannula, apparently has a history of COPD as use of i intermittent in her nasal cannula when he needs it. EMS was called and found the patient agonal respirations with sats in the low 80s on arrival. They also reported pink frothy sputum. Patient given his altered mental status and hypoxia was intubated in the field with etomidate and Versed. Patient's initial blood pressure in the field was in the 190s systolic, shortly after intubation it dropped as low as 60 systolic, he was started on dopamine infusion in the field by EMS. On arrival the patient is intubated, he is trying to reach up and extubate himself. He is not following commands initially probably secondary to hypoxia as well as his Versed and etomidate he received prior to intubation. History is significantly limited by the fact that he is intubated. The patient apparently has history of COPD, no documented history of CHF but does have a history of open heart surgery as evidenced by sternotomy scar. PFSH Past Medical History Hx Anticoagulant Therapy: Yes Arthritis: Yes (R hand osteoarthritis) Asthma: Yes Autoimmune Disease: No Anxiety: No Depression: No Heart Rhythm Problems: No Cancer: Yes (R hand skin cancer) Cardiac Catheterization: Yes (CAD) Cardiovascular Problems: Yes High Cholesterol: Yes Chemotherapy: No Chest Pain: Yes (seldom) Congestive Heart Failure: Yes COPD: Yes Cerebrovascular Accident: Yes (TIA) Diabetes: Yes Diminished Hearing: No Endocrine: Yes Gastrointestinal Disorders: Yes GERD: No Genitourinary: Yes Headaches: No Hiatal Hernia: No Hypertension: Yes Immune Disorder: No Implanted Vascular Access Dvce: No Kidney Stones: Yes Musculoskeletal: Yes Neurologic: No Psychiatric: No Reproductive: No Respiratory: Yes Immunizations Current: Yes Migraines: No Radiation Therapy: No Renal Failure: No Seizures: No Sickle Cell Disease: No Sleep Apnea: No Thyroid Disease: No Ulcer: No PNEUMOCCOCAL Vaccine (Year): 1 Past Surgical History Abdominal Surgery: No (Abdominal Aortic Surgery ) AICD: No Arteriovenous Shunt: No Cardiac Surgery: Yes Coronary Artery Bypass Graft: Yes Ear Surgery: No Endocrine Surgery: No Eye Surgery: No Genitourinary Surgery: No Gynecologic Surgery: No Insulin Pump: No Joint Replacement: No Neurologic Surgery: No Oral Surgery: No Pacemaker: No Thoracic Surgery: Yes Other Surgery: Yes (SKIN CANCER REMOVED) Social History Alcohol Use: Yes (daily) Tobacco Use: Yes (A LITTLE MORE THAN ONE PPD) Substance Use: No Allergies-Medications (Allergen,Severity, Reaction): Coded Allergies: cefaclor (Verified Allergy, Intermediate, rash, 06/28/17) Reported Meds & Prescriptions Reported Meds & Active Scripts Active Sodium Chloride 1 Gram Tab 1 Gm PO DAILY Prednisone 20 Mg Tab 20 Mg PO BID Hydrocodone-Acetamin 10-325 mg (Hydrocodone/Acetaminophen) 10 Mg-325 Mg Tablet 1 Tab PO Q6HR PRN Levaquin (Levofloxacin) 750 Mg Tablet 750 Mg PO DAILY Metoprolol Tartrate 50 Mg Tab 50 Mg PO BID Coumadin (Warfarin) 4 Mg Tab 4 Mg PO DAILY@16 Oxygen tank (Oxygen) 1 Ea Tank Liter HANNAH.CANJUNTA.CL CONTINUOUS Oxygen Concentrator Portable Gaseous 2 L/min via Nasal Cannula Continuous For 99 months Atorvastatin (Atorvastatin Calcium) 40 Mg Tab 40 Mg PO HS Protonix (Pantoprazole Sodium) 40 Mg Tab 40 Mg PO DAILY Duoneb (Ipratropium-Albuterol Neb) 0.5-2.5 Mg/3 Ml Neb 1 Ampule NEB Q6HR PRN Glucophage (Metformin HCl) 500 Mg Tab 500 Mg PO BIDPC With meals Ventolin Hfa 18 GM Inh (Albuterol Sulfate) 90 Mcg/Act Aer 2 Puff INH Q4-6H PRN Gabapentin 800 Mg Tab 800 Mg PO TID Symbicort Inh (Budesonide/Formoterol Fumarate) 160-4.5 Mcg/Act Aero 2 Puff INH Q12HR Thera M Plus (Multivitamins/Minerals Therapeutic) 1 Tab 1 Tab PO DAILY Bedside Commode (Device) 1 Mis Mis 1 Ea .ROUTE DIRECTED Walker Rolling/GetGo (Device) 1 Mis Mis 1 Ea .ROUTE DIRECTED Reported Vitamin B-1 (Thiamine HCl) 100 Mg Tab 100 Mg PO DAILY Review of Systems ROS Limitations: Intubated Physical Exam Exam Limitations: Clinical Condition Narrative GENERAL: Well-developed well-nourished, intubated, mechanical ventilation. SKIN: Focused skin assessment warm/dry. HEAD: Atraumatic. Normocephalic. EYES: Pupils equal and round. No scleral icterus. No injection or drainage. ENT: No nasal bleeding or discharge. Mucous membranes pink and moist. NECK: Trachea midline. No JVD. CARDIOVASCULAR: Regular rhythm with tachycardia. No murmur appreciated. RESPIRATORY: No accessory muscle use. Clear to auscultation. Breath sounds equal bilaterally though decreased throughout. GASTROINTESTINAL: Abdomen soft, non-tender, nondistended. Hepatic and splenic margins not palpable. MUSCULOSKELETAL: No obvious deformities. No clubbing. No cyanosis. No edema. Evidence of DKA on the left. Well-healed peer NEUROLOGICAL: Awake and alert, GCS is M6 E3 VT. follows commands in bilateral upper extremities peer Data Data Last Documented VS Vital Signs Date Time Temp Pulse Resp B/P (MAP) Pulse Ox O2 Delivery O2 Flow Rate FiO2 08/13/17 05:00 133 18 106/51 (69) 100 Ventilator 08/13/17 04:08 50 08/13/17 04:00 15.00 08/13/17 04:00 98.9 Orders Orders Norepinephrine Inj (Levophed Inj) (08/13/17 04:13) Dopamine 400 Mg/250 Ml Inj (Dopamine 400 (08/13/17 04:13) Sepsis Workup Initiated (08/13/17 ) Electrocardiogram (08/13/17 04:14) Complete Blood Count With Diff (08/13/17 04:14) Comprehensive Metabolic Panel (08/13/17 04:14) Prothrombin Time / Inr (Pt) (08/13/17 04:14) Act Partial Throm Time (Ptt) (08/13/17 04:14) Lactic Acid Sepsis Protocol (08/13/17 04:14) Magnesium (Mg) (08/13/17 04:14) Phosphorus (Po4) (08/13/17 04:14) Lipase (08/13/17 04:14) Ckmb (Isoenzyme) Profile (08/13/17 04:14) Troponin I (08/13/17 04:14) Urinalysis - C+S If Indicated (08/13/17 04:14) Blood Culture (08/13/17 04:14) Chest, Single Ap (08/13/17 04:14) Blood Glucose (08/13/17 04:14) Ecg Monitoring (08/13/17 04:14) Iv Access Insert/Monitor (08/13/17 04:14) Oximetry (08/13/17 04:14) Oxygen Administration (08/13/17 04:14) Propofol 1000 Mg/100 Ml Inj (Diprivan 10 (08/13/17 04:29) Arterial Blood Gas (Abg) (08/13/17 ) Urinary Catheter Insert/Apply (08/13/17 04:40) Dopamine 800 Mg/500 Ml Inj (Dopamine 800 (08/13/17 04:45) Terbutaline Inj (Brethine Inj) (08/13/17 04:45) Propofol 1000 Mg/100 Ml Inj (Diprivan 10 (08/13/17 04:45) Urine Culture (08/13/17 04:21) Midazolam 100 Mg/100 Ml Inj (Versed Inj) (08/13/17 05:00) Midazolam 50 Mg/50 Ml Inj (Versed Inj) (08/13/17 05:15) Ct Pulmonary Angiogram (08/13/17 ) Admit Order (Ed Use Only) (08/13/17 ) CKMB (08/13/17 04:21) CKMB% (08/13/17 04:21) Labs Laboratory Tests Test 08/13/17 04:21 08/13/17 04:45 White Blood Count 6.8 TH/MM3 Red Blood Count 3.50 MIL/MM3 Hemoglobin 10.3 GM/DL Hematocrit 31.7 % Mean Corpuscular Volume 90.8 FL Mean Corpuscular Hemoglobin 29.6 PG Mean Corpuscular Hemoglobin Concent 32.5 % Red Cell Distribution Width 17.4 % Platelet Count 183 TH/MM3 Mean Platelet Volume 8.7 FL Neutrophils (%) (Auto) 83.5 % Lymphocytes (%) (Auto) 6.9 % Monocytes (%) (Auto) 9.1 % Eosinophils (%) (Auto) 0.1 % Basophils (%) (Auto) 0.4 % Neutrophils # (Auto) 5.7 TH/MM3 Lymphocytes # (Auto) 0.5 TH/MM3 Monocytes # (Auto) 0.6 TH/MM3 Eosinophils # (Auto) 0.0 TH/MM3 Basophils # (Auto) 0.0 TH/MM3 CBC Comment DIFF FINAL Differential Comment Prothrombin Time 10.9 SEC Prothromb Time International Ratio 1.1 RATIO Activated Partial Thromboplast Time 28.8 SEC Urine Color YELLOW Urine Turbidity CLEAR Urine pH 6.0 Urine Specific [place] 1.017 Urine Protein 100 mg/dL Urine Glucose (UA) NEG mg/dL Urine Ketones NEG mg/dL Urine Occult Blood NEG Urine Nitrite NEG Urine Bilirubin NEG Urine Urobilinogen LESS THAN 2.0 MG/DL Urine Leukocyte Esterase NEG Urine RBC LESS THAN 1 /hpf Urine WBC LESS THAN 1 /hpf Urine Squamous Epithelial Cells <1 /hpf Urine Bacteria RARE /hpf Urine Hyaline Casts 3 /lpf Urine Mucus FEW /lpf Microscopic Urinalysis Comment CATH-CULTURE IND Blood Urea Nitrogen 19 MG/DL Creatinine 0.92 MG/DL Random Glucose 203 MG/DL Total Protein 7.1 GM/DL Albumin 2.8 GM/DL Calcium Level 8.7 MG/DL Phosphorus Level 4.6 MG/DL Magnesium Level 1.6 MG/DL Alkaline Phosphatase 144 U/L Aspartate Amino Transf (AST/SGOT) 112 U/L Alanine Aminotransferase (ALT/SGPT) 40 U/L Total Bilirubin 0.5 MG/DL Sodium Level 135 MEQ/L Potassium Level 5.9 MEQ/L Chloride Level 97 MEQ/L Carbon Dioxide Level 34.2 MEQ/L Anion Gap 4 MEQ/L Estimat Glomerular Filtration Rate 83 ML/MIN Total Creatine Kinase 277 U/L Creatine Kinase MB 5.4 NG/ML Troponin I 3.18 NG/ML Lipase 116 U/L Blood Gas Puncture Site RT BRACHIAL Blood Gas Patient Temperature 98.6 Blood Gas HCO3 31 mmol/L Blood Gas Base Excess 4.3 mmol/L Blood Gas Oxygen Saturation 92 % Arterial Blood pH 7.29 Arterial Blood Partial Pressure CO2 66 mmHg Arterial Blood Partial Pressure O2 78 mmHG Arterial Blood Oxygen Content 13.3 Vol % Arterial Blood Carboxyhemoglobin 1.3 % Arterial Blood Methemoglobin 0.5 % Blood Gas Hemoglobin 10.2 G/DL Oxygen Delivery Device VENTILATOR Blood Gas Ventilator Setting Blood Gas Inspired Oxygen 50 % Lactic Acid Level 1.9 mmol/L [facility] Medical Decision Making Medical Screen Exam Complete: Yes Emergency Medical Condition: Yes Differential Diagnosis ACS, IL, PE, CHF exacerbation, hypoxia, hypercapnia, anemia, pneumonia, hypertensive emergency. Narrative Course Patient room to the emergency department, initially hypoxic and hypertensive in the field, he is now saturating well on mechanical ventilation but is become hypotensive. Continuing on dopamine drip, we are titrating both propofol and dopamine cautiously. EKG does show sinus tachycardia but no ST segment changes , his troponin is positive in excess of 3. Clinical concern remains for pulmonary embolism and a CT PE protocol has been ordered. Patient is slowly stabilizing with the above regimen. Fall is not enough to maintain his rash at -1 and Versed was added. Norepinephrine was added as well but this drip has not been needed as of yet. Chest x-ray was actually clear but his lung sounds are significantly diminished and DuoNeb have been ordered. On the positive troponin with pulmonary embolism on the differential the patient has indications for heparinization and will be heparinized. Critical Care Narrative Aggregate critical care time was 35 minutes. Time to perform other separately billable procedures was not included in the critical care time. My time did not include minutes spent treating any other patients simultaneously or on activities that did not directly contribute to the patient's treatment. The services I provided to this patient were to treat and/or prevent clinically significant deterioration that could result in: , disability, organ failure I provided critical care services requiring my management, as noted below: Chart data review, documentation time, medication orders and management, vital sign assessments/reviewing monitor data, ordering and reviewing lab tests, ordering and interpreting/reviewing x-rays and diagnostic studies, care of the patient and discussion of the patient with the admitting physicians. Diagnosis Primary Impression: Acute respiratory failure with hypoxia Additional Impression: NSTEMI (non-ST elevated myocardial infarction) Admitting Information Admitting Physician Requests: Admit Condition: Saúl Forde MD August 13, 2017 04:44
[2017-08-13] MEDS ORDERED: TERBUTALINE INJ 1 MG/ML AMP SQ PRN ×2 (04:45→06:15)
[2017-08-13] MEDS ORDERED: DOPamine 800 MG/500 ML INJ 500 ML IV PRN (04:45)
[2017-08-13 04:51] LABS: BACTERIA, URINE RARE /hpf; BILIRUBIN, URINE NEG (NEG); BLOOD, URINE NEG (NEG); GLUCOSE,URINE NEG (NEG); HYALINE CAST, URINE 3 /lpf (RARE); KETONE, URINE NEG (NEG); MUCUS URINE FEW /lpf (OCC); NITRITE,URINE NEG (NEG); SQUAMOUS EPITHELIAL CELL URINE <1 /hpf (0-5); URINE COLOR YELLOW (YELLW/STRAW); URINE LEUKOCYTE ESTERASE NEG (NEG)
--- NOTE | 2017-08-13 04:58 | RADRPT ---
EXAM DATE/TIME: 08/13/2017 04:28 [facility] COMPARISON: No previous studies available for comparison. INDICATIONS : Post intubation. MEDICAL HISTORY : Cerebrovascular disease. Seizures. Congestive heart failure.Hypertension, Diabetes. SURGICAL HISTORY : CABG Abdominal aortic aneurysm repair.Cholecystectomy. ENCOUNTER: Initial ACUITY: 1 day PAIN SCORE: Non-responsive. LOCATION: Bilateral chest FINDINGS: A single view of the chest demonstrates the lungs are grossly clear. Endotracheal tube in good positi on. Sternal wires just median sternotomy. Healing right eighth rib fracture.. The cardiomediastinal contours are unremarkable. Osseous structures are intact. CONCLUSION: Lungs are grossly clear. ET tube in good position. Abel Cannon MD on August 13, 2017 at 4:56 Board Certified Radiologist. This report was verified electronically.
[2017-08-13] MEDS ORDERED: MIDAZOLAM 100 MG/100 ML INJ 100 ML IV PRN ×2 (05:00→07:00)
[2017-08-13] MEDS: PROPOFOL 1000 MG/100 ML INJ 100 ML IV PRN (05:02)
[2017-08-13 05:09] LABS: ALBUMIN 2.8 GM/DL (3.4-5.0); ALKALINE PHOSPHATASE 144 U/L (45-117); ALT (GPT) 40 U/L (12-78); AST (GOT) 112 U/L (15-37); BICARBONATE 34.2 MEQ/L (21.0-32.0); BLOOD UREA NITROGEN 19 MG/DL (7-18); CALCIUM 8.7 MG/DL (8.5-10.1); CHLORIDE 97 MEQ/L (98-107); CREATININE 0.92 MG/DL (0.60-1.30); GLOMERULAR FILTRATION RATE 83 ML/MIN (>89); GLUCOSE,RANDOM 203 MG/DL (74-106); INTERNATIONAL NORMALIZED RATIO 1.1 RATIO; MAGNESIUM 1.6 MG/DL (1.5-2.5); PHOSPHORUS 4.6 MG/DL (2.5-4.9); PROTHROMBIN TIME - PATIENT 10.9 SEC (9.8-11.6); SODIUM (NA) 135 MEQ/L (136-145); TOTAL BILIRUBIN ADULT 0.5 MG/DL (0.2-1.0); TOTAL PROTEIN 7.1 GM/DL (6.4-8.2)
[2017-08-13 05:11] LABS: TROPONIN I 3.18 NG/ML (0.02-0.05)
[2017-08-13] MEDS ORDERED: HEPARIN SODIUM - IV 10,000 UNITS/10 ML VIAL IV ONE (05:15)
[2017-08-13] MEDS ORDERED: MIDAZOLAM 50 MG/NS 50 ML DRIP Premix IV PRN (05:15)
[2017-08-13] MEDS ORDERED: MIDAZOLAM 50 MG/50 ML INJ 50 ML IV ONE (05:23)
[2017-08-13] MEDS ORDERED: methylPREDNISolone SOD SUCC 125 MG/2 ML VIAL IV PUSH ONE (05:30)
[2017-08-13] MEDS ORDERED: NOREPINEPHRINE 4 MG/D5W 250 ML IV PRN (05:30)
[2017-08-13] MEDS ORDERED: GLUCAGON 1 MG/ML VIAL OTHER PRN (05:30)
[2017-08-13] MEDS ORDERED: SODIUM CHLOR 0.9% 1000 ML INJ 1,000 ML IV ONE (05:30)
[2017-08-13] MEDS ORDERED: fentaNYL DRIP 250 ML IV PRN (05:30)
[2017-08-13] MEDS: RESP: ALBUTEROL 2.5 MG/IPRATROPIUM 0.5 MG NEB (SCH) NEB ×7 (05:35→23:55)
[2017-08-13] MEDS: HEPARIN-D5W 25,000 U/250 ML 250 ML IV PRN (05:40)
[2017-08-13] MEDS ORDERED: SODIUM CHLORIDE FLUSH PRN IV FLUSH (05:45)
[2017-08-13] MEDS: MIDAZOLAM HCL 2 MG/2 ML VIAL IV PUSH PRN ×2 (05:47→06:18)
[2017-08-13] MEDS: INSULIN ASPART SUPPLEMENTAL SCALE SQ SCH ×4 (05:49→23:44)
[2017-08-13] MEDS ORDERED: SODIUM CHLORIDE 0.9% FLUSH 10 ML FLUSH IV FLUSH PRN (07:00)
[2017-08-13] MEDS ORDERED: NURSING INFORMATION XX SCH (07:00)
[2017-08-13] MEDS ORDERED: CHLORHEXIDINE GLUCONATE 2 % 1 PACK (2 CLOTHS) TOP PRN (07:00)
[2017-08-13] MEDS ORDERED: IOHEXOL 350 MG/ML 10 ML VIAL (for RAD DIAG) IVCONTRAST ONE (07:39)
--- NOTE | 2017-08-13 07:57 | RADRPT ---
EXAM DATE/TIME: 08/13/2017 07:25 [facility] COMPARISON: CT PULMONARY ANGIOGRAM, August 14, 2014, 14:30. INDICATIONS : Respiratory distress. IV CONTRAST: 75 cc Omnipaque 350 (iohexol) IV RADIATION DOSE: 9.96 CTDIvol (mGy) MEDICAL HISTORY : Chronic obstructive pulmonary disease. Hypertension. Cardiovascular disease SURGICAL HISTORY : CABG Abdominal aortic aneurysm repair.Cholecystectomy. ENCOUNTER: Initial ACUITY: 1 day PAIN SCALE: Non-responsive LOCATION: chest TECHNIQUE: Volumetric scanning of the chest was performed using a pulmonary embolism protocol MIP images were re constructed. Using automated exposure control and adjustment of the mA and/or kV according to patien t size, radiation dose was kept as low as reasonably achievable to obtain optimal diagnostic quality images. DICOM format image data is available electronically for review and comparison. Follow-up recommendations for detected pulmonary nodules are based at a minimum on nodule size and pa tient risk factors according to Fleischner Society Guidelines. FINDINGS: PULMONARY ARTERIES: No filling defects are seen in the pulmonary arteries through the segmental level. LUNGS: Moderate to severe upper lobe predominant centrilobular emphysema. Patchy groundglass opacities and m ild bronchiectasis at the lung bases. Ill-defined 6 mm groundglass nodule in the left lung base 4 mm solid nodule in the inferior right middle lobe. 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 PLEURAE: There is no pleural thickening or pleural effusion. MEDIASTINUM: Postsurgical features of prior median sternotomy. Extensive coronary artery calcifications. Heart is grossly unremarkable. Scattered atherosclerotic calcifications of the thoracic aorta which is normal in caliber. MUSCULOSKELETAL: Healed right-sided rib fractures. Degenerative spondylosis of the lumbar spine. MISCELLANEOUS: Is less portions of the upper abdomen demonstrate an NG tube in the stomach. CONCLUSION: 1. No CT evidence for pulmonary embolism as questioned. 2. Moderate to severe upper lobe predominant centrilobular emphysema. 3. Patchy bibasilar groundglass opacities likely reflecting atelectasis although differential conside rations include aspiration. 4. Multiple 4-6mm bilateral groundglass and solid nodules, likely infectious/inflammatory. Recommend followup CT examination in approximately 6 months per 2017 Fleischner criteria (6mm nodule). Steve Barajas MD on August 13, 2017 at 7:48 Board Certified Radiologist. This report was verified electronically.
[2017-08-13] MEDS: CHLORHEXIDINE 0.12% (ORAL KIT) 15 ML CUP MT SCH ×2 (08:00→21:33)
--- NOTE | 2017-08-13 08:53 | MB ---
cc: Rich Gary MD DATE: 08/13/2017 REASON FOR CONSULTATION: Abnormal troponin level. HISTORY OF PRESENT ILLNESS: History is unobtainable from the patient who is intubated and sedated. He is a 66-year-old white male with a history of multiple medical problems including coronary artery disease, COPD, diabetes, hypertension, paroxysmal atrial fibrillation, peripheral vascular disease, resolved cardiomyopathy who apparently called the emergency services due to increasing shortness of breath. Due to severe respiratory distress out in the field, he was intubated and placed on mechanical ventilation. The patient has had fluctuating blood pressures since admission, intermittently necessitating dopamine pressor support. PAST MEDICAL HISTORY: 1. History of probably nonischemic cardiomyopathy with cardiac catheterization 08/04/2014 showing ejection fraction of 25%, although with widely patent bypass grafts. His ejection fraction was 60% on a 01/20/2015 echo. 2. History of acalculous cholecystitis, status post biliary drain placement and subsequent cholecystectomy. 3. Severe chronic obstructive pulmonary disease. 4. Coronary artery disease status post bypass surgery 03/30/2014 with a left internal mammary artery to the LAD, vein graft to the obtuse marginal, vein graft to the posterior descending artery. The patient had a suspected ST elevation myocardial infarction 08/04/2014 with cardiac catheterization showing all of his bypass grafts to be patent, normal left main, 60-70% proximal LAD, 80% mid LAD, diffuse 90% mid left circumflex disease, 90% ostial second obtuse marginal, total occluded mid right coronary artery, ejection fraction 25%. 5. Diabetes. 6. Hyperlipidemia. 7. Hypertension. 8. Paroxysmal atrial fibrillation. 9. Peripheral vascular disease, status post left external iliac stent, bilateral femoral endarterectomies, bilateral profundoplasty, femorofemoral and aortobifemoral bypasses 05/07/2014, status post left femoral-anterior tibial bypass and amputation of the left first and second toes 04/25/2016, status post left below the knee amputation 05/01/2016. CARDIAC MEDICATIONS AT HOME FROM OUR OFFICE NOTES: 1. Atorvastatin 40 mg at bedtime. 2. Furosemide 20 mg daily. 3. Lisinopril 10 mg daily. 4. Metoprolol 50 mg b.i.d. 5. Spironolactone 25 mg daily. 6. Warfarin taken as directed. ALLERGIES: CECLOR. FAMILY HISTORY: Noncontributory. SOCIAL HISTORY: This patient smokes a pack of cigarettes per day. There is no history of alcohol abuse. REVIEW OF SYSTEMS: Currently unobtainable. PHYSICAL EXAMINATION: VITAL SIGNS: Blood pressure 133/74 with a pulse of 120, respirations 18. GENERAL: He is a well-developed, well-nourished white male, currently intubated and sedated. NECK: Jugular venous pressure is hard to assess. It appears to be normal. Carotid pulses are 2+ bilaterally and without bruits. CHEST: Clear lung mays anteriorly. HEART: He has a tachycardic, regular rhythm without definite S3, S4 or murmur. ABDOMEN: He has a soft abdomen, bowel sounds are present. There is no definite hepatosplenomegaly. EXTREMITIES: No clubbing, cyanosis or edema on the right. On the left, he is status post left below the knee amputation. LABORATORY DATA: Includes WBC 6.8, hemoglobin 10.3, platelets 183. Potassium 5.9, BUN 19, creatinine 0.92, AST 112, ALT 40. CK 277 with 5.4 CK-MB. Troponin 3.18. IMAGING STUDIES: Chest x-ray shows no acute disease. IMPRESSION: Abnormal troponin level in this 66-year-old white male with a history of multiple medical problems including resolved cardiomyopathy, chronic obstructive pulmonary disease, coronary artery disease, diabetes, hypertension, paroxysmal atrial fibrillation, peripheral vascular disease, now admitted with acute on chronic respiratory failure. History unfortunately is not obtainable from the patient who is intubated and sedated. It is unclear whether he has had recent chest pains. The abnormal troponin level may be on the basis of "demand ischemia". EKG is currently unavailable and not scanned into the computer. Reportedly, it shows no acute ST segment or T-wave changes. CT angiogram of the chest reportedly is negative for pulmonary embolism. There is no definite evidence for acute congestive heart failure. RECOMMENDATIONS: 1. Check a 2-D echo to reassess his left ventricular function. 2. With his labile blood pressures, would hold off on beta allyn and JOSEFINA inhibitor therapy. 3. Continue heparin drip. 4. Daily aspirin. 5. Await subsequent cardiac enzymes. MD CLEVELAND Walters/XAVIER , 08:30 AM , 08:52 AM VENKAT
[2017-08-13] MEDS: SODIUM CHLORIDE FLUSH BID IV FLUSH SCH ×2 (09:09→21:34)
[2017-08-13] MEDS: SODIUM CHLORIDE 0.9% FLUSH 10 ML FLUSH IV FLUSH SCH ×2 (09:09→21:33)
[2017-08-13] MEDS: SODIUM CHLOR 0.9% 1000 ML INJ 1,000 ML IV SCH ×3 (09:09→21:53)
[2017-08-13] MEDS: FAMOTIDINE 20 MG TAB TUBE SCH ×2 (09:09→21:34)
[2017-08-13] MEDS: fentaNYL DRIP 250 ML IV PRN (09:44)
[2017-08-13] MEDS: DOPamine 400 MG/250 ML PREMIX IV PRN (09:44)
[2017-08-13] MEDS: ASPIRIN 81 MG CHEW TAB CHEW SCH (10:18)
--- NOTE | 2017-08-13 10:52 | EKG ---
Date Performed: 08/13/2017 Time Performed: 04:21:38 PTAGE: 66 years EKG: SINUS TACHYCARDIA INDETERMINATE AXIS LOW QRS VOLTAGE IN EXTREMITY LEADS RIGHT BUNDLE BRANCH BLOCK ANTERIOR MYOCARDIAL INFARCTION ABNORMAL ECG INTERPRETATION BASED ON A DEFAULT AGE OF 40 YEARS NO PREVIOUS TRACING DOCTOR: Abel Burton Interpretating Date/Time 08/13/2017 10:51:56
[2017-08-13] MEDS ORDERED: Vancomycin Consult Pharmacy 1 EA OTHER SCH (11:30)
[2017-08-13] MEDS ORDERED: VANCOMYCIN INJ 1,200 MG in SODIUM CHLOR 0.9% 250 ML INJ 250 ML IV SCH (11:30)
[2017-08-13] MEDS: methylPREDNISolone SOD SUCC 40 MG/1 ML VIAL IV PUSH SCH ×2 (13:04→21:34)
[2017-08-13] MEDS: AZTREONAM INJ 1,000 MG in SODIUM CHLORIDE 0.9% INJ 100 ML IV SCH ×2 (13:04→21:33)
[2017-08-13] MEDS: metroNIDAZOLE 500 MG TAB OG-TUBE SCH ×2 (13:10→21:34)
[2017-08-13 14:15] LABS: TROPONIN I 2.26 NG/ML (0.02-0.05)
--- NOTE | 2017-08-13 14:37 | HHI.HP ---
HPI Service Critical Care Medicine Primary Care Physician Unknown Admission Diagnosis Hypoxic Respiratory Failure. Diagnosis: Chief Complaint: Shortness of breath Travel History International Travel<30 Days: No Contact w/Intl Traveler <30 Da: No Traveled to Known Affected Are: No History of Present Illness HPI 66-year-old male who was brought to the ER after he developed shortness of breath and altered mental status. At skilled nursing he was placed on nasal cannula 2 L because of his history of COPD as he uses it off and on. EMS was called when patient developed agonal respirations with O2 sats in the low 80s on their arrival with pink frothy sputum. Patient was intubated in the field after receiving etomidate and Versed. His systolic blood pressure was 190s following intubation and dropped to the 60 systolic range and he was started on dopamine in the field by EMS. He was brought to the ER at [place] and noted to have elevated troponin on his admitting labs. He was accepted for admission by critical care medicine service. He underwent a CT chest to evaluate for PE which was negative for PE however did show severe emphysematous changes with groundglass opacities. History is significantly limited by the fact that he is intubated. When I evaluated the patient he was sedated, orally intubated on mechanical ventilation. History was obtained by reviewing records. Review of systems: Unobtainable as patient is sedated, orally intubated on mechanical ventilation. PAST MEDICAL HISTORY: 1. History of probably nonischemic cardiomyopathy with cardiac catheterization 08/04/2014 showing ejection fraction of 25%, although with widely patent bypass grafts. His ejection fraction was 60% on a 01/20/2015 echo. 2. History of acalculous cholecystitis, status post biliary drain placement and subsequent cholecystectomy. 3. Severe chronic obstructive pulmonary disease. 4. Coronary artery disease status post bypass surgery 03/30/2014 with a left internal mammary artery to the LAD, vein graft to the obtuse marginal, vein graft to the posterior descending artery. The patient had a suspected ST elevation myocardial infarction 08/04/2014 with cardiac catheterization showing all of his bypass grafts to be patent, normal left main, 60-70% proximal LAD, 80% mid LAD, diffuse 90% mid left circumflex disease, 90% ostial second obtuse marginal, total occluded mid right coronary artery, ejection fraction 25%. 5. Diabetes. 6. Hyperlipidemia. 7. Hypertension. 8. Paroxysmal atrial fibrillation. 9. Peripheral vascular disease, status post left external iliac stent, bilateral femoral endarterectomies, bilateral profundoplasty, femorofemoral and aortobifemoral bypasses 05/07/2014, status post left femoral-anterior tibial bypass and amputation of the left first and second toes 04/25/2016, status post left below the knee amputation 05/01/2016. CARDIAC MEDICATIONS AT HOME : 1. Atorvastatin 40 mg at bedtime. 2. Furosemide 20 mg daily. 3. Lisinopril 10 mg daily. 4. Metoprolol 50 mg b.i.d. 5. Spironolactone 25 mg daily. 6. Warfarin taken as directed. ALLERGIES: CECLOR. FAMILY HISTORY: Noncontributory. SOCIAL HISTORY: This patient smokes a pack of cigarettes per day. There is no history of alcohol abuse. Physical Exam Vital Signs Vital Signs Date Time Temp Pulse Resp B/P (MAP) Pulse Ox O2 Delivery O2 Flow Rate FiO2 08/13/17 12:19 101 115/67 08/13/17 11:54 97 40 08/13/17 10:00 110 08/13/17 09:44 109 109/62 08/13/17 08:29 99 40 08/13/17 08:00 105 08/13/17 08:00 50 08/13/17 08:00 98.7 105 45 79/51 (60) 93 08/13/17 07:58 119 18 133/74 (93) 98 Ventilator 50 08/13/17 07:10 100 100 08/13/17 06:15 45 08/13/17 06:00 144 18 157/80 (105) 100 Ventilator 08/13/17 05:10 98 50 08/13/17 05:00 133 18 106/51 (69) 100 Ventilator 08/13/17 04:55 113 64/64 08/13/17 04:08 100 50 08/13/17 04:00 Ventilator 15.00 08/13/17 04:00 98.9 121 16 08/13/17 04:00 121 16 Bag Valve 15.00 Physical Exam HEENT/ Neuro: Sedated, orally intubated, Pallor present, no icterus, tongue/ mucosa dry Neck: No JVD Chest/Pulm: on mech vent, decreased air entry bilaterally, no wheezing or crackles CVS: S1-S2 regular, no murmur GI/abdomen: soft, nontender, bowel sounds sluggish Extremities: warm bilaterally, no edema. Left lower extremity status post BKA noted Laboratory Laboratory Tests Test 08/13/17 04:21 08/13/17 04:45 08/13/17 08:15 08/13/17 12:55 White Blood Count 6.8 Red Blood Count 3.50 Hemoglobin 10.3 Hematocrit 31.7 Mean Corpuscular Volume 90.8 Mean Corpuscular Hemoglobin 29.6 Mean Corpuscular Hemoglobin Concent 32.5 Red Cell Distribution Width 17.4 Platelet Count 183 Mean Platelet Volume 8.7 Neutrophils (%) (Auto) 83.5 Lymphocytes (%) (Auto) 6.9 Monocytes (%) (Auto) 9.1 Eosinophils (%) (Auto) 0.1 Basophils (%) (Auto) 0.4 Neutrophils # (Auto) 5.7 Lymphocytes # (Auto) 0.5 Monocytes # (Auto) 0.6 Eosinophils # (Auto) 0.0 Basophils # (Auto) 0.0 CBC Comment DIFF FINAL Differential Comment Prothrombin Time 10.9 Prothromb Time International Ratio 1.1 Activated Partial Thromboplast Time 28.8 GREATER THAN 277.5 Urine Color YELLOW Urine Turbidity CLEAR Urine pH 6.0 Urine Specific Harper 1.017 Urine Protein 100 Urine Glucose (UA) NEG Urine Ketones NEG Urine Occult Blood NEG Urine Nitrite NEG Urine Bilirubin NEG Urine Urobilinogen LESS THAN 2.0 Urine Leukocyte Esterase NEG Urine RBC LESS THAN 1 Urine WBC LESS THAN 1 Urine Squamous Epithelial Cells <1 Urine Bacteria RARE Urine Hyaline Casts 3 Urine Mucus FEW Microscopic Urinalysis Comment CATH-CULTURE IND Blood Urea Nitrogen 19 Creatinine 0.92 Random Glucose 203 Total Protein 7.1 Albumin 2.8 Calcium Level 8.7 Phosphorus Level 4.6 Magnesium Level 1.6 Alkaline Phosphatase 144 Aspartate Amino Transf (AST/SGOT) 112 Alanine Aminotransferase (ALT/SGPT) 40 Total Bilirubin 0.5 Sodium Level 135 Potassium Level 5.9 Chloride Level 97 Carbon Dioxide Level 34.2 Anion Gap 4 Estimat Glomerular Filtration Rate 83 Total Creatine Kinase 277 310 Creatine Kinase MB 5.4 Troponin I 3.18 2.26 Lipase 116 Blood Gas Puncture Site RT BRACHIAL Blood Gas Patient Temperature 98.6 Blood Gas HCO3 31 Blood Gas Base Excess 4.3 Blood Gas Oxygen Saturation 92 Arterial Blood pH 7.29 Arterial Blood Partial Pressure CO2 66 Arterial Blood Partial Pressure O2 78 Arterial Blood Oxygen Content 13.3 Arterial Blood Carboxyhemoglobin 1.3 Arterial Blood Methemoglobin 0.5 Blood Gas Hemoglobin 10.2 Oxygen Delivery Device VENTILATOR Blood Gas Ventilator Setting Blood Gas Inspired Oxygen 50 Lactic Acid Level 1.9 Nasal Screen MRSA (PCR) MRSA NOT DETECTED Date/Time Source Procedure Growth Status 08/13/17 04:26 Blood Peripheral Aerobic Blood Culture Pending Received 08/13/17 04:26 Blood Peripheral Anaerobic Blood Culture Pending Received 08/13/17 05:45 Sputum Endotracheal Gram Stain - Final Resulted 08/13/17 05:45 Sputum Endotracheal Sputum Culture Pending Resulted 08/13/17 04:21 Urine Catheterized Urine Urine Culture Pending Received Result Diagram: 08/13/17 0421 08/13/17 0421 Imaging Last Impressions Chest X-Ray 08/13/17 0414 Signed Impressions: Service Date/Time: Sunday, August 13, 2017 04:28 - CONCLUSION: Lungs are grossly clear. ET tube in good position. Abel Cannon MD CT Angiography 08/13/17 0000 Signed Impressions: Service Date/Time: Sunday, August 13, 2017 07:25 - CONCLUSION: 1. No CT evidence for pulmonary embolism as questioned. 2. Moderate to severe upper lobe predominant centrilobular emphysema. 3. Patchy bibasilar groundglass opacities likely reflecting atelectasis although differential considerations include aspiration. 4. Multiple 4-6mm bilateral groundglass and solid nodules, likely infectious/inflammatory. Recommend followup CT examination in approximately 6 months per 2017 Fleischner criteria (6mm nodule). MD Abdirizak Lasti VTE Risk Assessment Caprini VTE Risk Assessment: Mod/High Risk (score >= 2) Caprini Risk Assessment Model Point Value = 1 Point Value = 2 Point Value = 3 Point Value = 5 Age 41-60 Minor surgery BMI > 25 kg/m2 Swollen legs Varicose veins or History of unexplained or recurrent spontaneous Oral contraceptives or hormone replacement Sepsis (< 1 month) Serious lung disease, including pneumonia (< 1 month) Abnormal pulmonary function Acute myocardial infarction Congestive heart failure (< 1 month) History of inflammatory bowel disease Medical patient at bed rest Age 61-74 Arthroscopic surgery Major open surgery (> 45 min) Laparoscopic surgery (> 45 min) Malignancy Confined to bed (> 72 hours) Immobilizing plaster cast Central venous access Age >= 75 History of VTE Family history of VTE Factor V Leiden Prothrombin [id number] Lupus anticoagulant Anticardiolipin antibodies Elevated serum homocysteine Heparin-induced thrombocytopenia Other congenital or acquired thrombophilia Stroke (< 1 month) Elective arthroplasty Hip, pelvis, or leg fracture Acute spinal cord injury (< 1 month) Prophylaxis Regimen Total Risk Factor Score Risk Level Prophylaxis Regimen 0-1 Low Early ambulation 2 Moderate Order ONE of the following: *Sequential Compression Device (SCD) *Heparin 5000 units SQ BID 3-4 Higher Order ONE of the following medications: *Heparin 5000 units SQ TID *Enoxaparin/Lovenox 40 mg SQ daily (WT < 150 kg, CrCl > 30 mL/min) *Enoxaparin/Lovenox 30 mg SQ daily (WT < 150 kg, CrCl > 10-29 mL/min) *Enoxaparin/Lovenox 30 mg SQ BID (WT < 150 kg, CrCl > 30 mL/min) AND/OR *Sequential Compression Device (SCD) 5 or more Highest Order ONE of the following medications: *Heparin 5000 units SQ TID (Preferred with Epidurals) *Enoxaparin/Lovenox 40 mg SQ daily (WT < 150 kg, CrCl > 30 mL/min) *Enoxaparin/Lovenox 30 mg SQ daily (WT < 150 kg, CrCl > 10-29 mL/min) *Enoxaparin/Lovenox 30 mg SQ BID (WT < 150 kg, CrCl > 30 mL/min) AND *Sequential Compression Device (SCD) Assessment and Plan Assessment and Plan Acute on chronic respiratory failure on mechanical ventilation COPD exacerbation Advanced COPD CAD History of cardiomyopathy Elevated troponin with suspected NSTEMI Diabetes. Hyperlipidemia. Hypertension. Paroxysmal atrial fibrillation. Peripheral vascular disease Plan: Neuro: Sedation with Versed/fentanyl GTD. Daily sedation vacation. Follow neuro status. Cardiovascular: Hold antihypertensives in view of hypotension earlier. Will use labetalol as needed for hypertension. INR subtherapeutic the patient is on Coumadin at home. Started on heparin for full anticoagulation. Aspirin. Cardiology consulted. 2D echo pending. Follow cardiac enzymes. Pulmonary: Continue mechanical ventilation, vent bundle, bronchodilators as needed. Daily CPAP trials starting tomorrow to decide extubation. IV Solu- Medrol. GI/liver: N.p.o. for now. Start tube feeds tomorrow if not extubated and advance to goal as tolerated. Renal/: Normal saline at 75 cc/h initiated. Strict intake output, monitor and replete electrodes, follow BUN/creatinine. If 2D echo showed a severely depressed LV function will consider diuretics. ID: Pancultures ordered. Empiric antibiotic coverage with IV aztreonam/ vancomycin, p.o. Flagyl. Endocrine: Watch for hypoglycemia, SSI for glycemic control if needed. Heme: Follow CBC and coags. On full anticoagulation with heparin. Prophylaxis: Pepcid/SCDs. Full anti-coagulation with heparin. Condition critical Time spent on critical care excluding procedures 60 minutes Lester Crawford MD August 13, 2017 14:37
[2017-08-13] MEDS ORDERED: SODIUM POLYSTYRENE SULFONATE SUSP 15 GM/60 ML CUP PO ONE (15:00)
[2017-08-13] MEDS: VANCOMYCIN INJ 1,750 MG in SODIUM CHLORID 0.9% 500 ML INJ 500 ML IV SCH (15:22)
[2017-08-13 22:05] LABS: BICARBONATE 28.2 MEQ/L (21.0-32.0); CALCIUM 8.3 MG/DL (8.5-10.1); CREATININE 0.58 MG/DL (0.60-1.30)
[2017-08-13 22:14] LABS: TROPONIN I 1.5 NG/ML (0.02-0.05)
[2017-08-14] VITALS (16 sets, daily range): BP systolic 116–151; BP diastolic 69–84; PULSE 67–101; RESP 17–24; TEMP 97.3–98.1; O2SAT 95–98
[2017-08-14] MEDS: MIDAZOLAM 50 MG/NS 50 ML DRIP Premix IV PRN ×2 (00:34→15:49)
[2017-08-14] MEDS: HEPARIN-D5W 25,000 U/250 ML 250 ML IV PRN ×2 (00:43→21:57)
[2017-08-14 03:21] LABS: AUTOMATED NEUTROPHIL # 5.8 TH/MM3 (1.8-7.7); BASOPHIL % 0.1 % (0.0-2.0); EOSINOPHIL % 0.1 % (0.0-4.0); HEMATOCRIT 28.7 % (39.0-51.0); HEMOGLOBIN 9.4 GM/DL (13.0-17.0); LYMPH % 7.1 % (9.0-44.0); LYMPHOCYTE # 0.5 TH/MM3 (1.0-4.8); MEAN CELL VOLUME 90.5 FL (80.0-100.0); MEAN CORPUSCULAR HEMOGLOBIN 29.5 PG (27.0-34.0); MEAN CORPUSCULAR HGB CONC 32.6 % (32.0-36.0); MEAN PLATELET VOLUME 8.3 FL (7.0-11.0); MONO % 9.8 % (0.0-8.0); MONOCYTE # 0.7 TH/MM3 (0-0.9); NEUT % 82.9 % (16.0-70.0); PLATELET COUNT 156 TH/MM3 (150-450); RED BLOOD COUNT 3.17 MIL/MM3 (4.50-5.90); RED CELL DISTRIBUTION WIDTH 17.5 % (11.6-17.2)
[2017-08-14] MEDS: AZTREONAM INJ 1,000 MG in SODIUM CHLORIDE 0.9% INJ 100 ML IV SCH ×3 (03:33→20:02)
[2017-08-14 03:47] LABS: ALBUMIN 2.3 GM/DL (3.4-5.0); ALT (GPT) 34 U/L (12-78); AST (GOT) 65 U/L (15-37); BICARBONATE 30.5 MEQ/L (21.0-32.0); BLOOD UREA NITROGEN 17 MG/DL (7-18); CALCIUM 7.8 MG/DL (8.5-10.1); CHLORIDE 105 MEQ/L (98-107); CREATININE 0.56 MG/DL (0.60-1.30); GLOMERULAR FILTRATION RATE 146 ML/MIN (>89); GLUCOSE,RANDOM 211 MG/DL (74-106); SODIUM (NA) 142 MEQ/L (136-145)
[2017-08-14 03:50] LABS: ALKALINE PHOSPHATASE 98 U/L (45-117); TOTAL BILIRUBIN ADULT 0.3 MG/DL (0.2-1.0); TOTAL PROTEIN 5.9 GM/DL (6.4-8.2)
[2017-08-14] MEDS: CHLORHEXIDINE GLUCONATE 2 % 1 PACK (2 CLOTHS) TOP SCH ×2 (04:00→21:38)
[2017-08-14] MEDS ORDERED: POTASSIUM PHOSPHATE MONOBASIC 500 MG TAB PO PRN (04:15)
[2017-08-14] MEDS ORDERED: SODIUM PHOSPHATE INJ 30 MMOL in SODIUM CHLOR 0.9% 250 ML INJ 240 ML IV PRN (04:15)
[2017-08-14] MEDS ORDERED: MAGNESIUM SULFATE INJ 2 GM in SODIUM CHLORIDE 0.9% INJ 96 ML IV PRN (04:15)
[2017-08-14] MEDS ORDERED: POTASSIUM CHLOR 40 MEQ PREMIX 100 ML IV PRN ×2 (04:15)
[2017-08-14] MEDS ORDERED: POTASSIUM PHOSPHATE MONOBASIC 500 MG TAB PO/TUBE PRN (04:15)
[2017-08-14] MEDS ORDERED: MAGNESIUM SULFATE INJ 4 GM in SODIUM CHLORIDE 0.9% INJ 92 ML IV PRN (04:15)
[2017-08-14] MEDS ORDERED: POTASSIUM CHLORIDE 25 MEQ EFFERVESCENT TAB PO PRN (04:15)
[2017-08-14] MEDS ORDERED: MAGNESIUM OXIDE 400 MG TAB PO PRN (04:15)
[2017-08-14] MEDS ORDERED: POTASSIUM PHOSPHATE INJ 30 MMOL in SODIUM CHLOR 0.9% 250 ML INJ 250 ML IV PRN (04:15)
[2017-08-14] MEDS: RESP: ALBUTEROL 2.5 MG/IPRATROPIUM 0.5 MG NEB (SCH) NEB ×5 (04:18→19:33)
[2017-08-14 04:50] LABS: MAGNESIUM 1.5 MG/DL (1.5-2.5); PHOSPHORUS 3.1 MG/DL (2.5-4.9)
[2017-08-14] MEDS: INSULIN ASPART SUPPLEMENTAL SCALE SQ SCH ×4 (05:30→22:51)
[2017-08-14] MEDS: metroNIDAZOLE 500 MG TAB OG-TUBE SCH ×3 (06:02→20:52)
[2017-08-14] MEDS: methylPREDNISolone SOD SUCC 40 MG/1 ML VIAL IV PUSH SCH ×3 (06:02→20:52)
--- NOTE | 2017-08-14 07:35 | PD.CARD.PN ---
Subjective Subjective Remarks Intubated. Sedated. Objective Medications Item Value Date Time Aspirin 81 mg 08/13/17 0900 (Aspirin Chew) DAILY/CHEW 08/13/17 1018 Heparin Sodium/ 250 ml @ 16 mls/hr 08/13/17 0515 Dextrose TITRATE PRN/IV 08/14/17 0043 Current Medications Medications (Trade) Dose Ordered Sig/Lindsey Route Start Time Stop Time Status Last Admin Propofol 100 ml @ 0 mls/hr TITRATE PRN IV 08/13/17 04:45 08/13/17 05:02 Heparin Sodium/ Dextrose 250 ml @ 16 mls/hr TITRATE PRN IV 08/13/17 05:15 08/14/17 00:43 Norepinephrine Bitartrate 250 ml @ 7.5 mls/hr TITRATE PRN IV 08/13/17 05:30 (Versed Inj) 2 mg Q10M PRN IV PUSH 08/13/17 05:30 08/13/17 06:18 (D50w (Vial) Inj) 50 ml UNSCH PRN IV PUSH 08/13/17 05:30 (Glucagon Inj) 1 mg UNSCH PRN OTHER 08/13/17 05:30 (NovoLOG SUPPLEMENTAL SCALE) 1 Q6H SQ 08/13/17 05:30 08/13/17 23:44 Dopamine HCl/ Dextrose 250 ml @ 10.125 mls/ hr TITRATE PRN IV 08/13/17 06:15 08/13/17 09:44 (Brethine Inj) 1 mg UNSCH PRN SQ 08/13/17 06:15 Sodium Chloride 1,000 ml @ 75 mls/hr [id number] IV 08/13/17 08:00 08/13/17 21:35 (NS Flush) 2 ml UNSCH PRN IV FLUSH 08/13/17 07:00 (NS Flush) 2 ml BID IV FLUSH 08/13/17 09:00 08/13/17 21:33 (Tylenol) 650 mg Q6H PRN PO 08/13/17 07:00 (Duoneb Neb) 1 ampule Q4HR NEB NEB 08/13/17 08:00 08/14/17 04:18 (Duoneb Neb) 1 ampule Q4HR NEB PRN INH 08/13/17 07:00 (Peridex 0.12% Liq) 15 ml BID@08,20 MT 08/13/17 08:00 08/13/17 21:33 (Pepcid) 20 mg BID TUBE 08/13/17 09:00 08/13/17 21:34 ([facility] [place] [facility] [place] 1 Q361D XX 08/13/17 07:00 08/13/17 07:00 (Chlorhexidine 2% Cloth) 3 pack Taper DAILY@04 TOP 08/14/17 04:00 08/10/18 03:59 08/14/17 04:00 (Chlorhexidine 2% Cloth) 3 pack UNSCH PRN TOP 08/13/17 07:00 Fentanyl Citrate 250 ml @ 5 mls/hr TITRATE PRN IV 08/13/17 07:00 08/13/17 09:44 (SoluMEDROL INJ) 80 mg Q8HR IV PUSH 08/13/17 14:00 08/14/17 06:02 (Aspirin Chew) 81 mg DAILY CHEW 08/13/17 09:00 08/13/17 10:18 Aztreonam 1000 mg/ Sodium Chloride 100 ml @ 200 mls/hr Q8H IV 08/13/17 12:00 08/14/17 03:33 Pharmacy Profile Note 0 ml @ 0 mls/hr UNSCH OTHER 08/13/17 11:30 (Flagyl) 500 mg Q8HR OG-TUBE 08/13/17 14:00 08/14/17 06:02 Vancomycin HCl 1750 mg/Sodium Chloride 517.5 ml @ 250 mls/hr Q18H IV 08/13/17 14:00 08/13/17 15:22 ([facility] [place] [facility] [place] [facility] Ordered Lab Info) SPECIFIC LAB TO BE DRAWN:VANCOMYCIN TROUGH DATE TO... ONCE ONCE .XX 08/16/17 13:45 08/16/17 13:46 Midazolam HCl 50 ml @ 2 mls/hr TITRATE PRN IV 08/14/17 00:30 08/14/17 00:34 Potassium Chloride 100 ml @ 50 mls/hr Q2H PRN IV 08/14/17 04:15 Potassium Chloride 100 ml @ 50 mls/hr Q2H PRN IV 08/14/17 04:15 (K-Lyte Cl Eff) 50 meq UNSCH PRN PO 08/14/17 04:15 Potassium Chloride 100 ml @ 25 mls/hr UNSCH PRN IV 08/14/17 04:15 Potassium Chloride 100 ml @ 50 mls/hr Q2H PRN IV 08/14/17 04:15 Magnesium Sulfate 4 gm/Sodium Chloride 100 ml @ 50 mls/hr UNSCH PRN IV 08/14/17 04:15 (Mag-Ox) 800 mg UNSCH PRN PO 08/14/17 04:15 Magnesium Sulfate 2 gm/Sodium Chloride 100 ml @ 50 mls/hr UNSCH PRN IV 08/14/17 04:15 (K-Phos) 2,000 mg Q4H PRN PO 08/14/17 04:15 Sodium Phosphate 30 mmol/Sodium Chloride 250 ml @ 42 mls/hr UNSCH PRN IV 08/14/17 04:15 (K-Phos) 2,000 mg UNSCH PRN PO/TUBE 08/14/17 04:15 Potassium Phosphate 30 mmol/ Sodium Chloride 260 ml @ 42 mls/hr UNSCH PRN IV 08/14/17 04:15 Vital Signs / I&O Vital Signs Date Time Temp Pulse Resp B/P (MAP) Pulse Ox O2 Delivery O2 Flow Rate FiO2 08/14/17 06:00 75 08/14/17 04:23 98 40 08/14/17 04:00 97.6 67 18 119/74 (89) 98 08/14/17 04:00 40 08/14/17 04:00 67 08/14/17 02:00 80 08/14/17 00:00 91 08/14/17 00:00 40 08/14/17 00:00 97.4 91 24 147/75 (99) 95 08/13/17 23:55 95 40 08/13/17 22:00 95 08/13/17 21:12 98 40 08/13/17 20:00 87 08/13/17 20:00 40 08/13/17 20:00 97.8 87 23 131/81 (98) 99 08/13/17 18:00 93 08/13/17 16:36 98 40 08/13/17 16:00 97.9 88 18 116/73 (87) 98 08/13/17 16:00 40 08/13/17 16:00 88 08/13/17 14:00 91 08/13/17 12:19 101 115/67 08/13/17 12:00 50 5/8/18 12:00 104 08/13/17 12:00 99.4 104 18 110/64 (79) 97 08/13/17 11:54 97 40 08/13/17 10:00 110 08/13/17 09:44 109 109/62 08/13/17 08:29 99 40 08/13/17 08:00 105 08/13/17 08:00 50 08/13/17 08:00 98.7 105 45 79/51 (60) 93 08/13/17 07:58 119 18 133/74 (93) 98 Ventilator 50 I/O 08/13/17 08/13/17 08/13/17 08/14/17 08/14/17 08/14/17 07:00 15:00 23:00 07:00 15:00 23:00 Intake Total 1261 ml 1851 ml 878.5 ml Output Total 1075 ml 450 ml Balance 1261 ml 776 ml 428.5 ml Intake IV Total 1261 ml 1731 ml 878.5 ml Tube Irrigant 120 ml Output Urine Total 1075 ml 450 ml Stool Total 0 ml 0 ml # Bowel Movements 0 Physical Exam GENERAL: Well developed, well nourished. Intubated. Sedated. HEENT: Jugular venous pressure is normal. CHEST: Lungs clear to auscultation anteriorly. CARDIAC: Regular rate and rhythm without S3, S4, or murmur. ABDOMEN: Soft, no hepatosplenomegaly. Bowel sounds present. EXTREMITIES: No clubbing, cyanosis, or edema on the right. Status post left BKA. Laboratory Laboratory Tests Test 08/13/17 08:15 08/13/17 12:55 08/13/17 16:46 08/13/17 20:00 Nasal Screen MRSA (PCR) MRSA NOT DETECTED Activated Partial Thromboplast Time GREATER THAN 277.5 SEC 51.5 SEC Total Creatine Kinase 310 U/L 302 U/L Creatine Kinase MB 3.9 NG/ML Creatine Kinase MB % 1.3 % Troponin I 2.26 NG/ML 1.50 NG/ML Blood Urea Nitrogen 17 MG/DL Creatinine 0.58 MG/DL Random Glucose 211 MG/DL Calcium Level 8.3 MG/DL Sodium Level 139 MEQ/L Potassium Level 3.9 MEQ/L Chloride Level 104 MEQ/L Carbon Dioxide Level 28.2 MEQ/L Anion Gap 7 MEQ/L Estimat Glomerular Filtration Rate 141 ML/MIN Test 08/14/17 00:06 08/14/17 03:00 08/14/17 06:30 Activated Partial Thromboplast Time 145.2 SEC 49.9 SEC White Blood Count 7.0 TH/MM3 Red Blood Count 3.17 MIL/MM3 Hemoglobin 9.4 GM/DL Hematocrit 28.7 % Mean Corpuscular Volume 90.5 FL Mean Corpuscular Hemoglobin 29.5 PG Mean Corpuscular Hemoglobin Concent 32.6 % Red Cell Distribution Width 17.5 % Platelet Count 156 TH/MM3 Mean Platelet Volume 8.3 FL Neutrophils (%) (Auto) 82.9 % Lymphocytes (%) (Auto) 7.1 % Monocytes (%) (Auto) 9.8 % Eosinophils (%) (Auto) 0.1 % Basophils (%) (Auto) 0.1 % Neutrophils # (Auto) 5.8 TH/MM3 Lymphocytes # (Auto) 0.5 TH/MM3 Monocytes # (Auto) 0.7 TH/MM3 Eosinophils # (Auto) 0.0 TH/MM3 Basophils # (Auto) 0.0 TH/MM3 CBC Comment DIFF FINAL Differential Comment Blood Urea Nitrogen 17 MG/DL Creatinine 0.56 MG/DL Random Glucose 211 MG/DL Total Protein 5.9 GM/DL Albumin 2.3 GM/DL Calcium Level 7.8 MG/DL Phosphorus Level 3.1 MG/DL Magnesium Level 1.5 MG/DL Alkaline Phosphatase 98 U/L Aspartate Amino Transf (AST/SGOT) 65 U/L Alanine Aminotransferase (ALT/SGPT) 34 U/L Total Bilirubin 0.3 MG/DL Sodium Level 142 MEQ/L Potassium Level 3.5 MEQ/L Chloride Level 105 MEQ/L Carbon Dioxide Level 30.5 MEQ/L Anion Gap 7 MEQ/L Estimat Glomerular Filtration Rate 146 ML/MIN Blood Gas Puncture Site LT BRACHIAL Blood Gas Patient Temperature 98.6 Blood Gas HCO3 31 mmol/L Blood Gas Base Excess 5.4 mmol/L Blood Gas Oxygen Saturation 93 % Arterial Blood pH 7.35 Arterial Blood Partial Pressure CO2 58 mmHg Arterial Blood Partial Pressure O2 83 mmHg Arterial Blood Oxygen Content 12.8 Vol % Arterial Blood Carboxyhemoglobin 1.0 % Arterial Blood Methemoglobin 1.3 % Blood Gas Hemoglobin 9.7 G/DL Oxygen Delivery Device VENTILATOR Blood Gas Ventilator Setting 18/550/IT1.0/8PEEP Blood Gas Inspired Oxygen 40 % Assessment and Plan Problem List: (1) CAD (coronary artery disease) ICD Codes: I25.10 - Coronary artery disease Status: Chronic Plan: Stable overnight. Now off pressor support. Troponin levels trending downward. CK's negative for [place]. REC resume beta allyn, JOSEFINA-I when BP's better continue aspirin, heparin nuclear stress test when extubated await 2D echo (2) Cardiomyopathy ICD Codes: I42.9 - Cardiomyopathy, unspecified Status: Resolved Plan: Prior history of EF 25%. Last available echo 01/2015 EF 55%. Await echo. No definite acute CHF. (3) Paroxysmal atrial fibrillation ICD Codes: I48.0 - Paroxysmal atrial fibrillation Status: Chronic Plan: Poorly documented history of paroxysmal atrial fib. Remains in NSR. Continue heparin drip for now. (4) Hypertension ICD Codes: I10 - Hypertension Status: Chronic Plan: Normotensive. Now off pressors. Code Status full code Problem Qualifiers (1) CAD (coronary artery disease): Qualified Codes: I25.119 - Atherosclerotic heart disease of [place] coronary artery with unspecified angina pectoris (2) Cardiomyopathy: Qualified Codes: I42.9 - Cardiomyopathy, unspecified (3) Hypertension: Qualified Codes: I10 - Essential (primary) hypertension Rich Gary MD August 14, 2017 07:35
[2017-08-14] MEDS: CHLORHEXIDINE 0.12% (ORAL KIT) 15 ML CUP MT SCH ×2 (08:00→20:00)
[2017-08-14] MEDS: VANCOMYCIN INJ 1,750 MG in SODIUM CHLORID 0.9% 500 ML INJ 500 ML IV SCH ×2 (08:10→20:02)
[2017-08-14] MEDS: POTASSIUM CHLOR 20 MEQ PREMIX 100 ML IV PRN ×2 (08:11→11:31)
[2017-08-14] MEDS: ASPIRIN 81 MG CHEW TAB CHEW SCH (08:12)
[2017-08-14] MEDS: FAMOTIDINE 20 MG TAB TUBE SCH ×2 (08:12→20:02)
[2017-08-14] MEDS: SODIUM CHLORIDE 0.9% FLUSH 10 ML FLUSH IV FLUSH SCH ×2 (08:12→20:03)
[2017-08-14] MEDS: RESP: ALBUTEROL 2.5 MG/IPRATROPIUM 0.5 MG NEB (PRN) INH ×2 (08:24→08:25)
[2017-08-14] MEDS ORDERED: PNEUMOCOCCAL POLYVALENT INJ 25 MCG/0.5 ML SYR IM ONE (10:00)
--- NOTE | 2017-08-14 11:58 | HHI.CCPN ---
Subjective Remarks/Hospital Course 66-year-old male who was brought to the ER after he developed shortness of breath and altered mental status. At long-term he was placed on nasal cannula 2 L because of his history of COPD as he uses it off and on. EMS was called when patient developed agonal respirations with O2 sats in the low 80s on their arrival with pink frothy sputum. Patient was intubated in the field after receiving etomidate and Versed. His systolic blood pressure was 190s following intubation and dropped to the 60 systolic range and he was started on dopamine in the field by EMS. He was brought to the ER at [place] and noted to have elevated troponin on his admitting labs. He was accepted for admission by critical care medicine service. He underwent a CT chest to evaluate for PE which was negative for PE however did show severe emphysematous changes with groundglass opacities. History is significantly limited by the fact that he is intubated. When I evaluated the patient he was sedated, orally intubated on mechanical ventilation. History was obtained by reviewing records. SUBJ 08/14/17: Remains intubated sedated, a CPAP was attempted but patient failed almost immediately with severe tachypnea. Continues to have bilateral expiratory wheezing and diminished air entry. Initial troponin was 3.18 now down trending Objective Vital Signs Date Time Temp Pulse Resp B/P (MAP) Pulse Ox O2 Delivery O2 Flow Rate FiO2 08/14/17 11:23 96 40 08/14/17 06:00 75 08/14/17 04:00 97.6 18 119/74 (89) 08/13/17 07:58 Ventilator 08/13/17 04:00 15.00 Intake and Output 08/14/17 08/14/17 08/15/17 08:00 16:00 00:00 Intake Total 878.5 ml 875 ml Output Total 450 ml Balance 428.5 ml 875 ml Result Diagram: 08/14/17 0300 08/14/17 0300 Other Results Laboratory Tests Test 08/14/17 06:30 Blood Gas Puncture Site LT BRACHIAL Blood Gas Patient Temperature 98.6 Blood Gas HCO3 31 mmol/L (22-26) Blood Gas Base Excess 5.4 mmol/L (-2-2) Blood Gas Oxygen Saturation 93 % (90-100) Arterial Blood pH 7.35 (7.380-7.420) Arterial Blood Partial Pressure CO2 58 mmHg (38-42) Arterial Blood Partial Pressure O2 83 mmHg (61-120) Arterial Blood Oxygen Content 12.8 Vol % (12.0-20.0) Arterial Blood Carboxyhemoglobin 1.0 % (0-4) Arterial Blood Methemoglobin 1.3 % (0-2) Blood Gas Hemoglobin 9.7 G/DL (12.0-16.0) Oxygen Delivery Device VENTILATOR Blood Gas Ventilator Setting 18/550/IT1.0/8PEEP Blood Gas Inspired Oxygen 40 % Imaging Last Impressions Chest X-Ray 08/13/17 0414 Signed Impressions: Service Date/Time: Sunday, August 13, 2017 04:28 - CONCLUSION: Lungs are grossly clear. ET tube in good position. Abel Cannon MD CT Angiography 08/13/17 0000 Signed Impressions: Service Date/Time: Sunday, August 13, 2017 07:25 - CONCLUSION: 1. No CT evidence for pulmonary embolism as questioned. 2. Moderate to severe upper lobe predominant centrilobular emphysema. 3. Patchy bibasilar groundglass opacities likely reflecting atelectasis although differential considerations include aspiration. 4. Multiple 4-6mm bilateral groundglass and solid nodules, likely infectious/inflammatory. Recommend followup CT examination in approximately 6 months per 2017 Fleischner criteria (6mm nodule). Steve Barajas MD Objective Remarks HEENT/ Neuro: Sedated, orally intubated, Pallor present, no icterus, tongue/ mucosa dry. Moves extremities Neck: No JVD Chest/Pulm: on mech vent, decreased air entry bilaterally, bilateral mild expiratory wheezing CVS: S1-S2 regular, no murmur GI/abdomen: soft, nontender, bowel sounds sluggish Extremities: warm bilaterally, no edema. Left lower extremity status post BKA noted A/P Assessment and Plan Assessment: Acute on chronic respiratory failure on mechanical ventilation Acute COPD exacerbation Advanced COPD/emphysema NSTEMI CAD History of cardiomyopathy Diabetes. Hyperlipidemia. Hypertension. Paroxysmal atrial fibrillation. Peripheral vascular disease Plan: Neuro: -Sedation with Versed/fentanyl gtt. Daily sedation vacation. Follow neuro status. Cardiovascular: -Hold antihypertensives in view of hypotension earlier. -Use labetalol as needed for hypertension. INR subtherapeutic the patient is on Coumadin at home. -Continue IV heparin for full anticoagulation. Aspirin. Cardiology Dr. Gary. 2D echo pending. -Resume beta allyn, JOSEFINA-I when BP's better -Dr. Gary recommends nuclear stress test when extubated Pulmonary: -Continue mechanical ventilation, vent bundle, bronchodilators scheduled as needed. -Daily CPAP trials -failed today due to severe tachypnea and wheezing -IV Solu-Medrol, add inhaled budesonide GI/liver: -N.p.o. for now. Start tube feeds with Jevity, bowel regimen Renal/: -Normal saline at 75 cc/h initiated. DC after tube feeds at goal -Strict intake output, monitor and replete electrodes, follow BUN/creatinine. -If 2D echo showed a severely depressed LV function will consider diuretics. ID: -Pancultures ordered-follow up. Empiric antibiotic coverage with IV aztreonam/ vancomycin, p.o. Flagyl. Endocrine: -Watch for hypoglycemia, SSI for glycemic control if needed. Heme: -Follow CBC and coags. On full anticoagulation with heparin. Prophylaxis: -Pepcid/SCDs. Full anti-coagulation with heparin. Condition critical, failed weaning trials Time spent on critical care excluding procedures 35 minutes Margarito Hernandez MD August 14, 2017 11:58
[2017-08-14] MEDS: fentaNYL DRIP 250 ML IV PRN (15:44)
[2017-08-14] MEDS: RESP: BUDESONIDE 0.5 MG/2 ML NEB NEB SCH (19:33)
[2017-08-15] VITALS (33 sets, daily range): BP systolic 115–177; BP diastolic 61–105; PULSE 56–99; RESP 13–34; TEMP 98.1–98.8; O2SAT 97–100
[2017-08-15] MEDS: RESP: ALBUTEROL 2.5 MG/IPRATROPIUM 0.5 MG NEB (SCH) NEB ×7 (00:12→23:08)
[2017-08-15] MEDS: AZTREONAM INJ 1,000 MG in SODIUM CHLORIDE 0.9% INJ 100 ML IV SCH (03:11)
[2017-08-15 04:38] LABS: AUTOMATED NEUTROPHIL # 7.5 TH/MM3 (1.8-7.7); BASOPHIL % 0.1 % (0.0-2.0); HEMATOCRIT 30.7 % (39.0-51.0); HEMOGLOBIN 9.9 GM/DL (13.0-17.0); LYMPH % 5.3 % (9.0-44.0); LYMPHOCYTE # 0.5 TH/MM3 (1.0-4.8); MEAN CELL VOLUME 90.4 FL (80.0-100.0); MEAN CORPUSCULAR HEMOGLOBIN 29.2 PG (27.0-34.0); MEAN CORPUSCULAR HGB CONC 32.3 % (32.0-36.0); MEAN PLATELET VOLUME 8.7 FL (7.0-11.0); MONO % 6.6 % (0.0-8.0); MONOCYTE # 0.6 TH/MM3 (0-0.9); PLATELET COUNT 148 TH/MM3 (150-450); RED BLOOD COUNT 3.39 MIL/MM3 (4.50-5.90); RED CELL DISTRIBUTION WIDTH 17.7 % (11.6-17.2); WHITE BLOOD COUNT 8.5 TH/MM3 (4.0-11.0)
[2017-08-15 04:46] LABS: ALBUMIN 2.4 GM/DL (3.4-5.0); ALT (GPT) 34 U/L (12-78); AST (GOT) 53 U/L (15-37); BICARBONATE 30.6 MEQ/L (21.0-32.0); BLOOD UREA NITROGEN 17 MG/DL (7-18); CALCIUM 7.8 MG/DL (8.5-10.1); CHLORIDE 106 MEQ/L (98-107); CREATININE 0.53 MG/DL (0.60-1.30); GLOMERULAR FILTRATION RATE 156 ML/MIN (>89); GLUCOSE,RANDOM 200 MG/DL (74-106); MAGNESIUM 1.9 MG/DL (1.5-2.5); SODIUM (NA) 144 MEQ/L (136-145)
[2017-08-15 04:49] LABS: ALKALINE PHOSPHATASE 97 U/L (45-117); TOTAL BILIRUBIN ADULT 0.3 MG/DL (0.2-1.0); TOTAL PROTEIN 6.3 GM/DL (6.4-8.2)
--- NOTE | 2017-08-15 04:52 | RADRPT ---
EXAM DATE/TIME: 08/15/2017 02:56 [place] COMPARISON: CHEST SINGLE AP, August 13, 2017, 4:28. INDICATIONS : Respiratory distress and known emphysema. Bilateral groundglass opacity seen on CT.. MEDICAL HISTORY : Cerebrovascular disease. Congestive heart failure. Hypertension. Diabetes SURGICAL HISTORY : CABG. Abdominal aortic aneurysm repair. Cholecystectomy. ENCOUNTER: Subsequent ACUITY: 3 days PAIN SCORE: Non-responsive. LOCATION: Bilateral chest FINDINGS: A single AP semierect view of the chest was obtained and again demonstrates the patient is status pos t median sternotomy. A nasogastric tube is again seen coursing through the esophagus and into the sto mach. The endotracheal tube remains in place with the tip approximately 7 cm above the axel. The he art size remains at the upper limits of normal. There is mild hazy opacity at the lung bases with no focal consolidation or effusion. There are multiple overlying electrocardiogram leads as well as cath eter tubing. CONCLUSION: 1. Mild hazy opacity remains at the lung bases with no focal consolidation. 2. The patient remains intubated and the nasogastric tube remains in place. Jacinto Benton MD on August 15, 2017 at 4:48 Board Certified Radiologist. This report was verified electronically.
[2017-08-15] MEDS: methylPREDNISolone SOD SUCC 40 MG/1 ML VIAL IV PUSH SCH ×3 (04:55→22:54)
[2017-08-15] MEDS: INSULIN ASPART SUPPLEMENTAL SCALE SQ SCH ×4 (04:55→23:50)
[2017-08-15] MEDS: metroNIDAZOLE 500 MG TAB OG-TUBE SCH ×3 (04:56→22:53)
--- NOTE | 2017-08-15 07:19 | PD.CARD.PN ---
Subjective Subjective Remarks Intubated. Awake. Denies CP, dyspnea, dizziness. Objective Medications Item Value Date Time Aspirin 81 mg 08/13/17 0900 (Aspirin Chew) DAILY/CHEW 08/14/17 0812 Heparin Sodium/ 250 ml @ 16 mls/hr 08/13/17 0515 Dextrose TITRATE PRN/IV 08/14/17 6123 Current Medications Medications (Trade) Dose Ordered Sig/Lindsey Route Start Time Stop Time Status Last Admin Propofol 100 ml @ 0 mls/hr TITRATE PRN IV 08/13/17 04:45 08/13/17 05:02 Heparin Sodium/ Dextrose 250 ml @ 16 mls/hr TITRATE PRN IV 08/13/17 05:15 08/14/17 21:57 Norepinephrine Bitartrate 250 ml @ 7.5 mls/hr TITRATE PRN IV 08/13/17 05:30 (Versed Inj) 2 mg Q10M PRN IV PUSH 08/13/17 05:30 08/13/17 06:18 (D50w (Vial) Inj) 50 ml UNSCH PRN IV PUSH 08/13/17 05:30 (Glucagon Inj) 1 mg UNSCH PRN OTHER 08/13/17 05:30 (NovoLOG SUPPLEMENTAL SCALE) 1 Q6H SQ 08/13/17 05:30 08/15/17 04:55 Dopamine HCl/ Dextrose 250 ml @ 10.125 mls/ hr TITRATE PRN IV 08/13/17 06:15 08/13/17 09:44 (Brethine Inj) 1 mg UNSCH PRN SQ 08/13/17 06:15 Sodium Chloride 1,000 ml @ 75 mls/hr [id number] IV 08/13/17 08:00 08/13/17 21:35 (NS Flush) 2 ml UNSCH PRN IV FLUSH 08/13/17 07:00 (NS Flush) 2 ml BID IV FLUSH 08/13/17 09:00 08/14/17 20:03 (Tylenol) 650 mg Q6H PRN PO 08/13/17 07:00 (Duoneb Neb) 1 ampule Q4HR NEB NEB 08/13/17 08:00 08/15/17 04:30 (Duoneb Neb) 1 ampule Q4HR NEB PRN INH 5/8/18 07:00 08/14/17 08:25 (Peridex 0.12% Liq) 15 ml BID@08,20 MT 08/13/17 08:00 08/14/17 20:00 (Pepcid) 20 mg BID TUBE 08/13/17 09:00 08/14/17 20:02 ([facility] [place] [facility] Information) 1 Q361D XX 08/13/17 07:00 08/13/17 07:00 (Chlorhexidine 2% Cloth) 3 pack Taper DAILY@04 TOP 08/14/17 04:00 08/10/18 03:59 08/14/17 21:38 (Chlorhexidine 2% Cloth) 3 pack UNSCH PRN TOP 08/13/17 07:00 Fentanyl Citrate 250 ml @ 5 mls/hr TITRATE PRN IV 08/13/17 07:00 08/14/17 15:44 (SoluMEDROL INJ) 80 mg Q8HR IV PUSH 08/13/17 14:00 08/15/17 04:55 (Aspirin Chew) 81 mg DAILY CHEW 08/13/17 09:00 08/14/17 08:12 Aztreonam 1000 mg/ Sodium Chloride 100 ml @ 200 mls/hr Q8H IV 08/13/17 12:00 08/15/17 03:11 Pharmacy Profile Note 0 ml @ 0 mls/hr UNSCH OTHER 08/13/17 11:30 (Flagyl) 500 mg Q8HR OG-TUBE 08/13/17 14:00 08/15/17 04:56 ([facility] [place] [facility] Ordered Lab Info) SPECIFIC LAB TO BE DRAWN:VANCOMYCIN TROUGH DATE TO... ONCE ONCE .XX 08/16/17 07:45 08/16/17 07:46 Midazolam HCl 50 ml @ 2 mls/hr TITRATE PRN IV 08/14/17 00:30 08/14/17 15:49 Potassium Chloride 100 ml @ 50 mls/hr Q2H PRN IV 08/14/17 04:15 Potassium Chloride 100 ml @ 50 mls/hr Q2H PRN IV 08/14/17 04:15 08/14/17 11:31 (K-Lyte Cl Eff) 50 meq UNSCH PRN PO 08/14/17 04:15 Potassium Chloride 100 ml @ 25 mls/hr UNSCH PRN IV 08/14/17 04:15 Potassium Chloride 100 ml @ 50 mls/hr Q2H PRN IV 08/14/17 04:15 Magnesium Sulfate 4 gm/Sodium Chloride 100 ml @ 50 mls/hr UNSCH PRN IV 08/14/17 04:15 (Mag-Ox) 800 mg UNSCH PRN PO 08/14/17 04:15 Magnesium Sulfate 2 gm/Sodium Chloride 100 ml @ 50 mls/hr UNSCH PRN IV 08/14/17 04:15 08/14/17 09:02 (K-Phos) 2,000 mg Q4H PRN PO 08/14/17 04:15 Sodium Phosphate 30 mmol/Sodium Chloride 250 ml @ 42 mls/hr UNSCH PRN IV 08/14/17 04:15 (K-Phos) 2,000 mg UNSCH PRN PO/TUBE 08/14/17 04:15 Potassium Phosphate 30 mmol/ Sodium Chloride 260 ml @ 42 mls/hr UNSCH PRN IV 08/14/17 04:15 Vancomycin HCl 1750 mg/Sodium Chloride 517.5 ml @ 250 mls/hr Q12H IV 08/14/17 20:00 08/14/17 20:02 (Pulmicort Respule Neb) 0.5 mg Q12HR NEB NEB 08/14/17 14:00 08/14/17 19:33 Vital Signs / I&O Vital Signs Date Time Temp Pulse Resp B/P (MAP) Pulse Ox O2 Delivery O2 Flow Rate FiO2 08/15/17 06:00 91 08/15/17 04:31 100 40 08/15/17 04:00 40 08/15/17 04:00 93 08/15/17 04:00 98.5 93 18 177/105 (129) 97 08/15/17 02:00 63 08/15/17 00:12 98 40 08/15/17 00:00 40 08/15/17 00:00 98.8 86 18 156/87 (110) 97 08/15/17 00:00 86 08/14/17 22:00 99 08/14/17 20:00 97.6 70 18 119/69 (86) 97 08/14/17 20:00 99 08/14/17 20:00 40 08/14/17 19:35 98 40 08/14/17 18:00 99 08/14/17 16:08 97 40 08/14/17 16:00 40 08/14/17 16:00 72 08/14/17 16:00 97.8 72 18 116/69 (85) 97 08/14/17 14:00 101 08/14/17 12:00 98 08/14/17 12:00 40 08/14/17 12:00 97.3 98 23 151/84 (106) 96 08/14/17 11:23 96 40 08/14/17 10:00 91 08/14/17 08:00 98 40 08/14/17 08:00 40 08/14/17 08:00 40 08/14/17 08:00 98.1 84 17 151/75 (100) 95 08/14/17 08:00 84 I/O 08/14/17 08/14/17 08/14/17 08/15/17 08/15/17 08/15/17 07:00 15:00 23:00 07:00 15:00 23:00 Intake Total 878.5 ml 973 ml 473 ml 527 ml Output Total 450 ml 522 ml 475 ml Balance 428.5 ml 973 ml -49 ml 52 ml Intake IV Total 878.5 ml 973 ml 353 ml 282 ml Tube Feeding 125 ml Tube Irrigant 120 ml 120 ml Output Urine Total 450 ml 522 ml 475 ml Stool Total 0 ml 0 ml 0 ml # Bowel Movements 0 Physical Exam GENERAL: Well developed, well nourished. Intubated. HEENT: Jugular venous pressure is normal. CHEST: Lungs clear to auscultation anteriorly. CARDIAC: Regular rate and rhythm without S3, S4, or murmur. ABDOMEN: Soft, no hepatosplenomegaly. Bowel sounds present. EXTREMITIES: No clubbing, cyanosis, or edema on the right. Status post left BKA. Laboratory Laboratory Tests Test 08/14/17 11:14 08/14/17 19:50 08/15/17 03:58 Activated Partial Thromboplast Time 73.8 SEC 68.9 SEC Potassium Level 3.8 MEQ/L 3.4 MEQ/L Magnesium Level 2.0 MG/DL 1.9 MG/DL White Blood Count 8.5 TH/MM3 Red Blood Count 3.39 MIL/MM3 Hemoglobin 9.9 GM/DL Hematocrit 30.7 % Mean Corpuscular Volume 90.4 FL Mean Corpuscular Hemoglobin 29.2 PG Mean Corpuscular Hemoglobin Concent 32.3 % Red Cell Distribution Width 17.7 % Platelet Count 148 TH/MM3 Mean Platelet Volume 8.7 FL Neutrophils (%) (Auto) 88.0 % Lymphocytes (%) (Auto) 5.3 % Monocytes (%) (Auto) 6.6 % Eosinophils (%) (Auto) 0.0 % Basophils (%) (Auto) 0.1 % Neutrophils # (Auto) 7.5 TH/MM3 Lymphocytes # (Auto) 0.5 TH/MM3 Monocytes # (Auto) 0.6 TH/MM3 Eosinophils # (Auto) 0.0 TH/MM3 Basophils # (Auto) 0.0 TH/MM3 CBC Comment DIFF FINAL Differential Comment Blood Urea Nitrogen 17 MG/DL Creatinine 0.53 MG/DL Random Glucose 200 MG/DL Total Protein 6.3 GM/DL Albumin 2.4 GM/DL Calcium Level 7.8 MG/DL Alkaline Phosphatase 97 U/L Aspartate Amino Transf (AST/SGOT) 53 U/L Alanine Aminotransferase (ALT/SGPT) 34 U/L Total Bilirubin 0.3 MG/DL Sodium Level 144 MEQ/L Chloride Level 106 MEQ/L Carbon Dioxide Level 30.6 MEQ/L Anion Gap 7 MEQ/L Estimat Glomerular Filtration Rate 156 ML/MIN Imaging Last 24 hours Impressions Chest X-Ray 08/15/17 0600 Signed Impressions: Service Date/Time: , August 15, 2017 02:56 - CONCLUSION: 1. Mild hazy opacity remains at the lung bases with no focal consolidation. 2. The patient remains intubated and the nasogastric tube remains in place. Jacinto Benton MD Assessment and Plan Problem List: (1) CAD (coronary artery disease) ICD Codes: I25.10 - Coronary artery disease Status: Chronic Plan: Stable overnight. No definite angina symptoms. Troponin levels trending downward. CK's negative for [place]. REC resume beta allyn, JOSEFINA-I continue aspirin, heparin nuclear stress test when extubated await 2D echo will f/u periodically (2) Cardiomyopathy ICD Codes: I42.9 - Cardiomyopathy, unspecified Status: Resolved Plan: Prior history of EF 25%. Last available echo 01/2015 EF 55%. Await echo. No definite acute CHF. (3) Paroxysmal atrial fibrillation ICD Codes: I48.0 - Paroxysmal atrial fibrillation Status: Chronic Plan: Poorly documented history of paroxysmal atrial fib. Remains in NSR. Continue heparin drip for now. Resume warfarin on discharge. (4) Hypertension ICD Codes: I10 - Hypertension Status: Chronic Plan: Hypertensive now. Resume home medications. Code Status full code Discussed Condition With patient Problem Qualifiers (1) CAD (coronary artery disease): Qualified Codes: I25.119 - Atherosclerotic heart disease of [place] coronary artery with unspecified angina pectoris (2) Cardiomyopathy: Qualified Codes: I42.9 - Cardiomyopathy, unspecified (3) Hypertension: Qualified Codes: I10 - Essential (primary) hypertension Rich Gary MD August 15, 2017 07:19
[2017-08-15] MEDS: RESP: BUDESONIDE 0.5 MG/2 ML NEB NEB SCH ×2 (07:39→19:40)
[2017-08-15] MEDS: LISINOPRIL 10 MG TAB PO SCH (07:58)
[2017-08-15] MEDS: ASPIRIN 81 MG CHEW TAB CHEW SCH (07:58)
[2017-08-15] MEDS: SODIUM CHLORIDE 0.9% FLUSH 10 ML FLUSH IV FLUSH SCH ×2 (07:58→20:40)
[2017-08-15] MEDS: FAMOTIDINE 20 MG TAB TUBE SCH ×2 (07:58→20:40)
[2017-08-15] MEDS: POTASSIUM CHLOR 20 MEQ PREMIX 100 ML IV PRN ×2 (07:59→13:27)
[2017-08-15] MEDS: SPIRONOLACTONE 25 MG TAB PO SCH (07:59)
[2017-08-15] MEDS: METOPROLOL TARTRATE 50 MG TAB PO SCH ×2 (07:59→20:40)
[2017-08-15] MEDS: FUROSEMIDE 20 MG TAB PO SCH (07:59)
[2017-08-15] MEDS: CHLORHEXIDINE 0.12% (ORAL KIT) 15 ML CUP MT SCH ×2 (08:00→20:40)
[2017-08-15] MEDS: VANCOMYCIN INJ 1,750 MG in SODIUM CHLORID 0.9% 500 ML INJ 500 ML IV SCH (08:03)
--- NOTE | 2017-08-15 08:38 | HHI.CCPN ---
Subjective Remarks/Hospital Course 66-year-old male who was brought to the ER after he developed shortness of breath and altered mental status. [facility] he was [facility] on nasal cannula 2 L because of his history of COPD as he uses it off and on. EMS was called when patient developed agonal respirations with O2 sats in the low 80s on their arrival with pink frothy sputum. Patient was intubated in the field after receiving etomidate and Versed. His systolic blood pressure was 190s following intubation and dropped to the 60 systolic range and he was started on dopamine in the field by EMS. He was brought to the ER at [facility] and noted to have elevated troponin on his admitting labs. He was accepted for admission by critical care medicine service. He underwent a CT chest to evaluate for PE which was negative for PE however did show severe emphysematous changes with groundglass opacities. History is significantly limited by the fact that he is intubated. When I evaluated the patient he was sedated, orally intubated on mechanical ventilation. History was obtained by reviewing records. SUBJ 08/14/17: Remains intubated sedated, a CPAP was attempted but patient failed almost immediately with severe tachypnea. Continues to have bilateral expiratory wheezing and diminished air entry. Initial troponin was 3.18 now down trending 08/15/17: Patient remains intubated sedated with Versed and fentanyl. On sedation hold wakes up easily follows commands. On attempted CPAP patient became tachypneic with labored breathing using accessory muscles. Not ready for extubation. Pseudomonas growing in sputum. Increase Azactam to 2 g IV every 8 hours Objective Vital Signs Date Time Temp Pulse Resp B/P (MAP) Pulse Ox O2 Delivery O2 Flow Rate FiO2 08/15/17 07:42 40 08/15/17 07:42 99 08/15/17 06:00 91 08/15/17 04:00 98.5 18 177/105 (129) 08/13/17 07:58 Ventilator 08/13/17 04:00 15.00 Intake and Output 08/15/17 08/15/17 08/16/17 08:00 16:00 00:00 Intake Total 527 ml Output Total 475 ml Balance 52 ml Result Diagram: 08/15/17 0358 08/15/17 0358 Imaging Last Impressions Chest X-Ray 08/13/17 2301 Signed Impressions: Service Date/Time: Sunday, August 13, 2017 04:28 - CONCLUSION: Lungs are grossly clear. ET tube in good position. Abel Cannon MD CT Angiography 08/13/17 0000 Signed Impressions: Service Date/Time: Sunday, August 13, 2017 07:25 - CONCLUSION: 1. No CT evidence for pulmonary embolism as questioned. 2. Moderate to severe upper lobe predominant centrilobular emphysema. 3. Patchy bibasilar groundglass opacities likely reflecting atelectasis although differential considerations include aspiration. 4. Multiple 4-6mm bilateral groundglass and solid nodules, likely infectious/inflammatory. Recommend followup CT examination in approximately 6 months per 2017 Fleischner criteria (6mm nodule). Steve Barajas MD Objective Remarks GEN: Sedated and intubated male HEENT: Pallor present, no icterus, tongue/ mucosa dry. Orotracheally intubated Neck: No JVD Chest/Pulm: on mech vent, decreased air entry bilaterally, bilateral expiratory wheezing CVS: S1-S2 regular, no murmur GI/abdomen: soft, nontender, bowel sounds sluggish Extremities: warm bilaterally, no edema. Left lower extremity status post BKA noted Neuro: Sedated, orally intubated, on sedation hold wakes up easily follows commands no focal deficits A/P Assessment and Plan Assessment: Acute on chronic respiratory failure on mechanical ventilation Acute COPD exacerbation Advanced COPD/emphysema NSTEMI Pseudomonas pneumonia CAD History of cardiomyopathy Diabetes Hyperlipidemia Hypertension Paroxysmal atrial fibrillation. Peripheral vascular disease Plan: Neuro: -Sedation with Versed/fentanyl gtt. Daily sedation vacation. Follow neuro status. Cardiovascular: -Started on metoprolol, lisinopril, Lasix and Aldactone by Dr. Gary -Use labetalol as needed for hypertension. INR subtherapeutic the patient is on Coumadin at home. -Continue IV heparin for full anticoagulation. Aspirin. Cardiology Dr. Gary. 2D echo pending. -Dr. Gary recommends nuclear stress test when extubated Pulmonary: -Continue mechanical ventilation, vent bundle, bronchodilators scheduled as needed. -Daily CPAP trials -failed again today due to severe tachypnea and wheezing, and use of accessory muscles -IV Solu-Medrol, add inhaled budesonide -Increase Azactam to 2 g IV every 8 hours for Pseudomonas in sputum GI/liver: -Tube feeds with Jevity, bowel regimen Renal/: -Discontinue all IV fluids. P.o. Lasix and Aldactone as above -Strict intake output, monitor and replete electrodes, follow BUN/creatinine. ID: -Pancultures ordered-follow up. Empiric antibiotic coverage with IV aztreonam/ vancomycin, p.o. Flagyl. --Increase Azactam to 2 g IV every 8 hours for Pseudomonas in sputum. Discontinue vancomycin Endocrine: -Watch for hypoglycemia, SSI for glycemic control if needed. Heme: -Follow CBC and coags. On full anticoagulation with heparin. Prophylaxis: -Pepcid/SCDs. Full anti-coagulation with heparin. Condition critical, failed weaning trials Time spent on critical care excluding procedures 35 minutes Margarito Hernandez MD August 15, 2017 08:38
[2017-08-15] MEDS: SODIUM CHLOR 0.9% 1000 ML INJ 1,000 ML IV SCH ×2 (10:28→10:38)
[2017-08-15] MEDS: AZTREONAM INJ 2,000 MG in SODIUM CHLORIDE 0.9% INJ 100 ML IV SCH ×2 (10:29→17:18)
[2017-08-15] MEDS: MIDAZOLAM 50 MG/NS 50 ML DRIP Premix IV PRN (14:42)
[2017-08-15] MEDS: fentaNYL DRIP 250 ML IV PRN (17:17)
--- NOTE | 2017-08-15 18:51 | ECHRPT ---
Indication: lv funcion CONCLUSIONS The left ventricular systolic function is normal with an estimated ejection fraction in the range of @ 50%, views limited and apex no imaged The right ventricular size is normal. The aortic root and proximal ascending aorta are not well visualized. No aortic valve regurgitation. The aortic valve is not well visualized. No tricuspid regurgitation. The pulmonary valve is not well visualized. The transthoracic study is normal by two-dimensional, color flow imaging and Doppler interrogation. BP: / HR: Rhythm: Technical Quality: FINDINGS LEFT VENTRICLE The left ventricular systolic function is normal with an estimated ejection fraction in the range of 55-60%. RIGHT VENTRICLE The right ventricular size is normal. LEFT ATRIUM The left atrial size is normal. RIGHT ATRIUM The right atrial size is normal. ATRIAL SEPTUM Normal atrial septal thickness without atrial level shunting by limited color doppler interrogation. AORTA The aortic root and proximal ascending aorta are not well visualized. MITRAL VALVE Structurally normal mitral valve. No mitral valve stenosis or regurgitation. AORTIC VALVE No aortic valve regurgitation. The aortic valve is not well visualized. TRICUSPID VALVE No tricuspid regurgitation. PULMONARY VALVE The pulmonary valve is not well visualized. PERICARDIUM No pericardial effusion. Hany Youngblood MD, FACC, FSCAI (Electronically Signed) Final Date:15 Aug 2017 18:50
[2017-08-15] MEDS: ATORVASTATIN 40 MG TAB PO SCH (20:40)
[2017-08-15] MEDS: HEPARIN-D5W 25,000 U/250 ML 250 ML IV PRN (21:23)
[2017-08-16] VITALS (19 sets, daily range): BP systolic 96–168; BP diastolic 55–83; PULSE 59–126; RESP 12–52; TEMP 97.6–98.4; O2SAT 94–100
[2017-08-16] MEDS: SODIUM CHLOR 0.9% 1000 ML INJ 1,000 ML IV SCH ×2 (03:06→13:55)
[2017-08-16] MEDS: AZTREONAM INJ 2,000 MG in SODIUM CHLORIDE 0.9% INJ 100 ML IV SCH ×3 (03:06→18:32)
[2017-08-16] MEDS: POTASSIUM CHLOR 20 MEQ PREMIX 100 ML IV PRN ×2 (03:07→06:30)
[2017-08-16] MEDS: CHLORHEXIDINE GLUCONATE 2 % 1 PACK (2 CLOTHS) TOP SCH (04:00)
[2017-08-16] MEDS: RESP: ALBUTEROL 2.5 MG/IPRATROPIUM 0.5 MG NEB (SCH) NEB ×6 (04:01→23:56)
[2017-08-16 04:33] LABS: HEMATOCRIT 28.3 % (39.0-51.0); HEMOGLOBIN 9.2 GM/DL (13.0-17.0); MEAN CELL VOLUME 89.9 FL (80.0-100.0); MEAN CORPUSCULAR HEMOGLOBIN 29.2 PG (27.0-34.0); MEAN CORPUSCULAR HGB CONC 32.5 % (32.0-36.0); MEAN PLATELET VOLUME 8.6 FL (7.0-11.0); PLATELET COUNT 152 TH/MM3 (150-450); RED BLOOD COUNT 3.15 MIL/MM3 (4.50-5.90); RED CELL DISTRIBUTION WIDTH 17.8 % (11.6-17.2); WHITE BLOOD COUNT 6.1 TH/MM3 (4.0-11.0)
[2017-08-16] MEDS: methylPREDNISolone SOD SUCC 40 MG/1 ML VIAL IV PUSH SCH ×3 (05:39→21:12)
[2017-08-16] MEDS: metroNIDAZOLE 500 MG TAB OG-TUBE SCH ×3 (05:39→21:12)
[2017-08-16] MEDS: INSULIN ASPART SUPPLEMENTAL SCALE SQ SCH ×4 (05:40→23:49)
[2017-08-16] MEDS: RESP: BUDESONIDE 0.5 MG/2 ML NEB NEB SCH ×2 (07:09→20:05)
[2017-08-16] MEDS ORDERED: PHARMACY ORDERED LAB ONE (07:45)
[2017-08-16] MEDS: MIDAZOLAM 50 MG/NS 50 ML DRIP Premix IV PRN ×2 (07:49→19:06)
[2017-08-16] MEDS: ASPIRIN 81 MG CHEW TAB CHEW SCH (08:23)
[2017-08-16] MEDS: FAMOTIDINE 20 MG TAB TUBE SCH ×2 (08:23→21:12)
[2017-08-16] MEDS: SPIRONOLACTONE 25 MG TAB PO SCH (08:24)
[2017-08-16] MEDS: SODIUM CHLORIDE 0.9% FLUSH 10 ML FLUSH IV FLUSH SCH ×2 (08:25→21:11)
[2017-08-16] MEDS: CHLORHEXIDINE 0.12% (ORAL KIT) 15 ML CUP MT SCH ×2 (08:26→21:11)
[2017-08-16] MEDS: LISINOPRIL 10 MG TAB PO SCH (08:28)
[2017-08-16] MEDS: METOPROLOL TARTRATE 50 MG TAB PO SCH ×2 (08:29→21:12)
[2017-08-16] MEDS: FUROSEMIDE 20 MG TAB PO SCH (08:29)
--- NOTE | 2017-08-16 10:42 | HHI.CCPN ---
Subjective Remarks/Hospital Course 66-year-old male who was brought to the ER after he developed shortness of breath and altered mental status. At [facility] he was placed on nasal cannula 2 L because of his history of COPD as he uses it off and on. EMS was called when patient developed agonal respirations with O2 sats in the low 80s on their arrival with pink frothy sputum. Patient was intubated in the field after receiving etomidate and Versed. His systolic blood pressure was 190s following intubation and dropped to the 60 systolic range and he was started on dopamine in the field by EMS. He was brought to the ER at [facility] and noted to have elevated troponin on his admitting labs. He was accepted for admission by critical care medicine service. He underwent a CT chest to evaluate for PE which was negative for PE however did show severe emphysematous changes with groundglass opacities. History is significantly limited by the fact that he is intubated. When I evaluated the patient he was sedated, orally intubated on mechanical ventilation. History was obtained by reviewing records. SUBJ 08/14/17: Remains intubated sedated, a CPAP was attempted but patient failed almost immediately with severe tachypnea. Continues to have bilateral expiratory wheezing and diminished air entry. Initial troponin was 3.18 now down trending 08/15/17: Patient remains intubated sedated with Versed and fentanyl. On sedation hold wakes up easily follows commands. On attempted CPAP patient became tachypneic with labored breathing using accessory muscles. Not ready for extubation. Pseudomonas growing in sputum. Increase Azactam to 2 g IV every 8 hours 08/16/17: Tolerating CPAP trials better today. Sputum culture growing Pseudomonas pansensitive. Will attempt to extubate with BiPAP use if needed Objective Vital Signs Date Time Temp Pulse Resp B/P (MAP) Pulse Ox O2 Delivery O2 Flow Rate FiO2 08/16/17 07:09 96 40 08/16/17 06:00 80 08/16/17 04:00 98.1 12 119/68 (85) 08/13/17 07:58 Ventilator 08/13/17 04:00 15.00 Intake and Output 08/16/17 08/16/17 08/17/17 08:00 16:00 00:00 Intake Total 642 ml Output Total 425 ml Balance 217 ml Result Diagram: 08/16/17 0400 08/16/17 0012 Imaging Last Impressions Chest X-Ray 08/13/17 0414 Signed Impressions: Service Date/Time: Sunday, August 13, 2017 04:28 - CONCLUSION: Lungs are grossly clear. ET tube in good position. Abel Cannon MD CT Angiography 08/13/17 0000 Signed Impressions: Service Date/Time: Sunday, August 13, 2017 07:25 - CONCLUSION: 1. No CT evidence for pulmonary embolism as questioned. 2. Moderate to severe upper lobe predominant centrilobular emphysema. 3. Patchy bibasilar groundglass opacities likely reflecting atelectasis although differential considerations include aspiration. 4. Multiple 4-6mm bilateral groundglass and solid nodules, likely infectious/inflammatory. Recommend followup CT examination in approximately 6 months per 2017 Fleischner criteria (6mm nodule). Steve Barajas MD Objective Remarks GEN: Sedated and intubated male HEENT: Pallor present, no icterus, tongue/ mucosa dry. Orotracheally intubated Neck: No JVD Chest/Pulm: on mech vent, decreased air entry bilaterally, bilateral expiratory wheezing slightly improved CVS: S1-S2 regular, no murmur GI/abdomen: soft, nontender, bowel sounds sluggish Extremities: warm bilaterally, no edema. Left lower extremity status post BKA noted Neuro: Sedated, orally intubated, on sedation hold wakes up easily follows commands no focal deficits A/P Assessment and Plan Assessment: Acute on chronic respiratory failure on mechanical ventilation Acute COPD exacerbation Advanced COPD/emphysema NSTEMI Pseudomonas pneumonia CAD History of cardiomyopathy Diabetes Hyperlipidemia Hypertension Paroxysmal atrial fibrillation. Peripheral vascular disease Plan: Neuro: -Sedation with Versed/fentanyl gtt. Daily sedation vacation. Follow neuro status. Cardiovascular: -Continue metoprolol, lisinopril, Lasix and Aldactone per Dr. Gary -Use labetalol as needed for hypertension. INR subtherapeutic the patient is on Coumadin at home. -Continue IV heparin for full anticoagulation. Aspirin. Cardiology Dr. Gary. 2D echo EF 50% -Dr. Gary recommends nuclear stress test when extubated Pulmonary: -Continue mechanical ventilation, vent bundle, bronchodilators scheduled as needed. -Tolerating CPAP better today. Extubation with BiPAP available for use immediately at bedside -CT of the chest showed severe emphysema and pneumonia -IV Solu-Medrol, add inhaled budesonide -Increase Azactam to 2 g IV every 8 hours for Pseudomonas in sputum GI/liver: -Tube feeds with Jevity, bowel regimen. Hold tube feeds for possible extubation Renal/: -Discontinued all IV fluids. P.o. Lasix and Aldactone as above -Strict intake output, monitor and replete electrodes, follow BUN/creatinine. ID: -Sputum culture growing Pseudomonas, Azactam to 2 g IV every 8 hours Endocrine: -Watch for hypoglycemia, SSI for glycemic control if needed. Heme: -Follow CBC and coags. On full anticoagulation with heparin. Prophylaxis: -Pepcid/SCDs. Full anti-coagulation with heparin. Condition critical, failed weaning trials Time spent on critical care excluding procedures 35 minutes Will attempt extubation with immediate BiPAP use if not tolerating. Severe emphysema pneumonia may make it difficult to liberate from the ventilator, will attempt today Margarito Hernandez MD August 16, 2017 10:42
[2017-08-16] MEDS: RESP: ALBUTEROL 2.5 MG/IPRATROPIUM 0.5 MG NEB (PRN) INH ×2 (12:08→18:33)
[2017-08-16] MEDS ORDERED: LORazepam 2 MG/ML VIAL ONE (17:39)
[2017-08-16] MEDS ORDERED: ETOMIDATE 40 MG/20 ML VIAL ONE (17:57)
[2017-08-16] MEDS ORDERED: ROCURONIUM INJ 50 MG/5 ML VIAL ONE (17:57)
[2017-08-16] MEDS ORDERED: MIDAZOLAM HCL 5 MG/ML VIAL (1 ML) ONE (17:57)
[2017-08-16] MEDS ORDERED: DEXMEDETOMIDINE INJ 200 MCG in SODIUM CHLORIDE 0.9% INJ 50 ML IV PRN (18:00)
--- NOTE | 2017-08-16 18:10 | PD.PROCEDR ---
Procedure Note Procedure Emergent intubation for acute COPD exacerbation and hypoxemic respiratory failure INTUBATION: The patient was put in optimal position for the procedure. Rapid sequence intubation was initiated by me using 20 milligrams of etomidate IV and 10 milligrams of Versed IV. NM paralysis with 50 mg Rocuronium IV. DL with Mac 4 blade Grade 1 view. single attempt. The patient was intubated with a 8 cuffed endotracheal tube. Tube placement was confirmed by visualization of the tube and balloon passing through the cords, capnometry and subsequent chest x-ray. Breath sounds were equal and well aerated bilaterally postintubation. No breath sounds over stomach. Patient tolerated procedure well. Margarito Hernandez MD August 16, 2017 18:09
[2017-08-16] MEDS ORDERED: LORazepam 2 MG/ML VIAL IV PUSH ONE (18:30)
[2017-08-16] MEDS ORDERED: RASS Change Order XX ONE ×3 (18:30)
--- NOTE | 2017-08-16 18:45 | RADRPT ---
EXAM DATE/TIME: 08/16/2017 19:15 [facility] COMPARISON: CHEST SINGLE AP, August 15, 2017, 2:56. INDICATIONS : Post intubation and OG tube placement. MEDICAL HISTORY : Cerebrovascular disease. Congestive heart failure. Hypertension. Diabetes SURGICAL HISTORY : CABG. Abdominal aortic aneurysm repair. Cholecystectomy. ENCOUNTER: Initial ACUITY: 1 day PAIN SCORE: Non-responsive. LOCATION: Bilateral chest FINDINGS: 2 portable frontal views of the chest show an endotracheal tube with the tip 3 cm proximal to the car marco. Tip of the NG tube in the region of the body of the stomach. Patchy consolidation involving both lung bases. This is stable. Heart is normal in size. No effusions. Median sternotomy wires. CONCLUSION: 1. Endotracheal tube and nasogastric tube. 2. Unchanged bibasilar infiltrates. Ricki Metzger Jr., MD on August 16, 2017 at 18:42 Board Certified Radiologist. This report was verified electronically.
[2017-08-16] MEDS: PROPOFOL 1000 MG/100 ML INJ 100 ML IV PRN (19:46)
[2017-08-16] MEDS: HEPARIN-D5W 25,000 U/250 ML 250 ML IV PRN (19:48)
[2017-08-16] MEDS: ATORVASTATIN 40 MG TAB PO SCH (21:12)
[2017-08-17] VITALS (28 sets, daily range): BP systolic 111–159; BP diastolic 63–79; PULSE 50–92; RESP 14–29; TEMP 98.2–98.6; O2SAT 98–100
[2017-08-17] MEDS: PROPOFOL 1000 MG/100 ML INJ 100 ML IV PRN ×4 (00:20→18:45)
[2017-08-17] MEDS: MIDAZOLAM 50 MG/NS 50 ML DRIP Premix IV PRN ×3 (02:15→19:32)
[2017-08-17] MEDS: AZTREONAM INJ 2,000 MG in SODIUM CHLORIDE 0.9% INJ 100 ML IV SCH ×3 (02:44→18:03)
[2017-08-17] MEDS: CHLORHEXIDINE GLUCONATE 2 % 1 PACK (2 CLOTHS) TOP SCH (03:51)
[2017-08-17] MEDS: RESP: ALBUTEROL 2.5 MG/IPRATROPIUM 0.5 MG NEB (SCH) NEB ×2 (04:27→07:44)
[2017-08-17] MEDS: SODIUM CHLOR 0.9% 1000 ML INJ 1,000 ML IV SCH ×2 (05:17→18:44)
[2017-08-17] MEDS: methylPREDNISolone SOD SUCC 40 MG/1 ML VIAL IV PUSH SCH ×3 (05:33→20:34)
[2017-08-17] MEDS: INSULIN ASPART SUPPLEMENTAL SCALE SQ SCH ×4 (05:33→23:58)
[2017-08-17] MEDS: metroNIDAZOLE 500 MG TAB OG-TUBE SCH ×3 (05:33→20:33)
[2017-08-17] MEDS: RESP: BUDESONIDE 0.5 MG/2 ML NEB NEB SCH ×2 (07:44→19:55)
[2017-08-17] MEDS: CHLORHEXIDINE 0.12% (ORAL KIT) 15 ML CUP MT SCH ×2 (08:00→20:32)
[2017-08-17] MEDS: FUROSEMIDE 20 MG TAB PO SCH (08:42)
[2017-08-17] MEDS: METOPROLOL TARTRATE 50 MG TAB PO SCH ×2 (08:42→20:33)
[2017-08-17] MEDS: SPIRONOLACTONE 25 MG TAB PO SCH (08:42)
[2017-08-17] MEDS: FAMOTIDINE 20 MG TAB TUBE SCH ×2 (08:42→20:33)
[2017-08-17] MEDS: ASPIRIN 81 MG CHEW TAB CHEW SCH (08:42)
[2017-08-17] MEDS: SODIUM CHLORIDE 0.9% FLUSH 10 ML FLUSH IV FLUSH SCH ×2 (08:42→20:33)
[2017-08-17] MEDS: LISINOPRIL 10 MG TAB PO SCH (08:48)
[2017-08-17] MEDS: RESP: ALBUTEROL 2.5 MG/IPRATROPIUM 0.5 MG NEB (PRN) INH ×3 (11:16→23:35)
[2017-08-17] MEDS ORDERED: ROCURONIUM INJ 50 MG/5 ML VIAL IV PUSH ONE (11:45)
[2017-08-17] MEDS: DOPamine 400 MG/250 ML PREMIX IV PRN (12:23)
[2017-08-17] MEDS ORDERED: DOPamine 800 MG/D5W PREMIX 500 ML IV PRN (12:30)
[2017-08-17] MEDS ORDERED: TERBUTALINE INJ 1 MG/ML AMP SQ PRN (12:30)
--- NOTE | 2017-08-17 16:24 | HHI.CCPN ---
Subjective Remarks/Hospital Course 66-year-old male who was brought to the ER after he developed shortness of breath and altered mental status. [facility] he was placed on nasal cannula 2 L because of his history of COPD as he uses it off and on. EMS was called when patient developed agonal respirations with O2 sats in the low 80s on their arrival with pink frothy sputum. Patient was intubated in the field after receiving etomidate and Versed. His systolic blood pressure was 190s following intubation and dropped to the 60 systolic range and he was started on dopamine in the field by EMS. He was brought to the ER at [facility] and noted to have elevated troponin on his admitting labs. He was accepted for admission by critical care medicine service. He underwent a CT chest to evaluate for PE which was negative for PE however did show severe emphysematous changes with groundglass opacities. History is significantly limited by the fact that he is intubated. When I evaluated the patient he was sedated, orally intubated on mechanical ventilation. History was obtained by reviewing records. SUBJ 08/14/17: Remains intubated sedated, a CPAP was attempted but patient failed almost immediately with severe tachypnea. Continues to have bilateral expiratory wheezing and diminished air entry. Initial troponin was 3.18 now down trending 08/15/17: Patient remains intubated sedated with Versed and fentanyl. On sedation hold wakes up easily follows commands. On attempted CPAP patient became tachypneic with labored breathing using accessory muscles. Not ready for extubation. Pseudomonas growing in sputum. Increase Azactam to 2 g IV every 8 hours 08/16/17: Tolerating CPAP trials better today. Sputum culture growing Pseudomonas pansensitive. Will attempt to extubate with BiPAP use if needed 08/17/17: Reintubated yesterday evening following severe respiratory distress and severe wheezing. Currently remains sedated on vent support. Persistent wheezing. Objective Vital Signs Date Time Temp Pulse Resp B/P (MAP) Pulse Ox O2 Delivery O2 Flow Rate FiO2 08/17/17 15:00 74 08/17/17 14:28 100 40 08/17/17 13:00 14 152/73 (99) 08/17/17 08:00 98.6 08/16/17 09:40 BiPAP/CPAP Intake and Output 08/17/17 08/17/17 08/17/17 07:59 15:59 23:59 Intake Total 200 ml Balance 200 ml Result Diagram: 08/16/17 0400 08/16/17 1338 Imaging Last Impressions Chest X-Ray 08/13/17 0414 Signed Impressions: Service Date/Time: Sunday, August 13, 2017 04:28 - CONCLUSION: Lungs are grossly clear. ET tube in good position. Abel Cannon MD CT Angiography 08/13/17 0000 Signed Impressions: Service Date/Time: Sunday, August 13, 2017 07:25 - CONCLUSION: 1. No CT evidence for pulmonary embolism as questioned. 2. Moderate to severe upper lobe predominant centrilobular emphysema. 3. Patchy bibasilar groundglass opacities likely reflecting atelectasis although differential considerations include aspiration. 4. Multiple 4-6mm bilateral groundglass and solid nodules, likely infectious/inflammatory. Recommend followup CT examination in approximately 6 months per 2017 Fleischner criteria (6mm nodule). Steve Barajas MD Objective Remarks GEN: Sedated and intubated male HEENT: Pallor present, no icterus, tongue/ mucosa dry. Orotracheally intubated Neck: No JVD Chest/Pulm: on mech vent, decreased air entry bilaterally, bilateral expiratory wheezing. Air entry is markedly diminished CVS: S1-S2 regular, no murmur GI/abdomen: soft, nontender, bowel sounds sluggish Extremities: warm bilaterally, no edema. Left lower extremity status post BKA noted Neuro: Sedated, orally intubated, on sedation hold wakes up easily follows commands no focal deficits. A/P Assessment and Plan Assessment: Acute on chronic respiratory failure on mechanical ventilation Acute COPD exacerbation NSTEMI Pseudomonas pneumonia Advanced COPD/emphysema CAD History of cardiomyopathy Diabetes Hyperlipidemia Hypertension Paroxysmal atrial fibrillation. Peripheral vascular disease Plan: Neuro: -Sedation with Versed/fentanyl gtt. Daily sedation vacation. Follow neuro status. Cardiovascular: -Continue metoprolol, lisinopril, Lasix and Aldactone per Dr. Gary -Use labetalol as needed for hypertension. INR subtherapeutic the patient is on Coumadin at home. -Continue IV heparin for full anticoagulation. Aspirin. Cardiology Dr. Gary. 2D echo EF 50% -Dr. Gary recommends nuclear stress test when extubated Pulmonary: -Continue mechanical ventilation, vent bundle, bronchodilators scheduled as needed. -Failed extubation 08/16/2017, reintubated approximately after 6-8 hours -Patient may need prolonged ventilatory support and even trach due to severe emphysema -CT of the chest showed severe emphysema and pneumonia -IV Solu-Medrol, inhaled budesonide -Azactam to 2 g IV every 8 hours for Pseudomonas in sputum GI/liver: -Tube feeds with Jevity, bowel regimen. Renal/: -P.o. Lasix and Aldactone as above -Strict intake output, monitor and replete electrodes, follow BUN/creatinine. ID: -Sputum culture growing Pseudomonas, Azactam to 2 g IV every 8 hours Endocrine: -Watch for hypoglycemia, SSI for glycemic control if needed. Heme: -Follow CBC and coags. On full anticoagulation with heparin. Prophylaxis: -Pepcid/SCDs. Full anti-coagulation with heparin. Condition critical, failed extubation. Will need prolonged vent support and possibly trach due to severe COPD Time spent on critical care excluding procedures 35 minutes Margarito Hernandez MD August 17, 2017 16:24
[2017-08-17] MEDS: HEPARIN-D5W 25,000 U/250 ML 250 ML IV PRN (19:31)
[2017-08-17] MEDS: ATORVASTATIN 40 MG TAB PO SCH (20:33)
[2017-08-18] VITALS (18 sets, daily range): BP systolic 96–144; BP diastolic 56–82; PULSE 82–101; RESP 14–42; TEMP 98.2–99; O2SAT 97–100
[2017-08-18] MEDS: PROPOFOL 1000 MG/100 ML INJ 100 ML IV PRN ×3 (02:19→22:11)
[2017-08-18] MEDS: AZTREONAM INJ 2,000 MG in SODIUM CHLORIDE 0.9% INJ 100 ML IV SCH ×3 (02:52→17:01)
[2017-08-18] MEDS: CHLORHEXIDINE GLUCONATE 2 % 1 PACK (2 CLOTHS) TOP SCH (04:00)
[2017-08-18] MEDS: RESP: ALBUTEROL 2.5 MG/IPRATROPIUM 0.5 MG NEB (PRN) INH (04:16)
[2017-08-18 04:21] LABS: AUTOMATED NEUTROPHIL # 7.1 TH/MM3 (1.8-7.7); BASOPHIL # 0.1 TH/MM3 (0-0.2); BASOPHIL % 0.7 % (0.0-2.0); HEMATOCRIT 27.1 % (39.0-51.0); LYMPHOCYTE # 0.5 TH/MM3 (1.0-4.8); MEAN CELL VOLUME 91.2 FL (80.0-100.0); MEAN CORPUSCULAR HEMOGLOBIN 30.1 PG (27.0-34.0); MEAN PLATELET VOLUME 8.8 FL (7.0-11.0); MONOCYTE # 0.6 TH/MM3 (0-0.9); NEUT % 86.3 % (16.0-70.0); PLATELET COUNT 183 TH/MM3 (150-450); RED BLOOD COUNT 2.97 MIL/MM3 (4.50-5.90); RED CELL DISTRIBUTION WIDTH 17.5 % (11.6-17.2); WHITE BLOOD COUNT 8.3 TH/MM3 (4.0-11.0)
--- NOTE | 2017-08-18 04:33 | RADRPT ---
EXAM DATE/TIME: 08/18/2017 04:19 [facility] COMPARISON: CHEST SINGLE AP, August 16, 2017, 19:15. INDICATIONS : Shortness of breath, respiratory failure. MEDICAL HISTORY : Cerebrovascular disease. Congestive heart failure. Hypertension. Diabetes SURGICAL HISTORY : CABG. Abdominal aortic aneurysm repair. Cholecystectomy. ENCOUNTER: Subsequent ACUITY: 4 - 6 days PAIN SCORE: Non-responsive. LOCATION: Bilateral chest FINDINGS: A single AP semierect view of the chest was obtained and again demonstrates the patient is status pos t median sternotomy. The nasogastric tube remains in place. Endotracheal tube remains in place as wel l with the tip approximately 5 cm above the axel. There is been an interval decrease in the right l javier base pulmonary opacity. CONCLUSION: 1. Interval improvement in the pulmonary opacities in the right lung base. Jacinto Benton MD on August 18, 2017 at 4:29 Board Certified Radiologist. This report was verified electronically.
[2017-08-18] MEDS: methylPREDNISolone SOD SUCC 40 MG/1 ML VIAL IV PUSH SCH ×3 (04:37→20:00)
[2017-08-18] MEDS: metroNIDAZOLE 500 MG TAB OG-TUBE SCH ×3 (04:37→20:00)
[2017-08-18] MEDS: INSULIN ASPART SUPPLEMENTAL SCALE SQ SCH ×4 (04:38→23:48)
[2017-08-18 04:51] LABS: AST (GOT) 27 U/L (15-37); BICARBONATE 35.2 MEQ/L (21.0-32.0); BLOOD UREA NITROGEN 24 MG/DL (7-18); CHLORIDE 103 MEQ/L (98-107); CREATININE 0.52 MG/DL (0.60-1.30); GLOMERULAR FILTRATION RATE 159 ML/MIN (>89); GLUCOSE,RANDOM 338 MG/DL (74-106); MAGNESIUM 1.7 MG/DL (1.5-2.5); SODIUM (NA) 146 MEQ/L (136-145)
[2017-08-18 04:52] LABS: ALT (GPT) 20 U/L (12-78)
[2017-08-18 04:55] LABS: ALKALINE PHOSPHATASE 70 U/L (45-117); TOTAL BILIRUBIN ADULT 0.4 MG/DL (0.2-1.0); TOTAL PROTEIN 5.2 GM/DL (6.4-8.2)
[2017-08-18] MEDS: POTASSIUM CHLOR 20 MEQ PREMIX 100 ML IV PRN ×2 (06:27→23:31)
[2017-08-18] MEDS: RESP: BUDESONIDE 0.5 MG/2 ML NEB NEB SCH ×2 (07:33→20:26)
[2017-08-18] MEDS: SODIUM CHLORIDE 0.9% FLUSH 10 ML FLUSH IV FLUSH SCH ×2 (09:19→20:01)
[2017-08-18] MEDS: ASPIRIN 81 MG CHEW TAB CHEW SCH (09:20)
[2017-08-18] MEDS: LISINOPRIL 10 MG TAB PO SCH (09:20)
[2017-08-18] MEDS: FAMOTIDINE 20 MG TAB TUBE SCH ×2 (09:20→20:01)
[2017-08-18] MEDS: METOPROLOL TARTRATE 50 MG TAB PO SCH ×2 (09:20→20:00)
[2017-08-18] MEDS: SPIRONOLACTONE 25 MG TAB PO SCH (09:20)
[2017-08-18] MEDS: SODIUM CHLOR 0.9% 1000 ML INJ 1,000 ML IV SCH (09:20)
[2017-08-18] MEDS: FUROSEMIDE 20 MG TAB PO SCH (09:21)
[2017-08-18] MEDS: CHLORHEXIDINE 0.12% (ORAL KIT) 15 ML CUP MT SCH ×2 (09:21→20:01)
[2017-08-18 10:22] LABS: BANDS 7 % (0-6); LYMPHOCYTES 3 % (9-44); METAMYELOCYTES 4 % (0-1); MONOCYTES 7 % (0-8); NEUTROPHIL # MANUAL DIFF 7.5 TH/MM3 (1.8-7.7); POLYS (SEG NEUTROPHILS) 79 % (16-70); TOXIC GRANULATION 2+ (NORMAL)
[2017-08-18] MEDS: MIDAZOLAM 50 MG/NS 50 ML DRIP Premix IV PRN (11:37)
[2017-08-18] MEDS: RESP: ALBUTEROL 2.5 MG/IPRATROPIUM 0.5 MG NEB (SCH) INH ×4 (12:02→23:12)
--- NOTE | 2017-08-18 12:20 | HHI.CCPN ---
Subjective Remarks/Hospital Course 66-year-old male who was brought to the ER after he developed shortness of breath and altered mental status. At snf he was placed on nasal cannula 2 L because of his history of COPD as he uses it off and on. EMS was called when patient developed agonal respirations with O2 sats in the low 80s on their arrival with pink frothy sputum. Patient was intubated in the field after receiving etomidate and Versed. His systolic blood pressure was 190s following intubation and dropped to the 60 systolic range and he was started on dopamine in the field by EMS. He was brought to the ER at [facility] and noted to have elevated troponin on his admitting labs. He was accepted for admission by critical care medicine service. He underwent a CT chest to evaluate for PE which was negative for PE however did show severe emphysematous changes with groundglass opacities. History is significantly limited by the fact that he is intubated. When I evaluated the patient he was sedated, orally intubated on mechanical ventilation. History was obtained by reviewing records. SUBJ 08/14/17: Remains intubated sedated, a CPAP was attempted but patient failed almost immediately with severe tachypnea. Continues to have bilateral expiratory wheezing and diminished air entry. Initial troponin was 3.18 now down trending 08/15/17: Patient remains intubated sedated with Versed and fentanyl. On sedation hold wakes up easily follows commands. On attempted CPAP patient became tachypneic with labored breathing using accessory muscles. Not ready for extubation. Pseudomonas growing in sputum. Increase Azactam to 2 g IV every 8 hours 08/16/17: Tolerating CPAP trials better today. Sputum culture growing Pseudomonas pansensitive. Will attempt to extubate with BiPAP use if needed 08/17/17: Reintubated yesterday evening following severe respiratory distress and severe wheezing. Currently remains sedated on vent support. Persistent wheezing. 08/18: Remains intubated sedated. Will initiate CPAP trials again. Patient has severe emphysema and will be difficult to wean to extubate. Wheezing persists Objective Vital Signs Date Time Temp Pulse Resp B/P (MAP) Pulse Ox O2 Delivery O2 Flow Rate FiO2 08/18/17 11:51 40 08/18/17 11:51 98 08/18/17 06:00 94 08/18/17 04:00 98.3 14 96/56 (69) 08/16/17 09:40 BiPAP/CPAP Intake and Output 08/18/17 08/18/17 08/19/17 08:00 16:00 00:00 Intake Total 1482 ml Output Total 600.0 ml Balance 882.0 ml Result Diagram: 08/18/17 0409 08/18/17 0409 Imaging Last Impressions Chest X-Ray 08/13/17 0414 Signed Impressions: Service Date/Time: Sunday, August 13, 2017 04:28 - CONCLUSION: Lungs are grossly clear. ET tube in good position. Abel Cannon MD CT Angiography 08/13/17 0000 Signed Impressions: Service Date/Time: Sunday, August 13, 2017 07:25 - CONCLUSION: 1. No CT evidence for pulmonary embolism as questioned. 2. Moderate to severe upper lobe predominant centrilobular emphysema. 3. Patchy bibasilar groundglass opacities likely reflecting atelectasis although differential considerations include aspiration. 4. Multiple 4-6mm bilateral groundglass and solid nodules, likely infectious/inflammatory. Recommend followup CT examination in approximately 6 months per 2017 Fleischner criteria (6mm nodule). Steve Barajas MD Objective Remarks GEN: Sedated and intubated male HEENT: Pallor present, no icterus, tongue/ mucosa dry. Orotracheally intubated Neck: No JVD Chest/Pulm: on mech vent, decreased air entry bilaterally, bilateral expiratory wheezing. Air entry remains diminished CVS: S1-S2 regular, no murmur GI/abdomen: soft, nontender, bowel sounds sluggish Extremities: warm bilaterally, no edema. Left lower extremity status post BKA noted Neuro: Sedated, orally intubated, on sedation hold wakes up easily follows commands no focal deficits. A/P Assessment and Plan Assessment: Acute on chronic respiratory failure on mechanical ventilation Acute COPD exacerbation NSTEMI Pseudomonas pneumonia Advanced COPD/emphysema CAD History of cardiomyopathy Diabetes Hyperlipidemia Hypertension Paroxysmal atrial fibrillation. Peripheral vascular disease Plan: Neuro: -Sedation with Versed/fentanyl gtt. Daily sedation vacation. Follow neuro status. Cardiovascular: -Continue metoprolol, lisinopril, Lasix and Aldactone per Dr. Gary -Use labetalol as needed for hypertension. INR subtherapeutic the patient is on Coumadin at home. -Continue IV heparin for full anticoagulation. Resume Coumadin and pharmacy to dose -Continue aspirin. Cardiology Dr. Gary. 2D echo EF 50% -Dr. Gary recommends nuclear stress test when extubated Pulmonary: -Continue mechanical ventilation, vent bundle, bronchodilators scheduled as needed. -Failed extubation 08/16/2017, reintubated approximately after 6-8 hours -Patient may need prolonged ventilatory support and even trach due to severe emphysema -CT of the chest showed severe emphysema and pneumonia -IV Solu-Medrol, inhaled budesonide -Azactam to 2 g IV every 8 hours for Pseudomonas in sputum GI/liver: -Tube feeds with Jevity, bowel regimen. Renal/: -P.o. Lasix and Aldactone as above -Strict intake output, monitor and replete electrodes, follow BUN/creatinine. ID: -Sputum culture growing Pseudomonas, Azactam to 2 g IV every 8 hours Endocrine: -Watch for hypoglycemia, SSI for glycemic control if needed. Heme: -Follow CBC and coags. On full anticoagulation with heparin. Start Coumadin and pharmacy to dose. DC Heparin once INR is therapeutic. Prophylaxis: -Pepcid/SCDs. Full anti-coagulation with heparin. Start Coumadin and pharmacy to dose. DC Heparin once INR is therapeutic. Condition critical, failed extubation. Will need prolonged vent support and possibly trach due to severe COPD Level 3 Margarito Hernandez MD August 18, 2017 12:20
[2017-08-18] MEDS ORDERED: WARFARIN SOD 4 MG TAB PO SCH (16:00)
[2017-08-18] MEDS: HEPARIN-D5W 25,000 U/250 ML 250 ML IV PRN (19:26)
[2017-08-18] MEDS: ATORVASTATIN 40 MG TAB PO SCH (20:00)
[2017-08-19] VITALS (31 sets, daily range): BP systolic 101–133; BP diastolic 63–78; PULSE 94–127; RESP 14–46; TEMP 97.7–100.2; O2SAT 99–100
[2017-08-19] MEDS: AZTREONAM INJ 2,000 MG in SODIUM CHLORIDE 0.9% INJ 100 ML IV SCH ×3 (01:46→18:12)
[2017-08-19] MEDS: RESP: ALBUTEROL 2.5 MG/IPRATROPIUM 0.5 MG NEB (SCH) INH ×5 (03:28→20:59)
[2017-08-19] MEDS: CHLORHEXIDINE GLUCONATE 2 % 1 PACK (2 CLOTHS) TOP SCH (04:00)
[2017-08-19] MEDS: MIDAZOLAM 50 MG/NS 50 ML DRIP Premix IV PRN (04:27)
[2017-08-19] MEDS: metroNIDAZOLE 500 MG TAB OG-TUBE SCH ×3 (05:24→20:46)
[2017-08-19] MEDS: methylPREDNISolone SOD SUCC 40 MG/1 ML VIAL IV PUSH SCH ×2 (05:24→20:46)
[2017-08-19] MEDS: INSULIN ASPART SUPPLEMENTAL SCALE SQ SCH ×4 (05:27→23:47)
[2017-08-19] MEDS: PROPOFOL 1000 MG/100 ML INJ 100 ML IV PRN ×2 (05:38→15:39)
[2017-08-19 05:39] LABS: HEMATOCRIT 26.9 % (39.0-51.0); HEMOGLOBIN 8.6 GM/DL (13.0-17.0); MEAN CELL VOLUME 93.4 FL (80.0-100.0); MEAN CORPUSCULAR HEMOGLOBIN 29.9 PG (27.0-34.0); MEAN PLATELET VOLUME 9.5 FL (7.0-11.0); PLATELET COUNT 201 TH/MM3 (150-450); RED BLOOD COUNT 2.88 MIL/MM3 (4.50-5.90); RED CELL DISTRIBUTION WIDTH 17.9 % (11.6-17.2); WHITE BLOOD COUNT 11.9 TH/MM3 (4.0-11.0)
[2017-08-19] MEDS: ASPIRIN 81 MG CHEW TAB CHEW SCH (08:19)
[2017-08-19] MEDS: CHLORHEXIDINE 0.12% (ORAL KIT) 15 ML CUP MT SCH ×2 (08:19→20:45)
[2017-08-19] MEDS: FUROSEMIDE 20 MG TAB PO SCH (08:20)
[2017-08-19] MEDS: SPIRONOLACTONE 25 MG TAB PO SCH (08:20)
[2017-08-19] MEDS: FAMOTIDINE 20 MG TAB TUBE SCH ×2 (08:20→20:46)
[2017-08-19] MEDS: METOPROLOL TARTRATE 50 MG TAB PO SCH ×2 (08:21→20:46)
[2017-08-19] MEDS: LISINOPRIL 10 MG TAB PO SCH (08:21)
[2017-08-19] MEDS: SODIUM CHLORIDE 0.9% FLUSH 10 ML FLUSH IV FLUSH SCH ×2 (08:22→20:45)
--- NOTE | 2017-08-19 08:34 | PD.CARD.PN ---
Subjective Subjective Remarks Intubated. Awake. Seems to deny CP, dyspnea. Objective Medications Item Value Date Time Warfarin Sodium 4 mg 08/18/17 1600 (Coumadin) DAILY@16/PO 08/18/17 1702 Metoprolol 50 mg 08/15/17 0900 Tartrate Q12HR/PO 08/19/17 0821 (Lopressor) Lisinopril 10 mg 08/15/17 0900 (Prinivil) DAILY/PO 08/19/17 0821 Spironolactone 25 mg 08/15/17 0900 (Aldactone) DAILY/PO 08/19/17 0820 Furosemide 20 mg 08/15/17 0900 (Lasix) DAILY/PO 08/19/17 0820 Aspirin 81 mg 08/13/17 0900 (Aspirin Chew) DAILY/CHEW 08/19/17 0819 Heparin Sodium/ 250 ml @ 16 mls/hr 08/13/17 0515 Dextrose TITRATE PRN/IV 08/18/17 1926 Current Medications Medications (Trade) Dose Ordered Sig/Lindsey Route Start Time Stop Time Status Last Admin Propofol 100 ml @ 2.7 mls/hr TITRATE PRN IV 08/13/17 04:45 08/19/17 05:38 Heparin Sodium/ Dextrose 250 ml @ 16 mls/hr TITRATE PRN IV 08/13/17 05:15 08/18/17 19:26 Norepinephrine Bitartrate 250 ml @ 7.5 mls/hr TITRATE PRN IV 08/13/17 05:30 (Versed Inj) 2 mg Q10M PRN IV PUSH 08/13/17 05:30 08/13/17 06:18 (D50w (Vial) Inj) 50 ml UNSCH PRN IV PUSH 08/13/17 05:30 (Glucagon Inj) 1 mg UNSCH PRN OTHER 08/13/17 05:30 (NovoLOG SUPPLEMENTAL SCALE) 1 Q6H SQ 08/13/17 05:30 08/19/17 05:27 (Brethine Inj) 1 mg UNSCH PRN SQ 08/13/17 06:15 (NS Flush) 2 ml UNSCH PRN IV FLUSH 08/13/17 07:00 (NS Flush) 2 ml BID IV FLUSH 08/13/17 09:00 08/19/17 08:22 (Tylenol) 650 mg Q6H PRN PO 08/13/17 07:00 (Peridex 0.12% Liq) 15 ml BID@08,20 MT 08/13/17 08:00 08/19/17 08:19 (Pepcid) 20 mg BID TUBE 08/13/17 09:00 08/19/17 08:20 ([facility]) 1 Q361D XX 08/13/17 07:00 08/13/17 07:00 (Chlorhexidine 2% Cloth) Taper DAILY@04 TOP 08/14/17 04:00 08/10/18 03:59 08/19/17 04:00 (Chlorhexidine 2% Cloth) 3 pack UNSCH PRN TOP 08/13/17 07:00 Fentanyl Citrate 250 ml @ 5 mls/hr TITRATE PRN IV 08/13/17 07:00 08/15/17 17:17 (SoluMEDROL INJ) 80 mg Q8HR IV PUSH 08/13/17 14:00 08/19/17 05:24 (Aspirin Chew) 81 mg DAILY CHEW 08/13/17 09:00 08/19/17 08:19 (Flagyl) 500 mg Q8HR OG-TUBE 08/13/17 14:00 08/19/17 05:24 Midazolam HCl 50 ml @ 2 mls/hr TITRATE PRN IV 08/14/17 00:30 08/19/17 04:27 Potassium Chloride 100 ml @ 50 mls/hr Q2H PRN IV 08/14/17 04:15 Potassium Chloride 100 ml @ 50 mls/hr Q2H PRN IV 08/14/17 04:15 08/18/17 23:31 (K-Lyte Cl Eff) 50 meq UNSCH PRN PO 08/14/17 04:15 Potassium Chloride 100 ml @ 25 mls/hr UNSCH PRN IV 08/14/17 04:15 Potassium Chloride 100 ml @ 50 mls/hr Q2H PRN IV 08/14/17 04:15 08/16/17 06:30 Magnesium Sulfate 4 gm/Sodium Chloride 100 ml @ 50 mls/hr UNSCH PRN IV 08/14/17 04:15 (Mag-Ox) 800 mg UNSCH PRN PO 08/14/17 04:15 Magnesium Sulfate 2 gm/Sodium Chloride 100 ml @ 50 mls/hr UNSCH PRN IV 08/14/17 04:15 08/14/17 09:02 (K-Phos) 2,000 mg Q4H PRN PO 08/14/17 04:15 Sodium Phosphate 30 mmol/Sodium Chloride 250 ml @ 42 mls/hr UNSCH PRN IV 08/14/17 04:15 (K-Phos) 2,000 mg UNSCH PRN PO/TUBE 08/14/17 04:15 Potassium Phosphate 30 mmol/ Sodium Chloride 260 ml @ 42 mls/hr UNSCH PRN IV 08/14/17 04:15 (Pulmicort Respule Neb) 0.5 mg Q12HR NEB NEB 08/14/17 14:00 08/18/17 20:26 (Lopressor) 50 mg Q12HR PO 08/15/17 09:00 08/19/17 08:21 (Prinivil) 10 mg DAILY PO 08/15/17 09:00 08/19/17 08:21 (Aldactone) 25 mg DAILY PO 08/15/17 09:00 08/19/17 08:20 (Lasix) 20 mg DAILY PO 08/15/17 09:00 08/19/17 08:20 (Lipitor) 40 mg HS PO 08/15/17 21:00 08/18/17 20:00 Aztreonam 2000 mg/ Sodium Chloride 100 ml @ 200 mls/hr Q8H IV 08/15/17 10:00 08/19/17 01:46 Dexmedetomidine HCl 200 mcg/ Sodium Chloride 52 ml @ 4.21 mls/hr TITRATE PRN IV 08/16/17 18:00 Dopamine HCl/ Dextrose 500 ml @ 8.494 mls/ hr TITRATE PRN IV 08/17/17 12:30 (Brethine Inj) 1 mg UNSCH PRN SQ 08/17/17 12:30 (Duoneb Neb) 1 ampule Q4HR NEB INH 08/18/17 12:00 08/19/17 03:28 (Coumadin) 4 mg DAILY@16 PO 08/18/17 16:00 08/18/17 17:02 Vital Signs / I&O Vital Signs Date Time Temp Pulse Resp B/P (MAP) Pulse Ox O2 Delivery O2 Flow Rate FiO2 08/19/17 06:00 111 08/19/17 04:00 99.1 110 46 105/66 (79) 100 08/19/17 04:00 110 08/19/17 04:00 40 08/19/17 03:29 99 40 08/19/17 02:00 113 08/19/17 00:00 98.5 112 41 133/75 (94) 100 08/19/17 00:00 112 08/19/17 00:00 40 08/18/17 23:12 100 40 08/18/17 22:00 82 08/18/17 20:28 100 40 08/18/17 20:00 40 08/18/17 20:00 98.2 100 42 144/82 (102) 100 08/18/17 20:00 100 08/18/17 18:00 93 08/18/17 16:00 87 08/18/17 16:00 90 08/18/17 16:00 40 08/18/17 16:00 99.0 90 39 134/77 (96) 100 08/18/17 15:52 100 40 08/18/17 14:00 87 08/18/17 12:00 98.6 83 23 139/81 (100) 99 08/18/17 12:00 40 08/18/17 12:00 83 08/18/17 11:51 40 08/18/17 11:51 98 40 08/18/17 10:00 89 I/O 08/18/17 08/18/17 08/18/17 08/19/17 08/19/17 08/19/17 07:00 15:00 23:00 07:00 15:00 23:00 Intake Total 1482 ml 664 ml 979 ml 1020 ml Output Total 600 ml 0 ml 1250 ml 1000 ml Balance 882 ml 664 ml -271 ml 20 ml Intake Oral 0 ml IV Total 1225 ml 664 ml 440 ml 473 ml Tube Feeding 257 ml 539 ml 547 ml Output Urine Total 600 ml 1250 ml 1000 ml Stool Total 0 ml 0 ml Tube Feeding Residual Discard 0 ml # Bowel Movements 0 3 0 Physical Exam GENERAL: Well developed, well nourished. Intubated. HEENT: Jugular venous pressure is normal. CHEST: Lungs clear to auscultation anteriorly. CARDIAC: Regular rate and rhythm without S3, S4, or murmur. ABDOMEN: Soft, no hepatosplenomegaly. Bowel sounds present. EXTREMITIES: No clubbing, cyanosis, or edema on the right. Status post left BKA. Laboratory Laboratory Tests Test 08/19/17 04:15 White Blood Count 11.9 TH/MM3 Red Blood Count 2.88 MIL/MM3 Hemoglobin 8.6 GM/DL Hematocrit 26.9 % Mean Corpuscular Volume 93.4 FL Mean Corpuscular Hemoglobin 29.9 PG Mean Corpuscular Hemoglobin Concent 32.0 % Red Cell Distribution Width 17.9 % Platelet Count 201 TH/MM3 Mean Platelet Volume 9.5 FL Activated Partial Thromboplast Time 54.2 SEC Potassium Level 4.0 MEQ/L Assessment and Plan Problem List: (1) CAD (coronary artery disease) ICD Codes: I25.10 - Coronary artery disease Status: Chronic Plan: Stable CAD status. No definite angina symptoms. CK's negative for MT. Echo technically limited, appears to have normal LV function, EF about 55%. May also have right ventricular hypertrophy with normal RV function. REC continue beta allyn, JOSEFINA-I continue aspirin, heparin nuclear stress test when extubated and respiratory status stabilized will f/u periodically (2) Cardiomyopathy ICD Codes: I42.9 - Cardiomyopathy, unspecified Status: Resolved Plan: Prior history of EF 25%. Last available echo 01/2015 EF 55%. No definite acute CHF. Echo this admission technically limited, appears to have normal LV function, EF about 55%. (3) Paroxysmal atrial fibrillation ICD Codes: I48.0 - Paroxysmal atrial fibrillation Status: Chronic Plan: Poorly documented history of paroxysmal atrial fib. Remains in NSR. Continue heparin drip for now. Back on warfarin, INR pending. (4) Hypertension ICD Codes: I10 - Hypertension Status: Chronic Plan: Fluctuating BP's, mostly normotensive. Code Status full code Problem Qualifiers (1) CAD (coronary artery disease): Qualified Codes: I25.119 - Atherosclerotic heart disease of [place] coronary artery with unspecified angina pectoris (2) Cardiomyopathy: Qualified Codes: I42.9 - Cardiomyopathy, unspecified (3) Hypertension: Qualified Codes: I10 - Essential (primary) hypertension Rich Gary MD August 19, 2017 08:34
[2017-08-19] MEDS: RESP: BUDESONIDE 0.5 MG/2 ML NEB NEB SCH ×2 (08:38→20:59)
--- NOTE | 2017-08-19 09:26 | HHI.CCPN ---
Subjective Remarks/Hospital Course 66-year-old male who was brought to the ER after he developed shortness of breath and altered mental status. At long term he was placed on nasal cannula 2 L because of his history of COPD as he uses it off and on. EMS was called when patient developed agonal respirations with O2 sats in the low 80s on their arrival with pink frothy sputum. Patient was intubated in the field after receiving etomidate and Versed. His systolic blood pressure was 190s following intubation and dropped to the 60 systolic range and he was started on dopamine in the field by EMS. He was brought to the ER at [place] and noted to have elevated troponin on his admitting labs. He was accepted for admission by critical care medicine service. He underwent a CT chest to evaluate for PE which was negative for PE however did show severe emphysematous changes with groundglass opacities. History is significantly limited by the fact that he is intubated. When I evaluated the patient he was sedated, orally intubated on mechanical ventilation. History was obtained by reviewing records. SUBJ 08/14/17: Remains intubated sedated, a CPAP was attempted but patient failed almost immediately with severe tachypnea. Continues to have bilateral expiratory wheezing and diminished air entry. Initial troponin was 3.18 now down trending 08/15/17: Patient remains intubated sedated with Versed and fentanyl. On sedation hold wakes up easily follows commands. On attempted CPAP patient became tachypneic with labored breathing using accessory muscles. Not ready for extubation. Pseudomonas growing in sputum. Increase Azactam to 2 g IV every 8 hours 08/16/17: Tolerating CPAP trials better today. Sputum culture growing Pseudomonas pansensitive. Will attempt to extubate with BiPAP use if needed 08/17/17: Reintubated yesterday evening following severe respiratory distress and severe wheezing. Currently remains sedated on vent support. Persistent wheezing. 08/18: Remains intubated sedated. Will initiate CPAP trials again. Patient has severe emphysema and will be difficult to wean to extubate. Wheezing persists. 08/19: Remains sedated, orally intubated on mechanical ventilation. Significant bloody respiratory secretions being suctioned from ET tube. On heparin for anticoagulation. Will hold Coumadin. Objective Vital Signs Date Time Temp Pulse Resp B/P (MAP) Pulse Ox O2 Delivery O2 Flow Rate FiO2 08/19/17 06:00 111 08/19/17 04:00 99.1 46 105/66 (79) 100 08/19/17 04:00 40 08/16/17 09:40 BiPAP/CPAP Intake and Output 08/19/17 08/19/17 08/20/17 08:00 16:00 00:00 Intake Total 1020 ml Output Total 1000 ml Balance 20 ml Result Diagram: 08/19/17 0415 08/19/17 0415 Imaging Last Impressions Chest X-Ray 08/13/17 0414 Signed Impressions: Service Date/Time: Sunday, August 13, 2017 04:28 - CONCLUSION: Lungs are grossly clear. ET tube in good position. Abel Cannon MD CT Angiography 08/13/17 0000 Signed Impressions: Service Date/Time: Sunday, August 13, 2017 07:25 - CONCLUSION: 1. No CT evidence for pulmonary embolism as questioned. 2. Moderate to severe upper lobe predominant centrilobular emphysema. 3. Patchy bibasilar groundglass opacities likely reflecting atelectasis although differential considerations include aspiration. 4. Multiple 4-6mm bilateral groundglass and solid nodules, likely infectious/inflammatory. Recommend followup CT examination in approximately 6 months per 2017 Fleischner criteria (6mm nodule). Steve Barajas MD Objective Remarks GEN: Sedated and intubated male HEENT: Pallor present, no icterus, tongue/ mucosa dry. Orotracheally intubated Neck: No JVD Chest/Pulm: on mech vent, decreased air entry bilaterally. Scattered rhonchi, no wheezing CVS: S1-S2 regular, no murmur GI/abdomen: soft, nontender, bowel sounds sluggish Extremities: warm bilaterally, no edema. Left lower extremity status post BKA noted Neuro: Sedated, orally intubated, on sedation hold wakes up easily follows commands no focal deficits. A/P Assessment and Plan Assessment: Acute on chronic respiratory failure on mechanical ventilation Acute COPD exacerbation NSTEMI Pseudomonas pneumonia Advanced COPD/emphysema CAD History of cardiomyopathy Diabetes Hyperlipidemia Hypertension Paroxysmal atrial fibrillation. Peripheral vascular disease Plan: Neuro: -Sedation with Versed/fentanyl gtt. Daily sedation vacation. Follow neuro status. Cardiovascular: -Continue metoprolol, lisinopril, Lasix and Aldactone per Dr. Gary -Use labetalol as needed for hypertension. INR subtherapeutic the patient is on Coumadin at home. -Continue IV heparin for full anticoagulation. Resume Coumadin and pharmacy to dose -Continue aspirin. Cardiology Dr. Gary. 2D echo EF 50% -Dr. Gary recommends nuclear stress test when extubated Pulmonary: -Continue mechanical ventilation, vent bundle, bronchodilators scheduled as needed. -Failed extubation 08/16/2017, reintubated approximately after 6-8 hours -Patient may need prolonged ventilatory support and even trach due to severe emphysema -CT of the chest showed severe emphysema and pneumonia -IV Solu-Medrol, inhaled budesonide -Azactam to 2 g IV every 8 hours for Pseudomonas in sputum GI/liver: -Tube feeds with Jevity, bowel regimen. Renal/: -P.o. Lasix and Aldactone as above -Strict intake output, monitor and replete electrodes, follow BUN/creatinine. ID: -Sputum culture growing Pseudomonas, Azactam 2 g IV every 8 hours Endocrine: -Watch for hypoglycemia, SSI for glycemic control if needed. Heme: -Follow CBC and coags. On full anticoagulation with heparin. Start Coumadin and pharmacy to dose. DC Heparin once INR is therapeutic. Prophylaxis: -Pepcid/SCDs. Full anti-coagulation with heparin. Start Coumadin and pharmacy to dose. DC Heparin once INR is therapeutic. Condition critical, failed extubation. Will need prolonged vent support and possibly trach due to severe COPD Level 3 Lester Crawford MD August 19, 2017 09:26
[2017-08-19] MEDS: INSULIN DETEMIR 100 UNITS/ML VIAL SQ SCH ×2 (10:30→20:46)
[2017-08-19] MEDS: ATORVASTATIN 40 MG TAB PO SCH (20:46)
[2017-08-20] VITALS (32 sets, daily range): BP systolic 105–132; BP diastolic 61–79; PULSE 88–111; RESP 14–34; TEMP 97.6–99.8; O2SAT 100
[2017-08-20] MEDS: RESP: ALBUTEROL 2.5 MG/IPRATROPIUM 0.5 MG NEB (SCH) INH ×6 (00:26→20:17)
[2017-08-20] MEDS: AZTREONAM INJ 2,000 MG in SODIUM CHLORIDE 0.9% INJ 100 ML IV SCH ×2 (02:10→10:31)
[2017-08-20] MEDS: CHLORHEXIDINE GLUCONATE 2 % 1 PACK (2 CLOTHS) TOP SCH (02:10)
[2017-08-20] MEDS: MIDAZOLAM 50 MG/NS 50 ML DRIP Premix IV PRN (02:11)
[2017-08-20] MEDS: INSULIN ASPART SUPPLEMENTAL SCALE SQ SCH ×3 (06:03→17:00)
[2017-08-20] MEDS: PROPOFOL 1000 MG/100 ML INJ 100 ML IV PRN ×2 (06:03→16:59)
[2017-08-20] MEDS: metroNIDAZOLE 500 MG TAB OG-TUBE SCH ×2 (06:03→14:07)
[2017-08-20] MEDS: RESP: BUDESONIDE 0.5 MG/2 ML NEB NEB SCH ×2 (07:55→20:17)
[2017-08-20 08:43] LABS: AUTOMATED NEUTROPHIL # 19.3 TH/MM3 (1.8-7.7); HEMOGLOBIN 8.4 GM/DL (13.0-17.0); LYMPH % 3.3 % (9.0-44.0); LYMPHOCYTE # 0.7 TH/MM3 (1.0-4.8); MEAN CELL VOLUME 93.6 FL (80.0-100.0); MEAN CORPUSCULAR HEMOGLOBIN 29.3 PG (27.0-34.0); MEAN CORPUSCULAR HGB CONC 31.3 % (32.0-36.0); MEAN PLATELET VOLUME 9.8 FL (7.0-11.0); MONO % 5.1 % (0.0-8.0); MONOCYTE # 1.1 TH/MM3 (0-0.9); NEUT % 91.6 % (16.0-70.0); PLATELET COUNT 208 TH/MM3 (150-450); RED BLOOD COUNT 2.88 MIL/MM3 (4.50-5.90); RED CELL DISTRIBUTION WIDTH 18.8 % (11.6-17.2); WHITE BLOOD COUNT 21.1 TH/MM3 (4.0-11.0)
[2017-08-20] MEDS: METOPROLOL TARTRATE 50 MG TAB PO SCH ×2 (08:44→20:05)
[2017-08-20] MEDS: methylPREDNISolone SOD SUCC 40 MG/1 ML VIAL IV PUSH SCH ×2 (08:45→20:05)
[2017-08-20] MEDS: SPIRONOLACTONE 25 MG TAB PO SCH (08:45)
[2017-08-20] MEDS: ASPIRIN 81 MG CHEW TAB CHEW SCH ×2 (08:45→14:08)
[2017-08-20] MEDS: SODIUM CHLORIDE 0.9% FLUSH 10 ML FLUSH IV FLUSH SCH ×2 (08:45→20:06)
[2017-08-20] MEDS: FUROSEMIDE 20 MG TAB PO SCH (08:45)
[2017-08-20] MEDS: LISINOPRIL 10 MG TAB PO SCH (08:45)
[2017-08-20] MEDS: FAMOTIDINE 20 MG TAB TUBE SCH ×2 (08:45→20:05)
[2017-08-20] MEDS: CHLORHEXIDINE 0.12% (ORAL KIT) 15 ML CUP MT SCH ×2 (08:46→20:06)
[2017-08-20 08:48] LABS: BLOOD UREA NITROGEN 51 MG/DL (7-18); CREATININE 0.86 MG/DL (0.60-1.30); GLOMERULAR FILTRATION RATE 89 ML/MIN (>89)
[2017-08-20 08:49] LABS: ALBUMIN 1.9 GM/DL (3.4-5.0); ALKALINE PHOSPHATASE 66 U/L (45-117); ALT (GPT) 19 U/L (12-78); AST (GOT) 20 U/L (15-37); BICARBONATE 34.8 MEQ/L (21.0-32.0); CALCIUM 8.2 MG/DL (8.5-10.1); CHLORIDE 111 MEQ/L (98-107); GLUCOSE,RANDOM 392 MG/DL (74-106); SODIUM (NA) 152 MEQ/L (136-145); TOTAL BILIRUBIN ADULT 0.2 MG/DL (0.2-1.0); TOTAL PROTEIN 5.1 GM/DL (6.4-8.2)
--- NOTE | 2017-08-20 09:17 | HHI.CCPN ---
Subjective Remarks/Hospital Course 66-year-old male who was brought to the ER after he developed shortness of breath and altered mental status. At halfway he was placed on nasal cannula 2 L because of his history of COPD as he uses it off and on. EMS was called when patient developed agonal respirations with O2 sats in the low 80s on their arrival with pink frothy sputum. Patient was intubated in the field after receiving etomidate and Versed. His systolic blood pressure was 190s following intubation and dropped to the 60 systolic range and he was started on dopamine in the field by EMS. He was brought to the ER at [place] and noted to have elevated troponin on his admitting labs. He was accepted for admission by critical care medicine service. He underwent a CT chest to evaluate for PE which was negative for PE however did show severe emphysematous changes with groundglass opacities. History is significantly limited by the fact that he is intubated. When I evaluated the patient he was sedated, orally intubated on mechanical ventilation. History was obtained by reviewing records. SUBJ 08/14/17: Remains intubated sedated, a CPAP was attempted but patient failed almost immediately with severe tachypnea. Continues to have bilateral expiratory wheezing and diminished air entry. Initial troponin was 3.18 now down trending 08/15/17: Patient remains intubated sedated with Versed and fentanyl. On sedation hold wakes up easily follows commands. On attempted CPAP patient became tachypneic with labored breathing using accessory muscles. Not ready for extubation. Pseudomonas growing in sputum. Increase Azactam to 2 g IV every 8 hours 08/16/17: Tolerating CPAP trials better today. Sputum culture growing Pseudomonas pansensitive. Will attempt to extubate with BiPAP use if needed 08/17/17: Reintubated yesterday evening following severe respiratory distress and severe wheezing. Currently remains sedated on vent support. Persistent wheezing. 08/18: Remains intubated sedated. Will initiate CPAP trials again. Patient has severe emphysema and will be difficult to wean to extubate. Wheezing persists. 08/19: Remains sedated, orally intubated on mechanical ventilation. Significant bloody respiratory secretions being suctioned from ET tube. On heparin for anticoagulation. Will hold Coumadin. 08/20: Sedated, arousable, orally intubated on mechanical ventilation. Failing CPAP trials. Heparin held yesterday due to increasing bloody respiratory secretions. Objective Vital Signs Date Time Temp Pulse Resp B/P (MAP) Pulse Ox O2 Delivery O2 Flow Rate FiO2 08/20/17 08:00 99.7 106 19 131/77 (95) 100 08/20/17 08:00 40 08/16/17 09:40 BiPAP/CPAP Intake and Output 08/20/17 08/20/17 08/21/17 08:00 16:00 00:00 Intake Total 871.1 ml Output Total 1000 ml Balance -128.9 ml Result Diagram: 08/20/17 0816 08/20/17 0332 Imaging Last Impressions Chest X-Ray 08/13/17 0414 Signed Impressions: Service Date/Time: Sunday, August 13, 2017 04:28 - CONCLUSION: Lungs are grossly clear. ET tube in good position. Abel Cannon MD CT Angiography 08/13/17 0000 Signed Impressions: Service Date/Time: Sunday, August 13, 2017 07:25 - CONCLUSION: 1. No CT evidence for pulmonary embolism as questioned. 2. Moderate to severe upper lobe predominant centrilobular emphysema. 3. Patchy bibasilar groundglass opacities likely reflecting atelectasis although differential considerations include aspiration. 4. Multiple 4-6mm bilateral groundglass and solid nodules, likely infectious/inflammatory. Recommend followup CT examination in approximately 6 months per 2017 Fleischner criteria (6mm nodule). Steve Barajas MD Objective Remarks GEN: Sedated and intubated male HEENT: Pallor present, no icterus, tongue/ mucosa dry. Orotracheally intubated Neck: No JVD Chest/Pulm: on mech vent, decreased air entry bilaterally. Scattered rhonchi, no wheezing CVS: S1-S2 regular, no murmur GI/abdomen: soft, nontender, bowel sounds sluggish Extremities: warm bilaterally, no edema. Left lower extremity status post BKA noted Neuro: Sedated, orally intubated, on sedation hold wakes up easily follows commands no focal deficits. A/P Assessment and Plan Assessment: Acute on chronic respiratory failure on mechanical ventilation Acute COPD exacerbation NSTEMI Pseudomonas pneumonia Advanced COPD/emphysema CAD History of cardiomyopathy Diabetes Hyperlipidemia Hypertension Paroxysmal atrial fibrillation. Peripheral vascular disease Plan: Neuro: -Sedation with Versed/fentanyl gtt. Daily sedation vacation. Follow neuro status. Cardiovascular: -Continue metoprolol, lisinopril, Lasix and Aldactone per Dr. Gary -Use labetalol as needed for hypertension. INR subtherapeutic the patient is on Coumadin at home. -Holding heparin and Coumadin since 08/19 in view of hemoptysis currently. -Continue aspirin. Cardiology Dr. Gary. 2D echo EF 50% -Dr. Gary recommends nuclear stress test when extubated Pulmonary: -Continue mechanical ventilation, vent bundle, bronchodilators scheduled as needed. -Failed extubation 08/16/2017, reintubated approximately after 6-8 hours -Patient may need prolonged ventilatory support and even trach due to severe emphysema -CT of the chest showed severe emphysema and pneumonia -IV Solu-Medrol, inhaled budesonide -Azactam to 2 g IV every 8 hours for Pseudomonas in sputum GI/liver: -Tube feeds with Jevity, bowel regimen. Renal/: -P.o. Lasix and Aldactone as above -Strict intake output, monitor and replete electrodes, follow BUN/creatinine. ID: -Sputum culture growing Pseudomonas, Azactam 2 g IV every 8 hours. ID consult requested Endocrine: -Watch for hypoglycemia, SSI for glycemic control if needed. Heme: -Follow CBC and coags. Holding heparin and Coumadin in view of hemoptysis. Prophylaxis: -Pepcid/SCDs. We will start Lovenox 40 mg subcutaneously daily as anticoagulation held due to hemoptysis and will continue prophylactic dose provided hemoptysis does not recur or worsen Condition critical, failed extubation. Will need prolonged vent support and possibly trach due to severe COPD Level 3 Lester Crawford MD August 20, 2017 09:17
[2017-08-20 09:29] LABS: BANDS 2 % (0-6); CORRECTED NUCLEATED RBC 2 /100 WBC (0-0); LYMPHOCYTES 7 % (9-44); METAMYELOCYTES 1 % (0-1); MONOCYTES 4 % (0-8); MYELOCYTES 1 % (0-0); NEUTROPHIL # MANUAL DIFF 18.8 TH/MM3 (1.8-7.7); NUCLEATED RED BLOOD CELL 2 (0-0); POLYS (SEG NEUTROPHILS) 85 % (16-70); TOXIC GRANULATION 2+ (NORMAL)
[2017-08-20] MEDS: ENOXAPARIN SODIUM 40 MG/0.4 ML SYRINGE SQ SCH (10:32)
--- NOTE | 2017-08-20 11:00 | PD.ID.CON ---
History of Present Illness Service ID Consult Requested By Reason for Consult Evaluation and Mment of SIRS, new fevers and Pseudomonas pneumonia. Primary Care Physician Unknown Diagnoses: History of Present Illness Most of the history was obtained by review of medical records. Patient is intubated. Mr. Salcedo is a 66-year-old male with past medical history of nonischemic cardiomyopathy with EF 25%,, diabetes mellitus, peripheral vascular disease status post left below-knee amputation in the past. With this background patient presents to the emergency department with acute onset of shortness of breath and altered mental status. Patient was reportedly at the custodial and his O2 sats dropped and given his history of COPD EMS was called when EMS saw the patient he developed agonal breathing with O2 sats in the low 80s and pink frothy sputum. Patient was intubated in the field. Patient's blood pressure following intubation dropped from systolic in 190s-60s systolic and patient was started on dopamine in the field by EMS. Patient was admitted to critical care services and underwent sepsis workup. Patient also underwent a CT chest to evaluate for PE which was negative. However it did show severe emphysematous changes with groundglass opacities. Patient has been started on aztreonam IV due to his history of rash to cefaclor. Clinically patient appears to be doing better and his chest x-ray has improved. RN reports that he continues to have some bloody secretions and there was a blood clot noted yesterday. But no active bleeding noted. Concern for possible ongoing aspiration given bleeding. At the time of my evaluation patient is in the ICU currently intubated. Patient underwent CPAP trial but failed. Respiratory therapist notes blood tinged secretions. Urine output okay Patient has had fevers as well as leukocytosis despite steroids being tapered off. Infectious disease consulted for evaluation and management of new fevers as well as increasing leukocytosis despite decreasing steroids. And also concern for Pseudomonas pneumonia. Review of Systems ROS Limitations: Intubated Past Family Social History Allergies: Coded Allergies: cefaclor (Verified Allergy, Intermediate, rash, 06/28/17) Past Medical History Per review of records Nonischemic cardiomyopathy with EF of 25% on July 2014 cardiac cath report. EF of 60% on January 2015 echo. History of acalculous cholecystitis status post biliary drain placement and subsequent cholecystectomy. Severe COPD Coronary artery disease status post coronary artery bypass in March 2014. Diabetes mellitus Hyperlipidemia Hypertension Paroxysmal atrial fibrillation Peripheral vascular disease status post left external iliac stent, bilateral femoral endarterectomies, bilateral profundoplasty, femorofemoral and aortobifemoral bypasses on May 07, 2014 as well as status post left femoral anterior tibial bypass and amputation of the left first and second toes in April 2016. Thereafter patient underwent a left below-knee amputation in May 01, 2016. Past Surgical History Per review of records Cardiac cath Coronary artery bypass graft in March 2014 Peripheral vascular disease with multiple bypasses in the lower extremities. Left below-knee amputation Reported Medications Reported Meds & Active Scripts Active Sodium Chloride 1 Gram Tab 1 Gm PO DAILY Prednisone 20 Mg Tab 20 Mg PO BID Hydrocodone-Acetamin 10-325 mg (Hydrocodone/Acetaminophen) 10 Mg-325 Mg Tablet 1 Tab PO Q6HR PRN Levaquin (Levofloxacin) 750 Mg Tablet 750 Mg PO DAILY Metoprolol Tartrate 50 Mg Tab 50 Mg PO BID Coumadin (Warfarin) 4 Mg Tab 4 Mg PO DAILY@16 Oxygen tank (Oxygen) 1 Ea Tank Liter [employer]ANNAH[employer] Products CONTINUOUS Oxygen Concentrator Portable Gaseous 2 L/min via Nasal Cannula Continuous For 99 months Atorvastatin (Atorvastatin Calcium) 40 Mg Tab 40 Mg PO HS Protonix (Pantoprazole Sodium) 40 Mg Tab 40 Mg PO DAILY Duoneb (Ipratropium-Albuterol Neb) 0.5-2.5 Mg/3 Ml Neb 1 Ampule NEB Q6HR PRN Glucophage (Metformin HCl) 500 Mg Tab 500 Mg PO BIDPC With meals Ventolin Hfa 18 GM Inh (Albuterol Sulfate) 90 Mcg/Act Aer 2 Puff INH Q4-6H PRN Gabapentin 800 Mg Tab 800 Mg PO TID Symbicort Inh (Budesonide/Formoterol Fumarate) 160-4.5 Mcg/Act Aero 2 Puff INH Q12HR Thera M Plus (Multivitamins/Minerals Therapeutic) 1 Tab 1 Tab PO DAILY Bedside Commode (Device) 1 Mis Mis 1 Ea .ROUTE DIRECTED Walker Rolling/GetGo (Device) 1 Mis Mis 1 Ea .ROUTE DIRECTED Reported Vitamin B-1 (Thiamine HCl) 100 Mg Tab 100 Mg PO DAILY Active Ordered Medications Current Medications Medications (Trade) Dose Ordered Sig/Lindsey Route Start Time Stop Time Status Last Admin Propofol 100 ml @ 2.7 mls/hr TITRATE PRN IV 08/13/17 04:45 08/20/17 06:03 Heparin Sodium/ Dextrose 250 ml @ 16 mls/hr TITRATE PRN IV 08/13/17 05:15 Future Hold 08/18/17 19:26 Norepinephrine Bitartrate 250 ml @ 7.5 mls/hr TITRATE PRN IV 08/13/17 05:30 (Versed Inj) 2 mg Q10M PRN IV PUSH 08/13/17 05:30 08/13/17 06:18 (D50w (Vial) Inj) 50 ml UNSCH PRN IV PUSH 08/13/17 05:30 (Glucagon Inj) 1 mg UNSCH PRN OTHER 08/13/17 05:30 (NovoLOG SUPPLEMENTAL SCALE) 1 Q6H SQ 08/13/17 05:30 08/20/17 10:31 (Brethine Inj) 1 mg UNSCH PRN SQ 08/13/17 06:15 (NS Flush) 2 ml UNSCH PRN IV FLUSH 08/13/17 07:00 (NS Flush) 2 ml BID IV FLUSH 08/13/17 09:00 08/20/17 08:45 (Tylenol) 650 mg Q6H PRN PO 08/13/17 07:00 (Peridex 0.12% Liq) 15 ml BID@08,20 MT 08/13/17 08:00 08/20/17 08:46 (Pepcid) 20 mg BID TUBE 08/13/17 09:00 08/20/17 08:45 ([facility] [facility] 1 Q361D XX 08/13/17 07:00 08/13/17 07:00 (Chlorhexidine 2% Cloth) Taper DAILY@04 TOP 08/14/17 04:00 08/10/18 03:59 08/19/17 04:00 (Chlorhexidine 2% Cloth) 3 pack UNSCH PRN TOP 08/13/17 07:00 Fentanyl Citrate 250 ml @ 5 mls/hr TITRATE PRN IV 08/13/17 07:00 08/15/17 17:17 (Aspirin Chew) 81 mg DAILY CHEW 08/13/17 09:00 08/19/17 08:19 (Flagyl) 500 mg Q8HR OG-TUBE 08/13/17 14:00 08/20/17 06:03 Midazolam HCl 50 ml @ 2 mls/hr TITRATE PRN IV 08/14/17 00:30 08/20/17 02:11 Potassium Chloride 100 ml @ 50 mls/hr Q2H PRN IV 08/14/17 04:15 Potassium Chloride 100 ml @ 50 mls/hr Q2H PRN IV 08/14/17 04:15 08/18/17 23:31 (K-Lyte Cl Eff) 50 meq UNSCH PRN PO 08/14/17 04:15 Potassium Chloride 100 ml @ 25 mls/hr UNSCH PRN IV 08/14/17 04:15 Potassium Chloride 100 ml @ 50 mls/hr Q2H PRN IV 08/14/17 04:15 08/16/17 06:30 Magnesium Sulfate 4 gm/Sodium Chloride 100 ml @ 50 mls/hr UNSCH PRN IV 08/14/17 04:15 (Mag-Ox) 800 mg UNSCH PRN PO 08/14/17 04:15 Magnesium Sulfate 2 gm/Sodium Chloride 100 ml @ 50 mls/hr UNSCH PRN IV 08/14/17 04:15 08/14/17 09:02 (K-Phos) 2,000 mg Q4H PRN PO 08/14/17 04:15 Sodium Phosphate 30 mmol/Sodium Chloride 250 ml @ 42 mls/hr UNSCH PRN IV 08/14/17 04:15 (K-Phos) 2,000 mg UNSCH PRN PO/TUBE 08/14/17 04:15 Potassium Phosphate 30 mmol/ Sodium Chloride 260 ml @ 42 mls/hr UNSCH PRN IV 08/14/17 04:15 (Pulmicort Respule Neb) 0.5 mg Q12HR NEB NEB 08/14/17 14:00 08/20/17 07:55 (Lopressor) 50 mg Q12HR PO 08/15/17 09:00 08/20/17 08:44 (Prinivil) 10 mg DAILY PO 08/15/17 09:00 08/20/17 08:45 (Aldactone) 25 mg DAILY PO 08/15/17 09:00 08/20/17 08:45 (Lasix) 20 mg DAILY PO 08/15/17 09:00 08/20/17 08:45 (Lipitor) 40 mg HS PO 08/15/17 21:00 08/19/17 20:46 Aztreonam 2000 mg/ Sodium Chloride 100 ml @ 200 mls/hr Q8H IV 08/15/17 10:00 08/20/17 10:31 Dexmedetomidine HCl 200 mcg/ Sodium Chloride 52 ml @ 4.21 mls/hr TITRATE PRN IV 08/16/17 18:00 Dopamine HCl/ Dextrose 500 ml @ 8.494 mls/ hr TITRATE PRN IV 08/17/17 12:30 (Brethine Inj) 1 mg UNSCH PRN SQ 08/17/17 12:30 (Duoneb Neb) 1 ampule Q4HR NEB INH 08/18/17 12:00 08/20/17 07:55 (Coumadin) 4 mg DAILY@16 PO 08/18/17 16:00 Future Hold 08/18/17 17:02 (SoluMEDROL INJ) 80 mg Q12HR IV PUSH 08/19/17 21:00 08/20/17 08:45 (Levemir Inj) 60 units Q12HR SQ 08/20/17 21:00 (Lovenox Inj) 40 mg Q24H SQ 08/20/17 10:00 08/20/17 10:32 Family History Could not be obtained. Social History This patient smokes a pack of cigarettes per day. There is no history of alcohol abuse. Physical Exam Vital Signs Vital Signs Date Time Temp Pulse Resp B/P (MAP) Pulse Ox O2 Delivery O2 Flow Rate FiO2 08/20/17 10:50 40 08/20/17 10:50 100 40 08/20/17 10:00 88 08/20/17 08:00 106 08/20/17 08:00 99.7 106 19 131/77 (95) 100 08/20/17 08:00 40 08/20/17 07:58 100 40 08/20/17 06:00 101 08/20/17 04:00 40 08/20/17 04:00 99 08/20/17 04:00 99.8 99 14 109/63 (78) 100 08/20/17 03:45 102 18 117/64 (81) 100 08/20/17 03:44 100 40 08/20/17 03:30 103 15 132/64 (86) 100 08/20/17 03:15 101 21 111/65 (80) 100 08/20/17 03:00 96 18 110/62 (78) 100 08/20/17 02:45 101 15 109/66 (80) 100 08/20/17 02:30 100 18 105/64 (78) 100 08/20/17 02:15 99 19 105/65 (78) 100 08/20/17 02:00 100 16 111/65 (80) 100 08/20/17 02:00 100 08/20/17 01:45 98 17 107/64 (78) 100 08/20/17 01:30 102 18 111/62 (78) 100 08/20/17 01:15 98 18 107/61 (76) 100 08/20/17 01:00 102 16 112/61 (78) 100 08/20/17 00:17 100 40 08/20/17 00:00 99.4 96 27 107/65 (79) 100 08/20/17 00:00 40 08/20/17 00:00 96 08/19/17 23:45 97 14 113/73 (86) 100 08/19/17 23:30 95 20 104/63 (77) 100 08/19/17 23:15 95 21 103/65 (78) 100 08/19/17 23:00 95 18 119/72 (88) 100 08/19/17 22:00 94 08/19/17 22:00 94 24 120/74 (89) 100 08/19/17 21:45 101 17 119/70 (86) 100 08/19/17 21:30 105 19 112/71 (85) 100 08/19/17 21:15 113 16 113/74 (87) 100 08/19/17 21:00 121 23 108/74 (85) 100 08/19/17 21:00 100 40 08/19/17 20:45 122 18 105/65 (78) 100 08/19/17 20:30 123 18 112/67 (82) 100 08/19/17 20:15 120 20 123/72 (89) 100 08/19/17 20:00 121 08/19/17 20:00 40 08/19/17 20:00 100.2 121 17 119/76 (90) 100 08/19/17 19:45 122 20 116/75 (89) 100 08/19/17 19:30 121 14 113/71 (85) 100 5/14/18 19:15 123 15 128/78 (95) 100 08/19/17 19:00 118 14 116/74 (88) 100 08/19/17 18:00 115 08/19/17 16:30 100 40 08/19/17 16:30 97.9 115 14 109/64 (79) 100 08/19/17 16:00 112 08/19/17 16:00 40 08/19/17 14:00 127 08/19/17 12:28 100 40 08/19/17 12:00 109 08/19/17 12:00 98.0 109 33 117/68 (84) 100 08/19/17 12:00 40 Physical Exam GENERAL: This is a well-nourished, well-developed patient, in no apparent distress. SKIN: No rashes, ecchymoses or lesions. Cool and dry. HEAD: Atraumatic. Normocephalic. No temporal or scalp tenderness. EYES: Pupils equal round and reactive. Extraocular motions intact. No scleral icterus. No injection or drainage. ENT: Intubated. NECK: Trachea midline. Supple, nontender, no meningeal signs. CARDIOVASCULAR: HS audible. No murmur appreciated. RESPIRATORY: Clear to auscultation. Breath sounds equal bilaterally. No wheezes , rales, or rhonchi. GASTROINTESTINAL: Abdomen soft, non-tender, nondistended. MUSCULOSKELETAL: Extremities without clubbing, cyanosis, or edema. No joint tenderness, effusion, or edema noted. No calf tenderness. Negative Homans sign bilaterally. NEUROLOGICAL: Opens eyes, nodded appropriately to some Qs for me. Non focal exam. Psych cooperative IV line sites with no e.o infection Laboratory Laboratory Tests Test 08/20/17 03:32 08/20/17 08:16 08/20/17 09:53 Blood Urea Nitrogen 51 Creatinine 0.86 Random Glucose 392 Total Protein 5.1 Albumin 1.9 Calcium Level 8.2 Alkaline Phosphatase 66 Aspartate Amino Transf (AST/SGOT) 20 Alanine Aminotransferase (ALT/SGPT) 19 Total Bilirubin 0.2 Sodium Level 152 Potassium Level 4.4 Chloride Level 111 Carbon Dioxide Level 34.8 Anion Gap 6 Estimat Glomerular Filtration Rate 89 White Blood Count 21.1 Red Blood Count 2.88 Hemoglobin 8.4 Hematocrit 27.0 Mean Corpuscular Volume 93.6 Mean Corpuscular Hemoglobin 29.3 Mean Corpuscular Hemoglobin Concent 31.3 Red Cell Distribution Width 18.8 Platelet Count 208 Mean Platelet Volume 9.8 Neutrophils (%) (Auto) 91.6 Lymphocytes (%) (Auto) 3.3 Monocytes (%) (Auto) 5.1 Eosinophils (%) (Auto) 0.0 Basophils (%) (Auto) 0.0 Neutrophils # (Auto) 19.3 Lymphocytes # (Auto) 0.7 Monocytes # (Auto) 1.1 Eosinophils # (Auto) 0.0 Basophils # (Auto) 0.0 CBC Comment AUTO DIFF Differential Total Cells Counted 100 Neutrophils % (Manual) 85 Band Neutrophils % 2 Lymphocytes % 7 Monocytes % 4 Neutrophils # (Manual) 18.8 Metamyelocytes 1 Myelocytes 1 Nucleated Red Blood Cells 2 Differential Comment FINAL DIFF MANUAL Toxic Granulation 2+ Platelet Estimate NORMAL Platelet Morphology Comment NORMAL Date/Time Source Procedure Growth Status 08/13/17 04:26 Blood Peripheral Aerobic Blood Culture - Final NO GROWTH IN 5 DAYS Complete 08/13/17 04:26 Blood Peripheral Anaerobic Blood Culture - Final NO GROWTH IN 5 DAYS Complete 08/13/17 05:45 Sputum Endotracheal Gram Stain - Final Complete 08/13/17 05:45 Sputum Culture - Final Pseudomonas Aeruginosa Complete 08/13/17 04:21 Urine Catheterized Urine Urine Culture - Final NO GROWTH IN 48 HOURS. Complete Result Diagram: 08/20/17 0816 08/20/17 0332 Imaging Last Impressions Chest X-Ray 08/18/17 0600 Signed Impressions: Service Date/Time: Friday, August 18, 2017 04:19 - CONCLUSION: 1. Interval improvement in the pulmonary opacities in the right lung base. Jacinto Benton MD CT Angiography 08/13/17 0000 Signed Impressions: Service Date/Time: Sunday, August 13, 2017 07:25 - CONCLUSION: 1. No CT evidence for pulmonary embolism as questioned. 2. Moderate to severe upper lobe predominant centrilobular emphysema. 3. Patchy bibasilar groundglass opacities likely reflecting atelectasis although differential considerations include aspiration. 4. Multiple 4-6mm bilateral groundglass and solid nodules, likely infectious/inflammatory. Recommend followup CT examination in approximately 6 months per 2017 Fleischner criteria (6mm nodule). Steve Barajas MD Assessment and Plan Assessment and Plan Possible Aspiration Pneumonia in Community on admission Acute resp failure on vent Acute metabolic encephalopathy: infection, metabolic Pseudomonas pneumonitis in setting of aspiration High grade leucocytosis despite steroids being tapered off. Concern for ongoing aspiration Recs DC Azactam IV Start Cefepime IV (override Cefaclor rash allergy in chart for now) continue flagyl for now. dw [facility] MD: if H/H drops consider GI consult. If leucocytosis persists and diarrhea consider stool cdiff pcr. Follow cultures Follow clinically. Sofia Crawford MD August 20, 2017 11:00
[2017-08-20] MEDS: CEFEPIME INJ 2,000 MG in SODIUM CHLORIDE 0.9% INJ 100 ML IV SCH ×2 (14:08→20:04)
[2017-08-20] MEDS: ATORVASTATIN 40 MG TAB PO SCH (20:05)
[2017-08-20] MEDS: INSULIN DETEMIR 100 UNITS/ML VIAL SQ SCH (20:05)
[2017-08-21] VITALS (21 sets, daily range): BP systolic 69–120; BP diastolic 40–68; PULSE 86–127; RESP 14–37; TEMP 98–99; O2SAT 98–100
[2017-08-21] MEDS: RESP: ALBUTEROL 2.5 MG/IPRATROPIUM 0.5 MG NEB (SCH) INH ×7 (00:08→22:51)
[2017-08-21] MEDS: INSULIN ASPART SUPPLEMENTAL SCALE SQ SCH ×4 (00:23→23:30)
[2017-08-21] MEDS: metroNIDAZOLE 500 MG TAB OG-TUBE SCH ×4 (00:23→20:56)
[2017-08-21] MEDS: PROPOFOL 1000 MG/100 ML INJ 100 ML IV PRN ×3 (00:24→11:56)
[2017-08-21] MEDS: MIDAZOLAM 50 MG/NS 50 ML DRIP Premix IV PRN ×2 (00:24→05:36)
[2017-08-21] MEDS: CHLORHEXIDINE GLUCONATE 2 % 1 PACK (2 CLOTHS) TOP SCH (04:00)
--- NOTE | 2017-08-21 04:34 | RADRPT ---
EXAM DATE/TIME: 08/21/2017 04:09 [place] COMPARISON: CHEST SINGLE AP, August 18, 2017, 4:19. INDICATIONS : Short of breath. MEDICAL HISTORY : Cerebrovascular disease. Congestive heart failure. Hypertension. Diabetes SURGICAL HISTORY : CABG. Abdominal aortic aneurysm repair. Cholecystectomy. ENCOUNTER: Subsequent ACUITY: 1 week PAIN SCORE: 0/10 LOCATION: Bilateral chest FINDINGS: 2 portable frontal views of the chest show an endotracheal tube with the tip 3 cm proximal to the car marco. Nasogastric tube tip in the region of the fundus of the stomach. Heart is normal in size. Lungs are clear. No infiltrates or effusions. Median sternotomy wires. CONCLUSION: Clear lungs. Ricki Metzger Jr., MD on August 21, 2017 at 4:31 Board Certified Radiologist. This report was verified electronically.
[2017-08-21] MEDS: CEFEPIME INJ 2,000 MG in SODIUM CHLORIDE 0.9% INJ 100 ML IV SCH ×3 (05:17→20:56)
[2017-08-21] MEDS: SPIRONOLACTONE 25 MG TAB PO SCH (07:56)
[2017-08-21] MEDS: FUROSEMIDE 20 MG TAB PO SCH (07:56)
[2017-08-21] MEDS: LISINOPRIL 10 MG TAB PO SCH (07:56)
[2017-08-21] MEDS: METOPROLOL TARTRATE 50 MG TAB PO SCH ×2 (07:56→20:55)
[2017-08-21] MEDS: ASPIRIN 81 MG CHEW TAB CHEW SCH (07:56)
[2017-08-21] MEDS: FAMOTIDINE 20 MG TAB TUBE SCH ×2 (07:56→20:55)
[2017-08-21] MEDS: SODIUM CHLORIDE 0.9% FLUSH 10 ML FLUSH IV FLUSH SCH ×2 (07:57→20:56)
[2017-08-21] MEDS: methylPREDNISolone SOD SUCC 40 MG/1 ML VIAL IV PUSH SCH ×2 (07:57→20:57)
[2017-08-21] MEDS: INSULIN DETEMIR 100 UNITS/ML VIAL SQ SCH ×2 (07:58→20:57)
[2017-08-21] MEDS: CHLORHEXIDINE 0.12% (ORAL KIT) 15 ML CUP MT SCH ×2 (07:58→20:57)
[2017-08-21] MEDS: RESP: BUDESONIDE 0.5 MG/2 ML NEB NEB SCH ×2 (08:40→19:40)
[2017-08-21] MEDS: ENOXAPARIN SODIUM 40 MG/0.4 ML SYRINGE SQ SCH (10:13)
--- NOTE | 2017-08-21 10:47 | HHI.CCPN ---
Subjective Remarks/Hospital Course 66-year-old male who was brought to the ER after he developed shortness of breath and altered mental status. At [facility] he was placed on nasal cannula 2 L because of his history of COPD as he uses it off and on. EMS was called when patient developed agonal respirations with O2 sats in the low 80s on their arrival with pink frothy sputum. Patient was intubated in the field after receiving etomidate and Versed. His systolic blood pressure was 190s following intubation and dropped to the 60 systolic range and he was started on dopamine in the field by EMS. He was brought to the ER at [place] and noted to have elevated troponin on his admitting labs. He was accepted for admission by critical care medicine service. He underwent a CT chest to evaluate for PE which was negative for PE however did show severe emphysematous changes with groundglass opacities. History is significantly limited by the fact that he is intubated. When I evaluated the patient he was sedated, orally intubated on mechanical ventilation. History was obtained by reviewing records. SUBJ 08/14/17: Remains intubated sedated, a CPAP was attempted but patient failed almost immediately with severe tachypnea. Continues to have bilateral expiratory wheezing and diminished air entry. Initial troponin was 3.18 now down trending 08/15/17: Patient remains intubated sedated with Versed and fentanyl. On sedation hold wakes up easily follows commands. On attempted CPAP patient became tachypneic with labored breathing using accessory muscles. Not ready for extubation. Pseudomonas growing in sputum. Increase Azactam to 2 g IV every 8 hours 08/16/17: Tolerating CPAP trials better today. Sputum culture growing Pseudomonas pansensitive. Will attempt to extubate with BiPAP use if needed 08/17/17: Reintubated yesterday evening following severe respiratory distress and severe wheezing. Currently remains sedated on vent support. Persistent wheezing. 08/18: Remains intubated sedated. Will initiate CPAP trials again. Patient has severe emphysema and will be difficult to wean to extubate. Wheezing persists. 08/19: Remains sedated, orally intubated on mechanical ventilation. Significant bloody respiratory secretions being suctioned from ET tube. On heparin for anticoagulation. Will hold Coumadin. 08/20: Sedated, arousable, orally intubated on mechanical ventilation. Failing CPAP trials. Heparin held yesterday due to increasing bloody respiratory secretions. 08/21: Remains sedated wakes up easily. Failed CPAP trial immediately today due to tachypnea and respiratory distress. No significant bloody secretions. Chest x-ray was clear. I discussed briefly with daughter. Poly Salcedo about possibility of trach. She needs more time to decide and needs time to discuss with family. I have consulted palliative care to address goals of care. Vent day 9 today. With his some advanced emphysema it will be difficult to wean him off the ventilator without tracheostomy Objective Vital Signs Date Time Temp Pulse Resp B/P (MAP) Pulse Ox O2 Delivery O2 Flow Rate FiO2 08/21/17 10:00 94 08/21/17 08:40 100 40 08/21/17 08:00 98.0 15 94/57 (69) Intake and Output 08/21/17 08/21/17 08/22/17 08:00 16:00 00:00 Intake Total 932 ml Output Total 800 ml Balance 132 ml Result Diagram: 08/20/17 0816 08/20/17 0332 Imaging Last Impressions Chest X-Ray 08/13/17 0414 Signed Impressions: Service Date/Time: Sunday, August 13, 2017 04:28 - CONCLUSION: Lungs are grossly clear. ET tube in good position. Abel Cannon MD CT Angiography 08/13/17 0000 Signed Impressions: Service Date/Time: Sunday, August 13, 2017 07:25 - CONCLUSION: 1. No CT evidence for pulmonary embolism as questioned. 2. Moderate to severe upper lobe predominant centrilobular emphysema. 3. Patchy bibasilar groundglass opacities likely reflecting atelectasis although differential considerations include aspiration. 4. Multiple 4-6mm bilateral groundglass and solid nodules, likely infectious/inflammatory. Recommend followup CT examination in approximately 6 months per 2017 Fleischner criteria (6mm nodule). Steve Barajas MD Objective Remarks GEN: Sedated and intubated male HEENT: Pallor present, no icterus, tongue/ mucosa dry. Orotracheally intubated Neck: No JVD Chest/Pulm: on mech vent, decreased air entry bilaterally. Scattered rhonchi, mild expiratory wheezing CVS: S1-S2 regular, no murmur GI/abdomen: soft, nontender, bowel sounds sluggish Extremities: warm bilaterally, no edema. Left lower extremity status post BKA noted Neuro: Sedated, orally intubated, on sedation hold wakes up easily follows commands no focal deficits. A/P Assessment and Plan Assessment: Acute on chronic respiratory failure on mechanical ventilation Acute COPD exacerbation NSTEMI Pseudomonas pneumonia Advanced COPD/emphysema CAD History of cardiomyopathy Diabetes Hyperlipidemia Hypertension Paroxysmal atrial fibrillation. Peripheral vascular disease Plan: Neuro: -Sedation with Versed/fentanyl gtt. resume Precedex to facilitate vent weaning and wean off Versed. Follow neuro status. Cardiovascular: -Currently on metoprolol, lisinopril, Lasix and Aldactone per Dr. Gary. Holding Lasix and lisinopril due to increasing BUN -Use labetalol as needed for hypertension. -Holding heparin and Coumadin since 08/19 in view of hemoptysis currently. Continue Lovenox 40 mg sq daily -Continue aspirin. Cardiology Dr. Gary. 2D echo EF 50% -Dr. Gary recommends nuclear stress test when extubated Pulmonary: -Continue mechanical ventilation, vent bundle, bronchodilators scheduled as needed. -Failed extubation 08/16/2017, reintubated approximately after 6-8 hours. Total vent day 9 -Patient may need prolonged ventilatory support and possibly trach due to severe emphysema -CT of the chest showed severe emphysema and pneumonia -IV Solu-Medrol, inhaled budesonide -Azactam to 2 g IV every 8 hours for Pseudomonas in sputum-changed to cefepime by ID GI/liver: -Tube feeds with Jevity, bowel regimen. Renal/: -Aldactone as above. Lasix and Aldactone held -Strict intake output, monitor and replete electrodes, follow BUN/creatinine. ID: -Sputum culture growing Pseudomonas 08/13/17, Azactam changed to Cefepime by ID Endocrine: -Watch for hypoglycemia, SSI for glycemic control if needed. Heme: -Follow CBC and coags. Holding heparin and Coumadin in view of hemoptysis. Prophylaxis: -Pepcid/SCDs. Lovenox 40 mg subcutaneously (Full anticoagulation held due to hemoptysis) and will continue prophylactic dose provided hemoptysis does not recur or worsen Condition critical, failed extubation. Will need prolonged vent support and possibly trach due to severe COPD. Palliative care consulted to address goals of care. Discussed with daughter Poly Santacruz today 08/21/17 Level 3 Margarito Hernandez MD August 21, 2017 10:47
--- NOTE | 2017-08-21 11:39 | PD.CONS ---
Consult Service Palliative Care . Consult Requested By Dr. Hernandez . Primary Care Physician Unknown . Reason for Consultation a. To assist with evaluation and management of symptoms including: dyspnea, pain b. To assist medical decision maker(s) with: better understanding of current medical conditions; weighing benefits/burdens of medical treatment options; making medical treatment decisions. . HPI History of Present Illness Mr. Salcedo is a 66 year old male who presented to [facility] via EMS on 2017 with complaints of dyspnea. He was receiving rehab at [facility]. Per facility staff, the patient was awake and talking on the telephone 20 minutes prior to becoming suddenly SOB. EMS was called and found the patient with agonal respirations and hypoxic with saturations in the low 80s. Vital signs: pulse 127, respirations 25; BP 192/144. They also reported pink frothy sputum. Patient's respiratory status continued to deteriorate and he was intubated in the field with Etomidate and Versed. Shortly after intubation, the patient's systolic pressure dropped into the low 60s and he was started on a dopamine infusion by EMS. Of note, the patient has an extensive medical history that includes left BKA, PAD, DM II, COPD, JADA, HTN, TIAs, previous NC, CAD, hyperlipidemia and a history of squamous cell carcinoma. Additional diagnostic data includes: * Vital signs: Pulse 121, respirations 16, oxygen saturation 100% on 50% FiO2 via mechanical ventilator, oral temperature 98.9 * W BC: 6.8, hemoglobin 10.3, hematocrit 31.7, platelets 183, neutrophils 83.5% * Sodium: 135, potassium 5.9, chloride 97, carbon dioxide 34.2, glucose 203, calcium 8.7, phosphorus 4.6, magnesium 1.6 * BUN: 19, creatinine 0.92, GFR 83 * Lactic acid: 1.9 * Total bilirubin: 0.5, AST 112, ALT 40, alkaline phosphatase 144 * Total creatine kinase: 277 * CK-MB: 5.4 * Troponin: 3.18 * Total protein: 7.1, albumin 2.8 * PT: 10.9, INR 1.1, APTT 28.8 * Urinalysis with protein, urobilinogen, RBC, WBC, bacteria. * Urine culture-negative * Blood culture-negative * Sputum culture: + Pseudomonas aeruginosa * Chest x-ray showing grossly clear lungs. * EKG showed sinus tachycardia but no ST segment changes. Patient was admitted for further evaluation and medical management. He was started on empiric antibiotic coverage with IV is azactam/vancomycin and PO Flagyl. CTA showed no evidence for pulmonary embolism; moderate to severe upper lobe predominant central lobular emphysema; patchy bibasilar ground-glass opacities likely reflecting atelectasis although differential considerations include aspiration; multiple 4-6mm bilateral ground-glass and solid nodules, likely infectious/inflammatory. Recommendations for follow-up CT examination in approximately 6 months per 2017 Fleischner criteria. Cardiology following. Prior history on 08/04/2014 showed an ejection fraction of 25%. Echocardiogram this admission appears to have normal LV function with EF of 55%. May also have right ventricular hypertrophy with normal RV function. Recommendations to continue patient on beta-blockers, JOSEFINA-1, aspirin and heparin. Consider nuclear stress test when extubated and respiratory status has stabilized. Sputum culture growing Pseudomonas pansensitive; is acting increased to 2 g IV every 8 hours. Patient failed extubation on 08/16/2017, requiring reintubation approximately 6- 8 hours later. He remains on IV steroids and antibiotics. There is concerned the patient may need prolonged ventilatory support and possible tracheostomy due to severe emphysema. 08/19/2017 Patient having significant bloody respiratory secretions suctioned from ETT. Holding heparin and Coumadin in view of hemoptysis. H/H of 8.6/26.9 Infectious disease was consulted for evaluation and management of new onset fevers as well as increasing leukocytosis despite tapering off steroids. T-max 100.2; WBC 21.1. Azactam was discontinued and the patient was started on cefepime; he remains on Flagyl. If leukocytosis persists and/or the patient has diarrhea, may want to consider stool C. difficile PCR. Palliative Care was consulted to assist with symptom management and to discuss with the family the benefits and burdens of his current illnesses and the options regarding future care. . Function/Cognitive Trajectory Patient has significant lung disease at baseline. In 07/2017, the patient had a motorized scooter and prosthesis; he was able to transfer independently from chair to chair. Currently hospitalized for the 4th time in the past 6 months with COPD exacerbation/hypoxic respiratory failure. When he was last discharge on 07/28/2017, the patient declined SNF placement and was discharge with home services. Per daughter, the patient continued to decline and was transferred to [facility]. . Review of Systems ROS Limitations: Clinical Condition, Intubated Constitutional: COMPLAINS OF: Generalized weakness Respiratory: COMPLAINS OF: Hemoptysis, Shortness of breath Cardiovascular: DENIES: Lower Extremity Edema Musculoskeletal: COMPLAINS OF: Back pain (Chronic back pain) Hematologic/Lymphatics: COMPLAINS OF: Bruising Psychiatric: COMPLAINS OF: Confusion Past Family Social History Coded Allergies: cefaclor (Verified Allergy, Intermediate, rash, 06/28/17) Past Medical History Angina Left BKA-2016 PAD with chronic right lower extremity ischemia, DM II COPD JADA Hypertension History of TIAs Previous NC Back pain C6-7 disc herniation with left upper extremity radiculopathy Hypertension CAD status post CABG x 3 Atrial fibrillation Hyperlipidemia Squamous cell carcinoma . 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 Cholecystostomy tube placement CABG Squamous cell carcinoma removal Surgery left hand . Reported Medications Vitamin B-1 (Thiamine HCl) 100 Mg Tab 100 Mg PO DAILY Current Medications Medications (Trade) Dose Ordered Sig/Lindsey Route Start Time Stop Time Status Last Admin Propofol 100 ml @ 2.7 mls/hr TITRATE PRN IV 08/13/17 04:45 08/21/17 05:37 Heparin Sodium/ Dextrose 250 ml @ 16 mls/hr TITRATE PRN IV 08/13/17 05:15 Future Hold 08/18/17 19:26 Norepinephrine Bitartrate 250 ml @ 7.5 mls/hr TITRATE PRN IV 08/13/17 05:30 (Versed Inj) 2 mg Q10M PRN IV PUSH 08/13/17 05:30 08/13/17 06:18 (D50w (Vial) Inj) 50 ml UNSCH PRN IV PUSH 08/13/17 05:30 (Glucagon Inj) 1 mg UNSCH PRN OTHER 08/13/17 05:30 (NovoLOG SUPPLEMENTAL SCALE) 1 Q6H SQ 08/13/17 05:30 08/21/17 00:23 (Brethine Inj) 1 mg UNSCH PRN SQ 08/13/17 06:15 (NS Flush) 2 ml UNSCH PRN IV FLUSH 08/13/17 07:00 (NS Flush) 2 ml BID IV FLUSH 08/13/17 09:00 08/21/17 07:57 (Tylenol) 650 mg Q6H PRN PO 08/13/17 07:00 (Peridex 0.12% Liq) 15 ml BID@08,20 MT 08/13/17 08:00 08/21/17 07:58 (Pepcid) 20 mg BID TUBE 08/13/17 09:00 08/21/17 07:56 ([facility] 1 Q361D XX 08/13/17 07:00 08/13/17 07:00 (Chlorhexidine 2% Cloth) Taper DAILY@04 TOP 08/14/17 04:00 08/10/18 03:59 08/19/17 04:00 (Chlorhexidine 2% Cloth) 3 pack UNSCH PRN TOP 08/13/17 07:00 Fentanyl Citrate 250 ml @ 5 mls/hr TITRATE PRN IV 08/13/17 07:00 08/15/17 17:17 (Aspirin Chew) 81 mg DAILY CHEW 08/13/17 09:00 08/21/17 07:56 (Flagyl) 500 mg Q8HR OG-TUBE 08/13/17 14:00 08/21/17 05:18 Midazolam HCl 50 ml @ 2 mls/hr TITRATE PRN IV 08/14/17 00:30 08/21/17 05:36 Potassium Chloride 100 ml @ 50 mls/hr Q2H PRN IV 08/14/17 04:15 Potassium Chloride 100 ml @ 50 mls/hr Q2H PRN IV 08/14/17 04:15 08/18/17 23:31 (K-Lyte Cl Eff) 50 meq UNSCH PRN PO 08/14/17 04:15 Potassium Chloride 100 ml @ 25 mls/hr UNSCH PRN IV 08/14/17 04:15 Potassium Chloride 100 ml @ 50 mls/hr Q2H PRN IV 08/14/17 04:15 08/16/17 06:30 Magnesium Sulfate 4 gm/Sodium Chloride 100 ml @ 50 mls/hr UNSCH PRN IV 08/14/17 04:15 (Mag-Ox) 800 mg UNSCH PRN PO 08/14/17 04:15 Magnesium Sulfate 2 gm/Sodium Chloride 100 ml @ 50 mls/hr UNSCH PRN IV 08/14/17 04:15 08/14/17 09:02 (K-Phos) 2,000 mg Q4H PRN PO 08/14/17 04:15 Sodium Phosphate 30 mmol/Sodium Chloride 250 ml @ 42 mls/hr UNSCH PRN IV 08/14/17 04:15 (K-Phos) 2,000 mg UNSCH PRN PO/TUBE 08/14/17 04:15 Potassium Phosphate 30 mmol/ Sodium Chloride 260 ml @ 42 mls/hr UNSCH PRN IV 08/14/17 04:15 (Pulmicort Respule Neb) 0.5 mg Q12HR NEB NEB 08/14/17 14:00 08/21/17 08:40 (Lopressor) 50 mg Q12HR PO 08/15/17 09:00 08/21/17 07:56 (Prinivil) 10 mg DAILY PO 08/15/17 09:00 08/21/17 07:56 (Aldactone) 25 mg DAILY PO 08/15/17 09:00 08/21/17 07:56 (Lasix) 20 mg DAILY PO 08/15/17 09:00 08/21/17 07:56 (Lipitor) 40 mg HS PO 08/15/17 21:00 08/20/17 20:05 Dexmedetomidine HCl 200 mcg/ Sodium Chloride 52 ml @ 4.21 mls/hr TITRATE PRN IV 08/16/17 18:00 08/21/17 10:14 Dopamine HCl/ Dextrose 500 ml @ 8.494 mls/ hr TITRATE PRN IV 08/17/17 12:30 (Brethine Inj) 1 mg UNSCH PRN SQ 08/17/17 12:30 (Duoneb Neb) 1 ampule Q4HR NEB INH 08/18/17 12:00 08/21/17 08:40 (Coumadin) 4 mg DAILY@16 PO 08/18/17 16:00 Future Hold 08/18/17 17:02 (SoluMEDROL INJ) 80 mg Q12HR IV PUSH 08/19/17 21:00 08/21/17 07:57 (Levemir Inj) 60 units Q12HR SQ 08/20/17 21:00 08/21/17 07:58 (Lovenox Inj) 40 mg Q24H SQ 08/20/17 10:00 08/21/17 10:13 Cefepime HCl 2000 mg/Sodium Chloride 100 ml @ 200 mls/hr Q8H IV 08/20/17 12:00 08/21/17 05:17 Family History Strong familial history of cancer including gastric cancer and lung cancer. Mother from colon cancer at age 54; father in 1970 from some type of gastric cancer. . Substance Use Tobacco: Heavy smoker for many years, attempting to decrease smoking. Alcohol: Patient was reportedly a heavy drinker prior to quitting in March, Prescription med abuse: History of marijuana use Illicits: History of cocaine use . Psychosocial History Patient is originally from [place]. Patient has been for many years. He has 1 adult daughter (Poly) and 2 grand-children. Grandson (Tristin) and Granddaughter (Deo). Granddaughter (Deo) identifies as male and is to [facility]. Patient's highest education level is eighth grade. He is unemployed ; last working in 2010 as a [employer]. . Spiritual/Cultural Factors Episcopal shelbi . Living Will: Copy in medical record Documented care wishes: Living will appears to be completed on April 19, 2014. Document can be viewed in patient's EMR. . Today's verbally stated goals: Given patient's current clinical condition, he is unable to participate in establishment of medical treatment goals. . Family/friends goals: Family expressing aggressive goals; they want to give the patient time to improve before making a decision about trach/PEG. . Ethical and Legal Issues No known ethical or legal issues at this time. . Physical Exam Vital Signs Date Time Temp Pulse Resp B/P (MAP) Pulse Ox O2 Delivery O2 Flow Rate FiO2 08/21/17 10:00 94 08/21/17 08:40 100 40 08/21/17 08:40 40 08/21/17 08:00 98.0 98 15 94/57 (69) 100 08/21/17 08:00 98 08/21/17 06:00 94 08/21/17 04:00 98.4 95 16 104/56 (72) 100 08/21/17 04:00 94 08/21/17 04:00 40 08/21/17 03:27 100 40 08/21/17 02:00 92 08/21/17 00:05 100 40 08/21/17 00:00 90 08/21/17 00:00 40 08/21/17 00:00 99.0 97 26 114/62 (79) 100 08/20/17 22:00 111 08/20/17 22:00 88 24 124/68 (86) 100 08/20/17 21:00 93 29 114/69 (84) 100 08/20/17 20:19 100 40 08/20/17 20:00 40 08/20/17 20:00 111 26 113/69 (84) 100 08/20/17 20:00 111 08/20/17 19:00 99.5 111 20 121/67 (85) 100 08/20/17 18:00 110 08/20/17 16:11 100 40 08/20/17 16:00 40 08/20/17 16:00 97.6 108 23 131/77 (95) 100 08/20/17 16:00 108 08/20/17 14:00 108 08/20/17 12:00 99.6 102 34 131/79 (96) 100 08/20/17 12:00 102 08/20/17 12:00 40 08/20/17 11:47 100 40 08/20/17 10:50 40 08/20/17 10:50 100 40 . Exam CONSTITUTIONAL/GENERAL: This is an adequately nourished patient intubated on mechanical vent TUBES/LINES/DRAINS: PIV x 3, Floey, ETT, OGT SKIN: No jaundice, rashes, or lesions. Ecchymoses on upper extremities. No wounds seen anteriorly. Skin temperature appropriate. Not diaphoretic. HEAD: Atraumatic. Normocephalic. EYES: Pupils equal and round and reactive. Extraocular motions intact. No scleral icterus. No injection or drainage. Fundi not examined. ENT: Hearing grossly normal. Nose without bleeding or purulent drainage. NECK: Trachea midline. Supple, nontender. No palpable thyroid enlargement or nodularity. CARDIOVASCULAR: Regular rate and rhythm without murmurs, gallops, or rubs. No JVD. Peripheral pulses symmetric. RESPIRATORY/CHEST: Tachypneic. Breath sounds diminished bilaterally. No wheezes , rales, or rhonchi. GASTROINTESTINAL: Abdomen soft, non-tender, nondistended. No hepato-splenomegaly , or palpable masses. No guarding. Bowel sounds present. GENITOURINARY: Without palpable bladder distension. Lopez catheter in place. MUSCULOSKELETAL: Extremities without clubbing, cyanosis, or edema. Left BKA LYMPHATICS: No palpable cervical or supraclavicular adenopathy. NEUROLOGICAL: Awake off sedation. Opens eyes to verbal stimuli. Does not respond to questions or follow simple one-step commands. PSYCHIATRIC: No obvious anxiety/depression. No apparent hallucinations or other psychotic thought process. . Diagnostic Tests Laboratory Laboratory Tests Test 08/19/17 04:15 08/20/17 03:32 08/20/17 08:16 08/20/17 09:53 White Blood Count 11.9 TH/MM3 (4.0-11.0) 21.1 TH/MM3 (4.0-11.0) Red Blood Count 2.88 MIL/MM3 (4.50-5.90) 2.88 MIL/MM3 (4.50-5.90) Hemoglobin 8.6 GM/DL (13.0-17.0) 8.4 GM/DL (13.0-17.0) Hematocrit 26.9 % (39.0-51.0) 27.0 % (39.0-51.0) Mean Corpuscular Volume 93.4 FL (80.0-100.0) 93.6 FL (80.0-100.0) Mean Corpuscular Hemoglobin 29.9 PG (27.0-34.0) 29.3 PG (27.0-34.0) Mean Corpuscular Hemoglobin Concent 32.0 % (32.0-36.0) 31.3 % (32.0-36.0) Red Cell Distribution Width 17.9 % (11.6-17.2) 18.8 % (11.6-17.2) Platelet Count 201 TH/MM3 (150-450) 208 TH/MM3 (150-450) Mean Platelet Volume 9.5 FL (7.0-11.0) 9.8 FL (7.0-11.0) Activated Partial Thromboplast Time 54.2 SEC (24.3-30.1) 17.9 SEC (24.3-30.1) Potassium Level 4.0 MEQ/L (3.5-5.1) 4.4 MEQ/L (3.5-5.1) Blood Urea Nitrogen 51 MG/DL (7-18) Creatinine 0.86 MG/DL (0.60-1.30) Random Glucose 392 MG/DL (74-106) Total Protein 5.1 GM/DL (6.4-8.2) Albumin 1.9 GM/DL (3.4-5.0) Calcium Level 8.2 MG/DL (8.5-10.1) Alkaline Phosphatase 66 U/L (45-117) Aspartate Amino Transf (AST/SGOT) 20 U/L (15-37) Alanine Aminotransferase (ALT/SGPT) 19 U/L (12-78) Total Bilirubin 0.2 MG/DL (0.2-1.0) Sodium Level 152 MEQ/L (136-145) Chloride Level 111 MEQ/L (98-107) Carbon Dioxide Level 34.8 MEQ/L (21.0-32.0) Anion Gap 6 MEQ/L (5-15) Estimat Glomerular Filtration Rate 89 ML/MIN (>89) Neutrophils (%) (Auto) 91.6 % (16.0-70.0) Lymphocytes (%) (Auto) 3.3 % (9.0-44.0) Monocytes (%) (Auto) 5.1 % (0.0-8.0) Eosinophils (%) (Auto) 0.0 % (0.0-4.0) Basophils (%) (Auto) 0.0 % (0.0-2.0) Neutrophils # (Auto) 19.3 TH/MM3 (1.8-7.7) Lymphocytes # (Auto) 0.7 TH/MM3 (1.0-4.8) Monocytes # (Auto) 1.1 TH/MM3 (0-0.9) Eosinophils # (Auto) 0.0 TH/MM3 (0-0.4) Basophils # (Auto) 0.0 TH/MM3 (0-0.2) CBC Comment AUTO DIFF Differential Total Cells Counted 100 Neutrophils % (Manual) 85 % (16-70) Band Neutrophils % 2 % (0-6) Lymphocytes % 7 % (9-44) Monocytes % 4 % (0-8) Neutrophils # (Manual) 18.8 TH/MM3 (1.8-7.7) Metamyelocytes 1 % (0-1) Myelocytes 1 % (0-0) Nucleated Red Blood Cells 2 /100 WBC (0-0) Differential Comment FINAL DIFF MANUAL Toxic Granulation 2+ (NORMAL) Platelet Estimate NORMAL (NORMAL) Platelet Morphology Comment NORMAL (NORMAL) Test 08/20/17 12:35 Hepatitis A IgM Antibody NONREACTIVE (NONREACTIVE) Hepatitis B Surface Antigen NONREACTIVE (NONREACTIVE) Hepatitis B Core IgM Antibody NONREACTIVE (NONREACTIVE) Hepatitis C IgG Antibody NONREACTIVE (NONREACTIVE) . Result Diagram: 08/20/17 0816 08/20/17 0332 Imaging Last 72 hours Impressions Chest X-Ray 08/21/17 0600 Signed Impressions: Service Date/Time: Monday, August 21, 2017 04:09 - CONCLUSION: Clear lungs. Ricki Metzger Jr., MD . Procedures 08/16/2017: Intubation/reintubation . Patient/Family Conference Present at Family Conference: Spoke with patient's daughter via telephone . Family Conference Location: Telephone Issues Discussed: * Palliative care role, purpose, approach * Additional medical, psychosocial, and spiritual history * Patients general health, functional status, and cognitive changes in the months leading up to the current hospitalization * Patient/family understanding of the current medical problems * Patient/family understanding of prognosis * Patients goals of care as best understood from advance directives and/or conversations and/or values * Current medical treatment options and benefits/burdens of those options * Likely scenarios comparing ongoing aggressive care with a transition to comfort measures only * Questions answered to the best of my ability * Palliative care contact information provided . Assessment and Plan Disease Oriented Problem List: (1) Peripheral vascular disease (2) Pseudomonas pneumonia (3) COPD exacerbation (4) Cardiomyopathy (5) DM type 2 (diabetes mellitus, type 2) (6) CAD (coronary artery disease) (7) COPD (chronic obstructive pulmonary disease) (8) Hyperlipidemia (9) Paroxysmal atrial fibrillation Symptom Scale: (1) Dyspnea (2) Pain Pertinent Non-Medical Issues Psychosocial: Patient is originally from [place]. Patient has been for many years. He has 1 adult daughter (Poly) and 2 grand-children. Grandson ( Tristin) and Granddaughter (Deo). Granddaughter (Deo) identifies as male and is to [facility]. Patient's highest education level is eighth grade. He is unemployed; last working in 2010 as a [employer]. Spiritual: Episcopal shelbi Legal: Per [place] statutes, in the absence of written advanced directives health care proxy decision making falls to the patient's daughter (Poly). Ethical issues impacting care: No known ethical issues impacting care at this time. . Important Contacts Poly Salcedo, daughter: [phone] Tristin Salcedo, grandson: [phone] Deo Salcedo, granddaughter - identifies as male : [phone] ( to Grisel) Juan Carlos Salcedo, brother: [phone] . Prognosis Patient is a 66 yo male with significant lung disease resulting in 4 hospitalizations in the past 6 months. He is currently vent dependent and unable to tolerate CPAP trails; given his advanced lung disease it will be difficult to wean him off the ventilator without a tracheostomy. Given patient' s complex medical history, he will be high risk for ongoing complications and decline. . Code Status: Full Code Plan * FULL CODE * Decision-making: Patient does NOT have insight or judgment concerning his medical conditions at this time. Per [place] statutes, in the absence of written advanced directives health care proxy decision making falls to the patient's daughter (Poly). * AGGRESSIVE GOALS * Given patient's advanced lung disease, it will be difficult to wean him off the ventilator without tracheostomy. Family expressing aggressive goals; they want to give the patient time to improve before making a decision about trach/ PEG. * Discussed current medical treatment goals with RN (Zenia) and Dr. Hernandez. * Palliative care contact information provided to the patient's family * Tentative family meeting with palliative care tomorrow 08/22/2017 at 1 PM * Symptom management: == Dyspnea: Patient admitted with severe dyspnea s/p being intubated in the field; unable to tolerate CPAP trails. CTA showed no evidence for pulmonary embolism; moderate to severe upper lobe predominant central lobular emphysema; patchy bibasilar ground-glass opacities likely reflecting atelectasis although differential considerations include aspiration; multiple 4-6mm bilateral ground-glass and solid nodules, likely infectious/ inflammatory. Sputum culture + Pseudomonas. Given his advanced lung disease it will be difficult to wean him off the ventilator without a tracheostomy. == Pain: Multifactoral. Patient has a known history of chronic back pain, CAD, severe peripheral vascular disease status post left BKA. Additional contributing factors may include invasive lines, immobility etc. PRN/titration orders for Precedex, Versed (drip and push) and Propofol. Being used cautiously even ongoing hypotension. * Positive care will continue to follow this patient throughout his hospitalization to establish stress, assist with symptom management and clarification of medical treatment goals. . Thank you for the opportunity to participate in the care of Mr. Salcedo. . Attestation To help prompt me to consider important information that might be impacting today's encounter and assessment, information from prior notes written by myself or my colleagues may have been "brought forward" into today's note. My signature on this note, however, is an attestation that I personally performed the exam, history, and/or decision-making noted today, and, unless otherwise indicated, the interactions with patient, family, and staff as well as the review of records all occurred today. I also attest that the listed assessment and stated plan reflect my best clinical judgment today based on the combination of historical information, prior notes, and today's exam/ interactions. When time spent is documented, it refers only to time spent today by the signer, or if indicated, combined time spent today by collaborating physician/nurse practitioner. . Judith Salazar August 21, 2017 11:38
--- NOTE | 2017-08-21 14:43 | HHI.IDPN ---
Subjective Subjective Remarks Mr. Salcedo is a 66-year-old male with past medical history of nonischemic cardiomyopathy with EF 25%,, diabetes mellitus, peripheral vascular disease status post left below-knee amputation in the past. With this background patient presents to the emergency department with acute onset of shortness of breath and altered mental status. Patient was reportedly at the senior care and his O2 sats dropped and given his history of COPD EMS was called when EMS saw the patient he developed agonal breathing with O2 sats in the low 80s and pink frothy sputum. Patient was intubated in the field. Patient's blood pressure following intubation dropped from systolic in 190s-60s systolic and patient was started on dopamine in the field by EMS. Patient was admitted to critical care services and underwent sepsis workup. Patient also underwent a CT chest to evaluate for PE which was negative. However it did show severe emphysematous changes with groundglass opacities. Patient has been started on aztreonam IV due to his history of rash to cefaclor. Clinically patient appears to be doing better and his chest x-ray has improved. RN reports that he continues to have some bloody secretions and there was a blood clot noted yesterday. But no active bleeding noted. Concern for possible ongoing aspiration given bleeding. At the time of my evaluation patient is in the ICU currently intubated. Patient underwent CPAP trial but failed. Respiratory therapist notes blood tinged secretions. Urine output okay Patient has had fevers as well as leukocytosis despite steroids being tapered off. Infectious disease consulted for evaluation and management of new fevers as well as increasing leukocytosis despite decreasing steroids. And also concern for Pseudomonas pneumonia. Remains sedated wakes up easily. Failed CPAP trial immediately today due to tachypnea and respiratory distress. No significant bloody secretions. Chest x-ray was clear. Palliative care consulted for decision on trach. No fevers. No rash No diarrhea Antibiotics Cefepime IV Flagyl oral Lines Line sites with no e.o infection Past Medical History Past Medical History Per review of records Nonischemic cardiomyopathy with EF of 25% on July 2014 cardiac cath report. EF of 60% on January 2015 echo. History of acalculous cholecystitis status post biliary drain placement and subsequent cholecystectomy. Severe COPD Coronary artery disease status post coronary artery bypass in March 2014. Diabetes mellitus Hyperlipidemia Hypertension Paroxysmal atrial fibrillation Peripheral vascular disease status post left external iliac stent, bilateral femoral endarterectomies, bilateral profundoplasty, femorofemoral and aortobifemoral bypasses on May 07, 2014 as well as status post left femoral anterior tibial bypass and amputation of the left first and second toes in April 2016. Thereafter patient underwent a left below-knee amputation in May 01, 2016. Past Surgical History Per review of records Cardiac cath Coronary artery bypass graft in March 2014 Peripheral vascular disease with multiple bypasses in the lower extremities. Left below-knee amputation Allergies: Coded Allergies: cefaclor (Verified Allergy, Intermediate, rash, 06/28/17) Objective . Vital Signs Date Time Temp Pulse Resp B/P (MAP) Pulse Ox O2 Delivery O2 Flow Rate FiO2 08/21/17 12:00 40 08/21/17 12:00 86 08/21/17 11:28 100 35 08/21/17 11:27 35 08/21/17 10:00 94 08/21/17 08:40 100 40 08/21/17 08:40 40 08/21/17 08:00 98.0 98 15 94/57 (69) 100 08/21/17 08:00 40 08/21/17 08:00 98 08/21/17 06:00 94 08/21/17 04:00 98.4 95 16 104/56 (72) 100 08/21/17 04:00 94 08/21/17 04:00 40 08/21/17 03:27 100 40 08/21/17 02:00 92 08/21/17 00:05 100 40 08/21/17 00:00 90 08/21/17 00:00 40 08/21/17 00:00 99.0 97 26 114/62 (79) 100 08/20/17 22:00 111 08/20/17 22:00 88 24 124/68 (86) 100 08/20/17 21:00 93 29 114/69 (84) 100 08/20/17 20:19 100 40 08/20/17 20:00 40 08/20/17 20:00 111 26 113/69 (84) 100 08/20/17 20:00 111 08/20/17 19:00 99.5 111 20 121/67 (85) 100 08/20/17 18:00 110 08/20/17 16:11 100 40 08/20/17 16:00 40 08/20/17 16:00 97.6 108 23 131/77 (95) 100 08/20/17 16:00 108 . Laboratory Tests Test 08/20/17 08:16 White Blood Count 21.1 TH/MM3 Red Blood Count 2.88 MIL/MM3 Hemoglobin 8.4 GM/DL Hematocrit 27.0 % Mean Corpuscular Volume 93.6 FL Mean Corpuscular Hemoglobin 29.3 PG Mean Corpuscular Hemoglobin Concent 31.3 % Red Cell Distribution Width 18.8 % Platelet Count 208 TH/MM3 Mean Platelet Volume 9.8 FL Neutrophils (%) (Auto) 91.6 % Lymphocytes (%) (Auto) 3.3 % Monocytes (%) (Auto) 5.1 % Eosinophils (%) (Auto) 0.0 % Basophils (%) (Auto) 0.0 % Neutrophils # (Auto) 19.3 TH/MM3 Lymphocytes # (Auto) 0.7 TH/MM3 Monocytes # (Auto) 1.1 TH/MM3 Eosinophils # (Auto) 0.0 TH/MM3 Basophils # (Auto) 0.0 TH/MM3 CBC Comment AUTO DIFF Differential Total Cells Counted 100 Neutrophils % (Manual) 85 % Band Neutrophils % 2 % Lymphocytes % 7 % Monocytes % 4 % Neutrophils # (Manual) 18.8 TH/MM3 Metamyelocytes 1 % Myelocytes 1 % Nucleated Red Blood Cells 2 /100 WBC Differential Comment FINAL DIFF MANUAL Toxic Granulation 2+ Platelet Estimate NORMAL Platelet Morphology Comment NORMAL Laboratory Tests Test 08/20/17 03:32 Blood Urea Nitrogen 51 MG/DL Creatinine 0.86 MG/DL Random Glucose 392 MG/DL Total Protein 5.1 GM/DL Albumin 1.9 GM/DL Calcium Level 8.2 MG/DL Alkaline Phosphatase 66 U/L Aspartate Amino Transf (AST/SGOT) 20 U/L Alanine Aminotransferase (ALT/SGPT) 19 U/L Total Bilirubin 0.2 MG/DL Sodium Level 152 MEQ/L Potassium Level 4.4 MEQ/L Chloride Level 111 MEQ/L Carbon Dioxide Level 34.8 MEQ/L Anion Gap 6 MEQ/L Estimat Glomerular Filtration Rate 89 ML/MIN Imaging Last Impressions Chest X-Ray 08/21/17 0600 Signed Impressions: Service Date/Time: Monday, August 21, 2017 04:09 - CONCLUSION: Clear lungs. Ricki Metzger Jr., MD CT Angiography 08/13/17 0000 Signed Impressions: Service Date/Time: Sunday, August 13, 2017 07:25 - CONCLUSION: 1. No CT evidence for pulmonary embolism as questioned. 2. Moderate to severe upper lobe predominant centrilobular emphysema. 3. Patchy bibasilar groundglass opacities likely reflecting atelectasis although differential considerations include aspiration. 4. Multiple 4-6mm bilateral groundglass and solid nodules, likely infectious/inflammatory. Recommend followup CT examination in approximately 6 months per 2017 Fleischner criteria (6mm nodule). Steve Barajas MD Physical Exam GENERAL: This is a well-nourished, well-developed patient, in no apparent distress. SKIN: No rashes, ecchymoses or lesions. Cool and dry. HEAD: Atraumatic. Normocephalic. No temporal or scalp tenderness. EYES: Pupils equal round and reactive. Extraocular motions intact. No scleral icterus. No injection or drainage. ENT: Intubated. NECK: Trachea midline. Supple, nontender, no meningeal signs. CARDIOVASCULAR: HS audible. No murmur appreciated. RESPIRATORY: Clear to auscultation. Breath sounds equal bilaterally. No wheezes , rales, or rhonchi. GASTROINTESTINAL: Abdomen soft, non-tender, nondistended. MUSCULOSKELETAL: Extremities without clubbing, cyanosis, or edema. No joint tenderness, effusion, or edema noted. No calf tenderness. Negative Homans sign bilaterally. NEUROLOGICAL: Opens eyes.Non focal exam. Psych cooperative IV line sites with no e.o infection Assessment & Plan Remarks Possible Aspiration Pneumonia in Community on admission Acute resp failure on vent Acute metabolic encephalopathy: infection, metabolic Pseudomonas pneumonitis in setting of aspiration High grade leucocytosis despite steroids being tapered off. Concern for ongoing aspiration Recs Continue Cefepime IV (override Cefaclor rash allergy in chart for now) continue flagyl for now. If leucocytosis persists and diarrhea consider stool cdiff pcr. Follow cultures Follow clinically. Noted palliative care consult. Sofia Crawford MD August 21, 2017 14:43
[2017-08-21 17:03] LABS: AUTOMATED NEUTROPHIL # 25.8 TH/MM3 (1.8-7.7); BASOPHIL % 0.1 % (0.0-2.0); HEMATOCRIT 27.9 % (39.0-51.0); HEMOGLOBIN 8.8 GM/DL (13.0-17.0); LYMPH % 1.7 % (9.0-44.0); LYMPHOCYTE # 0.5 TH/MM3 (1.0-4.8); MEAN CELL VOLUME 96.1 FL (80.0-100.0); MEAN CORPUSCULAR HEMOGLOBIN 30.3 PG (27.0-34.0); MEAN CORPUSCULAR HGB CONC 31.5 % (32.0-36.0); MEAN PLATELET VOLUME 10.3 FL (7.0-11.0); MONO % 4.3 % (0.0-8.0); MONOCYTE # 1.2 TH/MM3 (0-0.9); NEUT % 93.9 % (16.0-70.0); PLATELET COUNT 146 TH/MM3 (150-450); WHITE BLOOD COUNT 27.5 TH/MM3 (4.0-11.0)
[2017-08-21 17:23] LABS: ALT (GPT) 17 U/L (12-78); AST (GOT) 25 U/L (15-37); BICARBONATE 35.6 MEQ/L (21.0-32.0); BLOOD UREA NITROGEN 59 MG/DL (7-18); CALCIUM 8.4 MG/DL (8.5-10.1); CHLORIDE 115 MEQ/L (98-107); CREATININE 0.87 MG/DL (0.60-1.30); GLOMERULAR FILTRATION RATE 88 ML/MIN (>89); GLUCOSE,RANDOM 286 MG/DL (74-106); SODIUM (NA) 155 MEQ/L (136-145)
[2017-08-21 17:25] LABS: ALKALINE PHOSPHATASE 67 U/L (45-117); TOTAL BILIRUBIN ADULT 0.3 MG/DL (0.2-1.0); TOTAL PROTEIN 5.4 GM/DL (6.4-8.2)
[2017-08-21 19:04] LABS: BANDS 1 % (0-6); LYMPHOCYTES 1 % (9-44); METAMYELOCYTES 1 % (0-1); MONOCYTES 1 % (0-8); POLYS (SEG NEUTROPHILS) 95 % (16-70); PROMYELOCYTES 1 % (0-0); TOXIC GRANULATION 2+ (NORMAL)
[2017-08-21] MEDS: ATORVASTATIN 40 MG TAB PO SCH (20:55)
[2017-08-22] VITALS (20 sets, daily range): BP systolic 78–111; BP diastolic 48–69; PULSE 96–134; RESP 14–32; TEMP 98.7–101.3; O2SAT 97–100
[2017-08-22] MEDS: MIDAZOLAM 50 MG/NS 50 ML DRIP Premix IV PRN (00:09)
[2017-08-22] MEDS: RESP: ALBUTEROL 2.5 MG/IPRATROPIUM 0.5 MG NEB (SCH) INH ×5 (03:48→19:36)
[2017-08-22] MEDS: CHLORHEXIDINE GLUCONATE 2 % 1 PACK (2 CLOTHS) TOP SCH (04:00)
[2017-08-22] MEDS: CEFEPIME INJ 2,000 MG in SODIUM CHLORIDE 0.9% INJ 100 ML IV SCH ×3 (04:24→20:57)
[2017-08-22] MEDS: metroNIDAZOLE 500 MG TAB OG-TUBE SCH ×3 (04:24→20:57)
[2017-08-22] MEDS: RESP: BUDESONIDE 0.5 MG/2 ML NEB NEB SCH ×2 (07:46→19:36)
[2017-08-22] MEDS ORDERED: SODIUM CHLOR 0.9% 1000 ML INJ 1,000 ML IV ONE ×2 (08:00→09:30)
[2017-08-22] MEDS: FAMOTIDINE 20 MG TAB TUBE SCH ×2 (08:42→20:57)
[2017-08-22] MEDS: SPIRONOLACTONE 25 MG TAB PO SCH (08:42)
[2017-08-22] MEDS: ASPIRIN 81 MG CHEW TAB CHEW SCH (08:42)
[2017-08-22] MEDS: methylPREDNISolone SOD SUCC 40 MG/1 ML VIAL IV PUSH SCH ×2 (08:43→20:58)
[2017-08-22] MEDS: CHLORHEXIDINE 0.12% (ORAL KIT) 15 ML CUP MT SCH ×2 (08:43→21:05)
[2017-08-22] MEDS: SODIUM CHLORIDE 0.9% FLUSH 10 ML FLUSH IV FLUSH SCH ×2 (08:43→21:05)
[2017-08-22] MEDS: INSULIN DETEMIR 100 UNITS/ML VIAL SQ SCH ×2 (08:43→21:05)
[2017-08-22] MEDS: METOPROLOL TARTRATE 50 MG TAB PO SCH ×2 (08:46→21:00)
--- NOTE | 2017-08-22 09:06 | RADRPT ---
EXAM DATE/TIME: 08/22/2017 08:20 [facility] COMPARISON: CHEST SINGLE AP, August 21, 2017, 4:09. INDICATIONS : Respiratory disease. MEDICAL HISTORY : Cerebrovascular disease. Congestive heart failure. Hypertension. Diabetes SURGICAL HISTORY : CABG. Abdominal aortic aneurysm repair. Cholecystectomy. ENCOUNTER: Subsequent ACUITY: 2 weeks PAIN SCORE: Non-responsive. LOCATION: Bilateral chest FINDINGS: A single view of the chest demonstrates biapical emphysematous changes, and on the right. There is so me developing airspace disease just above the left hemidiaphragm projecting over the heart shadow. Taty ngs are otherwise grossly clear. No effusions. Heart size is normal. Median sternotomy wires are inta ct. Endotracheal and nasogastric tubes are stable in position. CONCLUSION: 1. Biapical emphysematous changes, most severe in the right upper lobe. 2. Some developing airspace disease medially in the left base just above the diaphragm Joel Dhillon MD on August 22, 2017 at 8:58 Board Certified Radiologist. This report was verified electronically.
[2017-08-22] MEDS ORDERED: Vancomycin Consult Pharmacy 1 EA OTHER SCH (09:15)
--- NOTE | 2017-08-22 09:27 | HHI.CCPN ---
Subjective Remarks/Hospital Course 66-year-old male who was brought to the ER after he developed shortness of breath and altered mental status. [facility] nasal cannula 2 L because of his history of COPD as he uses it off and on. EMS was called when patient developed agonal respirations with O2 sats in the low 80s on their arrival with pink frothy sputum. Patient was intubated in the field after receiving etomidate and Versed. His systolic blood pressure was 190s following intubation and dropped to the 60 systolic range and he was started on dopamine in the field by EMS. He was brought to the ER at [facility] and noted to have elevated troponin on his admitting labs. He was accepted for admission by critical care medicine service. He underwent a CT chest to evaluate for PE which was negative for PE however did show severe emphysematous changes with groundglass opacities. History is significantly limited by the fact that he is intubated. When I evaluated the patient he was sedated, orally intubated on mechanical ventilation. History was obtained by reviewing records. SUBJ 08/14/17: Remains intubated sedated, a CPAP was attempted but patient failed almost immediately with severe tachypnea. Continues to have bilateral expiratory wheezing and diminished air entry. Initial troponin was 3.18 now down trending 08/15/17: Patient remains intubated sedated with Versed and fentanyl. On sedation hold wakes up easily follows commands. On attempted CPAP patient became tachypneic with labored breathing using accessory muscles. Not ready for extubation. Pseudomonas growing in sputum. Increase Azactam to 2 g IV every 8 hours 08/16/17: Tolerating CPAP trials better today. Sputum culture growing Pseudomonas pansensitive. Will attempt to extubate with BiPAP use if needed 08/17/17: Reintubated yesterday evening following severe respiratory distress and severe wheezing. Currently remains sedated on vent support. Persistent wheezing. 08/18: Remains intubated sedated. Will initiate CPAP trials again. Patient has severe emphysema and will be difficult to wean to extubate. Wheezing persists. 08/19: Remains sedated, orally intubated on mechanical ventilation. Significant bloody respiratory secretions being suctioned from ET tube. On heparin for anticoagulation. Will hold Coumadin. 08/20: Sedated, arousable, orally intubated on mechanical ventilation. Failing CPAP trials. Heparin held yesterday due to increasing bloody respiratory secretions. 08/21: Remains sedated wakes up easily. Failed CPAP trial immediately today due to tachypnea and respiratory distress. No significant bloody secretions. Chest x-ray was clear. I discussed briefly with daughter. Poly Salcedo about possibility of trach. She needs more time to decide and needs time to discuss with family. I have consulted palliative care to address goals of care. Vent day 9 today. With his some advanced emphysema it will be difficult to wean him off the ventilator without tracheostomy 08/22: Patient is more critical becoming more septic. White count yesterday was 27.5. Today he spiked fever 101.3, tachycardic heart rate in 120s borderline hypotensive.. Chest x-ray shows developing left base infiltrate. Will continue cefepime panculture ordered. Vancomycin 1.25 g 1 and pharmacy to dose. Normal saline bolus 2 L ordered Objective Vital Signs Date Time Temp Pulse Resp B/P (MAP) Pulse Ox O2 Delivery O2 Flow Rate FiO2 08/22/17 09:04 35 08/22/17 08:12 97 08/22/17 08:00 101.3 134 32 88/55 (66) Intake and Output 08/22/17 08/22/17 08/23/17 08:00 16:00 00:00 Intake Total 1120 ml Output Total 550 ml Balance 570 ml Result Diagram: 08/21/17 1539 08/21/17 1529 Other Results Microbiology Date/Time Source Procedure Growth Status 08/21/17 19:30 Stool Stool Stool Occult Blood (JABIER) - Final HEMOCCULT POSITIVE Complete Imaging Last Impressions Chest X-Ray 08/13/17 0414 Signed Impressions: Service Date/Time: Sunday, August 13, 2017 04:28 - CONCLUSION: Lungs are grossly clear. ET tube in good position. Abel Cannon MD CT Angiography 08/13/17 0000 Signed Impressions: Service Date/Time: Sunday, August 13, 2017 07:25 - CONCLUSION: 1. No CT evidence for pulmonary embolism as questioned. 2. Moderate to severe upper lobe predominant centrilobular emphysema. 3. Patchy bibasilar groundglass opacities likely reflecting atelectasis although differential considerations include aspiration. 4. Multiple 4-6mm bilateral groundglass and solid nodules, likely infectious/inflammatory. Recommend followup CT examination in approximately 6 months per 2017 Fleischner criteria (6mm nodule). Steve Barajas MD Objective Remarks GEN: Sedated and intubated male, tachycardic sinus rhythm HEENT: Pallor present, no icterus, tongue/ mucosa dry. Orotracheally intubated Neck: No JVD Chest/Pulm: on mech vent, decreased air entry bilaterally. Scattered rhonchi, expiratory wheezing. Becomes severely tachypneic and labored on attempted spontaneous breathing trial CVS: S1-S2 regular, but tachycardic. No murmur. Mild hypotension GI/abdomen: soft, nontender, bowel sounds sluggish Extremities: warm bilaterally, no edema. Left lower extremity status post BKA Neuro: Sedated, orally intubated, on sedation hold appears more encephalopathic today. Not following commands A/P Assessment and Plan Assessment: Acute on chronic respiratory failure on mechanical ventilation Acute metabolic encephalopathy Severe sepsis (Fever leukocytosis hypotension tachycardia) Acute COPD exacerbation NSTEMI Pseudomonas pneumonia Advanced COPD/emphysema CAD History of cardiomyopathy Diabetes Hyperlipidemia Hypertension Paroxysmal atrial fibrillation. Peripheral vascular disease Plan: Neuro: -Sedation with Versed/fentanyl gtt. Precedex when appropriate to facilitate vent weaning. Follow neuro status. -New change in mental status/metabolic encephalopathy seems to be secondary to ongoing sepsis Cardiovascular: -2 L normal saline boluses secondary to tachycardia hypotension sepsis -Currently on metoprolol, lisinopril, Lasix and Aldactone per Dr. Gary. Holding Lasix and lisinopril due to increasing BUN, hypotension -Use metoprolol IV as needed for hypotension tachycardia -Holding heparin and Coumadin since 08/19 in view of hemoptysis currently. Continue Lovenox 40 mg sq daily -Continue aspirin. Cardiology Dr. Gary. 2D echo EF 50% -Dr. Gary recommends nuclear stress test when extubated Pulmonary: -Continue mechanical ventilation, vent bundle, bronchodilators scheduled as needed. -Failed extubation 08/16/2017, reintubated approximately after 6-8 hours. Total vent day 10 -Patient will need prolonged ventilatory support and will need trach due to severe emphysema, and pneumonia and sepsis -Family has not made a decision regarding tracheostomy and PEG tube placement, palliative care following -CT of the chest showed severe emphysema and pneumonia -IV Solu-Medrol, inhaled budesonide -Currently on cefepime and Flagyl, vancomycin added today GI/liver: -Tube feeds with Jevity, bowel regimen. Renal/: -Lasix and Aldactone held. 2L NS bolus and continue maintenance fluid -If hyponatremic on CMP, change maintenance fluid to half-normal saline -Strict intake output, monitor and replete electrodes, follow BUN/creatinine. ID: -Sputum culture growing Pseudomonas 08/13/17, Azactam changed to Cefepime by ID. Continue p.o. Flagyl -Vancomycin added for new onset fever leukocytosis with SIRS -Sputum blood and urine cultures requested Endocrine: -Watch for hypoglycemia, SSI for glycemic control if needed. -Currently on Levemir 60 every 12 increased to 70 every 12 due to poor glycemic control Heme: -Follow CBC and coags. Holding heparin and Coumadin in view of hemoptysis. Prophylaxis: -Pepcid/SCDs. Lovenox 40 mg subcutaneously (Full anticoagulation held due to hemoptysis) and will continue prophylactic dose provided hemoptysis does not recur or worsen Condition critical, failed extubation. Will need prolonged vent support and possibly trach due to severe COPD. Now with new fever leukocytosis and severe sepsis most likely secondary to pneumonia. Vancomycin added. Palliative care consulted. Family has not made decision regarding tracheostomy and PEG tube placement Discussed with daughter Poly Santacruz today 08/21/17 CCT 42 MIN Margarito Hernandez MD August 22, 2017 09:27
[2017-08-22] MEDS: ENOXAPARIN SODIUM 40 MG/0.4 ML SYRINGE SQ SCH (10:00)
[2017-08-22] MEDS ORDERED: metroNIDAZOLE 500 MG TAB PO SCH (10:00)
--- NOTE | 2017-08-22 10:20 | PD.CARD.PN ---
Subjective Subjective Remarks Intubated. Sedated. Objective Medications Item Value Date Time Enoxaparin Sodium 40 mg 08/20/17 1000 (Lovenox Inj) Q24H/SQ 08/21/17 1013 Atorvastatin 40 mg 08/15/17 2100 Calcium HS/PO 08/21/172054 (Lipitor) Metoprolol 50 mg 08/15/17 0900 Tartrate Q12HR/PO (Lopressor) Spironolactone 25 mg 08/15/17 0900 (Aldactone) DAILY/PO 08/22/17 0842 Aspirin 81 mg 08/13/17 0900 (Aspirin Chew) DAILY/CHEW 08/22/17 08 Current Medications Medications (Trade) Dose Ordered Sig/Lindsey Route Start Time Stop Time Status Last Admin Propofol 100 ml @ 2.7 mls/hr TITRATE PRN IV 08/13/17 04:45 08/21/17 11:56 Heparin Sodium/ Dextrose 250 ml @ 16 mls/hr TITRATE PRN IV 08/13/17 05:15 Future Hold 08/18/17 19:26 Norepinephrine Bitartrate 250 ml @ 7.5 mls/hr TITRATE PRN IV 08/13/17 05:30 (Versed Inj) 2 mg Q10M PRN IV PUSH 08/13/17 05:30 08/13/17 06:18 (D50w (Vial) Inj) 50 ml UNSCH PRN IV PUSH 08/13/17 05:30 (Glucagon Inj) 1 mg UNSCH PRN OTHER 08/13/17 05:30 (Brethine Inj) 1 mg UNSCH PRN SQ 08/13/17 06:15 (NS Flush) 2 ml UNSCH PRN IV FLUSH 08/13/17 07:00 (NS Flush) 2 ml BID IV FLUSH 08/13/17 09:00 08/22/17 08:43 (Tylenol) 650 mg Q6H PRN PO 08/13/17 07:00 (Peridex 0.12% Liq) 15 ml BID@08,20 MT 08/13/17 08:00 08/22/17 08:43 (Pepcid) 20 mg BID TUBE 08/13/17 09:00 08/22/17 08:42 ([facility]) 1 Q361D XX 08/13/17 07:00 08/13/17 07:00 (Chlorhexidine 2% Cloth) Taper DAILY@04 TOP 08/14/17 04:00 08/10/18 03:59 08/19/17 04:00 (Chlorhexidine 2% Cloth) 3 pack UNSCH PRN TOP 08/13/17 07:00 Fentanyl Citrate 250 ml @ 5 mls/hr TITRATE PRN IV 08/13/17 07:00 08/15/17 17:17 (Aspirin Chew) 81 mg DAILY CHEW 08/13/17 09:00 08/22/17 08:42 (Flagyl) 500 mg Q8HR OG-TUBE 08/13/17 14:00 08/22/17 04:24 Midazolam HCl 50 ml @ 2 mls/hr TITRATE PRN IV 08/14/17 00:30 08/22/17 00:09 Potassium Chloride 100 ml @ 50 mls/hr Q2H PRN IV 08/14/17 04:15 Potassium Chloride 100 ml @ 50 mls/hr Q2H PRN IV 08/14/17 04:15 08/18/17 23:31 (K-Lyte Cl Eff) 50 meq UNSCH PRN PO 08/14/17 04:15 Potassium Chloride 100 ml @ 25 mls/hr UNSCH PRN IV 08/14/17 04:15 Potassium Chloride 100 ml @ 50 mls/hr Q2H PRN IV 08/14/17 04:15 08/16/17 06:30 Magnesium Sulfate 4 gm/Sodium Chloride 100 ml @ 50 mls/hr UNSCH PRN IV 08/14/17 04:15 (Mag-Ox) 800 mg UNSCH PRN PO 08/14/17 04:15 Magnesium Sulfate 2 gm/Sodium Chloride 100 ml @ 50 mls/hr UNSCH PRN IV 08/14/17 04:15 08/14/17 09:02 (K-Phos) 2,000 mg Q4H PRN PO 08/14/17 04:15 Sodium Phosphate 30 mmol/Sodium Chloride 250 ml @ 42 mls/hr UNSCH PRN IV 08/14/17 04:15 (K-Phos) 2,000 mg UNSCH PRN PO/TUBE 08/14/17 04:15 Potassium Phosphate 30 mmol/ Sodium Chloride 260 ml @ 42 mls/hr UNSCH PRN IV 08/14/17 04:15 (Pulmicort Respule Neb) 0.5 mg Q12HR NEB NEB 08/14/17 14:00 08/22/17 07:46 (Lopressor) 50 mg Q12HR PO 08/15/17 09:00 08/21/17 07:56 (Prinivil) 10 mg DAILY PO 08/15/17 09:00 Future Hold 08/21/17 07:56 (Aldactone) 25 mg DAILY PO 08/15/17 09:00 08/22/17 08:42 (Lasix) 20 mg DAILY PO 08/15/17 09:00 Future Hold 08/21/17 07:56 (Lipitor) 40 mg HS PO 08/15/17 21:00 08/21/17 20:55 Dexmedetomidine HCl 200 mcg/ Sodium Chloride 52 ml @ 4.21 mls/hr TITRATE PRN IV 08/16/17 18:00 08/21/17 10:14 (Brethine Inj) 1 mg UNSCH PRN SQ 08/17/17 12:30 (Coumadin) 4 mg DAILY@16 PO 08/18/17 16:00 Future Hold 08/18/17 17:02 (Lovenox Inj) 40 mg Q24H SQ 08/20/17 10:00 08/21/17 10:13 Cefepime HCl 2000 mg/Sodium Chloride 100 ml @ 200 mls/hr Q8H IV 08/20/17 12:00 08/22/17 04:24 (SoluMEDROL INJ) 60 mg Q12HR IV PUSH 08/21/17 21:00 08/22/17 08:43 (Lopressor Inj) 2.5 mg Q6H PRN IV PUSH 08/22/17 08:00 (Duoneb Neb) 1 ampule Q4HR NEB INH 08/22/17 08:00 (Levemir Inj) 70 units Q12HR SQ 08/22/17 21:00 (NovoLOG SUPPLEMENTAL SCALE) 1 Q4HR SQ 08/22/17 09:30 Pharmacy Profile Note 0 ml @ 0 mls/hr UNSCH OTHER 08/22/17 09:15 (Flagyl) 500 mg Q8H PO 08/22/17 10:00 Sodium Chloride 1,000 ml @ 999 mls/hr BOLUS ONCE IV 08/22/17 09:30 08/22/17 10:30 Vancomycin HCl 1750 mg/Sodium Chloride 517.5 ml @ 250 mls/hr Q12H IV 08/22/17 11:00 ([facility] Ordered Lab Info) SPECIFIC LAB TO BE DRAWN:VANCOMYCIN TROUGH DATE TO... ONCE ONCE .XX 08/24/17 10:45 08/24/17 10:46 Vital Signs / I&O Vital Signs Date Time Temp Pulse Resp B/P (MAP) Pulse Ox O2 Delivery O2 Flow Rate FiO2 08/22/17 09:04 35 08/22/17 08:12 97 35 08/22/17 08:00 101.3 134 32 88/55 (66) 99 08/22/17 06:00 120 08/22/17 04:00 35 08/22/17 04:00 118 08/22/17 04:00 99.0 119 14 80/51 (61) 100 08/22/17 03:48 99 35 08/22/17 03:00 118 20 78/48 (58) 99 08/22/17 02:00 121 14 85/53 (64) 99 08/22/17 01:00 124 20 96/55 (69) 100 08/22/17 00:00 116 08/22/17 00:00 98.8 121 18 101/56 (71) 100 08/22/17 00:00 35 08/21/17 23:00 125 19 120/68 (85) 100 08/21/17 22:54 99 35 08/21/17 22:00 127 37 110/66 (81) 98 08/21/17 22:00 120 08/21/17 21:00 117 14 87/54 (65) 99 08/21/17 20:00 117 08/21/17 20:00 98.0 117 14 92/50 (64) 100 08/21/17 20:00 35 08/21/17 19:36 100 35 08/21/17 18:00 119 08/21/17 16:00 98.6 118 17 110/64 (79) 100 08/21/17 16:00 118 08/21/17 16:00 35 08/21/17 15:51 98 35 08/21/17 14:00 117 08/21/17 12:00 98.5 86 18 69/40 (50) 100 08/21/17 12:00 40 08/21/17 12:00 86 08/21/17 11:28 100 35 08/21/17 11:27 35 I/O 08/21/17 08/21/17 08/21/17 08/22/17 08/22/17 08/22/17 07:00 15:00 23:00 07:00 15:00 23:00 Intake Total 932 ml 100 ml 744 ml 1120 ml Output Total 800 ml 650 ml 550 ml Balance 132 ml 100 ml 94 ml 570 ml IV Total 182 ml 100 ml 100 ml 159 ml Tube Feeding 550 ml 524 ml 761 ml Other 200 ml 120 ml 200 ml Output Urine Total 800 ml 650 ml 550 ml # Bowel Movements 0 1 2 Physical Exam GENERAL: Well developed, well nourished. Intubated. Sedated. HEENT: Jugular venous pressure is normal. CHEST: Lungs clear to auscultation anteriorly. CARDIAC: Regular rate and rhythm without S3, S4, or murmur. ABDOMEN: Soft, no hepatosplenomegaly. Bowel sounds present. EXTREMITIES: No edema on the right. Status post left BKA. Laboratory Laboratory Tests Test 08/21/17 15:29 08/21/17 15:39 Activated Partial Thromboplast Time 22.5 SEC Blood Urea Nitrogen 59 MG/DL Creatinine 0.87 MG/DL Random Glucose 286 MG/DL Total Protein 5.4 GM/DL Albumin 2.0 GM/DL Calcium Level 8.4 MG/DL Alkaline Phosphatase 67 U/L Aspartate Amino Transf (AST/SGOT) 25 U/L Alanine Aminotransferase (ALT/SGPT) 17 U/L Total Bilirubin 0.3 MG/DL Sodium Level 155 MEQ/L Potassium Level 4.7 MEQ/L Chloride Level 115 MEQ/L Carbon Dioxide Level 35.6 MEQ/L Anion Gap 4 MEQ/L Estimat Glomerular Filtration Rate 88 ML/MIN White Blood Count 27.5 TH/MM3 Red Blood Count 2.90 MIL/MM3 Hemoglobin 8.8 GM/DL Hematocrit 27.9 % Mean Corpuscular Volume 96.1 FL Mean Corpuscular Hemoglobin 30.3 PG Mean Corpuscular Hemoglobin Concent 31.5 % Red Cell Distribution Width 19.0 % Platelet Count 146 TH/MM3 Mean Platelet Volume 10.3 FL Neutrophils (%) (Auto) 93.9 % Lymphocytes (%) (Auto) 1.7 % Monocytes (%) (Auto) 4.3 % Eosinophils (%) (Auto) 0.0 % Basophils (%) (Auto) 0.1 % Neutrophils # (Auto) 25.8 TH/MM3 Lymphocytes # (Auto) 0.5 TH/MM3 Monocytes # (Auto) 1.2 TH/MM3 Eosinophils # (Auto) 0.0 TH/MM3 Basophils # (Auto) 0.0 TH/MM3 CBC Comment AUTO DIFF Differential Total Cells Counted 100 Neutrophils % (Manual) 95 % Band Neutrophils % 1 % Lymphocytes % 1 % Monocytes % 1 % Neutrophils # (Manual) 27.0 TH/MM3 Metamyelocytes 1 % Promyelocytes 1 % Differential Comment FINAL DIFF MANUAL Toxic Granulation 2+ Platelet Estimate NORMAL Platelet Morphology Comment NORMAL Imaging Last 24 hours Impressions Chest X-Ray 08/22/17 0000 Signed Impressions: Service Date/Time: , August 22, 2017 08:20 - CONCLUSION: 1. Biapical emphysematous changes, most severe in the right upper lobe. 2. Some developing airspace disease medially in the left base just above the diaphragm Joel Dhillon MD Assessment and Plan Problem List: (1) CAD (coronary artery disease) ICD Codes: I25.10 - Coronary artery disease Status: Chronic Plan: Possible NSTEMI. Now with difficulties with hypotension, doubt due to acute cardiac process. Echo technically limited, appears to have normal LV function, EF about 55%. May also have right ventricular hypertrophy with normal RV function. REC no new recommendations at this time; will f/u periodically recheck EKG (2) Cardiomyopathy ICD Codes: I42.9 - Cardiomyopathy, unspecified Status: Resolved Plan: Prior history of EF 25%. No definite acute CHF. Echo this admission technically limited, appears to have normal LV function, EF about 55%. Beta allyn, JOSEFINA-I on hold with ongoing hypotension. (3) Paroxysmal atrial fibrillation ICD Codes: I48.0 - Paroxysmal atrial fibrillation Status: Chronic Plan: Poorly documented history of paroxysmal atrial fib. Remains in NSR. Resume anticoagulation when possible. (4) Hypertension ICD Codes: I10 - Hypertension Status: Chronic Plan: Hypertension not active issue. Code Status full code Problem Qualifiers (1) CAD (coronary artery disease): Qualified Codes: I25.119 - Atherosclerotic heart disease of [place] coronary artery with unspecified angina pectoris (2) Cardiomyopathy: Qualified Codes: I42.9 - Cardiomyopathy, unspecified (3) Hypertension: Qualified Codes: I10 - Essential (primary) hypertension Rich Gary MD August 22, 2017 10:20
[2017-08-22] MEDS: ACETAMINOPHEN 325 MG TAB PO PRN (10:39)
[2017-08-22] MEDS: VANCOMYCIN INJ 1,750 MG in SODIUM CHLORID 0.9% 500 ML INJ 500 ML IV SCH ×2 (10:40→23:33)
[2017-08-22] MEDS: INSULIN ASPART SUPPLEMENTAL SCALE SQ SCH ×4 (10:41→20:00)
--- NOTE | 2017-08-22 10:53 | HHI.IDPN ---
Subjective Subjective Remarks Mr. Salcedo is a 66-year-old male with past medical history of nonischemic cardiomyopathy with EF 25%,, diabetes mellitus, peripheral vascular disease status post left below-knee amputation in the past. With this background patient presents to the emergency department with acute onset of shortness of breath and altered mental status. Patient was reportedly at the skilled nursing and his O2 sats dropped and given his history of COPD EMS was called when EMS saw the patient he developed agonal breathing with O2 sats in the low 80s and pink frothy sputum. Patient was intubated in the field. Patient's blood pressure following intubation dropped from systolic in 190s-60s systolic and patient was started on dopamine in the field by EMS. Patient was admitted to critical care services and underwent sepsis workup. Patient also underwent a CT chest to evaluate for PE which was negative. However it did show severe emphysematous changes with groundglass opacities. Patient has been started on aztreonam IV due to his history of rash to cefaclor. Clinically patient appears to be doing better and his chest x-ray has improved. RN reports that he continues to have some bloody secretions and there was a blood clot noted yesterday. But no active bleeding noted. Concern for possible ongoing aspiration given bleeding. At the time of my evaluation patient is in the ICU currently intubated. Patient underwent CPAP trial but failed. Respiratory therapist notes blood tinged secretions. Urine output okay Patient has had fevers as well as leukocytosis despite steroids being tapered off. Infectious disease consulted for evaluation and management of new fevers as well as increasing leukocytosis despite decreasing steroids. And also concern for Pseudomonas pneumonia. Overnight events reviewed with RN fevers 101 F Tachycardia BP 77/48 On vent secretions thick schmitt moderate No rash Diarrhea: black tarry stools. Antibiotics Cefepime IV Flagyl oral Lines Line sites with no e.o infection Past Medical History Past Medical History Per review of records Nonischemic cardiomyopathy with EF of 25% on July 2014 cardiac cath report. EF of 60% on January 2015 echo. History of acalculous cholecystitis status post biliary drain placement and subsequent cholecystectomy. Severe COPD Coronary artery disease status post coronary artery bypass in March 2014. Diabetes mellitus Hyperlipidemia Hypertension Paroxysmal atrial fibrillation Peripheral vascular disease status post left external iliac stent, bilateral femoral endarterectomies, bilateral profundoplasty, femorofemoral and aortobifemoral bypasses on May 07, 2014 as well as status post left femoral anterior tibial bypass and amputation of the left first and second toes in April 2016. Thereafter patient underwent a left below-knee amputation in May 01, 2016. Past Surgical History Per review of records Cardiac cath Coronary artery bypass graft in March 2014 Peripheral vascular disease with multiple bypasses in the lower extremities. Left below-knee amputation Allergies: Coded Allergies: cefaclor (Verified Allergy, Intermediate, rash, 06/28/17) Objective . Vital Signs Date Time Temp Pulse Resp B/P (MAP) Pulse Ox O2 Delivery O2 Flow Rate FiO2 08/22/17 09:04 35 08/22/17 08:12 97 35 08/22/17 08:00 101.3 134 32 88/55 (66) 99 08/22/17 06:00 120 08/22/17 04:00 35 08/22/17 04:00 118 08/22/17 04:00 99.0 119 14 80/51 (61) 100 08/22/17 03:48 99 35 08/22/17 03:00 118 20 78/48 (58) 99 08/22/17 02:00 121 14 85/53 (64) 99 08/22/17 01:00 124 20 96/55 (69) 100 08/22/17 00:00 116 08/22/17 00:00 98.8 121 18 101/56 (71) 100 08/22/17 00:00 35 08/21/17 23:00 125 19 120/68 (85) 100 08/21/17 22:54 99 35 08/21/17 22:00 127 37 110/66 (81) 98 08/21/17 22:00 120 08/21/17 21:00 117 14 87/54 (65) 99 08/21/17 20:00 117 08/21/17 20:00 98.0 117 14 92/50 (64) 100 08/21/17 20:00 35 08/21/17 19:36 100 35 08/21/17 18:00 119 08/21/17 16:00 98.6 118 17 110/64 (79) 100 08/21/17 16:00 118 08/21/17 16:00 35 08/21/17 15:51 98 35 08/21/17 14:00 117 08/21/17 12:00 98.5 86 18 69/40 (50) 100 08/21/17 12:00 40 08/21/17 12:00 86 08/21/17 11:28 100 35 08/21/17 11:27 35 . Laboratory Tests Test 08/21/17 15:39 White Blood Count 27.5 TH/MM3 Red Blood Count 2.90 MIL/MM3 Hemoglobin 8.8 GM/DL Hematocrit 27.9 % Mean Corpuscular Volume 96.1 FL Mean Corpuscular Hemoglobin 30.3 PG Mean Corpuscular Hemoglobin Concent 31.5 % Red Cell Distribution Width 19.0 % Platelet Count 146 TH/MM3 Mean Platelet Volume 10.3 FL Neutrophils (%) (Auto) 93.9 % Lymphocytes (%) (Auto) 1.7 % Monocytes (%) (Auto) 4.3 % Eosinophils (%) (Auto) 0.0 % Basophils (%) (Auto) 0.1 % Neutrophils # (Auto) 25.8 TH/MM3 Lymphocytes # (Auto) 0.5 TH/MM3 Monocytes # (Auto) 1.2 TH/MM3 Eosinophils # (Auto) 0.0 TH/MM3 Basophils # (Auto) 0.0 TH/MM3 CBC Comment AUTO DIFF Differential Total Cells Counted 100 Neutrophils % (Manual) 95 % Band Neutrophils % 1 % Lymphocytes % 1 % Monocytes % 1 % Neutrophils # (Manual) 27.0 TH/MM3 Metamyelocytes 1 % Promyelocytes 1 % Differential Comment FINAL DIFF MANUAL Toxic Granulation 2+ Platelet Estimate NORMAL Platelet Morphology Comment NORMAL Laboratory Tests Test 08/21/17 15:29 Blood Urea Nitrogen 59 MG/DL Creatinine 0.87 MG/DL Random Glucose 286 MG/DL Total Protein 5.4 GM/DL Albumin 2.0 GM/DL Calcium Level 8.4 MG/DL Alkaline Phosphatase 67 U/L Aspartate Amino Transf (AST/SGOT) 25 U/L Alanine Aminotransferase (ALT/SGPT) 17 U/L Total Bilirubin 0.3 MG/DL Sodium Level 155 MEQ/L Potassium Level 4.7 MEQ/L Chloride Level 115 MEQ/L Carbon Dioxide Level 35.6 MEQ/L Anion Gap 4 MEQ/L Estimat Glomerular Filtration Rate 88 ML/MIN Microbiology Date/Time Source Procedure Growth Status 08/21/17 19:30 Stool Stool Stool Occult Blood (JABIER) - Final HEMOCCULT POSITIVE Complete Imaging Last Impressions Chest X-Ray 08/21/17 0600 Signed Impressions: Service Date/Time: Monday, August 21, 2017 04:09 - CONCLUSION: Clear lungs. Ricki Metzger Jr., MD CT Angiography 08/13/17 0000 Signed Impressions: Service Date/Time: Sunday, August 13, 2017 07:25 - CONCLUSION: 1. No CT evidence for pulmonary embolism as questioned. 2. Moderate to severe upper lobe predominant centrilobular emphysema. 3. Patchy bibasilar groundglass opacities likely reflecting atelectasis although differential considerations include aspiration. 4. Multiple 4-6mm bilateral groundglass and solid nodules, likely infectious/inflammatory. Recommend followup CT examination in approximately 6 months per 2017 Fleischner criteria (6mm nodule). Steve Barajas MD Physical Exam GENERAL: This is a well-nourished, well-developed patient, in no apparent distress. SKIN: No rashes, ecchymoses or lesions. Cool and dry. HEAD: Atraumatic. Normocephalic. No temporal or scalp tenderness. EYES: Pupils equal round and reactive. Extraocular motions intact. No scleral icterus. No injection or drainage. ENT: Intubated. NECK: Trachea midline. Supple, nontender, no meningeal signs. CARDIOVASCULAR: HS audible. No murmur appreciated. RESPIRATORY: Clear to auscultation. Breath sounds decreased in bases. GASTROINTESTINAL: Abdomen soft, non-tender, nondistended. MUSCULOSKELETAL: Left leg BKA site ok. NEUROLOGICAL: Opens eyes.Non focal exam. Did not follow commands Psych could not be assessed. IV line sites with no e.o infection Assessment & Plan Remarks New Severe Sepsis. Possible new Hosp associated infection (PNA, UTI) Acute resp failure on vent Acute metabolic encephalopathy: infection, metabolic Pseudomonas pneumonitis in setting of aspiration was being treated. Recs Continue Cefepime IV (override Cefaclor rash allergy in chart for now) continue flagyl Continue Vanco IV (target 15-20) Start Micafungin IV(has been on broad spectrum antibiotics is at risk for fungemia) follow stool Cdiff. Empiric oral vanco pending Cdiff results. If Cdiff negative ok to stop oral vanco but continue flagyl for anaerobic coverage. Follow cultures Follow clinically. Critically ill. Sofia Crawford MD August 22, 2017 10:53
[2017-08-22] MEDS ORDERED: VANCOMYCIN INJ 1,250 MG in SODIUM CHLOR 0.9% 250 ML INJ 250 ML IV ONE (11:00)
[2017-08-22 11:25] LABS: BASOPHIL % 0.1 % (0.0-2.0); HEMATOCRIT 26.3 % (39.0-51.0); HEMOGLOBIN 7.9 GM/DL (13.0-17.0); LYMPH % 2.2 % (9.0-44.0); LYMPHOCYTE # 0.6 TH/MM3 (1.0-4.8); MEAN CELL VOLUME 96.2 FL (80.0-100.0); MEAN CORPUSCULAR HEMOGLOBIN 28.8 PG (27.0-34.0); MONO % 5.4 % (0.0-8.0); MONOCYTE # 1.5 TH/MM3 (0-0.9); NEUT % 92.3 % (16.0-70.0); PLATELET COUNT 222 TH/MM3 (150-450); RED BLOOD COUNT 2.73 MIL/MM3 (4.50-5.90); RED CELL DISTRIBUTION WIDTH 19.1 % (11.6-17.2); WHITE BLOOD COUNT 28.2 TH/MM3 (4.0-11.0)
[2017-08-22 11:58] LABS: ALBUMIN 1.8 GM/DL (3.4-5.0); ALKALINE PHOSPHATASE 56 U/L (45-117); ALT (GPT) 17 U/L (12-78); AST (GOT) 30 U/L (15-37); BLOOD UREA NITROGEN 78 MG/DL (7-18); CALCIUM 7.8 MG/DL (8.5-10.1); CHLORIDE 119 MEQ/L (98-107); CREATININE 0.91 MG/DL (0.60-1.30); GLOMERULAR FILTRATION RATE 84 ML/MIN (>89); GLUCOSE,RANDOM 194 MG/DL (74-106); MAGNESIUM 2.9 MG/DL (1.5-2.5); TOTAL BILIRUBIN ADULT 0.3 MG/DL (0.2-1.0); TOTAL PROTEIN 5.1 GM/DL (6.4-8.2)
[2017-08-22 11:59] LABS: BICARBONATE 35.4 MEQ/L (21.0-32.0)
[2017-08-22 12:00] LABS: SODIUM (NA) 158 MEQ/L (136-145)
--- NOTE | 2017-08-22 12:29 | HHI.IDPN ---
Subjective Subjective Remarks Mr. Salcedo is a 66-year-old male with past medical history of nonischemic cardiomyopathy with EF 25%,, diabetes mellitus, peripheral vascular disease status post left below-knee amputation in the past. With this background patient presents to the emergency department with acute onset of shortness of breath and altered mental status. Patient was reportedly at the longterm and his O2 sats dropped and given his history of COPD EMS was called when EMS saw the patient he developed agonal breathing with O2 sats in the low 80s and pink frothy sputum. Patient was intubated in the field. Patient's blood pressure following intubation dropped from systolic in 190s-60s systolic and patient was started on dopamine in the field by EMS. Patient was admitted to critical care services and underwent sepsis workup. Patient also underwent a CT chest to evaluate for PE which was negative. However it did show severe emphysematous changes with groundglass opacities. Patient has been started on aztreonam IV due to his history of rash to cefaclor. Clinically patient appears to be doing better and his chest x-ray has improved. RN reports that he continues to have some bloody secretions and there was a blood clot noted yesterday. But no active bleeding noted. Concern for possible ongoing aspiration given bleeding. At the time of my evaluation patient is in the ICU currently intubated. Patient underwent CPAP trial but failed. Respiratory therapist notes blood tinged secretions. Urine output okay Patient has had fevers as well as leukocytosis despite steroids being tapered off. Infectious disease consulted for evaluation and management of new fevers as well as increasing leukocytosis despite decreasing steroids. And also concern for Pseudomonas pneumonia. Overnight events reviewed with RN fevers 101 F Tachycardia BP 77/48 On vent secretions thick schmitt moderate No rash Diarrhea: black tarry stools. Antibiotics Cefepime IV Flagyl oral Lines Line sites with no e.o infection Past Medical History Past Medical History Per review of records Nonischemic cardiomyopathy with EF of 25% on July 2014 cardiac cath report. EF of 60% on January 2015 echo. History of acalculous cholecystitis status post biliary drain placement and subsequent cholecystectomy. Severe COPD Coronary artery disease status post coronary artery bypass in March 2014. Diabetes mellitus Hyperlipidemia Hypertension Paroxysmal atrial fibrillation Peripheral vascular disease status post left external iliac stent, bilateral femoral endarterectomies, bilateral profundoplasty, femorofemoral and aortobifemoral bypasses on May 07, 2014 as well as status post left femoral anterior tibial bypass and amputation of the left first and second toes in April 2016. Thereafter patient underwent a left below-knee amputation in May 01, 2016. Past Surgical History Per review of records Cardiac cath Coronary artery bypass graft in March 2014 Peripheral vascular disease with multiple bypasses in the lower extremities. Left below-knee amputation Allergies: Coded Allergies: cefaclor (Verified Allergy, Intermediate, rash, 06/28/17) Objective . Vital Signs Date Time Temp Pulse Resp B/P (MAP) Pulse Ox O2 Delivery O2 Flow Rate FiO2 08/22/17 11:00 98 35 08/22/17 09:04 35 08/22/17 08:12 97 35 08/22/17 08:00 101.3 134 32 88/55 (66) 99 08/22/17 06:00 120 08/22/17 04:00 35 08/22/17 04:00 118 08/22/17 04:00 99.0 119 14 80/51 (61) 100 08/22/17 03:48 99 35 08/22/17 03:00 118 20 78/48 (58) 99 08/22/17 02:00 121 14 85/53 (64) 99 08/22/17 01:00 124 20 96/55 (69) 100 08/22/17 00:00 116 08/22/17 00:00 98.8 121 18 101/56 (71) 100 08/22/17 00:00 35 08/21/17 23:00 125 19 120/68 (85) 100 08/21/17 22:54 99 35 08/21/17 22:00 127 37 110/66 (81) 98 08/21/17 22:00 120 08/21/17 21:00 117 14 87/54 (65) 99 08/21/17 20:00 117 08/21/17 20:00 98.0 117 14 92/50 (64) 100 08/21/17 20:00 35 08/21/17 19:36 100 35 08/21/17 18:00 119 08/21/17 16:00 98.6 118 17 110/64 (79) 100 08/21/17 16:00 118 08/21/17 16:00 35 08/21/17 15:51 98 35 08/21/17 14:00 117 . Laboratory Tests Test 08/21/17 15:39 08/22/17 09:45 White Blood Count 27.5 TH/MM3 28.2 TH/MM3 Red Blood Count 2.90 MIL/MM3 2.73 MIL/MM3 Hemoglobin 8.8 GM/DL 7.9 GM/DL Hematocrit 27.9 % 26.3 % Mean Corpuscular Volume 96.1 FL 96.2 FL Mean Corpuscular Hemoglobin 30.3 PG 28.8 PG Mean Corpuscular Hemoglobin Concent 31.5 % 30.0 % Red Cell Distribution Width 19.0 % 19.1 % Platelet Count 146 TH/MM3 222 TH/MM3 Mean Platelet Volume 10.3 FL 11.0 FL Neutrophils (%) (Auto) 93.9 % 92.3 % Lymphocytes (%) (Auto) 1.7 % 2.2 % Monocytes (%) (Auto) 4.3 % 5.4 % Eosinophils (%) (Auto) 0.0 % 0.0 % Basophils (%) (Auto) 0.1 % 0.1 % Neutrophils # (Auto) 25.8 TH/MM3 26.0 TH/MM3 Lymphocytes # (Auto) 0.5 TH/MM3 0.6 TH/MM3 Monocytes # (Auto) 1.2 TH/MM3 1.5 TH/MM3 Eosinophils # (Auto) 0.0 TH/MM3 0.0 TH/MM3 Basophils # (Auto) 0.0 TH/MM3 0.0 TH/MM3 CBC Comment AUTO DIFF DIFF FINAL Differential Total Cells Counted 100 Neutrophils % (Manual) 95 % Band Neutrophils % 1 % Lymphocytes % 1 % Monocytes % 1 % Neutrophils # (Manual) 27.0 TH/MM3 Metamyelocytes 1 % Promyelocytes 1 % Differential Comment FINAL DIFF MANUAL Toxic Granulation 2+ Platelet Estimate NORMAL Platelet Morphology Comment NORMAL Laboratory Tests Test 08/21/17 15:29 08/22/17 09:45 Blood Urea Nitrogen 59 MG/DL 78 MG/DL Creatinine 0.87 MG/DL 0.91 MG/DL Random Glucose 286 MG/DL 194 MG/DL Total Protein 5.4 GM/DL 5.1 GM/DL Albumin 2.0 GM/DL 1.8 GM/DL Calcium Level 8.4 MG/DL 7.8 MG/DL Alkaline Phosphatase 67 U/L 56 U/L Aspartate Amino Transf (AST/SGOT) 25 U/L 30 U/L Alanine Aminotransferase (ALT/SGPT) 17 U/L 17 U/L Total Bilirubin 0.3 MG/DL 0.3 MG/DL Sodium Level 155 MEQ/L 158 MEQ/L Potassium Level 4.7 MEQ/L 5.0 MEQ/L Chloride Level 115 MEQ/L 119 MEQ/L Carbon Dioxide Level 35.6 MEQ/L 35.4 MEQ/L Anion Gap 4 MEQ/L 4 MEQ/L Estimat Glomerular Filtration Rate 88 ML/MIN 84 ML/MIN Magnesium Level 2.9 MG/DL Microbiology Date/Time Source Procedure Growth Status 08/22/17 09:54 Blood Peripheral Aerobic Blood Culture Pending Received 08/22/17 09:54 Blood Peripheral Anaerobic Blood Culture Pending Received 08/22/17 09:45 Blood Peripheral Aerobic Blood Culture Pending Received 08/22/17 09:45 Blood Peripheral Anaerobic Blood Culture Pending Received 08/21/17 19:30 Stool Stool Stool Occult Blood (JABIER) - Final HEMOCCULT POSITIVE Complete 08/22/17 10:50 Sputum Endotracheal Gram Stain Pending Received 08/22/17 10:50 Sputum Endotracheal Sputum Culture Pending Received 08/22/17 10:50 Urine Catheterized Urine Urine Culture Pending Received Imaging Last Impressions Chest X-Ray 08/21/17 0600 Signed Impressions: Service Date/Time: Monday, August 21, 2017 04:09 - CONCLUSION: Clear lungs. Ricki Metzger Jr., MD CT Angiography 08/13/17 0000 Signed Impressions: Service Date/Time: Sunday, August 13, 2017 07:25 - CONCLUSION: 1. No CT evidence for pulmonary embolism as questioned. 2. Moderate to severe upper lobe predominant centrilobular emphysema. 3. Patchy bibasilar groundglass opacities likely reflecting atelectasis although differential considerations include aspiration. 4. Multiple 4-6mm bilateral groundglass and solid nodules, likely infectious/inflammatory. Recommend followup CT examination in approximately 6 months per 2017 Fleischner criteria (6mm nodule). Steve Barajas MD Physical Exam GENERAL: This is a well-nourished, well-developed patient, in no apparent distress. SKIN: No rashes, ecchymoses or lesions. Cool and dry. HEAD: Atraumatic. Normocephalic. No temporal or scalp tenderness. EYES: Pupils equal round and reactive. Extraocular motions intact. No scleral icterus. No injection or drainage. ENT: Intubated. NECK: Trachea midline. Supple, nontender, no meningeal signs. CARDIOVASCULAR: HS audible. No murmur appreciated. RESPIRATORY: Clear to auscultation. Breath sounds decreased in bases. GASTROINTESTINAL: Abdomen soft, non-tender, nondistended. MUSCULOSKELETAL: Left leg BKA site ok. NEUROLOGICAL: Opens eyes.Non focal exam. Did not follow commands Psych could not be assessed. IV line sites with no e.o infection Assessment & Plan Remarks New Severe Sepsis. Possible new Hosp associated infection (PNA, UTI) Acute resp failure on vent Acute metabolic encephalopathy: infection, metabolic Pseudomonas pneumonitis in setting of aspiration was being treated. Recs Continue Cefepime IV (override Cefaclor rash allergy in chart for now) continue flagyl Continue Vanco IV (target 15-20) Start Micafungin IV(has been on broad spectrum antibiotics is at risk for fungemia) follow stool Cdiff. Empiric oral vanco pending Cdiff results. If Cdiff negative ok to stop oral vanco but continue flagyl for anaerobic coverage. Follow cultures Follow clinically. Critically ill. Sofia Crawford MD August 22, 2017 12:29
[2017-08-22] MEDS: VANCOMYCIN 500 MG VIAL (FOR ORAL USE ONLY) PO SCH ×3 (12:45→20:57)
[2017-08-22] MEDS: MICAFUNGIN INJ 150 MG in SODIUM CHLORIDE 0.9% INJ 100 ML IV SCH (12:46)
--- NOTE | 2017-08-22 15:46 | HHI.HCPN ---
Reason for visit a. To assist with evaluation and management of symptoms including: dyspnea, pain b. To assist medical decision maker(s) with: better understanding of current medical conditions; weighing benefits/burdens of medical treatment options; making medical treatment decisions. . Subjective/Interval History Mr. Salcedo is a 66 admitted with hypoxic respiratory failure. Follow-up visit for symptom management of pain and dyspnea as well as clarification of medical treatment goals. Patient seen and assessed [place] [facility] [facility]. No family at bedside. Patient remains intubated on mechanical ventilation with moderate amount of thick, schmitt secretions; tolerated CPAP trial for only 5 minutes this morning secondary to increased respiratory rate. FiO2 35%; rate 14; PEEP 5. Follow-up chest x-ray this morning showing biapical emphysematous changes and developing left base infiltrate. Patient is now febrile with worsening leukocytosis and sepsis, likely secondary to pneumonia. T-max 101.3 this morning; WBC 28.2. Pulse 111; respirations 22; BP 90/50. Sputum culture growing Pseudomonas on 08/13/2017; repeat cultures ( blood, urine and sputum) obtained and sent today 08/22/17. Lactic acid pending. On Cefepime and Flagyl; started on vancomycin and micafungin. Infectious disease following. Patient having liquid black stools-Hemoccult positive. H/H decreased to 7.9/ 26.3 today. C. difficile negative. Patient failed extubation on 08/16/17 and is not tolerating spontaneous breathing trials. He will likely require prolonged ventilatory support and possible tracheostomy given severe COPD. Palliative care met with the patient's family this afternoon to discuss the benefits and burdens of his current illnesses and the options regarding future care. Advanced care planning was discussed per family request; decisions regarding tracheostomy and PEG tube placement were specifically addressed. Family states that despite his complex medical history and frequent hospitalization, the patient was relatively independent and enjoyed life prior to this hospitalization. They are in agreement that the patient would want to proceed with tracheostomy sooner versus later. They verbalize hope that they will be able to have further conversations with the patient about his medical treatment goals and CODE STATUS in the future. Until that time, GOALS REMAIN AGGRESSIVE. . Family/friend interactions See interval note . Advance Directives Living Will: Copy in medical record Advance Directive Specifics Documented care wishes: Living will appears to be completed on April 19, 2014. Document can be viewed in patient's EMR. . Objective Vital Signs Date Time Temp Pulse Resp B/P (MAP) Pulse Ox O2 Delivery O2 Flow Rate FiO2 08/22/17 14:00 113 08/22/17 12:00 111 08/22/17 12:00 98.7 111 22 90/50 (63) 98 08/22/17 11:00 98 35 08/22/17 10:00 96 08/22/17 09:04 35 08/22/17 08:12 97 35 08/22/17 08:00 101.3 134 32 88/55 (66) 99 08/22/17 08:00 134 08/22/17 06:00 120 08/22/17 04:00 35 08/22/17 04:00 118 08/22/17 04:00 99.0 119 14 80/51 (61) 100 08/22/17 03:48 99 35 08/22/17 03:00 118 20 78/48 (58) 99 08/22/17 02:00 121 14 85/53 (64) 99 08/22/17 01:00 124 20 96/55 (69) 100 08/22/17 00:00 116 08/22/17 00:00 98.8 121 18 101/56 (71) 100 08/22/17 00:00 35 08/21/17 23:00 125 19 120/68 (85) 100 08/21/17 22:54 99 35 08/21/17 22:00 127 37 110/66 (81) 98 08/21/17 22:00 120 08/21/17 21:00 117 14 87/54 (65) 99 08/21/17 20:00 117 08/21/17 20:00 98.0 117 14 92/50 (64) 100 08/21/17 20:00 35 08/21/17 19:36 100 35 08/21/17 18:00 119 08/21/17 16:00 98.6 118 17 110/64 (79) 100 08/21/17 16:00 118 08/21/17 16:00 35 08/21/17 15:51 98 35 Intake & Output 08/22/17 08/22/17 07:00 19:00 Intake Total 1220 ml Output Total 550 ml Balance 670 ml IV Total 259 ml Tube Feeding 761 ml Other 200 ml Output Urine Total 550 ml # Bowel Movements 2 . Physical Exam CONSTITUTIONAL/GENERAL: This is an adequately nourished patient intubated on mechanical vent TUBES/LINES/DRAINS: PIV x 3, Floey, ETT, OGT SKIN: Ecchymoses and abrasions on upper extremities. No wounds seen anteriorly. Skin temperature appropriate. Not diaphoretic. HEAD: Atraumatic. Normocephalic. EYES: Pupils equal and round and reactive. Extraocular motions intact. No scleral icterus. No injection or drainage. Fundi not examined. ENT: Hearing grossly normal. Nose without bleeding or purulent drainage. NECK: Trachea midline. Supple, nontender. No palpable thyroid enlargement or nodularity. CARDIOVASCULAR: Tachycardic without murmurs, gallops, or rubs. No JVD. Peripheral pulses symmetric. RESPIRATORY/CHEST: Tachypneic. Breath sounds diminished bilaterally. No wheezes , rales, or rhonchi. GASTROINTESTINAL: Abdomen soft, non-tender, nondistended. No hepato-splenomegaly , or palpable masses. No guarding. Bowel sounds present. GENITOURINARY: Without palpable bladder distension. Lopez catheter in place. MUSCULOSKELETAL: Extremities without clubbing or cyanosis. Left BKA. Hands swollen bilaterally; right foot dry with vascular changes noted. LYMPHATICS: No palpable cervical or supraclavicular adenopathy. NEUROLOGICAL: Awake on Versed drip. Opens eyes to verbal stimuli. Able to follow simple one-step commands. PSYCHIATRIC: No obvious anxiety/depression. No apparent hallucinations or other psychotic thought process. . Diagnostic Tests Laboratory Laboratory Tests Test 08/20/17 03:32 08/20/17 08:16 08/20/17 09:53 08/20/17 12:35 Blood Urea Nitrogen 51 MG/DL (7-18) Creatinine 0.86 MG/DL (0.60-1.30) Random Glucose 392 MG/DL (74-106) Total Protein 5.1 GM/DL (6.4-8.2) Albumin 1.9 GM/DL (3.4-5.0) Calcium Level 8.2 MG/DL (8.5-10.1) Alkaline Phosphatase 66 U/L (45-117) Aspartate Amino Transf (AST/SGOT) 20 U/L (15-37) Alanine Aminotransferase (ALT/SGPT) 19 U/L (12-78) Total Bilirubin 0.2 MG/DL (0.2-1.0) Sodium Level 152 MEQ/L (136-145) Potassium Level 4.4 MEQ/L (3.5-5.1) Chloride Level 111 MEQ/L (98-107) Carbon Dioxide Level 34.8 MEQ/L (21.0-32.0) Anion Gap 6 MEQ/L (5-15) Estimat Glomerular Filtration Rate 89 ML/MIN (>89) White Blood Count 21.1 TH/MM3 (4.0-11.0) Red Blood Count 2.88 MIL/MM3 (4.50-5.90) Hemoglobin 8.4 GM/DL (13.0-17.0) Hematocrit 27.0 % (39.0-51.0) Mean Corpuscular Volume 93.6 FL (80.0-100.0) Mean Corpuscular Hemoglobin 29.3 PG (27.0-34.0) Mean Corpuscular Hemoglobin Concent 31.3 % (32.0-36.0) Red Cell Distribution Width 18.8 % (11.6-17.2) Platelet Count 208 TH/MM3 (150-450) Mean Platelet Volume 9.8 FL (7.0-11.0) Neutrophils (%) (Auto) 91.6 % (16.0-70.0) Lymphocytes (%) (Auto) 3.3 % (9.0-44.0) Monocytes (%) (Auto) 5.1 % (0.0-8.0) Eosinophils (%) (Auto) 0.0 % (0.0-4.0) Basophils (%) (Auto) 0.0 % (0.0-2.0) Neutrophils # (Auto) 19.3 TH/MM3 (1.8-7.7) Lymphocytes # (Auto) 0.7 TH/MM3 (1.0-4.8) Monocytes # (Auto) 1.1 TH/MM3 (0-0.9) Eosinophils # (Auto) 0.0 TH/MM3 (0-0.4) Basophils # (Auto) 0.0 TH/MM3 (0-0.2) CBC Comment AUTO DIFF Differential Total Cells Counted 100 Neutrophils % (Manual) 85 % (16-70) Band Neutrophils % 2 % (0-6) Lymphocytes % 7 % (9-44) Monocytes % 4 % (0-8) Neutrophils # (Manual) 18.8 TH/MM3 (1.8-7.7) Metamyelocytes 1 % (0-1) Myelocytes 1 % (0-0) Nucleated Red Blood Cells 2 /100 WBC (0-0) Differential Comment FINAL DIFF MANUAL Toxic Granulation 2+ (NORMAL) Platelet Estimate NORMAL (NORMAL) Platelet Morphology Comment NORMAL (NORMAL) Activated Partial Thromboplast Time 17.9 SEC (24.3-30.1) Hepatitis A IgM Antibody NONREACTIVE (NONREACTIVE) Hepatitis B Surface Antigen NONREACTIVE (NONREACTIVE) Hepatitis B Core IgM Antibody NONREACTIVE (NONREACTIVE) Hepatitis C IgG Antibody NONREACTIVE (NONREACTIVE) Test 08/21/17 15:29 08/21/17 15:39 08/22/17 09:45 08/22/17 10:50 Activated Partial Thromboplast Time 22.5 SEC (24.3-30.1) 19.2 SEC (24.3-30.1) Blood Urea Nitrogen 59 MG/DL (7-18) 78 MG/DL (7-18) Creatinine 0.87 MG/DL (0.60-1.30) 0.91 MG/DL (0.60-1.30) Random Glucose 286 MG/DL (74-106) 194 MG/DL (74-106) Total Protein 5.4 GM/DL (6.4-8.2) 5.1 GM/DL (6.4-8.2) Albumin 2.0 GM/DL (3.4-5.0) 1.8 GM/DL (3.4-5.0) Calcium Level 8.4 MG/DL (8.5-10.1) 7.8 MG/DL (8.5-10.1) Alkaline Phosphatase 67 U/L (45-117) 56 U/L (45-117) Aspartate Amino Transf (AST/SGOT) 25 U/L (15-37) 30 U/L (15-37) Alanine Aminotransferase (ALT/SGPT) 17 U/L (12-78) 17 U/L (12-78) Total Bilirubin 0.3 MG/DL (0.2-1.0) 0.3 MG/DL (0.2-1.0) Sodium Level 155 MEQ/L (136-145) 158 MEQ/L (136-145) Potassium Level 4.7 MEQ/L (3.5-5.1) 5.0 MEQ/L (3.5-5.1) Chloride Level 115 MEQ/L (98-107) 119 MEQ/L (98-107) Carbon Dioxide Level 35.6 MEQ/L (21.0-32.0) 35.4 MEQ/L (21.0-32.0) Anion Gap 4 MEQ/L (5-15) 4 MEQ/L (5-15) Estimat Glomerular Filtration Rate 88 ML/MIN (>89) 84 ML/MIN (>89) White Blood Count 27.5 TH/MM3 (4.0-11.0) 28.2 TH/MM3 (4.0-11.0) Red Blood Count 2.90 MIL/MM3 (4.50-5.90) 2.73 MIL/MM3 (4.50-5.90) Hemoglobin 8.8 GM/DL (13.0-17.0) 7.9 GM/DL (13.0-17.0) Hematocrit 27.9 % (39.0-51.0) 26.3 % (39.0-51.0) Mean Corpuscular Volume 96.1 FL (80.0-100.0) 96.2 FL (80.0-100.0) Mean Corpuscular Hemoglobin 30.3 PG (27.0-34.0) 28.8 PG (27.0-34.0) Mean Corpuscular Hemoglobin Concent 31.5 % (32.0-36.0) 30.0 % (32.0-36.0) Red Cell Distribution Width 19.0 % (11.6-17.2) 19.1 % (11.6-17.2) Platelet Count 146 TH/MM3 (150-450) 222 TH/MM3 (150-450) Mean Platelet Volume 10.3 FL (7.0-11.0) 11.0 FL (7.0-11.0) Neutrophils (%) (Auto) 93.9 % (16.0-70.0) 92.3 % (16.0-70.0) Lymphocytes (%) (Auto) 1.7 % (9.0-44.0) 2.2 % (9.0-44.0) Monocytes (%) (Auto) 4.3 % (0.0-8.0) 5.4 % (0.0-8.0) Eosinophils (%) (Auto) 0.0 % (0.0-4.0) 0.0 % (0.0-4.0) Basophils (%) (Auto) 0.1 % (0.0-2.0) 0.1 % (0.0-2.0) Neutrophils # (Auto) 25.8 TH/MM3 (1.8-7.7) 26.0 TH/MM3 (1.8-7.7) Lymphocytes # (Auto) 0.5 TH/MM3 (1.0-4.8) 0.6 TH/MM3 (1.0-4.8) Monocytes # (Auto) 1.2 TH/MM3 (0-0.9) 1.5 TH/MM3 (0-0.9) Eosinophils # (Auto) 0.0 TH/MM3 (0-0.4) 0.0 TH/MM3 (0-0.4) Basophils # (Auto) 0.0 TH/MM3 (0-0.2) 0.0 TH/MM3 (0-0.2) CBC Comment AUTO DIFF DIFF FINAL Differential Total Cells Counted 100 Neutrophils % (Manual) 95 % (16-70) Band Neutrophils % 1 % (0-6) Lymphocytes % 1 % (9-44) Monocytes % 1 % (0-8) Neutrophils # (Manual) 27.0 TH/MM3 (1.8-7.7) Metamyelocytes 1 % (0-1) Promyelocytes 1 % (0-0) Differential Comment FINAL DIFF MANUAL Toxic Granulation 2+ (NORMAL) Platelet Estimate NORMAL (NORMAL) Platelet Morphology Comment NORMAL (NORMAL) Magnesium Level 2.9 MG/DL (1.5-2.5) Stool C. difficile Toxin (PCR) NEGATIVE (NEGATIVE) Stl C. difficile Toxin Epiderm 027 PRESUMPTIVE NEGATIVE Test 08/22/17 14:28 . Result Diagram: 08/22/1745 08/22/17944 Microbiology Microbiology Date/Time Source Procedure Growth Status 08/22/17 09:54 Blood Peripheral Aerobic Blood Culture Pending Received 08/22/17 09:54 Blood Peripheral Anaerobic Blood Culture Pending Received 08/22/17 09:45 Blood Peripheral Aerobic Blood Culture Pending Received 08/22/17 09:45 Blood Peripheral Anaerobic Blood Culture Pending Received 08/21/17 19:30 Stool Stool Stool Occult Blood (JABIER) - Final HEMOCCULT POSITIVE Complete 08/22/17 10:50 Sputum Endotracheal Gram Stain Pending Received 08/22/17 10:50 Sputum Endotracheal Sputum Culture Pending Received 08/22/17 10:50 Urine Catheterized Urine Urine Culture Pending Received . Imaging Last 72 hours Impressions Chest X-Ray 08/22/17 0000 Signed Impressions: Service Date/Time: August 08:20 - CONCLUSION: 1. Biapical emphysematous changes, most severe in the right upper lobe. 2. Some developing airspace disease medially in the left base just above the diaphragm Joel Dhillon MD Chest X-Ray 08/21/17 0600 Signed Impressions: Service Date/Time: Monday, August 21, 2017 04:09 - CONCLUSION: Clear lungs. Ricki Metzger Jr., MD . Procedures 08/16/2017: Intubation/reintubation . Assessment and Plan Disease Oriented Problem List: (1) Peripheral vascular disease (2) Pseudomonas pneumonia (3) COPD exacerbation (4) Cardiomyopathy (5) DM type 2 (diabetes mellitus, type 2) (6) CAD (coronary artery disease) (7) COPD (chronic obstructive pulmonary disease) (8) Hyperlipidemia (9) Paroxysmal atrial fibrillation Symptom Scale: (1) Dyspnea (2) Pain Pertinent Non-Medical Issues Psychosocial: Patient is originally from [place]. Patient has been for many years. He has 1 adult daughter (Poly) and 2 grand-children. Grandson ( Tristin) and Granddaughter (Deo). Granddaughter (Deo) identifies as male and is to [facility]. Patient's highest education level is eighth grade. 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 Spiritual: Anabaptist shelbi Legal: Per [place] statutes, in the absence of written advanced directives health care proxy decision making falls to the patient's daughter (Poly). Ethical issues impacting care: No known ethical issues impacting care at this time. . Important Contacts Poly Salcedo, daughter: [phone] Tristin Salcedo, grandson: [phone] Deo Salcedo, granddaughter - identifies as male : [phone] ( to Grisel) Juan Carlos Salcedo, brother: [phone] . Prognosis Patient is a 66 yo male with significant lung disease resulting in 4 hospitalizations in the past 6 months. He is currently vent dependent and unable to tolerate CPAP trails; given his advanced lung disease it will be difficult to wean him off the ventilator without a tracheostomy. Given patient' s complex medical history, he will be high risk for ongoing complications and decline. . Code Status: Full Code Plan * FULL CODE * Decision-making: Patient does NOT have insight or judgment concerning his medical conditions at this time. Per [place] statutes, in the absence of written advanced directives health care proxy decision making falls to the patient's daughter (Poly). * AGGRESSIVE GOALS * Patient failed extubation on 08/16/17 and is not tolerating spontaneous breathing trials. He will likely require prolonged ventilatory support and possible tracheostomy given severe COPD. Palliative care met with the patient's family this afternoon to discuss the benefits and burdens of his current illnesses and the options regarding future care. * Advanced care planning was discussed per family request; decisions regarding tracheostomy and PEG tube placement were specifically addressed. Family states that despite his complex medical history and frequent hospitalization, the patient was relatively independent and enjoyed life prior to this hospitalization. They are in agreement that the patient would want to proceed with tracheostomy sooner versus later. They verbalize hope that they will be able to have further conversations with the patient about his medical treatment goals and CODE STATUS in the future. Until that time, GOALS REMAIN AGGRESSIVE. Total amount of time spent on advanced care planning was 18 minutes. * Discussed current medical treatment goals with RN (Narda) and Dr. Hernandez; notified of family's decision to proceed with tracheostomy. * Palliative care contact information provided to the patient's family * Symptom management: == Dyspnea: Patient admitted with severe dyspnea s/p being intubated in the field;unable to tolerate spontaneous breathing trails. CTA showed no evidence for pulmonary embolism; moderate to severe upper lobe predominant central lobular emphysema; patchy bibasilar ground-glass opacities likely reflecting atelectasis although differential considerations include aspiration; multiple 4-6mm bilateral ground-glass and solid nodules, likely infectious/ inflammatory. Sputum culture + Pseudomonas. Given his advanced lung disease it will be difficult to wean him off the ventilator without a tracheostomy. == Pain: Multifactoral. Patient has a known history of chronic back pain, CAD, severe peripheral vascular disease status post left BKA. Additional contributing factors may include invasive lines, immobility etc. PRN/titration orders for Precedex, Versed (drip and push) and Propofol. Being used cautiously even ongoing hypotension. * Positive care will continue to follow this patient throughout his hospitalization to establish stress, assist with symptom management and clarification of medical treatment goals. . Attestation To help prompt me to consider important information that might be impacting today's encounter and assessment, information from prior notes written by myself or my colleagues may have been "brought forward" into today's note. My signature on this note, however, is an attestation that I personally performed the exam, history, and/or decision-making noted today, and, unless otherwise indicated, the interactions with patient, family, and staff as well as the review of records all occurred today. I also attest that the listed assessment and stated plan reflect my best clinical judgment today based on the combination of historical information, prior notes, and today's exam/ interactions. When time spent is documented, it refers only to time spent today by the signer, or if indicated, combined time spent today by collaborating physician/nurse practitioner. . Judith Salazar August 22, 2017 15:46
[2017-08-22] MEDS: [UNRECOGNIZED DRUG - OTHER] IV SCH ×4 (17:01→23:58)
[2017-08-22] MEDS: ATORVASTATIN 40 MG TAB PO SCH (20:57)
[2017-08-22] MEDS: fentaNYL DRIP 250 ML IV PRN (20:57)
[2017-08-23] VITALS (18 sets, daily range): BP systolic 119–156; BP diastolic 66–75; PULSE 76–122; RESP 19–21; TEMP 98–99.2; O2SAT 100
[2017-08-23] MEDS: RESP: ALBUTEROL 2.5 MG/IPRATROPIUM 0.5 MG NEB (SCH) INH ×6 (00:03→19:51)
[2017-08-23] MEDS: INSULIN ASPART SUPPLEMENTAL SCALE SQ SCH ×6 (00:48→20:00)
[2017-08-23] MEDS: CEFEPIME INJ 2,000 MG in SODIUM CHLORIDE 0.9% INJ 100 ML IV SCH ×3 (03:56→20:22)
[2017-08-23] MEDS: CHLORHEXIDINE GLUCONATE 2 % 1 PACK (2 CLOTHS) TOP SCH (03:57)
[2017-08-23 04:33] LABS: AUTOMATED NEUTROPHIL # 24.7 TH/MM3 (1.8-7.7); BASOPHIL % 0.1 % (0.0-2.0); HEMATOCRIT 23.4 % (39.0-51.0); HEMOGLOBIN 7.2 GM/DL (13.0-17.0); LYMPH % 2.7 % (9.0-44.0); LYMPHOCYTE # 0.7 TH/MM3 (1.0-4.8); MEAN CELL VOLUME 95.9 FL (80.0-100.0); MEAN CORPUSCULAR HEMOGLOBIN 29.5 PG (27.0-34.0); MEAN CORPUSCULAR HGB CONC 30.7 % (32.0-36.0); MEAN PLATELET VOLUME 11.2 FL (7.0-11.0); MONO % 4.3 % (0.0-8.0); MONOCYTE # 1.2 TH/MM3 (0-0.9); NEUT % 92.9 % (16.0-70.0); PLATELET COUNT 176 TH/MM3 (150-450); RED BLOOD COUNT 2.44 MIL/MM3 (4.50-5.90); RED CELL DISTRIBUTION WIDTH 18.9 % (11.6-17.2); WHITE BLOOD COUNT 26.6 TH/MM3 (4.0-11.0)
[2017-08-23 04:59] LABS: ALBUMIN 1.7 GM/DL (3.4-5.0); ALT (GPT) 17 U/L (12-78); AST (GOT) 41 U/L (15-37); BICARBONATE 32.5 MEQ/L (21.0-32.0); BLOOD UREA NITROGEN 85 MG/DL (7-18); CALCIUM 7.5 MG/DL (8.5-10.1); CHLORIDE 118 MEQ/L (98-107); CREATININE 0.85 MG/DL (0.60-1.30); GLOMERULAR FILTRATION RATE 90 ML/MIN (>89); GLUCOSE,RANDOM 145 MG/DL (74-106); MAGNESIUM 2.7 MG/DL (1.5-2.5); SODIUM (NA) 154 MEQ/L (136-145)
[2017-08-23 05:01] LABS: ALKALINE PHOSPHATASE 49 U/L (45-117); TOTAL BILIRUBIN ADULT 0.4 MG/DL (0.2-1.0); TOTAL PROTEIN 4.8 GM/DL (6.4-8.2)
[2017-08-23] MEDS: metroNIDAZOLE 500 MG TAB OG-TUBE SCH ×3 (05:27→20:24)
[2017-08-23] MEDS: [UNRECOGNIZED DRUG - OTHER] IV SCH ×4 (05:58→18:33)
[2017-08-23] MEDS ORDERED: MIDAZOLAM HCL 2 MG/2 ML VIAL IV PUSH ONE (06:30)
[2017-08-23] MEDS ORDERED: ROCURONIUM INJ 100 MG/10 ML VIAL IV ONE (06:30)
--- NOTE | 2017-08-23 06:33 | RADRPT ---
EXAM DATE/TIME: 08/23/2017 04:23 [facility] COMPARISON: CHEST SINGLE AP, August 22, 2017, 8:20. INDICATIONS : Respiratory disease. MEDICAL HISTORY : Cerebrovascular disease. Congestive heart failure. Hypertension. Diabetes SURGICAL HISTORY : CABG. Abdominal aortic aneurysm repair. Cholecystectomy. ENCOUNTER: Subsequent ACUITY: 1 day PAIN SCORE: Non-responsive. LOCATION: Bilateral chest FINDINGS: 2 portable frontal views of the chest show the lungs to be hyperaerated. No infiltrate or effusion. H eart is normal in size. Tip of the endotracheal tube 3 cm from the axel. Nasogastric tube tip just past the GE junction. Median sternotomy wires. CONCLUSION: Clear lungs. Ricki Metzger Jr., MD on August 23, 2017 at 6:30 Board Certified Radiologist. This report was verified electronically.
[2017-08-23] MEDS ORDERED: PROPOFOL 1000 MG/100 ML INJ 100 ML IV PRN (06:45)
[2017-08-23 07:32] LABS: INTERNATIONAL NORMALIZED RATIO 1.1 RATIO; PROTHROMBIN TIME - PATIENT 11.1 SEC (9.8-11.6)
[2017-08-23] MEDS: RESP: BUDESONIDE 0.5 MG/2 ML NEB NEB SCH ×2 (07:33→19:51)
[2017-08-23] MEDS: VANCOMYCIN 500 MG VIAL (FOR ORAL USE ONLY) PO SCH (08:16)
[2017-08-23] MEDS: FAMOTIDINE 20 MG TAB TUBE SCH ×2 (08:16→20:24)
[2017-08-23] MEDS: CHLORHEXIDINE 0.12% (ORAL KIT) 15 ML CUP MT SCH ×2 (08:16→20:22)
[2017-08-23] MEDS: SPIRONOLACTONE 25 MG TAB PO SCH (08:16)
[2017-08-23] MEDS: SODIUM CHLORIDE 0.9% FLUSH 10 ML FLUSH IV FLUSH SCH ×2 (08:17→20:22)
[2017-08-23] MEDS: METOPROLOL TARTRATE 50 MG TAB PO SCH ×2 (08:17→20:23)
[2017-08-23] MEDS: ASPIRIN 81 MG CHEW TAB CHEW SCH (08:28)
[2017-08-23] MEDS: methylPREDNISolone SOD SUCC 40 MG/1 ML VIAL IV PUSH SCH ×2 (08:28→20:23)
--- NOTE | 2017-08-23 09:09 | HHI.CCPN ---
Subjective Remarks/Hospital Course 66-year-old male who was brought to the ER after he developed shortness of breath and altered mental status. At [facility] he was placed on nasal cannula 2 L because of his history of COPD as he uses it off and on. EMS was called when patient developed agonal respirations with O2 sats in the low 80s on their arrival with pink frothy sputum. Patient was intubated in the field after receiving etomidate and Versed. His systolic blood pressure was 190s following intubation and dropped to the 60 systolic range and he was started on dopamine in the field by EMS. He was brought to the ER at [place] and noted to have elevated troponin on his admitting labs. He was accepted for admission by critical care medicine service. He underwent a CT chest to evaluate for PE which was negative for PE however did show severe emphysematous changes with groundglass opacities. History is significantly limited by the fact that he is intubated. When I evaluated the patient he was sedated, orally intubated on mechanical ventilation. History was obtained by reviewing records. SUBJ 08/14/17: Remains intubated sedated, a CPAP was attempted but patient failed almost immediately with severe tachypnea. Continues to have bilateral expiratory wheezing and diminished air entry. Initial troponin was 3.18 now down trending 08/15/17: Patient remains intubated sedated with Versed and fentanyl. On sedation hold wakes up easily follows commands. On attempted CPAP patient became tachypneic with labored breathing using accessory muscles. Not ready for extubation. Pseudomonas growing in sputum. Increase Azactam to 2 g IV every 8 hours 08/16/17: Tolerating CPAP trials better today. Sputum culture growing Pseudomonas pansensitive. Will attempt to extubate with BiPAP use if needed 08/17/17: Reintubated yesterday evening following severe respiratory distress and severe wheezing. Currently remains sedated on vent support. Persistent wheezing. 08/18: Remains intubated sedated. Will initiate CPAP trials again. Patient has severe emphysema and will be difficult to wean to extubate. Wheezing persists. 08/19: Remains sedated, orally intubated on mechanical ventilation. Significant bloody respiratory secretions being suctioned from ET tube. On heparin for anticoagulation. Will hold Coumadin. 08/20: Sedated, arousable, orally intubated on mechanical ventilation. Failing CPAP trials. Heparin held yesterday due to increasing bloody respiratory secretions. 08/21: Remains sedated wakes up easily. Failed CPAP trial immediately today due to tachypnea and respiratory distress. No significant bloody secretions. Chest x-ray was clear. I discussed briefly with daughter. Poly Salcedo about possibility of trach. She needs more time to decide and needs time to discuss with family. I have consulted palliative care to address goals of care. Vent day 9 today. With his some advanced emphysema it will be difficult to wean him off the ventilator without tracheostomy 08/22: Patient is more critical becoming more septic. White count yesterday was 27.5. Today he spiked fever 101.3, tachycardic heart rate in 120s borderline hypotensive.. Chest x-ray shows developing left base infiltrate. Will continue cefepime panculture ordered. Vancomycin 1.25 g 1 and pharmacy to dose. Normal saline bolus 2 L ordered. 08/23: T-max 100.0. Hemoglobin downtrending now 7.2. Patient continues to be borderline hypotensive. Monitor Hgb. Patient was tentatively scheduled for percutaneous tracheostomy this a.m. however unable to obtain consent from family members. Sodium level starting to downtrend with addition of free water flushes. Objective Vital Signs Date Time Temp Pulse Resp B/P (MAP) Pulse Ox O2 Delivery O2 Flow Rate FiO2 08/23/17 07:34 100 35 08/23/17 06:00 92 08/22/17 22:00 16 96/64 (75) 08/22/17 20:00 100.0 Intake and Output 08/23/17 08/23/17 08/24/17 08:00 16:00 00:00 Intake Total 3350 ml Balance 3350 ml Result Diagram: 08/23/17 0344 08/23/17 0344 Other Results Microbiology Date/Time Source Procedure Growth Status 08/21/17 19:30 Stool Stool Stool Occult Blood (JABIER) - Final HEMOCCULT POSITIVE Complete Imaging Last Impressions Chest X-Ray 08/23/17 0600 Signed Impressions: Service Date/Time: Wednesday, August 23, 2017 04:23 - CONCLUSION: Clear lungs. Ricki Metzger Jr., MD CT Angiography 08/13/17 0000 Signed Impressions: Service Date/Time: Sunday, August 13, 2017 07:25 - CONCLUSION: 1. No CT evidence for pulmonary embolism as questioned. 2. Moderate to severe upper lobe predominant centrilobular emphysema. 3. Patchy bibasilar groundglass opacities likely reflecting atelectasis although differential considerations include aspiration. 4. Multiple 4-6mm bilateral groundglass and solid nodules, likely infectious/inflammatory. Recommend followup CT examination in approximately 6 months per 2017 Fleischner criteria (6mm nodule). Steve Barajas MD Last Impressions Chest X-Ray 08/13/17 0414 Signed Impressions: Service Date/Time: Sunday, August 13, 2017 04:28 - CONCLUSION: Lungs are grossly clear. ET tube in good position. Abel Cannon MD CT Angiography 08/13/17 0000 Signed Impressions: Service Date/Time: Sunday, August 13, 2017 07:25 - CONCLUSION: 1. No CT evidence for pulmonary embolism as questioned. 2. Moderate to severe upper lobe predominant centrilobular emphysema. 3. Patchy bibasilar groundglass opacities likely reflecting atelectasis although differential considerations include aspiration. 4. Multiple 4-6mm bilateral groundglass and solid nodules, likely infectious/inflammatory. Recommend followup CT examination in approximately 6 months per 2017 Fleischner criteria (6mm nodule). Steve Barajas MD Objective Remarks GEN: Well-developed well-nourished sedated and intubated male, tachycardic sinus rhythm HEENT: Pallor present, no icterus, tongue/ mucosa dry. Orotracheally intubated Neck: No JVD Chest/Pulm: on mech vent, decreased air entry bilaterally. Scattered rhonchi, expiratory wheezing. Becomes severely tachypneic and labored on attempted spontaneous breathing trial CVS: S1-S2 regular, but tachycardic. No murmur. Mild hypotension GI/abdomen: soft, nontender, bowel sounds sluggish Extremities: warm bilaterally, 2+ peripheral edema bilateral upper extremity edema. Left lower extremity status post BKA Neuro: Sedated, orally intubated, on sedation. Spontaneous eye opening, not following commands A/P Assessment and Plan Assessment: Acute on chronic respiratory failure on mechanical ventilation Acute metabolic encephalopathy Severe sepsis (Fever leukocytosis hypotension tachycardia) Acute COPD exacerbation NSTEMI Pseudomonas pneumonia Advanced COPD/emphysema CAD History of cardiomyopathy Diabetes Hyperlipidemia Hypertension Paroxysmal atrial fibrillation. Peripheral vascular disease Plan: Neuro: -Sedation with Versed/fentanyl gtt. Precedex when appropriate to facilitate vent weaning. Follow neuro status. -New change in mental status/metabolic encephalopathy seems to be secondary to ongoing sepsis Cardiovascular: -2 L normal saline boluses secondary to tachycardia hypotension sepsis on 08/22 -Currently on metoprolol, lisinopril, Lasix and Aldactone per Dr. Gary. Holding Lasix and lisinopril due to increasing BUN, hypotension -Use metoprolol IV as needed for hypotension tachycardia -Holding heparin and Coumadin since 08/19 in view of hemoptysis currently. Continue Lovenox 40 mg sq daily -Continue aspirin. Cardiology Dr. Gary. 2D echo EF 50% -Dr. Gary recommends nuclear stress test when extubated Pulmonary: -Continue mechanical ventilation, vent bundle, bronchodilators scheduled as needed. -Failed extubation 08/16/2017, reintubated approximately after 6-8 hours. Total vent day 11 -Patient will need prolonged ventilatory support and will need trach due to severe emphysema, and pneumonia and sepsis -Family has not made a decision regarding PEG tube placement, palliative care following -08/23 plan for tracheostomy this a.m. however unable to obtain consent from family will follow -CT of the chest showed severe emphysema and pneumonia -IV Solu-Medrol, inhaled budesonide -Currently on cefepime and Flagyl, vancomycin added today GI/liver: -Tube feeds with Jevity, bowel regimen. Renal/: -Lasix and Aldactone held. 2L NS bolus and continue maintenance fluid - Now hypernatremic on CMP, change maintenance fluid to half-normal saline -Strict intake output, monitor and replete electrodes, follow BUN/creatinine. ID: -Sputum culture growing Pseudomonas 08/13/17, Azactam changed to Cefepime by ID, Dr. Crawford. Continue p.o. Flagyl -Vancomycin added for new onset fever leukocytosis with SIRS -Sputum blood and urine cultures requested Endocrine: -Watch for hypoglycemia, SSI for glycemic control if needed. -Currently on Levemir 60 every 12 increased to 70 every 12 due to poor glycemic control Heme: -Follow CBC and coags. Holding heparin and Coumadin in view of hemoptysis. Prophylaxis: -Pepcid/SCDs. Lovenox 40 mg subcutaneously (Full anticoagulation held due to hemoptysis) and will continue prophylactic dose provided hemoptysis does not recur or worsen Condition critical, failed extubation. Will need prolonged vent support and possibly trach due to severe COPD. Now with new fever leukocytosis and severe sepsis most likely secondary to pneumonia. Vancomycin added. Palliative care consulted. Family has not made decision PEG tube placement. Patient was tentatively scheduled for tracheostomy this a.m. however consent not obtained, unable to locate family member at this time. Dispo: No family at bedside. Discussed with [employer] at bedside (Narda) my billing statement This patient remains critically ill with one or more organ systems which are or may become a threat to life. I have spent in excess of 31 minutes discontinuously in the care and management of this patient. This time is exclusive of procedures, and includes, but is not limited to, evaluation of the patient, review of the medical record, discussions with family, consultants, nursing staff, or respiratory therapy, and documentation in the medical record. Physician Anayeli Lagos MD August 23, 2017 09:09
[2017-08-23] MEDS: VANCOMYCIN INJ 1,750 MG in SODIUM CHLORID 0.9% 500 ML INJ 500 ML IV SCH ×2 (10:37→22:44)
--- NOTE | 2017-08-23 10:49 | HHI.IDPN ---
Subjective Subjective Remarks Mr. Salcedo is a 66-year-old male with past medical history of nonischemic cardiomyopathy with EF 25%,, diabetes mellitus, peripheral vascular disease status post left below-knee amputation in the past. With this background patient presents to the emergency department with acute onset of shortness of breath and altered mental status. Patient was reportedly at the care home and his O2 sats dropped and given his history of COPD EMS was called when EMS saw the patient he developed agonal breathing with O2 sats in the low 80s and pink frothy sputum. Patient was intubated in the field. Patient's blood pressure following intubation dropped from systolic in 190s-60s systolic and patient was started on dopamine in the field by EMS. Patient was admitted to critical care services and underwent sepsis workup. Patient also underwent a CT chest to evaluate for PE which was negative. However it did show severe emphysematous changes with groundglass opacities. Patient has been started on aztreonam IV due to his history of rash to cefaclor. Clinically patient appears to be doing better and his chest x-ray has improved. RN reports that he continues to have some bloody secretions and there was a blood clot noted yesterday. But no active bleeding noted. Concern for possible ongoing aspiration given bleeding. At the time of my evaluation patient is in the ICU currently intubated. Patient underwent CPAP trial but failed. Respiratory therapist notes blood tinged secretions. Urine output okay Patient has had fevers as well as leukocytosis despite steroids being tapered off. Infectious disease consulted for evaluation and management of new fevers as well as increasing leukocytosis despite decreasing steroids. And also concern for Pseudomonas pneumonia. Overnight events reviewed with RN Low grade temps 100 F. BP better. Still on vent. secretions thick schmitt moderate No rash Antibiotics Cefepime IV Flagyl oral Lines Line sites with no e.o infection Past Medical History Past Medical History Per review of records Nonischemic cardiomyopathy with EF of 25% on July 2014 cardiac cath report. EF of 60% on January 2015 echo. History of acalculous cholecystitis status post biliary drain placement and subsequent cholecystectomy. Severe COPD Coronary artery disease status post coronary artery bypass in March 2014. Diabetes mellitus Hyperlipidemia Hypertension Paroxysmal atrial fibrillation Peripheral vascular disease status post left external iliac stent, bilateral femoral endarterectomies, bilateral profundoplasty, femorofemoral and aortobifemoral bypasses on May 07, 2014 as well as status post left femoral anterior tibial bypass and amputation of the left first and second toes in April 2016. Thereafter patient underwent a left below-knee amputation in May 01, 2016. Past Surgical History Per review of records Cardiac cath Coronary artery bypass graft in March 2014 Peripheral vascular disease with multiple bypasses in the lower extremities. Left below-knee amputation Allergies: Coded Allergies: cefaclor (Verified Allergy, Intermediate, rash, 06/28/17) Objective . Vital Signs Date Time Temp Pulse Resp B/P (MAP) Pulse Ox O2 Delivery O2 Flow Rate FiO2 08/23/17 09:10 35 08/23/17 07:34 100 35 08/23/17 06:00 92 08/23/17 04:15 100 35 08/23/17 04:00 108 08/23/17 04:00 35 08/23/17 02:00 107 08/23/17 00:05 100 35 08/23/17 00:00 35 08/23/17 00:00 122 08/22/17 22:00 116 16 96/64 (75) 100 08/22/17 22:00 109 08/22/17 21:00 124 20 108/69 (82) 100 08/22/17 20:00 122 08/22/17 20:00 100.0 124 24 111/68 (82) 99 08/22/17 20:00 35 08/22/17 19:35 98 35 08/22/17 18:00 117 08/22/17 16:22 100 35 08/22/17 16:00 99.9 117 21 79/50 (60) 99 08/22/17 16:00 117 08/22/17 16:00 35 08/22/17 14:00 113 08/22/17 12:00 111 08/22/17 12:00 98.7 111 22 90/50 (63) 98 08/22/17 12:00 35 08/22/17 11:00 98 35 . Laboratory Tests Test 08/21/17 15:39 08/22/17 09:45 08/23/17 03:44 White Blood Count 27.5 TH/MM3 28.2 TH/MM3 26.6 TH/MM3 Red Blood Count 2.90 MIL/MM3 2.73 MIL/MM3 2.44 MIL/MM3 Hemoglobin 8.8 GM/DL 7.9 GM/DL 7.2 GM/DL Hematocrit 27.9 % 26.3 % 23.4 % Mean Corpuscular Volume 96.1 FL 96.2 FL 95.9 FL Mean Corpuscular Hemoglobin 30.3 PG 28.8 PG 29.5 PG Mean Corpuscular Hemoglobin Concent 31.5 % 30.0 % 30.7 % Red Cell Distribution Width 19.0 % 19.1 % 18.9 % Platelet Count 146 TH/MM3 222 TH/MM3 176 TH/MM3 Mean Platelet Volume 10.3 FL 11.0 FL 11.2 FL Neutrophils (%) (Auto) 93.9 % 92.3 % 92.9 % Lymphocytes (%) (Auto) 1.7 % 2.2 % 2.7 % Monocytes (%) (Auto) 4.3 % 5.4 % 4.3 % Eosinophils (%) (Auto) 0.0 % 0.0 % 0.0 % Basophils (%) (Auto) 0.1 % 0.1 % 0.1 % Neutrophils # (Auto) 25.8 TH/MM3 26.0 TH/MM3 24.7 TH/MM3 Lymphocytes # (Auto) 0.5 TH/MM3 0.6 TH/MM3 0.7 TH/MM3 Monocytes # (Auto) 1.2 TH/MM3 1.5 TH/MM3 1.2 TH/MM3 Eosinophils # (Auto) 0.0 TH/MM3 0.0 TH/MM3 0.0 TH/MM3 Basophils # (Auto) 0.0 TH/MM3 0.0 TH/MM3 0.0 TH/MM3 CBC Comment AUTO DIFF DIFF FINAL DIFF FINAL Differential Total Cells Counted 100 Neutrophils % (Manual) 95 % Band Neutrophils % 1 % Lymphocytes % 1 % Monocytes % 1 % Neutrophils # (Manual) 27.0 TH/MM3 Metamyelocytes 1 % Promyelocytes 1 % Differential Comment FINAL DIFF MANUAL Toxic Granulation 2+ Platelet Estimate NORMAL Platelet Morphology Comment NORMAL Laboratory Tests Test 08/21/17 15:29 08/22/17 09:45 08/22/17 14:28 08/22/17 19:55 Blood Urea Nitrogen 59 MG/DL 78 MG/DL Creatinine 0.87 MG/DL 0.91 MG/DL Random Glucose 286 MG/DL 194 MG/DL Total Protein 5.4 GM/DL 5.1 GM/DL Albumin 2.0 GM/DL 1.8 GM/DL Calcium Level 8.4 MG/DL 7.8 MG/DL Alkaline Phosphatase 67 U/L 56 U/L Aspartate Amino Transf (AST/SGOT) 25 U/L 30 U/L Alanine Aminotransferase (ALT/SGPT) 17 U/L 17 U/L Total Bilirubin 0.3 MG/DL 0.3 MG/DL Sodium Level 155 MEQ/L 158 MEQ/L 157 MEQ/L Potassium Level 4.7 MEQ/L 5.0 MEQ/L Chloride Level 115 MEQ/L 119 MEQ/L Carbon Dioxide Level 35.6 MEQ/L 35.4 MEQ/L Anion Gap 4 MEQ/L 4 MEQ/L Estimat Glomerular Filtration Rate 88 ML/MIN 84 ML/MIN Magnesium Level 2.9 MG/DL Lactic Acid Level 1.5 mmol/L Test 08/23/17 03:44 Blood Urea Nitrogen 85 MG/DL Creatinine 0.85 MG/DL Random Glucose 145 MG/DL Total Protein 4.8 GM/DL Albumin 1.7 GM/DL Calcium Level 7.5 MG/DL Magnesium Level 2.7 MG/DL Alkaline Phosphatase 49 U/L Aspartate Amino Transf (AST/SGOT) 41 U/L Alanine Aminotransferase (ALT/SGPT) 17 U/L Total Bilirubin 0.4 MG/DL Sodium Level 154 MEQ/L Potassium Level 5.1 MEQ/L Chloride Level 118 MEQ/L Carbon Dioxide Level 32.5 MEQ/L Anion Gap 4 MEQ/L Estimat Glomerular Filtration Rate 90 ML/MIN Microbiology Date/Time Source Procedure Growth Status 08/22/17 09:54 Blood Peripheral Aerobic Blood Culture Pending Received 08/22/17 09:54 Blood Peripheral Anaerobic Blood Culture Pending Received 08/22/17 09:45 Blood Peripheral Aerobic Blood Culture Pending Received 08/22/17 09:45 Blood Peripheral Anaerobic Blood Culture Pending Received 08/21/17 19:30 Stool Stool Stool Occult Blood (JABIER) - Final HEMOCCULT POSITIVE Complete 08/22/17 10:50 Sputum Endotracheal Gram Stain - Final Resulted 08/22/17 10:50 Sputum Endotracheal Sputum Culture Pending Resulted 08/22/17 10:50 Urine Catheterized Urine Urine Culture Pending Received Imaging Last Impressions Chest X-Ray 08/21/17 0600 Signed Impressions: Service Date/Time: Monday, August 21, 2017 04:09 - CONCLUSION: Clear lungs. Ricki Metzger Jr., MD CT Angiography 08/13/17 0000 Signed Impressions: Service Date/Time: Sunday, August 13, 2017 07:25 - CONCLUSION: 1. No CT evidence for pulmonary embolism as questioned. 2. Moderate to severe upper lobe predominant centrilobular emphysema. 3. Patchy bibasilar groundglass opacities likely reflecting atelectasis although differential considerations include aspiration. 4. Multiple 4-6mm bilateral groundglass and solid nodules, likely infectious/inflammatory. Recommend followup CT examination in approximately 6 months per 2017 Fleischner criteria (6mm nodule). Steve Barajas MD Physical Exam GENERAL: This is a well-nourished, well-developed patient, in no apparent distress. SKIN: No rashes, ecchymoses or lesions. Cool and dry. HEAD: Atraumatic. Normocephalic. No temporal or scalp tenderness. EYES: Pupils equal round and reactive. Extraocular motions intact. No scleral icterus. No injection or drainage. ENT: Intubated. NECK: Trachea midline. Supple, nontender, no meningeal signs. CARDIOVASCULAR: HS audible. No murmur appreciated. RESPIRATORY: Clear to auscultation. Breath sounds decreased in bases. GASTROINTESTINAL: Abdomen soft, non-tender, nondistended. MUSCULOSKELETAL: Left leg BKA site ok. NEUROLOGICAL: Opens eyes.Non focal exam. Did not follow commands Psych could not be assessed. IV line sites with no e.o infection Assessment & Plan Remarks New Severe Sepsis. Possible new Hosp associated infection (PNA, UTI) Acute resp failure on vent Acute metabolic encephalopathy: infection, metabolic Pseudomonas pneumonitis in setting of aspiration was being treated. Recs Continue Cefepime IV (override Cefaclor rash allergy in chart for now) continue flagyl Continue Vanco IV (target 15-20) Continue Micafungin IV(has been on broad spectrum antibiotics is at risk for fungemia) Stool Cdiff negative. DC oral vanco. Follow cultures Follow clinically. to cover for me this weekend. Sofia Crawford MD August 23, 2017 10:49
--- NOTE | 2017-08-23 12:29 | EKG ---
Date Performed: 08/22/2017 Time Performed: 12:11:54 PTAGE: 66 years EKG: Sinus tachycardia. Indeterminate axis Incomplete RBBB RVH with secondary repolarization abn ormality Anteroseptal ST-T changes are probably due to ventricular hypertrophy Low QRS voltages in li mb leads Abnormal ECG PREVIOUS TRACING : 08/13/2017 04.21 DOCTOR: Cary Ochoa Interpretating Date/Time 08/23/2017 12:24:22
[2017-08-23] MEDS: MICAFUNGIN INJ 150 MG in SODIUM CHLORIDE 0.9% INJ 100 ML IV SCH (12:45)
[2017-08-23] MEDS: INSULIN DETEMIR 100 UNITS/ML VIAL SQ SCH ×2 (12:46→21:00)
[2017-08-23] MEDS: fentaNYL DRIP 250 ML IV PRN (18:33)
[2017-08-23] MEDS: DEXTROSE 50% IN WATER 50 ML VIAL(D50) IV PUSH PRN (20:17)
[2017-08-23] MEDS: ATORVASTATIN 40 MG TAB PO SCH (20:23)
[2017-08-24] VITALS (22 sets, daily range): BP systolic 117–151; BP diastolic 55–77; PULSE 72–106; RESP 17–20; TEMP 97.2–99.1; O2SAT 99–100
[2017-08-24] MEDS: RESP: ALBUTEROL 2.5 MG/IPRATROPIUM 0.5 MG NEB (SCH) INH ×7 (01:07→23:52)
[2017-08-24] MEDS: [UNRECOGNIZED DRUG - OTHER] IV SCH ×10 (01:42→22:14)
[2017-08-24] MEDS: INSULIN ASPART SUPPLEMENTAL SCALE SQ SCH ×6 (04:00→21:53)
[2017-08-24] MEDS: CHLORHEXIDINE GLUCONATE 2 % 1 PACK (2 CLOTHS) TOP SCH (04:00)
[2017-08-24 05:33] LABS: BACTERIA, URINE RARE /hpf; BILIRUBIN, URINE NEG (NEG); BLOOD, URINE MOD (NEG); GLUCOSE,URINE NEG (NEG); KETONE, URINE NEG (NEG); MUCUS URINE FEW /lpf (OCC); NITRITE,URINE NEG (NEG); PH, URINE 5.5 (5.0-8.5); URINE COLOR LIGHT-YELLOW (YELLW/STRAW); URINE LEUKOCYTE ESTERASE TRACE (NEG)
[2017-08-24] MEDS: metroNIDAZOLE 500 MG TAB OG-TUBE SCH ×3 (05:58→21:53)
[2017-08-24] MEDS: CEFEPIME INJ 2,000 MG in SODIUM CHLORIDE 0.9% INJ 100 ML IV SCH ×3 (05:59→21:50)
[2017-08-24] MEDS: RESP: BUDESONIDE 0.5 MG/2 ML NEB NEB SCH ×2 (07:30→19:46)
[2017-08-24] MEDS: INSULIN DETEMIR 100 UNITS/ML VIAL SQ SCH ×2 (09:00→22:14)
[2017-08-24] MEDS: METOPROLOL TARTRATE 50 MG TAB PO SCH ×2 (09:46→21:53)
[2017-08-24] MEDS: SODIUM CHLORIDE 0.9% FLUSH 10 ML FLUSH IV FLUSH SCH ×2 (09:46→21:52)
[2017-08-24] MEDS: methylPREDNISolone SOD SUCC 40 MG/1 ML VIAL IV PUSH SCH ×2 (09:46→21:51)
[2017-08-24] MEDS: FAMOTIDINE 20 MG TAB TUBE SCH ×2 (09:46→21:53)
[2017-08-24] MEDS: SPIRONOLACTONE 25 MG TAB PO SCH (09:46)
[2017-08-24] MEDS: ASPIRIN 81 MG CHEW TAB CHEW SCH (09:47)
[2017-08-24] MEDS: CHLORHEXIDINE 0.12% (ORAL KIT) 15 ML CUP MT SCH ×2 (10:08→21:52)
[2017-08-24] MEDS ORDERED: PHARMACY ORDERED LAB ONE (10:45)
[2017-08-24] MEDS: VANCOMYCIN INJ 1,750 MG in SODIUM CHLORID 0.9% 500 ML INJ 500 ML IV SCH (12:48)
--- NOTE | 2017-08-24 12:54 | HHI.CCPN ---
Subjective Remarks/Hospital Course 66-year-old male who was brought to the ER after he developed shortness of breath and altered mental status. At intermediate he was placed on nasal cannula 2 L because of his history of COPD as he uses it off and on. EMS was called when patient developed agonal respirations with O2 sats in the low 80s on their arrival with pink frothy sputum. Patient was intubated in the field after receiving etomidate and Versed. His systolic blood pressure was 190s following intubation and dropped to the 60 systolic range and he was started on dopamine in the field by EMS. He was brought to the ER at [facility] and noted to have elevated troponin on his admitting labs. He was accepted for admission by critical care medicine service. He underwent a CT chest to evaluate for PE which was negative for PE however did show severe emphysematous changes with groundglass opacities. History is significantly limited by the fact that he is intubated. When I evaluated the patient he was sedated, orally intubated on mechanical ventilation. History was obtained by reviewing records. SUBJ 08/14/17: Remains intubated sedated, a CPAP was attempted but patient failed almost immediately with severe tachypnea. Continues to have bilateral expiratory wheezing and diminished air entry. Initial troponin was 3.18 now down trending 08/15/17: Patient remains intubated sedated with Versed and fentanyl. On sedation hold wakes up easily follows commands. On attempted CPAP patient became tachypneic with labored breathing using accessory muscles. Not ready for extubation. Pseudomonas growing in sputum. Increase Azactam to 2 g IV every 8 hours 08/16/17: Tolerating CPAP trials better today. Sputum culture growing Pseudomonas pansensitive. Will attempt to extubate with BiPAP use if needed 08/17/17: Reintubated yesterday evening following severe respiratory distress and severe wheezing. Currently remains sedated on vent support. Persistent wheezing. 08/18: Remains intubated sedated. Will initiate CPAP trials again. Patient has severe emphysema and will be difficult to wean to extubate. Wheezing persists. 08/19: Remains sedated, orally intubated on mechanical ventilation. Significant bloody respiratory secretions being suctioned from ET tube. On heparin for anticoagulation. Will hold Coumadin. 08/20: Sedated, arousable, orally intubated on mechanical ventilation. Failing CPAP trials. Heparin held yesterday due to increasing bloody respiratory secretions. 08/21: Remains sedated wakes up easily. Failed CPAP trial immediately today due to tachypnea and respiratory distress. No significant bloody secretions. Chest x-ray was clear. I discussed briefly with daughter. Poly Salcedo about possibility of trach. She needs more time to decide and needs time to discuss with family. I have consulted palliative care to address goals of care. Vent day 9 today. With his some advanced emphysema it will be difficult to wean him off the ventilator without tracheostomy 08/22: Patient is more critical becoming more septic. White count yesterday was 27.5. Today he spiked fever 101.3, tachycardic heart rate in 120s borderline hypotensive.. Chest x-ray shows developing left base infiltrate. Will continue cefepime panculture ordered. Vancomycin 1.25 g 1 and pharmacy to dose. Normal saline bolus 2 L ordered. 08/23: T-max 100.0. Hemoglobin downtrending now 7.2. Patient continues to be borderline hypotensive, monitor Hgb. Patient was tentatively scheduled for percutaneous tracheostomy this a.m. however unable to obtain consent from family members. Sodium level starting to downtrend with addition of free water flushes. 08/24: Hemodynamically stable throughout the night. Transfusion 1 unit of packed cells placed on hold with cancellation percutaneous tracheostomy due to lack of consent. H&H pending this afternoon, will transfuse for hemoglobin less than 7. Patient awake continuing on CPAP for greater than 4 hours today. Objective Vital Signs Date Time Temp Pulse Resp B/P (MAP) Pulse Ox O2 Delivery O2 Flow Rate FiO2 08/24/17 11:02 100 35 08/24/17 06:00 92 08/24/17 04:00 98.3 18 126/67 (86) Intake and Output 08/24/17 08/24/17 08/24/17 07:59 15:59 23:59 Intake Total 2125 ml Output Total 1400 ml Balance 725 ml Result Diagram: 08/23/17 0344 08/23/17 0344 Other Results Microbiology Date/Time Source Procedure Growth Status 08/21/17 19:30 Stool Stool Stool Occult Blood (JABIER) - Final HEMOCCULT POSITIVE Complete 08/22/17 10:50 Sputum Endotracheal Gram Stain - Final Complete 08/22/17 10:50 Sputum Culture - Final S. Aureus Mrsa Complete 08/22/17 10:50 Urine Catheterized Urine Urine Culture - Final NO GROWTH IN 48 HOURS. Complete Imaging Last Impressions Chest X-Ray 08/23/17 0600 Signed Impressions: Service Date/Time: Wednesday, August 23, 2017 04:23 - CONCLUSION: Clear lungs. Ricki Metzger Jr., MD CT Angiography 08/13/17 0000 Signed Impressions: Service Date/Time: Sunday, August 13, 2017 07:25 - CONCLUSION: 1. No CT evidence for pulmonary embolism as questioned. 2. Moderate to severe upper lobe predominant centrilobular emphysema. 3. Patchy bibasilar groundglass opacities likely reflecting atelectasis although differential considerations include aspiration. 4. Multiple 4-6mm bilateral groundglass and solid nodules, likely infectious/inflammatory. Recommend followup CT examination in approximately 6 months per 2017 Fleischner criteria (6mm nodule). Steve Barajas MD Last Impressions Chest X-Ray 08/13/17 0414 Signed Impressions: Service Date/Time: Sunday, August 13, 2017 04:28 - CONCLUSION: Lungs are grossly clear. ET tube in good position. Abel Cannon MD CT Angiography 08/13/17 0000 Signed Impressions: Service Date/Time: Sunday, August 13, 2017 07:25 - CONCLUSION: 1. No CT evidence for pulmonary embolism as questioned. 2. Moderate to severe upper lobe predominant centrilobular emphysema. 3. Patchy bibasilar groundglass opacities likely reflecting atelectasis although differential considerations include aspiration. 4. Multiple 4-6mm bilateral groundglass and solid nodules, likely infectious/inflammatory. Recommend followup CT examination in approximately 6 months per 2017 Fleischner criteria (6mm nodule). Steve Barajas MD Objective Remarks GEN: Well-developed well-nourished sedated and intubated male, tachycardic sinus rhythm HEENT: Pallor present, no icterus, tongue/ mucosa dry. Orotracheally intubated Neck: No JVD Chest/Pulm: on mech vent, decreased air entry bilaterally. Scattered rhonchi, expiratory wheezing. Becomes severely tachypneic and labored on attempted spontaneous breathing trial CVS: S1-S2 regular, but tachycardic. No murmur. Mild hypotension GI/abdomen: soft, nontender, bowel sounds sluggish Extremities: warm bilaterally, 2+ peripheral edema bilateral upper extremity edema. Left lower extremity status post BKA Neuro: Sedated, orally intubated, on sedation. Spontaneous eye opening, not following commands A/P Assessment and Plan Assessment: Acute on chronic respiratory failure on mechanical ventilation Acute metabolic encephalopathy Severe sepsis (Fever leukocytosis hypotension tachycardia) Acute COPD exacerbation NSTEMI Pseudomonas pneumonia Advanced COPD/emphysema CAD History of cardiomyopathy Diabetes Hyperlipidemia Hypertension Paroxysmal atrial fibrillation. Peripheral vascular disease Plan: Neuro: -Sedation with Versed/fentanyl gtt. Precedex when appropriate to facilitate vent weaning. Follow neuro status. -New change in mental status/metabolic encephalopathy seems to be secondary to ongoing sepsis Cardiovascular: -2 L normal saline boluses secondary to tachycardia hypotension sepsis on 08/22 -Currently on metoprolol, lisinopril, Lasix and Aldactone per Dr. Gary. Holding Lasix and lisinopril due to increasing BUN, hypotension -Use metoprolol IV as needed for hypertension, tachycardia -Holding heparin and Coumadin since 08/19 in view of hemoptysis currently. Continue Lovenox 40 mg sq daily -Continue aspirin. Cardiology Dr. Gary. 2D echo EF 50% -Dr. Gary recommends nuclear stress test when extubated Pulmonary: -Continue mechanical ventilation, vent bundle, bronchodilators scheduled as needed. -Failed extubation 08/16/2017, reintubated approximately after 6-8 hours. Total vent day 11 -Patient will need prolonged ventilatory support and will need trach due to severe emphysema, and pneumonia and sepsis -Family has not made a decision regarding PEG tube placement, palliative care following -08/23 plan for tracheostomy this a.m. however unable to obtain consent from family will follow -CT of the chest showed severe emphysema and pneumonia -IV Solu-Medrol, inhaled budesonide -Currently on cefepime and Flagyl, and vancomycin - Continue CPAP trials, obtain SBT today for possible extubation GI/liver: -Tube feeds with Jevity, bowel regimen. Renal/: -Lasix and Aldactone held. 2L NS bolus and continue maintenance fluid -Continue half-normal saline, and free water flushes 2/2 hypernatremia -Strict intake output, monitor and replete electrodes, follow BUN/creatinine. ID: -Sputum culture growing Pseudomonas 08/13/17, Azactam changed to Cefepime by ID, Dr. Crawford. Continue p.o. Flagyl -Vancomycin added for new onset fever leukocytosis with SIRS -Sputum blood and urine cultures requested Endocrine: -Watch for hypoglycemia, SSI for glycemic control if needed. -Currently on Levemir 60 every 12 increased to 70 every 12 due to poor glycemic control Heme: -Follow CBC and coags. Holding heparin and Coumadin in view of hemoptysis. Prophylaxis: -Pepcid/SCDs. Lovenox 40 mg subcutaneously (Full anticoagulation held due to hemoptysis) and will continue prophylactic dose provided hemoptysis does not recur or worsen Condition critical, failed extubation. Will need prolonged vent support and possibly trach due to severe COPD. Now with new fever leukocytosis and severe sepsis most likely secondary to pneumonia. Vancomycin added. Palliative care consulted. Family has not made decision PEG tube placement. Plan for tracheostomy ETT day 13. Dispo: No family at bedside. Discussed with SCRUB TECH at bedside (Tiny) my billing statement This patient remains critically ill with one or more organ systems which are or may become a threat to life. I have spent in excess of 30 minutes discontinuously in the care and management of this patient. This time is exclusive of procedures, and includes, but is not limited to, evaluation of the patient, review of the medical record, discussions with family, consultants, nursing staff, or respiratory therapy, and documentation in the medical record. Physician Anayeli Lagos MD August 24, 2017 12:54
[2017-08-24] MEDS: MICAFUNGIN INJ 150 MG in SODIUM CHLORIDE 0.9% INJ 100 ML IV SCH (13:22)
[2017-08-24 14:33] LABS: HEMATOCRIT 20.1 % (39.0-51.0); HEMOGLOBIN 6.4 GM/DL (13.0-17.0)
[2017-08-24 18:55] LABS: HEMATOCRIT 26.7 % (39.0-51.0); HEMOGLOBIN 8.6 GM/DL (13.0-17.0)
[2017-08-24] MEDS: fentaNYL DRIP 250 ML IV PRN (19:32)
[2017-08-24] MEDS: ATORVASTATIN 40 MG TAB PO SCH (21:53)
[2017-08-25] VITALS (24 sets, daily range): BP systolic 87–179; BP diastolic 55–96; PULSE 78–109; RESP 14–21; TEMP 97.6–98.4; O2SAT 94–100
[2017-08-25] MEDS: INSULIN ASPART SUPPLEMENTAL SCALE SQ SCH ×6 (01:01→20:00)
[2017-08-25] MEDS: RESP: ALBUTEROL 2.5 MG/IPRATROPIUM 0.5 MG NEB (SCH) INH ×5 (03:58→19:36)
[2017-08-25] MEDS: CHLORHEXIDINE GLUCONATE 2 % 1 PACK (2 CLOTHS) TOP SCH (04:00)
[2017-08-25] MEDS: [UNRECOGNIZED DRUG - OTHER] IV SCH ×4 (05:24→13:31)
[2017-08-25] MEDS: CEFEPIME INJ 2,000 MG in SODIUM CHLORIDE 0.9% INJ 100 ML IV SCH ×3 (05:24→21:20)
[2017-08-25] MEDS: metroNIDAZOLE 500 MG TAB OG-TUBE SCH ×3 (05:25→21:22)
--- NOTE | 2017-08-25 05:51 | RADRPT ---
EXAM DATE/TIME: 08/25/2017 04:42 [facility] COMPARISON: CHEST SINGLE AP, August 23, 2017, 4:23. INDICATIONS : Respiratory failure. MEDICAL HISTORY : Cerebrovascular disease. Congestive heart failure. Hypertension. Diabetes SURGICAL HISTORY : CABG. Abdominal aortic aneurysm repair. Cholecystectomy ENCOUNTER: Subsequent ACUITY: 2 days PAIN SCORE: Non-responsive. LOCATION: Bilateral chest FINDINGS: Endotracheal tube tip in satisfactory position. NG tip in stomach. Previous sternotomy with CABG. Mil d basilar airspace disease stable to slightly worse compared with August 23. CONCLUSION: 1. Bilateral mostly basilar airspace disease stable to slightly increased from . Endotracheal tube and nasogastric tube in good position. Quentin Griffin MD on August 25, 2017 at 5:48 Board Certified Radiologist. This report was verified electronically.
[2017-08-25 06:36] LABS: CALCIUM 7.8 MG/DL (8.5-10.1); CREATININE 0.7 MG/DL (0.60-1.30); MAGNESIUM 2.4 MG/DL (1.5-2.5); RANDOM VANCOMYCIN 26.8 COMMENT
[2017-08-25 07:37] LABS: AUTOMATED NEUTROPHIL # 26.8 TH/MM3 (1.8-7.7); BASOPHIL # 0.1 TH/MM3 (0-0.2); BASOPHIL % 0.2 % (0.0-2.0); HEMATOCRIT 26.1 % (39.0-51.0); HEMOGLOBIN 8.5 GM/DL (13.0-17.0); LYMPH % 1.2 % (9.0-44.0); LYMPHOCYTE # 0.3 TH/MM3 (1.0-4.8); MEAN CELL VOLUME 93.1 FL (80.0-100.0); MEAN CORPUSCULAR HEMOGLOBIN 30.2 PG (27.0-34.0); MEAN CORPUSCULAR HGB CONC 32.4 % (32.0-36.0); MEAN PLATELET VOLUME 11.9 FL (7.0-11.0); MONO % 2.9 % (0.0-8.0); MONOCYTE # 0.8 TH/MM3 (0-0.9); NEUT % 95.7 % (16.0-70.0); PLATELET COUNT 149 TH/MM3 (150-450)
[2017-08-25] MEDS: SODIUM CHLORIDE 0.9% FLUSH 10 ML FLUSH IV FLUSH SCH ×2 (07:49→21:20)
[2017-08-25] MEDS: ASPIRIN 81 MG CHEW TAB CHEW SCH (07:49)
[2017-08-25] MEDS: METOPROLOL TARTRATE 50 MG TAB PO SCH ×2 (07:49→21:00)
[2017-08-25] MEDS: SPIRONOLACTONE 25 MG TAB PO SCH (07:50)
[2017-08-25] MEDS: methylPREDNISolone SOD SUCC 40 MG/1 ML VIAL IV PUSH SCH ×2 (07:50→21:20)
[2017-08-25] MEDS: INSULIN DETEMIR 100 UNITS/ML VIAL SQ SCH ×2 (07:51→21:00)
[2017-08-25] MEDS: FAMOTIDINE 20 MG TAB TUBE SCH ×2 (07:51→21:00)
[2017-08-25] MEDS: RESP: BUDESONIDE 0.5 MG/2 ML NEB NEB SCH ×2 (07:52→19:36)
[2017-08-25] MEDS: CHLORHEXIDINE 0.12% (ORAL KIT) 15 ML CUP MT SCH ×2 (08:00→20:00)
--- NOTE | 2017-08-25 11:53 | HHI.CCPN ---
Subjective Remarks/Hospital Course 66-year-old male who was brought to the ER after he developed shortness of breath and altered mental status. At shelter he was placed on nasal cannula 2 L because of his history of COPD as he uses it off and on. EMS was called when patient developed agonal respirations with O2 sats in the low 80s on their arrival with pink frothy sputum. Patient was intubated in the field after receiving etomidate and Versed. His systolic blood pressure was 190s following intubation and dropped to the 60 systolic range and he was started on dopamine in the field by EMS. He was brought to the ER at [facility] and noted to have elevated troponin on his admitting labs. He was accepted for admission by critical care medicine service. He underwent a CT chest to evaluate for PE which was negative for PE however did show severe emphysematous changes with groundglass opacities. History is significantly limited by the fact that he is intubated. When I evaluated the patient he was sedated, orally intubated on mechanical ventilation. History was obtained by reviewing records. SUBJ 08/14/17: Remains intubated sedated, a CPAP was attempted but patient failed almost immediately with severe tachypnea. Continues to have bilateral expiratory wheezing and diminished air entry. Initial troponin was 3.18 now down trending 08/15/17: Patient remains intubated sedated with Versed and fentanyl. On sedation hold wakes up easily follows commands. On attempted CPAP patient became tachypneic with labored breathing using accessory muscles. Not ready for extubation. Pseudomonas growing in sputum. Increase Azactam to 2 g IV every 8 hours 08/16/17: Tolerating CPAP trials better today. Sputum culture growing Pseudomonas pansensitive. Will attempt to extubate with BiPAP use if needed 08/17/17: Reintubated yesterday evening following severe respiratory distress and severe wheezing. Currently remains sedated on vent support. Persistent wheezing. 08/18: Remains intubated sedated. Will initiate CPAP trials again. Patient has severe emphysema and will be difficult to wean to extubate. Wheezing persists. 08/19: Remains sedated, orally intubated on mechanical ventilation. Significant bloody respiratory secretions being suctioned from ET tube. On heparin for anticoagulation. Will hold Coumadin. 08/20: Sedated, arousable, orally intubated on mechanical ventilation. Failing CPAP trials. Heparin held yesterday due to increasing bloody respiratory secretions. 08/21: Remains sedated wakes up easily. Failed CPAP trial immediately today due to tachypnea and respiratory distress. No significant bloody secretions. Chest x-ray was clear. I discussed briefly with daughter. Poly Salcedo about possibility of trach. She needs more time to decide and needs time to discuss with family. I have consulted palliative care to address goals of care. Vent day 9 today. With his some advanced emphysema it will be difficult to wean him off the ventilator without tracheostomy 08/22: Patient is more critical becoming more septic. White count yesterday was 27.5. Today he spiked fever 101.3, tachycardic heart rate in 120s borderline hypotensive.. Chest x-ray shows developing left base infiltrate. Will continue cefepime panculture ordered. Vancomycin 1.25 g 1 and pharmacy to dose. Normal saline bolus 2 L ordered. 08/23: T-max 100.0. Hemoglobin downtrending now 7.2. Patient continues to be borderline hypotensive, monitor Hgb. Patient was tentatively scheduled for percutaneous tracheostomy this a.m. however unable to obtain consent from family members. Sodium level starting to downtrend with addition of free water flushes. 08/24: Hemodynamically stable throughout the night. Transfusion 1 unit of packed cells placed on hold with cancellation percutaneous tracheostomy due to lack of consent. H&H pending this afternoon, will transfuse for hemoglobin less than 7. Patient awake continuing on CPAP for greater than 4 hours today. 08/25: more awake. passed SBT. discussion with family and patient: he would want to be re-intubated and pursue tracheostomy if he fails again. Objective Vital Signs Date Time Temp Pulse Resp B/P (MAP) Pulse Ox O2 Delivery O2 Flow Rate FiO2 08/25/17 11:34 100 35 08/25/17 08:00 98.0 96 17 179/80 (113) Intake and Output 08/25/17 08/25/17 08/26/17 08:00 16:00 00:00 Intake Total 2458 ml Output Total 500 ml Balance 1958 ml Result Diagram: 08/25/17 0316 08/25/17 0316 Imaging Last Impressions Chest X-Ray 08/23/17 0600 Signed Impressions: Service Date/Time: Wednesday, August 23, 2017 04:23 - CONCLUSION: Clear lungs. Ricki Metzger Jr., MD CT Angiography 08/13/17 Signed Impressions: Service Date/Time: Sunday, August 13, 2017 07:25 - CONCLUSION: 1. No CT evidence for pulmonary embolism as questioned. 2. Moderate to severe upper lobe predominant centrilobular emphysema. 3. Patchy bibasilar groundglass opacities likely reflecting atelectasis although differential considerations include aspiration. 4. Multiple 4-6mm bilateral groundglass and solid nodules, likely infectious/inflammatory. Recommend followup CT examination in approximately 6 months per 2017 Fleischner criteria (6mm nodule). Steve Barajas MD Last Impressions Chest X-Ray 08/13/17 0414 Signed Impressions: Service Date/Time: Sunday, August 13, 2017 04:28 - CONCLUSION: Lungs are grossly clear. ET tube in good position. Abel Cannon MD CT Angiography 08/13/17 Signed Impressions: Service Date/Time: Sunday, August 13, 2017 07:25 - CONCLUSION: 1. No CT evidence for pulmonary embolism as questioned. 2. Moderate to severe upper lobe predominant centrilobular emphysema. 3. Patchy bibasilar groundglass opacities likely reflecting atelectasis although differential considerations include aspiration. 4. Multiple 4-6mm bilateral groundglass and solid nodules, likely infectious/inflammatory. Recommend followup CT examination in approximately 6 months per 2017 Fleischner criteria (6mm nodule). Steve Barajas MD Objective Remarks GEN: middle-aged male who appears much older than stated age, intubated but awake. HEENT: Pallor present, no icterus, tongue/ mucosa moist. Orotracheally intubated Neck: No JVD Chest/Pulm: on mech vent, decreased air entry bilaterally. Scattered rhonchi, expiratory wheezing. CVS: normal rate, regular rhythm. sinus by tele. GI/abdomen: soft, nontender, bowel sounds sluggish Extremities: warm bilaterally, 2+ peripheral edema bilateral upper extremity edema. Left lower extremity status post BKA Neuro: Sedated, orally intubated. awake. follows commands. RASS 0. A/P Assessment and Plan Assessment: Acute on chronic hypoxic and hypercarbic respiratory failure on mechanical ventilation Acute metabolic encephalopathy Severe sepsis (Fever leukocytosis hypotension tachycardia) Acute COPD exacerbation NSTEMI Pseudomonas pneumonia MRSA Ventilator associated pneumonia Advanced COPD/emphysema CAD History of cardiomyopathy Diabetes Hyperlipidemia Hypertension Paroxysmal atrial fibrillation. Peripheral vascular disease Plan: Neuro: -Sedation with Versed/fentanyl gtt. Follow neuro status. Cardiovascular: -Currently on metoprolol, lisinopril, Lasix and Aldactone per Dr. Gary. Holding Lasix and lisinopril due to increasing BUN, hypotension -Use metoprolol IV as needed for hypertension, tachycardia -Holding heparin and Coumadin since 08/19 in view of hemoptysis currently. Continue Lovenox 40 mg sq daily -Continue aspirin. Cardiology Dr. Gary. 2D echo EF 50% -Dr. Gary recommends nuclear stress test when extubated Pulmonary: -wean to extubate today - patient and family goals as of my discussion 08/25: aggressive care including tracheostomy if he gets reintubated. -Failed extubation 08/16/2017, reintubated approximately after 6-8 hours. Total vent day 13 -Patient will need prolonged ventilatory support and will need trach due to severe emphysema, and pneumonia and sepsis -CT of the chest showed severe emphysema and pneumonia -IV Solu-Medrol, inhaled budesonide -Currently on cefepime and Flagyl, and vancomycin GI/liver: -Tube feeds with Jevity, bowel regimen. Renal/: -Lasix and Aldactone held. -Continue half-normal saline, and free water flushes 2/2 hypernatremia -Strict intake output, monitor and replete electrodes, follow BUN/creatinine. ID: -Sputum culture growing Pseudomonas 08/13/17, Azactam changed to Cefepime by ID, Dr. Crawford. Continue p.o. Flagyl -Vancomycin added for new onset fever leukocytosis with SIRS -sputum culture 08/22 growing MRSA. - ID to manage abx. Endocrine: -Watch for hypoglycemia, SSI for glycemic control if needed. -Currently on Levemir 60 every 12 increased to 70 every 12 due to poor glycemic control Heme: -Follow CBC and coags. Holding heparin and Coumadin in view of hemoptysis. Prophylaxis: -Pepcid/SCDs. Lovenox 40 mg subcutaneously (Full anticoagulation held due to hemoptysis) and will continue prophylactic dose provided hemoptysis does not recur or worsen Meet Uribe MD August 25, 2017 11:53
[2017-08-25] MEDS: MICAFUNGIN INJ 150 MG in SODIUM CHLORIDE 0.9% INJ 100 ML IV SCH (12:19)
[2017-08-25] MEDS: ATORVASTATIN 40 MG TAB PO SCH (21:00)
[2017-08-26] VITALS (16 sets, daily range): BP systolic 117–165; BP diastolic 66–99; PULSE 95–116; RESP 19–26; TEMP 97.8–98.7; O2SAT 98–100
[2017-08-26] MEDS: RESP: ALBUTEROL 2.5 MG/IPRATROPIUM 0.5 MG NEB (SCH) INH ×7 (00:01→23:27)
[2017-08-26] MEDS: CHLORHEXIDINE GLUCONATE 2 % 1 PACK (2 CLOTHS) TOP SCH (04:00)
[2017-08-26] MEDS: INSULIN ASPART SUPPLEMENTAL SCALE SQ SCH ×6 (04:00→20:00)
[2017-08-26] MEDS: DEXTROSE 50% IN WATER 50 ML VIAL(D50) IV PUSH PRN (04:18)
[2017-08-26] MEDS: CEFEPIME INJ 2,000 MG in SODIUM CHLORIDE 0.9% INJ 100 ML IV SCH (04:18)
[2017-08-26] MEDS: metroNIDAZOLE 500 MG TAB OG-TUBE SCH ×2 (05:29→13:39)
[2017-08-26] MEDS: RESP: BUDESONIDE 0.5 MG/2 ML NEB NEB SCH ×2 (07:28→20:06)
[2017-08-26] MEDS: CHLORHEXIDINE 0.12% (ORAL KIT) 15 ML CUP MT SCH ×2 (08:00→21:42)
[2017-08-26] MEDS: INSULIN DETEMIR 100 UNITS/ML VIAL SQ SCH ×2 (09:00→21:00)
[2017-08-26] MEDS: SODIUM CHLORIDE 0.9% FLUSH 10 ML FLUSH IV FLUSH SCH ×2 (09:00→21:42)
[2017-08-26] MEDS: methylPREDNISolone SOD SUCC 40 MG/1 ML VIAL IV PUSH SCH ×2 (09:00→21:43)
[2017-08-26] MEDS: METOPROLOL TARTRATE 50 MG TAB PO SCH ×2 (09:34→22:00)
[2017-08-26] MEDS: ASPIRIN 81 MG CHEW TAB CHEW SCH (09:34)
[2017-08-26] MEDS: SPIRONOLACTONE 25 MG TAB PO SCH (09:34)
[2017-08-26] MEDS: FAMOTIDINE 20 MG TAB TUBE SCH ×2 (09:34→21:00)
--- NOTE | 2017-08-26 12:29 | HHI.HCPN ---
Reason for visit a. To assist with evaluation and management of symptoms including: dyspnea, pain b. To assist medical decision maker(s) with: better understanding of current medical conditions; weighing benefits/burdens of medical treatment options; making medical treatment decisions. . Subjective/Interval History Mr. Salcedo is a 66 admitted with hypoxic respiratory failure. Follow-up visit for symptom management of pain and dyspnea as well as clarification of medical treatment goals. Patient seen and assessed in [facility], room 503 No family at bedside. Patient was extubated yesterday 08/25/17. Saturation currently stable at 98% on 3 L O2 via nasal cannula. Patient denies pain or dyspnea on exam, however he appears somewhat short of breath. Respiratory rate of 24. Follow-up chest x-ray yesterday 08/25/2017 showing stable to slightly increased, mostly basilar, airspace disease bilaterally. Afebrile. WBC: 28.0; hemoglobin 8.5, hematocrit 26.1, platelets 149, neutrophils 95.7% repeat sputum culture from 08/22/2017 + MRSA; blood cultures and urine cultures remain negative today. On Micafungin, Cefepime and Flagyl. Dr. Uribe had a lengthy discussion with the patient and his family yesterday regarding medical treatment goals of care. Patient and family both expressed aggressive goals. Patient indicating again today that he would want reintubation/tracheostomy if his respiratory status were to deteriorate. . Family/friend interactions See interval history . Advance Directives Living Will: Copy in medical record Advance Directive Specifics Documented care wishes: Living will appears to be completed on April 19, 2014. Document can be viewed in patient's EMR. . Objective Vital Signs Date Time Temp Pulse Resp B/P (MAP) Pulse Ox O2 Delivery O2 Flow Rate FiO2 08/26/17 07:29 98 Nasal Cannula 3.00 08/26/17 06:00 112 08/26/17 04:00 106 08/26/17 04:00 98.0 106 19 117/70 (86) 100 08/26/17 02:00 106 08/26/17 01:50 138/99 (112) 08/26/17 00:00 97.9 108 20 99 08/26/17 00:00 108 08/25/17 22:00 104 08/25/17 20:00 109 5/20/18 20:00 97.6 109 15 159/76 (103) 99 08/25/17 19:47 100 Nasal Cannula 4.00 08/25/17 18:00 95 08/25/17 17:00 105 08/25/17 16:00 98.1 99 20 143/72 (95) 99 08/25/17 16:00 99 08/25/17 15:00 98 08/25/17 14:00 92 08/25/17 13:12 100 Nasal Cannula 2.00 08/25/17 13:00 97 08/25/17 12:55 100 Nasal Cannula 2 Intake & Output 08/26/17 08/26/17 07:00 19:00 Intake Total 1100 ml Output Total 900 ml Balance 200 ml IV Total 1100 ml Output Urine Total 900 ml # Bowel Movements 1 . Physical Exam CONSTITUTIONAL/GENERAL: This is an adequately nourished, male patient in no acute distress TUBES/LINES/DRAINS: PIV x 3, urinary catheter, nasal cannula SKIN: Ecchymoses and abrasions on upper extremities. No wounds seen anteriorly. Skin temperature appropriate. Not diaphoretic. HEAD: Atraumatic. Normocephalic. EYES: Pupils equal and round and reactive. Extraocular motions intact. No scleral icterus. No injection or drainage. Fundi not examined. ENT: Hearing grossly normal. Nose without bleeding or purulent drainage. Oral mucosa moist, pink NECK: Trachea midline. Supple, nontender. No palpable thyroid enlargement or nodularity. CARDIOVASCULAR: Regular rate and rhythm without murmurs, gallops, or rubs. No JVD. Peripheral pulses symmetric. RESPIRATORY/CHEST: Borderline tachypnea. Breath sounds diminished bilaterally. No wheezes, rales, or rhonchi. GASTROINTESTINAL: Abdomen soft, non-tender, nondistended. No hepato-splenomegaly , or palpable masses. No guarding. Bowel sounds present. GENITOURINARY: Without palpable bladder distension. Lopez catheter in place. MUSCULOSKELETAL: Extremities without clubbing or cyanosis. Left BKA. Hands swollen bilaterally; right foot cool to touch.. LYMPHATICS: No palpable cervical or supraclavicular adenopathy. NEUROLOGICAL: Awake. Able to respond to questions with brief answers; follows simple one-step commands. PSYCHIATRIC: No obvious anxiety/depression. No apparent hallucinations or other psychotic thought process. . Diagnostic Tests Laboratory Laboratory Tests Test 08/24/17 04:10 08/24/17 09:09 08/24/17 11:44 08/24/17 14:02 Urine Color LIGHT-YELLOW (YELLW/STRAW) Urine Turbidity HAZY (CLEAR) Urine pH 5.5 (5.0-8.5) Urine Specific [place]coe 1.020 (1.002-1.035) Urine Protein TRACE mg/dL (NEG-TRACE) Urine Glucose (UA) NEG mg/dL (NEG) Urine Ketones NEG mg/dL (NEG) Urine Occult Blood MOD (NEG) Urine Nitrite NEG (NEG) Urine Bilirubin NEG (NEG) Urine Urobilinogen LESS THAN 2.0 MG/DL (LESS Urine Leukocyte Esterase TRACE (NEG) Urine RBC 1 /hpf (0-3) Urine WBC 7 /hpf (0-5) Urine Bacteria RARE /hpf (NONE) Urine Mucus FEW /lpf (OCC) Microscopic Urinalysis Comment CATH-CULTURE IND Activated Partial Thromboplast Time 19.8 SEC (24.3-30.1) Vancomycin Level Trough 28.4 MCG/ML (5.0-10.0) Hemoglobin 6.4 GM/DL (13.0-17.0) Hematocrit 20.1 % (39.0-51.0) Test 08/24/17 18:24 08/25/17 03:16 Hemoglobin 8.6 GM/DL (13.0-17.0) 8.5 GM/DL (13.0-17.0) Hematocrit 26.7 % (39.0-51.0) 26.1 % (39.0-51.0) White Blood Count 28.0 TH/MM3 (4.0-11.0) Red Blood Count 2.80 MIL/MM3 (4.50-5.90) Mean Corpuscular Volume 93.1 FL (80.0-100.0) Mean Corpuscular Hemoglobin 30.2 PG (27.0-34.0) Mean Corpuscular Hemoglobin Concent 32.4 % (32.0-36.0) Red Cell Distribution Width 18.0 % (11.6-17.2) Platelet Count 149 TH/MM3 (150-450) Mean Platelet Volume 11.9 FL (7.0-11.0) Neutrophils (%) (Auto) 95.7 % (16.0-70.0) Lymphocytes (%) (Auto) 1.2 % (9.0-44.0) Monocytes (%) (Auto) 2.9 % (0.0-8.0) Eosinophils (%) (Auto) 0.0 % (0.0-4.0) Basophils (%) (Auto) 0.2 % (0.0-2.0) Neutrophils # (Auto) 26.8 TH/MM3 (1.8-7.7) Lymphocytes # (Auto) 0.3 TH/MM3 (1.0-4.8) Monocytes # (Auto) 0.8 TH/MM3 (0-0.9) Eosinophils # (Auto) 0.0 TH/MM3 (0-0.4) Basophils # (Auto) 0.1 TH/MM3 (0-0.2) CBC Comment DIFF FINAL Differential Comment Activated Partial Thromboplast Time 17.8 SEC (24.3-30.1) Blood Urea Nitrogen 53 MG/DL (7-18) Creatinine 0.70 MG/DL (0.60-1.30) Random Glucose 252 MG/DL (74-106) Calcium Level 7.8 MG/DL (8.5-10.1) Phosphorus Level 4.0 MG/DL (2.5-4.9) Magnesium Level 2.4 MG/DL (1.5-2.5) Sodium Level 145 MEQ/L (136-145) Potassium Level 5.7 MEQ/L (3.5-5.1) Chloride Level 110 MEQ/L (98-107) Carbon Dioxide Level 27.0 MEQ/L (21.0-32.0) Anion Gap 8 MEQ/L (5-15) Estimat Glomerular Filtration Rate 113 ML/MIN (>89) Random Vancomycin Level 26.8 COMMENT . Result Diagram: 08/25/176 08/25/17 0316 Microbiology Microbiology Date/Time Source Procedure Growth Status 08/24/17 04:10 Urine Catheterized Urine Urine Culture - Final NO GROWTH IN 48 HOURS. Complete . Imaging Last 72 hours Impressions Chest X-Ray 08/25/17 0600 Signed Impressions: Service Date/Time: Friday, August 25, 2017 04:42 - CONCLUSION: 1. Bilateral mostly basilar airspace disease stable to slightly increased from 18. Endotracheal tube and nasogastric tube in good position. Quentin Griffin MD . Procedures 08/16/2017: Intubation/reintubation 08/25/2017: Extubation . Assessment and Plan Disease Oriented Problem List: (1) Peripheral vascular disease (2) Pseudomonas pneumonia (3) COPD exacerbation (4) Cardiomyopathy (5) DM type 2 (diabetes mellitus, type 2) (6) CAD (coronary artery disease) (7) COPD (chronic obstructive pulmonary disease) (8) Hyperlipidemia (9) Paroxysmal atrial fibrillation Symptom Scale: (1) Dyspnea 0-10 Scale: Unable to quantify (2) Pain 0-10 Scale: Unable to quantify Pertinent Non-Medical Issues Psychosocial: Patient is originally from [place]. Patient has been for many years. He has 1 adult daughter (Poly) and 2 grand-children. Grandson ( Tristin) and Granddaughter (Deo). Granddaughter (Deo) identifies as male and is to [facility]. Patient's highest education level is eighth grade. He is unemployed; last working in 2010 as a [employer] Plan[employer]. Spiritual: Mandaen shelbi Legal: Per [place] statutes, in the absence of written advanced directives health care proxy decision making falls to the patient's daughter (Poly). Ethical issues impacting care: No known ethical issues impacting care at this time. . Important Contacts Poly Salcedo, daughter: [phone] Tristin Salcedo, grandson: [phone] Deo Salcedo, granddaughter - identifies as male : [phone] ( to [facility]) Juan Carlos Salcedo, brother: [phone] . Prognosis Patient is a 66 yo male with significant lung disease resulting in 4 hospitalizations in the past 6 months. He is currently vent dependent and unable to tolerate CPAP trails; given his advanced lung disease it will be difficult to wean him off the ventilator without a tracheostomy. Given patient' s complex medical history, he will be high risk for ongoing complications and decline. . Code Status: Full Code Plan * FULL CODE * Decision-making: Patient does NOT have insight or judgment concerning his medical conditions at this time. Per [place] statutes, in the absence of written advanced directives health care proxy decision making falls to the patient's daughter (Poly). * AGGRESSIVE GOALS * Dr. Uribe had a lengthy discussion with the patient and his family yesterday 08/25/17 regarding medical treatment goals of care. Patient and family both expressed aggressive goals. Patient indicating again today that he would want reintubation/tracheostomy if his respiratory status were to deteriorate. 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 Uribe). * Symptom management: == Dyspnea: Patient admitted with severe dyspnea s/p being intubated in the field. CTA at admission showed no evidence for pulmonary embolism; moderate to severe upper lobe predominant central lobular emphysema; patchy bibasilar ground-glass opacities likely reflecting atelectasis although differential considerations include aspiration; multiple 4-6mm bilateral ground-glass and solid nodules, likely infectious/ inflammatory. Follow-up sputum culture on 08/22/17 positive sign MRSA. Patient extubated and reintubated on 08/16/2017; successfully extubated 08/25/2017. Plan to proceed with trach should her respiratory status deteriorate. On DuoNeb, Solu-Medrol, Terbutaline, Pulmicort == Pain: Multifactoral. Patient has a known history of chronic back pain, CAD, severe peripheral vascular disease status post left BKA. Additional contributing factors may include invasive lines, immobility etc. Patient denies pain on exam. PRN acetaminophen available. * Positive care will continue to follow this patient throughout his hospitalization to establish stress, assist with symptom management and clarification of medical treatment goals. . Attestation To help prompt me to consider important information that might be impacting today's encounter and assessment, information from prior notes written by myself or my colleagues may have been "brought forward" into today's note. My signature on this note, however, is an attestation that I personally performed the exam, history, and/or decision-making noted today, and, unless otherwise indicated, the interactions with patient, family, and staff as well as the review of records all occurred today. I also attest that the listed assessment and stated plan reflect my best clinical judgment today based on the combination of historical information, prior notes, and today's exam/ interactions. When time spent is documented, it refers only to time spent today by the signer, or if indicated, combined time spent today by collaborating physician/nurse practitioner. . Judith Salazar August 26, 2017 12:29
[2017-08-26] MEDS ORDERED: DEXTROSE 50% IN WATER 50 ML SYRINGE ONE (13:34)
--- NOTE | 2017-08-26 13:41 | HHI.IDPN ---
Subjective Subjective Remarks Mr. Salcedo is a 66-year-old male with past medical history of nonischemic cardiomyopathy with EF 25%,, diabetes mellitus, peripheral vascular disease status post left below-knee amputation in the past. With this background patient presents to the emergency department with acute onset of shortness of breath and altered mental status. Patient was reportedly at the long term and his O2 sats dropped and given his history of COPD EMS was called when EMS saw the patient he developed agonal breathing with O2 sats in the low 80s and pink frothy sputum. Patient was intubated in the field. Patient's blood pressure following intubation dropped from systolic in 190s-60s systolic and patient was started on dopamine in the field by EMS. Patient was admitted to critical care services and underwent sepsis workup. Patient also underwent a CT chest to evaluate for PE which was negative. However it did show severe emphysematous changes with groundglass opacities. Patient has been started on aztreonam IV due to his history of rash to cefaclor. Clinically patient appears to be doing better and his chest x-ray has improved. RN reports that he continues to have some bloody secretions and there was a blood clot noted yesterday. But no active bleeding noted. Concern for possible ongoing aspiration given bleeding. At the time of my evaluation patient is in the ICU currently intubated. Patient underwent CPAP trial but failed. Respiratory therapist notes blood tinged secretions. Urine output okay Patient has had fevers as well as leukocytosis despite steroids being tapered off. Infectious disease consulted for evaluation and management of new fevers as well as increasing leukocytosis despite decreasing steroids. And also concern for Pseudomonas pneumonia. Overnight events reviewed with RN No fevers No rash No diarrhea Awake, alert, follows commands. Not much of voice. Being evaluated for Swallow. Antibiotics Cefepime IV Flagyl oral Vanco IV Lines Line sites with no e.o infection Past Medical History Past Medical History Per review of records Nonischemic cardiomyopathy with EF of 25% on July 2014 cardiac cath report. EF of 60% on January 2015 echo. History of acalculous cholecystitis status post biliary drain placement and subsequent cholecystectomy. Severe COPD Coronary artery disease status post coronary artery bypass in March 2014. Diabetes mellitus Hyperlipidemia Hypertension Paroxysmal atrial fibrillation Peripheral vascular disease status post left external iliac stent, bilateral femoral endarterectomies, bilateral profundoplasty, femorofemoral and aortobifemoral bypasses on May 07, 2014 as well as status post left femoral anterior tibial bypass and amputation of the left first and second toes in April 2016. Thereafter patient underwent a left below-knee amputation in May 01, 2016. Past Surgical History Per review of records Cardiac cath Coronary artery bypass graft in March 2014 Peripheral vascular disease with multiple bypasses in the lower extremities. Left below-knee amputation Allergies: Coded Allergies: cefaclor (Verified Allergy, Intermediate, rash, 06/28/17) Objective . Vital Signs Date Time Temp Pulse Resp B/P (MAP) Pulse Ox O2 Delivery O2 Flow Rate FiO2 08/26/17 12:00 112 08/26/17 10:00 112 08/26/17 10:00 112 08/26/17 08:00 98.0 95 19 165/94 (117) 100 08/26/17 08:00 112 08/26/17 07:29 98 Nasal Cannula 3.00 08/26/17 06:00 112 08/26/17 04:00 106 08/26/17 04:00 98.0 106 19 117/70 (86) 100 08/26/17 02:00 106 08/26/17 01:50 138/99 (112) 08/26/17 00:00 97.9 108 20 99 08/26/17 00:00 108 08/25/17 22:00 104 08/25/17 20:00 109 08/25/17 20:00 97.6 109 15 159/76 (103) 99 08/25/17 19:47 100 Nasal Cannula 4.00 08/25/17 18:00 95 08/25/17 17:00 105 08/25/17 16:00 98.1 99 20 143/72 (95) 99 08/25/17 16:00 99 08/25/17 15:00 98 08/25/17 14:00 92 . Laboratory Tests Test 08/24/17 14:02 08/24/17 18:24 08/25/17 03:16 Hemoglobin 6.4 GM/DL 8.6 GM/DL 8.5 GM/DL Hematocrit 20.1 % 26.7 % 26.1 % White Blood Count 28.0 TH/MM3 Red Blood Count 2.80 MIL/MM3 Mean Corpuscular Volume 93.1 FL Mean Corpuscular Hemoglobin 30.2 PG Mean Corpuscular Hemoglobin Concent 32.4 % Red Cell Distribution Width 18.0 % Platelet Count 149 TH/MM3 Mean Platelet Volume 11.9 FL Neutrophils (%) (Auto) 95.7 % Lymphocytes (%) (Auto) 1.2 % Monocytes (%) (Auto) 2.9 % Eosinophils (%) (Auto) 0.0 % Basophils (%) (Auto) 0.2 % Neutrophils # (Auto) 26.8 TH/MM3 Lymphocytes # (Auto) 0.3 TH/MM3 Monocytes # (Auto) 0.8 TH/MM3 Eosinophils # (Auto) 0.0 TH/MM3 Basophils # (Auto) 0.1 TH/MM3 CBC Comment DIFF FINAL Differential Comment Laboratory Tests Test 08/25/17 03:16 Blood Urea Nitrogen 53 MG/DL Creatinine 0.70 MG/DL Random Glucose 252 MG/DL Calcium Level 7.8 MG/DL Phosphorus Level 4.0 MG/DL Magnesium Level 2.4 MG/DL Sodium Level 145 MEQ/L Potassium Level 5.7 MEQ/L Chloride Level 110 MEQ/L Carbon Dioxide Level 27.0 MEQ/L Anion Gap 8 MEQ/L Estimat Glomerular Filtration Rate 113 ML/MIN Microbiology Date/Time Source Procedure Growth Status 08/24/17 04:10 Urine Catheterized Urine Urine Culture - Final NO GROWTH IN 48 HOURS. Complete Imaging Last Impressions Chest X-Ray 08/21/17 0600 Signed Impressions: Service Date/Time: Monday, August 21, 2017 04:09 - CONCLUSION: Clear lungs. Ricki Metzger Jr., MD CT Angiography 08/13/17 0000 Signed Impressions: Service Date/Time: Sunday, August 13, 2017 07:25 - CONCLUSION: 1. No CT evidence for pulmonary embolism as questioned. 2. Moderate to severe upper lobe predominant centrilobular emphysema. 3. Patchy bibasilar groundglass opacities likely reflecting atelectasis although differential considerations include aspiration. 4. Multiple 4-6mm bilateral groundglass and solid nodules, likely infectious/inflammatory. Recommend followup CT examination in approximately 6 months per 2017 Fleischner criteria (6mm nodule). Steve Barajas MD Physical Exam GENERAL: This is a well-nourished, well-developed patient, in no apparent distress. SKIN: No rashes, ecchymoses or lesions. Cool and dry. HEAD: Atraumatic. Normocephalic. No temporal or scalp tenderness. EYES: Pupils equal round and reactive. Extraocular motions intact. No scleral icterus. No injection or drainage. ENT: Intubated. NECK: Trachea midline. Supple, nontender, no meningeal signs. CARDIOVASCULAR: HS audible. No murmur appreciated. RESPIRATORY: Clear to auscultation. Breath sounds decreased in bases. GASTROINTESTINAL: Abdomen soft, non-tender, nondistended. MUSCULOSKELETAL: Left leg BKA site ok. NEUROLOGICAL: Opens eyes.Non focal exam. Did not follow commands Psych could not be assessed. IV line sites with no e.o infection Assessment & Plan Remarks New Severe Sepsis. MRSA pneumonia. Acute resp failure on vent Acute metabolic encephalopathy: infection, metabolic Pseudomonas pneumonitis in setting of aspiration was being treated. High grade leucocytosis on steroids plus infection. Recs DC Cefepime IV DC flagyl DC Vanco IV DC Micafungin IV Start Levaquin oral (stop date: 08/29/2017) Start Zyvox oral (stop date: 08/29/2017) Stool Cdiff negative. DC oral vanco. Follow cultures Follow clinically. to cover for mo 08/27/2017 to 08/29/2017. Sofia Crawford MD August 26, 2017 13:41
[2017-08-26] MEDS: LEVOFLOXACIN 500 MG TAB PO SCH (14:53)
[2017-08-26] MEDS: LINEZOLID 600 MG TAB PO SCH ×2 (14:53→21:00)
--- NOTE | 2017-08-26 15:12 | PD.CARD.PN ---
Subjective Subjective Remarks Awake. Alert. No CP. Mild dyspnea at rest. No dizziness, palpitations. Reports occasional "sharp" substernal CP's prior to coming into hospital. Objective Medications Item Value Date Time Atorvastatin 40 mg 08/15/17 2100 Calcium HS/PO (Lipitor) Metoprolol 50 mg 08/15/17 0900 Tartrate Q12HR/PO 08/26/17 0934 (Lopressor) Spironolactone 25 mg 08/15/17 0900 (Aldactone) DAILY/PO 08/26/17 0934 Current Medications Medications (Trade) Dose Ordered Sig/Lindsey Route Start Time Stop Time Status Last Admin (D50w (Vial) Inj) 50 ml UNSCH PRN IV PUSH 08/13/17 05:30 08/26/17 04:18 (Glucagon Inj) 1 mg UNSCH PRN OTHER 08/13/17 05:30 (Brethine Inj) 1 mg UNSCH PRN SQ 08/13/17 06:15 (NS Flush) 2 ml UNSCH PRN IV FLUSH 08/13/17 07:00 (NS Flush) 2 ml BID IV FLUSH 08/13/17 09:00 08/25/17 21:20 (Tylenol) 650 mg Q6H PRN PO 08/13/17 07:00 08/22/17 10:39 (Peridex 0.12% Liq) 15 ml BID@08,20 MT 08/13/17 08:00 08/26/17 08:00 (Pepcid) 20 mg BID TUBE 08/13/17 09:00 08/26/17 09:34 ([facility] [place] [facility] Information) 1 Q361D XX 08/13/17 07:00 08/13/17 07:00 (Chlorhexidine 2% Cloth) Taper DAILY@04 TOP 08/14/17 04:00 08/10/18 03:59 08/25/17 04:00 (Chlorhexidine 2% Cloth) 3 pack UNSCH PRN TOP 08/13/17 07:00 (Aspirin Chew) 81 mg DAILY CHEW 08/13/17 09:00 08/26/17 09:34 Potassium Chloride 100 ml @ 50 mls/hr Q2H PRN IV 08/14/17 04:15 Potassium Chloride 100 ml @ 50 mls/hr Q2H PRN IV 08/14/17 04:15 08/18/17 23:31 (K-Lyte Cl Eff) 50 meq UNSCH PRN PO 08/14/17 04:15 Potassium Chloride 100 ml @ 25 mls/hr UNSCH PRN IV 08/14/17 04:15 Potassium Chloride 100 ml @ 50 mls/hr Q2H PRN IV 08/14/17 04:15 08/16/17 06:30 Magnesium Sulfate 4 gm/Sodium Chloride 100 ml @ 50 mls/hr UNSCH PRN IV 08/14/17 04:15 (Mag-Ox) 800 mg UNSCH PRN PO 08/14/17 04:15 Magnesium Sulfate 2 gm/Sodium Chloride 100 ml @ 50 mls/hr UNSCH PRN IV 08/14/17 04:15 08/14/17 09:02 (K-Phos) 2,000 mg Q4H PRN PO 08/14/17 04:15 Sodium Phosphate 30 mmol/Sodium Chloride 250 ml @ 42 mls/hr UNSCH PRN IV 08/14/17 04:15 (K-Phos) 2,000 mg UNSCH PRN PO/TUBE 08/14/17 04:15 Potassium Phosphate 30 mmol/ Sodium Chloride 260 ml @ 42 mls/hr UNSCH PRN IV 08/14/17 04:15 (Pulmicort Respule Neb) 0.5 mg Q12HR NEB NEB 08/14/17 14:00 08/26/17 07:28 (Lopressor) 50 mg Q12HR PO 08/15/17 09:00 08/26/17 09:34 (Prinivil) 10 mg DAILY PO 08/15/17 09:00 Future Hold 08/21/17 07:56 (Aldactone) 25 mg DAILY PO 08/15/17 09:00 08/26/17 09:34 (Lasix) 20 mg DAILY PO 08/15/17 09:00 Future Hold 08/21/17 07:56 (Lipitor) 40 mg HS PO 08/15/17 21:00 08/24/17 21:53 (Brethine Inj) 1 mg UNSCH PRN SQ 08/17/17 12:30 (Coumadin) 4 mg DAILY@16 PO 08/18/17 16:00 Future Hold 08/18/17 17:02 (Lovenox Inj) 40 mg Q24H SQ 08/20/17 10:00 Future Hold 08/21/17 10:13 (SoluMEDROL INJ) 60 mg Q12HR IV PUSH 08/21/17 21:00 08/26/17 09:00 (Lopressor Inj) 2.5 mg Q6H PRN IV PUSH 08/22/17 08:00 (Levemir Inj) 70 units Q12HR SQ 08/22/17 21:00 08/25/17 07:51 (NovoLOG SUPPLEMENTAL SCALE) 1 Q4HR SQ 08/22/17 09:30 08/25/17 12:20 (Duoneb Neb) 1 ampule Q4HR NEB INH 08/25/17 20:00 08/26/17 12:22 (Zyvox) 600 mg Q12HR PO 08/26/17 13:45 08/26/17 14:53 (Levaquin) 500 mg DAILY PO 08/26/17 13:45 08/26/17 14:53 Vital Signs / I&O Vital Signs Date Time Temp Pulse Resp B/P (MAP) Pulse Ox O2 Delivery O2 Flow Rate FiO2 08/26/17 14:00 112 08/26/17 12:00 98.0 95 19 157/74 (101) 100 08/26/17 12:00 112 08/26/17 10:00 112 08/26/17 10:00 112 08/26/17 08:00 98.0 95 19 165/94 (117) 100 08/26/17 08:00 112 08/26/17 07:29 98 Nasal Cannula 3.00 08/26/17 06:00 112 08/26/17 04:00 106 08/26/17 04:00 98.0 106 19 117/70 (86) 100 08/26/17 02:00 106 08/26/17 01:50 138/99 (112) 08/26/17 00:00 97.9 108 20 99 08/26/17 00:00 108 08/25/17 22:00 104 08/25/17 20:00 109 08/25/17 20:00 97.6 109 15 159/76 (103) 99 08/25/17 19:47 100 Nasal Cannula 4.00 08/25/17 18:00 95 08/25/17 17:00 105 08/25/17 16:00 98.1 99 20 143/72 (95) 99 08/25/17 16:00 99 I/O 08/25/17 08/25/17 08/25/17 08/26/17 08/26/17 08/26/17 07:00 15:00 23:00 07:00 15:00 23:00 Intake Total 2458 ml 1114 ml 100 ml Output Total 500 ml 1050 ml 900 ml Balance 1958 ml 64 ml -800 ml IV Total 1375 ml 1000 ml 100 ml Tube Feeding 483 ml 114 ml Other 600 ml Output Urine Total 500 ml 1050 ml 900 ml Stool Total 0 ml # Bowel Movements 0 1 1 Physical Exam GENERAL: Well developed, well nourished. No acute distress. HEENT: Jugular venous pressure is normal. CHEST: Scattered rhonchi anteriorly. CARDIAC: Regular rate and rhythm without S3, S4, or murmur. ABDOMEN: Soft, no hepatosplenomegaly. Bowel sounds present. EXTREMITIES: No edema on the right. Status post left BKA. Assessment and Plan Problem List: (1) CAD (coronary artery disease) ICD Codes: I25.10 - Coronary artery disease Status: Chronic Plan: Possible NSTEMI on admission. Echo technically limited, appears to have normal LV function, EF about 55%. May also have right ventricular hypertrophy with normal RV function. Recent very atypical CP's. Repeat EKG unchanged, no diagnostic ST/T changes. REC continue metoprolol, aspirin consider nuclear stress test though even if ischemia demonstrated, recommend medical therapy especially with problems with severe anemia this admission resume Lisinopril when possible; add oral nitrate will f/u periodically (2) Cardiomyopathy ICD Codes: I42.9 - Cardiomyopathy, unspecified Status: Resolved Plan: Prior history of EF 25%. No definite acute CHF. Echo this admission technically limited, appears to have normal LV function, EF about 55%. Continue beta allyn, resume JOSEFINA-I, diuretic when possible. (3) Paroxysmal atrial fibrillation ICD Codes: I48.0 - Paroxysmal atrial fibrillation Status: Chronic Plan: Poorly documented history of paroxysmal atrial fib. Remains in NSR. Resume anticoagulation when possible. (4) Hypertension ICD Codes: I10 - Hypertension Status: Chronic Plan: Fluctuating BP's. Monitor. Code Status full code Discussed Condition With patient Problem Qualifiers (1) CAD (coronary artery disease): Qualified Codes: I25.119 - Atherosclerotic heart disease of [place] coronary artery with unspecified angina pectoris (2) Cardiomyopathy: Qualified Codes: I42.9 - Cardiomyopathy, unspecified (3) Hypertension: Qualified Codes: I10 - Essential (primary) hypertension Rich Gary MD August 26, 2017 15:12
--- NOTE | 2017-08-26 17:13 | HHI.CCPN ---
Subjective Remarks/Hospital Course 66-year-old male who was brought to the ER after he developed shortness of breath and altered mental status. [facility] on nasal cannula 2 L because of his history of COPD as he uses it off and on. EMS was called when patient developed agonal respirations with O2 sats in the low 80s on their arrival with pink frothy sputum. Patient was intubated in the field after receiving etomidate and Versed. His systolic blood pressure was 190s following intubation and dropped to the 60 systolic range and he was started on dopamine in the field by EMS. He was brought to the ER at [facility] and noted to have elevated troponin on his admitting labs. He was accepted for admission by critical care medicine service. He underwent a CT chest to evaluate for PE which was negative for PE however did show severe emphysematous changes with groundglass opacities. History is significantly limited by the fact that he is intubated. When I evaluated the patient he was sedated, orally intubated on mechanical ventilation. History was obtained by reviewing records. SUBJ 08/14/17: Remains intubated sedated, a CPAP was attempted but patient failed almost immediately with severe tachypnea. Continues to have bilateral expiratory wheezing and diminished air entry. Initial troponin was 3.18 now down trending 08/15/17: Patient remains intubated sedated with Versed and fentanyl. On sedation hold wakes up easily follows commands. On attempted CPAP patient became tachypneic with labored breathing using accessory muscles. Not ready for extubation. Pseudomonas growing in sputum. Increase Azactam to 2 g IV every 8 hours 08/16/17: Tolerating CPAP trials better today. Sputum culture growing Pseudomonas pansensitive. Will attempt to extubate with BiPAP use if needed 08/17/17: Reintubated yesterday evening following severe respiratory distress and severe wheezing. Currently remains sedated on vent support. Persistent wheezing. 08/18: Remains intubated sedated. Will initiate CPAP trials again. Patient has severe emphysema and will be difficult to wean to extubate. Wheezing persists. 08/19: Remains sedated, orally intubated on mechanical ventilation. Significant bloody respiratory secretions being suctioned from ET tube. On heparin for anticoagulation. Will hold Coumadin. 08/20: Sedated, arousable, orally intubated on mechanical ventilation. Failing CPAP trials. Heparin held yesterday due to increasing bloody respiratory secretions. 08/21: Remains sedated wakes up easily. Failed CPAP trial immediately today due to tachypnea and respiratory distress. No significant bloody secretions. Chest x-ray was clear. I discussed briefly with daughter. Poly Salcedo about possibility of trach. She needs more time to decide and needs time to discuss with family. I have consulted palliative care to address goals of care. Vent day 9 today. With his some advanced emphysema it will be difficult to wean him off the ventilator without tracheostomy 08/22: Patient is more critical becoming more septic. White count yesterday was 27.5. Today he spiked fever 101.3, tachycardic heart rate in 120s borderline hypotensive.. Chest x-ray shows developing left base infiltrate. Will continue cefepime panculture ordered. Vancomycin 1.25 g 1 and pharmacy to dose. Normal saline bolus 2 L ordered. 08/23: T-max 100.0. Hemoglobin downtrending now 7.2. Patient continues to be borderline hypotensive, monitor Hgb. Patient was tentatively scheduled for percutaneous tracheostomy this a.m. however unable to obtain consent from family members. Sodium level starting to downtrend with addition of free water flushes. 08/24: Hemodynamically stable throughout the night. Transfusion 1 unit of packed cells placed on hold with cancellation percutaneous tracheostomy due to lack of consent. H&H pending this afternoon, will transfuse for hemoglobin less than 7. Patient awake continuing on CPAP for greater than 4 hours today. 08/25: more awake. passed SBT. discussion with family and patient: he would want to be re-intubated and pursue tracheostomy if he fails again. 08/26: remained extubated. denies complaints. high risk for reintubation. wants aggressive care and tracheostomy if re-intubated. Objective Vital Signs Date Time Temp Pulse Resp B/P (MAP) Pulse Ox O2 Delivery O2 Flow Rate FiO2 08/26/17 14:00 112 08/26/17 12:00 98.0 19 157/74 (101) 100 08/26/17 07:29 Nasal Cannula 3.00 08/25/17 12:00 35 Intake and Output 08/26/17 08/26/17 08/26/17 07:59 15:59 23:59 Intake Total 100 ml Output Total 900 ml Balance -800 ml Result Diagram: 08/25/17 0316 08/25/17 0316 Other Results Microbiology Date/Time Source Procedure Growth Status 08/24/17 04:10 Urine Catheterized Urine Urine Culture - Final NO GROWTH IN 48 HOURS. Complete Imaging Last Impressions Chest X-Ray 08/23/17 0600 Signed Impressions: Service Date/Time: Wednesday, August 23, 2017 04:23 - CONCLUSION: Clear lungs. Ricki Metzger Jr., MD CT Angiography 08/13/17 0000 Signed Impressions: Service Date/Time: Sunday, August 13, 2017 07:25 - CONCLUSION: 1. No CT evidence for pulmonary embolism as questioned. 2. Moderate to severe upper lobe predominant centrilobular emphysema. 3. Patchy bibasilar groundglass opacities likely reflecting atelectasis although differential considerations include aspiration. 4. Multiple 4-6mm bilateral groundglass and solid nodules, likely infectious/inflammatory. Recommend followup CT examination in approximately 6 months per 2017 Fleischner criteria (6mm nodule). Steve Barajas MD Last Impressions Chest X-Ray 08/13/17 0414 Signed Impressions: Service Date/Time: Sunday, August 13, 2017 04:28 - CONCLUSION: Lungs are grossly clear. ET tube in good position. Abel Cannon MD CT Angiography 08/13/17 0000 Signed Impressions: Service Date/Time: Sunday, August 13, 2017 07:25 - CONCLUSION: 1. No CT evidence for pulmonary embolism as questioned. 2. Moderate to severe upper lobe predominant centrilobular emphysema. 3. Patchy bibasilar groundglass opacities likely reflecting atelectasis although differential considerations include aspiration. 4. Multiple 4-6mm bilateral groundglass and solid nodules, likely infectious/inflammatory. Recommend followup CT examination in approximately 6 months per 2017 Fleischner criteria (6mm nodule). Steve Barajas MD Objective Remarks GEN: middle-aged male who appears much older than stated age, no acute distress HEENT: Pallor present, no icterus, tongue/ mucosa moist. Neck: No JVD Chest/Pulm: 3L nc o2. equal chest rise. unlabored. CVS: normal rate, regular rhythm. sinus by tele. GI/abdomen: soft, nontender, no guarding. Extremities: warm bilaterally, 2+ peripheral edema bilateral upper extremity edema. Left lower extremity status post BKA Neuro: awake. follows commands. RASS 0. A/P Assessment and Plan Assessment: Acute on chronic hypoxic and hypercarbic respiratory failure on mechanical ventilation-resolving Acute metabolic encephalopathy- resolved Severe sepsis (Fever leukocytosis hypotension tachycardia) Acute COPD exacerbation NSTEMI Pseudomonas pneumonia MRSA Ventilator associated pneumonia Advanced COPD/emphysema CAD History of cardiomyopathy Diabetes Hyperlipidemia Hypertension Paroxysmal atrial fibrillation. Peripheral vascular disease Plan: Neuro: -Sedation with Versed/fentanyl gtt. Follow neuro status. Cardiovascular: -Currently on metoprolol, lisinopril, Lasix and Aldactone per Dr. Gary. Holding Lasix and lisinopril due to increasing BUN, hypotension -Use metoprolol IV as needed for hypertension, tachycardia -Holding heparin and Coumadin since 08/19 in view of hemoptysis currently. Continue Lovenox 40 mg sq daily -Continue aspirin. Cardiology Dr. Gary. 2D echo EF 50% -Dr. Gary recommends nuclear stress test when extubated Pulmonary: -wean to extubate today - patient and family goals as of my discussion 08/25: aggressive care including tracheostomy if he gets reintubated. -Failed extubation 08/16/2017, reintubated approximately after 6-8 hours. Total vent day 13 -Patient will need prolonged ventilatory support and will need trach due to severe emphysema, and pneumonia and sepsis -CT of the chest showed severe emphysema and pneumonia -IV Solu-Medrol, inhaled budesonide -Currently on cefepime and Flagyl, and vancomycin GI/liver: -Tube feeds with Jevity, bowel regimen. Renal/: -Lasix and Aldactone held. -Continue half-normal saline, and free water flushes 2/2 hypernatremia -Strict intake output, monitor and replete electrodes, follow BUN/creatinine. ID: -Sputum culture growing Pseudomonas 08/13/17, Azactam changed to Cefepime by ID, Dr. Crawford. Continue p.o. Flagyl -Vancomycin added for new onset fever leukocytosis with SIRS -sputum culture 08/22 growing MRSA. - ID to manage abx. Endocrine: -Watch for hypoglycemia, SSI for glycemic control if needed. -Currently on Levemir 60 every 12 increased to 70 every 12 due to poor glycemic control Heme: -Follow CBC and coags. Holding heparin and Coumadin in view of hemoptysis. Prophylaxis: -Pepcid/SCDs. Lovenox 40 mg subcutaneously (Full anticoagulation held due to hemoptysis) and will continue prophylactic dose provided hemoptysis does not recur or worsen Dispo: will consult hospitalist service. Meet Uribe MD August 26, 2017 17:13
--- NOTE | 2017-08-26 18:28 | RADRPT ---
EXAM DATE/TIME: 08/26/2017 18:09 [facility] COMPARISON: No previous studies available for comparison. INDICATIONS : Dobbhoff placement. MEDICAL HISTORY : Cerebrovascular disease. Congestive heart failure. Hypertension. Diabetes. SURGICAL HISTORY : CABG. Abdominal aortic aneurysm repair. Cholecystectomy. ENCOUNTER: Subsequent ACUITY: 3 days PAIN SCORE: Non-responsive. LOCATION: Abdomen. FINDINGS: A single portable supine view of the abdomen limits the right lateral abdomen and lower abdomen. A we ighted feeding tube is seen with the tip projected towards the region of the pylorus. No dilated loop s of bowel. Clear lung bases. CONCLUSION: Tip of the feeding tube projecting towards the pylorus. Ricki Metzger Jr., MD on August 26, 2017 at 18:25 Board Certified Radiologist. This report was verified electronically.
[2017-08-26] MEDS: ATORVASTATIN 40 MG TAB PO SCH (21:00)
[2017-08-26] MEDS: METOPROLOL TARTRATE 5 MG/5 ML VIAL IV PUSH PRN (21:43)
--- NOTE | 2017-08-26 22:53 | RADRPT ---
EXAM DATE/TIME: 08/26/2017 22:32 [facility] COMPARISON: ABDOMEN SINGLE VIEW, August 26, 2017, 18:09. INDICATIONS : Dobhoff placement confirmation. MEDICAL HISTORY : Cerebrovascular disease. Congestive heart failure. Hypertension. Diabetes. SURGICAL HISTORY : CABG. Abdominal aortic aneurysm repair. Cholecystectomy. ENCOUNTER: Subsequent ACUITY: 1 day PAIN SCORE: Non-responsive. LOCATION: Bilateral abdomen. FINDINGS: A single portable frontal view of the abdomen shows a change in the position of the weighted feeding tube. It is now coiled in the fundus of the stomach. No dilated bowel loops observed. CONCLUSION: Feeding tube coiled in the fundus of the stomach. Ricki Metzger Jr., MD on August 26, 2017 at 22:50 Board Certified Radiologist. This report was verified electronically.
[2017-08-27] VITALS (24 sets, daily range): BP systolic 127–162; BP diastolic 61–97; PULSE 84–129; RESP 18–34; TEMP 98–99; O2SAT 99–100
--- NOTE | 2017-08-27 02:51 | RADRPT ---
EXAM DATE/TIME: 08/27/2017 02:09 [facility] COMPARISON: ABDOMEN SINGLE VIEW, August 26, 2017, 22:32. INDICATIONS : Dobhoff tube placement. MEDICAL HISTORY : None. SURGICAL HISTORY : None. ENCOUNTER: Subsequent ACUITY: 4 - 6 days PAIN SCORE: 0/10 LOCATION: Bilateral abdomen FINDINGS: Examination of the abdomen demonstrates a normal bowel gas pattern. No free air is identified. No o rganomegaly is evident. Osseous structures are intact. The Dobbhoff tube has been advanced into the stomach and is no longer coiled. The tip is in the proximal stomach. The patient is noted to be statu s post median sternotomy. CONCLUSION: The Dobbhoff tube was advanced into the proximal stomach. Jacinto Benton MD on August 27, 2017 at 2:49 Board Certified Radiologist. This report was verified electronically.
[2017-08-27] MEDS: RESP: ALBUTEROL 2.5 MG/IPRATROPIUM 0.5 MG NEB (SCH) INH ×5 (03:44→20:08)
[2017-08-27] MEDS: INSULIN ASPART SUPPLEMENTAL SCALE SQ SCH ×6 (04:00→21:37)
[2017-08-27] MEDS: CHLORHEXIDINE GLUCONATE 2 % 1 PACK (2 CLOTHS) TOP SCH (04:00)
[2017-08-27] MEDS: METOPROLOL TARTRATE 50 MG TAB PO SCH ×3 (04:22→21:38)
[2017-08-27] MEDS: ISOSORBIDE MONONITRATE 60 MG CR TAB (IMDUR) PO SCH (05:57)
[2017-08-27] MEDS: RESP: BUDESONIDE 0.5 MG/2 ML NEB NEB SCH ×2 (07:24→20:08)
[2017-08-27] MEDS: CHLORHEXIDINE 0.12% (ORAL KIT) 15 ML CUP MT SCH ×2 (08:00→21:36)
[2017-08-27] MEDS: SODIUM CHLORIDE 0.9% FLUSH 10 ML FLUSH IV FLUSH SCH ×2 (09:00→21:37)
[2017-08-27] MEDS: ASPIRIN 81 MG CHEW TAB CHEW SCH (09:00)
[2017-08-27] MEDS: LINEZOLID 600 MG TAB PO SCH ×2 (09:00→21:38)
[2017-08-27] MEDS: methylPREDNISolone SOD SUCC 40 MG/1 ML VIAL IV PUSH SCH (10:05)
[2017-08-27] MEDS: SPIRONOLACTONE 25 MG TAB PO SCH (10:06)
[2017-08-27] MEDS: LEVOFLOXACIN 500 MG TAB PO SCH (10:06)
[2017-08-27] MEDS: FAMOTIDINE 20 MG TAB TUBE SCH ×2 (10:06→21:38)
--- NOTE | 2017-08-27 10:31 | HHI.PR ---
Subjective Remarks The patient was resting comfortably in bed. He did not seem to have any acute complaints. Discussed with nursing at the bedside. His blood sugars have been running low so he has not been receiving Levemir. He also has poor vascular access and labs have not been able to be drawn today. Objective Vitals Vital Signs Date Time Temp Pulse Resp B/P (MAP) Pulse Ox O2 Delivery O2 Flow Rate FiO2 08/27/17 08:00 84 08/27/17 08:00 98.6 99 22 132/61 (84) 100 08/27/17 07:26 100 Nasal Cannula 3.00 08/27/17 06:00 84 08/27/17 04:00 106 08/27/17 04:00 98.6 106 24 154/77 (102) 100 08/27/17 03:47 100 Nasal Cannula 3.00 08/27/17 02:00 114 08/27/17 00:00 98.6 125 29 154/97 (116) 100 08/27/17 00:00 125 08/26/17 23:30 100 Nasal Cannula 3.00 08/26/17 22:00 105 08/26/17 20:02 98 Nasal Cannula 3.00 08/26/17 20:00 103 08/26/17 20:00 98.7 103 26 135/66 (89) 100 08/26/17 18:00 112 08/26/17 16:00 112 08/26/17 16:00 97.8 116 20 163/77 (105) 100 08/26/17 14:00 112 08/26/17 12:00 98.0 95 19 157/74 (101) 100 08/26/17 12:00 112 I/O 08/26/17 08/26/17 08/26/17 08/27/17 08/27/17 08/27/17 07:00 15:00 23:00 07:00 15:00 23:00 Intake Total 100 ml 25 ml 0 ml Output Total 900 ml 1200 ml 1075 ml Balance -800 ml -1175 ml -1075 ml Intake Oral 25 ml IV Total 100 ml 0 ml Output Urine Total 900 ml 1200 ml 1075 ml # Bowel Movements 1 2 Result Diagram: 08/25/17 0316 08/25/17 0316 Imaging Last Impressions Abdomen X-Ray 08/27/17 0000 Signed Impressions: Service Date/Time: Sunday, August 27, 2017 02:09 - CONCLUSION: The Dobbhoff tube was advanced into the proximal stomach. Jacinto Benton MD Chest X-Ray 08/25/17 0600 Signed Impressions: Service Date/Time: Friday, August 25, 2017 04:42 - CONCLUSION: 1. Bilateral mostly basilar airspace disease stable to slightly increased from 18. Endotracheal tube and nasogastric tube in good position. Quentin Griffin MD CT Angiography 08/13/17 0000 Signed Impressions: Service Date/Time: Sunday, August 13, 2017 07:25 - CONCLUSION: 1. No CT evidence for pulmonary embolism as questioned. 2. Moderate to severe upper lobe predominant centrilobular emphysema. 3. Patchy bibasilar groundglass opacities likely reflecting atelectasis although differential considerations include aspiration. 4. Multiple 4-6mm bilateral groundglass and solid nodules, likely infectious/inflammatory. Recommend followup CT examination in approximately 6 months per 2017 Fleischner criteria (6mm nodule). Steve Barajas MD Objective Remarks GEN: No acute distress. HEENT: Pallor present, no icterus, tongue/ mucosa moist. Dobbhoff tube in place. Neck: No JVD Chest/Pulm: Unlabored. CVS: normal rate, regular rhythm. sinus by tele. GI/abdomen: soft, nontender, no guarding. Extremities: warm bilaterally, 2+ peripheral edema, bilateral upper extremity edema. Left lower extremity status post BKA Neuro: awake. follows commands. A/P Assessment and Plan Acute on chronic hypoxic and hypercarbic respiratory failure on mechanical ventilation Patient and family goals as of 08/25: aggressive care including tracheostomy if he gets reintubated. Failed extubation 08/16/2017, reintubated approximately after 6-8 hours. Total vent days: 13. CT of the chest showed severe emphysema and pneumonia. Hemoptysis has been reported. - IV Solu-Medrol changed to prednisone BID. - inhaled budesonide. - standing and as needed nebs. - antibiotics per ID. - pulmonology consult requested. - IS. - PT/ OT. Acute metabolic encephalopathy/ Severe sepsis (Fever leukocytosis hypotension tachycardia) Sputum culture growing Pseudomonas 08/13/17, MRSA 08/22. - continue Levaquin and Zyvox per ID. NSTEMI Was on metoprolol, lisinopril, Lasix and Aldactone per Dr. Gary. Holding Lasix and lisinopril due to increasing BUN, hypotension. EF 50%. - Use metoprolol IV as needed for hypertension, tachycardia. - Holding heparin and Coumadin since 08/19 in view of hemoptysis. Continue Lovenox 40 mg sq daily - Continue aspirin. - consider stress test, however, medical management would be recommended per cardiology. Malnutrition Dobbhoff in place. - Tube feeds with bowel regimen. Hyperkalemia Potassium still elevated. - resume Lasix and hold Aldactone. DM Exacerbated by steroids. - wean to prednisone. - hold Levemir. Continue sliding scale. Adjust regimen as needed. Poor access Unable to get an IV. - Vascular access team consult. PPx: Lovenox 40 mg subcutaneously (Full anticoagulation held due to hemoptysis ) and will continue prophylactic dose provided hemoptysis does not recur or worsen Jacinto Jaimes DO August 27, 2017 10:30
--- NOTE | 2017-08-27 15:20 | MB ---
cc: Goran Zimmer MD DATE: 08/27/2017 REASON FOR CONSULTATION: Shortness of breath. HISTORY OF PRESENT ILLNESS: Mr. Salcedo is a 66-year-old male with a known history of COPD, diabetes mellitus, peripheral arterial disease with left below-knee amputation, coronary artery disease with history of angina pectoris, obstructive sleep apnea, apparently has been on PAP therapy in the past, hypertension, degenerative disk disease, atrial fibrillation, hyperlipidemia and aortofemoral bypass before in the past. FAMILY HISTORY: Noncontributory. CURRENT MEDICATIONS: Review MAR for detail. ALLERGIES: CEFACLOR. REVIEW OF SYSTEMS: A 12-point review of systems is as per HPI and past history, otherwise negative. PHYSICAL EXAMINATION: GENERAL: The patient is alert. VITAL SIGNS: Temperature 98.5, pulse 90, respirations 18, blood pressure 115/70. HEENT: Unremarkable. Eyes without icterus. NECK: No adenopathy or thyroid enlargement. CHEST: Decreased breath sounds at the bases. CARDIAC: PMI not appreciated. S1, S2 audible. No murmur, no rub. ABDOMEN: Lax. Bowel sounds are audible. EXTREMITIES: No clubbing, cyanosis. Trace edema. LABORATORY DATA: White count 28,000; hemoglobin 8.5,;hematocrit 26; platelets at 18,000. Arterial blood gas last done 08/14/2017, pH 7.35, pCO2 of 58, pO2 of 83. Sodium 145, potassium 3.7, BUN 53, creatinine 0.7. IMAGING STUDIES: Chest x-ray 08/25/2017 with bilateral atelectatic change at the bases. The patient was intubated at that time. IMPRESSION: 1. Respiratory failure, now off ventilatory support. 2. Peripheral vascular disease post right below-knee amputation. 3. Chronic obstructive pulmonary disease. 4. Hypertension. 5. Diabetes mellitus. 6. Coronary artery disease. 7. Hyperlipidemia. 8. Atrial fibrillation. PLAN: The patient's respiratory failure and hypoxemia is multifactorial. We will attempt to ascertain the pulmonary status further by obtaining pulmonary function and would help guide future therapy. His chest x-ray should be followed until the changes in the chest x-ray are resolved. The patient, however, has been intubated and once he is able to remove better and hopefully ambulate, the atelectatic change should improve. The pulmonary toilet will be maintained on bronchodilator therapy given, his sleep will be further evaluated once able. Apparently, he was being evaluated for sleep apnea in the past. I do not believe he is receiving treatment at present. I do thank you for asking me to partake in Mr. Salcedo's care. Goran Zimmer MD WWW/XAVIER , 02:53 PM , 03:19 PM
--- NOTE | 2017-08-27 15:33 | PD.RAD ---
Post Procedure Progress Note Pre Procedure Diagnosis: (1) Stasis ulcer of left lower extremity Post Procedure Diagnosis: (1) Skin ulcer of left groin (2) Stasis ulcer of left lower extremity Procedure Date: August 27, 2017 Supervising Radiologist: Joel Dhillon Proceduralist/Assist: RT Esmer(R)(WADE), Other (Cristhian) Anesthesia: Local Plan of Activity Patient to Unit: Nursing Unit Patient Condition: Fair See PACS Report for procedural detail/treatment Central Venous Access Device Procedure 1 Right Internal Jugular Central Line Placement triple lumen Martiniquais: 7 PICC Line Length (cm): 16 Joel Dhillon MD August 27, 2017 15:33
[2017-08-27] MEDS ORDERED: SODIUM CHLORIDE 0.9% FLUSH 10 ML FLUSH IV FLUSH PRN (15:45)
[2017-08-27 17:02] LABS: HEMATOCRIT 24.9 % (39.0-51.0); HEMOGLOBIN 8.1 GM/DL (13.0-17.0); MEAN CELL VOLUME 91.8 FL (80.0-100.0); MEAN CORPUSCULAR HEMOGLOBIN 29.9 PG (27.0-34.0); MEAN CORPUSCULAR HGB CONC 32.5 % (32.0-36.0); MEAN PLATELET VOLUME 10.4 FL (7.0-11.0); PLATELET COUNT 168 TH/MM3 (150-450); RED BLOOD COUNT 2.72 MIL/MM3 (4.50-5.90); WHITE BLOOD COUNT 27.3 TH/MM3 (4.0-11.0)
[2017-08-27 17:35] LABS: BICARBONATE 26.8 MEQ/L (21.0-32.0); CALCIUM 8.7 MG/DL (8.5-10.1); CREATININE 0.39 MG/DL (0.60-1.30)
[2017-08-27] MEDS ORDERED: INSULIN DETEMIR 100 UNITS/ML VIAL SQ SCH (21:00)
[2017-08-27] MEDS: predniSONE 20 MG TAB PO SCH (21:37)
[2017-08-27] MEDS: ATORVASTATIN 40 MG TAB PO SCH (21:37)
[2017-08-27] MEDS: ACETAMINOPHEN 325 MG TAB PO PRN (21:38)
[2017-08-28] VITALS (20 sets, daily range): BP systolic 115–159; BP diastolic 65–102; PULSE 91–113; RESP 18–33; TEMP 97.7–99; O2SAT 98–100
[2017-08-28] MEDS: RESP: ALBUTEROL 2.5 MG/IPRATROPIUM 0.5 MG NEB (SCH) INH ×7 (00:09→23:27)
[2017-08-28] MEDS: INSULIN ASPART SUPPLEMENTAL SCALE SQ SCH ×6 (00:41→20:00)
[2017-08-28] MEDS: METOPROLOL TARTRATE 50 MG TAB PO SCH ×3 (04:21→20:44)
[2017-08-28] MEDS: CHLORHEXIDINE GLUCONATE 2 % 1 PACK (2 CLOTHS) TOP SCH (04:21)
[2017-08-28 04:55] LABS: HEMATOCRIT 23.3 % (39.0-51.0); HEMOGLOBIN 7.4 GM/DL (13.0-17.0); MEAN CELL VOLUME 92.8 FL (80.0-100.0); MEAN CORPUSCULAR HEMOGLOBIN 29.3 PG (27.0-34.0); MEAN CORPUSCULAR HGB CONC 31.5 % (32.0-36.0); MEAN PLATELET VOLUME 10.8 FL (7.0-11.0); PLATELET COUNT 156 TH/MM3 (150-450); RED BLOOD COUNT 2.51 MIL/MM3 (4.50-5.90); RED CELL DISTRIBUTION WIDTH 17.3 % (11.6-17.2); WHITE BLOOD COUNT 22.8 TH/MM3 (4.0-11.0)
[2017-08-28 05:17] LABS: BICARBONATE 28.2 MEQ/L (21.0-32.0); CALCIUM 8.3 MG/DL (8.5-10.1); CREATININE 0.36 MG/DL (0.60-1.30)
[2017-08-28] MEDS: ISOSORBIDE MONONITRATE 60 MG CR TAB (IMDUR) PO SCH (05:19)
[2017-08-28] MEDS: PANTOPRAZOLE SODIUM 40 MG VIAL IV PUSH SCH ×2 (05:46→17:33)
[2017-08-28] MEDS: RESP: BUDESONIDE 0.5 MG/2 ML NEB NEB SCH ×2 (07:41→19:51)
[2017-08-28] MEDS: LINEZOLID 600 MG TAB PO SCH ×3 (09:00→20:49)
[2017-08-28] MEDS ORDERED: INSULIN DETEMIR 100 UNITS/ML VIAL SQ SCH (09:00)
--- NOTE | 2017-08-28 09:43 | HHI.PR ---
Subjective Remarks The patient's friend was at the bedside. The patient was nonverbal. He did not indicate any discomfort or pain. Discussed with nursing, who has not noticed any obvious GI bleeding except for black stools which have been chronic. Objective Vitals Vital Signs Date Time Temp Pulse Resp B/P (MAP) Pulse Ox O2 Delivery O2 Flow Rate FiO2 08/28/17 06:00 96 08/28/17 04:00 97.7 100 19 121/79 (93) 100 08/28/17 04:00 100 08/28/17 02:00 101 08/28/17 00:00 103 08/28/17 00:00 98.6 103 25 159/81 (107) 100 08/27/17 22:00 101 08/27/17 20:08 100 Nasal Cannula 3.00 08/27/17 20:00 99.0 108 28 146/81 (102) 08/27/17 20:00 108 08/27/17 18:00 84 08/27/17 17:47 109 24 150/83 (105) 08/27/17 17:00 109 34 147/86 (106) 08/27/17 16:42 111 19 139/84 (102) 08/27/17 16:00 84 08/27/17 16:00 98.0 103 18 147/86 (106) 100 08/27/17 16:00 98.6 96 22 154/61 (92) 100 08/27/17 14:00 118 26 149/81 (103) 100 08/27/17 13:30 129 28 99 08/27/17 13:00 104 25 143/85 (104) 100 08/27/17 12:30 100 28 100 08/27/17 12:00 84 08/27/17 12:00 98.8 95 25 154/77 (102) 100 08/27/17 12:00 98.6 96 22 154/61 (92) 100 08/27/17 11:30 96 24 100 08/27/17 11:00 99 22 162/79 (106) 08/27/17 10:30 99 23 08/27/17 10:00 84 08/27/17 10:00 98 25 127/68 (87) 100 I/O 08/27/17 08/27/17 08/27/17 08/28/17 08/28/17 08/28/17 06:59 14:59 22:59 06:59 14:59 22:59 Intake Total 0 ml 232 ml Output Total 1075 ml 850 ml 1150 ml Balance -1075 ml -850 ml -918 ml IV Total 0 ml Tube Feeding 232 ml Output Urine Total 1075 ml 850 ml 850 ml Stool Total 300 ml # Bowel Movements 2 2 Result Diagram: 08/28/17 0350 08/28/17 0350 Imaging Last Impressions Abdomen X-Ray 08/27/17 0000 Signed Impressions: Service Date/Time: Sunday, August 27, 2017 02:09 - CONCLUSION: The Dobbhoff tube was advanced into the proximal stomach. Jacinto Benton MD Chest X-Ray 08/25/17 0600 Signed Impressions: Service Date/Time: Friday, August 25, 2017 04:42 - CONCLUSION: 1. Bilateral mostly basilar airspace disease stable to slightly increased from 18. Endotracheal tube and nasogastric tube in good position. Quentin Griffin MD CT Angiography 08/13/17 0000 Signed Impressions: Service Date/Time: Sunday, August 13, 2017 07:25 - CONCLUSION: 1. No CT evidence for pulmonary embolism as questioned. 2. Moderate to severe upper lobe predominant centrilobular emphysema. 3. Patchy bibasilar groundglass opacities likely reflecting atelectasis although differential considerations include aspiration. 4. Multiple 4-6mm bilateral groundglass and solid nodules, likely infectious/inflammatory. Recommend followup CT examination in approximately 6 months per 2017 Fleischner criteria (6mm nodule). Steve Barajas MD Objective Remarks GEN: No acute distress. HEENT: Pallor present, no icterus, tongue/ mucosa moist. Dobbhoff tube in place. Neck: No JVD Chest/Pulm: Unlabored. CVS: normal rate, regular rhythm. GI/abdomen: soft, nontender, no guarding. Extremities: warm bilaterally, 2+ peripheral edema, bilateral upper extremity edema. Left lower extremity status post BKA. Right foot cool. Neuro: awake. follows commands. Relatively non-verbal. A/P Assessment and Plan Acute on chronic hypoxic and hypercarbic respiratory failure on mechanical ventilation Patient and family goals as of 08/25: aggressive care including tracheostomy if he gets reintubated. Failed extubation 08/16/2017, reintubated approximately after 6-8 hours. Total vent days: 13. CT of the chest showed severe emphysema and pneumonia. Hemoptysis has been reported. Pulmonology consult appreciated. - IV Solu-Medrol changed to prednisone BID. - inhaled budesonide. - standing and as needed nebs. - antibiotics per ID. - pulmonology following. - IS. - PT/ OT. Acute metabolic encephalopathy/ Severe sepsis (Fever leukocytosis hypotension tachycardia) Sputum culture growing Pseudomonas 08/13/17, MRSA 08/22. - continue Levaquin and Zyvox per ID. NSTEMI Was on metoprolol, lisinopril, Lasix and Aldactone per Dr. Gary. Holding Lasix and lisinopril due to increasing BUN, hypotension. EF 50%. - Use metoprolol IV as needed for hypertension, tachycardia. - Holding heparin and Coumadin since 08/19 in view of hemoptysis. Continue Lovenox 40 mg sq daily - Continue aspirin. - consider stress test, however, medical management would be recommended per cardiology. Malnutrition Dobbhoff in place. - Tube feeds with bowel regimen. Hyperkalemia Seems resolved. - resume Lasix and hold Aldactone. DM Exacerbated by steroids. - wean to prednisone. - hold Levemir. Continue sliding scale. Adjust regimen as needed. PVD/ Poor access Central line was placed by IR. Right foot appears cool to the touch. - attempt to Doppler pulse in RLE. If unable will obtain CTA runoff and consult vascular surgery. GIB Has black stools. Hgb decreasing. - GI consult pending. - IV PPI. - follow CBC and transfuse as needed. PPx: Hold chemical anticoagulation in light of bleeding Jacinto Jaimes DO August 28, 2017 09:43
[2017-08-28] MEDS: LEVOFLOXACIN 500 MG TAB PO SCH (09:59)
[2017-08-28] MEDS: predniSONE 20 MG TAB PO SCH ×2 (10:00→20:45)
[2017-08-28] MEDS: FUROSEMIDE 20 MG TAB PO SCH (10:00)
[2017-08-28] MEDS: FAMOTIDINE 20 MG TAB TUBE SCH ×2 (10:00→20:44)
[2017-08-28] MEDS: ASPIRIN 81 MG CHEW TAB CHEW SCH (10:00)
[2017-08-28] MEDS: SODIUM CHLORIDE 0.9% FLUSH 10 ML FLUSH IV FLUSH SCH ×3 (10:00→20:44)
[2017-08-28] MEDS: CHLORHEXIDINE 0.12% (ORAL KIT) 15 ML CUP MT SCH ×2 (10:01→20:00)
--- NOTE | 2017-08-28 12:15 | PD.CONS ---
HPI History of Present Illness This is a 66 year old male who presented with SOB, AMS, and was intubated in the field. On admission he had BP fluctuations, elevated troponins. GI is consulted for GIB. Reportedly pt had black tarry stool. On my evaluation there is liquid water brown stool in [facility] and RN has not noted any rectal bleeding or tarry stool on her shift. Pt indicates that he has been having black tarry stool but is unable to express the timing or duration. Pt is no longer intubated but is nonverbal. He mouths words and nods intermittently so hx is difficult to obtain and limited. (Sarah Jimenez) PFSH Past Medical History Angina Left BKA-2016 PAD with chronic right lower extremity ischemia, DM II COPD JADA Hypertension History of TIAs Previous CA Back pain C6-7 disc herniation with left upper extremity radiculopathy Hypertension CAD status post CABG x 3 Atrial fibrillation Hyperlipidemia Squamous cell carcinoma . 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 Cholecystostomy tube placement CABG Squamous cell carcinoma removal Surgery left hand . (Sarah Jimenez) Coded Allergies: cefaclor (Verified Allergy, Intermediate, rash, 06/28/17) Family History Strong familial history of cancer including gastric cancer and lung cancer. Mother from colon cancer at age 54; father in 1970 from some type of gastric cancer. . Social History smokes 1 ppd (Sarah Jimenez) Review of Systems noncontributory (Sarah Jimenez) GI Exam Vitals I&O Vital Signs Date Time Temp Pulse Resp B/P (MAP) Pulse Ox O2 Delivery O2 Flow Rate FiO2 08/28/17 11:00 113 26 148/102 (117) 99 08/28/17 11:00 113 08/28/17 10:00 112 08/28/17 10:00 112 31 150/82 (104) 100 08/28/17 09:00 112 25 140/72 (94) 99 08/28/17 09:00 112 08/28/17 08:00 98.7 106 29 138/76 (96) 100 08/28/17 08:00 106 08/28/17 07:50 99 Nasal Cannula 4.00 08/28/17 07:00 100 08/28/17 07:00 100 27 124/73 (90) 98 08/28/17 06:00 96 08/28/17 04:00 97.7 100 19 121/79 (93) 100 08/28/17 04:00 100 08/28/17 02:00 101 08/28/17 00:00 103 08/28/17 00:00 98.6 103 25 159/81 (107) 100 08/27/17 22:00 101 08/27/17 20:08 100 Nasal Cannula 3.00 08/27/17 20:00 99.0 108 28 146/81 (102) 08/27/17 20:00 108 08/27/17 18:00 84 08/27/17 17:47 109 24 150/83 (105) 08/27/17 17:00 109 34 147/86 (106) 08/27/17 16:42 111 19 139/84 (102) 08/27/17 16:00 84 08/27/17 16:00 98.0 103 18 147/86 (106) 100 08/27/17 16:00 98.6 96 22 154/61 (92) 100 08/27/17 14:00 118 26 149/81 (103) 100 08/27/17 13:30 129 28 99 08/27/17 13:00 104 25 143/85 (104) 100 08/27/17 12:30 100 28 100 I/O 08/27/17 08/27/17 08/27/17 08/28/17 08/28/17 08/28/17 07:00 15:00 23:00 07:00 15:00 23:00 Intake Total 0 ml 232 ml Output Total 1075 ml 850 ml 1150 ml Balance -1075 ml -850 ml -918 ml IV Total 0 ml Tube Feeding 232 ml Output Urine Total 1075 ml 850 ml 850 ml Stool Total 300 ml # Bowel Movements 2 2 Laboratory Test 08/27/17 16:45 08/28/17 03:50 White Blood Count 27.3 TH/MM3 22.8 TH/MM3 Red Blood Count 2.72 MIL/MM3 2.51 MIL/MM3 Hemoglobin 8.1 GM/DL 7.4 GM/DL Hematocrit 24.9 % 23.3 % Mean Corpuscular Volume 91.8 FL 92.8 FL Mean Corpuscular Hemoglobin 29.9 PG 29.3 PG Mean Corpuscular Hemoglobin Concent 32.5 % 31.5 % Red Cell Distribution Width 17.0 % 17.3 % Platelet Count 168 TH/MM3 156 TH/MM3 Mean Platelet Volume 10.4 FL 10.8 FL Activated Partial Thromboplast Time 18.2 SEC 21.2 SEC Blood Urea Nitrogen 21 MG/DL 21 MG/DL Creatinine 0.39 MG/DL 0.36 MG/DL Random Glucose 143 MG/DL 219 MG/DL Calcium Level 8.7 MG/DL 8.3 MG/DL Sodium Level 140 MEQ/L 139 MEQ/L Potassium Level 4.9 MEQ/L 4.9 MEQ/L Chloride Level 104 MEQ/L 103 MEQ/L Carbon Dioxide Level 26.8 MEQ/L 28.2 MEQ/L Anion Gap 9 MEQ/L 8 MEQ/L Estimat Glomerular Filtration Rate 222 ML/MIN 244 ML/MIN Date/Time Source Procedure Growth Status 08/22/17 09:54 Blood Peripheral Aerobic Blood Culture - Final NO GROWTH IN 5 DAYS Complete 08/22/17 09:54 Blood Peripheral Anaerobic Blood Culture - Final NO GROWTH IN 5 DAYS Complete 08/21/17 19:30 Stool Stool Stool Occult Blood (JABIER) - Final HEMOCCULT POSITIVE Complete 08/22/17 10:50 Sputum Endotracheal Gram Stain - Final Complete 08/22/17 10:50 Sputum Culture - Final S. Aureus Mrsa Complete 08/24/17 04:10 Urine Catheterized Urine Urine Culture - Final NO GROWTH IN 48 HOURS. Complete Physical Examination HEENT: PERRL; normocephalic; atraumatic; no jaundice. CHEST: rhonchi, shallow respirations CARDIAC: tachy ABDOMEN: distended, semifirm, lower quadrant TTP; no hepatosplenomegaly; bowel sounds are present in all four quadrants. EXTREMITIES: left BKA, right foot cool and dusky SKIN: no rash; no jaundice. 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 on my eval there is brown watery stool in bag. - anemia - hgb dropped to 6.4, pt received 1 unit PRBC and HH is trending down. limited hx - NSTEMI, respiratory failure per primary PLAN - EGD +/- colonoscopy if stable - ?cardiac clearance needed? - PPI - monitor labs - transfuse prn - notify GI of active bleeding - further recs to follow pt seen by myself and Dr Benavidez and this note is on his behalf (Sarah Jimenez) Physician Comments Patient seen and examined Agree with above Continue with current supportive care Monitor labs Anemia is multifactorial with the patient having albumin of 1.7 is most likely underlying malnutrition patient presenting with hypernatremia suggesting dehydration and we are now seeing rehydration dilution At this point patient is high risk for endoscopy we will continue to monitor and will await cardiac clearance or guidance from cardiology as to whether to pursue endoscopy or not (Addy Benavidez MD) Sarah Jimenez August 28, 2017 12:15 Addy Benavidez MD August 28, 2017 19:14
--- NOTE | 2017-08-28 16:46 | HHI.PR ---
Subjective Remarks NO DISTRESS ON O2 NC Objective Vital Signs Date Time Temp Pulse Resp B/P (MAP) Pulse Ox O2 Delivery O2 Flow Rate FiO2 08/28/17 13:00 110 08/28/17 13:00 110 29 131/68 (89) 100 08/28/17 12:00 98.0 109 25 137/72 (93) 100 08/28/17 12:00 109 08/28/17 11:00 113 26 148/102 (117) 99 08/28/17 11:00 113 08/28/17 10:00 112 08/28/17 10:00 112 31 150/82 (104) 100 08/28/17 09:00 112 25 140/72 (94) 99 08/28/17 09:00 112 08/28/17 08:00 98.7 106 29 138/76 (96) 100 08/28/17 08:00 106 08/28/17 07:50 99 Nasal Cannula 4.00 08/28/17 07:00 100 08/28/17 07:00 100 27 124/73 (90) 98 08/28/17 06:00 96 08/28/17 04:00 97.7 100 19 121/79 (93) 100 08/28/17 04:00 100 08/28/17 02:00 101 08/28/17 00:00 103 08/28/17 00:00 98.6 103 25 159/81 (107) 100 08/27/17 22:00 101 08/27/17 20:08 100 Nasal Cannula 3.00 08/27/17 20:00 99.0 108 28 146/81 (102) 08/27/17 20:00 108 08/27/17 18:00 84 08/27/17 17:47 109 24 150/83 (105) 08/27/17 17:00 109 34 147/86 (106) I/O 08/27/17 08/27/17 08/27/17 08/28/17 08/28/17 08/28/17 07:00 15:00 23:00 07:00 15:00 23:00 Intake Total 0 ml 232 ml Output Total 1075 ml 850 ml 1150 ml Balance -1075 ml -850 ml -918 ml IV Total 0 ml Tube Feeding 232 ml Output Urine Total 1075 ml 850 ml 850 ml Stool Total 300 ml # Bowel Movements 2 2 Result Diagram: 08/28/17 1248 08/28/17 0350 Medications and IVs GENERAL: SKIN: Warm and dry. HEAD: Atraumatic. Normocephalic. EYES: Pupils equal and round. No scleral icterus. No injection or drainage. ENT: No nasal bleeding or discharge. Mucous membranes pink and moist. NECK: Trachea midline. No JVD. CARDIOVASCULAR: Regular rate and rhythm. RESPIRATORY: No accessory muscle use. Clear to auscultation. Breath sounds equal bilaterally. GASTROINTESTINAL: Abdomen soft, non-tender, nondistended. Hepatic and splenic margins not palpable. MUSCULOSKELETAL: Extremities without clubbing, cyanosis, or edema. No obvious deformities. NEUROLOGICAL: Awake and alert. No obvious cranial nerve deficits. Motor grossly within normal limits. Five out of 5 muscle strength in the arms and legs. Normal speech. PSYCHIATRIC: Appropriate mood and affect; insight and judgment normal. Assessment and Plan Assessment and Plan IMPRESSION RESPIRATORY FAILURE COPD AFIB HTN PVD PLAN O2 NEEDED BRONCHODILATOR THERAPY INCREASE ACTIVITY Goran Zimmer MD August 28, 2017 16:46
[2017-08-28 19:06] LABS: HEMOGLOBIN 7.4 GM/DL (13.0-17.0); MEAN CELL VOLUME 91.8 FL (80.0-100.0); MEAN CORPUSCULAR HEMOGLOBIN 29.4 PG (27.0-34.0); MEAN PLATELET VOLUME 10.1 FL (7.0-11.0); PLATELET COUNT 153 TH/MM3 (150-450); RED BLOOD COUNT 2.51 MIL/MM3 (4.50-5.90); RED CELL DISTRIBUTION WIDTH 16.9 % (11.6-17.2); WHITE BLOOD COUNT 22.5 TH/MM3 (4.0-11.0)
[2017-08-28] MEDS: ATORVASTATIN 40 MG TAB PO SCH (20:45)
[2017-08-29] VITALS (20 sets, daily range): BP systolic 102–132; BP diastolic 60–77; PULSE 100–121; RESP 16–35; TEMP 97.7–99.3; O2SAT 90–100
[2017-08-29] MEDS: INSULIN ASPART SUPPLEMENTAL SCALE SQ SCH ×7 (00:10→23:58)
[2017-08-29] MEDS: RESP: ALBUTEROL 2.5 MG/IPRATROPIUM 0.5 MG NEB (SCH) INH ×3 (03:07→10:44)
[2017-08-29] MEDS: CHLORHEXIDINE GLUCONATE 2 % 1 PACK (2 CLOTHS) TOP SCH (04:00)
[2017-08-29] MEDS: METOPROLOL TARTRATE 50 MG TAB PO SCH ×3 (05:09→22:04)
[2017-08-29] MEDS: ISOSORBIDE MONONITRATE 60 MG CR TAB (IMDUR) PO SCH (05:09)
[2017-08-29] MEDS: PANTOPRAZOLE SODIUM 40 MG VIAL IV PUSH SCH ×2 (05:09→18:27)
[2017-08-29 06:07] LABS: HEMOGLOBIN 7.7 GM/DL (13.0-17.0); MEAN CELL VOLUME 93.2 FL (80.0-100.0); MEAN CORPUSCULAR HEMOGLOBIN 29.8 PG (27.0-34.0); MEAN PLATELET VOLUME 10.2 FL (7.0-11.0); PLATELET COUNT 172 TH/MM3 (150-450); RED BLOOD COUNT 2.57 MIL/MM3 (4.50-5.90); RED CELL DISTRIBUTION WIDTH 17.3 % (11.6-17.2); WHITE BLOOD COUNT 22.7 TH/MM3 (4.0-11.0)
[2017-08-29 06:36] LABS: CALCIUM 8.2 MG/DL (8.5-10.1); CREATININE 0.53 MG/DL (0.60-1.30)
[2017-08-29] MEDS: RESP: BUDESONIDE 0.5 MG/2 ML NEB NEB SCH ×2 (07:20→21:20)
[2017-08-29] MEDS: CHLORHEXIDINE 0.12% (ORAL KIT) 15 ML CUP MT SCH ×2 (08:00→20:00)
[2017-08-29] MEDS: LINEZOLID 600 MG TAB PO SCH ×2 (09:00→20:42)
[2017-08-29] MEDS: predniSONE 20 MG TAB PO SCH ×2 (09:18→20:42)
[2017-08-29] MEDS: FAMOTIDINE 20 MG TAB TUBE SCH ×2 (09:18→20:42)
[2017-08-29] MEDS: FUROSEMIDE 20 MG TAB PO SCH (09:19)
[2017-08-29] MEDS: LEVOFLOXACIN 500 MG TAB PO SCH (09:20)
[2017-08-29] MEDS: SODIUM CHLORIDE 0.9% FLUSH 10 ML FLUSH IV FLUSH SCH ×3 (09:20→20:42)
[2017-08-29] MEDS: ASPIRIN 81 MG CHEW TAB CHEW SCH (09:20)
[2017-08-29] MEDS: METOPROLOL TARTRATE 5 MG/5 ML VIAL IV PUSH PRN (09:37)
--- NOTE | 2017-08-29 10:58 | HHI.PR ---
Subjective Remarks The patient indicated that he wanted to eat and drink something. Otherwise he had no acute complaints. Discussed with nursing at the bedside. Objective Vitals Vital Signs Date Time Temp Pulse Resp B/P (MAP) Pulse Ox O2 Delivery O2 Flow Rate FiO2 08/29/17 07:21 100 Nasal Cannula 3.00 08/29/17 06:00 107 08/29/17 04:00 98.0 111 16 112/65 (81) 100 08/29/17 04:00 111 08/29/17 02:00 110 08/29/17 00:00 97.7 109 16 115/66 (82) 100 08/29/17 00:00 109 08/28/17 22:00 110 08/28/17 20:04 100 Nasal Cannula 3.00 08/28/17 20:00 102 08/28/17 20:00 98.2 102 18 115/65 (82) 100 08/28/17 18:00 94 08/28/17 17:00 91 08/28/17 17:00 91 33 134/68 (90) 100 08/28/17 16:00 93 08/28/17 16:00 99.0 93 24 128/73 (91) 100 08/28/17 15:00 93 08/28/17 15:00 93 30 125/79 (94) 100 08/28/17 14:00 104 08/28/17 14:00 104 29 124/71 (88) 100 08/28/17 13:00 110 08/28/17 13:00 110 29 131/68 (89) 100 08/28/17 12:00 98.0 109 25 137/72 (93) 100 08/28/17 12:00 109 08/28/17 11:00 113 26 148/102 (117) 99 08/28/17 11:00 113 I/O 08/28/17 08/28/17 08/28/17 08/29/17 08/29/17 08/29/17 07:00 15:00 23:00 07:00 15:00 23:00 Intake Total 232 ml 559 ml 425 ml Output Total 1150 ml 1600 ml 1100 ml Balance -918 ml -1041 ml -675 ml Tube Feeding 232 ml 559 ml 425 ml Output Urine Total 850 ml 1400 ml 800 ml Stool Total 300 ml 200 ml 300 ml Result Diagram: 08/29/17 0430 08/29/17 0430 Imaging Last Impressions Abdomen X-Ray 08/27/17 0000 Signed Impressions: Service Date/Time: Sunday, August 27, 2017 02:09 - CONCLUSION: The Dobbhoff tube was advanced into the proximal stomach. Jacinto Benton MD Chest X-Ray 08/25/17 0600 Signed Impressions: Service Date/Time: Friday, August 25, 2017 04:42 - CONCLUSION: 1. Bilateral mostly basilar airspace disease stable to slightly increased from 18. Endotracheal tube and nasogastric tube in good position. Quentin Griffin MD CT Angiography 08/13/17 0000 Signed Impressions: Service Date/Time: Sunday, August 13, 2017 07:25 - CONCLUSION: 1. No CT evidence for pulmonary embolism as questioned. 2. Moderate to severe upper lobe predominant centrilobular emphysema. 3. Patchy bibasilar groundglass opacities likely reflecting atelectasis although differential considerations include aspiration. 4. Multiple 4-6mm bilateral groundglass and solid nodules, likely infectious/inflammatory. Recommend followup CT examination in approximately 6 months per 2017 Fleischner criteria (6mm nodule). Steve Barajas MD Objective Remarks GEN: No acute distress. HEENT: Pallor present, no icterus, tongue/ mucosa moist. Dobbhoff tube in place. Neck: No JVD Chest/Pulm: Unlabored. CVS: normal rate, regular rhythm. GI/abdomen: soft, nontender, no guarding. Extremities: warm bilaterally, 2+ peripheral edema, bilateral upper extremity edema. Left lower extremity status post BKA. Poor pulses on right foot. Neuro: awake. follows commands. Relatively non-verbal. A/P Assessment and Plan Acute on chronic hypoxic and hypercarbic respiratory failure on mechanical ventilation Patient and family goals as of 08/25: aggressive care including tracheostomy if he gets reintubated. Failed extubation 08/16/2017, reintubated approximately after 6-8 hours. Total vent days: 13. CT of the chest showed severe emphysema and pneumonia. Hemoptysis has been reported. Pulmonology consult appreciated. - IV Solu-Medrol changed to prednisone BID. - inhaled budesonide. - standing and as needed nebs. - antibiotics per ID. - pulmonology following. - IS. - PT/ OT/ ST. Acute metabolic encephalopathy/ Severe sepsis (Fever leukocytosis hypotension tachycardia) Sputum culture growing Pseudomonas 08/13/17, MRSA 08/22. - continue Levaquin and Zyvox per ID. NSTEMI Was on metoprolol, lisinopril, Lasix and Aldactone per Dr. Gary. Holding Lasix and lisinopril due to increasing BUN, hypotension. EF 50%. - Use metoprolol IV as needed for hypertension, tachycardia. - Holding heparin and Coumadin since 08/19 in view of hemoptysis. Continue Lovenox 40 mg sq daily - Continue aspirin. - consider stress test, however, medical management would be recommended per cardiology. Malnutrition Dobbhoff in place. - Tube feeds with bowel regimen. - repeat KUB to confirm placement. Hyperkalemia Seems resolved. - resume Lasix and hold Aldactone. DM Exacerbated by steroids. - wean to prednisone. - Levemir 10 units daily. Continue sliding scale. Adjust regimen as needed. GIB Has black stools. Hgb decreasing. GI consult appreciated. - IV PPI. - follow CBC and transfuse as needed. - EGD once cleared by cardiology. PPx: Hold chemical anticoagulation in light of bleeding Discharge Planning Transfer to the floor. Jacinto Jaimes DO August 29, 2017 10:58
[2017-08-29] MEDS: INSULIN DETEMIR 100 UNITS/ML VIAL SQ SCH (12:02)
--- NOTE | 2017-08-29 12:12 | RADRPT ---
EXAM DATE: 08/29/2017 11:53 AM EDT AGE/SEX: 66 years / Male INDICATIONS: Dubhoff placement CLINICAL DATA: This is the patient's subsequent encounter. Patient reports that signs and symptoms h ave been present for 1 month and indicates a pain score of Nonresponsive. MEDICAL/SURGICAL HISTORY: None. None. COMPARISON: No prior exams available for comparison. FINDINGS: The abdominal bowel gas pattern is nonspecific. There is a Dobbhoff feeding tube in the proximal sto mach. The lung bases are grossly clear. There are degenerative type changes involving the bony struct ures. CONCLUSION: Dobbhoff feeding tube is seen in the proximal stomach. Electronically signed by: Edgar Sierra MD 08/29/2017 12:10 PM EDT
--- NOTE | 2017-08-29 13:43 | HHI.GIFU ---
Subjective Remarks Patient remains on contact isolation Current hemoglobin 7.7 N.p.o. per speech therapy Tolerating Dobbhoff with tube feedings Glucerna 1.5 at 45 cc an hour Patient's resting in the bed, heart rate tachycardic (Tara Bertrand) Objective Vitals I&O Vital Signs Date Time Temp Pulse Resp B/P (MAP) Pulse Ox O2 Delivery O2 Flow Rate FiO2 08/29/17 07:21 100 Nasal Cannula 3.00 08/29/17 06:00 107 08/29/17 04:00 98.0 111 16 112/65 (81) 100 08/29/17 04:00 111 08/29/17 02:00 110 08/29/17 00:00 97.7 109 16 115/66 (82) 100 08/29/17 00:00 109 08/28/17 22:00 110 08/28/17 20:04 100 Nasal Cannula 3.00 08/28/17 20:00 102 08/28/17 20:00 98.2 102 18 115/65 (82) 100 08/28/17 18:00 94 08/28/17 17:00 91 08/28/17 17:00 91 33 134/68 (90) 100 08/28/17 16:00 93 08/28/17 16:00 99.0 93 24 128/73 (91) 100 08/28/17 15:00 93 08/28/17 15:00 93 30 125/79 (94) 100 08/28/17 14:00 104 08/28/17 14:00 104 29 124/71 (88) 100 I/O 08/28/17 08/28/17 08/28/17 08/29/17 08/29/17 08/29/17 07:00 15:00 23:00 07:00 15:00 23:00 Intake Total 232 ml 559 ml 425 ml Output Total 1150 ml 1600 ml 1100 ml Balance -918 ml -1041 ml -675 ml Tube Feeding 232 ml 559 ml 425 ml Output Urine Total 850 ml 1400 ml 800 ml Stool Total 300 ml 200 ml 300 ml Laboratory Laboratory Tests Test 08/28/17 18:35 08/29/17 04:30 White Blood Count 22.5 22.7 Red Blood Count 2.51 2.57 Hemoglobin 7.4 7.7 Hematocrit 23.0 24.0 Mean Corpuscular Volume 91.8 93.2 Mean Corpuscular Hemoglobin 29.4 29.8 Mean Corpuscular Hemoglobin Concent 32.0 32.0 Red Cell Distribution Width 16.9 17.3 Platelet Count 153 172 Mean Platelet Volume 10.1 10.2 Activated Partial Thromboplast Time 19.4 Blood Urea Nitrogen 22 Creatinine 0.53 Random Glucose 252 Calcium Level 8.2 Sodium Level 139 Potassium Level 4.8 Chloride Level 102 Carbon Dioxide Level 32.0 Anion Gap 5 Estimat Glomerular Filtration Rate 156 Date/Time Source Procedure Growth Status 08/22/17 09:54 Blood Peripheral Aerobic Blood Culture - Final NO GROWTH IN 5 DAYS Complete 08/22/17 09:54 Blood Peripheral Anaerobic Blood Culture - Final NO GROWTH IN 5 DAYS Complete 08/21/17 19:30 Stool Stool Stool Occult Blood (JABIER) - Final HEMOCCULT POSITIVE Complete 08/22/17 10:50 Sputum Endotracheal Gram Stain - Final Complete 08/22/17 10:50 Sputum Culture - Final S. Aureus Mrsa Complete 08/24/17 04:10 Urine Catheterized Urine Urine Culture - Final NO GROWTH IN 48 HOURS. Complete Imaging Last Impressions Abdomen X-Ray 08/29/17 0000 Signed Impressions: CONCLUSION: Dobbhoff feeding tube is seen in the proximal stomach. Chest X-Ray 08/25/17 0600 Signed Impressions: Service Date/Time: Friday, August 25, 2017 04:42 - CONCLUSION: 1. Bilateral mostly basilar airspace disease stable to slightly increased from 18. Endotracheal tube and nasogastric tube in good position. Quentin Griffin MD CT Angiography 08/13/17 0000 Signed Impressions: Service Date/Time: Sunday, August 13, 2017 07:25 - CONCLUSION: 1. No CT evidence for pulmonary embolism as questioned. 2. Moderate to severe upper lobe predominant centrilobular emphysema. 3. Patchy bibasilar groundglass opacities likely reflecting atelectasis although differential considerations include aspiration. 4. Multiple 4-6mm bilateral groundglass and solid nodules, likely infectious/inflammatory. Recommend followup CT examination in approximately 6 months per 2017 Fleischner criteria (6mm nodule). Steve Barajas MD Physical Exam HEENT: normocephalic; atraumatic; mild generalized , Dobbhoff feeding tube and NECK: Neck supple CHEST: Diminished breath sounds with some mild rhonchi noted CARDIAC: Tachycardic rhythm ABDOMEN: Round, soft, soft bowel sounds, no obvious tenderness, dark bilious diarrhea via rectal Lopez EXTREMITIES: Generalized extremity edema. 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 on my eval there is brown watery stool in bag. - anemia - hgb dropped to 6.4, pt received 1 unit PRBC and HH is trending down. limited hx - NSTEMI, respiratory failure per primary 08/29/2017 current hemoglobin is 7.7 and seems to be staying in this range. Continues with dark bilious stools via rectal Lopez, rhythm continues to be tachycardic, patient will need EGD when stable and after cardiac clearance. , N.p.o. per speech therapist, Dobbhoff in correct position PLAN - Diet n.p.o. with tube feedings at 45 cc an hour Glucerna 1.5 - EGD +/- colonoscopy if stable - ?cardiac clearance needed? - PPI - monitor labs with special attention to hemoglobin - transfuse as needed, notify if any obvious bleeding -Supportive care -Antiemetics - further recs to follow pt seen by myself and Dr Benavidez and this note is on his behalf (Tara Bertrand) Physician Comments Patient seen and examined Agree with above Continue with current supportive care Monitor labs Patient with no active GI bleed Patient high risk for endoscopy at this point Not much to add from a GI perspective therefore we will sign off at this point Please reconsult as needed (Addy Benavidez MD) Tara Bertrand August 29, 2017 13:43 Addy Benavidez MD August 29, 2017 20:40
--- NOTE | 2017-08-29 16:37 | HHI.PR ---
Subjective Remarks NO DISTRESS ON O2 NC Objective Vital Signs Date Time Temp Pulse Resp B/P (MAP) Pulse Ox O2 Delivery O2 Flow Rate FiO2 08/29/17 16:00 98.3 100 35 116/63 (80) 99 08/29/17 15:00 121 28 128/74 (92) 93 08/29/17 14:00 116 28 126/63 (84) 90 08/29/17 13:00 112 27 115/66 (82) 96 08/29/17 12:00 99.3 116 24 106/60 (75) 96 08/29/17 11:00 116 30 119/68 (85) 99 08/29/17 10:00 106 30 123/60 (81) 99 08/29/17 09:00 117 17 132/69 (90) 96 08/29/17 08:00 99.0 115 31 128/63 (84) 97 08/29/17 07:21 100 Nasal Cannula 3.00 08/29/17 06:00 107 08/29/17 04:00 98.0 111 16 112/65 (81) 100 08/29/17 04:00 111 08/29/17 02:00 110 08/29/17 00:00 97.7 109 16 115/66 (82) 100 08/29/17 00:00 109 08/28/17 22:00 110 08/28/17 20:04 100 Nasal Cannula 3.00 08/28/17 20:00 102 08/28/17 20:00 98.2 102 18 115/65 (82) 100 08/28/17 18:00 94 08/28/17 17:00 91 08/28/17 17:00 91 33 134/68 (90) 100 I/O 08/28/17 08/28/17 08/28/17 08/29/17 08/29/17 08/29/17 07:00 15:00 23:00 07:00 15:00 23:00 Intake Total 232 ml 559 ml 425 ml Output Total 1150 ml 1600 ml 1100 ml Balance -918 ml -1041 ml -675 ml Tube Feeding 232 ml 559 ml 425 ml Output Urine Total 850 ml 1400 ml 800 ml Stool Total 300 ml 200 ml 300 ml Result Diagram: 08/29/17 04308/29/17 043 Objective Remarks GENERAL: SKIN: Warm and dry. HEAD: Atraumatic. Normocephalic. EYES: Pupils equal and round. No scleral icterus. No injection or drainage. ENT: No nasal bleeding or discharge. Mucous membranes pink and moist. NECK: Trachea midline. No JVD. CARDIOVASCULAR: Regular rate and rhythm. RESPIRATORY: No accessory muscle use. Clear to auscultation. Breath sounds equal bilaterally. GASTROINTESTINAL: Abdomen soft, non-tender, nondistended. Hepatic and splenic margins not palpable. MUSCULOSKELETAL: Extremities without clubbing, cyanosis, or edema. No obvious deformities. NEUROLOGICAL: Awake and alert. No obvious cranial nerve deficits. Motor grossly within normal limits. Five out of 5 muscle strength in the arms and legs. Normal speech. PSYCHIATRIC: Appropriate mood and affect; insight and judgment normal. Assessment and Plan Assessment and Plan IMPRESSION RESPIRATORY FAILURE COPD AFIB HTN PVD PLAN O2 NEEDED BRONCHODILATOR THERAPY INCREASE ACTIVITY Goran Zimmer MD August 29, 2017 16:37
--- NOTE | 2017-08-29 17:38 | RADRPT ---
EXAM DATE: 08/29/2017 5:32 PM EDT AGE/SEX: 66 years / Male INDICATIONS: Pneumonia CLINICAL DATA: This is the patient's subsequent encounter. Patient reports that signs and symptoms h ave been present for 4 - 6 days and indicates a pain score of Nonresponsive. MEDICAL/SURGICAL HISTORY: Cardiovascular disease. CABG. COMPARISON: C, CHEST SINGLE AP, 08/25/2017. . FINDINGS: Patient has been extubated and NG tube removed. There is a feeding-type nasoenteric catheter with tip in the fundus of the stomach. There is a right IJ central line with tip in the cavoatrial junction. Lung bases are significantly better aerated.. Cardiomediastinal contours are within normal limits. Re mainder of exam is unchanged. CONCLUSION: 1. Right IJ central line in good position. Nasoenteric feeding type catheter in the fundus of the st omach. 2. Marked improved aeration of the lung bases. Electronically signed by: Steve Barajas MD 08/29/2017 5:37 PM EDT
[2017-08-29] MEDS: ATORVASTATIN 40 MG TAB PO SCH (20:42)
[2017-08-29] MEDS: RESP: ALBUTEROL 2.5 MG/IPRATROPIUM 0.5 MG NEB (PRN) NEB (21:20)
[2017-08-30] VITALS (11 sets, daily range): BP systolic 118–137; BP diastolic 68–85; PULSE 95–110; RESP 23–35; TEMP 97.8–98.6; O2SAT 96–100
[2017-08-30] MEDS: CHLORHEXIDINE GLUCONATE 2 % 1 PACK (2 CLOTHS) TOP SCH (03:54)
[2017-08-30] MEDS: INSULIN ASPART SUPPLEMENTAL SCALE SQ SCH ×5 (03:54→21:04)
[2017-08-30] MEDS: PANTOPRAZOLE SODIUM 40 MG VIAL IV PUSH SCH ×2 (05:28→17:00)
[2017-08-30] MEDS: METOPROLOL TARTRATE 50 MG TAB PO SCH ×3 (05:28→21:04)
[2017-08-30] MEDS: ISOSORBIDE MONONITRATE 60 MG CR TAB (IMDUR) PO SCH (06:18)
[2017-08-30 06:41] LABS: HEMOGLOBIN 7.6 GM/DL (13.0-17.0); MEAN CELL VOLUME 93.8 FL (80.0-100.0); MEAN CORPUSCULAR HEMOGLOBIN 29.5 PG (27.0-34.0); MEAN CORPUSCULAR HGB CONC 31.5 % (32.0-36.0); MEAN PLATELET VOLUME 10.4 FL (7.0-11.0); PLATELET COUNT 159 TH/MM3 (150-450); RED BLOOD COUNT 2.56 MIL/MM3 (4.50-5.90); RED CELL DISTRIBUTION WIDTH 17.7 % (11.6-17.2); WHITE BLOOD COUNT 20.5 TH/MM3 (4.0-11.0)
[2017-08-30 07:22] LABS: BICARBONATE 32.4 MEQ/L (21.0-32.0); CALCIUM 7.7 MG/DL (8.5-10.1); CREATININE 0.5 MG/DL (0.60-1.30)
[2017-08-30] MEDS: CHLORHEXIDINE 0.12% (ORAL KIT) 15 ML CUP MT SCH ×2 (08:00→20:00)
[2017-08-30] MEDS: predniSONE 20 MG TAB PO SCH ×2 (08:03→21:05)
[2017-08-30] MEDS: ACETAMINOPHEN 325 MG TAB PO PRN (08:03)
[2017-08-30] MEDS: LEVOFLOXACIN 500 MG TAB PO SCH (08:04)
[2017-08-30] MEDS: LINEZOLID 600 MG TAB PO SCH ×2 (08:04→21:05)
[2017-08-30] MEDS: FUROSEMIDE 20 MG TAB PO SCH (08:04)
[2017-08-30] MEDS: ASPIRIN 81 MG CHEW TAB CHEW SCH (08:04)
[2017-08-30] MEDS: FAMOTIDINE 20 MG TAB TUBE SCH ×2 (08:04→21:05)
[2017-08-30] MEDS: INSULIN DETEMIR 100 UNITS/ML VIAL SQ SCH (08:04)
[2017-08-30] MEDS: SODIUM CHLORIDE 0.9% FLUSH 10 ML FLUSH IV FLUSH SCH ×3 (08:05→21:05)
[2017-08-30] MEDS: RESP: ALBUTEROL 2.5 MG/IPRATROPIUM 0.5 MG NEB (PRN) NEB ×4 (08:44→20:42)
[2017-08-30] MEDS ORDERED: INSULIN DETEMIR 100 UNITS/ML VIAL SQ SCH (09:15)
--- NOTE | 2017-08-30 09:27 | HHI.PR ---
Subjective Remarks The pt was lying in bed and following commands. He did not seem to have any acute complaints. Discussed with nursing, who states the pt has been having a lot of secretions. Objective Vitals Vital Signs Date Time Temp Pulse Resp B/P (MAP) Pulse Ox O2 Delivery O2 Flow Rate FiO2 08/30/17 04:00 102 08/30/17 04:00 98.4 102 24 123/75 (91) 96 08/30/17 00:00 98 08/30/17 00:00 98.6 98 23 122/68 (86) 96 08/29/17 23:00 101 20 128/70 (89) 97 08/29/17 22:00 114 08/29/17 22:00 114 32 122/77 (92) 99 08/29/17 21:24 97 Nasal Cannula 2.00 08/29/17 21:00 105 27 111/70 (84) 97 08/29/17 20:00 98.5 105 16 107/69 (82) 97 08/29/17 20:00 105 08/29/17 19:00 103 20 102/61 (75) 99 08/29/17 16:00 98.3 100 35 116/63 (80) 99 08/29/17 15:00 121 28 128/74 (92) 93 08/29/17 14:00 116 28 126/63 (84) 90 08/29/17 13:00 112 27 115/66 (82) 96 08/29/17 12:00 99.3 116 24 106/60 (75) 96 08/29/17 11:00 116 30 119/68 (85) 99 08/29/17 10:00 106 30 123/60 (81) 99 I/O 08/29/17 08/29/17 08/29/17 08/30/17 08/30/17 08/30/17 07:00 15:00 23:00 07:00 15:00 23:00 Intake Total 425 ml 700 ml 691 ml Output Total 1100 ml 1000 ml 1100 ml Balance -675 ml -300 ml -409 ml Tube Feeding 425 ml 600 ml 571 ml Tube Irrigant 100 ml Other 120 ml Output Urine Total 800 ml 700 ml 700 ml Stool Total 300 ml 300 ml 400 ml Result Diagram: 08/30/17 0340 08/30/17 0340 Imaging Last Impressions Chest X-Ray 08/29/17 0000 Signed Impressions: CONCLUSION: 1. Right IJ central line in good position. Nasoenteric feeding type catheter i n the fundus of the stomach. 2. Marked improved aeration of the lung bases. Abdomen X-Ray 08/29/17 0000 Signed Impressions: CONCLUSION: Dobbhoff feeding tube is seen in the proximal stomach. CT Angiography 08/13/17 0000 Signed Impressions: Service Date/Time: Sunday, August 13, 2017 07:25 - CONCLUSION: 1. No CT evidence for pulmonary embolism as questioned. 2. Moderate to severe upper lobe predominant centrilobular emphysema. 3. Patchy bibasilar groundglass opacities likely reflecting atelectasis although differential considerations include aspiration. 4. Multiple 4-6mm bilateral groundglass and solid nodules, likely infectious/inflammatory. Recommend followup CT examination in approximately 6 months per 2017 Fleischner criteria (6mm nodule). Steve Barajas MD Objective Remarks GEN: No acute distress. HEENT: Pallor present, no icterus, tongue/ mucosa moist. Dobbhoff tube in place. Neck: No JVD Chest/Pulm: Unlabored. CVS: normal rate, regular rhythm. GI/abdomen: soft, nontender, no guarding. Extremities: warm bilaterally, 2+ peripheral edema, bilateral upper extremity edema. Left lower extremity status post BKA. Poor pulses on right foot. Neuro: awake. follows commands. Relatively non-verbal. A/P Assessment and Plan Acute on chronic hypoxic and hypercarbic respiratory failure on mechanical ventilation Patient and family goals as of 08/25: aggressive care including tracheostomy if he gets reintubated. Failed extubation 08/16/2017, reintubated approximately after 6-8 hours. Total vent days: 13. CT of the chest showed severe emphysema and pneumonia. Hemoptysis has been reported. Pulmonology consult appreciated. - IV Solu-Medrol changed to prednisone BID. - inhaled budesonide. - standing and as needed nebs. - antibiotics per ID. - pulmonology following. - IS. - PT/ OT/ ST. Acute metabolic encephalopathy/ Severe sepsis (Fever leukocytosis hypotension tachycardia) Sputum culture growing Pseudomonas 08/13/17, MRSA 08/22. - continue Levaquin and Zyvox per ID. NSTEMI Was on metoprolol, lisinopril, Lasix and Aldactone per Dr. Gary. Holding Lasix and lisinopril due to increasing BUN, hypotension. EF 50%. - Use metoprolol IV as needed for hypertension, tachycardia. - Holding heparin and Coumadin since 08/19 in view of hemoptysis and ? GIB. Continue Lovenox 40 mg sq daily - Continue aspirin. - consider stress test, however, medical management would be recommended per cardiology. Malnutrition Dobbhoff in place. - Tube feeds with bowel regimen. - continue working with speech therapy. Hyperkalemia Seems resolved. - resume Lasix and hold Aldactone. DM Exacerbated by steroids. - wean to prednisone. - Levemir 15 units daily. Continue sliding scale. Adjust regimen as needed. GIB Has black stools. Hgb decreasing. GI consult appreciated. - IV PPI. - follow CBC and transfuse as needed. - consider EGD. PPx: Lovenox Discharge Planning Transfer to the floor. Jacinto Jaimes DO August 30, 2017 09:27
[2017-08-30] MEDS ORDERED: HYOSCYAMINE SOLN 0.125 MG/ML 15 ML BTL PO PRN (09:30)
[2017-08-30] MEDS: ENOXAPARIN SODIUM 40 MG/0.4 ML SYRINGE SQ SCH (10:42)
--- NOTE | 2017-08-30 13:00 | HHI.PR ---
Addendum to Inpatient Note Addendum Reason: Additional Documentation Additional Information Chart review documentation WBC normal No fever Clinically seems to be doing ok. Antibiotics stopped 08/29/17. Observe off antibiotics. Will sign off please call back if any change in clinical condition or questions. Sofia Crawford MD August 30, 2017 13:00
--- NOTE | 2017-08-30 15:43 | HHI.PR ---
Subjective Remarks NO DISTRESS ON O2 NC Objective Vital Signs Date Time Temp Pulse Resp B/P (MAP) Pulse Ox O2 Delivery O2 Flow Rate FiO2 08/30/17 14:00 110 35 132/81 (98) 98 08/30/17 13:00 109 30 137/85 (102) 96 08/30/17 12:00 98.3 106 30 126/72 (90) 97 08/30/17 11:00 101 33 137/73 (94) 100 08/30/17 10:00 101 28 125/74 (91) 98 08/30/17 09:00 99 30 118/74 (89) 99 08/30/17 08:00 97.8 95 26 119/78 (92) 98 08/30/17 04:00 102 08/30/17 04:00 98.4 102 24 123/75 (91) 96 08/30/17 00:00 98 08/30/17 00:00 98.6 98 23 122/68 (86) 96 08/29/17 23:00 101 20 128/70 (89) 97 08/29/17 22:00 114 08/29/17 22:00 114 32 122/77 (92) 99 08/29/17 21:24 97 Nasal Cannula 2.00 08/29/17 21:00 105 27 111/70 (84) 97 08/29/17 20:00 98.5 105 16 107/69 (82) 97 08/29/17 20:00 105 08/29/17 19:00 103 20 102/61 (75) 99 08/29/17 16:00 98.3 100 35 116/63 (80) 99 I/O 08/29/17 08/29/17 08/29/17 08/30/17 08/30/17 08/30/17 07:00 15:00 23:00 07:00 15:00 23:00 Intake Total 425 ml 700 ml 691 ml Output Total 1100 ml 1000 ml 1100 ml Balance -675 ml -300 ml -409 ml Tube Feeding 425 ml 600 ml 571 ml Tube Irrigant 100 ml Other 120 ml Output Urine Total 800 ml 700 ml 700 ml Stool Total 300 ml 300 ml 400 ml Result Diagram: 08/30/17 0340 08/30/17 0340 Objective Remarks GENERAL: SKIN: Warm and dry. HEAD: Atraumatic. Normocephalic. EYES: Pupils equal and round. No scleral icterus. No injection or drainage. ENT: No nasal bleeding or discharge. Mucous membranes pink and moist. NECK: Trachea midline. No JVD. CARDIOVASCULAR: Regular rate and rhythm. RESPIRATORY: No accessory muscle use. Clear to auscultation. Breath sounds equal bilaterally. GASTROINTESTINAL: Abdomen soft, non-tender, nondistended. Hepatic and splenic margins not palpable. MUSCULOSKELETAL: Extremities without clubbing, cyanosis, or edema. No obvious deformities. NEUROLOGICAL: Awake and alert. No obvious cranial nerve deficits. Motor grossly within normal limits. Five out of 5 muscle strength in the arms and legs. Normal speech. PSYCHIATRIC: Appropriate mood and affect; insight and judgment normal. Assessment and Plan Assessment and Plan IMPRESSION RESPIRATORY FAILURE COPD AFIB HTN PVD CAD PLAN O2 NEEDED BRONCHODILATOR THERAPY INCREASE ACTIVITY Goran Zimmer MD August 30, 2017 15:43
--- NOTE | 2017-08-30 17:36 | HHI.HCPN ---
Reason for visit a. To assist with evaluation and management of symptoms including: dyspnea, pain b. To assist medical decision maker(s) with: better understanding of current medical conditions; weighing benefits/burdens of medical treatment options; making medical treatment decisions. . Subjective/Interval History Mr. Salcedo is a 66 admitted with hypoxic respiratory failure. Follow-up visit for symptom management of pain and dyspnea as well as clarification of medical treatment goals. Patient seen and assessed in [facility] [place], room 503 No family at bedside. Patient was extubated 08/25/17. Currently tolerating 2L via nasal cannula, oxygen saturation in the high 90s. Coarse air exchange with increased secretions. Respirations 24-35. Follow-up chest x-ray 08/29/17 showing marked improved aeration of the lung bases. Afebrile. WBC: 20.5, hemoglobin 7.6, hematocrit 24.0, platelets 159. Repeat sputum culture from 08/22/2017 + MRSA; blood cultures and urine cultures remain negative today. On levofloxacin 500 mg daily. Patient follows simple 1 step commands; he does not respond verbally to questions. Order to transfer to the floor is in place. . Advance Directives Living Will: Copy in medical record Advance Directive Specifics Documented care wishes: Living will appears to be completed on April 19, 2014. Document can be viewed in patient's EMR. . Objective Vital Signs Date Time Temp Pulse Resp B/P (MAP) Pulse Ox O2 Delivery O2 Flow Rate FiO2 08/30/17 14:00 110 35 132/81 (98) 98 08/30/17 13:00 109 30 137/85 (102) 96 08/30/17 12:00 98.3 106 30 126/72 (90) 97 08/30/17 11:00 101 33 137/73 (94) 100 08/30/17 10:00 101 28 125/74 (91) 98 08/30/17 09:00 99 30 118/74 (89) 99 08/30/17 08:00 97.8 95 26 119/78 (92) 98 08/30/17 04:00 102 08/30/17 04:00 98.4 102 24 123/75 (91) 96 08/30/17 00:00 98 08/30/17 00:00 98.6 98 23 122/68 (86) 96 08/29/17 23:00 101 20 128/70 (89) 97 08/29/17 22:00 114 08/29/17 22:00 114 32 122/77 (92) 99 08/29/17 21:24 97 Nasal Cannula 2.00 08/29/17 21:00 105 27 111/70 (84) 97 08/29/17 20:00 98.5 105 16 107/69 (82) 97 08/29/17 20:00 105 08/29/17 19:00 103 20 102/61 (75) 99 Intake & Output 08/30/17 08/30/17 06:59 18:59 Intake Total 691 ml Output Total 1100 ml Balance -409 ml Tube Feeding 571 ml Other 120 ml Output Urine Total 700 ml Stool Total 400 ml . Physical Exam CONSTITUTIONAL/GENERAL: This is an adequately nourished, male patient in no acute distress TUBES/LINES/DRAINS: CVL, dobbhoff, nasal cannula SKIN: Ecchymoses and abrasions on upper extremities. No wounds seen anteriorly. Skin temperature appropriate. Not diaphoretic. HEAD: Atraumatic. Normocephalic. EYES: Pupils equal and round and reactive. Extraocular motions intact. No scleral icterus. No injection or drainage. Fundi not examined. ENT: Hearing grossly normal. Nose without bleeding or purulent drainage. Oral mucosa moist, pink NECK: Trachea midline. Supple, nontender. No palpable thyroid enlargement or nodularity. CARDIOVASCULAR: Regular rate and rhythm without murmurs, gallops, or rubs. No JVD. Peripheral pulses symmetric. RESPIRATORY/CHEST: Tachypneic. Coarse air exchange. GASTROINTESTINAL: Abdomen soft, non-tender, nondistended. No hepato-splenomegaly , or palpable masses. No guarding. Bowel sounds present. GENITOURINARY: Without palpable bladder distension. Urine output QS MUSCULOSKELETAL: Extremities without clubbing or cyanosis. Left BKA. Hands swollen bilaterally; right foot cool to touch.. LYMPHATICS: No palpable cervical or supraclavicular adenopathy. NEUROLOGICAL: Awake. Ffollows simple one-step commands. PSYCHIATRIC: No obvious anxiety/depression. No apparent hallucinations or other psychotic thought process. . Diagnostic Tests Laboratory Laboratory Tests Test 08/28/17 03:50 08/28/17 12:48 08/28/17 18:35 08/29/17 04:30 White Blood Count 22.8 TH/MM3 (4.0-11.0) 22.5 TH/MM3 (4.0-11.0) 22.7 TH/MM3 (4.0-11.0) Red Blood Count 2.51 MIL/MM3 (4.50-5.90) 2.51 MIL/MM3 (4.50-5.90) 2.57 MIL/MM3 (4.50-5.90) Hemoglobin 7.4 GM/DL (13.0-17.0) 7.6 GM/DL (13.0-17.0) 7.4 GM/DL (13.0-17.0) 7.7 GM/DL (13.0-17.0) Hematocrit 23.3 % (39.0-51.0) 23.0 % (39.0-51.0) 24.0 % (39.0-51.0) Mean Corpuscular Volume 92.8 FL (80.0-100.0) 91.8 FL (80.0-100.0) 93.2 FL (80.0-100.0) Mean Corpuscular Hemoglobin 29.3 PG (27.0-34.0) 29.4 PG (27.0-34.0) 29.8 PG (27.0-34.0) Mean Corpuscular Hemoglobin Concent 31.5 % (32.0-36.0) 32.0 % (32.0-36.0) 32.0 % (32.0-36.0) Red Cell Distribution Width 17.3 % (11.6-17.2) 16.9 % (11.6-17.2) 17.3 % (11.6-17.2) Platelet Count 156 TH/MM3 (150-450) 153 TH/MM3 (150-450) 172 TH/MM3 (150-450) Mean Platelet Volume 10.8 FL (7.0-11.0) 10.1 FL (7.0-11.0) 10.2 FL (7.0-11.0) Activated Partial Thromboplast Time 21.2 SEC (24.3-30.1) 19.4 SEC (24.3-30.1) Blood Urea Nitrogen 21 MG/DL (7-18) 22 MG/DL (7-18) Creatinine 0.36 MG/DL (0.60-1.30) 0.53 MG/DL (0.60-1.30) Random Glucose 219 MG/DL (74-106) 252 MG/DL (74-106) Calcium Level 8.3 MG/DL (8.5-10.1) 8.2 MG/DL (8.5-10.1) Sodium Level 139 MEQ/L (136-145) 139 MEQ/L (136-145) Potassium Level 4.9 MEQ/L (3.5-5.1) 4.8 MEQ/L (3.5-5.1) Chloride Level 103 MEQ/L (98-107) 102 MEQ/L (98-107) Carbon Dioxide Level 28.2 MEQ/L (21.0-32.0) 32.0 MEQ/L (21.0-32.0) Anion Gap 8 MEQ/L (5-15) 5 MEQ/L (5-15) Estimat Glomerular Filtration Rate 244 ML/MIN (>89) 156 ML/MIN (>89) Test 08/30/17 03:40 White Blood Count 20.5 TH/MM3 (4.0-11.0) Red Blood Count 2.56 MIL/MM3 (4.50-5.90) Hemoglobin 7.6 GM/DL (13.0-17.0) Hematocrit 24.0 % (39.0-51.0) Mean Corpuscular Volume 93.8 FL (80.0-100.0) Mean Corpuscular Hemoglobin 29.5 PG (27.0-34.0) Mean Corpuscular Hemoglobin Concent 31.5 % (32.0-36.0) Red Cell Distribution Width 17.7 % (11.6-17.2) Platelet Count 159 TH/MM3 (150-450) Mean Platelet Volume 10.4 FL (7.0-11.0) Activated Partial Thromboplast Time 19.9 SEC (24.3-30.1) Blood Urea Nitrogen 21 MG/DL (7-18) Creatinine 0.50 MG/DL (0.60-1.30) Random Glucose 252 MG/DL (74-106) Calcium Level 7.7 MG/DL (8.5-10.1) Sodium Level 142 MEQ/L (136-145) Potassium Level 4.7 MEQ/L (3.5-5.1) Chloride Level 102 MEQ/L (98-107) Carbon Dioxide Level 32.4 MEQ/L (21.0-32.0) Anion Gap 8 MEQ/L (5-15) Estimat Glomerular Filtration Rate 167 ML/MIN (>89) Result Diagram: 08/30/17 0340 08/30/17 0340 Imaging Last 72 hours Impressions Chest X-Ray 08/29/17 0000 Signed Impressions: CONCLUSION: 1. Right IJ central line in good position. Nasoenteric feeding type catheter i n the fundus of the stomach. 2. Marked improved aeration of the lung bases. Abdomen X-Ray 08/29/17 0000 Signed Impressions: CONCLUSION: Dobbhoff feeding tube is seen in the proximal stomach. Procedures 08/16/2017: Intubation/reintubation 08/25/2017: Extubation . Assessment and Plan Disease Oriented Problem List: (1) Peripheral vascular disease (2) Pseudomonas pneumonia (3) COPD exacerbation (4) Cardiomyopathy (5) DM type 2 (diabetes mellitus, type 2) (6) CAD (coronary artery disease) (7) COPD (chronic obstructive pulmonary disease) (8) Hyperlipidemia (9) Paroxysmal atrial fibrillation Symptom Scale: (1) Dyspnea 0-10 Scale: Unable to quantify (2) Pain 0-10 Scale: Unable to quantify Pertinent Non-Medical Issues Psychosocial: Patient is originally from [place]. Patient has been for many years. He has 1 adult daughter (Poly) and 2 grand-children. Grandson ( Tristin) and Granddaughter (Deo). Granddaughter (Doe) identifies as male and is to [facility]. Patient's highest education level is eighth grade. 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 Spiritual: Sabianism shelbi Legal: Per [place] statutes, in the absence of written advanced directives health care proxy decision making falls to the patient's daughter (Poly). Ethical issues impacting care: No known ethical issues impacting care at this time. . Important Contacts Poly Salcedo, daughter: [phone] Tristin Salcedo, grandson: [phone] Deo Salcedo, granddaughter - identifies as male : [phone] ( to [facility]) Juan Carlos Salcedo, brother: [phone] . Prognosis Patient is a 66 yo male with significant lung disease resulting in 4 hospitalizations in the past 6 months. He is currently vent dependent and unable to tolerate CPAP trails; given his advanced lung disease it will be difficult to wean him off the ventilator without a tracheostomy. Given patient' s complex medical history, he will be high risk for ongoing complications and decline. . Code Status: Full Code Plan * FULL CODE * Decision-making: Patient does NOT have insight or judgment concerning his medical conditions at this time. Per [place] statutes, in the absence of written advanced directives health care proxy decision making falls to the patient's daughter (Poly). * AGGRESSIVE GOALS * Discussed current medical treatment goals with RN (Negrita) and machine ii coremaker. * Symptom management: == Dyspnea: Patient admitted with severe dyspnea s/p being intubated in the field. CTA at admission showed no evidence for pulmonary embolism; moderate to severe upper lobe predominant central lobular emphysema; patchy bibasilar ground-glass opacities likely reflecting atelectasis although differential considerations include aspiration; multiple 4-6mm bilateral ground-glass and solid nodules, likely infectious/ inflammatory. Follow-up sputum culture on 08/22/17 positive sign MRSA. Patient extubated and reintubated on 08/16/2017; successfully extubated 08/25/2017. Plan to proceed with trach should her respiratory status deteriorate. On DuoNeb, Solu-Medrol, Terbutaline, Pulmicort == Pain: Multifactoral. Patient has a known history of chronic back pain, CAD, severe peripheral vascular disease status post left BKA. Additional contributing factors may include invasive lines, immobility etc. Patient denies pain on exam. PRN acetaminophen available. * Positive care will continue to follow this patient throughout his hospitalization to establish stress, assist with symptom management and clarification of medical treatment goals. . Attestation To help prompt me to consider important information that might be impacting today's encounter and assessment, information from prior notes written by myself or my colleagues may have been "brought forward" into today's note. My signature on this note, however, is an attestation that I personally performed the exam, history, and/or decision-making noted today, and, unless otherwise indicated, the interactions with patient, family, and staff as well as the review of records all occurred today. I also attest that the listed assessment and stated plan reflect my best clinical judgment today based on the combination of historical information, prior notes, and today's exam/ interactions. When time spent is documented, it refers only to time spent today by the signer, or if indicated, combined time spent today by collaborating physician/nurse practitioner. . Judith Salazar August 30, 2017 17:35
[2017-08-30] MEDS: RESP: BUDESONIDE 0.5 MG/2 ML NEB NEB SCH (20:41)
[2017-08-30] MEDS: ATORVASTATIN 40 MG TAB PO SCH (21:05)
[2017-08-31] VITALS (10 sets, daily range): BP systolic 104–146; BP diastolic 67–79; PULSE 101–115; RESP 20–37; TEMP 97.4–98.6; O2SAT 95–100
[2017-08-31] MEDS: INSULIN ASPART SUPPLEMENTAL SCALE SQ SCH ×6 (00:03→20:03)
[2017-08-31] MEDS: CHLORHEXIDINE GLUCONATE 2 % 1 PACK (2 CLOTHS) TOP SCH (03:16)
[2017-08-31] MEDS: PANTOPRAZOLE SODIUM 40 MG VIAL IV PUSH SCH ×2 (05:16→17:26)
[2017-08-31] MEDS: METOPROLOL TARTRATE 50 MG TAB PO SCH ×3 (05:16→20:40)
[2017-08-31] MEDS: ISOSORBIDE MONONITRATE 60 MG CR TAB (IMDUR) PO SCH (06:15)
[2017-08-31 06:57] LABS: HEMATOCRIT 25.4 % (39.0-51.0); MEAN CELL VOLUME 94.3 FL (80.0-100.0); MEAN CORPUSCULAR HEMOGLOBIN 29.9 PG (27.0-34.0); MEAN CORPUSCULAR HGB CONC 31.7 % (32.0-36.0); MEAN PLATELET VOLUME 10.3 FL (7.0-11.0); PLATELET COUNT 158 TH/MM3 (150-450); RED BLOOD COUNT 2.69 MIL/MM3 (4.50-5.90); RED CELL DISTRIBUTION WIDTH 18.8 % (11.6-17.2)
[2017-08-31 07:21] LABS: CALCIUM 7.7 MG/DL (8.5-10.1); CREATININE 0.44 MG/DL (0.60-1.30)
[2017-08-31] MEDS: RESP: ALBUTEROL 2.5 MG/IPRATROPIUM 0.5 MG NEB (PRN) NEB ×3 (07:36→20:13)
[2017-08-31] MEDS: RESP: BUDESONIDE 0.5 MG/2 ML NEB NEB SCH ×2 (07:36→20:13)
[2017-08-31] MEDS: CHLORHEXIDINE 0.12% (ORAL KIT) 15 ML CUP MT SCH ×2 (08:00→20:00)
[2017-08-31] MEDS: FAMOTIDINE 20 MG TAB TUBE SCH ×2 (08:59→20:40)
[2017-08-31] MEDS: FUROSEMIDE 20 MG TAB PO SCH (08:59)
[2017-08-31] MEDS: ASPIRIN 81 MG CHEW TAB CHEW SCH (08:59)
[2017-08-31] MEDS: ENOXAPARIN SODIUM 40 MG/0.4 ML SYRINGE SQ SCH (08:59)
[2017-08-31] MEDS: SODIUM CHLORIDE 0.9% FLUSH 10 ML FLUSH IV FLUSH SCH ×3 (09:00→20:40)
[2017-08-31] MEDS: LEVOFLOXACIN 500 MG TAB PO SCH (09:00)
[2017-08-31] MEDS: predniSONE 20 MG TAB PO SCH ×2 (09:00→20:40)
[2017-08-31] MEDS: INSULIN DETEMIR 100 UNITS/ML VIAL SQ SCH ×2 (09:00→20:04)
[2017-08-31] MEDS: LINEZOLID 600 MG TAB PO SCH ×2 (09:00→20:40)
--- NOTE | 2017-08-31 09:54 | HHI.PR ---
Subjective Remarks The patient was resting in bed. He indicated some mild abdominal discomfort and some difficulty breathing at times. Trying to speak in whispers. Tolerating tube feeds. Objective Vitals Vital Signs Date Time Temp Pulse Resp B/P (MAP) Pulse Ox O2 Delivery O2 Flow Rate FiO2 08/31/17 07:37 100 Nasal Cannula 2.00 08/31/17 04:00 98.6 112 31 130/70 (90) 98 08/31/17 04:00 112 08/31/17 00:00 98.2 101 35 146/79 (101) 98 08/31/17 00:00 101 08/30/17 20:42 97 Nasal Cannula 2.00 08/30/17 20:00 104 08/30/17 20:00 98.0 104 33 126/73 (90) 97 08/30/17 14:00 110 35 132/81 (98) 98 08/30/17 13:00 109 30 137/85 (102) 96 08/30/17 12:00 98.3 106 30 126/72 (90) 97 08/30/17 11:00 101 33 137/73 (94) 100 08/30/17 10:00 101 28 125/74 (91) 98 I/O 08/30/17 08/30/17 08/30/17 08/31/17 08/31/17 08/31/17 07:00 15:00 23:00 07:00 15:00 23:00 Intake Total 691 ml 600 ml 697 ml Output Total 1100 ml 500 ml 750 ml Balance -409 ml 100 ml -53 ml Tube Feeding 571 ml 480 ml 547 ml Tube Irrigant 150 ml Other 120 ml 120 ml Output Urine Total 700 ml 500 ml 550 ml Stool Total 400 ml 200 ml Result Diagram: 08/31/17 0520 08/31/17 0520 Imaging Last Impressions Chest X-Ray 08/29/17 0000 Signed Impressions: CONCLUSION: 1. Right IJ central line in good position. Nasoenteric feeding type catheter i n the fundus of the stomach. 2. Marked improved aeration of the lung bases. Abdomen X-Ray 08/29/17 0000 Signed Impressions: CONCLUSION: Dobbhoff feeding tube is seen in the proximal stomach. CT Angiography 08/13/17 0000 Signed Impressions: Service Date/Time: Sunday, August 13, 2017 07:25 - CONCLUSION: 1. No CT evidence for pulmonary embolism as questioned. 2. Moderate to severe upper lobe predominant centrilobular emphysema. 3. Patchy bibasilar groundglass opacities likely reflecting atelectasis although differential considerations include aspiration. 4. Multiple 4-6mm bilateral groundglass and solid nodules, likely infectious/inflammatory. Recommend followup CT examination in approximately 6 months per 2017 Fleischner criteria (6mm nodule). Steve Barajas MD Objective Remarks GEN: No acute distress. HEENT: Pallor present, no icterus, tongue/ mucosa moist. Dobbhoff tube in place. Neck: No JVD Chest/Pulm: Unlabored. CVS: normal rate, regular rhythm. GI/abdomen: soft, nontender, no guarding. Extremities: warm bilaterally, 2+ peripheral edema, bilateral upper extremity edema. Left lower extremity status post BKA. Poor pulses on right foot. Neuro: awake. follows commands. Relatively non-verbal. A/P Assessment and Plan Acute on chronic hypoxic and hypercarbic respiratory failure on mechanical ventilation Patient and family goals as of 08/25: aggressive care including tracheostomy if he gets reintubated. Failed extubation 08/16/2017, reintubated approximately after 6-8 hours. Total vent days: 13. CT of the chest showed severe emphysema and pneumonia. Hemoptysis has been reported. Pulmonology consult appreciated. - IV Solu-Medrol changed to prednisone BID. - inhaled budesonide. - standing and as needed nebs. - pulmonology following. - IS. - PT/ OT/ ST. Acute metabolic encephalopathy/ Severe sepsis (Fever leukocytosis hypotension tachycardia) Sputum culture growing Pseudomonas 08/13/17, MRSA 08/22. - antibiotics d/c per ID. NSTEMI Was on metoprolol, lisinopril, Lasix and Aldactone per Dr. Gary. Holding Lasix and lisinopril due to increasing BUN, hypotension. EF 50%. - Use metoprolol IV as needed for hypertension, tachycardia. - Holding heparin and Coumadin since 08/19 in view of hemoptysis and ? GIB. Continue Lovenox 40 mg sq daily - Continue aspirin. - consider stress test, however, medical management would be recommended per cardiology. Malnutrition Dobbhoff in place. - Tube feeds with bowel regimen. - continue working with speech therapy. - consider PEG placement. Hyperkalemia Seems resolved. - resume Lasix and hold Aldactone. DM Exacerbated by steroids. - wean to prednisone. - Levemir 15 units daily, 10 units HS. Continue sliding scale. Adjust regimen as needed. GIB Has black stools. Hgb decreasing. GI consult appreciated. - IV PPI. - follow CBC and transfuse as needed. - consider EGD. Edema The pt has generalized edema. - IV Lasix. PPx: Lovenox Discharge Planning Transfer to the floor. Jacinto Jaimes DO August 31, 2017 09:54
[2017-08-31] MEDS: FUROSEMIDE 20 MG/2 ML VIAL IV PUSH SCH (11:41)
[2017-08-31] MEDS: ATORVASTATIN 40 MG TAB PO SCH (20:40)
[2017-09-01] VITALS (11 sets, daily range): BP systolic 108–168; BP diastolic 65–92; PULSE 96–129; RESP 18–42; TEMP 97.7–99.1; O2SAT 98–100
--- NOTE | 2017-09-01 01:01 | HHI.PR ---
Subjective Remarks NO DISTRESS ON O2 NC Objective Vital Signs Date Time Temp Pulse Resp B/P (MAP) Pulse Ox O2 Delivery O2 Flow Rate FiO2 09/01/17 00:00 104 08/31/17 22:29 109 08/31/17 22:20 97.4 109 20 120/70 (87) 95 08/31/17 20:13 100 Nasal Cannula 2.00 08/31/17 20:00 Nasal Cannula 2.00 Humidified 08/31/17 20:00 97.4 111 23 118/75 (89) 99 08/31/17 20:00 110 08/31/17 16:00 104 08/31/17 16:00 97.7 104 29 104/67 (79) 100 08/31/17 12:00 98.1 08/31/17 12:00 98.1 115 34 130/73 (92) 100 08/31/17 12:00 115 08/31/17 08:00 98.0 108 37 120/71 (87) 100 08/31/17 08:00 108 08/31/17 07:37 100 Nasal Cannula 2.00 08/31/17 04:00 98.6 112 31 130/70 (90) 98 08/31/17 04:00 112 I/O 08/31/17 08/31/17 08/31/17 09/01/17 09/01/17 09/01/17 07:00 15:00 23:00 07:00 15:00 23:00 Intake Total 697 ml 698 ml Output Total 750 ml 1525 ml Balance -53 ml -827 ml Tube Feeding 547 ml 523 ml Tube Irrigant 150 ml 175 ml Output Urine Total 550 ml 1350 ml Stool Total 200 ml 175 ml Result Diagram: 08/31/1751908/31/1720 Objective Remarks GENERAL: SKIN: Warm and dry. HEAD: Atraumatic. Normocephalic. EYES: Pupils equal and round. No scleral icterus. No injection or drainage. ENT: No nasal bleeding or discharge. Mucous membranes pink and moist. NECK: Trachea midline. No JVD. CARDIOVASCULAR: Regular rate and rhythm. RESPIRATORY: No accessory muscle use. Clear to auscultation. Breath sounds equal bilaterally. GASTROINTESTINAL: Abdomen soft, non-tender, nondistended. Hepatic and splenic margins not palpable. MUSCULOSKELETAL: Extremities without clubbing, cyanosis, or edema. No obvious deformities. NEUROLOGICAL: Awake and alert. No obvious cranial nerve deficits. Motor grossly within normal limits. Five out of 5 muscle strength in the arms and legs. Normal speech. PSYCHIATRIC: Appropriate mood and affect; insight and judgment normal. Assessment and Plan Assessment and Plan IMPRESSION RESPIRATORY FAILURE COPD AFIB HTN PVD CAD PLAN O2 NEEDED BRONCHODILATOR THERAPY INCREASE ACTIVITY Goran Zimmer MD September 01, 2017 01:01
[2017-09-01] MEDS ORDERED: FUROSEMIDE 20 MG/2 ML VIAL IV PUSH ONE (02:45)
[2017-09-01] MEDS: RESP: ALBUTEROL 2.5 MG/IPRATROPIUM 0.5 MG NEB (PRN) NEB ×3 (03:15→20:44)
--- NOTE | 2017-09-01 03:45 | RADRPT ---
EXAM DATE: 09/01/2017 3:42 AM EDT AGE/SEX: 66 years / Male INDICATIONS: Shortness of breath. CLINICAL DATA: This is the patient's subsequent encounter. Patient reports that signs and symptoms h ave been present for 3 weeks and indicates a pain score of 0/10. MEDICAL/SURGICAL HISTORY: Hypertension. Chronic obstructive pulmonary disease. Congestive hea rt failure. Asthma. CABG. COMPARISON: [facility] [place], CHEST SINGLE AP, 08/29/2017. . FINDINGS: No infiltrate, effusion or pneumothorax demonstrated. Normal, stable heart size. Patient has had previous median sternotomy and CABG. Right internal jugular central venous catheter with tip in the superior vena cava again noted. CONCLUSION: No acute cardiopulmonary disease demonstrated. Electronically signed by: David Cabezas MD 09/01/2017 3:44 AM EDT
[2017-09-01] MEDS: CHLORHEXIDINE GLUCONATE 2 % 1 PACK (2 CLOTHS) TOP SCH (04:00)
[2017-09-01] MEDS: INSULIN ASPART SUPPLEMENTAL SCALE SQ SCH ×6 (04:00→20:00)
[2017-09-01] MEDS: PANTOPRAZOLE SODIUM 40 MG VIAL IV PUSH SCH ×2 (05:20→17:29)
[2017-09-01] MEDS: METOPROLOL TARTRATE 50 MG TAB PO SCH ×3 (05:20→21:15)
[2017-09-01 05:57] LABS: HEMATOCRIT 25.1 % (39.0-51.0); HEMOGLOBIN 8.1 GM/DL (13.0-17.0); MEAN CELL VOLUME 93.9 FL (80.0-100.0); MEAN CORPUSCULAR HEMOGLOBIN 30.2 PG (27.0-34.0); MEAN CORPUSCULAR HGB CONC 32.2 % (32.0-36.0); MEAN PLATELET VOLUME 9.7 FL (7.0-11.0); PLATELET COUNT 153 TH/MM3 (150-450); RED BLOOD COUNT 2.68 MIL/MM3 (4.50-5.90); RED CELL DISTRIBUTION WIDTH 18.7 % (11.6-17.2); WHITE BLOOD COUNT 14.6 TH/MM3 (4.0-11.0)
[2017-09-01] MEDS: ISOSORBIDE MONONITRATE 60 MG CR TAB (IMDUR) PO SCH (06:12)
[2017-09-01 06:16] LABS: BICARBONATE 31.8 MEQ/L (21.0-32.0); CALCIUM 7.5 MG/DL (8.5-10.1); CREATININE 0.59 MG/DL (0.60-1.30)
[2017-09-01] MEDS: RESP: BUDESONIDE 0.5 MG/2 ML NEB NEB SCH ×2 (08:20→20:44)
--- NOTE | 2017-09-01 08:20 | HHI.PR ---
Subjective Remarks in no acute distress. afebrile. Objective Vitals Vital Signs Date Time Temp Pulse Resp B/P (MAP) Pulse Ox O2 Delivery O2 Flow Rate FiO2 09/01/17 04:00 Nasal Cannula 2.00 Humidified 09/01/17 04:00 97.7 115 18 115/66 (82) 99 09/01/17 04:00 120 09/01/17 00:00 97.7 107 18 115/67 (83) 98 09/01/17 00:00 104 08/31/17 22:40 Nasal Cannula 2.00 Humidified 08/31/17 22:29 109 08/31/17 22:20 97.4 109 20 120/70 (87) 95 08/31/17 20:13 100 Nasal Cannula 2.00 08/31/17 20:00 Nasal Cannula 2.00 Humidified 08/31/17 20:00 97.4 111 23 118/75 (89) 99 08/31/17 20:00 110 08/31/17 16:00 104 08/31/17 16:00 97.7 104 29 104/67 (79) 100 08/31/17 12:00 98.1 08/31/17 12:00 98.1 115 34 130/73 (92) 100 08/31/17 12:00 115 I/O 08/31/17 08/31/17 08/31/17 09/01/17 09/01/17 09/01/17 07:00 15:00 23:00 07:00 15:00 23:00 Intake Total 697 ml 698 ml 577 ml Output Total 750 ml 1525 ml 1400 ml Balance -53 ml -827 ml -823 ml Intake Oral 0 ml Tube Feeding 547 ml 523 ml 547 ml Tube Irrigant 150 ml 175 ml 30 ml Output Urine Total 550 ml 1350 ml 1400 ml Stool Total 200 ml 175 ml Result Diagram: 09/01/17 0529 09/01/17 0529 Imaging Last Impressions Chest X-Ray 09/01/17 0000 Signed Impressions: CONCLUSION: No acute cardiopulmonary disease demonstrated. Abdomen X-Ray 08/29/17 0000 Signed Impressions: CONCLUSION: Dobbhoff feeding tube is seen in the proximal stomach. CT Angiography 08/13/17 0000 Signed Impressions: Service Date/Time: Sunday, August 13, 2017 07:25 - CONCLUSION: 1. No CT evidence for pulmonary embolism as questioned. 2. Moderate to severe upper lobe predominant centrilobular emphysema. 3. Patchy bibasilar groundglass opacities likely reflecting atelectasis although differential considerations include aspiration. 4. Multiple 4-6mm bilateral groundglass and solid nodules, likely infectious/inflammatory. Recommend followup CT examination in approximately 6 months per 2017 Fleischner criteria (6mm nodule). Steve Barajas MD Objective Remarks GENERAL: sounds congested CARDIOVASCULAR: Regular rate and regular rhythm without murmurs, gallops, or rubs. RESPIRATORY: Clear to auscultation. Breath sounds equal bilaterally. No wheezes , rales, or rhonchi. GASTROINTESTINAL: Abdomen soft, non-tender, nondistended. Normal, active bowel sounds MUSCULOSKELETAL: s/p left BKA NEURO: Alert & Oriented x4 to person, place, time, situation. Moves all ext x4 Medications and IVs Inpatient Medications Acetaminophen (Tylenol) 650 mg Q6H PRN PO PAIN 1-10 AND/OR FEVER >101F Last administered on 08/30/17at 08:03; Start 08/13/17 at 07:00 Albuterol/ Ipratropium (Duoneb Neb) 1 ampule Q2HR NEB PRN NEB SOB/WHEEZING Last administered on 09/01/17at 03:15; Start 08/27/17 at 01:00 Aspirin (Aspirin Chew) 81 mg DAILY CHEW Last administered on 08/31/17at 08:59; Start 08/13/17 at 09:00 Atorvastatin Calcium (Lipitor) 40 mg HS PO Last administered on 08/31/17at 20:40 ; Start 08/15/17 at 21:00 Aztreonam 1000 mg/ Sodium Chloride 100 ml @ 200 mls/hr Q8H IV Last administered on 08/15/17at 03:11; Start 08/13/17 at 12:00; Stop 08/15/17 at 08:25 ; Status DC Aztreonam 2000 mg/ Sodium Chloride 100 ml @ 200 mls/hr Q8H IV Last administered on 08/20/17at 10:31; Start 08/15/17 at 10:00; Stop 08/20/17 at 11:02 ; Status DC Budesonide (Pulmicort Respule Neb) 0.5 mg Q12HR NEB NEB Last administered on at 20:13; Start 08/14/17 at 14:00 Cefepime HCl 2000 mg/Sodium Chloride 100 ml @ 200 mls/hr Q8H IV Last administered on 08/26/17at 04:18; Start 08/20/17 at 12:00; Stop 08/26/17 at 13:40 ; Status DC Chlorhexidine Gluconate (Chlorhexidine 2% Cloth) 3 pack UNSCH PRN TOP HYGIENIC CARE; Start 08/13/17 at 07:00 Chlorhexidine Gluconate (Peridex 0.12% Liq) 15 ml BID@08,20 MT Last administered on 08/31/17at 20:00; Start 08/13/17 at 08:00 Dexmedetomidine HCl 200 mcg/ Sodium Chloride 52 ml @ 4.21 mls/hr TITRATE PRN IV SEDATION Last administered on 08/21/17at 10:14; Start 08/16/17 at 18:00; Stop 08/25/17 at 16:39; Status DC Dextrose (D50w (Vial) Inj) 50 ml UNSCH PRN IV PUSH HYPOGLYCEMIA-SEE COMMENTS Last administered on 08/26/17at 04:18; Start 08/13/17 at 05:30 Dopamine HCl/ Dextrose 500 ml @ 8.494 mls/ hr TITRATE PRN IV Blood Pressure Management; Start 08/17/17 at 12:30; Stop 08/22/17 at 08:01; Status DC Enoxaparin Sodium (Lovenox Inj) 40 mg Q24H SQ Last administered on 08/31/17at 08 :59; Start 08/20/17 at 10:00; Status Future hold Famotidine (Pepcid) 20 mg BID TUBE Last administered on 08/31/17at 20:40; Start 08/13/17 at 09:00 Fentanyl Citrate 250 ml @ 5 mls/hr TITRATE PRN IV SEDATION Last administered on 08/24/17at 19:32; Start 08/13/17 at 07:00; Stop 08/25/17 at 16:39; Status DC Furosemide (Lasix Inj) 20 mg ONCE ONCE IV PUSH Last administered on 09/01/17at 02:54; Start 09/01/17 at 02:45; Stop 09/01/17 at 02:52; Status DC Furosemide (Lasix) 20 mg DAILY PO Last administered on 08/31/17at 08:59; Start 08/15/17 at 09:00; Stop 08/31/17 at 09:53; Status DC Glucagon (Glucagon Inj) 1 mg UNSCH PRN OTHER HYPOGLYCEMIA-SEE COMMENTS; Start 08/13/17 at 05:30 Heparin Sodium (Porcine) (Heparin Inj) 5,000 units ONCE ONCE IV Last administered on 08/13/17at 05:39; Start 08/13/17 at 05:15; Stop 08/13/17 at 05:17; Status DC Heparin Sodium/ Dextrose 250 ml @ 16 mls/hr TITRATE PRN IV Coagulation Management Last administered on 08/18/17at 19:26; Start 08/13/17 at 05:15; Stop at 16:39; Status DC Hyoscyamine Sulfate (Levsin Liq) 0.125 mg Q4H PRN PO secretions; Start at 09:30 Insulin Aspart (NovoLOG SUPPLEMENTAL SCALE) 1 Q4HR SQ Last administered on 09/01at 04:00; Start 08/22/17 at 09:30 Insulin Detemir (Levemir Inj) 10 units HS SQ Last administered on 08/31/17at 20: 04; Start 08/31/17 at 21:00 Isosorbide Mononitrate (Imdur) 60 mg DAILY@07 PO Last administered on at 05:09; Start 08/27/17 at 07:00 Levofloxacin (Levaquin) 500 mg DAILY PO Last administered on 08/31/17at 09:00; Start 08/26/17 at 13:45 Linezolid (Zyvox) 600 mg Q12HR PO Last administered on 08/31/17at 20:40; Start 08/26/17 at 13:45 Lisinopril (Prinivil) 10 mg DAILY PO Last administered on 08/21/17at 07:56; Start 08/15/17 at 09:00; Status Future Hold Lorazepam (Ativan Inj) 1 mg ONCE ONCE IV PUSH Last administered on 08/16/17at 18:52; Start 08/16/17 at 18:30; Stop 08/16/17 at 18:43; Status DC Magnesium Oxide (Mag-Ox) 800 mg UNSCH PRN PO For Magnesium 1.2 - 1.6 mg/dL; Start 08/14/17 at 04:15; Stop 09/01/17 at 07:59; Status DC Magnesium Sulfate 2 gm/Sodium Chloride 100 ml @ 50 mls/hr UNSCH PRN IV For Magnesium 1.2 - 1.6 mg/dL Last administered on 08/14/17at 09:02; Start 08/14/17 at 04:15; Stop 09/01/17 at 07:59; Status DC Magnesium Sulfate 4 gm/Sodium Chloride 100 ml @ 50 mls/hr UNSCH PRN IV For Magnesium 0.9 - 1.1 mg/dL; Start 08/14/17 at 04:15; Stop 09/01/17 at 07:59; Status DC Methylprednisolone Sodium Succinate (SoluMEDROL INJ) 60 mg Q12HR IV PUSH Last administered on 08/27/17at 10:05; Start 08/21/17 at 21:00; Stop 08/27/17 at 10:23 ; Status DC Metoprolol Tartrate (Lopressor Inj) 2.5 mg Q6H PRN IV PUSH HR >120 Last administered on 08/29/17at 09:37; Start 08/22/17 at 08:00 Metoprolol Tartrate (Lopressor) 50 mg Q8HR PO Last administered on 09/01/17at 05 :20; Start 08/26/17 at 22:00 Metronidazole (Flagyl) 500 mg Q8H PO Last administered on 08/22/17at 10:39; Start 08/22/17 at 10:00; Stop 08/22/17 at 10:49; Status DC Micafungin Sodium 150 mg/Sodium Chloride 100 ml @ 100 mls/hr Q24H IV Last administered on 08/25/17at 12:19; Start 08/22/17 at 12:00; Stop 08/26/17 at 13:40 ; Status DC Midazolam HCl (Versed Inj) 5 mg ONCE ONCE IV PUSH ; Start 08/23/17 at 06:30; Stop 08/23/17 at 06:46; Status DC Miscellaneous Information (MISC RASS Change Order) 1 ONCE ONCE XX Last administered on 08/16/17at 18:30; Start 08/16/17 at 18:30; Stop 08/16/17 at 18:43 ; Status DC Miscellaneous Information ([facility]) 1 Q361D XX Last administered on 08/13/17at 07:00; Start 08/13/17 at 07:00 Miscellaneous Information ([facility] Ordered Lab Info) SPECIFIC LAB TO BE DRAWN:VANCOMYCIN TROUGH DATE TO... ONCE ONCE .XX Last administered on at 10:45; Start 08/24/17 at 10:45; Stop 08/24/17 at 10:46; Status DC Norepinephrine Bitartrate 250 ml @ 7.5 mls/hr TITRATE PRN IV Maintain MAP > 65 mmHg; Start 08/13/17 at 05:30; Stop 08/25/17 at 16:39; Status DC Pantoprazole Sodium (Protonix Inj) 40 mg Q12H IV PUSH Last administered on 09/01at 05:20; Start 08/28/17 at 06:00 Patient Medication Teaching (Coumadin Booklet) 1 ONCE ONCE .XX Last administered on 08/18/17at 16:00; Start 08/18/17 at 16:00; Stop 08/18/17 at 16:01 ; Status DC Pharmacy Profile Note 0 ml @ 0 mls/hr UNSCH OTHER ; Start 08/22/17 at 09:15; Stop 08/26/17 at 13:40; Status DC Potassium Phosphate (K-Phos) 2,000 mg UNSCH PRN PO/TUBE SEE LABEL COMMENTS; Start 08/14/17 at 04:15; Stop 09/01/17 at 07:59; Status DC Potassium Phosphate 30 mmol/ Sodium Chloride 260 ml @ 42 mls/hr UNSCH PRN IV SEE LABEL COMMENTS; Start 08/14/17 at 04:15; Stop 09/01/17 at 07:59; Status DC Potassium Bicarb/ Potassium Chloride (K-Lyte Cl Eff) 50 meq UNSCH PRN PO For Potassium 3.3 - 3.5 mEq/L; Start 08/14/17 at 04:15; Stop 09/01/17 at 07:59; Status DC Potassium Chloride 100 ml @ 50 mls/hr Q2H PRN IV For Potassium 3.3 - 3.5 mEq/ L Last administered on 08/16/17at 06:30; Start 08/14/17 at 04:15; Stop 09/01/17 at 07:59; Status DC Prednisone (Deltasone) 20 mg BID PO Last administered on 08/31/17at 20:40; Start 08/27/17 at 21:00 Propofol 100 ml @ 2.406 mls/ hr TITRATE PRN IV SEDATION; Start 08/23/17 at 06: 45; Stop 08/25/17 at 16:39; Status DC Rocuronium [place] (Zemuron Inj) 100 mg BOLUS ONCE IV ; Start 08/23/17 at 06:30 ; Stop 08/23/17 at 06:45; Status DC Sodium Polystyrene Sulfonate (Kayexalate Liq) 30 gm ONCE ONCE PO Last administered on 08/13/17at 15:22; Start 08/13/17 at 15:00; Stop 08/13/17 at 15:01; Status DC Sodium Chloride (NS Flush) UNSCH PRN IV FLUSH SEE PROTOCOL; Start 08/27/17 at 15:45 Sodium Chloride 38.5 meq/Sterile Water 1,000 ml @ 150 mls/hr Q6H40M IV Last administered on 08/25/17at 13:31; Start 08/22/17 at 17:00; Stop 08/25/17 at 16:39 ; Status DC Sodium Phosphate 30 mmol/Sodium Chloride 250 ml @ 42 mls/hr UNSCH PRN IV For Phosphorus < 2.5 mg/dL; Start 08/14/17 at 04:15; Stop 09/01/17 at 07:59; Status DC Spironolactone (Aldactone) 25 mg DAILY PO Last administered on 08/27/17at 10:06 ; Start 08/15/17 at 09:00; Stop 08/27/17 at 10:28; Status DC Terbutaline Sulfate (Brethine Inj) 1 mg UNSCH PRN SQ For Extravasation; Start 08/17/17 at 12:30; Stop 08/29/17 at 09:17; Status DC Vancomycin HCl (VANCOMYCIN for oral use only) 250 mg QID PO Last administered on 08/23/17at 08:16; Start 08/22/17 at 13:00; Stop 08/23/17 at 08:35; Status DC Vancomycin HCl 1200 mg/Sodium Chloride 262 ml @ 250 mls/hr Q12H IV ; Start 08/13 at 11:30; Stop 08/13/17 at 12:59; Status DC Vancomycin HCl 1750 mg/Sodium Chloride 517.5 ml @ 250 mls/hr Q12H IV Last administered on 08/24/17at 12:48; Start 08/22/17 at 11:00; Stop 08/26/17 at 13:40 ; Status DC Warfarin Sodium (Coumadin) 4 mg DAILY@16 PO Last administered on 08/18/17at 17: 02; Start 08/18/17 at 16:00; Status Future Hold A/P Assessment and Plan A/P Acute on chronic hypoxic and hypercarbic respiratory failure Patient and family goals as of 08/25: aggressive care including tracheostomy if he gets reintubated. Failed extubation 08/16/2017, reintubated approximately after 6-8 hours. Total vent days: 13. CT of the chest showed severe emphysema and pneumonia. Hemoptysis has been reported. Pulmonology consult appreciated. - IV Solu-Medrol changed to prednisone BID. - inhaled budesonide. - standing and as needed nebs. - pulmonology following. - IS. - PT/ OT/ ST. Acute metabolic encephalopathy/ Severe sepsis (Fever leukocytosis hypotension tachycardia) Sputum culture growing Pseudomonas 08/13/17, MRSA 08/22. - antibiotics d/c per ID. NSTEMI Was on metoprolol, lisinopril, Lasix and Aldactone per Dr. Gary. - Use metoprolol IV as needed for hypertension, tachycardia. - Holding heparin and Coumadin since 08/19 in view of hemoptysis and ? GIB. Continue Lovenox 40 mg sq daily - Continue aspirin. - consider stress test, however, medical management would be recommended per cardiology. -will consider adding JOSEFINA. Malnutrition Dobbhoff in place. - Tube feeds with bowel regimen. - continue working with speech therapy. - will consider PEG placement if keeps failing the swallow evaluation. Hyperkalemia resolved. - resumed Lasix and hold Aldactone. DM Exacerbated by steroids. - wean to prednisone. - Levemir 15 units daily, 10 units HS. Continue sliding scale. Adjust regimen as needed. GIB Has black stools. Hgb decreasing. GI consult appreciated. - IV PPI. - follow CBC and transfuse as needed. - consider EGD. Edema The pt has generalized edema. - IV Lasix. PPx: Lovenox palliative care following. Henry Mac MD September 01, 2017 08:20
[2017-09-01] MEDS: FUROSEMIDE 20 MG/2 ML VIAL IV PUSH SCH (08:25)
[2017-09-01] MEDS: ASPIRIN 81 MG CHEW TAB CHEW SCH (08:27)
[2017-09-01] MEDS: predniSONE 20 MG TAB PO SCH (08:27)
[2017-09-01] MEDS: FAMOTIDINE 20 MG TAB TUBE SCH ×2 (08:28→21:00)
[2017-09-01] MEDS: ENOXAPARIN SODIUM 40 MG/0.4 ML SYRINGE SQ SCH (08:28)
[2017-09-01] MEDS: SODIUM CHLORIDE 0.9% FLUSH 10 ML FLUSH IV FLUSH SCH ×3 (08:29→21:00)
[2017-09-01] MEDS: CHLORHEXIDINE 0.12% (ORAL KIT) 15 ML CUP MT SCH ×3 (08:29→20:00)
[2017-09-01] MEDS: INSULIN DETEMIR 100 UNITS/ML VIAL SQ SCH ×2 (08:30→21:00)
--- NOTE | 2017-09-01 11:39 | HHI.PR ---
Addendum To [facility] Progress Not Reason for addendum: Additonal documentation (was notified by the RN that the patient aspirated few minutues ago. patient is currently on two liters of oxygen via N/C- will repeat CXR and obatin ABG- will transfer the patient to ICU - will consider concrete foreman consult.) Henry Mac MD September 01, 2017 11:39
--- NOTE | 2017-09-01 12:23 | RADRPT ---
EXAM DATE: 09/01/2017 12:18 PM EDT AGE/SEX: 66 years / Male INDICATIONS: Shortness of breath. CLINICAL DATA: This is the patient's subsequent encounter. Patient reports that signs and symptoms h ave been present for 1 day and indicates a pain score of Nonresponsive. MEDICAL/SURGICAL HISTORY: Non-responsive. Hypoxic respiratory failure. Non-responsive. COMPARISON: [facility] [place], CHEST SINGLE AP, 09/01/2017. . FINDINGS: A single AP view of the chest demonstrates the lungs to be symmetrically aerated without evidence of mass, infiltrate or effusion. The lungs are hyperaerated bilaterally. The cardiomediastinal contours are stable. There is evidence of previous cardiothoracic surgery. There is a right-sided central cath eter in place. No evidence of pneumothorax.. Osseous structures are stable. Feeding tube has been re moved. CONCLUSION: No acute intrathoracic disease. No significant change compared to the prior exam. Electronically signed by: Edgar Sierra MD 09/01/2017 12:21 PM EDT
[2017-09-01] MEDS ORDERED: methylPREDNISolone SOD SUCC 125 MG/2 ML VIAL IV PUSH ONE (14:00)
[2017-09-01] MEDS ORDERED: DEXMEDETOMIDINE HCL 200 MCG/2 ML VIAL IV PUSH ONE (14:00)
[2017-09-01] MEDS ORDERED: DEXMEDETOMIDINE INJ 200 MCG in SODIUM CHLORIDE 0.9% INJ 50 ML IV PRN (14:00)
[2017-09-01] MEDS ORDERED: SODIUM CHLOR 0.9% 1000 ML INJ 1,000 ML IV SCH (14:00)
[2017-09-01] MEDS: SODIUM CHLOR 0.9% 1000 ML INJ 1,000 ML IV SCH (14:17)
--- NOTE | 2017-09-01 14:40 | HHI.CCPN ---
Subjective Remarks/Hospital Course 66-year-old male who was brought to the ER after he developed shortness of breath and altered mental status. At [facility] he was placed on nasal cannula 2 L because of his history of COPD as he uses it off and on. EMS was called when patient developed agonal respirations with O2 sats in the low 80s on their arrival with pink frothy sputum. Patient was intubated in the field after receiving etomidate and Versed. His systolic blood pressure was 190s following intubation and dropped to the 60 systolic range and he was started on dopamine in the field by EMS. He was brought to the ER at [facility] and noted to have elevated troponin on his admitting labs. He was accepted for admission by critical care medicine service. He underwent a CT chest to evaluate for PE which was negative for PE however did show severe emphysematous changes with groundglass opacities. History is significantly limited by the fact that he is intubated. When I evaluated the patient he was sedated, orally intubated on mechanical ventilation. History was obtained by reviewing records. SUBJ 08/14/17: Remains intubated sedated, a CPAP was attempted but patient failed almost immediately with severe tachypnea. Continues to have bilateral expiratory wheezing and diminished air entry. Initial troponin was 3.18 now down trending 08/15/17: Patient remains intubated sedated with Versed and fentanyl. On sedation hold wakes up easily follows commands. On attempted CPAP patient became tachypneic with labored breathing using accessory muscles. Not ready for extubation. Pseudomonas growing in sputum. Increase Azactam to 2 g IV every 8 hours 08/16/17: Tolerating CPAP trials better today. Sputum culture growing Pseudomonas pansensitive. Will attempt to extubate with BiPAP use if needed 08/17/17: Reintubated yesterday evening following severe respiratory distress and severe wheezing. Currently remains sedated on vent support. Persistent wheezing. 08/18: Remains intubated sedated. Will initiate CPAP trials again. Patient has severe emphysema and will be difficult to wean to extubate. Wheezing persists. 08/19: Remains sedated, orally intubated on mechanical ventilation. Significant bloody respiratory secretions being suctioned from ET tube. On heparin for anticoagulation. Will hold Coumadin. 08/20: Sedated, arousable, orally intubated on mechanical ventilation. Failing CPAP trials. Heparin held yesterday due to increasing bloody respiratory secretions. 08/21: Remains sedated wakes up easily. Failed CPAP trial immediately today due to tachypnea and respiratory distress. No significant bloody secretions. Chest x-ray was clear. I discussed briefly with daughter. Poly Salcedo about possibility of trach. She needs more time to decide and needs time to discuss with family. I have consulted palliative care to address goals of care. Vent day 9 today. With his some advanced emphysema it will be difficult to wean him off the ventilator without tracheostomy 08/22: Patient is more critical becoming more septic. White count yesterday was 27.5. Today he spiked fever 101.3, tachycardic heart rate in 120s borderline hypotensive.. Chest x-ray shows developing left base infiltrate. Will continue cefepime panculture ordered. Vancomycin 1.25 g 1 and pharmacy to dose. Normal saline bolus 2 L ordered. 08/23: T-max 100.0. Hemoglobin downtrending now 7.2. Patient continues to be borderline hypotensive, monitor Hgb. Patient was tentatively scheduled for percutaneous tracheostomy this a.m. however unable to obtain consent from family members. Sodium level starting to downtrend with addition of free water flushes. 08/24: Hemodynamically stable throughout the night. Transfusion 1 unit of packed cells placed on hold with cancellation percutaneous tracheostomy due to lack of consent. H&H pending this afternoon, will transfuse for hemoglobin less than 7. Patient awake continuing on CPAP for greater than 4 hours today. 08/25: more awake. passed SBT. discussion with family and patient: he would want to be re-intubated and pursue tracheostomy if he fails again. 08/26: remained extubated. denies complaints. high risk for reintubation. wants aggressive care and tracheostomy if re-intubated. 09/01: Critical care E consulted for worsening respiratory status. Patient was transferred to the ICU from the floor due to increasing O2 requirement and placed on a nonrebreather facemask. He was reportedly tachypneic using accessory muscles of respiration. There was some concern regarding aspiration. I evaluated the patient following his arrival to the ICU. He was breathing in the 30s using accessory muscles of respiration on a nonrebreather facemask. He is awake however not really able to give me details of history due to respiratory distress. Patient will be placed on BiPAP and Precedex in order to avoid intubation. He does have significantly advanced COPD and recently completed a course of antibiotics. Will restart empiric antibiotics with Zyvox/ Levaquin/Flagyl IV. Objective Vital Signs Date Time Temp Pulse Resp B/P (MAP) Pulse Ox O2 Delivery O2 Flow Rate FiO2 09/01/17 08:23 98 Nasal Cannula 2.00 09/01/17 08:20 97.7 120 21 133/79 (97) Intake and Output 09/01/17 09/01/17 09/02/17 08:00 16:00 00:00 Intake Total 577 ml Output Total 1400 ml Balance -823 ml Result Diagram: 09/01/17 0529 09/01/17 0529 Other Results Laboratory Tests Test 09/01/17 12:30 Blood Gas Puncture Site RT RADIAL Blood Gas Patient Temperature 98.6 Blood Gas HCO3 30 mmol/L (22-26) Blood Gas Base Excess 5.9 mmol/L (-2-2) Blood Gas Oxygen Saturation 87 % (90-100) Arterial Blood pH 7.47 (7.380-7.420) Arterial Blood Partial Pressure CO2 41 mmHg (38-42) Arterial Blood Partial Pressure O2 56 mmHg (61-120) Arterial Blood Oxygen Content 10.4 Vol % (12.0-20.0) Arterial Blood Carboxyhemoglobin 2.3 % (0-4) Arterial Blood Methemoglobin 0.9 % (0-2) Blood Gas Hemoglobin 8.5 G/DL (12.0-16.0) Oxygen Delivery Device NASAL CANNULA Blood Gas Liter Flow 4 L/M Imaging Last Impressions Chest X-Ray 08/23/17 0600 Signed Impressions: Service Date/Time: Wednesday, August 23, 2017 04:23 - CONCLUSION: Clear lungs. Ricki Metzger Jr., MD CT Angiography 08/13/17 0000 Signed Impressions: Service Date/Time: Sunday, August 13, 2017 07:25 - CONCLUSION: 1. No CT evidence for pulmonary embolism as questioned. 2. Moderate to severe upper lobe predominant centrilobular emphysema. 3. Patchy bibasilar groundglass opacities likely reflecting atelectasis although differential considerations include aspiration. 4. Multiple 4-6mm bilateral groundglass and solid nodules, likely infectious/inflammatory. Recommend followup CT examination in approximately 6 months per 2017 Fleischner criteria (6mm nodule). Steve Barajas MD Last Impressions Chest X-Ray 08/13/17 0414 Signed Impressions: Service Date/Time: Sunday, August 13, 2017 04:28 - CONCLUSION: Lungs are grossly clear. ET tube in good position. Abel Cannon MD CT Angiography 08/13/17 0000 Signed Impressions: Service Date/Time: Sunday, August 13, 2017 07:25 - CONCLUSION: 1. No CT evidence for pulmonary embolism as questioned. 2. Moderate to severe upper lobe predominant centrilobular emphysema. 3. Patchy bibasilar groundglass opacities likely reflecting atelectasis although differential considerations include aspiration. 4. Multiple 4-6mm bilateral groundglass and solid nodules, likely infectious/inflammatory. Recommend followup CT examination in approximately 6 months per 2017 Fleischner criteria (6mm nodule). Steve Barajas MD Objective Remarks GEN: middle-aged male who appears much older than stated age, sitting up in bed in significant respiratory distress with tachypnea using accessory muscles of respiration HEENT: Pallor present, no icterus, tongue/ mucosa moist. Neck: No JVD Chest/Pulm: Good air entry bilaterally though decreased at bases, scattered rhonchi, no wheezing or crackles. Using accessory muscles of respiration. On 100% nonrebreather facemask. CVS: S1-S2 regular, no gallop or murmur GI/abdomen: soft, nontender, no guarding. Extremities: warm bilaterally, 2+ peripheral edema bilateral upper extremity edema. Left lower extremity status post BKA Neuro: awake. Alert, moving all extremities. In significant respiratory distress currently. Disoriented A/P Assessment and Plan Assessment: Acute on chronic hypoxic and hypercarbic respiratory failure Acute metabolic encephalopathy Severe sepsis Acute COPD exacerbation NSTEMI Pseudomonas pneumonia Suspected aspiration MRSA Ventilator associated pneumonia Advanced COPD/emphysema CAD History of cardiomyopathy Diabetes Hyperlipidemia Hypertension Paroxysmal atrial fibrillation. Peripheral vascular disease Plan: Neuro: - Follow neuro status. -Precedex gtt Cardiovascular: -Currently on Isosorbide mononitrate, atorvastatin, lasix per Dr. Gary. Holding Lasix and lisinopril due to increasing BUN, hypotension -Use metoprolol IV prn as needed for hypertension, tachycardia -Holding heparin and Coumadin since 5/14 in view of hemoptysis currently. Continue Lovenox 40 mg sq daily -Continue aspirin. Cardiology Dr. Gary. 2D echo EF 50% -Dr. Gary recommends nuclear stress test when able to tolerate. Pulmonary: - patient and family goals as of my discussion 08/25: aggressive care including tracheostomy if he gets reintubated. -Failed extubation 08/16/2017, reintubated approximately after 6-8 hours. Total vent day 13 -Patient will need prolonged ventilatory support and will need trach due to severe emphysema, and pneumonia and sepsis -CT of the chest showed severe emphysema and pneumonia -Starting IV Solu-Medrol, continue bronchodilators inhaled budesonide -Starting antibiotics on 09/01 due to worsening respiratory status with question of aspiration. Ordered Zyvox/Levaquin/Flagyl IV -Start BiPAP. If patient fails BiPAP will need endotracheal intubation. GI/liver: -N.p.o. till improvement of neurologic status. Renal/: -Lasix daily. Hold Aldactone. -Strict intake output, monitor and replete electrodes, follow BUN/creatinine. ID: -Sputum culture growing pansensitive pseudomonas 08/13/17, MRSA on 08/22 -Ordered empiric antibiotic coverage with IV Zyvox/Levaquin/Flagyl -Reconsult ID to manage abx. Endocrine: -Watch for hypoglycemia, SSI for glycemic control if needed. -Currently on Levemir every 12, SSI Heme: -Follow CBC and coags. Holding heparin and Coumadin in view of hemoptysis. Prophylaxis: -Pepcid/SCDs. Lovenox 40 mg subcutaneously (Full anticoagulation held due to hemoptysis) and will continue prophylactic dose provided hemoptysis does not recur or worsen. D/ W Dr. Snow, D/W [employer], D/W RT. Condition critical. Time spent on critical care excluding procedures 45 minute Lester Crafword MD September 01, 2017 14:40
[2017-09-01] MEDS: LEVOFLOXACIN 750 MG PREMIX INJ 150 ML IV SCH (15:41)
[2017-09-01] MEDS: LINEZOLID 600 MG PREMIX 300 ML IV SCH (15:43)
[2017-09-01] MEDS ORDERED: SODIUM CHLORID 0.9% 500 ML INJ 500 ML IV ONE (15:45)
[2017-09-01] MEDS ORDERED: ETOMIDATE 40 MG/20 ML VIAL ONE (16:19)
[2017-09-01] MEDS ORDERED: ROCURONIUM INJ 50 MG/5 ML VIAL ONE (16:20)
[2017-09-01] MEDS ORDERED: PROPOFOL 500 MG/50 ML INJ 50 ML ONE (16:24)
[2017-09-01] MEDS ORDERED: fentaNYL CITRATE 250 MCG/5 ML AMP IV ONE (16:30)
[2017-09-01] MEDS ORDERED: ETOMIDATE 20 MG/10 ML VIAL IVP ONE (16:30)
[2017-09-01] MEDS ORDERED: ROCURONIUM INJ 50 MG/5 ML VIAL IV ONE (16:30)
--- NOTE | 2017-09-01 16:56 | PD.PROCEDR ---
Procedure Note Procedure Procedure: Endotracheal intubation Preop diagnosis: Acute on chronic respiratory failure, COPD exacerbation Postop diagnosis: Same Sedation used: Etomidate 30 mg, fentanyl 200 mcg, rocuronium 50 mg IV Procedure: Patient was preoxygenated with 100% oxygen via Ambu bag with bag mask ventilation, following induction of sedation and neuromuscular blockade, direct laryngoscopy was performed using a Mac 4 blade with good visualization of vocal cords. An 8 Yi ET tube was passed through the vocal cords under direct visualization up to the 24 centimeter magda and after inflating cuff of ET tube, correct placement was confirmed using bagging with good color change on CO2 detector, 5 point auscultation and chest rise with ventilation. Patient was connected to mechanical ventilation. Patient tolerated the procedure well with no immediate complications noted. Postprocedure chest x-ray was ordered. Lester Crawford MD September 01, 2017 16:56
--- NOTE | 2017-09-01 17:25 | RADRPT ---
EXAM DATE: 09/01/2017 5:15 PM EDT AGE/SEX: 66 years / Male INDICATIONS: Post intubation CLINICAL DATA: This is the patient's subsequent encounter. Patient reports that signs and symptoms h ave been present for 4 - 6 days and indicates a pain score of Nonresponsive. MEDICAL/SURGICAL HISTORY: Non-responsive. Hypoxic respiratory failure Non-responsive. COMPARISON: [facility] – [place], CHEST SINGLE AP, 09/01/2017. . FINDINGS: Interval placement of an endotracheal tube is noted. Tube is in good position above the axel. Lungs are hyperinflated. Emphysematous changes are seen in the upper lobes. Lungs are otherwise free of significant congestion or acute airspace disease. Heart and mediastinal structures are stable. 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 CONCLUSION: 1. Interval placement of an endotracheal tube which is in good position above the axel. 2. COPD with emphysematous changes. 3. No evidence of significant airspace disease or acute congestion. Electronically signed by: Otto Drew MD 09/01/2017 5:24 PM EDT
[2017-09-01] MEDS: metroNIDAZOLE 500 MG INJ 100 ML IV SCH (17:29)
[2017-09-01 18:09] LABS: HEMOGLOBIN 7.5 GM/DL (13.0-17.0); MEAN CELL VOLUME 95.3 FL (80.0-100.0); MEAN CORPUSCULAR HEMOGLOBIN 29.7 PG (27.0-34.0); MEAN CORPUSCULAR HGB CONC 31.2 % (32.0-36.0); MEAN PLATELET VOLUME 9.7 FL (7.0-11.0); PLATELET COUNT 184 TH/MM3 (150-450); RED BLOOD COUNT 2.52 MIL/MM3 (4.50-5.90); RED CELL DISTRIBUTION WIDTH 18.7 % (11.6-17.2); WHITE BLOOD COUNT 19.5 TH/MM3 (4.0-11.0)
[2017-09-01] MEDS: PROPOFOL 1000 MG/100 ML INJ 100 ML IV PRN ×2 (18:11→21:14)
[2017-09-01 18:37] LABS: ALBUMIN 1.8 GM/DL (3.4-5.0); ALKALINE PHOSPHATASE 168 U/L (45-117); ALT (GPT) 75 U/L (12-78); AST (GOT) 68 U/L (15-37); BLOOD UREA NITROGEN 34 MG/DL (7-18); CALCIUM 7.1 MG/DL (8.5-10.1); CALCIUM-PROTEIN CORRECTED 8.5 MG/DL (8.5-10.1); CHLORIDE 112 MEQ/L (98-107); CREATININE 0.62 MG/DL (0.60-1.30); GLOMERULAR FILTRATION RATE 130 ML/MIN (>89); GLUCOSE,RANDOM 235 MG/DL (74-106); SODIUM (NA) 149 MEQ/L (136-145); TOTAL BILIRUBIN ADULT 0.3 MG/DL (0.2-1.0); TOTAL PROTEIN 4.6 GM/DL (6.4-8.2); TROPONIN I 0.39 NG/ML (0.02-0.05)
--- NOTE | 2017-09-01 19:13 | EKG ---
Date Performed: 09/01/2017 Time Performed: 18:03:48 PTAGE: 66 years EKG: Sinus rhythm WITH SHORT SD INTERVAL INDETERMINATE AXIS RIGHT BUNDLE BRANCH BLOCK NONSPECIFIC LATERAL ST/T ABNORMA LITY ABNORMAL ECG PREVIOUS TRACING : 08/22/2017 12.11 No change from previous tracing noted. DOCTOR: Rich Gary Interpretating Date/Time 09/01/2017 19:12:23
[2017-09-01] MEDS: NOREPINEPHRINE 4 MG/D5W 250 ML IV PRN (19:15)
[2017-09-01] MEDS ORDERED: CHLORHEXIDINE GLUCONATE 2 % 1 PACK (2 CLOTHS)(extra cloths) TOPICAL PRN (21:00)
[2017-09-01] MEDS: ATORVASTATIN 40 MG TAB PO SCH (21:00)
[2017-09-01] MEDS: methylPREDNISolone SOD SUCC 125 MG/2 ML VIAL IV PUSH SCH (21:14)
[2017-09-01] MEDS: fentaNYL DRIP 250 ML IV PRN (21:23)
[2017-09-02] VITALS (92 sets, daily range): BP systolic 78–167; BP diastolic 48–94; PULSE 78–112; RESP 14–36; TEMP 97.3–98.9; O2SAT 99–100
[2017-09-02] MEDS: metroNIDAZOLE 500 MG INJ 100 ML IV SCH ×3 (01:00→18:58)
[2017-09-02] MEDS: CHLORHEXIDINE GLUCONATE 2 % 1 PACK (2 CLOTHS) TOP SCH (03:36)
[2017-09-02] MEDS: LINEZOLID 600 MG PREMIX 300 ML IV SCH ×2 (03:36→18:57)
[2017-09-02] MEDS: INSULIN ASPART SUPPLEMENTAL SCALE SQ SCH ×6 (03:36→20:27)
[2017-09-02] MEDS: ISOSORBIDE MONONITRATE 60 MG CR TAB (IMDUR) PO SCH (03:37)
[2017-09-02] MEDS: CHLORHEXIDINE GLUCONATE 2 % 1 PACK (2 CLOTHS)(taper/protocol) TOPICAL SCH (03:37)
[2017-09-02] MEDS: METOPROLOL TARTRATE 50 MG TAB PO SCH ×4 (03:38→20:28)
[2017-09-02] MEDS: NOREPINEPHRINE 4 MG/D5W 250 ML IV PRN ×2 (04:14→14:17)
[2017-09-02] MEDS: fentaNYL DRIP 250 ML IV PRN ×3 (04:14→23:40)
[2017-09-02] MEDS: PANTOPRAZOLE SODIUM 40 MG VIAL IV PUSH SCH ×2 (04:14→18:58)
[2017-09-02 05:26] LABS: HEMATOCRIT 23.3 % (39.0-51.0); HEMOGLOBIN 7.5 GM/DL (13.0-17.0); MEAN CELL VOLUME 94.3 FL (80.0-100.0); MEAN CORPUSCULAR HEMOGLOBIN 30.3 PG (27.0-34.0); MEAN CORPUSCULAR HGB CONC 32.1 % (32.0-36.0); MEAN PLATELET VOLUME 9.6 FL (7.0-11.0); PLATELET COUNT 152 TH/MM3 (150-450); RED BLOOD COUNT 2.47 MIL/MM3 (4.50-5.90); RED CELL DISTRIBUTION WIDTH 19.1 % (11.6-17.2)
[2017-09-02 05:53] LABS: BICARBONATE 27.8 MEQ/L (21.0-32.0); BLOOD UREA NITROGEN 35 MG/DL (7-18); CALCIUM 7.3 MG/DL (8.5-10.1); CHLORIDE 111 MEQ/L (98-107); GLOMERULAR FILTRATION RATE 113 ML/MIN (>89); GLUCOSE,RANDOM 266 MG/DL (74-106); SODIUM (NA) 147 MEQ/L (136-145); TROPONIN I 0.46 NG/ML (0.02-0.05)
--- NOTE | 2017-09-02 06:12 | RADRPT ---
EXAM DATE: 09/02/2017 6:06 AM EDT AGE/SEX: 66 years / Male INDICATIONS: Dobbhoff tube placement. CLINICAL DATA: This is the patient's subsequent encounter. Patient reports that signs and symptoms h ave been present for 1 week and indicates a pain score of Nonresponsive. MEDICAL/SURGICAL HISTORY: None. CABG. COMPARISON: [facility] [place], 09/01/2017. . FINDINGS: The lungs are clear without infiltrate, nodule, or mass. There is no appreciable pleural effusion for technique. Heart and mediastinum are unremarkable. Lines and tubes have not changed. CONCLUSION: No acute cardiopulmonary disease. Electronically signed by: Teto Srivastava MD 09/02/2017 6:11 AM EDT
[2017-09-02 06:36] LABS: CALCIUM-PROTEIN CORRECTED 8.7 MG/DL (8.5-10.1); TOTAL PROTEIN 4.7 GM/DL (6.4-8.2)
[2017-09-02] MEDS: RESP: BUDESONIDE 0.5 MG/2 ML NEB NEB SCH ×2 (07:41→19:56)
[2017-09-02] MEDS ORDERED: SODIUM CHLOR 0.9% 250 ML INJ 250 ML IV ONE (07:45)
[2017-09-02] MEDS: CHLORHEXIDINE 0.12% (ORAL KIT) 15 ML CUP MT SCH ×4 (08:00→20:00)
--- NOTE | 2017-09-02 08:05 | HHI.CCPN ---
Subjective Remarks/Hospital Course 66-year-old male who was brought to the ER after he developed shortness of breath and altered mental status. At correction he was placed on nasal cannula 2 L because of his history of COPD as he uses it off and on. EMS was called when patient developed agonal respirations with O2 sats in the low 80s on their arrival with pink frothy sputum. Patient was intubated in the field after receiving etomidate and Versed. His systolic blood pressure was 190s following intubation and dropped to the 60 systolic range and he was started on dopamine in the field by EMS. He was brought to the ER at [place] and noted to have elevated troponin on his admitting labs. He was accepted for admission by critical care medicine service. He underwent a CT chest to evaluate for PE which was negative for PE however did show severe emphysematous changes with groundglass opacities. History is significantly limited by the fact that he is intubated. When I evaluated the patient he was sedated, orally intubated on mechanical ventilation. History was obtained by reviewing records. SUBJ 08/14/17: Remains intubated sedated, a CPAP was attempted but patient failed almost immediately with severe tachypnea. Continues to have bilateral expiratory wheezing and diminished air entry. Initial troponin was 3.18 now down trending 08/15/17: Patient remains intubated sedated with Versed and fentanyl. On sedation hold wakes up easily follows commands. On attempted CPAP patient became tachypneic with labored breathing using accessory muscles. Not ready for extubation. Pseudomonas growing in sputum. Increase Azactam to 2 g IV every 8 hours 08/16/17: Tolerating CPAP trials better today. Sputum culture growing Pseudomonas pansensitive. Will attempt to extubate with BiPAP use if needed 08/17/17: Reintubated yesterday evening following severe respiratory distress and severe wheezing. Currently remains sedated on vent support. Persistent wheezing. 08/18: Remains intubated sedated. Will initiate CPAP trials again. Patient has severe emphysema and will be difficult to wean to extubate. Wheezing persists. 08/19: Remains sedated, orally intubated on mechanical ventilation. Significant bloody respiratory secretions being suctioned from ET tube. On heparin for anticoagulation. Will hold Coumadin. 08/20: Sedated, arousable, orally intubated on mechanical ventilation. Failing CPAP trials. Heparin held yesterday due to increasing bloody respiratory secretions. 08/21: Remains sedated wakes up easily. Failed CPAP trial immediately today due to tachypnea and respiratory distress. No significant bloody secretions. Chest x-ray was clear. I discussed briefly with daughter. Poly Salcedo about possibility of trach. She needs more time to decide and needs time to discuss with family. I have consulted palliative care to address goals of care. Vent day 9 today. With his some advanced emphysema it will be difficult to wean him off the ventilator without tracheostomy 08/22: Patient is more critical becoming more septic. White count yesterday was 27.5. Today he spiked fever 101.3, tachycardic heart rate in 120s borderline hypotensive.. Chest x-ray shows developing left base infiltrate. Will continue cefepime panculture ordered. Vancomycin 1.25 g 1 and pharmacy to dose. Normal saline bolus 2 L ordered. 08/23: T-max 100.0. Hemoglobin downtrending now 7.2. Patient continues to be borderline hypotensive, monitor Hgb. Patient was tentatively scheduled for percutaneous tracheostomy this a.m. however unable to obtain consent from family members. Sodium level starting to downtrend with addition of free water flushes. 08/24: Hemodynamically stable throughout the night. Transfusion 1 unit of packed cells placed on hold with cancellation percutaneous tracheostomy due to lack of consent. H&H pending this afternoon, will transfuse for hemoglobin less than 7. Patient awake continuing on CPAP for greater than 4 hours today. 08/25: more awake. passed SBT. discussion with family and patient: he would want to be re-intubated and pursue tracheostomy if he fails again. 08/26: remained extubated. denies complaints. high risk for reintubation. wants aggressive care and tracheostomy if re-intubated. 09/01: Critical care reconsulted for worsening respiratory status. Patient was transferred to the ICU from the floor due to increasing O2 requirement and placed on a nonrebreather facemask. He was reportedly tachypneic using accessory muscles of respiration. There was some concern regarding aspiration. I evaluated the patient following his arrival to the ICU. He was breathing in the 30s using accessory muscles of respiration on a nonrebreather facemask. He is awake however not really able to give me details of history due to respiratory distress. Patient will be placed on BiPAP and Precedex in order to avoid intubation. He does have significantly advanced COPD and recently completed a course of antibiotics. Will restart empiric antibiotics with Zyvox/ Levaquin/Flagyl IV. 09/02: Patient was intubated yesterday(09/01) for worsening respiratory distress despite BiPAP and placed on mechanical ventilation. Remains sedated, orally intubated on mechanical ventilation. On Levophed for pressor support. Hemoglobin 7.5 this morning. 2 units PRBCs ordered to be transfused. Borderline elevated troponin noted. Objective Vital Signs Date Time Temp Pulse Resp B/P (MAP) Pulse Ox O2 Delivery O2 Flow Rate FiO2 09/02/17 04:14 109 115/58 09/02/17 04:12 100 40 09/02/17 04:00 97.3 18 09/01/17 19:00 Mechanical Ventilator 09/01/17 08:23 2.00 Intake and Output 09/02/17 09/02/17 09/03/17 08:00 16:00 00:00 Intake Total 1071 ml Output Total 575 ml Balance 496 ml Result Diagram: 09/02/17 0510 09/02/17 0510 Other Results Laboratory Tests Test 09/01/17 12:30 09/01/17 18:40 Blood Gas Puncture Site RT RADIAL RT RADIAL Blood Gas Patient Temperature 98.6 98.6 Blood Gas HCO3 30 mmol/L (22-26) 28 mmol/L (22-26) Blood Gas Base Excess 5.9 mmol/L (-2-2) 4.1 mmol/L (-2-2) Blood Gas Oxygen Saturation 87 % (90-100) 97 % (90-100) Arterial Blood pH 7.47 (7.380-7.420) 7.46 (7.380-7.420) Arterial Blood Partial Pressure CO2 41 mmHg (38-42) 40 mmHg (38-42) Arterial Blood Partial Pressure O2 56 mmHg (61-120) 480 mmHg (61-120) Arterial Blood Oxygen Content 10.4 Vol % (12.0-20.0) 11.9 Vol % (12.0-20.0) Arterial Blood Carboxyhemoglobin 2.3 % (0-4) 1.5 % (0-4) Arterial Blood Methemoglobin 0.9 % (0-2) 1.4 % (0-2) Blood Gas Hemoglobin 8.5 G/DL (12.0-16.0) 7.8 G/DL (12.0-16.0) Oxygen Delivery Device NASAL CANNULA VENTILATOR Blood Gas Liter Flow 4 L/M Blood Gas Ventilator Setting Blood Gas Inspired Oxygen 100 % Imaging Last Impressions Chest X-Ray 08/23/17 0600 Signed Impressions: Service Date/Time: Wednesday, August 23, 2017 04:23 - CONCLUSION: Clear lungs. Ricki Metzger Jr., MD CT Angiography 08/13/17 0000 Signed Impressions: Service Date/Time: Sunday, August 13, 2017 07:25 - CONCLUSION: 1. No CT evidence for pulmonary embolism as questioned. 2. Moderate to severe upper lobe predominant centrilobular emphysema. 3. Patchy bibasilar groundglass opacities likely reflecting atelectasis although differential considerations include aspiration. 4. Multiple 4-6mm bilateral groundglass and solid nodules, likely infectious/inflammatory. Recommend followup CT examination in approximately 6 months per 2017 Fleischner criteria (6mm nodule). Steve Barajas MD Last Impressions Chest X-Ray 08/13/17 0414 Signed Impressions: Service Date/Time: Sunday, August 13, 2017 04:28 - CONCLUSION: Lungs are grossly clear. ET tube in good position. Abel Cannon MD CT Angiography 08/13/17 0000 Signed Impressions: Service Date/Time: Sunday, August 13, 2017 07:25 - CONCLUSION: 1. No CT evidence for pulmonary embolism as questioned. 2. Moderate to severe upper lobe predominant centrilobular emphysema. 3. Patchy bibasilar groundglass opacities likely reflecting atelectasis although differential considerations include aspiration. 4. Multiple 4-6mm bilateral groundglass and solid nodules, likely infectious/inflammatory. Recommend followup CT examination in approximately 6 months per 2017 Fleischner criteria (6mm nodule). Steve Barajas MD Objective Remarks GEN: middle-aged male who appears much older than stated age, sedated, orally intubated on mechanical ventilation HEENT: Pallor present, no icterus, tongue/ mucosa moist. Neck: No JVD Chest/Pulm: Orally intubated on mechanical ventilation, good air entry bilaterally though decreased at bases, scattered rhonchi, no wheezing or crackles. CVS: S1-S2 regular, no gallop or murmur GI/abdomen: soft, nontender, no guarding. Extremities: warm bilaterally, 2+ peripheral edema bilateral upper extremity edema. Left lower extremity status post BKA Neuro: Sedated, arousable, orally intubated, moving all extremities. A/P Assessment and Plan Assessment: Acute on chronic hypoxic and hypercarbic respiratory failure Acute metabolic encephalopathy Severe sepsis Acute COPD exacerbation NSTEMI Pseudomonas pneumonia Suspected aspiration MRSA Ventilator associated pneumonia Advanced COPD/emphysema Anemia CAD History of cardiomyopathy Diabetes Hyperlipidemia Hypertension Paroxysmal atrial fibrillation. Peripheral vascular disease Plan: Neuro: - Follow neuro status. -Sedation with propofol/fentanyl gtt. Will add Versed gtt. and try to titrate off propofol in view of hypotension. -Daily sedation vacation Cardiovascular: -Was on Isosorbide mononitrate, atorvastatin, lasix per Dr. Gary. Holding Isosorbide, Lasix and lisinopril due to increasing BUN, hypotension -Hold I -Holding heparin and Coumadin since 08/19 in view of hemoptysis currently. Continue Lovenox 40 mg sq daily -Continue aspirin. Cardiology Dr. Gary. 2D echo EF 50% - Borderline troponin elevation on 09/02 -Dr. Gary recommends nuclear stress test when able to tolerate. Pulmonary: - patient and family goals as of my discussion 08/25: aggressive care including tracheostomy if he gets reintubated. -Failed extubation 08/16/2017, reintubated approximately after 6-8 hours. Total vent day 13 -Patient will need prolonged ventilatory support and will need trach due to severe emphysema, and pneumonia and sepsis -CT of the chest showed severe emphysema and pneumonia -Starting IV Solu-Medrol, continue bronchodilators inhaled budesonide -Starting antibiotics on 09/01 due to worsening respiratory status with question of aspiration. Ordered Zyvox/Levaquin/Flagyl IV -Failed BiPAP so intubated and placed on mechanical ventilation on 09/01 GI/liver: -N.p.o. till improvement of neurologic status. Renal/: -Lasix daily. Hold Aldactone. -Strict intake output, monitor and replete electrodes, follow BUN/creatinine. ID: -Sputum culture growing pansensitive pseudomonas 08/13/17, MRSA on 08/22 -Ordered empiric antibiotic coverage with IV Zyvox/Levaquin/Flagyl -Reconsulted ID to manage abx. Endocrine: -Watch for hypoglycemia, SSI for glycemic control if needed. -Currently on Levemir every 12, SSI Heme: -Follow CBC and coags. Holding heparin and Coumadin in view of hemoptysis. -Transfuse 2 units PRBCs in view of non-ST elevation MT to bring hemoglobin up to 9 g percent Prophylaxis: -Pepcid/SCDs. Lovenox 40 mg subcutaneously (Full anticoagulation held due to hemoptysis) and will continue prophylactic dose provided hemoptysis does not recur or worsen. 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 Condition critical. Time spent on critical care excluding procedures 40 minute Lester Crawford MD September 02, 2017 08:05
[2017-09-02] MEDS ORDERED: MIDAZOLAM HCL 2 MG/2 ML VIAL IV PUSH ONE (08:30)
[2017-09-02] MEDS ORDERED: MIDAZOLAM 100 MG/100 ML INJ 100 ML IV PRN (08:30)
[2017-09-02] MEDS: SODIUM CHLORIDE 0.9% FLUSH 10 ML FLUSH IV FLUSH SCH ×3 (08:39→20:29)
[2017-09-02] MEDS: methylPREDNISolone SOD SUCC 125 MG/2 ML VIAL IV PUSH SCH ×2 (08:44→20:28)
[2017-09-02] MEDS: FUROSEMIDE 20 MG/2 ML VIAL IV PUSH SCH (08:44)
[2017-09-02] MEDS: INSULIN DETEMIR 100 UNITS/ML VIAL SQ SCH ×2 (09:00→20:27)
[2017-09-02] MEDS: SODIUM CHLOR 0.9% 1000 ML INJ 1,000 ML IV SCH (10:15)
[2017-09-02] MEDS: MIDAZOLAM 50 MG/NS 50 ML DRIP Premix IV PRN (10:36)
--- NOTE | 2017-09-02 10:37 | PD.CARD.PN ---
Subjective Subjective Remarks Intubated. Sedated. Objective Medications Item Value Date Time Norepinephrine 250 ml @ 7.5 mls/hr 09/01/17 2300 Bitartrate TITRATE PRN/IV 09/02/17 0414 Furosemide 20 mg 08/31/17 1000 (Lasix Inj) DAILY/IV PUSH 09/02/17 0844 Isosorbide 60 mg 08/27/17 0700 Mononitrate DAILY@07/PO (Imdur) Metoprolol 50 mg 08/26/17 2200 Tartrate Q8HR/PO (Lopressor) Enoxaparin Sodium 40 mg 08/20/17 1000 (Lovenox Inj) Q24H/SQ 09/01/17 0828 Atorvastatin 40 mg 08/15/17 2100 Calcium HS/PO (Lipitor) Aspirin 81 mg 08/13/17 0900 (Aspirin Chew) DAILY/CHEW 09/01/17 0827 Current Medications Medications (Trade) Dose Ordered Sig/Lindsey Route Start Time Stop Time Status Last Admin (D50w (Vial) Inj) 50 ml UNSCH PRN IV PUSH 08/13/17 05:30 08/26/17 04:18 (Glucagon Inj) 1 mg UNSCH PRN OTHER 08/13/17 05:30 (Brethine Inj) 1 mg UNSCH PRN SQ 08/13/17 06:15 (NS Flush) 2 ml UNSCH PRN IV FLUSH 08/13/17 07:00 09/01/17 05:21 (NS Flush) 2 ml BID IV FLUSH 08/13/17 09:00 09/02/17 08:39 (Tylenol) 650 mg Q6H PRN PO 08/13/17 07:00 08/30/17 08:03 (Peridex 0.12% Liq) 15 ml BID@08,20 MT 08/13/17 08:00 09/02/17 08:00 (Pepcid) 20 mg BID TUBE 08/13/17 09:00 09/01/17 08:28 ([facility]) 1 Q361D XX 08/13/17 07:00 08/13/17 07:00 (Chlorhexidine 2% Cloth) 3 pack Taper DAILY@04 TOP 08/14/17 04:00 08/10/18 03:59 09/02/17 03:36 (Chlorhexidine 2% Cloth) 3 pack UNSCH PRN TOP 08/13/17 07:00 (Aspirin Chew) 81 mg DAILY CHEW 08/13/17 09:00 09/01/17 08:27 (Pulmicort Respule Neb) 0.5 mg Q12HR NEB NEB 08/14/17 14:00 09/02/17 07:41 (Prinivil) 10 mg DAILY PO 08/15/17 09:00 Future Hold 08/21/17 07:56 (Lipitor) 40 mg HS PO 08/15/17 21:00 08/31/17 20:40 (Coumadin) 4 mg DAILY@16 PO 08/18/17 16:00 Future Hold 08/18/17 17:02 (Lovenox Inj) 40 mg Q24H SQ 08/20/17 10:00 Future hold 09/01/17 08:28 (Lopressor Inj) 2.5 mg Q6H PRN IV PUSH 08/22/17 08:00 08/29/17 09:37 (NovoLOG SUPPLEMENTAL SCALE) 1 Q4HR SQ 08/22/17 09:30 09/01/17 12:41 (Imdur) 60 mg DAILY@07 PO 08/27/17 07:00 08/29/17 05:09 (Lopressor) 50 mg Q8HR PO 08/26/17 22:00 09/01/17 05:20 (Duoneb Neb) 1 ampule Q2HR NEB PRN NEB 08/27/17 01:00 09/01/17 20:44 (NS Flush) DAILY IV FLUSH 08/28/17 09:00 09/02/17 08:39 (NS Flush) UNSCH PRN IV FLUSH 08/27/17 15:45 (Protonix Inj) 40 mg Q12H IV PUSH 08/28/17 06:00 09/02/17 04:14 (Levemir Inj) 15 units DAILY SQ 08/31/17 09:00 09/01/17 08:30 (Levsin Liq) 0.125 mg Q4H PRN PO 08/30/17 09:30 (Levemir Inj) 10 units HS SQ 08/31/17 21:00 08/31/17 20:04 (Lasix Inj) 20 mg DAILY IV PUSH 08/31/17 10:00 09/02/17 08:44 (SoluMEDROL INJ) 80 mg Q12HR IV PUSH 09/01/17 21:00 09/02/17 08:44 Dexmedetomidine HCl 200 mcg/ Sodium Chloride 52 ml @ 4.17 mls/hr TITRATE PRN IV 09/01/17 14:00 Sodium Chloride 1,000 ml @ 50 mls/hr Q20H IV 09/01/17 14:15 09/01/17 14:17 Linezolid 300 ml @ 300 mls/hr Q12H IV 09/01/17 16:00 09/02/17 03:36 Levofloxacin/ Dextrose 150 ml @ 100 mls/hr Q24H IV 09/01/17 15:00 09/01/17 15:41 Metronidazole 100 ml @ 100 mls/hr Q8H IV 09/01/17 17:00 09/02/17 08:46 (Peridex 0.12% Liq) 15 ml BID@08,20 MT 09/01/17 20:00 09/02/17 08:00 Propofol 100 ml @ 2.406 mls/ hr TITRATE PRN IV 09/01/17 16:30 09/01/17 21:14 Fentanyl Citrate 250 ml @ 5 mls/hr TITRATE PRN IV 09/01/17 16:30 09/02/17 04:14 ([facility] Information) Patient in critical care unit? Ass... Q361D .XX 09/01/17 21:00 09/01/17 21:00 (Chlorhexidine 2% Cloth) 3 pack DAILY@04 TOPICAL 09/02/17 04:00 09/06/17 04:01 (Chlorhexidine 2% Cloth) 3 pack UNSCH PRN TOPICAL 09/01/17 21:00 09/06/17 20:46 Norepinephrine Bitartrate 250 ml @ 7.5 mls/hr TITRATE PRN IV 09/01/17 23:00 09/02/17 04:14 Sodium Chloride 250 ml @ 15 mls/hr ONCE ONCE IV 09/02/17 07:45 09/03/17 00:24 09/02/17 08:46 Midazolam HCl 50 ml @ 2 mls/hr TITRATE PRN IV 09/02/17 10:00 Vital Signs / I&O Vital Signs Date Time Temp Pulse Resp B/P (MAP) Pulse Ox O2 Delivery O2 Flow Rate FiO2 09/02/17 07:42 40 09/02/17 07:36 100 40 09/02/17 04:14 109 115/58 09/02/17 04:12 100 40 09/02/17 04:00 97.3 108 18 115/58 (77) 100 09/02/17 00:02 100 40 09/02/17 00:00 97.8 96 15 118/67 (84) 100 09/01/17 20:45 100 40 09/01/17 20:00 98.0 96 18 108/65 (79) 100 09/01/17 19:15 95 106/62 09/01/17 19:00 Mechanical Ventilator 09/01/17 18:00 108 09/01/17 16:40 100 100 09/01/17 16:00 99.1 129 42 168/92 (117) 98 09/01/17 16:00 129 09/01/17 14:39 100 40 I/O 09/01/17 09/01/17 09/01/17 09/02/17 09/02/17 09/02/17 07:00 15:00 23:00 07:00 15:00 23:00 Intake Total 577 ml 1150 ml 1071 ml Output Total 1400 ml 800 ml 575 ml Balance -823 ml 350 ml 496 ml Intake Oral 0 ml 0 ml 0 ml IV Total 1150 ml 1011 ml Tube Feeding 547 ml Tube Irrigant 30 ml Other 60 ml Output Urine Total 1400 ml 800 ml 500 ml Stool Total 75 ml # Bowel Movements 0 Physical Exam GENERAL: Well developed, well nourished. Intubated. Sedated. HEENT: Jugular venous pressure is normal. CHEST: Clear lungs anteriorly. CARDIAC: Regular rate and rhythm without S3, S4, or murmur. ABDOMEN: Soft, no hepatosplenomegaly. Bowel sounds present. EXTREMITIES: No edema on the right. Status post left BKA. Laboratory Laboratory Tests Test 09/01/17 12:30 09/01/17 17:13 09/01/17 17:46 09/01/17 18:40 Blood Gas Puncture Site RT RADIAL RT RADIAL Blood Gas Patient Temperature 98.6 98.6 Blood Gas HCO3 30 mmol/L 28 mmol/L Blood Gas Base Excess 5.9 mmol/L 4.1 mmol/L Blood Gas Oxygen Saturation 87 % 97 % Arterial Blood pH 7.47 7.46 Arterial Blood Partial Pressure CO2 41 mmHg 40 mmHg Arterial Blood Partial Pressure O2 56 mmHg 480 mmHg Arterial Blood Oxygen Content 10.4 Vol % 11.9 Vol % Arterial Blood Carboxyhemoglobin 2.3 % 1.5 % Arterial Blood Methemoglobin 0.9 % 1.4 % Blood Gas Hemoglobin 8.5 G/DL 7.8 G/DL Oxygen Delivery Device NASAL CANNULA VENTILATOR Blood Gas Liter Flow 4 L/M Nasal Screen MRSA (PCR) MRSA DETECTED White Blood Count 19.5 TH/MM3 Red Blood Count 2.52 MIL/MM3 Hemoglobin 7.5 GM/DL Hematocrit 24.0 % Mean Corpuscular Volume 95.3 FL Mean Corpuscular Hemoglobin 29.7 PG Mean Corpuscular Hemoglobin Concent 31.2 % Red Cell Distribution Width 18.7 % Platelet Count 184 TH/MM3 Mean Platelet Volume 9.7 FL Blood Urea Nitrogen 34 MG/DL Creatinine 0.62 MG/DL Random Glucose 235 MG/DL Total Protein 4.6 GM/DL Albumin 1.8 GM/DL Calcium Level 7.1 MG/DL Alkaline Phosphatase 168 U/L Aspartate Amino Transf (AST/SGOT) 68 U/L Alanine Aminotransferase (ALT/SGPT) 75 U/L Total Bilirubin 0.3 MG/DL Sodium Level 149 MEQ/L Potassium Level 4.6 MEQ/L Chloride Level 112 MEQ/L Carbon Dioxide Level 31.0 MEQ/L Anion Gap 6 MEQ/L Estimat Glomerular Filtration Rate 130 ML/MIN Lactic Acid Level 1.8 mmol/L Protein Corrected Calcium 8.5 MG/DL Total Creatine Kinase 231 U/L Creatine Kinase MB 11.4 NG/ML Troponin I 0.39 NG/ML B-Type Natriuretic Peptide 314 PG/ML Blood Gas Ventilator Setting Blood Gas Inspired Oxygen 100 % Test 09/02/17 05:10 White Blood Count 13.0 TH/MM3 Red Blood Count 2.47 MIL/MM3 Hemoglobin 7.5 GM/DL Hematocrit 23.3 % Mean Corpuscular Volume 94.3 FL Mean Corpuscular Hemoglobin 30.3 PG Mean Corpuscular Hemoglobin Concent 32.1 % Red Cell Distribution Width 19.1 % Platelet Count 152 TH/MM3 Mean Platelet Volume 9.6 FL Activated Partial Thromboplast Time 20.2 SEC Blood Urea Nitrogen 35 MG/DL Creatinine 0.70 MG/DL Random Glucose 266 MG/DL Total Protein 4.7 GM/DL Calcium Level 7.3 MG/DL Sodium Level 147 MEQ/L Potassium Level 4.0 MEQ/L Chloride Level 111 MEQ/L Carbon Dioxide Level 27.8 MEQ/L Anion Gap 8 MEQ/L Estimat Glomerular Filtration Rate 113 ML/MIN Protein Corrected Calcium 8.7 MG/DL Total Creatine Kinase 177 U/L Creatine Kinase MB 6.1 NG/ML Troponin I 0.46 NG/ML Imaging Last 24 hours Impressions Chest X-Ray 09/02/17 0000 Signed Impressions: CONCLUSION: No acute cardiopulmonary disease. Assessment and Plan Problem List: (1) CAD (coronary artery disease) ICD Codes: I25.10 - Coronary artery disease Status: Chronic Plan: Now back on ventilatory support. No evidence for CHF by CXR. Possible NSTEMI on admission. Echo technically limited, appears to have normal LV function, EF about 55%. May also have right ventricular hypertrophy with normal RV function. Repeat cardiac enzymes overall negative for LA. Doubt slight troponin level due to acute LA. REC continue metoprolol as BP's tolerate, continue aspirin, oral nitrate patient poor candidate for invasive cardiac evaluation will f/u as needed (2) Cardiomyopathy ICD Codes: I42.9 - Cardiomyopathy, unspecified Status: Resolved Plan: Prior history of EF 25%. No definite acute CHF. Chest x-ray today clear. Echo this admission technically limited, appears to have normal LV function, EF about 55%. REC continue beta allyn, resume JOSEFINA-I if/when possible consider stop Lasix as no evidence for pulmonary edema (3) Paroxysmal atrial fibrillation ICD Codes: I48.0 - Paroxysmal atrial fibrillation Status: Chronic Plan: Poorly documented history of paroxysmal atrial fib. Remains in NSR. Resume anticoagulation (warfarin) when possible. Problem Qualifiers (1) CAD (coronary artery disease): Qualified Codes: I25.119 - Atherosclerotic heart disease of [place] coronary artery with unspecified angina pectoris (2) Cardiomyopathy: Qualified Codes: I42.9 - Cardiomyopathy, unspecified Rich Gary MD September 02, 2017 10:37
[2017-09-02] MEDS: FAMOTIDINE 20 MG TAB TUBE SCH ×2 (11:07→20:28)
[2017-09-02] MEDS: ENOXAPARIN SODIUM 40 MG/0.4 ML SYRINGE SQ SCH (11:08)
[2017-09-02] MEDS: ASPIRIN 81 MG CHEW TAB CHEW SCH (11:08)
--- NOTE | 2017-09-02 11:37 | HHI.PR ---
Subjective Remarks ACUTE DISTRESS LAST NIGHT NOW SEDATED ON VENT SUPPORT Objective Vital Signs Date Time Temp Pulse Resp B/P (MAP) Pulse Ox O2 Delivery O2 Flow Rate FiO2 09/02/17 10:48 98.1 109 18 111/59 100 09/02/17 07:42 40 09/02/17 07:36 100 40 09/02/17 04:14 109 115/58 09/02/17 04:12 100 40 09/02/17 04:00 97.3 108 18 115/58 (77) 100 09/02/17 00:02 100 40 09/02/17 00:00 97.8 96 15 118/67 (84) 100 09/01/17 20:45 100 40 09/01/17 20:00 98.0 96 18 108/65 (79) 100 09/01/17 19:15 95 106/62 09/01/17 19:00 Mechanical Ventilator 09/01/17 18:00 108 09/01/17 16:40 100 100 09/01/17 16:00 99.1 129 42 168/92 (117) 98 09/01/17 16:00 129 09/01/17 14:39 100 40 I/O 09/01/17 09/01/17 09/01/17 09/02/17 09/02/17 09/02/17 07:00 15:00 23:00 07:00 15:00 23:00 Intake Total 577 ml 1150 ml 1071 ml 10 ml Output Total 1400 ml 800 ml 575 ml Balance -823 ml 350 ml 496 ml 10 ml Intake Oral 0 ml 0 ml 0 ml IV Total 1150 ml 1011 ml Tube Feeding 547 ml Blood Product IV Normal Saline Flush 10 ml Tube Irrigant 30 ml Other 60 ml Output Urine Total 1400 ml 800 ml 500 ml Stool Total 75 ml # Bowel Movements 0 Result Diagram: 09/02/17 0510 09/02/17 0510 Objective Remarks GENERAL: SKIN: Warm and dry. HEAD: Atraumatic. Normocephalic. EYES: Pupils equal and round. No scleral icterus. No injection or drainage. ENT: No nasal bleeding or discharge. Mucous membranes pink and moist. NECK: Trachea midline. No JVD. CARDIOVASCULAR: Regular rate and rhythm. RESPIRATORY: No accessory muscle use. Clear to auscultation. Breath sounds equal bilaterally. GASTROINTESTINAL: Abdomen soft, non-tender, nondistended. Hepatic and splenic margins not palpable. MUSCULOSKELETAL: Extremities without clubbing, cyanosis, or edema. No obvious deformities. NEUROLOGICAL: Awake and alert. No obvious cranial nerve deficits. Motor grossly within normal limits. Five out of 5 muscle strength in the arms and legs. Normal speech. PSYCHIATRIC: Appropriate mood and affect; insight and judgment normal. Assessment and Plan Assessment and Plan IMPRESSION RESPIRATORY FAILURE COPD AFIB HTN PVD CAD PLAN VENT SUPPORT BRONCHODILATOR THERAPY WEAN OFF VENT TOLERATED Goran Zimmer MD September 02, 2017 11:37
[2017-09-02] MEDS: LEVOFLOXACIN 750 MG PREMIX INJ 150 ML IV SCH (14:17)
--- NOTE | 2017-09-02 14:54 | HHI.HCPN ---
Reason for visit a. To assist with evaluation and management of symptoms including: dyspnea, pain b. To assist medical decision maker(s) with: better understanding of current medical conditions; weighing benefits/burdens of medical treatment options; making medical treatment decisions. . Subjective/Interval History Mr. Salcedo is a 66yo male admitted with hypoxic respiratory failure. Follow-up visit for symptom management of pain and dyspnea as well as clarification of medical treatment goals. Patient was transferred back to the intensive care unit on secondary to increased oxygen requirements and deteriorating respiratory status. Upon arrival to the ICU, the patient was tachypneic with accessory muscle use on a nonrebreather. He does have significantly advanced COPD and recently completed a course of antibiotics; empiric antibiotics (Zyvox/Levaquin/Flagyl IV) were restarted. He is now back on ventilatory support for the third time this hospitalization; currently sedated on fentanyl and Versed. Requiring pressor support. F/U chest x-ray showed no evidence of acute cardiopulmonary disease. Afebrile. WBC: 13.0 Patient being transfused with 1 unit PRBCs for H/H7./23.3 Sputum culture from 08/22/2017 + MRSA; blood cultures and sputum cultures from 09/01/17 negative to date - restarted on broad-spectrum antibiotics. . Family/friend interactions Spoke to patient's daughter (Poly) via telephone. Questions answered to the best of my ability. Poly states her father has stated he would consent to tracheostomy but only if it was short term and could be reversed. . Advance Directives Living Will: Copy in medical record Advance Directive Specifics Documented care wishes: Living will appears to be completed on April 19, 2014. Document can be viewed in patient's EMR. . Objective Vital Signs Date Time Temp Pulse Resp B/P (MAP) Pulse Ox O2 Delivery O2 Flow Rate FiO2 09/02/17 12:05 100 40 09/02/17 11:20 98.9 110 18 164/94 100 09/02/17 10:48 98.1 109 18 111/59 100 09/02/17 07:42 40 09/02/17 07:36 100 40 09/02/17 04:14 109 115/58 09/02/17 04:12 100 40 09/02/17 04:00 97.3 108 18 115/58 (77) 100 09/02/17 00:02 100 40 09/02/17 00:00 97.8 96 15 118/67 (84) 100 09/01/17 20:45 100 40 09/01/17 20:00 98.0 96 18 108/65 (79) 100 09/01/17 19:15 95 106/62 09/01/17 19:00 Mechanical Ventilator 09/01/17 18:00 108 09/01/17 16:40 100 100 09/01/17 16:00 99.1 129 42 168/92 (117) 98 09/01/17 16:00 129 09/01/17 14:39 100 40 Intake & Output 09/02/17 09/02/17 07:00 19:00 Intake Total 1171 ml 10 ml Output Total 575 ml Balance 596 ml 10 ml Intake Oral 0 ml IV Total 1111 ml Blood Product IV Normal Saline Flush 10 ml Other 60 ml Output Urine Total 500 ml Stool Total 75 ml . Physical Exam CONSTITUTIONAL/GENERAL: This is an adequately nourished, male currently intubated on [facility] vent. TUBES/LINES/DRAINS: CVL, dobbhoff, ETT, Lopez, Rectal tube SKIN: Ecchymoses and abrasions on upper extremities; BUE weepy No wounds seen anteriorly. Skin temperature appropriate. Not diaphoretic. HEAD: Atraumatic. Normocephalic. EYES: Pupils equal and round. No scleral icterus. No injection or drainage. Fundi not examined. ENT: Nose without bleeding or purulent drainage. NECK: Trachea midline. Supple, nontender. No palpable thyroid enlargement or nodularity. CARDIOVASCULAR: Regular rate and rhythm without murmurs, gallops, or rubs. No JVD. Peripheral pulses symmetric. RESPIRATORY/CHEST: Tachypneic. Coarse air exchange. GASTROINTESTINAL: Abdomen soft, non-tender, nondistended. No guarding. Bowel sounds present. Rectal tube with brown, liquid stool GENITOURINARY: Without palpable bladder distension. Indwelling urinary cath MUSCULOSKELETAL: Extremities without clubbing or cyanosis. Left BKA. Hands swollen bilaterally; right foot cool to touch. LYMPHATICS: No palpable cervical or supraclavicular adenopathy. NEUROLOGICAL: Sedated PSYCHIATRIC: Unable to assess given clinical condition . Diagnostic Tests Laboratory Laboratory Tests Test 08/31/17 05:20 09/01/17 05:29 09/01/17 12:30 09/01/17 17:13 White Blood Count 17.0 TH/MM3 (4.0-11.0) 14.6 TH/MM3 (4.0-11.0) Red Blood Count 2.69 MIL/MM3 (4.50-5.90) 2.68 MIL/MM3 (4.50-5.90) Hemoglobin 8.0 GM/DL (13.0-17.0) 8.1 GM/DL (13.0-17.0) Hematocrit 25.4 % (39.0-51.0) 25.1 % (39.0-51.0) Mean Corpuscular Volume 94.3 FL (80.0-100.0) 93.9 FL (80.0-100.0) Mean Corpuscular Hemoglobin 29.9 PG (27.0-34.0) 30.2 PG (27.0-34.0) Mean Corpuscular Hemoglobin Concent 31.7 % (32.0-36.0) 32.2 % (32.0-36.0) Red Cell Distribution Width 18.8 % (11.6-17.2) 18.7 % (11.6-17.2) Platelet Count 158 TH/MM3 (150-450) 153 TH/MM3 (150-450) Mean Platelet Volume 10.3 FL (7.0-11.0) 9.7 FL (7.0-11.0) Activated Partial Thromboplast Time 19.6 SEC (24.3-30.1) 19.8 SEC (24.3-30.1) Blood Urea Nitrogen 24 MG/DL (7-18) 27 MG/DL (7-18) Creatinine 0.44 MG/DL (0.60-1.30) 0.59 MG/DL (0.60-1.30) Random Glucose 268 MG/DL (74-106) 175 MG/DL (74-106) Calcium Level 7.7 MG/DL (8.5-10.1) 7.5 MG/DL (8.5-10.1) Sodium Level 143 MEQ/L (136-145) 148 MEQ/L (136-145) Potassium Level 4.5 MEQ/L (3.5-5.1) 4.2 MEQ/L (3.5-5.1) Chloride Level 106 MEQ/L (98-107) 109 MEQ/L (98-107) Carbon Dioxide Level 33.0 MEQ/L (21.0-32.0) 31.8 MEQ/L (21.0-32.0) Anion Gap 4 MEQ/L (5-15) 7 MEQ/L (5-15) Estimat Glomerular Filtration Rate 193 ML/MIN (>89) 138 ML/MIN (>89) Blood Gas Puncture Site RT RADIAL Blood Gas Patient Temperature 98.6 Blood Gas HCO3 30 mmol/L (22-26) Blood Gas Base Excess 5.9 mmol/L (-2-2) Blood Gas Oxygen Saturation 87 % (90-100) Arterial Blood pH 7.47 (7.380-7.420) Arterial Blood Partial Pressure CO2 41 mmHg (38-42) Arterial Blood Partial Pressure O2 56 mmHg (61-120) Arterial Blood Oxygen Content 10.4 Vol % (12.0-20.0) Arterial Blood Carboxyhemoglobin 2.3 % (0-4) Arterial Blood Methemoglobin 0.9 % (0-2) Blood Gas Hemoglobin 8.5 G/DL (12.0-16.0) Oxygen Delivery Device NASAL CANNULA Blood Gas Liter Flow 4 L/M Nasal Screen MRSA (PCR) MRSA DETECTED (NOT DETECT) Test 09/01/17 17:46 09/01/17 18:40 09/02/17 05:10 White Blood Count 19.5 TH/MM3 (4.0-11.0) 13.0 TH/MM3 (4.0-11.0) Red Blood Count 2.52 MIL/MM3 (4.50-5.90) 2.47 MIL/MM3 (4.50-5.90) Hemoglobin 7.5 GM/DL (13.0-17.0) 7.5 GM/DL (13.0-17.0) Hematocrit 24.0 % (39.0-51.0) 23.3 % (39.0-51.0) Mean Corpuscular Volume 95.3 FL (80.0-100.0) 94.3 FL (80.0-100.0) Mean Corpuscular Hemoglobin 29.7 PG (27.0-34.0) 30.3 PG (27.0-34.0) Mean Corpuscular Hemoglobin Concent 31.2 % (32.0-36.0) 32.1 % (32.0-36.0) Red Cell Distribution Width 18.7 % (11.6-17.2) 19.1 % (11.6-17.2) Platelet Count 184 TH/MM3 (150-450) 152 TH/MM3 (150-450) Mean Platelet Volume 9.7 FL (7.0-11.0) 9.6 FL (7.0-11.0) Blood Urea Nitrogen 34 MG/DL (7-18) 35 MG/DL (7-18) Creatinine 0.62 MG/DL (0.60-1.30) 0.70 MG/DL (0.60-1.30) Random Glucose 235 MG/DL (74-106) 266 MG/DL (74-106) Total Protein 4.6 GM/DL (6.4-8.2) 4.7 GM/DL (6.4-8.2) Albumin 1.8 GM/DL (3.4-5.0) Calcium Level 7.1 MG/DL (8.5-10.1) 7.3 MG/DL (8.5-10.1) Alkaline Phosphatase 168 U/L (45-117) Aspartate Amino Transf (AST/SGOT) 68 U/L (15-37) Alanine Aminotransferase (ALT/SGPT) 75 U/L (12-78) Total Bilirubin 0.3 MG/DL (0.2-1.0) Sodium Level 149 MEQ/L (136-145) 147 MEQ/L (136-145) Potassium Level 4.6 MEQ/L (3.5-5.1) 4.0 MEQ/L (3.5-5.1) Chloride Level 112 MEQ/L (98-107) 111 MEQ/L (98-107) Carbon Dioxide Level 31.0 MEQ/L (21.0-32.0) 27.8 MEQ/L (21.0-32.0) Anion Gap 6 MEQ/L (5-15) 8 MEQ/L (5-15) Estimat Glomerular Filtration Rate 130 ML/MIN (>89) 113 ML/MIN (>89) Lactic Acid Level 1.8 mmol/L (0.4-2.0) Protein Corrected Calcium 8.5 MG/DL (8.5-10.1) 8.7 MG/DL (8.5-10.1) Total Creatine Kinase 231 U/L (39-308) 177 U/L (39-308) Creatine Kinase MB 11.4 NG/ML (0.5-3.6) 6.1 NG/ML (0.5-3.6) Troponin I 0.39 NG/ML (0.02-0.05) 0.46 NG/ML (0.02-0.05) B-Type Natriuretic Peptide 314 PG/ML (0-100) Blood Gas Puncture Site RT RADIAL Blood Gas Patient Temperature 98.6 Blood Gas HCO3 28 mmol/L (22-26) Blood Gas Base Excess 4.1 mmol/L (-2-2) Blood Gas Oxygen Saturation 97 % (90-100) Arterial Blood pH 7.46 (7.380-7.420) Arterial Blood Partial Pressure CO2 40 mmHg (38-42) Arterial Blood Partial Pressure O2 480 mmHg (61-120) Arterial Blood Oxygen Content 11.9 Vol % (12.0-20.0) Arterial Blood Carboxyhemoglobin 1.5 % (0-4) Arterial Blood Methemoglobin 1.4 % (0-2) Blood Gas Hemoglobin 7.8 G/DL (12.0-16.0) Oxygen Delivery Device VENTILATOR Blood Gas Ventilator Setting Blood Gas Inspired Oxygen 100 % Activated Partial Thromboplast Time 20.2 SEC (24.3-30.1) Result Diagram: 09/02/17 0510 09/02/17 0510 Microbiology Microbiology Date/Time Source Procedure Growth Status 09/01/17 14:40 Blood Peripheral Aerobic Blood Culture - Preliminary NO GROWTH IN 1 DAY Resulted 09/01/17 14:40 Blood Peripheral Anaerobic Blood Culture - Preliminary NO GROWTH IN 1 DAY Resulted 09/01/17 14:35 Blood Peripheral Aerobic Blood Culture - Preliminary NO GROWTH IN 1 DAY Resulted 09/01/17 14:35 Blood Peripheral Anaerobic Blood Culture - Preliminary NO GROWTH IN 1 DAY Resulted 09/01/17 17:13 Sputum Endotracheal Gram Stain - Final Resulted 09/01/17 17:13 Sputum Endotracheal Sputum Culture - Preliminary IMMATURE GROWTH - REINCUBATE Resulted Procedures 08/16/2017: Intubation/reintubation 08/25/2017: Extubation . Assessment and Plan Disease Oriented Problem List: (1) Peripheral vascular disease (2) Pseudomonas pneumonia (3) COPD exacerbation (4) Cardiomyopathy (5) DM type 2 (diabetes mellitus, type 2) (6) CAD (coronary artery disease) (7) COPD (chronic obstructive pulmonary disease) (8) Hyperlipidemia (9) Paroxysmal atrial fibrillation Symptom Scale: (1) Dyspnea 0-10 Scale: Unable to quantify (2) Pain 0-10 Scale: Unable to quantify Pertinent Non-Medical Issues Psychosocial: Patient is originally from [place]. Patient has been for many years. He has 1 adult daughter (Poly) and 2 grand-children. Grandson ( Tristin) and Granddaughter (Deo). Granddaughter (Deo) identifies as male and is to [facility]. Patient's highest education level is eighth grade. 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 Spiritual: Pentecostalism shelbi Legal: Per [place] statutes, in the absence of written advanced directives health care proxy decision making falls to the patient's daughter (Poly). Ethical issues impacting care: No known ethical issues impacting care at this time. . Important Contacts Poly Salcedo, daughter: [phone] Tristin Salcedo, grandson: [phone] Deo Salcedo, granddaughter - identifies as male : [phone] ( to [facility]) Juan Carlos Salcedo, brother: [phone] . Prognosis Patient is a 66 yo male with significant lung disease resulting in 4 hospitalizations in the past 6 months. He is currently vent dependent and unable to tolerate CPAP trails; given his advanced lung disease it will be difficult to wean him off the ventilator without a tracheostomy. Given patient' s complex medical history, he will be high risk for ongoing complications and decline. . Code Status: Full Code Plan * FULL CODE * Decision-making: Patient does NOT have insight or judgment concerning his medical conditions at this time. Per [place] statutes, in the absence of written advanced directives health care proxy decision making falls to the patient's daughter (Poly). * AGGRESSIVE GOALS * Spoke to patient's daughter (Poly) via telephone. Questions answered to the best of my ability. Poly states her father has stated he would consent to tracheostomy but only if it was short term and could be reversed. * Discussed current medical treatment goals with RN (Polly) and buckle and button maker ( Dr. Crawford). * Symptom management: == Dyspnea: Patient admitted with severe dyspnea s/p being intubated in the field. CTA at admission showed no evidence for pulmonary embolism; moderate to severe upper lobe predominant central lobular emphysema; patchy bibasilar ground-glass opacities likely reflecting atelectasis although differential considerations include aspiration; multiple 4-6mm bilateral ground-glass and solid nodules, likely infectious/ inflammatory. Follow-up sputum culture on 08/22/17 positive sign MRSA. Patient was transferred back to the intensive care unit on secondary to increased oxygen requirements and deteriorating respiratory status. Upon arrival to the ICU, the patient was tachypneic with accessory muscle use on a nonrebreather. He does have significantly advanced COPD and recently completed a course of antibiotics; empiric antibiotics (Zyvox/Levaquin/ Flagyl IV) were restarted. He is now back on ventilatory support for the third time this hospitalization. == Pain: Multifactoral. Patient has a known history of chronic back pain, CAD, severe peripheral vascular disease status post left BKA. Additional contributing factors may include invasive lines, immobility etc. Patient denies pain on exam. PRN acetaminophen available. * Positive care will continue to follow this patient throughout his hospitalization to establish stress, assist with symptom management and clarification of medical treatment goals. . Attestation To help prompt me to consider important information that might be impacting today's encounter and assessment, information from prior notes written by myself or my colleagues may have been "brought forward" into today's note. My signature on this note, however, is an attestation that I personally performed the exam, history, and/or decision-making noted today, and, unless otherwise indicated, the interactions with patient, family, and staff as well as the review of records all occurred today. I also attest that the listed assessment and stated plan reflect my best clinical judgment today based on the combination of historical information, prior notes, and today's exam/ interactions. When time spent is documented, it refers only to time spent today by the signer, or if indicated, combined time spent today by collaborating physician/nurse practitioner. . Judith Salazar September 02, 2017 14:54
[2017-09-02] MEDS: ATORVASTATIN 40 MG TAB PO SCH (20:28)
[2017-09-02 20:50] LABS: HEMATOCRIT 28.6 % (39.0-51.0); HEMOGLOBIN 9.6 GM/DL (13.0-17.0)
[2017-09-02 21:57] LABS: BICARBONATE 29.2 MEQ/L (21.0-32.0); BLOOD UREA NITROGEN 32 MG/DL (7-18); CALCIUM 7.3 MG/DL (8.5-10.1); CHLORIDE 111 MEQ/L (98-107); CREATININE 0.77 MG/DL (0.60-1.30); GLOMERULAR FILTRATION RATE 101 ML/MIN (>89); GLUCOSE,RANDOM 254 MG/DL (74-106); SODIUM (NA) 147 MEQ/L (136-145)
[2017-09-02 22:09] LABS: TOTAL PROTEIN 4.2 GM/DL (6.4-8.2); TROPONIN I 0.38 NG/ML (0.02-0.05)
[2017-09-03] VITALS (34 sets, daily range): BP systolic 88–127; BP diastolic 51–70; PULSE 69–94; RESP 18; TEMP 97.9–98.6; O2SAT 98–100
[2017-09-03] MEDS: metroNIDAZOLE 500 MG INJ 100 ML IV SCH ×3 (00:13→17:38)
[2017-09-03] MEDS: INSULIN ASPART SUPPLEMENTAL SCALE SQ SCH ×6 (00:13→20:00)
[2017-09-03] MEDS: CHLORHEXIDINE GLUCONATE 2 % 1 PACK (2 CLOTHS) TOP SCH (04:00)
[2017-09-03] MEDS: CHLORHEXIDINE GLUCONATE 2 % 1 PACK (2 CLOTHS)(taper/protocol) TOPICAL SCH (04:00)
[2017-09-03] MEDS: LINEZOLID 600 MG PREMIX 300 ML IV SCH ×2 (04:57→15:54)
[2017-09-03] MEDS: METOPROLOL TARTRATE 50 MG TAB PO SCH ×2 (05:00→13:53)
[2017-09-03] MEDS: PANTOPRAZOLE SODIUM 40 MG VIAL IV PUSH SCH ×2 (05:00→17:37)
[2017-09-03] MEDS: ISOSORBIDE MONONITRATE 60 MG CR TAB (IMDUR) PO SCH (05:02)
[2017-09-03 05:14] LABS: AUTOMATED NEUTROPHIL # 10.1 TH/MM3 (1.8-7.7); HEMATOCRIT 29.1 % (39.0-51.0); HEMOGLOBIN 9.9 GM/DL (13.0-17.0); LYMPH % 3.7 % (9.0-44.0); LYMPHOCYTE # 0.4 TH/MM3 (1.0-4.8); MEAN CELL VOLUME 91.6 FL (80.0-100.0); MEAN CORPUSCULAR HEMOGLOBIN 31.2 PG (27.0-34.0); MEAN CORPUSCULAR HGB CONC 34.1 % (32.0-36.0); MEAN PLATELET VOLUME 9.2 FL (7.0-11.0); MONO % 2.8 % (0.0-8.0); MONOCYTE # 0.3 TH/MM3 (0-0.9); NEUT % 93.5 % (16.0-70.0); PLATELET COUNT 78 TH/MM3 (150-450); RED BLOOD COUNT 3.17 MIL/MM3 (4.50-5.90); RED CELL DISTRIBUTION WIDTH 17.8 % (11.6-17.2); WHITE BLOOD COUNT 10.9 TH/MM3 (4.0-11.0)
[2017-09-03 05:32] LABS: ALBUMIN 1.8 GM/DL (3.4-5.0); AST (GOT) 34 U/L (15-37); BICARBONATE 27.1 MEQ/L (21.0-32.0); BLOOD UREA NITROGEN 36 MG/DL (7-18); CALCIUM 7.6 MG/DL (8.5-10.1); CHLORIDE 111 MEQ/L (98-107); CREATININE 0.71 MG/DL (0.60-1.30); GLOMERULAR FILTRATION RATE 111 ML/MIN (>89); GLUCOSE,RANDOM 186 MG/DL (74-106); SODIUM (NA) 148 MEQ/L (136-145)
[2017-09-03 05:35] LABS: ALKALINE PHOSPHATASE 117 U/L (45-117); ALT (GPT) 43 U/L (12-78); TOTAL BILIRUBIN ADULT 0.4 MG/DL (0.2-1.0); TOTAL PROTEIN 4.3 GM/DL (6.4-8.2)
[2017-09-03] MEDS: RESP: BUDESONIDE 0.5 MG/2 ML NEB NEB SCH ×2 (07:26→19:49)
[2017-09-03] MEDS: CHLORHEXIDINE 0.12% (ORAL KIT) 15 ML CUP MT SCH ×4 (08:00→20:00)
[2017-09-03] MEDS: FUROSEMIDE 20 MG/2 ML VIAL IV PUSH SCH (08:39)
[2017-09-03] MEDS: FAMOTIDINE 20 MG TAB TUBE SCH ×2 (08:39→20:24)
[2017-09-03] MEDS: ASPIRIN 81 MG CHEW TAB CHEW SCH (08:39)
[2017-09-03] MEDS: ENOXAPARIN SODIUM 40 MG/0.4 ML SYRINGE SQ SCH (08:40)
[2017-09-03] MEDS: methylPREDNISolone SOD SUCC 125 MG/2 ML VIAL IV PUSH SCH ×2 (08:40→20:25)
[2017-09-03] MEDS: MIDAZOLAM 50 MG/NS 50 ML DRIP Premix IV PRN (08:40)
[2017-09-03] MEDS: SODIUM CHLORIDE 0.9% FLUSH 10 ML FLUSH IV FLUSH SCH ×3 (08:41→20:25)
[2017-09-03] MEDS: INSULIN DETEMIR 100 UNITS/ML VIAL SQ SCH ×2 (08:41→20:25)
[2017-09-03] MEDS: SODIUM CHLOR 0.9% 1000 ML INJ 1,000 ML IV SCH (08:56)
[2017-09-03] MEDS: fentaNYL DRIP 250 ML IV PRN ×2 (09:20→18:44)
--- NOTE | 2017-09-03 09:41 | HHI.PR ---
Subjective Remarks ACUTE DISTRESS LAST NIGHT NOW SEDATED ON VENT SUPPORT Objective Vital Signs Date Time Temp Pulse Resp B/P (MAP) Pulse Ox O2 Delivery O2 Flow Rate FiO2 09/03/17 09:00 80 18 114/62 (79) 99 09/03/17 09:00 80 09/03/17 08:40 79 18 103/57 (72) 99 09/03/17 08:20 74 18 96/51 (66) 99 09/03/17 08:00 40 09/03/17 08:00 98.3 75 18 106/59 (75) 100 09/03/17 08:00 75 09/03/17 07:40 77 18 119/61 (80) 100 09/03/17 07:27 40 09/03/17 07:25 100 40 09/03/17 07:20 69 18 97/56 (70) 99 09/03/17 07:00 71 18 106/57 (73) 100 09/03/17 06:00 72 09/03/17 04:10 40 09/03/17 04:04 98 40 09/03/17 04:00 98.6 94 18 127/70 (89) 98 09/03/17 04:00 94 09/03/17 04:00 94 09/03/17 02:00 78 09/03/17 01:04 99 40 09/03/17 00:00 78 09/03/17 00:00 98.4 78 18 88/55 (66) 99 09/02/17 22:00 78 09/02/17 20:00 98.9 82 36 89/54 (66) 99 09/02/17 20:00 82 09/02/17 19:57 99 40 09/02/17 19:00 99 Mechanical Ventilator 40 09/02/17 18:57 90 09/02/17 18:54 97 09/02/17 18:51 86 09/02/17 18:48 82 09/02/17 18:45 87 09/02/17 18:42 83 09/02/17 18:39 81 09/02/17 18:36 81 09/02/17 18:33 81 09/02/17 18:30 81 09/02/17 18:27 81 09/02/17 18:24 81 09/02/17 18:21 82 09/02/17 18:18 83 09/02/17 18:15 82 09/02/17 18:12 83 09/02/17 18:09 83 09/02/17 18:06 84 09/02/17 18:03 84 09/02/17 18:00 85 09/02/17 16:57 94 09/02/17 16:57 94 14 134/65 (88) 100 09/02/17 16:54 85 20 124/63 (83) 100 09/02/17 16:54 85 18 16:51 84 18 121/62 (81) 100 18 16:51 84 09/02/17 16:48 85 18 120/63 (82) 100 09/02/17 16:48 85 09/02/17 16:45 84 09/02/17 16:45 84 18 125/64 (84) 100 09/02/17 16:42 85 09/02/17 16:42 85 18 124/62 (82) 100 09/02/17 16:39 85 18 122/61 (81) 100 09/02/17 16:39 85 09/02/17 16:36 87 09/02/17 16:36 87 18 104/59 (74) 100 09/02/17 16:33 88 18 87/50 (62) 100 09/02/17 16:33 88 09/02/17 16:30 86 18 114/61 (78) 100 09/02/17 16:30 86 09/02/17 16:27 88 09/02/17 16:27 88 18 113/63 (80) 100 09/02/17 16:24 87 18 110/62 (78) 100 09/02/17 16:24 87 09/02/17 16:21 87 09/02/17 16:21 87 18 108/58 (75) 100 18 16:18 88 18 107/59 (75) 100 09/02/17 16:18 88 09/02/17 16:15 88 18 107/58 (74) 100 18 16:15 88 09/02/17 16:12 87 09/02/17 16:12 87 18 110/58 (75) 100 18 16:09 87 18 117/59 (78) 100 09/02/17 16:09 87 09/02/17 16:06 99 5/28/18 16:06 99 18 124/67 (86) 100 09/02/17 16:03 94 18 114/63 (80) 100 09/02/17 16:03 94 09/02/17 16:02 98.1 94 18 109/61 100 09/02/17 16:00 89 09/02/17 16:00 98.6 89 18 109/61 (77) 100 09/02/17 14:54 85 09/02/17 14:51 84 09/02/17 14:48 84 09/02/17 14:45 85 09/02/17 14:42 87 09/02/17 14:39 84 09/02/17 14:36 83 09/02/17 14:33 84 09/02/17 14:30 84 09/02/17 14:27 90 09/02/17 14:24 85 09/02/17 14:21 85 09/02/17 14:18 87 09/02/17 14:17 86 09/02/17 14:17 86 150/72 09/02/17 14:15 86 09/02/17 14:12 86 09/02/17 14:09 86 09/02/17 14:06 87 09/02/17 14:03 87 09/02/17 14:00 87 09/02/17 12:27 103 09/02/17 12:27 103 14 159/72 (101) 100 09/02/17 12:24 112 09/02/17 12:24 112 23 167/94 (118) 100 09/02/17 12:21 103 09/02/17 12:21 103 18 164/87 (112) 100 09/02/17 12:19 99 18 165/81 (109) 100 09/02/17 12:19 99 09/02/17 12:05 100 40 09/02/17 12:00 98.9 101 18 165/81 (109) 100 09/02/17 12:00 101 09/02/17 11:20 98.9 110 18 164/94 100 09/02/17 11:17 107 09/02/17 11:17 107 21 114/56 (75) 100 09/02/17 11:15 102 09/02/17 11:15 102 18 78/48 (58) 100 09/02/17 11:00 106 09/02/17 11:00 106 18 113/59 (77) 100 09/02/17 10:48 98.1 109 18 111/59 100 09/02/17 10:45 110 18 111/59 (76) 100 09/02/17 10:45 110 09/02/17 10:30 102 18 111/59 (76) 100 09/02/17 10:30 102 09/02/17 10:15 108 18 110/65 (80) 100 09/02/17 10:15 108 09/02/17 10:00 101 18 97/56 (70) 100 09/02/17 10:00 101 09/02/17 09:45 99 18 90/53 (65) 100 09/02/17 09:45 99 I/O 09/02/17 09/02/17 09/02/17 09/03/17 09/03/17 09/03/17 07:00 15:00 23:00 07:00 15:00 23:00 Intake Total 1071 ml 770 ml 975 ml 1084 ml 739 ml Output Total 575 ml 950 ml 650 ml Balance 496 ml 770 ml 25 ml 434 ml 739 ml Intake Oral 0 ml IV Total 1011 ml 350 ml 550 ml 650 ml 739 ml Tube Feeding 379 ml Packed Cells 400 ml 400 ml Blood Product IV Normal Saline Flush 20 ml 25 ml Tube Irrigant 55 ml Other 60 ml Output Urine Total 500 ml 550 ml 550 ml Stool Total 75 ml 400 ml 100 ml Result Diagram: 09/03/17 0445 09/03/17 0445 Objective Remarks GENERAL: SKIN: Warm and dry. HEAD: Atraumatic. Normocephalic. EYES: Pupils equal and round. No scleral icterus. No injection or drainage. ENT: No nasal bleeding or discharge. Mucous membranes pink and moist. NECK: Trachea midline. No JVD. CARDIOVASCULAR: Regular rate and rhythm. RESPIRATORY: No accessory muscle use. Clear to auscultation. Breath sounds equal bilaterally. GASTROINTESTINAL: Abdomen soft, non-tender, nondistended. Hepatic and splenic margins not palpable. MUSCULOSKELETAL: Extremities without clubbing, cyanosis, or edema. No obvious deformities. NEUROLOGICAL: Awake and alert. No obvious cranial nerve deficits. Motor grossly within normal limits. Five out of 5 muscle strength in the arms and legs. Normal speech. PSYCHIATRIC: Appropriate mood and affect; insight and judgment normal. Assessment and Plan Assessment and Plan IMPRESSION RESPIRATORY FAILURE COPD AFIB HTN PVD CAD PLAN VENT SUPPORT BRONCHODILATOR THERAPY WEAN OFF VENT TOLERATED Goran Zimmer MD September 03, 2017 09:41
[2017-09-03 09:50] LABS: OVALOCYTES 1+ (NORMAL)
[2017-09-03] MEDS: LEVOFLOXACIN 750 MG PREMIX INJ 150 ML IV SCH (13:53)
--- NOTE | 2017-09-03 14:43 | HHI.CCPN ---
Subjective Remarks/Hospital Course 66-year-old male who was brought to the ER after he developed shortness of breath and altered mental status. At [facility] he was placed on nasal cannula 2 L because of his history of COPD as he uses it off and on. EMS was called when patient developed agonal respirations with O2 sats in the low 80s on their arrival with pink frothy sputum. Patient was intubated in the field after receiving etomidate and Versed. His systolic blood pressure was 190s following intubation and dropped to the 60 systolic range and he was started on dopamine in the field by EMS. He was brought to the ER at [facility] and noted to have elevated troponin on his admitting labs. He was accepted for admission by critical care medicine service. He underwent a CT chest to evaluate for PE which was negative for PE however did show severe emphysematous changes with groundglass opacities. History is significantly limited by the fact that he is intubated. When I evaluated the patient he was sedated, orally intubated on mechanical ventilation. History was obtained by reviewing records. SUBJ 08/14/17: Remains intubated sedated, a CPAP was attempted but patient failed almost immediately with severe tachypnea. Continues to have bilateral expiratory wheezing and diminished air entry. Initial troponin was 3.18 now down trending 08/15/17: Patient remains intubated sedated with Versed and fentanyl. On sedation hold wakes up easily follows commands. On attempted CPAP patient became tachypneic with labored breathing using accessory muscles. Not ready for extubation. Pseudomonas growing in sputum. Increase Azactam to 2 g IV every 8 hours 08/16/17: Tolerating CPAP trials better today. Sputum culture growing Pseudomonas pansensitive. Will attempt to extubate with BiPAP use if needed 08/17/17: Reintubated yesterday evening following severe respiratory distress and severe wheezing. Currently remains sedated on vent support. Persistent wheezing. 08/18: Remains intubated sedated. Will initiate CPAP trials again. Patient has severe emphysema and will be difficult to wean to extubate. Wheezing persists. 08/19: Remains sedated, orally intubated on mechanical ventilation. Significant bloody respiratory secretions being suctioned from ET tube. On heparin for anticoagulation. Will hold Coumadin. 08/20: Sedated, arousable, orally intubated on mechanical ventilation. Failing CPAP trials. Heparin held yesterday due to increasing bloody respiratory secretions. 08/21: Remains sedated wakes up easily. Failed CPAP trial immediately today due to tachypnea and respiratory distress. No significant bloody secretions. Chest x-ray was clear. I discussed briefly with daughter. Poly Salcedo about possibility of trach. She needs more time to decide and needs time to discuss with family. I have consulted palliative care to address goals of care. Vent day 9 today. With his some advanced emphysema it will be difficult to wean him off the ventilator without tracheostomy 08/22: Patient is more critical becoming more septic. White count yesterday was 27.5. Today he spiked fever 101.3, tachycardic heart rate in 120s borderline hypotensive.. Chest x-ray shows developing left base infiltrate. Will continue cefepime panculture ordered. Vancomycin 1.25 g 1 and pharmacy to dose. Normal saline bolus 2 L ordered. 08/23: T-max 100.0. Hemoglobin downtrending now 7.2. Patient continues to be borderline hypotensive, monitor Hgb. Patient was tentatively scheduled for percutaneous tracheostomy this a.m. however unable to obtain consent from family members. Sodium level starting to downtrend with addition of free water flushes. 08/24: Hemodynamically stable throughout the night. Transfusion 1 unit of packed cells placed on hold with cancellation percutaneous tracheostomy due to lack of consent. H&H pending this afternoon, will transfuse for hemoglobin less than 7. Patient awake continuing on CPAP for greater than 4 hours today. 08/25: more awake. passed SBT. discussion with family and patient: he would want to be re-intubated and pursue tracheostomy if he fails again. 08/26: remained extubated. denies complaints. high risk for reintubation. wants aggressive care and tracheostomy if re-intubated. 09/01: Critical care reconsulted for worsening respiratory status. Patient was transferred to the ICU from the floor due to increasing O2 requirement and placed on a nonrebreather facemask. He was reportedly tachypneic using accessory muscles of respiration. There was some concern regarding aspiration. I evaluated the patient following his arrival to the ICU. He was breathing in the 30s using accessory muscles of respiration on a nonrebreather facemask. He is awake however not really able to give me details of history due to respiratory distress. Patient will be placed on BiPAP and Precedex in order to avoid intubation. He does have significantly advanced COPD and recently completed a course of antibiotics. Will restart empiric antibiotics with Zyvox/ Levaquin/Flagyl IV. 09/02: Patient was intubated yesterday(09/01) for worsening respiratory distress despite BiPAP and placed on mechanical ventilation. Remains sedated, orally intubated on mechanical ventilation. On Levophed for pressor support. Hemoglobin 7.5 this morning. 2 units PRBCs ordered to be transfused. Borderline elevated troponin noted. 09/03: Remains sedated, orally intubated on mechanical ventilation. Off levophed. 2 units PRBCs transfused yesterday Objective Vital Signs Date Time Temp Pulse Resp B/P (MAP) Pulse Ox O2 Delivery O2 Flow Rate FiO2 09/03/17 14:00 89 09/03/17 14:00 18 123/64 (83) 99 09/03/17 12:22 40 09/03/17 12:00 98.3 09/02/17 19:00 Mechanical Ventilator 09/01/17 08:23 2.00 Intake and Output 09/03/17 09/03/17 09/04/17 08:00 16:00 00:00 Intake Total 834 ml 739 ml Output Total 650 ml Balance 184 ml 739 ml Result Diagram: 09/03/17 0445 09/03/17 0445 Imaging Last Impressions Chest X-Ray 08/23/17 0600 Signed Impressions: Service Date/Time: Wednesday, August 23, 2017 04:23 - CONCLUSION: Clear lungs. Ricki Metzger Jr., MD CT Angiography 08/13/17 0000 Signed Impressions: Service Date/Time: Sunday, August 13, 2017 07:25 - CONCLUSION: 1. No CT evidence for pulmonary embolism as questioned. 2. Moderate to severe upper lobe predominant centrilobular emphysema. 3. Patchy bibasilar groundglass opacities likely reflecting atelectasis although differential considerations include aspiration. 4. Multiple 4-6mm bilateral groundglass and solid nodules, likely infectious/inflammatory. Recommend followup CT examination in approximately 6 months per 2017 Fleischner criteria (6mm nodule). Steve Barajas MD Last Impressions Chest X-Ray 08/13/17 0414 Signed Impressions: Service Date/Time: Sunday, August 13, 2017 04:28 - CONCLUSION: Lungs are grossly clear. ET tube in good position. Abel Cannon MD CT Angiography 08/13/17 0000 Signed Impressions: Service Date/Time: Sunday, August 13, 2017 07:25 - CONCLUSION: 1. No CT evidence for pulmonary embolism as questioned. 2. Moderate to severe upper lobe predominant centrilobular emphysema. 3. Patchy bibasilar groundglass opacities likely reflecting atelectasis although differential considerations include aspiration. 4. Multiple 4-6mm bilateral groundglass and solid nodules, likely infectious/inflammatory. Recommend followup CT examination in approximately 6 months per 2017 Fleischner criteria (6mm nodule). Steve Barajas MD Objective Remarks GEN: middle-aged male who appears much older than stated age, sedated, orally intubated on mechanical ventilation HEENT: Pallor present, no icterus, tongue/ mucosa moist. Neck: No JVD Chest/Pulm: Orally intubated on mechanical ventilation, good air entry bilaterally though decreased at bases, scattered rhonchi, no wheezing or crackles. CVS: S1-S2 regular, no gallop or murmur GI/abdomen: soft, nontender, no guarding. Extremities: warm bilaterally, 2+ peripheral edema bilateral upper extremity edema. Left lower extremity status post BKA Neuro: Sedated, arousable, orally intubated, moving all extremities. A/P Assessment and Plan Assessment: Acute on chronic hypoxic and hypercarbic respiratory failure Acute metabolic encephalopathy Severe sepsis Acute COPD exacerbation NSTEMI Pseudomonas pneumonia Suspected aspiration MRSA Ventilator associated pneumonia Advanced COPD/emphysema Anemia CAD History of cardiomyopathy Diabetes Hyperlipidemia Hypertension Paroxysmal atrial fibrillation. Peripheral vascular disease Plan: Neuro: - Follow neuro status. -Sedation with Versed/fentanyl gtt. Titrate off propofol in view of hypotension. -Daily sedation vacation Cardiovascular: -Was on Isosorbide mononitrate, atorvastatin, lasix per Dr. Gary. Holding Isosorbide, Lasix and lisinopril due to increasing BUN, hypotension -Hold I -Holding heparin and Coumadin since 08/19 in view of hemoptysis currently. Continue Lovenox 40 mg sq daily -Continue aspirin. Cardiology Dr. Gary. 2D echo EF 50% - Borderline troponin elevation on 09/02 -Dr. Gary recommends nuclear stress test when able to tolerate. Pulmonary: - patient and family goals as of my discussion 08/25: aggressive care including tracheostomy if he gets reintubated. -Failed extubation 08/16/2017, reintubated approximately after 6-8 hours. Total vent day 13 -Patient will need prolonged ventilatory support and will need trach due to severe emphysema, and pneumonia and sepsis -CT of the chest showed severe emphysema and pneumonia -Starting IV Solu-Medrol, continue bronchodilators inhaled budesonide -Starting antibiotics on 09/01 due to worsening respiratory status with question of aspiration. Ordered Zyvox/Levaquin/Flagyl IV -Failed BiPAP so intubated and placed on mechanical ventilation on 09/01 GI/liver: -Started tube feeds on 09/02, advanced to goal. Renal/: -Lasix daily. Hold Aldactone. -Strict intake output, monitor and replete electrodes, follow BUN/creatinine. ID: -Sputum culture growing pansensitive pseudomonas 08/13/17, MRSA on 08/22 -Ordered empiric antibiotic coverage with IV Zyvox/Levaquin/Flagyl -Reconsulted ID to manage abx. Endocrine: -Watch for hypoglycemia, SSI for glycemic control if needed. -Currently on Levemir every 12, SSI Heme: -Follow CBC and coags. Holding heparin and Coumadin in view of hemoptysis. -Transfuse 2 units PRBCs in view of non-ST elevation AK to bring hemoglobin up to 9 g percent Prophylaxis: -Pepcid/SCDs. Lovenox 40 mg subcutaneously (Full anticoagulation held due to hemoptysis) and will continue prophylactic dose provided hemoptysis does not recur or worsen. D/W QUAIL FARMER, D/W RT. Condition critical. Time spent on critical care excluding procedures 40 minute Lester Crawford MD September 03, 2017 14:43
--- NOTE | 2017-09-03 15:56 | HHI.IDPN ---
Subjective Subjective Remarks Mr. Salcedo is a 66-year-old male with past medical history of nonischemic cardiomyopathy with EF 25%,, diabetes mellitus, peripheral vascular disease status post left below-knee amputation in the past. With this background patient presents to the emergency department with acute onset of shortness of breath and altered mental status. Patient was reportedly at the custodial and his O2 sats dropped and given his history of COPD EMS was called when EMS saw the patient he developed agonal breathing with O2 sats in the low 80s and pink frothy sputum. Patient was intubated in the field. Patient's blood pressure following intubation dropped from systolic in 190s-60s systolic and patient was started on dopamine in the field by EMS. Patient was admitted to critical care services and underwent sepsis workup. Patient also underwent a CT chest to evaluate for PE which was negative. However it did show severe emphysematous changes with groundglass opacities. Patient has been started on aztreonam IV due to his history of rash to cefaclor. Clinically patient appears to be doing better and his chest x-ray has improved. RN reports that he continues to have some bloody secretions and there was a blood clot noted yesterday. But no active bleeding noted. Concern for possible ongoing aspiration given bleeding. At the time of my evaluation patient is in the ICU currently intubated. Patient underwent CPAP trial but failed. Respiratory therapist notes blood tinged secretions. Urine output okay Patient has had fevers as well as leukocytosis despite steroids being tapered off. Infectious disease consulted for evaluation and management of new fevers as well as increasing leukocytosis despite decreasing steroids. And also concern for Pseudomonas pneumonia. Overnight events reviewed with RN No fevers No rash No diarrhea reintubated. Antibiotics Cefepime IV Flagyl oral Vanco IV Lines Line sites with no e.o infection Past Medical History Past Medical History Per review of records Nonischemic cardiomyopathy with EF of 25% on July 2014 cardiac cath report. EF of 60% on January 2015 echo. History of acalculous cholecystitis status post biliary drain placement and subsequent cholecystectomy. Severe COPD Coronary artery disease status post coronary artery bypass in March 2014. Diabetes mellitus Hyperlipidemia Hypertension Paroxysmal atrial fibrillation Peripheral vascular disease status post left external iliac stent, bilateral femoral endarterectomies, bilateral profundoplasty, femorofemoral and aortobifemoral bypasses on May 07, 2014 as well as status post left femoral anterior tibial bypass and amputation of the left first and second toes in April 2016. Thereafter patient underwent a left below-knee amputation in May 01, 2016. Past Surgical History Per review of records Cardiac cath Coronary artery bypass graft in March 2014 Peripheral vascular disease with multiple bypasses in the lower extremities. Left below-knee amputation Allergies: Coded Allergies: cefaclor (Verified Allergy, Intermediate, rash, 06/28/17) Objective . Vital Signs Date Time Temp Pulse Resp B/P (MAP) Pulse Ox O2 Delivery O2 Flow Rate FiO2 09/03/17 15:26 100 40 09/03/17 14:00 89 09/03/17 14:00 89 18 123/64 (83) 99 09/03/17 13:30 81 09/03/17 13:30 81 18 102/60 (74) 100 09/03/17 13:00 79 18 101/59 (73) 100 09/03/17 13:00 79 09/03/17 12:30 77 09/03/17 12:30 77 18 97/53 (68) 100 09/03/17 12:22 100 40 09/03/17 12:00 83 09/03/17 12:00 40 09/03/17 12:00 98.3 83 18 114/61 (78) 100 09/03/17 11:30 85 18 123/66 (85) 100 09/03/17 11:30 85 09/03/17 11:00 76 18 104/57 (73) 99 09/03/17 11:00 76 09/03/17 10:30 81 18 112/60 (77) 100 09/03/17 10:30 81 09/03/17 10:00 83 18 118/64 (82) 99 09/03/17 10:00 83 09/03/17 09:00 80 18 114/62 (79) 99 09/03/17 09:00 80 09/03/17 08:40 79 18 103/57 (72) 99 09/03/17 08:20 74 18 96/51 (66) 99 09/03/17 08:00 40 09/03/17 08:00 98.3 75 18 106/59 (75) 100 09/03/17 08:00 75 09/03/17 07:40 77 18 119/61 (80) 100 09/03/17 07:27 40 09/03/17 07:25 100 40 09/03/17 07:20 69 18 97/56 (70) 99 09/03/17 07:00 71 18 106/57 (73) 100 09/03/17 06:00 72 09/03/17 04:10 40 09/03/17 04:04 98 40 09/03/17 04:00 98.6 94 18 127/70 (89) 98 09/03/17 04:00 94 09/03/17 04:00 94 09/03/17 02:00 78 09/03/17 01:04 99 40 09/03/17 00:00 78 09/03/17 00:00 98.4 78 18 88/55 (66) 99 09/02/17 22:00 78 09/02/17 20:00 98.9 82 36 89/54 (66) 99 09/02/17 20:00 82 09/02/17 19:57 99 40 09/02/17 19:00 99 Mechanical Ventilator 40 09/02/17 18:57 90 09/02/17 18:54 97 09/02/17 18:51 86 09/02/17 18:48 82 09/02/17 18:45 87 09/02/17 18:42 83 09/02/17 18:39 81 09/02/17 18:36 81 09/02/17 18:33 81 09/02/17 18:30 81 09/02/17 18:27 81 09/02/17 18:24 81 09/02/17 18:21 82 09/02/17 18:18 83 09/02/17 18:15 82 09/02/17 18:12 83 09/02/17 18:09 83 09/02/17 18:06 84 09/02/17 18:03 84 09/02/17 18:00 85 09/02/17 16:57 94 09/02/17 16:57 94 14 134/65 (88) 100 09/02/17 16:54 85 20 124/63 (83) 100 18 16:54 85 18 16:51 84 18 121/62 (81) 100 18 16:51 84 18 16:48 85 18 120/63 (82) 100 18 16:48 85 09/02/17 16:45 84 09/02/17 16:45 84 18 125/64 (84) 100 09/02/17 16:42 85 09/02/17 16:42 85 18 124/62 (82) 100 09/02/17 16:39 85 18 122/61 (81) 100 09/02/17 16:39 85 09/02/17 16:36 87 09/02/17 16:36 87 18 104/59 (74) 100 09/02/17 16:33 88 18 87/50 (62) 100 09/02/17 16:33 88 09/02/17 16:30 86 18 114/61 (78) 100 09/02/17 16:30 86 09/02/17 16:27 88 09/02/17 16:27 88 18 113/63 (80) 100 09/02/17 16:24 87 18 110/62 (78) 100 09/02/17 16:24 87 09/02/17 16:21 87 09/02/17 16:21 87 18 108/58 (75) 100 09/02/17 16:18 88 18 107/59 (75) 100 09/02/17 16:18 88 09/02/17 16:15 88 18 107/58 (74) 100 09/02/17 16:15 88 09/02/17 16:12 87 09/02/17 16:12 87 18 110/58 (75) 100 09/02/17 16:09 87 18 117/59 (78) 100 09/02/17 16:09 87 09/02/17 16:06 99 09/02/17 16:06 99 18 124/67 (86) 100 09/02/17 16:03 94 18 114/63 (80) 100 09/02/17 16:03 94 09/02/17 16:02 98.1 94 18 109/61 100 09/02/17 16:00 89 09/02/17 16:00 98.6 89 18 109/61 (77) 100 09/03/17 09/03/17 09/04/17 15:00 23:00 07:00 Intake Total 739 ml Balance 739 ml IV Total 739 ml . Laboratory Tests Test 09/01/17 17:46 09/02/17 05:10 09/02/17 20:35 09/03/17 04:45 White Blood Count 19.5 TH/MM3 13.0 TH/MM3 10.9 TH/MM3 Red Blood Count 2.52 MIL/MM3 2.47 MIL/MM3 3.17 MIL/MM3 Hemoglobin 7.5 GM/DL 7.5 GM/DL 9.6 GM/DL 9.9 GM/DL Hematocrit 24.0 % 23.3 % 28.6 % 29.1 % Mean Corpuscular Volume 95.3 FL 94.3 FL 91.6 FL Mean Corpuscular Hemoglobin 29.7 PG 30.3 PG 31.2 PG Mean Corpuscular Hemoglobin Concent 31.2 % 32.1 % 34.1 % Red Cell Distribution Width 18.7 % 19.1 % 17.8 % Platelet Count 184 TH/MM3 152 TH/MM3 78 TH/MM3 Mean Platelet Volume 9.7 FL 9.6 FL 9.2 FL Neutrophils (%) (Auto) 93.5 % Lymphocytes (%) (Auto) 3.7 % Monocytes (%) (Auto) 2.8 % Eosinophils (%) (Auto) 0.0 % Basophils (%) (Auto) 0.0 % Neutrophils # (Auto) 10.1 TH/MM3 Lymphocytes # (Auto) 0.4 TH/MM3 Monocytes # (Auto) 0.3 TH/MM3 Eosinophils # (Auto) 0.0 TH/MM3 Basophils # (Auto) 0.0 TH/MM3 CBC Comment AUTO DIFF Differential Comment AUTO DIFF CONFIRMED Platelet Estimate LOW Platelet Morphology Comment NORMAL Polychromasia 2.0 % Ovalocytes 1+ Red Cell Morphology Comment Laboratory Tests Test 09/01/17 17:46 09/02/17 05:10 09/02/17 21:00 09/03/17 04:45 Blood Urea Nitrogen 34 MG/DL 35 MG/DL 32 MG/DL 36 MG/DL Creatinine 0.62 MG/DL 0.70 MG/DL 0.77 MG/DL 0.71 MG/DL Random Glucose 235 MG/DL 266 MG/DL 254 MG/DL 186 MG/DL Total Protein 4.6 GM/DL 4.7 GM/DL 4.2 GM/DL 4.3 GM/DL Albumin 1.8 GM/DL 1.8 GM/DL Calcium Level 7.1 MG/DL 7.3 MG/DL 7.3 MG/DL 7.6 MG/DL Alkaline Phosphatase 168 U/L 117 U/L Aspartate Amino Transf (AST/SGOT) 68 U/L 34 U/L Alanine Aminotransferase (ALT/SGPT) 75 U/L 43 U/L Total Bilirubin 0.3 MG/DL 0.4 MG/DL Sodium Level 149 MEQ/L 147 MEQ/L 147 MEQ/L 148 MEQ/L Potassium Level 4.6 MEQ/L 4.0 MEQ/L 3.7 MEQ/L 4.0 MEQ/L Chloride Level 112 MEQ/L 111 MEQ/L 111 MEQ/L 111 MEQ/L Carbon Dioxide Level 31.0 MEQ/L 27.8 MEQ/L 29.2 MEQ/L 27.1 MEQ/L Anion Gap 6 MEQ/L 8 MEQ/L 7 MEQ/L 10 MEQ/L Estimat Glomerular Filtration Rate 130 ML/MIN 113 ML/MIN 101 ML/MIN 111 ML/MIN Lactic Acid Level 1.8 mmol/L Protein Corrected Calcium 8.5 MG/DL 8.7 MG/DL 9.0 MG/DL Total Creatine Kinase 231 U/L 177 U/L 254 U/L Creatine Kinase MB 11.4 NG/ML 6.1 NG/ML 3.7 NG/ML Troponin I 0.39 NG/ML 0.46 NG/ML 0.38 NG/ML B-Type Natriuretic Peptide 314 PG/ML Microbiology Date/Time Source Procedure Growth Status 09/01/17 14:40 Blood Peripheral Aerobic Blood Culture - Preliminary NO GROWTH IN 2 DAYS Resulted 09/01/17 14:40 Blood Peripheral Anaerobic Blood Culture - Preliminary NO GROWTH IN 2 DAYS Resulted 09/01/17 14:35 Blood Peripheral Aerobic Blood Culture - Preliminary NO GROWTH IN 2 DAYS Resulted 09/01/17 14:35 Blood Peripheral Anaerobic Blood Culture - Preliminary NO GROWTH IN 2 DAYS Resulted 09/01/17 17:13 Sputum Endotracheal Gram Stain - Final Resulted 09/01/17 17:13 Sputum Culture - Preliminary Pseudomonas Species Resulted Imaging Last Impressions Chest X-Ray 08/21/17 0600 Signed Impressions: Service Date/Time: Monday, August 21, 2017 04:09 - CONCLUSION: Clear lungs. Ricki Metzger Jr., MD CT Angiography 08/13/17 0000 Signed Impressions: Service Date/Time: Sunday, August 13, 2017 07:25 - CONCLUSION: 1. No CT evidence for pulmonary embolism as questioned. 2. Moderate to severe upper lobe predominant centrilobular emphysema. 3. Patchy bibasilar groundglass opacities likely reflecting atelectasis although differential considerations include aspiration. 4. Multiple 4-6mm bilateral groundglass and solid nodules, likely infectious/inflammatory. Recommend followup CT examination in approximately 6 months per 2017 Fleischner criteria (6mm nodule). Steve Barajas MD Physical Exam GENERAL: This is a well-nourished, well-developed patient, in no apparent distress. SKIN: No rashes, ecchymoses or lesions. Cool and dry. HEAD: Atraumatic. Normocephalic. No temporal or scalp tenderness. EYES: Pupils equal round and reactive. Extraocular motions intact. No scleral icterus. No injection or drainage. ENT: Intubated. NECK: Trachea midline. Supple, nontender, no meningeal signs. CARDIOVASCULAR: HS audible. No murmur appreciated. RESPIRATORY: Clear to auscultation. Breath sounds decreased in bases. GASTROINTESTINAL: Abdomen soft, non-tender, nondistended. MUSCULOSKELETAL: Left leg BKA site ok. NEUROLOGICAL: Opens eyes.Non focal exam. Did not follow commands Psych could not be assessed. IV line sites with no e.o infection Assessment & Plan Remarks New Severe Sepsis. MRSA pneumonia. Acute resp failure on vent Acute metabolic encephalopathy: infection, metabolic Pseudomonas pneumonitis in setting of aspiration was being treated. High grade leucocytosis on steroids plus infection. Recs Continue Levaquin IV Continue Zyvox IV Continue Flagyl IV Check stool Cdiff Check Abdominal KUB to look for ileus. ? cause for aspiration. Follow cultures Follow clinically. Sofia Crawford MD September 03, 2017 15:56
--- NOTE | 2017-09-03 17:31 | RADRPT ---
EXAM DATE: 09/03/2017 5:21 PM EDT AGE/SEX: 66 years / Male INDICATIONS: Abdominal distention. CLINICAL DATA: This is the patient's subsequent encounter. Patient reports that signs and symptoms h ave been present for 1 week and indicates a pain score of Nonresponsive. MEDICAL/SURGICAL HISTORY: None. CABG. COMPARISON: [facility] – [place] ABDOMEN KUB ONLY, 08/29/2017. . FINDINGS: There is a nasogastric tube within the stomach. The bowel gas pattern is within normal limits. No air-fluid levels are seen. The osseous structures are grossly intact. The graft incidental note is made of arterial stents withi n the left iliac circulation. CONCLUSION: Nasogastric tube in good position. Nonspecific bowel gas pattern. Electronically signed by: Ronald Holden MD 09/03/2017 5:30 PM EDT
[2017-09-03] MEDS: ATORVASTATIN 40 MG TAB PO SCH (20:24)
[2017-09-04] VITALS (35 sets, daily range): BP systolic 97–126; BP diastolic 60–77; PULSE 84–105; RESP 6–18; TEMP 97.2–99.1; O2SAT 98–100
[2017-09-04] MEDS: metroNIDAZOLE 500 MG INJ 100 ML IV SCH ×2 (00:49→08:40)
[2017-09-04] MEDS: MIDAZOLAM 50 MG/NS 50 ML DRIP Premix IV PRN ×2 (01:18→15:17)
[2017-09-04] MEDS: SODIUM CHLOR 0.9% 1000 ML INJ 1,000 ML IV SCH ×2 (02:15→22:15)
[2017-09-04] MEDS: fentaNYL DRIP 250 ML IV PRN ×3 (03:37→23:34)
[2017-09-04] MEDS: INSULIN ASPART SUPPLEMENTAL SCALE SQ SCH ×7 (03:56→23:53)
[2017-09-04] MEDS: LINEZOLID 600 MG PREMIX 300 ML IV SCH (03:56)
[2017-09-04] MEDS: CHLORHEXIDINE GLUCONATE 2 % 1 PACK (2 CLOTHS)(taper/protocol) TOPICAL SCH ×2 (04:00→23:17)
[2017-09-04] MEDS: CHLORHEXIDINE GLUCONATE 2 % 1 PACK (2 CLOTHS) TOP SCH (04:00)
[2017-09-04] MEDS: ISOSORBIDE MONONITRATE 60 MG CR TAB (IMDUR) PO SCH (06:02)
[2017-09-04] MEDS: PANTOPRAZOLE SODIUM 40 MG VIAL IV PUSH SCH ×2 (06:06→17:39)
[2017-09-04] MEDS: RESP: ALBUTEROL 2.5 MG/IPRATROPIUM 0.5 MG NEB (PRN) NEB ×2 (07:35→19:19)
[2017-09-04] MEDS: RESP: BUDESONIDE 0.5 MG/2 ML NEB NEB SCH ×2 (07:35→19:19)
[2017-09-04] MEDS: CHLORHEXIDINE 0.12% (ORAL KIT) 15 ML CUP MT SCH ×4 (08:00→20:00)
[2017-09-04] MEDS: FAMOTIDINE 20 MG TAB TUBE SCH ×2 (08:40→20:15)
[2017-09-04] MEDS: ASPIRIN 81 MG CHEW TAB CHEW SCH (08:40)
[2017-09-04] MEDS: SODIUM CHLORIDE 0.9% FLUSH 10 ML FLUSH IV FLUSH SCH ×3 (08:41→20:15)
[2017-09-04] MEDS: methylPREDNISolone SOD SUCC 125 MG/2 ML VIAL IV PUSH SCH ×2 (08:41→20:14)
[2017-09-04] MEDS: FUROSEMIDE 20 MG/2 ML VIAL IV PUSH SCH (08:41)
[2017-09-04] MEDS: ENOXAPARIN SODIUM 40 MG/0.4 ML SYRINGE SQ SCH (08:42)
[2017-09-04] MEDS: INSULIN DETEMIR 100 UNITS/ML VIAL SQ SCH ×2 (08:42→20:16)
--- NOTE | 2017-09-04 10:03 | HHI.CCPN ---
Subjective Remarks/Hospital Course 66-year-old male who was brought to the ER after he developed shortness of breath and altered mental status. [facility] nasal cannula 2 L because of his history of COPD as he uses it off and on. EMS was called when patient developed agonal respirations with O2 sats in the low 80s on their arrival with pink frothy sputum. Patient was intubated in the field after receiving etomidate and Versed. His systolic blood pressure was 190s following intubation and dropped to the 60 systolic range and he was started on dopamine in the field by EMS. He was brought to the ER at [place] and noted to have elevated troponin on his admitting labs. He was accepted for admission by critical care medicine service. He underwent a CT chest to evaluate for PE which was negative for PE however did show severe emphysematous changes with groundglass opacities. History is significantly limited by the fact that he is intubated. When I evaluated the patient he was sedated, orally intubated on mechanical ventilation. History was obtained by reviewing records. SUBJ 08/14/17: Remains intubated sedated, a CPAP was attempted but patient failed almost immediately with severe tachypnea. Continues to have bilateral expiratory wheezing and diminished air entry. Initial troponin was 3.18 now down trending 08/15/17: Patient remains intubated sedated with Versed and fentanyl. On sedation hold wakes up easily follows commands. On attempted CPAP patient became tachypneic with labored breathing using accessory muscles. Not ready for extubation. Pseudomonas growing in sputum. Increase Azactam to 2 g IV every 8 hours 08/16/17: Tolerating CPAP trials better today. Sputum culture growing Pseudomonas pansensitive. Will attempt to extubate with BiPAP use if needed 08/17/17: Reintubated yesterday evening following severe respiratory distress and severe wheezing. Currently remains sedated on vent support. Persistent wheezing. 08/18: Remains intubated sedated. Will initiate CPAP trials again. Patient has severe emphysema and will be difficult to wean to extubate. Wheezing persists. 08/19: Remains sedated, orally intubated on mechanical ventilation. Significant bloody respiratory secretions being suctioned from ET tube. On heparin for anticoagulation. Will hold Coumadin. 08/20: Sedated, arousable, orally intubated on mechanical ventilation. Failing CPAP trials. Heparin held yesterday due to increasing bloody respiratory secretions. 08/21: Remains sedated wakes up easily. Failed CPAP trial immediately today due to tachypnea and respiratory distress. No significant bloody secretions. Chest x-ray was clear. I discussed briefly with daughter. Poly Salcedo about possibility of trach. She needs more time to decide and needs time to discuss with family. I have consulted palliative care to address goals of care. Vent day 9 today. With his some advanced emphysema it will be difficult to wean him off the ventilator without tracheostomy 08/22: Patient is more critical becoming more septic. White count yesterday was 27.5. Today he spiked fever 101.3, tachycardic heart rate in 120s borderline hypotensive.. Chest x-ray shows developing left base infiltrate. Will continue cefepime panculture ordered. Vancomycin 1.25 g 1 and pharmacy to dose. Normal saline bolus 2 L ordered. 08/23: T-max 100.0. Hemoglobin downtrending now 7.2. Patient continues to be borderline hypotensive, monitor Hgb. Patient was tentatively scheduled for percutaneous tracheostomy this a.m. however unable to obtain consent from family members. Sodium level starting to downtrend with addition of free water flushes. 08/24: Hemodynamically stable throughout the night. Transfusion 1 unit of packed cells placed on hold with cancellation percutaneous tracheostomy due to lack of consent. H&H pending this afternoon, will transfuse for hemoglobin less than 7. Patient awake continuing on CPAP for greater than 4 hours today. 08/25: more awake. passed SBT. discussion with family and patient: he would want to be re-intubated and pursue tracheostomy if he fails again. 08/26: remained extubated. denies complaints. high risk for reintubation. wants aggressive care and tracheostomy if re-intubated. 09/01: Critical care reconsulted for worsening respiratory status. Patient was transferred to the ICU from the floor due to increasing O2 requirement and placed on a nonrebreather facemask. He was reportedly tachypneic using accessory muscles of respiration. There was some concern regarding aspiration. I evaluated the patient following his arrival to the ICU. He was breathing in the 30s using accessory muscles of respiration on a nonrebreather facemask. He is awake however not really able to give me details of history due to respiratory distress. Patient will be placed on BiPAP and Precedex in order to avoid intubation. He does have significantly advanced COPD and recently completed a course of antibiotics. Will restart empiric antibiotics with Zyvox/ Levaquin/Flagyl IV. 09/02: Patient was intubated yesterday(09/01) for worsening respiratory distress despite BiPAP and placed on mechanical ventilation. Remains sedated, orally intubated on mechanical ventilation. On Levophed for pressor support. Hemoglobin 7.5 this morning. 2 units PRBCs ordered to be transfused. Borderline elevated troponin noted. 09/03: Remains sedated, orally intubated on mechanical ventilation. Off levophed. 2 units PRBCs transfused yesterday 09/04: Sedated, arousable, orally intubated on mechanical ventilation. Tolerating tube feeds. Failed CPAP trials. Objective Vital Signs Date Time Temp Pulse Resp B/P (MAP) Pulse Ox O2 Delivery O2 Flow Rate FiO2 09/04/17 09:30 90 18 109/68 (82) 99 09/04/17 08:00 97.2 09/04/17 08:00 35 09/02/17 19:00 Mechanical Ventilator 09/01/17 08:23 2.00 Intake and Output 09/04/17 09/04/17 09/05/17 08:00 16:00 00:00 Intake Total 1310 ml Output Total 550 ml Balance 760 ml Result Diagram: 09/03/17 0445 09/03/17 0445 Imaging Last Impressions Chest X-Ray 08/23/17 0600 Signed Impressions: Service Date/Time: Wednesday, August 23, 2017 04:23 - CONCLUSION: Clear lungs. Ricki Metzger Jr., MD CT Angiography 08/13/17 0000 Signed Impressions: Service Date/Time: Sunday, August 13, 2017 07:25 - CONCLUSION: 1. No CT evidence for pulmonary embolism as questioned. 2. Moderate to severe upper lobe predominant centrilobular emphysema. 3. Patchy bibasilar groundglass opacities likely reflecting atelectasis although differential considerations include aspiration. 4. Multiple 4-6mm bilateral groundglass and solid nodules, likely infectious/inflammatory. Recommend followup CT examination in approximately 6 months per 2017 Fleischner criteria (6mm nodule). Steve Barajas MD Last Impressions Chest X-Ray 08/13/17 0414 Signed Impressions: Service Date/Time: Sunday, August 13, 2017 04:28 - CONCLUSION: Lungs are grossly clear. ET tube in good position. Abel Cannon MD CT Angiography 08/13/17 0000 Signed Impressions: Service Date/Time: Sunday, August 13, 2017 07:25 - CONCLUSION: 1. No CT evidence for pulmonary embolism as questioned. 2. Moderate to severe upper lobe predominant centrilobular emphysema. 3. Patchy bibasilar groundglass opacities likely reflecting atelectasis although differential considerations include aspiration. 4. Multiple 4-6mm bilateral groundglass and solid nodules, likely infectious/inflammatory. Recommend followup CT examination in approximately 6 months per 2017 Fleischner criteria (6mm nodule). Steve Barajas MD Objective Remarks GEN: middle-aged male who appears much older than stated age, sedated, orally intubated on mechanical ventilation HEENT: Pallor present, no icterus, tongue/ mucosa moist. Neck: No JVD Chest/Pulm: Orally intubated on mechanical ventilation, good air entry bilaterally though decreased at bases, scattered rhonchi, no wheezing or crackles. CVS: S1-S2 regular, no gallop or murmur GI/abdomen: soft, nontender, no guarding. Extremities: warm bilaterally, 2+ peripheral edema bilateral upper extremity edema. Left lower extremity status post BKA Neuro: Sedated, arousable, orally intubated, moving all extremities. A/P Assessment and Plan Assessment: Acute on chronic hypoxic and hypercarbic respiratory failure Acute metabolic encephalopathy Severe sepsis Acute COPD exacerbation NSTEMI Pseudomonas pneumonia Suspected aspiration MRSA Ventilator associated pneumonia Advanced COPD/emphysema Anemia CAD History of cardiomyopathy Diabetes Hyperlipidemia Hypertension Paroxysmal atrial fibrillation. Peripheral vascular disease Plan: Neuro: - Follow neuro status. -Sedation with Versed/fentanyl gtt. Titrate off propofol in view of hypotension. -Daily sedation vacation Cardiovascular: -Was on Isosorbide mononitrate, atorvastatin, lasix per Dr. Gary. Holding Isosorbide, Lasix and lisinopril due to increasing BUN, hypotension -Hold I -Holding heparin and Coumadin since 08/19 in view of hemoptysis currently. Continue Lovenox 40 mg sq daily -Continue aspirin. Cardiology Dr. Gary. 2D echo EF 50% - Borderline troponin elevation on 09/02 -Dr. Gary recommends nuclear stress test when able to tolerate. Pulmonary: - patient and family goals as of my discussion 08/25: aggressive care including tracheostomy if he gets reintubated. -Failed extubation 08/16/2017, reintubated approximately after 6-8 hours. Total vent day 13 -Patient will need prolonged ventilatory support and will need trach due to severe emphysema, and pneumonia and sepsis -CT of the chest showed severe emphysema and pneumonia -Starting IV Solu-Medrol, continue bronchodilators inhaled budesonide -Starting antibiotics on 09/01 due to worsening respiratory status with question of aspiration. Ordered Zyvox/Levaquin/Flagyl IV -Failed BiPAP so intubated and placed on mechanical ventilation on 09/01 -Failing CPAP trials. Will require tracheostomy and PEG tube. GI/liver: -Started tube feeds on 09/02, advanced to goal. Renal/: -Lasix daily. Hold Aldactone. -Strict intake output, monitor and replete electrodes, follow BUN/creatinine. ID: -Sputum culture growing pansensitive pseudomonas 08/13/17, MRSA on 08/22 -Ordered empiric antibiotic coverage with IV Zyvox/Levaquin/Flagyl -Reconsulted ID to manage abx. Endocrine: -Watch for hypoglycemia, SSI for glycemic control if needed. -Currently on Levemir every 12, SSI Heme: -Follow CBC and coags. Holding heparin and Coumadin in view of hemoptysis. -Transfuse 2 units PRBCs in view of non-ST elevation PR to bring hemoglobin up to 9 g percent Prophylaxis: -Pepcid/SCDs. Lovenox 40 mg subcutaneously (Full anticoagulation held due to hemoptysis) and will continue prophylactic dose provided hemoptysis does not recur or worsen. 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 Condition critical. Time spent on critical care excluding procedures 35 minute Lester Crawford MD September 04, 2017 10:03
--- NOTE | 2017-09-04 10:58 | HHI.IDPN ---
Subjective Subjective Remarks Mr. Salcedo is a 66-year-old male with past medical history of nonischemic cardiomyopathy with EF 25%,, diabetes mellitus, peripheral vascular disease status post left below-knee amputation in the past. With this background patient presents to the emergency department with acute onset of shortness of breath and altered mental status. Patient was reportedly at the half-way and his O2 sats dropped and given his history of COPD EMS was called when EMS saw the patient he developed agonal breathing with O2 sats in the low 80s and pink frothy sputum. Patient was intubated in the field. Patient's blood pressure following intubation dropped from systolic in 190s-60s systolic and patient was started on dopamine in the field by EMS. Patient was admitted to critical care services and underwent sepsis workup. Patient also underwent a CT chest to evaluate for PE which was negative. However it did show severe emphysematous changes with groundglass opacities. Patient has been started on aztreonam IV due to his history of rash to cefaclor. Clinically patient appears to be doing better and his chest x-ray has improved. RN reports that he continues to have some bloody secretions and there was a blood clot noted yesterday. But no active bleeding noted. Concern for possible ongoing aspiration given bleeding. At the time of my evaluation patient is in the ICU currently intubated. Patient underwent CPAP trial but failed. Respiratory therapist notes blood tinged secretions. Urine output okay Patient has had fevers as well as leukocytosis despite steroids being tapered off. Infectious disease consulted for evaluation and management of new fevers as well as increasing leukocytosis despite decreasing steroids. And also concern for Pseudomonas pneumonia. Overnight events reviewed with RN No fevers No rash No diarrhea reintubated. Antibiotics Cefepime IV Flagyl oral Vanco IV Lines Line sites with no e.o infection Past Medical History Past Medical History Per review of records Nonischemic cardiomyopathy with EF of 25% on July 2014 cardiac cath report. EF of 60% on January 2015 echo. History of acalculous cholecystitis status post biliary drain placement and subsequent cholecystectomy. Severe COPD Coronary artery disease status post coronary artery bypass in March 2014. Diabetes mellitus Hyperlipidemia Hypertension Paroxysmal atrial fibrillation Peripheral vascular disease status post left external iliac stent, bilateral femoral endarterectomies, bilateral profundoplasty, femorofemoral and aortobifemoral bypasses on May 07, 2014 as well as status post left femoral anterior tibial bypass and amputation of the left first and second toes in April 2016. Thereafter patient underwent a left below-knee amputation in May 01, 2016. Past Surgical History Per review of records Cardiac cath Coronary artery bypass graft in March 2014 Peripheral vascular disease with multiple bypasses in the lower extremities. Left below-knee amputation Allergies: Coded Allergies: cefaclor (Verified Allergy, Intermediate, rash, 06/28/17) Objective . Vital Signs Date Time Temp Pulse Resp B/P (MAP) Pulse Ox O2 Delivery O2 Flow Rate FiO2 09/04/17 10:00 86 09/04/17 09:30 90 18 109/68 (82) 99 09/04/17 09:00 92 18 112/69 (83) 99 09/04/17 08:30 88 18 104/65 (78) 99 09/04/17 08:00 97.2 86 18 99/61 (74) 98 09/04/17 08:00 35 09/04/17 08:00 86 09/04/17 07:37 98 35 09/04/17 07:30 86 18 100/63 (75) 99 09/04/17 07:00 84 18 101/62 (75) 100 09/04/17 06:00 92 09/04/17 04:00 40 09/04/17 04:00 94 09/04/17 04:00 98.3 94 18 109/66 (80) 99 09/04/17 03:44 99 40 09/04/17 02:00 98 09/04/17 00:19 100 40 09/04/17 00:00 98.3 85 18 109/62 (78) 100 09/04/17 00:00 40 09/04/17 00:00 85 09/03/17 22:00 80 09/03/17 20:07 100 40 09/03/17 20:00 40 09/03/17 20:00 98.2 92 18 103/62 (76) 100 09/03/17 20:00 92 09/03/17 18:00 85 09/03/17 17:00 76 18 104/60 (75) 100 09/03/17 17:00 76 09/03/17 16:30 77 18 103/59 (74) 100 09/03/17 16:30 77 09/03/17 16:00 97.9 80 18 110/61 (77) 99 09/03/17 16:00 40 09/03/17 16:00 80 09/03/17 15:30 74 18 95/56 (69) 100 09/03/17 15:30 74 09/03/17 15:26 100 40 09/03/17 15:00 75 18 94/55 (68) 100 09/03/17 15:00 75 09/03/17 14:00 89 09/03/17 14:00 89 18 123/64 (83) 99 09/03/17 13:30 81 09/03/17 13:30 81 18 102/60 (74) 100 09/03/17 13:00 79 18 101/59 (73) 100 09/03/17 13:00 79 09/03/17 12:30 77 09/03/17 12:30 77 18 97/53 (68) 100 09/03/17 12:22 100 40 09/03/17 12:00 83 09/03/17 12:00 40 09/03/17 12:00 98.3 83 18 114/61 (78) 100 09/03/17 11:30 85 18 123/66 (85) 100 09/03/17 11:30 85 09/03/17 11:00 76 18 104/57 (73) 99 09/03/17 11:00 76 09/04/17 09/04/17 09/05/17 15:00 23:00 07:00 Intake Total 100 ml Balance 100 ml IV Total 100 ml . Laboratory Tests Test 09/02/17 20:35 09/03/17 04:45 Hemoglobin 9.6 GM/DL 9.9 GM/DL Hematocrit 28.6 % 29.1 % White Blood Count 10.9 TH/MM3 Red Blood Count 3.17 MIL/MM3 Mean Corpuscular Volume 91.6 FL Mean Corpuscular Hemoglobin 31.2 PG Mean Corpuscular Hemoglobin Concent 34.1 % Red Cell Distribution Width 17.8 % Platelet Count 78 TH/MM3 Mean Platelet Volume 9.2 FL Neutrophils (%) (Auto) 93.5 % Lymphocytes (%) (Auto) 3.7 % Monocytes (%) (Auto) 2.8 % Eosinophils (%) (Auto) 0.0 % Basophils (%) (Auto) 0.0 % Neutrophils # (Auto) 10.1 TH/MM3 Lymphocytes # (Auto) 0.4 TH/MM3 Monocytes # (Auto) 0.3 TH/MM3 Eosinophils # (Auto) 0.0 TH/MM3 Basophils # (Auto) 0.0 TH/MM3 CBC Comment AUTO DIFF Differential Comment AUTO DIFF CONFIRMED Platelet Estimate LOW Platelet Morphology Comment NORMAL Polychromasia 2.0 % Ovalocytes 1+ Red Cell Morphology Comment Laboratory Tests Test 09/02/17 21:00 09/03/17 04:45 Blood Urea Nitrogen 32 MG/DL 36 MG/DL Creatinine 0.77 MG/DL 0.71 MG/DL Random Glucose 254 MG/DL 186 MG/DL Total Protein 4.2 GM/DL 4.3 GM/DL Calcium Level 7.3 MG/DL 7.6 MG/DL Sodium Level 147 MEQ/L 148 MEQ/L Potassium Level 3.7 MEQ/L 4.0 MEQ/L Chloride Level 111 MEQ/L 111 MEQ/L Carbon Dioxide Level 29.2 MEQ/L 27.1 MEQ/L Anion Gap 7 MEQ/L 10 MEQ/L Estimat Glomerular Filtration Rate 101 ML/MIN 111 ML/MIN Protein Corrected Calcium 9.0 MG/DL Total Creatine Kinase 254 U/L Creatine Kinase MB 3.7 NG/ML Troponin I 0.38 NG/ML Albumin 1.8 GM/DL Alkaline Phosphatase 117 U/L Aspartate Amino Transf (AST/SGOT) 34 U/L Alanine Aminotransferase (ALT/SGPT) 43 U/L Total Bilirubin 0.4 MG/DL Microbiology Date/Time Source Procedure Growth Status 09/01/17 14:40 Blood Peripheral Aerobic Blood Culture - Preliminary NO GROWTH IN 2 DAYS Resulted 09/01/17 14:40 Blood Peripheral Anaerobic Blood Culture - Preliminary NO GROWTH IN 2 DAYS Resulted 09/01/17 14:35 Blood Peripheral Aerobic Blood Culture - Preliminary NO GROWTH IN 2 DAYS Resulted 09/01/17 14:35 Blood Peripheral Anaerobic Blood Culture - Preliminary NO GROWTH IN 2 DAYS Resulted 09/01/17 17:13 Sputum Endotracheal Gram Stain - Final Resulted 09/01/17 17:13 Sputum Culture - Preliminary Pseudomonas Species Resulted Imaging Last Impressions Chest X-Ray 08/21/17 0600 Signed Impressions: Service Date/Time: Monday, August 21, 2017 04:09 - CONCLUSION: Clear lungs. Ricki Metzger Jr., MD CT Angiography 08/13/17 0000 Signed Impressions: Service Date/Time: Sunday, August 13, 2017 07:25 - CONCLUSION: 1. No CT evidence for pulmonary embolism as questioned. 2. Moderate to severe upper lobe predominant centrilobular emphysema. 3. Patchy bibasilar groundglass opacities likely reflecting atelectasis although differential considerations include aspiration. 4. Multiple 4-6mm bilateral groundglass and solid nodules, likely infectious/inflammatory. Recommend followup CT examination in approximately 6 months per 2017 Fleischner criteria (6mm nodule). Steve Barajas MD Physical Exam GENERAL: This is a well-nourished, well-developed patient, in no apparent distress. SKIN: No rashes, ecchymoses or lesions. Cool and dry. HEAD: Atraumatic. Normocephalic. No temporal or scalp tenderness. EYES: Pupils equal round and reactive. Extraocular motions intact. No scleral icterus. No injection or drainage. ENT: Intubated. NECK: Trachea midline. Supple, nontender, no meningeal signs. CARDIOVASCULAR: HS audible. No murmur appreciated. RESPIRATORY: Clear to auscultation. Breath sounds decreased in bases. GASTROINTESTINAL: Abdomen soft, non-tender, nondistended. MUSCULOSKELETAL: Left leg BKA site ok. NEUROLOGICAL: Opens eyes.Non focal exam. Did not follow commands Psych could not be assessed. IV line sites with no e.o infection Assessment & Plan Remarks Aspiration pneumonitis. MRSA pneumonia treated. Pseudomonas in sputum ? colonization as CXR negative. Acute resp failure on vent Acute metabolic encephalopathy: infection, metabolic Pseudomonas pneumonitis in setting of aspiration was being treated. High grade leucocytosis on steroids plus infection. Recs DC Levaquin IV DC Zyvox IV DC Flagyl IV Observe off antibiotics. Negative stool Cdiff Follow cultures Follow clinically. Will sign off please call back if any change in clinical condition or questions. Sofia Crawford MD September 04, 2017 10:58
--- NOTE | 2017-09-04 14:09 | HHI.HCPN ---
Reason for visit a. To assist with evaluation and management of symptoms including: dyspnea, pain b. To assist medical decision maker(s) with: better understanding of current medical conditions; weighing benefits/burdens of medical treatment options; making medical treatment decisions. . Subjective/Interval History Mr. Salcedo is a 66 yo male admitted with hypoxic respiratory failure. Follow-up visit for symptom management of pain and dyspnea as well as clarification of medical treatment goals. Patient was transferred back to the intensive care unit on secondary to increased oxygen requirements and deteriorating respiratory status. He is now back on ventilatory support for the third time this hospitalization Not tolerating spontaneous breathing trials. Afebrile. Leukocytosis has resolved. Repeat chest x-ray on 09/02/2017 showing clear lungs without infiltrate, nodule or mass. Sputum culture from 09/01/2017 growing Pseudomonas, possibly colonization. Infectious disease is following. Antibiotics were discontinued; following cultures. Patient is more alert today. Able to follow simple one-step commands such as wiggling his toes or squeezing my hand; he nods/shakes his head and an attempt to answer some yes or no questions. Patient appears to nod his head when asked if he is painful. He is currently sedated with Fentanyl and Versed, will titrate medications for symptom management. Spoke to patient's daughter via telephone; update provided on patient's clinical condition. Plan to proceed with trach/PEG tube placement if indicated but would like to allow the patient as much time as possible to see if he improves. . Family/friend interactions See interval history . Advance Directives Living Will: Copy in medical record Advance Directive Specifics Documented care wishes: Living will appears to be completed on April 19, 2014. Document can be viewed in patient's EMR. . Objective Vital Signs Date Time Temp Pulse Resp B/P (MAP) Pulse Ox O2 Delivery O2 Flow Rate FiO2 09/04/17 12:22 99 35 09/04/17 12:00 87 09/04/17 12:00 99.1 87 18 103/64 (77) 99 09/04/17 12:00 35 09/04/17 11:33 92 18 108/62 (77) 99 09/04/17 11:00 88 18 105/65 (78) 98 09/04/17 10:30 91 18 108/68 (81) 98 09/04/17 10:00 86 18 103/61 (75) 99 09/04/17 10:00 86 09/04/17 09:30 90 18 109/68 (82) 99 09/04/17 09:00 92 18 112/69 (83) 99 09/04/17 08:30 88 18 104/65 (78) 99 09/04/17 08:00 97.2 86 18 99/61 (74) 98 09/04/17 08:00 35 09/04/17 08:00 86 09/04/17 07:37 98 35 09/04/17 07:30 86 18 100/63 (75) 99 09/04/17 07:00 84 18 101/62 (75) 100 09/04/17 06:00 92 09/04/17 04:00 40 09/04/17 04:00 94 09/04/17 04:00 98.3 94 18 109/66 (80) 99 09/04/17 03:44 99 40 09/04/17 02:00 98 09/04/17 00:19 100 40 09/04/17 00:00 98.3 85 18 109/62 (78) 100 09/04/17 00:00 40 09/04/17 00:00 85 09/03/17 22:00 80 09/03/17 20:07 100 40 09/03/17 20:00 40 09/03/17 20:00 98.2 92 18 103/62 (76) 100 09/03/17 20:00 92 09/03/17 18:00 85 09/03/17 17:00 76 18 104/60 (75) 100 09/03/17 17:00 76 09/03/17 16:30 77 18 103/59 (74) 100 09/03/17 16:30 77 09/03/17 16:00 97.9 80 18 110/61 (77) 99 09/03/17 16:00 40 09/03/17 16:00 80 09/03/17 15:30 74 18 95/56 (69) 100 09/03/17 15:30 74 09/03/17 15:26 100 40 09/03/17 15:00 75 18 94/55 (68) 100 09/03/17 15:00 75 09/03/17 14:00 89 09/03/17 14:00 89 18 123/64 (83) 99 Intake & Output 09/04/17 09/04/17 07:00 19:00 Intake Total 1310 ml 100 ml Output Total 550 ml Balance 760 ml 100 ml IV Total 600 ml 100 ml Tube Feeding 655 ml Tube Irrigant 55 ml Output Urine Total 450 ml Stool Total 100 ml . Physical Exam CONSTITUTIONAL/GENERAL: This is an adequately nourished, [facility]. TUBES/LINES/DRAINS: CVL, dobbhoff, ETT, Lopez, Rectal tube, Podus boot and SCD on right leg SKIN: Ecchymoses and abrasions on upper extremities; BUE weepy. No wounds seen anteriorly. Skin temperature appropriate. Not diaphoretic. HEAD: Atraumatic. Normocephalic. EYES: Pupils equal and round. No scleral icterus. No injection or drainage. Fundi not examined. ENT: Nose without bleeding or purulent drainage. NECK: Trachea midline. Supple, nontender. No palpable thyroid enlargement or nodularity. CARDIOVASCULAR: Regular rate and rhythm without murmurs, gallops, or rubs. No JVD. Peripheral pulses symmetric. RESPIRATORY/CHEST: Remains intubated on mechanical ventilation. FiO2 35%. Bibasilar breath sounds diminished. GASTROINTESTINAL: Abdomen soft, non-tender, nondistended. No guarding. Bowel sounds present. Rectal tube with brown, liquid stool GENITOURINARY: Without palpable bladder distension. Indwelling urinary cath MUSCULOSKELETAL: Extremities without clubbing or cyanosis. Left BKA. Hands swollen bilaterally; right foot cool to touch. LYMPHATICS: No palpable cervical or supraclavicular adenopathy. NEUROLOGICAL: Awake and alert. Follows simple one-step commands. Appears to be nodding/shaking his head to yes/no questions appropriately. PSYCHIATRIC: Unable to assess given clinical condition . Diagnostic Tests Laboratory Laboratory Tests Test 09/01/17 17:13 09/01/17 17:46 09/01/17 18:40 09/02/17 05:10 Nasal Screen MRSA (PCR) MRSA DETECTED (NOT DETECT) White Blood Count 19.5 TH/MM3 (4.0-11.0) 13.0 TH/MM3 (4.0-11.0) Red Blood Count 2.52 MIL/MM3 (4.50-5.90) 2.47 MIL/MM3 (4.50-5.90) Hemoglobin 7.5 GM/DL (13.0-17.0) 7.5 GM/DL (13.0-17.0) Hematocrit 24.0 % (39.0-51.0) 23.3 % (39.0-51.0) Mean Corpuscular Volume 95.3 FL (80.0-100.0) 94.3 FL (80.0-100.0) Mean Corpuscular Hemoglobin 29.7 PG (27.0-34.0) 30.3 PG (27.0-34.0) Mean Corpuscular Hemoglobin Concent 31.2 % (32.0-36.0) 32.1 % (32.0-36.0) Red Cell Distribution Width 18.7 % (11.6-17.2) 19.1 % (11.6-17.2) Platelet Count 184 TH/MM3 (150-450) 152 TH/MM3 (150-450) Mean Platelet Volume 9.7 FL (7.0-11.0) 9.6 FL (7.0-11.0) Blood Urea Nitrogen 34 MG/DL (7-18) 35 MG/DL (7-18) Creatinine 0.62 MG/DL (0.60-1.30) 0.70 MG/DL (0.60-1.30) Random Glucose 235 MG/DL (74-106) 266 MG/DL (74-106) Total Protein 4.6 GM/DL (6.4-8.2) 4.7 GM/DL (6.4-8.2) Albumin 1.8 GM/DL (3.4-5.0) Calcium Level 7.1 MG/DL (8.5-10.1) 7.3 MG/DL (8.5-10.1) Alkaline Phosphatase 168 U/L (45-117) Aspartate Amino Transf (AST/SGOT) 68 U/L (15-37) Alanine Aminotransferase (ALT/SGPT) 75 U/L (12-78) Total Bilirubin 0.3 MG/DL (0.2-1.0) Sodium Level 149 MEQ/L (136-145) 147 MEQ/L (136-145) Potassium Level 4.6 MEQ/L (3.5-5.1) 4.0 MEQ/L (3.5-5.1) Chloride Level 112 MEQ/L (98-107) 111 MEQ/L (98-107) Carbon Dioxide Level 31.0 MEQ/L (21.0-32.0) 27.8 MEQ/L (21.0-32.0) Anion Gap 6 MEQ/L (5-15) 8 MEQ/L (5-15) Estimat Glomerular Filtration Rate 130 ML/MIN (>89) 113 ML/MIN (>89) Lactic Acid Level 1.8 mmol/L (0.4-2.0) Protein Corrected Calcium 8.5 MG/DL (8.5-10.1) 8.7 MG/DL (8.5-10.1) Total Creatine Kinase 231 U/L (39-308) 177 U/L (39-308) Creatine Kinase MB 11.4 NG/ML (0.5-3.6) 6.1 NG/ML (0.5-3.6) Troponin I 0.39 NG/ML (0.02-0.05) 0.46 NG/ML (0.02-0.05) B-Type Natriuretic Peptide 314 PG/ML (0-100) Blood Gas Puncture Site RT RADIAL Blood Gas Patient Temperature 98.6 Blood Gas HCO3 28 mmol/L (22-26) Blood Gas Base Excess 4.1 mmol/L (-2-2) Blood Gas Oxygen Saturation 97 % (90-100) Arterial Blood pH 7.46 (7.380-7.420) Arterial Blood Partial Pressure CO2 40 mmHg (38-42) Arterial Blood Partial Pressure O2 480 mmHg (61-120) Arterial Blood Oxygen Content 11.9 Vol % (12.0-20.0) Arterial Blood Carboxyhemoglobin 1.5 % (0-4) Arterial Blood Methemoglobin 1.4 % (0-2) Blood Gas Hemoglobin 7.8 G/DL (12.0-16.0) Oxygen Delivery Device VENTILATOR Blood Gas Ventilator Setting Blood Gas Inspired Oxygen 100 % Activated Partial Thromboplast Time 20.2 SEC (24.3-30.1) Test 09/02/17 20:35 09/02/17 21:00 09/03/17 04:45 09/03/17 18:00 Hemoglobin 9.6 GM/DL (13.0-17.0) 9.9 GM/DL (13.0-17.0) Hematocrit 28.6 % (39.0-51.0) 29.1 % (39.0-51.0) Blood Urea Nitrogen 32 MG/DL (7-18) 36 MG/DL (7-18) Creatinine 0.77 MG/DL (0.60-1.30) 0.71 MG/DL (0.60-1.30) Random Glucose 254 MG/DL (74-106) 186 MG/DL (74-106) Total Protein 4.2 GM/DL (6.4-8.2) 4.3 GM/DL (6.4-8.2) Calcium Level 7.3 MG/DL (8.5-10.1) 7.6 MG/DL (8.5-10.1) Sodium Level 147 MEQ/L (136-145) 148 MEQ/L (136-145) Potassium Level 3.7 MEQ/L (3.5-5.1) 4.0 MEQ/L (3.5-5.1) Chloride Level 111 MEQ/L (98-107) 111 MEQ/L (98-107) Carbon Dioxide Level 29.2 MEQ/L (21.0-32.0) 27.1 MEQ/L (21.0-32.0) Anion Gap 7 MEQ/L (5-15) 10 MEQ/L (5-15) Estimat Glomerular Filtration Rate 101 ML/MIN (>89) 111 ML/MIN (>89) Protein Corrected Calcium 9.0 MG/DL (8.5-10.1) Total Creatine Kinase 254 U/L (39-308) Creatine Kinase MB 3.7 NG/ML (0.5-3.6) Troponin I 0.38 NG/ML (0.02-0.05) White Blood Count 10.9 TH/MM3 (4.0-11.0) Red Blood Count 3.17 MIL/MM3 (4.50-5.90) Mean Corpuscular Volume 91.6 FL (80.0-100.0) Mean Corpuscular Hemoglobin 31.2 PG (27.0-34.0) Mean Corpuscular Hemoglobin Concent 34.1 % (32.0-36.0) Red Cell Distribution Width 17.8 % (11.6-17.2) Platelet Count 78 TH/MM3 (150-450) Mean Platelet Volume 9.2 FL (7.0-11.0) Neutrophils (%) (Auto) 93.5 % (16.0-70.0) Lymphocytes (%) (Auto) 3.7 % (9.0-44.0) Monocytes (%) (Auto) 2.8 % (0.0-8.0) Eosinophils (%) (Auto) 0.0 % (0.0-4.0) Basophils (%) (Auto) 0.0 % (0.0-2.0) Neutrophils # (Auto) 10.1 TH/MM3 (1.8-7.7) Lymphocytes # (Auto) 0.4 TH/MM3 (1.0-4.8) Monocytes # (Auto) 0.3 TH/MM3 (0-0.9) Eosinophils # (Auto) 0.0 TH/MM3 (0-0.4) Basophils # (Auto) 0.0 TH/MM3 (0-0.2) CBC Comment AUTO DIFF Differential Comment AUTO DIFF CONFIRMED Platelet Estimate LOW (NORMAL) Platelet Morphology Comment NORMAL (NORMAL) Polychromasia 2.0 % (0.0-1.9) Ovalocytes 1+ (NORMAL) Red Cell Morphology Comment (NORMAL) Activated Partial Thromboplast Time 20.4 SEC (24.3-30.1) Albumin 1.8 GM/DL (3.4-5.0) Alkaline Phosphatase 117 U/L (45-117) Aspartate Amino Transf (AST/SGOT) 34 U/L (15-37) Alanine Aminotransferase (ALT/SGPT) 43 U/L (12-78) Total Bilirubin 0.4 MG/DL (0.2-1.0) Stool C. difficile Toxin (PCR) NEGATIVE (NEGATIVE) Stl C. difficile Toxin Epiderm 027 PRESUMPTIVE NEGATIVE Test 09/04/17 03:40 Activated Partial Thromboplast Time 20.5 SEC (24.3-30.1) . Result Diagram: 09/03/17 04409/03/17444 Microbiology Microbiology Date/Time Source Procedure Growth Status 09/01/17 14:40 Blood Peripheral Aerobic Blood Culture - Preliminary NO GROWTH IN 3 DAYS Resulted 09/01/17 14:40 Blood Peripheral Anaerobic Blood Culture - Preliminary NO GROWTH IN 3 DAYS Resulted 09/01/17 14:35 Blood Peripheral Aerobic Blood Culture - Preliminary NO GROWTH IN 3 DAYS Resulted 09/01/17 14:35 Blood Peripheral Anaerobic Blood Culture - Preliminary NO GROWTH IN 3 DAYS Resulted 09/01/17 17:13 Sputum Endotracheal Gram Stain - Final Resulted 09/01/17 17:13 Sputum Culture - Preliminary Pseudomonas Species Resulted . Imaging Last 72 hours Impressions Abdomen X-Ray 09/03/17 0000 Signed Impressions: CONCLUSION: Nasogastric tube in good position. Nonspecific bowel gas pattern. Chest X-Ray 09/02/17 0000 Signed Impressions: CONCLUSION: No acute cardiopulmonary disease. . Procedures 08/16/2017: Intubation/reintubation 08/25/2017: Extubation 09/01/2017: Reintubation . Assessment and Plan Disease Oriented Problem List: (1) Peripheral vascular disease (2) Pseudomonas pneumonia (3) COPD exacerbation (4) Cardiomyopathy (5) DM type 2 (diabetes mellitus, type 2) (6) CAD (coronary artery disease) (7) COPD (chronic obstructive pulmonary disease) (8) Hyperlipidemia (9) Paroxysmal atrial fibrillation Symptom Scale: (1) Dyspnea 0-10 Scale: Unable to quantify (2) Pain 0-10 Scale: Unable to quantify Pertinent Non-Medical Issues Psychosocial: Patient is originally from [place]. Patient has been for many years. He has 1 adult daughter (Poly) and 2 grand-children. Grandson ( Tristin) and Granddaughter (Deo). Granddaughter (Deo) identifies as male and is to [facility]. Patient's highest education level is eighth grade. He is unemployed; last working in 2010 as a [employer]. Spiritual: Taoist shelbi Legal: Per [place] statutes, in the absence of written advanced directives health care proxy decision making falls to the patient's daughter (Poly). Ethical issues impacting care: No known ethical issues impacting care at this time. . Important Contacts Poly Salcedo, daughter: [phone] Tristin Salcedo, grandson: [phone] Deo Salcedo, granddaughter - identifies as male : [phone] ( to [facility]) Juan Carlos Salcedo, brother: [phone] . Prognosis Patient is a 66 yo male with significant lung disease resulting in 4 hospitalizations in the past 6 months. He is currently vent dependent and unable to tolerate CPAP trails; given his advanced lung disease it will be difficult to wean him off the ventilator without a tracheostomy. Given patient' s complex medical history, he will be high risk for ongoing complications and decline. . Code Status: Full Code Plan * FULL CODE * Decision-making: Patient does NOT have insight or judgment concerning his medical conditions at this time. Per [place] statutes, in the absence of written advanced directives health care proxy decision making falls to the patient's daughter (Poly). * AGGRESSIVE GOALS * Spoke to patient's daughter (Poly) via telephone. Questions answered to the best of my ability; reviewed medical treatment goals i.e. possible trach/PEG tube. Poly states, " They told me they could do a reversible trach. So that's what we want." I explained that tracheostomies are generally reversible, but the unknown variable is whether or not the patient will become medically stable enough to have the trach reversed. Plan to proceed with trach/PEG tube placement if indicated but would like to allow the patient as much time as possible to see if he improves. * Discussed current medical treatment goals with RN (Cee) and financial associate (Dr. Crawford). * Symptom management: == Dyspnea: Patient admitted with severe dyspnea s/p being intubated in the field; known history of severe underlying lung disease. 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 Treated for MRSA pneumonia. Patient was transferred back to the intensive care unit on 09/01/17; he is now back on ventilatory support for the third time this hospitalization. Not tolerating CPAP trials. Repeat chest x-ray showing no acute disease process. Repeat sputum culture growing Pseudomonas, possibly colonization per ID. == Pain: Multifactoral. Patient has a known history of chronic back pain, CAD, severe peripheral vascular disease status post left BKA. Additional contributing factors may include invasive lines, immobility etc. currently sedated on fentanyl and Versed drip * Positive care will continue to follow this patient throughout his hospitalization to establish stress, assist with symptom management and clarification of medical treatment goals. . Time Spent Total Floor Time (mins): 50 (Time spent 0542-6183. Time to include review of meducal recird, patient examination, conversation with family and collaboration with medical team.) Face to Face Time (mins): 15 >50% Counseling/Coord of Care: Yes Judith Salazar September 04, 2017 14:09
--- NOTE | 2017-09-04 19:55 | HHI.PR ---
Subjective Remarks SEDATED ON VENT SUPPORT Objective GENERAL: SKIN: Warm and dry. HEAD: Atraumatic. Normocephalic. EYES: Pupils equal and round. No scleral icterus. No injection or drainage. ENT: No nasal bleeding or discharge. Mucous membranes pink and moist. NECK: Trachea midline. No JVD. CARDIOVASCULAR: Regular rate and rhythm. RESPIRATORY: No accessory muscle use. Clear to auscultation. Breath sounds equal bilaterally. GASTROINTESTINAL: Abdomen soft, non-tender, nondistended. Hepatic and splenic margins not palpable. MUSCULOSKELETAL: Extremities without clubbing, cyanosis, or edema. No obvious deformities. NEUROLOGICAL: Awake and alert. No obvious cranial nerve deficits. Motor grossly within normal limits. Five out of 5 muscle strength in the arms and legs. Normal speech. PSYCHIATRIC: Appropriate mood and affect; insight and judgment normal. Vital Signs Date Time Temp Pulse Resp B/P (MAP) Pulse Ox O2 Delivery O2 Flow Rate FiO2 09/04/17 18:00 87 09/04/17 17:30 93 18 112/61 (78) 98 09/04/17 17:00 103 6 126/77 (93) 98 09/04/17 16:30 85 18 103/64 (77) 99 09/04/17 16:00 98.9 87 18 101/64 (76) 98 09/04/17 16:00 35 09/04/17 16:00 87 09/04/17 15:30 90 18 100/62 (75) 99 09/04/17 15:10 99 35 09/04/17 15:00 91 18 97/60 (72) 99 09/04/17 14:30 92 18 107/63 (78) 99 09/04/17 14:00 87 09/04/17 14:00 87 18 106/62 (77) 99 09/04/17 13:30 85 18 106/63 (77) 100 09/04/17 13:00 86 18 105/65 (78) 99 09/04/17 12:22 99 35 09/04/17 12:00 87 09/04/17 12:00 99.1 87 18 103/64 (77) 99 09/04/17 12:00 35 09/04/17 11:33 92 18 108/62 (77) 99 09/04/17 11:00 88 18 105/65 (78) 98 09/04/17 10:30 91 18 108/68 (81) 98 09/04/17 10:00 86 18 103/61 (75) 99 09/04/17 10:00 86 09/04/17 09:30 90 18 109/68 (82) 99 09/04/17 09:00 92 18 112/69 (83) 99 09/04/17 08:30 88 18 104/65 (78) 99 09/04/17 08:00 97.2 86 18 99/61 (74) 98 09/04/17 08:00 35 09/04/17 08:00 86 09/04/17 07:37 98 35 09/04/17 07:30 86 18 100/63 (75) 99 09/04/17 07:00 84 18 101/62 (75) 100 09/04/17 06:00 92 09/04/17 04:00 40 09/04/17 04:00 94 09/04/17 04:00 98.3 94 18 109/66 (80) 99 09/04/17 03:44 99 40 09/04/17 02:00 98 09/04/17 00:19 100 40 09/04/17 00:00 98.3 85 18 109/62 (78) 100 09/04/17 00:00 40 09/04/17 00:00 85 09/03/17 22:00 80 09/03/17 20:07 100 40 09/03/17 20:00 40 09/03/17 20:00 98.2 92 18 103/62 (76) 100 09/03/17 20:00 92 I/O 09/03/17 09/03/17 09/03/17 09/04/17 09/04/17 09/04/17 07:00 15:00 23:00 07:00 15:00 23:00 Intake Total 1084 ml 889 ml 1295 ml 1310 ml 350 ml 852 ml Output Total 650 ml 900 ml 550 ml 1875 ml Balance 434 ml 889 ml 395 ml 760 ml 350 ml -1023 ml IV Total 650 ml 889 ml 650 ml 600 ml 350 ml 125 ml Tube Feeding 379 ml 645 ml 655 ml 667 ml Tube Irrigant 55 ml 55 ml 60 ml Output Urine Total 550 ml 750 ml 450 ml 875 ml Stool Total 100 ml 150 ml 100 ml 1000 ml Result Diagram: 09/03/1744409/03/17444 Objective Remarks GENERAL: SKIN: Warm and dry. HEAD: Atraumatic. Normocephalic. EYES: Pupils equal and round. No scleral icterus. No injection or drainage. ENT: No nasal bleeding or discharge. Mucous membranes pink and moist. NECK: Trachea midline. No JVD. CARDIOVASCULAR: Regular rate and rhythm. RESPIRATORY: No accessory muscle use. Clear to auscultation. Breath sounds equal bilaterally. GASTROINTESTINAL: Abdomen soft, non-tender, nondistended. Hepatic and splenic margins not palpable. MUSCULOSKELETAL: Extremities without clubbing, cyanosis, or edema. No obvious deformities. NEUROLOGICAL: Awake and alert. No obvious cranial nerve deficits. Motor grossly within normal limits. Five out of 5 muscle strength in the arms and legs. Normal speech. PSYCHIATRIC: Appropriate mood and affect; insight and judgment normal. Assessment and Plan Assessment and Plan IMPRESSION RESPIRATORY FAILURE COPD AFIB HTN PVD CAD PLAN VENT SUPPORT BRONCHODILATOR THERAPY WEAN OFF VENT TOLERATED Goran Zimmer MD September 04, 2017 19:55
[2017-09-04] MEDS: ATORVASTATIN 40 MG TAB PO SCH (20:15)
[2017-09-05] VITALS (31 sets, daily range): BP systolic 87–133; BP diastolic 53–75; PULSE 82–101; RESP 0–18; TEMP 97.3–99.3; O2SAT 97–100
[2017-09-05] MEDS: MIDAZOLAM 50 MG/NS 50 ML DRIP Premix IV PRN ×3 (02:25→21:04)
[2017-09-05] MEDS: CHLORHEXIDINE GLUCONATE 2 % 1 PACK (2 CLOTHS) TOP SCH ×2 (04:00→22:59)
[2017-09-05] MEDS: INSULIN ASPART SUPPLEMENTAL SCALE SQ SCH ×5 (04:00→21:03)
[2017-09-05 04:25] LABS: BASOPHIL % 0.1 % (0.0-2.0); HEMATOCRIT 31.4 % (39.0-51.0); HEMOGLOBIN 10.5 GM/DL (13.0-17.0); LYMPH % 2.9 % (9.0-44.0); LYMPHOCYTE # 0.3 TH/MM3 (1.0-4.8); MEAN CORPUSCULAR HEMOGLOBIN 31.1 PG (27.0-34.0); MEAN CORPUSCULAR HGB CONC 33.5 % (32.0-36.0); MEAN PLATELET VOLUME 8.8 FL (7.0-11.0); MONO % 3.8 % (0.0-8.0); MONOCYTE # 0.4 TH/MM3 (0-0.9); NEUT % 93.2 % (16.0-70.0); PLATELET COUNT 54 TH/MM3 (150-450); RED BLOOD COUNT 3.38 MIL/MM3 (4.50-5.90); RED CELL DISTRIBUTION WIDTH 17.6 % (11.6-17.2); WHITE BLOOD COUNT 9.6 TH/MM3 (4.0-11.0)
[2017-09-05 04:46] LABS: ALBUMIN 1.7 GM/DL (3.4-5.0); AST (GOT) 30 U/L (15-37); BICARBONATE 27.2 MEQ/L (21.0-32.0); BLOOD UREA NITROGEN 37 MG/DL (7-18); CALCIUM 7.6 MG/DL (8.5-10.1); CHLORIDE 113 MEQ/L (98-107); CREATININE 0.66 MG/DL (0.60-1.30); GLOMERULAR FILTRATION RATE 121 ML/MIN (>89); GLUCOSE,RANDOM 278 MG/DL (74-106); SODIUM (NA) 149 MEQ/L (136-145)
[2017-09-05 04:47] LABS: ALT (GPT) 39 U/L (12-78)
[2017-09-05 04:50] LABS: ALKALINE PHOSPHATASE 146 U/L (45-117); TOTAL BILIRUBIN ADULT 0.3 MG/DL (0.2-1.0); TOTAL PROTEIN 4.2 GM/DL (6.4-8.2)
[2017-09-05] MEDS: ISOSORBIDE MONONITRATE 60 MG CR TAB (IMDUR) PO SCH ×2 (05:24→23:00)
[2017-09-05] MEDS: PANTOPRAZOLE SODIUM 40 MG VIAL IV PUSH SCH ×2 (05:24→17:26)
[2017-09-05] MEDS: RESP: BUDESONIDE 0.5 MG/2 ML NEB NEB SCH ×2 (07:58→19:44)
[2017-09-05] MEDS: CHLORHEXIDINE 0.12% (ORAL KIT) 15 ML CUP MT SCH ×4 (08:00→20:00)
[2017-09-05] MEDS: FAMOTIDINE 20 MG TAB TUBE SCH ×2 (08:34→21:03)
[2017-09-05] MEDS: ENOXAPARIN SODIUM 40 MG/0.4 ML SYRINGE SQ SCH (08:34)
[2017-09-05] MEDS: FUROSEMIDE 20 MG/2 ML VIAL IV PUSH SCH (08:34)
[2017-09-05] MEDS: ASPIRIN 81 MG CHEW TAB CHEW SCH (08:34)
[2017-09-05] MEDS: methylPREDNISolone SOD SUCC 125 MG/2 ML VIAL IV PUSH SCH ×2 (08:34→21:13)
[2017-09-05] MEDS: SODIUM CHLORIDE 0.9% FLUSH 10 ML FLUSH IV FLUSH SCH ×3 (08:35→20:54)
[2017-09-05] MEDS: INSULIN DETEMIR 100 UNITS/ML VIAL SQ SCH ×2 (08:35→21:02)
[2017-09-05] MEDS: fentaNYL DRIP 250 ML IV PRN ×2 (08:36→18:33)
--- NOTE | 2017-09-05 13:48 | HHI.HCPN ---
Reason for visit a. To assist with evaluation and management of symptoms including: dyspnea, pain b. To assist medical decision maker(s) with: better understanding of current medical conditions; weighing benefits/burdens of medical treatment options; making medical treatment decisions. . Subjective/Interval History Mr. Salcedo is a 66 yo male admitted with hypoxic respiratory failure. Follow-up visit for symptom management of pain and dyspnea as well as clarification of medical treatment goals. Patient was transferred back to the intensive care unit on 09/01/17 secondary to increased oxygen requirements and deteriorating respiratory status. He is now back on ventilatory support for the third time this hospitalization. FiO2 35%, rate 18, PEEP 5. Afebrile. Leukocytosis has resolved. Repeat chest x-ray on 09/02/2017 showing clear lungs without infiltrate, nodule or mass. Sputum culture from 09/01/2017 growing Pseudomonas, possibly colonization. Infectious disease is following. Antibiotics were discontinued; following cultures. Patient is sedated on Versed 6 mg/h and fentanyl 250 mcg/h. He arouses easily to verbal stimuli, appears intermittently agitated thrashing head from side to side when awake. Able to follow simple one-step commands; appears to nod/shake head appropriately to yes/no questions. Family expressing ongoing aggressive goals. Plan to proceed with trach/PEG tube placement if indicated but would like to allow the patient as much time as possible to see if he improves. . Advance Directives Living Will: Copy in medical record Advance Directive Specifics Documented care wishes: Living will appears to be completed on April 19, 2014. Document can be viewed in patient's EMR. . Objective Vital Signs Date Time Temp Pulse Resp B/P (MAP) Pulse Ox O2 Delivery O2 Flow Rate FiO2 09/05/17 12:48 98 35 09/05/17 12:00 95 09/05/17 12:00 35 09/05/17 12:00 99.1 95 18 106/64 (78) 98 09/05/17 11:30 85 18 97/58 (71) 98 09/05/17 11:00 91 18 103/67 (79) 98 09/05/17 10:00 88 18 101/61 (74) 99 09/05/17 10:00 88 09/05/17 09:30 90 18 111/69 (83) 98 09/05/17 09:00 91 18 119/73 (88) 98 09/05/17 08:30 92 18 112/69 (83) 98 09/05/17 08:00 99.2 95 18 121/72 (88) 99 09/05/17 08:00 35 09/05/17 08:00 95 09/05/17 07:59 99 35 09/05/17 07:30 90 18 98/63 (75) 99 09/05/17 07:00 86 18 99/65 (76) 99 09/05/17 06:00 93 09/05/17 04:00 35 09/05/17 04:00 99.0 101 18 118/69 (85) 98 09/05/17 04:00 101 09/05/17 03:38 99 35 09/05/17 02:00 88 09/05/17 00:00 101 09/05/17 00:00 35 09/05/17 00:00 99.3 101 18 133/75 (94) 100 09/04/17 23:00 99 35 09/04/17 22:00 105 09/04/17 20:00 35 09/04/17 20:00 99 09/04/17 20:00 98.8 99 18 112/64 (80) 99 09/04/17 19:18 99 35 09/04/17 18:00 87 09/04/17 17:30 93 18 112/61 (78) 98 09/04/17 17:00 103 6 126/77 (93) 98 09/04/17 16:30 85 18 103/64 (77) 99 09/04/17 16:00 98.9 87 18 101/64 (76) 98 09/04/17 16:00 35 09/04/17 16:00 87 09/04/17 15:30 90 18 100/62 (75) 99 09/04/17 15:10 99 35 09/04/17 15:00 91 18 97/60 (72) 99 09/04/17 14:30 92 18 107/63 (78) 99 09/04/17 14:00 87 09/04/17 14:00 87 18 106/62 (77) 99 Intake & Output 09/05/17 09/05/17 07:00 19:00 Intake Total 961 ml 250 ml Output Total 550 ml Balance 411 ml 250 ml IV Total 300 ml 250 ml Tube Feeding 601 ml Tube Irrigant 60 ml Output Urine Total 350 ml Stool Total 200 ml . Physical Exam CONSTITUTIONAL/GENERAL: This is an adequately nourished, male currently intubated on [facility] vent. TUBES/LINES/DRAINS: CVL, dobbhoff, ETT, Lopez, Rectal tube, Podus boot and SCD on right leg SKIN: Ecchymoses and abrasions on upper extremities; BUE weepy. No wounds seen anteriorly. Skin temperature appropriate. Not diaphoretic. HEAD: Atraumatic. Normocephalic. EYES: Pupils equal and round. No scleral icterus. No injection or drainage. Fundi not examined. ENT: Hearing grossly normal. Nose without bleeding or purulent drainage. NECK: Trachea midline. Supple, nontender. No palpable thyroid enlargement or nodularity. CARDIOVASCULAR: Regular rate and rhythm without murmurs, gallops, or rubs. No JVD. Peripheral pulses symmetric. RESPIRATORY/CHEST: Remains intubated on mechanical ventilation. FiO2 35%. Bibasilar breath sounds diminished. GASTROINTESTINAL: Abdomen soft, non-tender, nondistended. No guarding. Bowel sounds present. Rectal tube with brown, soft-liquid stool GENITOURINARY: Without palpable bladder distension. Indwelling urinary cath draining ana urine MUSCULOSKELETAL: Extremities without clubbing or cyanosis. Left BKA. Hands swollen bilaterally. Right foot appears more dusky today, warm to touch. LYMPHATICS: No palpable cervical or supraclavicular adenopathy. NEUROLOGICAL: Sedated on Versed and fentanyl. Arouses easily to verbal stimuli. Follows simple one-step commands. PSYCHIATRIC: Unable to assess given clinical condition . Diagnostic Tests Laboratory Laboratory Tests Test 09/02/17 20:35 09/02/17 21:00 09/03/17 04:45 09/03/17 18:00 Hemoglobin 9.6 GM/DL (13.0-17.0) 9.9 GM/DL (13.0-17.0) Hematocrit 28.6 % (39.0-51.0) 29.1 % (39.0-51.0) Blood Urea Nitrogen 32 MG/DL (7-18) 36 MG/DL (7-18) Creatinine 0.77 MG/DL (0.60-1.30) 0.71 MG/DL (0.60-1.30) Random Glucose 254 MG/DL (74-106) 186 MG/DL (74-106) Total Protein 4.2 GM/DL (6.4-8.2) 4.3 GM/DL (6.4-8.2) Calcium Level 7.3 MG/DL (8.5-10.1) 7.6 MG/DL (8.5-10.1) Sodium Level 147 MEQ/L (136-145) 148 MEQ/L (136-145) Potassium Level 3.7 MEQ/L (3.5-5.1) 4.0 MEQ/L (3.5-5.1) Chloride Level 111 MEQ/L (98-107) 111 MEQ/L (98-107) Carbon Dioxide Level 29.2 MEQ/L (21.0-32.0) 27.1 MEQ/L (21.0-32.0) Anion Gap 7 MEQ/L (5-15) 10 MEQ/L (5-15) Estimat Glomerular Filtration Rate 101 ML/MIN (>89) 111 ML/MIN (>89) Protein Corrected Calcium 9.0 MG/DL (8.5-10.1) Total Creatine Kinase 254 U/L (39-308) Creatine Kinase MB 3.7 NG/ML (0.5-3.6) Troponin I 0.38 NG/ML (0.02-0.05) White Blood Count 10.9 TH/MM3 (4.0-11.0) Red Blood Count 3.17 MIL/MM3 (4.50-5.90) Mean Corpuscular Volume 91.6 FL (80.0-100.0) Mean Corpuscular Hemoglobin 31.2 PG (27.0-34.0) Mean Corpuscular Hemoglobin Concent 34.1 % (32.0-36.0) Red Cell Distribution Width 17.8 % (11.6-17.2) Platelet Count 78 TH/MM3 (150-450) Mean Platelet Volume 9.2 FL (7.0-11.0) Neutrophils (%) (Auto) 93.5 % (16.0-70.0) Lymphocytes (%) (Auto) 3.7 % (9.0-44.0) Monocytes (%) (Auto) 2.8 % (0.0-8.0) Eosinophils (%) (Auto) 0.0 % (0.0-4.0) Basophils (%) (Auto) 0.0 % (0.0-2.0) Neutrophils # (Auto) 10.1 TH/MM3 (1.8-7.7) Lymphocytes # (Auto) 0.4 TH/MM3 (1.0-4.8) Monocytes # (Auto) 0.3 TH/MM3 (0-0.9) Eosinophils # (Auto) 0.0 TH/MM3 (0-0.4) Basophils # (Auto) 0.0 TH/MM3 (0-0.2) CBC Comment AUTO DIFF Differential Comment AUTO DIFF CONFIRMED Platelet Estimate LOW (NORMAL) Platelet Morphology Comment NORMAL (NORMAL) Polychromasia 2.0 % (0.0-1.9) Ovalocytes 1+ (NORMAL) Red Cell Morphology Comment (NORMAL) Activated Partial Thromboplast Time 20.4 SEC (24.3-30.1) Albumin 1.8 GM/DL (3.4-5.0) Alkaline Phosphatase 117 U/L (45-117) Aspartate Amino Transf (AST/SGOT) 34 U/L (15-37) Alanine Aminotransferase (ALT/SGPT) 43 U/L (12-78) Total Bilirubin 0.4 MG/DL (0.2-1.0) Stool C. difficile Toxin (PCR) NEGATIVE (NEGATIVE) Stl C. difficile Toxin Epiderm 027 PRESUMPTIVE NEGATIVE Test 09/04/17 03:40 09/05/17 04:04 Activated Partial Thromboplast Time 20.5 SEC (24.3-30.1) 19.8 SEC (24.3-30.1) White Blood Count 9.6 TH/MM3 (4.0-11.0) Red Blood Count 3.38 MIL/MM3 (4.50-5.90) Hemoglobin 10.5 GM/DL (13.0-17.0) Hematocrit 31.4 % (39.0-51.0) Mean Corpuscular Volume 93.0 FL (80.0-100.0) Mean Corpuscular Hemoglobin 31.1 PG (27.0-34.0) Mean Corpuscular Hemoglobin Concent 33.5 % (32.0-36.0) Red Cell Distribution Width 17.6 % (11.6-17.2) Platelet Count 54 TH/MM3 (150-450) Mean Platelet Volume 8.8 FL (7.0-11.0) Neutrophils (%) (Auto) 93.2 % (16.0-70.0) Lymphocytes (%) (Auto) 2.9 % (9.0-44.0) Monocytes (%) (Auto) 3.8 % (0.0-8.0) Eosinophils (%) (Auto) 0.0 % (0.0-4.0) Basophils (%) (Auto) 0.1 % (0.0-2.0) Neutrophils # (Auto) 9.0 TH/MM3 (1.8-7.7) Lymphocytes # (Auto) 0.3 TH/MM3 (1.0-4.8) Monocytes # (Auto) 0.4 TH/MM3 (0-0.9) Eosinophils # (Auto) 0.0 TH/MM3 (0-0.4) Basophils # (Auto) 0.0 TH/MM3 (0-0.2) CBC Comment AUTO DIFF Differential Comment AUTO DIFF CONFIRMED Platelet Estimate LOW (NORMAL) Platelet Morphology Comment NORMAL (NORMAL) Blood Urea Nitrogen 37 MG/DL (7-18) Creatinine 0.66 MG/DL (0.60-1.30) Random Glucose 278 MG/DL (74-106) Total Protein 4.2 GM/DL (6.4-8.2) Albumin 1.7 GM/DL (3.4-5.0) Calcium Level 7.6 MG/DL (8.5-10.1) Alkaline Phosphatase 146 U/L (45-117) Aspartate Amino Transf (AST/SGOT) 30 U/L (15-37) Alanine Aminotransferase (ALT/SGPT) 39 U/L (12-78) Total Bilirubin 0.3 MG/DL (0.2-1.0) Sodium Level 149 MEQ/L (136-145) Potassium Level 4.3 MEQ/L (3.5-5.1) Chloride Level 113 MEQ/L (98-107) Carbon Dioxide Level 27.2 MEQ/L (21.0-32.0) Anion Gap 9 MEQ/L (5-15) Estimat Glomerular Filtration Rate 121 ML/MIN (>89) . Result Diagram: 09/05/17 0404 09/05/17 0404 Imaging Last 72 hours Impressions Abdomen X-Ray 09/03/17 0000 Signed Impressions: CONCLUSION: Nasogastric tube in good position. Nonspecific bowel gas pattern. . Procedures 08/16/2017: Intubation/reintubation 08/25/2017: Extubation 09/01/2017: Reintubation . Assessment and Plan Disease Oriented Problem List: (1) Peripheral vascular disease (2) Pseudomonas pneumonia (3) COPD exacerbation (4) Cardiomyopathy (5) DM type 2 (diabetes mellitus, type 2) (6) CAD (coronary artery disease) (7) COPD (chronic obstructive pulmonary disease) (8) Hyperlipidemia (9) Paroxysmal atrial fibrillation Symptom Scale: (1) Dyspnea 0-10 Scale: Unable to quantify (2) Pain 0-10 Scale: Unable to quantify Pertinent Non-Medical Issues Psychosocial: Patient is originally from [place]. Patient has been for many years. He has 1 adult daughter (Poly) and 2 grand-children. Grandson ( Tristin) and Granddaughter (Deo). Granddaughter (Deo) identifies as male and is to [employer]. Patient's highest education level is eighth grade. 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 Spiritual: Shinto shelbi Legal: Per [place] statutes, in the absence of written advanced directives health care proxy decision making falls to the patient's daughter (Poly). Ethical issues impacting care: No known ethical issues impacting care at this time. . Important Contacts Poly Salcedo, daughter: [phone] Tristin Salcedo, grandson: [phone] Deo Salcedo, granddaughter - identifies as male : [phone] ( to [employer]) Juan Carlos Salcedo, brother: [phone] . Prognosis Patient is a 66 yo male with significant lung disease resulting in 4 hospitalizations in the past 6 months. He is currently vent dependent and unable to tolerate CPAP trails; given his advanced lung disease it will be difficult to wean him off the ventilator without a tracheostomy. Given patient' s complex medical history, he will be high risk for ongoing complications and decline. . Code Status: Full Code Plan * FULL CODE * Decision-making: Patient does NOT have insight or judgment concerning his medical conditions at this time. Per [place] statutes, in the absence of written advanced directives health care proxy decision making falls to the patient's daughter (Poly). * AGGRESSIVE GOALS * Spoke to patient's daughter (Poly) via telephone. Questions answered to the best of my ability; reviewed medical treatment goals i.e. possible trach/PEG tube. Poly states, " They told me they could do a reversible trach. So that's what we want." I explained that tracheostomies are generally reversible, but the unknown variable is whether or not the patient will become medically stable enough to have the trach reversed. Plan to proceed with trach/PEG tube placement if indicated but would like to allow the patient as much time as possible to see if he improves. * Discussed current medical treatment goals with RN (Cee). * Symptom management: == Dyspnea: Patient admitted with severe dyspnea s/p being intubated in the field; known history of severe underlying lung disease. 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 Treated for MRSA pneumonia. Patient was transferred back to the intensive care unit on 09/01/17; he is now back on ventilatory support for the third time this hospitalization. Repeat chest x-ray showing no acute disease process. Repeat sputum culture growing Pseudomonas, possibly colonization per ID. == Pain: Multifactoral. Patient has a known history of chronic back pain, CAD, severe peripheral vascular disease status post left BKA. Additional contributing factors may include invasive lines, immobility etc. currently sedated on Fentanyl 35 mcg/h and Versed drip 3 mg/h * Palliative care will continue to follow this patient throughout his hospitalization to establish stress, assist with symptom management and clarification of medical treatment goals. . Attestation To help prompt me to consider important information that might be impacting today's encounter and assessment, information from prior notes written by myself or my colleagues may have been "brought forward" into today's note. My signature on this note, however, is an attestation that I personally performed the exam, history, and/or decision-making noted today, and, unless otherwise indicated, the interactions with patient, family, and staff as well as the review of records all occurred today. I also attest that the listed assessment and stated plan reflect my best clinical judgment today based on the combination of historical information, prior notes, and today's exam/ interactions. When time spent is documented, it refers only to time spent today by the signer, or if indicated, combined time spent today by collaborating physician/nurse practitioner. . Judith Salazar September 05, 2017 13:48
--- NOTE | 2017-09-05 14:57 | HHI.CCPN ---
Subjective Remarks/Hospital Course 66-year-old male who was brought to the ER after he developed shortness of breath and altered mental status. At skilled nursing he was placed on nasal cannula 2 L because of his history of COPD as he uses it off and on. EMS was called when patient developed agonal respirations with O2 sats in the low 80s on their arrival with pink frothy sputum. Patient was intubated in the field after receiving etomidate and Versed. His systolic blood pressure was 190s following intubation and dropped to the 60 systolic range and he was started on dopamine in the field by EMS. He was brought to the ER at [facility] and noted to have elevated troponin on his admitting labs. He was accepted for admission by critical care medicine service. He underwent a CT chest to evaluate for PE which was negative for PE however did show severe emphysematous changes with groundglass opacities. History is significantly limited by the fact that he is intubated. When I evaluated the patient he was sedated, orally intubated on mechanical ventilation. History was obtained by reviewing records. SUBJ 08/14/17: Remains intubated sedated, a CPAP was attempted but patient failed almost immediately with severe tachypnea. Continues to have bilateral expiratory wheezing and diminished air entry. Initial troponin was 3.18 now down trending 08/15/17: Patient remains intubated sedated with Versed and fentanyl. On sedation hold wakes up easily follows commands. On attempted CPAP patient became tachypneic with labored breathing using accessory muscles. Not ready for extubation. Pseudomonas growing in sputum. Increase Azactam to 2 g IV every 8 hours 08/16/17: Tolerating CPAP trials better today. Sputum culture growing Pseudomonas pansensitive. Will attempt to extubate with BiPAP use if needed 08/17/17: Reintubated yesterday evening following severe respiratory distress and severe wheezing. Currently remains sedated on vent support. Persistent wheezing. 08/18: Remains intubated sedated. Will initiate CPAP trials again. Patient has severe emphysema and will be difficult to wean to extubate. Wheezing persists. 08/19: Remains sedated, orally intubated on mechanical ventilation. Significant bloody respiratory secretions being suctioned from ET tube. On heparin for anticoagulation. Will hold Coumadin. 08/20: Sedated, arousable, orally intubated on mechanical ventilation. Failing CPAP trials. Heparin held yesterday due to increasing bloody respiratory secretions. 08/21: Remains sedated wakes up easily. Failed CPAP trial immediately today due to tachypnea and respiratory distress. No significant bloody secretions. Chest x-ray was clear. I discussed briefly with daughter. Poly Salcedo about possibility of trach. She needs more time to decide and needs time to discuss with family. I have consulted palliative care to address goals of care. Vent day 9 today. With his some advanced emphysema it will be difficult to wean him off the ventilator without tracheostomy 08/22: Patient is more critical becoming more septic. White count yesterday was 27.5. Today he spiked fever 101.3, tachycardic heart rate in 120s borderline hypotensive.. Chest x-ray shows developing left base infiltrate. Will continue cefepime panculture ordered. Vancomycin 1.25 g 1 and pharmacy to dose. Normal saline bolus 2 L ordered. 08/23: T-max 100.0. Hemoglobin downtrending now 7.2. Patient continues to be borderline hypotensive, monitor Hgb. Patient was tentatively scheduled for percutaneous tracheostomy this a.m. however unable to obtain consent from family members. Sodium level starting to downtrend with addition of free water flushes. 08/24: Hemodynamically stable throughout the night. Transfusion 1 unit of packed cells placed on hold with cancellation percutaneous tracheostomy due to lack of consent. H&H pending this afternoon, will transfuse for hemoglobin less than 7. Patient awake continuing on CPAP for greater than 4 hours today. 08/25: more awake. passed SBT. discussion with family and patient: he would want to be re-intubated and pursue tracheostomy if he fails again. 08/26: remained extubated. denies complaints. high risk for reintubation. wants aggressive care and tracheostomy if re-intubated. 09/01: Critical care reconsulted for worsening respiratory status. Patient was transferred to the ICU from the floor due to increasing O2 requirement and placed on a nonrebreather facemask. He was reportedly tachypneic using accessory muscles of respiration. There was some concern regarding aspiration. I evaluated the patient following his arrival to the ICU. He was breathing in the 30s using accessory muscles of respiration on a nonrebreather facemask. He is awake however not really able to give me details of history due to respiratory distress. Patient will be placed on BiPAP and Precedex in order to avoid intubation. He does have significantly advanced COPD and recently completed a course of antibiotics. Will restart empiric antibiotics with Zyvox/ Levaquin/Flagyl IV. 09/02: Patient was intubated yesterday(09/01) for worsening respiratory distress despite BiPAP and placed on mechanical ventilation. Remains sedated, orally intubated on mechanical ventilation. On Levophed for pressor support. Hemoglobin 7.5 this morning. 2 units PRBCs ordered to be transfused. Borderline elevated troponin noted. 09/03: Remains sedated, orally intubated on mechanical ventilation. Off levophed. 2 units PRBCs transfused yesterday 09/04: Sedated, arousable, orally intubated on mechanical ventilation. Tolerating tube feeds. Failed CPAP trials. 09/05: Remains sedated, orally intubated on mechanical ventilation. Tolerating tube feeds. Failing CPAP trials. Objective Vital Signs Date Time Temp Pulse Resp B/P (MAP) Pulse Ox O2 Delivery O2 Flow Rate FiO2 09/05/17 14:00 84 09/05/17 12:48 98 35 09/05/17 12:00 99.1 18 106/64 (78) 09/02/17 19:00 Mechanical Ventilator 09/01/17 08:23 2.00 Intake and Output 09/05/17 09/05/17 09/06/17 08:00 16:00 00:00 Intake Total 711 ml 250 ml Output Total 550 ml Balance 161 ml 250 ml Result Diagram: 09/05/17 0404 09/05/17 0404 Imaging Last Impressions Chest X-Ray 08/23/17 0600 Signed Impressions: Service Date/Time: Wednesday, August 23, 2017 04:23 - CONCLUSION: Clear lungs. Ricki Metzger Jr., MD CT Angiography 08/13/17 0000 Signed Impressions: Service Date/Time: Sunday, August 13, 2017 07:25 - CONCLUSION: 1. No CT evidence for pulmonary embolism as questioned. 2. Moderate to severe upper lobe predominant centrilobular emphysema. 3. Patchy bibasilar groundglass opacities likely reflecting atelectasis although differential considerations include aspiration. 4. Multiple 4-6mm bilateral groundglass and solid nodules, likely infectious/inflammatory. Recommend followup CT examination in approximately 6 months per 2017 Fleischner criteria (6mm nodule). Steve Barajas MD Last Impressions Chest X-Ray 08/13/17 0414 Signed Impressions: Service Date/Time: Sunday, August 13, 2017 04:28 - CONCLUSION: Lungs are grossly clear. ET tube in good position. Abel Cannon MD CT Angiography 08/13/17 0000 Signed Impressions: Service Date/Time: Sunday, August 13, 2017 07:25 - CONCLUSION: 1. No CT evidence for pulmonary embolism as questioned. 2. Moderate to severe upper lobe predominant centrilobular emphysema. 3. Patchy bibasilar groundglass opacities likely reflecting atelectasis although differential considerations include aspiration. 4. Multiple 4-6mm bilateral groundglass and solid nodules, likely infectious/inflammatory. Recommend followup CT examination in approximately 6 months per 2017 Fleischner criteria (6mm nodule). Steve Barajas MD Objective Remarks GEN: middle-aged male who appears much older than stated age, sedated, orally intubated on mechanical ventilation HEENT: Pallor present, no icterus, tongue/ mucosa moist. Neck: No JVD Chest/Pulm: Orally intubated on mechanical ventilation, good air entry bilaterally though decreased at bases, scattered rhonchi, no wheezing or crackles. CVS: S1-S2 regular, no gallop or murmur GI/abdomen: soft, nontender, no guarding. Extremities: warm bilaterally, 2+ peripheral edema bilateral upper extremity edema. Left lower extremity status post BKA Neuro: Sedated, arousable, orally intubated, moving all extremities. A/P Assessment and Plan Assessment: Acute on chronic hypoxic and hypercarbic respiratory failure Acute metabolic encephalopathy Severe sepsis Acute COPD exacerbation NSTEMI Pseudomonas pneumonia Suspected aspiration MRSA Ventilator associated pneumonia Advanced COPD/emphysema Anemia CAD History of cardiomyopathy Diabetes Hyperlipidemia Hypertension Paroxysmal atrial fibrillation. Peripheral vascular disease Plan: Neuro: - Follow neuro status. -Sedation with Versed/fentanyl gtt. Titrate off propofol in view of hypotension. -Daily sedation vacation Cardiovascular: -Was on Isosorbide mononitrate, atorvastatin, lasix per Dr. Gary. Holding Isosorbide, Lasix and lisinopril due to increasing BUN, hypotension -Hold I -Holding heparin and Coumadin since 08/19 in view of hemoptysis currently. Continue Lovenox 40 mg sq daily -Continue aspirin. Cardiology Dr. Gary. 2D echo EF 50% - Borderline troponin elevation on 09/02 -Dr. Gary recommends nuclear stress test when able to tolerate. Pulmonary: - patient and family goals as of my discussion 08/25: aggressive care including tracheostomy if he gets reintubated. -Failed extubation 08/16/2017, reintubated approximately after 6-8 hours. Total vent day 13 -Patient will need prolonged ventilatory support and will need trach due to severe emphysema, and pneumonia and sepsis -CT of the chest showed severe emphysema and pneumonia -Starting IV Solu-Medrol, continue bronchodilators inhaled budesonide -Starting antibiotics on 09/01 due to worsening respiratory status with question of aspiration. Ordered Zyvox/Levaquin/Flagyl IV -Failed BiPAP so intubated and placed on mechanical ventilation on 09/01 -Failing CPAP trials. Will require tracheostomy and PEG tube. GI/liver: -Started tube feeds on 09/02, advanced to goal. Renal/: -Lasix daily. Hold Aldactone. -Strict intake output, monitor and replete electrodes, follow BUN/creatinine. ID: -Sputum culture growing pansensitive pseudomonas 08/13/17, MRSA on 08/22 -Ordered empiric antibiotic coverage with IV Zyvox/Levaquin/Flagyl -Reconsulted ID to manage abx. Endocrine: -Watch for hypoglycemia, SSI for glycemic control if needed. -Currently on Levemir every 12, SSI Heme: -Follow CBC and coags. Holding heparin and Coumadin in view of hemoptysis. -Transfused 2 units PRBCs in view of non-ST elevation MA to bring hemoglobin up to 9 g percent Prophylaxis: -Pepcid/SCDs. Lovenox 40 mg subcutaneously (Full anticoagulation held due to hemoptysis) and will continue prophylactic dose provided hemoptysis does not recur or worsen. D/W [employer], D/W RT. Condition critical. Time spent on critical care excluding procedures 35 minute Lester Crawford MD September 05, 2017 14:57
--- NOTE | 2017-09-05 16:11 | HHI.PR ---
Subjective Remarks SEDATED ON VENT SUPPORT Objective Vital Signs Date Time Temp Pulse Resp B/P (MAP) Pulse Ox O2 Delivery O2 Flow Rate FiO2 09/05/17 16:01 98 35 09/05/17 14:00 84 09/05/17 12:48 98 35 09/05/17 12:00 95 09/05/17 12:00 35 09/05/17 12:00 99.1 95 18 106/64 (78) 98 09/05/17 11:30 85 18 97/58 (71) 98 09/05/17 11:00 91 18 103/67 (79) 98 09/05/17 10:00 88 18 101/61 (74) 99 09/05/17 10:00 88 09/05/17 09:30 90 18 111/69 (83) 98 09/05/17 09:00 91 18 119/73 (88) 98 09/05/17 08:30 92 18 112/69 (83) 98 09/05/17 08:00 99.2 95 18 121/72 (88) 99 09/05/17 08:00 35 09/05/17 08:00 95 09/05/17 07:59 99 35 09/05/17 07:30 90 18 98/63 (75) 99 09/05/17 07:00 86 18 99/65 (76) 99 09/05/17 06:00 93 09/05/17 04:00 35 09/05/17 04:00 99.0 101 18 118/69 (85) 98 09/05/17 04:00 101 09/05/17 03:38 99 35 09/05/17 02:00 88 09/05/17 00:00 101 09/05/17 00:00 35 09/05/17 00:00 99.3 101 18 133/75 (94) 100 09/04/17 23:00 99 35 09/04/17 22:00 105 09/04/17 20:00 35 09/04/17 20:00 99 09/04/17 20:00 98.8 99 18 112/64 (80) 99 09/04/17 19:18 99 35 09/04/17 18:00 87 09/04/17 17:30 93 18 112/61 (78) 98 09/04/17 17:00 103 6 126/77 (93) 98 09/04/17 16:30 85 18 103/64 (77) 99 I/O 09/04/17 09/04/17 09/04/17 09/05/17 09/05/17 09/05/17 07:00 15:00 23:00 07:00 15:00 23:00 Intake Total 1310 ml 350 ml 852 ml 961 ml 250 ml Output Total 550 ml 1875 ml 550 ml Balance 760 ml 350 ml -1023 ml 411 ml 250 ml IV Total 600 ml 350 ml 125 ml 300 ml 250 ml Tube Feeding 655 ml 667 ml 601 ml Tube Irrigant 55 ml 60 ml 60 ml Output Urine Total 450 ml 875 ml 350 ml Stool Total 100 ml 1000 ml 200 ml Result Diagram: 09/05/1740309/05/17403 Objective Remarks GENERAL: SKIN: Warm and dry. HEAD: Atraumatic. Normocephalic. EYES: Pupils equal and round. No scleral icterus. No injection or drainage. ENT: No nasal bleeding or discharge. Mucous membranes pink and moist. NECK: Trachea midline. No JVD. CARDIOVASCULAR: Regular rate and rhythm. RESPIRATORY: No accessory muscle use. Clear to auscultation. Breath sounds equal bilaterally. GASTROINTESTINAL: Abdomen soft, non-tender, nondistended. Hepatic and splenic margins not palpable. MUSCULOSKELETAL: Extremities without clubbing, cyanosis, or edema. No obvious deformities. NEUROLOGICAL: Awake and alert. No obvious cranial nerve deficits. Motor grossly within normal limits. Five out of 5 muscle strength in the arms and legs. Normal speech. PSYCHIATRIC: Appropriate mood and affect; insight and judgment normal. Assessment and Plan Assessment and Plan IMPRESSION RESPIRATORY FAILURE COPD AFIB HTN PVD CAD PLAN VENT SUPPORT BRONCHODILATOR THERAPY WEAN OFF VENT TOLERATED F/U Goran Carrasco MD September 05, 2017 16:11
[2017-09-05] MEDS: SODIUM CHLOR 0.9% 1000 ML INJ 1,000 ML IV SCH (18:32)
[2017-09-05] MEDS: ATORVASTATIN 40 MG TAB PO SCH (21:03)
[2017-09-05] MEDS: CHLORHEXIDINE GLUCONATE 2 % 1 PACK (2 CLOTHS)(taper/protocol) TOPICAL SCH (23:00)
[2017-09-06] VITALS (33 sets, daily range): BP systolic 83–104; BP diastolic 52–67; PULSE 84–96; RESP 18; TEMP 97.5–98.8; O2SAT 94–99
[2017-09-06] MEDS: INSULIN ASPART SUPPLEMENTAL SCALE SQ SCH ×6 (00:48→19:28)
[2017-09-06] MEDS: PANTOPRAZOLE SODIUM 40 MG VIAL IV PUSH SCH ×2 (05:16→17:17)
[2017-09-06] MEDS: fentaNYL DRIP 250 ML IV PRN ×3 (05:16→22:55)
[2017-09-06 06:12] LABS: HEMATOCRIT 30.5 % (39.0-51.0); HEMOGLOBIN 10.1 GM/DL (13.0-17.0); MEAN CELL VOLUME 94.4 FL (80.0-100.0); MEAN CORPUSCULAR HEMOGLOBIN 31.2 PG (27.0-34.0); MEAN CORPUSCULAR HGB CONC 33.1 % (32.0-36.0); MEAN PLATELET VOLUME 9.6 FL (7.0-11.0); PLATELET COUNT 52 TH/MM3 (150-450); RED BLOOD COUNT 3.23 MIL/MM3 (4.50-5.90); RED CELL DISTRIBUTION WIDTH 17.5 % (11.6-17.2); WHITE BLOOD COUNT 9.5 TH/MM3 (4.0-11.0)
[2017-09-06] MEDS: CHLORHEXIDINE 0.12% (ORAL KIT) 15 ML CUP MT SCH ×4 (08:00→19:28)
[2017-09-06] MEDS: RESP: BUDESONIDE 0.5 MG/2 ML NEB NEB SCH ×2 (08:04→20:42)
[2017-09-06] MEDS: RESP: ALBUTEROL 2.5 MG/IPRATROPIUM 0.5 MG NEB (PRN) NEB (08:05)
[2017-09-06] MEDS: ASPIRIN 81 MG CHEW TAB CHEW SCH (09:36)
[2017-09-06] MEDS: FAMOTIDINE 20 MG TAB TUBE SCH ×2 (09:36→20:17)
[2017-09-06] MEDS: FUROSEMIDE 20 MG/2 ML VIAL IV PUSH SCH (09:37)
[2017-09-06] MEDS: SODIUM CHLORIDE 0.9% FLUSH 10 ML FLUSH IV FLUSH SCH ×3 (09:37→19:29)
[2017-09-06] MEDS: methylPREDNISolone SOD SUCC 125 MG/2 ML VIAL IV PUSH SCH ×2 (09:37→20:23)
[2017-09-06] MEDS: ENOXAPARIN SODIUM 40 MG/0.4 ML SYRINGE SQ SCH (09:38)
[2017-09-06] MEDS: INSULIN DETEMIR 100 UNITS/ML VIAL SQ SCH ×2 (09:38→20:17)
[2017-09-06] MEDS: MIDAZOLAM 50 MG/NS 50 ML DRIP Premix IV PRN ×2 (11:05→22:51)
--- NOTE | 2017-09-06 12:01 | HHI.HCPN ---
Reason for visit a. To assist with evaluation and management of symptoms including: dyspnea, pain b. To assist medical decision maker(s) with: better understanding of current medical conditions; weighing benefits/burdens of medical treatment options; making medical treatment decisions. . Subjective/Interval History Mr. Salcedo is a 66 yo male admitted with hypoxic respiratory failure. Follow-up visit for symptom management of pain and dyspnea as well as clarification of medical treatment goals. Patient was transferred back to the intensive care unit on 09/01/17 secondary to increased oxygen requirements and deteriorating respiratory status. He is now back on ventilatory support for the third time this hospitalization. FiO2 35%, rate 18, PEEP 5. Not tolerating SBT. Afebrile. Leukocytosis has resolved. Repeat chest x-ray on 09/02/2017 showing clear lungs without infiltrate, nodule or mass. Sputum culture from 09/01/2017 growing Pseudomonas, possibly colonization. C. difficile negative infectious disease is following. Antibiotics were discontinued; following cultures. Patient is sedated on Versed 5 mg/h and fentanyl 250 mcg/h. He arouses easily to verbal stimuli. Able to follow simple one-step commands; appears to nod/ shake head appropriately to yes/no questions. KUB on 09/03/2017 for abdominal distention showed nonspecific bowel gas pattern and NGT in good position. Tolerating artificial nutrition nutrition, Glucerna at 55 mL's per hour, without difficulty. Family expressing ongoing aggressive goals. Plan to proceed with trach/PEG tube placement if indicated but would like to allow the patient as much time as possible to see if he improves. . Advance Directives Living Will: Copy in medical record Advance Directive Specifics Documented care wishes: Living will appears to be completed on April 19, 2014. Document can be viewed in patient's EMR. . Objective Vital Signs Date Time Temp Pulse Resp B/P (MAP) Pulse Ox O2 Delivery O2 Flow Rate FiO2 09/06/17 11:30 93 18 94/55 (68) 95 09/06/17 11:20 96 35 09/06/17 11:00 90 18 101/61 (74) 97 09/06/17 10:30 92 18 104/67 (79) 96 09/06/17 10:00 93 18 99/61 (74) 96 09/06/17 10:00 93 09/06/17 09:30 94 18 98/59 (72) 94 09/06/17 09:00 94 18 96/57 (70) 95 09/06/17 08:30 91 18 96/59 (71) 95 09/06/17 08:06 99 35 09/06/17 08:00 98.2 92 18 96/61 (73) 98 09/06/17 08:00 92 09/06/17 08:00 35 09/06/17 07:30 87 18 91/56 (68) 97 09/06/17 07:00 90 18 98/61 (73) 97 09/06/17 06:00 88 09/06/17 04:09 98 35 09/06/17 04:00 86 09/06/17 04:00 35 09/06/17 04:00 98.2 86 18 88/55 (66) 99 09/06/17 02:00 84 09/06/17 00:14 98 35 09/06/17 00:00 98.2 85 18 87/52 (64) 99 09/06/17 00:00 85 09/06/17 00:00 35 09/05/17 22:00 89 09/05/17 20:00 89 09/05/17 20:00 35 09/05/17 20:00 98.2 89 18 87/53 (64) 98 09/05/17 19:44 99 35 09/05/17 18:00 88 09/05/17 16:30 87 0 102/62 (75) 97 09/05/17 16:01 98 35 09/05/17 16:00 97.3 89 5 103/67 (79) 97 09/05/17 16:00 35 09/05/17 16:00 89 09/05/17 15:30 82 0 99/58 (72) 97 09/05/17 15:00 85 6 97/59 (72) 98 09/05/17 14:30 84 11 96/57 (70) 98 09/05/17 14:00 84 09/05/17 14:00 84 18 97/59 (72) 98 09/05/17 13:30 82 1 98/60 (73) 99 09/05/17 13:00 85 1 97/58 (71) 98 09/05/17 12:48 98 35 09/05/17 12:00 95 09/05/17 12:00 35 09/05/17 12:00 99.1 95 18 106/64 (78) 98 Intake & Output 09/06/17 09/06/17 07:00 19:00 Intake Total 654 ml Output Total 600 ml Balance 54 ml Tube Feeding 594 ml Tube Irrigant 60 ml Output Urine Total 400 ml Stool Total 200 ml . Physical Exam CONSTITUTIONAL/GENERAL: This is an adequately nourished, male currently intubated on [facility] vent. TUBES/LINES/DRAINS: CVL, dobbhoff, ETT, Lopez, Rectal tube, Podus boot and SCD on right leg SKIN: Ecchymoses and abrasions on upper extremities; BUE weepy. No wounds seen anteriorly. Skin temperature appropriate. Not diaphoretic. HEAD: Atraumatic. Normocephalic. EYES: Pupils equal and round. No scleral icterus. No injection or drainage. Fundi not examined. ENT: Hearing grossly normal. Nose without bleeding or purulent drainage. NECK: Trachea midline. Supple, nontender. No palpable thyroid enlargement or nodularity. CARDIOVASCULAR: Regular rate and rhythm without murmurs, gallops, or rubs. No JVD. Peripheral pulses symmetric. RESPIRATORY/CHEST: Remains intubated on mechanical ventilation. FiO2 35%. Bibasilar breath sounds diminished. GASTROINTESTINAL: Abdomen soft, non-tender, nondistended. No guarding. Bowel sounds present. Rectal tube with brown, soft-liquid stool GENITOURINARY: Without palpable bladder distension. Indwelling urinary cath draining cloudy, ana urine MUSCULOSKELETAL: Extremities without clubbing or cyanosis. Left BKA. Hands swollen bilaterally. Right foot appears dusky (particularly great toe), warm to touch LYMPHATICS: No palpable cervical or supraclavicular adenopathy. NEUROLOGICAL: Sedated on Versed and fentanyl. Arouses easily to verbal stimuli. Follows simple one-step commands. PSYCHIATRIC: Unable to assess given clinical condition . Diagnostic Tests Laboratory Laboratory Tests Test 09/03/17 18:00 09/04/17 03:40 09/05/17 04:04 09/06/17 06:00 Stool C. difficile Toxin (PCR) NEGATIVE (NEGATIVE) Stl C. difficile Toxin Epiderm 027 PRESUMPTIVE NEGATIVE Activated Partial Thromboplast Time 20.5 SEC (24.3-30.1) 19.8 SEC (24.3-30.1) 20.1 SEC (24.3-30.1) White Blood Count 9.6 TH/MM3 (4.0-11.0) 9.5 TH/MM3 (4.0-11.0) Red Blood Count 3.38 MIL/MM3 (4.50-5.90) 3.23 MIL/MM3 (4.50-5.90) Hemoglobin 10.5 GM/DL (13.0-17.0) 10.1 GM/DL (13.0-17.0) Hematocrit 31.4 % (39.0-51.0) 30.5 % (39.0-51.0) Mean Corpuscular Volume 93.0 FL (80.0-100.0) 94.4 FL (80.0-100.0) Mean Corpuscular Hemoglobin 31.1 PG (27.0-34.0) 31.2 PG (27.0-34.0) Mean Corpuscular Hemoglobin Concent 33.5 % (32.0-36.0) 33.1 % (32.0-36.0) Red Cell Distribution Width 17.6 % (11.6-17.2) 17.5 % (11.6-17.2) Platelet Count 54 TH/MM3 (150-450) 52 TH/MM3 (150-450) Mean Platelet Volume 8.8 FL (7.0-11.0) 9.6 FL (7.0-11.0) Neutrophils (%) (Auto) 93.2 % (16.0-70.0) Lymphocytes (%) (Auto) 2.9 % (9.0-44.0) Monocytes (%) (Auto) 3.8 % (0.0-8.0) Eosinophils (%) (Auto) 0.0 % (0.0-4.0) Basophils (%) (Auto) 0.1 % (0.0-2.0) Neutrophils # (Auto) 9.0 TH/MM3 (1.8-7.7) Lymphocytes # (Auto) 0.3 TH/MM3 (1.0-4.8) Monocytes # (Auto) 0.4 TH/MM3 (0-0.9) Eosinophils # (Auto) 0.0 TH/MM3 (0-0.4) Basophils # (Auto) 0.0 TH/MM3 (0-0.2) CBC Comment AUTO DIFF Differential Comment AUTO DIFF CONFIRMED Platelet Estimate LOW (NORMAL) Platelet Morphology Comment NORMAL (NORMAL) Blood Urea Nitrogen 37 MG/DL (7-18) Creatinine 0.66 MG/DL (0.60-1.30) Random Glucose 278 MG/DL (74-106) Total Protein 4.2 GM/DL (6.4-8.2) Albumin 1.7 GM/DL (3.4-5.0) Calcium Level 7.6 MG/DL (8.5-10.1) Alkaline Phosphatase 146 U/L (45-117) Aspartate Amino Transf (AST/SGOT) 30 U/L (15-37) Alanine Aminotransferase (ALT/SGPT) 39 U/L (12-78) Total Bilirubin 0.3 MG/DL (0.2-1.0) Sodium Level 149 MEQ/L (136-145) Potassium Level 4.3 MEQ/L (3.5-5.1) Chloride Level 113 MEQ/L (98-107) Carbon Dioxide Level 27.2 MEQ/L (21.0-32.0) Anion Gap 9 MEQ/L (5-15) Estimat Glomerular Filtration Rate 121 ML/MIN (>89) . Result Diagram: 09/06/17 0600 09/05/17 0404 Procedures 08/16/2017: Intubation/reintubation 08/25/2017: Extubation 09/01/2017: Reintubation . Assessment and Plan Disease Oriented Problem List: (1) Peripheral vascular disease (2) Pseudomonas pneumonia (3) COPD exacerbation (4) Cardiomyopathy (5) DM type 2 (diabetes mellitus, type 2) (6) CAD (coronary artery disease) (7) COPD (chronic obstructive pulmonary disease) (8) Hyperlipidemia (9) Paroxysmal atrial fibrillation Symptom Scale: (1) Dyspnea 0-10 Scale: Unable to quantify (2) Pain 0-10 Scale: Unable to quantify Pertinent Non-Medical Issues Psychosocial: Patient is originally from [place]. Patient has been for many years. He has 1 adult daughter (Poly) and 2 grand-children. Grandson ( Tristin) and Granddaughter (Deo). Granddaughter (Deo) identifies as male and is to [facility] ([place] Patient's highest education level is eighth grade. He is unemployed; last working in 2010 as a [employer]. Spiritual: [employer]an shelbi Legal: Per [place] statutes, in the absence of written advanced directives health care proxy decision making falls to the patient's daughter (Poly). Ethical issues impacting care: No known ethical issues impacting care at this time. . Important Contacts Poly Salcedo, daughter: [phone] Tristin Salcedo, grandson: [phone] Deo Salcedo, granddaughter - identifies as male : [phone] ( to Grisel) Juan Carlos Salcedo, brother: [phone] . Prognosis Patient is a 66 yo male with significant lung disease resulting in 4 hospitalizations in the past 6 months. He is currently vent dependent and unable to tolerate CPAP trails; given his advanced lung disease it will be difficult to wean him off the ventilator without a tracheostomy. Given patient' s complex medical history, he will be high risk for ongoing complications and decline. . Code Status: Full Code Plan * FULL CODE * Decision-making: Patient does NOT have insight or judgment concerning his medical conditions at this time. Per [place] statutes, in the absence of written advanced directives health care proxy decision making falls to the patient's daughter (Poly). * AGGRESSIVE GOALS * Spoke to patient's daughter (Poly) via telephone. Questions answered to the best of my ability; reviewed medical treatment goals i.e. possible trach/PEG tube. Poly states, " They told me they could do a reversible trach. So that's what we want." I explained that tracheostomies are generally reversible, but the unknown variable is whether or not the patient will become medically stable enough to have the trach reversed. Plan to proceed with trach/PEG tube placement if indicated but would like to allow the patient as much time as possible to see if he improves. * Discussed current medical treatment goals with Dr. Crawford. Likely proceed with trach/PEG tube placement at the beginning of next week 09/09/17 * Symptom management: == Dyspnea: Patient admitted with severe dyspnea s/p being intubated in the field; known history of severe underlying lung disease. 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 Treated for MRSA pneumonia. Patient was transferred back to the intensive care unit on 09/01/17; he is now back on ventilatory support for the third time this hospitalization. Repeat chest x-ray showing no acute disease process. Repeat sputum culture growing Pseudomonas, possibly colonization per ID. Not tolerating SBT trials == Pain: Multifactoral. Patient has a known history of chronic back pain, CAD, severe peripheral vascular disease status post left BKA. Additional contributing factors may include invasive lines, immobility etc. currently sedated on Fentanyl to 250 mcg/h and Versed drip 5 mg/h * Palliative care will continue to follow this patient throughout his hospitalization to establish stress, assist with symptom management and clarification of medical treatment goals. . Time Spent Time Periods: 9:52am -10:19am Total Floor Time (mins): 27 (To incude review of medical notes, patient examination and collaboration with medical team) Face to Face Time (mins): 15 >50% Counseling/Coord of Care: Yes Attestation To help prompt me to consider important information that might be impacting today's encounter and assessment, information from prior notes written by myself or my colleagues may have been "brought forward" into today's note. My signature on this note, however, is an attestation that I personally performed the exam, history, and/or decision-making noted today, and, unless otherwise indicated, the interactions with patient, family, and staff as well as the review of records all occurred today. I also attest that the listed assessment and stated plan reflect my best clinical judgment today based on the combination of historical information, prior notes, and today's exam/ interactions. When time spent is documented, it refers only to time spent today by the signer, or if indicated, combined time spent today by collaborating physician/nurse practitioner. . Judith Salazar Sep 06, 2017 12:01
[2017-09-06] MEDS: SODIUM CHLOR 0.9% 1000 ML INJ 1,000 ML IV SCH (14:15)
--- NOTE | 2017-09-06 15:31 | HHI.CCPN ---
Subjective Remarks/Hospital Course 66-year-old male who was brought to the ER after he developed shortness of breath and altered mental status. At [facility] he was placed on nasal cannula 2 L because of his history of COPD as he uses it off and on. EMS was called when patient developed agonal respirations with O2 sats in the low 80s on their arrival with pink frothy sputum. Patient was intubated in the field after receiving etomidate and Versed. His systolic blood pressure was 190s following intubation and dropped to the 60 systolic range and he was started on dopamine in the field by EMS. He was brought to the ER at [place] and noted to have elevated troponin on his admitting labs. He was accepted for admission by critical care medicine service. He underwent a CT chest to evaluate for PE which was negative for PE however did show severe emphysematous changes with groundglass opacities. History is significantly limited by the fact that he is intubated. When I evaluated the patient he was sedated, orally intubated on mechanical ventilation. History was obtained by reviewing records. SUBJ 08/14/17: Remains intubated sedated, a CPAP was attempted but patient failed almost immediately with severe tachypnea. Continues to have bilateral expiratory wheezing and diminished air entry. Initial troponin was 3.18 now down trending 08/15/17: Patient remains intubated sedated with Versed and fentanyl. On sedation hold wakes up easily follows commands. On attempted CPAP patient became tachypneic with labored breathing using accessory muscles. Not ready for extubation. Pseudomonas growing in sputum. Increase Azactam to 2 g IV every 8 hours 08/16/17: Tolerating CPAP trials better today. Sputum culture growing Pseudomonas pansensitive. Will attempt to extubate with BiPAP use if needed 08/17/17: Reintubated yesterday evening following severe respiratory distress and severe wheezing. Currently remains sedated on vent support. Persistent wheezing. 08/18: Remains intubated sedated. Will initiate CPAP trials again. Patient has severe emphysema and will be difficult to wean to extubate. Wheezing persists. 08/19: Remains sedated, orally intubated on mechanical ventilation. Significant bloody respiratory secretions being suctioned from ET tube. On heparin for anticoagulation. Will hold Coumadin. 08/20: Sedated, arousable, orally intubated on mechanical ventilation. Failing CPAP trials. Heparin held yesterday due to increasing bloody respiratory secretions. 08/21: Remains sedated wakes up easily. Failed CPAP trial immediately today due to tachypnea and respiratory distress. No significant bloody secretions. Chest x-ray was clear. I discussed briefly with daughter. Poly Salcedo about possibility of trach. She needs more time to decide and needs time to discuss with family. I have consulted palliative care to address goals of care. Vent day 9 today. With his some advanced emphysema it will be difficult to wean him off the ventilator without tracheostomy 08/22: Patient is more critical becoming more septic. White count yesterday was 27.5. Today he spiked fever 101.3, tachycardic heart rate in 120s borderline hypotensive.. Chest x-ray shows developing left base infiltrate. Will continue cefepime panculture ordered. Vancomycin 1.25 g 1 and pharmacy to dose. Normal saline bolus 2 L ordered. 08/23: T-max 100.0. Hemoglobin downtrending now 7.2. Patient continues to be borderline hypotensive, monitor Hgb. Patient was tentatively scheduled for percutaneous tracheostomy this a.m. however unable to obtain consent from family members. Sodium level starting to downtrend with addition of free water flushes. 08/24: Hemodynamically stable throughout the night. Transfusion 1 unit of packed cells placed on hold with cancellation percutaneous tracheostomy due to lack of consent. H&H pending this afternoon, will transfuse for hemoglobin less than 7. Patient awake continuing on CPAP for greater than 4 hours today. 08/25: more awake. passed SBT. discussion with family and patient: he would want to be re-intubated and pursue tracheostomy if he fails again. 08/26: remained extubated. denies complaints. high risk for reintubation. wants aggressive care and tracheostomy if re-intubated. 09/01: Critical care reconsulted for worsening respiratory status. Patient was transferred to the ICU from the floor due to increasing O2 requirement and placed on a nonrebreather facemask. He was reportedly tachypneic using accessory muscles of respiration. There was some concern regarding aspiration. I evaluated the patient following his arrival to the ICU. He was breathing in the 30s using accessory muscles of respiration on a nonrebreather facemask. He is awake however not really able to give me details of history due to respiratory distress. Patient will be placed on BiPAP and Precedex in order to avoid intubation. He does have significantly advanced COPD and recently completed a course of antibiotics. Will restart empiric antibiotics with Zyvox/ Levaquin/Flagyl IV. 09/02: Patient was intubated yesterday(09/01) for worsening respiratory distress despite BiPAP and placed on mechanical ventilation. Remains sedated, orally intubated on mechanical ventilation. On Levophed for pressor support. Hemoglobin 7.5 this morning. 2 units PRBCs ordered to be transfused. Borderline elevated troponin noted. 09/03: Remains sedated, orally intubated on mechanical ventilation. Off levophed. 2 units PRBCs transfused yesterday 09/04: Sedated, arousable, orally intubated on mechanical ventilation. Tolerating tube feeds. Failed CPAP trials. 09/05: Remains sedated, orally intubated on mechanical ventilation. Tolerating tube feeds. Failing CPAP trials. 09/06: Sedated, arousable, orally intubated on mechanical ventilation. Failed CPAP trials. Objective Vital Signs Date Time Temp Pulse Resp B/P (MAP) Pulse Ox O2 Delivery O2 Flow Rate FiO2 09/06/17 14:48 97 35 09/06/17 14:00 88 09/06/17 12:30 18 89/54 (66) 09/06/17 12:00 98.8 09/02/17 19:00 Mechanical Ventilator Intake and Output 09/06/17 09/06/17 09/07/17 08:00 16:00 00:00 Intake Total 654 ml 1050 ml Output Total 600 ml Balance 54 ml 1050 ml Result Diagram: 09/06/17 0600 09/05/17 0404 Imaging Last Impressions Chest X-Ray 08/23/17 0600 Signed Impressions: Service Date/Time: Wednesday, August 23, 2017 04:23 - CONCLUSION: Clear lungs. Ricki Metzger Jr., MD CT Angiography 08/13/17 0000 Signed Impressions: Service Date/Time: Sunday, August 13, 2017 07:25 - CONCLUSION: 1. No CT evidence for pulmonary embolism as questioned. 2. Moderate to severe upper lobe predominant centrilobular emphysema. 3. Patchy bibasilar groundglass opacities likely reflecting atelectasis although differential considerations include aspiration. 4. Multiple 4-6mm bilateral groundglass and solid nodules, likely infectious/inflammatory. Recommend followup CT examination in approximately 6 months per 2017 Fleischner criteria (6mm nodule). Steve Barajas MD Last Impressions Chest X-Ray 08/13/17 0414 Signed Impressions: Service Date/Time: Sunday, August 13, 2017 04:28 - CONCLUSION: Lungs are grossly clear. ET tube in good position. Abel Cannon MD CT Angiography 08/13/17 0000 Signed Impressions: Service Date/Time: Sunday, August 13, 2017 07:25 - CONCLUSION: 1. No CT evidence for pulmonary embolism as questioned. 2. Moderate to severe upper lobe predominant centrilobular emphysema. 3. Patchy bibasilar groundglass opacities likely reflecting atelectasis although differential considerations include aspiration. 4. Multiple 4-6mm bilateral groundglass and solid nodules, likely infectious/inflammatory. Recommend followup CT examination in approximately 6 months per 2017 Fleischner criteria (6mm nodule). Steve Barajas MD Objective Remarks GEN: middle-aged male who appears much older than stated age, sedated, orally intubated on mechanical ventilation HEENT: Pallor present, no icterus, tongue/ mucosa moist. Neck: No JVD Chest/Pulm: Orally intubated on mechanical ventilation, good air entry bilaterally though decreased at bases, scattered rhonchi, no wheezing or crackles. CVS: S1-S2 regular, no gallop or murmur GI/abdomen: soft, nontender, no guarding. Extremities: warm bilaterally, 2+ peripheral edema bilateral upper extremity edema. Left lower extremity status post BKA Neuro: Sedated, arousable, orally intubated, moving all extremities. A/P Assessment and Plan Assessment: Acute on chronic hypoxic and hypercarbic respiratory failure Acute metabolic encephalopathy Severe sepsis Acute COPD exacerbation NSTEMI Pseudomonas pneumonia Suspected aspiration MRSA Ventilator associated pneumonia Advanced COPD/emphysema Anemia CAD History of cardiomyopathy Diabetes Hyperlipidemia Hypertension Paroxysmal atrial fibrillation. Peripheral vascular disease Plan: Neuro: - Follow neuro status. -Sedation with Versed/fentanyl gtt. Titrate off propofol in view of hypotension. -Daily sedation vacation Cardiovascular: -Was on Isosorbide mononitrate, atorvastatin, lasix per Dr. Gary. Holding Isosorbide, Lasix and lisinopril due to increasing BUN, hypotension -Hold I -Holding heparin and Coumadin since 08/19 in view of hemoptysis currently. Continue Lovenox 40 mg sq daily -Continue aspirin. Cardiology Dr. Gary. 2D echo EF 50% - Borderline troponin elevation on 09/02 -Dr. Gary recommends nuclear stress test when able to tolerate. Pulmonary: - patient and family goals as of my discussion 08/25: aggressive care including tracheostomy if he gets reintubated. -Failed extubation 08/16/2017, reintubated approximately after 6-8 hours. Total vent day 13 -Patient will need prolonged ventilatory support and will need trach due to severe emphysema, and pneumonia and sepsis -CT of the chest showed severe emphysema and pneumonia -Starting IV Solu-Medrol, continue bronchodilators inhaled budesonide -Starting antibiotics on 09/01 due to worsening respiratory status with question of aspiration. Ordered Zyvox/Levaquin/Flagyl IV -Failed BiPAP so intubated and placed on mechanical ventilation on 09/01 -Failing CPAP trials. Will require tracheostomy and PEG tube. GI/liver: -Started tube feeds on 09/02, advanced to goal. Renal/: -Lasix daily. Hold Aldactone. -Strict intake output, monitor and replete electrodes, follow BUN/creatinine. ID: -Sputum culture growing pansensitive pseudomonas 08/13/17, MRSA on 08/22 -Ordered empiric antibiotic coverage with IV Zyvox/Levaquin/Flagyl -Reconsulted ID to manage abx. Endocrine: -Watch for hypoglycemia, SSI for glycemic control if needed. -Currently on Levemir every 12, SSI Heme: -Follow CBC and coags. Holding heparin and Coumadin in view of hemoptysis. -Transfused 2 units PRBCs in view of non-ST elevation IL to bring hemoglobin up to 9 g percent Prophylaxis: -Pepcid/SCDs. Lovenox 40 mg subcutaneously (Full anticoagulation held due to hemoptysis) and will continue prophylactic dose provided hemoptysis does not recur or worsen. D/W CREDIT AND COLLECTIONS REPRESENTATIVE, D/W RT. Failing CPAP trials. Will probably require tracheostomy and PEG tube family desires aggressive care. Palliative care and discussions with family. Condition critical. Time spent on critical care excluding procedures 35 minute Lester Crawford MD Sep 06, 2017 15:31
[2017-09-06] MEDS: ATORVASTATIN 40 MG TAB PO SCH (20:17)
[2017-09-06] MEDS: ISOSORBIDE MONONITRATE 60 MG CR TAB (IMDUR) PO SCH (21:01)
[2017-09-06] MEDS: CHLORHEXIDINE GLUCONATE 2 % 1 PACK (2 CLOTHS) TOP SCH (21:01)
[2017-09-07] VITALS (36 sets, daily range): BP systolic 78–107; BP diastolic 55–73; PULSE 99–136; RESP 18; TEMP 97.5–99.3; O2SAT 94–100
[2017-09-07] MEDS: INSULIN ASPART SUPPLEMENTAL SCALE SQ SCH ×6 (00:32→21:04)
[2017-09-07] MEDS: PANTOPRAZOLE SODIUM 40 MG VIAL IV PUSH SCH ×2 (04:56→16:48)
[2017-09-07] MEDS: CHLORHEXIDINE 0.12% (ORAL KIT) 15 ML CUP MT SCH ×4 (08:00→20:00)
[2017-09-07] MEDS: FAMOTIDINE 20 MG TAB TUBE SCH ×2 (09:07→21:05)
[2017-09-07] MEDS: ASPIRIN 81 MG CHEW TAB CHEW SCH (09:07)
[2017-09-07] MEDS: FUROSEMIDE 20 MG/2 ML VIAL IV PUSH SCH (09:08)
[2017-09-07] MEDS: ENOXAPARIN SODIUM 40 MG/0.4 ML SYRINGE SQ SCH (09:08)
[2017-09-07] MEDS: INSULIN DETEMIR 100 UNITS/ML VIAL SQ SCH ×2 (09:09→21:04)
[2017-09-07] MEDS: methylPREDNISolone SOD SUCC 125 MG/2 ML VIAL IV PUSH SCH ×2 (09:09→21:05)
[2017-09-07] MEDS: SODIUM CHLORIDE 0.9% FLUSH 10 ML FLUSH IV FLUSH SCH ×3 (09:10→20:54)
[2017-09-07] MEDS: fentaNYL DRIP 250 ML IV PRN ×2 (09:20→22:14)
[2017-09-07] MEDS: SODIUM CHLOR 0.9% 1000 ML INJ 1,000 ML IV SCH ×2 (09:25→20:54)
--- NOTE | 2017-09-07 09:49 | HHI.CCPN ---
Subjective Remarks/Hospital Course 66-year-old male who was brought to the ER after he developed shortness of breath and altered mental status. At shelter he was placed on nasal cannula 2 L because of his history of COPD as he uses it off and on. EMS was called when patient developed agonal respirations with O2 sats in the low 80s on their arrival with pink frothy sputum. Patient was intubated in the field after receiving etomidate and Versed. His systolic blood pressure was 190s following intubation and dropped to the 60 systolic range and he was started on dopamine in the field by EMS. He was brought to the ER at [facility] and noted to have elevated troponin on his admitting labs. He was accepted for admission by critical care medicine service. He underwent a CT chest to evaluate for PE which was negative for PE however did show severe emphysematous changes with groundglass opacities. History is significantly limited by the fact that he is intubated. When I evaluated the patient he was sedated, orally intubated on mechanical ventilation. History was obtained by reviewing records. SUBJ 08/14/17: Remains intubated sedated, a CPAP was attempted but patient failed almost immediately with severe tachypnea. Continues to have bilateral expiratory wheezing and diminished air entry. Initial troponin was 3.18 now down trending 08/15/17: Patient remains intubated sedated with Versed and fentanyl. On sedation hold wakes up easily follows commands. On attempted CPAP patient became tachypneic with labored breathing using accessory muscles. Not ready for extubation. Pseudomonas growing in sputum. Increase Azactam to 2 g IV every 8 hours 08/16/17: Tolerating CPAP trials better today. Sputum culture growing Pseudomonas pansensitive. Will attempt to extubate with BiPAP use if needed 08/17/17: Reintubated yesterday evening following severe respiratory distress and severe wheezing. Currently remains sedated on vent support. Persistent wheezing. 08/18: Remains intubated sedated. Will initiate CPAP trials again. Patient has severe emphysema and will be difficult to wean to extubate. Wheezing persists. 08/19: Remains sedated, orally intubated on mechanical ventilation. Significant bloody respiratory secretions being suctioned from ET tube. On heparin for anticoagulation. Will hold Coumadin. 08/20: Sedated, arousable, orally intubated on mechanical ventilation. Failing CPAP trials. Heparin held yesterday due to increasing bloody respiratory secretions. 08/21: Remains sedated wakes up easily. Failed CPAP trial immediately today due to tachypnea and respiratory distress. No significant bloody secretions. Chest x-ray was clear. I discussed briefly with daughter. Poly Salcedo about possibility of trach. She needs more time to decide and needs time to discuss with family. I have consulted palliative care to address goals of care. Vent day 9 today. With his some advanced emphysema it will be difficult to wean him off the ventilator without tracheostomy 08/22: Patient is more critical becoming more septic. White count yesterday was 27.5. Today he spiked fever 101.3, tachycardic heart rate in 120s borderline hypotensive.. Chest x-ray shows developing left base infiltrate. Will continue cefepime panculture ordered. Vancomycin 1.25 g 1 and pharmacy to dose. Normal saline bolus 2 L ordered. 08/23: T-max 100.0. Hemoglobin downtrending now 7.2. Patient continues to be borderline hypotensive, monitor Hgb. Patient was tentatively scheduled for percutaneous tracheostomy this a.m. however unable to obtain consent from family members. Sodium level starting to downtrend with addition of free water flushes. 08/24: Hemodynamically stable throughout the night. Transfusion 1 unit of packed cells placed on hold with cancellation percutaneous tracheostomy due to lack of consent. H&H pending this afternoon, will transfuse for hemoglobin less than 7. Patient awake continuing on CPAP for greater than 4 hours today. 08/25: more awake. passed SBT. discussion with family and patient: he would want to be re-intubated and pursue tracheostomy if he fails again. 08/26: remained extubated. denies complaints. high risk for reintubation. wants aggressive care and tracheostomy if re-intubated. 09/01: Critical care reconsulted for worsening respiratory status. Patient was transferred to the ICU from the floor due to increasing O2 requirement and placed on a nonrebreather facemask. He was reportedly tachypneic using accessory muscles of respiration. There was some concern regarding aspiration. I evaluated the patient following his arrival to the ICU. He was breathing in the 30s using accessory muscles of respiration on a nonrebreather facemask. He is awake however not really able to give me details of history due to respiratory distress. Patient will be placed on BiPAP and Precedex in order to avoid intubation. He does have significantly advanced COPD and recently completed a course of antibiotics. Will restart empiric antibiotics with Zyvox/ Levaquin/Flagyl IV. 09/02: Patient was intubated yesterday(09/01) for worsening respiratory distress despite BiPAP and placed on mechanical ventilation. Remains sedated, orally intubated on mechanical ventilation. On Levophed for pressor support. Hemoglobin 7.5 this morning. 2 units PRBCs ordered to be transfused. Borderline elevated troponin noted. 09/03: Remains sedated, orally intubated on mechanical ventilation. Off levophed. 2 units PRBCs transfused yesterday 09/04: Sedated, arousable, orally intubated on mechanical ventilation. Tolerating tube feeds. Failed CPAP trials. 09/05: Remains sedated, orally intubated on mechanical ventilation. Tolerating tube feeds. Failing CPAP trials. 09/06: Sedated, arousable, orally intubated on mechanical ventilation. Failed CPAP trials. 09/07: Sedated, arousable, orally intubated on mechanical ventilation. Failing CPAP trials. Will need tracheostomy and PEG tube placement as family desires aggressive care. Palliative care and discussions with family. Objective Vital Signs Date Time Temp Pulse Resp B/P (MAP) Pulse Ox O2 Delivery O2 Flow Rate FiO2 09/07/17 06:00 106 09/07/17 04:00 98.7 18 90/58 (69) 97 09/07/17 04:00 35 Intake and Output 09/07/17 09/07/17 09/08/17 08:00 16:00 00:00 Intake Total 600 ml Output Total 600 ml Balance 0 ml Result Diagram: 09/06/17 0609/05/17 0404 Imaging Last Impressions Chest X-Ray 08/23/17 06 Signed Impressions: Service Date/Time: Wednesday, August 23, 2017 04:23 - CONCLUSION: Clear lungs. Ricki Metzger Jr., MD CT Angiography 08/13/17 0000 Signed Impressions: Service Date/Time: Sunday, August 13, 2017 07:25 - CONCLUSION: 1. No CT evidence for pulmonary embolism as questioned. 2. Moderate to severe upper lobe predominant centrilobular emphysema. 3. Patchy bibasilar groundglass opacities likely reflecting atelectasis although differential considerations include aspiration. 4. Multiple 4-6mm bilateral groundglass and solid nodules, likely infectious/inflammatory. Recommend followup CT examination in approximately 6 months per 2017 Fleischner criteria (6mm nodule). Steve Barajas MD Last Impressions Chest X-Ray 08/13/17 0414 Signed Impressions: Service Date/Time: Sunday, August 13, 2017 04:28 - CONCLUSION: Lungs are grossly clear. ET tube in good position. Abel Cannon MD CT Angiography 08/13/17 0000 Signed Impressions: Service Date/Time: Sunday, August 13, 2017 07:25 - CONCLUSION: 1. No CT evidence for pulmonary embolism as questioned. 2. Moderate to severe upper lobe predominant centrilobular emphysema. 3. Patchy bibasilar groundglass opacities likely reflecting atelectasis although differential considerations include aspiration. 4. Multiple 4-6mm bilateral groundglass and solid nodules, likely infectious/inflammatory. Recommend followup CT examination in approximately 6 months per 2017 Fleischner criteria (6mm nodule). Steve Barajas MD Objective Remarks GEN: middle-aged male who appears much older than stated age, sedated, orally intubated on mechanical ventilation HEENT: Pallor present, no icterus, tongue/ mucosa moist. Neck: No JVD Chest/Pulm: Orally intubated on mechanical ventilation, good air entry bilaterally though decreased at bases, scattered rhonchi, no wheezing or crackles. CVS: S1-S2 regular, no gallop or murmur GI/abdomen: soft, nontender, no guarding. Extremities: warm bilaterally, 2+ peripheral edema bilateral upper extremity edema. Left lower extremity status post BKA Neuro: Sedated, arousable, orally intubated, moving all extremities. A/P Assessment and Plan Assessment: Acute on chronic hypoxic and hypercarbic respiratory failure Acute metabolic encephalopathy Severe sepsis Acute COPD exacerbation NSTEMI Pseudomonas pneumonia Suspected aspiration MRSA Ventilator associated pneumonia Advanced COPD/emphysema Anemia CAD History of cardiomyopathy Diabetes Hyperlipidemia Hypertension Paroxysmal atrial fibrillation. Peripheral vascular disease Plan: Neuro: - Follow neuro status. -Sedation with Versed/fentanyl gtt. -Daily sedation vacation Cardiovascular: -Was on Isosorbide mononitrate, atorvastatin, lasix per Dr. Gary. Holding Isosorbide, Lasix and lisinopril due to increasing BUN, hypotension -Holding heparin and Coumadin since 08/19 in view of hemoptysis currently. Continue Lovenox 40 mg sq daily -Continue aspirin. Cardiology Dr. Gary. 2D echo EF 50% - Borderline troponin elevation on 09/02 -Dr. Gary recommends nuclear stress test when able to tolerate. Pulmonary: - patient and family goals as of my discussion 08/25: aggressive care including tracheostomy if he gets reintubated. -Failed extubation 08/16/2017, reintubated approximately after 6-8 hours. Total vent day 13 -Patient will need prolonged ventilatory support and will need trach due to severe emphysema, and pneumonia and sepsis -CT of the chest showed severe emphysema and pneumonia -Starting IV Solu-Medrol, continue bronchodilators inhaled budesonide -Starting antibiotics on 09/01 due to worsening respiratory status with question of aspiration. Ordered Zyvox/Levaquin/Flagyl IV -Failed BiPAP so intubated and placed on mechanical ventilation on 09/01 -Failing CPAP trials. Will require tracheostomy and PEG tube. GI/liver: -Started tube feeds on 09/02, advanced to goal. Renal/: -Lasix daily. Hold Aldactone. -Strict intake output, monitor and replete electrodes, follow BUN/creatinine. ID: -Sputum culture growing pansensitive pseudomonas 08/13/17, MRSA on 08/22 -Was on empiric antibiotic coverage with IV Zyvox/Levaquin/Flagyl -Reconsulted ID to manage abx. All antibiotics stopped on 09/04 per ID. Endocrine: -Watch for hypoglycemia, SSI for glycemic control if needed. -Currently on Levemir every 12, SSI Heme: -Follow CBC and coags. Holding heparin and Coumadin in view of hemoptysis. -Transfused 2 units PRBCs in view of non-ST elevation IA to bring hemoglobin up to 9 g percent Prophylaxis: -Pepcid/SCDs. Lovenox 40 mg subcutaneously (Full anticoagulation held due to hemoptysis) and will continue prophylactic dose provided hemoptysis does not recur or worsen. D/W [employer]MB[employer]ING [employer], D/W RT. Failing CPAP trials. Will probably require tracheostomy and PEG tube. family desires aggressive care. Palliative care in discussions with family. Condition critical. Time spent on critical care excluding procedures 35 minute Lester Crawford MD Sep 07, 2017 09:49
[2017-09-07] MEDS: RESP: BUDESONIDE 0.5 MG/2 ML NEB NEB SCH ×2 (09:54→19:47)
[2017-09-07] MEDS ORDERED: SODIUM CHLORID 0.9% 500 ML INJ 500 ML IV SCH (15:00)
[2017-09-07] MEDS: VASOPRESSIN INJ 40 UNITS in DEXTROSE 5% IN WATER 100ML INJ 98 ML IV SCH ×2 (16:39)
--- NOTE | 2017-09-07 18:11 | HHI.PR ---
Subjective Remarks 66 YOWM with VDRF,COPD,NSTMI Started Vasopressin Sedated with Fentanyl and Versed No Fever Objective Vital Signs Vital Signs Date Time Temp Pulse Resp B/P (MAP) Pulse Ox O2 Delivery O2 Flow Rate FiO2 09/07/17 16:39 136 91/49 09/07/17 16:24 35 09/07/17 16:00 98.3 125 18 88/60 (69) 94 09/07/17 16:00 125 09/07/17 16:00 35 09/07/17 15:04 94 35 09/07/17 14:00 136 09/07/17 12:02 99 35 09/07/17 12:00 98.3 115 18 78/55 (63) 98 09/07/17 12:00 35 09/07/17 12:00 115 09/07/17 10:00 113 09/07/17 09:54 99 35 09/07/17 08:00 97.9 111 18 93/62 (72) 97 09/07/17 08:00 111 09/07/17 08:00 35 09/07/17 06:00 106 09/07/17 04:00 101 09/07/17 04:00 98.7 101 18 90/58 (69) 97 09/07/17 04:00 35 09/07/17 03:52 98 35 09/07/17 02:00 99 09/07/17 00:00 35 09/07/17 00:00 97.5 99 18 94/61 (72) 97 09/07/17 00:00 99 09/06/17 23:58 98 35 09/06/17 22:00 96 09/06/17 20:42 98 35 09/06/17 20:00 97.5 94 18 83/53 (63) 97 09/06/17 20:00 96 09/06/17 20:00 35 I/O 09/06/17 09/06/17 09/06/17 09/07/17 09/07/17 09/07/17 07:00 15:00 23:00 07:00 15:00 23:00 Intake Total 654 ml 1050 ml 1837.9 ml 600 ml Output Total 600 ml 1225 ml 600 ml Balance 54 ml 1050 ml 612.9 ml 0 ml IV Total 1050 ml 559.9 ml Tube Feeding 594 ml 678 ml 540 ml Tube Irrigant 60 ml 600 ml 60 ml Output Urine Total 400 ml 725 ml 400 ml Stool Total 200 ml 500 ml 200 ml Result Diagram: 09/06/17 0600 09/05/17 0404 Objective Remarks GENERAL: Elderly male, on vent sedated SKIN: Warm and dry. HEAD: Normocephalic. EYES: No scleral icterus. No injection or drainage. NECK: Supple, trachea midline. No JVD or lymphadenopathy. CARDIOVASCULAR: Regular rate and rhythm without murmurs, gallops, or rubs. RESPIRATORY: Breath sounds equal bilaterally. No accessory muscle use. GASTROINTESTINAL: Abdomen soft, non-tender, nondistended. MUSCULOSKELETAL: No cyanosis, or edema. BACK: Nontender without obvious deformity. No CVA tenderness. A/P Assessment and Plan IMPRESSION: VDRF Pneumonia COPD NSTMI Anemia PLAN: Cont Vent Support PRVC AC, fi02 35% Aerosol nebs PRBC Sedation with Fentanyl and Versed Vasopressin Justin Weber MD Sep 07, 2017 18:11
[2017-09-07] MEDS: MIDAZOLAM 50 MG/NS 50 ML DRIP Premix IV PRN (18:20)
[2017-09-07] MEDS: ATORVASTATIN 40 MG TAB PO SCH (21:05)
[2017-09-08] VITALS (68 sets, daily range): BP systolic 92–147; BP diastolic 53–93; PULSE 81–174; RESP 17–53; TEMP 96.5–100.1; O2SAT 93–100
[2017-09-08] MEDS: INSULIN ASPART SUPPLEMENTAL SCALE SQ SCH ×6 (00:57→20:47)
[2017-09-08] MEDS: CHLORHEXIDINE GLUCONATE 2 % 1 PACK (2 CLOTHS) TOP SCH (00:58)
[2017-09-08] MEDS: VASOPRESSIN INJ 40 UNITS in DEXTROSE 5% IN WATER 100ML INJ 98 ML IV SCH ×2 (03:18)
[2017-09-08 04:48] LABS: AUTOMATED NEUTROPHIL # 5.2 TH/MM3 (1.8-7.7); BASOPHIL % 0.1 % (0.0-2.0); HEMATOCRIT 33.4 % (39.0-51.0); HEMOGLOBIN 10.9 GM/DL (13.0-17.0); LYMPH % 5.3 % (9.0-44.0); LYMPHOCYTE # 0.3 TH/MM3 (1.0-4.8); MEAN CELL VOLUME 97.3 FL (80.0-100.0); MEAN CORPUSCULAR HEMOGLOBIN 31.6 PG (27.0-34.0); MEAN CORPUSCULAR HGB CONC 32.5 % (32.0-36.0); MONO % 4.5 % (0.0-8.0); MONOCYTE # 0.3 TH/MM3 (0-0.9); NEUT % 90.1 % (16.0-70.0); PLATELET COUNT 64 TH/MM3 (150-450); RED BLOOD COUNT 3.43 MIL/MM3 (4.50-5.90); RED CELL DISTRIBUTION WIDTH 18.1 % (11.6-17.2); WHITE BLOOD COUNT 5.8 TH/MM3 (4.0-11.0)
[2017-09-08 05:22] LABS: ALBUMIN 1.6 GM/DL (3.4-5.0); ALKALINE PHOSPHATASE 296 U/L (45-117); ALT (GPT) 87 U/L (12-78); AST (GOT) 77 U/L (15-37); BICARBONATE 25.6 MEQ/L (21.0-32.0); BLOOD UREA NITROGEN 54 MG/DL (7-18); CALCIUM 7.5 MG/DL (8.5-10.1); CHLORIDE 120 MEQ/L (98-107); CREATININE 0.56 MG/DL (0.60-1.30); GLOMERULAR FILTRATION RATE 146 ML/MIN (>89); GLUCOSE,RANDOM 294 MG/DL (74-106); MAGNESIUM 2.7 MG/DL (1.5-2.5); TOTAL BILIRUBIN ADULT 0.3 MG/DL (0.2-1.0); TOTAL PROTEIN 4.1 GM/DL (6.4-8.2)
[2017-09-08 05:24] LABS: SODIUM (NA) 157 MEQ/L (136-145)
[2017-09-08] MEDS: PANTOPRAZOLE SODIUM 40 MG VIAL IV PUSH SCH ×2 (05:57→17:18)
[2017-09-08] MEDS: ISOSORBIDE MONONITRATE 60 MG CR TAB (IMDUR) PO SCH (05:58)
--- NOTE | 2017-09-08 06:27 | RADRPT ---
EXAM DATE: 09/08/2017 6:13 AM EDT AGE/SEX: 66 years / Male INDICATIONS: Shortness of breath, possible pulmonary disease. CLINICAL DATA: This is the patient's subsequent encounter. Patient reports that signs and symptoms h ave been present for 1 week and indicates a pain score of 0/10. MEDICAL/SURGICAL HISTORY: None. CABG. COMPARISON: [facility], CHEST SINGLE AP, 09/02/2017. . FINDINGS: The patient is status post sternotomy. The ET tube, NG tube and right internal jugular central line a re well placed. There is new increased density at the right base. There is some minimal hazy density at the left base. CONCLUSION: Bibasilar, right worse than left, areas of consolidation or atelectasis which appear worse on the cur rent exam. Electronically signed by: David Whitaker MD 09/08/2017 6:26 AM EDT
[2017-09-08] MEDS: RESP: BUDESONIDE 0.5 MG/2 ML NEB NEB SCH ×2 (07:43→19:38)
[2017-09-08] MEDS: CHLORHEXIDINE 0.12% (ORAL KIT) 15 ML CUP MT SCH ×4 (08:00→20:47)
[2017-09-08] MEDS: FAMOTIDINE 20 MG TAB TUBE SCH ×2 (08:05→20:48)
[2017-09-08] MEDS: ASPIRIN 81 MG CHEW TAB CHEW SCH (08:05)
[2017-09-08] MEDS: SODIUM CHLORIDE 0.9% FLUSH 10 ML FLUSH IV FLUSH SCH ×3 (08:06→20:47)
[2017-09-08] MEDS: INSULIN DETEMIR 100 UNITS/ML VIAL SQ SCH ×2 (08:06→20:48)
[2017-09-08] MEDS: MIDAZOLAM 50 MG/NS 50 ML DRIP Premix IV PRN (08:07)
[2017-09-08] MEDS: methylPREDNISolone SOD SUCC 125 MG/2 ML VIAL IV PUSH SCH ×2 (08:07→21:05)
[2017-09-08] MEDS: FUROSEMIDE 20 MG/2 ML VIAL IV PUSH SCH (08:07)
[2017-09-08] MEDS: fentaNYL DRIP 250 ML IV PRN (08:40)
[2017-09-08] MEDS: ENOXAPARIN SODIUM 40 MG/0.4 ML SYRINGE SQ SCH (08:40)
[2017-09-08 08:55] LABS: BANDS 17 % (0-6); CORRECTED NUCLEATED RBC 6 /100 WBC (0-0); LYMPHOCYTES 5 % (9-44); MONOCYTES 4 % (0-8); NEUTROPHIL # MANUAL DIFF 5.2 TH/MM3 (1.8-7.7); NUCLEATED RED BLOOD CELL 6 (0-0); PLASMA CELLS 2 % (0-0); POLYS (SEG NEUTROPHILS) 72 % (16-70)
[2017-09-08] MEDS ORDERED: HALOPERIDOL LACTATE 5 MG/ML AMP IV PUSH PRN (10:15)
[2017-09-08] MEDS: MIDODRINE 5 MG TAB PO SCH ×3 (11:00→20:48)
[2017-09-08] MEDS: FREE WATER G-TUBE SCH ×3 (11:01→20:00)
[2017-09-08 11:50] LABS: BACTERIA, URINE RARE /hpf; BILIRUBIN, URINE NEG (NEG); BLOOD, URINE SMALL (NEG); GLUCOSE,URINE NEG (NEG); HYALINE CAST, URINE 2 /lpf (RARE); KETONE, URINE NEG (NEG); MUCUS URINE FEW /lpf (OCC); NITRITE,URINE NEG (NEG); SQUAMOUS EPITHELIAL CELL URINE <1 /hpf (0-5); URINE COLOR YELLOW (YELLW/STRAW); URINE LEUKOCYTE ESTERASE NEG (NEG)
[2017-09-08] MEDS: METOPROLOL TARTRATE 5 MG/5 ML VIAL IV PUSH PRN ×2 (14:07→21:57)
--- NOTE | 2017-09-08 15:13 | HHI.CCPN ---
Subjective Remarks/Hospital Course 66-year-old male who was brought to the ER after he developed shortness of breath and altered mental status. At detention he was placed on nasal cannula 2 L because of his history of COPD as he uses it off and on. EMS was called when patient developed agonal respirations with O2 sats in the low 80s on their arrival with pink frothy sputum. Patient was intubated in the field after receiving etomidate and Versed. His systolic blood pressure was 190s following intubation and dropped to the 60 systolic range and he was started on dopamine in the field by EMS. He was brought to the ER at [place] and noted to have elevated troponin on his admitting labs. He was accepted for admission by critical care medicine service. He underwent a CT chest to evaluate for PE which was negative for PE however did show severe emphysematous changes with groundglass opacities. History is significantly limited by the fact that he is intubated. When I evaluated the patient he was sedated, orally intubated on mechanical ventilation. History was obtained by reviewing records. SUBJ 08/14/17: Remains intubated sedated, a CPAP was attempted but patient failed almost immediately with severe tachypnea. Continues to have bilateral expiratory wheezing and diminished air entry. Initial troponin was 3.18 now down trending 08/15/17: Patient remains intubated sedated with Versed and fentanyl. On sedation hold wakes up easily follows commands. On attempted CPAP patient became tachypneic with labored breathing using accessory muscles. Not ready for extubation. Pseudomonas growing in sputum. Increase Azactam to 2 g IV every 8 hours 08/16/17: Tolerating CPAP trials better today. Sputum culture growing Pseudomonas pansensitive. Will attempt to extubate with BiPAP use if needed 08/17/17: Reintubated yesterday evening following severe respiratory distress and severe wheezing. Currently remains sedated on vent support. Persistent wheezing. 08/18: Remains intubated sedated. Will initiate CPAP trials again. Patient has severe emphysema and will be difficult to wean to extubate. Wheezing persists. 08/19: Remains sedated, orally intubated on mechanical ventilation. Significant bloody respiratory secretions being suctioned from ET tube. On heparin for anticoagulation. Will hold Coumadin. 08/20: Sedated, arousable, orally intubated on mechanical ventilation. Failing CPAP trials. Heparin held yesterday due to increasing bloody respiratory secretions. 08/21: Remains sedated wakes up easily. Failed CPAP trial immediately today due to tachypnea and respiratory distress. No significant bloody secretions. Chest x-ray was clear. I discussed briefly with daughter. Poly Salcedo about possibility of trach. She needs more time to decide and needs time to discuss with family. I have consulted palliative care to address goals of care. Vent day 9 today. With his some advanced emphysema it will be difficult to wean him off the ventilator without tracheostomy 08/22: Patient is more critical becoming more septic. White count yesterday was 27.5. Today he spiked fever 101.3, tachycardic heart rate in 120s borderline hypotensive.. Chest x-ray shows developing left base infiltrate. Will continue cefepime panculture ordered. Vancomycin 1.25 g 1 and pharmacy to dose. Normal saline bolus 2 L ordered. 08/23: T-max 100.0. Hemoglobin downtrending now 7.2. Patient continues to be borderline hypotensive, monitor Hgb. Patient was tentatively scheduled for percutaneous tracheostomy this a.m. however unable to obtain consent from family members. Sodium level starting to downtrend with addition of free water flushes. 08/24: Hemodynamically stable throughout the night. Transfusion 1 unit of packed cells placed on hold with cancellation percutaneous tracheostomy due to lack of consent. H&H pending this afternoon, will transfuse for hemoglobin less than 7. Patient awake continuing on CPAP for greater than 4 hours today. 08/25: more awake. passed SBT. discussion with family and patient: he would want to be re-intubated and pursue tracheostomy if he fails again. 08/26: remained extubated. denies complaints. high risk for reintubation. wants aggressive care and tracheostomy if re-intubated. 09/01: Critical care reconsulted for worsening respiratory status. Patient was transferred to the ICU from the floor due to increasing O2 requirement and placed on a nonrebreather facemask. He was reportedly tachypneic using accessory muscles of respiration. There was some concern regarding aspiration. I evaluated the patient following his arrival to the ICU. He was breathing in the 30s using accessory muscles of respiration on a nonrebreather facemask. He is awake however not really able to give me details of history due to respiratory distress. Patient will be placed on BiPAP and Precedex in order to avoid intubation. He does have significantly advanced COPD and recently completed a course of antibiotics. Will restart empiric antibiotics with Zyvox/ Levaquin/Flagyl IV. 09/02: Patient was intubated yesterday(09/01) for worsening respiratory distress despite BiPAP and placed on mechanical ventilation. Remains sedated, orally intubated on mechanical ventilation. On Levophed for pressor support. Hemoglobin 7.5 this morning. 2 units PRBCs ordered to be transfused. Borderline elevated troponin noted. 09/03: Remains sedated, orally intubated on mechanical ventilation. Off levophed. 2 units PRBCs transfused yesterday 09/04: Sedated, arousable, orally intubated on mechanical ventilation. Tolerating tube feeds. Failed CPAP trials. 09/05: Remains sedated, orally intubated on mechanical ventilation. Tolerating tube feeds. Failing CPAP trials. 09/06: Sedated, arousable, orally intubated on mechanical ventilation. Failed CPAP trials. 09/07: Sedated, arousable, orally intubated on mechanical ventilation. Failing CPAP trials. Will need tracheostomy and PEG tube placement as family desires aggressive care. Palliative care and discussions with family. 09/08: no improvements at all. febrile again today. juarez-cultured. central line removed and replaced. long discussion with daughter: needs trach/PEG, LTAC. Objective Vital Signs Date Time Temp Pulse Resp B/P (MAP) Pulse Ox O2 Delivery O2 Flow Rate FiO2 09/08/17 15:07 94 35 09/08/17 14:00 119 09/08/17 12:00 99.7 17 142/82 (102) Intake and Output 09/08/17 09/08/17 09/09/17 08:00 16:00 00:00 Intake Total 987 ml Output Total 1000 ml Balance -13 ml Result Diagram: 09/08/17 0400 09/08/17 0400 Imaging Last Impressions Chest X-Ray 08/23/17 0600 Signed Impressions: Service Date/Time: Wednesday, August 23, 2017 04:23 - CONCLUSION: Clear lungs. Ricki Metzger Jr., MD CT Angiography 08/13/17 0000 Signed Impressions: Service Date/Time: Sunday, August 13, 2017 07:25 - CONCLUSION: 1. No CT evidence for pulmonary embolism as questioned. 2. Moderate to severe upper lobe predominant centrilobular emphysema. 3. Patchy bibasilar groundglass opacities likely reflecting atelectasis although differential considerations include aspiration. 4. Multiple 4-6mm bilateral groundglass and solid nodules, likely infectious/inflammatory. Recommend followup CT examination in approximately 6 months per 2017 Fleischner criteria (6mm nodule). Steve Barajas MD Last Impressions Chest X-Ray 08/13/17 0414 Signed Impressions: Service Date/Time: Sunday, August 13, 2017 04:28 - CONCLUSION: Lungs are grossly clear. ET tube in good position. Abel Cannon MD CT Angiography 08/13/17 0000 Signed Impressions: Service Date/Time: Sunday, August 13, 2017 07:25 - CONCLUSION: 1. No CT evidence for pulmonary embolism as questioned. 2. Moderate to severe upper lobe predominant centrilobular emphysema. 3. Patchy bibasilar groundglass opacities likely reflecting atelectasis although differential considerations include aspiration. 4. Multiple 4-6mm bilateral groundglass and solid nodules, likely infectious/inflammatory. Recommend followup CT examination in approximately 6 months per 2017 Fleischner criteria (6mm nodule). Steve Barajas MD Objective Remarks GEN: middle-aged male who appears much older than stated age, sedated, orally intubated on mechanical ventilation HEENT: Pallor present, no icterus, tongue/ mucosa moist. Neck: No JVD Chest/Pulm: Orally intubated on mechanical ventilation, equal chest rise. CVS: tachycardic rate, regular rhythm. sinus. GI/abdomen: soft, nontender, no guarding. Extremities: warm bilaterally, 2+ peripheral edema bilateral upper extremity edema. Left lower extremity status post BKA Neuro: Sedated, arousable, orally intubated, moving all extremities. A/P Assessment and Plan Assessment: Acute on chronic hypoxic and hypercarbic respiratory failure Acute metabolic encephalopathy Severe sepsis Acute COPD exacerbation NSTEMI Pseudomonas pneumonia Suspected aspiration MRSA Ventilator associated pneumonia Advanced COPD/emphysema Anemia CAD History of cardiomyopathy Diabetes Hyperlipidemia Hypertension Paroxysmal atrial fibrillation. Peripheral vascular disease Plan: Neuro: - Follow neuro status. -Sedation with Versed/fentanyl gtt. -Daily sedation vacation Cardiovascular: -Was on Isosorbide mononitrate, atorvastatin, lasix per Dr. Gary. Holding Isosorbide, Lasix and lisinopril due to increasing BUN, hypotension -Holding heparin and Coumadin since 08/19 in view of hemoptysis currently. Continue Lovenox 40 mg sq daily -Continue aspirin. Cardiology Dr. Gary. 2D echo EF 50% - Borderline troponin elevation on 09/02 -Dr. Gary recommends nuclear stress test when able to tolerate. Pulmonary: - patient and family goals as of my discussion 08/25: aggressive care including tracheostomy if he gets reintubated. -Failed extubation 08/16/2017, reintubated approximately after 6-8 hours. Total vent day -Patient will need prolonged ventilatory support and will need trach due to severe emphysema, and pneumonia and sepsis -CT of the chest showed severe emphysema and pneumonia -Failed BiPAP so intubated and placed on mechanical ventilation on 09/01 -Failing CPAP trials. Will require tracheostomy and PEG tube. - trach/peg consults ordered. - will need LTAC level care after this. GI/liver: -Started tube feeds on 09/02, advanced to goal. - PEG consult placed. Renal/: -Lasix daily. Hold Aldactone. -Strict intake output, monitor and replete electrodes, follow BUN/creatinine. ID: -Sputum culture growing pansensitive pseudomonas 08/13/17, MRSA on 08/22 -Was on empiric antibiotic coverage with IV Zyvox/Levaquin/Flagyl -Reconsulted ID to manage abx. All antibiotics stopped on 09/04 per ID. New fever concerning. central line 10 days old. will remove and replace. juarez culture. wbc normal. will hold off on abx and remove lines. Endocrine: -Watch for hypoglycemia, SSI for glycemic control if needed. -Currently on Levemir every 12, SSI Heme: -Follow CBC and coags. Holding heparin and Coumadin in view of hemoptysis. -Transfused 2 units PRBCs in view of non-ST elevation TN to bring hemoglobin up to 9 g percent Prophylaxis: -Pepcid/SCDs. Lovenox 40 mg subcutaneously (Full anticoagulation held due to hemoptysis) and will continue prophylactic dose provided hemoptysis does not recur or worsen. D/W CAMPUS MONITOR, D/W RT. Mete Uribe MD Sep 08, 2017 15:13
[2017-09-08] MEDS ORDERED: MIDAZOLAM HCL 5 MG/5 ML VIAL IV PUSH ONE (15:15)
[2017-09-08] MEDS ORDERED: MIDAZOLAM HCL 5 MG/ML VIAL (1 ML) ONE ×2 (15:16→22:21)
--- NOTE | 2017-09-08 16:29 | RADRPT ---
EXAM DATE: 09/08/2017 4:12 PM EDT AGE/SEX: 66 years / Male INDICATIONS: Left internal jugular central line placement. CLINICAL DATA: This is the patient's subsequent encounter. Patient reports that signs and symptoms h ave been present for 1 week and indicates a pain score of Nonresponsive. MEDICAL/SURGICAL HISTORY: Non-responsive. CABG. Right BKA COMPARISON: C, CHEST SINGLE AP, 09/08/2017. . FINDINGS: Mild parenchymal consolidation persists at the right base. Left lung remains reasonably clear. No lar ge effusion demonstrated. No pneumothorax. Heart size stable, within normal limits. Median sternotomy and CABG changes are again noted. Patient remains intubated. Endotracheal tube tip is approximately 4.5 cm above the axel. Right IJ c entral venous catheter unchanged, tip in the superior vena cava. There is a new left IJ central venou s catheter with tip at the atrial caval junction. Nasogastric tube courses into the stomach. CONCLUSION: 1. New left internal jugular central venous catheter with tip at the atriocaval junction. No pneumot horax or other acute complication demonstrated. 2. Other lines and tubes unchanged as above. 3. Right base consolidation not significantly changed. Electronically signed by: David Cabezas MD 09/08/2017 4:28 PM EDT
--- NOTE | 2017-09-08 16:41 | PD.PROCEDR ---
Procedure Note Procedure Central Line Procedure Note Left IJ 7 Polish 20 cm triple-lumen catheter Diagnosis: Septic shock Indications: Need for highly potent vasoactive substances Consent: Obtained Anesthesia: Versed 5 mg IV Description of the Procedure: The patient was placed in the supine, mild- Trendelenburg position. The area was prepped and draped sterilely. A 19g needle was inserted under negative pressure aspiration and dark venous blood was obtained. A guidewire was inserted easily without resistance. A small incision was made using a #11 blade. Using a modified Seldinger technique, the dilator and 7 Polish, 20 cm catheter were advanced over the guidewire without resistance. All ports were aspirated and flushed, and had brisk blood return. The line was secured at the skin using a non-suture StatLock device. A Biopatch and Transparent sterile dressing were applied. There were no immediate complications noted. There was minimal EBL. The patient tolerated the procedure well. Ultrasound Guidance: Ultrasound guidance was used to identify the left internal jugular vein. The vascular anatomy of the left anterior neck was normal. The vessel was cannulated under direct, real-time ultrasound visualization. After placement of the guidewire, confirmation of the guidewire in the lumen of the vessel was made using ultrasound visualization, before dilation of the tract. A Chest x-ray has been ordered. I personally performed the procedure. Meet Uribe MD Sep 08, 2017 16:41
[2017-09-08] MEDS: METOPROLOL TARTRATE 50 MG TAB PO SCH (17:18)
--- NOTE | 2017-09-08 18:47 | HHI.PR ---
Subjective Remarks 66 YOWM with VDRF,COPD,NSTMI Started Vasopressin Sedated with Fentanyl and Versed No Fever Tolerated CPAP briefly Back on Vent Objective Vital Signs Vital Signs Date Time Temp Pulse Resp B/P (MAP) Pulse Ox O2 Delivery O2 Flow Rate FiO2 09/08/17 18:00 87 09/08/17 16:00 99.0 113 18 120/74 (89) 95 09/08/17 16:00 113 09/08/17 16:00 35 09/08/17 15:07 94 35 09/08/17 14:00 119 09/08/17 12:15 93 35 09/08/17 12:00 99.7 109 17 142/82 (102) 94 09/08/17 12:00 109 09/08/17 12:00 35 09/08/17 11:27 94 35 09/08/17 11:26 35 09/08/17 11:21 95 35 09/08/17 10:00 100 09/08/17 08:00 102 09/08/17 08:00 35 09/08/17 08:00 100.1 102 18 105/68 (80) 96 09/08/17 07:43 98 35 09/08/17 06:00 107 09/08/17 04:30 104 18 97/62 (74) 94 09/08/17 04:23 97 35 09/08/17 04:15 104 18 100/63 (75) 94 09/08/17 04:00 35 09/08/17 04:00 99.0 107 18 102/60 (74) 93 09/08/17 04:00 104 09/08/17 03:46 114 21 114/55 (74) 100 09/08/17 03:45 111 21 100 09/08/17 03:30 104 18 102/57 (72) 97 09/08/17 03:18 103 107/59 09/08/17 03:15 103 18 107/59 (75) 97 09/08/17 03:00 104 18 107/59 (75) 96 09/08/17 02:45 103 18 104/58 (73) 96 09/08/17 02:30 103 18 105/61 (76) 97 09/08/17 02:15 102 18 101/63 (76) 97 09/08/17 02:00 104 6/3/18 02:00 104 18 97/61 (73) 96 6/18 01:45 104 18 111/65 (80) 96 618 01:30 105 18 99/59 (72) 96 618 01:15 102 18 104/60 (75) 97 6//18 01:00 104 18 125/66 (85) 100 6//18 00:51 96 35 618 00:45 104 18 96/64 (75) 93 618 00:30 107 18 98/67 (77) 96 618 00:15 105 18 95/67 (76) 94 618 00:00 99.2 106 18 97/69 (78) 94 18 00:00 106 618 00:00 35 6/18 23:45 104 18 94/63 (73) 94 18 23:30 104 18 97/64 (75) 95 18 23:15 102 18 103/60 (74) 96 18 23:00 103 18 100/64 (76) 94 6/18 22:45 102 18 100/60 (73) 95 6/2/18 22:30 104 18 105/67 (80) 95 6/18 22:15 105 18 107/73 (84) 95 618 22:00 104 18 102/67 (79) 95 618 22:00 104 6/2/18 21:45 102 18 102/68 (79) 96 09/07/18 21:30 99 18 102/68 (79) 97 62/18 21:15 102 18 102/70 (81) 96 6/2/18 21:00 101 18 88/61 (70) 96 6/2/18 20:46 101 18 90/67 (75) 96 62/18 20:30 101 18 82/62 (69) 97 6/18 20:15 104 18 94/69 (77) 96 6//18 20:00 105 6/2/18 20:00 99.3 103 18 92/56 (68) 98 62/18 20:00 35 6/2/18 19:47 100 35 6/2/18 19:45 104 18 95/62 (73) 98 09/07/17 19:30 104 18 95/68 (77) 99 09/07/17 19:15 105 18 97/68 (78) 98 09/07/17 19:01 105 18 92/66 (75) 99 09/07/17 19:00 105 18 98 09/07/17 19:00 105 92/66 I/O 09/07/17 09/07/17 09/07/17 09/08/17 09/08/17 09/08/17 07:00 15:00 23:00 07:00 15:00 23:00 Intake Total 600 ml 2484 ml 987 ml 904 ml Output Total 600 ml 1025 ml 1000 ml 1050 ml Balance 0 ml 1459 ml -13 ml -146 ml IV Total 1750 ml 327 ml Tube Feeding 540 ml 674 ml 600 ml 444 ml Tube Irrigant 60 ml 60 ml 60 ml Other 60 ml 400 ml Output Urine Total 400 ml 725 ml 600 ml 750 ml Stool Total 200 ml 300 ml 400 ml 300 ml # Bowel Movements 1 Result Diagram: 09/08/17 0400 09/08/17 0400 Objective Remarks GENERAL: Elderly male, on vent sedated SKIN: Warm and dry. HEAD: Normocephalic. EYES: No scleral icterus. No injection or drainage. NECK: Supple, trachea midline. No JVD or lymphadenopathy. CARDIOVASCULAR: Regular rate and rhythm without murmurs, gallops, or rubs. RESPIRATORY: Breath sounds equal bilaterally. No accessory muscle use. GASTROINTESTINAL: Abdomen soft, non-tender, nondistended. MUSCULOSKELETAL: No cyanosis, or edema. BACK: Nontender without obvious deformity. No CVA tenderness. A/P Assessment and Plan IMPRESSION: VDRF Pneumonia COPD NSTMI Anemia PLAN: Cont Vent Support PRVC AC, fi02 35% Aerosol nebs PRBC Sedation with Fentanyl and Versed Vasopressin Plans for PEG and Trach will FU in AM. Justin Weber MD Sep 08, 2017 18:47
[2017-09-08] MEDS: ATORVASTATIN 40 MG TAB PO SCH (20:47)
[2017-09-08] MEDS: oxyCODONE HCL ORAL CONC 5 MG/0.25 ML SYRINGE PO PRN (20:48)
[2017-09-08] MEDS ORDERED: DEXMEDETOMIDINE 200 MCG in NS 48 ML IV PRN (21:45)
[2017-09-08] MEDS ORDERED: DEXMEDETOMIDINE INJ 400 MCG in SODIUM CHLORIDE 0.9% INJ 96 ML IV PRN (22:00)
[2017-09-08] MEDS ORDERED: ADENOSINE IV SOLN 3 MG/ML 2 ML VIAL IV PUSH ONE ×2 (22:15)
[2017-09-08] MEDS ORDERED: CALCIUM GLUCONATE INJ 2 GM in SODIUM CHLORIDE 0.9% INJ 100 ML IV ONE (22:15)
[2017-09-08] MEDS ORDERED: METOPROLOL TARTRATE 5 MG/5 ML VIAL IV PUSH ONE (22:45)
[2017-09-08] MEDS ORDERED: SODIUM CHLOR 0.9% 1000 ML INJ 1,000 ML IV ONE (23:00)
[2017-09-08 23:23] LABS: BASOPHIL % 0.1 % (0.0-2.0); HEMOGLOBIN 9.8 GM/DL (13.0-17.0); LYMPH % 4.2 % (9.0-44.0); LYMPHOCYTE # 0.2 TH/MM3 (1.0-4.8); MEAN CELL VOLUME 96.5 FL (80.0-100.0); MEAN CORPUSCULAR HEMOGLOBIN 30.5 PG (27.0-34.0); MEAN CORPUSCULAR HGB CONC 31.6 % (32.0-36.0); MEAN PLATELET VOLUME 11.2 FL (7.0-11.0); MONO % 6.6 % (0.0-8.0); MONOCYTE # 0.4 TH/MM3 (0-0.9); NEUT % 89.1 % (16.0-70.0); PLATELET COUNT 77 TH/MM3 (150-450); RED BLOOD COUNT 3.21 MIL/MM3 (4.50-5.90); RED CELL DISTRIBUTION WIDTH 18.2 % (11.6-17.2); WHITE BLOOD COUNT 5.6 TH/MM3 (4.0-11.0)
[2017-09-08 23:45] LABS: ALBUMIN 1.3 GM/DL (3.4-5.0); BICARBONATE 25.5 MEQ/L (21.0-32.0); CALCIUM 7.1 MG/DL (8.5-10.1); CALCIUM-PROTEIN CORRECTED 8.9 MG/DL (8.5-10.1); CREATININE 0.56 MG/DL (0.60-1.30); MAGNESIUM 2.5 MG/DL (1.5-2.5); PHOSPHORUS 3.9 MG/DL (2.5-4.9); TOTAL BILIRUBIN ADULT 0.8 MG/DL (0.2-1.0); TOTAL PROTEIN 3.9 GM/DL (6.4-8.2)
[2017-09-08 23:46] LABS: BANDS 14 % (0-6); CORRECTED NUCLEATED RBC 8 /100 WBC (0-0); LYMPHOCYTES 5 % (9-44); METAMYELOCYTES 5 % (0-1); MONOCYTES 2 % (0-8); NEUTROPHIL # MANUAL DIFF 5.2 TH/MM3 (1.8-7.7); NUCLEATED RED BLOOD CELL 8 (0-0); POLYS (SEG NEUTROPHILS) 74 % (16-70)
[2017-09-08] MEDS: ESMOLOL DRIP INJ PREMIX 250 ML IV PRN (23:56)
[2017-09-09] VITALS (58 sets, daily range): BP systolic 77–126; BP diastolic 35–76; PULSE 69–163; RESP 0–47; TEMP 97–98.9; O2SAT 94–100
[2017-09-09] MEDS: INSULIN ASPART SUPPLEMENTAL SCALE SQ SCH ×6 (00:07→20:04)
[2017-09-09] MEDS: VASOPRESSIN INJ 40 UNITS in DEXTROSE 5% IN WATER 100ML INJ 98 ML IV SCH ×6 (00:21→05:18)
[2017-09-09] MEDS: METOPROLOL TARTRATE 50 MG TAB PO SCH ×2 (00:21→05:17)
[2017-09-09] MEDS: SODIUM CHLOR 0.45% 1000 ML INJ 1,000 ML IV SCH ×3 (01:11→20:05)
[2017-09-09] MEDS: ESMOLOL DRIP INJ PREMIX 250 ML IV PRN ×2 (02:25→04:58)
[2017-09-09] MEDS ORDERED: MIDAZOLAM HCL 5 MG/ML VIAL (1 ML) ONE (02:48)
--- NOTE | 2017-09-09 03:04 | RADRPT ---
EXAM DATE: 09/09/2017 2:20 AM EDT AGE/SEX: 66 years / Male INDICATIONS: Increased lab values. CLINICAL DATA: This is the patient's initial encounter. Patient reports that signs and symptoms have been present for 1 day and indicates a pain score of Nonresponsive. MEDICAL/SURGICAL HISTORY: . Cardiovascular disease. Cerebrovascular disease. Hypertension. D iabetic. . Stemotomy. ET Tube. NG Tube. COMPARISON: No prior exams available for comparison. MEASUREMENTS (cm x cm x cm): Liver:__ 16.2 cm length Common Bile Duct:__ 4mm Right Kidney:__ 11.9 x 6.3 x 5.8 cm FINDINGS: Liver: Normal echotexture without focal lesion or ductal dilatation. Portal Vein: Hepatofugal flow seen in portal vein. Common Duct: No intralumincal mass or stone visualized. Gallbladder: No definite gallstones are demonstrated. There is trace of fluid adjacent to the gallbl adder. Gallbladder Wall: 4 mm Pancreas: Mild prominence of the pancreatic duct at 2 mm. Otherwise the visualized portions of the pa ncreas are grossly unremarkable. Right Kidney: No evidence of hydronephrosis. 9 mm cyst along the mid pole. Other: None. CONCLUSION: 1. There is some thickening of the gallbladder wall at 4 mm. There is a trace of fluid adjacent to t he gallbladder. This can be seen with chronic gallbladder disease. No definite gallstones or biliary tract obstruction. 2. Mild prominence of the pancreatic duct at 2 mm. 3. 9 mm right renal cyst. Electronically signed by: Edgar Sierra MD 09/09/2017 3:02 AM EDT
[2017-09-09] MEDS: FREE WATER G-TUBE SCH ×3 (03:57→20:04)
[2017-09-09] MEDS: CHLORHEXIDINE GLUCONATE 2 % 1 PACK (2 CLOTHS) TOP SCH (03:57)
[2017-09-09] MEDS ORDERED: LIDOCAINE HCL 2% 100 MG/5 ML SYRINGE IV PUSH ONE (04:00)
[2017-09-09 04:50] LABS: HEMOGLOBIN 8.9 GM/DL (13.0-17.0); MEAN CELL VOLUME 96.1 FL (80.0-100.0); MEAN CORPUSCULAR HEMOGLOBIN 30.5 PG (27.0-34.0); MEAN CORPUSCULAR HGB CONC 31.7 % (32.0-36.0); MEAN PLATELET VOLUME 11.5 FL (7.0-11.0); PLATELET COUNT 66 TH/MM3 (150-450); RED BLOOD COUNT 2.91 MIL/MM3 (4.50-5.90); RED CELL DISTRIBUTION WIDTH 18.4 % (11.6-17.2); WHITE BLOOD COUNT 3.8 TH/MM3 (4.0-11.0)
[2017-09-09] MEDS: MIDODRINE 5 MG TAB PO SCH ×3 (05:17→22:12)
[2017-09-09] MEDS: ISOSORBIDE MONONITRATE 60 MG CR TAB (IMDUR) PO SCH (05:17)
[2017-09-09] MEDS: PANTOPRAZOLE SODIUM 40 MG VIAL IV PUSH SCH ×2 (05:17→18:20)
[2017-09-09 05:19] LABS: BICARBONATE 24.9 MEQ/L (21.0-32.0); CALCIUM 7.4 MG/DL (8.5-10.1); CREATININE 0.48 MG/DL (0.60-1.30)
[2017-09-09 05:32] LABS: CALCIUM-PROTEIN CORRECTED 9.5 MG/DL (8.5-10.1); TOTAL PROTEIN 3.7 GM/DL (6.4-8.2)
[2017-09-09] MEDS: RESP: ALBUTEROL 2.5 MG/IPRATROPIUM 0.5 MG NEB (PRN) NEB (07:53)
[2017-09-09] MEDS: RESP: BUDESONIDE 0.5 MG/2 ML NEB NEB SCH ×2 (07:53→19:40)
[2017-09-09] MEDS: FAMOTIDINE 20 MG TAB TUBE SCH ×2 (08:15→20:05)
[2017-09-09] MEDS: ASPIRIN 81 MG CHEW TAB CHEW SCH (08:15)
[2017-09-09] MEDS ORDERED: SODIUM CHLOR 0.45% 500 ML INJ 500 ML IV ONE (08:15)
[2017-09-09] MEDS: methylPREDNISolone SOD SUCC 125 MG/2 ML VIAL IV PUSH SCH (08:16)
[2017-09-09] MEDS: FUROSEMIDE 20 MG/2 ML VIAL IV PUSH SCH (08:17)
[2017-09-09] MEDS: SODIUM CHLORIDE 0.9% FLUSH 10 ML FLUSH IV FLUSH SCH ×3 (08:17→20:04)
--- NOTE | 2017-09-09 08:19 | MB ---
cc: Mendoza Shearer MD DATE: 09/08/2017 REASON FOR CONSULTATION: Acute respiratory failure in need of tracheostomy. HISTORY OF PRESENT ILLNESS: The patient is a 66-year-old male who presents with multiple medical issues. He was noted to have acute respiratory distress, shortness of breath and altered mental status. He was intubated in the field, with elevated troponins, abnormal EKG. He has had a prolonged hospital course requiring reintubation. He is noted to have pneumonia, several infections, which he was placed on antibiotics for. He is currently being followed by cardiology, pulmonary, critical care ____ . The patient again noted attempts for weaning of ventilation, which the patient only tolerated CPAP trials for an hour or less and then failed. He is back on the vent and is unable to be weaned currently from this. Consultation to surgery for tracheostomy placement. Full history, unable to obtain via patient as he is intubated, obtained through notes. PAST MEDICAL HISTORY: Angina, left BKA, peripheral vascular disease, diabetes, COPD, obstructive sleep apnea, hypertension, TIAs, previous MT, disk herniation, coronary artery disease, atrial fibrillation, hyperlipidemia, squamous cell cancer. PAST SURGICAL HISTORY: Aortobifemoral bypass, cholecystostomy, cholecystotomy tube placement, CABG, removal of squamous cell cancer, hand surgery, fem-fem bypass. SOCIAL HISTORY: Smokes 1 pack a day. Denies ETOH, IVDA. FAMILY HISTORY: Gastric cancer, mother of colon cancer. Father of gastric cancer. MEDICATIONS: See EMR. ALLERGIES: CEFACLOR REVIEW OF SYSTEMS: GENERAL: Unable to obtain. HEENT: Unable to obtain. NECK: Unable to obtain. HEART: Unable to obtain. LUNGS: Unable to obtain. ABDOMEN: Unable to obtain. EXTREMITIES: Unable to obtain. PHYSICAL EXAMINATION: GENERAL: The patient in no acute distress, on vent. VITAL SIGNS: Temperature 99, pulse 113, respiration 18, blood pressure 120/74, saturation 95% on 35% FiO2. HEENT: Pupils equal, round, reactive. ET tube in place. NG tube in place. NECK: Supple. Trachea midline. LUNGS: Bilateral expansion. HEART: S1, S2. Healed midline sternotomy scar. ABDOMEN: Soft, nontender, nondistended. EXTREMITIES: Left BKA, well-healed stump. Right lower extremity, peripheral vascular disease. NEUROLOGIC: Awake, alert, following commands. PSYCHIATRIC: Unable to obtain. LABORATORY AND DIAGNOSTIC DATA: WBC 5.8, hemoglobin 10.9, hematocrit 33.4, platelets 64. Sodium 157, potassium 4.3, chloride 120, BUN 54, creatinine 0.5, total bilirubin 0.3. INR ____, PTT 21.5. IMAGING: Recent chest x-ray, bibasilar consolidation, right worse than left. ASSESSMENT: The patient is a 66-year-old male, acute respiratory failure, ventilator dependent. Consultation for tracheostomy. PLAN: After full clinical, radiological, laboratory workup, the patient ____ the issues. The patient, at this point, is unable to be weaned from the ventilator. Therefore, discussion with the ____ nursing staff for tracheostomy placement. We will plan likely to do this tomorrow. The patient will be n.p.o. We will obtain consents. We will correct any labs that are needed for correction. MD MAGED Rainey/ANGELA/juan miguel , 09:44 PM , 10:15 PM
[2017-09-09] MEDS: CHLORHEXIDINE 0.12% (ORAL KIT) 15 ML CUP MT SCH ×2 (08:20→20:04)
--- NOTE | 2017-09-09 08:52 | HHI.PR ---
Subjective Remarks SEDATED ON VENT SUPPORT Objective Vital Signs Date Time Temp Pulse Resp B/P (MAP) Pulse Ox O2 Delivery O2 Flow Rate FiO2 09/09/17 07:25 114 09/09/17 06:40 69 106/65 09/09/17 06:30 69 127/73 09/09/17 06:00 69 09/09/17 05:18 120 99/51 09/09/17 04:58 71 93/60 09/09/17 04:22 99 35 09/09/17 04:11 108 18 100/63 (75) 99 09/09/17 04:00 35 09/09/17 04:00 71 09/09/17 04:00 71 18 108/62 (77) 100 09/09/17 03:50 143 18 90/52 (65) 100 09/09/17 03:45 115 18 100 09/09/17 03:42 107 18 83/52 (62) 99 09/09/17 03:40 145 19 78/51 (60) 100 09/09/17 03:30 73 24 101/62 (75) 100 09/09/17 03:20 108 18 87/58 (68) 100 09/09/17 03:15 162 18 100 09/09/17 03:10 106 18 79/53 (62) 100 09/09/17 03:00 142 18 86/52 (63) 09/09/17 02:50 155 18 90/48 (62) 100 09/09/17 02:45 163 18 100 09/09/17 02:41 119 18 98/55 (69) 99 09/09/17 02:30 159 0 81/45 (57) 09/09/17 02:25 160 101/58 09/09/17 02:20 119 0 101/58 (72) 100 09/09/17 02:15 163 0 100 09/09/17 02:10 159 1 99/56 (70) 100 09/09/17 02:00 72 18 104/56 (72) 100 09/09/17 02:00 139 09/09/17 02:00 72 18 104/56 (72) 100 09/09/17 01:50 74 18 111/59 (76) 100 09/09/17 01:45 134 18 100 09/09/17 01:40 73 18 111/65 (80) 100 6/4/18 01:30 76 18 109/73 (85) 100 618 01:20 162 18 89/55 (66) 100 09/09/17 01:15 111 18 100 09/09/17 01:10 115 18 108/55 (72) 100 18 01:00 108 18 104/59 (74) 100 18 00:54 100 35 09/09/17 00:50 77 18 104/59 (74) 100 09/09/17 00:45 104 23 100 18 00:40 143 29 77/51 (60) 100 09/09/17 00:36 139 38 82/35 (51) 100 09/09/17 00:30 162 80/48 09/09/17 00:30 162 24 80/48 (59) 100 09/09/17 00:20 145 104/54 09/09/17 00:10 164 101/54 09/09/17 00:05 161 99/51 09/09/17 00:00 97.0 129 37 99/51 (67) 97 09/09/17 00:00 129 09/09/17 00:00 35 18 23:56 146 92/54 18 23:50 161 52 92/54 (67) 97 18 23:45 123 26 97 18 23:40 125 46 100/59 (73) 97 18 23:30 123 36 102/57 (72) 98 18 23:20 145 53 105/53 (70) 98 18 23:15 92 18 97 18 23:10 94 21 108/55 (72) 97 618 23:00 90 40 113/59 (77) 97 6/3/18 22:50 87 18 113/63 (80) 97 6/18 22:45 87 18 116/62 (80) 97 6/18 22:40 89 19 112/62 (79) 97 6//18 22:35 88 27 116/65 (82) 98 6/3/18 22:30 87 18 115/65 (82) 97 63/18 22:25 87 18 134/67 (89) 97 6/18 22:22 90 35 140/72 (94) 96 618 22:20 171 19 100/63 (75) 97 618 22:18 173 23 98/61 (73) 98 18 22:17 173 36 99/61 (74) 98 6/18 22:15 174 30 100 18 22:00 170 18 22:00 170 18 122/84 (97) 96 18 21:45 167 18 147/93 (111) 96 18 21:31 160 18 109/55 (73) 98 18 21:30 156 18 97 18 21:15 104 18 119/75 (90) 96 18 21:00 110 19 131/76 (94) 97 18 20:45 111 20 129/78 (95) 97 18 20:30 110 18 129/76 (93) 96 18 20:15 109 19 133/82 (99) 96 09/08/17 20:00 81 18 20:00 35 18 20:00 96.5 106 19 129/77 (94) 96 09/08/18 19:45 101 21 117/73 (88) 98 18 19:38 96 35 18 19:30 97 18 102/66 (78) 96 18 19:15 94 18 108/70 (83) 97 18 19:00 95 18 106/66 (79) 96 18 18:00 87 18 16:00 99.0 113 18 120/74 (89) 95 618 16:00 113 18 16:00 35 18 15:07 94 35 18 14:00 119 18 12:15 93 35 09/08/17 12:00 99.7 109 17 142/82 (102) 94 18 12:00 109 09/08/17 12:00 35 18 11:27 94 35 09/08/17 11:26 35 09/08/17 11:21 95 35 18 10:00 100 I/O 09/08/17 09/08/17 09/08/17 09/09/17 09/09/17 09/09/17 07:00 15:00 23:00 07:00 15:00 23:00 Intake Total 987 ml 904 ml 2855 ml Output Total 1000 ml 1050 ml 700 ml Balance -13 ml -146 ml 2155 ml IV Total 327 ml 2355 ml Tube Feeding 600 ml 444 ml 300 ml Tube Irrigant 60 ml Other 60 ml 400 ml 200 ml Output Urine Total 600 ml 750 ml 300 ml Stool Total 400 ml 300 ml 400 ml Bladder Scan Volume Amount 350 ml # Bowel Movements 1 Result Diagram: 09/09/1740909/09/17409 Objective Remarks GENERAL: SKIN: Warm and dry. HEAD: Atraumatic. Normocephalic. EYES: Pupils equal and round. No scleral icterus. No injection or drainage. ENT: No nasal bleeding or discharge. Mucous membranes pink and moist. NECK: Trachea midline. No JVD. CARDIOVASCULAR: Regular rate and rhythm. RESPIRATORY: No accessory muscle use. Clear to auscultation. Breath sounds equal bilaterally. GASTROINTESTINAL: Abdomen soft, non-tender, nondistended. Hepatic and splenic margins not palpable. MUSCULOSKELETAL: Extremities without clubbing, cyanosis, or edema. No obvious deformities. NEUROLOGICAL: Awake and alert. No obvious cranial nerve deficits. Motor grossly within normal limits. Five out of 5 muscle strength in the arms and legs. Normal speech. PSYCHIATRIC: Appropriate mood and affect; insight and judgment normal. Assessment and Plan Assessment and Plan IMPRESSION RESPIRATORY FAILURE COPD AFIB HTN PVD CAD PLAN VENT SUPPORT BRONCHODILATOR THERAPY FOR TRACH WEAN OFF VENT TOLERATED Goran Zimmer MD Sep 09, 2017 08:52
[2017-09-09] MEDS: INSULIN DETEMIR 100 UNITS/ML VIAL SQ SCH (09:00)
--- NOTE | 2017-09-09 09:43 | PD.CONS ---
HPI History of Present Illness This is a 66 year old M with PMH significant for cardiomyopathy, COPD, CAD S/P bypass surgery, DM, hyperlipidemia, HTN, paroxysmal a-fib, PVD who presented to the ER in respiratory distress, was at one point able to be extubated and was reintubated on 09/01 and has been unable to be weaned from the vent. Family has opted for aggressive care, our service has been consulted for PEG placement. Our service was previously consulted for possible melena, however signed off because was too high risk for endoscopic procedures at that time. GS planning on tracheostomy tomorrow. 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 Cholecystostomy tube placement CABG Squamous cell carcinoma removal Surgery left hand . (Michelle Chung) Coded Allergies: cefaclor (Verified Allergy, Intermediate, rash, 06/28/17) Family History Strong familial history of cancer including gastric cancer and lung cancer. Mother from colon cancer at age 54; father in 1970 from some type of gastric cancer. . Social History smokes 1 ppd (Michelle Chung) Review of Systems Unable to obtain (Michelle Chung) GI Exam Vitals I&O Vital Signs Date Time Temp Pulse Resp B/P (MAP) Pulse Ox O2 Delivery O2 Flow Rate FiO2 09/09/17 07:25 114 09/09/17 06:40 69 106/65 09/09/17 06:30 69 127/73 09/09/17 06:00 69 09/09/17 05:18 120 99/51 09/09/17 04:58 71 93/60 09/09/17 04:22 99 35 09/09/17 04:11 108 18 100/63 (75) 99 09/09/17 04:00 35 09/09/17 04:00 71 09/09/17 04:00 71 18 108/62 (77) 100 09/09/17 03:50 143 18 90/52 (65) 100 09/09/17 03:45 115 18 100 09/09/17 03:42 107 18 83/52 (62) 99 09/09/17 03:40 145 19 78/51 (60) 100 09/09/17 03:30 73 24 101/62 (75) 100 09/09/17 03:20 108 18 87/58 (68) 100 09/09/17 03:15 162 18 100 09/09/17 03:10 106 18 79/53 (62) 100 09/09/17 03:00 142 18 86/52 (63) 09/09/17 02:50 155 18 90/48 (62) 100 09/09/17 02:45 163 18 100 09/09/17 02:41 119 18 98/55 (69) 99 09/09/17 02:30 159 0 81/45 (57) 09/09/17 02:25 160 101/58 09/09/17 02:20 119 0 101/58 (72) 100 09/09/17 02:15 163 0 100 09/09/17 02:10 159 1 99/56 (70) 100 09/09/17 02:00 72 18 104/56 (72) 100 09/09/17 02:00 139 09/09/17 02:00 72 18 104/56 (72) 100 09/09/17 01:50 74 18 111/59 (76) 100 09/09/17 01:45 134 18 100 09/09/17 01:40 73 18 111/65 (80) 100 09/09/17 01:30 76 18 109/73 (85) 100 09/09/17 01:20 162 18 89/55 (66) 100 09/09/17 01:15 111 18 100 09/09/17 01:10 115 18 108/55 (72) 100 09/09/17 01:00 108 18 104/59 (74) 100 09/09/17 00:54 100 35 09/09/17 00:50 77 18 104/59 (74) 100 09/09/17 00:45 104 23 100 09/09/17 00:40 143 29 77/51 (60) 100 09/09/17 00:36 139 38 82/35 (51) 100 09/09/17 00:30 162 80/48 6/4/18 00:30 162 24 80/48 (59) 100 6/4/18 00:20 145 104/54 6/4/18 00:10 164 101/54 6/4/18 00:05 161 99/51 6/4/18 00:00 97.0 129 37 99/51 (67) 97 6/4/18 00:00 129 6/4/18 00:00 35 6/3/18 23:56 146 92/54 6/3/18 23:50 161 52 92/54 (67) 97 6/3/18 23:45 123 26 97 6/3/18 23:40 125 46 100/59 (73) 97 6/3/18 23:30 123 36 102/57 (72) 98 6//18 23:20 145 53 105/53 (70) 98 6//18 23:15 92 18 97 6//18 23:10 94 21 108/55 (72) 97 6/3/18 23:00 90 40 113/59 (77) 97 6//18 22:50 87 18 113/63 (80) 97 6/3/18 22:45 87 18 116/62 (80) 97 6/3/18 22:40 89 19 112/62 (79) 97 6//18 22:35 88 27 116/65 (82) 98 6//18 22:30 87 18 115/65 (82) 97 6/3/18 22:25 87 18 134/67 (89) 97 6/3/18 22:22 90 35 140/72 (94) 96 6/18 22:20 171 19 100/63 (75) 97 6/18 22:18 173 23 98/61 (73) 98 6/3/18 22:17 173 36 99/61 (74) 98 6/3/18 22:15 174 30 100 6/3/18 22:00 170 6/3/18 22:00 170 18 122/84 (97) 96 6//18 21:45 167 18 147/93 (111) 96 6//18 21:31 160 18 109/55 (73) 98 6/3/18 21:30 156 18 97 6/3/18 21:15 104 18 119/75 (90) 96 6//18 21:00 110 19 131/76 (94) 97 18 20:45 111 20 129/78 (95) 97 18 20:30 110 18 129/76 (93) 96 18 20:15 109 19 133/82 (99) 96 09/08/17 20:00 81 09/08/17 20:00 35 09/08/17 20:00 96.5 106 19 129/77 (94) 96 09/08/17 19:45 101 21 117/73 (88) 98 09/08/17 19:38 96 35 09/08/17 19:30 97 18 102/66 (78) 96 18 19:15 94 18 108/70 (83) 97 09/08/17 19:00 95 18 106/66 (79) 96 09/08/17 18:00 87 09/08/17 16:00 99.0 113 18 120/74 (89) 95 09/08/17 16:00 113 09/08/17 16:00 35 09/08/17 15:07 94 35 09/08/17 14:00 119 09/08/17 12:15 93 35 09/08/17 12:00 99.7 109 17 142/82 (102) 94 09/08/17 12:00 109 09/08/17 12:00 35 09/08/17 11:27 94 35 09/08/17 11:26 35 09/08/17 11:21 95 35 09/08/17 10:00 100 I/O 09/08/17 09/08/17 09/08/17 09/09/17 09/09/17 09/09/17 07:00 15:00 23:00 07:00 15:00 23:00 Intake Total 987 ml 904 ml 2855 ml Output Total 1000 ml 1050 ml 700 ml Balance -13 ml -146 ml 2155 ml IV Total 327 ml 2355 ml Tube Feeding 600 ml 444 ml 300 ml Tube Irrigant 60 ml Other 60 ml 400 ml 200 ml Output Urine Total 600 ml 750 ml 300 ml Stool Total 400 ml 300 ml 400 ml Bladder Scan Volume Amount 350 ml # Bowel Movements 1 Imaging Last Impressions Liver Ultrasound 09/09/17 0000 Signed Impressions: CONCLUSION: 1. There is some thickening of the gallbladder wall at 4 mm. There is a trace of fluid adjacent to the gallbladder. This can be seen with chronic gallbladder disease. No definite gallstones or biliary tract obstruction. 2. Mild prominence of the pancreatic duct at 2 mm. 3. 9 mm right renal cyst. Chest X-Ray 09/08/17 0600 Signed Impressions: CONCLUSION: Bibasilar, right worse than left, areas of consolidation or atelectasis which a ppear worse on the current exam. Abdomen X-Ray 09/03/17 0000 Signed Impressions: CONCLUSION: Nasogastric tube in good position. Nonspecific bowel gas pattern. CT Angiography 08/13/17 0000 Signed Impressions: Service Date/Time: Sunday, August 13, 2017 07:25 - CONCLUSION: 1. No CT evidence for pulmonary embolism as questioned. 2. Moderate to severe upper lobe predominant centrilobular emphysema. 3. Patchy bibasilar groundglass opacities likely reflecting atelectasis although differential considerations include aspiration. 4. Multiple 4-6mm bilateral groundglass and solid nodules, likely infectious/inflammatory. Recommend followup CT examination in approximately 6 months per 2017 Fleischner criteria (6mm nodule). Steve Barajas MD Laboratory Test 09/08/17 11:15 09/08/17 23:00 09/09/17 04:10 Urine Color YELLOW Urine Turbidity CLEAR Urine pH 5.0 Urine Specific [place] 1.020 Urine Protein TRACE mg/dL Urine Glucose (UA) NEG mg/dL Urine Ketones NEG mg/dL Urine Occult Blood SMALL Urine Nitrite NEG Urine Bilirubin NEG Urine Urobilinogen LESS THAN 2.0 MG/DL Urine Leukocyte Esterase NEG Urine RBC 3 /hpf Urine WBC 1 /hpf Urine Squamous Epithelial Cells <1 /hpf Urine Bacteria RARE /hpf Urine Hyaline Casts 2 /lpf Urine Mucus FEW /lpf Urine Yeast (Budding) MOD Microscopic Urinalysis Comment CATH-CULTURE IND White Blood Count 5.6 TH/MM3 3.8 TH/MM3 Red Blood Count 3.21 MIL/MM3 2.91 MIL/MM3 Hemoglobin 9.8 GM/DL 8.9 GM/DL Hematocrit 31.0 % 28.0 % Mean Corpuscular Volume 96.5 FL 96.1 FL Mean Corpuscular Hemoglobin 30.5 PG 30.5 PG Mean Corpuscular Hemoglobin Concent 31.6 % 31.7 % Red Cell Distribution Width 18.2 % 18.4 % Platelet Count 77 TH/MM3 66 TH/MM3 Mean Platelet Volume 11.2 FL 11.5 FL Neutrophils (%) (Auto) 89.1 % Lymphocytes (%) (Auto) 4.2 % Monocytes (%) (Auto) 6.6 % Eosinophils (%) (Auto) 0.0 % Basophils (%) (Auto) 0.1 % Neutrophils # (Auto) 5.0 TH/MM3 Lymphocytes # (Auto) 0.2 TH/MM3 Monocytes # (Auto) 0.4 TH/MM3 Eosinophils # (Auto) 0.0 TH/MM3 Basophils # (Auto) 0.0 TH/MM3 CBC Comment AUTO DIFF Differential Total Cells Counted 100 Neutrophils % (Manual) 74 % Band Neutrophils % 14 % Lymphocytes % 5 % Monocytes % 2 % Neutrophils # (Manual) 5.2 TH/MM3 Metamyelocytes 5 % Nucleated Red Blood Cells 8 /100 WBC Differential Comment FINAL DIFF MANUAL Platelet Estimate LOW Platelet Morphology Comment NORMAL Polychromasia 3.0 % Blood Urea Nitrogen 56 MG/DL 50 MG/DL Creatinine 0.56 MG/DL 0.48 MG/DL Random Glucose 246 MG/DL 191 MG/DL Total Protein 3.9 GM/DL 3.7 GM/DL Albumin 1.3 GM/DL Calcium Level 7.1 MG/DL 7.4 MG/DL Phosphorus Level 3.9 MG/DL Magnesium Level 2.5 MG/DL Alkaline Phosphatase 733 U/L Aspartate Amino Transf (AST/SGOT) 731 U/L Alanine Aminotransferase (ALT/SGPT) 405 U/L Total Bilirubin 0.8 MG/DL Sodium Level 155 MEQ/L 154 MEQ/L Potassium Level 4.0 MEQ/L 4.2 MEQ/L Chloride Level 120 MEQ/L 120 MEQ/L Carbon Dioxide Level 25.5 MEQ/L 24.9 MEQ/L Anion Gap 10 MEQ/L 9 MEQ/L Estimat Glomerular Filtration Rate 146 ML/MIN 175 ML/MIN Protein Corrected Calcium 8.9 MG/DL 9.5 MG/DL Activated Partial Thromboplast Time 21.7 SEC Date/Time Source Procedure Growth Status 09/08/17 11:40 Blood Peripheral Aerobic Blood Culture Pending Received 09/08/17 11:40 Blood Peripheral Anaerobic Blood Culture Pending Received 08/21/17 19:30 Stool Stool Stool Occult Blood (JABIER) - Final HEMOCCULT POSITIVE Complete 09/08/17 11:15 Sputum Endotracheal Gram Stain - Final Resulted 09/08/17 11:15 Sputum Endotracheal Sputum Culture Pending Resulted 09/08/17 11:15 Urine Catheterized Urine Urine Culture Pending Received Physical Examination HEENT: Normocephalic; atraumatic CHEST: Respirations synchronized with vent via ETT CARDIAC: RRR ABDOMEN: Round soft, bowel sounds active EXTREMITIES: Generalized edema, L BKA 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 Currently with OG. Family has opted for aggressive care including PEG and tracheostomy- planning for tracheostomy tomorrow. *Service previously consulted for possible melena, pt was too unstable for endoscopic procedures at that time so we signed off. Addendum: Pt had a run of SVT this morning and is currently on high amount of FiO2, unstable for PEG placement, will follow Plan: EGD with PEG placement when stable Obtain consent Ancef environmental engineering aide [employer] following- appreciate recommendations Further recommendations based on findings of above and clinical course Pt has been seen and examined by myself and Dr. Galindo and this note is written on his behalf (Michelle Chung) Physician Comments Reconsult for PEG tube. Events of this morning noted, stable at the current time. Will reassess the condition in AM. (Handy Galindo MD) Michelle Chung Sep 09, 2017 09:43 Handy Galindo MD Sep 09, 2017 16:28
[2017-09-09] MEDS ORDERED: FREE WATER G-TUBE SCH (09:45)
[2017-09-09] MEDS: methylPREDNISolone SOD SUCC 40 MG/1 ML VIAL IV PUSH SCH ×2 (09:45→20:05)
--- NOTE | 2017-09-09 10:35 | HHI.CCPN ---
Subjective Remarks/Hospital Course 66-year-old male who was brought to the ER after he developed shortness of breath and altered mental status. At snf he was placed on nasal cannula 2 L because of his history of COPD as he uses it off and on. EMS was called when patient developed agonal respirations with O2 sats in the low 80s on their arrival with pink frothy sputum. Patient was intubated in the field after receiving etomidate and Versed. His systolic blood pressure was 190s following intubation and dropped to the 60 systolic range and he was started on dopamine in the field by EMS. He was brought to the ER at [facility] and noted to have elevated troponin on his admitting labs. He was accepted for admission by critical care medicine service. He underwent a CT chest to evaluate for PE which was negative for PE however did show severe emphysematous changes with groundglass opacities. History is significantly limited by the fact that he is intubated. When I evaluated the patient he was sedated, orally intubated on mechanical ventilation. History was obtained by reviewing records. SUBJ 08/14/17: Remains intubated sedated, a CPAP was attempted but patient failed almost immediately with severe tachypnea. Continues to have bilateral expiratory wheezing and diminished air entry. Initial troponin was 3.18 now down trending 08/15/17: Patient remains intubated sedated with Versed and fentanyl. On sedation hold wakes up easily follows commands. On attempted CPAP patient became tachypneic with labored breathing using accessory muscles. Not ready for extubation. Pseudomonas growing in sputum. Increase Azactam to 2 g IV every 8 hours 08/16/17: Tolerating CPAP trials better today. Sputum culture growing Pseudomonas pansensitive. Will attempt to extubate with BiPAP use if needed 08/17/17: Reintubated yesterday evening following severe respiratory distress and severe wheezing. Currently remains sedated on vent support. Persistent wheezing. 08/18: Remains intubated sedated. Will initiate CPAP trials again. Patient has severe emphysema and will be difficult to wean to extubate. Wheezing persists. 08/19: Remains sedated, orally intubated on mechanical ventilation. Significant bloody respiratory secretions being suctioned from ET tube. On heparin for anticoagulation. Will hold Coumadin. 08/20: Sedated, arousable, orally intubated on mechanical ventilation. Failing CPAP trials. Heparin held yesterday due to increasing bloody respiratory secretions. 08/21: Remains sedated wakes up easily. Failed CPAP trial immediately today due to tachypnea and respiratory distress. No significant bloody secretions. Chest x-ray was clear. I discussed briefly with daughter. Poly Salcedo about possibility of trach. She needs more time to decide and needs time to discuss with family. I have consulted palliative care to address goals of care. Vent day 9 today. With his some advanced emphysema it will be difficult to wean him off the ventilator without tracheostomy 08/22: Patient is more critical becoming more septic. White count yesterday was 27.5. Today he spiked fever 101.3, tachycardic heart rate in 120s borderline hypotensive.. Chest x-ray shows developing left base infiltrate. Will continue cefepime panculture ordered. Vancomycin 1.25 g 1 and pharmacy to dose. Normal saline bolus 2 L ordered. 08/23: T-max 100.0. Hemoglobin downtrending now 7.2. Patient continues to be borderline hypotensive, monitor Hgb. Patient was tentatively scheduled for percutaneous tracheostomy this a.m. however unable to obtain consent from family members. Sodium level starting to downtrend with addition of free water flushes. 08/24: Hemodynamically stable throughout the night. Transfusion 1 unit of packed cells placed on hold with cancellation percutaneous tracheostomy due to lack of consent. H&H pending this afternoon, will transfuse for hemoglobin less than 7. Patient awake continuing on CPAP for greater than 4 hours today. 08/25: more awake. passed SBT. discussion with family and patient: he would want to be re-intubated and pursue tracheostomy if he fails again. 08/26: remained extubated. denies complaints. high risk for reintubation. wants aggressive care and tracheostomy if re-intubated. 09/01: Critical care reconsulted for worsening respiratory status. Patient was transferred to the ICU from the floor due to increasing O2 requirement and placed on a nonrebreather facemask. He was reportedly tachypneic using accessory muscles of respiration. There was some concern regarding aspiration. I evaluated the patient following his arrival to the ICU. He was breathing in the 30s using accessory muscles of respiration on a nonrebreather facemask. He is awake however not really able to give me details of history due to respiratory distress. Patient will be placed on BiPAP and Precedex in order to avoid intubation. He does have significantly advanced COPD and recently completed a course of antibiotics. Will restart empiric antibiotics with Zyvox/ Levaquin/Flagyl IV. 09/02: Patient was intubated yesterday(09/01) for worsening respiratory distress despite BiPAP and placed on mechanical ventilation. Remains sedated, orally intubated on mechanical ventilation. On Levophed for pressor support. Hemoglobin 7.5 this morning. 2 units PRBCs ordered to be transfused. Borderline elevated troponin noted. 09/03: Remains sedated, orally intubated on mechanical ventilation. Off levophed. 2 units PRBCs transfused yesterday 09/04: Sedated, arousable, orally intubated on mechanical ventilation. Tolerating tube feeds. Failed CPAP trials. 09/05: Remains sedated, orally intubated on mechanical ventilation. Tolerating tube feeds. Failing CPAP trials. 09/06: Sedated, arousable, orally intubated on mechanical ventilation. Failed CPAP trials. 09/07: Sedated, arousable, orally intubated on mechanical ventilation. Failing CPAP trials. Will need tracheostomy and PEG tube placement as family desires aggressive care. Palliative care and discussions with family. 09/08: no improvements at all. febrile again today. juarez-cultured. central line removed and replaced. long discussion with daughter: needs trach/PEG, LTAC. 09/09 Patient went into SVT HR 170-180's overnight given Lopressor, adenosine and placed on Esmolol drip. Also received1 L NS for decrease UOP. On Vasopressin 0.04. Objective Vital Signs Date Time Temp Pulse Resp B/P (MAP) Pulse Ox O2 Delivery O2 Flow Rate FiO2 09/09/17 07:25 114 09/09/17 06:40 106/65 09/09/17 04:22 99 35 09/09/17 04:11 18 09/09/17 00:00 97.0 Intake and Output 09/09/17 09/09/17 09/10/17 08:00 16:00 00:00 Intake Total 1735 ml Output Total 700 ml Balance 1035 ml Result Diagram: 09/09/17 0410 09/09/17 0410 Other Results Laboratory Tests Test 09/08/17 11:15 09/08/17 23:00 09/09/17 04:10 Urine Color YELLOW Urine Turbidity CLEAR Urine pH 5.0 Urine Specific [place] 1.020 Urine Protein TRACE mg/dL Urine Glucose (UA) NEG mg/dL Urine Ketones NEG mg/dL Urine Occult Blood SMALL Urine Nitrite NEG Urine Bilirubin NEG Urine Urobilinogen LESS THAN 2.0 MG/DL Urine Leukocyte Esterase NEG Urine RBC 3 /hpf Urine WBC 1 /hpf Urine Squamous Epithelial Cells <1 /hpf Urine Bacteria RARE /hpf Urine Hyaline Casts 2 /lpf Urine Mucus FEW /lpf Urine Yeast (Budding) MOD Microscopic Urinalysis Comment CATH-CULTURE IND White Blood Count 5.6 TH/MM3 3.8 TH/MM3 Red Blood Count 3.21 MIL/MM3 2.91 MIL/MM3 Hemoglobin 9.8 GM/DL 8.9 GM/DL Hematocrit 31.0 % 28.0 % Mean Corpuscular Volume 96.5 FL 96.1 FL Mean Corpuscular Hemoglobin 30.5 PG 30.5 PG Mean Corpuscular Hemoglobin Concent 31.6 % 31.7 % Red Cell Distribution Width 18.2 % 18.4 % Platelet Count 77 TH/MM3 66 TH/MM3 Mean Platelet Volume 11.2 FL 11.5 FL Neutrophils (%) (Auto) 89.1 % Lymphocytes (%) (Auto) 4.2 % Monocytes (%) (Auto) 6.6 % Eosinophils (%) (Auto) 0.0 % Basophils (%) (Auto) 0.1 % Neutrophils # (Auto) 5.0 TH/MM3 Lymphocytes # (Auto) 0.2 TH/MM3 Monocytes # (Auto) 0.4 TH/MM3 Eosinophils # (Auto) 0.0 TH/MM3 Basophils # (Auto) 0.0 TH/MM3 CBC Comment AUTO DIFF Differential Total Cells Counted 100 Neutrophils % (Manual) 74 % Band Neutrophils % 14 % Lymphocytes % 5 % Monocytes % 2 % Neutrophils # (Manual) 5.2 TH/MM3 Metamyelocytes 5 % Nucleated Red Blood Cells 8 /100 WBC Differential Comment FINAL DIFF MANUAL Platelet Estimate LOW Platelet Morphology Comment NORMAL Polychromasia 3.0 % Blood Urea Nitrogen 56 MG/DL 50 MG/DL Creatinine 0.56 MG/DL 0.48 MG/DL Random Glucose 246 MG/DL 191 MG/DL Total Protein 3.9 GM/DL 3.7 GM/DL Albumin 1.3 GM/DL Calcium Level 7.1 MG/DL 7.4 MG/DL Phosphorus Level 3.9 MG/DL Magnesium Level 2.5 MG/DL Alkaline Phosphatase 733 U/L Aspartate Amino Transf (AST/SGOT) 731 U/L Alanine Aminotransferase (ALT/SGPT) 405 U/L Total Bilirubin 0.8 MG/DL Sodium Level 155 MEQ/L 154 MEQ/L Potassium Level 4.0 MEQ/L 4.2 MEQ/L Chloride Level 120 MEQ/L 120 MEQ/L Carbon Dioxide Level 25.5 MEQ/L 24.9 MEQ/L Anion Gap 10 MEQ/L 9 MEQ/L Estimat Glomerular Filtration Rate 146 ML/MIN 175 ML/MIN Protein Corrected Calcium 8.9 MG/DL 9.5 MG/DL Activated Partial Thromboplast Time 21.7 SEC Imaging Last Impressions Liver Ultrasound 09/09/17 0000 Signed Impressions: CONCLUSION: 1. There is some thickening of the gallbladder wall at 4 mm. There is a trace of fluid adjacent to the gallbladder. This can be seen with chronic gallbladder disease. No definite gallstones or biliary tract obstruction. 2. Mild prominence of the pancreatic duct at 2 mm. 3. 9 mm right renal cyst. Chest X-Ray 09/08/17 0600 Signed Impressions: CONCLUSION: Bibasilar, right worse than left, areas of consolidation or atelectasis which a ppear worse on the current exam. Abdomen X-Ray 09/03/17 0000 Signed Impressions: CONCLUSION: Nasogastric tube in good position. Nonspecific bowel gas pattern. CT Angiography 08/13/17 Signed Impressions: Service Date/Time: Sunday, August 13, 2017 07:25 - CONCLUSION: 1. No CT evidence for pulmonary embolism as questioned. 2. Moderate to severe upper lobe predominant centrilobular emphysema. 3. Patchy bibasilar groundglass opacities likely reflecting atelectasis although differential considerations include aspiration. 4. Multiple 4-6mm bilateral groundglass and solid nodules, likely infectious/inflammatory. Recommend followup CT examination in approximately 6 months per 2017 Fleischner criteria (6mm nodule). Steve Barajas MD Objective Remarks GENERAL: Patient is 66 yo intubated SKIN: Warm and dry. HEAD: Normocephalic. EYES: No scleral icterus. No injection or drainage. NECK: Supple, trachea midline. No JVD or lymphadenopathy. CARDIOVASCULAR: Regular rate and rhythm without murmurs, gallops, or rubs. RESPIRATORY: Breath sounds equal bilaterally. No accessory muscle use. GASTROINTESTINAL: Abdomen soft, non-tender, nondistended. MUSCULOSKELETAL: No cyanosis, or edema. Neuro: Intubated A/P Assessment and Plan Assessment: Acute on chronic hypoxic and hypercarbic respiratory failure Acute metabolic encephalopathy Severe sepsis Acute COPD exacerbation NSTEMI Pseudomonas pneumonia Suspected aspiration SVT MRSA Ventilator associated pneumonia Advanced COPD/emphysema Anemia CAD History of cardiomyopathy Diabetes Hyperlipidemia Hypertension Paroxysmal atrial fibrillation. Peripheral vascular disease Plan: Neuro: - Patient was on Precedex drip 0.2 overnight now off sedation. Monitor neuro status. CV: SVT- s/p Lopressor and Adenosine Monitor HR and BP keep MAP>65mmHg Echo showed EF 50-55% On Midodrine 10mg Q8, change Lopressor 25mg Q12, Imdur 60mg daily -Holding heparin and Coumadin since 08/19 in view of hemoptysis currently. Continue Lovenox 40 mg sq daily -Continue aspirin. Cardiology Dr. Gary. -Dr. Gary recommends nuclear stress test when able to tolerate. Pulmonary: -Continue with vent support keep sats >92%- Intubated 09/01 Bronchodilators, ICU vent bundle, Taper steroids- Decrease solumederol 40mg Q12 -CT of the chest showed severe emphysema and pneumonia -trach placed on hold as patient had SVT overnight will reschedule for tomorrow. Discussed with Dr. Shearer GI/liver: Elevated LFT's Monitor LFT's, US liver: There is some thickening of the gallbladder wall at 4 mm. There is a trace of fluid adjacent to the gallbladder. This can be seen with chronic gallbladder disease. No definite gallstones or biliary tract obstruction. Mild prominence of the pancreatic duct at 2 mm. 9 mm right renal cyst. Hepatitis profile -non reactive -NPO after midnight for possible trach tomorrow. - PEG consult placed. Renal/: Hypernatremia -Monitor renal function , I/O's, electrolytes replacement as needed -Continue IVF-1/2NS@75ml/hr, free water 250ml Q12 monitor sodium level. ID: -Off abx monitor for signs of infections ( Fever, WBC) follow up on cxs from 09/08 Endocrine: -On SSI for glycemic control Heme: Anemia Thrombocytopenia -Monitor CBC and coags. Check Fibrinogen level, check Hep PLT ab r/o HIT Prophylaxis: -Pepcid/SCDs. Lovenox on hold level 3 Jemima Brennan MD Sep 09, 2017 10:35
[2017-09-09 11:57] LABS: AUTOMATED NEUTROPHIL # 5.2 TH/MM3 (1.8-7.7); BASOPHIL % 0.1 % (0.0-2.0); EOSINOPHIL % 0.1 % (0.0-4.0); HEMATOCRIT 29.4 % (39.0-51.0); HEMOGLOBIN 9.5 GM/DL (13.0-17.0); LYMPH % 6.5 % (9.0-44.0); LYMPHOCYTE # 0.4 TH/MM3 (1.0-4.8); MEAN CELL VOLUME 95.7 FL (80.0-100.0); MEAN CORPUSCULAR HGB CONC 32.4 % (32.0-36.0); MEAN PLATELET VOLUME 11.4 FL (7.0-11.0); MONO % 6.2 % (0.0-8.0); MONOCYTE # 0.4 TH/MM3 (0-0.9); NEUT % 87.1 % (16.0-70.0); PLATELET COUNT 68 TH/MM3 (150-450); RED BLOOD COUNT 3.07 MIL/MM3 (4.50-5.90); RED CELL DISTRIBUTION WIDTH 18.2 % (11.6-17.2)
[2017-09-09 12:13] LABS: ALBUMIN 1.5 GM/DL (3.4-5.0); AST (GOT) 260 U/L (15-37); BICARBONATE 23.4 MEQ/L (21.0-32.0); BLOOD UREA NITROGEN 49 MG/DL (7-18); CALCIUM 7.6 MG/DL (8.5-10.1); CHLORIDE 116 MEQ/L (98-107); CREATININE 0.48 MG/DL (0.60-1.30); GLOMERULAR FILTRATION RATE 175 ML/MIN (>89); GLUCOSE,RANDOM 139 MG/DL (74-106); INTERNATIONAL NORMALIZED RATIO 1.2 RATIO; PROTHROMBIN TIME - PATIENT 11.8 SEC (9.8-11.6); SODIUM (NA) 151 MEQ/L (136-145)
[2017-09-09 12:14] LABS: ALT (GPT) 335 U/L (12-78)
[2017-09-09 12:16] LABS: ALKALINE PHOSPHATASE 662 U/L (45-117); TOTAL BILIRUBIN ADULT 0.5 MG/DL (0.2-1.0)
[2017-09-09 12:50] LABS: BANDS 32 % (0-6); BLASTS 1 % (0-0); CORRECTED NUCLEATED RBC 2 /100 WBC (0-0); LYMPHOCYTES 1 % (9-44); MONOCYTES 4 % (0-8); NEUTROPHIL # MANUAL DIFF 5.6 TH/MM3 (1.8-7.7); NUCLEATED RED BLOOD CELL 2 (0-0); POLYS (SEG NEUTROPHILS) 62 % (16-70)
[2017-09-09 12:51] LABS: POLYCHROMASIA 2.8 % (0.0-1.9)
[2017-09-09] MEDS: METOPROLOL TARTRATE 25 MG TAB PO SCH (20:05)
[2017-09-10] VITALS (67 sets, daily range): BP systolic 76–158; BP diastolic 50–84; PULSE 92–190; RESP 16–45; TEMP 98.1–100.3; O2SAT 92–100
[2017-09-10] MEDS: INSULIN ASPART SUPPLEMENTAL SCALE SQ SCH ×7 (00:21→23:38)
[2017-09-10] MEDS: CHLORHEXIDINE GLUCONATE 2 % 1 PACK (2 CLOTHS) TOP SCH (00:21)
[2017-09-10] MEDS: SODIUM CHLOR 0.45% 1000 ML INJ 1,000 ML IV SCH ×2 (02:44→11:12)
[2017-09-10] MEDS: METOPROLOL TARTRATE 5 MG/5 ML VIAL IV PUSH PRN (04:34)
[2017-09-10 04:36] LABS: AUTOMATED NEUTROPHIL # 5.4 TH/MM3 (1.8-7.7); BASOPHIL % 0.1 % (0.0-2.0); EOSINOPHIL % 0.1 % (0.0-4.0); HEMATOCRIT 33.8 % (39.0-51.0); HEMOGLOBIN 10.9 GM/DL (13.0-17.0); LYMPH % 2.4 % (9.0-44.0); LYMPHOCYTE # 0.1 TH/MM3 (1.0-4.8); MEAN CELL VOLUME 96.1 FL (80.0-100.0); MEAN CORPUSCULAR HEMOGLOBIN 30.9 PG (27.0-34.0); MEAN CORPUSCULAR HGB CONC 32.1 % (32.0-36.0); MEAN PLATELET VOLUME 11.9 FL (7.0-11.0); MONO % 4.2 % (0.0-8.0); MONOCYTE # 0.2 TH/MM3 (0-0.9); NEUT % 93.2 % (16.0-70.0); PLATELET COUNT 92 TH/MM3 (150-450); RED BLOOD COUNT 3.51 MIL/MM3 (4.50-5.90); WHITE BLOOD COUNT 5.8 TH/MM3 (4.0-11.0)
[2017-09-10 05:17] LABS: ALBUMIN 1.5 GM/DL (3.4-5.0); ALKALINE PHOSPHATASE 1213 U/L (45-117); ALT (GPT) 774 U/L (12-78); AST (GOT) 868 U/L (15-37); BICARBONATE 21.4 MEQ/L (21.0-32.0); BLOOD UREA NITROGEN 51 MG/DL (7-18); CALCIUM 7.9 MG/DL (8.5-10.1); CHLORIDE 114 MEQ/L (98-107); CREATININE 0.58 MG/DL (0.60-1.30); GLOMERULAR FILTRATION RATE 141 ML/MIN (>89); GLUCOSE,RANDOM 216 MG/DL (74-106); SODIUM (NA) 147 MEQ/L (136-145); TOTAL BILIRUBIN ADULT 0.6 MG/DL (0.2-1.0); TOTAL PROTEIN 4.6 GM/DL (6.4-8.2)
[2017-09-10] MEDS: PANTOPRAZOLE SODIUM 40 MG VIAL IV PUSH SCH ×2 (05:34→17:45)
[2017-09-10] MEDS: MIDODRINE 5 MG TAB PO SCH ×3 (05:34→21:50)
[2017-09-10] MEDS: oxyCODONE HCL ORAL CONC 5 MG/0.25 ML SYRINGE PO PRN (05:34)
[2017-09-10] MEDS: ISOSORBIDE MONONITRATE 60 MG CR TAB (IMDUR) PO SCH (06:34)
[2017-09-10 07:03] LABS: BANDS 31 % (0-6); CORRECTED NUCLEATED RBC 7 /100 WBC (0-0); LYMPHOCYTES 5 % (9-44); METAMYELOCYTES 7 % (0-1); MONOCYTES 3 % (0-8); NEUTROPHIL # MANUAL DIFF 5.3 TH/MM3 (1.8-7.7); NUCLEATED RED BLOOD CELL 7 (0-0); POLYS (SEG NEUTROPHILS) 54 % (16-70)
[2017-09-10] MEDS: methylPREDNISolone SOD SUCC 40 MG/1 ML VIAL IV PUSH SCH ×2 (07:29→20:05)
[2017-09-10] MEDS: FAMOTIDINE 20 MG TAB TUBE SCH ×2 (07:33→20:05)
[2017-09-10] MEDS: ASPIRIN 81 MG CHEW TAB CHEW SCH (07:33)
[2017-09-10] MEDS: RESP: BUDESONIDE 0.5 MG/2 ML NEB NEB SCH ×2 (08:10→19:20)
[2017-09-10] MEDS: VASOPRESSIN INJ 40 UNITS in DEXTROSE 5% IN WATER 100ML INJ 98 ML IV SCH ×2 (08:20)
[2017-09-10] MEDS: METOPROLOL TARTRATE 25 MG TAB PO SCH ×2 (08:25→20:05)
[2017-09-10] MEDS: CHLORHEXIDINE 0.12% (ORAL KIT) 15 ML CUP MT SCH ×2 (08:25→20:06)
[2017-09-10] MEDS: FREE WATER G-TUBE SCH ×2 (08:25→20:06)
[2017-09-10] MEDS: SODIUM CHLORIDE 0.9% FLUSH 10 ML FLUSH IV FLUSH SCH ×3 (08:26→20:06)
[2017-09-10] MEDS ORDERED: FUROSEMIDE 20 MG/2 ML VIAL IV PUSH SCH (09:00)
[2017-09-10] MEDS ORDERED: SODIUM CHLORID 0.9% 500 ML INJ 500 ML IV ONE (11:00)
[2017-09-10] MEDS ORDERED: MIDAZOLAM HCL 5 MG/5 ML VIAL IV PUSH ONE (11:45)
[2017-09-10] MEDS ORDERED: VECURONIUM BROMIDE 10 MG VIAL IV PUSH ONE (11:45)
[2017-09-10] MEDS ORDERED: fentaNYL DRIP 250 ML IV PRN (11:45)
--- NOTE | 2017-09-10 11:46 | HHI.CCPN ---
Subjective Remarks/Hospital Course 66-year-old male who was brought to the ER after he developed shortness of breath and altered mental status. At [facility] he was placed on nasal cannula 2 L because of his history of COPD as he uses it off and on. EMS was called when patient developed agonal respirations with O2 sats in the low 80s on their arrival with pink frothy sputum. Patient was intubated in the field after receiving etomidate and Versed. His systolic blood pressure was 190s following intubation and dropped to the 60 systolic range and he was started on dopamine in the field by EMS. He was brought to the ER at [place] and noted to have elevated troponin on his admitting labs. He was accepted for admission by critical care medicine service. He underwent a CT chest to evaluate for PE which was negative for PE however did show severe emphysematous changes with groundglass opacities. History is significantly limited by the fact that he is intubated. When I evaluated the patient he was sedated, orally intubated on mechanical ventilation. History was obtained by reviewing records. SUBJ 08/14/17: Remains intubated sedated, a CPAP was attempted but patient failed almost immediately with severe tachypnea. Continues to have bilateral expiratory wheezing and diminished air entry. Initial troponin was 3.18 now down trending 08/15/17: Patient remains intubated sedated with Versed and fentanyl. On sedation hold wakes up easily follows commands. On attempted CPAP patient became tachypneic with labored breathing using accessory muscles. Not ready for extubation. Pseudomonas growing in sputum. Increase Azactam to 2 g IV every 8 hours 08/16/17: Tolerating CPAP trials better today. Sputum culture growing Pseudomonas pansensitive. Will attempt to extubate with BiPAP use if needed 08/17/17: Reintubated yesterday evening following severe respiratory distress and severe wheezing. Currently remains sedated on vent support. Persistent wheezing. 08/18: Remains intubated sedated. Will initiate CPAP trials again. Patient has severe emphysema and will be difficult to wean to extubate. Wheezing persists. 08/19: Remains sedated, orally intubated on mechanical ventilation. Significant bloody respiratory secretions being suctioned from ET tube. On heparin for anticoagulation. Will hold Coumadin. 08/20: Sedated, arousable, orally intubated on mechanical ventilation. Failing CPAP trials. Heparin held yesterday due to increasing bloody respiratory secretions. 08/21: Remains sedated wakes up easily. Failed CPAP trial immediately today due to tachypnea and respiratory distress. No significant bloody secretions. Chest x-ray was clear. I discussed briefly with daughter. Poly Salcedo about possibility of trach. She needs more time to decide and needs time to discuss with family. I have consulted palliative care to address goals of care. Vent day 9 today. With his some advanced emphysema it will be difficult to wean him off the ventilator without tracheostomy 08/22: Patient is more critical becoming more septic. White count yesterday was 27.5. Today he spiked fever 101.3, tachycardic heart rate in 120s borderline hypotensive.. Chest x-ray shows developing left base infiltrate. Will continue cefepime panculture ordered. Vancomycin 1.25 g 1 and pharmacy to dose. Normal saline bolus 2 L ordered. 08/23: T-max 100.0. Hemoglobin downtrending now 7.2. Patient continues to be borderline hypotensive, monitor Hgb. Patient was tentatively scheduled for percutaneous tracheostomy this a.m. however unable to obtain consent from family members. Sodium level starting to downtrend with addition of free water flushes. 08/24: Hemodynamically stable throughout the night. Transfusion 1 unit of packed cells placed on hold with cancellation percutaneous tracheostomy due to lack of consent. H&H pending this afternoon, will transfuse for hemoglobin less than 7. Patient awake continuing on CPAP for greater than 4 hours today. 08/25: more awake. passed SBT. discussion with family and patient: he would want to be re-intubated and pursue tracheostomy if he fails again. 08/26: remained extubated. denies complaints. high risk for reintubation. wants aggressive care and tracheostomy if re-intubated. 09/01: Critical care reconsulted for worsening respiratory status. Patient was transferred to the ICU from the floor due to increasing O2 requirement and placed on a nonrebreather facemask. He was reportedly tachypneic using accessory muscles of respiration. There was some concern regarding aspiration. I evaluated the patient following his arrival to the ICU. He was breathing in the 30s using accessory muscles of respiration on a nonrebreather facemask. He is awake however not really able to give me details of history due to respiratory distress. Patient will be placed on BiPAP and Precedex in order to avoid intubation. He does have significantly advanced COPD and recently completed a course of antibiotics. Will restart empiric antibiotics with Zyvox/ Levaquin/Flagyl IV. 09/02: Patient was intubated yesterday(09/01) for worsening respiratory distress despite BiPAP and placed on mechanical ventilation. Remains sedated, orally intubated on mechanical ventilation. On Levophed for pressor support. Hemoglobin 7.5 this morning. 2 units PRBCs ordered to be transfused. Borderline elevated troponin noted. 09/03: Remains sedated, orally intubated on mechanical ventilation. Off levophed. 2 units PRBCs transfused yesterday 09/04: Sedated, arousable, orally intubated on mechanical ventilation. Tolerating tube feeds. Failed CPAP trials. 09/05: Remains sedated, orally intubated on mechanical ventilation. Tolerating tube feeds. Failing CPAP trials. 09/06: Sedated, arousable, orally intubated on mechanical ventilation. Failed CPAP trials. 09/07: Sedated, arousable, orally intubated on mechanical ventilation. Failing CPAP trials. Will need tracheostomy and PEG tube placement as family desires aggressive care. Palliative care and discussions with family. 09/08: no improvements at all. febrile again today. juarez-cultured. central line removed and replaced. long discussion with daughter: needs trach/PEG, LTAC. 09/09 Patient went into SVT HR 170-180's overnight given Lopressor, adenosine and placed on Esmolol drip. Also received1 L NS for decrease UOP. On Vasopressin 0.04. 09/10 Patient remains intubated no recurrent SVT. T:100.3 this morning, off vasopressin and esmolol drip. For trach and PEG tube placements today. Objective Vital Signs Date Time Temp Pulse Resp B/P (MAP) Pulse Ox O2 Delivery O2 Flow Rate FiO2 09/10/17 10:01 113 09/10/17 08:20 99/63 09/10/17 08:11 96 35 09/10/17 08:00 100.3 19 Intake and Output 09/10/17 09/10/17 09/11/17 08:00 16:00 00:00 Intake Total 1550 ml Output Total 630 ml Balance 920 ml Result Diagram: 09/10/17 0330 09/10/17 0330 Other Results Laboratory Tests Test 09/09/17 13:40 09/10/17 03:30 Blood Gas Puncture Site RT RADIAL Blood Gas Patient Temperature 98.6 Blood Gas HCO3 23 mmol/L Blood Gas Base Excess 0.0 mmol/L Blood Gas Oxygen Saturation 91 % Arterial Blood pH 7.47 Arterial Blood Partial Pressure CO2 32 mmHg Arterial Blood Partial Pressure O2 70 mmHg Arterial Blood Oxygen Content 12.8 Vol % Arterial Blood Carboxyhemoglobin 1.4 % Arterial Blood Methemoglobin 1.2 % Blood Gas Hemoglobin 9.9 G/DL Oxygen Delivery Device VENTILATOR Blood Gas Ventilator Setting Blood Gas Inspired Oxygen 35 % White Blood Count 5.8 TH/MM3 Red Blood Count 3.51 MIL/MM3 Hemoglobin 10.9 GM/DL Hematocrit 33.8 % Mean Corpuscular Volume 96.1 FL Mean Corpuscular Hemoglobin 30.9 PG Mean Corpuscular Hemoglobin Concent 32.1 % Red Cell Distribution Width 19.0 % Platelet Count 92 TH/MM3 Mean Platelet Volume 11.9 FL Neutrophils (%) (Auto) 93.2 % Lymphocytes (%) (Auto) 2.4 % Monocytes (%) (Auto) 4.2 % Eosinophils (%) (Auto) 0.1 % Basophils (%) (Auto) 0.1 % Neutrophils # (Auto) 5.4 TH/MM3 Lymphocytes # (Auto) 0.1 TH/MM3 Monocytes # (Auto) 0.2 TH/MM3 Eosinophils # (Auto) 0.0 TH/MM3 Basophils # (Auto) 0.0 TH/MM3 CBC Comment AUTO DIFF Differential Total Cells Counted 100 Neutrophils % (Manual) 54 % Band Neutrophils % 31 % Lymphocytes % 5 % Monocytes % 3 % Neutrophils # (Manual) 5.3 TH/MM3 Metamyelocytes 7 % Nucleated Red Blood Cells 7 /100 WBC Differential Comment FINAL DIFF MANUAL Atypical Lymphocytes % Platelet Estimate LOW Platelet Morphology Comment ENLARGED Polychromasia 3.0 % Activated Partial Thromboplast Time 21.6 SEC Blood Urea Nitrogen 51 MG/DL Creatinine 0.58 MG/DL Random Glucose 216 MG/DL Total Protein 4.6 GM/DL Albumin 1.5 GM/DL Calcium Level 7.9 MG/DL Alkaline Phosphatase 1213 U/L Aspartate Amino Transf (AST/SGOT) 868 U/L Alanine Aminotransferase (ALT/SGPT) 774 U/L Total Bilirubin 0.6 MG/DL Sodium Level 147 MEQ/L Potassium Level 3.9 MEQ/L Chloride Level 114 MEQ/L Carbon Dioxide Level 21.4 MEQ/L Anion Gap 12 MEQ/L Estimat Glomerular Filtration Rate 141 ML/MIN Imaging Last Impressions Liver Ultrasound 09/09/17 0000 Signed Impressions: CONCLUSION: 1. There is some thickening of the gallbladder wall at 4 mm. There is a trace of fluid adjacent to the gallbladder. This can be seen with chronic gallbladder disease. No definite gallstones or biliary tract obstruction. 2. Mild prominence of the pancreatic duct at 2 mm. 3. 9 mm right renal cyst. Chest X-Ray 09/08/17 0600 Signed Impressions: CONCLUSION: Bibasilar, right worse than left, areas of consolidation or atelectasis which a ppear worse on the current exam. Abdomen X-Ray 09/03/17 Signed Impressions: CONCLUSION: Nasogastric tube in good position. Nonspecific bowel gas pattern. CT Angiography 08/13/17 Signed Impressions: Service Date/Time: Sunday, August 13, 2017 07:25 - CONCLUSION: 1. No CT evidence for pulmonary embolism as questioned. 2. Moderate to severe upper lobe predominant centrilobular emphysema. 3. Patchy bibasilar groundglass opacities likely reflecting atelectasis although differential considerations include aspiration. 4. Multiple 4-6mm bilateral groundglass and solid nodules, likely infectious/inflammatory. Recommend followup CT examination in approximately 6 months per 2017 Fleischner criteria (6mm nodule). Steve Barajas MD Objective Remarks GENERAL: Patient is 66 yo intubated SKIN: Warm and dry. HEAD: Normocephalic. EYES: No scleral icterus. No injection or drainage. NECK: Supple, trachea midline. No JVD or lymphadenopathy. CARDIOVASCULAR: Regular rate and rhythm without murmurs, gallops, or rubs. RESPIRATORY: Breath sounds equal bilaterally. No accessory muscle use. GASTROINTESTINAL: Abdomen soft, non-tender, nondistended. MUSCULOSKELETAL: No cyanosis, or edema. Neuro: Intubated A/P Assessment and Plan Assessment: Acute on chronic hypoxic and hypercarbic respiratory failure Acute metabolic encephalopathy Severe sepsis Acute COPD exacerbation NSTEMI Pseudomonas pneumonia Suspected aspiration SVT MRSA Ventilator associated pneumonia Advanced COPD/emphysema Anemia CAD History of cardiomyopathy Diabetes Hyperlipidemia Hypertension Paroxysmal atrial fibrillation. Peripheral vascular disease Plan: Neuro: - Monitor neuro status. CV: SVT- s/p Lopressor and Adenosine Monitor HR and BP keep MAP>65mmHg Echo showed EF 50-55% On Midodrine 10mg Q8, Lopressor 25mg Q12, hold Imdur 60mg daily -Holding heparin and Coumadin since 08/19 in view of hemoptysis currently. Continue Lovenox 40 mg sq daily -Continue aspirin. Cardiology Dr. Gary. -Dr. Gary recommends nuclear stress test when stable Pulmonary: -Continue with vent support keep sats >92%- Intubated 09/01 Bronchodilators, ICU vent bundle, Taper steroids- solumederol 40mg Q12 -CT of the chest showed severe emphysema and pneumonia -For trach today GI/liver: Elevated LFT's Monitor LFT's, US liver: There is some thickening of the gallbladder wall at 4 mm. There is a trace of fluid adjacent to the gallbladder. This can be seen with chronic gallbladder disease. No definite gallstones or biliary tract obstruction. Mild prominence of the pancreatic duct at 2 mm. 9 mm right renal cyst. Hepatitis profile -non reactive -NPO for trach and PEG tube placement today Renal/: Hypernatremia -Monitor renal function , I/O's, electrolytes replacement as needed -free water 250ml Q12 monitor sodium level. - d/c IVF, change Lasix 40mg BID ID: Fungemia UTI- Yudi species -Place on Micafungin, reconsult ID. Check BC x sets today. -Consult Ophtha r/o endophthalmitis Endocrine: -On SSI for glycemic control Heme: Anemia Thrombocytopenia -Monitor CBC and coags. Follow up on Hep PLT ab r/o HIT Prophylaxis: -Pepcid/SCDs. Lovenox on hold Lines: Left IJ CVP placed on 09/08. CCT 30 mins Jemima Brennan MD Sep 10, 2017 11:46
[2017-09-10] MEDS ORDERED: RASS Change Order XX ONE (12:00)
[2017-09-10] MEDS: MICAFUNGIN INJ 150 MG in SODIUM CHLORIDE 0.9% INJ 100 ML IV SCH (12:22)
[2017-09-10] MEDS ORDERED: DILTIAZEM HCL 25 MG/5 ML VIAL IV ONE (12:45)
[2017-09-10] MEDS ORDERED: PHENYLEPHRINE HCL 10 MG/ML VIAL ONE ×3 (13:19→13:22)
[2017-09-10] MEDS ORDERED: TERBUTALINE INJ 1 MG/ML AMP SQ PRN (13:30)
[2017-09-10 14:11] LABS: HEPARIN INDUCED PLATELET AB NEGATIVE (NEGATIVE)
--- NOTE | 2017-09-10 14:35 | RADRPT ---
EXAM DATE: 09/10/2017 2:32 PM EDT AGE/SEX: 66 years / Male INDICATIONS: Bilateral arm swelling. CLINICAL DATA: This is the patient's initial encounter. Patient reports that signs and symptoms have been present for 2 days and indicates a pain score of Nonresponsive. MEDICAL/SURGICAL HISTORY: . Cardiovascular disease. Cerebrovascular disease. Hypertension. Diab etic. . Stemotomy. ET Tube. NG Tube. COMPARISON: No prior [facility] exams available for comparison. FINDINGS: Right Upper Extremity: There is spontaneous flow documented in the brachial, basilic, cephalic, axil kenna, and subclavian veins. The vessels are compressible and augmentation response is documented. N o filling defects are seen. The flow is phasic with respiration. Direction of flow in the jugular v ein is caudal. Left Upper Extremity: There is spontaneous flow documented in the brachial, basilic, cephalic, axill kate, and subclavian veins. The vessels are compressible and augmentation response is documented. No filling defects are seen. The flow is phasic with respiration. Direction of flow in the jugular ve in is caudal. CONCLUSION: 1. The study is negative for bilateral upper extremity deep venous thrombosis. Electronically signed by: Abel Cannon MD 09/10/2017 2:34 PM EDT
--- NOTE | 2017-09-10 16:42 | HHI.PR ---
Subjective Remarks ALERT ON VENT SUPPORT Objective Vital Signs Date Time Temp Pulse Resp B/P (MAP) Pulse Ox O2 Delivery O2 Flow Rate FiO2 09/10/17 16:15 100 40 09/10/17 15:42 103 128/77 09/10/17 13:30 92 77/53 618 13:24 148 09/10/17 13:22 92 77/53 6 13:21 92 77/53 09/10/17 13:19 92 77/53 09/10/17 13:15 105 09/10/17 13:12 109 09/10/17 13:00 105 09/10/17 12:46 105 09/10/17 12:31 190 09/10/17 12:00 35 09/10/17 12:00 99 09/10/17 11:30 102 09/10/17 11:00 100 09/10/17 10:01 113 09/10/17 10:00 113 09/10/17 09:00 108 09/10/17 08:30 104 09/10/17 08:20 108 99/63 09/10/17 08:11 96 35 09/10/17 08:00 35 09/10/17 08:00 100.3 113 19 99/63 (75) 96 09/10/17 08:00 116 09/10/17 07:30 121 09/10/17 07:00 115 09/10/17 06:00 119 09/10/17 05:00 119 22 136/76 (96) 95 09/10/17 04:30 130 21 128/80 (96) 95 09/10/17 04:22 96 35 09/10/17 04:00 98.3 117 21 144/77 (99) 96 09/10/17 04:00 35 09/10/17 04:00 117 09/10/17 03:30 119 25 158/84 (108) 96 09/10/17 03:00 111 31 117/68 (84) 96 09/10/17 02:30 111 45 116/70 (85) 97 09/10/17 02:00 105 09/10/17 02:00 105 19 126/72 (90) 97 09/10/17 01:30 113 33 135/81 (99) 96 09/10/17 01:25 97 35 09/10/17 01:00 99 25 114/65 (81) 95 09/10/17 00:30 98 31 117/68 (84) 96 09/10/17 00:00 99 09/10/17 00:00 98.1 99 30 129/65 (86) 94 09/10/17 00:00 35 09/09/17 23:30 96 28 113/65 (81) 96 09/09/17 23:00 94 31 126/70 (88) 96 09/09/17 22:30 97 38 119/67 (84) 96 09/09/17 22:05 96 35 09/09/17 22:00 97 40 116/72 (87) 96 09/09/17 22:00 97 09/09/17 21:30 91 47 120/69 (86) 97 09/09/17 21:00 92 45 116/69 (85) 97 09/09/17 20:30 98 42 111/68 (82) 97 09/09/17 20:00 107 09/09/17 20:00 35 09/09/17 20:00 98.9 107 39 108/63 (78) 95 09/09/17 19:30 101 32 109/63 (78) 94 09/09/17 19:12 95 35 09/09/17 19:00 100 09/09/17 19:00 100 20 99/62 (74) 94 09/09/17 18:00 99 09/09/17 17:00 94 I/O 09/09/17 09/09/17 09/09/17 09/10/17 09/10/17 09/10/17 07:00 15:00 23:00 07:00 15:00 23:00 Intake Total 2855 ml 500 ml 2510 ml 1550 ml Output Total 700 ml 900 ml 630 ml Balance 2155 ml 500 ml 1610 ml 920 ml IV Total 2355 ml 500 ml 1650 ml 1000 ml Tube Feeding 300 ml 360 ml 300 ml Other 200 ml 500 ml 250 ml Output Urine Total 300 ml 700 ml 450 ml Stool Total 400 ml 200 ml 180 ml Bladder Scan Volume Amount 350 ml 300 ml 300 ml Result Diagram: 09/10/17 0330 09/10/17 0330 Objective Remarks GENERAL: SKIN: Warm and dry. HEAD: Atraumatic. Normocephalic. EYES: Pupils equal and round. No scleral icterus. No injection or drainage. ENT: No nasal bleeding or discharge. Mucous membranes pink and moist. NECK: Trachea midline. No JVD. CARDIOVASCULAR: Regular rate and rhythm. RESPIRATORY: No accessory muscle use. Clear to auscultation. Breath sounds equal bilaterally. GASTROINTESTINAL: Abdomen soft, non-tender, nondistended. Hepatic and splenic margins not palpable. MUSCULOSKELETAL: Extremities without clubbing, cyanosis, or edema. No obvious deformities. NEUROLOGICAL: Awake and alert. No obvious cranial nerve deficits. Motor grossly within normal limits. Five out of 5 muscle strength in the arms and legs. Normal speech. PSYCHIATRIC: Appropriate mood and affect; insight and judgment normal. Assessment and Plan Assessment and Plan IMPRESSION RESPIRATORY FAILURE COPD AFIB HTN PVD CAD PLAN VENT SUPPORT BRONCHODILATOR THERAPY WEAN OFF VENT TOLERATED Goran Zimmer MD Sep 10, 2017 16:42
--- NOTE | 2017-09-10 17:14 | EKG ---
Date Performed: 09/10/2017 Time Performed: 14:35:17 PTAGE: 66 years EKG: SINUS TACHYCARDIA WITH OCCASIONAL ECTOPIC PREMATURE COMPLEXES NONSPECIFIC T-WAVE ABNORMALIT Y ABNORMAL ECG PREVIOUS TRACING : 09/01/2017 18.03 Compared to previous tracing, RBBB no longer present DOCTOR: Alondra Gilbert Interpretating Date/Time 09/10/2017 17:12:58
--- NOTE | 2017-09-10 18:27 | HHI.IDPN ---
Subjective Subjective Remarks Mr. Salcedo is a 66-year-old male with past medical history of nonischemic cardiomyopathy with EF 25%,, diabetes mellitus, peripheral vascular disease status post left below-knee amputation in the past. With this background patient presents to the emergency department with acute onset of shortness of breath and altered mental status. Patient was reportedly at the [facility] and his O2 sats dropped and given his history of COPD EMS was called when EMS saw the patient he developed agonal breathing with O2 sats in the low 80s and pink frothy sputum. Patient was intubated in the field. Patient's blood pressure following intubation dropped from systolic in 190s-60s systolic and patient was started on dopamine in the field by EMS. Patient was admitted to critical care services and underwent sepsis workup. Patient also underwent a CT chest to evaluate for PE which was negative. However it did show severe emphysematous changes with groundglass opacities. Patient has been started on aztreonam IV due to his history of rash to cefaclor. Clinically patient appears to be doing better and his chest x-ray has improved. RN reports that he continues to have some bloody secretions and there was a blood clot noted yesterday. But no active bleeding noted. Concern for possible ongoing aspiration given bleeding. At the time of my evaluation patient is in the ICU currently intubated. Patient underwent CPAP trial but failed. Respiratory therapist notes blood tinged secretions. Urine output okay Patient has had fevers as well as leukocytosis despite steroids being tapered off. Infectious disease consulted for evaluation and management of new fevers as well as increasing leukocytosis despite decreasing steroids. And also concern for Pseudomonas pneumonia. Overnight events reviewed with RN No fevers No rash No diarrhea reintubated. Antibiotics Cefepime IV Flagyl oral Vanco IV Lines Line sites with no e.o infection Past Medical History Past Medical History Per review of records Nonischemic cardiomyopathy with EF of 25% on July 2014 cardiac cath report. EF of 60% on January 2015 echo. History of acalculous cholecystitis status post biliary drain placement and subsequent cholecystectomy. Severe COPD Coronary artery disease status post coronary artery bypass in March 2014. Diabetes mellitus Hyperlipidemia Hypertension Paroxysmal atrial fibrillation Peripheral vascular disease status post left external iliac stent, bilateral femoral endarterectomies, bilateral profundoplasty, femorofemoral and aortobifemoral bypasses on May 07, 2014 as well as status post left femoral anterior tibial bypass and amputation of the left first and second toes in April 2016. Thereafter patient underwent a left below-knee amputation in May 01, 2016. Past Surgical History Per review of records Cardiac cath Coronary artery bypass graft in March 2014 Peripheral vascular disease with multiple bypasses in the lower extremities. Left below-knee amputation Allergies: Coded Allergies: cefaclor (Verified Allergy, Intermediate, rash, 06/28/17) Objective . Vital Signs Date Time Temp Pulse Resp B/P (MAP) Pulse Ox O2 Delivery O2 Flow Rate FiO2 09/10/17 16:45 102 09/10/17 16:45 102 19 115/72 (86) 100 09/10/17 16:30 103 09/10/17 16:30 103 19 115/72 (86) 100 09/10/17 16:15 100 40 09/10/17 16:15 100 24 117/70 (86) 100 09/10/17 16:15 100 09/10/17 16:00 101 09/10/17 16:00 35 09/10/17 16:00 99.8 101 17 116/66 (83) 100 09/10/17 15:45 103 09/10/17 15:45 103 19 103/58 (73) 100 09/10/17 15:42 103 128/77 09/10/17 15:30 103 18 128/77 (94) 100 09/10/17 15:30 103 09/10/17 15:15 96 09/10/17 15:00 97 09/10/17 15:00 97 17 114/73 (87) 100 09/10/17 14:45 98 09/10/17 14:45 98 18 110/71 (84) 100 09/10/17 14:30 100 20 114/74 (87) 100 09/10/17 14:30 100 09/10/17 14:20 101 19 122/76 (91) 94 09/10/17 14:15 101 18 100 09/10/17 14:00 106 21 92 09/10/17 13:45 105 /18 13:45 105 19 139/65 (89) 100 09/10/17 13:30 92 18 77/53 (61) 100 09/10/17 13:30 92 77/53 618 13:24 148 6/08/23 13:22 92 77/53 6/5/18 13:21 92 77/53 6/5/18 13:19 92 77/53 6/5/18 13:15 105 6/5/18 13:12 109 6/5/18 13:00 105 6/5/18 13:00 105 23 111/64 (80) 100 6/5/18 12:46 105 16 102/57 (72) 94 6/5/18 12:46 105 6/5/18 12:40 108 19 88/50 (63) 97 6/5/18 12:31 190 6/5/18 12:30 108 17 115/56 (75) 95 6/5/18 12:00 98.7 99 30 86/56 (66) 95 6/5/18 12:00 35 6/5/18 12:00 99 6/5/18 11:30 102 6/5/18 11:30 102 37 102/59 (73) 99 6/5/18 11:00 100 6/5/18 11:00 100 32 99/61 (74) 96 6/5/18 10:53 100 29 93/56 (68) 97 6/5/18 10:32 109 41 76/54 (61) 95 6/5/18 10:30 110 41 76/57 (63) 95 6/5/18 10:01 113 6/5/18 10:00 113 6/5/18 10:00 113 20 95 6/5/18 10:00 98.4 113 24 99/57 (71) 95 6/5/18 09:30 111 21 78/61 (67) 97 6/5/18 09:00 108 6/5/18 09:00 108 19 90/59 (69) 95 6/5/18 08:30 104 6/5/18 08:20 108 99/63 6/5/18 08:11 96 35 6/5/18 08:00 35 6/5/18 08:00 100.3 113 19 99/63 (75) 96 6/5/18 08:00 116 6/5/18 07:30 121 6/5/18 07:00 115 6/5/18 06:00 119 6/5/18 05:00 119 22 136/76 (96) 95 6/5/18 04:30 130 21 128/80 (96) 95 6/5/18 04:22 96 35 09/10/17 04:00 98.3 117 21 144/77 (99) 96 09/10/17 04:00 35 09/10/17 04:00 117 09/10/17 03:30 119 25 158/84 (108) 96 09/10/17 03:00 111 31 117/68 (84) 96 09/10/17 02:30 111 45 116/70 (85) 97 09/10/17 02:00 105 09/10/17 02:00 105 19 126/72 (90) 97 09/10/17 01:30 113 33 135/81 (99) 96 09/10/17 01:25 97 35 09/10/17 01:00 99 25 114/65 (81) 95 09/10/17 00:30 98 31 117/68 (84) 96 09/10/17 00:00 99 09/10/17 00:00 98.1 99 30 129/65 (86) 94 09/10/17 00:00 35 09/09/17 23:30 96 28 113/65 (81) 96 09/09/17 23:00 94 31 126/70 (88) 96 09/09/17 22:30 97 38 119/67 (84) 96 09/09/17 22:05 96 35 09/09/17 22:00 97 40 116/72 (87) 96 09/09/17 22:00 97 09/09/17 21:30 91 47 120/69 (86) 97 09/09/17 21:00 92 45 116/69 (85) 97 09/09/17 20:30 98 42 111/68 (82) 97 09/09/17 20:00 107 09/09/17 20:00 35 09/09/17 20:00 98.9 107 39 108/63 (78) 95 09/09/17 19:30 101 32 109/63 (78) 94 09/09/17 19:12 95 35 09/09/17 19:00 100 09/09/17 19:00 100 20 99/62 (74) 94 . Laboratory Tests Test 09/08/17 23:00 09/09/17 04:10 09/09/17 11:25 09/10/17 03:30 White Blood Count 5.6 TH/MM3 3.8 TH/MM3 6.0 TH/MM3 5.8 TH/MM3 Red Blood Count 3.21 MIL/MM3 2.91 MIL/MM3 3.07 MIL/MM3 3.51 MIL/MM3 Hemoglobin 9.8 GM/DL 8.9 GM/DL 9.5 GM/DL 10.9 GM/DL Hematocrit 31.0 % 28.0 % 29.4 % 33.8 % Mean Corpuscular Volume 96.5 FL 96.1 FL 95.7 FL 96.1 FL Mean Corpuscular Hemoglobin 30.5 PG 30.5 PG 31.0 PG 30.9 PG Mean Corpuscular Hemoglobin Concent 31.6 % 31.7 % 32.4 % 32.1 % Red Cell Distribution Width 18.2 % 18.4 % 18.2 % 19.0 % Platelet Count 77 TH/MM3 66 TH/MM3 68 TH/MM3 92 TH/MM3 Mean Platelet Volume 11.2 FL 11.5 FL 11.4 FL 11.9 FL Neutrophils (%) (Auto) 89.1 % 87.1 % 93.2 % Lymphocytes (%) (Auto) 4.2 % 6.5 % 2.4 % Monocytes (%) (Auto) 6.6 % 6.2 % 4.2 % Eosinophils (%) (Auto) 0.0 % 0.1 % 0.1 % Basophils (%) (Auto) 0.1 % 0.1 % 0.1 % Neutrophils # (Auto) 5.0 TH/MM3 5.2 TH/MM3 5.4 TH/MM3 Lymphocytes # (Auto) 0.2 TH/MM3 0.4 TH/MM3 0.1 TH/MM3 Monocytes # (Auto) 0.4 TH/MM3 0.4 TH/MM3 0.2 TH/MM3 Eosinophils # (Auto) 0.0 TH/MM3 0.0 TH/MM3 0.0 TH/MM3 Basophils # (Auto) 0.0 TH/MM3 0.0 TH/MM3 0.0 TH/MM3 CBC Comment AUTO DIFF AUTO DIFF AUTO DIFF Differential Total Cells Counted 100 100 100 Neutrophils % (Manual) 74 % 62 % 54 % Band Neutrophils % 14 % 32 % 31 % Lymphocytes % 5 % 1 % 5 % Monocytes % 2 % 4 % 3 % Neutrophils # (Manual) 5.2 TH/MM3 5.6 TH/MM3 5.3 TH/MM3 Metamyelocytes 5 % 7 % Nucleated Red Blood Cells 8 /100 WBC 2 /100 WBC 7 /100 WBC Differential Comment FINAL DIFF MANUAL FINAL DIFF MANUAL FINAL DIFF MANUAL Platelet Estimate LOW LOW LOW Platelet Morphology Comment NORMAL NORMAL ENLARGED Polychromasia 3.0 % 2.8 % 3.0 % Blastocytes 1 % Atypical Lymphocytes % Laboratory Tests Test 09/08/17 23:00 09/09/17 04:10 09/09/17 11:25 09/10/17 03:30 Blood Urea Nitrogen 56 MG/DL 50 MG/DL 49 MG/DL 51 MG/DL Creatinine 0.56 MG/DL 0.48 MG/DL 0.48 MG/DL 0.58 MG/DL Random Glucose 246 MG/DL 191 MG/DL 139 MG/DL 216 MG/DL Total Protein 3.9 GM/DL 3.7 GM/DL 4.0 GM/DL 4.6 GM/DL Albumin 1.3 GM/DL 1.5 GM/DL 1.5 GM/DL Calcium Level 7.1 MG/DL 7.4 MG/DL 7.6 MG/DL 7.9 MG/DL Phosphorus Level 3.9 MG/DL Magnesium Level 2.5 MG/DL Alkaline Phosphatase 733 U/L 662 U/L 1213 U/L Aspartate Amino Transf (AST/SGOT) 731 U/L 260 U/L 868 U/L Alanine Aminotransferase (ALT/SGPT) 405 U/L 335 U/L 774 U/L Total Bilirubin 0.8 MG/DL 0.5 MG/DL 0.6 MG/DL Sodium Level 155 MEQ/L 154 MEQ/L 151 MEQ/L 147 MEQ/L Potassium Level 4.0 MEQ/L 4.2 MEQ/L 3.9 MEQ/L 3.9 MEQ/L Chloride Level 120 MEQ/L 120 MEQ/L 116 MEQ/L 114 MEQ/L Carbon Dioxide Level 25.5 MEQ/L 24.9 MEQ/L 23.4 MEQ/L 21.4 MEQ/L Anion Gap 10 MEQ/L 9 MEQ/L 12 MEQ/L 12 MEQ/L Estimat Glomerular Filtration Rate 146 ML/MIN 175 ML/MIN 175 ML/MIN 141 ML/MIN Protein Corrected Calcium 8.9 MG/DL 9.5 MG/DL Microbiology Date/Time Source Procedure Growth Status 09/10/17 12:20 Blood Peripheral Aerobic Blood Culture Pending Received 09/10/17 12:20 Blood Peripheral Anaerobic Blood Culture Pending Received 09/10/17 12:15 Blood Peripheral Aerobic Blood Culture Pending Received 09/10/17 12:15 Blood Peripheral Anaerobic Blood Culture Pending Received 09/08/17 11:40 Blood Peripheral Aerobic Blood Culture - Preliminary NO GROWTH IN 2 DAYS Resulted 09/08/17 11:40 Blood Peripheral Anaerobic Blood Culture - Preliminary NO GROWTH IN 2 DAYS Resulted 09/08/17 11:35 Blood Peripheral Aerobic Blood Culture - Preliminary NO GROWTH IN 2 DAYS Resulted 09/08/17 11:35 Anaerobic Blood Culture - Preliminary Yeast-Id To Follow Resulted 09/08/17 11:15 Sputum Endotracheal Gram Stain - Final Complete 09/08/17 11:15 Sputum Culture - Final Pseudomonas Aeruginosa Complete 09/08/17 11:15 Urine Catheterized Urine Urine Culture - Final Yudi Parapsilosis Complete Imaging Last Impressions Chest X-Ray 08/21/17 0600 Signed Impressions: Service Date/Time: Monday, August 21, 2017 04:09 - CONCLUSION: Clear lungs. Ricki Metzger Jr., MD CT Angiography 08/13/17 0000 Signed Impressions: Service Date/Time: Sunday, August 13, 2017 07:25 - CONCLUSION: 1. No CT evidence for pulmonary embolism as questioned. 2. Moderate to severe upper lobe predominant centrilobular emphysema. 3. Patchy bibasilar groundglass opacities likely reflecting atelectasis although differential considerations include aspiration. 4. Multiple 4-6mm bilateral groundglass and solid nodules, likely infectious/inflammatory. Recommend followup CT examination in approximately 6 months per 2017 Fleischner criteria (6mm nodule). Steve Barajas MD Physical Exam GENERAL: This is a well-nourished, well-developed patient, in no apparent distress. SKIN: No rashes, ecchymoses or lesions. Cool and dry. HEAD: Atraumatic. Normocephalic. No temporal or scalp tenderness. EYES: Pupils equal round and reactive. Extraocular motions intact. No scleral icterus. No injection or drainage. ENT: Intubated. NECK: Trachea midline. Supple, nontender, no meningeal signs. CARDIOVASCULAR: HS audible. No murmur appreciated. RESPIRATORY: Clear to auscultation. Breath sounds decreased in bases. GASTROINTESTINAL: Abdomen soft, non-tender, nondistended. MUSCULOSKELETAL: Left leg BKA site ok. NEUROLOGICAL: Opens eyes.Non focal exam. Did not follow commands Psych could not be assessed. IV line sites with no e.o infection Assessment & Plan Remarks Fungemia: Central line related. Acute resp failure on vent Acute metabolic encephalopathy: infection, metabolic Pseudomonas pneumonitis in setting of aspiration completed treatment. High grade leucocytosis on steroids plus infection. Recs Continue Micafungin IV Opthalm consult. 2D ECHO limited to look for valve vegetations. CL was replaced likely old line related CL infection. repeat blood cultures Doppler UE ordered: negative. Follow cultures. follow clinically. I will be OOT from 09/11/2017 to 09/23/2017. I will be back in town 09/24/2017. Other ID MDs to cover for me. Sofia Crawford MD Sep 10, 2017 18:27
[2017-09-10] MEDS: RESP: ALBUTEROL 2.5 MG/IPRATROPIUM 0.5 MG NEB (PRN) NEB (19:20)
[2017-09-10] MEDS: PHENYLEPHRINE INJ 40 MG in DEXTROSE 5% IN WATE 500 ML INJ 496 ML IV PRN ×4 (20:00→20:04)
[2017-09-10] MEDS: FUROSEMIDE 20 MG/2 ML VIAL IV PUSH SCH (20:05)
[2017-09-10] MEDS: PROPAFENONE HCL 150 MG TAB PO SCH (21:50)
[2017-09-11] VITALS (30 sets, daily range): BP systolic 89–118; BP diastolic 52–64; PULSE 93–172; RESP 19–54; TEMP 98.5–100.9; O2SAT 90–100
[2017-09-11] MEDS: VASOPRESSIN INJ 40 UNITS in DEXTROSE 5% IN WATER 100ML INJ 98 ML IV SCH ×6 (03:38→22:14)
[2017-09-11] MEDS: INSULIN ASPART SUPPLEMENTAL SCALE SQ SCH ×5 (04:00→20:00)
[2017-09-11] MEDS: CHLORHEXIDINE GLUCONATE 2 % 1 PACK (2 CLOTHS) TOP SCH (04:00)
[2017-09-11] MEDS: RESP: ALBUTEROL 2.5 MG/IPRATROPIUM 0.5 MG NEB (PRN) NEB ×2 (04:28→20:01)
[2017-09-11] MEDS: PROPAFENONE HCL 150 MG TAB PO SCH ×3 (05:08→21:15)
[2017-09-11] MEDS: PANTOPRAZOLE SODIUM 40 MG VIAL IV PUSH SCH ×2 (05:08→16:50)
[2017-09-11] MEDS: MIDODRINE 5 MG TAB PO SCH ×3 (05:08→21:15)
[2017-09-11 06:05] LABS: AUTOMATED NEUTROPHIL # 3.4 TH/MM3 (1.8-7.7); BASOPHIL % 0.1 % (0.0-2.0); HEMATOCRIT 27.5 % (39.0-51.0); LYMPH % 3.9 % (9.0-44.0); LYMPHOCYTE # 0.1 TH/MM3 (1.0-4.8); MEAN CORPUSCULAR HEMOGLOBIN 31.5 PG (27.0-34.0); MEAN CORPUSCULAR HGB CONC 32.8 % (32.0-36.0); MEAN PLATELET VOLUME 12.1 FL (7.0-11.0); MONO % 1.4 % (0.0-8.0); NEUT % 94.6 % (16.0-70.0); PLATELET COUNT 77 TH/MM3 (150-450); RED BLOOD COUNT 2.86 MIL/MM3 (4.50-5.90); WHITE BLOOD COUNT 3.6 TH/MM3 (4.0-11.0)
[2017-09-11 06:28] LABS: ALBUMIN 1.1 GM/DL (3.4-5.0); ALT (GPT) 263 U/L (12-78); AST (GOT) 56 U/L (15-37); BICARBONATE 22.6 MEQ/L (21.0-32.0); BLOOD UREA NITROGEN 41 MG/DL (7-18); CALCIUM 7.6 MG/DL (8.5-10.1); CHLORIDE 115 MEQ/L (98-107); CREATININE 0.46 MG/DL (0.60-1.30); GLOMERULAR FILTRATION RATE 184 ML/MIN (>89); GLUCOSE,RANDOM 189 MG/DL (74-106); SODIUM (NA) 149 MEQ/L (136-145)
[2017-09-11 06:29] LABS: ALKALINE PHOSPHATASE 623 U/L (45-117); TOTAL BILIRUBIN ADULT 0.6 MG/DL (0.2-1.0); TOTAL PROTEIN 4.4 GM/DL (6.4-8.2)
[2017-09-11] MEDS: ISOSORBIDE MONONITRATE 60 MG CR TAB (IMDUR) PO SCH (07:00)
[2017-09-11] MEDS: RESP: BUDESONIDE 0.5 MG/2 ML NEB NEB SCH ×2 (07:21→20:01)
--- NOTE | 2017-09-11 08:00 | PD.CARD.PN ---
Subjective Subjective Remarks Intubated. Awake. Seems to deny palpitations, dizziness, dyspnea, CP. Objective Medications Item Value Date Time Sodium Chloride 08/27/17 1545 (NS Flush) UNSCH PRN/IV FLUSH Propafenone HCl 150 mg 09/10/17 2200 (Rythmol) Q8HR/PO 09/11/17 0508 Furosemide 40 mg 09/10/17 2100 (Lasix Inj) BID/IV PUSH Metoprolol 25 mg 09/09/17 2100 Tartrate Q12HR/PO (Lopressor) Isosorbide 60 mg 08/27/17 0700 Mononitrate DAILY@07/PO (Imdur) Aspirin 81 mg 08/13/17 0900 (Aspirin Chew) DAILY/CHEW 09/10/17 0733 Current Medications Medications (Trade) Dose Ordered Sig/Lindsey Route Start Time Stop Time Status Last Admin (D50w (Vial) Inj) 50 ml UNSCH PRN IV PUSH 08/13/17 05:30 08/26/17 04:18 (Glucagon Inj) 1 mg UNSCH PRN OTHER 08/13/17 05:30 (Brethine Inj) 1 mg UNSCH PRN SQ 08/13/17 06:15 (NS Flush) 2 ml UNSCH PRN IV FLUSH 08/13/17 07:00 09/01/17 05:21 (NS Flush) 2 ml BID IV FLUSH 08/13/17 09:00 09/10/17 20:06 (Tylenol) 650 mg Q6H PRN PO 08/13/17 07:00 08/30/17 08:03 (Pepcid) 20 mg BID TUBE 08/13/17 09:00 09/10/17 20:05 ([facility]) 1 Q361D XX 08/13/17 07:00 08/13/17 07:00 (Chlorhexidine 2% Cloth) Taper DAILY@04 TOP 08/14/17 04:00 08/10/18 03:59 09/02/17 03:36 (Chlorhexidine 2% Cloth) 3 pack UNSCH PRN TOP 08/13/17 07:00 (Aspirin Chew) 81 mg DAILY CHEW 08/13/17 09:00 09/10/17 07:33 (Pulmicort Respule Neb) 0.5 mg Q12HR NEB NEB 08/14/17 14:00 09/11/17 07:21 (Prinivil) 10 mg DAILY PO 08/15/17 09:00 Future Hold 08/21/17 07:56 (Lipitor) 40 mg HS PO 08/15/17 21:00 Future Hold 09/08/17 20:47 (Coumadin) 4 mg DAILY@16 PO 08/18/17 16:00 Future Hold 08/18/17 17:02 (Lovenox Inj) 40 mg Q24H SQ 08/20/17 10:00 Future Hold 09/08/17 08:40 (Lopressor Inj) 2.5 mg Q6H PRN IV PUSH 08/22/17 08:00 09/10/17 04:34 (NovoLOG SUPPLEMENTAL SCALE) 1 Q4HR SQ 08/22/17 09:30 09/11/17 04:00 (Imdur) 60 mg DAILY@07 PO 08/27/17 07:00 08/29/17 05:09 (Duoneb Neb) 1 ampule Q2HR NEB PRN NEB 08/27/17 01:00 09/11/17 04:28 (NS Flush) DAILY IV FLUSH 08/28/17 09:00 09/10/17 08:26 (NS Flush) UNSCH PRN IV FLUSH 08/27/17 15:45 (Protonix Inj) 40 mg Q12H IV PUSH 08/28/17 06:00 09/11/17 05:08 (Levemir Inj) 15 units DAILY SQ 08/31/17 09:00 Future Hold 09/08/17 08:06 (Levsin Liq) 0.125 mg Q4H PRN PO 08/30/17 09:30 (Levemir Inj) 10 units HS SQ 08/31/17 21:00 Future Hold 09/08/17 20:48 (Peridex 0.12% Liq) 15 ml BID@08,20 MT 09/01/17 20:00 09/10/17 20:06 ([facility] [place] [facility]) Patient in critical care unit? Ass... Q361D .XX 09/01/17 21:00 09/01/17 21:00 Vasopressin 40 units/Dextrose 100 ml @ 6 mls/hr [id number] IV 09/07/17 16:18 09/09/17 05:18 (Haldol Inj) 5 mg Q4H PRN IV PUSH 09/08/17 10:15 (Proamatine) 10 mg Q8HR PO 09/08/17 11:00 09/11/17 05:08 (Roxicodone Intensol Liq) 5 mg Q4H PRN PO 09/08/17 10:15 09/10/17 05:34 (SoluMEDROL INJ) 40 mg Q12HR IV PUSH 09/09/17 09:45 09/10/17 20:05 (Lopressor) 25 mg Q12HR PO 09/09/17 21:00 09/10/17 08:25 (Free Water) 250 ml Q12HR G-TUBE 09/09/17 21:00 09/10/17 20:06 Fentanyl Citrate 250 ml @ 5 mls/hr TITRATE PRN IV 09/10/17 11:45 09/10/17 12:48 Micafungin Sodium 150 mg/Sodium Chloride 100 ml @ 100 mls/hr Q24H IV 09/10/17 13:00 09/10/17 12:22 (Lasix Inj) 40 mg BID IV PUSH 09/10/17 21:00 Phenylephrine HCl 40 mg/Dextrose 500 ml @ 30 mls/hr TITRATE PRN IV 09/10/17 14:00 09/10/17 20:00 (Brethine Inj) 1 mg UNSCH PRN SQ 09/10/17 13:30 (Rythmol) 150 mg Q8HR PO 09/10/17 22:00 09/11/17 05:08 Vital Signs / I&O Vital Signs Date Time Temp Pulse Resp B/P (MAP) Pulse Ox O2 Delivery O2 Flow Rate FiO2 09/11/17 07:21 98 35 09/11/17 06:00 110 09/11/17 04:29 99 35 09/11/17 04:00 116 09/11/17 04:00 35 09/11/17 04:00 98.7 116 51 102/58 (73) 100 09/11/17 03:38 121 98/60 09/11/17 02:00 113 09/11/17 00:00 116 09/11/17 00:00 98.5 116 54 118/64 (82) 98 09/11/17 00:00 35 6/5/18 23:27 100 35 6/5/18 22:00 121 6/5/18 21:00 123 21 85/54 (64) 99 6/5/18 20:47 125 23 79/52 (61) 99 6/5/18 20:45 124 22 76/54 (61) 97 6/5/18 20:30 123 21 96/53 (67) 98 6/5/18 20:15 124 23 95/57 (70) 98 6/5/18 20:00 124 6/5/18 20:00 35 6/5/18 20:00 100.0 124 31 83/52 (62) 98 6/5/18 20:00 124 83/52 6/5/18 19:21 99 40 6/5/18 19:00 113 105/65 6/5/18 18:15 111 6/5/18 18:00 111 6/5/18 17:45 106 6/5/18 17:30 104 6/5/18 17:15 105 6/5/18 17:00 103 6/5/18 16:45 102 6/5/18 16:45 102 19 115/72 (86) 100 6/5/18 16:30 103 6/5/18 16:30 103 19 115/72 (86) 100 6/5/18 16:15 100 40 6/5/18 16:15 100 24 117/70 (86) 100 6/5/18 16:15 100 6/5/18 16:00 101 6/5/18 16:00 35 6/5/18 16:00 99.8 101 17 116/66 (83) 100 6/5/18 15:45 103 6/5/18 15:45 103 19 103/58 (73) 100 6/5/18 15:42 103 128/77 6/5/18 15:30 103 18 128/77 (94) 100 6/5/18 15:30 103 6/5/18 15:15 96 6/5/18 15:00 97 6/5/18 15:00 97 17 114/73 (87) 100 6/5/18 14:45 98 6/5/18 14:45 98 18 110/71 (84) 100 6/5/18 14:30 100 20 114/74 (87) 100 6/5/18 14:30 100 6/5/18 14:20 101 19 122/76 (91) 94 6/5/18 14:15 101 18 100 6/5/18 14:00 106 21 92 6/5/18 13:45 105 6/5/18 13:45 105 19 139/65 (89) 100 6/5/18 13:30 92 18 77/53 (61) 100 6/5/18 13:30 92 77/53 6/5/18 13:24 148 6/5/18 13:22 92 77/53 6/5/18 13:21 92 77/53 6/5/18 13:19 92 77/53 6/5/18 13:15 105 6/5/18 13:12 109 6/5/18 13:00 105 6/5/18 13:00 105 23 111/64 (80) 100 6/5/18 12:46 105 16 102/57 (72) 94 6/5/18 12:46 105 6/5/18 12:40 108 19 88/50 (63) 97 6/5/18 12:31 190 6/5/18 12:30 108 17 115/56 (75) 95 6/5/18 12:00 98.7 99 30 86/56 (66) 95 6/5/18 12:00 35 6/5/18 12:00 99 6/5/18 11:30 102 6/5/18 11:30 102 37 102/59 (73) 99 6/5/18 11:00 100 6/5/18 11:00 100 32 99/61 (74) 96 6/5/18 10:53 100 29 93/56 (68) 97 6/5/18 10:32 109 41 76/54 (61) 95 6/5/18 10:30 110 41 76/57 (63) 95 6/5/18 10:01 113 6/5/18 10:00 113 6/5/18 10:00 113 20 95 6/5/18 10:00 98.4 113 24 99/57 (71) 95 6/5/18 09:30 111 21 78/61 (67) 97 6/5/18 09:00 108 6/5/18 09:00 108 19 90/59 (69) 95 6/5/18 08:30 104 6 08:20 108 99/63 09/10/17 08:11 96 35 09/10/17 08:00 35 09/10/17 08:00 100.3 113 19 99/63 (75) 96 09/10/17 08:00 116 I/O 09/10/17 09/10/17 09/10/17 09/11/17 09/11/17 09/11/17 07:00 15:00 23:00 07:00 15:00 23:00 Intake Total 1550 ml 228 ml 358 ml 561 ml Output Total 630 ml 650 ml 825 ml Balance 920 ml 228 ml -292 ml -264 ml IV Total 1000 ml 228 ml 108 ml 261 ml Tube Feeding 300 ml 0 ml 0 ml Other 250 ml 250 ml 300 ml Output Urine Total 450 ml 550 ml 425 ml Stool Total 180 ml 100 ml 400 ml Bladder Scan Volume Amount 300 ml Physical Exam GENERAL: Well developed, well nourished. Intubated. No acute distress. HEENT: Jugular venous pressure is normal. CHEST: Clear lungs anteriorly. CARDIAC: Regular rate and rhythm without S3, S4, or murmur. ABDOMEN: Soft, no hepatosplenomegaly. Bowel sounds present. EXTREMITIES: SCD in place on the right. Status post left BKA. Laboratory Laboratory Tests Test 09/11/17 05:20 White Blood Count 3.6 TH/MM3 Red Blood Count 2.86 MIL/MM3 Hemoglobin 9.0 GM/DL Hematocrit 27.5 % Mean Corpuscular Volume 96.0 FL Mean Corpuscular Hemoglobin 31.5 PG Mean Corpuscular Hemoglobin Concent 32.8 % Red Cell Distribution Width 19.0 % Platelet Count 77 TH/MM3 Mean Platelet Volume 12.1 FL Neutrophils (%) (Auto) 94.6 % Lymphocytes (%) (Auto) 3.9 % Monocytes (%) (Auto) 1.4 % Eosinophils (%) (Auto) 0.0 % Basophils (%) (Auto) 0.1 % Neutrophils # (Auto) 3.4 TH/MM3 Lymphocytes # (Auto) 0.1 TH/MM3 Monocytes # (Auto) 0.0 TH/MM3 Eosinophils # (Auto) 0.0 TH/MM3 Basophils # (Auto) 0.0 TH/MM3 CBC Comment AUTO DIFF Activated Partial Thromboplast Time 29.9 SEC Blood Urea Nitrogen 41 MG/DL Creatinine 0.46 MG/DL Random Glucose 189 MG/DL Total Protein 4.4 GM/DL Albumin 1.1 GM/DL Calcium Level 7.6 MG/DL Alkaline Phosphatase 623 U/L Aspartate Amino Transf (AST/SGOT) 56 U/L Alanine Aminotransferase (ALT/SGPT) 263 U/L Total Bilirubin 0.6 MG/DL Sodium Level 149 MEQ/L Potassium Level 3.6 MEQ/L Chloride Level 115 MEQ/L Carbon Dioxide Level 22.6 MEQ/L Anion Gap 11 MEQ/L Estimat Glomerular Filtration Rate 184 ML/MIN Assessment and Plan Problem List: (1) Wide QRS ventricular tachycardia ICD Codes: I47.2 - Ventricular tachycardia Status: Acute Plan: Patient with episodic nonsustained wide complex tachycardia, morphology of which suggestive of aberrantly conducted SVT. Some salvoes also suggestive of aberrantly conducted atrial fib. Unable to use Amiodarone with his hepatic insufficiency. REC continue propafenone, consider increase dosing later today (2) CAD (coronary artery disease) ICD Codes: I25.10 - Coronary artery disease Status: Chronic Plan: Possible NSTEMI on admission. Echo technically limited, appears to have normal LV function, EF about 55%. May also have right ventricular hypertrophy with normal RV function. REC continue metoprolol as BP's tolerate, continue aspirin, oral nitrate patient poor candidate for invasive cardiac evaluation at this point (3) Cardiomyopathy ICD Codes: I42.9 - Cardiomyopathy, unspecified Status: Resolved Plan: Prior history of EF 25%. No definite acute CHF. Echo this admission technically limited, appears to have normal LV function, EF about 55%. REC continue beta allyn as BP's tolerate (4) Paroxysmal atrial fibrillation ICD Codes: I48.0 - Paroxysmal atrial fibrillation Status: Chronic Plan: Poorly documented history of paroxysmal atrial fib. Occasional salvoes of irregular rhythm, possibly aberrantly conducted atrial fib. Patient poor candidate now for oral anticoagulation therapy. To continue beta allyn as BP' s tolerate, continue propafenone. Code Status full code Problem Qualifiers (1) CAD (coronary artery disease): Qualified Codes: I25.119 - Atherosclerotic heart disease of [place] coronary artery with unspecified angina pectoris (2) Cardiomyopathy: Qualified Codes: I42.9 - Cardiomyopathy, unspecified Rich Gary MD Sep 11, 2017 08:00
[2017-09-11] MEDS: FAMOTIDINE 20 MG TAB TUBE SCH ×2 (08:07→21:15)
[2017-09-11] MEDS: methylPREDNISolone SOD SUCC 40 MG/1 ML VIAL IV PUSH SCH ×2 (08:07→21:15)
[2017-09-11] MEDS: FREE WATER G-TUBE SCH ×3 (08:08→21:17)
[2017-09-11] MEDS: ASPIRIN 81 MG CHEW TAB CHEW SCH (08:08)
[2017-09-11] MEDS: SODIUM CHLORIDE 0.9% FLUSH 10 ML FLUSH IV FLUSH SCH ×3 (08:08→21:16)
[2017-09-11] MEDS: FUROSEMIDE 20 MG/2 ML VIAL IV PUSH SCH ×2 (08:08→21:16)
[2017-09-11] MEDS: CHLORHEXIDINE 0.12% (ORAL KIT) 15 ML CUP MT SCH ×2 (08:09→20:00)
[2017-09-11] MEDS: METOPROLOL TARTRATE 25 MG TAB PO SCH (08:15)
[2017-09-11 08:27] LABS: BANDS 39 % (0-6); LYMPHOCYTES 2 % (9-44); METAMYELOCYTES 8 % (0-1); MONOCYTES 4 % (0-8); MYELOCYTES 1 % (0-0); NEUTROPHIL # MANUAL DIFF 3.4 TH/MM3 (1.8-7.7); POLYS (SEG NEUTROPHILS) 46 % (16-70)
[2017-09-11 08:28] LABS: DOHLE BODIES PRESENT (NONE SEEN)
[2017-09-11 08:29] LABS: TOXIC GRANULATION 1+ (NORMAL)
[2017-09-11] MEDS: ACETAMINOPHEN 325 MG TAB PO PRN (09:30)
--- NOTE | 2017-09-11 10:37 | HHI.CCPN ---
Subjective Remarks/Hospital Course 66-year-old male who was brought to the ER after he developed shortness of breath and altered mental status. At shelter he was placed on nasal cannula 2 L because of his history of COPD as he uses it off and on. EMS was called when patient developed agonal respirations with O2 sats in the low 80s on their arrival with pink frothy sputum. Patient was intubated in the field after receiving etomidate and Versed. His systolic blood pressure was 190s following intubation and dropped to the 60 systolic range and he was started on dopamine in the field by EMS. He was brought to the ER at [place] and noted to have elevated troponin on his admitting labs. He was accepted for admission by critical care medicine service. He underwent a CT chest to evaluate for PE which was negative for PE however did show severe emphysematous changes with groundglass opacities. History is significantly limited by the fact that he is intubated. When I evaluated the patient he was sedated, orally intubated on mechanical ventilation. History was obtained by reviewing records. SUBJ 08/14/17: Remains intubated sedated, a CPAP was attempted but patient failed almost immediately with severe tachypnea. Continues to have bilateral expiratory wheezing and diminished air entry. Initial troponin was 3.18 now down trending 08/15/17: Patient remains intubated sedated with Versed and fentanyl. On sedation hold wakes up easily follows commands. On attempted CPAP patient became tachypneic with labored breathing using accessory muscles. Not ready for extubation. Pseudomonas growing in sputum. Increase Azactam to 2 g IV every 8 hours 08/16/17: Tolerating CPAP trials better today. Sputum culture growing Pseudomonas pansensitive. Will attempt to extubate with BiPAP use if needed 08/17/17: Reintubated yesterday evening following severe respiratory distress and severe wheezing. Currently remains sedated on vent support. Persistent wheezing. 08/18: Remains intubated sedated. Will initiate CPAP trials again. Patient has severe emphysema and will be difficult to wean to extubate. Wheezing persists. 08/19: Remains sedated, orally intubated on mechanical ventilation. Significant bloody respiratory secretions being suctioned from ET tube. On heparin for anticoagulation. Will hold Coumadin. 08/20: Sedated, arousable, orally intubated on mechanical ventilation. Failing CPAP trials. Heparin held yesterday due to increasing bloody respiratory secretions. 08/21: Remains sedated wakes up easily. Failed CPAP trial immediately today due to tachypnea and respiratory distress. No significant bloody secretions. Chest x-ray was clear. I discussed briefly with daughter. Poly Salcedo about possibility of trach. She needs more time to decide and needs time to discuss with family. I have consulted palliative care to address goals of care. Vent day 9 today. With his some advanced emphysema it will be difficult to wean him off the ventilator without tracheostomy 08/22: Patient is more critical becoming more septic. White count yesterday was 27.5. Today he spiked fever 101.3, tachycardic heart rate in 120s borderline hypotensive.. Chest x-ray shows developing left base infiltrate. Will continue cefepime panculture ordered. Vancomycin 1.25 g 1 and pharmacy to dose. Normal saline bolus 2 L ordered. 08/23: T-max 100.0. Hemoglobin downtrending now 7.2. Patient continues to be borderline hypotensive, monitor Hgb. Patient was tentatively scheduled for percutaneous tracheostomy this a.m. however unable to obtain consent from family members. Sodium level starting to downtrend with addition of free water flushes. 08/24: Hemodynamically stable throughout the night. Transfusion 1 unit of packed cells placed on hold with cancellation percutaneous tracheostomy due to lack of consent. H&H pending this afternoon, will transfuse for hemoglobin less than 7. Patient awake continuing on CPAP for greater than 4 hours today. 08/25: more awake. passed SBT. discussion with family and patient: he would want to be re-intubated and pursue tracheostomy if he fails again. 08/26: remained extubated. denies complaints. high risk for reintubation. wants aggressive care and tracheostomy if re-intubated. 09/01: Critical care reconsulted for worsening respiratory status. Patient was transferred to the ICU from the floor due to increasing O2 requirement and placed on a nonrebreather facemask. He was reportedly tachypneic using accessory muscles of respiration. There was some concern regarding aspiration. I evaluated the patient following his arrival to the ICU. He was breathing in the 30s using accessory muscles of respiration on a nonrebreather facemask. He is awake however not really able to give me details of history due to respiratory distress. Patient will be placed on BiPAP and Precedex in order to avoid intubation. He does have significantly advanced COPD and recently completed a course of antibiotics. Will restart empiric antibiotics with Zyvox/ Levaquin/Flagyl IV. 09/02: Patient was intubated yesterday(09/01) for worsening respiratory distress despite BiPAP and placed on mechanical ventilation. Remains sedated, orally intubated on mechanical ventilation. On Levophed for pressor support. Hemoglobin 7.5 this morning. 2 units PRBCs ordered to be transfused. Borderline elevated troponin noted. 09/03: Remains sedated, orally intubated on mechanical ventilation. Off levophed. 2 units PRBCs transfused yesterday 09/04: Sedated, arousable, orally intubated on mechanical ventilation. Tolerating tube feeds. Failed CPAP trials. 09/05: Remains sedated, orally intubated on mechanical ventilation. Tolerating tube feeds. Failing CPAP trials. 09/06: Sedated, arousable, orally intubated on mechanical ventilation. Failed CPAP trials. 09/07: Sedated, arousable, orally intubated on mechanical ventilation. Failing CPAP trials. Will need tracheostomy and PEG tube placement as family desires aggressive care. Palliative care and discussions with family. 09/08: no improvements at all. febrile again today. juarez-cultured. central line removed and replaced. long discussion with daughter: needs trach/PEG, LTAC. 09/09 Patient went into SVT HR 170-180's overnight given Lopressor, adenosine and placed on Esmolol drip. Also received1 L NS for decrease UOP. On Vasopressin 0.04. 09/10 Patient remains intubated no recurrent SVT. T:100.3 this morning, off vasopressin and esmolol drip. For trach and PEG tube placements today. 09/11 Patient had nonsustained wide complex tachycardia suggestive of aberrantly conducted SVT yesterday now in NSR HR 100. T:100.9 Objective Vital Signs Date Time Temp Pulse Resp B/P (MAP) Pulse Ox O2 Delivery O2 Flow Rate FiO2 09/11/17 10:00 99 09/11/17 08:00 100.9 19 89/58 (68) 99 09/11/17 08:00 35 Intake and Output 09/11/17 09/11/17 09/12/17 08:00 16:00 00:00 Intake Total 561 ml Output Total 825 ml Balance -264 ml Result Diagram: 09/11/17 0520 09/11/17 0520 Other Results Laboratory Tests Test 09/11/17 05:20 White Blood Count 3.6 TH/MM3 Red Blood Count 2.86 MIL/MM3 Hemoglobin 9.0 GM/DL Hematocrit 27.5 % Mean Corpuscular Volume 96.0 FL Mean Corpuscular Hemoglobin 31.5 PG Mean Corpuscular Hemoglobin Concent 32.8 % Red Cell Distribution Width 19.0 % Platelet Count 77 TH/MM3 Mean Platelet Volume 12.1 FL Neutrophils (%) (Auto) 94.6 % Lymphocytes (%) (Auto) 3.9 % Monocytes (%) (Auto) 1.4 % Eosinophils (%) (Auto) 0.0 % Basophils (%) (Auto) 0.1 % Neutrophils # (Auto) 3.4 TH/MM3 Lymphocytes # (Auto) 0.1 TH/MM3 Monocytes # (Auto) 0.0 TH/MM3 Eosinophils # (Auto) 0.0 TH/MM3 Basophils # (Auto) 0.0 TH/MM3 CBC Comment AUTO DIFF Differential Total Cells Counted 100 Neutrophils % (Manual) 46 % Band Neutrophils % 39 % Lymphocytes % 2 % Monocytes % 4 % Neutrophils # (Manual) 3.4 TH/MM3 Metamyelocytes 8 % Myelocytes 1 % Differential Comment FINAL DIFF MANUAL Toxic Granulation 1+ Dohle Bodies PRESENT Platelet Estimate LOW Platelet Morphology Comment ENLARGED Activated Partial Thromboplast Time 29.9 SEC Blood Urea Nitrogen 41 MG/DL Creatinine 0.46 MG/DL Random Glucose 189 MG/DL Total Protein 4.4 GM/DL Albumin 1.1 GM/DL Calcium Level 7.6 MG/DL Alkaline Phosphatase 623 U/L Aspartate Amino Transf (AST/SGOT) 56 U/L Alanine Aminotransferase (ALT/SGPT) 263 U/L Total Bilirubin 0.6 MG/DL Sodium Level 149 MEQ/L Potassium Level 3.6 MEQ/L Chloride Level 115 MEQ/L Carbon Dioxide Level 22.6 MEQ/L Anion Gap 11 MEQ/L Estimat Glomerular Filtration Rate 184 ML/MIN Imaging Last Impressions Upper Extremity Ultrasound 09/10/17 0000 Signed Impressions: CONCLUSION: 1. The study is negative for bilateral upper extremity deep venous thrombosis. Liver Ultrasound 09/09/17 Signed Impressions: CONCLUSION: 1. There is some thickening of the gallbladder wall at 4 mm. There is a trace of fluid adjacent to the gallbladder. This can be seen with chronic gallbladder disease. No definite gallstones or biliary tract obstruction. 2. Mild prominence of the pancreatic duct at 2 mm. 3. 9 mm right renal cyst. Chest X-Ray 09/08/17 0600 Signed Impressions: CONCLUSION: Bibasilar, right worse than left, areas of consolidation or atelectasis which a ppear worse on the current exam. Abdomen X-Ray 09/03/17 Signed Impressions: CONCLUSION: Nasogastric tube in good position. Nonspecific bowel gas pattern. CT Angiography 08/13/17 Signed Impressions: Service Date/Time: Sunday, August 13, 2017 07:25 - CONCLUSION: 1. No CT evidence for pulmonary embolism as questioned. 2. Moderate to severe upper lobe predominant centrilobular emphysema. 3. Patchy bibasilar groundglass opacities likely reflecting atelectasis although differential considerations include aspiration. 4. Multiple 4-6mm bilateral groundglass and solid nodules, likely infectious/inflammatory. Recommend followup CT examination in approximately 6 months per 2017 Fleischner criteria (6mm nodule). Steve Barajas MD Objective Remarks GENERAL: Patient is 66 yo intubated SKIN: Warm and dry. HEAD: Normocephalic. EYES: No scleral icterus. No injection or drainage. NECK: Supple, trachea midline. No JVD or lymphadenopathy. CARDIOVASCULAR: Regular rate and rhythm without murmurs, gallops, or rubs. RESPIRATORY: Breath sounds equal bilaterally. No accessory muscle use. GASTROINTESTINAL: Abdomen soft, non-tender, nondistended. MUSCULOSKELETAL: No cyanosis, or edema. Neuro: Intubated A/P Assessment and Plan Assessment: Acute on chronic hypoxic and hypercarbic respiratory failure Acute metabolic encephalopathy Severe sepsis Acute COPD exacerbation NSTEMI Pseudomonas pneumonia Suspected aspiration SVT MRSA Ventilator associated pneumonia Advanced COPD/emphysema Anemia CAD History of cardiomyopathy Diabetes Hyperlipidemia Hypertension Paroxysmal atrial fibrillation. Peripheral vascular disease Plan: Neuro: - Monitor neuro status. CV: SVT- s/p Lopressor and Adenosine Neosyn if needed to keep MAP>65mmHg For repeat 2D limited echo r/o vegetations Echo showed EF 50-55% on 08/15 On Rythmol 150mg Q8, Midodrine 10mg Q8, hold Lopressor and Imdur -Holding heparin and Coumadin since 08/19 in view of hemoptysis currently. Continue Lovenox 40 mg sq daily -Continue aspirin. Cardiology Dr. Gary. Pulmonary: -Continue with vent support keep sats >92%- Intubated 09/01 Bronchodilators, ICU vent bundle, Taper steroids- solumederol 40mg Q12 -CT of the chest showed severe emphysema and pneumonia -For trach today GI/liver: Elevated LFT's ( trending down) Monitor LFT's, US liver: There is some thickening of the gallbladder wall at 4 mm. There is a trace of fluid adjacent to the gallbladder. This can be seen with chronic gallbladder disease. No definite gallstones or biliary tract obstruction. Mild prominence of the pancreatic duct at 2 mm. 9 mm right renal cyst. Hepatitis profile -non reactive -NPO for trach and PEG tube placement today Renal/: Hypernatremia -Monitor renal function , I/O's, electrolytes replacement as needed -Change ree water 250ml Q8 monitor sodium level. - Lasix 40mg BID ID: Fungemia UTI- Yudi species -On Micafungin,. Follow up on blood cultures from 09/10 -Consult Ophtha r/o endophthalmitis ID is following Endocrine: -On SSI for glycemic control Heme: Anemia Thrombocytopenia -Monitor CBC and coags. Hep PLT negative for HIT Prophylaxis: -Pepcid/SCDs. Lovenox on hold Lines: Left IJ CVP placed on 09/08. Doppler US UE negative for DVT CCT 30 mins Jemima Brennan MD Sep 11, 2017 10:37
[2017-09-11] MEDS ORDERED: MIDAZOLAM HCL 5 MG/5 ML VIAL IV PUSH ONE (10:45)
[2017-09-11] MEDS ORDERED: fentaNYL CITRATE 250 MCG/5 ML AMP IV PUSH ONE (10:45)
[2017-09-11] MEDS ORDERED: VECURONIUM BROMIDE 10 MG VIAL IV PUSH ONE (12:00)
[2017-09-11] MEDS: MICAFUNGIN INJ 150 MG in SODIUM CHLORIDE 0.9% INJ 100 ML IV SCH (12:59)
--- NOTE | 2017-09-11 13:59 | PD.CONS ---
History of Present Illness Service Ophthalmology Consult Requested By Reason for Consult rule out fungal endophthalmitis Primary Care Physician Unknown Diagnoses: History of Present Illness 66-year-old male with past medical history of nonischemic cardiomyopathy with EF 25%, diabetes mellitus, COPD, CAD s/p CABG, HTN, peripheral vascular disease status post left below-knee amputation in the past. Presented to the ED with acute onset of shortness of breath and altered mental status. Patient is in the ICU currently intubated. Blood culture positive for Yudi. Ophthalmology called to rule out fungal endophthalmitis. Past Family Social History Allergies: Coded Allergies: cefaclor (Verified Allergy, Intermediate, rash, 06/28/17) Physical Exam Vital Signs Vital Signs Date Time Temp Pulse Resp B/P (MAP) Pulse Ox O2 Delivery O2 Flow Rate FiO2 09/11/17 12:40 99 35 09/11/17 10:00 99 09/11/17 08:00 100.9 119 19 89/58 (68) 99 09/11/17 08:00 35 09/11/17 08:00 119 09/11/17 07:21 98 35 09/11/17 06:00 110 09/11/17 04:29 99 35 09/11/17 04:00 116 09/11/17 04:00 35 09/11/17 04:00 98.7 116 51 102/58 (73) 100 09/11/17 03:38 121 98/60 09/11/17 02:00 113 09/11/17 00:00 116 09/11/17 00:00 98.5 116 54 118/64 (82) 98 09/11/17 00:00 35 09/10/17 23:27 100 35 09/10/17 22:00 121 09/10/17 21:00 123 21 85/54 (64) 99 09/10/17 20:47 125 23 79/52 (61) 99 09/10/17 20:45 124 22 76/54 (61) 97 09/10/17 20:30 123 21 96/53 (67) 98 09/10/17 20:15 124 23 95/57 (70) 98 09/10/17 20:00 124 09/10/17 20:00 35 09/10/17 20:00 100.0 124 31 83/52 (62) 98 6/5/18 20:00 124 83/52 6/5/18 19:21 99 40 6/5/18 19:00 113 105/65 6/5/18 18:15 111 6/5/18 18:00 111 6/5/18 17:45 106 6/5/18 17:30 104 6/5/18 17:15 105 6/5/18 17:00 103 6/5/18 16:45 102 6/5/18 16:45 102 19 115/72 (86) 100 6//18 16:30 103 6/5/18 16:30 103 19 115/72 (86) 100 6//18 16:15 100 40 6/5/18 16:15 100 24 117/70 (86) 100 6//18 16:15 100 6//18 16:00 101 6//18 16:00 35 6//18 16:00 99.8 101 17 116/66 (83) 100 6//18 15:45 103 6//18 15:45 103 19 103/58 (73) 100 6//18 15:42 103 128/77 6//18 15:30 103 18 128/77 (94) 100 6//18 15:30 103 6//18 15:15 96 6//18 15:00 97 6//18 15:00 97 17 114/73 (87) 100 6//18 14:45 98 6/5/18 14:45 98 18 110/71 (84) 100 6//18 14:30 100 20 114/74 (87) 100 6//18 14:30 100 6//18 14:20 101 19 122/76 (91) 94 6//18 14:15 101 18 100 6/5/18 14:00 106 21 92 Physical Exam Va cc at near unable EOM unable CVF unable Pupils 3-1 no APD OU IOP normal to palpation OU Anterior exam OD - normal eyelid, C/S W&Q, K clear, AC deep, pupil round, lens clear OS - normal eyelid, C/S W&Q, K clear, AC deep, pupil round, lens clear Dilated exam OD - ON s/p/f, ves normal, vit clear, retina flat OS - ON s/p/f, ves normal, vit clear, retina flat Laboratory Laboratory Tests Test 09/11/17 05:20 White Blood Count 3.6 Red Blood Count 2.86 Hemoglobin 9.0 Hematocrit 27.5 Mean Corpuscular Volume 96.0 Mean Corpuscular Hemoglobin 31.5 Mean Corpuscular Hemoglobin Concent 32.8 Red Cell Distribution Width 19.0 Platelet Count 77 Mean Platelet Volume 12.1 Neutrophils (%) (Auto) 94.6 Lymphocytes (%) (Auto) 3.9 Monocytes (%) (Auto) 1.4 Eosinophils (%) (Auto) 0.0 Basophils (%) (Auto) 0.1 Neutrophils # (Auto) 3.4 Lymphocytes # (Auto) 0.1 Monocytes # (Auto) 0.0 Eosinophils # (Auto) 0.0 Basophils # (Auto) 0.0 CBC Comment AUTO DIFF Differential Total Cells Counted 100 Neutrophils % (Manual) 46 Band Neutrophils % 39 Lymphocytes % 2 Monocytes % 4 Neutrophils # (Manual) 3.4 Metamyelocytes 8 Myelocytes 1 Differential Comment FINAL DIFF MANUAL Toxic Granulation 1+ Dohle Bodies PRESENT Platelet Estimate LOW Platelet Morphology Comment ENLARGED Activated Partial Thromboplast Time 29.9 Blood Urea Nitrogen 41 Creatinine 0.46 Random Glucose 189 Total Protein 4.4 Albumin 1.1 Calcium Level 7.6 Alkaline Phosphatase 623 Aspartate Amino Transf (AST/SGOT) 56 Alanine Aminotransferase (ALT/SGPT) 263 Total Bilirubin 0.6 Sodium Level 149 Potassium Level 3.6 Chloride Level 115 Carbon Dioxide Level 22.6 Anion Gap 11 Estimat Glomerular Filtration Rate 184 Date/Time Source Procedure Growth Status 09/10/17 12:20 Blood Peripheral Aerobic Blood Culture - Preliminary Gram Negative Kenji Resulted 09/10/17 12:20 Blood Peripheral Anaerobic Blood Culture - Preliminary NO GROWTH IN 1 DAY Resulted 08/21/17 19:30 Stool Stool Stool Occult Blood (JABIER) - Final HEMOCCULT POSITIVE Complete 09/08/17 11:15 Sputum Endotracheal Gram Stain - Final Complete 09/08/17 11:15 Sputum Culture - Final Pseudomonas Aeruginosa Complete 09/08/17 11:15 Urine Catheterized Urine Urine Culture - Final Yudi Parapsilosis Complete Result Diagram: 09/11/17 0509/11/17 05 Assessment and Plan Problem List: (1) Fungemia ICD Codes: B49 - Unspecified mycosis Plan: No fungal endophthalmitis seen on dilated exam. Cindy Rodriguez MD Sep 11, 2017 13:59
[2017-09-11] MEDS: PHENYLEPHRINE INJ 40 MG in DEXTROSE 5% IN WATE 500 ML INJ 496 ML IV PRN ×2 (15:16)
[2017-09-11] MEDS ORDERED: PILL SPLITTER OTHER PRN (15:45)
--- NOTE | 2017-09-11 17:00 | HHI.PR ---
Subjective Remarks ALERT ON VENT SUPPORT Objective Vital Signs Date Time Temp Pulse Resp B/P (MAP) Pulse Ox O2 Delivery O2 Flow Rate FiO2 09/11/17 16:08 96 35 09/11/17 15:16 105 104/55 09/11/17 14:00 93 09/11/17 12:40 99 35 09/11/17 12:00 35 09/11/17 12:00 99.9 103 53 104/59 (74) 100 09/11/17 12:00 103 09/11/17 10:00 99 09/11/17 08:00 100.9 119 19 89/58 (68) 99 09/11/17 08:00 35 09/11/17 08:00 119 09/11/17 07:21 98 35 09/11/17 06:00 110 09/11/17 04:29 99 35 09/11/17 04:00 116 09/11/17 04:00 35 09/11/17 04:00 98.7 116 51 102/58 (73) 100 09/11/17 03:38 121 98/60 09/11/17 02:00 113 09/11/17 00:00 116 09/11/17 00:00 98.5 116 54 118/64 (82) 98 09/11/17 00:00 35 09/10/17 23:27 100 35 09/10/17 22:00 121 09/10/17 21:00 123 21 85/54 (64) 99 09/10/17 20:47 125 23 79/52 (61) 99 09/10/17 20:45 124 22 76/54 (61) 97 09/10/17 20:30 123 21 96/53 (67) 98 09/10/17 20:15 124 23 95/57 (70) 98 09/10/17 20:00 124 09/10/17 20:00 35 09/10/17 20:00 100.0 124 31 83/52 (62) 98 09/10/17 20:00 124 83/52 09/10/17 19:21 99 40 09/10/17 19:00 113 105/65 09/10/17 18:15 111 09/10/17 18:00 111 09/10/17 17:45 106 09/10/17 17:30 104 09/10/17 17:15 105 09/10/17 17:00 103 I/O 09/10/17 09/10/17 09/10/17 09/11/17 09/11/17 09/11/17 07:00 15:00 23:00 07:00 15:00 23:00 Intake Total 1550 ml 228 ml 358 ml 561 ml Output Total 630 ml 650 ml 825 ml Balance 920 ml 228 ml -292 ml -264 ml IV Total 1000 ml 228 ml 108 ml 261 ml Tube Feeding 300 ml 0 ml 0 ml Other 250 ml 250 ml 300 ml Output Urine Total 450 ml 550 ml 425 ml Stool Total 180 ml 100 ml 400 ml Bladder Scan Volume Amount 300 ml Result Diagram: 09/11/17 0520 09/11/17 05 Objective Remarks GENERAL: SKIN: Warm and dry. HEAD: Atraumatic. Normocephalic. EYES: Pupils equal and round. No scleral icterus. No injection or drainage. ENT: No nasal bleeding or discharge. Mucous membranes pink and moist. NECK: Trachea midline. No JVD. CARDIOVASCULAR: Regular rate and rhythm. RESPIRATORY: No accessory muscle use. Clear to auscultation. Breath sounds equal bilaterally. GASTROINTESTINAL: Abdomen soft, non-tender, nondistended. Hepatic and splenic margins not palpable. MUSCULOSKELETAL: Extremities without clubbing, cyanosis, or edema. No obvious deformities. NEUROLOGICAL: Awake and alert. No obvious cranial nerve deficits. Motor grossly within normal limits. Five out of 5 muscle strength in the arms and legs. Normal speech. PSYCHIATRIC: Appropriate mood and affect; insight and judgment normal. Assessment and Plan Assessment and Plan IMPRESSION RESPIRATORY FAILURE COPD AFIB HTN PVD CAD PLAN VENT SUPPORT BRONCHODILATOR THERAPY WEAN OFF VENT TOLERATED Goran Zimmer MD Sep 11, 2017 17:00
[2017-09-11] MEDS: METOPROLOL TARTRATE 5 MG/5 ML VIAL IV PUSH PRN (19:03)
[2017-09-11] MEDS: oxyCODONE HCL ORAL CONC 5 MG/0.25 ML SYRINGE PO PRN (20:35)
[2017-09-11] MEDS ORDERED: SODIUM CHLORID 0.9% 500 ML INJ 500 ML IV ONE (20:45)
[2017-09-11] MEDS ORDERED: ADENOSINE IV SOLN 3 MG/ML 2 ML VIAL ONE (21:53)
[2017-09-11] MEDS ORDERED: DIGOXIN 0.5 MG/2 ML VIAL IV PUSH STA (22:05)
[2017-09-11] MEDS ORDERED: DIGOXIN 0.5 MG/2 ML VIAL ONE (22:07)
[2017-09-11] MEDS ORDERED: POTASSIUM CHLOR 40 MEQ PREMIX 100 ML IV ONE (22:15)
[2017-09-11] MEDS ORDERED: CALCIUM GLUCONATE INJ 2 GM in DEXTROSE 5% IN WATER 100ML INJ 100 ML IV ONE ×2 (22:30)
[2017-09-11] MEDS ORDERED: METOPROLOL TARTRATE 5 MG/5 ML VIAL IV PUSH PRN (22:30)
[2017-09-11 22:32] LABS: AUTOMATED NEUTROPHIL # 1.8 TH/MM3 (1.8-7.7); BASOPHIL % 0.1 % (0.0-2.0); EOSINOPHIL % 0.4 % (0.0-4.0); HEMATOCRIT 28.7 % (39.0-51.0); LYMPH % 6.8 % (9.0-44.0); LYMPHOCYTE # 0.1 TH/MM3 (1.0-4.8); MEAN CELL VOLUME 98.1 FL (80.0-100.0); MEAN CORPUSCULAR HEMOGLOBIN 30.7 PG (27.0-34.0); MEAN CORPUSCULAR HGB CONC 31.3 % (32.0-36.0); MEAN PLATELET VOLUME 11.4 FL (7.0-11.0); MONO % 0.8 % (0.0-8.0); NEUT % 91.9 % (16.0-70.0); PLATELET COUNT 46 TH/MM3 (150-450); RED BLOOD COUNT 2.92 MIL/MM3 (4.50-5.90); RED CELL DISTRIBUTION WIDTH 19.5 % (11.6-17.2); WHITE BLOOD COUNT 1.9 TH/MM3 (4.0-11.0)
[2017-09-11 22:42] LABS: BICARBONATE 18.5 MEQ/L (21.0-32.0); CALCIUM 7.6 MG/DL (8.5-10.1); CREATININE 0.71 MG/DL (0.60-1.30)
[2017-09-11 22:46] LABS: TROPONIN I 0.21 NG/ML (0.02-0.05)
[2017-09-11 23:59] LABS: BANDS 26 % (0-6); CORRECTED NUCLEATED RBC 17 /100 WBC (0-0); LYMPHOCYTES 6 % (9-44); METAMYELOCYTES 14 % (0-1); MONOCYTES 5 % (0-8); MYELOCYTES 2 % (0-0); NEUTROPHIL # MANUAL DIFF 1.7 TH/MM3 (1.8-7.7); NUCLEATED RED BLOOD CELL 17 (0-0); POLYS (SEG NEUTROPHILS) 45 % (16-70); PROMYELOCYTES 2 % (0-0)
[2017-09-12] VITALS (13 sets, daily range): BP systolic 84–101; BP diastolic 52–65; PULSE 120–128; RESP 15–37; TEMP 98.8–100; O2SAT 0–100
[2017-09-12 00:04] LABS: DOHLE BODIES PRESENT (NONE SEEN); TOXIC GRANULATION 2+ (NORMAL); TOXIC VACUOLATION PRESENT (NONE SEEN)
[2017-09-12 00:06] LABS: POLYCHROMASIA 3.8 % (0.0-1.9)
[2017-09-12] MEDS ORDERED: SODIUM CHLOR 0.9% 1000 ML INJ 1,000 ML IV ONE (02:15)
[2017-09-12] MEDS: NOREPINEPHRINE 4 MG/D5W 250 ML IV PRN ×2 (03:13→11:03)
[2017-09-12] MEDS: CHLORHEXIDINE GLUCONATE 2 % 1 PACK (2 CLOTHS) TOP SCH (04:00)
[2017-09-12] MEDS: INSULIN ASPART SUPPLEMENTAL SCALE SQ SCH ×3 (04:00→08:00)
[2017-09-12] MEDS: PANTOPRAZOLE SODIUM 40 MG VIAL IV PUSH SCH (05:50)
[2017-09-12] MEDS: MIDODRINE 5 MG TAB PO SCH (05:51)
[2017-09-12] MEDS: FREE WATER G-TUBE SCH (05:51)
[2017-09-12] MEDS: PROPAFENONE HCL 150 MG TAB PO SCH (05:51)
[2017-09-12 06:17] LABS: HEMATOCRIT 28.5 % (39.0-51.0); MEAN CORPUSCULAR HEMOGLOBIN 30.7 PG (27.0-34.0); MEAN CORPUSCULAR HGB CONC 31.6 % (32.0-36.0); MEAN PLATELET VOLUME 10.2 FL (7.0-11.0); RED BLOOD COUNT 2.94 MIL/MM3 (4.50-5.90); RED CELL DISTRIBUTION WIDTH 19.2 % (11.6-17.2)
[2017-09-12 06:27] LABS: PLATELET COUNT 18 TH/MM3 (150-450)
[2017-09-12] MEDS ORDERED: PIPERACIL-TAZO 4.5 GM PREMIX 100 ML IV SCH (06:30)
[2017-09-12 06:33] LABS: ALBUMIN 0.8 GM/DL (3.4-5.0); ALT (GPT) 122 U/L (12-78); AST (GOT) 32 U/L (15-37); BICARBONATE 19.3 MEQ/L (21.0-32.0); BLOOD UREA NITROGEN 42 MG/DL (7-18); CALCIUM 7.6 MG/DL (8.5-10.1); CHLORIDE 115 MEQ/L (98-107); CREATININE 0.57 MG/DL (0.60-1.30); GLOMERULAR FILTRATION RATE 143 ML/MIN (>89); GLUCOSE,RANDOM 160 MG/DL (74-106); SODIUM (NA) 148 MEQ/L (136-145)
[2017-09-12 06:35] LABS: ALKALINE PHOSPHATASE 380 U/L (45-117); TOTAL BILIRUBIN ADULT 0.6 MG/DL (0.2-1.0); TOTAL PROTEIN 4.1 GM/DL (6.4-8.2)
[2017-09-12] MEDS ORDERED: HYDROCORTISONE SOD SUCCINATE 100 MG VIAL IV PUSH SCH (06:45)
--- NOTE | 2017-09-12 07:13 | RADRPT ---
EXAM DATE: 09/12/2017 7:04 AM EDT AGE/SEX: 66 years / Male INDICATIONS: Shortness of breath. CLINICAL DATA: This is the patient's subsequent encounter. Patient reports that signs and symptoms h ave been present for 2 weeks and indicates a pain score of Nonresponsive. MEDICAL/SURGICAL HISTORY: Non-responsive. CABG. COMPARISON: [facility] [place], CHEST SINGLE AP, 09/08/2017. . FINDINGS: Mild bibasilar consolidation and small right pleural effusion again noted and all not significantly c hanged. No pneumothorax demonstrated. Heart size stable, within normal limits. Median sternotomy changes are again noted. Endotracheal tube tip is approximately 5 cm above the axel. Nasogastric tube courses into the stoma ch. There is a left internal jugular central venous catheter with tip in the superior vena cava. CONCLUSION: No significant change. Electronically signed by: David Cabezas MD 09/12/2017 7:12 AM EDT
[2017-09-12] MEDS: RESP: BUDESONIDE 0.5 MG/2 ML NEB NEB SCH (07:30)
--- NOTE | 2017-09-12 07:35 | PD.CARD.PN ---
Subjective Subjective Remarks Intubated. Opens eyes. Unable to answer questions. Objective Medications Item Value Date Time Norepinephrine 250 ml @ 7.5 mls/hr 09/12/17 0215 Bitartrate TITRATE PRN/IV 09/12/17 0313 Propafenone HCl 225 mg 09/11/17 2200 (Rythmol) Q8HR/PO 09/12/17 0551 Phenylephrine HCl 500 ml @ 30 mls/hr 09/10/17 1400 40 mg/Dextrose TITRATE PRN/IV 09/11/17 1516 Midodrine 10 mg 09/08/17 1100 (Proamatine) Q8HR/PO 09/12/17 0551 Vasopressin 40 100 ml @ 6 mls/hr 09/07/17 1618 units/Dextrose .[id number]/IV 09/11/17 2214 Aspirin 81 mg 08/13/17 0900 (Aspirin Chew) DAILY/CHEW Current Medications Medications (Trade) Dose Ordered Sig/Lindsey Route Start Time Stop Time Status Last Admin (D50w (Vial) Inj) 50 ml UNSCH PRN IV PUSH 08/13/17 05:30 08/26/17 04:18 (Glucagon Inj) 1 mg UNSCH PRN OTHER 08/13/17 05:30 (Brethine Inj) 1 mg UNSCH PRN SQ 08/13/17 06:15 (NS Flush) 2 ml UNSCH PRN IV FLUSH 08/13/17 07:00 09/01/17 05:21 (NS Flush) 2 ml BID IV FLUSH 08/13/17 09:00 09/11/17 21:16 (Tylenol) 650 mg Q6H PRN PO 08/13/17 07:00 09/11/17 09:30 (Pepcid) 20 mg BID TUBE 08/13/17 09:00 09/11/17 21:15 ([facility]) 1 Q361D XX 08/13/17 07:00 08/13/17 07:00 (Chlorhexidine 2% Cloth) Taper DAILY@04 TOP 08/14/17 04:00 08/10/18 03:59 09/02/17 03:36 (Chlorhexidine 2% Cloth) 3 pack UNSCH PRN TOP 08/13/17 07:00 (Aspirin Chew) 81 mg DAILY CHEW 08/13/17 09:00 09/10/17 07:33 (Pulmicort Respule Neb) 0.5 mg Q12HR NEB NEB 08/14/17 14:00 09/11/17 20:01 (Prinivil) 10 mg DAILY PO 08/15/17 09:00 Future Hold 08/21/17 07:56 (Lipitor) 40 mg HS PO 08/15/17 21:00 Future Hold 09/08/17 20:47 (Coumadin) 4 mg DAILY@16 PO 08/18/17 16:00 Future Hold 08/18/17 17:02 (Lovenox Inj) 40 mg Q24H SQ 08/20/17 10:00 Future Hold 09/08/17 08:40 (NovoLOG SUPPLEMENTAL SCALE) 1 Q4HR SQ 08/22/17 09:30 09/12/17 00:00 (Imdur) 60 mg DAILY@07 PO 08/27/17 07:00 Future Hold 08/29/17 05:09 (Duoneb Neb) 1 ampule Q2HR NEB PRN NEB 08/27/17 01:00 09/11/17 20:01 (NS Flush) DAILY IV FLUSH 08/28/17 09:00 09/11/17 08:08 (NS Flush) UNSCH PRN IV FLUSH 08/27/17 15:45 (Protonix Inj) 40 mg Q12H IV PUSH 08/28/17 06:00 09/12/17 05:50 (Levsin Liq) 0.125 mg Q4H PRN PO 08/30/17 09:30 (Peridex 0.12% Liq) 15 ml BID@08,20 MT 09/01/17 20:00 09/11/17 20:00 ([facility] Information) Patient in critical care unit? Ass... Q361D .XX 09/01/17 21:00 09/01/17 21:00 Vasopressin 40 units/Dextrose 100 ml @ 6 mls/hr [id number] IV 09/07/17 16:18 09/11/17 22:14 (Haldol Inj) 5 mg Q4H PRN IV PUSH 09/08/17 10:15 (Proamatine) 10 mg Q8HR PO 09/08/17 11:00 09/12/17 05:51 (Roxicodone Intensol Liq) 5 mg Q4H PRN PO 09/08/17 10:15 09/11/17 20:35 (Lopressor) 25 mg Q12HR PO 09/09/17 21:00 Future Hold 09/11/17 08:15 Fentanyl Citrate 250 ml @ 5 mls/hr TITRATE PRN IV 09/10/17 11:45 09/10/17 12:48 Micafungin Sodium 150 mg/Sodium Chloride 100 ml @ 100 mls/hr Q24H IV 09/10/17 13:00 09/11/17 12:59 Phenylephrine HCl 40 mg/Dextrose 500 ml @ 30 mls/hr TITRATE PRN IV 09/10/17 14:00 09/11/17 15:16 (Brethine Inj) 1 mg UNSCH PRN SQ 09/10/17 13:30 (Free Water) VOLUME OF WATER: 250 ML Q8HR G-TUBE 09/11/17 14:00 09/12/17 05:51 (Rythmol) 225 mg Q8HR PO 09/11/17 22:00 09/12/17 05:51 (Pill Splitter) 1 ea UNSCH PRN OTHER 09/11/17 15:45 (Lopressor Inj) 2.5 mg Q3HR PRN IV PUSH 09/11/17 22:30 Norepinephrine Bitartrate 250 ml @ 7.5 mls/hr TITRATE PRN IV 09/12/17 02:15 09/12/17 03:13 Piperacillin Sod/ Tazobactam Sod 100 ml @ 200 mls/hr Q6H IV 09/12/17 06:30 09/12/17 07:09 (SoluCORTEF INJ) 100 mg Q8HR IV PUSH 09/12/17 06:45 09/12/17 07:07 Vital Signs / I&O Vital Signs Date Time Temp Pulse Resp B/P (MAP) Pulse Ox O2 Delivery O2 Flow Rate FiO2 09/12/17 06:00 98.8 127 37 84/58 (67) 98 09/12/17 06:00 127 09/12/17 04:17 97 35 09/12/17 04:00 120 09/12/17 04:00 99.0 120 24 95/58 (70) 97 09/12/17 04:00 35 6/7/18 03:13 123 78/54 618 02:00 125 618 01:33 130 81/50 6/18 00:18 100 35 618 00:00 98.9 128 31 98/52 (67) 100 18 00:00 35 618 00:00 128 18 00:00 98.9 618 22:14 120 95/54 6 22:00 122 6 21:59 121 18 21:54 168 18 21:52 172 09/11/17 21:50 168 09/11/17 21:48 164 09/11/17 21:46 165 09/11/17 21:45 166 09/11/17 21:44 164 09/11/17 21:40 172 09/11/17 21:35 128 09/11/17 21:35 18 09/11/17 21:34 132 68/41 09/11/17 21:30 131 09/11/17 21:15 131 09/11/17 21:00 129 18 20:18 129 80/53 6 20:06 91 35 09/11/17 20:00 99.5 129 44 91/52 (65) 90 09/11/17 20:00 129 09/11/17 20:00 35 09/11/17 18:00 129 09/11/17 16:08 96 35 09/11/17 16:00 35 09/11/17 16:00 114 09/11/17 16:00 100.6 114 38 106/58 (74) 96 18 15:16 105 104/55 6 14:00 93 09/11/17 12:40 99 35 618 12:00 35 618 12:00 99.9 103 53 104/59 (74) 100 18 12:00 103 18 10:00 99 18 08:00 100.9 119 19 89/58 (68) 99 618 08:00 35 09/11/17 08:00 119 I/O 66/18 66/18 6/6/18 6/10/2309/12/17 09/12/17 07:00 15:00 23:00 07:00 15:00 23:00 Intake Total 561 ml 1077 ml 894 ml Output Total 825 ml 500 ml 550 ml Balance -264 ml 577 ml 344 ml IV Total 261 ml 500 ml 220 ml Tube Feeding 0 ml 77 ml 174 ml Other 300 ml 500 ml 500 ml Output Urine Total 425 ml 500 ml 550 ml Stool Total 400 ml 0 ml 0 ml Physical Exam GENERAL: Well developed, well nourished. Intubated. HEENT: Jugular venous pressure is normal. CHEST: Clear lungs anteriorly. CARDIAC: Irregular rate and rhythm without S3, S4, or murmur. ABDOMEN: Soft, no hepatosplenomegaly. Bowel sounds present. EXTREMITIES: SCD in place on the right. Status post left BKA. Laboratory Laboratory Tests Test 09/11/17 21:45 09/11/17 22:00 09/11/17 22:20 09/12/17 00:52 Blood Gas Puncture Site RT RADIAL Blood Gas Patient Temperature 98.6 Blood Gas HCO3 18 mmol/L Blood Gas Base Excess -6.4 mmol/L Blood Gas Oxygen Saturation 88 % Arterial Blood pH 7.34 Arterial Blood Partial Pressure CO2 35 mmHg Arterial Blood Partial Pressure O2 68 mmHg Arterial Blood Oxygen Content 11.7 Vol % Arterial Blood Carboxyhemoglobin 1.4 % Arterial Blood Methemoglobin 1.2 % Blood Gas Hemoglobin 9.4 G/DL Oxygen Delivery Device VENTILATOR Blood Gas Ventilator Setting PRVC/AC Blood Gas Inspired Oxygen 35 % Blood Urea Nitrogen 43 MG/DL 42 MG/DL Creatinine 0.71 MG/DL 0.57 MG/DL Random Glucose 186 MG/DL 160 MG/DL Calcium Level 7.6 MG/DL 7.6 MG/DL Sodium Level 146 MEQ/L 148 MEQ/L Potassium Level 3.7 MEQ/L 4.1 MEQ/L Chloride Level 113 MEQ/L 115 MEQ/L Carbon Dioxide Level 18.5 MEQ/L 19.3 MEQ/L Anion Gap 15 MEQ/L 14 MEQ/L Estimat Glomerular Filtration Rate 111 ML/MIN 143 ML/MIN Troponin I 0.21 NG/ML White Blood Count 1.9 TH/MM3 2.0 TH/MM3 Red Blood Count 2.92 MIL/MM3 2.94 MIL/MM3 Hemoglobin 9.0 GM/DL 9.0 GM/DL Hematocrit 28.7 % 28.5 % Mean Corpuscular Volume 98.1 FL 97.0 FL Mean Corpuscular Hemoglobin 30.7 PG 30.7 PG Mean Corpuscular Hemoglobin Concent 31.3 % 31.6 % Red Cell Distribution Width 19.5 % 19.2 % Platelet Count 46 TH/MM3 18 TH/MM3 Mean Platelet Volume 11.4 FL 10.2 FL Neutrophils (%) (Auto) 91.9 % Lymphocytes (%) (Auto) 6.8 % Monocytes (%) (Auto) 0.8 % Eosinophils (%) (Auto) 0.4 % Basophils (%) (Auto) 0.1 % Neutrophils # (Auto) 1.8 TH/MM3 Lymphocytes # (Auto) 0.1 TH/MM3 Monocytes # (Auto) 0.0 TH/MM3 Eosinophils # (Auto) 0.0 TH/MM3 Basophils # (Auto) 0.0 TH/MM3 CBC Comment AUTO DIFF AUTO DIFF Differential Total Cells Counted 100 Neutrophils % (Manual) 45 % Band Neutrophils % 26 % Lymphocytes % 6 % Monocytes % 5 % Neutrophils # (Manual) 1.7 TH/MM3 Metamyelocytes 14 % Myelocytes 2 % Promyelocytes 2 % Nucleated Red Blood Cells 17 /100 WBC Differential Comment FINAL DIFF MANUAL Toxic Granulation 2+ Toxic Vacuolation PRESENT Dohle Bodies PRESENT Platelet Estimate LOW Platelet Morphology Comment ENLARGED Polychromasia 3.8 % Activated Partial Thromboplast Time 39.4 SEC Total Protein 4.1 GM/DL Albumin 0.8 GM/DL Alkaline Phosphatase 380 U/L Aspartate Amino Transf (AST/SGOT) 32 U/L Alanine Aminotransferase (ALT/SGPT) 122 U/L Total Bilirubin 0.6 MG/DL Imaging Last 24 hours Impressions Chest X-Ray 09/12/17 0000 Signed Impressions: CONCLUSION: No significant change. Assessment and Plan Problem List: (1) Wide QRS ventricular tachycardia ICD Codes: I47.2 - Ventricular tachycardia Status: Acute Plan: Now in atrial fibrillation, similar QRS complexes to regular wide complex tachyarrhythmias he has had. REC continue propafenone, consider Amiodarone now that hepatic indices improved (2) CAD (coronary artery disease) ICD Codes: I25.10 - Coronary artery disease Status: Chronic Plan: Doing poorly. Hypotensive and back on pressor support. Possible NSTEMI on admission. Echo technically limited, appears to have normal LV function, EF about 55%. May also have right ventricular hypertrophy with normal RV function. REC continue aspirin continue pressor support patient very poor candidate for invasive cardiac evaluation at this point (3) Paroxysmal atrial fibrillation ICD Codes: I48.0 - Paroxysmal atrial fibrillation Status: Chronic Plan: Patient now in atrial fib, mostly rapid rates, and on pressor support. Patient poor candidate now for oral anticoagulation therapy. Continue propafenone, consider Amiodarone now that hepatic indices improved. (4) Cardiomyopathy ICD Codes: I42.9 - Cardiomyopathy, unspecified Status: Resolved Plan: Prior history of EF 25%. No definite acute CHF. Echo this admission technically limited, appears to have normal LV function, EF about 55%. REC no new recommendations at this point Code Status full code Problem Qualifiers (1) CAD (coronary artery disease): Qualified Codes: I25.119 - Atherosclerotic heart disease of [place] coronary artery with unspecified angina pectoris (2) Cardiomyopathy: Qualified Codes: I42.9 - Cardiomyopathy, unspecified Rich Gary MD Sep 12, 2017 07:35
[2017-09-12] MEDS: PHENYLEPHRINE INJ 40 MG in DEXTROSE 5% IN WATE 500 ML INJ 496 ML IV PRN ×4 (07:39→11:21)
--- NOTE | 2017-09-12 07:47 | HHI.CCPN ---
Subjective Remarks/Hospital Course 66-year-old male who was brought to the ER after he developed shortness of breath and altered mental status. At retirement he was placed on nasal cannula 2 L because of his history of COPD as he uses it off and on. EMS was called when patient developed agonal respirations with O2 sats in the low 80s on their arrival with pink frothy sputum. Patient was intubated in the field after receiving etomidate and Versed. His systolic blood pressure was 190s following intubation and dropped to the 60 systolic range and he was started on dopamine in the field by EMS. He was brought to the ER at [facility] and noted to have elevated troponin on his admitting labs. He was accepted for admission by critical care medicine service. He underwent a CT chest to evaluate for PE which was negative for PE however did show severe emphysematous changes with groundglass opacities. History is significantly limited by the fact that he is intubated. When I evaluated the patient he was sedated, orally intubated on mechanical ventilation. History was obtained by reviewing records. SUBJ 08/14/17: Remains intubated sedated, a CPAP was attempted but patient failed almost immediately with severe tachypnea. Continues to have bilateral expiratory wheezing and diminished air entry. Initial troponin was 3.18 now down trending 08/15/17: Patient remains intubated sedated with Versed and fentanyl. On sedation hold wakes up easily follows commands. On attempted CPAP patient became tachypneic with labored breathing using accessory muscles. Not ready for extubation. Pseudomonas growing in sputum. Increase Azactam to 2 g IV every 8 hours 08/16/17: Tolerating CPAP trials better today. Sputum culture growing Pseudomonas pansensitive. Will attempt to extubate with BiPAP use if needed 08/17/17: Reintubated yesterday evening following severe respiratory distress and severe wheezing. Currently remains sedated on vent support. Persistent wheezing. 08/18: Remains intubated sedated. Will initiate CPAP trials again. Patient has severe emphysema and will be difficult to wean to extubate. Wheezing persists. 08/19: Remains sedated, orally intubated on mechanical ventilation. Significant bloody respiratory secretions being suctioned from ET tube. On heparin for anticoagulation. Will hold Coumadin. 08/20: Sedated, arousable, orally intubated on mechanical ventilation. Failing CPAP trials. Heparin held yesterday due to increasing bloody respiratory secretions. 08/21: Remains sedated wakes up easily. Failed CPAP trial immediately today due to tachypnea and respiratory distress. No significant bloody secretions. Chest x-ray was clear. I discussed briefly with daughter. Poly Salcedo about possibility of trach. She needs more time to decide and needs time to discuss with family. I have consulted palliative care to address goals of care. Vent day 9 today. With his some advanced emphysema it will be difficult to wean him off the ventilator without tracheostomy 08/22: Patient is more critical becoming more septic. White count yesterday was 27.5. Today he spiked fever 101.3, tachycardic heart rate in 120s borderline hypotensive.. Chest x-ray shows developing left base infiltrate. Will continue cefepime panculture ordered. Vancomycin 1.25 g 1 and pharmacy to dose. Normal saline bolus 2 L ordered. 08/23: T-max 100.0. Hemoglobin downtrending now 7.2. Patient continues to be borderline hypotensive, monitor Hgb. Patient was tentatively scheduled for percutaneous tracheostomy this a.m. however unable to obtain consent from family members. Sodium level starting to downtrend with addition of free water flushes. 08/24: Hemodynamically stable throughout the night. Transfusion 1 unit of packed cells placed on hold with cancellation percutaneous tracheostomy due to lack of consent. H&H pending this afternoon, will transfuse for hemoglobin less than 7. Patient awake continuing on CPAP for greater than 4 hours today. 08/25: more awake. passed SBT. discussion with family and patient: he would want to be re-intubated and pursue tracheostomy if he fails again. 08/26: remained extubated. denies complaints. high risk for reintubation. wants aggressive care and tracheostomy if re-intubated. 09/01: Critical care reconsulted for worsening respiratory status. Patient was transferred to the ICU from the floor due to increasing O2 requirement and placed on a nonrebreather facemask. He was reportedly tachypneic using accessory muscles of respiration. There was some concern regarding aspiration. I evaluated the patient following his arrival to the ICU. He was breathing in the 30s using accessory muscles of respiration on a nonrebreather facemask. He is awake however not really able to give me details of history due to respiratory distress. Patient will be placed on BiPAP and Precedex in order to avoid intubation. He does have significantly advanced COPD and recently completed a course of antibiotics. Will restart empiric antibiotics with Zyvox/ Levaquin/Flagyl IV. 09/02: Patient was intubated yesterday(09/01) for worsening respiratory distress despite BiPAP and placed on mechanical ventilation. Remains sedated, orally intubated on mechanical ventilation. On Levophed for pressor support. Hemoglobin 7.5 this morning. 2 units PRBCs ordered to be transfused. Borderline elevated troponin noted. 09/03: Remains sedated, orally intubated on mechanical ventilation. Off levophed. 2 units PRBCs transfused yesterday 09/04: Sedated, arousable, orally intubated on mechanical ventilation. Tolerating tube feeds. Failed CPAP trials. 09/05: Remains sedated, orally intubated on mechanical ventilation. Tolerating tube feeds. Failing CPAP trials. 09/06: Sedated, arousable, orally intubated on mechanical ventilation. Failed CPAP trials. 09/07: Sedated, arousable, orally intubated on mechanical ventilation. Failing CPAP trials. Will need tracheostomy and PEG tube placement as family desires aggressive care. Palliative care and discussions with family. 09/08: no improvements at all. febrile again today. juarez-cultured. central line removed and replaced. long discussion with daughter: needs trach/PEG, LTAC. 09/09 Patient went into SVT HR 170-180's overnight given Lopressor, adenosine and placed on Esmolol drip. Also received1 L NS for decrease UOP. On Vasopressin 0.04. 09/10 Patient remains intubated no recurrent SVT. T:100.3 this morning, off vasopressin and esmolol drip. For trach and PEG tube placements today. 09/11 Patient had nonsustained wide complex tachycardia suggestive of aberrantly conducted SVT yesterday now in NSR HR 100. T:100.9 09/12 Patient went into Afib last night given Digoxin also became hypotensive given 1.5L requiring multiple pressors ( Levo, Neosy, Vasopressin) PLT dropped 18 this morning. Objective Vital Signs Date Time Temp Pulse Resp B/P (MAP) Pulse Ox O2 Delivery O2 Flow Rate FiO2 09/12/17 06:00 98.8 127 37 84/58 (67) 98 09/12/17 04:17 35 Intake and Output 09/12/17 09/12/17 09/13/17 08:00 16:00 00:00 Intake Total 774 ml Output Total 550 ml Balance 224 ml Result Diagram: 09/12/17 0052 09/12/17 0052 Other Results Laboratory Tests Test 09/11/17 21:45 09/11/17 22:00 09/11/17 22:20 09/12/17 00:52 Blood Gas Puncture Site RT RADIAL Blood Gas Patient Temperature 98.6 Blood Gas HCO3 18 mmol/L Blood Gas Base Excess -6.4 mmol/L Blood Gas Oxygen Saturation 88 % Arterial Blood pH 7.34 Arterial Blood Partial Pressure CO2 35 mmHg Arterial Blood Partial Pressure O2 68 mmHg Arterial Blood Oxygen Content 11.7 Vol % Arterial Blood Carboxyhemoglobin 1.4 % Arterial Blood Methemoglobin 1.2 % Blood Gas Hemoglobin 9.4 G/DL Oxygen Delivery Device VENTILATOR Blood Gas Ventilator Setting PRVC/AC Blood Gas Inspired Oxygen 35 % Blood Urea Nitrogen 43 MG/DL 42 MG/DL Creatinine 0.71 MG/DL 0.57 MG/DL Random Glucose 186 MG/DL 160 MG/DL Calcium Level 7.6 MG/DL 7.6 MG/DL Sodium Level 146 MEQ/L 148 MEQ/L Potassium Level 3.7 MEQ/L 4.1 MEQ/L Chloride Level 113 MEQ/L 115 MEQ/L Carbon Dioxide Level 18.5 MEQ/L 19.3 MEQ/L Anion Gap 15 MEQ/L 14 MEQ/L Estimat Glomerular Filtration Rate 111 ML/MIN 143 ML/MIN Troponin I 0.21 NG/ML White Blood Count 1.9 TH/MM3 2.0 TH/MM3 Red Blood Count 2.92 MIL/MM3 2.94 MIL/MM3 Hemoglobin 9.0 GM/DL 9.0 GM/DL Hematocrit 28.7 % 28.5 % Mean Corpuscular Volume 98.1 FL 97.0 FL Mean Corpuscular Hemoglobin 30.7 PG 30.7 PG Mean Corpuscular Hemoglobin Concent 31.3 % 31.6 % Red Cell Distribution Width 19.5 % 19.2 % Platelet Count 46 TH/MM3 18 TH/MM3 Mean Platelet Volume 11.4 FL 10.2 FL Neutrophils (%) (Auto) 91.9 % Lymphocytes (%) (Auto) 6.8 % Monocytes (%) (Auto) 0.8 % Eosinophils (%) (Auto) 0.4 % Basophils (%) (Auto) 0.1 % Neutrophils # (Auto) 1.8 TH/MM3 Lymphocytes # (Auto) 0.1 TH/MM3 Monocytes # (Auto) 0.0 TH/MM3 Eosinophils # (Auto) 0.0 TH/MM3 Basophils # (Auto) 0.0 TH/MM3 CBC Comment AUTO DIFF AUTO DIFF Differential Total Cells Counted 100 Neutrophils % (Manual) 45 % Band Neutrophils % 26 % Lymphocytes % 6 % Monocytes % 5 % Neutrophils # (Manual) 1.7 TH/MM3 Metamyelocytes 14 % Myelocytes 2 % Promyelocytes 2 % Nucleated Red Blood Cells 17 /100 WBC Differential Comment FINAL DIFF MANUAL Toxic Granulation 2+ Toxic Vacuolation PRESENT Dohle Bodies PRESENT Platelet Estimate LOW Platelet Morphology Comment ENLARGED Polychromasia 3.8 % Activated Partial Thromboplast Time 39.4 SEC Total Protein 4.1 GM/DL Albumin 0.8 GM/DL Alkaline Phosphatase 380 U/L Aspartate Amino Transf (AST/SGOT) 32 U/L Alanine Aminotransferase (ALT/SGPT) 122 U/L Total Bilirubin 0.6 MG/DL Imaging Last Impressions Chest X-Ray 09/12/17 Signed Impressions: CONCLUSION: No significant change. Upper Extremity Ultrasound 09/10/17 Signed Impressions: CONCLUSION: 1. The study is negative for bilateral upper extremity deep venous thrombosis. Liver Ultrasound 09/09/17 Signed Impressions: CONCLUSION: 1. There is some thickening of the gallbladder wall at 4 mm. There is a trace of fluid adjacent to the gallbladder. This can be seen with chronic gallbladder disease. No definite gallstones or biliary tract obstruction. 2. Mild prominence of the pancreatic duct at 2 mm. 3. 9 mm right renal cyst. Abdomen X-Ray 09/03/17 Signed Impressions: CONCLUSION: Nasogastric tube in good position. Nonspecific bowel gas pattern. CT Angiography 08/13/17 Signed Impressions: Service Date/Time: Sunday, August 13, 2017 07:25 - CONCLUSION: 1. No CT evidence for pulmonary embolism as questioned. 2. Moderate to severe upper lobe predominant centrilobular emphysema. 3. Patchy bibasilar groundglass opacities likely reflecting atelectasis although differential considerations include aspiration. 4. Multiple 4-6mm bilateral groundglass and solid nodules, likely infectious/inflammatory. Recommend followup CT examination in approximately 6 months per 2017 Fleischner criteria (6mm nodule). Steve Barajas MD Objective Remarks GENERAL: Patient is 66 yo intubated SKIN: Warm and dry. HEAD: Normocephalic. EYES: No scleral icterus. No injection or drainage. NECK: Supple, trachea midline. No JVD or lymphadenopathy. CARDIOVASCULAR: Regular rate and rhythm without murmurs, gallops, or rubs. RESPIRATORY: Breath sounds equal bilaterally. No accessory muscle use. GASTROINTESTINAL: Abdomen soft, non-tender, nondistended. MUSCULOSKELETAL: No cyanosis, or edema. Neuro: Intubated A/P Assessment and Plan Assessment: Acute on chronic hypoxic and hypercarbic respiratory failure Acute metabolic encephalopathy Septic shock Acute COPD exacerbation NSTEMI Pseudomonas pneumonia Suspected aspiration SVT MRSA Ventilator associated pneumonia Advanced COPD/emphysema Anemia CAD History of cardiomyopathy Diabetes Hyperlipidemia Hypertension Paroxysmal atrial fibrillation. Peripheral vascular disease Plan: Neuro: - Monitor neuro status. CV: SVT- s/p Lopressor and Adenosine Continue with pressors ( Levophed, Neosyn, Vasopressin) keep MAP>65mmHg Stress dose steroids- chnage to HC 100mg IV Q8 Check Lactic acid level. For repeat 2D limited echo r/o vegetations Echo showed EF 50-55% on 08/15 On Rythmol 150mg Q8, Midodrine 10mg Q8, -Holding heparin and Coumadin since 08/19 in view of hemoptysis currently. Continue Lovenox 40 mg sq daily -Continue aspirin. Cardiology Dr. Gary. Pulmonary: -Continue with vent support keep sats >92%- Intubated 09/01 Bronchodilators, ICU vent bundle, stress dose steroids- HC 100mg Q8 -CXR : Mild bibasilar consolidation Check ABG Trach placed on hold due to SVT and hemodynamic instability GI/liver: Elevated LFT's ( trending down) Monitor LFT's, US liver: There is some thickening of the gallbladder wall at 4 mm. There is a trace of fluid adjacent to the gallbladder. This can be seen with chronic gallbladder disease. No definite gallstones or biliary tract obstruction. Mild prominence of the pancreatic duct at 2 mm. 9 mm right renal cyst. Hepatitis profile -non reactive -NPO for now Renal/: Hypernatremia -Monitor renal function , I/O's, electrolytes replacement as needed - Free water 250ml Q8 monitor sodium level. - d/c Lasix, place on 1/2NS@100ml/hr ID: Fungemia Gram negative bacteremia UTI- Yudi species -On Micafungin, Merrem 1gram IV Q8. blood cultures from 09/10: GNR, check BC x 2 sets today -Seen by Ophtha no evidence of endophthalmitis ID is following Endocrine: -On SSI for glycemic control Heme: Anemia Thrombocytopenia -Monitor CBC, check coags and Fibrinogen level r/o DIC. Will transfuse 1unit PLT phereses for PLT count 17 Hep PLT negative for HIT Prophylaxis: -Pepcid/SCDs. Lovenox on hold Lines: Left IJ CVP placed on 09/08. Doppler US UE negative for DVT Patient is critically ill with resp failure, SVT, septic shock on multiple pressors, gram negative bacteremia, Fungemia and DIC. Palliative care is following. Discussed with Patient's daughter Poly Salcedo and updated her on his condition. Prognosis guarded 1230 Addendum: Family met with palliative care and elected to transition to comfort care and withdrawal life support. CCT 40 mins Jemima Brennan MD Sep 12, 2017 07:47
[2017-09-12] MEDS ORDERED: ASP: Documented allergy to Penicillins or Cephalosporins ONE (08:00)
[2017-09-12] MEDS ORDERED: MEROPENEM 1,000 MG/NS 100 ML IV SCH ×2 (08:00)
[2017-09-12] MEDS ORDERED: SODIUM CHLOR 0.45% 1000 ML INJ 1,000 ML IV SCH (08:00)
[2017-09-12] MEDS: FAMOTIDINE 20 MG TAB TUBE SCH (08:01)
[2017-09-12] MEDS: CHLORHEXIDINE 0.12% (ORAL KIT) 15 ML CUP MT SCH (08:02)
[2017-09-12] MEDS: ASPIRIN 81 MG CHEW TAB CHEW SCH (08:02)
[2017-09-12 08:03] LABS: HEMATOCRIT 28.7 % (39.0-51.0); MEAN CELL VOLUME 97.4 FL (80.0-100.0); MEAN CORPUSCULAR HEMOGLOBIN 30.6 PG (27.0-34.0); MEAN CORPUSCULAR HGB CONC 31.5 % (32.0-36.0); MEAN PLATELET VOLUME 10.3 FL (7.0-11.0); RED BLOOD COUNT 2.95 MIL/MM3 (4.50-5.90); RED CELL DISTRIBUTION WIDTH 19.4 % (11.6-17.2); WHITE BLOOD COUNT 2.4 TH/MM3 (4.0-11.0)
[2017-09-12] MEDS: SODIUM CHLORIDE 0.9% FLUSH 10 ML FLUSH IV FLUSH SCH ×2 (08:04)
[2017-09-12 08:11] LABS: PLATELET COUNT 17 TH/MM3 (150-450)
[2017-09-12 08:16] LABS: INTERNATIONAL NORMALIZED RATIO 1.7 RATIO; PROTHROMBIN TIME - PATIENT 17.2 SEC (9.8-11.6)
[2017-09-12 08:18] LABS: BANDS 50 % (0-6); CORRECTED NUCLEATED RBC 26 /100 WBC (0-0); DOHLE BODIES PRESENT (NONE SEEN); LYMPHOCYTES 3 % (9-44); METAMYELOCYTES 6 % (0-1); MONOCYTES 13 % (0-8); MYELOCYTES 4 % (0-0); NEUTROPHIL # MANUAL DIFF 1.7 TH/MM3 (1.8-7.7); NUCLEATED RED BLOOD CELL 26 (0-0); POLYS (SEG NEUTROPHILS) 24 % (16-70); TOXIC GRANULATION 1+ (NORMAL); TOXIC VACUOLATION PRESENT (NONE SEEN)
[2017-09-12 08:22] LABS: FIBRINOGEN GREATER THAN 860 mg/dL (227-377)
[2017-09-12] MEDS ORDERED: SODIUM BICARBONATE 8.4% INJ 50 MEQ/50 ML SYR IV PUSH ONE (08:45)
[2017-09-12 08:56] LABS: BANDS 28 % (0-6); CORRECTED NUCLEATED RBC 22 /100 WBC (0-0); LYMPHOCYTES 10 % (9-44); METAMYELOCYTES 20 % (0-1); MONOCYTES 13 % (0-8); MYELOCYTES 7 % (0-0); NEUTROPHIL # MANUAL DIFF 1.8 TH/MM3 (1.8-7.7); NUCLEATED RED BLOOD CELL 22 (0-0); POLYS (SEG NEUTROPHILS) 21 % (16-70)
[2017-09-12 08:57] LABS: TOXIC GRANULATION 2+ (NORMAL)
[2017-09-12 08:58] LABS: DOHLE BODIES PRESENT (NONE SEEN); KERATOCYTES OCC (NORMAL); TOXIC VACUOLATION PRESENT (NONE SEEN)
[2017-09-12] MEDS: VASOPRESSIN INJ 40 UNITS in DEXTROSE 5% IN WATER 100ML INJ 98 ML IV SCH ×2 (10:23)
[2017-09-12] MEDS ORDERED: MORPHINE SULFATE 8 MG/ML INJ IV PUSH ONE (12:00)
[2017-09-12] MEDS ORDERED: HYOSCYAMINE 0.5 MG/ML AMP IV PUSH ONE (12:00)
[2017-09-12] MEDS ORDERED: LORazepam 2 MG/ML VIAL IV PUSH ONE ×2 (12:00→12:30)
--- NOTE | 2017-09-12 12:19 | HHI.PR ---
cc: Mendoza Shearer MD Subjective Subjective Notes Intubated Patient having runs of atrial fib today Breathing not synchronized with the vent Plt low--- receiving transfusion now Objective Vitals/I&O Vital Signs Date Time Temp Pulse Resp B/P (MAP) Pulse Ox O2 Delivery O2 Flow Rate FiO2 09/12/17 11:21 124 99/65 09/12/17 10:48 100.0 15 98 09/12/17 07:28 35 Labs Laboratory Tests Test 09/11/17 21:45 09/11/17 22:00 09/11/17 22:20 09/12/17 00:52 Blood Gas Puncture Site RT RADIAL Blood Gas Patient Temperature 98.6 Blood Gas HCO3 18 Blood Gas Base Excess -6.4 Blood Gas Oxygen Saturation 88 Arterial Blood pH 7.34 Arterial Blood Partial Pressure CO2 35 Arterial Blood Partial Pressure O2 68 Arterial Blood Oxygen Content 11.7 Arterial Blood Carboxyhemoglobin 1.4 Arterial Blood Methemoglobin 1.2 Blood Gas Hemoglobin 9.4 Oxygen Delivery Device VENTILATOR Blood Gas Ventilator Setting PRVC/AC Blood Gas Inspired Oxygen 35 Blood Urea Nitrogen 43 42 Creatinine 0.71 0.57 Random Glucose 186 160 Calcium Level 7.6 7.6 Sodium Level 146 148 Potassium Level 3.7 4.1 Chloride Level 113 115 Carbon Dioxide Level 18.5 19.3 Anion Gap 15 14 Estimat Glomerular Filtration Rate 111 143 Troponin I 0.21 White Blood Count 1.9 2.0 Red Blood Count 2.92 2.94 Hemoglobin 9.0 9.0 Hematocrit 28.7 28.5 Mean Corpuscular Volume 98.1 97.0 Mean Corpuscular Hemoglobin 30.7 30.7 Mean Corpuscular Hemoglobin Concent 31.3 31.6 Red Cell Distribution Width 19.5 19.2 Platelet Count 46 18 Mean Platelet Volume 11.4 10.2 Neutrophils (%) (Auto) 91.9 Lymphocytes (%) (Auto) 6.8 Monocytes (%) (Auto) 0.8 Eosinophils (%) (Auto) 0.4 Basophils (%) (Auto) 0.1 Neutrophils # (Auto) 1.8 Lymphocytes # (Auto) 0.1 Monocytes # (Auto) 0.0 Eosinophils # (Auto) 0.0 Basophils # (Auto) 0.0 CBC Comment AUTO DIFF AUTO DIFF Differential Total Cells Counted 100 100 Neutrophils % (Manual) 45 24 Band Neutrophils % 26 50 Lymphocytes % 6 3 Monocytes % 5 13 Neutrophils # (Manual) 1.7 1.7 Metamyelocytes 14 6 Myelocytes 2 4 Promyelocytes 2 Nucleated Red Blood Cells 17 26 Differential Comment FINAL DIFF MANUAL FINAL DIFF MANUAL Toxic Granulation 2+ 1+ Toxic Vacuolation PRESENT PRESENT Dohle Bodies PRESENT PRESENT Platelet Estimate LOW RARE Platelet Morphology Comment ENLARGED ENLARGED Polychromasia 3.8 Activated Partial Thromboplast Time 39.4 Total Protein 4.1 Albumin 0.8 Alkaline Phosphatase 380 Aspartate Amino Transf (AST/SGOT) 32 Alanine Aminotransferase (ALT/SGPT) 122 Total Bilirubin 0.6 Test 09/12/17 07:28 09/12/17 08:05 White Blood Count 2.4 Red Blood Count 2.95 Hemoglobin 9.0 Hematocrit 28.7 Mean Corpuscular Volume 97.4 Mean Corpuscular Hemoglobin 30.6 Mean Corpuscular Hemoglobin Concent 31.5 Red Cell Distribution Width 19.4 Platelet Count 17 Mean Platelet Volume 10.3 CBC Comment AUTO DIFF Differential Total Cells Counted 100 Neutrophils % (Manual) 21 Band Neutrophils % 28 Lymphocytes % 10 Monocytes % 13 Eosinophils % 1 Neutrophils # (Manual) 1.8 Metamyelocytes 20 Myelocytes 7 Nucleated Red Blood Cells 22 Differential Comment FINAL DIFF MANUAL Toxic Granulation 2+ Toxic Vacuolation PRESENT Dohle Bodies PRESENT Platelet Estimate LOW Platelet Morphology Comment ENLARGED Keratocytes OCC Prothrombin Time 17.2 Prothromb Time International Ratio 1.7 Fibrinogen GREATER THAN 860 Lactic Acid Level 3.9 Blood Gas Puncture Site RT RADIAL Blood Gas Patient Temperature 98.6 Blood Gas HCO3 17 Blood Gas Base Excess -8.5 Blood Gas Oxygen Saturation 88 Arterial Blood pH 7.29 Arterial Blood Partial Pressure CO2 36 Arterial Blood Partial Pressure O2 69 Arterial Blood Oxygen Content 11.3 Arterial Blood Carboxyhemoglobin 1.4 Arterial Blood Methemoglobin 1.1 Blood Gas Hemoglobin 9.0 Oxygen Delivery Device VENTILATOR Blood Gas Ventilator Setting PRVC/AC Blood Gas Inspired Oxygen 35 Date/Time Source Procedure Growth Status 09/12/17 07:28 Blood Peripheral Aerobic Blood Culture Pending Received 09/12/17 07:28 Blood Peripheral Anaerobic Blood Culture Pending Received 08/21/17 19:30 Stool Stool Stool Occult Blood (JABIER) - Final HEMOCCULT POSITIVE Complete 09/08/17 11:15 Sputum Endotracheal Gram Stain - Final Complete 09/08/17 11:15 Sputum Culture - Final Pseudomonas Aeruginosa Complete 09/08/17 11:15 Urine Catheterized Urine Urine Culture - Final Yudi Parapsilosis Complete Cardiovascular: Regular Lungs: Clear Abdomen: Non-distended, Non-tender Extremities: Other Narrative Exam proximal BLE mottled A/P Assessment and Plan 66 year old male with multiple medical problems; VDRF in need of tracheostomy -Plt now 17k -Patient remains too unstable for trach placement -Will postpone trach placement until more stable if family desires to continue aggressive care -Palliative Care following---family meeting today Freda Lai/Rotor Casting Machine Setup Operator ARNP Sep 12, 2017 12:19
[2017-09-12] MEDS ORDERED: MORPHINE SULFATE 4 MG/ML INJ IV PUSH PRN (12:30)
[2017-09-12] MEDS ORDERED: MORPHINE SULFATE 4 MG/ML INJ IV PUSH ONE (12:30)
[2017-09-12] MEDS ORDERED: LORazepam 2 MG/ML VIAL IV PUSH PRN ×3 (12:30)
[2017-09-12] MEDS ORDERED: MORPHINE SULFATE 8 MG/ML INJ IV PUSH PRN (12:30)
[2017-09-12] MEDS ORDERED: HYOSCYAMINE 0.5 MG/ML AMP IV PUSH PRN (12:30)
[2017-09-12] MEDS ORDERED: ACETAMINOPHEN 650 MG SUPP RECTAL PRN (12:30)
[2017-09-12] MEDS ORDERED: BISACODYL 10 MG SUPP RECTAL PRN (12:30)
[2017-09-12] MEDS ORDERED: FUROSEMIDE 20 MG/2 ML VIAL IV PUSH PRN (12:30)
--- NOTE | 2017-09-12 12:34 | HHI.HCPN ---
Reason for visit a. To assist with evaluation and management of symptoms including: dyspnea, pain b. To assist medical decision maker(s) with: better understanding of current medical conditions; weighing benefits/burdens of medical treatment options; making medical treatment decisions. . Subjective/Interval History Mr. Salcedo is a 66 yo male with hypoxic respiratory failure, sepsis. Follow-up visit for symptom management of pain and dyspnea as well as clarification of medical treatment goals. The blood cultures from yesterday are positive, and his hypotension has been profound. He is now on 3 pressors. He has developed vesicles on both edematous arms, and mottling on legs and his right foot. . Family/friend interactions I met with the patient's daughter, brother, and 2 grandchildren, along with biometrics technician Pardeep. They understand that the patient has worsened considerably in spite of maximum treatment and all of the artificial life support. We reviewed the patient's living will that he completed in 2014 where he indicated he would not want to be prolonged artificially if he had a terminal or end-stage condition. The daughter in the rest of the family understand that it is likely that he is very near , and they want to allow him to peacefully at this time. They have requested DNR status and withdrawal of life support. . Advance Directives Living Will: Copy in medical record Advance Directive Specifics Documented care wishes: Living will appears to be completed on April 19, 2014. Document can be viewed in patient's EMR. . Significant change in goals: Withdraw life support to allow natural . Objective Vital Signs Date Time Temp Pulse Resp B/P (MAP) Pulse Ox O2 Delivery O2 Flow Rate FiO2 09/12/17 11:21 124 99/65 09/12/17 11:03 125 101/61 09/12/17 10:48 100.0 126 15 101/62 98 09/12/17 10:23 126 128/68 09/12/17 07:39 117 157/74 09/12/17 07:28 94 35 09/12/17 06:00 98.8 127 37 84/58 (67) 98 09/12/17 06:00 127 09/12/17 04:17 97 35 09/12/17 04:00 120 09/12/17 04:00 99.0 120 24 95/58 (70) 97 09/12/17 04:00 35 09/12/17 03:13 123 78/54 09/12/17 02:00 125 09/12/17 01:33 130 81/50 09/12/17 00:18 100 35 09/12/17 00:00 98.9 128 31 98/52 (67) 100 09/12/17 00:00 35 09/12/17 00:00 128 09/12/17 00:00 98.9 09/11/17 22:14 120 95/54 09/11/17 22:00 122 09/11/17 21:59 121 09/11/17 21:54 168 09/11/17 21:52 172 09/11/17 21:50 168 09/11/17 21:48 164 09/11/17 21:46 165 09/11/17 21:45 166 09/11/17 21:44 164 09/11/17 21:40 172 09/11/17 21:35 128 09/11/17 21:35 18 09/11/17 21:34 132 68/41 09/11/17 21:30 131 09/11/17 21:15 131 09/11/17 21:00 129 09/11/17 20:18 129 80/53 09/11/17 20:06 91 35 09/11/17 20:00 99.5 129 44 91/52 (65) 90 09/11/17 20:00 129 09/11/17 20:00 35 09/11/17 18:00 129 09/11/17 16:08 96 35 09/11/17 16:00 35 09/11/17 16:00 114 09/11/17 16:00 100.6 114 38 106/58 (74) 96 09/11/17 15:16 105 104/55 09/11/17 14:00 93 09/11/17 12:40 99 35 Intake & Output 09/12/17 09/12/17 07:00 19:00 Intake Total 1394 ml 10 ml Output Total 550 ml Balance 844 ml 10 ml IV Total 720 ml Tube Feeding 174 ml Blood Product IV Normal Saline Flush 10 ml Other 500 ml Output Urine Total 550 ml Stool Total 0 ml Physical Exam CONSTITUTIONAL/GENERAL: This is an unresponsive, edematous male currently intubated on [facility] vent. TUBES/LINES/DRAINS: CVL, dobbhoff, ETT, Lopez, Rectal tube, Podus boot and SCD on right leg SKIN: Ecchymoses and abrasions on upper extremities; BUE weepy, some vesicles now. No wounds seen anteriorly. Skin temperature cool. Not diaphoretic. ENT: Nose without bleeding or purulent drainage. NECK: Trachea midline. Supple, nontender. No palpable thyroid enlargement or nodularity. CARDIOVASCULAR: Regular rate and rhythm without murmurs, gallops, or rubs. No JVD. Peripheral pulses symmetric. RESPIRATORY/CHEST: Remains intubated on mechanical ventilation. FiO2 35%. Bibasilar breath sounds diminished. GASTROINTESTINAL: Abdomen soft, non-tender, nondistended. No guarding. Bowel sounds present. Rectal tube with brown, soft-liquid stool GENITOURINARY: Without palpable bladder distension. Indwelling urinary cath draining cloudy, ana urine MUSCULOSKELETAL: Extremities without clubbing or cyanosis. Left BKA. Hands and arms swollen bilaterally. Right foot appears dusky, and there is mottling bilateral lower extremities. NEUROLOGICAL: Sedated on Versed and fentanyl. Unresponsive, does not follow commands PSYCHIATRIC: Unable to assess given clinical condition . Diagnostic Tests Laboratory Laboratory Tests Test 09/09/17 13:40 09/10/17 03:30 09/11/17 05:20 09/11/17 21:45 Blood Gas Puncture Site RT RADIAL RT RADIAL Blood Gas Patient Temperature 98.6 98.6 Blood Gas HCO3 23 mmol/L (22-26) 18 mmol/L (22-26) Blood Gas Base Excess 0.0 mmol/L (-2-2) -6.4 mmol/L (-2-2) Blood Gas Oxygen Saturation 91 % (90-100) 88 % (90-100) Arterial Blood pH 7.47 (7.380-7.420) 7.34 (7.380-7.420) Arterial Blood Partial Pressure CO2 32 mmHg (38-42) 35 mmHg (38-42) Arterial Blood Partial Pressure O2 70 mmHg (61-120) 68 mmHg (61-120) Arterial Blood Oxygen Content 12.8 Vol % (12.0-20.0) 11.7 Vol % (12.0-20.0) Arterial Blood Carboxyhemoglobin 1.4 % (0-4) 1.4 % (0-4) Arterial Blood Methemoglobin 1.2 % (0-2) 1.2 % (0-2) Blood Gas Hemoglobin 9.9 G/DL (12.0-16.0) 9.4 G/DL (12.0-16.0) Oxygen Delivery Device VENTILATOR VENTILATOR Blood Gas Ventilator Setting PRVC/AC Blood Gas Inspired Oxygen 35 % 35 % White Blood Count 5.8 TH/MM3 (4.0-11.0) 3.6 TH/MM3 (4.0-11.0) Red Blood Count 3.51 MIL/MM3 (4.50-5.90) 2.86 MIL/MM3 (4.50-5.90) Hemoglobin 10.9 GM/DL (13.0-17.0) 9.0 GM/DL (13.0-17.0) Hematocrit 33.8 % (39.0-51.0) 27.5 % (39.0-51.0) Mean Corpuscular Volume 96.1 FL (80.0-100.0) 96.0 FL (80.0-100.0) Mean Corpuscular Hemoglobin 30.9 PG (27.0-34.0) 31.5 PG (27.0-34.0) Mean Corpuscular Hemoglobin Concent 32.1 % (32.0-36.0) 32.8 % (32.0-36.0) Red Cell Distribution Width 19.0 % (11.6-17.2) 19.0 % (11.6-17.2) Platelet Count 92 TH/MM3 (150-450) 77 TH/MM3 (150-450) Mean Platelet Volume 11.9 FL (7.0-11.0) 12.1 FL (7.0-11.0) Neutrophils (%) (Auto) 93.2 % (16.0-70.0) 94.6 % (16.0-70.0) Lymphocytes (%) (Auto) 2.4 % (9.0-44.0) 3.9 % (9.0-44.0) Monocytes (%) (Auto) 4.2 % (0.0-8.0) 1.4 % (0.0-8.0) Eosinophils (%) (Auto) 0.1 % (0.0-4.0) 0.0 % (0.0-4.0) Basophils (%) (Auto) 0.1 % (0.0-2.0) 0.1 % (0.0-2.0) Neutrophils # (Auto) 5.4 TH/MM3 (1.8-7.7) 3.4 TH/MM3 (1.8-7.7) Lymphocytes # (Auto) 0.1 TH/MM3 (1.0-4.8) 0.1 TH/MM3 (1.0-4.8) Monocytes # (Auto) 0.2 TH/MM3 (0-0.9) 0.0 TH/MM3 (0-0.9) Eosinophils # (Auto) 0.0 TH/MM3 (0-0.4) 0.0 TH/MM3 (0-0.4) Basophils # (Auto) 0.0 TH/MM3 (0-0.2) 0.0 TH/MM3 (0-0.2) CBC Comment AUTO DIFF AUTO DIFF Differential Total Cells Counted 100 100 Neutrophils % (Manual) 54 % (16-70) 46 % (16-70) Band Neutrophils % 31 % (0-6) 39 % (0-6) Lymphocytes % 5 % (9-44) 2 % (9-44) Monocytes % 3 % (0-8) 4 % (0-8) Neutrophils # (Manual) 5.3 TH/MM3 (1.8-7.7) 3.4 TH/MM3 (1.8-7.7) Metamyelocytes 7 % (0-1) 8 % (0-1) Nucleated Red Blood Cells 7 /100 WBC (0-0) Differential Comment FINAL DIFF MANUAL FINAL DIFF MANUAL Atypical Lymphocytes % (0-0) Platelet Estimate LOW (NORMAL) LOW (NORMAL) Platelet Morphology Comment ENLARGED (NORMAL) ENLARGED (NORMAL) Polychromasia 3.0 % (0.0-1.9) Activated Partial Thromboplast Time 21.6 SEC (24.3-30.1) 29.9 SEC (24.3-30.1) Blood Urea Nitrogen 51 MG/DL (7-18) 41 MG/DL (7-18) Creatinine 0.58 MG/DL (0.60-1.30) 0.46 MG/DL (0.60-1.30) Random Glucose 216 MG/DL (74-106) 189 MG/DL (74-106) Total Protein 4.6 GM/DL (6.4-8.2) 4.4 GM/DL (6.4-8.2) Albumin 1.5 GM/DL (3.4-5.0) 1.1 GM/DL (3.4-5.0) Calcium Level 7.9 MG/DL (8.5-10.1) 7.6 MG/DL (8.5-10.1) Alkaline Phosphatase 1213 U/L (45-117) 623 U/L (45-117) Aspartate Amino Transf (AST/SGOT) 868 U/L (15-37) 56 U/L (15-37) Alanine Aminotransferase (ALT/SGPT) 774 U/L (12-78) 263 U/L (12-78) Total Bilirubin 0.6 MG/DL (0.2-1.0) 0.6 MG/DL (0.2-1.0) Sodium Level 147 MEQ/L (136-145) 149 MEQ/L (136-145) Potassium Level 3.9 MEQ/L (3.5-5.1) 3.6 MEQ/L (3.5-5.1) Chloride Level 114 MEQ/L (98-107) 115 MEQ/L (98-107) Carbon Dioxide Level 21.4 MEQ/L (21.0-32.0) 22.6 MEQ/L (21.0-32.0) Anion Gap 12 MEQ/L (5-15) 11 MEQ/L (5-15) Estimat Glomerular Filtration Rate 141 ML/MIN (>89) 184 ML/MIN (>89) Myelocytes 1 % (0-0) Toxic Granulation 1+ (NORMAL) Dohle Bodies PRESENT (NONE SEEN) Test 09/11/17 22:00 09/11/17 22:20 09/12/17 00:52 09/12/17 07:28 Blood Urea Nitrogen 43 MG/DL (7-18) 42 MG/DL (7-18) Creatinine 0.71 MG/DL (0.60-1.30) 0.57 MG/DL (0.60-1.30) Random Glucose 186 MG/DL (74-106) 160 MG/DL (74-106) Calcium Level 7.6 MG/DL (8.5-10.1) 7.6 MG/DL (8.5-10.1) Sodium Level 146 MEQ/L (136-145) 148 MEQ/L (136-145) Potassium Level 3.7 MEQ/L (3.5-5.1) 4.1 MEQ/L (3.5-5.1) Chloride Level 113 MEQ/L (98-107) 115 MEQ/L (98-107) Carbon Dioxide Level 18.5 MEQ/L (21.0-32.0) 19.3 MEQ/L (21.0-32.0) Anion Gap 15 MEQ/L (5-15) 14 MEQ/L (5-15) Estimat Glomerular Filtration Rate 111 ML/MIN (>89) 143 ML/MIN (>89) Troponin I 0.21 NG/ML (0.02-0.05) White Blood Count 1.9 TH/MM3 (4.0-11.0) 2.0 TH/MM3 (4.0-11.0) 2.4 TH/MM3 (4.0-11.0) Red Blood Count 2.92 MIL/MM3 (4.50-5.90) 2.94 MIL/MM3 (4.50-5.90) 2.95 MIL/MM3 (4.50-5.90) Hemoglobin 9.0 GM/DL (13.0-17.0) 9.0 GM/DL (13.0-17.0) 9.0 GM/DL (13.0-17.0) Hematocrit 28.7 % (39.0-51.0) 28.5 % (39.0-51.0) 28.7 % (39.0-51.0) Mean Corpuscular Volume 98.1 FL (80.0-100.0) 97.0 FL (80.0-100.0) 97.4 FL (80.0-100.0) Mean Corpuscular Hemoglobin 30.7 PG (27.0-34.0) 30.7 PG (27.0-34.0) 30.6 PG (27.0-34.0) Mean Corpuscular Hemoglobin Concent 31.3 % (32.0-36.0) 31.6 % (32.0-36.0) 31.5 % (32.0-36.0) Red Cell Distribution Width 19.5 % (11.6-17.2) 19.2 % (11.6-17.2) 19.4 % (11.6-17.2) Platelet Count 46 TH/MM3 (150-450) 18 TH/MM3 (150-450) 17 TH/MM3 (150-450) Mean Platelet Volume 11.4 FL (7.0-11.0) 10.2 FL (7.0-11.0) 10.3 FL (7.0-11.0) Neutrophils (%) (Auto) 91.9 % (16.0-70.0) Lymphocytes (%) (Auto) 6.8 % (9.0-44.0) Monocytes (%) (Auto) 0.8 % (0.0-8.0) Eosinophils (%) (Auto) 0.4 % (0.0-4.0) Basophils (%) (Auto) 0.1 % (0.0-2.0) Neutrophils # (Auto) 1.8 TH/MM3 (1.8-7.7) Lymphocytes # (Auto) 0.1 TH/MM3 (1.0-4.8) Monocytes # (Auto) 0.0 TH/MM3 (0-0.9) Eosinophils # (Auto) 0.0 TH/MM3 (0-0.4) Basophils # (Auto) 0.0 TH/MM3 (0-0.2) CBC Comment AUTO DIFF AUTO DIFF AUTO DIFF Differential Total Cells Counted 100 100 100 Neutrophils % (Manual) 45 % (16-70) 24 % (16-70) 21 % (16-70) Band Neutrophils % 26 % (0-6) 50 % (0-6) 28 % (0-6) Lymphocytes % 6 % (9-44) 3 % (9-44) 10 % (9-44) Monocytes % 5 % (0-8) 13 % (0-8) 13 % (0-8) Neutrophils # (Manual) 1.7 TH/MM3 (1.8-7.7) 1.7 TH/MM3 (1.8-7.7) 1.8 TH/MM3 (1.8-7.7) Metamyelocytes 14 % (0-1) 6 % (0-1) 20 % (0-1) Myelocytes 2 % (0-0) 4 % (0-0) 7 % (0-0) Promyelocytes 2 % (0-0) Nucleated Red Blood Cells 17 /100 WBC (0-0) 26 /100 WBC (0-0) 22 /100 WBC (0-0) Differential Comment FINAL DIFF MANUAL FINAL DIFF MANUAL FINAL DIFF MANUAL Toxic Granulation 2+ (NORMAL) 1+ (NORMAL) 2+ (NORMAL) Toxic Vacuolation PRESENT (NONE SEEN) PRESENT (NONE SEEN) PRESENT (NONE SEEN) Dohle Bodies PRESENT (NONE SEEN) PRESENT (NONE SEEN) PRESENT (NONE SEEN) Platelet Estimate LOW (NORMAL) RARE (NORMAL) LOW (NORMAL) Platelet Morphology Comment ENLARGED (NORMAL) ENLARGED (NORMAL) ENLARGED (NORMAL) Polychromasia 3.8 % (0.0-1.9) Activated Partial Thromboplast Time 39.4 SEC (24.3-30.1) Total Protein 4.1 GM/DL (6.4-8.2) Albumin 0.8 GM/DL (3.4-5.0) Alkaline Phosphatase 380 U/L (45-117) Aspartate Amino Transf (AST/SGOT) 32 U/L (15-37) Alanine Aminotransferase (ALT/SGPT) 122 U/L (12-78) Total Bilirubin 0.6 MG/DL (0.2-1.0) Eosinophils % 1 % (0-4) Keratocytes OCC (NORMAL) Prothrombin Time 17.2 SEC (9.8-11.6) Prothromb Time International Ratio 1.7 RATIO Fibrinogen GREATER THAN 860 mg/dL Lactic Acid Level 3.9 mmol/L (0.4-2.0) Test 09/12/17 08:05 Blood Gas Puncture Site RT RADIAL Blood Gas Patient Temperature 98.6 Blood Gas HCO3 17 mmol/L (22-26) Blood Gas Base Excess -8.5 mmol/L (-2-2) Blood Gas Oxygen Saturation 88 % (90-100) Arterial Blood pH 7.29 (7.380-7.420) Arterial Blood Partial Pressure CO2 36 mmHg (38-42) Arterial Blood Partial Pressure O2 69 mmHg (61-120) Arterial Blood Oxygen Content 11.3 Vol % (12.0-20.0) Arterial Blood Carboxyhemoglobin 1.4 % (0-4) Arterial Blood Methemoglobin 1.1 % (0-2) Blood Gas Hemoglobin 9.0 G/DL (12.0-16.0) Oxygen Delivery Device VENTILATOR Blood Gas Ventilator Setting PRVC/AC Blood Gas Inspired Oxygen 35 % Result Diagram: 09/12/17 0728 09/12/17 0052 Microbiology Microbiology Date/Time Source Procedure Growth Status 09/12/17 07:28 Blood Peripheral Aerobic Blood Culture Pending Received 09/12/17 07:28 Blood Peripheral Anaerobic Blood Culture Pending Received 09/10/17 12:20 Blood Peripheral Aerobic Blood Culture - Preliminary Pseudomonas Species Resulted 09/10/17 12:20 Anaerobic Blood Culture - Preliminary Gram Positive Cocci Resulted 09/10/17 12:15 Blood Peripheral Aerobic Blood Culture - Preliminary Gram Negative Kenji Resulted 09/10/17 12:15 Anaerobic Blood Culture - Preliminary Gram Positive Cocci Resulted Imaging Last Impressions Chest X-Ray 09/12/17 0000 Signed Impressions: CONCLUSION: No significant change. Upper Extremity Ultrasound 09/10/17 0000 Signed Impressions: CONCLUSION: 1. The study is negative for bilateral upper extremity deep venous thrombosis. Liver Ultrasound 09/09/17 0000 Signed Impressions: CONCLUSION: 1. There is some thickening of the gallbladder wall at 4 mm. There is a trace of fluid adjacent to the gallbladder. This can be seen with chronic gallbladder disease. No definite gallstones or biliary tract obstruction. 2. Mild prominence of the pancreatic duct at 2 mm. 3. 9 mm right renal cyst. Abdomen X-Ray 09/03/17 0000 Signed Impressions: CONCLUSION: Nasogastric tube in good position. Nonspecific bowel gas pattern. CT Angiography 08/13/17 0000 Signed Impressions: Service Date/Time: Sunday, August 13, 2017 07:25 - CONCLUSION: 1. No CT evidence for pulmonary embolism as questioned. 2. Moderate to severe upper lobe predominant centrilobular emphysema. 3. Patchy bibasilar groundglass opacities likely reflecting atelectasis although differential considerations include aspiration. 4. Multiple 4-6mm bilateral groundglass and solid nodules, likely infectious/inflammatory. Recommend followup CT examination in approximately 6 months per 2017 Fleischner criteria (6mm nodule). Steve Barajas MD Procedures 08/16/2017: Intubation/reintubation 08/25/2017: Extubation 09/01/2017: Reintubation . Assessment and Plan Disease Oriented Problem List: (1) COPD (chronic obstructive pulmonary disease) Comment: End-stage (2) Peripheral vascular disease (3) Pseudomonas pneumonia (4) COPD exacerbation (5) Cardiomyopathy (6) DM type 2 (diabetes mellitus, type 2) (7) CAD (coronary artery disease) (8) Hyperlipidemia (9) Paroxysmal atrial fibrillation Symptom Scale: (1) Dyspnea 0-10 Scale: Unable to quantify (2) Pain 0-10 Scale: Unable to quantify Pertinent Non-Medical Issues Psychosocial: Patient is originally from [place]. Patient has been for many years. He has 1 adult daughter (Poly) and 2 grand-children. Grandson ( Tristin) and Granddaughter (Deo). Granddaughter (Deo) identifies as male and is to [facility]. Patient's highest education level is eighth grade. He is unemployed; last working in 2010 as a [employer]. Spiritual: Holiness shelbi Legal: Per [place] statutes, in the absence of written advanced directives health care proxy decision making falls to the patient's daughter (Poly). Ethical issues impacting care: No known ethical issues impacting care at this time. . Important Contacts Poly Salcedo, daughter: [phone] Tristin Salcedo, grandson: [phone] Deo Salcedo, granddaughter - identifies as male : [phone] ( to [facility]) Juan Carlos Salcedo, brother: [phone] . Prognosis Patient is a 66 yo male with significant lung disease resulting in 4 hospitalizations in the past 6 months. He is currently vent dependent and unable to tolerate CPAP trails; given his advanced lung disease it will be difficult to wean him off the ventilator without a tracheostomy. Given patient' s complex medical history, he will be high risk for ongoing complications and decline. . Code Status: No Code Plan * DO NOT RESUSCITATE * Decision-making: Patient lacks capacity for decision-making; daughter is proxy decision-maker. * I met with the patient's daughter, brother, and 2 grandchildren, along with biometrics technician Tim. They understand that the patient has worsened considerably in spite of maximum treatment and all of the artificial life support. We reviewed the patient's living will that he completed in 2014 where he indicated he would not want to be prolonged artificially if he had a terminal or end-stage condition. The daughter in the rest of the family understand that it is likely that he is very near , and they want to allow him to peacefully at this time. They have requested DNR status and withdrawal of life support. * Symptom management: Comfort meds will be provided, and the family has stressed it is very important for them to know that he will not suffer. * Palliative care will continue to follow this patient throughout his hospitalization.. . Time Spent Total Floor Time (mins): 47 Face to Face Time (mins): 20 >50% Counseling/Coord of Care: Yes (d/w Dr. Mckeon) Attestation To help prompt me to consider important information that might be impacting today's encounter and assessment, information from prior notes written by myself or my colleagues may have been "brought forward" into today's note. My signature on this note, however, is an attestation that I personally performed the exam, history, and/or decision-making noted today, and, unless otherwise indicated, the interactions with patient, family, and staff as well as the review of records all occurred today. I also attest that the listed assessment and stated plan reflect my best clinical judgment today based on the combination of historical information, prior notes, and today's exam/ interactions. When time spent is documented, it refers only to time spent today by the signer, or if indicated, combined time spent today by collaborating physician/nurse practitioner. Lauren Borjas MD Sep 12, 2017 12:34
--- NOTE | 2017-09-12 14:39 | MD ---
cc: Jemima Brennan MD DATE OF DISCHARGE: HOSPITAL COURSE: The patient is a 66-year-old male with past medical history of COPD, who presented to [facility] ED on 08/13 for shortness of breath and altered mental status from a local longterm. He was intubated and placed on full mechanical ventilation. The patient underwent a CT scan of the chest, which was negative for a pulmonary embolism; however, it showed severe emphysematous changes with ground glass opacities. He was also placed on a fentanyl and Versed infusion for sedation. On 08/25, he was extubated and was initially transferred to the hospitalist service. Critical care medicine was reconsulted on 09/01 for worsening respiratory status and he was subsequently intubated and placed on mechanical ventilation. During his hospital stay, patient went into SVT, was given Lopressor and adenosine. He was followed by cardiology service and was placed on Rythmol [address] Gary from cardiology service. He was being treated for a MRSA and Pseudomonas pneumonia in addition to a urinary tract infection. On 09/11, patient became hypotensive, requiring multiple pressors to maintain MAP greater than 65 mmHg. Also, he was placed on stress dose steroids. He had an echo on 08/15, which showed an EF of 50-55%. The patient also was found to have elevated liver enzymes and had ultrasound of the liver, which showed some thickening of the gallbladder wall at 4 mm and trace fluid adjacent to the gallbladder. No definite gallstones or biliary tract obstruction. The patient also was placed on free water for hypernatremia. He was seen by infectious disease service. The patient was found to have gram-negative bacteremia and fungemia. He was on broad spectrum antibiotics. The patient was also seen by ophthalmology service and had no evidence of any endophthalmitis. On 09/12, patient had severe thrombocytopenia with a platelet count of 17 and underwent transfusion 1 unit of plateletpheresis. He also had significant elevation in liver enzymes. The patient was also kept on sliding scale insulin for glycemic control. He had a Doppler ultrasound of the upper extremities, which was negative for DVT. The patient was critically ill with respiratory failure, SVT, septic shock, on multiple pressors, Gram-negative bacteremia, fungemia and DIC. Palliative care met with family, and they elected to withdraw life support and to transition to comfort care. He on 09/12. MD FERNANDO Perez/BALBINA , 02:09 PM , 02:38 PM
[2017-09-12] MEDS ORDERED: LORazepam 2 MG/ML VIAL IV PUSH SCH (16:00)
[2017-09-12] MEDS ORDERED: MORPHINE SULFATE 4 MG/ML INJ IV PUSH SCH (16:00)
--- NOTE | 2017-09-12 20:16 | EKG ---
Date Performed: 09/11/2017 Time Performed: 12:53:44 PTAGE: 66 years EKG: Superventricular rythm but the EKG has too much artifact to make any rythm determination. R ight Bundle branch block with possible right ventricular hypertrophy non-specific ST-T wave changes. Since previous tracing,The right bundle branch block is new. The low limb voltage persists. there is too much artifact in the present tracing for any further comparison. Abnormal ECG NO PREVIOUS TRACING DOCTOR: Nina Masters Interpretating Date/Time 09/12/2017 20:14:59
--- NOTE | 2017-09-12 20:17 | EKG ---
Date Performed: 09/11/2017 Time Performed: 22:01:14 PTAGE: 66 years EKG: Atrial fibrillation with rapid ventricular response Indeterminate axis Right bundle branch block Generalized low QRS voltages Since previous tracing, patient has developed atrial fibrillation with a rapid ventricular response, but there is otherwise no gross serial change when allowing for th e artifact on the previous tracing Abnormal ECG PREVIOUS TRACING : 09/11/2017 12.53 DOCTOR: Nina Masters Interpretating Date/Time 09/12/2017 20:16:45
--- NOTE | 2017-09-12 20:19 | EKG ---
Date Performed: 09/12/2017 Time Performed: 06:49:04 PTAGE: 66 years EKG: Probable atrial tachycardia. Left axis deviation RBBB with left anterior fascicular block P ossible inferior infarct - age undetermined Generalized low QRS voltages The rythm is probably Sinus rythm Since previous tracing,the atrial fibrillation has resolved. The low limb voltage persists. The re is otherwise no significant serial change. Abnormal ECG NO PREVIOUS TRACING DOCTOR: Nina Masters Interpretating Date/Time 09/12/2017 20:18:45
--- NOTE | 2017-09-13 16:00 | EKG ---
Date Performed: 09/12/2017 Time Performed: 07:27:08 PTAGE: 66 years EKG: Sinus rhythm with bigeminal PVCs. Right axis deviation Possible septal infarct - age undetermined Inferior/latera l T wave changes are nonspecific Low QRS voltages in precordial leads Abnormal ECG Compared to PREVIOUS TRACING , right bundle branch is less prominent. There are now frequent PVCs pre sent. Heart rate has slowed significantly. There is beginnings of an acute anterior infarction. ST el evation in leads V3, V4, and V5. PREVIOUS TRACIN09/12/2017 06.49.04 DOCTOR: Malcolm Duron Interpretating Date/Time 09/13/2017 16:00:26
--- NOTE | 2017-09-13 16:02 | EKG ---
Date Performed: 09/12/2017 Time Performed: 07:59:18 PTAGE: 66 years EKG: Sinus rhythm . Right axis deviation ANTERIOR INFARCT - POSSIBLY ACUTE Right ventricular hypertrophy Latera l T wave changes may be due to myocardial ischemia Low QRS voltages in precordial leads Abnormal ECG Compared to PREVIOUS TRACING , previously present PVCs are no longer present. There is now ST elevati on anteriorly, consistent with acute anterior infarction. Clinical correlation strongly recommended. PREVIOUS TRACIN09/12/2017 06.49 DOCTOR: Malcolm Duron Interpretating Date/Time 09/13/2017 15:59:33
== END 2017-09-12 13:46 | disposition expired | DRG 207 ==
LOC: NEPC 03:59 → NEDA 05:08 → HIME 07:40 → HIMN 08-21 13:35 → HIME 08-21 13:37 → HIMW 08-23 18:45 → N04A 08-31 22:07 → HIMN 09-01 13:25
PROVIDERS: ADMIT Internal Medicine Critical Care Medicine; ATTEND Internal Medicine Critical Care Medicine
PROC: 0T9B70Z Drainage of Bladder with Drainage Device, Via Natural or Artificial Opening (ICD-10-PCS; principal; 2017-08-13)
PROC: 5A1945Z Respiratory Ventilation, 24-96 Consecutive Hours (ICD-10-PCS; 2017-08-13)
PROC: 5A1955Z Respiratory Ventilation, Greater than 96 Consecutive Hours (ICD-10-PCS; 2017-08-16)
PROC: 0BH17EZ Insertion of Endotracheal Airway into Trachea, Via Natural or Artificial Opening (ICD-10-PCS; 2017-08-16)
PROC: 30233N1 Transfusion of Nonautologous Red Blood Cells into Peripheral Vein, Percutaneous Approach (ICD-10-PCS; 2017-08-23)
PROC: 5A1955Z Respiratory Ventilation, Greater than 96 Consecutive Hours (ICD-10-PCS; 2017-09-01)
PROC: 0BH17EZ Insertion of Endotracheal Airway into Trachea, Via Natural or Artificial Opening (ICD-10-PCS; 2017-09-01)
PROC: 02HV33Z Insertion of Infusion Device into Superior Vena Cava, Percutaneous Approach (ICD-10-PCS; 2017-09-08)
DX: J96.21 Acute and chronic respiratory failure with hypoxia (principal); R65.21 Severe sepsis with septic shock; I21.4 Non-ST elevation (NSTEMI) myocardial infarction; D65 Disseminated intravascular coagulation [defibrination syndrome]; J69.0 Pneumonitis due to inhalation of food and vomit; G93.41 Metabolic encephalopathy; A41.9 Sepsis, unspecified organism; I11.0 Hypertensive heart disease with heart failure; J15.1 Pneumonia due to Pseudomonas; J15.212 Pneumonia due to Methicillin resistant Staphylococcus aureus; I47.2 Ventricular tachycardia; E87.0 Hyperosmolality and hypernatremia; E46 Unspecified protein-calorie malnutrition; J44.1 Chronic obstructive pulmonary disease with (acute) exacerbation; R04.2 Hemoptysis; J44.0 Chronic obstructive pulmonary disease with (acute) lower respiratory infection; K92.1 Melena; B49 Unspecified mycosis; J95.851 Ventilator associated pneumonia; N39.0 Urinary tract infection, site not specified; Z99.11 Dependence on respirator [ventilator] status; I47.1 Supraventricular tachycardia; E11.9 Type 2 diabetes mellitus without complications; D64.9 Anemia, unspecified; I50.9 Heart failure, unspecified; I48.0 Paroxysmal atrial fibrillation; E78.5 Hyperlipidemia, unspecified; Z85.828 Personal history of other malignant neoplasm of skin; M19.041 Primary osteoarthritis, right hand; I25.119 Atherosclerotic heart disease of native coronary artery with unspecified angina pectoris; Z86.73 Personal history of transient ischemic attack (TIA), and cerebral infarction without residual deficits; Z87.442 Personal history of urinary calculi; Z95.820 Peripheral vascular angioplasty status with implants and grafts; Z89.512 Acquired absence of left leg below knee; Z95.1 Presence of aortocoronary bypass graft; Z80.1 Family history of malignant neoplasm of trachea, bronchus and lung; Z80.0 Family history of malignant neoplasm of digestive organs; F17.210 Nicotine dependence, cigarettes, uncomplicated; Z79.01 Long term (current) use of anticoagulants; Z79.84 Long term (current) use of oral hypoglycemic drugs; G47.33 Obstructive sleep apnea (adult) (pediatric); Z85.9 Personal history of malignant neoplasm, unspecified; Z51.5 Encounter for palliative care; M54.9 Dorsalgia, unspecified; G89.29 Other chronic pain; M50.123 Cervical disc disorder at C6-C7 level with radiculopathy; B95.62 Methicillin resistant Staphylococcus aureus infection as the cause of diseases classified elsewhere; Y84.8 Other medical procedures as the cause of abnormal reaction of the patient, or of later complication, without mention of misadventure at the time of the procedure; N28.1 Cyst of kidney, acquired; Z78.9 Other specified health status; Z66 Do not resuscitate; E87.5 Hyperkalemia
CPT/HCPCS: 31500; 36430; 36556; 36600; 51702; 71045; 71275; 74018; 76705; 76937; 77001; 80048; 80053; 80074; 80202; 81001; 82272; 82550; 82552; 82805; 82948; 83605; 83690; 83735; 83880; 84100; 84132; 84155; 84295; 84484; 85007; 85014; 85018; 85025; 85027; 85384; 85610; 85730; 86022; 86403; 86850; 86900; 86901; 86920; 87040; 87070; 87077; 87086; 87106; 87147; 87186; 87205; 87493; 87641; 93005; 93306; 93970; 94002; 94003; 94150; 94640; 94664; 94667; 94668; 96374; 96375; C9113; J0153; J0610; J0692; J1160; J1265; J1644; J1650; J1720; J1815; J1940; J1956; J1980; J2020; J2060; J2185; J2248; J2250; J2270; J2370; J2543; J2920; J2930; J3010; J3370; J3475; J3480; J7030; J7040; J7050; J7060; J7512; J7626; P9016; P9035; Q9967